=== PATIENT | male | born 1950 | race Caucasian/White ===

== ENCOUNTER 2023-06-05 09:55 | Outpatient (OUT) | payer MEDICARE, SELFPAY ==
[2023-06-05 12:44] LABS: Alanine Aminotransferase 24 U/L (16-63); Albumin Globulin Ratio 1.3; Alkaline Phosphatase 64 U/L (46-116); Aspartate Amino Transferase 17 U/L (15-37); Bilirubin Direct 0.1 mg/dL (0.0-0.2); Bilirubin Total 0.4 mg/dL (0.2-1.0); Chol HDL Ratio 2.3; Cholesterol 109 mg/dL (<=200); HDL Cholesterol 47 mg/dL (40-60); LDL Cholesterol Calculated 45.4 mg/dL; Triglycerides 83 mg/dL (<=150); VLDL CHOLESTEROL 16.6 mg/dL
== END 2023-06-05 09:56 | disposition home or self-care (01) ==
LOC: LAB 09:58
PROVIDERS: PCP Internal Medicine; Visit Provider Internal Medicine Interventional Cardiology
DX: E78.2 Mixed hyperlipidemia (principal)
CPT/HCPCS: 36415; 80061; 80076

== ENCOUNTER 2023-06-05 10:10 | Outpatient (OUT) | payer MEDICARE, SELFPAY ==
[2023-06-05 12:27] LABS: Anion Gap 12.9; BUN Creatinine Ratio 17.9; Calcium 8.7 mg/dL (8.5-10.1); Carbon Dioxide 25.2 mmol/L (21.0-32.0); Chloride 105 mmol/L (98-107); Estimated GFR (African America 44 (>=60); Estimated GFR (Non-African Ame 36 (>=60); Glucose 142 mg/dL (74-106); Potassium 5.1 mmol/L (3.5-5.1); Sodium 138 mmol/L (136-145)
== END 2023-06-05 10:11 | disposition home or self-care (01) ==
LOC: LAB 10:11
PROVIDERS: PCP Internal Medicine
DX: E78.2 Mixed hyperlipidemia (principal); N41.1 Chronic prostatitis
CPT/HCPCS: 36415; 80048; 80061; 80076

== ENCOUNTER 2023-07-19 08:06 | Outpatient (OUT) | payer MEDICARE, SELFPAY ==
[2023-07-19 08:50] LABS: Basophils Absolute Auto 0.1 10^3/uL (0.0-0.1); Basophils Percent Auto 1.2 % (0.2-2.0); Eosinophils Absolute Auto 0.5 10^3/uL (0.0-0.7); Eosinophils Percent Auto 5.9 % (0.9-7.0); Hematocrit 41.6 % (42.0-54.0); Hemoglobin 13.3 g/dL (14.0-18.0); Immature Granulocytes Abs Auto 0.03 10^3/uL (0.00-0.03); Immature Granulocytes Pct Auto 0.4 % (0.0-0.5); Lymphocytes Absolute Auto 2.3 10^3/uL (1.2-3.8); Mean Corpuscular Hemoglobin 30.1 pg (25.9-34.0); Mean Corpuscular Volume 94.1 fL (80.0-94.0); Mean Platelet Volume 11.2 fL (9.5-13.5); Monocytes Absolute Auto 0.8 10^3/uL (0.3-0.8); Monocytes Percent Auto 9.3 % (1.7-12.0); Neutrophils Absolute Auto 4.5 10^3/uL (1.4-6.5); Neutrophils Percent Auto 55.2 % (43.0-75.0); Platelet Count 188 10^3/uL (150-450); Red Blood Count 4.42 10^6/uL (4.70-6.10); Red Cell Distribution Width 14.7 % (11.0-15.0); White Blood Count 8.2 10^3/uL (4.0-11.0)
[2023-07-19 08:53] LABS: Microalbumin Urine Random 2.5 mg/dL (<=30.0)
[2023-07-19 09:01] LABS: Estimated Average Glucose 131 mg/dL; Glycohemoglobin A1C 6.2 % (4.5-6.2)
[2023-07-19 10:23] LABS: Alanine Aminotransferase 23 U/L (16-63); Anion Gap 7.6; BUN Creatinine Ratio 21.8; Calcium 8.6 mg/dL (8.5-10.1); Carbon Dioxide 24.6 mmol/L (21.0-32.0); Chloride 109 mmol/L (98-107); Chol HDL Ratio 2.9; Cholesterol 116 mg/dL (<=200); Estimated GFR (African America 50 (>=60); Estimated GFR (Non-African Ame 41 (>=60); Glucose 156 mg/dL (74-106); HDL Cholesterol 40 mg/dL (40-60); Potassium 5.2 mmol/L (3.5-5.1); Sodium 136 mmol/L (136-145); Triglycerides 151 mg/dL (<=150); VLDL CHOLESTEROL 30.2 mg/dL
== END 2023-07-19 08:07 | disposition home or self-care (01) ==
LOC: LAB 08:17
PROVIDERS: PCP Internal Medicine; Visit Provider Internal Medicine
DX: E11.65 Type 2 diabetes mellitus with hyperglycemia (principal); E78.2 Mixed hyperlipidemia; Z79.899 Other long term (current) drug therapy; I25.10 Atherosclerotic heart disease of native coronary artery without angina pectoris; I10 Essential (primary) hypertension
CPT/HCPCS: 36415; 80048; 80061; 82043; 83036; 84460; 85025

== ENCOUNTER 2023-08-30 08:39 | Outpatient (OUT) | payer MEDICARE, SELFPAY ==
[2023-08-30 09:12] LABS: Basophils Absolute Auto 0.1 10^3/uL (0.0-0.1); Basophils Percent Auto 1.1 % (0.2-2.0); Eosinophils Absolute Auto 0.5 10^3/uL (0.0-0.7); Eosinophils Percent Auto 6.4 % (0.9-7.0); Hematocrit 39.8 % (42.0-54.0); Hemoglobin 12.9 g/dL (14.0-18.0); Immature Granulocytes Abs Auto 0.02 10^3/uL (0.00-0.03); Immature Granulocytes Pct Auto 0.3 % (0.0-0.5); Lymphocytes Absolute Auto 2.1 10^3/uL (1.2-3.8); Lymphocytes Percent Auto 29.1 % (20.5-60.0); Mean Corpuscular HGB Conc 32.4 g/dL (29.9-35.2); Mean Corpuscular Hemoglobin 30.4 pg (25.9-34.0); Mean Corpuscular Volume 93.6 fL (80.0-94.0); Mean Platelet Volume 11.7 fL (9.5-13.5); Monocytes Absolute Auto 0.7 10^3/uL (0.3-0.8); Monocytes Percent Auto 9.9 % (1.7-12.0); Neutrophils Absolute Auto 3.8 10^3/uL (1.4-6.5); Neutrophils Percent Auto 53.2 % (43.0-75.0); Platelet Count 184 10^3/uL (150-450); Red Blood Count 4.25 10^6/uL (4.70-6.10); Red Cell Distribution Width 13.5 % (11.0-15.0); White Blood Count 7.2 10^3/uL (4.0-11.0)
[2023-08-30 09:22] LABS: Anion Gap 11.6; BUN Creatinine Ratio 21.1; Calcium 8.9 mg/dL (8.5-10.1); Carbon Dioxide 28.9 mmol/L (21.0-32.0); Chloride 104 mmol/L (98-107); Estimated GFR (African America 55 (>=60); Estimated GFR (Non-African Ame 45 (>=60); Glucose 145 mg/dL (74-106); Potassium 4.5 mmol/L (3.5-5.1); Sodium 140 mmol/L (136-145)
[2023-08-30 10:40] LABS: Prostate Specific Antigen Scrn 2.41 ng/mL (<=4.00)
[2023-09-06 21:08] LABS: Free Testosterone(Direct) 4.6 pg/mL (6.6-18.1); Testosterone 374 ng/dL (264-916)
== END 2023-08-30 08:40 | disposition home or self-care (01) ==
LOC: LAB 08:40
PROVIDERS: PCP Internal Medicine
DX: N40.1 Benign prostatic hyperplasia with lower urinary tract symptoms (principal); N41.1 Chronic prostatitis; Z12.5 Encounter for screening for malignant neoplasm of prostate
CPT/HCPCS: 36415; 80048; 84402; 84403; 85025; G0103

== ENCOUNTER 2023-09-04 10:06 | Outpatient (OUT) | payer MEDICARE, SELFPAY ==
--- NOTE | 2023-09-04 10:13 | CT_ITS ---
The [address] [address] Patient Name: TRAE MONROE MRN: [facility]:[id number] date: 1950 Sex: M Assigned Patient Location: CT Current Patient Location: CT Accession/Order Number: [id number] Exam Date: 09/04/2023 10:20 Report Date: 09/04/2023 11:06 At the request of: NON-STAFF PHYSICIAN Procedure: CT abdomen pelvis wo con EXAM: CT abdomen pelvis wo con HISTORY: Gross Hematuria COMPARISON: None. TECHNIQUE: Axial soft tissue windows of the abdomen and pelvis with coronal and sagittal reformats. CT dose reduction technique was used including Automated Exposure Control. Findings: Lack of intravenous contrast limits evaluation. Stable 0.5 cm right middle lobe nodule when compared to the CT chest 03/07/2023. There is also a small stable region of nodular tree-in-bud opacification within the right lower lobe. ABDOMEN: The liver, spleen, and adrenal glands are unremarkable. Stones within the gallbladder. Mild atrophy of the pancreas with regions of fatty replacement. Mild nonspecific bilateral perinephric fat stranding. No renal stones or collecting system dilatation. The bilateral ureters are nondilated. Evaluation of the bowel is limited given the absence of oral contrast. There are colonic diverticula. No bowel obstruction. The appendix is not definitely identified. The aorta is normal caliber. Moderate atherosclerotic disease. No enlarged abdominal lymph nodes or free abdominal fluid. Tiny fat-containing umbilicus hernia. Pelvis: The prostate is mildly enlarged and there is hypertrophy of the median lobe exerting mild mass effect upon the posterior bladder wall. No bladder calculi. No enlarged pelvic lymph nodes or free pelvic fluid. No aggressive sclerotic or lytic osseous lesions. Mild multilevel degenerative spondylosis. Mild bilateral hip joint osteoarthritis. CT/CT abdomen pelvis wo con IMPRESSION: 1. Cholelithiasis. 2. Diverticulosis. 3. Mildly enlarged prostate. Electronically authenticated by: SLOAN SOSA Date: 09/04/2023 11:06
== END 2023-09-04 10:07 | disposition home or self-care (01) ==
LOC: CT 10:06
PROVIDERS: PCP Internal Medicine
DX: R91.1 Solitary pulmonary nodule (principal); R31.0 Gross hematuria; K80.20 Calculus of gallbladder without cholecystitis without obstruction; N40.0 Benign prostatic hyperplasia without lower urinary tract symptoms; K57.30 Diverticulosis of large intestine without perforation or abscess without bleeding
CPT/HCPCS: 71250; 74176

== ENCOUNTER 2023-09-04 10:07 | Outpatient (OUT) | payer MEDICARE, SELFPAY ==
--- NOTE | 2023-09-04 10:14 | CT_ITS ---
The [address] [address] Patient Name: TRAE MONROE MRN: [id number] date: 1950 Sex: M Assigned Patient Location: CT Current Patient Location: CT Accession/Order Number: [id number] Exam Date: 09/04/2023 10:20 Report Date: 09/04/2023 11:25 At the request of: ARIAN KEARNS Procedure: CT chest wo con EXAM: CT chest wo con HISTORY: Pulmonary Nodule R91.1 COMPARISON: CT chest 03/07/2023. TECHNIQUE: Axial soft tissue and lung windows of the chest with coronal and sagittal reformats. CT dose reduction technique was used including Automated Exposure Control. Findings: Lack of intravenous contrast limits evaluation. Postsurgical changes consistent with prior median sternotomy. The heart is nonenlarged. There are coronary artery with aortic annular and valvular calcifications. No pericardial effusion. The thoracic aorta is normal caliber with mild to moderate atherosclerotic disease. The pulmonary arteries are nondilated. The central airways are patent. No pneumothorax. No pleural effusion. No focal consolidation. Redemonstrated are couple scattered benign calcified granulomas. Stable right middle lobe 0.7 cm nodule abutting the pleura. Redemonstrated are bilateral lower lobes nodule nodular tree in bud opacities. No enlarged mediastinal, hilar, axillary or supraclavicular lymph nodes. There is stones within the gallbladder. No aggressive sclerotic or lytic osseous lesions. Mild multilevel degenerative thoracic spondylosis. CT/CT chest wo con IMPRESSION: 1. Stable right middle lobe pulmonary nodule. 2. Redemonstrated are nodular tree-in-bud opacities within the bilateral lower lobes concerning for bronchiolitis. Nodule follow-up guidelines: In an average-risk patient, a solid lung nodule between 6 and 8 mm requires a [address] and, if stable, a 24 month exam to ensure two years of stability. In a high-risk patient, this requires a followup chest CT in 6 months and, if stable, a 24 month exam to ensure 2 years of stability. Electronically authenticated by: SLOAN SOSA Date: 09/04/2023 11:25
== END 2023-09-04 10:08 | disposition home or self-care (01) ==
LOC: CT 10:07
PROVIDERS: PCP Internal Medicine; Visit Provider Internal Medicine
DX: R91.1 Solitary pulmonary nodule (principal)
CPT/HCPCS: 71250

== ENCOUNTER 2023-10-11 09:25 | Outpatient (OUT) | payer MEDICARE, SELFPAY ==
[2023-10-11 09:57] LABS: Basophils Absolute Auto 0.1 10^3/uL (0.0-0.1); Basophils Percent Auto 1.5 % (0.2-2.0); Eosinophils Absolute Auto 0.4 10^3/uL (0.0-0.7); Hematocrit 41.7 % (42.0-54.0); Hemoglobin 13.5 g/dL (14.0-18.0); Immature Granulocytes Abs Auto 0.02 10^3/uL (0.00-0.03); Immature Granulocytes Pct Auto 0.3 % (0.0-0.5); Lymphocytes Percent Auto 27.6 % (20.5-60.0); Mean Corpuscular HGB Conc 32.4 g/dL (29.9-35.2); Mean Corpuscular Volume 95.6 fL (80.0-94.0); Mean Platelet Volume 11.6 fL (9.5-13.5); Monocytes Absolute Auto 0.7 10^3/uL (0.3-0.8); Monocytes Percent Auto 9.7 % (1.7-12.0); Neutrophils Percent Auto 55.9 % (43.0-75.0); Platelet Count 174 10^3/uL (150-450); Red Blood Count 4.36 10^6/uL (4.70-6.10); Red Cell Distribution Width 12.7 % (11.0-15.0); White Blood Count 7.2 10^3/uL (4.0-11.0)
[2023-10-11 10:12] LABS: INR 0.95; Partial Thromboplastin Time 27.1 sec (22.3-36.2); Prothrombin Time 10.1 sec (9.0-11.6)
[2023-10-11 11:02] LABS: Alanine Aminotransferase 10 U/L (16-63); Albumin Globulin Ratio 1.2; Albumin Level 3.9 g/dL (3.4-5.0); Alkaline Phosphatase 63 U/L (46-116); Anion Gap 11.3; Aspartate Amino Transferase 16 U/L (15-37); BUN Creatinine Ratio 15.6; Bilirubin Total 0.5 mg/dL (0.2-1.0); Calcium 9.2 mg/dL (8.5-10.1); Carbon Dioxide 29.3 mmol/L (21.0-32.0); Chloride 104 mmol/L (98-107); Estimated GFR (African America 57 (>=60); Estimated GFR (Non-African Ame 47 (>=60); Globulin 3.2 g/dL; Glucose 132 mg/dL (74-106); Potassium 4.6 mmol/L (3.5-5.1); Sodium 140 mmol/L (136-145); Total Protein 7.1 g/dL (6.4-8.2)
== END 2023-10-11 09:26 | disposition home or self-care (01) ==
LOC: LAB 09:27
PROVIDERS: PCP Internal Medicine
DX: N40.1 Benign prostatic hyperplasia with lower urinary tract symptoms (principal); N32.9 Bladder disorder, unspecified; N32.89 Other specified disorders of bladder
CPT/HCPCS: 36415; 80053; 85025; 85610; 85730; 87086

== ENCOUNTER 2023-11-19 10:22 | Outpatient (OUT) | payer MEDICARE, SELFPAY ==
--- NOTE | 2023-11-19 10:27 | MR_ITS ---
[address] [address] Patient Name: TRAE MONROE MRN: [facility]:[id number] date: 1950 Sex: M Assigned Patient Location: MRI Current Patient Location: MRI Accession/Order Number: [id number] Exam Date: 11/19/2023 10:35 Report Date: 11/19/2023 11:42 At the request of: ИВАН STARR Procedure: MR lumbar spine wo con EXAMINATION: MR lumbar spine wo con HISTORY: m48.062 spinal stenosis, M54.17 radiculopathy COMPARISON: No relevant comparison available. TECHNIQUE: A variety of imaging planes and parameters were utilized for visualization of suspected pathology. FINDINGS: For the purposes of numbering, sagittal T2 image # 8 extends from the T10-T11 vertebral body superiorly to the S2-S3 level inferiorly. PARASPINAL AREA: Normal with no visible mass. BONES: No acute fracture or bone edema. Moderate degenerative spondylosis. 3 mm anterolisthesis of L5 on S1. Posterior decompression L2-L3 CORD/CAUDA EQUINA: Normal caliber, contour, and signal intensity. DISC LEVELS: 12-L1: No significant disc/facet abnormality, spinal stenosis, or foraminal stenosis. L1-L2: No significant disc/facet abnormality, spinal stenosis, or foraminal stenosis. L2-L3: Disc desiccation. Moderate diffuse disc protrusion extending up to 3 mm. Ligamentum flavum hypertrophy and facet osteoarthropathy. No central canal stenosis. Mild bilateral foraminal stenosis. L3-L4: Disc desiccation. Mild to moderate diffuse disc protrusion extending 2 to 3 mm. Posterior decompression. Bilateral facet osteoarthropathy. Moderate to severe right and moderate left foraminal stenosis L4-L5: Disc desiccation. Mild to moderate diffuse disc protrusion extending 2 to 3 mm. Extensive ligamentum flavum hypertrophy and facet osteoarthropathy. Moderate trefoil narrowing of the central canal. L5-S1: 3 mm anterolisthesis of L5 on S1 bilateral facet osteoarthropathy and ligamentum flavum hypertrophy. No central or foraminal stenosis MR/MR lumbar spine wo con IMPRESSION: Degenerative changes resulting in central and foraminal stenosis at multiple levels as detailed above Electronically authenticated by: CHARLENE MEDEIROS Date: 11/19/2023 11:42
--- OUTSIDE RECORDS SUMMARY | 2023-11-19 10:32 | XMS_ITS | CCD ---
Author Name Unknown Address [address] [place] [address] Organization [facility] Care Team Providers Care Advertising Associate Name Role Phone LUPIS DENNIS Admitting Unavailable MAGYJINMIGUEL ANGEL, LUPIS Schuler Attending Unavailable SOM, CRISTOBAL Referring Unavailable SOM, CRISTOBAL Primary Care Unavailable SOM, CRISTOBAL Primary Care Physician [phone] Som, Cristobal Unavailable SOM, DR DON Admitting Unavailable BALL, DR DON Attending Unavailable BALL, DR DON Primary Care Unavailable BALL, DR DON Consulting Unavailable MOUKARBEL, DR PRATER Admitting Unavailable MOUKARBEL, DR PRATER Attending Unavailable BALL, DR DON Primary Care Unavailable MOUKARBEL, DR PRATER Consulting Unavailable MISC, DR MOSLEY Admitting Unavailable MISC, DR MOSLEY Attending Unavailable BALL, DR DON Primary Care Unavailable MISC, DR MOSLEY Consulting Unavailable SOM, DR DON Admitting Unavailable BALL, DR DON Attending Unavailable BALL, DR DON Primary Care Unavailable BALL, DR DON Admitting Unavailable BALL, DR DON Attending Unavailable BALL, DR DON Primary Care Unavailable BALL, DR DON Primary Care Unavailable PAY ., DR JONES Admitting Unavailable PAY ., DR JONES Attending Unavailable KAYLA RIZO Consulting Unavailable MISC, DR MOSLEY Admitting Unavailable MISC, DR MOSLEY Attending Unavailable BALL, DR DON Primary Care Unavailable MISC, DR MOSLEY Consulting Unavailable SOM, DR DON Admitting Unavailable BALL, DR DON Attending Unavailable BALL, DR DON Primary Care Unavailable BALL, DR DON Consulting Unavailable SLOAN SOSA Consulting Unavailable MISC, DR MOSLEY Admitting Unavailable MISC, DR MOSLEY Attending Unavailable BALL, DR DON Primary Care Unavailable MISC, DR MOSLEY Consulting Unavailable DIONY ARIZA Attending Unavailable SINCHALO, DIONY Referring Unavailable MOUKARBMOI FOOTE Attending Unavailable SINDHWANI, DIONY Attending Unavailable GRUSSHARPREET Attending Unavailable SINDHWANI, DIONY Attending Unavailable SINDHWANI, DIONY Admitting Unavailable SINDHWANI, DIONY Attending Unavailable Jono, Margareth Attending Unavailable TRINY De La Cruz Admitting Unavailabl e SOM, CRISTOBAL Referring Unavailable TRINY De La Cruz Margareth Admitting Unavailabl e SOM, CRISTOBAL Referring Unavailable Jono, Margareth Attending Unavailable TRINY De La Cruz Margareth Admitting Unavailabl e BALL, CRISTOBAL Referring Unavailable Jono, Margareth Attending Unavailable SOM, CRISTOBAL Referring Unavailable De La Cruz, Margareth Admitting Unavailable Jono, Margareth Attending Unavailable Himanshu Wright Attending Unavailable Himanshu Wright Referring Unavailable MD Himanshu Wright Admitting Unavailable MD Tutu Guzman Admitting Unavailable Tutu Guzman Attending Unavailable Tutu Guzman Referring Unavailable Allergies Allergy Classification Reported Allergen(s) Allergy Type Date of Onset Reaction(s) Facility (3 sources) black walnut pollen extract; Translations: [[id number] REDUCTASE INHIBITORS] Drug Allergy 01-27-2013 [facility] Repository (9 sources) HMG-CoA reductase inhibitor; Translations: [statins] Drug allergy muscle ache [facility] (10 sources) hydrALAZINE; Translations: [hydralazine] Drug Allergy 07-25-2022 palpatations [facility] Medications Current Medications Medication Drug Class(es) Dates Sig (Normalized) Sig (Original) Tylenol (10 sources) Start: 03-25-2013 Tylenol 500 mg , PRN as needed for pain, Refills(s) 0 Start Date: 03/25/13 Status: Ordered Start: 03-25-2013 Tylenol 500 mg , PRN PRN as needed for pain, Refills(s) 0 Start Date: 03/25/13 Status: Ordered take 1 tablet by aide th every six hours Tylenol Extra Strength 500 MG 1 tablet as needed Orally every 6 hrs Active Alpha Lipoic Acid 600 mg oral capsule (8 sources) Start: 10-05-2021 take 1 capsule by mouth once daily Alpha Lipoic Acid 600 mg oral capsule 600 mg = 1 cap(s), Oral, Daily, Refills(s) 0 Start Date: 10/05/21 Status: Ordered amLODIPine 5 mg oral tablet (20 sources) Dihydropyridine Calcium Channel Diana Start: 05-18-2020 take 5 mg by mouth once daily Norvasc 5 mg, Oral, Daily, Refills(s) 0 Start Date: 05/18/20 Status: Ordered Antibiotic (2 sources) Start: 09-06-2023 Antibiotic Antibiotic Start Date: 09/06/23 Status: Ordered ascorbic acid 500 mg oral tablet (4 sources) Vitamin C Start: 09-06-2023 take 500 mg by mouth once daily Vitamin C 500 mg, Oral, Daily, Refills(s) 0 Start Date: 09/06/23 Status: Ordered take 1 tablet by aide th every twenty-four hours Vitamin C 1000 MG 1 tablet Orally Once a day Active Aspirin (20 sources) Platelet Aggregation Inhibitor, Nonsteroidal Anti-inflammatory Drug Start: 03-25-2013 aspirin 81 mg, Da hanna, Refills(s) 0 Start Date: 03/25/13 Status: Ordered take 1 tablet by aide th every twenty-four hours Aspirin 81 MG 1 tablet Orally Once a day Active Calcium + D 315-200 MG-UNIT (12 sources) take 1 tablet by mouth twice daily Calcium + D 315-200 MG-UNIT 1 tablet Orally Twice a day Active calcium carbonate 1500 mg oral tablet (8 sources) Start: 2019 take 1 tablet by mouth once daily calcium (as carbonate) 600 mg oral tablet 600 mg = 1 tab(s), Oral, Daily, Refills(s) 0 Start Date: 05/18/20 Status: Ordered [facility] - (2 sources) [facility] - as directed Orally Active cyclobenzaprine hydrochloride 10 mg oral tablet (4 sources) Muscle Relaxant Start: 2021 take 1 tablet by mouth three times daily as needed for muscle spasms cyclobenzaprine 10 mg Tab 10 mg = 1 tab(s), Oral, TID, PRN for spasm, # 30 tab(s), Refills(s) 0, Pharmacy: [facility]/pharmacy #[id number], 182.9, cm, 11/08/22 15:17:00 EST, Height/Length Dosing, 113.4, kg, 12/29/21 13:07:00 EST, Weight Dosing Start Date: 11/08/22 Status: Ordered diclofenac sodium 10 mg/ml topical cream (4 sources) Nonsteroidal Anti-inflammatory Drug Start: 2020 diclofenac sodium 1% topical cream Refill(s) 0 Start Date: 10/05/21 Status: Ordered 1 ml evolocumab 140 mg/ml prefilled syringe (20 sources) PCSK9 Inhibitor Start: 2020 inject 140 mg by subcutaneous injection every other week Repatha 140 mg/mL subcutaneous solution SubCutaneous, q2wk, Refills(s) 0 Start Date: 10/05/21 Status: Ordered ezetimibe 10 mg oral tablet (20 sources) Dietary Cholesterol Absorption Inhibitor Start: 2019 take 10 mg by mouth once daily Zetia 10 mg, Oral, Daily, Refills(s) 0 Start Date: 05/18/20 Status: Ordered FreeStyle Singh 14 Day [place] - (12 sources) FreeStyle Singh 14 Day [place] - as directed Active FreeStyle Singh 14 Day Sensor - (12 sources) FreeStyle Singh 14 Day Sensor - USE TO TEST BLOOD SUGAR DAILY for 28 Active FreeStyle Singh 14 Day Sensor - as directed Active gabapentin 100 mg oral capsule (4 sources) Anti-epileptic Agent Start: 11-08-2022 take 1 capsule by mouth at bedtime gabapentin 100 mg Cap 100 mg = 1 cap(s), Oral, Bedtime, # 30 cap(s), Refills(s) 0, Pharmacy: [facility]/pharmacy #[id number], 182.9, cm, 11/08/22 15:17:00 EST, Height/Length Dosing, 113.4, kg, 12/29/21 13:07:00 EST, Weight Dosing Start Date: 11/08/22 Status: Ordered insulin isophane / insulin, regular, human (20 sources) Insulin Start: 03-25-2013 Humulin 70/30 25-10 units, BIDAC, Refill(s) 0 Start Date: 03/25/13 Status: Ordered Start: 03-25-2013 Humulin 70/30 55-60 units, BIDAC, Refill(s) 0 Start Date: 03/25/13 Status: Ordered HumuLIN 70/30 (7 0-30) 100 UNIT/ML INJECT 60 UNITS UNDER THE SKIN BEFORE BREAKFAST AND EVENING MEAL Active HumuLIN 70/30 (7 0-30) 100 UNIT/ML as directed Subcutaneous Active Lisinopril (20 sources) Angiotensin Converting Enzyme Inhibitor Start: 03-25-2013 lisinopril 10 mg, Da hanna, Refills(s) 0 Start Date: 03/25/13 Status: Ordered Lisinopril 10 mg TAKE 1 TABLET DAILY Active loratadine 10 mg oral tablet (2 sources) take 1 tablet by mouth every twenty-four hours Loratadine 10 MG 1 tablet Orally Once a day Active PreserVision AREDS (8 sources) Start: 021 take 1 capsule by mouth once daily PreserVision AREDS 1 cap(s), Oral, Daily, Refill(s) 0 Start Date: 10/05/21 Status: Ordered 12 hr ranolazine 500 mg extended release oral tablet (20 sources) Anti-anginal Start: 020 take 500 mg by mouth twice daily Ranexa 500 mg, Oral, BID, Refills(s) 0 Start Date: 05/18/20 Status: Ordered tadalafil 5 mg oral tablet (6 sources) Phosphodiesterase 5 Inhibitor take 1 tablet by mouth every twenty-four hours Cialis 5 MG 1 tablet as needed Orally Once a day Active Testosterone (12 sources) Androgen Start: 023 testosterone 2% transdermal cream See Instructions, apply topically daily, Refills(s) 0 Start Date: 12/12/22 Status: Ordered AndroGel Pump 20 .25 MG/ACT (1.62%) 1 pump to skin in the morning to shoulder, upper arms or abdomen Transdermal Once a day Active thioctic acid 200 mg oral capsule (2 sources) take 1 capsule by mouth every twelve hours Alpha Lipoic Acid 200 MG 1 capsule Orally twice a day Active Tylenol Extra Strength 500 MG (10 sources) take 1 tablet by mouth every six hours as needed Tylenol Extra Strength 500 MG 1 tablet as needed Orally every 6 hrs Active {20 (nirmatrelvir 150 MG Oral Tablet) / 10 (ritonavir 100 MG Oral Tablet) } Pack [Paxlovid 5-Day] (1 source) Start: 03-19-2023 Paxlovid (300/100) 20 x 150 MG & 10 x 100MG 1 Nirmatrelvir + 1 Ritonavir Orally Twice a day for 5 days Instructed to take 150mg + 100mg tablet twice daily for GFR March, Active Completed/Discontinued Medications Medication Drug Class(es) Dates Sig (Normalized) Sig (Original) predniSONE 10 mg oral tablet (20 sources) Start: 05-03-2020 predniSONE 10 MG 4 tablets a day for 3 days, 3 tablets a day for 3 days, 2 tablets a day for 3 days, 1 tablet a day for 3 days Orally Once a day for 12 day(s) Apr, Not-Taking/PRN Problems Active Problems Problem Classification Problem Date Documented Date Episodic/Chronic Abdominal pain (2 sources) Pelvic and perineal pain; Translations: [Pelvic and perineal pain] Onset: 08-14-2022 Episodic Biliary tract disease (12 sources) Cholelithiasis without obstruction; Translations: [Calculus of gallbladder without cholecystitis without obstruction] Episodic Cardiac dysrhythmias (12 sources) Intermittent palpitations; Translations: [Palpitations] Episodic Chronic kidney disease (8 sources) Chronic kidney disease 05-18-2020 Chronic Chronic kidney disease (2 sources) Chronic kidney disease; Translations: [Chronic kidney disease, stage 3a] Onset: 06-04-2023 Chronic obstructive pulmonary disease and bronchiectasis (15 sources) Mucopurulent chronic bronchitis; Translations: [Mucopurulent chronic bronchitis] Onset: 11-27-2022 Chronic Coronary atherosclerosis and other heart disease (20 sources) Angina pectoris; Translations: [History of myocardial infarction] Onset: 11-27-2022 05-18-2020 Chronic Deficiency and other anemia (8 sources) Anemia 05-18-2020 Episodic Diabetes mellitus with complications (20 sources) Disorder of kidney due to diabetes mellitus; Translations: [Type 2 diabetes mellitus with diabetic chronic kidney disease] Onset: 07-02-2022 Chronic Diabetes mellitus without complication (9 sources) Diabetes mellitus; Translations: [Type 2 diabetes mellitus without complications] Onset: 11-27-2022 05-18-2020 Chronic Disorders of lipid metabolism (20 sources) Hypercholesterolemia; Translations: [Mixed hyperlipidemia] Onset: 07-02-2022 05-18-2020 Chronic Essential hypertension (20 sources) Hypertensive disorder; Translations: [Essential hypertension] Onset: 07-02-2022 05-18-2020 Chronic Genitourinary symptoms and ill-defined conditions (19 sources) Giuseppe hematuria; Translations: [Gross hematuria] Onset: 09-03-2023 Episodic Heart valve disorders (8 sources) Irregular heart beat 05-18-2020 Episodic Hyperplasia of prostate (20 sources) Large prostate ; Translations: [Nocturia due to benign prostatic hypertrophy] Onset: 09-03-2023 05-18-2020 Chronic Hypertension with complications and secondary hypertension (1 source) Hypertensive chronic kidney disease with stage 1 through stage 4 chronic kidney disease, or unspecified chronic kidney disease; Translations: [HTN CKD W/STAGE 1-4 CKD/UNS CKD] Onset: 11-27-2022 Chronic Inflammation; infection of eye (except that caused by tuberculosis or sexually transmitteddisease) (20 sources) Conjunctivitis; Translations: [Unspecified conjunctivitis] Episodic Inflammatory conditions of male genital organs (2 sources) Chronic prostatitis; Translations: [Chronic prostatitis] Onset: 08-14-2022 Chronic Occlusion or stenosis of precerebral arteries (2 sources) Occlusion and stenosis of bilateral carotid arteries; Translations: [Occlusion and stenosis of bilateral carotid arteries] Onset: 06-04-2023 Chronic Osteoarthritis (16 sources) Osteoarthritis of knee; Translations: [Unilateral primary osteoarthritis, right knee] Onset: 11-18-2022 Chronic Other aftercare (12 sources) Long-term current use of insulin; Translations: [prison (current) use of insulin] Episodic Other and unspecified benign neoplasm (6 sources) Tubular adenoma of colon; Translations: [Tubular adenoma of colon] Episodic Other circulatory disease (11 sources) Carotid bruit; Translations: [Other specified symptoms and signs involving the circulatory and respiratory systems] Episodic Other circulatory disease (2 sources) Other specified symptoms and signs involving the circulatory and respiratory systems; Translations: [Right carotid bruit] Episodic Other diseases of veins and lymphatics (12 sources) Peripheral venous insufficiency; Translations: [Venous insufficiency (chronic) (peripheral)] Episodic Other diseases of veins and lymphatics (1 source) Venous insufficiency (chronic) (peripheral) Episodic Other endocrine disorders (6 sources) Testicular hypofunction; Translations: [TESTICULAR HYPOFUNCTION] Onset: 08-14-2022 Chronic Other lower respiratory disease (12 sources) Dyspnea on exertion; Translations: [Other forms of dyspnea] Episodic Other lower respiratory disease (12 sources) Nodule of lung; Translations: [Solitary pulmonary nodule] Episodic Other lower respiratory disease (11 sources) Solitary pulmonary nodule; Translations: [SOLITARY PULMONARY NODULE] Onset: 08-14-2022 Episodic Other male genital disorders (2 sources) Male erectile dysfunction, unspecified; Translations: [Male erectile dysfunction, unspecified] Onset: 08-14-2022 Chronic Other nervous system disorders (8 sources) Carpal tunnel syndrome 05-18-2020 Chronic Other nervous system disorders (1 source) Other chronic pain; Translations: [OTHER CHRONIC PAIN] Onset: 11-27-2022 Chronic Other non-traumatic joint disorders (12 sources) Arthralgia of the lower leg; Translations: [Pain in left knee] Episodic Other nutritional; endocrine; and metabolic disorders (8 sources) Body mass index 30+ - obesity; Translations: [Body mass index (BMI) 31.0-31.9, adult] Chronic Other nutritional; endocrine; and metabolic disorders (6 sources) Obesity caused by energy imbalance; Translations: [Other obesity due to excess calories] Chronic Other nutritional; endocrine; and metabolic disorders (1 source) Other obesity due to excess calories Chronic Other nutritional; endocrine; and metabolic disorders (1 source) Body mass index (BMI) 32.0-32.9, adult Chronic Other screening for suspected conditions (not mental disorders or infectious disease) (2 sources) Encounter for screening for malignant neoplasm of prostate; Translations: [Encounter for screening for malignant neoplasm of prostate] Onset: 09-03-2023 Episodic Peripheral and visceral atherosclerosis (12 sources) Arteriosclerosis of abdominal aorta; Translations: [Atherosclerosis of aorta] Chronic Residual codes; unclassified (8 sources) Sleep apnea 05-18-2020 Chronic Residual codes; unclassified (10 sources) Obstructive sleep apnea syndrome; Translations: [Obstructive sleep apnea (adult) (pediatric)] Chronic Residual codes; unclassified (3 sources) Obstructive sleep apnea (adult) (pediatric); Translations: [Obstructive sleep apnea] Chronic Residual codes; unclassified (8 sources) H/O cardiac surgery 05-18-2020 Episodic Residual codes; unclassified (2 sources) Pain, unspecified; Translations: [Pain, unspecified] Onset: 10-28-2023 Episodic Respiratory failure; insufficiency; arrest (adult) (8 sources) 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 airway pressure ventilation 05-18-2020 Chronic Rheumatoid arthritis and related disease (8 sources) Rheumatoid arthritis 05-18-2020 Chronic Spondylosis; intervertebral disc disorders; other back problems (20 sources) Lumbar spondylosis with myelopathy; Translations: [Other spondylosis with myelopathy, lumbar region] Onset: 11-23-2022 Chronic Sprains and strains (13 sources) Strain of right quadriceps muscle, fascia and tendon, initial encounter; Translations: [Strain of right quadriceps muscle, fascia and tendon, subsequent encounter] Onset: 11-23-2022 Episodic Substance-related disorders (20 sources) Tobacco user; Translations: [Nicotine dependence, cigarettes, in remission] Chronic Unclassified (2 sources) LOW BACK PAIN, UNSPECIFIED; Translations: [LOW BACK PAIN, UNSPECIFIED] Onset: 11-27-2022 Unclassified (1 source) CHRN KIDNEY DISEASE STG 3 UNSP; Translations: [CHRN KIDNEY DISEASE STG 3 UNSP] Onset: 11-27-2022 Unclassified (1 source) CONTACT W/AND (SUSP) EXPOS COVID-19; Translations: [CONTACT W/AND (SUSP) EXPOS COVID-19] Onset: 07-02-2022 Past or Other Problems Problem Classification Problem Date Documented Da te Episodic/Chronic Coronary atherosclerosis and other heart disease (2 sources) Presence of aortocoronary bypass graft; Translations: [Presence of aortocoronary bypass graft] Onset: 06-04-2023 Episodic Other aftercare (2 sources) 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; Translations: [MANAGER BIOSTATISTICS CURRENT USE OF INSULIN] Onset: 11-27-2022 Episodic Other aftercare (1 source) 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; Translations: [OTH SNF CURRENT DRUG THERAPY] Onset: 11-27-2022 Episodic Other aftercare (1 source) termite treater (current) use of aspirin; Translations: [MANAGER BIOSTATISTICS CURRENT USE OF ASPIRIN] Onset: 11-27-2022 Episodic Other lower respiratory disease (4 sources) Shortness of breath; Translations: [SHORTNESS OF BREATH] Onset: 07-31-2022 Episodic Screening and history of mental health and substance abuse codes (1 source) Personal history of nicotine dependence; Translations: [PERSONAL HISTORY OF NICOTINE DEPEND] Onset: 11-27-2022 Episodic Spondylosis; intervertebral disc disorders; other back problems (2 sources) Dorsalgia, unspecified; Translations: [Spinal stenosis, lumbar region without neurogenic claudication] Onset: 11-27-2022 Episodic Unclassified (1 source) LOW BACK PAIN, UNSPECIFIED; Translations: [LOW BACK PAIN, UNSPECIFIED] Onset: 11-23-2022 Viral infection (1 source) COVID-19 Results Test Name Value Interpretation Reference Range Facility Insurance Correspondence Off [facility] 11-13-2023 Insurance Correspondence Office [id number]. 00TIFF Normal [facility] [place] Physician Orderon 11-13-2023 Physician Order [id number]. 00TIFF Normal [facility] Consent for Treatmenton 10-19 Consent for Treatment [id number]. 00TIFF Normal [facility] Consultation Noteon 11-08-20 Consultation Note Patient: KATERINA PINEDA Age: 73 years Sex: Male : 1950 Associated Diagnoses: None Author: Margareth De La Cruz PA-C Subjective Chief complaint 11/08/2023 10:58 EST lower back pain . Patient is a 73-year-old male. He has a past medical history significant for lumbosacral stenosis and lumbosacral neuritis. He underwent most recently a bilateral L5-S1 transforaminal epidural steroid injection on 08/06/2023. This was repeated. Unfortunate, did not give him the relief he was looking for. Continues to have lower back pain with right buttock pain and right radiating leg pain but also admits to bilateral leg fatigue. He rates the discomfort a 6/10. This affects his ability to come to. This affects his quality of life. This affects his activities and affects his ability to do the things he wants to do. He is overall very bothered by this and wonders if there is anything else that he can possibly do to try to get some relief. Patient states that he recently had a cystoscopy for his prostate issues and he was told that he will most likely need to have another surgery on his prostate but right now, he does not need to do this. Historically, anti-inflammatory medications have not given him any significant relief. Therapy did not help. He wonders if he has other options as he really wants to get feeling better. Health Status Allergies: Allergic Reactions (Selected) Severity Not Documented HydrALAZINE- Palpatations. Statins- Muscle ache., Allergies (2) Active Reaction hydrALAZINE palpatations statins muscle ache Current medications: (Selected) Documented Medications Documented Alpha Lipoic Acid 600 mg oral capsule: 600 mg = 1 cap(s), Oral, Daily, Refills(s) 0 Antibiotic: Antibiotic Humulin 70/30: 25-10 units, BIDAC, Refill(s) 0 Norvasc: 5 mg, Oral, Daily, Refills(s) 0 PreserVision AREDS: 1 cap(s), Oral, Daily, Refill(s) 0 Ranexa: 500 mg, Oral, BID, Refills(s) 0 Repatha 140 mg/mL subcutaneous solution: SubCutaneous, q2wk, Refills(s) 0 Tylenol: 500 mg, PRN PRN as needed for pain, Refills(s) 0 Vitamin C: 500 mg, Oral, Daily, Refills(s) 0 Zetia: 10 mg, Oral, Daily, Refills(s) 0 aspirin: 81 mg, Daily, Refills(s) 0 calcium (as carbonate) 600 mg oral tablet: 600 mg = 1 tab(s), Oral, Daily, Refills(s) 0 lisinopril: 10 mg, Daily, Refills(s) 0 testosterone 2% transdermal cream: See Instructions, apply topically daily, Refills(s) 0 Problem list: All Problems History of heart attack / SNOMED CT 1568645127 / Confirmed Acute angina / SNOMED CT 510772471 / Confirmed Irregular heart beat / SNOMED CT 965009256 / Confirmed HTN (hypertension) / SNOMED CT 6122279236 / Confirmed High cholesterol / SNOMED CT 94235590 / Confirmed H/O heart bypass surgery / SNOMED CT 502343087 / Confirmed Apnea, sleep / SNOMED CT 551203157 / Confirmed CPAP (continuous positive airway pressure) dependence / SNOMED CT 3896211859 / Confirmed Enlarged prostate / SNOMED CT 058912627 / Confirmed Chronic kidney disease (CKD) / SNOMED CT 4059192780 / Confirmed Diabetes / SNOMED CT 354939661 / Confirmed Carpal tunnel syndrome / SNOMED CT 40378127 / Confirmed Anemia / SNOMED CT 587861038 / Confirmed Arthritis, rheumatoid / SNOMED CT 956495804 / Confirmed Obesity / ICD-9-CM 278.00 / Possible Obesity / SNOMED CT [id number] / Possible Objective Vital Signs 11/08/2023 10:58 EST Peripheral Pulse Rate 63 bpm Respiratory Rate 15 br/min Systolic Blood Pressure 136 mmHg Diastolic Blood Pressure 71 mmHg Mean Arterial Pressure, Cuff 93 mmHg General: Alert and oriented, No acute distress. Eye: Normal conjunctiva. HENT: Normocephalic, Normal hearing. Cardiovascular: No edema. Musculoskeletal Normal range of motion. Normal strength. 5/5 lower extremity strength other than right hip flexion, ADF and EHL 4/5 Positive right straight leg raise Integumentary: Warm, Dry, [place]. Neurologic: Alert, Oriented. Psychiatric: Cooperative, Appropriate mood & affect. Impression and Plan Patient is a 73-year-old male with a past medical history significant for lumbosacral stenosis and lumbosacral neuritis. Previous transforaminal epidural steroid injection did not give him relief like the others did. He now admits to different pain though. He is having right radiating leg pain but bilateral radiating leg fatigue. Historically, conservative treatments have failed. Anti-inflammatory medications have not helped. Physical therapy did not help. This affects his ambulatory status. This affects his quality of life. This affects his ability to do the things he wants to do. Based on the above-mentioned things, his pain pattern and his failure to improve as well as the significant pain he is experiencing I would recommend obtaining an updated lumbar MRI scan for possible other injection options versus surgical consultation depend on the results. Patient is agreeable. Follow-up after. LEONOR score: 36% Normal [facility] [place] Comment on above: Result Comment: Elec tronically Signed By: Margareth De La Cruz PA-C\.br\Date and Time Signed: 11/08/23 11:19 EST Office/Clinic Note-Physician on 11-08-2023 Office/Clinic Note-Physician [id number]. 00TIFF Normal [facility] [place] Patient Correspondenceon Patient Correspondence [id number]. 00TIFF Normal [facility] [place] Patient Correspondence [id number]#1. 00TIFF Normal [facility] [place] Patient History Officeon Patient History Office [id number]#1. 00TIFF Normal [facility] [place] Refillon 11-02-2023 Refill [id number] Trae Pineda 1950 M Date Provider Department Center 11/02/2023 MOISES SANON [facility] Second Fl No family history on file Reason for Visit and Comments: Med Refill [[id number]] Normal [facility] [place] ORon 10-28-2023 [place] IN OR INTRAOPERATIVE FLUOROSCOPY HISTORY: Pain IMPRESSION: Intraoperative fluoroscopy provided for the clinical service during during bilateral retrograde study. Duplicated left collecting system. Reference air kerma 4.952 mGy. A radiologist was not present during this procedure. Questions regarding this exam should be directed to the clinical service that performed the procedure. This dictation was generated for documentation purposes for the fluoroscopic equipment utilization. Electronically signed: Abhi Antonio. [facility] Comment on above: Order Comment: CYSTO RETROGRADE PYELOGRAM OPNOTEon 10-28-2023 OPNOTE -- Attestation signed by Diony Ariza MD at 10/30/2023 12:59 PM I was present for the entire procedure. CYSTOURETHROSCOPY, WITH RETROGRADE PYELOGRAM (B) Operative Note Date: 10/28/2023 Location: [facility] OR Name: Trae Pineda, : 1950, Diagnosis Pre-op Diagnosis * Benign prostatic hyperplasia with lower urinary tract symptoms, symptom details unspecified [N40.1] Post-op Diagnosis * Benign prostatic hyperplasia with lower urinary tract symptoms, symptom details unspecified [N40.1] Procedures Cystourethroscopy Bilateral retrograde pyelogram Exam under anesthesia Surgeons * Diony Ariza - Primary Procedure Summary Anesthesia: Monitor Anesthesia Care ASA: III Estimated Blood Loss: 2 mL Total IV Fluids: see anesthesia note Drains: * None in log * Specimens ID Source Type Tests Collected By Collected At Frozen? Priority Lab ID A Bladder washing Urine NON-LIFTER CYTOLOGY - CELLULAR EXAM Diony Ariza MD 10/28/23801 B Urine, Catheterized Urine NON-LIFTER CYTOLOGY - CELLULAR EXAM Diony Ariza MD 10/28/23801 Routine Description: BLADDER URINE FOR CULTURE Staff: Release Specialist: Shena Calvillo RN; Dafne Carrillo RN Relief Release Specialist: Kristian Cuevas RN Indications: Trae Pineda is an 73 y.o. male history of chronic prostatitis, elevated PSA, hypogonadism, and BPH with LUTS who presents with an episode of gross hematuria. 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 Patient is informed of the risks and benefits of the procedure and he agreed to proceed. Informed consent was obtained. Procedure Details: The patient was seen in the preoperative area. The risks, benefits, complications, treatment options, non-operative alternatives, expected recovery and outcomes were discussed with the patient. The possibilities of reaction to medication, pulmonary aspiration, injury to surrounding structures, bleeding, recurrent infection, the need for additional procedures, failure to diagnose a condition, and creating a complication requiring transfusion or operation were discussed with the patient. The patient concurred with the proposed plan, giving informed consent. The site of surgery was properly noted/marked if necessary per policy. The patient has been actively warmed in preoperative area. Preoperative antibiotics in the form of 2g IV ancef was administered. Venous thrombosis prophylaxis have been ordered including bilateral sequential compression devices. A 22Fr rigid cystoscope with 30 degree lens was inserted per the urethra. Cystourethroscopy revealed TURP defect in the prostatic urethra, crossbridging of bilobar prostatic lobes, bilobar prostatic hypertrophy, large intravesical median lobe. Bran-cystoscopy revealed no masses or tumors in the bladder. In the bladder bilateral ureteral orifices are seen in orthotopic positions. 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 There were no filling defects seen in the left collecting system. Then the 5Fr ureteral catheter was inserted into the right ureteral orifice, and a retrograde pyelogram was performed demonstrating J hooking of the right distal ureter, no filling defects in the right collecting system. The bladder was emptied and the cystoscope was removed. Digital rectal exam was performed which demonstrated a smooth 20-30 g prostate without nodules. Dr. Ariza was scrubbed and present for the entirety of the procedure. Findings: Cystourethroscopy: Crossbridging of bilobar prostatic lobes Bilobar prostatic hypertrophy Large intravesical median lobe TURP defect in prostatic urethra Left retrograde pyelogram: partial duplication of left ureter, no filling defects Right retrograde pyelogram: no filling defects Digital rectal exam: 20-30 g prostate, no nodules, smooth Complications: None; patient tolerated the procedure well. Disposition: PACU - hemodynamically stable. Condition: stable Plan: Patient will need bladder outlet procedure done for his crossbridging of bilobar prostatic lobes. Patient needs testosterone to estradiol ratio checked in 6 weeks and follow up in outpatient urology clinic. Diony Ariza Normal [facility] Orders Onlyon 10-28-2023 Orders Only [id number] Trae Pineda 1950 M Date Provider Department Center 10/28/2023 Peyman1-HUGO HUSTON [facility] Second Fl No family history on file Normal [facility] POCT GLUCOSE METER UNSOLICIT ED RESULTSon 10-28-2023 Glucose [Mass/Vol] 132 mg/dL High 70-105 [facility] Comment on above: Order Comment: Waive d Testing in the ED is performed under the ED CLIA certificate #[id number]. Result Comment: [facility] [place] Performed By: #### L [id number] ####[facility] ([facility] [place] [address] URINE CULTURE, STERILE COLLE CTIONon 10-28-2023 Bacteria identified Cx Nom (U) No growth at 48 hours Normal [facility] Comment on above: Order Comment: Pre-o p diagnosis:Benign prostatic hyperplasia with lower urinary tract symptoms, symptom details unspecified [N40.1] Performed By: #### L [id number] #### [facility] [address] [facility] [place] [address] GRAM STAIN RESULT Normal [facility] Comment on above: Order Comment: Pre-o p diagnosis:Benign prostatic hyperplasia with lower urinary tract symptoms, symptom details unspecified [N40.1] Result Comment: No p olymorphonuclear leukocytes seen No organisms seen Performed By: #### L [id number] #### [facility] [address] [place] [address] [id number] 10-18-2023 [id number] HOLD CIALIS X 48 HRS STOP 10/26 MEDICATIONS TO TAKE DAY OF SURGERY WITH SIP OF WATER AMLODIPNE COREG INSULIN HUMULIN 70/30 IF YOU ARE GOING HOME AFTER YOUR SURGERY OR PROCEDURE, FOR YOUR SAFETY, YOUR SURGERY WILL BE CANCELLED IF BOTH OF THE FOLLOWING ARE NOT AVAILABLE: An adult wood pile driver operator over the age of 18, that can receive information about your care after surgery, and drive you home. A responsible adult to stay with you for 24 hours in case of an emergency. Can be same as above. The highest risk of complications is within the first 24 hours after sedation/anesthesia. Nothing to eat or drink after midnight the night before surgery. This includes gum, candy, mints, and lozenges. No alcohol, marijuana, or tobacco products including vaping for 24 hours. Please brush your teeth; don't swallow the toothpaste or water. If you use dentures, wear them but do not use paste. Please leave any other removable dental hardware at home. Do not put in contact lenses. Do not wear perfume, make-up, nail indian, or lotions on the day of your surgery or procedure. Follow skin-prep/wipe instructions as below if required. Bring with you: *Insurance card *Photo ID *Medication list *Co-pay for visit/prescriptions If applicable: *Rescue inhalers *Green bracelet from lab *CPAP or BiPAP machine, if staying overnight *Any braces, splints, or equipment ordered preoperatively *Remote controls for implanted devices Leave at home: *Purse/Wallet/[place]- unless needed for co-pay *Cell phone (can leave with family/friend or place in locker if needed) *Jewelry (including piercings and wedding bands) *If not possible, ask the person who is waiting with you to keep them Children under the age of 12 will not be allowed into patient care areas. We will call you between 3pm and 4pm the day before your surgery to give you an arrival time. If you do not receive this call, have any questions, or need to make any changes, please call [phone]. Notify your surgeon if you develop any illness such as a cold, cough, fever, sore throat or vomiting between now and your surgery. Thank you for entrusting us with your care. [facility] Surgical Services Team Normal [facility] Refillon 10-01-2023 Refill [id number] Trae Pineda 1950 M Date Provider Department Center 10/01/2023 Danni-MOISES AGUIRRE [facility] Second Fl No family history on file Reason for Visit and Comments: Med Refill [[id number]] Normal [facility] Consent for Treatmenton 08-19 Consent for Treatment [id number]#1. 00TIFF [facility] Consultation Noteon 09-06-20 Consultation Note Patient: KATERINA PINEDA Age: 73 years Sex: Male : 1950 Associated Diagnoses: None Author: Margareth De La Cruz PA-C Subjective Chief complaint 09/06/2023 11:09 EDT lower back pain . Patient is a 73-year-old male. He has a past medical history significant for lumbosacral stenosis and lumbosacral neuritis. He now is also admitting to some right knee and ankle pain. He underwent most recently a bilateral L5-S1 transforaminal epidural steroid injection on 08/06/2023. This was repeated. Unfortunate, did not give him the relief he was looking for. He states that he got 90% for 2 weeks but nothing more significant than that. He does not admit to any left leg pain now at this time. Just the right side. He rates it a 1?7/10. He feels that some of it may be due to his knee though. He also wonders what possibly doing therapy as therapy in the past helped him. Historically, anti-inflammatory medications have not given him any significant relief. He does not want to get too aggressive as he is dealing with other medical conditions including prostatitis. Health Status Allergies: Allergic Reactions (Selected) Severity Not Documented HydrALAZINE- Palpatations. Statins- Muscle ache., Allergies (2) Active Reaction hydrALAZINE palpatations statins muscle ache Current medications: (Selected) Documented Medications Documented Alpha Lipoic Acid 600 mg oral capsule: 600 mg = 1 cap(s), Oral, Daily, Refills(s) 0 Antibiotic: Antibiotic Humulin 70/30: 25-10 units, BIDAC, Refill(s) 0 Norvasc: 5 mg, Oral, Daily, Refills(s) 0 PreserVision AREDS: 1 cap(s), Oral, Daily, Refill(s) 0 Ranexa: 500 mg, Oral, BID, Refills(s) 0 Repatha 140 mg/mL subcutaneous solution: SubCutaneous, q2wk, Refills(s) 0 Tylenol: 500 mg, PRN PRN as needed for pain, Refills(s) 0 Vitamin C: 500 mg, Oral, Daily, Refills(s) 0 Zetia: 10 mg, Oral, Daily, Refills(s) 0 aspirin: 81 mg, Daily, Refills(s) 0 calcium (as carbonate) 600 mg oral tablet: 600 mg = 1 tab(s), Oral, Daily, Refills(s) 0 lisinopril: 10 mg, Daily, Refills(s) 0 testosterone 2% transdermal cream: See Instructions, apply topically daily, Refills(s) 0 Problem list: All Problems History of heart attack / SNOMED CT 3902764298 / Confirmed Acute angina / SNOMED CT 162996791 / Confirmed Irregular heart beat / SNOMED CT 379017241 / Confirmed HTN (hypertension) / SNOMED CT 1304793588 / Confirmed High cholesterol / SNOMED CT 45922672 / Confirmed H/O heart bypass surgery / SNOMED CT 057393192 / Confirmed Apnea, sleep / SNOMED CT 212714035 / Confirmed CPAP (continuous positive airway pressure) dependence / SNOMED CT 7537955212 / Confirmed Enlarged prostate / SNOMED CT 620788314 / Confirmed Chronic kidney disease (CKD) / SNOMED CT 6756555121 / Confirmed Diabetes / SNOMED CT 504010003 / Confirmed Carpal tunnel syndrome / SNOMED CT 32787519 / Confirmed Anemia / SNOMED CT 676748596 / Confirmed Arthritis, rheumatoid / SNOMED CT 618680274 / Confirmed Obesity / ICD-9-CM 278.00 / Possible Obesity / SNOMED CT [id number] / Possible Objective Vital Signs 09/06/2023 11:09 EDT Peripheral Pulse Rate 59 bpm LOW Respiratory Rate 16 br/min Systolic Blood Pressure 163 mmHg HI Diastolic Blood Pressure 77 mmHg Mean Arterial Pressure, Cuff 106 mmHg General: Alert and oriented, No acute distress. Eye: Normal conjunctiva. HENT: Normocephalic, Normal hearing. Cardiovascular: No edema. Musculoskeletal Normal range of motion. Normal strength. 5/5 lower extremity strength other than bilateral hip flexion 4+/5 as well as bilateral ADF and EHL 5 minutes/5 Positive straight leg raise bilaterally Integumentary: Warm, Dry, [place]. Neurologic: Alert, Oriented. Psychiatric: Cooperative, Appropriate mood & affect. Impression and Plan Patient is a 73-year-old male with a past medical history significant for lumbar stenosis, lumbar neuritis, right knee pain and right leg pain/weakness. He states that the right leg is much more bothersome than the left leg. Unfortunate, recent repeat transforaminal epidural steroid injection did not give him the relief he was looking for. We had a long session with different options. At this time, he would like to be as conservative as possible as he is dealing with some other medical issues. He is having issues with prostatitis and he would like to get this taken care of first. He was possibly getting a requisition for physical therapy. I will give him this. We discussed the possibility of future repeat imaging and possible surgical consultation but at this time, he would like to start with the therapy. Follow-up in 2 months. Call clinic sooner if necessary. LEONOR score: 36% Normal [facility] [place] Comment on above: Result Comment: Elec tronically Signed By: Margareth De La Cruz PA-C\.br\Date and Time Signed: 09/06/23 11:33 EDT\.br\Electronically Co-Signed By: John Cannon DO.br\Date and Time Co-Signed: 09/09/23 10:07 EDT Office/Clinic Note-Physician on 09-06-2023 Office/Clinic Note-Physician [id number]#1.0 0TIFF Normal [facility] Orders Officeon 09-06-2023 Orders Office [id number]#1.0 0TIFF Normal [facility] [place] Patient Correspondenceon Patient Correspondence [id number] 0TIFF Normal [facility] [place] Patient Correspondence [id number]#1.0 0TIFF Normal [facility] [place] Patient History Officeon Patient History Office [id number]#1.0 0TIFF Normal [facility] [place] Follow-Upon 09-03-2023 Follow-Up [id number] Trae Pineda 1950 M Date Provider Department Center 09/03/2023 DIONY GREENBERG [facility] Second Fl No family history on file Level of Service:09705 [place] OFFICE/OUTPATIENT ESTABLISHED MOD MDM 30-39 MIN Reason for Visit and Comments: Hypogonadism [185] - Labs / flow PVR Normal [facility] Orders Onlyon 09-02-2023 Orders Only [id number] Trae Pineda 1950 M Date Provider Department Center 09/02/2023 871-SHY VALADEZ [place]Le[place] None No family history on file [facility] 36on 08-29-2023 36 This is a request fo r Dr. Ariza patient. Can you please assist with this refill? Normal [facility] Refillon 08-29-2023 Refill [id number] Trae Pineda 1950 M Date Provider Department Center 08/29/2023 MAMTA GREENBERGEET [facility] Second Fl No family history on file Reason for Visit and Comments: Med Refill [[id number]] Normal [facility] Consent for Procedure/Surger yon 08-06-2023 Consent for Procedure/Surgery [id number]#1. 00CD:127 Normal [facility] [place] Consent for Treatmenton 07-19 Consent for Treatment [id number]#1.0 0CD:127 [facility] Discharge Instructionson Discharge Instructions [id number]#1. 00CD:127 [facility] IntraOperative Documentson 0 08-06-2023 IntraOperative Documents [id number]#1. 00CD:127 [facility] Main OR Intraoperative Recor don 08-06-2023 Main OR Intraoperative Record IntraOp Document Type FTPM Summary Primary Physician: Himasnhu Wright MD Finalized Date/Time: 08/06/23 14:19:56 Pt. Name: MABELTRAE/Sex: 1950 Male Med Rec #: [id number] Physician: Himanshu Wright MD Financial #: [id number] Pt. Type: P Room/Bed: / Admit/Disch: 08/06/23 13:44:28 - Institution: Case Times FTPM Entry 1 Patient Times In Room 08/06/23 14:12:00 Out Room 08/06/23 14:20:00 Procedure Times Start 08/06/23 14:15:00 Stop 08/06/23 14:19:00 Anesthesia Times Last Modified By: Lula Hartley RN 08/06/23 14:19:39 Case Attendance FTPM Entry 1 Entry 2 Entry 3 Case Attendee Adriana ARMANDO, Himanshu Hartley RN, Deysi Herrera Role Performed Surgeon - Primary Release Specialist - Primary Scrub - Primary Time In 08/06/23 14:12:00 09/19/23 14:12:00 08/06/23 14:12:00 Time Out 08/06/23 14:20:00 08/06/23 14:20:00 08/06/23 14:20:00 Procedure TRANSFORAMINAL EPIDURAL TRANSFORAMINAL EPIDURAL TRANSFORAMINAL EPIDURAL STEROID STEROID STEROID INJECTIO(Bilateral) INJECTIO(Bilateral) INJECTIO(Bilateral) Comments Last Modified By: Lula Hartley RN, RN, Lula Tavares RN 08/06/23 14:19:44 08/06/23 14:19:44 08/06/23 14:19:44 Entry 4 Entry 5 Case Attendee Tai PEREZ, Leanne Dennis Role Performed Scrub - Relief Promotion Manager Time In 08/06/23 14:12:00 08/06/23 14:12:00 Time Out 08/06/23 14:20:00 08/06/23 14:20:00 Procedure TRANSFORAMINAL EPIDURAL TRANSFORAMINAL EPIDURAL STEROID STEROID INJECTIO(Bilateral) INJECTIO(Bilateral) Comments Last Modified By: Naeem PEREZ, Lula Tavares RN 08/06/23 14:19:44 08/06/23 14:19:44 Perioperative Protocols FTPM Pre-Care Text: Implements protective measures prior to operative or invasive procedure, confirms identity before the operative or invasive procedure, verifies operative procedure, surgical site, and laterality Entry 1 Procedure(s) TRANSFORAMINAL EPIDURAL Patient Identity Birthday, ID Band STEROID Verified (select at Check, Patient INJECTIO(Bilateral) least 2): Participation Consents / H and P HandP, Surgery/Procedure Operative Site Present Verified Consent Marking Verified Surgical Site Yes Laterality Verified Yes Verified Procedure Verified Yes Correct Patient Yes Position Verified Availability Equipment, Medication, Prep Dry Yes Verified (If X-ray Applicable) PreOp Antibiotic No Time Out Naeem PEREZ, Lula Schuler, Given Participants Deysi Casper Goldner MD, Tai Gay RN, Lia Mercedes Amy Time Out Complete 08/06/23 14:12:00 Outcomes Met? Yes Last Modified By: Lula Hartley RN 08/06/23 14:13:10 Post-Care Text: The patient is free from signs and symptoms of injury caused by extraneous objects Allergy Information FTPM Pre-Care Text: Verifies allergies Entry 1 Allergies Reviewed? Yes Allergies Reviewed Self/Patient With Outcomes Met? Yes Last Modified By: Lula Hartley RN 08/06/23 14:12:07 Post-Care Text: The patient received appropriate medication(s) safely administered during the perioperative period Surgical Procedures FTPM Entry 1 Procedure Description Procedure TRANSFORAMINAL EPIDURAL Modifiers Bilateral STEROID INJECTION Surgeon Description L5/S1 TFESI Primary Procedure Yes Primary Surgeon Himanshu Wright MD Start 08/06/23 14:15:00 Stop 08/06/23 14:19:00 Anesthesia Type None Surgical Service Pain Management Wound Class 1 - Clean Last Modified By: Lula Hartley RN 08/06/23 14:19:47 General Case Data FTPM Pre-Care Text: Classifies surgical wound, implements aseptic technique, initiates traffic control Entry 1 Case Information OR Pain Proc Room Case Level Level 2 Wound Class 1 - Clean Specialty Pain Management Preop Diagnosis M54.17 Postop Same As Preop Yes Postop Diagnosis M54.17 Outcomes Met? Yes Last Modified By: Lula Hartley RN 08/06/23 14:13:24 Post-Care Text: The patient is free from signs and symptoms of infection Skin Assessment (Pre Procedure) FTPM Pre-Care Text: Implements protective measures to prevent skin/ tissue injury due to thermal or mechanical sources Evaluates for signs and symptoms of physical injury to skin and tissue Entry 1 Skin Integrity Intact, [place], Warm, and Skin Abnormality No Dry Outcomes Met? Yes Last Modified By: Lula Hartley RN 08/06/23 14:12:15 Post-Care Text: The patient is free from signs and symptoms of injury caused by extraneous objects Patient Positioning FTPM Pre-Care Text: Identifies physical alterations that require additional precautions for procedure-specific positioning, verifies presence of prosthetics or corrective devices, positions the patient, evaluates the patient for signs and symptoms of injury as a result of positioning Entry 1 Procedure TRANSFORAMINAL EPIDURAL Body Position Prone STEROID INJECTIO(Bilateral) Feet Uncrossed? Yes Left Arm Position Resting at Side Right Arm Posi (more content not included)... Normal [facility] Main OR Preoperative Recordo n 09-19-2023 Main OR Preoperative Record Holding Area Document Type FTPM Summary Primary Physician: Himanshu Wright MD Finalized Date/Time: 08/06/23 14:02:18 Pt. Name: TRAE PINEDA /Sex: 1950 Male Med Rec #: [id number] Physician: Himanshu Wright MD Financial #: [id number] Pt. Type: P Room/Bed: / Admit/Disch: 08/06/23 13:44:28 - Institution: Case Times Holding FTPM Pre-Care Text: Verifies consent for planned procedure, identifies individual values and wishes concerning care, includes family members in perioperative teaching Secures patient's records' belongings, and valuables, maintains patient's dignity and privacy, and maintains patient confidentiality Entry 1 In Holding 08/06/23 13:59:00 Outcomes Met? Yes Last Modified By: Isa Romero RN 08/06/23 13:59:59 Post-Care Text: The patient participates in decisions affecting his or her perioperative plan of care The patient's right to privacy is maintained Surgery Checklist FTPM Entry 1 Patient Birthday, ID Band Procedure History and Physical, Identification: Check, Patient Verification: Surgical Consent, With Participation Patient NPO after Midnight: n/a Date/Time: 08/06/23 12:00:00 Results Reviewed sandwich and apple juice Personal Items: Dentures, Glasses Comments: Personal Items lower partial in mouth, Complaints of Pain: Yes Comment: Pain Comment: 8/10 to lower back Operative Site Yes Marking: Marked By: operative site marked Location: Bilateral L5/S1 by Dr. Wright Availability Equipment, X-Ray Verified: Does Patient Smoke No Patient states Yes Comment - Adult Indigo- postop adult Supervision supervision available Case Cancelled in No Holding Area see comments below for reason Last Modified By: Isa Romero RN 08/06/23 14:02:12 Finalized By: Isa Romero RN Document Signatures Signed By: Isa Romero RN 08/06/23 14:02 Normal [facility] [place] Operative Reporton 3 Operative Report Patient: KATERINA PINEDA Age: 73 years Sex: Male : 1950 Associated Diagnoses: None Author: Himanshu Wright MD Procedure Procedure: Transforaminal Epidural Steroid Injections with Fluoroscopic Guidance at Bilateral L5/S1 Diagnosis: Lumbosacral Radiculitis Anesthesia: local The patient was identified in the pre-op area. The procedure, including risks benefits and alternatives was discussed with the patient. The patient agreed to proceed. Informed consent was obtained and the site(s) marked. The patient was brought to the procedure room and placed in the prone position with padding under the abdomen to reduce lumbar lordosis. Time out was performed. The back was prepped and draped in sterile fashion with Chloraprep. Skin and subcutaneous tissues were anesthetized with 6 mL of Lidocaine 2% through a 25G needle. 22G spinal needles were advanced under fluoroscopic guidance through the bilateral L5/S1 foramina into the epidural space. Isovue 0.5mL was injected under live fluoroscopy at each level which demonstrated appropriate epidural spread without vascular uptake. After confirmation of negative aspiration, a total of 1mL of 2% PF lidocaine, 1mL of PF normal saline, and 10mg of PF dexamethasone (10mg/1mL) were injected in equally divided doses through the needles. The needles were removed and a bandage applied. The patient was brought to the recovery area in stable condition and then monitored for an appropriate period of time. The patient was discharged home in good condition with post-procedure instructions. No apparent complications. Epidural injection procedure Physical Exam: vital signs Vital Signs 08/06/2023 14:15 EDT Peripheral Pulse Rate 58 bpm LOW Systolic Blood Pressure 146 mmHg HI Diastolic Blood Pressure 80 mmHg SpO2 97 % 08/06/2023 13:52 EDT Respiratory Rate 14 br/min 08/06/2023 13:00 EDT Temperature Temporal Artery 36.7 DegC Peripheral Pulse Rate 67 bpm Systolic Blood Pressure 144 mmHg HI Diastolic Blood Pressure 70 mmHg SpO2 97 % . Normal [facility] [place] Comment on above: Result Comment: Elec tronically Signed By: Himanshu Wright MD\.br\Date and Time Signed: 08/06/23 14:20 EDT 36on 07-30-2023 36 Approving, but needs appt for additional refills. Normal [facility] Refillon 07-29-2023 Refill [id number] Trae Pineda 1950 M Date Provider Department Center 07/29/2023 AlissaNevaCHARLENE SANTORO [facility] Second Fl No family history on file Reason for Visit and Comments: Med Refill [[id number]] Normal [facility] Insurance Correspondence Off iceon 07-09-2023 Insurance Correspondence Office [id number]#1. 00CD:127 [facility] Patient Correspondenceon Patient Correspondence [id number]#1. 00CD:127 [facility] Consent for Treatmenton 06-18 Consent for Treatment [id number]#1. 00CD:127 [facility] Consultation Noteon 07-02-20 Consultation Note Patient: KATERINA PINEDA Age: 73 years Sex: Male : 1950 Associated Diagnoses: None Author: Margareth De La Cruz PA-C Subjective Chief complaint 07/02/2023 14:17 EDT Back Pain . Patient is a 73-year-old male. He has a past medical history significant for lumbosacral stenosis and lumbosacral neuritis. He underwent most recently a bilateral L5-S1 transforaminal epidural steroid injection on 12/12/2022 that gave him 90% relief for over 6 months. Unfortunately, over the last month or so he has noticed that the back pain with right greater than left radiating leg pain as well as numbness, tingling, and weakness has returned. He rates it a 1?9/10 depending on his activities. This affects his ambulatory status. This affects his quality of life and his activities throughout the day. Patient states that the pain prevents him from walking more than 100 yards and standing more than 30 minutes. Historically, anti-inflammatory medications have not given him any significant relief. Physical therapy done in October 2022 through November 2022 did not give him any long-term relief. The injections have been the thing to give him the most relief and he is here today to discuss once again having another injection. Health Status Allergies: Allergic Reactions (Selected) Severity Not Documented HydrALAZINE- Palpatations. Statins- Muscle ache., Allergies (2) Active Reaction hydrALAZINE palpatations statins muscle ache Current medications: (Selected) Documented Medications Documented Alpha Lipoic Acid 600 mg oral capsule: 600 mg = 1 cap(s), Oral, Daily, Refills(s) 0 Humulin 70/30: 25-10 units, BIDAC, Refill(s) 0 Norvasc: 5 mg, Oral, Daily, Refills(s) 0 PreserVision AREDS: 1 cap(s), Oral, Daily, Refill(s) 0 Ranexa: 500 mg, Oral, BID, Refills(s) 0 Repatha 140 mg/mL subcutaneous solution: SubCutaneous, q2wk, Refills(s) 0 Tylenol: 500 mg, PRN PRN as needed for pain, Refills(s) 0 Zetia: 10 mg, Oral, Daily, Refills(s) 0 aspirin: 81 mg, Daily, Refills(s) 0 calcium (as carbonate) 600 mg oral tablet: 600 mg = 1 tab(s), Oral, Daily, Refills(s) 0 lisinopril: 10 mg, Daily, Refills(s) 0 testosterone 2% transdermal cream: See Instructions, apply topically daily, Refills(s) 0 Problem list: All Problems History of heart attack / SNOMED CT 1102645570 / Confirmed Acute angina / SNOMED CT 014872703 / Confirmed Irregular heart beat / SNOMED CT 955190397 / Confirmed HTN (hypertension) / SNOMED CT 7481928554 / Confirmed High cholesterol / SNOMED CT 83463316 / Confirmed H/O heart bypass surgery / SNOMED CT 851017790 / Confirmed Apnea, sleep / SNOMED CT 851528405 / Confirmed CPAP (continuous positive airway pressure) dependence / SNOMED CT 8109413176 / Confirmed Enlarged prostate / SNOMED CT 693870769 / Confirmed Chronic kidney disease (CKD) / SNOMED CT 9093227930 / Confirmed Diabetes / SNOMED CT 937165260 / Confirmed Carpal tunnel syndrome / SNOMED CT 35662757 / Confirmed Anemia / SNOMED CT 823955064 / Confirmed Arthritis, rheumatoid / SNOMED CT 227290593 / Confirmed Obesity / ICD-9-CM 278.00 / Possible Obesity / SNOMED CT [id number] / Possible Objective Vital Signs 07/02/2023 14:17 EDT Peripheral Pulse Rate 61 bpm Respiratory Rate 14 br/min Systolic Blood Pressure 148 mmHg HI Diastolic Blood Pressure 71 mmHg Mean Arterial Pressure, Cuff 97 mmHg General: Alert and oriented, No acute distress. Overweight Eye: Normal conjunctiva. HENT: Normocephalic, Normal hearing. Cardiovascular: No edema. Musculoskeletal Normal range of motion. Normal strength. 5/5 lower extremity strength other than bilateral hip flexion 4+/5 as well as bilateral ADF and EHL 5 minutes/5 Positive straight leg raise bilaterally Integumentary: Warm, Dry, [place]. Neurologic: Alert, Oriented. Psychiatric: Cooperative, Appropriate mood & affect. Results Review * Final Report * Reason For Exam pain POWERSCRIBE REPORT IMPRESSION: Stable Mild degenerative changes. EXAM: XR Spine Lumbosacral Minimum 4 Views DATE: 11/08/2022 4:02 PM REASON FOR EXAM: Chronic lower back pain pain COMPARISON: 10/05/2021 FINDINGS: Alignment normal. No acute fracture. Disc spaces and vertebral heights maintained. Moderately prominent spurring along the endplates in the lumbar region again noted. Oblique views show minimal facet arthropathy. Vascular calcifications again noted Signature Line FINAL REPORT Dictated: 11/08/2022 8:04 pm Oscar Craig MD Signed (Electronic Signature): 11/08/2022 8:04 pm Signed by: Oscar Craig MD Transcribed by: DENITA Technologist: ORB RAD REPORT This document has an image Result type: XR Spine Lumbosacral Minimum 4 Views Result date: November 08, 2022 16:26 EST Result status: Auth (Verified) Result title: XR Spine Lumbosacral Minimum 4 Views Performed by: Oscar Craig MD on November 08, 2022 20:04 EST Verified b (more content not included)... Normal [facility] [place] Comment on above: Result Comment: Elec tronically Signed By: Margareth De La Cruz PA-C\.br\Date and Time Signed: 07/02/23 14:39 EDT\.br\Electronically Co-Signed By: Tutu Guzman MD\.br\Date and Time Co-Signed: 08/17/23 20:24 EDT Office/Clinic Note-Physician on 07-02-2023 Office/Clinic Note-Physician [id number]#1.0 0CD:127 Normal [facility] [place] Patient Correspondenceon Patient Correspondence [id number]#1.0 0CD:127 Normal [facility] [place] Patient Correspondence [id number]#1.0 0CD:127 Normal [facility] [place] Patient History Officeon Patient History Office [id number]#1.0 0CD:127 Normal [facility] [place] 29on 06-04-2023 29 Addended by: HARPREET WATSON on: 06/04/2023 11:25 AM Modules accepted: Orders Normal [facility] Office Visiton 06-04-2023 Follow-up visit [id number] Trae Pineda 1950 M Date Provider Department [facility] No family history on file Level of Service:78117 [place] OFFICE/OUTPATIENT ESTABLISHED MOD MDM 30-39 MIN Reason for Visit and Comments: Follow-up [772494] - 6 month follow up Normal [facility] 36on 05-31-2023 36 No bacterial or candidal growth in urine. Will prescribed Bactrim DS BID x2 weeks and daily x 4 weeks for suspected prostatitis. BMP ordered to recheck potassium in a couple weeks. Normal [facility] Telephoneon 05-31-2023 Telephone [id number] Trae Pineda 1950 M Date Provider Department Center 05/31/2023 3561-HARPREET WATSON TXP None No family history on file Normal [facility] CBC WITH AUTO DIFFERENTIALon 05-28-2023 Basophils (Bld) [#/Vol] 0.11 10*3/uL Normal 0.00-0.20 [facility] Comment on above: Performed By: #### L [id number] #### [facility] ([facility]) [address] [place] [address] Basophils/100 WBC (Bld) 1.1 % High 0.0-1.0 [facility] Comment on above: Performed By: #### L [id number] #### [facility] [address] [place] [address] Eosinophils (Bld) [#/Vol] 0.35 10*3/uL Normal 0.00-0.50 [facility] Comment on above: Performed By: #### L [id number] #### [facility] [address] [place] [address] Eosinophils/100 WBC (Bld) 3.5 % Normal 0.0-6.0 [facility] Comment on above: Performed By: #### L [id number] #### [facility] ([facility]) [address] [place] [address] Erythrocyte distribution width (RBC) [Ratio] 14.6 % Normal 11.5-15.0 [facility] Comment on above: Performed By: #### L [id number] #### [facility] ([facility]) [address] [place] [address] ERYTHROCYTE MEAN CORPUSCULAR HEMOGLOBIN CONCENTRATION (G/DL) BY AUTOMATED 32.1 g/dL Normal 32.0-35.0 [facility] Comment on above: Performed By: #### L [id number] #### [facility] ([facility] [address] [place] [address] Hematocrit (Bld) [Volume fraction] 44.9 % Normal 39.0-55.0 [facility] Comment on above: Performed By: #### L [id number] #### [facility] [address] [place] [address] Hemoglobin (Bld) [Mass/Vol] 14.4 g/dL Normal 13.0-17.0 [facility] Comment on above: Performed By: #### L [id number] #### [facility] [address] [place] [address] Immature granulocytes (Bld) [#/Vol] 0.05 10*3/uL Normal 0.00-0.20 [facility] Comment on above: Performed By: #### L [id number] #### [facility] ([facility] [address] [place] [address] Immature granulocytes/100 WBC (Bld) 0.5 % Normal 0.0-1.0 [facility] Comment on above: Performed By: #### L [id number] #### [facility] ([facility]) [address] [place] [address] Lymphocytes (Bld) [#/Vol] 2.26 10*3/uL Normal 1.20-4.00 [facility] Comment on above: Performed By: #### L [id number] #### [facility] ([facility]) [address] [place] [address] Lymphocytes/100 WBC (Bld) 22.8 % Normal 20.0-45.0 [facility] Comment on above: Performed By: #### L [id number] #### [facility] ([facility]) [address] [place] [address] MCH (RBC) [Entitic mass] 29.1 pg Normal 27.0-33.0 [facility] Comment on above: Performed By: #### L [id number] #### [facility] ([facility] [address] [place] [address] MCV (RBC) [Entitic vol] 90.7 fL Normal 82.0-98.0 [facility] Comment on above: Performed By: #### L [id number] #### [facility] ([facility] [address] [place] [address] Monocytes (Bld) [#/Vol] 0.92 10*3/uL Normal 0.10-1.00 [facility] Comment on above: Performed By: #### L [id number] #### [facility] ([facility] [address] [place] [address] Monocytes/100 WBC (Bld) 9.3 % Normal 5.0-12.0 [facility] Comment on above: Performed By: #### L [id number] #### [facility] ([facility] [address] [place] [address] Neutrophils (Bld) [#/Vol] 6.22 10*3/uL Normal 1.60-7.60 [facility] Comment on above: Performed By: #### L [id number] #### [facility] ([facility]) [address] [place] [address] Neutrophils/100 WBC (Bld) 62.8 % Normal 40.0-72.0 [facility] Comment on above: Performed By: #### L [id number] #### [facility] ([facility]) [address] [place] [address] NRBC (PER 100 WBCS) BY AUTOMATED COUNT 0.0 % Normal 0 [facility] Comment on above: Performed By: #### L [id number] #### [facility] ([facility]) [address] [place] [address] PLATELETS (10*3/UL) IN BLOOD AUTOMATED COUNT 198 10*3/uL Normal 150-400 [facility] Comment on above: Performed By: #### L [id number] #### [facility] ([facility] [address] [place] [address] RBC (Bld) [#/Vol] 4.95 10*6/uL Normal 4.20-5.70 [facility] Comment on above: Performed By: #### L [id number] #### [facility] ([facility] [address] [place] [address] WBC (Bld) [#/Vol] 9.91 10*3/uL Normal 4.00-10.60 [facility] Comment on above: Performed By: #### L [id number] #### [facility] ([facility] [address] [place] [address] Follow-Upon 05-28-2023 Follow-Up [id number] Trae Pineda 1950 M Date Provider Department Center 05/28/2023 Elena1-HARPREET WATSON [facility] Second Fl No family history on file Level of Service:27111 [place] OFFICE/OUTPATIENT ESTABLISHED MOD MDM 30-39 MIN Reason for Visit and Comments: Benign Prostatic Hypertrophy [[id number]] Hypogonadism [185] - 3 mo follow-up with labs, pt had labs shortly after last appt Normal [facility] Labon 05-28-2023 Lab [id number] Trae Pineda 1950 M Date Provider Department Center 05/28/2023 2245-[facility] RESOURCE [facility] C No family history on file Normal [facility] PSA, SCREENINGon 05-28-2023 PROSTATE SPECIFIC AG (NG/ML) IN SER/PLAS 2.1 ng/mL Normal 0.4-4 [facility] Comment on above: Performed By: #### L [id number] #### [facility] [address] [place] [address] TESTOSTERONEon 05-28-2023 TESTOSTERONE (NG/DL) IN SER/PLAS 510 ng/dL Normal 220-1000 [facility] Comment on above: Result Comment: Test Performed by [facility] [address] [place] [address] - Released 05/29/2023 04:45 Performed By: #### L [id number] #### [facility] [address] [place] [address] URINALYSIS WITH MICROSCOPICo n 05-28-2023 BILIRUBIN, TOTAL PRESENCE IN URINE Negative Normal Negative [facility] Comment on above: Performed By: #### L [id number] #### [facility] [address] [place] [address] CASTS IN URINE Present Abnormal None Seen [facility] Comment on above: Performed By: #### L [id number] #### [facility] [address] [place] [address] Clarity (U) Clear Normal Clear [facility] Comment on above: Performed By: #### L [id number] #### [facility] ([facility] [address] [place] [address] Color (U) Holly Abnormal Yellow [facility] Comment on above: Performed By: #### L [id number] #### [facility] ([facility] [address] [place] [address] Glucose (U) [Mass/Vol] Negative Normal Negative [facility] Comment on above: Performed By: #### L [id number] #### [facility] ([facility]) [address] [place] [address] HEMOGLOBIN PRESENCE IN URINE Negative Normal Negative [facility] Comment on above: Performed By: #### L [id number] #### [facility] ([facility]) [address] [place] [address] HYALINE CASTS /LPF IN URINE SEDIMENT BY MICROSCOPY 7 /LPF High <1 [facility] Comment on above: Performed By: #### L [id number] #### [facility] ([facility]) [address] [place] [address] Ketones Ql (U) Negative Normal Negative [facility] Comment on above: Performed By: #### L [id number] #### [facility] ([facility]) [address] [place] [address] LEUKOCYTE ESTERASE PRESENCE IN URINE BY TEST STRIP Negative Normal Negative [facility] Comment on above: Performed By: #### L [id number] #### [facility] ([facility] [address] [place] [address] MUCUS (#/HPF) IN URINE SEDIMENT Occasional Normal None Seen, Occasional, Few [facility] Comment on above: Performed By: #### L [id number] #### [facility]) [address] [place] [address] NITRITE PRESENCE IN URINE Negative Normal Negative [facility] Comment on above: Performed By: #### L [id number] #### [facility] ([facility]) [address] [place] [address] pH (U) 5.0 [pH] Normal 5.0-8.0 [facility] Comment on above: Performed By: #### L [id number] #### [facility] ([facility]) [address] [place] [address] Protein (U) [Mass/Vol] 30 mg/dL Abnormal Negative [facility] Comment on above: Performed By: #### L [id number] #### [facility] ([facility]) [address] [place] [address] RBC (#/HPF) IN URINE SEDIMENT None Seen Normal None Seen [facility] Comment on above: Performed By: #### L [id number] #### [facility] ([facility]) [address] [place] [address] Specific gravity (U) [Rel density] 1.024 High 1.015-1.020 [facility] Comment on above: Performed By: #### L [id number] #### [facility] ([facility]) [address] [place] [address] SQUAMOUS EPITHELIAL CELLS (#/HPF) IN URINE SEDIMENT Moderate Abnormal None Seen, Occasional [facility] Comment on above: Performed By: #### L [id number] #### [facility] ([facility]) [address] [place] [address] WBC (LEUKOCYTE) (#/HPF) IN URINE SEDIMENT 0-2 Abnormal None Seen [facility] Comment on above: Performed By: #### L [id number] #### [facility] ([facility]) [address] [place] [address] URINE CULTURE, ROUTINEon Bacteria identified Cx Nom (U) No growth at 48 hours Normal [facility] Comment on above: Performed By: #### L [id number] ####[facility] ([facility])[address] [place] [address] CT CHEST WO CONon 03-07-2023 CT CHEST WO CON EXAMINATION: CT CHES T WO CON 03/07/2023 HISTORY: Solitary nodule of lung COMPARISON: None. TECHNIQUE: CT examination of the chest without IV contrast. Coronal and sagittal reformations were performed. Dose reduction techniques were achieved by using automated exposure control and/or adjustment of mA and/or kV according to patient size and/or use of iterative reconstruction technique. Findings: Lack of intravenous contrast limits evaluation. Postsurgical changes consistent with median sternotomy. The heart is nonenlarged. No pericardial effusion. Coronary artery and aortic annular calcifications. No pericardial effusion. The thoracic aorta is normal caliber with moderate atherosclerotic disease. The pulmonary arteries are nondilated. The central airways are patent. No pneumothorax. No pleural effusion. No focal consolidation. Right middle lobe 0.7 cm nodule abutting the pleura (image #64 series 4). Benign calcified left lower lobe granuloma. Small regions of nodular tree-in-bud opacification within the bilateral lower lobes, right greater than left. No enlarged mediastinal, hilar, axillary or supraclavicular lymph nodes. Stones within the gallbladder. Partially visualized atrophy of the pancreas with regions of fatty replacement. No aggressive sclerotic or lytic osseous lesions. Mild multilevel degenerative spondylosis. IMPRESSION: 1. Right middle lobe pulmonary nodule. See below for follow-up at renditions. 2. Small regions of nodular tree in bud opacification within the bilateral lower lobes, right greater than left, concerning for bronchiolitis, likely infectious. 3. Cholelithiasis. Nodule follow-up guidelines: In an average-risk patient, a solid lung nodule between 6 and 8 mm requires a [address] and, if stable, a 24 month exam to ensure two years of stability. In a high-risk patient, this requires a followup chest CT in 6 months and, if stable, a 24 month exam to ensure 2 years of stability. Electronically authenticated by: SLOAN SOSA Date: 2023-03-07 10:24 Normal [facility] Letter (Out)on 02-27-2023 Letter (Out) [id number] Trae Pineda 1950 M Date Provider Department Center 02/27/2023 DIONY GREENBERG [facility] Second Fl No family history on file Normal [facility] CBC WITH AUTO DIFFERENTIALon 02-26-2023 Basophils (Bld) [#/Vol] 0.11 10*3/uL Normal 0.00-0.20 [facility] [facility] Comment on above: Performed By: #### L [id number] #### [facility] [employer] [facility] [address] [place] [address] Basophils/100 WBC (Bld) 1.3 % High 0.0-1.0 [facility] Comment on above: Performed By: #### L [id number] #### [facility] [address] [place] [address] Eosinophils (Bld) [#/Vol] 0.22 10*3/uL Normal 0.00-0.50 [facility] Comment on above: Performed By: #### L [id number] #### [facility] [address] [place] [address] Eosinophils/100 WBC (Bld) 2.6 % Normal 0.0-6.0 [facility] Comment on above: Performed By: #### L [id number] #### [facility] [address] [place] [address] Erythrocyte distribution width (RBC) [Ratio] 13.9 % Normal 11.5-15.0 [facility] Comment on above: Performed By: #### L [id number] #### [facility] [address] [place] [address]67 ERYTHROCYTE MEAN CORPUSCULAR HEMOGLOBIN CONCENTRATION (G/DL) BY AUTOMATED 32.4 g/dL Normal 32.0-35.0 [facility] Comment on above: Performed By: #### L [id number] #### [facility] [address] [place] [address] Hematocrit (Bld) [Volume fraction] 44.1 % Normal 39.0-55.0 [facility] Comment on above: Performed By: #### L [id number] #### [facility] [address] [place] [address] 19726 Hemoglobin (Bld) [Mass/Vol] 14.3 g/dL Normal 13.0-17.0 [facility] Comment on above: Performed By: #### L [id number] #### [facility] [address] [place] [address] Immature granulocytes (Bld) [#/Vol] 0.04 10*3/uL Normal 0.00-0.20 [facility] Comment on above: Performed By: #### L [id number] #### [facility] [address] [place] [address] Immature granulocytes/100 WBC (Bld) 0.5 % Normal 0.0-1.0 [facility] Comment on above: Performed By: #### L [id number] #### [facility] [address] [place] [address] Lymphocytes (Bld) [#/Vol] 1.90 10*3/uL Normal 1.20-4.00 [facility] Comment on above: Performed By: #### L [id number] #### [facility] [address] [place] [address] Lymphocytes/100 WBC (Bld) 22.1 % Normal 20.0-45.0 [facility] Comment on above: Performed By: #### L [id number] #### [facility] [address] [place] [address] 26210 MCH (RBC) [Entitic mass] 29.8 pg Normal 27.0-33.0 [facility] Comment on above: Performed By: #### L [id number] #### [facility] [address] [place] [address] 67063 MCV (RBC) [Entitic vol] 91.9 fL Normal 82.0-98.0 [facility] Comment on above: Performed By: #### L [id number] #### [facility] [address] [place] [address] Monocytes (Bld) [#/Vol] 0.77 10*3/uL Normal 0.10-1.00 [facility] Comment on above: Performed By: #### L [id number] #### [facility] [address] [place] [address]113 Monocytes/100 WBC (Bld) 9.0 % Normal 5.0-12.0 [facility] Comment on above: Performed By: #### L [id number] #### [facility] [address] [place] [address] Neutrophils (Bld) [#/Vol] 5.55 10*3/uL Normal 1.60-7.60 [facility] Comment on above: Performed By: #### L [id number] #### [facility] [address] [place] [address] Neutrophils/100 WBC (Bld) 64.5 % Normal 40.0-72.0 [facility] Comment on above: Performed By: #### L [id number] #### [facility] [address] [place] [address] NRBC (PER 100 WBCS) BY AUTOMATED COUNT 0.0 % Normal 0.0-0.0 [facility] Comment on above: Performed By: #### L [id number] #### [facility] [address] [place] [address] PLATELETS (10*3/UL) IN BLOOD AUTOMATED COUNT 215 10*3/uL Normal 150-400 [facility] Comment on above: Performed By: #### L [id number] #### [facility] [address] [place] [address] RBC (Bld) [#/Vol] 4.80 10*6/uL Normal 4.20-5.70 [facility] Comment on above: Performed By: #### L [id number] #### [facility] [address] [place] [address] WBC (Bld) [#/Vol] 8.59 10*3/uL Normal 4.00-10.60 [facility] Comment on above: Performed By: #### L [id number] #### [facility] [address] [place] [address] COMPREHENSIVE METABOLIC PANE Cortes 02-26-2023 Albumin [Mass/Vol] 4.2 g/dL Normal 3.5-5.7 [facility] Comment on above: Performed By: #### L [id number] #### [facility] ([facility] [address] [place] [address] ALP [Catalytic activity/Vol] 63 U/L Normal 34-104 [facility] Comment on above: Performed By: #### L [id number] #### [facility] ([facility]) [address] [place] [address] ALT [Catalytic activity/Vol] 14 U/L Normal 7-52 [facility] Comment on above: Performed By: #### L [id number] #### [facility] ([facility]) [address] [place] [address] Anion gap [Moles/Vol] 12 mmol/L Normal 7-20 [facility] Comment on above: Performed By: #### L [id number] #### [facility] ([facility]) [address] [place] [address] AST [Catalytic activity/Vol] 14 U/L Normal 13-39 [facility] Comment on above: Performed By: #### L [id number] #### [facility] ([facility]) [address] [place] [address] Bilirubin [Mass/Vol] 0.7 mg/dL Normal 0.3-1.0 [facility] Comment on above: Performed By: #### L [id number] #### [facility] ([facility]) [address] [place] [address] Calcium [Mass/Vol] 10.1 mg/dL Normal 8.6-10.3 [facility] Comment on above: Performed By: #### L [id number] #### [facility] ([facility]) [address] [place] [address] Chloride [Moles/Vol] 108 mmol/L High 98-107 [facility] Comment on above: Performed By: #### L [id number] #### [facility] ([facility]) [address] [place] [address] CO2 [Moles/Vol] 28 mmol/L Normal 21-31 [facility] Comment on above: Performed By: #### L [id number] #### [facility] ([facility]) [address] [place] [address] Creatinine [Mass/Vol] 1.48 mg/dL High 0.70-1.30 [facility] Comment on above: Performed By: #### L [id number] #### [facility] ([facility]) [address] [place] [address] GLOMERULAR FILTRATION RATE ML/MIN/1.73 SQ M.PREDICTED 49.3 mL/min/1.73m*2 Low >60.0 [facility] Comment on above: Result Comment: The [facility]???s estimated glomerular filtration rate (eGFR) will no longer include consideration of race in its calculation. The National Kidney Foundation???s eGFR Task Force developed new recommendations for the estimation of the glomerular filtration rate in the [place] They recommend immediate implementation of the new equation refit without the race variable in all laboratories because the calculation does not include race. In addition to not including race in the calculation and reporting, it included diversity in its development, and has acceptable performance characteristics and potential consequences that do not disproportionately affect any one group of individuals. Performed By: #### L [id number] #### [facility] ([facility]) [address] [place] [address] Glucose [Mass/Vol] 107 mg/dL High 70-100 [facility] Comment on above: Performed By: #### L [id number] #### [facility] ([facility]) [address] [place] [address] Potassium [Moles/Vol] 4.8 mmol/L Normal 3.5-5.1 [facility] Comment on above: Performed By: #### L [id number] #### [facility] ([facility]) [address] [place] [address] Protein [Mass/Vol] 6.6 g/dL Normal 6.0-8.3 [facility] Comment on above: Performed By: #### L [id number] #### [facility] ([facility]) [address] [place] [address] Sodium [Moles/Vol] 143 mmol/L Normal 136-145 [facility] Comment on above: Performed By: #### L [id number] #### [facility] ([facility]) [address] [place] [address] Urea nitrogen [Mass/Vol] 30 mg/dL High 7-25 [facility] Comment on above: Performed By: #### L [id number] #### [facility] ([facility]) [address] [place] [address] UREA NITROGEN/CREATININE (MASS RATIO) IN SER/PLAS 20.3 Normal [facility] Comment on above: Performed By: #### L [id number] #### [facility] ([facility]) [address] [place] [address] ESTRADIOLon 02-26-2023 ESTRADIOL (PG/ML) IN SER/PLAS 21.3 pg/mL Low 27-52 [facility] Comment on above: Result Comment: Test Performed by [employer] [address] [place] [address] - Released 02/26/2023 18:40 Performed By: #### L [id number] #### [employer] [facility] [address] [place] [address] FOLLICLE STIMULATING HORMONE on 02-26-2023 FOLLITROPIN (IU/L) IN SER/PLAS 0.5 IU/L Low 1-19 [facility] Comment on above: Result Comment: FSH Normal Ranges for females Normally menstruating females: Follicular phase 4-13 mIU/ml Mid-Cycle peak 5-22 mIU/ml Luteal phase 2-13 mIU/ml Postmenopausal females 20-138 mIU/ml Performed By: #### L [id number] #### [facility] ([facility]) [address] [place] [address] Follow-Upon 02-26-2023 Follow-Up [id number] Trae Pineda 1950 M Date Provider Department Center 02/26/2023 [place]-DIONY ARIZA [facility] URO Second Fl No family history on file Level of Service:34321 [place] OFFICE/OUTPATIENT ESTABLISHED MOD MDM 30-39 MIN Reason for Visit and Comments: Follow-up [[id number]] - Pt here for follow up, has labs - needs flow,pvr Normal [facility] LUTEINIZING HORMONEon 2022 LUTROPIN (MIU/ML) IN SER/PLAS <0.2 Low 2-12 [facility] Comment on above: Result Comment: LH N ormal Ranges for females Normally menstruating females: Follicular phase 1-18 mIU/ml Mid-Cycle peak 24-105 mIU/ml Luteal phase 0.5-20 mIU/ml Postmenopausal females 15-62 mIU/ml LH Normal Ranges for Males 2-12 mIU/ml Performed By: #### L [id number] #### [employer] [facility] [address] [place] [address] Labon 02-26-2023 Lab [id number] rTae Pineda 1950 M Date Provider Department Center 02/26/2023 2245-[facility]PD LAB RESOURCE [facility] [place] Medical C No family history on file Normal [facility] PROLACTINon 02-26-2023 PROLACTIN (NG/ML) IN SER/PLAS 4.56 ng/mL Normal 1.61-18.77 [facility] Comment on above: Performed By: #### L [id number] ####[facility] (BE[facility]ER)[address] [place] [address] PSA, SCREENINGon 02-26-2023 PROSTATE SPECIFIC AG (NG/ML) IN SER/PLAS 2.0 ng/mL Normal 0.4-4 [facility] Comment on above: Performed By: #### L [id number] #### [employer] [facility] [address] [place] [address] TESTOSTERONEon 02-26-2023 TESTOSTERONE (NG/DL) IN SER/PLAS 359 ng/dL Normal 220-1000 [facility] Comment on above: Result Comment: Test Performed by [employer] [address] [place], [place] [id number] - Released 02/26/2023 19:45 Performed By: #### L [id number] #### [employer] [facility] [address] [place] [address] TESTOSTERONE, FREE AND TOTAL , AND SHBGon 02-26-2023 SEX HORMONE BINDING GLOBULIN (NMOL/L) IN SER/PLAS 28 nmol/L Normal 11-80 [facility] Comment on above: Performed By: #### L [id number] #### [facility] [address] [place] [address] TESTOSTERONE (NG/DL) IN SER/PLAS 360 ng/dL Normal 220-1000 [facility] Comment on above: Performed By: #### L [id number] #### [facility] ([facility]) [address] [place] [address] TESTOSTERONE FREE (NG/ML) IN SER/PLAS 79.3 pg/mL Normal 47-244 [facility] Comment on above: Result Comment: The concentration of free testosterone is derived from a mathematical expression based on the constant for the binding of testosterone to albumin and/or sex hormone binding globulin. Test Performed by [employer] [address] [place] [address] - Released 02/26/2023 18:46 Performed By: #### L [id number] #### [facility] ([facility]) [address] [place] [address] TESTOSTERONE, FREE,DIRECT, T OTALon 01-24-2023 Free Testosterone(Direct) 10.1 pg/mL Normal 6.6-18.1 [facility] Comment on above: Result Comment: Perf ormed at: BN Performed By: #### L JENNYFER #### [facility] [address] [place] [address] Dr. Zan Escalante Testosterone [Mass/Vol] 622 ng/dL Normal 264-916 [facility] Comment on above: Result Comment: Adul t male reference interval is based on a population of healthy nonobese males (BMI <30) between 19 and 39 years old. Nate, et.al. JCEM 2017,102;7344-6479. PMID: 57396344. Performed at: CB Performed By: #### L BCL #### [facility] [address] [address] [address] Zan Escalante ESTRADIOLon 01-19-2023 Estradiol 21.4 pg/mL Normal 7.6-42.6 [facility] Comment on above: Result Comment: Anastacio COHEN methodology Performed By: #### L BCL #### [facility] [address] [address] [address] Zan Escalante FSHon 01-19-2023 FSH 0.3 mIU/mL Critically low 1.5-12.4 [facility] Comment on above: Performed By: #### L BCFSH #### [facility] [address] [address] [address] Zan Escalante LUTEINIZING HORMONE (LH)on 0 01-19-2023 LH <0.3 Critically low 1.7-8.6 [facility] Comment on above: Performed By: #### L BCLH #### [facility] [address] [place] [address] Dr. Zan Escalante PROLACTINon 01-19-2023 Prolactin 6.5 ng/mL Normal 4.0-15.2 [facility] Comment on above: Performed By: #### L JENNYFERH #### [facility] [address] [place] [address] Dr. Zan Escalante SEX HORMONE-BINDING GLOBULIN on 01-19-2023 Sex Horm Binding Glob, Serum 28.3 nmol/L Normal 19.3-76.4 [facility] Comment on above: Performed By: #### S EXHBG #### [facility] [address] [place] [address] Dr. Zan Escalante Coding Summary.on 01-16-2023 Coding Summary. CD:[id number] Gh 0bWw+PGhlYWQ+II3EPDMrE 59vwVPqiT8VB3kDSJ5WOBZ KBNBYGE9DCR7wwWF3EBynU 2VybiAv QjfzhYGkIQ40TBq1JMC6zM ujLSbbtU1vjNNhM4d9GaHq TV86eE04HTlqIVWhNpB4Mn ZpbjsgbWFy A2npWrYfpZLoNla+PHRhYm xlIHdpZHRoPScxMDAlJyBz kXakXS0hKj7zMAGhWPOuzY xhcHNlOiBj n0paSUBbLCyhPK9wgQugM8 CazKR9CJSpb9r1Of57qKZ+ GLQiDVA2uWslTZbnt240Sj Vfc3dpQGX7 vGQpQWikODA9F23of1S5SF RjGLRsZAX7lWG7aG7ypLkw yaptR8TgvVUvGtX0KID2xB MhqS3slBqe oklemG0mHly+Y72CSO9ZMG BANT6UBqu1Z0WqQoejoOF+ NG77SBDpNQ66aJGphJMfy2 dkhDv4GdNd BMYxBYF6uYdxCMsrd8MzEV PmY56bdKKou2P0DPWilLpo eWTvCyReyJK0aO7hRXukrc zvr7hazldj Ywzwe8jcvz55dM83Q00nVE pkDZIoNQC7ILTeNOAidPmd em9jsO7pIs8+VByys2sqz1 ohuIe7IbWf UENrfmBgjJxrPOZ2l6QySt 96L5MylEmxr6EmZzj0nv67 iWGyx3F3hZN6GHplDMMbvZ 1uKYysXpW2 ONOwAlJvxK20vKDnXZhbIb 0egUvniEdhXN0hBFAoligl RSGngQ5gPTLxeQWirPtiHC 4wNTBpbjtm u879XxBkUIA0PEFruCYvW9 DdeB9bIbVzLUTkHXTiV6Zw tTKqATjsB011BAriHmN4TN SrlqSgF6Iq XLJcdZenLkC0t6G9Fm8Sy7 IehzaoRWR2PMrpFXJsTcPj BlEiHgM9Y4KpSqj9DEVzbX luSO3tR3Xj KTMkolslmbdupAA8WGFjXW NywQ69aESuQDggCu5vk7R0 c333TXBjTGDgxJ67Dk6ujW ogMTBwdCBU qW7kotbuk6axnmdfKaObQQ ZrSPr0QVv1OQUewZlfBaLm OBV8PxW9XUL5xZRgeJ8pwM lxsalmuN4e Oyc+H00qjU2eBRM2SSV7xd edDQNfckPtHD55OV72M5Ul PjwvdGFibGU+PGRpdiBzdH zwTL8fHrEe c6ope6OgRLcfQ5DkMPOlUG hhNoo6YJTbKGS9cFC0cR7c CUImCXgvd9J5hQQ9I4Xvpl Yaic2cr2cp JNWsMRsvW27krMAzn7X6SK WyrMR5DSHkuAceQhHvsS82 Oyc+WTRyqIntb5IgNafdo5 aen4iucWv1 FiEhKLIyqzTmqLofMPI9b1 SeHz71N47mPJeuIYYzOJCt CTCzZJEacAtfbn9txS9xBe 8+PGNvbCB3 zLY3rV5rPSHoXqR3PAkvF0 84RgDasPEkWknfl3fhm7pr yIy7JiUdISCtbhEvzTnkYP D9c2FnIz82 R05fBAshOFOnYQSgGQQaDZ KnsJbqza1dxG6hOc2+PC9j t6rczg54bR69zVZ+PHRkIH F6tOyfCSgr MQDlpY9mWScuVyZ9LYVaOd PqpU33eOVcMAueTo9pzGcb zZtnES9jBGAatvkdi083Ix Qgj0ugPUHi qXMeSDimRMA3D75hr0I6OF CqRUZoUTC1vGS3uD7fiXxu bjogbGVmdDsgdmVydGljYW joUAbjE585 IHRvcDsnPlBhdGllbnQgTm MfXAj9D1JyMvg3CWHpvBbt WX2zvITpVFuxQd8sqVlcfU reGK6oBDBe giikh550DhUgn7ukFHOcpR JiWCveAHH8Y05kp5C9GGCh ZKLpCCM6gWP0iD7qaZldsy ogbGVmdDsg xfEucAczXUeuCKqwZ467KN RvcDsnPkJpcnRoIERhdGU6 LT02DR20qREcg2K2wAG3N0 BhZGRpbmct erkqiQM4NTFvJMPhyZ32Dm 4mnEltHb3fZSFwUZY4JPLq tVUtG8QrmE0gVkPmSWJmIB DbA2TzzYKy MNduW403BBvlEiM7MNYggx DaO0RsHJExhCztXaT0r5U1 Ro2OJ1E7XY74DE58iCGqv6 D2dBD8W9Og FVNnhrucwnudmVA7QKScUF QuwF79Jk0vmDkjBe7zBCZe AVX2DRRtmJGhO8SebU7dMt AjMDAwMDAw G5VhnFYdZDymC910NHikCb F6MFEhdqLcI5ZrQAJapMqx WrC5j7E8Yy8XVIr3AY14ES 94gSGyr9E1 jQP3A6CvQOQkilrjmhmhoN K8MDIqUSUpfA75Qk4doEjt Om5rSFBtYWV9RXOibXNwK6 DymU2hCwVn IRXpOOEhR4DdeANnUPppA5 82VTxsRtS5XYDhjsBzR0Vi KCFfyTfwCbQ1m7P4Rv0PSC HwRU89RBF7 eFS8HB71ET10C7NfUxmrbM FibGU+PHRhYmxlIHdpZHRo LWlhQRBpCvSogXmgWV5sGk 9yZGVyLWNv lJqjfHHcRjTaf2muLGUoAB dfHC9icRqwW4KrlKC3CAEv v2r9Bn70P35gV9JdvGY+PG FlvLT1qZL5 jO1rRqYoDiU7YPixW715Pu UcpCZpSzsap2bpg0samSy5 McK8PXOvheDgjBhvTIM6p7 NxLu97Q08z IHdpZHRoPSIxNSUiIHZhbG eovo2mqD2xIk0+PGNvbCB3 dGH0rB8hEzKpMiG2XLagN6 49InRvcCIv Pungx7rdk6rduBn5NiHwLH GdpwGmxIauIAD9i2MeNh90 S4GskHafg2YmWia2gm39zQ Lof8P0dDC9 F7YyDDKgeacjwNUwlMwnOH 3hINBfzzxpONPutU1aABJb H2v4QnPrGoG0PAscE0Erqj J5WRPzuRVs KTdmUOQ4O87zx3E7KQCtCN FkCKJ4xFW3yV2jxKuqizth bGVmdDsgdmVydGljYWwtYW apK035VYAf oMqfTYUsuM5qQVRikTWjuW slPO1pTNNxvsaxVjQSYCMR TPJKDFWQGJCFGR69TS20mU Rub1H2hZD1 P7GfEWKdiwshozceiHX8ID RuQVTrxO26bXQgZYsvWf7g n5T3v700YWGpZUQcmM27Cd 9udDogMTBw mYAOsF1iedpiv0ltfaipKu HkBPEsSOt4DDv8ZPQjcRxm SwLlXIB3NfW9RLA2aBJlsV 1hbGlnbjog yJ1rOla+WVCoCFemSDl1DS wvdGQ+HIEiSSB5uRpkVJnj BTCdoL6jQGXlR5a6VbRdWm Z5IYnwH1Kr NXEhgossZe70jE6nRkMvKt P0DIvyR2CcoeE2HKGsdIMw QQzyZQM1G32nx0R0CFMoHS ZzKUK0aWU9 wU7fbHyxiexlnJEnvNwabs TcjFjlRFadDVbpK275UCZn wEotEtx6WZjzMNHrPZ69WL 53uXTny8W6 pIV0J0VhBDPihhoppwazkW X5RZYaZPJdwW95qMAgUShv Cp3zo3B2s023AYEjZYZwbJ 38Ui6trUyl UFLydVXPiQ3ivubpy2roxa hqKoBnREZrTBl8LNu3NFOl sOfxKwKpKKD8AmU9DVS5fV RnpF6puLuf eebbrA8eKqa+TWFsZTwvdG Q+LLYnFDV0bTyhRRtsXKPy iZ7aIBDnZ8k9LwXlCqV5UK aqQ4XyJEFl nyxmYy58uS6gRcYbJgV5TN gfP9LshrK5NSBwiDTdADrp TWN2I91nx2V0BAOqTZYcSM R6dVW3zY5z bGlnbjogbGVmdDsgdmVydG gwILreKNadB235UETknBty NsNujG6iJTLhVXezdALbvC wvdGQ+PC90 yh80B5ArHpwcHzg7JKZdNT F5fGU9zO6rHQShVOovo4L5 xDK4Q4WflqRniw1yx9hjMW LnMIrnN16q kNGsk0K9QFCbhLU3QNTloZ jnSwLvgH40Bkn+PGNvbGdy l5OuKbxjo4wal1douIo3Az MwJSIgdmFs oSnoAYX5f5GpIs37C33nTH dpZHRoPSIzMCUiIHZhbGln ei6opK4vXf5+XJDbmCP8lI B4gH3xSfGe CwU8XPxrC975AcTzrUDxRk bmi1soe7fusMg9WlJnZMMf byQnnVqmRSN2b7ZtUs87A0 UjeWolw8Oi Fyp1cv69hNEsc1W1mOD0H3 YtSBNhekokeXVygYexWN7o VUBubvenACPjaG4cHRGpQ9 j5GrUcMdX9 FYwcO4DwsxE4UGXmxMSoXZ MosRNIcL2livxzv3ywqpmr FfMbKGQdRPq5BOb1WCMrtB duOiBsZWZ0 MdL2FMG6sOFtzG7yeDllsw ambS6yYhh+XJd5d0jmeKPv SJ2yrGV1LB43RU70pTZni1 Z3fVS4X4Ic YQThnpmbwgoxbDB2XJGxSW BafX33Bv3ohSneCi5iEBZx RHE3DNQqpMKuJ1KxcQ6rJp AjMDAwMDAw I9CtuSAtGHlkN184HJslWg Z0YZAmqlMbF5FqKJNjyCoy LcB6f1T3Gf7TZT15LE58TK 30hCSwv7N9 fIW4Z5OzITLjgsfyfyzazQ X2UEThMAGegH47Ba8okIjt Lz6xNVAyNSG8UHViiLDzP8 YqvB9mRvEm SQNjLVPdZ4CqmMJvEPznL1 72IHdqCqM7KTEbqiWtU5Uf ABNmpDohDiS4z9Q6Lo6SCn 04OB67BC91 sRRfo2Y8aHG7M7LiZFSjkn dryzgmmJK3GGSbFBNviE25 Ma6whOcfAv6wVNQdWUN9RP XbnGIzW2Fb oW4sPeJpETRtBQRbA6UmqX OyTXcuK362NFgqQrY4OITi jxOfD3BiCYHsiQgzOtA0v7 P4Gi4AIYjy zrm7B4AqNnwnoSM+PC90YW XaJW94bGJlwROtl9jprKg5 JhScCHDoTRI6sDttPIlnh4 GiPATqU82u bGFw (more content not included)... Normal [facility] [place] Consent for Treatmenton 12-20 Consent for Treatment [id number]:[id number] [facility] Consultation Noteon 01-11-20 Consultation Note Patient: KATERINA PINEDA Age: 72 years Sex: Male : 1950 Associated Diagnoses: None Author: Margareth De La Cruz PA-C Subjective Chief complaint 01/11/2023 13:43 EST right low back hip-this is a different pain . Patient is a 72-year-old male. He has a past medical history significant for lumbosacral stenosis and lumbosacral neuritis. He underwent recent bilateral L5-S1 transforaminal epidural steroid injection. This was done on 12/12/2022 and has given him 90% relief. He has some point specific pain on the right side in 1 area if he does certain bending and twisting but he states that this is also getting better. He rates the discomfort a 2/10. He states that he is better able to do things. In fact, he is no longer using the medications given to him. He is not using the Flexeril or the diclofenac. He is walking 30 minutes a day and he states that he is back to his normal activities. He is hopeful to lose weight and get back to doing everything he wants to. He is very pleased with how much relief he has gotten. Health Status Allergies: Allergic Reactions (Selected) Severity Not Documented HydrALAZINE- Palpatations. Statins- Muscle ache., Allergies (2) Active Reaction hydrALAZINE palpatations statins muscle ache Current medications: (Selected) Prescriptions Prescribed cyclobenzaprine 10 mg Tab: 10 mg = 1 tab(s), Oral, TID, PRN for spasm, # 30 tab(s), Refills(s) 0, Pharmacy: [id number], 182.9, cm, 11/08/22 15:17:00 EST, Height/Length Dosing, 113.4, kg, 12/29/21 13:07:00 EST, Weight Dosing gabapentin 100 mg Cap: 100 mg = 1 cap(s), Oral, Bedtime, # 30 cap(s), Refills(s) 0, Pharmacy: [id number], 182.9, cm, 11/08/22 15:17:00 EST, Height/Length Dosing, 113.4, kg, 12/29/21 13:07:00 EST, Weight Dosing Documented Medications Documented Alpha Lipoic Acid 600 mg oral capsule: 600 mg = 1 cap(s), Oral, Daily, Refills(s) 0 Humulin 70/30: 25-10 units, BIDAC, Refill(s) 0 Norvasc: 5 mg, Oral, Daily, Refills(s) 0 PreserVision AREDS: 1 cap(s), Oral, Daily, Refill(s) 0 Ranexa: 500 mg, Oral, BID, Refills(s) 0 Repatha 140 mg/mL subcutaneous solution: SubCutaneous, q2wk, Refills(s) 0 Tylenol: 500 mg, PRN PRN as needed for pain, Refills(s) 0 Zetia: 10 mg, Oral, Daily, Refills(s) 0 aspirin: 81 mg, Daily, Refills(s) 0 calcium (as carbonate) 600 mg oral tablet: 600 mg = 1 tab(s), Oral, Daily, Refills(s) 0 diclofenac sodium 1% topical cream: Refill(s) 0 lisinopril: 10 mg, Daily, Refills(s) 0 testosterone 2% transdermal cream: See Instructions, apply topically daily, Refills(s) 0 Problem list: All Problems History of heart attack / SNOMED CT 7479812504 / Confirmed Acute angina / SNOMED CT 714691362 / Confirmed Irregular heart beat / SNOMED CT 722113330 / Confirmed HTN (hypertension) / SNOMED CT 9100878612 / Confirmed High cholesterol / SNOMED CT 69035349 / Confirmed H/O heart bypass surgery / SNOMED CT 461971421 / Confirmed Apnea, sleep / SNOMED CT 197937721 / Confirmed CPAP (continuous positive airway pressure) dependence / SNOMED CT 5574573874 / Confirmed Enlarged prostate / SNOMED CT 600343492 / Confirmed Chronic kidney disease (CKD) / SNOMED CT 7914714624 / Confirmed Diabetes / SNOMED CT 474261818 / Confirmed Carpal tunnel syndrome / SNOMED CT 99095142 / Confirmed Anemia / SNOMED CT 889712781 / Confirmed Arthritis, rheumatoid / SNOMED CT 334863645 / Confirmed Obesity / ICD-9-CM 278.00 / Possible Obesity / SNOMED CT [id number] / Possible Objective Vital Signs 01/11/2023 13:43 EST Peripheral Pulse Rate 76 bpm Respiratory Rate 18 br/min Systolic Blood Pressure 166 mmHg HI Diastolic Blood Pressure 75 mmHg Mean Arterial Pressure, Cuff 105 mmHg General: Alert and oriented, No acute distress. Eye: Normal conjunctiva. HENT: Normocephalic, Normal hearing. Cardiovascular: No edema. Musculoskeletal Normal range of motion. Normal strength. Integumentary: Warm, Dry, [place]. Injection site well-healed Neurologic: Alert, Oriented. Psychiatric: Cooperative, Appropriate mood & affect. Impression and Plan Patient is a 72-year-old male with a past medical history significant for lumbosacral stenosis and lumbosacral neuritis. Patient underwent bilateral L5-S1 transforaminal epidural steroid injection done on 12/12/2022 and has obtained significant relief. He is comfortable and happy. He is doing well. He does not have any significant pain or complaints. He does not have any concerns at this time. He wants to just continue to monitor himself and see how he does. He is not using the medications any longer. He is going to follow-up with her services as needed. He will call should he require a repeat injection. LEONOR score: 19 Normal [facility] [place] Comment on above: Result Comment: Elec tronically Signed By: Margareth De La Cruz PA-C\.br\Date and Time Signed: 01/11/23 14:09 EST\.br\Electronically Co-Signed By: Tutu Guzman MD\.br\Date and Time Co-Signed: 01/11/23 19:21 EST Office/Clinic Note-Physician on 01-11-2023 Office/Clinic Note-Physician [id number]#1. 00CD:127 [facility] Patient Correspondenceon Patient Correspondence [id number]#1. 00CD:127 [facility] Patient Correspondence [id number]#1. 00CD:127 [facility] Patient Correspondence [id number]#1. 00CD:127 [facility] Patient History Officeon Patient History Office [id number]#1. 00CD:127 Normal [facility] [place] Patient History Office [id number]#1. 00CD:127 Normal [facility] [place] Coding Summary.on 12-14-2022 Coding Summary. CD:[id number]:[id number] Gh 0bWw+PGhlYWQ+IS5DVDFlP 99jqKTqoK7HJ3nDET2DTWN SHHYVLQ4TKN2xyZP4OKfxW 2VybiAv ZyglcHMeHK60PBy6ZLP6eD biSDaduW3lrMIcR6g6VcMh QM12dX26GFhsPKKoXoQ9Br ZpbjsgbWFy L4ugVqKwlTPhQgg+PHRhYm xlIHdpZHRoPScxMDAlJyBz uXmxOW0aOd3jMHMfLKYxqW xhcHNlOiBj j9dxRFCkMTufFQ3ksWrvA1 ScqEL9NTTib8u3Vr79iVV+ OGWcTWA4iKwxQFkbd382Rf Qqk2bdNRP8 mTGqDAifLFQ4P71nt3W2YN DnZRGsTOB1eAT3vF4xrEmu slbeI5PtnDVqUiN0JJH4qF NdkJ4htUnb bqohlR8jBtd+U12XFM7YFB MLPW2AUyf4N6ExWxkspRQ+ FV90FJQpGE67cLTyhFVlo0 bjbEz2XcPd CJVnHXC9oCfnTMkve4WdCN GvF49nzUGtq9G9URWwpCxg mSCfFuWrbZU7dE2eGQhwkj cnc4dajqbt Erfzp6cici62jJ18S49yCN npYPWuTJB7NLLrEHVzeCsd ut0lgI6qFs4+BVekm6yhs2 ffdMa2BcNm LBRaurQguNktJRG2b9TeVt 37F9GkqCybq2HoUvl9su62 gREsz8Q7sOB1PUkrQUSioV 8kPPrxIrO3 EADzPbDthU50tWKqRXerHv 6kxTiwyMtfUK1uBSRchpej NYMelX3tHLIlnCYytVuoBB 4wNTBpbjtm a240FzNeQAS5QHWomOPyA1 XahF9hQaSwUVFdAWSyM9Qq fRQxFUwvT536JKbqWhU2NB HplmQpE2Vh KXOexKumUqN7e3Y3Ve0Vx2 IlfnblVHA5XEjrLKBxNrH2 EyRyZbC9N2ZhMhy1VGLliG vbDT5fM0Ha KEOwlkqwreolmNO0WXEiOF OqvP80mOEtBNbcMs4gq1F1 r488WROdNLAcuY42Xz8qhN ogMTBwdCBU cE3gtxgxo2hiyogeOkHwIG OwLZu6XQq9LCHgzGwtOlIg BBG0MgN0XQE9oQHkuR1eeU zvdcnvuV5n Oyc+H76axU9mPUQ1UBI0wt mwRHJxxnWlYP74FS38W4Jo PjwvdGFibGU+PGRpdiBzdH kfGX0jDxWf f1akh4BaIQwiQ6GpYHCpVV bhBdq9MTDxXRO5sGP7eR3o JPCmXCfll1N7lSJ1B5Rmdo Hhlh6vo7mf JJZuFYohK57awFWai7L4ZG CoyJN0CDAcvZxqMbLodF84 Oyc+MLRhkTyjv7NbYdqqq8 axn7qefWb9 XiNjBJMsvzHurOalWCX0a1 OxIz64J13cVOwzYXIfQSJc MOZqHDVnzNahfc4gfP4vNi 8+PGNvbCB3 mDP4rG2uXHSfQoF1SMnrP6 59WwAveMQrPqxhx2rrc1ox hVi9KoOtVFXygrQotGazER K1r8SzMf83 I91uFKvqXSDwHOXiUNOlAB DpqRrrly0frP3pNz4+PC9j m2izcl28uQ06uML+PHRkIH Q7zWqfKFux WAUtcY0uHWazYlW2GMPxRb NssM89qWUxBVyaMc8rwKwo qMxlYU8kAZUnhxgxb862Bx Tmi7tqCTJn bUGmEGszRNK5Y63kq4E7TW YmPGUdNNY5aGE8pE9ccVoo bjogbGVmdDsgdmVydGljYW kmLFnsF081 IHRvcDsnPlBhdGllbnQgTm VsMEf1I3YvMjf4BIGfgChg DV3weQQdIPtlPq4piFunsR ayLR6dZXDm dqjcp851PiNuu0noTNVchZ XgNZahQDP0D86ft1U8JYVe KJZtWTV6pSM7bS7odSzvby ogbGVmdDsg wbTwvKymTZxmUUejV675BO RvcDsnPkJpcnRoIERhdGU6 NQ01TF04xGKss5M5iLL4K2 BhZGRpbmct zbmfvRO3IBPcDIYwqO36Ew 2jmWtoCh9rPNWgMUI7ZCQj sFPcV6RfyR4tWmDxVWZaPX KyD0JlxHMd UCakB392RHzxUxW2VGJplv QvH6XyJEHgvCuiOzH1a6T7 Nr2OM7Q9UF21WQ68xCSuv7 P4dPI7P7Zy VZJjpeuhbuworLL9RAEgWW TkkI58Rw6sjGyhHa2sGXKw SNH6WSSxbHMkW7BntQ5qDk AjMDAwMDAw I1WamJFaDCzlC540MLlaIc Q2ZKHodoKfU1WwXKZloZwt OxU5y4X1Ox0NWNn5NH47CM 70vAVhi1M9 fAG6E8McPUYbwegzmcttzV A4QBZvBUGwrW51Sw1tfBhc Oc8dTLPtEMG3FPItzNPdI7 TrsN6lYhJh AZMvAKOuX7WuyMGcGIspO7 41VBteDsB5NSRaqpHgV5Ql URJbkRusAlD4x0M6Ee4PHL OpAQ65RGM3 nOA9PX03WX32A0EsWcvtgP FibGU+PHRhYmxlIHdpZHRo IDnoMEQpOqQjqEulLB3aVo 9yZGVyLWNv vOiluSNeGlPnw0uzYNBgDT bbTH2imMjgJ4FzyJD7YPAg h4z6Bf51Z92zD8GpeGE+PG TzaLR8lMM5 iO6jPgWiMhE9KXphM102Bn DpxNCeTwtfy7bhr4vbmBb1 VuN4HUZlphEfvJtmWOV4z4 VnBv21V93p IHdpZHRoPSIxNSUiIHZhbG jcmh1jeV8fIv5+PGNvbCB3 lTI4rD0sPdTdCzO6JLqeQ9 49InRvcCIv Uyukw4wbz6fjvNs9FyXnXZ MwaxFsvVqnJJX5h9NtQl75 Q3UemMawr7RoUqm6yv00vP Tir0F8qQO3 B4RyBEYzoavmqQNbaWlnRE 1xXGIrvogoMDZlcB3fAJOf G0i3IhQcHhY6GJprD1Rkwq A3DHThuDVp JUcmIGY6N26jy1E8XANqTV VgOCO4iAW5rU5udGlahkjp bGVmdDsgdmVydGljYWwtYW rsI491TVBt nLkpYTCwjG0kRKTcbCWetM imCG8gEJAspiohZbBOCVHX GBRYQZVTITZOSY93QT55lK Ntb1H5qKE9 E7PqFBYodcbvbjepwKP0NF JfJFPxcW27qZToDQyhCz8h k7B1l492DRCoBLKkiC05Td 9udDogMTBw jJEFyZ8xwhyjl6awaypoFi QuCWDoBJt6FWd1JXEctIqh EnPzPJJ5CcA9AYN6hBHomC 1hbGlnbjog kE2qJud+ZGFuHHuaHOc6LR wvdGQ+RANkQAG3cSmhWNrv JMPrzG9aPXBgJ9f3KtYhDz H2HImkQ7Fr SQOteidfVd78sA1rNyOoOm F7OZdlL4NqfdU5PRQhiBHc TPnyWTW0Y65ag1L8LBBeHI KyLRX5cQD0 tH9dgAokyplnvUGqwKvgfa IiePbnAHimWVpqT856LSVu jJasIfb9SGypGWJrQE23XM 71vPMpo6S2 xER4X9QkASNnfvxvxrjgzB Z3MMUzPXZnlS65uFJyOXqs An4ep5V6h455DWHzYZQljK 61Kl2nbTkw EJOlmGWHkE8nqyrxq1bnjo ycKeNaWCKoVBk6OOr8JQMy vHxlJyRwWJJ8WyS9AHH0kL BbpB6yeWkg ioxnrF7tMgd+TWFsZTwvdG Q+NOErDEI4wMaiHHepMPHk aP2hJQAhS1l1PtSmUzB5AF yaE4XgAHVj dikxQe19dN1aFgBdVhQ9EW ptV6YaxjQ5KGDhpXKrFAnb YQA3E21yk6C5AXEdMJBuCJ M5gNA3gM4v bGlnbjogbGVmdDsgdmVydG nbNFnuWZzzX296EMNlmPcu VnOduI1gLWQsSEksoBRtpV wvdGQ+PC90 jh08F0DwLhziRza8CGUjKI S1lSD8xP8qAEWuGMjei5S0 qCQ4P2ZhjuSgjv2xy3axNX KiEBajA54f eFQbv1T0CANvxWJ9WZFvtI anMwMfgV01Uyb+PGNvbGdy g9VhFmuly9sfq2raeLr1Jk MwJSIgdmFs gSyuTBO2l9IoQj20R01tXR dpZHRoPSIzMCUiIHZhbGln iu9jdA1bJo7+SGCnnGT1nY X3fW0tEfRo QvP0DOuqH985ZuIkjCGdBl ghr3oxd6tsdUs8WyDaXBTp neFynIrkZRE9d6CgJj50A9 JkqEoat3Tu Fzd9pl87zCIow5M2fGV0B1 LvNAAbbakveWRnbUhyRW0h KCKuorlwEOQmuN1gJUWnP0 s1QmGmKhD0 XPaeG0NoshW8GABmmRPkHL XjmGQBvC3iiklxr7epivkd XrHiREQoXFj4ZQh1WSHdaZ duOiBsZWZ0 WoH6RVT4fVWofW3voWfzak hlwF5qQud+CBw2c4bjjCNn OU2kcCQ2SV93ES83vOMlr6 Z4rFG0I7Qs KLDyxedfbpbydGZ3DRXwWG IqgH90Gn4xoDnxTp2kTHBe UHT8MZEoyQWeE1MqhE3xMx AjMDAwMDAw R9VihHJnUAmyK773LHdcWi V3FWQeuoHbR7CmQJJqiYny PvP8u1O6Yi4DJI68DF71GD 93qIZsu4X1 kRD6K2LuAWAywalrukwmbF K5BSAoGUFplQ04Sf2buUmg Oq4kNDCpAVI6VPUweTPmF7 RveP6vOfLe IWGeEJIuS1IhdEQcLLxbZ3 86LXpvVjZ1RZRijvOzT1Mj LBZlmAtcJaV8s8P5Jo1SNj 76JK98HI67 gWGwi2Q3dTV0A3VyFQVeyl crlrasePN0XNTwYCBylJ02 Jp9oiNbpCf8jMMWnDZE5II MogQRlB2Zt jK1nZcCoNNErJKNdW3PqyK OpIBadU043OAboRyB1ESXb mcFrW0RjEDUdmOooTsC5b9 J6Gb9HITkc hbb1T3FmYrdcbRT+PC90YW TzAS88lUXuhUHmj3dhiJm9 EbCgBUCoRMR4pCkaGFihv1 HfSDFoB42j bGFw (more content not included)... [facility] CHEMISTRYOrdered By: Lab ROP User on 12-12-2022 Glucose [Mass/Vol] 157 mg/dL High 55 - 99 mg/dL FT C POC Subsection POC Device SN [id number] Invalid Interpretation Code [facility] POC Subsection POC User ID [id number] Invalid Interpretation Code [facility] POC Subsection POC Username THOMAS FARR Invalid Interpretation Code [facility] POC Subsection Capillary Glucose POCon 11-19 Glucose [Mass/Vol] 157 mg/dL High 55-99 [facility] [place] Comment on above: Performed By: #### 2 [id number] ####[facility] [place] [address] [place] [address] Consent for Procedure/Surger yon 12-12-2022 Consent for Procedure/Surgery [id number]#1.0 0CD:127 [facility] Consent for Treatmenton 11-19 Consent for Treatment [id number]#1. 00CD:127 [facility] Discharge Instructionson Discharge Instructions [id number]#1.0 0CD:127 [facility] IntraOperative Documentson 0 12-12-2022 IntraOperative Documents [id number]#1.0 0CD:127 Normal [facility] [place] IntraOperative Documents [id number]#1.0 0CD:127 Normal [facility] [place] Main OR Intraoperative Recor don 12-12-2022 Main OR Intraoperative Record IntraOp Document Type FTPM Summary Primary Physician: Tutu Guzman MD Finalized Date/Time: 12/12/22 10:58:23 Pt. Name: TRAE PINEDA Lorenzo Anderson/Sex: 1950 Male Med Rec #: [id number] Physician: Tutu Guzman MD Financial #: [id number] Pt. Type: P Room/Bed: / Admit/Disch: 12/12/22 10:00:20 - Institution: Case Times FTPM Entry 1 Patient Times In Room 12/12/22 10:47:00 Out Room 12/12/22 10:58:00 Procedure Times Start 12/12/22 10:50:00 Stop 12/12/22 10:57:00 Anesthesia Times Last Modified By: Julia Casper RN 12/12/22 10:58:17 Case Attendance FTPM Entry 1 Entry 2 Entry 3 Case Attendee Thomas ARMANDO, Leanne Alcaraz RN, Deysi Smith Role Performed Surgeon - Primary Promotion Manager Staff - Other Time In 12/12/22 10:47:00 12/12/22 10:47:00 12/12/22 10:47:00 Time Out 12/12/22 10:58:00 12/12/22 10:58:00 12/12/22 10:58:00 Procedure TRANSFORAMINAL EPIDURAL TRANSFORAMINAL EPIDURAL TRANSFORAMINAL EPIDURAL STEROID STEROID STEROID INJECTIO(Bilateral) INJECTIO(Bilateral) INJECTIO(Bilateral) Comments Last Modified By: Pennie PEREZ, Julia Casper RN, Julia Spencer RN 12/12/22 10:58:19 12/12/22 10:58:19 12/12/22 10:58:19 Entry 4 Entry 5 Case Attendee Pennie PEREZ, Mago Hernandes RN Role Performed Release Specialist - Primary Scrub - Primary Time In 12/12/22 10:47:00 12/12/22 10:47:00 Time Out 12/12/22 10:58:00 12/12/22 10:58:00 Procedure TRANSFORAMINAL EPIDURAL TRANSFORAMINAL EPIDURAL STEROID STEROID INJECTIO(Bilateral) INJECTIO(Bilateral) Comments Last Modified By: Julia Casper RN, RN, Emily C 12/12/22 10:58:19 12/12/22 10:58:19 Perioperative Protocols FTPM Pre-Care Text: Implements protective measures prior to operative or invasive procedure, confirms identity before the operative or invasive procedure, verifies operative procedure, surgical site, and laterality Entry 1 Procedure(s) TRANSFORAMINAL EPIDURAL Patient Identity Birthday, ID Band STEROID Verified (select at Check, Patient INJECTIO(Bilateral) least 2): Participation Consents / H and P HandP, Surgery/Procedure Operative Site Present Verified Consent Marking Verified Surgical Site Yes Laterality Verified Yes Verified Procedure Verified Yes Correct Patient Yes Position Verified Availability Equipment, Medication, Prep Dry Yes Verified (If X-ray Applicable) PreOp Antibiotic No Time Out Julia Casper RN, Given Participants Tai PEREZ, Thomas Mercedes MD, Matthew Cam RN, Lia Mathew Amy Time Out Complete 12/12/22 10:48:00 Outcomes Met? Yes Last Modified By: Julia Casper RN 12/12/22 10:49:13 Post-Care Text: The patient is free from signs and symptoms of injury caused by extraneous objects Allergy Information FTPM Pre-Care Text: Verifies allergies Entry 1 Allergies Reviewed? Yes Allergies Reviewed Self/Patient With Outcomes Met? Yes Last Modified By: Julia Casper RN 12/12/22 10:16:30 Post-Care Text: The patient received appropriate medication(s) safely administered during the perioperative period Surgical Procedures FTPM Entry 1 Procedure Description Procedure TRANSFORAMINAL EPIDURAL Modifiers Bilateral STEROID INJECTION Surgeon Description L5 TFESI Primary Procedure Yes Primary Surgeon Tutu Guzman MD Start 12/12/22 10:50:00 Stop 12/12/22 10:57:00 Anesthesia Type MAC Surgical Service Pain Management Wound Class 1 - Clean Last Modified By: Julia Casper RN 12/12/22 10:58:20 General Case Data FTPM Pre-Care Text: Classifies surgical wound, implements aseptic technique, initiates traffic control Entry 1 Case Information OR Pain Proc Room Case Level Level 2 Wound Class 1 - Clean Specialty Pain Management Preop Diagnosis M48.062 Postop Same As Preop Yes Postop Diagnosis M48.062 Outcomes Met? Yes Last Modified By: Julia Casper RN 12/12/22 10:49:37 Post-Care Text: The patient is free from signs and symptoms of infection Skin Assessment (Pre Procedure) FTPM Pre-Care Text: Implements protective measures to prevent skin/ tissue injury due to thermal or mechanical sources Evaluates for signs and symptoms of physical injury to skin and tissue Entry 1 Skin Integrity Intact, [place], Warm, and Skin Abnormality No Dry Outcomes Met? Yes Last Modified By: Julia Casper RN 12/12/22 10:16:37 Post-Care Text: The patient is free from signs and symptoms of injury caused by extraneous objects Patient Positioning FTPM Pre-Care Text: Identifies physical alterations that require additional precautions for procedure-specific positioning, verifies presence of prosthetics or corrective devices, positions the patient, evaluates the patient for signs and symptoms of injury as a result of positioning Entry 1 Procedure TRANSFORAMINAL EPIDURAL Body Position Prone STEROID INJECTIO(Bilateral) Feet Uncrossed? Yes Left Arm Position Resting at Side Right Arm Position Resting at Side Left Leg Position Ext (more content not included)... Normal [facility] Main OR Preoperative Recordo n 12-12-2022 Main OR Preoperative Record Holding Area Document Type FTPM Summary Primary Physician: Tutu Guzman MD Finalized Date/Time: 12/12/22 10:11:34 Pt. Name: TRAE PINEDA/Sex: 1950 Male Med Rec #: [id number] Physician: Tutu Guzman MD Financial #: [id number] Pt. Type: P Room/Bed: / Admit/Disch: 12/12/22 10:00:20 - Institution: Case Times Holding FTPM Pre-Care Text: Verifies consent for planned procedure, identifies individual values and wishes concerning care, includes family members in perioperative teaching Secures patient's records' belongings, and valuables, maintains patient's dignity and privacy, and maintains patient confidentiality Entry 1 In Holding 12/12/22 10:09:00 Outcomes Met? Yes Last Modified By: Barb Schmidt RN 12/12/22 10:09:47 Post-Care Text: The patient participates in decisions affecting his or her perioperative plan of care The patient's right to privacy is maintained Surgery Checklist FTPM Entry 1 Patient Birthday, ID Band Procedure History and Physical, Identification: Check, Patient Verification: Surgical Consent, With Participation Patient NPO after Midnight: No Date/Time: 12/12/22 10:09:00 Results Reviewed 0900 bowl of cereal Personal Items: Dentures, Glasses Comments: Personal Items Pt. wearing lower Complaints of Pain: Yes Comment: partial and glasses. Pain Comment: 5/10 lower back pain Operative Site Yes Marking: Marked By: Dr. Guzman Location: bilateral L5-S1 Availability Equipment, X-Ray Verified: Does Patient Smoke No Patient states Yes Comment - Adult -Indigo postop adult Supervision supervision available Case Cancelled in No Holding Area see comments below for reason Last Modified By: Barb Schmidt RN 12/12/22 10:11:24 Finalized By: Barb Schmidt RN Document Signatures Signed By: Barb Schmidt RN 12/12/22 10:11 Barb Schmidt RN 12/12/22 10:11 Normal [facility] Operative Reporton Operative Report SURGERY DATE: 12/12/2022 PREOPERATIVE DIAGNOSIS: Lumbar stenosis with neurogenic claudication POSTOPERATIVE DIAGNOSIS: Lumbar stenosis with neurogenic claudication OPERATION: Bilateral lumbar transforaminal epidural steroid injection under fluoroscopic guidance of the left and right L5 nerve roots at the left and right L5-S1 foramen SOLUTION: 1 mL of lidocaine 2%, 3 mL normal saline, and 1 mL of Kenalog 40 mg; 5 mL total, 2.5 mL per site; contrast was 1 mL of Isovue per site; local anesthetic was 2 mL of lidocaine 1% per side ANESTHESIA: Local COMPLICATIONS: None NOTES: The patient has a 2-month history of bilateral lower back and leg pain. 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 His symptoms correspond to the left and right L5 nerve roots. He does not want spine surgery. He has had persistent pain that limits his function in spite of a recent course of physical therapy. He underwent this same injection a year ago and had 90% pain relief and functional improvement for 9 months. PROCEDURE: After informed consent was obtained the patient was brought to the Operating Room and placed in a prone position. The area in question was prepped and draped a sterile fashion. An ipsilateral oblique fluoroscopic view of the lumbosacral spine was obtained and after local anesthetic was administered into the skin, a 22-guage Chiba needle was inserted into the skin and advanced to the 6 o'clock position beneath the left L5 pedicle under intermittent fluoroscopic guidance. Proper needle position was confirmed via AP and lateral fluoroscopy. Contrast was administered under live fluoroscopy in both views and demonstrated appropriate epidural and nerve root uptake and the absence of any intravascular or intrathecal spread. The local anesthetic steroid solution was injected incrementally. The needle was removed. Bleeding was nil. The procedure was repeated in the same manner at the same level on the opposite side. The patient tolerated the procedure well and was transferred to the Recovery Room in good condition. Tutu Guzman M.D. rj Dictated: 12/12/2022 [id number] Transcribed: 12/12/2022 Normal [facility] Comment on above: Result Comment: Elec tronically Signed By: Thomas ARMANDO, Tutu\.br\Date and Time Signed: 12/12/22 16:35 EST Follow-Upon 11-20-2022 Follow-Up [id number] Trae Pineda 1950 M Date Provider Department Center 11/20/2022 [facility] Second Fl No family history on file Level of Service:[address]8570 [place] OFFICE/OUTPATIENT ESTABLISHED LOW MDM 20-29 MIN Reason for Visit and Comments: Follow-up [029190] - Follow up with lab results, pt states he is doing well since taking his abx, no pain other issues Normal [facility] Insurance Correspondence Off iceon 11-20-2022 Insurance Correspondence Office [id number]#1. 00CD:127 Normal [facility] TESTOSTERONE, FREE,DIRECT, T Katarzyna 09-01-2022 Free Testosterone(Direct) 4.2 pg/mL Critically low 6.6-18.1 [facility] Comment on above: Result Comment: Perf ormed at: BN Performed By: #### T ESTFRD #### [facility] [address] [address] [address] Zan Escalante Testosterone [Mass/Vol] 171 ng/dL Critically low 264-916 [facility] Comment on above: Result Comment: Adul t male reference interval is based on a population of healthy nonobese males (BMI <30) between 19 and 39 years old. jeancarlos Sullivan.al. JCEM 2017,102;6109-7971. PMID: [id number]. Performed at: CB Performed By: #### T ESTFRD #### [facility] [address] [place] [address] Dr. Zan Escalante ESTRADIOLon 08-30-2022 Estradiol 28.9 pg/mL Normal 7.6-42.6 [facility] Comment on above: Result Comment: Anastacio chong ECLIA methodology Performed By: #### L BCLH #### [facility] [address] [place] [address] Dr. Zan Escalante FSHon 08-30-2022 FSH 3.0 mIU/mL Normal 1.5-12.4 [facility] Comment on above: Performed By: #### L BCFSH #### [facility] [address] [address] [address] Zan Escalante LUTEINIZING HORMONE (LH)on LH 5.7 mIU/mL Normal 1.7-8.6 [facility] Comment on above: Performed By: #### L BCLH #### [facility] [address] [address] [address] Zan Escalante PROLACTINon 08-30-2022 Prolactin 8.6 ng/mL Normal 4.0-15.2 [facility] Comment on above: Performed By: #### L BCLH #### [facility] [address] [place] [address] Dr. Zan Escalante SEX HORMONE-BINDING GLOBULIN on 08-30-2022 Sex Horm Binding Glob, Serum 22.7 nmol/L Normal 19.3-76.4 [facility] Comment on above: Performed By: #### S EXHBG #### [facility] [address] [place] [address] Dr. Zan Escalante ECHOCARDIO M/2D COMPLETEon 0 07-31-2022 ECHOCARDIO M/2D COMPLETE Patient: TRAE PINEDA Exam Date: 07/31/2022 : 1950 Gender:M Ordering : DR MOI CAMPBELL M.D. Admission #: [id number] Family : Order #: [id number] CLICK HERE TO VIEW EXAM ECHOCARDIOGRAM REPORT PROCEDURE: CARDIO PULMONARY ECHOCARDIO M/2D COMP INDICATIONS: Dyspnea COMPARISON: None. DESCRIPTION: COMPLETE ECHOCARDIOGRAM Real-time transthoracic echocardiography with 2D, M-mode, spectral and color flow Doppler performed. QUALITY: Technical quality was good. LEFT VENTRICLE: Normal chamber size. Moderate concentric left ventricular hypertrophy. Global left ventricular systolic function is normal. LV EF: Visual estimation of left ventricular ejection fraction is 55-60% DIASTOLIC: Normal diastolic function. ATRIAL SEPTUM: LEFT ATRIUM: Normal chamber size. RIGHT ATRIUM: Mild dilatation. RIGHT VENTRICLE: Mild dilatation. Low normal right ventricular systolic function. TRICUSPID VALVE: Normal mobility and thickness. No stenosis with mild regurgitation. No evidence of pulmonary hypertension. RVSP is 34 mmHg MITRAL VALVE: Normal mobility and thickness. No mitral valve prolapse. No evidence of mitral valve stenosis. There is no mitral annular calcification. Trivial mitral regurgitation. AORTIC VALVE: Normal trileaflet appearance. No visible sclerosis. Normal leaflet mobility. No evidence of aortic valve stenosis. No aortic regurgitation. AORTIC ROOT: Normal diameter and appearance. PULMONIC VALVE: Normal thickness and mobility. No stenosis. Trivial regurgitation. PERICARDIUM: No evidence of pericardial effusion. IVC: Collapses with inspirations. Normal size. PLEURA: CONCLUSION: 1. Moderate concentric left ventricular hypertrophy with normal systolic function. LVEF is 65 to 60%. 2. Mildly dilated right ventricle with low normal systolic function. 3. No significant valvular dysfunction. 4. Normal right-sided pressures. 5. No pericardial effusion. Adult Echocardiography Procedure Report Left Ventricle LVEDD (3.7 - 5.6 cm): 5.09 cm LVESD (2.2 - 4.0 cm): 3.78 cm LVIVS thickness (0.6 - 1.2 cm): 1.45 cm LVPW thickness (0.5 - 1.0 cm): 1.32 cm e': 0.09 m/s LVOT Max Damion (1.5 m per sec): 0.84 m/s Left Atrium Mitral Valve MV E to A Ratio: 1.08 Right Ventricle RV Internal Diastolic Dimension: 4.39 cm Aorta AO Root Diam: 3.00 cm Ascending Ao Diam: 3.10 cm Aortic Valve Peak Velocity (Antegrade Flow): 1.28 m/s Tricuspid Valve TV Mean Gradient: 0.52 mm[Hg] Peak Velocity (Regurgitant Flow): 0.36 m/s Mean Velocity: 0.36 m/s Pulmonic Valve Mean Gradient: 2.42 mm[Hg] Mean Velocity: 0.71 m/s Right Atrium Dictated by: Moi Campbell M.D. on 07/31/2022 at 18:05 Approved by: Moi Campbell M.D. on 07/31/2022 at 18:09 Normal [facility] *URINE CATH CULTUREon 2021 *URINE CATH CULTURE Clinical Report: (D) Specimen/Source: URINE/INTRAOP SPEC Collected: 07/02/2022 14:53 Status: Final Last Updated: 07/04/2022 09:03 (1) 1. Urine GRAM (Final) Many Polys Few Gram Positive Cocci In Pairs And Chains ISO (Final) Staphylococcus epidermidis >10,000 Cfu/mL ISOLATE: Staphylococcus epidermidis -- JOSEPH (mcg/ml) NITROFURANTOIN (FT) <=16 Susceptible OXACILLIN (OX) <=0.25 Susceptible TETRACYCLINE (TE) <=0.5 Susceptible VANCOMYCIN (VA) 1 Susceptible Normal [facility] Comment on above: Order Comment: 1. Ur ine Performed By: #### 3 [id number] #### [facility] [address] Operative Reporton 2 Operative Report MR#: [id number] S [facility] Pt. Name: Trae Pineda Room #: 0C Discharge Date: Birthdate: 1950 OPERATIVE REPORT DATE OF SURGERY: 07/02/2022 SURGEON: Diony Ariza MD DIRECTOR INDUSTRIAL NURSING: Kolby ARMANDO PGY3 PREOPERATIVE DIAGNOSIS: Benign prostatic hyperplasia history, hematuria POSTOPERATIVE DIAGNOSIS: same Procedure: Cystourethroscopy, biopsy of bladder neck/prostate and fulguration FINDINGS: Sediment in bladder and cloudy urine SPECIMEN: Urine sent for culture. IV FLUIDS: IV fluids per Anesthesia records. INDICATION FOR PROCEDURE: 72 yo M hx GLPVP with cystoscopy 06/26/22 with area of bladder neck/prostate on 3-o clock position on left side with bleeding and regrowth of L Lateral lobe. Prior to today's procedure, the patient's H and P was reviewed and informed consent was obtained. OPERATIVE DETAILS: The patient was brought to the cystoscopy suite and placed on continuous pulse oximetry and cardiac monitoring by Anesthesia. IV antibiotics including Ancef administered. The patient was placed in dorsal lithotomy position and prepped and draped in the normal sterile fashion. Time-out was performed confirming the patient, procedure, all in the room agreed. A well lubricated rigid 22-Vietnamese cystoscopic sheath with a 30-degree lens was inserted into the urethral meatus and advanced into the bladder. Due to left regrowth had to veer cystoscope to the right in order to enter the bladder. Urethra: no strictures, false passages or polyps Prostate: regrowth L lateral lobe and some median in nature causing obstruction with an area of bleeding on this left side and some generalized oozing Bladder neck: Normal Bladder: no diverticula, trabeculations, lesions or masses Ureteral orifices: normal orthotopic position, sediment in bladder/urine Area of velvety irritation and bleeding was biopsied. This area and any generalized venous oozing was fulgurated. There was some remaining bleeding due to scope trauma so 18 japanese leggett was inserted. Urine was with significant sediment and was sent for culture. The patient was awakened by Anesthesia and transferred to PACU in stable condition. Dr Ariza was present throughout the procedure. PLAN: The patient will be discharged with leggett removal tmrw due to hematuria Electronically Signed by: Diony Ariza MD 07/03/2022 02:50 P Diony Ariza MD I was present for the entire procedure. Date Dict: 07/02/2022/03:30 P/Ariella Jarrett MD Date Trans: 07/02/2022 03:30 P/ [id number] cc: Cristobal Michel D.O. [facility]5 [facility] A [facility] [id number] Normal The [facility] POC GLUCOSE LABon 07-02-2022 Glucose [Mass/Vol] 130 mg/dL High 70-100 [facility] Comment on above: Performed By: #### 8 [id number] #### [facility] [address] [place] [address], [facility] MICROALBUMIN URINEon 022 Albumin, Urine 42.2 ug/mL Normal Not Estab. The [facility] Comment on above: Performed By: #### L BCL #### [facility] [address] [place] [address] Dr. Zan Escalante CBC AUTO DIFFon 06-29-2022 BASO # 0.1 103/ul Normal 0.0-0.1 [facility] Comment on above: Performed By: #### C BC #### [facility] [address] [address] [address] Zan Escalante Basophils/100 WBC (Bld) 1.1 % Normal 0.2-2.0 [facility] Comment on above: Performed By: #### C BC #### [facility] [address] [place] [address] Dr. Zan Escalante EO # 0.6 103/ul Normal 0.0-0.7 [facility] Comment on above: Performed By: #### C BC #### [facility] [address] [address] [address] Zan Escalante Eosinophils/100 WBC (Bld) 7.0 % Normal 0.9-7.0 [facility] Comment on above: Performed By: #### C BC #### [facility] [address] [place] [address] Dr. Zan Escalante Erythrocyte distribution width (RBC) [Ratio] 13.8 % Normal 11.0-15.0 [facility] Comment on above: Performed By: #### C BC #### [facility] [address] [place] [address] Dr. Zan Escalante Hematocrit (Bld) [Volume fraction] 40.9 % Critically low 42.0-54.0 [facility] Comment on above: Performed By: #### C BC #### [facility] [address] [place] [address] Dr. Zan Escalante Hemoglobin (Bld) [Mass/Vol] 13.1 g/dL Critically low 14.0-18.0 [facility] Comment on above: Performed By: #### C BC #### [facility] [address] [place] [address] Dr. Zan Escalante IG # 0.04 10e3/ul Critically high 0.00-0.03 [facility] Comment on above: Performed By: #### C BC #### [facility] [address] [place] [address] Dr. Zan Escalante IG % 0.5 % Normal 0.0-0.5 [facility] Comment on above: Performed By: #### C BC #### [facility] [address] [place] [address] Dr. Zan Escalante LYMPH # 3.0 103/ul Normal 1.2-3.8 [facility] Comment on above: Performed By: #### C BC #### [facility] [address] [place] [address] Dr. Zan Escalante Lymphocytes/100 WBC (Bld) 33.4 % Normal 20.5-60.0 [facility] Comment on above: Performed By: #### C BC #### [facility] [address] [place] [address] Dr. Zan Escalante MANUAL DIFF REQ NO Normal [facility] Comment on above: Performed By: #### C BC #### [facility] [address] [place] [address] Dr. Zan Escalante MCH (RBC) [Entitic mass] 29.6 pg Normal 25.9-34.0 [facility] Comment on above: Performed By: #### C BC #### [facility] [address] [place] [address] Dr. Zan Escalante MCHC (RBC) [Mass/Vol] 32.0 g/dL Normal 29.9-35.2 [facility] Comment on above: Performed By: #### C BC #### [facility] [address] [address] [address] Zan Escalante MCV (RBC) [Entitic vol] 92.3 fL Normal 80.0-94.0 [facility] Comment on above: Performed By: #### C BC #### [facility] [address] [place] [address] Dr. Zan Escalante MONO # 0.8 103/ul Normal 0.3-0.8 [facility] Comment on above: Performed By: #### C BC #### [facility] [address] [place] [address] Dr. Zan Escalante Monocytes/100 WBC (Bld) 9.4 % Normal 1.7-12.0 [facility] Comment on above: Performed By: #### C BC #### [facility] [address] [place] [address] Dr. Zan Escalante NEUT # 4.3 103/ul Normal 1.4-6.5 [facility] Comment on above: Performed By: #### C BC #### [facility] [address] [place] [address] Dr. Zan Escalante Neutrophils/100 WBC (Bld) 48.6 % Normal 43.0-75.0 [facility] Comment on above: Performed By: #### C BC #### [facility] [address] [place] [address] Dr. Zan Escalante Platelet mean volume (Bld) [Entitic vol] 11.2 fL Normal 9.5-13.5 [facility] Comment on above: Performed By: #### C BC #### [facility] [address] [place] [address] Dr. Zan Escalante PLT 185 103/ul Normal 150-450 [facility] Comment on above: Performed By: #### C BC #### [facility] [address] [place] [address] Dr. Zan Escalante RBC 4.43 106/ul Critically low 4.70-6.10 [facility] Comment on above: Performed By: #### C BC #### [facility] [address] [place] [address] Dr. Zan Escalante WBC 8.9 103/ul Normal 4.0-11.0 [facility] Comment on above: Performed By: #### C BC #### [facility] [address] [place] [address] Dr. Zan Escalante Covid-19 PCR ([facility]on 06-18 SARS-CoV-2 (COVID-19) RNA KRISTEL+probe Ql (Unsp spec) Not detected Normal NOT DETECTED [facility] Comment on above: Result Comment: This test is not yet approved or cleared by the [place] FDA. When there are no FDA-approved or cleared tests available, and other criteria are met, FDA can make tests available under an emergency access mechanism called an Emergency Use Authorization (EUA). The EUA for this test is supported by the [employer] Senior [employer] of Health and Human Service's (HHS's) declaration that circumstances exist to justify the emergency use of in vitro diagnostics for the detection and/or diagnosis of the virus that causes COVID-19. This EUA will remain in effect (meaning this test can be used) for the duration of the COVID-19 declaration justifying emergency of IVDs, unless it is terminated or revoked by FDA (after which the test may no longer be used). When diagnostic testing is negative, the possibility of a false negative should be considered in the context of a patient's recent exposures and the presence of clinical signs and symptoms consistent with SARS-CoV-2. Performed By: #### L BCLH #### [facility] [address] [place] [address] Dr. Zan Escalante GLYCOHEMOGLOBIN A1Con 2021 ADA RECOMMENDATION SEE BELOW Normal [facility] Comment on above: Result Comment: ADA RECOMMENDED LIMIT 4.0 - 6.0 ADA THERAPEUTIC TARGET < 7.0 ACTION SUGGESTED > 7.0 Performed By: #### A 1C #### [facility] [address] [place] [address] Dr. Zan Escalante Glucose [Mass/Vol] 143 mg/dL Normal [facility] Comment on above: Performed By: #### A 1C #### [facility] [address] [address] [address] Zan Escalante HbA1c (Bld) [Mass fraction] 6.6 % Critically high 4.5-6.2 [facility] Comment on above: Performed By: #### A 1C #### [facility] [address] [address] [address] Zan Escalante LIPID PROFILEon 06-29-2022 CHOL-HDL RATIO NORM SEE BELOW Normal [facility] Comment on above: Result Comment: 3.3 - 4.4 LOW RISK 4.4 - 7.1 AVERAGE RISK 7.1 - 11.0 MODERATE RISK >11.0 HIGH RISK Performed By: #### B MP, LIPID #### [facility] [address] [place] [address] Dr. Zan Escalante Cholesterol [Mass/Vol] 105 mg/dL Normal <=200 [facility] Comment on above: Performed By: #### B MP, LIPID #### [facility] [address] [address] [address] Zan Escalante Cholesterol in HDL [Mass/Vol] 39 mg/dL Critically low 40-60 [facility] Comment on above: Performed By: #### B MP, LIPID #### [facility] [address] [place] [address] Dr. Zan Escalante Cholesterol in LDL [Mass/Vol] 45.0 mg/dL Normal [facility] Comment on above: Performed By: #### B MP, LIPID #### [facility] [address] [address] [address] Zan Escalante Cholesterol.total/Ch olesterol in HDL [Mass ratio] 2.7 {ratio} Normal [facility] Comment on above: Performed By: #### B MP, LIPID #### [facility] [address] [address] [address] Zan Escalante HDL NORMAL > or = 60 mg/dl - LO W CARDIOVASCULAR RISK <40 mg/dl - HIGH CARDIOVASCULAR RISK Normal [facility] Comment on above: Performed By: #### B MP, LIPID #### [facility] [address] [address] [address] Zan Escalante LDL CALC NORMAL SEE BELOW Normal [facility] Comment on above: Result Comment: <100 mg/dl OPTIMAL 100 - 129 mg/dl NEAR OR ABOVE OPTIMAL 130 - 159 mg/dl BORDERLINE HIGH 160 - 189 mg/dl HIGH >190 mg/dl VERY HIGH Performed By: #### B MP, LIPID #### [facility] [address] [address] [address] Zan Escalante Triglyceride [Mass/Vol] 105 mg/dL Normal <=150 [facility] Comment on above: Performed By: #### B MP, LIPID #### [facility] [address] [address] [address] Zan Escalante VLDL CALC 21.0 mg/dL Normal [facility] Comment on above: Performed By: #### B MP, LIPID #### [facility] [address] [place] [address] Dr. Zan Escalante PROF CHEM 8 (BAS METB)on Anion gap [Moles/Vol] 12.1 mmol/L Normal [facility] Comment on above: Performed By: #### B MP, LIPID #### [facility] [address] [place] [address] Dr. Zan Escalante Calcium [Mass/Vol] 9.0 mg/dL Normal 8.5-10.1 [facility] Comment on above: Performed By: #### B MP, LIPID #### [facility] [address] [place] [address] Dr. Zan Escalante Chloride [Moles/Vol] 106 mmol/L Normal 98-107 [facility] Comment on above: Performed By: #### B MP, LIPID #### [facility] [address] [place] [address] Dr. Zan Escalante CO2 [Moles/Vol] 28.4 mmol/L Normal 21.0-32.0 [facility] Comment on above: Performed By: #### B MP, LIPID #### [facility] [address] [place] [address] Dr. Zan Escalante Creatinine [Mass/Vol] 1.39 mg/dL Critically high 0.70-1.30 [facility] Comment on above: Performed By: #### B MP, LIPID #### [facility] [address] [address] [address] Zan Escalante EGFR-AF NORWEGIAN >60 Normal >=60 [facility] Comment on above: Performed By: #### B MP, LIPID #### [facility] [address] [address] [address] Zan Escalante EGFR-NON AF NORWEGIAN 50 mL/min/1.73m2 Critically low >=60 [facility] Comment on above: Performed By: #### B MP, LIPID #### [facility] [address] [address] [address] Zan Escalante Glucose [Mass/Vol] 96 mg/dL Normal 74-106 [facility] Comment on above: Performed By: #### B MP, LIPID #### [facility] [address] [address] [address] Zan Escalante Potassium [Moles/Vol] 4.5 mmol/L Normal 3.5-5.1 [facility] Comment on above: Performed By: #### B MP, LIPID #### [facility] [address] [address] [address] Zan Escalante Sodium [Moles/Vol] 142 mmol/L Normal 136-145 [facility] Comment on above: Performed By: #### B MP, LIPID #### [facility] [address] [address] [address] Zan Escalante Urea nitrogen [Mass/Vol] 23.0 mg/dL Critically high 7.0-18.0 [facility] Comment on above: Performed By: #### B MP, LIPID #### [facility] [address] [address] [address] Zan Escalante Urea nitrogen/Creatinine [Mass ratio] 16.5 mg/mg Normal [facility] Comment on above: Performed By: #### B MP, LIPID #### [facility] [address] [address] [address] Zan Escalante ESTRADIOLon 04-17-2022 ESTRADIOL 20.7 pg/mL Low 27-52 [facility] [place] Normal [facility] Comment on above: Result Comment: Test Performed by [facility] [address] [place] [id number] - Released 04/17/2022 14:29 Result Comment: Test Performed by [facility] [address] [place] [id number] - Released 04/17/2022 14:30 TESTOSTERONE, TOTAL ILon Testosterone [Mass/Vol] 108 ng/dL Low 220-1000 [facility] CT UROGRAMon 03-13-2022 CT UROGRAM [facility] Department of Radiology [address] [place] [address] ======== Patient Name: TRAE PINEDA : 1950 Sex: M Age: Race: White Pt. Location: [facility] Patient Status: D Ordered Date: 02/22/2022 4:30:00 PM Completed Date: 03/13/2022 04:53 PM Requesting Provider: LUPIS DENNIS Attending Provider: LUPIS DENNIS Report Copy To: CRISTOBAL MICHEL Signs & Symptoms: R31.0 Gross hematuria I10 History: Guera, DM? on metformin? kidney dis? YES DM COMING EARLY FOR LABS SLS Comments: Exam: CT UROGRAM ======== CT UROGRAM 03/13/2022 4:53 PM CLINICAL INDICATIONS: R31.0 Gross hematuria I10 TECHNOLOGIST COMMENTS: gross hematuria and lower abdomen pain for one month QUESTION FOR THE RADIOLOGIST: PROTOCOL: Axial CT images of the abdomen and pelvis were obtained with and without IV contrast. CONTRAST: Contrast: OMNIPAQUE 350 (LOCM), 100 milliliter, Intravenous TECHNIQUE: Multiple detector CT axial slices of the abdomen and pelvis were obtained with and without IV contrast. Multiplanar reformats were performed and viewed on a separate workstation and reviewed to further define anatomy and possible pathology. COMPARISON: None. FINDINGS: 4 mm pleural-based nodule anteriorly in the right middle lobe. No urinary tract calculi identified. The kidneys concentrate and excrete contrast satisfactorily with no focal lesion identified. 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 The collecting systems and ureters are otherwise unremarkable. The bladder is intrinsically unremarkable impression on space by an enlarged prostate which measures 5.3 cm in cross-section. The liver, spleen, adrenals and pancreas appear unremarkable. Opaque material noted dependently in the gallbladder. The GI tract appears unremarkable. No free air or free fluid. The aorta is diffusely calcified but nonaneurysmal. No retroperitoneal adenopathy identified. The study viewed at bone window shows the presence of sternotomy wires and spinal degenerative change. IMPRESSION: 1. 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 2. Enlargement of the prostate which encroaches on the base of the urinary bladder. 3. 4 mm pleural-based nodule in the right middle lobe. Optional twelve-month follow-up if patient considered high risk per Fleischner Society criteria. 4. Suspect cholelithiasis. All CT scans at this facility use dose modulation, iterative reconstruction, and/or weight based dosing when appropriate to reduce radiation dose to as low as reasonably achievable Electronically signed: Aquilino Kelly. Transcribed by: [email or web address], User Resident: Electronically Signed by: AQUILINO KELLY @ 03/15/2022 01:05 PM Normal [facility] Vital Signs Date Time Vital Sign Value Performing Clinician Facility 11-12-2023 10:00-0500 Body height 182.88 cm Cristobal Michel Other [employer] Other 11-12-2023 10:00-0500 Body mass index (BMI) [Ratio] 32.46 kg/m2 Cristobal Ball Other [employer] Other 11-12-2023 10:00-0500 Body weight 108.59 kg Cristobal Ball Other [employer] Other 11-12-2023 10:00-0500 Diastolic blood pressure 76 mm[Hg] Cristobal Ball Other [employer] Other 11-12-2023 10:00-0500 Respiratory rate 16 /min Cristobal Ball Other [employer] Other 11-12-2023 10:00-0500 Systolic blood pressure 137 mm[Hg] Cristobal Ball Other [employer] Other 11-08-2023 10:58-0500 Diastolic blood pressure 71 mm[Hg] Margareth Jakks [facility] 11-08-2023 10:58-0500 Heart rate 63 /min Margareth Jakks [facility] 11-08-2023 10:58-0500 Mean blood pressure 93 mm[Hg] Margareth Jakks [facility] 11-08-2023 10:58-0500 Respiratory rate 15 /min Margareth Jakks [facility] 11-08-2023 10:58-0500 Systolic blood pressure 136 mm[Hg] Margareth Jakks [facility] 09-06-2023 11:09-0400 Diastolic blood pressure 77 mm[Hg] Margareth Jakks [facility] 09-06-2023 11:09-0400 Heart rate 59 /min Margareth Jakks [facility] 09-06-2023 11:09-0400 Mean blood pressure 106 mm[Hg] Margareth De La [facility] 09-06-2023 11:09-0400 Respiratory rate 16 /min Margareth De La [facility] 09-06-2023 11:09-0400 Systolic blood pressure 163 mm[Hg] Margareth De La [facility] 08-06-2023 14:22-0400 Heart rate 59 /min Himanshu Adriana [facility] 08-06-2023 14:22-0400 SaO2% (BldA) [Mass fraction] 99 % Himanshu Adriana [facility] 08-06-2023 14:22-0400 Diastolic blood pressure 91 mm[Hg] Himanshu Adriana [facility] 08-06-2023 14:22-0400 Mean blood pressure 107 mm[Hg] Himanshu [facility] 08-06-2023 14:22-0400 Systolic blood pressure 139 mm[Hg] Himanshu [facility] 08-06-2023 14:15-0400 Diastolic blood pressure 80 mm[Hg] Himanshu [facility] 08-06-2023 14:15-0400 Heart rate 58 /min Himanshu [facility] 08-06-2023 14:15-0400 SaO2% (BldA) [Mass fraction] 97 % Himanshu Adri[facility] 08-06-2023 14:15-0400 Systolic blood pressure 146 mm[Hg] Himanshu Adriana [facility] 08-06-2023 13:52-0400 Respiratory rate 14 /min Himanshu [facility] 08-06-2023 13:00-0400 Body temperature 98.06 [degF] [facility] 08-06-2023 13:00-0400 Diastolic blood pressure 70 mm[Hg] Himanshu [facility] 08-06-2023 13:00-0400 Heart rate 67 /min Himanshu [facility] 08-06-2023 13:00-0400 Systolic blood pressure 144 mm[Hg] Himanshu [facility] 07-02-2023 14:17-0400 Diastolic blood pressure 71 mm[Hg] Margareth Jakks [facility] 07-02-2023 14:17-0400 Heart rate 61 /min Margareth Jakks [facility] 07-02-2023 14:17-0400 Mean blood pressure 97 mm[Hg] Margareth Jakks [facility] 07-02-2023 14:17-0400 Respiratory rate 14 /min Margareth Jakks [facility] 07-02-2023 14:17-0400 Systolic blood pressure 148 mm[Hg] Margareth Jakks [facility] 01-11-2023 13:43-0500 Diastolic blood pressure 75 mm[Hg] Margareth Jakks [facility] 01-11-2023 13:43-0500 Heart rate 76 /min Margareth Jakks [facility] 01-11-2023 13:43-0500 Mean blood pressure 105 mm[Hg] Margareth Jakks [facility] 01-11-2023 13:43-0500 Respiratory rate 18 /min Margareth De La [facility] 01-11-2023 13:43-0500 Systolic blood pressure 166 mm[Hg] Margareth De La [facility] 01-08-2023 13:30-0500 Body height 182.88 cm Cristobal Ball Other [employer] [facility] Other 01-08-2023 13:30-0500 Body mass index (BMI) [Ratio] 32.11 kg/m2 Cristobal Ball Other [employer] Other 01-08-2023 13:30-0500 Body weight 107.41 kg Cristobal Ball Other [employer] Other 01-08-2023 13:30-0500 Diastolic blood pressure 70 mm[Hg] Cristobal Ball Other [employer] [facility] Other 01-08-2023 13:30-0500 Respiratory rate 16 /min Cristobal Ball Other [employer] Other 01-08-2023 13:30-0500 Systolic blood pressure 126 mm[Hg] Cristobal Ball Other [employer] Other 12-12-2022 11:00-0500 Heart rate 73 /min Tutu Sophie[facility] 12-12-2022 11:00-0500 SaO2% (BldA) [Mass fraction] 98 % Tutu [facility] 12-12-2022 11:00-0500 Diastolic blood pressure 75 mm[Hg] Tutu [facility] 12-12-2022 11:00-0500 Mean blood pressure 108 mm[Hg] Tutu [facility] 12-12-2022 11:00-0500 Systolic blood pressure 173 mm[Hg] Tutu [facility] 12-12-2022 10:51-0500 Diastolic blood pressure 88 mm[Hg] [facility] [facility] 12-12-2022 10:51-0500 Heart rate 71 /min Tutu Zumbar [facility] 12-12-2022 10:51-0500 Respiratory rate 16 /min Tutu Zumbar [facility] 12-12-2022 10:51-0500 SaO2% (BldA) [Mass fraction] 96 % Tutu Zumbar [facility] 12-12-2022 10:51-0500 Systolic blood pressure 157 mm[Hg] Tutu Zumbar [facility] 12-12-2022 10:13-0500 Heart rate 75 /min Tutu Zumbar [facility] 12-12-2022 10:13-0500 SaO2% (BldA) [Mass fraction] 97 % Tutu Zumbar [facility] 12-12-2022 10:13-0500 Body temperature 97.88 [degF] Tutu Zumbar [facility] 12-12-2022 10:12-0500 Diastolic blood pressure 76 mm[Hg] Tutu Zumbar [facility] 12-12-2022 10:12-0500 Mean blood pressure 108 mm[Hg] Tutu Zumbar [facility] 12-12-2022 10:12-0500 Systolic blood pressure 170 mm[Hg] Tutu Zumbar [facility] 12-12-2022 10:10-0500 Respiratory rate 16 /min Tutu Zumbar [facility] 11-08-2022 15:04-0500 Diastolic blood pressure 76 mm[Hg] Tutu Zumbar [facility] 11-08-2022 15:04-0500 Heart rate 62 /min Tutu Zumbar [facility] 11-08-2022 15:04-0500 Mean blood pressure 108 mm[Hg] Tutu Zumbar [facility] 11-08-2022 15:04-0500 Respiratory rate 14 /min Tutu Zumbar [facility] 11-08-2022 15:04-0500 Systolic blood pressure 173 mm[Hg] Tut[facility] Zum[facility] Encounters Encounter Date Encounter Type Care Provider Facility Start: 11-14-2023 End: 11-14-2023 ambulatory Cristobal Michel Other [employer] Other Start: 11-14-2023 Telephone encounter Cristobal Michel [facility] Start: 11-12-2023 End: 11-12-2023 ambulatory Cristobal Michel Other [employer] Other Start: 11-12-2023 Office outpatient vi sit 25 minutes Cristobal Michel [facility] Start: 11-08-2023 End: 11-09-2023 ambulatory CRISTOBAL MICHEL Facility:[facility] Start: 11-08-2023 End: 11-08-2023 Pain Management Margareth De La Cruz [facility] Start: 10-28-2023 End: 10-29-[facility] Start: 09-06-2023 End: 09-07-2023 ambulatory PA-C Margareth De La Cruz Facility:[facility] Start: 09-06-2023 End: 09-06-2023 Pain Management Margareth De La Cruz [facility] Start: 09-04-2023 End: 09-04-2023 ambulatory Cristobal Michel Other [facility] Other Start: 09-04-2023 Telephone encounter Cristobal Michel [facility] Start: 09-03-2023 End: 09-03-2023 ambulatory [facility] Start: 08-21-2023 End: 08-21-2023 ambulatory Cristobal Michel Other [employer] Other Start: 08-21-2023 Telephone encounter Cristobal Michel ROSALINDA Raymundo Michel [facility] Start: 08-06-2023 End: 08-07-2023 ambulatory Himanshu Wright Facility:[facility] Start: 08-06-2023 End: 08-06-2023 Pain Management Himanshu Wright [facility] Start: 07-23-2023 End: 07-23-2023 ambulatory Cristobal Michel Other [employer] Other Start: 07-23-2023 Telephone encounter Cristobal TELLEZ [facility] [place] [facility] Start: 07-02-2023 End: 07-03-2023 ambulatory PA-C Margareth De La Cruz Facility:[facility] Start: 07-02-2023 End: 07-02-2023 Pain Management Margareth De La Cruz [facility] Start: 06-04-2023 End: 06-04-2023 ambulatory [facility] Start: 05-28-2023 ambulatory [facility] Start: 05-28-2023 End: 05-28-2023 ambulatory HARPREET WATSON [facility] Start: 03-19-2023 End: 03-19-2023 ambulatory Cristobal Michel Other [employer] Other Start: 03-19-2023 Office outpatient vi sit 15 minutes Cristobal Michel [facility] Start: 03-08-2023 End: 03-08-2023 ambulatory Cristobal Michel Other [employer] Other Start: 03-08-2023 Telephone encounter Cristobal Michel [facility] Start: 03-07-2023 Telephone encounter Cristobal TELLEZ [facility] Start: 03-07-2023 End: 03-08-[address] CRISTOBAL MICHEL [facility] Other Start: 02-26-2023 Telephone encounter Cristobal TELLEZ [facility] Start: 02-26-2023 End: 02-26-2023 ambulatory DIONY ARIZA [facility] Other Start: 01-18-2023 Telephone encounter Cristobal Michel ROSALINDA [facility] Start: 01-18-2023 End: 01-19-[address] DOCTOR ADAMS [facility] Other Start: 01-11-2023 End: 01-12-2023 ambulatory Margareth De La Cruz Facility:[facility] Start: 01-11-2023 End: 01-11-2023 Pain Management Margareth De La Cruz [facility] Start: 01-08-2023 End: 01-08-2023 ambulatory Cristobal Michel Other [employer] Other Start: 01-08-2023 Office outpatient vi sit 25 minutes Cristobal Michel [facility] Start: 12-12-2022 End: 12-13-2022 ambulatory MD Tutu Guzman Facility:[facility] Start: 12-12-2022 End: 12-12-2022 Pain Management Tutu Guzman [facility] Start: 11-23-2022 End: 11-23-[address] CRISTOBAL MICHEL Facility:[facility] Start: 11-20-2022 End: 11-20-2022 ambulatory [facility] Start: 11-18-2022 End: 11-22-[address] CRISTOBAL MICHEL Facility:[facility] Start: 11-08-2022 End: 11-08-2022 Patient encounter procedure Tutu Guzman [facility] Start: 11-08-2022 End: 11-08-2022 Pain Management Tutu Guzman [facility] Start: 08-29-2022 End: 08-30-[address] DOCTOR ADAMS Facility:[facility] Start: 07-31-2022 End: 08-01-[address] MOI CAMPBELL Facility:[facility] Start: 07-02-2022 Encounter for preprocedural laboratory examination DR CRISTOBAL MICHEL [facility] Start: 06-29-2022 End: 06-30-2022 Encounter for preprocedural laboratory examination DR CRISTOBAL MICHEL Facility:[facility] Start: 06-29-2022 End: 06-30-[address] CRISTOBAL MICHEL Facility:[facility] Start: 06-14-2022 End: 11-17-[address] CRISTOBAL MICHEL Facility:[facility] Start: 03-13-2022 End: 03-14-2022 ambulatory LUPIS DENNIS Facility:[facility] Procedures Date Procedure Procedure Detail Performing Clinician Start: 08-06-2023 Injection of nerve r oot of lumbar spine using fluoroscopic guidance Margareth [employer] Comment on above: bilat L5/S1 TFESI- 9 0% relief x 2 weeks Start: 12-12-2022 Injection of nerve r oot of lumbar spine using fluoroscopic guidance Margareth [employer] Comment on above: L5-S1-90% relief Start: 04-17-2022 PSA screening LUPIS DENNIS Comment on above: Performed By: #### [id number] #### [facility] [address] [place] [address], [facility] Start: 11-22-2021 Injection of nerve r oot of lumbar spine using fluoroscopic guidance Tutu Guzman [email or web address] Comment on above: Bilateral L5 TFESI-9 0-95% relief Start: 07-01-2020 Epidural steroid injection Tutu Guzman Comment on above: bilat L5 TFESI- 100% relief x 2 weeks now down to 50% Coronary bypass gustabo t angiography Tutu Myerbill Comment on above: 2004 Decompression of med oleksandr nerve Tutu [employer] Comment on above: right 2012 Fracture of ankle (disorder) [facility]u [employer] Comment on above: 1989 Klippel-Feil sequenc e (disorder) Tutu Myerbill Comment on above: disc herniation and fusion 2008 Laminectomy Tutu Myerbill [email or web address] Comment on above: nov 2019 Immunizations Immunization Date Immunization Notes Care Provider Kiki bautista 09-05-2022 influenza, high dose seasonal, preservative-free Cristobal Michel Other [employer] Other 08-21-2021 influenza virus vaccine, split virus (incl. purified surface antigen) Cristobal Michel Other [employer] Other 08-11-2021 COVID-19 Vaccine Pfi zer - Documentation Purposes Only Cristobal Michel Other [employer] Other 01-10-2021 COVID-19 Vaccine Pfi zer - Documentation Purposes Only Cristobal Michel Other [employer] Other 12-20-2020 COVID-19 Vaccine Pfi zer - Documentation Purposes Only Cristobal Michel Other [employer] Other 08-12-2020 zoster vaccine, live Benjami yonathan Michel Other [employer] Other 07-27-2020 influenza virus vaccine, split virus (incl. purified surface antigen) Cristobal Michel Other [employer] Other 08-26-2019 influenza virus vaccine, split virus (incl. purified surface antigen) Cristobal Michel Other [employer] Other 10-29-2018 influenza virus vaccine, split virus (incl. purified surface antigen) Cristobal Som Other [employer] Other 07-19-2017 influenza virus vaccine, split virus (incl. purified surface antigen) Cristobal Som Other [employer] Other 10-09-2016 influenza virus vaccine, split virus (incl. purified surface antigen) Cristobal Michel Other [employer] Other 10-18-2015 influenza virus vaccine, split virus (incl. purified surface antigen) Cristobal Michel Other [employer] Other 09-20-2015 pneumococcal conjuga te vaccine, 13 valent Cristobal Som Other [employer] Other 11-07-2012 pneumococcal polysaccharide vaccine, 23 valent Cristobal Michel Other [employer] Other Payers Date Payer Category Payer Private Health Insurance [id number] 1950 Unknown [id number] 2.16.8 [id number] 1950 Unknown [id number] 2.16.84 [id number] 1950 Unknown [id number] 2.16.84 0.1.009317.3.579.2.593 1950 Unknown [id number] 2.16.84 0.1.567505.3.579.2.593 1950 Unknown [id number] 2.16.84 0.1.373259.3.579.2.593 1950 Unknown [id number] 2.16.84 0.1.907836.3.579.2.593 1950 Unknown [id number] 2.16.84 0.1.608748.3.579.2.593 1950 Unknown [id number] 2.16.84 0.1.149612.3.579.2.593 1950 Unknown [id number] 2.16.84 0.1.096831.3.579.2.593 1950 Unknown [id number] 2.16.84 0.1.191302.3.579.2.593 1950 Unknown [id number] 2.16.8 40.1.903591.3.579.2.727 1950 Unknown [id number] 2.16.8 40.1.618343.3.579.2.727 1950 Unknown [id number] 2.16.8 40.1.355431.3.579.2.727 1950 Unknown [id number] 2.16.8 40.1.397530.3.579.2.727 1950 Unknown [id number] 2.16.8 40.1.439455.3.579.2.727 1950 Unknown [id number] 2.16.8 [id number] Social History Date Type Detail Facility Start: 10-05-2021 Tobacco smoking status Ex-smoker (fi nding) [facility] Comment on above: Quit in 1982 Sex Assigned At Male [facility] Medical Equipment Procedure Code Equipment Code Equipment Origin al Text Equipment Identifier Dates Start: 04-09-2023 Functional Status Date Assessment Result Facility 11-08-2023 Functional Status N/A [facility] 09-06-2023 Functional Status N/A [facility] 08-06-2023 Functional Status N/A [facility] 07-02-2023 Functional Status N/A [facility] 01-11-2023 Functional Status N/A [facility] 12-12-2022 Functional Status N/A [facility] 11-08-2022 Functional Status N/A [facility] Clinical Notes 11-20-2022 to 11-14-2023 Note Date & Type Note Facility 11-14-2023 Evaluation note Encounter Date Diagnosis Assessment Notes Oct, 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 They are instructed to continue exercise and AHA diet plan. Continue secondary prevention measures. Oct, Primary hypertension (ICD-10 - I10) This patient is instructed to consume a healthy, low-fat, low-salt diet. They are also encouraged to continue exercise to achieve/maintain a normal BMI. Patient is instructed on home BP measurements: - rest for 5 minutes w/o talking- positioned w/ feet on floor and arm supported- average best 2/3 readings w/ goal < 135/85 Oct, Type 2 diabetes mellitus with hyperglycemia (ICD-10 - E11.65) This patient is following a comprehensive diabetic treatment plan. They are checking their feet daily for calluses and nonhealing ulcers. They are being seen for yearly dilated eye examinations. Goals: SBP less than 130, LDL less than 100, FBS less than 140, A1C less than 7%. They are checking their BS daily, will which are reviewed at the office visit. Continue regular routine monitoring of A1C,] Microalbumin, Dilated eye exam and Foot exam Oct, Type 2 diabetes mellitus with diabetic polyneuropathy (ICD-10 - E11.42) Inspect feet daily for cuts and calluses.Recommend diabetic shoes and inserts to prevent callus formation.Fall precautions. Oct, Hyperlipidemia, mixed (ICD-10 - E78.2) Instructed on diet and exercise with continued statin therapy.Discussed the beneficial effects of lowering cholesterol in reducing the risk for cerebrovascular and cardiovascular disease. Oct, Chronic bronchitis, mucopurulent (ICD-10 - J41.1) Continue antihistamines. He is instructed on cough and deep breathing He is not using any inhalers at this time. Oct, Obstructive sleep apnea (ICD-10 - G47.33) This patient is aware of the benefits associated with TALA: With continued use, the patient reduces the risk for MD, CVA, HTN, cardiac dysrhythmias and sudden cardiac deaths.The patient is also aware of the association between TALA and morning headaches, daytime somnolence, fatigue and obesity, which also has been improved with continued use.The patient is compliant with treatment, wearing the equipment every night for greater than 4 hours.The patient is instructed to continue use of the CPAP for TALA treatment. Oct, Cigarette nicotine dependence in remission (ICD-10 - F17.211) Continue abstinence Oct, Lumbar spondylosis (ICD-10 - M47.816) The patient is instructed to avoid bending, twisting or lifting. They are to use intermittent heat and ice as needed. They may schedule a massage or gentle manipulation. They may safely use Tylenol as needed. f/u Pain Clinic Scheduling MRI Oct, Benign prostatic hyperplasia with lower urinary tract symptoms (ICD-10 - N40.1) Symptoms increased Contemplating repeat laser treatment PSA decreased f/u Oct, Other obesity due to excess calories (ICD-10 - E66.09) This patient has been instructed on a low-fat, high-fiber diet. They are instructed to reduce calories, portion sizes and snacks. It is recommended that they exercise for 30 minutes, 3-5 times weekly. Weight increasing due to inactivity. Encouraged to resume exercising Oct, Body mass index [BMI] 32.0-32.9, adult (ICD-10 - Z68.32) [employer] Other [id number] Evaluation + Plan noteExtracted from: Title:Pain Managment Follow up Author:Margareth Umaña Date:11/08/23 Impression and Plan Patient is a 73-year-old male with a past medical history significant for lumbosacral stenosis and lumbosacral neuritis. Previous transforaminal epidural steroid injection did not give him relief like the others did. He now admits to different pain though. He is having right radiating leg pain but bilateral radiating leg fatigue. Historically, conservative treatments have failed. Anti-inflammatory medications have not helped. Physical therapy did not help. This affects his ambulatory status. This affects his quality of life. This affects his ability to do the things he wants to do. Based on the above-mentioned things, his pain pattern and his failure to improve as well as the significant pain he is experiencing I would recommend obtaining an updated lumbar MRI scan for possible other injection options versus surgical consultation depend on the results. Patient is agreeable. Follow-up after. LEONOR score: 36% Future Appointments Appointment Date:12/16/2023 10:15:00 AM Scheduled Provider:Margareth De La Cruz PA-C Location:.[facility] Appointment Type:Pain Management - Follow Up (FT) [facility]12-21-2023 NotePrior auth obtained for Testosterone- Gallardo [id number] - [place] APPROVED 11/07/2023. STATUS APPROVED. COVERAGE START DATE 10/08/2023 END DATE 11/06/2024.[facility]12-11-2023 NotePatient: Trae Pineda Procedure Summary Date: 10/28/23 Room / Location: [facility] OPERATING ROOM 07 / [facility] Operating Room Anesthesia Start: 735 Anesthesia Stop: 813 Procedure: CYSTOURETHROSCOPY, WITH RETROGRADE PYELOGRAM (Bilateral: Ureter) Diagnosis: Benign prostatic hyperplasia with lower urinary tract symptoms, symptom details unspecified (Benign prostatic hyperplasia with lower urinary tract symptoms, symptom details unspecified [N40.1]) Surgeons: Diony Ariza MD Responsible Provider: Darcy Davila MD Anesthesia Type: MAC ASA Status: 3 Anesthesia Type: MAC Vitals Value Taken Time BP 132/65 10/28/23 0842 Temp 36 ???C (96.8 ???F) 10/28/23 0810 Pulse 55 10/28/23 0825 Resp 16 10/28/23 0825 SpO2 91 % 10/28/23 0843 Vitals shown include unvalidated device data. Anesthesia Post Evaluation Patient location during evaluation: PACU Patient participation: complete - patient participated Level of consciousness: awake and alert Pain score: 1 Pain management: adequate Cardiovascular status: acceptable Respiratory status: acceptable Hydration status: acceptable Patient is hemodynamically stable and is able to be discharged from PACU per anesthesia protocol. No notable events documented.[facility]12-11-2023 Note Patient: Trae Pineda Procedure Summary Date: 10/28/23 Room / Location: [facility] OPERATING ROOM 07 / [facility] Operating Room Anesthesia Start: 0736 Anesthesia Stop: Procedure: CYSTOURETHROSCOPY, WITH RETROGRADE PYELOGRAM (Bilateral: Ureter) Diagnosis: Benign prostatic hyperplasia with lower urinary tract symptoms, symptom details unspecified (Benign prostatic hyperplasia with lower urinary tract symptoms, symptom details unspecified [N40.1]) Surgeons: Diony Ariza MD Responsible Provider: Darcy Davila MD Anesthesia Type: MAC ASA Status: 3 Anesthesia Post Transport Note Transport to: PACU O2 Route: room air Patient Monitor: direct observation Transport: [facility]ful [facility] Patient: Trae Pineda Procedure Information Date/Time: 10/28/23 0730 Procedure: CYSTOURETHROSCOPY, WITH RETROGRADE PYELOGRAM (Bilateral) - C-ARM Location: [facility] OPERATING ROOM 07 / [facility] Operating Room Surgeons: Diony Ariza MD Relevant Problems Cardio tolerates >4 METs without chest pain, SOB (+) Benign essential hypertension (+) Coronary arteriosclerosis in [place] artery (+) Hypertensive disorder Endo (+) Type 2 diabetes mellitus without complication (CMS/HCC) (Takes Humalin 30 U at ight, 20 U in the evening. Patient held insulin morning of surgery Pre-op glucose 132) /Renal (+) CKD (chronic kidney disease) (CKD 3a) (+) Kidney stone Neuro/Psych (+) Seizure (CMS/HCC) Pulmonary (+) Chronic obstructive lung disease (CMS/HCC) Respiratory (+) CPAP (continuous positive airway pressure) dependence (+) Sleep apnea (uses CPAP nightly) Circulatory (+) History of open heart surgery (s/p CABGx2 in 2004, left radial artery was harvested for graft) Other (+) History of myocardial infarction Cardiovascular ECHO - 04/2018 Left Ventricle: Global left ventricular systolic function is mildly reduced (Visually estimated EF 45%). Mild left ventricular hypertrophy. Grade 2, moderate diastolic dysfunction (pseudonormalized LV filling pattern). Right ventricle: Normal right ventricular systolic function. Left Atrium: The left atrium is moderately enlarged. Doppler studies suggest normal right sided pressures. Aorta: Mild aortic dilatation . No significant valvular abnormalities Clinical information reviewed: Tobacco Allergies Meds Med Hx Surg Hx Fam Hx Physical Exam Airway Mallampati: II TM distance: >3 FB Neck ROM: full Cardiovascular - normal exam Dental Comments: Partial lower denture Pulmonary - normal exam Abdominal (+) obese Other findings: Scar over left wrist, no palpable left radial pulse Anesthesia Plan ASA 3 MAC The patient is not a current smoker. (quit smoking 40 years ago) Patient did not smoke on day of procedure. intravenous induction Anesthetic plan and risks discussed with patient. Use of blood products discussed with patient who consented to blood products. Plan discussed with attending and resident. [facility] Note History and Physical Patient: Trae Pineda Date of : 1950 CHIEF COMPLAINT: Gross hematuria HISTORY OF PRESENT ILLNESS: The patient is a 73 y.o. male wit history of chronic prostatitis, elevated PSA, hypogonadism, and BPH with LUTS who presents with an episode of gross hematuria. 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 Past Medical History: Past Medical History: Diagnosis Date Anxiety BPH (benign prostatic hyperplasia) WITH OUTFLOW OBSTRUCTION Chronic bacterial prostatitis COPD (chronic obstructive pulmonary disease) ([facility]/HCC) Coronary artery disease, non-occlusive Depression Diabetes mellitus ([facility]/HCC) Erectile dysfunction Hyperlipemia Hypertension Hypogonadism in male Kidney stone Sleep apnea CPAP DEPENDENT Past Surgical History: Past Surgical History: Procedure Laterality Date APPENDECTOMY CARDIAC CATHETERIZATION CARPAL TUNNEL RELEASE CYSTOSCOPY Medications Prior to Admission: Prior to Admission medications Medication Sig Start Date End Date Taking? Authorizing Provider amLODIPine (Norvasc) 5 mg tablet Take 1 tablet by mouth in the morning. Historical Provider, ascorbic acid (Vitamin C) 500 mg tablet Take 1 tablet by mouth in the morning. Historical Provider, aspirin 81 mg EC tablet Take 1 tablet every day by oral route. Historical ProviderMD calcium carbonate 600 mg calcium (1,500 mg) tablet Take 600 mg by mouth. 05/18/20 Historical ProviderMD carvedilol (Coreg) 6.25 mg tablet carvedilol 6.25 mg tablet one bid Historical Provider, ezetimibe (Zetia) 10 mg tablet TAKE 1 TABLET DAILY 04/05/23 Moi Campbell MD insulin NPH and regular human (HumuLIN 70/30 U-100 Insulin) 100 unit/mL (70-30) injection Inject under the skin before breakfast and before evening meal. 30 units in AM, 20 units in PM Historical Provider, lisinopril 10 mg tablet Take 1 tablet every day by oral route. Historical Provider, nitroglycerin (Nitrostat) 0.4 mg SL tablet if needed. Historical Provider, ranolazine (Ranexa) 500 mg 12 hr tablet Take 1 tablet by mouth in the morning and at bedtime. Historical Provider, Repatha Syringe 140 mg/mL syringe INJECT 1ML SUBCUTANEOUSLY EVERY 2 WEEKS Patient taking differently: LAST DOSE 10/1704/01/23 Moi Campbell MD sulfamethoxazole-trimethoprim (Bactrim DS) 800-160 mg tablet Take one tablet twice daily for two week then once daily for 4 weeks. 05/31/23 SIMBA King tadalafil (Cialis) 5 mg tablet TAKE 1 TABLET BY MOUTH EVERY DAY IN THE MORNING 08/08/23 Diony Ariza MD testosterone 20.25 mg/1.25 gram (1.62 %) gel in metered-dose pump PLACE 2 PUMPS ON THE SKIN IN THE MORNING 10/01/23 Moises Aguirre NP Allergies: Opggxdv-xwv-skj reductase inhibitors and Hydralazine Social History: Social History Socioeconomic History Marital status: Spouse name: Not on file Number of children: Not on file Years of education: Not on file Highest education level: Not on file Occupational History Not on file Tobacco Use Smoking status: Former Types: Cigarettes Quit date: 1982 Years since quittin.9 Passive exposure: Never Smokeless tobacco: Never Substance and Sexual Activity Alcohol use: Never Drug use: Never Sexual activity: Not on file Other Topics Concern Not on file Social History Narrative Not on file Social Determinants of Health Financial Resource Strain: Not on file Food Insecurity: Not on file Transportation Needs: Not on file Physical Activity: Not on file Stress: Not on file Social Connections: Not on file Intimate Partner Violence: Not on file Housing Stability: Not on file Family History: No family history on file. REVIEW OF SYSTEMS: Constitutional: negative Eyes: negative Respiratory: negative Cardiovascular: negative Gastrointestinal: negative Genitourinary: see HPI Musculoskeletal: negative Skin: negative Neurological: negative Hematological/Lymphatic: negative Psychological: negative Physical Exam: No data found. Constitutional: Patient in no acute distress; Neuro: alert and oriented to person place and time. Psych: Mood and affect normal. Lungs: Respiratory effort normal Cardiovascular: Normal peripheral pulses. Regular rate. Abdomen: Soft, non-tender, non-distended LABS: No lab exists for component: LABGLOM Lab Results Component Value Date PSA 2.1 05/28/2023 PSA 2.0 02/26/2023 PSA 1.4 04/17/2022 Additional Lab/culture results: Urinalysis: No results found for: GLU , UROBILINOGEN Imaging Results: Assessment and Plan Impression: 73 y.o. 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 He states that the right leg is much more bothersome than the left leg. Unfortunate, recent repeat transforaminal epidural steroid injection did not give him the relief he was looking for. We had a long session with different options. At this time, he would like to be as conservative as possible as he is dealing with some other medical issues. He is having issues with prostatitis and he would like to get this taken care of first. He was possibly getting a requisition for physical therapy. I will give him this. We discussed the possibility of future repeat imaging and possible surgical consultation but at this time, he would like to start with the therapy. Follow- up in 2 months. Call clinic sooner if necessary. LEONOR score: 36% Future Appointments Appointment Date:11/08/2023 11:00:00 AM Scheduled Provider:Margareth De La Cruz PA-C Location:.Pain [facility] Appointment Type:Pain Management - Follow Up (FT) [facility]10-18-2023 Evaluation note* Encounter Date Diagnosis Assessment Notes Treatment Notes Treatment Clinical Notes Aug, Pulmonary nodule (ICD-10 - R91.1) CT: RML 4mm nodule - 02/2022, CT: RML 7mm nodule - 02/2023 CT: stable - 08/2023 [employer] Other [id number] [facility] Clinic H&P Dr. Diony Ariza MD Patient: Trae Pineda Date of : 1950 CHIEF COMPLAINT: Low testosterone HISTORY OF PRESENT ILLNESS: The patient is a 73 y.o. male who presents with History of chronic bacterial prostatitis - States he had 2x hematuria in one day in June. Denies any dysuria, flank pain, or abdominal pain during that time. Denies any fever, nausea, vomiting. Hematuria has not reoccurred since. Denies any signs of infection. - Reports that he has suprapubic discomfort after he urinates feeling like he still needs to urinate again. However, if he does try to urinate again, he does not have a need to go again. - PSA (08/30/2023): 2.41 Hypogonadism - Testosterone level is not available today as he got it done in [place] but it was a send out lab. - Fatigue and libido have continue to stay improved. - Denies vision issues, headaches, breast tenderness or discharge. - Continues to use androgel applying one pump per chest side daily. - Patient currently on Cialis. States that it helps some with erection. History of BPH with outflow obstruction, LUTS - PVR (09/03/2023): 58ml - Patient continues to have urgency. He states that he'll sometimes have dribbling as he's walking to the restroom. - Patient reports sometimes having a good, strong stream. Sometimes the stream is weak and slow, but other times the stream will stop and then go. He states that sitting down and relaxing helps with urinating. After he urinates, he feels discomfort around the suprapubic area. - Nocturia 0-1x/evening. 02/26/2023: 1. Hypogonadism - Testosterone did not get sent over but patient states over 700 now, previously 171 (low, 08/29/22), Testosterone 108 (low, 04/17/22), - Estradiol 21.4 (), Estradiol 20.7 (low, 04/17/22) - Fatigue has improved - Libido has improved - no vision issues - no headaches - no breast tenderness or discharge - Loss of muscle mass: yes, has improved slightly 2. History of BPH with outflow obstruction, LUTS - s/p GLL on 09/03/2016 - PVR 02/22/22 31 cc - Urgency, 1/4 of time has leakage prior to making it to bathroom, frequency q2-3h, nocturia x 1, feels like he is incompletely emptying, -He notes a small stream and lack of control. He has daytime frequency of 4-5. He had done well with his urination after a GLL 09/06/[address] Ariza - MEL by Lupis 02/22/22 not enlarged, nontender - CT Urogram showed enlargement of prostate which encroaches on bladder IPSS /QOL -repeat cysto 06/26/2022 showed regrowth of L lateral lobe 3. History of chronic bacterial prostatitis - UCx 02/22/22 negative - denies fever, chills, and night sweats. reports improved pain s/p abx 4. Erectile dysfunction OSCAR 2 but now getting morning erections Present since before the procedure. able to experience an orgasm with dry ejaculation. Tried cialis with unsatisfactory results. Had slight erection, was able to achieve orgasm, but not satisfied with experience. Last successful intercourse several years ago Interested in PDE-5s, had an echocardiogram and received cardiac clearance - can only get semi-erections, not hard enough for intercourse - Testosterone 108 (04/17/22) 5. Giuseppe hematuria, resolved - CT urogram 03/13/22 negative - UA 02/22/22 suspicious for recurrent chronic prostatitis, Bactrim given at last visit s/p tx -cystoscopy on 06/26/2022 revealed with area of bladder neck/prostate on 3-o clock position on left side with bleeding incomplete bladder visualization due to bleeding small clots removed. 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 Suprapubic discomfort - chronic, got better with bactrim, but returned in 05/2022 - no dysuria Other labs: PSA 1.4 (04/17/22) Patient's old records, notes and chart reviewed and summarized above. Past Medical History: Past Medical History: Diagnosis Date Anxiety COPD (chronic obstructive pulmonary disease) ([facility]) Coronary artery disease, non-occlusive Depression Diabetes mellitus ([facility]) Hyperlipemia Hypertension Past Surgical History: Past Surgical History: Procedure Laterality Date APPENDECTOMY CARDIAC CATHETERIZATION CARPAL TUNNEL RELEASE Previous surgery: GLL in 2016 Medications: Current Outpatient Medications on File Prior to Visit Medication Sig Dispense Refill amLODIPine (Norvasc) 5 mg tablet Take 1 tablet by mouth in the morning. ascorbic acid (Vitamin C) 500 mg tablet Take 1 tablet by mouth in the morning. aspirin 81 mg EC tablet Take 1 tablet every day by oral route. calcium carbonate 600 mg calcium (1,500 mg) tablet Take 600 mg by mouth. carvedilol (Coreg) 6.25 mg tablet carvedilol 6.25 mg tablet one bid ezetimibe (Zetia) 10 mg tablet TAKE 1 TAB (more content not included)... [facility]10-04-2023 Evaluation note* Encounter Date Diagnosis Assessment Notes Treatment Notes Treatment Clinical Notes Aug, Pulmonary nodule (ICD-10 - R91.1) [employer] Other 09-19-2023 Note [id number] Evaluation + Plan noteExtracted from: Title:Pain Managment Follow up Author:Margareth Umaña Date:07/02/23 Impression and Plan Patient is a 73-year-old male with a past medical history is made for lumbosacral stenosis and lumbosacral neuritis. Previous bilateral L5-S1 transforaminal epidural steroid injection gave him significant relief. He had well over 6 months of 90% relief. Unfortunate, over the last month or so he has noticed that the pain has begun to return. This is beginning to affect his ambulatory status, his quality of life and his activities. Is affecting his ability to do the things he wants to do. Based on his pain pattern, his previous imaging findings significant stenosis at L4-5, and the significant improvement he got from the previous injection I recommended repeating this for both diagnostic and therapeutic purposes. Procedure was discussed. Risk and benefits were discussed. Patient is agreeable. He will follow-up 2 to 3 weeks after the injection for reevaluation. Call the clinic sooner if necessary. LEONOR score: 44% [facility]07-18-2023 NoteUT Cardiology [facility] Subjective Trae Pineda is a 73 y.o. year old male patient being seen for Follow-up (6 month follow up ) Patient Active Problem List Diagnosis Type 2 diabetes mellitus without complication (CMS/HCC) Type 1 diabetes mellitus (CMS/HCC) Seizure (CMS/HCC) Chronic prostatitis Preoperative evaluation to rule out surgical contraindication Kidney stone Hyperlipidemia Generalized ischemic myocardial dysfunction Generalized anxiety disorder [place] Dyspnea Disorder of lipid metabolism Depressive disorder Chronic obstructive lung disease (CMS/HCC) Chronic anxiety Chest pain Hypertensive disorder Benign essential hypertension Coronary arteriosclerosis in [place] artery Coronary arteriosclerosis of [place] coronary artery of transplanted heart Suprapubic discomfort Benign prostatic hyperplasia with lower urinary tract symptoms Erectile dysfunction Lung nodule Hypogonadism in male Sleep apnea Irregular heart rhythm History of open heart surgery History of myocardial infarction Enlarged prostate CPAP (continuous positive airway pressure) dependence Carpal tunnel syndrome Anemia CKD (chronic kidney disease) No family history on file. Social History Tobacco Use Smoking status: Former Types: Cigarettes Quit date: 1982 Years since quittin.5 Smokeless tobacco: Never Substance Use Topics Alcohol use: Never Drug use: Never HPI Mr Pineda is seen in follow up. He has CAD s/p bypass surgery with cath in 2014: 1. Patent 2/2 bypass grafts (left internal mammary artery to left anterior descending artery and radial graft to posterior descending artery). 2. 50% in-stent restenosis in patent left anterior descending artery. 3. 100% occluded right coronary artery. 4. Normal cardiac output and cardiac index. His echocardiogram 2016 showed stable mildly reduced LV EF of 45%. He has hypertension on treatment. He is intolerant to statins (muscle pains). He has been on zetia. At visit in January of 2017 I increased amlodipine to 10 mg daily. This caused leg swelling and he is back to 5 mg daily with resolution of the symptoms. Visit of 05/08/2017: He says he still experiences angina. He has mild shortness of breath on exertion. His lipid profile on 08/14/2016 showed LDL of 147 and TG 113. Lipid profile on 05/06/2017 showed TG 207, LDL 122, and HDL 36. Update 07/10/2017: He has been having worsening of his symptoms of chest discomfort with activity. They are relived by rest. This has been significant enough to limit his activity. Lipid panel 07/09/2017: LDL 62 TG 270 HDL 37 He says that he seems to be tolerating the lovastatin. Update 10/02/2017: At last visit I asked for a stress test to investigate his symptoms. This was done on 07/16/2017 and showed no ischemia with EF of 50%. He has been free from chest pain since then. He has chronic dyspnea that is stable. He has been taking lovastatin and ezetimibe. His recent lipid profile showed on 07/09/2017: LDL 81 TG 122 HDL 42. Update 04/16/2018: He is seen in follow up. He has been having a lot of diffuse weakness, muscle weakness, back spasm, stiff body. This is limiting his ambulation. No angina. He has dyspnea on exertion. He has mild leg swelling. He has been limited overall. Update 06/30/2018: At last visit I had stopped lovastatin due to his muscle complaints. I checked his thyroid, liver, and other biochemical profile and those were non revealing. BS was elevated (taken care of by Dr Michel) and his Cr was close to baseline (1.3). He says the muscle pain stopped after stopping lovastatin. He has a lot of back issues and is looking to have back injections. No angina. He has dyspnea on exertion. Echocardiogram 04/29/2018: Global left ventricular systolic function is mildly reduced (Visually estimated EF 45%). Mild left ventricular hypertrophy. Regional wall motion abnormalities (see diagram). Grade 2, moderate diastolic dysfunction (pseudonormalized LV filling pattern). Normal right ventricular systolic function. The left atrium is moderately enlarged. Doppler studies suggest normal right sided pressures. Mild aortic dilatation . No significant valvular abnormalities Update 01/05/2019: He is seen in follow up. No angina. He has mild dyspnea on exertion but not limiting. He has no leg swelling. His physical activity has been limited by his back issues. He is s/p nerve ablation. No prior syncope. He was in the waiting room and felt dizzy and lightheaded and weak, not vertigo. His BS was 200. Systolic blood pressure was 138. Lipid profile 01/01/2019: Triglyceride 292, LDL 143, HDL 34, cholesterol 236 Update 07/13/2019: He is seen in follow up. No angina. He has mild dyspnea on exertion but not limiting. This is chronic. He has mild leg swelling (right more than left). At last visit I stopped carvedilol due to bradycardi (more content not included)...[facility]07-11-2023 NoteSubjective: Chief complaint: This patient is seen for follow up Patient ID: Trae Pineda is a 73 y.o. male History of Present Illness Mr Pineda is a pleasant 73 yo M being seen today for follow up. His EMR has been reviewed. He is established with Dr Ariza. He has hypogonadism now managed with Androgel 2 pumps per day. Patient reports significant improvement in symptoms including energy level, libido, and ability to gain muscle mass. He is very happy with this treatment. He has a hx of BPH s/p GLL on 08/2016. He reports that he has had worsened LUTS over the past few months. He was prescribed Cialis 5 mg every day which he discontinued for a while as he thought it was causing lightheadedness. He restarted it about a week ago and is tolerating it well now. PVR today was 8ml. He is having bladder spasms, hesitancy, dysuria and penile/SP pain which is similar to past episodes of prostatitis treated with Bactrim. He also had a rash on the head of his penis which resolved with use of a OTC antifungal cream. He denies perineal pain, fever, chills, nausea, vomiting, abd pain, flank pain, constipation, and hematuria. Prior Labs/Imaging: Results for orders placed or performed in visit on 02/26/23 Testosterone, free and total, and SHBG Result Value Ref Range Testosterone 360 220 - 1000 ng/dL Sex Hormone Binding 28 11 - 80 nmol/L Testosterone, Free 79.3 47 - 244 pg/mL Luteinizing hormone Result Value Ref Range Luteinizing Hormone <0.2 (L) 2 - 12 mIU/mL Follicle stimulating hormone Result Value Ref Range Follicle Stimulating Hormone 0.5 (L) 1 - 19 IU/L Estradiol Result Value Ref Range Estradiol 21.3 (L) 27 - 52 pg/mL Prolactin Result Value Ref Range Prolactin 4.56 1.61 - 18.77 ng/mL Testosterone Result Value Ref Range Testosterone 359 220 - 1000 ng/dL Comprehensive metabolic panel Result Value Ref Range Sodium 143 136 - 145 mmol/L Potassium 4.8 3.5 - 5.1 mmol/L Chloride 108 (H) 98 - 107 mmol/L CO2 28 21 - 31 mmol/L Anion Gap 12 7 - 20 mmol/L BUN 30 (H) 7 - 25 mg/dL Creatinine 1.48 (H) 0.70 - 1.30 mg/dL BUN/Creatinine Ratio 20.3 Glucose 107 (H) 70 - 100 mg/dL Calcium 10.1 8.6 - 10.3 mg/dL AST 14 13 - 39 U/L ALT (SGPT) 14 7 - 52 U/L Alkaline Phosphatase 63 34 - 104 U/L Total Protein 6.6 6.0 - 8.3 g/dL Albumin 4.2 3.5 - 5.7 g/dL Total Bilirubin 0.7 0.3 - 1.0 mg/dL eGFR 49.3 (L) >60.0 mL/min/1.73m*2 PSA Screening Result Value Ref Range PSA 2.0 0.4 - 4 ng/mL CBC auto differential Result Value Ref Range Auto WBC 8.59 4.00 - 10.60 10*3/uL RBC 4.80 4.20 - 5.70 10*6/uL Hemoglobin 14.3 13.0 - 17.0 g/dL Hematocrit 44.1 39.0 - 55.0 % MCV 91.9 82.0 - 98.0 fL MCH 29.8 27.0 - 33.0 pg MCHC 32.4 32.0 - 35.0 g/dL RDW 13.9 11.5 - 15.0 % Neutrophils Relative 64.5 40.0 - 72.0 % Lymphocytes Relative 22.1 20.0 - 45.0 % Monocytes Relative 9.0 5.0 - 12.0 % Eosinophils Relative 2.6 0.0 - 6.0 % Basophils Relative 1.3 (H) 0.0 - 1.0 % Neutrophils Absolute 5.55 1.60 - 7.60 10*3/uL Lymphocytes Absolute 1.90 1.20 - 4.00 10*3/uL Monocytes Absolute 0.77 0.10 - 1.00 10*3/uL Eosinophils Absolute 0.22 0.00 - 0.50 10*3/uL Basophils Absolute 0.11 0.00 - 0.20 10*3/uL Platelets 215 150 - 400 10*3/uL nRBC % 0.0 0.0 - 0.0 % Immature Granulocytes Relative 0.5 0.0 - 1.0 % Immature Granulocytes Absolute 0.04 0.00 - 0.20 10*3/uL Historical: 02/26/23 The patient is a 72 y.o. male who presents with 1. Hypogonadism - Testosterone did not get sent over but patient states over 700 now, previously 171 (low, 08/29/22), Testosterone 108 (low, 04/17/22), - Estradiol 21.4 (), Estradiol 20.7 (low, 04/17/22) - Fatigue has improved - Libido has improved - no vision issues - no headaches - no breast tenderness or discharge - Loss of muscle mass: yes, has improved slightly 2. History of BPH with outflow obstruction, LUTS - s/p GLL on 09/03/2016 - PVR 02/22/22 31 cc - Urgency, 1/4 of time has leakage prior to making it to bathroom, frequency q2-3h, nocturia x 1, feels like he is incompletely emptying, -He notes a small stream and lack of control. He has daytime frequency of 4-5. He had done well with his urination after a GLL 09/06/[address] Ariza - MEL by Lupis 02/22/22 not enlarged, nontender - CT Urogram showed enlargement of prostate which encroaches on bladder IPSS /QOL -repeat cysto 06/26/2022 showed regrowth of L lateral lobe 3. History of chronic bacterial prostatitis - UCx 02/22/22 negative - denies fever, chills, and night sweats. reports improved pain s/p abx 4. Erectile dysfunction OSCAR 2 but now getting morning erections Present since before the procedure. able to experience an orgasm with dry ejaculation. Tried cialis with unsatisfactory results. Had slight erection, was able to achieve orgasm, but not satisfied with experience. Last successful intercourse several years ago Interested in PDE-5s, had an echocardiogram and rece (more content not included)...[facility]05-02-2023 Evaluation note* Encounter Date Diagnosis Assessment Notes Treatment Notes Treatment Clinical Notes March, COVID-19 (ICD-10 - U07.1) Instructed to use Robitussin or Mucinex for cough, saline or Flonase NS for congestion, Tylenol for pain and fever. March, Chronic bronchitis, mucopurulent (ICD-10 - J41.1) Mucinex DM as needed. Push fluids [employer] Other 04-20-2023 Evaluation note* Encounter Date Diagnosis Assessment Notes Treatment Notes Treatment Clinical Notes Feb, Pulmonary nodule (ICD-10 - R91.1) CT: RML 4mm nodule - 02/2022 CT: RML 7mm nodule - 02/2023 [employer] Other 04-11-2023 Evaluation note* Encounter Date Diagnosis Assessment Notes Treatment Notes Treatment Clinical Notes Feb, Pulmonary nodule (ICD-10 - R91.1) [employer] Other 04-11-2023 NoteUrology Clinic H&P Dr. Diony Ariza MD Patient: Trae Pineda Date of : 1950 CHIEF COMPLAINT: Low testosterone HISTORY OF PRESENT ILLNESS: The patient is a 72 y.o. male who presents with 1. Hypogonadism - Testosterone did not get sent over but patient states over 700 now, previously 171 (low, 08/29/22), Testosterone 108 (low, 04/17/22), - Estradiol 21.4 (/), Estradiol 20.7 (low, 04/17/22) - Fatigue has improved - Libido has improved - no vision issues - no headaches - no breast tenderness or discharge - Loss of muscle mass: yes, has improved slightly 2. History of BPH with outflow obstruction, LUTS - s/p GLL on 09/03/2016 - PVR 02/22/22 31 cc - Urgency, 1/4 of time has leakage prior to making it to bathroom, frequency q2-3h, nocturia x 1, feels like he is incompletely emptying, -He notes a small stream and lack of control. He has daytime frequency of 4-5. He had done well with his urination after a GLL 09/06/[address] Ariza - MEL by Lupis 02/22/22 not enlarged, nontender - CT Urogram showed enlargement of prostate which encroaches on bladder IPSS /QOL -repeat cysto 06/26/2022 showed regrowth of L lateral lobe 3. History of chronic bacterial prostatitis - UCx 02/22/22 negative - denies fever, chills, and night sweats. reports improved pain s/p abx 4. Erectile dysfunction OSCAR 2 but now getting morning erections Present since before the procedure. able to experience an orgasm with dry ejaculation. Tried cialis with unsatisfactory results. Had slight erection, was able to achieve orgasm, but not satisfied with experience. Last successful intercourse several years ago Interested in PDE-5s, had an echocardiogram and received cardiac clearance - can only get semi-erections, not hard enough for intercourse - Testosterone 108 (04/17/22) 5. Giuseppe hematuria, resolved - CT urogram 03/13/22 negative - UA 02/22/22 suspicious for recurrent chronic prostatitis, Bactrim given at last visit s/p tx -cystoscopy on 06/26/2022 revealed with area of bladder neck/prostate on 3-o clock position on left side with bleeding incomplete bladder visualization due to bleeding small clots removed. 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 Suprapubic discomfort - chronic, got better with bactrim, but returned in 05/2022 - no dysuria Other labs: PSA 1.4 (04/17/22) Patient's old records, notes and chart reviewed and summarized above. Past Medical History: Past Medical History: Diagnosis Date Coronary artery disease, non-occlusive Anxiety COPD (chronic obstructive pulmonary disease) ([facility]) Depression Diabetes mellitus ([facility]) Hyperlipemia Hypertension Past Surgical History: Past Surgical History: Procedure Laterality Date APPENDECTOMY CARDIAC CATHETERIZATION CARPAL TUNNEL RELEASE Previous surgery: GLL in 2016 Medications: Current Outpatient Medications on File Prior to Visit Medication Sig Dispense Refill amLODIPine (Norvasc) 5 mg tablet Take 1 tablet by mouth in the morning. aspirin 81 mg EC tablet Take 1 tablet every day by oral route. ezetimibe (Zetia) 10 mg tablet Take 1 tablet by mouth in the morning. insulin NPH and regular human (HumuLIN 70/30 U-100 Insulin) 100 unit/mL (70-30) injection Inject 50 units twice a day by sub-q route for 90 days. lisinopril 10 mg tablet Take 1 tablet every day by oral route. ranolazine (Ranexa) 500 mg 12 hr tablet Take 1 tablet by mouth in the morning and at bedtime. sulfamethoxazole-trimethoprim (Bactrim DS) 800-160 mg tablet Take two pills a day for 2 weeks. Then, take one pill a day for 4 weeks 56 tablet 0 tadalafil (Cialis) 5 mg tablet Take 1 tablet (5 mg) by mouth in the morning. 90 tablet 3 testosterone (AndroGeL) 20.25 mg/1.25 gram (1.62 %) gel in metered-dose pump Place 2 Pump on the skin in the morning. 75 g 5 No current facility-administered medications on file prior to visit. Allergies: [id number]-aod-ckj reductase inhibitors and Hydralazine Social History: Social History Socioeconomic History Marital status: Spouse name: Not on file Number of children: Not on file Years of education: Not on file Highest education level: Not on file Occupational History Not on file Tobacco Use Smoking status: Former Types: Cigarettes Smokeless tobacco: Never Substance and Sexual Activity Alcohol use: Not on file Drug use: Not on file Sexual activity: Not on file Other Topics Concern Not on file Social History Narrative Not on file Social Determinants of Health Financial Resource Strain: Not on file Food Insecurity: Not on file Transportation Needs: Not on file Physical Activity: Not on file Stress: Not on file Social Connections: Not on file Intimate [place] (more content not included)...[facility] 01-11-2023 Evaluation + Plan noteExtracted from: Title:Pain Managment Follow up Author:Margareth Umaña Date:01/11/23 Impression and Plan Patient is a 72-year-old male with a past medical history significant for lumbosacral stenosis and lumbosacral neuritis. Patient underwent bilateral L5-S1 transforaminal epidural steroid injection done on 12/12/2022 and has obtained significant relief. He is comfortable and happy. He is doing well. He does not have any significant pain or complaints. He does not have any concerns at this time. He wants to just continue to monitor himself and see how he does. He is not using the medications any longer. He is going to follow-up with her services as needed. He will call should he require a repeat injection. LEONOR score: 19 [facility]02-21-2023 Evaluation note* Encounter Date Diagnosis Assessment Notes Treatment Notes Treatment Clinical Notes Dec, Primary hypertension (ICD-10 - I10) This patient is instructed to consume a healthy, low-fat, low-salt diet. They are also encouraged to continue exercise to achieve/maintain a normal BMI. Dec, ASHD (arteriosclerotic heart disease) (ICD-10 - I25.10) Echo: LVEF 60%, dilated RV, RVSP 34 - 07/2022 This patient is stable without activity related CP, dyspnea or lightheadedness. They are instructed to continue exercise and AHA diet plan. Dec, Elevated cholesterol (ICD-10 - E78.00) Diet and exercise with continued statin therapy. Dec, Type 2 diabetes mellitus with hyperglycemia (ICD-10 - E11.65) This patient is following a comprehensive diabetic treatment plan. They are checking their feet daily for calluses and nonhealing ulcers. They are being seen for yearly dilated eye examinations. Goals: SBP less than 130, LDL less than 100, FBS less than 140, AC and A1C less than 7%. They are checking their BS daily, will which are reviewed at the office visit. BS have dropped since initiating Testosterone He is skipping insulin injections at night, resulting in fluctuating BS Suggest decreasing insulin to 10u bid and increase as needed. 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 They are to use intermittent heat and ice as needed. They may schedule a massage or gentle manipulation. They may safely use Tylenol as needed. f/u pain clinic and PT as needed. Dec, Chronic venous insufficiency (ICD-10 - I87.2) Avoid salt and elevate lower extremities, support stockings, inspect legs and feet daily for blisters and ulcerations. Dec, Cigarette nicotine dependence in remission (ICD-10 - F17.211) Continue abstinence Dec, Right carotid bruit (ICD-10 - R09.89) Carotid US: 50-69% - 2019, Carotid US: < 50% ICA, 75% right carotid bulb - 2020 Continue ASA and Repatha. Control BP, BS Serial US Dec, Pulmonary nodule (ICD-10 - R91.1) CT: RML 4mm nodule - 02/2022 Serial LDCT for lung cancer detection [employer] Other 01-25-2023 Note [id number]:[address] [place] [address] [facility] Dr. Diony Ariza MD Patient: Trae Pineda Date of : 1950 CHIEF COMPLAINT: Low testosterone HISTORY OF PRESENT ILLNESS: The patient is a 72 y.o. male who presents with The patient is a 72 y.o. male who presents with 1. Hypogonadism - Testosterone 171 (low, 08/29/22), Testosterone 108 (low, 04/17/22), - Estradiol 28.9 (08/29/22), Estradiol 20.7 (low, 04/17/22) - has fatigue, low ambition - low libido - no vision issues - no headaches - no breast tenderness or discharge - Loss of muscle mass: yes 2. History of BPH with outflow obstruction, LUTS - s/p GLL on 09/03/2016 - PVR 02/22/22 31 cc - Urgency, 1/4 of time has leakage prior to making it to bathroom, frequency q2-3h, nocturia x 1, feels like he is incompletely emptying, -He notes a small stream and lack of control. He has daytime frequency of 4-5. He had done well with his urination after a GLL 09/06/[address] Ariza - MEL by Lupis 02/22/22 not enlarged, nontender - CT Urogram showed enlargement of prostate which encroaches on bladder IPSS /QOL -repeat cysto 06/26/2022 showed regrowth of L lateral lobe 3. History of chronic bacterial prostatitis - UCx 02/22/22 negative - denies fever, chills, and night sweats. reports improved pain s/p abx 4. Erectile dysfunction OSCAR 2 Present since before the procedure. able to experience an orgasm with dry ejaculation. Tried cialis with unsatisfactory results. Had slight erection, was able to achieve orgasm, but not satisfied with experience. Last successful intercourse several years ago Interested in PDE-5s, had an echocardiogram and received cardiac clearance - can only get semi-erections, not hard enough for intercourse - Testosterone 108 (04/17/22) 5. Giuseppe hematuria, resolved - CT urogram 03/13/22 negative - UA 02/22/22 suspicious for recurrent chronic prostatitis, Bactrim given at last visit s/p tx -cystoscopy on 06/26/2022 revealed with area of bladder neck/prostate on 3-o clock position on left side with bleeding incomplete bladder visualization due to bleeding small clots removed. 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 Suprapubic discomfort - chronic, got better with bactrim, but returned in 05/2022 - no dysuria Other labs: PSA 1.4 (04/17/22) Patient's old records, notes and chart reviewed and summarized above. Past Medical History: Past Medical History: Diagnosis Date Coronary artery disease, non-occlusive Anxiety COPD (chronic obstructive pulmonary disease) ([facility]) Depression Diabetes mellitus ([facility]) Hyperlipemia Hypertension Past Surgical History: Past Surgical History: Procedure Laterality Date APPENDECTOMY CARDIAC CATHETERIZATION CARPAL TUNNEL RELEASE Previous surgery: GLL in 2015 Medications: Current Outpatient Medications on File Prior to Visit Medication Sig Dispense Refill amLODIPine (Norvasc) 5 mg tablet Take 1 tablet by mouth in the morning. aspirin 81 mg EC tablet Take 1 tablet every day by oral route. ezetimibe (Zetia) 10 mg tablet Take 1 tablet by mouth in the morning. insulin NPH and regular human (HumuLIN 70/30 U-100 Insulin) 100 unit/mL (70-30) injection Inject 50 units twice a day by sub-q route for 90 days. lisinopril 10 mg tablet Take 1 tablet every day by oral route. nitroglycerin (Nitrostat) 0.4 mg SL tablet if needed. ranolazine (Ranexa) 500 mg 12 hr tablet Take 1 tablet by mouth in the morning and at bedtime. sulfamethoxazole-trimethoprim (Bactrim DS) 800-160 mg tablet Take two pills a day for 2 weeks. Then, take one pill a day for 4 weeks 56 tablet 0 No current facility-administered medications on file prior to visit. Allergies: Kykocmt-yag-xzj reductase inhibitors and Hydralazine Social History: Social History Socioeconomic History Marital status: Spouse name: Not on file Number of children: Not on file Years of education: Not on file Highest education level: Not on file Occupational History Not on file Tobacco Use Smoking status: Former Types: Cigarettes Smokeless tobacco: Never Substance and Sexual Activity Alcohol use: Not on file Drug use: Not on file Sexual activity: Not on file Other Topics Concern Not on file Social History Narrative Not on file Social Determinants of Health Financial Resource Strain: Not on file Food Insecurity: Not on file Transportation Needs: Not on file Physical Activity: Not on file Stress: Not on file Social Connections: Not on file Intimate Partner Violence: Not on file Housing Stability: Not on file REVIEW OF SYSTEMS: General ROS: negative, no fatigue Psychological ROS: no depression, no suicidal thoughts ENT ROS: no bleeding, no ear tingling Hematological and Lymphat (more content not included)...[facility]01-03-[facility] NoteUrology Clinic H&P Dr. Diony Ariza MD Patient: Trae Pineda Date of : 1950 CHIEF COMPLAINT: Giuseppe hematuria HISTORY OF PRESENT ILLNESS: The patient is a 72 y.o. male who presents with 1. Giuseppe hematuria, resolved - CT urogram 03/13/22 negative - UA 02/22/22 suspicious for recurrent chronic prostatitis, Bactrim given at last visit s/p tx -cystoscopy on 06/26/2022 revealed with area of bladder neck/prostate on 3-o clock position on left side with bleeding incomplete bladder visualization due to bleeding small clots removed. cytology sent - OR for cystoscopy with biopsy of bladder neck/prostate, with fulguration on 07/02/2022, biopsy came back benign with cystitis cystica - hematuria resolved - Ucx from OR > 10K staphylococcus epidermidis 2. Suprapubic discomfort - chronic, got better with bactrim, but returned in 05/2022 - no dysuria 3. Hypogonadism - Testosterone 108 (low, 04/17/22) - Estradiol 20.7 (low, 04/17/22) - has fatigue, low ambition - low libido - no vision issues - no headaches - no breast tenderness or discharge - Loss of muscle mass: yes 4. History of BPH with outflow obstruction, LUTS - s/p GLL on 09/03/2016 - PVR 02/22/22 31 cc - urgency, 1/4 of time has leakage prior to making it to bathroom, frequency q2-3h, nocturia x 1, feels like he is incompletely emptying, He notes a small stream and lack of control. He has daytime frequency of 4-5. He had done well with his urination after a GLL 09/06/[address] Ariza - MEL by Lupis 02/22/22 not enlarged, nontender - CT Urogram showed enlargement of prostate which encroaches on bladder IPSS /QOL -repeat cysto 06/26/2022 showed regrowth of L lateral lobe 5. History of chronic bacterial prostatitis - UCx 02/22/22 negative - denies fever, chills, and night sweats. reports improved pain s/p abx 6. Erectile dysfunction OSCAR 2 Present since before the procedure. able to experience an orgasm with dry ejaculation. Tried cialis with unsatisfactory results. Had slight erection, was able to achieve orgasm, but not satisfied with experience. Last successful intercourse several years ago Interested in PDE-5s, will need cardiac clearance - can only get semi-erections, not hard enough for intercourse - Testosterone 108 (04/17/22) Other labs: PSA 1.4 (04/17/22) Patient's old records, notes and chart reviewed and summarized above. Past Medical History: Past Medical History: Diagnosis Date Coronary artery disease, non-occlusive Anxiety COPD (chronic obstructive pulmonary disease) ([facility]) Depression Diabetes mellitus ([facility]) Hyperlipemia Hypertension Past Surgical History: Past Surgical History: Procedure Laterality Date APPENDECTOMY CARDIAC CATHETERIZATION CARPAL TUNNEL RELEASE Medications: Current Outpatient Medications on File Prior to Visit Medication Sig Dispense Refill amLODIPine (Norvasc) 5 mg tablet Take 1 tablet by mouth in the morning. aspirin 81 mg EC tablet Take 1 tablet every day by oral route. ezetimibe (Zetia) 10 mg tablet Take 1 tablet by mouth in the morning. insulin NPH and regular human (HumuLIN 70/30 U-100 Insulin) 100 unit/mL (70-30) injection Inject 50 units twice a day by sub-q route for 90 days. lisinopril 10 mg tablet Take 1 tablet every day by oral route. nitroglycerin (Nitrostat) 0.4 mg SL tablet if needed. ranolazine (Ranexa) 500 mg 12 hr tablet Take 1 tablet by mouth in the morning and at bedtime. sulfamethoxazole-trimethoprim (Bactrim DS) 800-160 mg tablet Take two pills a day for 2 weeks. Then, take one pill a day for 4 weeks 56 tablet 0 No current facility-administered medications on file prior to visit. Allergies: Vxaolmw-gth-fdc reductase inhibitors and Hydralazine Social History: Social History Socioeconomic History Marital status: Spouse name: Not on file Number of children: Not on file Years of education: Not on file Highest education level: Not on file Occupational History Not on file Tobacco Use Smoking status: Former Types: Cigarettes Smokeless tobacco: Never Substance and Sexual Activity Alcohol use: Not on file Drug use: Not on file Sexual activity: Not on file Other Topics Concern Not on file Social History Narrative Not on file Social Determinants of Health Financial Resource Strain: Not on file Food Insecurity: Not on file Transportation Needs: Not on file Physical Activity: Not on file Stress: Not on file Social Connections: Not on file Intimate Partner Violence: Not on file Housing Stability: Not on file Family History: No family history on file. Previous Urologic Family history: REVIEW OF SYSTEMS: General ROS: has fatigue Endocrine ROS: negative Respiratory ROS: no wheezing, no shortness of breath Cardiovascular ROS: no chest pain Gastrointestinal ROS: no constipation, no diarrhea Genito-Urinary ROS: see HPI Musculoskeletal ROS: no (more content not included)...[facility] No data available for this section [facility] Future Appointments Appointment Date:01/11/2023 01:45:00 PM Scheduled Provider:Margareth De La Cruz PA-C Location:[facility] Appointment Type[facility] Future Appointments Appointment Date:09/06/2023 11:00:00 AM Scheduled Provider:Margareth De La Cruz PA-C Location:[facility] Appointment Type:Pain Management - Follow Up ([facility]) [facility] noteNo [email or web address] Correspondent Other History general Narrative - Reported* Type Description Date Medical History prostate Medical History heart disease Medical History Arthritis Medical History hyperlipidemia Medical History hypertension Medical History Type 2 diabetes efe itus with chronic kidney disease, without long-term current use of insulin, unspecified CKD stage Medical History Obstructive sleep apnea Medical History Lumbar spondylosis Medical History Essential hypertension Medical History Hyperlipidemia, mixed Medical History Chronic bronchitis, mucopurulent Medical History Arteriosclerotic heart disease Medical History Calculus of gallblad carina without cholecystitis without obstruction Medical History Quadriceps strain, right, initia l encounter Medical History Hematuria, gross Medical History 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, unspecified chronic disease 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 nicity Medical History Arteriosclerosis of abdominal ao rta Medical History Right carotid bruit Medical History Acute bacterial conjunctivitis o f both eyes Medical History Primary osteoarthritis of right knee Medical History Dyspnea on effort Medical History Chronic venous insufficiency Medical History Nicotine dependence, cigarettes, in remission Medical History Intermittent palpitations Medical History Type 2 diabetes mellitus with di abetic polyneuropathy Medical History Conjunctivitis Medical History Lumbar spondylosis with myelopat hy Surgical History ankle surgery Surgical History appendectomy Surgical History carpal tunnel Surgical History prostate Surgical History Neck fusion Surgical History Triple bypass Hospitalization History see sx history [employer] Other History general Narrative - Reported* Type Description Date Medical History prostate Medical History heart disease Medical History Arthritis Medical History hyperlipidemia Medical History hypertension Medical History Type 2 diabetes efe itus with chronic kidney disease, without long-term current use of insulin, unspecified CKD stage Medical History Obstructive sleep apnea Medical History Lumbar spondylosis Medical History Essential hypertension Medical History Hyperlipidemia, mixed Medical History Chronic bronchitis, mucopurulent Medical History Arteriosclerotic heart disease Medical History Calculus of gallblad carina without cholecystitis without obstruction Medical History Quadriceps strain, right, initia l encounter Medical History Hematuria, gross Medical History 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, unspecified chronic disease 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 nicity Medical History Arteriosclerosis of abdominal ao rta Medical History Right carotid bruit Medical History Acute bacterial conjunctivitis o f both eyes Medical History Primary osteoarthritis of right knee Medical History Dyspnea on effort Medical History Chronic venous insufficiency Medical History Nicotine dependence, cigarettes, in remission Medical History Intermittent palpitations Medical History Type 2 diabetes mellitus with di abetic polyneuropathy Medical History Conjunctivitis Medical History Lumbar spondylosis with myelopat hy Medical History Diabetic nonproliferative retino jackie Surgical History ankle surgery Surgical History appendectomy Surgical History carpal tunnel Surgical History prostate Surgical History Neck fusion Surgical History Triple bypass Hospitalization History see sx history [employer] Other Hospital Discharge instructions No data available for this section [facility] No data available for this section [facility] Summary Purpose Family History No Family History Records FoundNo Family History Records Found No data available for this section No Family History Records Found No data available for this section No Family History Records Found Advance Directives No Advanced Directives Records FoundNo Advanced Directives Records FoundNo Advanced Directives Records FoundNo Advanced Directives Records Found Additional Source Comments (unrecognized sect ion and content) No Status Records FoundNo Status Records FoundNo Status Records FoundNo Status Records Found INFORMATION SOURCE (unrecogn ized section and content) DATE CREATED AUTHOR 07/24/2022 [facility] DATE CREATED AUTHOR AUTHOR'S ORGANIZ ATION [facility]/11/2023 [facility] DATE CREATED AUTHOR AUTHOR'S ORGANIZ ATION 11/08/2023 [facility] DATE CREATED AUTHOR AUTHOR'S ORGANIZ ATION 11/15/2023 [facility] Patient Care team informatio n (unrecognized section and content) Personnel Name: CRISTOBAL MICHEL DO Address: Address: [address] [place] [address] Personnel Name: CRISTOBAL MICHEL DO Address: Address: [address] [place] [address] Personnel Name: CRISTOBAL MICHEL DO Address: Address: [address] [place] [address] Personnel Name: CRISTOBAL MICHEL DO Address: Address: [address] [place] [address] Personnel Name: CRISTOBAL MICHEL DO Address: Address: [address] [place] [address] Personnel Name: CRISTOBAL MICHEL DO Address: Address: [address] [place] [address] Personnel Name: CRISTOBAL MICHEL DO Address: Address: [address] [place] [address] Personnel Name: CRISTOBAL MICHEL DO Address: Address: [address] [place] [address] REASON FOR VISIT (unrecogniz ed section and content) 4 MONTH FOLLOW UPBS readingC T scanNo InformationCT resultscovid - paxlovidLab Resultsrepeat CT scanNo InformationCT resultsCheck UpNo Information FOR RECORDS PERTAINING TO PATIENTS WHO ARE OR HAVE BEEN ENROLLED IN A CHEMICAL DEPENDENCY/SUBSTANCEABUSE PROGRAM, SOME INFORMATION MAY BE OMITTED. This clinical summary was aggregated from multiple sources. Caution should be exercised in using it in the provision of clinical care. This summary normalizes information from multiple sources, and as a consequence, information in this document may materially change the coding, format and clinical context of patient data. In addition, data may be omitted in some cases. CLINICAL DECISIONS SHOULD BE BASED ON THE PRIMARY CLINICAL RECORDS. [employer] [facility]. provides no warranty or guarantee of the accuracy or completeness of information in this document.
== END 2023-11-19 10:23 | disposition home or self-care (01) ==
LOC: MRI 10:22
PROVIDERS: PCP Internal Medicine
DX: M48.062 Spinal stenosis, lumbar region with neurogenic claudication (principal); M54.17 Radiculopathy, lumbosacral region; M51.36 Other intervertebral disc degeneration, lumbar region
CPT/HCPCS: 72148

== ENCOUNTER 2023-11-26 09:45 | Outpatient (OUT) | payer MEDICARE, SELFPAY ==
[2023-11-26 10:35] LABS: Estimated Average Glucose 151 mg/dL; Glycohemoglobin A1C 6.9 % (4.5-6.2)
== END 2023-11-26 09:46 | disposition home or self-care (01) ==
LOC: LAB 09:47
PROVIDERS: PCP Internal Medicine; Visit Provider Internal Medicine
DX: E11.65 Type 2 diabetes mellitus with hyperglycemia (principal)
CPT/HCPCS: 36415; 83036

== ENCOUNTER 2023-11-26 09:49 | Outpatient (OUT) | payer MEDICARE, SELFPAY ==
[2023-11-27 04:07] LABS: Estradiol 28.2 pg/mL (7.6-42.6); Testosterone 444 ng/dL (264-916)
== END 2023-11-26 09:50 | disposition home or self-care (01) ==
PROVIDERS: PCP Internal Medicine
DX: E11.65 Type 2 diabetes mellitus with hyperglycemia (principal); E29.1 Testicular hypofunction
CPT/HCPCS: 36415; 82670; 83036; 84403

== ENCOUNTER 2024-03-04 09:02 | Outpatient (OUT) | payer MEDICARE, SELFPAY ==
--- OUTSIDE RECORDS SUMMARY | 2024-03-04 09:10 | XMS_ITS | CCD ---
Author Organization [facility] Care Team Providers Care Continuing Education Instructor Name Role Phone LUPIS DENNIS Admitting Unavailable LUPIS DENNIS Attending Unavailable BALL, CRISTOBAL Referring Unavailable BALL, CRISTOBAL Primary Care Unavailable BALL, CRISTOBAL Primary Care Physician Ball, Cristobal Unavailable SOM, DR DON Admitting Unavailable [...] Care Unavailable MISC, DR MOSLEY Consulting Unavailable BALL, DR DON Admitting Unavailable BALL, [...] Admitting Unavailable MISC, DR MOSLEY Attending Unavailable SOM, DR DON Primary Care Unavailable MISC, DR MOSLEY Consulting Unavailable BALL, DR DON Admitting Unavailable BALL, DR DON Attending Unavailable BALL, DR DNO Primary Care Unavailable BALL, DR DON Consulting Unavailable SHEILASLOAN Consulting Unavailable MISC, DR MOSLEY Admitting Unavailable MISC, DR MOSLEY Attending Unavailable BALL, DR DON Primary Care Unavailable MISC, DR MOSLEY Consulting Unavailable CRISTOBAL KEARNS Referring Unavailable Margareth De La Cruz Admitting Unavailable Margareth De La Cruz Attending Unavailable TRINY De La Cruz Admitting Unavailabl e BALL, CRISTOBAL Referring Unavailable Margareth De La Cruz Attending Unavailable TRINY De La Cruz Admitting Unavailabl e BALL, CRISTOBAL Referring Unavailable Jono, Margareth Attending Unavailable TRINY De La Cruz Admitting Unavailabl e BALL, CRISTOBAL Referring Unavailable Margareth De La Cruz Attending Unavailable Himanshu Wright Attending Unavailable Himanshu Wright Referring Unavailable MD Himanshu Wright Admitting Unavailable John Cannon Attending Unavailable John Cannon Referring Unavailable John Cannon Admitting Unavailable SINDHWANI, DIONY Referring Unavailable SINCHALO, DIONY Attending Unavailable MOI MOSS Attending Unavailable MOI MOSS Attending Unavailable SINDHWANI, DIONY Admitting Unavailable SINDHWANI, DIONY Attending Unavailable SINDHWANI, DIONY Attending Unavailable HARPREET WATSON Attending Unavailable SINDHWANI, DIONY Attending Unavailable MOI MOSS Referring Unavailable Allergies Allergy Classification Reported Allergen(s) Allergy Type Date of Onset Reaction(s) Facility (3 sources) black walnut pollen extract; Translations: [[id number] REDUCTASE INHIBITORS] Drug Allergy 01-27-2013 [facility] Repository (12 sources) HMG-CoA reductase inhibitor; Translations: [statins] Drug allergy muscle ache [facility] (13 sources) hydrALAZINE; Translations: [hydralazine] Drug Allergy 07-25-2022 palpatations [facility] Medications Current Medications Medication Drug Class(es) Dates Sig (Normalized) Sig (Original) Tylenol (16 sources) Start: 03-25-2013 Tylenol 500 mg , [...] Alpha Lipoic Acid 600 mg oral capsule (11 sources) Start: 10-05-2021 take 1 capsule by mouth once daily Alpha Lipoic Acid 600 mg oral capsule 600 mg = 1 cap(s), Oral, Daily, Refills(s) 0 Start Date: 10/05/21 Status: Ordered amLODIPine 10 mg oral tablet (20 sources) Dihydropyridine Calcium Channel Diana Start: 05-18-2020 take 5 mg by mouth once daily Norvasc 5 mg, Oral, Daily, Refills(s) 0 Start Date: 05/18/20 Status: Ordered Start: 05-18-2020 take 10 mg by mouth once daily Norvasc 10 mg, Oral, Daily, Refills(s) 0 Start Date: 05/18/20 Status: Ordered Antibiotic (5 sources) Start: 09-06-2023 Antibiotic Antibiotic Start Date: 09/06/23 Status: Ordered ascorbic acid 500 mg oral tablet (10 sources) Vitamin C Start: 09-06-2023 take 500 [...] 1 tablet Orally Once a day Active baclofen 5 mg oral tablet (1 source) gamma-Aminobutyric Acid-ergic Agonist Start: 02-14-2024 take 1 tablet by mouth three times daily as needed for muscle spasms baclofen 5 mg oral tablet 5 mg = 1 tab(s), Oral, TID, PRN Spasm, # 30 tab(s), Refills(s) 0, Pharmacy: [facility]/pharmacy #[id number], 183, cm, 02/14/24 13:46:00 EDT, Height/Length Dosing, 110.3, kg, 02/14/24 13:46:00 EDT, Weight Dosing Start Date: 02/14/24 Status: Ordered Calcium + D 315-200 MG-UNIT (15 sources) take 1 tablet by mouth twice daily Calcium + D 315-200 MG-UNIT 1 tablet Orally Twice a day Active calcium carbonate 1500 mg oral tablet (11 sources) Start: 05-18-2020 take 1 tablet by mouth once daily calcium (as carbonate) 600 mg oral tablet 600 mg = 1 tab(s), Oral, Daily, Refills(s) 0 Start Date: 05/18/20 Status: Ordered [facility] - (5 sources) [facility] - as directed Orally Active cyclobenzaprine hydrochloride 10 mg oral tablet (4 sources) Muscle Relaxant Start: 11-08-2022 take 1 tablet by mouth three times daily as needed for muscle spasms cyclobenzaprine 10 mg Tab 10 mg = 1 tab(s), Oral, TID, PRN for spasm, # 30 tab(s), Refills(s) 0, Pharmacy: [facility]/pharmacy #[id number], 182.9, cm, 11/08/22 15:17:00 EST, Height/Length Dosing, 113.4, kg, 12/29/21 13:07:00 EST, Weight Dosing Start Date: 11/08/22 Status: Ordered diclofenac sodium 10 mg/ml topical cream (4 sources) Nonsteroidal Anti-inflammatory Drug Start: 10-05-2021 diclofenac sodium 1% topical cream Refill(s) 0 Start Date: 10/05/21 Status: Ordered 1 ml evolocumab 140 mg/ml prefilled syringe (20 sources) PCSK9 Inhibitor Start: 10-05-2021 inject 140 mg by subcutaneous injection every other week Repatha 140 mg/mL subcutaneous solution SubCutaneous, q2wk, Refills(s) 0 Start Date: 10/05/21 Status: Ordered ezetimibe 10 mg oral tablet (20 sources) Dietary Cholesterol Absorption Inhibitor Start: 05-18-2020 take 10 mg by mouth once daily Zetia 10 mg, Oral, Daily, Refills(s) 0 Start Date: 05/18/20 Status: Ordered FreeStyle Singh 14 Day [place] - (15 sources) FreeStyle Singh 14 Day [place] - as directed Active FreeStyle Singh 14 Day Sensor - (15 sources) FreeStyle Singh 14 Day Sensor - USE TO TEST BLOOD SUGAR DAILY for 28 Active FreeStyle Singh 14 Day Sensor - as directed Active gabapentin 300 mg oral capsule (8 sources) Anti-epileptic Agent Start: 02-14-2024 take 1 capsule by mouth twice daily gabapentin 300 mg Cap 300 mg = 1 cap(s), Oral, BID, # 60 cap(s), Refills(s) 0, Pharmacy: [facility]/pharmacy #[id number], 183, cm, 02/14/24 13:46:00 EDT, Height/Length Dosing, 110.3, kg, 02/14/24 13:46:00 EDT, Weight Dosing Start Date: 02/14/24 Status: Ordered Start: 12-16-2023 take 1 capsule by [facility] once daily at bedtime gabapentin 300 mg Cap 300 mg = 1 cap(s), Oral, Once a day (at bedtime), # 30 cap(s), Refills(s) 1, [id number], cm, 12/16/23 10:37:00 EST, Height/Length Dosing, 102.3, kg, 12/16/23 10:37:00 EST, Weight Dosing Start Date: 12/16/23 Status: Ordered Start: 11-08-2022 take 1 capsule by [facility] at bedtime gabapentin 100 mg Cap 100 mg = 1 cap(s), Oral, Bedtime, # 30 cap(s), Refills(s) 0, [id number] 182.9, cm, 11/08/22 15:17:00 EST, Height/Length [...] DAILY Active loratadine 10 mg oral tablet (5 sources) take 1 tablet by mouth every twenty-four hours Loratadine 10 MG 1 tablet Orally Once a day Active PreserVision AREDS (11 sources) Start: take 1 capsule by mouth once daily PreserVision AREDS 1 cap(s), Oral, Daily, Refill(s) 0 Start Date: 10/05/21 Status: Ordered 12 hr ranolazine 500 mg extended release oral tablet (20 sources) Anti-anginal Start: 020 take 500 mg by mouth twice daily Ranexa 500 mg, Oral, BID, Refills(s) 0 Start Date: 05/18/20 Status: Ordered tadalafil 5 mg oral tablet (10 sources) Phosphodiesterase 5 Inhibitor Start: 024 Cialis 5 mg oral tablet Refills(s) 0 Start Date: 02/14/24 Status: Ordered Testosterone (18 sources) Androgen Start: 023 testosterone 2% transdermal cream See Instructions, apply topically daily, Refills(s) 0 Start Date: 12/12/22 Status: Ordered AndroGel Pump 20 .25 MG/ACT (1.62%) 1 pump to skin in the morning to shoulder, upper arms or abdomen Transdermal Once a day Active thioctic acid 200 mg oral capsule (5 sources) take 1 capsule by mouth every [...] Problem Classification Problem Date Documented Date Episodic/Chronic Biliary tract disease (15 sources) Cholelithiasis without obstruction; Translations: [Calculus of gallbladder without cholecystitis without obstruction] Episodic Cardiac dysrhythmias (15 sources) Intermittent palpitations; Translations: [Palpitations] Episodic Chronic kidney disease (11 sources) Chronic kidney disease 05-18-2020 Chronic Chronic kidney disease (4 sources) Chronic kidney disease; Translations: [Chronic kidney disease, stage 3b] Onset: 06-04-2023 Chronic obstructive pulmonary disease and bronchiectasis (18 sources) Mucopurulent chronic bronchitis; Translations: [Mucopurulent chronic bronchitis] Onset: 11-27-2022 Chronic Coronary atherosclerosis and other heart disease (20 sources) Angina pectoris; Translations: [History of myocardial infarction] Onset: 11-27-2022 05-18-2020 Chronic Coronary atherosclerosis and other heart disease (2 sources) Presence of aortocoronary bypass graft; Translations: [Presence of aortocoronary bypass graft] Onset: 01-20-2024 Episodic Deficiency and other anemia (11 sources) Anemia 05-18-2020 Episodic Diabetes mellitus with complications (20 sources) Disorder of kidney due to diabetes mellitus; Translations: [Type 2 diabetes mellitus with diabetic chronic kidney disease] Onset: 07-02-2022 Chronic Diabetes mellitus without complication (12 sources) Diabetes mellitus; Translations: [Type 2 diabetes mellitus without complications] Onset: 11-27-2022 05-18-2020 Chronic Disorders of lipid metabolism (20 sources) Hypercholesterolemia; Translations: [Mixed hyperlipidemia] Onset: 07-02-2022 05-18-2020 Chronic Essential hypertension (20 sources) Hypertensive disorder; Translations: [Essential hypertension] Onset: 07-02-2022 05-18-2020 Chronic Genitourinary symptoms and ill-defined conditions (20 sources) Giuseppe hematuria; Translations: [Gross hematuria] Onset: 05-28-2023 Episodic Heart valve disorders (11 sources) Irregular heart beat 05-18-2020 Episodic Hyperplasia [...] and stenosis of bilateral carotid arteries] Onset: 01-20-2024 Chronic Osteoarthritis (19 sources) Osteoarthritis of knee; Translations: [Unilateral primary osteoarthritis, right knee] Onset: 11-18-2022 Chronic Other aftercare (15 sources) Long-term current use of insulin; Translations: [watermaster (current) use of insulin] Episodic Other and unspecified benign neoplasm (6 sources) Tubular adenoma of colon; Translations: [Tubular adenoma of colon] Episodic Other circulatory disease (14 sources) Carotid bruit; Translations: [Other specified symptoms and signs involving the circulatory and respiratory systems] Episodic Other circulatory disease (3 sources) Other specified symptoms and signs involving the circulatory and respiratory systems; Translations: [Right carotid bruit] Episodic Other diseases of veins and lymphatics (15 sources) Peripheral venous insufficiency; Translations: [Venous insufficiency (chronic) (peripheral)] Episodic Other diseases of veins and lymphatics (1 source) Venous insufficiency (chronic) (peripheral) Episodic Other endocrine disorders (6 sources) Testicular hypofunction; Translations: [TESTICULAR HYPOFUNCTION] Onset: 08-14-2022 Chronic Other lower respiratory disease (15 sources) Dyspnea on exertion; Translations: [Other forms of dyspnea] Episodic Other lower respiratory disease (15 sources) Nodule of lung; Translations: [Solitary pulmonary nodule] Episodic Other lower respiratory disease (6 sources) Shortness of breath; Translations: [SHORTNESS OF BREATH] Onset: 07-25-2022 Episodic Other male genital disorders (2 sources) Male erectile dysfunction, unspecified; Translations: [Male erectile dysfunction, unspecified] Onset: 08-14-2022 Chronic Other nervous system disorders (11 sources) Carpal tunnel syndrome 05-18-2020 Chronic Other nervous system disorders (1 source) Other chronic pain; Translations: [OTHER CHRONIC PAIN] Onset: 11-27-2022 Chronic Other nervous system disorders (1 source) Chronic pain; Translations: [Other chronic pain] Onset: 12-16-2023 Chronic Other non-traumatic joint disorders (15 sources) Arthralgia of the lower leg; Translations: [Pain in left knee] Episodic Other nutritional; endocrine; and metabolic disorders (14 sources) Body mass index 30+ - obesity; Translations: [Body mass index (BMI) 31.0-31.9, adult] Chronic Other nutritional; endocrine; and metabolic disorders (9 sources) Obesity caused by energy imbalance; Translations: [Other obesity due to excess calories] Chronic Other nutritional; endocrine; and metabolic disorders (1 source) Other obesity due to excess calories Chronic Other nutritional; endocrine; and metabolic disorders (1 source) Body mass index (BMI) 32.0-32.9, adult Chronic Peripheral and visceral atherosclerosis (15 sources) Arteriosclerosis of abdominal aorta; Translations: [Atherosclerosis of aorta] Chronic Residual codes; unclassified (11 sources) Sleep apnea 05-18-2020 Chronic Residual codes; unclassified (13 sources) Obstructive sleep apnea syndrome; Translations: [Obstructive sleep apnea (adult) (pediatric)] Chronic Residual codes; unclassified (3 sources) Obstructive sleep apnea (adult) (pediatric); Translations: [Obstructive sleep apnea] Chronic Residual codes; unclassified (11 sources) H/O cardiac surgery 05-18-2020 Episodic Respiratory failure; insufficiency; arrest (adult) (11 sources) 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 airway pressure ventilation 05-18-2020 Chronic Rheumatoid arthritis and related disease (11 sources) Rheumatoid arthritis 05-18-2020 Chronic Spondylosis; intervertebral disc disorders; other back problems (20 sources) Lumbar spondylosis with myelopathy; Translations: [Other spondylosis with myelopathy, lumbar region] Onset: 11-23-2022 Chronic Sprains and strains (16 sources) Strain of right quadriceps muscle, fascia [...] Classification Problem Date Documented Da te Episodic/Chronic Abdominal pain (2 sources) Pelvic and perineal pain; Translations: [Pelvic and perineal pain] Onset: 08-14-2022 Episodic Other aftercare (2 sources) senior care (current) use of insulin; Translations: [PASSENGER RATE CLERK CURRENT USE OF INSULIN] Onset: 11-27-2022 Episodic Other aftercare (1 source) Other penitentiary (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 therapy; Translations: [OTH PASSENGER RATE CLERK CURRENT DRUG THERAPY] Onset: 11-27-2022 Episodic Other aftercare (1 source) watermaster (current) use of aspirin; Translations: [PASSENGER RATE CLERK CURRENT USE OF ASPIRIN] Onset: 11-27-2022 Episodic Other lower respiratory disease (12 sources) Solitary pulmonary nodule; Translations: [SOLITARY PULMONARY NODULE] Onset: 08-14-2022 Episodic Other screening for suspected conditions (not mental disorders or infectious disease) (2 sources) Encounter for screening for malignant neoplasm of prostate; Translations: [Encounter for screening for malignant neoplasm of prostate] Onset: 02-26-2023 Episodic Residual codes; unclassified (2 sources) Pain, unspecified; Translations: [Pain, unspecified] Onset: 10-28-2023 Episodic Screening and history of mental health [...] Test Name Value Interpretation Reference Range Facility Refillon 01-26-2024 Refill [id number] Trae Pineda 1950 M Date Provider Department Center 01/26/2024 [facility] Second Fl No family history on file Reason for Visit and Comments: Med Refill [[id number]] [facility] Office Visiton 01-20-2024 Follow-up visit [id number] Trae Pineda 1950 M Date Provider Department Center 01/20/2024 [facility] No family history on file Level of Service:56111 MT OFFICE/OUTPATIENT ESTABLISHED MOD MDM 30 MIN [facility] Consent for Procedure/Surger yon 01-15-2024 Consent for Procedure/Surgery [id number] .00TIFF [facility] Consent for Treatmenton 12-20 Consent for Treatment [id number] 0TIFF [facility] Discharge Instructionson Discharge Instructions [id number] .00TIFF [facility] IntraOperative Documentson 0 01-15-2024 IntraOperative Documents [id number] .00TIFF [facility] Main OR Intraoperative Recor don 01-15-2024 Main OR Intraoperative Record IntraOp Document Type FTPM Summary Primary Physician: John Cannon DO Finalized Date/Time: 01/15/24 14:25:24 Pt. Name: EDWIN TRAE Lorenzo Anderson/Sex: 1950 Male Med Rec #: [id number] Physician: John Cannon DO Financial #: [id number] Pt. Type: P Room/Bed: / Admit/Disch: 01/15/24 13:16:24 - Institution: Case Times FTPM Entry 1 Patient Times In Room 01/15/24 14:15:00 Out Room 01/15/24 14:24:00 Procedure Times Start 01/15/24 14:18:00 Stop 01/15/24 14:23:00 Anesthesia Times Last Modified By: Deysi Castro RN 01/15/24 14:23:15 Case Attendance FTPM Entry 1 Entry 2 Entry 3 Case Attendee John Cannon DO, RN, Deysi Hartley RN, Lula Schuler Role Performed Surgeon - Primary [place] Roofer Helper - Primary Scrub - Primary Time In 01/15/24 14:15:00 01/15/24 14:15:00 01/15/24 14:15:00 Time Out 01/15/24 14:24:00 01/15/24 14:24:00 01/15/24 14:24:00 Procedure LUMBAR EPIDURAL STEROID LUMBAR EPIDURAL STEROID LUMBAR EPIDURAL STEROID INJECTION(.) INJECTION(.) INJECTION(.) Comments Last Modified By: Deysi Castro RN, RN, Madison A Pritchard RN, Madison A 01/15/24 14:23:16 01/15/24 14:23:16 01/15/24 14:23:16 Entry 4 Case Attendee Leanne Fitzgerald Role Performed [place] P[place] Operator Time In 01/15/24 14:15:00 Time Out 01/15/24 14:24:00 Procedure LUMBAR EPIDURAL STEROID INJECTION(.) Comments Last Modified By: Deysi Castro RN 01/15/24 14:23:16 Perioperative Protocols FTPM Pre-Care Text: Implements protective measures prior to operative or invasive procedure, confirms identity before the operative or invasive procedure, verifies operative procedure, surgical site, and laterality Entry 1 Procedure(s) LUMBAR EPIDURAL STEROID Patient Identity Birthday, ID Band INJECTION(.) Verified (select at Check, Patient least 2): Participation Consents / H and P HandP, Surgery/Procedure Operative Site Present Verified Consent Marking Verified Surgical Site Yes Laterality Verified Yes Verified Procedure Verified Yes Correct Patient Yes Position Verified Availability Equipment, Medication, Prep Dry Yes Verified (If X-ray Applicable) PreOp Antibiotic No Time Out Deysi Castro RN, Roderick RN, Davis Foley DO, John Garcia, Leanne Fitzgerald Time Out Complete 01/15/24 14:15:00 Outcomes Met? Yes Last Modified By: Deysi Castro RN 01/15/24 14:15:45 Post-Care Text: The patient is free from signs and symptoms of injury caused by extraneous objects Allergy Information FTPM Pre-Care Text: Verifies allergies Entry 1 Allergies Reviewed? Yes Allergies Reviewed Self/Patient With Outcomes Met? Yes Last Modified By: Deysi Castro RN 01/15/24 14:09:52 Post-Care Text: The patient received appropriate medication(s) safely administered during the perioperative period Surgical Procedures FTPM Entry 1 Procedure Description Procedure LUMBAR EPIDURAL STEROID Modifiers . INJECTION Surgeon Description L5-S1 ALBA Primary Procedure Yes Primary Surgeon John Cannon DO Start 01/15/24 14:18:00 Stop 01/15/24 14:23:00 Anesthesia Type None Surgical Service Pain Management Wound Class 1 - Clean Last Modified By: Deysi Castro RN 01/15/24 14:23:17 General Case Data FTPM Pre-Care Text: Classifies surgical wound, implements aseptic technique, initiates traffic control Entry 1 Case Information OR Pain Proc Room Case Level Level 2 Wound Class 1 - Clean Specialty Pain Management Preop Diagnosis M54.16 Postop Same As Preop Yes Postop Diagnosis M54.16 Outcomes Met? Yes Last Modified By: Deysi Castro RN 01/15/24 14:15:55 Post-Care Text: The patient is free from signs and symptoms of infection Skin Assessment (Pre Procedure) FTPM Pre-Care Text: Implements protective measures to prevent skin/ tissue injury due to thermal or mechanical sources Evaluates for signs and symptoms of physical injury to skin and tissue Entry 1 Skin Integrity Intact, [place], Warm, and Skin Abnormality No Dry Outcomes Met? Yes Last Modified By: Deysi Castro RN 01/15/24 14:10:01 Post-Care Text: The patient is free from signs and symptoms of injury caused by extraneous objects Patient Positioning FTPM Pre-Care Text: Identifies physical alterations that require additional precautions for procedure-specific positioning, verifies presence of prosthetics or corrective devices, positions the patient, evaluates the patient for signs and symptoms of injury as a result of positioning Entry 1 Procedure LUMBAR EPIDURAL STEROID Body Position Prone INJECTION(.) Feet Uncrossed? Yes Left Arm Position Resting at Side Right Arm Position Resting at Side Left Leg Position Extended Right Leg Position Extended Positioning Device Pillow Under Head Large, Safety Strap, Pillow Large Under Knees Press Points Checked Yes By Deysi Castro RN Outcomes Met? Yes Last Modif (more content not included)... [facility] Main OR Preoperative Recordo n 01-15-2024 Main OR Preoperative Record Holding Area Document Type FTPM Summary Primary Physician: John Cannon DO Finalized Date/Time: 01/15/24 13:38:25 Pt. Name: TRAE PINEDA/Sex: 1950 Male Med Rec #: [id number] Physician: John Cannon DO Financial #: [id number] Pt. Type: P Room/Bed: / Admit/Disch: 01/15/24 13:16:24 - Institution: Case Times Holding FTPM Pre-Care Text: Verifies consent for planned procedure, identifies individual values and wishes concerning care, includes family members in perioperative teaching Secures patient's records' belongings, and valuables, maintains patient's dignity and privacy, and maintains patient confidentiality Entry 1 In Holding 01/15/24 13:36:00 Outcomes Met? Yes Last Modified By: Barb Schmidt RN 01/15/24 13:36:58 Post-Care Text: The patient participates in decisions affecting his or her perioperative plan of care The patient's right to privacy is maintained Surgery Checklist FTPM Entry 1 Patient Birthday, ID Band Procedure History and Physical, Identification: Check, Patient Verification: Surgical Consent, With Participation Patient NPO after Midnight: No Date/Time: 01/15/24 13:37:00 Personal Items: Glasses Personal Items Pt. wearing glasses. Comment: Complaints of Pain: Yes Pain Comment: 06/27 lower back pain Operative Site Yes Marked By: Dr. Cannon Marking: Location: L5-S1 Availability Equipment, X-Ray Verified: Does Patient Smoke No Patient states Yes Comment - Adult -Indigo postop adult Supervision supervision available Case Cancelled in No Holding Area see comments below for reason Last Modified By: Barb Schmidt RN 01/15/24 13:38:23 Finalized By: Barb Schmidt RN Document Signatures Signed By: Barb Schmidt RN 01/15/24 13:38 [facility] Patient Correspondenceon Patient Correspondence [id number]. 00TIFF [facility] Orders Onlyon 12-23-2023 Orders Only [id number] Trae Pineda 1950 M Date Provider Department Center 12/23/2023 [facility] None No family history on file [facility]illon 12-20-2023 Refill [id number] Trae Pineda 1950 M Date Provider Department Center 12/20/2023 [facility] Second Fl No family history on file Reason for Visit and Comments: Med Refill [[id number]] [facility] Office/Clinic Note-Physician on 12-19-2023 Office/Clinic Note-Physician [id number] TIFF [facility] Insurance Correspondence Off iceon 12-17-2023 Insurance Correspondence Office [id number] TIFF [facility] Consent for Treatmenton 11-19 Consent for Treatment [id number]. 00TIFF [facility] Consultation Noteon 12-16-19 24 Consultation Note Patient: KATERINA PINEDA Age: 73 years Sex: Male : 1950 Associated Diagnoses: None Author: Margareth D eLa Cruz PA-C Subjective Chief complaint 12/16/2023 10:23 EST Lower back pain . Patient is a 73-year-old male. He has a past medical history significant for lumbosacral stenosis and lumbosacral neuritis. He presents today after undergoing an updated lumbar MRI scan. He underwent most recently a bilateral L5-S1 transforaminal epidural steroid injection on 08/06/2023. This did not give him any long-term relief. He gave short-term relief but nothing long-term. Prior to that L5-S1 interlaminar epidural steroid injection worked very well. He continues to have lower back pain with right buttock pain and right radiating leg pain but also admits to bilateral leg fatigue. He rates the discomfort a 5/10. This affects his quality of life. This affects his activities and affects his ability to do the things he wants to do. He is overall very bothered by this and wonders if there is anything else that he can possibly do to try to get some relief. Historically, anti-inflammatory medications have not given him [...] History of heart attack / SNOMED CT 1129602064 / Confirmed Acute angina / SNOMED CT 432183563 / Confirmed Irregular heart beat / SNOMED CT 540377807 / Confirmed HTN (hypertension) / SNOMED CT 5228287093 / Confirmed High cholesterol / SNOMED CT 22498483 / Confirmed H/O heart bypass surgery / SNOMED CT 520161505 / Confirmed Apnea, sleep / SNOMED CT 053296854 / Confirmed CPAP (continuous positive airway pressure) dependence / SNOMED CT 8369890949 / Confirmed Enlarged prostate / SNOMED CT 039881076 / Confirmed Chronic kidney disease (CKD) / SNOMED CT 2058014379 / Confirmed Diabetes / SNOMED CT 669862603 / Confirmed Carpal tunnel syndrome / SNOMED CT 56119584 / Confirmed Anemia / SNOMED CT 954971361 / Confirmed Arthritis, rheumatoid / SNOMED CT 465943734 / Confirmed Obesity / ICD-9-CM 278.00 / Possible Obesity / SNOMED CT Z7970Y41-0110-8C75-D02 [id number] / Possible Objective Vital Signs 12/16/2023 10:23 EST Peripheral Pulse Rate 70 bpm Respiratory Rate 14 br/min Systolic Blood Pressure 144 mmHg HI Diastolic Blood Pressure 66 mmHg Mean Arterial Pressure, Cuff 92 mmHg General: Alert and oriented, No acute distress. Eye: Normal conjunctiva. HENT: Normocephalic, Normal hearing. Cardiovascular: No edema. Musculoskeletal Normal range of motion. Normal strength. 5/5 lower extremity strength other than right hip flexion, ADF and EHL 4/5 Positive right straight leg raise Integumentary: Warm, Dry, [place]. Neurologic: Alert, Oriented. Psychiatric: Cooperative, Appropriate mood & affect. Results Review Lumbar MRI. 11/19/2023. L3-4 disc degeneration. Moderate to severe right and moderate left foraminal stenosis. L4-5 disc generation. Extensive ligamentum flavum hypertrophy. Moderate narrowing of the central canal. L5-S1 retrolisthesis. Facet arthropathy. Ligamentum flavum hypertrophy. Impression and Plan Patient is a 73-year-old male with a past medical history significant for lumbosacral stenosis and lumbosacral neuritis. Previous transforaminal epidural steroid injection did not give him relief like the previous interlaminar epidural steroid injection did. We reviewed his MRI. Based on his MRI findings, his pain pattern, and his failure to get any long-term relief with the recent transforaminal epidural steroid injection we discussed pursuing L5-S1 epidural steroid injection?interlaminar epidural steroid injection. Procedure was discussed. Risk and benefits were discussed. Patient is agreeable. He will follow-up 2 weeks after the injection for reevaluation. Call clinic sooner if necessary (more content not included)... [facility] Comment on above: Result Comment: Elec tronically Signed By: Margareth De La Cruz PA-C\.br\Date and Time Signed: 12/16/23 10:54 EST\.br\Electronically Co-Signed By: John Cannon DO.br\Date and Time Co-Signed: 12/19/23 11:37 EST Legal Correspondence Officeo n 12-16-2023 Legal Correspondence Office [id number]#1.0 0TIFF [facility] Office/Clinic Note-Nurseon 0 12-16-2023 Office/Clinic Note-Nurse [id number]#1. 00TIFF [facility] Office/Clinic Note-Nurse [id number]#1.0 0TIFF [facility] Comment on above: Other Comment: triston earl Office/Clinic Note-Physician on 12-16-2023 Office/Clinic Note-Physician [id number]#1.0 0TIFF [facility] Patient Correspondenceon Patient Correspondence [id number]#1.0 0TIFF [facility] Patient Correspondence [id number]#1.0 0TIFF [facility] Patient Correspondence [id number]#1.0 0TIFF [facility] Patient Correspondence [id number]#1.0 0TIFF [facility] Patient History Officeon Patient History Office [id number]#1.0 0TIFF [facility] Radiology Outside Office Chief Security Officer yon 12-16-2023 Radiology Outside Office Copy [id number]#1.0 0TIFF [facility] Radiology Outside Office Copy [id number]#1. 00TIFF [facility] Follow-Upon 12-10-2023 Follow-Up [id number] Trae Pineda 1950 M Date Provider Department Center 12/10/2023 435-DIONY [facility] Second [place] No family history on file Level of Service:51474 MT OFFICE/OUTPATIENT ESTABLISHED MOD MDM 30 MIN Reason for Visit and Comments: Benign Prostatic Hypertrophy [236228897] Follow-up [147592] - Cysto follow-up with labs Normal [facility] URINALYSIS MICROSCOPIC WITH REFLEX CULTUREon 12-10-2023 CASTS IN URINE Present Abnormal None Seen [facility] Comment on above: Performed By: #### L [id number] ####[facility] ([facility])[address] [place] [address] CRYSTALS IN URINE Normal [facility] Comment on above: Performed By: #### L [id number] ####[facility] ([facility]AKER)[address] [place] [address] HYALINE CASTS /LPF IN URINE SEDIMENT BY MICROSCOPY 8 /LPF High <1 [facility] Comment on above: Performed By: #### L [id number] ####[facility] ([facility])[address] [place] [address] MUCUS (#/HPF) IN URINE SEDIMENT Occasional Normal None Seen, Occasional, Few [facility] Comment on above: Performed By: #### L [id number] ####[facility] (BEAKER)[address] [place] [address] OTHER MICROSCOPIC ELEMENTS Normal [facility] Comment on above: Performed By: #### L [id number] ####[facility] ([facility])[address] [place] [address] RBC (#/HPF) IN URINE SEDIMENT 0-2 Abnormal None Seen [facility] Comment on above: Performed By: #### L [id number] ####[facility] ([facility])[address] [place] [address] SQUAMOUS EPITHELIAL CELLS (#/HPF) IN URINE SEDIMENT Occasional Normal None Seen, Occasional [facility] Comment on above: Performed By: #### L [id number] ####[facility] ([facility])[address] [place] [address] WBC (LEUKOCYTE) (#/HPF) IN URINE SEDIMENT 0-2 Abnormal None Seen [facility] Comment on above: Performed By: #### L [id number] ####[facility] ([facility])[address] [place] [address] URINALYSIS WITH REFLEX CULTU REon 12-10-2023 BILIRUBIN, TOTAL PRESENCE IN URINE Negative Normal Negative [facility] Comment on above: Performed By: #### L [id number] #### [facility] ([facility]) [address] [place] [address] Clarity (U) Clear Normal Clear [facility] Comment on above: Performed By: #### L [id number] #### [facility] ([facility]) [address] [place] [address] Color (U) Holly Abnormal Yellow [facility] Comment on above: Performed By: #### L [id number] #### [facility] ([facility]) [address] [place] [address] Glucose (U) [Mass/Vol] Negative Normal Negative [facility] Comment on above: Performed By: #### L [id number] #### [facility] ([facility]) [address] [place] [address] HEMOGLOBIN PRESENCE IN URINE Negative Normal Negative [facility] Comment on above: Performed By: #### L [id number] #### [facility] ([facility]) [address] [place] [address] Ketones Ql (U) Negative Normal Negative [facility] Comment on above: Performed By: #### L [id number] #### [facility] ([facility]) [address] [place] [address] LEUKOCYTE ESTERASE PRESENCE IN URINE BY TEST STRIP Negative Normal Negative [facility] Comment on above: Performed By: #### L [id number] #### [facility] ([facility]) [address] [place] [address] NITRITE PRESENCE IN URINE Negative Normal Negative [facility] Comment on above: Performed By: #### L [id number] #### [facility] ([facility]ER) [address] [place] [address] pH (U) 5.0 [pH] Normal 5.0-8.0 [facility] Comment on above: Performed By: #### L [id number] #### [facility] ([facility]ER) [address] [place] [address] Protein (U) [Mass/Vol] 30 mg/dL Abnormal Negative [facility] Comment on above: Performed By: #### L [id number] #### [facility] (BEAKER) [address] [facility] [place] [address] Specific gravity (U) [Rel density] 1.026 High 1.015-1.020 [facility] Comment on above: Performed By: #### L [id number] #### [facility] ([facility]) [address] [place] [address] Orders Onlyon 12-09-2023 Orders Only [id number] Trae Pineda 1950 M Date Provider Department Center 12/09/2023 SHY ROMERO None No family history on file [facility] 36on 12-04-2023 36 Approving, but needs appt for additional refills. [facility] Insurance Correspondence Off iceon 11-13-2023 Insurance Correspondence Office [id number]#1. 00TIFF [facility] Physician Orderon 11-13-2023 Physician Order [id number]#1. 00TIFF [facility] Consent for Treatmenton 10-19 Consent for Treatment [id number]#1. 00TIFF [facility] Consultation Noteon 11-08-20 Consultation Note Patient: KATERINA [...] History of heart attack / SNOMED CT 4823759914 / Confirmed Acute angina / SNOMED CT 341364913 / Confirmed Irregular heart beat / SNOMED CT 453595273 / Confirmed HTN (hypertension) / SNOMED CT 8384370212 / Confirmed High cholesterol / SNOMED CT 96375460 / Confirmed H/O heart bypass surgery / SNOMED CT 752524380 / Confirmed Apnea, sleep / SNOMED CT 157744233 / Confirmed CPAP (continuous positive airway pressure) dependence / SNOMED CT 4640977149 / Confirmed Enlarged prostate / SNOMED CT 758729729 / Confirmed Chronic kidney disease (CKD) / SNOMED CT 7561438325 / Confirmed Diabetes / SNOMED CT 691736445 / Confirmed Carpal tunnel syndrome / SNOMED CT 60194948 / Confirmed Anemia / SNOMED CT 059103454 / Confirmed Arthritis, rheumatoid / SNOMED CT 020038967 / Confirmed Obesity / ICD-9-CM 278.00 / Possible Obesity / SNOMED CT G7570J28-2331-8E54-H09 E-[id number] / Possible Objective Vital Signs 11/08/2023 10:58 [...] right straight leg raise Integumentary: Warm, Dry, [place]. Neurologic: Alert, Oriented. Psychiatric: Cooperative, Appropriate mood [...] agreeable. Follow-up after. LEONOR score: 36% [facility] Comment on above: Result Comment: Elec tronically Signed By: Jono AGOSTO, Margareth\.br\Date and Time Signed: 11/08/23 11:19 EST Office/Clinic Note-Physician on 11-08-2023 Office/Clinic Note-Physician [id number]#1. 00TIFF [facility] Patient Correspondenceon Patient Correspondence [id number]#1. 00TIFF [facility] Patient Correspondence [id number]#1. 00TIFF [facility] Patient History Officeon Patient History Office [id number]#1. 00TIFF [facility] Refillon 11-02-2023 Refill [id number] Trae Pineda 1950 M Date Provider Department Center 11/02/2023 [facility] Second Fl No family history on file Reason for Visit and Comments: Med Refill [[id number]] Normal [facility] [place] ORon 10-28-2023 [place] IN [...] fluoroscopic equipment utilization. Electronically signed: Abhi Antonio. [facility] Comment on above: Order Comment: CYSTO RETROGRADE PYELOGRAM OPNOTEon 10-28-2023 OPNOTE -- Attestation signed by Diony Ariza MD at 10/30/2023 12:59 PM I was present for the entire procedure. CYSTOURETHROSCOPY, WITH RETROGRADE PYELOGRAM (B) Operative Note Date: 10/28/2023 Location: [facility] OR Name: Trae Pineda, : 1950, Diagnosis [...] Priority Lab ID A Bladder washing Urine NON-CLINICAL DOCUMENTATION IMPROVEMENT SPECIALIST CYTOLOGY - CELLULAR EXAM Diony Ariza MD 10/28/23801 B Urine, Catheterized Urine NON-CLINICAL DOCUMENTATION IMPROVEMENT SPECIALIST CYTOLOGY - CELLULAR EXAM Diony Ariza MD 10/28/23801 Routine Description: BLADDER URINE FOR CULTURE Staff: Terra Cotta Roofer Helper: Shena Calvillo RN; Dafne Carrillo RN Relief Terra Cotta Roofer Helper: Kristian Cuevas RN Indications: Trae Pineda is [...] in outpatient urology clinic. Diony Ariza [facility] Orders Onlyon 10-28-2023 Orders Only [id number] Trae Pineda 1950 M Date Provider Department Center 10/28/2023 [facility] [place] No family history on file [facility] POCT GLUCOSE METER UNSOLICIT ED RESULTSon 10-28-2023 Glucose [Mass/Vol] 132 mg/dL High 70-105 [facility] Comment on above: Order Comment: Waive d Testing in the ED is performed under the ED CLIA certificate #[id number]. Result Comment: [facility] [place] Performed By: #### L [id number] #### [facility] (BEAKER) [address] [place] [address] URINE CULTURE, STERILE COLLE CTIONon 10-28-2023 Bacteria identified Cx Nom (U) No growth at 48 hours Normal [facility] Comment on above: Order Comment: Pre-o p diagnosis:Benign prostatic hyperplasia with lower urinary tract symptoms, symptom details unspecified [N40.1] Performed By: #### L [id number] ####[facility] (BEAKER)[address] [place] [address] GRAM STAIN RESULT Normal [facility] Comment on above: Order Comment: Pre-o p diagnosis:Benign prostatic hyperplasia with lower urinary tract symptoms, symptom details unspecified [N40.1] Result Comment: No p olymorphonuclear leukocytes seen No organisms seen Performed By: #### L [id number] ####[facility] (BEAKER)[address] [place] [address] [id number] 10-18-2023 [id number] HOLD CIALIS X 48 HRS STOP 10/26 MEDICATIONS TO TAKE DAY OF SURGERY WITH SIP OF WATER AMLODIPNE COREG INSULIN HUMULIN 70/30 IF YOU ARE GOING HOME AFTER YOUR SURGERY OR PROCEDURE, FOR YOUR SAFETY, YOUR SURGERY WILL BE CANCELLED IF BOTH OF THE FOLLOWING ARE NOT AVAILABLE: An adult route relief driver over the age of 18, that can [...] lenses. Do not wear perfume, make-up, nail cambodian, or lotions on the day of your [...] need to make any changes, please call [phone]. Notify your surgeon if you develop any illness such as a cold, cough, fever, sore throat or vomiting between now and your surgery. Thank you for entrusting us with your care. [facility] Surgical Services Team [facility] Refillon 10-01-2023 Refill [id number] Trae Pineda 1950 M Date Provider Department Center 10/01/2023 [facility] [place] No family history on file Reason for Visit and Comments: Med Refill [[id number]] [facility] Consent for Treatmenton 08-19 Consent for Treatment [id number]#1. 00TIFF [facility] Consultation Noteon 09-06-20 Consultation Note Patient: KATERINA [...] History of heart attack / SNOMED CT 2801716235 / Confirmed Acute angina / SNOMED CT 108087021 / Confirmed Irregular heart beat / SNOMED CT 667983332 / Confirmed HTN (hypertension) / SNOMED CT 7520276338 / Confirmed High cholesterol / SNOMED CT 91336694 / Confirmed H/O heart bypass surgery / SNOMED CT 885530798 / Confirmed Apnea, sleep / SNOMED CT 812530017 / Confirmed CPAP (continuous positive airway pressure) dependence / SNOMED CT 7591290755 / Confirmed Enlarged prostate / SNOMED CT 178796271 / Confirmed Chronic kidney disease (CKD) / SNOMED CT 3543027404 / Confirmed Diabetes / SNOMED CT 255666336 / Confirmed Carpal tunnel syndrome / SNOMED CT 59522318 / Confirmed Anemia / SNOMED CT 082447633 / Confirmed Arthritis, rheumatoid / SNOMED CT 049574583 / Confirmed Obesity / ICD-9-CM 278.00 / Possible Obesity / SNOMED CT C2905K35-4332-5N37-U39 E-[id number] / Possible Objective Vital Signs 09/06/2023 11:09 [...] straight leg raise bilaterally Integumentary: Warm, Dry, [place]. Neurologic: Alert, Oriented. Psychiatric: Cooperative, Appropriate mood [...] sooner if necessary. LEONOR score: 36% [facility] Comment on above: Result Comment: Elec tronically Signed By: Margareth De La Cruz PA-C\.br\Date and Time Signed: 09/06/23 11:33 EDT\.br\Electronically Co-Signed By: John Cannon DO.dawit\Date and Time Co-Signed: 09/09/23 10:07 EDT Office/Clinic Note-Physician on 09-06-2023 Office/Clinic Note-Physician [id number]#1.0 0TIFF [facility] Orders Officeon 09-06-2023 Orders Office [id number]#1.0 0TIFF [facility] Patient Correspondenceon Patient Correspondence [id number]#1.0 0TIFF [facility] Patient Correspondence [id number]#1.0 0TIFF [facility] Patient History Officeon Patient History Office [id number]#1.0 0TIFF [facility] Follow-Upon 09-03-2023 Follow-Up [id number] Trae Pineda 1950 M [facility] Provider Department [facility] Second Fl No family history on file Level of Service:34641 MT OFFICE/OUTPATIENT ESTABLISHED MOD MDM 30-39 MIN Reason for Visit and Comments: Hypogonadism [185] - Labs / flow PVR [facility] Orders Onlyon 09-02-2023 Orders Only [id number] Trae Pineda 1950 [facility] Provider Department Center 09/02/2023 Doroteo-SHY VALADEZ TXLeora None No family history on file [facility] 36on 08-29-2023 36 This is a request fo r Dr. Ariza patient. Can you please assist with this refill? [facility] Refillon 08-29-2023 Refill [id number] Trae Pineda 1950 [facility] Provider Department Center 08/29/2023 [facility] Second Fl No family history on file Reason for Visit and Comments: Med Refill [[id number]] [facility] Consent for Procedure/Surger yon 08-06-2023 Consent for Procedure/Surgery [id number]#1. 00CD:127 [facility] Consent for Treatmenton 07-19 Consent for Treatment [id number]#1.0 0CD:127 [facility] Discharge Instructionson Discharge Instructions [id number]#1. 00CD:127 [facility] IntraOperative Documentson 0 08-06-2023 IntraOperative Documents [id number]#1. 00CD:127 [facility] Main OR Intraoperative Recor don 08-06-2023 Main OR Intraoperative Record IntraOp Document Type FTPM Summary Primary Physician: Himanshu Wright MD Finalized Date/Time: 08/06/23 14:19:56 Pt. Name: EDWINTRAEO.B./Sex: 1950 Male Med Rec #: [id number] Physician: Himanshu Wright MD Financial #: [id number] Pt. Type: P Room/Bed: / Admit/Disch: 08/06/23 13:44:28 - Institution: Case Times FTPM Entry 1 Patient Times In Room 08/06/23 14:12:00 Out Room 08/06/23 14:20:00 Procedure Times Start 08/06/23 14:15:00 Stop 08/06/23 14:19:00 Anesthesia Times Last Modified By: Naeem PEREZ, Lula Schuler 08/06/23 14:19:39 Case Attendance FTPM Entry 1 Entry 2 Entry 3 Case Attendee Himanshu Wright MD, RN, Deysi Herrera Role Performed Surgeon - Primary Terra Cotta Roofer Helper - Primary Scrub - Primary Time In 08/06/23 14:12:00 08/06/23 14:12:00 08/06/23 14:12:00 Time Out 08/06/23 14:20:00 08/06/23 14:20:00 08/06/23 14:20:00 Procedure TRANSFORAMINAL EPIDURAL TRANSFORAMINAL EPIDURAL TRANSFORAMINAL EPIDURAL STEROID STEROID STEROID INJECTIO(Bilateral) INJECTIO(Bilateral) INJECTIO(Bilateral) Comments Last Modified By: Naeem PEREZ, Lula Hartley RN, Lula Tavares RN 08/06/23 14:19:44 08/06/23 14:19:44 08/06/23 14:19:44 Entry 4 Entry 5 Case Attendee Tai PEREZ, Leanne Dennis Role Performed Scrub - Relief Hot Pond Operator Time In 08/06/23 14:12:00 08/06/23 14:12:00 Time Out 08/06/23 14:20:00 08/06/23 14:20:00 Procedure TRANSFORAMINAL EPIDURAL TRANSFORAMINAL EPIDURAL STEROID STEROID INJECTIO(Bilateral) INJECTIO(Bilateral) Comments Last Modified By: Lula Hartley RN, RN, Kayla J 08/06/23 14:19:44 08/06/23 14:19:44 Perioperative Protocols FTPM [...] X-ray Applicable) PreOp Antibiotic No Time Out Lula Hartley RN, Given Participants Deysi Casper Goldner MD, Himanshu Lopez, Tai PEREZ, Lia Merceeds Amy Time Out Complete 08/06/23 14:12:00 Outcomes [...] L5/S1 TFESI Primary Procedure Yes Primary Surgeon Adriana ARMANDO, Himanshu Lopez Start 08/06/23 14:15:00 Stop 08/06/23 14:19:00 Anesthesia [...] and tissue Entry 1 Skin Integrity Intact, [place], Warm, and Skin Abnormality No Dry Outcomes [...] Arm Posi (more content not included)... [facility] Main OR Preoperative Recordo n 08-06-2023 Main OR Preoperative Record Holding Area Document Type FTPM Summary Primary Physician: Himanshu Wright MD Finalized Date/Time: 08/06/23 14:02:18 Pt. Name: TRAE PINEDA/Sex: 1950 Male Med Rec #: [id number] Physician: Himanshu Wright MD Financial #: [id number] Pt. Type: P Room/Bed: / Admit/Disch: 08/06/23 [...] Complaints of Pain: Yes Comment: Pain Comment: 06/27 to lower back Operative Site Yes Marking: [...] By: Isa Romero RN 08/06/23 14:02 [facility] Operative Reporton 3 Operative Report Patient: KATERINA [...] Pressure 70 mmHg SpO2 97 % . [facility] Comment on above: Result Comment: Elec tronically Signed By: Adriana ARMANDO, Himanshu Lopez\.br\Date and Time Signed: 08/06/23 14:20 EDT 36on 07-30-2023 36 Approving, but needs appt for additional refills. [facility] Refillon 07-29-2023 Refill [id number] Trae iPneda 1950 M Date Provider Department Center 07/29/2023 [facility] [place] [place] No family history on file Reason for Visit and Comments: Med Refill [[id number]] [facility] Insurance Correspondence Off ice07-09-2023 Insurance Correspondence Office [id number]#1. 00CD:127 [facility] Patient Correspondenceon Patient Correspondence [id number]#1. 00CD:127 [facility] Consent for Treatmenton 06-18 Consent for Treatment [id number]#1. 00CD:127 [facility] Consultation Noteon 07-02-20 Consultation Note Patient: KATERINA [...] History of heart attack / SNOMED CT 9535250653 / Confirmed Acute angina / SNOMED CT 467504909 / Confirmed Irregular heart beat / SNOMED CT 958983361 / Confirmed HTN (hypertension) / SNOMED CT 0103369054 / Confirmed High cholesterol / SNOMED CT 40258831 / Confirmed H/O heart bypass surgery / SNOMED CT 727801346 / Confirmed Apnea, sleep / SNOMED CT 401333080 / Confirmed CPAP (continuous positive airway pressure) dependence / SNOMED CT 8902625709 / Confirmed Enlarged prostate / SNOMED CT 935449607 / Confirmed Chronic kidney disease (CKD) / SNOMED CT 9620156844 / Confirmed Diabetes / SNOMED CT 864583684 / Confirmed Carpal tunnel syndrome / SNOMED CT 32340983 / Confirmed Anemia / SNOMED CT 509250471 / Confirmed Arthritis, rheumatoid / SNOMED CT 079448809 / Confirmed Obesity / ICD-9-CM 278.00 / Possible Obesity / SNOMED CT [id number] / Possible Objective Vital Signs 07/02/2023 14:17 [...] straight leg raise bilaterally Integumentary: Warm, Dry, [place]. Neurologic: Alert, Oriented. Psychiatric: Cooperative, Appropriate mood [...] Oscar Craig MD Transcribed by: DENITA Technologist: GONZÁLEZ RAD REPORT This document has an image Result type: XR Spine Lumbosacral Minimum 4 Views Result date: November 08, 2022 16:26 EST Result status: Auth (Verified) Result title: XR Spine Lumbosacral Minimum 4 Views Performed by: Oscar Craig MD on November 08, 2022 20:04 EST Verified b (more content not included)... Normal [facility] Comment on above: Result Comment: Elec tronically Signed By: Margareth De La Cruz PA-C\.br\Date and Time Signed: 07/02/23 14:39 EDT\.br\Electronically Co-Signed By: Tutu Guzman MD\.br\Date and Time Co-Signed: 07/04/23 20:24 EDT Office/Clinic Note-Physician on 07-02-2023 Office/Clinic Note-Physician [id number]#1.0 0CD:127 Normal [facility] Patient Correspondenceon Patient Correspondence [id number]#1.0 0CD:127 Normal [facility] Patient Correspondence [id number]#1.0 0CD:127 Normal [facility] Patient History Officeon Patient History Office [id number]#1.0 0CD:127 [facility] 29on 06-04-2023 29 Addended by: HARPREET WATSON on: 06/04/2023 11:25 AM Modules accepted: Orders Normal [facility] Office Visiton 06-04-2023 Follow-up visit [id number] Trae Pineda Lorenzo 1950 M [facility] Provider Department Center 06/04/2023 [facility] No family history on file Level of Service:37734 MT OFFICE/OUTPATIENT ESTABLISHED MOD MDM 30-39 MIN Reason for Visit and Comments: Follow-up [633263] - 6 month follow up Normal [facility] 36on 05-31-2023 36 No bacterial or candidal growth in urine. Will prescribed Bactrim DS BID x2 weeks and daily x 4 weeks for suspected prostatitis. BMP ordered to recheck potassium in a couple weeks. Normal [facility] Telephoneon 05-31-2023 Telephone [id number] Trae Pineda Lorenzo 1950 M [facility] Provider Department [place] 05/31/2023 3561-HARPREET WATSON TXP None No family history on file Normal [facility] CBC WITH AUTO DIFFERENTIALon 05-28-2023 Basophils (Bld) [#/Vol] 0.11 10*3/uL Normal 0.00-0.20 [facility] Comment on above: Performed By: #### L [id number] #### [facility] ([facility]) [address] [place] [address] Basophils/100 WBC (Bld) 1.1 % High 0.0-1.0 [facility] Comment on above: Performed By: #### L [id number] #### [facility] ([facility]) [address] [place] [address] Eosinophils (Bld) [#/Vol] 0.35 10*3/uL Normal 0.00-0.50 [facility] Comment on above: Performed By: #### L [id number] #### [facility] ([facility]) [address] [place] [address] Eosinophils/100 WBC (Bld) 3.5 % Normal 0.0-6.0 [facility] Comment on above: Performed By: #### L [id number] #### [facility] [address] [place] [address] Erythrocyte distribution width (RBC) [Ratio] 14.6 % Normal 11.5-15.0 [facility] Comment on above: Performed By: #### L [id number] #### [facility] ([facility]) [address] [place] [address] ERYTHROCYTE MEAN CORPUSCULAR HEMOGLOBIN CONCENTRATION (G/DL) BY AUTOMATED 32.1 g/dL Normal 32.0-35.0 [facility] Comment on above: Performed By: #### L [id number] #### [facility] ([facility]) [address] [place] [address] Hematocrit (Bld) [Volume fraction] 44.9 % Normal 39.0-55.0 [facility] Comment on above: Performed By: #### L [id number] #### [facility] ([facility]) [address] [place] [address] Hemoglobin (Bld) [Mass/Vol] 14.4 g/dL Normal 13.0-17.0 [facility] Comment on above: Performed By: #### L [id number] #### [facility] ([facility]) [address] [place] [address] Immature granulocytes (Bld) [#/Vol] 0.05 10*3/uL Normal 0.00-0.20 [facility] Comment on above: Performed By: #### L [id number] #### [facility] ([facility]) [address] [place] [address] Immature granulocytes/100 WBC (Bld) 0.5 % Normal 0.0-1.0 [facility] Comment on above: Performed By: #### L [id number] #### [facility] ([facility]) [address] [place] [address] Lymphocytes (Bld) [#/Vol] 2.26 10*3/uL Normal 1.20-4.00 [facility] Comment on above: Performed By: #### L [id number] #### [facility] ([facility]) [address] [place] [address] Lymphocytes/100 WBC (Bld) 22.8 % Normal 20.0-45.0 [facility] Comment on above: Performed By: #### L [id number] #### [facility] ([facility]) [address] [place] [address] MCH (RBC) [Entitic mass] 29.1 pg Normal 27.0-33.0 [facility] Comment on above: Performed By: #### L [id number] #### [facility] ([facility]) [address] [place] [address] MCV (RBC) [Entitic vol] 90.7 fL Normal 82.0-98.0 [facility] Comment on above: Performed By: #### L [id number] #### [facility] ([facility]) [address] [place] [address] Monocytes (Bld) [#/Vol] 0.92 10*3/uL Normal 0.10-1.00 [facility] Comment on above: Performed By: #### L [id number] #### [facility] ([facility]) [address] [place] [address] Monocytes/100 WBC (Bld) 9.3 % Normal 5.0-12.0 [facility] Comment on above: Performed By: #### L [id number] #### [facility] ([facility]) [address] [place] [address] Neutrophils (Bld) [#/Vol] 6.22 10*3/uL Normal 1.60-7.60 [facility] Comment on above: Performed By: #### L [id number] #### [facility] ([facility]) [address] [place] [address] Neutrophils/100 WBC (Bld) 62.8 % Normal 40.0-72.0 [facility] Comment on above: Performed By: #### L [id number] #### [facility] ([facility]) [address] [place] [address] NRBC (PER 100 WBCS) BY AUTOMATED COUNT 0.0 % Normal 0 [facility] Comment on above: Performed By: #### L [id number] #### [facility] ([facility]) [address] [place] [address] PLATELETS (10*3/UL) IN BLOOD AUTOMATED COUNT 198 10*3/uL Normal 150-400 [facility] Comment on above: Performed By: #### L [id number] #### [facility] ([facility]) [address] [place] [address] RBC (Bld) [#/Vol] 4.95 10*6/uL Normal 4.20-5.70 [facility] Comment on above: Performed By: #### L [id number] #### [facility] ([facility]) [address] [place] [address] WBC (Bld) [#/Vol] 9.91 10*3/uL Normal 4.00-10.60 [facility] Comment on above: Performed By: #### L [id number] #### [facility] ([facility]) [address] [place] [address] Follow-Upon 05-28-2023 Follow-Up [id number] Trae Pineda 1950 M [facility] Provider Department Center 05/28/2023 Elena1HARPREET [facility] URO Second Fl No family history on file Level of Service:69074 MT OFFICE/OUTPATIENT ESTABLISHED MOD MDM 30-39 MIN Reason for Visit and Comments: Benign Prostatic Hypertrophy [919844411] Hypogonadism [185] - 3 mo follow-up with labs, pt had labs shortly after last appt Normal [facility] Labon 05-28-2023 Lab [id number] Trae Pineda 1950 M Date Provider Department Center 05/28/2023 [id number] C No family history on file Normal [facility] PSA, SCREENINGon 05-28-2023 PROSTATE SPECIFIC AG (NG/ML) IN SER/PLAS 2.1 ng/mL Normal 0.4-4 [facility] Comment on above: Performed By: #### L [id number] #### [facility] ([facility]) [address] [place] [address] TESTOSTERONEon 05-28-2023 TESTOSTERONE (NG/DL) IN SER/PLAS 510 ng/dL Normal 220-1000 [facility] Comment on above: Result Comment: Test Performed by [facility] [place] [address] - Released 05/29/2023 04:45 Performed By: #### L [id number] #### [facility] ([facility]) [address] [place] [address] URINALYSIS WITH MICROSCOPICo n 05-28-2023 BILIRUBIN, TOTAL PRESENCE IN URINE Negative Normal Negative [facility] Comment on above: Performed By: #### L [id number] #### [facility] ([facility]) [address] [place] [address] CASTS IN URINE Present Abnormal None Seen [facility] Comment on above: Performed By: #### L [id number] #### [facility] ([facility]) [address] [place] [address] Clarity (U) Clear Normal Clear [facility] Comment on above: Performed By: #### L [id number] #### [facility] ([facility]) [address] [place] [address] Color (U) Holly Abnormal Yellow [facility] Comment on above: Performed By: #### L [id number] #### [facility] ([facility]) [address] [place] [address] Glucose (U) [Mass/Vol] Negative Normal Negative [facility] Comment on above: Performed By: #### L [id number] #### [facility] ([facility]) [address] [place] [address] HEMOGLOBIN PRESENCE IN URINE Negative Normal Negative [facility] Comment on above: Performed By: #### L [id number] #### [facility] ([facility]) [address] [place] [address] HYALINE CASTS /LPF IN URINE SEDIMENT BY MICROSCOPY 7 /LPF High <1 [facility] Comment on above: Performed By: #### L [id number] #### [facility] ([facility]) [address] [place] [address] Ketones Ql (U) Negative Normal Negative [facility] Comment on above: Performed By: #### L [id number] #### [facility] ([facility]) [address] [place] [address] LEUKOCYTE ESTERASE PRESENCE IN URINE BY TEST STRIP Negative Normal Negative [facility] Comment on above: Performed By: #### L [id number] #### [facility] ([facility]) [address] [place] [address] MUCUS (#/HPF) IN URINE SEDIMENT Occasional Normal None Seen, Occasional, Few [facility] Comment on above: Performed By: #### L [id number] #### [facility] ([facility]) [address] [place] [address] NITRITE PRESENCE IN URINE Negative Normal Negative [facility] Comment on above: Performed By: #### L [id number] #### [facility] ([facility]) [address] [place] [address] pH (U) 5.0 [pH] Normal 5.0-8.0 [facility] Comment on above: Performed By: #### L [id number] #### [facility] ([facility]) [address] [place] [address] Protein (U) [Mass/Vol] 30 mg/dL Abnormal Negative [facility] Comment on above: Performed By: #### L [id number] #### [facility] ([facility]) [address] [place] [address] RBC (#/HPF) IN URINE SEDIMENT None Seen Normal None Seen [facility] Comment on above: Performed By: #### L [id number] #### [facility] ([facility]) [address] [place] [address] Specific gravity (U) [Rel density] 1.024 High 1.015-1.020 [facility] Comment on above: Performed By: #### L [id number] #### [facility] ([facility]) [address] [place] [address] SQUAMOUS EPITHELIAL CELLS (#/HPF) IN URINE SEDIMENT Moderate Abnormal None Seen, Occasional [facility] Comment on above: Performed By: #### L [id number] #### [facility] ([facility]) [address] [place] [address] WBC (LEUKOCYTE) (#/HPF) IN URINE SEDIMENT 0-2 Abnormal None Seen [facility] Comment on above: Performed By: #### L [id number] #### [facility] ([facility]) [address] [place] [address] URINE CULTURE, ROUTINEon Bacteria identified Cx Nom (U) No growth at 48 hours Normal [facility] Comment on above: Performed By: #### L [id number] #### [facility] ([facility]) [address] [place] [address] CT CHEST WO CONon 03-07-2023 CT CHEST [...] by: SLOAN SOSA Date: 2023-03-07 10:24 Normal [facility] Letter (Out)on 02-27-2023 Letter (Out) [id number] Trae Pineda 1950 M Date Provider Department Center 02/27/2023 DIONY [facility] U[facility] Second Fl No family history on file Normal [facility] CBC WITH AUTO DIFFERENTIALon 02-26-2023 Basophils (Bld) [#/Vol] 0.11 10*3/uL Normal 0.00-0.20 [facility] Comment on above: Performed By: #### L [id number] #### [facility] ([facility]) [address] [place] [address] Basophils/100 WBC (Bld) 1.3 % High 0.0-1.0 [facility] Comment on above: Performed By: #### L [id number] #### [facility] ([facility]) [address] [place] [address] Eosinophils (Bld) [#/Vol] 0.22 10*3/uL Normal 0.00-0.50 [facility] Comment on above: Performed By: #### L [id number] #### [facility] ([facility]) [address] [place] [address] Eosinophils/100 WBC (Bld) 2.6 % Normal 0.0-6.0 [facility] Comment on above: Performed By: #### L [id number] #### [facility] [address] [place] [address] Erythrocyte distribution width (RBC) [Ratio] 13.9 % Normal 11.5-15.0 [facility] Comment on above: Performed By: #### L [id number] #### [facility] ([facility]) [address] [place] [address] ERYTHROCYTE MEAN CORPUSCULAR HEMOGLOBIN CONCENTRATION (G/DL) BY AUTOMATED 32.4 g/dL Normal 32.0-35.0 [facility] Comment on above: Performed By: #### L [id number] #### [facility] ([facility]) [address] [place] [address] Hematocrit (Bld) [Volume fraction] 44.1 % Normal 39.0-55.0 [facility] Comment on above: Performed By: #### L [id number] #### [facility] ([facility]) [address] [place] [address] Hemoglobin (Bld) [Mass/Vol] 14.3 g/dL Normal 13.0-17.0 [facility] Comment on above: Performed By: #### L [id number] #### [facility] [address] [place] [address] Immature granulocytes (Bld) [#/Vol] 0.04 10*3/uL Normal 0.00-0.20 [facility] Comment on above: Performed By: #### L [id number] #### [facility] ([facility]) [address] [place] [address] Immature granulocytes/100 WBC (Bld) 0.5 % Normal 0.0-1.0 [facility] Comment on above: Performed By: #### L [id number] #### [facility] ([facility]) [address] [place] [address] Lymphocytes (Bld) [#/Vol] 1.90 10*3/uL Normal 1.20-4.00 [facility] Comment on above: Performed By: #### L [id number] #### [facility] ([facility]) [address] [place] [address] Lymphocytes/100 WBC (Bld) 22.1 % Normal 20.0-45.0 [facility] Comment on above: Performed By: #### L [id number] #### [facility] ([facility]) [address] [place] [address] MCH (RBC) [Entitic mass] 29.8 pg Normal 27.0-33.0 [facility] Comment on above: Performed By: #### L [id number] #### [facility] ([facility]) [address] [place] [address] MCV (RBC) [Entitic vol] 91.9 fL Normal 82.0-98.0 [facility] Comment on above: Performed By: #### L [id number] #### [facility] ([facility]) [address] [place] [address] Monocytes (Bld) [#/Vol] 0.77 10*3/uL Normal 0.10-1.00 [facility] Comment on above: Performed By: #### L [id number] #### [facility] ([facility]) [address] [place] [address] Monocytes/100 WBC (Bld) 9.0 % Normal 5.0-12.0 [facility] Comment on above: Performed By: #### L [id number] #### [facility] ([facility]) [address] [place] [address] Neutrophils (Bld) [#/Vol] 5.55 10*3/uL Normal 1.60-7.60 [facility] Comment on above: Performed By: #### L [id number] #### [facility] ([facility]) [address] [place] [address] Neutrophils/100 WBC (Bld) 64.5 % Normal 40.0-72.0 [facility] Comment on above: Performed By: #### L [id number] #### [facility] ([facility]) [address] [place] [address] NRBC (PER 100 WBCS) BY AUTOMATED COUNT 0.0 % Normal 0.0-0.0 [facility] Comment on above: Performed By: #### L [id number] #### [facility] ([facility]) [address] [place] [address] PLATELETS (10*3/UL) IN BLOOD AUTOMATED COUNT 215 10*3/uL Normal 150-400 [facility] Comment on above: Performed By: #### L [id number] #### [facility] ([facility]) [address] [place] [address] RBC (Bld) [#/Vol] 4.80 10*6/uL Normal 4.20-5.70 [facility] Comment on above: Performed By: #### L [id number] #### [facility] ([facility]) [address] [place] [address] WBC (Bld) [#/Vol] 8.59 10*3/uL Normal 4.00-10.60 [facility] Comment on above: Performed By: #### L [id number] #### [facility] ([facility]) [address] [place] [address] COMPREHENSIVE METABOLIC PANE Cortes 02-26-2023 Albumin [Mass/Vol] 4.2 g/dL Normal 3.5-5.7 [facility] Comment on above: Performed By: #### L [id number] #### [facility] ([facility]) [address] [place] [address] ALP [Catalytic activity/Vol] 63 U/L Normal 34-104 [facility] Comment on above: Performed By: #### L [id number] #### [facility] ([facility]) [address] [place] [address] ALT [Catalytic activity/Vol] 14 U/L Normal 7-52 [facility] Comment on above: Performed By: #### L [id number] #### [facility] ([facility]) [address] [place] [address] Anion gap [Moles/Vol] 12 mmol/L Normal 7-20 [facility] Comment on above: Performed By: #### L [id number] #### [facility] ([facility]) [address] [place] [address] AST [Catalytic activity/Vol] 14 U/L Normal 13-39 [facility] Comment on above: Performed By: #### L [id number] #### [facility] ([facility]) [address] [place] [address] Bilirubin [Mass/Vol] 0.7 mg/dL Normal 0.3-1.0 [facility] Comment on above: Performed By: #### L [id number] #### [facility] ([facility]) [address] [place] [address] Calcium [Mass/Vol] 10.1 mg/dL Normal 8.6-10.3 [facility] Comment on above: Performed By: #### L [id number] #### [facility] ([facility]) [address] [place] [address] Chloride [Moles/Vol] 108 mmol/L High 98-107 [facility] Comment on above: Performed By: #### L [id number] #### [facility] ([facility]) [address] [place] [address] CO2 [Moles/Vol] 28 mmol/L Normal 21-31 [facility] Comment on above: Performed By: #### L [id number] #### [facility] ([facility]) [address] [place] [address] Creatinine [Mass/Vol] 1.48 mg/dL High 0.70-1.30 [facility] Comment on above: Performed By: #### L [id number] #### [facility] ([facility]) [address] [place] [address] GLOMERULAR FILTRATION RATE ML/MIN/1.73 SQ M.PREDICTED 49.3 mL/min/1.73m*2 Low >60.0 [facility] Comment on above: Result Comment: [facility]???s estimated glomerular filtration rate (eGFR) will [...] individuals. Performed By: #### L [id number] #### [facility] ([facility]) [address] [place] [address] Glucose [Mass/Vol] 107 mg/dL High 70-100 [facility] Comment on above: Performed By: #### L [id number] #### [facility] ([facility]) [address] [place] [address] Potassium [Moles/Vol] 4.8 mmol/L Normal 3.5-5.1 [facility] Comment on above: Performed By: #### L [id number] #### [facility] ([facility]) [address] [place] [address] Protein [Mass/Vol] 6.6 g/dL Normal 6.0-8.3 [facility] Comment on above: Performed By: #### L [id number] #### [facility] ([facility]) [address] [place] [address] Sodium [Moles/Vol] 143 mmol/L Normal 136-145 [facility] Comment on above: Performed By: #### L [id number] #### [facility] ([facility]) [address] [place] [address] Urea nitrogen [Mass/Vol] 30 mg/dL High 7-25 [facility] Comment on above: Performed By: #### L [id number] #### [facility] ([facility]) [address] [place] [address] UREA NITROGEN/CREATININE (MASS RATIO) IN SER/PLAS 20.3 Normal [facility] Comment on above: Performed By: #### L [id number] #### [facility] ([facility]) [address] [place] [address] ESTRADIOLon 02-26-2023 ESTRADIOL (PG/ML) IN SER/PLAS 21.3 pg/mL Low 27-52 [facility] Comment on above: Result Comment: Test Performed by [facility] [address] [place], [place] [id number] - Released 02/26/2023 18:40 Performed By: #### L [id number] #### [email or web address] [address] [place] [address] FOLLICLE STIMULATING HORMONE on 02-26-2023 FOLLITROPIN (IU/L) IN SER/PLAS 0.5 IU/L Low 1-19 [facility] Comment on above: Result Comment: [facility]SH Normal Ranges for females Normally menstruating females: Follicular phase 4-13 mIU/ml Mid-Cycle peak 5-22 mIU/ml Luteal phase 2-13 mIU/ml Postmenopausal females 20-138 mIU/ml Performed By: #### L [id number] #### [facility] ([facility]ER) [address] [place] [address] Follow-Upon 02-26-2023 Follow-Up [id number] Trae Pineda 1950 M Date Provider Department Center 02/26/2023 435-D[facility]Y [facility] URO Second Fl No family history on file Level of Service:86090 MT OFFICE/OUTPATIENT ESTABLISHED MOD MDM 30-39 MIN Reason for Visit and Comments: Follow-up [[id number]] - Pt here for follow up, has labs - needs flow,pvr Normal [facility] LUTEINIZING HORMONEon 2022 LUTROPIN (MIU/ML) IN SER/PLAS <0.2 Low 2-12 [facility] Comment on above: Result Comment: LH N ormal Ranges for females Normally menstruating females: Follicular phase 1-18 mIU/ml Mid-Cycle peak 24-105 mIU/ml Luteal phase 0.5-20 mIU/ml Postmenopausal females 15-62 mIU/ml LH Normal Ranges for Males 2-12 mIU/ml Performed By: #### L [id number] #### [facility] ([facility]) [address] [place] [address] Labon 02-26-2023 Lab [id number] Trae Pineda [place] 1950 M Date Provider Department Center 02/26/2023 2245[facility] OPD [facility] C No family history on file Normal [facility] PROLACTINon 02-26-2023 PROLACTIN (NG/ML) IN SER/PLAS 4.56 ng/mL Normal 1.61-18.77 [facility] Comment on above: Performed By: #### L [id number] #### [facility] ([facility]) [address] [place] [address] PSA, SCREENINGon 02-26-2023 PROSTATE SPECIFIC AG (NG/ML) IN SER/PLAS 2.0 ng/mL Normal 0.4-4 [facility] Comment on above: Performed By: #### L [id number] ####[facility] ([facility])[address] [place] [address] TESTOSTERONEon 02-26-2023 TESTOSTERONE (NG/DL) IN SER/PLAS 359 ng/dL Normal 220-1000 [facility] Comment on above: Result Comment: Test Performed by [facility] [address] [place] [address] - Released 02/26/2023 19:45 Performed By: #### L [id number] #### [facility] ([facility]) [address] [place] [address] TESTOSTERONE, FREE AND TOTAL , AND SHBGon 02-26-2023 SEX HORMONE BINDING GLOBULIN (NMOL/L) IN SER/PLAS 28 nmol/L Normal 11-80 [facility] Comment on above: Performed By: #### L [id number] #### [facility] [address] [place] [address] TESTOSTERONE (NG/DL) IN SER/PLAS 360 ng/dL Normal 220-1000 [facility] Comment on above: Performed By: #### L [id number] #### [facility] [address] [place] [address] TESTOSTERONE FREE (NG/ML) IN SER/PLAS 79.3 pg/mL Normal 47-244 [facility] Comment on above: Result Comment: The concentration of free testosterone is derived from a mathematical expression based on the constant for the binding of testosterone to albumin and/or sex hormone binding globulin. Test Performed by [facility] [address] [place] [address] - Released 02/26/2023 18:46 Performed By: #### L [id number] #### [facility] [address] [place] [address] TESTOSTERONE, FREE,DIRECT, T OTALon 01-24-2023 Free Testosterone(Direct) 10.1 pg/mL Normal 6.6-18.1 [facility] Comment on above: Result Comment: Perf ormed at: BN Performed By: #### L JENNYFER #### [facility] [address] [place] [address] Dr. Zan Escalante Testosterone [Mass/Vol] 622 ng/dL Normal 264-916 [facility] Comment on above: Result Comment: Adul t male reference interval is based on a population of healthy nonobese males (BMI <30) between 19 and 39 years old. Nate et.al. JCEM 2017,102;2900-8750. PMID: [id number]. Performed at: CB Performed By: #### L JENNYFER #### [facility] [id number] Zan Escalante ESTRADIOLon 01-19-2023 Estradiol 21.4 pg/mL Normal 7.6-42.6 [facility] Comment on above: Result Comment: Anastacio ventura ECLIA methodology Performed By: #### L JENNYFER #### [facility] [id number] Zan Escalante FSHon 01-19-2023 FSH 0.3 mIU/mL Critically low 1.5-12.4 [facility] Comment on above: Performed By: #### L BCFSH #### [facility] [address] [address] [address] Zan Escalante LUTEINIZING HORMONE (LH)on 0 01-19-2023 LH <0.3 Critically low 1.7-8.6 [facility] Comment on above: Performed By: #### L BCLH #### [facility] [address] [address] [address] Zan Escalante PROLACTINon 01-19-2023 Prolactin 6.5 ng/mL Normal 4.0-15.2 [facility] Comment on above: Performed By: #### L BCLH #### [facility] [address] [place] [address] Dr. Zan Escalante SEX HORMONE-BINDING GLOBULIN on 01-19-2023 Sex Horm Binding Glob, Serum 28.3 nmol/L Normal 19.3-76.4 [facility] Comment on above: Performed By: #### S EXHBG #### [facility] [address] [address] [address] Zan Escalante CHEMISTRYOrdered By: Lab ROP User on 12-12-2022 Glucose [Mass/Vol] 157 mg/dL High 55 - 99 mg/dL FTM C POC Subsection POC Device SN [id number] Invalid Interpretation Code [facility] [place]section POC User ID [id number] Invalid Interpretation Code [facility] Subsection POC Username THOMAS FARR Invalid Interpretation Code [facility] Subsection TESTOSTERONE, FREE,DIRECT, T OTALon 09-01-2022 Free Testosterone(Direct) 4.2 pg/mL Critically low 6.6-18.1 [facility] Comment on above: Result Comment: Perf ormed at: BN Performed By: #### T ESTFRD #### [facility] [address] [place] [address] Dr. Zan Escalante Testosterone [Mass/Vol] 171 ng/dL Critically low 264-916 [facility] Comment on above: Result Comment: Adul t male reference interval is based on a population of healthy nonobese males (BMI <30) between 19 and 39 years old. jeancarlos Sullivan.al. JCEM 2017,102;5651-7219. PMID: [id number]. Performed at: CB Performed By: #### T ESTFRD #### [facility] [address] [place] [address] Dr. Zan Escalante ESTRADIOLon 08-30-2022 Estradiol 28.9 pg/mL Normal 7.6-42.6 [facility] Comment on above: Result Comment: Roch lorenzo ECLIA methodology Performed By: #### L BCLH #### [facility] [address] [place] [address] Dr. Zan Escalante FSHon 08-30-2022 FSH 3.0 mIU/mL Normal 1.5-12.4 [facility] Comment on above: Performed By: #### L BCFSH #### [facility] [address] [place] [address] Dr. Zan Escalante LUTEINIZING HORMONE (LH)on LH 5.7 mIU/mL Normal 1.7-8.6 [facility] Comment on above: Performed By: #### L BCLH #### [facility] [address] [place] [address] Dr. Zan Escalante PROLACTINon 08-30-2022 Prolactin 8.6 ng/mL Normal 4.0-15.2 [facility] Comment on above: Performed By: #### L BCLH #### [facility] [address] [place] [address] Dr. Zan Escalante SEX HORMONE-BINDING GLOBULIN on 08-30-2022 Sex Horm Binding Glob, Serum 22.7 nmol/L Normal 19.3-76.4 [facility] Comment on above: Performed By: #### S EXHBG #### [facility] [address] [place] [address] Dr. Zan Escalante ECHOCARDIO M/2D COMPLETEon 0 07-31-2022 ECHOCARDIO M/2D COMPLETE Patient: TRAE PINEDA Exam Date: 07/31/2022 : 1950 Gender:M Ordering : DR MOI MOSS M.D. Admission #: [id number] Family : Order #: [id number] CLICK HERE TO VIEW EXAM ECHOCARDIOGRAM REPORT [...] 0.71 m/s Right Atrium Dictated by: Moi Moss M.D. on 07/31/2022 at 18:05 Approved by: Moi Moss M.D. on 07/31/2022 at 18:09 Normal [facility] *URINE CATH CULTUREon 2021 *URINE CATH CULTURE [...] <=0.5 Susceptible VANCOMYCIN (VA) 1 Susceptible Normal [facility] Comment on above: Order Comment: 1. Ur ine Performed By: #### 3 [id number] #### [facility] [address] Operative Reporton 2 Operative Report MR#: [id number] [facility] Pt. Name: Trae Pineda Room #: 0C Discharge Date: Birthdate: 1950 OPERATIVE REPORT DATE OF SURGERY: 07/02/2022 SURGEON: Diony Ariza MD JOY OPERATOR HELPER: Kolby ARMANDO PGY3 PREOPERATIVE DIAGNOSIS: Benign prostatic [...] the room agreed. A well lubricated rigid 22-Gibraltarian cystoscopic sheath with a 30-degree lens was [...] bleeding due to scope trauma so 18 czech leggett was inserted. Urine was with significant [...] Jarrett MD Date Trans: 07/02/2022 03:30 P/ TATIANA:[id number] cc: Cristobal Kearns D.O. [address] [place] [address] A [facility] [id number] [facility] POC GLUCOSE LABon 07-02-2022 Glucose [Mass/Vol] 130 mg/dL High 70-100 [facility] Comment on above: Performed By: #### 8 [id number] #### [facility] [address] [place] [address], [facility] MICROALBUMIN URINEon 022 Albumin, Urine 42.2 ug/mL Normal Not Estab. The [facility] Comment on above: Performed By: #### L BCL #### [facility] [address] [place] [address] Dr. Zan Escalante CBC AUTO DIFFon 06-29-2022 BASO # 0.1 103/ul Normal 0.0-0.1 [facility] Comment on above: Performed By: #### C BC #### [facility] [address] [place] [address] Dr. Zan Escalante Basophils/100 WBC (Bld) 1.1 % Normal 0.2-2.0 [facility] Comment on above: Performed By: #### C BC #### [facility] [address] [place] [address] Dr. Zan Escalante EO # 0.6 103/ul Normal 0.0-0.7 [facility] Comment on above: Performed By: #### C BC #### [facility] [address] [place] [address] Dr. Zan Escalante Eosinophils/100 WBC (Bld) 7.0 % Normal 0.9-7.0 [facility] Comment on above: Performed By: #### C BC #### [facility] [address] [place] [address] Dr. Zan Escalante Erythrocyte distribution width (RBC) [Ratio] 13.8 % Normal 11.0-15.0 [facility] Comment on above: Performed By: #### C BC #### [facility] [address] [place] [address] Dr. Zan Escalante Hematocrit (Bld) [Volume fraction] 40.9 % Critically low 42.0-54.0 [facility] Comment on above: Performed By: #### C BC #### [facility] [address] [address] [address] Zan Escalante Hemoglobin (Bld) [Mass/Vol] 13.1 g/dL Critically low 14.0-18.0 [facility] Comment on above: Performed By: #### C BC #### [facility] [address] [address] [address] Zan Escalante IG # 0.04 10e3/ul Critically high 0.00-0.03 [facility] Comment on above: Performed By: #### C BC #### [facility] [address] [place] [address] Dr. Zan Escalante IG % 0.5 % Normal 0.0-0.5 [facility] Comment on above: Performed By: #### C BC #### [facility] [address] [place] [address] Dr. Zan Escalante LYMPH # 3.0 103/ul Normal 1.2-3.8 [facility] Comment on above: Performed By: #### C BC #### [facility] [address] [place] [address] Dr. Zan Escalante Lymphocytes/100 WBC (Bld) 33.4 % Normal 20.5-60.0 [facility] Comment on above: Performed By: #### C BC #### [facility] [address] [place] [address] Dr. Zan Escalante MANUAL DIFF REQ NO Normal [facility] [place] [facility] Comment on above: Performed By: #### C BC #### [facility] [address] [place] [address] Dr. Zan Escalante MCH (RBC) [Entitic mass] 29.6 pg Normal 25.9-34.0 [facility] Comment on above: Performed By: #### C BC #### [facility] [address] [place] [address] Dr. Zan Escalante MCHC (RBC) [Mass/Vol] 32.0 g/dL Normal 29.9-35.2 [facility] Comment on above: Performed By: #### C BC #### [facility] [address] [place], [place] [id number] Dr. Zan Escalante MCV (RBC) [Entitic vol] 92.3 fL Normal 80.0-94.0 [facility] Comment on above: Performed By: #### C BC #### [facility] [address] [place] [address] Dr. Zan Escalante MONO # 0.8 103/ul Normal 0.3-0.8 [facility] Comment on above: Performed By: #### C BC #### [facility] [address] [place] [address] Dr. Zan Escalante Monocytes/100 WBC (Bld) 9.4 % Normal 1.7-12.0 [facility] Comment on above: Performed By: #### C BC #### [facility] [address] [place] [address] Dr. Zan Escalante NEUT # 4.3 103/ul Normal 1.4-6.5 [facility] Comment on above: Performed By: #### C BC #### [facility] [address] [place] [address] Dr. Zan Escalante Neutrophils/100 WBC (Bld) 48.6 % Normal 43.0-75.0 [facility] Comment on above: Performed By: #### C BC #### [facility] [address] [place] [address] Dr. Zan Escalante Platelet mean volume (Bld) [Entitic vol] 11.2 fL Normal 9.5-13.5 [facility] Comment on above: Performed By: #### C BC #### [facility] [address] [place] [address] Dr. Zan Escalante PLT 185 103/ul Normal 150-450 [facility] Comment on above: Performed By: #### C BC #### [facility] [address] [place] [address] Dr. Zan Escalante RBC 4.43 106/ul Critically low 4.70-6.10 [facility] Comment on above: Performed By: #### C BC #### [facility] [address] [place] [address] Dr. Zan Escalante WBC 8.9 103/ul Normal 4.0-11.0 [facility] Comment on above: Performed By: #### C BC #### [facility] [address] [place] [address] Dr. Zan Escalante Covid-19 PCR ([facility])on 06-18 SARS-CoV-2 (COVID-19) RNA KRISTEL+probe Ql (Unsp spec) Not detected Normal NOT DETECTED [facility] Comment on above: Result Comment: This test is not yet approved or cleared by the [place] FDA. When there are no FDA-approved or cleared tests available, and other criteria are met, FDA can make tests available under an emergency access mechanism called an Emergency Use Authorization (EUA). The EUA for this test is supported by the Fence Supervisor of Health and Human Service's (HHS's) declaration [...] consistent with SARS-CoV-2. Performed By: #### L [facility] #### [facility] [address] [place] [address] [address] Zan Escalante GLYCOHEMOGLOBIN A1Con 2021 ADA RECOMMENDATION SEE BELOW Normal [facility] Comment on above: Result Comment: ADA RECOMMENDED LIMIT 4.0 - 6.0 ADA THERAPEUTIC TARGET < 7.0 ACTION SUGGESTED > 7.0 Performed By: #### A 1C #### [facility] [address] [place] [address] Dr. Zan Escalante Glucose [Mass/Vol] 143 mg/dL Normal [facility] Comment on above: Performed By: #### A 1C #### [facility] [address] [place], [place] [id number] Dr. Zan Escalante HbA1c (Bld) [Mass fraction] 6.6 % Critically high 4.5-6.2 [facility] Comment on above: Performed By: #### A 1C #### [facility] [address] [address] [address] Zan Escalante LIPID PROFILEon 06-29-2022 CHOL-HDL RATIO NORM SEE BELOW Normal [facility] Comment on above: Result Comment: 3.3 - 4.4 LOW RISK 4.4 - 7.1 AVERAGE RISK 7.1 - 11.0 MODERATE RISK >11.0 HIGH RISK Performed By: #### B MP, LIPID #### [facility] [address] [address] [address] Zan Escalante Cholesterol [Mass/Vol] 105 mg/dL Normal <=200 [facility] Comment on above: Performed By: #### B MP, LIPID #### [facility] [address] [address] [address] Zan Escalante Cholesterol in HDL [Mass/Vol] 39 mg/dL Critically low 40-60 [facility] Comment on above: Performed By: #### B MP, LIPID #### [facility] [address] [address] [address] Zan Escalante Cholesterol in LDL [Mass/Vol] 45.0 mg/dL Normal [facility] Comment on above: Performed By: #### B MP, LIPID #### [facility] [address] [place], [place] [address] Dr. Zan Escalante Cholesterol.total/Ch olesterol in HDL [Mass ratio] 2.7 {ratio} Normal [facility] Comment on above: Performed By: #### B MP, LIPID #### [facility] [address] [place], [place] [address] Dr. Zan Escalante HDL NORMAL > or = 60 mg/dl - LO W CARDIOVASCULAR RISK <40 mg/dl - HIGH CARDIOVASCULAR RISK Normal [facility] Comment on above: Performed By: #### B MP, LIPID #### [facility] [address] [place], [place] [address] Dr. Zan Escalante LDL CALC NORMAL SEE BELOW Normal [facility] [place] [facility] Comment on above: Result Comment: <100 mg/dl OPTIMAL 100 - 129 mg/dl NEAR OR ABOVE OPTIMAL 130 - 159 mg/dl BORDERLINE HIGH 160 - 189 mg/dl HIGH >190 mg/dl VERY HIGH Performed By: #### B MP, LIPID #### [facility] [address] [place] [address] Dr. Zan Escalante Triglyceride [Mass/Vol] 105 mg/dL Normal <=150 [facility] Comment on above: Performed By: #### B MP, LIPID #### [facility] [address] [place] [address] Dr. Zan Escalante VLDL CALC 21.0 mg/dL Normal [facility] Comment on above: Performed By: #### B MP, LIPID #### [facility] [address] [place] [address] Dr. Zan Escalante PROF CHEM 8 (BAS METB)on Anion gap [Moles/Vol] 12.1 mmol/L Normal [facility] Comment on above: Performed By: #### B MP, LIPID #### [facility] [address] [place] [address] Dr. Zan Escalante Calcium [Mass/Vol] 9.0 mg/dL Normal 8.5-10.1 [facility] Comment on above: Performed By: #### B MP, LIPID #### [facility] [address] [place] [address] Dr. Zan Escalante Chloride [Moles/Vol] 106 mmol/L Normal 98-107 [facility] Comment on above: Performed By: #### B MP, LIPID #### [facility] [address] [place] [address] Dr. Zan Escalante CO2 [Moles/Vol] 28.4 mmol/L Normal 21.0-32.0 [facility] Comment on above: Performed By: #### B MP, LIPID #### [facility] [address] [place] [address] Dr. Zan Escalante Creatinine [Mass/Vol] 1.39 mg/dL Critically high 0.70-1.30 [facility] Comment on above: Performed By: #### B MP, LIPID #### [facility] [address] [place] [address] Dr. Zan Escalante EGFR-AF MALIAN >60 Normal >=60 [facility] Comment on above: Performed By: #### B MP, LIPID #### [facility] [address] [address] [address] Zan Escalante EGFR-NON AF MALIAN 50 mL/min/1.73m2 Critically low >=60 [facility] Comment on above: Performed By: #### B MP, LIPID #### [facility] [address] [address] [address] Zan Escalante Glucose [Mass/Vol] 96 mg/dL Normal 74-106 [facility] Comment on above: Performed By: #### B MP, LIPID #### [facility] [address] [address] [address] Zan Escalante Potassium [Moles/Vol] 4.5 mmol/L Normal 3.5-5.1 [facility] Comment on above: Performed By: #### B MP, LIPID #### [facility] [address] [address] [address] Zan Escalante Sodium [Moles/Vol] 142 mmol/L Normal 136-145 [facility] Comment on above: Performed By: #### B MP, LIPID #### [facility] [address] [address] [address] Zan Escalante Urea nitrogen [Mass/Vol] 23.0 mg/dL Critically high 7.0-18.0 [facility] Comment on above: Performed By: #### B MP, LIPID #### [facility] [address] [place] [address] Dr. Zan Escalante Urea nitrogen/Creatinine [Mass ratio] 16.5 mg/mg Normal [facility] Comment on above: Performed By: #### B MP, LIPID #### [facility] [address] [address] [address] Zan Escalante ESTRADIOLon 04-17-2022 ESTRADIOL 20.7 pg/mL Low 27-52 [facility] [place] Normal [facility] Comment on above: Result Comment: Test Performed by [facility] [address] [place] [address] - Released 04/17/2022 14:29 Result Comment: Test Performed by [facility] [address] [place] [address] - Released 04/17/2022 14:30 TESTOSTERONE, TOTAL ILon Testosterone [Mass/Vol] 108 ng/dL Low 220-1000 [facility] [address] UROGRAMon 03-13-2022 CT UROGRAM [facility] Department of Radiology [address] [place] [id number] ======== Patient Name: TRAE PINEDA : 1950 Sex: M Age: Race: White Pt. Location: [facility] Patient Status: D Ordered Date: 02/22/2022 4:30:00 PM Completed Date: 03/13/2022 04:53 PM Requesting Provider: LUPIS DENNIS Attending Provider: LUPIS DENNIS Report Copy To: CRISTOBAL KEARNS Signs & Symptoms: R31.0 Gross hematuria I10 History: [place], DM? on metformin? kidney dis? YES DM [...] low as reasonably achievable Electronically signed: Aquilino Johnson. Transcribed by: [email or web address], User Resident: Electronically Signed by: AQUILINO JOHNSON @ 03/15/2022 01:05 PM Normal [facility] Vital Signs Date Time Vital Sign Value Performing Clinician Facility 02-14-2024 13:32-0400 Diastolic blood pressure 62 mm[Hg] Margareth De La Cruz [facility] 02-14-2024 13:32-0400 Heart rate 66 /min Margareth De La Cruz [facility] 02-14-2024 13:32-0400 Mean blood pressure 87 mm[Hg] Margareth De La Cruz [facility] 02-14-2024 13:32-0400 Respiratory rate 14 /min Margareth De La Cruz [facility] 02-14-2024 13:32-0400 Systolic blood pressure 136 mm[Hg] Margareth De La Cruz [facility] 01-15-2024 14:27-0500 Heart rate 63 /min Lopez Davis [facility] 01-15-2024 14:27-0500 SaO2% (BldA) [Mass fraction] 100 % John Cannon [facility] 01-15-2024 14:27-0500 Respiratory rate 16 /min John Cannon [facility] 01-15-2024 14:26-0500 Diastolic blood pressure 78 mm[Hg] [facility] Cannon [facility] 01-15-2024 14:26-0500 Mean blood pressure 116 mm[Hg] John Cannon [facility] 01-15-2024 14:26-0500 Systolic blood pressure 192 mm[Hg] John Cannon [facility] 01-15-2024 14:17-0500 Diastolic blood pressure 76 mm[Hg] [facility] Cannon [facility] 01-15-2024 14:17-0500 Heart rate 66 /min [facility] 01-15-2024 14:17-0500 Respiratory rate 14 /min [facility] 01-15-2024 14:17-0500 SaO2% (BldA) [Mass fraction] 96 % [facility] 01-15-2024 14:17-0500 Systolic blood pressure 143 mm[Hg] [facility] 01-15-2024 13:42-0500 gluc 128 mg/dL [facility] Comment on above: Result Comment: per pt's meter on right arm 01-15-2024 13:30-0500 Heart rate 60 /min [facility] 01-15-2024 13:30-0500 SaO2% (BldA) [Mass fraction] 99 % [facility] 01-15-2024 13:30-0500 Body temperature 97.34 [degF] [facility] 01-15-2024 13:30-0500 Diastolic blood pressure 78 mm[Hg] [facility] 01-15-2024 13:30-0500 Mean blood pressure 111 mm[Hg] [facility] 01-15-2024 13:30-0500 Systolic blood pressure 175 mm[Hg] [facility] 01-15-2024 13:29-0500 Respiratory rate 14 /min [facility] 12-16-2023 10:23-0500 Diastolic blood pressure 66 mm[Hg] Margareth De La Cruz [facility] 12-16-2023 10:23-0500 Heart rate 70 /min Margareth De La Cruz [facility] 12-16-2023 10:23-0500 Mean blood pressure 92 mm[Hg] Margareth De La Cruz [facility] 12-16-2023 10:23-0500 Respiratory rate 14 /min Margareth De La Cruz [facility] 12-16-2023 10:23-0500 Systolic blood pressure 144 mm[Hg] Margareth De La Cruz [facility] 11-12-2023 10:00-0500 Body height 182.88 cm Cristobal Ball Other [employer] Other 11-12-2023 10:00-0500 Body mass index (BMI) [Ratio] 32.46 kg/m2 Cristobal Ball Other [employer] Other 11-12-2023 10:00-0500 Body weight 108.59 kg Cristobal Ball Other [employer] Other 11-12-2023 10:00-0500 Diastolic blood pressure 76 mm[Hg] Cristobal Ball Other [employer] [facility] [employer] Other 11-12-2023 10:00-0500 Respiratory rate 16 /min Cristobal Ball Other [facility] [employer] Other 11-12-2023 10:00-0500 Systolic blood pressure 137 mm[Hg] Cristobal Ball Other [facility] [employer] Other 11-08-2023 10:58-0500 Diastolic blood pressure 71 mm[Hg] Margareth De La Cruz [facility] 11-08-2023 10:58-0500 Heart rate 63 /min Margareth De La Cruz [facility] 11-08-2023 10:58-0500 Mean blood pressure 93 mm[Hg] Margareth De La Cruz [facility] 11-08-2023 10:58-0500 Respiratory rate 15 /min Margareth De La Cruz [facility] 11-08-2023 10:58-0500 Systolic blood pressure 136 mm[Hg] Margareth De La Cruz [facility] 09-06-2023 11:09-0400 Diastolic blood pressure 77 mm[Hg] Margareth De La Cruz [facility] 09-06-2023 11:09-0400 Heart rate 59 /min Margareth De La Cruz [facility] 09-06-2023 11:09-0400 Mean blood pressure 106 mm[Hg] Margareth De La Cruz [facility] 09-06-2023 11:09-0400 Respiratory rate 16 /min Margareth De [facility] 09-06-2023 11:09-0400 Systolic blood pressure 163 mm[Hg] Margareth De La Cruz [facility] 08-06-2023 14:22-0400 Heart rate 59 /min Himanshu Adriana [facility] 08-06-2023 14:22-0400 SaO2% (BldA) [Mass fraction] 99 % Himanshu Dariana [facility] 08-06-2023 14:22-0400 Diastolic blood pressure 91 mm[Hg] Himanshu Adriana [facility] 08-06-2023 14:22-0400 Mean blood pressure 107 mm[Hg] Himanshu Adriana [facility] 08-06-2023 14:22-0400 Systolic blood pressure 139 mm[Hg] Himanshu Adriana [facility] 08-06-2023 14:15-0400 Diastolic blood pressure 80 mm[Hg] Himanshu Adriana [facility] 08-06-2023 14:15-0400 Heart rate 58 /min Himanshu Adriana [facility] 08-06-2023 14:15-0400 SaO2% (BldA) [Mass fraction] 97 % Himanshu Adriana [facility] 08-06-2023 14:15-0400 Systolic blood pressure 146 mm[Hg] Himanshugerardo Wright [facility] 08-06-2023 13:52-0400 Respiratory rate 14 /min Himanshu Wright [facility] 08-06-2023 13:00-0400 Body temperature 98.06 [degF] Himanshu Wright [facility] 08-06-2023 13:00-0400 Diastolic blood pressure 70 mm[Hg] Himanshu Wright [facility] 08-06-2023 13:00-0400 Heart rate 67 /min Himanshu Wright [facility] 08-06-2023 13:00-0400 Systolic blood pressure 144 mm[Hg] Himanshu Wright [facility] 07-02-2023 14:17-0400 Diastolic blood pressure 71 mm[Hg] Margareth Oktogo [facility] 07-02-2023 14:17-0400 Heart rate 61 /min Margareth Oktogo [facility] 07-02-2023 14:17-0400 Mean blood pressure 97 mm[Hg] Margareth Oktogo [facility] 07-02-2023 14:17-0400 Respiratory rate 14 /min Margareth Oktogo [facility] 07-02-2023 14:17-0400 Systolic blood pressure 148 mm[Hg] Margareth Oktogo [facility] 01-11-2023 13:43-0500 Diastolic blood pressure 75 mm[Hg] Margareth Oktogo [facility] 01-11-2023 13:43-0500 Heart rate 76 /min Margareth Oktogo [facility] 01-11-2023 13:43-0500 Mean blood pressure 105 mm[Hg] Margareth De La Cruz [facility] 01-11-2023 13:43-0500 Respiratory rate 18 /min Margareth De La Cruz [facility] 01-11-2023 13:43-0500 Systolic blood pressure 166 mm[Hg] Margareth De La Cruz [facility] 01-08-2023 13:30-0500 Body height 182.88 cm Cristobal [employer] Other [facility] [employer] Other 01-08-2023 13:30-0500 Body mass index (BMI) [Ratio] 32.11 kg/m2 Cristobal Ball Other [facility] [employer] Other 01-08-2023 13:30-0500 Body weight 107.41 kg Cristobal Ball Other [employer] Other 01-08-2023 13:30-0500 Diastolic blood pressure 70 mm[Hg] Cristobal Ball Other [employer] Other 01-08-2023 13:30-0500 Respiratory rate 16 /min Cristobal Ball Other [employer] Other 01-08-2023 13:30-0500 Systolic blood pressure 126 mm[Hg] Cristobal Ball Other [employer] Other 12-12-2022 11:00-0500 Heart rate 73 /min Tutu Guzman [facility] 12-12-2022 11:00-0500 SaO2% (BldA) [Mass fraction] 98 % Tutu Guzman [facility] 12-12-2022 11:00-0500 Diastolic blood pressure 75 mm[Hg] Tutu Zumbar [facility] 12-12-2022 11:00-0500 Mean blood pressure 108 mm[Hg] Tutu Zumbar [facility] 12-12-2022 11:00-0500 Systolic blood pressure 173 mm[Hg] Tutu Zumbar [facility] 12-12-2022 10:51-0500 Diastolic blood pressure 88 mm[Hg] Tutu Zumbar [facility] 12-12-2022 10:51-0500 Heart rate 71 /min Tutu Zumbar [facility] 12-12-2022 10:51-0500 Respiratory rate 16 /min Tutu Zumbar [facility] 12-12-2022 10:51-0500 SaO2% (BldA) [Mass fraction] 96 % Tutu Zumbar [facility] 12-12-2022 10:51-0500 Systolic blood pressure 157 mm[Hg] Tutu Zumbar [facility] 12-12-2022 10:13-0500 Heart rate 75 /min Tutu Zumbar [facility] 12-12-2022 10:13-0500 SaO2% (BldA) [Mass fraction] 97 % Tuut Zumbar [facility] 12-12-2022 10:13-0500 Body temperature 97.88 [degF] Tutu Zumbar [facility] 12-12-2022 10:12-0500 Diastolic blood pressure 76 mm[Hg] Ttuu Zumbar [facility] 12-12-2022 10:12-0500 Mean blood pressure 108 mm[Hg] Tutu Zumbar [facility] 12-12-2022 10:12-0500 Systolic blood pressure 170 mm[Hg] Tutu Zumbar [facility] 12-12-2022 10:10-0500 Respiratory rate 16 /min Tutu Zumbar [facility] 11-08-2022 15:04-0500 Diastolic blood pressure 76 mm[Hg] Tutu Zumbar [facility] 11-08-2022 15:04-0500 Heart rate 62 /min Tutu Zumbar [facility] 11-08-2022 15:04-0500 Mean blood pressure 108 mm[Hg] Tutu Zumbar [facility] 11-08-2022 15:04-0500 Respiratory rate 14 /min Tutu Zumbar [facility] 11-08-2022 15:04-0500 Systolic blood pressure 173 mm[Hg] Tutu Zumbar [facility] Encounters Encounter Date Encounter Type Care Provider Facility Start: 02-14-2024 End: 02-14-2024 Pain Management Margareth De La Cruz [facility] Start: 02-11-2024 End: 02-11-2024 ambulatory Cristobal Kearns Other [employer] Other Start: 02-11-2024 Telephone encounter Cristobal Kearns [facility] Start: 01-20-2024 End: 01-20-2024 ambulatory [facility] Start: 01-15-2024 End: 01-16-2024 ambulatory John Cannon [facility] Start: 01-15-2024 End: 01-15-2024 Pain Management John Cannon [facility] Start: 01-01-2024 End: 01[facility]02[facility]24 [facility]: 12-16-2023 End: 12-17-2023 ambulatory TRINY De La Cruz Facility:[facility] Start: 12-16-2023 End: 12-16-2023 Pain Management Margareth De La Cruz [facility] Start: 12-10-2023 End: 12-10-2023 ambulatory DIONY [facility] Start: 11-27-2023 End: 11-27-2023 ambulatory Cristobal Kearns Other [facility] Other Start: 11-27-2023 Telephone encounter Cristobal TELLEZ [facility] Start: 11-19-2023 End: 11-19-2023 ambulatory Cristobal Kearns Other [employer] Other Start: 11-19-2023 Telephone encounter Cristobal Kearns ROSALINDA [facility] Start: 11-14-2023 End: 11-14-2023 ambulatory Cristobal Kearns Other [employer] Other Start: 11-14-2023 Telephone encounter Cristobal Kearns ROSALINDA [facility] Start: 11-12-2023 End: 11-12-2023 ambulatory Cristobal Kearns Other [employer] Other Start: 11-12-2023 Office outpatient vi sit 25 minutes Cristobal Kearns [facility] Start: 11-08-2023 End: 11-09-2023 ambulatory CRISTOBAL KEARNS Facility:[facility] Start: 11-08-2023 End: 11-08-2023 Pain Management Margareth De La [facility] Start: 10-28-2023 End: 10-29-2023 ambulatory [facility] Start: 09-06-2023 End: 09-07-2023 ambulatory PA-Reid De La Cruz Facility:[facility] Start: 09-06-2023 End: 09-06-2023 Pain Management Margareth De La Cruz [facility] Start: 09-04-2023 End: 09-04-2023 ambulatory Cristobal Kearns Other [facility] Start: 09-04-2023 Telephone encounter [facility] Start: 09-03-2023 End: 09-03-2023 ambulatory [facility] Start: 08-21-2023 End: 08-21-2023 ambulatory Cristobal Kearns Other [employer] Other Start: 08-21-2023 Telephone encounter Cristobal [facility]ELLE[facility] Start: 08-06-2023 End: 08-07-2023 ambulatory Himanshu Wright Facility:[facility] Start: 08-06-2023 End: 08-06-2023 Pain Management Himanshu Wright [facility] Start: 07-23-2023 End: 07-23-2023 ambulatory Cristobal Kearns Other [facility] Other Start: 07-23-2023 Telephone encounter Cristobal Kearns [facility] Start: 07-02-2023 End: 07-03-2023 ambulatory PA-C Margareth De La Cruz Facility:[facility] Start: 07-02-2023 End: 07-02-2023 Pain Management Margareth De La [facility] Start: 06-04-2023 End: 06-04-2023 ambulatory [facility] Start: 05-28-2023 ambulatory DIONY SINDHWANI [facility] Start: 05-28-2023 End: 05-28-2023 ambulatory HARPREET WATSON [facility] Start: 03-19-2023 End: 03-19-2023 ambulatory Cristobal Kearns Other [facility] [employer] Other Start: 03-19-2023 Office outpatient vi sit 15 minutes Cristobal Kearns [facility] Start: 03-08-2023 End: 03-08-2023 ambulatory Cristobal Kearns Other [facility] [employer] Other Start: 03-08-2023 Telephone encounter Cristobal Kearns [facility] Start: 03-07-2023 Telephone encounter Cristobal TELLEZ [facility] Start: 03-07-2023 End: 03-08-[address] CRISTOBAL KEARNS [facility] [employer] Other Start: 02-26-2023 Telephone encounter Cristobal TELLEZ [facility] Start: 02-26-2023 End: 02-26-2023 [facility]ulatory [facility] [employer] Other Start: 01-18-2023 Telephone encounter Cristobal TELLEZ [facility] Start: 01-18-2023 End: 01-19-[address] DOCTOR ADAMS [facility] [employer] Other Start: 01-11-2023 End: 01-11-2023 Pain Management Margareth De La [facility] Start: 01-08-2023 End: 01-08-2023 ambulatory Cristobal Kearns Other [facility] [employer] Other Start: 01-08-2023 Office outpatient vi sit 25 minutes Cristobal Kearns [facility] Start: 12-12-2022 End: 12-12-2022 Pain Management Tutu Guzman [facility] Start: 11-23-2022 End: 11-23-[address] CRISTOBAL KEARNS Facility:[facility] Start: 11-18-2022 End: 11-22-[address] CRISTOBAL KEARNS Facility:[facility] Start: 11-08-2022 End: 11-08-2022 Patient encounter procedure Tutu Guzman [facility] Start: 11-08-2022 End: 11-08-2022 Pain Management Tutu Guzman [facility] Start: 08-29-2022 End: 08-30-[address] DOCTOR ADAMS Facility:[facility] Start: 07-31-2022 End: 08-01-[address] MOI MOSS Facility:[facility] Start: 07-02-2022 Encounter for preprocedural laboratory examination DR CRISTOBAL KEARNS [facility] Start: 06-29-2022 End: 06-30-2022 Encounter for preprocedural laboratory examination DR CRISTOBAL KEARNS Facility:[facility] Start: 06-29-2022 End: 06-30-[address] CRISTOBAL KEARNS Facility:[facility] Start: 06-14-2022 End: 11-17-[address] CRISTOBAL KEARNS Facility:[facility] Start: 03-13-2022 End: 03-14-2022 ambulatory LUPIS DENNIS Facility:[facility] Procedures Date Procedure Procedure Detail Performing Clinician Start: 01-15-2024 Epidural injection o f lumbar spine using fluoroscopic guidance [employer] Comment on above: 0% relief Start: 08-06-2023 Injection of nerve r oot of lumbar spine using fluoroscopic guidance [employer] Comment on above: bilat L5/S1 TFESI- 9 0% relief x 2 weeks Start: 12-12-2022 Injection of nerve r oot of lumbar spine using fluoroscopic guidance [employer] Comment on above: L5-S1-90% relief Start: 04-17-2022 PSA screening LUPIS DENNIS Comment on above: Performed By: #### 4 [id number] #### [address] [place] [address], [facility] Start: 11-22-2021 Injection of nerve r oot of lumbar spine using fluoroscopic guidance Tutu Guzman Comment on above: Bilateral L5 TFESI-9 0-95% relief Start: 07-01-2020 Epidural steroid injection Tutu Guzman Comment on above: bilat L5 TFESI- 100% relief x 2 weeks now down to 50% Coronary bypass gustabo t angiography Tutu Guzman Comment on above: 2004 Decompression of med oleksandr nerve Tutu [employer] Comment on above: right 2012 Fracture of ankle (disorder) Tutushelli Guzman Comment on above: 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 purified surface antigen) Cristobal Kearns Other [employer] [facility] 08-11-2021 COVID-19 Vaccine Pfi zer - Documentation Purposes Only Cristobal Kearns Other [employer] 01-10-2021 COVID-19 Vaccine Pfi zer - Documentation Purposes Only Cristobal Kearns Other [employer] 12-20-2020 COVID-19 Vaccine Pfi zer - Documentation Purposes Only Cristobal Kearns Other [employer] [facility] 08-12-2020 zoster vaccine, live Benjami yonathan Kearns Other [employer] Other 07-27-2020 influenza virus vaccine, split virus (incl. purified surface antigen) Cristobal Kearns Other [employer] [facility] 08-26-2019 influenza virus vaccine, split virus (incl. purified surface antigen) Cristobal Kearns Other [employer] [facility] 10-29-2018 influenza virus vaccine, split virus (incl. purified surface antigen) Cristobal Kearns Other [employer] [facility] 07-19-2017 influenza virus vaccine, split virus (incl. purified surface antigen) Cristobal Kearns Other [employer] [facility] 10-09-2016 influenza virus vaccine, split virus (incl. purified surface antigen) Cristobal Kearns Other [employer] [facility] 10-18-2015 influenza virus vaccine, split virus (incl. purified surface antigen) Cristobal Kearns Other [employer] [facility] 09-20-2015 pneumococcal conjuga te vaccine, 13 valent Cristobal Kearns Other [employer] Other 11-07-2012 pneumococcal polysaccharide vaccine, 23 valent Cristobal Kearns Other [employer] Other Payers Date Payer Category Payer Private Health Insurance [id number] 1950 Unknown [id number] 2.16.8 [id number] 1950 Unknown [id number] 2.16.84 [id number] 1950 Unknown [id number] 2.16.84 [id number] 1950 Unknown [id number] 2.16.84 0.1.549712.3.579.2.593 1950 Unknown [id number] 2.16.84 0.1.311280.3.579.2.593 1950 Unknown [id number] 2.16.84 [id number] 1950 Unknown [id number] 2.16.84 0.1.388392.3.579.2.593 1950 Unknown [id number] 2.16.84 0.1.197441.3.579.2.593 1950 Unknown [id number] 2.16.84 0.1.112997.3.579.2.593 1950 Unknown [id number] 2.16.84 0.1.018124.3.579.2.593 1950 Unknown [id number] 2.16.8 40.1.999940.3.579.2.727 1950 Unknown [id number] 2.16.8 40.1.750321.3.579.2.727 1950 Unknown [id number] 2.16.8 40.1.888306.3.579.2.727 1950 Unknown [id number] 2.16.8 40.1.818535.3.579.2.727 1950 Unknown [id number] 2.16.8 [id number] 1950 Unknown [id number] 2.16.8 [id number] Social History Date Type Detail Facility Start: 10-05-2021 Tobacco smoking status Ex-smoker (fi nding) [facility] Comment on above: Quit in 1982 Sex Assigned At Male [facility] Medical Equipment Procedure Code Equipment Code Equipment Origin al Text Equipment Identifier Dates Start: 04-09-2023 Functional Status Date Assessment Result Facility 02-14-2024 Functional Status N/A [facility] 01-15-2024 Functional Status N/A [facility] 12-16-2023 Functional Status N/A [facility] 11-08-2023 Functional Status N/A [facility] 09-06-2023 Functional Status N/A [facility] 08-06-2023 Functional Status N/A [facility] 07-02-2023 Functional Status N/A [facility] 01-11-2023 Functional Status N/A [facility] 12-12-2022 Functional Status N/A [facility] 11-08-2022 Functional Status N/A [facility] Clinical Notes 01-08-2023 to 02-14-2024 Note Date & Type Note Facility 02-14-2024 Evaluation + Plan note Extrac priscilla from: Title:Pain Managment Follow up Author:Margareth Umaña Date:02/14/24 Impression and Plan Patient is 73-year-old male with a past medical history significant for lumbar stenosis, lumbar neuritis and lumbar spondylosis. Unfortunate on a recent epidural did not give him the relief he was looking for but then he states that his legs do feel better. He has been using gabapentin at bedtime with some improvement. We discussed increasing the medication. He was a little bit hesitant to do so but after long discussion about potential options and potential side effects of the medication we are going to increase the gabapentin to 300 mg twice daily. Potential side effects were discussed. OARRS was reviewed. We also reviewed the MRI. We discussed different injection options versus facet treatments since the back pain and spasms are what are most bothersome to him at this time. Questions and concerns were all answered and discussed. At this time, patient does not want to pursue this as he states that he had it done years ago and it did not help. We did discuss the process and his imaging findings. He will think about it. At this time he is going to try the increased dose of gabapentin and baclofen as needed. We discussed referral to a surgeon but at this time he declines. He is on a trial of medications and follow-up in 4 to 6 weeks. LEONOR score: 48% Future Appointments Appointment Date:03/27/2024 02:15:00 PM Scheduled Provider:Margareth De La Cruz PA-C Location:FT.[facility] Mg[facility] [place] Appointment Type:Pain Management - Follow Up (FT) [facility]2024 NoteUT Cardiology - [facility] Subjective Trae Pineda is a 73 y.o. year old male patient being seen for 6 mo follow up CAD, hypertension, hyperlipidemia, and carotid artery stenosis. Had carotid US at [facility] a few weeks ago. Last lipid panel was done in Jul 2023. Denies chest pain. Says his ARAGON remains unchanged. Does get dizzy spells once in awhile, but not very often . Had an episode 2 days ago where he felt dizzy and weak. He was in a restaurant. Patient states it subsided after he went home and took a nap. He was also very SOB. Says his SBP has been running very high , around 170. Patient Active Problem List Diagnosis Type 2 diabetes mellitus without complication (CMS/HCC) Seizure (CMS/HCC) Chronic prostatitis Preoperative evaluation to rule out surgical contraindication Kidney stone Hyperlipidemia Generalized ischemic myocardial dysfunction Generalized anxiety disorder Gallstone Dyspnea Disorder of lipid metabolism Depressive disorder Chronic obstructive lung disease (CMS/HCC) Chronic anxiety Chest pain Benign essential hypertension Coronary arteriosclerosis in [place] artery Coronary arteriosclerosis of [place] coronary artery of transplanted heart Suprapubic discomfort Benign prostatic hyperplasia with lower urinary tract symptoms Erectile dysfunction Lung nodule Hypogonadism in male Sleep apnea Irregular heart rhythm History of open heart surgery History of myocardial infarction Enlarged prostate CPAP (continuous positive airway pressure) dependence Carpal tunnel syndrome Anemia CKD (chronic kidney disease) Spinal stenosis of lumbar region with neurogenic claudication No family history on file. Social History Tobacco Use Smoking status: Former Types: Cigarettes Quit date: 1983 Years since quittin.2 Passive exposure: Never Smokeless tobacco: Never Vaping Use Vaping Use: Never used Substance Use Topics Alcohol use: Never Drug [...] cardiac output and cardiac index. His echocardiogram 2015 showed stable mildly reduced LV EF of [...] was elevated (taken care of by Dr Kearns) and his Cr was close to baseline [...] He has no leg swelling. His physical activ (more content not included)...[facility]02-28-2024 [id number] NoteDiagnosis: M54.16, lumbar radiculopathy Procedure: L5/S1 lumbar interlaminar epidural steroid injection under fluoroscopic guidance Anesthesia: Local Complications: none After informed consent was obtained, the patient was brought to the procedure suite and placed in the prone position. Pulse oximetry and blood pressure were monitored throughout. Low back areas prepped and draped in the usual sterile fashion. Using fluoroscopic guidance, the skin and subcutaneous tissue overlying the needle trajectory were anesthetized with 2% lidocaine. A 17-gauge Touhy needle was inserted and directed by fluoroscopy. Entry into the epidural space was confirmed using the wzgi-in-svfxhevotw technique and 2 cc of air. Injection of contrast revealed appropriate spread without vascular uptake. 4 mL of normal saline plus 40 mg of methylprednisolone was then injected. The needlewas removed and the patient was then transferred to the recovery room in stable condition. The patient tolerated the procedure well. There were no apparent complications. Follow-up: The patient will update us on the response to this procedure, and agrees to continue currently prescribed/recommended therapies.[facility] Comment on above:Result Comment: Electronically Signed By: John Cannon DO\.br\Date and Time Signed: 01/15/24 14:23 [id number] Evaluation + Plan note Extracted from: Title:L5/S1 interlaminar epi dural steroid injection Author:John Cannon DO Date:01/15/24 Diagnosis: M54.16, lumbar ra diculopathy Procedure: L5/S1 lumbar interlaminar epidural steroid injection under fluoroscopic guidance Anesthesia: Local Complications: none After informed consent was obtained, the patient was brought to the procedure suite and placed in the prone position. Pulse oximetry and blood pressure were monitored throughout. Low back areas prepped and draped in the usual sterile fashion. Using fluoroscopic guidance, the skin and subcutaneous tissue overlying the needle trajectory were anesthetized with 2% lidocaine. A 17-gauge Touhy needle was inserted and directed by fluoroscopy. Entry into the epidural space was confirmed using the ihdv-qv-dbuqzqwnsy technique and 2 cc of air. Injection of contrast revealed appropriate spread without vascular uptake. 4 mL of normal saline plus 40 mg of methylprednisolone was then injected. The needle was removed and the patient was then transferred to the recovery room in stable condition. The patient tolerated the procedure well. There were no apparent complications. Follow-up: The patient will update us on the response to this procedure, and agrees to continue currently prescribed/recommended therapies. Future Appointments Appointment Date:02/14/2024 01:30:00 PM Scheduled Provider:Margareth De La Cruz PA-C Location:.[facility] Appointment Type:Pain Management - Follow Up (FT) [facility]01-29-2024 Evaluation + Plan noteExtracted from: Title:Pain Managment Follow up Author:Margareth Umaña Date:12/16/23 Impression and Plan Patient is a 73-year-old male with a past medical history significant for lumbosacral stenosis and lumbosacral neuritis. Previous transforaminal epidural steroid injection did not give him relief like the previous interlaminar epidural steroid injection did. We reviewed his MRI. Based on his MRI findings, his pain pattern, and his failure to get any long-term relief with the recent transforaminal epidural steroid injection we discussed pursuing L5-S1 epidural steroid injection interlaminar epidural steroid injection. Procedure was discussed. Risk and benefits were discussed. Patient is agreeable. He will follow-up 2 weeks after the injection for reevaluation. Call clinic sooner if necessary. In the meantime we will also start gabapentin. 300 mg at bedtime. Patient side effects were discussed. OARRS was reviewed. He will follow-up as above-mentioned LEONOR score: 48% [facility]01-23-[facility]24 [facility] Clinic H&P Dr. Diony Ariza MD Patient: Trae Pineda Date of : 1950 CHIEF COMPLAINT: Low testosterone, BPH HISTORY OF PRESENT ILLNESS: The patient is a 73 y.o. male who presents with 12/10/23 History of chronic bacterial prostatitis Completed course of Doxycycline 2. Gross hematuria States he had 2x hematuria in one day in June. Denies any dysuria, flank pain, or abdominal pain during that time. Denies any fever, nausea, vomiting. Hematuria has not reoccurred since. 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 However, if he does try to urinate again, he does not have a need to go again. Hypogonadism - doesn't feel the initial mental clearly that was felt with starting of TRT Testosterone level 444 (11/2023) 374 (08/2023) 510 (05/2023) 359 (02/2023) Continues to use androgel applying one pump per chest side daily Patient currently on Cialis. States that it helps some with erection. History of BPH with outflow obstruction, LUTS Cystoscopy (10/2023) showing crossbridging of bilobar prostatic lobes with bilobar prostatic hypertrophy and large intravesical median lobe Patient continues to have urgency. He states that he'll sometimes have dribbling as he's walking to the restroom. Patient reports sometimes having a good, strong stream. Sometimes the stream is weak and slow, but other times the stream will stop and then go. He states that sitting down and relaxing helps with urinating. After he urinates, he feels discomfort around the suprapubic area. Nocturia 0-1x/evening. S/p greenlight laser therapy 5 years ago 4. Prostate cancer screening FH of prostate cancer: father PSA Trend 2.2 (09/2023) 2.41 (08/2023) 2.1 (05/2023) 2.0 (02/2023) 1.4 (03/2022) 02/26/2023: 1. Hypogonadism - Testosterone did not [...] - no dysuria Other labs: PSA 1.4 (5/31/22) Patient's old records, notes and chart reviewed and summarized above. Past Medical History: Past Medical History: Diagnosis Date Anxiety BPH (benign prostatic hyperplasia) WITH OUTFLOW OBSTRUCTION Chronic bacterial prostatitis COPD (chronic obstructive pulmonary disease) ([facility]) Coronary artery disease, non-occlusive Depression Diabetes mellitus (CMS/HCC) Erectile dysfunction Hyperlipemia Hypertension Hypogonadism in male Kidney stone Sleep apnea CPAP DEPENDENT Past Surgical History: Past Surgical History: Procedure Laterality (more content not included)...[facility]01-02-2024 Evaluation note* Encounter Date Diagnosis Assessment Notes Treatment Notes Treatment Clinical Notes Nov, Pulmonary nodule (ICD-10 - R91.1) CT: RML 4mm nodule - 02/2022, CT: RML 7mm nodule - 02/2023 CT: stable - 08/2023Nov, Right carotid bruit (ICD-10 - R09.89) Carotid US: 50-69% stenosis - 2019, Carotid US: < 50% ICA w/ 75% right carotid bulb - 08/2021 [facility] 12-28-2023 Evaluation note* Encounter Date Diagnosis Assessment Notes Treatment Notes Treatment Clinical Notes Oct, 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 (ICD-10 - E11.3291) [facility] 12-26-2023 Evaluation note* Encounter Date Diagnosis [...] use, the patient reduces the risk for [place], CVA, HTN, cardiac dysrhythmias and sudden cardiac [...] index [BMI] 32.0-32.9, adult (ICD-10 - Z68.32) [facility] Other [id number] Evaluation + Plan noteExtracted from: Title:Pain Managment [...] Scheduled Provider:Margareth De La Cruz PA-C Location:.[facility] Appointment Type:Pain Management - Follow Up (FT) [facility]12-21-2023 NotePrior auth obtained for Yolanda- Paulina [id number] - [place] APPROVED 11/07/2023. STATUS APPROVED. COVERAGE START DATE 10/08/2023 END DATE 11/06/2024.[facility]12-11-2023 NotePatient: Trae Ventura Edwin Procedure Summary Date: 10/28/23 Room / Location: [facility]PER[facility] 07 / [facility] Operating Room Anesthesia Start: 735 Anesthesia [...] PACU per anesthesia protocol. No notable events documented.[facility]12-11-2023 Note Patient: Trae Pineda Procedure Summary Date: 10/28/23 Room / Location: [facility] / [facility] Operating Room Anesthesia Start: 735 Anesthesia Stop: Procedure: CYSTOURETHROSCOPY, WITH RETROGRADE PYELOGRAM [...] direct observation Transport: uneventful [facility] Patient: Trae Pineda Procedure Information Date/Time: 10/28/23729 Procedure: CYSTOURETHROSCOPY, WITH RETROGRADE PYELOGRAM (Bilateral) - C-ARM Location: [facility] 07 / [facility] Operating Room Surgeons: Diony Ariza MD Relevant Problems Cardio tolerates >4 METs without chest pain, SOB (+) Benign essential hypertension (+) Coronary arteriosclerosis in [place] artery (+) Hypertensive disorder Endo (+) Type [...] discussed with attending and resident. [facility] Note History and Physical Patient: Trae [...] bacterial prostatitis COPD (chronic obstructive pulmonary disease) ([facility]) Coronary artery disease, non-occlusive Depression Diabetes mellitus ([facility]) Erectile dysfunction Hyperlipemia Hypertension Hypogonadism in male [...] every day by oral route. Historical Provider, calcium carbonate 600 mg calcium (1,500 mg) tablet Take 600 mg by mouth. 05/18/20 Historical ProviderMD carvedilol (Coreg) 6.25 mg tablet carvedilol 6.25 mg tablet one bid Historical ProviderMD ezetimibe (Zetia) 10 mg tablet TAKE 1 TABLET DAILY 04/05/23 Moi Moss MD insulin NPH and regular human (HumuLIN 70/30 U-100 Insulin) 100 unit/mL (70-30) injection Inject under the skin before breakfast and before evening meal. 30 units in AM, 20 units in PM Historical ProviderMD lisinopril 10 mg tablet Take 1 tablet every day by oral route. Historical Provider, nitroglycerin (Nitrostat) 0.4 mg SL tablet if needed. Historical Provider, ranolazine (Ranexa) 500 mg 12 hr tablet Take 1 tablet by mouth in the morning and at bedtime. Historical ProviderMD Repatha Syringe 140 mg/mL syringe INJECT 1ML SUBCUTANEOUSLY EVERY 2 WEEKS Patient taking differently: LAST DOSE 10/1704/01/23 Moi Moss MD sulfamethoxazole-trimethoprim (Bactrim DS) 800-160 mg tablet [...] THE MORNING 10/01/23 Moises Aguirre NP Allergies: Lcrnazl-jdk-vpz reductase inhibitors and Hydralazine Social History: Social [...] Hypogonadism Plan: OR tod (more content not included)...[facility] 09-06-2023 Evaluation + Plan noteExtracted from: [...] AM Scheduled Provider:Margareth De La Cruz PA-C Location:FT.[facility] Appointment Type:Pain Management - Follow Up (FT) [facility]10-18-2023 Evaluation note* Encounter Date Diagnosis Assessment Notes Treatment Notes Treatment Clinical Notes Aug, Pulmonary nodule (ICD-10 - R91.1) CT: RML 4mm nodule - 02/2022, CT: RML 7mm nodule - 02/2023 CT: stable - 08/2023 [facility] [id number] NoteUrology Clinic H&P Dr. Diony Ariza MD [...] today as he got it done in [place] but it was a send out lab. [...] Date Anxiety COPD (chronic obstructive pulmonary disease) ([facility]) Coronary artery disease, non-occlusive Depression Diabetes mellitus ([facility]) Hyperlipemia Hypertension Past Surgical History: Past Surgical [...] TAKE 1 TAB (more content not included)... [facility]10-04-2023 Evaluation note* Encounter Date Diagnosis Assessment Notes Treatment Notes Treatment Clinical Notes Aug, Pulmonary nodule (ICD-10 - R91.1) [facility] 09-19-2023 Note [id number] 07-02-2023 Evaluation + Plan noteExtracted from: Title:Pain [...] clinic sooner if necessary. LEONOR score: 44% [facility]07-18-2023 NoteUT Cardiology [facility] Subjective Trae Pineda is a [...] disorder Benign essential hypertension Coronary arteriosclerosis in [place] artery Coronary arteriosclerosis of [place] coronary artery of transplanted heart Suprapubic discomfort [...] was elevated (taken care of by Dr Kearns) and his Cr was close to baseline [...] carvedilol due to bradycardi (more content not included)...[facility]07-11-2023 NoteSubjective: Chief complaint: This patient is [...] an echocardiogram and rece (more content not included)...[facility]05-02-2023 Evaluation note* Encounter Date Diagnosis Assessment Notes Treatment Notes Treatment Clinical Notes March, COVID-19 (ICD-10 - U07.1) Instructed to use Robitussin or Mucinex for cough, saline or Flonase NS for congestion, Tylenol for pain and fever. March, Chronic bronchitis, mucopurulent (ICD-10 - J41.1) Mucinex DM as needed. Push fluids [facility] 04-20-2023 Evaluation note* Encounter Date Diagnosis Assessment Notes Treatment Notes Treatment Clinical Notes Feb, Pulmonary nodule (ICD-10 - R91.1) CT: RML 4mm nodule - 02/2022 CT: RML 7mm nodule - 02/2023 [facility] 04-11-2023 Evaluation note* Encounter Date Diagnosis Assessment Notes Treatment Notes Treatment Clinical Notes Feb, Pulmonary nodule (ICD-10 - R91.1) [facility] 04-11-2023 NoteUrology Clinic H&P Dr. Diony [...] non-occlusive Anxiety COPD (chronic obstructive pulmonary disease) (CMS/HCC) Depression Diabetes mellitus (CMS/HCC) Hyperlipemia Hypertension Past Surgical History: Past Surgical [...] medications on file prior to visit. Allergies: Jcvocrh-iif-ldw reductase inhibitors and Hydralazine Social History: Social [...] on file Intimate [facility] (more content not included)...[facility] 01-11-2023 Evaluation + Plan noteExtracted from: [...] require a repeat injection. 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) use of insulin (ICD-10 - Z79.4) [...] 02/2022 Serial LDCT for lung cancer detection [facility] Other Evaluation + Plan note No data available for this section [facility] Future Appointments Appointment Date:01/11/2023 01:45:00 PM Scheduled Provider:Margareth De La Cruz PA-C Location:FT.[facility] [place] Appointment Type:[facility] Future Appointments Appointment Date:09/06/2023 11:00:00 AM Scheduled Provider:Margareth De La Cruz PA-C Location:FT.[facility] Mg[facility] [place] Appointment Type:Pain Management - [facility] noteNo InformationN[facility] hospital [employer] Other History general Narrative - Reported* Type [...] gross Medical History 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, 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 Medical History Arteriosclerosis of abdominal ao [...] Triple bypass Hospitalization History see sx history [facility] Other History general Narrative - Reported* Type [...] gross Medical History 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, 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 Medical History Arteriosclerosis of abdominal ao [...] Triple bypass Hospitalization History see sx history [facility] Other Hospital Discharge instructions No data available for this section [facility] No data available for this section [facility] Summary Purpose Family History No Family History Records FoundNo Family History Records Found No data available for this section No data available for this section No data available for this section No data available for this section No Family History Records FoundNo Family History Records Found No data available for this section Advance Directives No Advanced Directives Records FoundNo Advanced Directives Records FoundNo Advanced Directives Records FoundNo Advanced Directives Records Found Additional Source Comments (unrecognized sect ion and content) No Status Records FoundNo Status Records FoundNo Status Records FoundNo Status Records Found INFORMATION SOURCE (unrecogn ized section and content) DATE CREATED AUTHOR 07/24/2022 [facility] DATE CREATED AUTHOR AUTHOR'S ORGANIZ ATION 03/11/2023 [facility] DATE CREATED AUTHOR AUTHOR'S ORGANIZ ATION 01/18/2024 [facility] DATE CREATED AUTHOR AUTHOR'S ORGANIZ ATION 01/27/2024 [facility] Patient Care team informatio n (unrecognized section and content) Personnel Name: CRISTOBAL KEARNS DO Address: Address: [address] [place] [address] Personnel Name: CRISTOBAL KEARNS DO Address: Address: [address] [place] [address] Personnel Name: CRISTOBAL KEARNS DO Address: Address: [address] [facility] [place], [place] [address]- Personnel Name: CRISTOBAL KEARNS DO Address: Address: [address] [facility] [place], [place] [address]- Personnel Name: CRISTOBAL KEARNS DO Address: Address: [address] [facility], [place], [address] Personnel Name: CRISTOBAL KEARNS DO Address: Address: [address] [facility], [place], [address] Personnel Name: CRISTOBAL KEARNS DO Address: Address: [address] [facility], [place], [address] Personnel Name: CRISTOBAL KEARNS DO Address: Address: [address] [facility], [place], [address] Personnel Name: CRISTOBAL KEARNS DO Address: Address: [address] [facility] [place], [place] [address]- Personnel Name: CRISTOBAL KEARNS DO Address: Address: [address] [facility], [place], [address] Personnel Name: CRISTOBAL KEARNS DO Address: Address: [address] [facility], [place], [address] REASON FOR VISIT (unrecogniz ed section and content) 4 MONTH FOLLOW UPBS readingC T scanNo InformationCT resultscovid - paxlovidLab Resultsrepeat CT scanNo InformationCT resultsCheck UpNo InformationNo InformationAIC resultsNo Information FOR RECORDS PERTAINING TO PATIENTS WHO [...] BE BASED ON THE PRIMARY CLINICAL RECORDS. [facility] provides no warranty or guarantee of the accuracy or completeness of information in this document.
[2024-03-04 09:36] LABS: Estimated Average Glucose 143 mg/dL; Glycohemoglobin A1C 6.6 % (4.5-6.2)
== END 2024-03-04 09:03 | disposition home or self-care (01) ==
LOC: LAB 09:03
PROVIDERS: PCP Internal Medicine; Visit Provider Internal Medicine
DX: E11.65 Type 2 diabetes mellitus with hyperglycemia (principal)
CPT/HCPCS: 36415; 83036

== ENCOUNTER 2024-03-04 09:05 | Outpatient (OUT) | payer MEDICARE, SELFPAY ==
--- OUTSIDE RECORDS SUMMARY | 2024-03-04 09:18 | XMS_ITS | CCD ---
Author Organization [facility] Care Team Providers Care Cruller Maker Name Role Phone LUPIS DENNIS Admitting Unavailable LUPIS DENNIS Attending Unavailable BALL, CRISTOBAL Referring Unavailable BALL, CRISTOBAL Primary Care Unavailable BALL, CRISTOBAL Primary Care Physician [phone] Ball, Cristobal Unavailable SOM, DR DON Admitting [...] (3 sources) black walnut pollen extract; Translations: [LZESZNH-LJJ-RSM REDUCTASE INHIBITORS] Drug Allergy 01-27-2013 [facility] Repository (12 sources) HMG-CoA reductase inhibitor; Translations: [statins] Drug allergy muscle ache [facility] (13 sources) hydrALAZINE; Translations: [hydralazine] Drug Allergy 07-25-2022 palpatations [facility] Medications Current Medications Medication Drug Class(es) Dates [...] Spasm, # 30 tab(s), Refills(s) 0, Pharmacy: [facility]/pharmacy #[id number], 183, cm, 02/14/24 13:46:00 EDT, [...] Refills(s) 0 Start Date: 05/18/20 Status: Ordered [facility] - (5 sources) [facility] - as directed Orally Active cyclobenzaprine hydrochloride 10 mg oral tablet (4 sources) Muscle Relaxant Start: 11-08-2022 take 1 tablet by mouth three times daily as needed for muscle spasms cyclobenzaprine 10 mg Tab 10 mg = 1 tab(s), Oral, TID, PRN for spasm, # 30 tab(s), Refills(s) 0, Pharmacy: [facility]/pharmacy #[id number], 182.9, cm, 11/08/22 15:17:00 EST, [...] 05/18/20 Status: Ordered [employer] - (15 sources) [employer] - as directed Active FreeStyle Singh 14 [...] BID, # 60 cap(s), Refills(s) 0, Pharmacy: [facility]/pharmacy #[id number], 183, cm, 02/14/24 13:46:00 EDT, Height/Length Dosing, 110.3, kg, 02/14/24 13:46:00 EDT, Weight Dosing Start Date: 02/14/24 Status: Ordered Start: 12-16-2023 take 1 capsule by [facility] once daily at bedtime gabapentin 300 mg Cap 300 mg = 1 cap(s), Oral, Once a day (at bedtime), # 30 cap(s), Refills(s) 1, [id number], cm, 12/16/23 10:37:00 EST, Height/Length Dosing, 102.3, kg, 12/16/23 10:37:00 EST, Weight Dosing Start Date: 12/16/23 Status: Ordered Start: 11-08-2022 take 1 capsule by [facility] at bedtime gabapentin 100 mg Cap 100 mg = 1 cap(s), Oral, Bedtime, # 30 cap(s), Refills(s) 0, [id number] 182.9, cm, 11/08/22 15:17:00 EST, Height/Length [...] sources) Long-term current use of insulin; Translations: [terminal supervisor (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) use of insulin] Episodic Other and [...] Onset: 08-14-2022 Episodic Other aftercare (2 sources) custodial (current) use of insulin; Translations: [EMPLOYMENT SUPERVISOR CURRENT USE OF INSULIN] Onset: 11-27-2022 Episodic Other aftercare (1 source) Other snf (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 therapy; Translations: [OTH EMPLOYMENT SUPERVISOR CURRENT DRUG THERAPY] Onset: 11-27-2022 Episodic Other aftercare (1 source) terminal supervisor (current) use of aspirin; Translations: [EMPLOYMENT SUPERVISOR CURRENT USE OF ASPIRIN] Onset: 11-27-2022 Episodic [...] Interpretation Reference Range Facility Refillon 01-26-2024 Refill [id number] Trae Pineda 1950 M Date Provider Department Center 01/26/2024 Danni-MOISES AGUIRRE [facility] URO Second Fl No family history on file Reason for Visit and Comments: Med Refill [[id number]] Normal [facility] Office Visiton 01-20-2024 Follow-up visit [id number] Trae Pineda 1950 M Date Provider Department Center 01/20/2024 MOI DHILLON [facility] No family history on file Level of Service:41656 MD OFFICE/OUTPATIENT ESTABLISHED MOD MDM 30 MIN Normal [facility] Consent for Procedure/Surger yon 01-15-2024 Consent for Procedure/Surgery [id number]#1 .00TIFF Normal [facility] Consent for Treatmenton 12-20 Consent for Treatment [id number]#1.0 0TIFF [facility] Discharge Instructionson Discharge Instructions [id number]#1 .00TIFF [facility] IntraOperative Documentson 0 01-15-2024 IntraOperative Documents [id number]#1 .00TIFF [facility] Main OR Intraoperative Recor don 01-15-2024 Main OR Intraoperative Record IntraOp Document Type FTPM Summary Primary Physician: John Cannon DO Finalized Date/Time: 01/15/24 14:25:24 Pt. Name: EDWIN TRAE Lorenzo Anderson/Sex: 1950 Male Med Rec #: [id number] Physician: John Cannon DO Financial #: [id number] Pt. Type: P Room/Bed: / Admit/Disch: 01/15/24 [...] Lula Schuler Role Performed Surgeon - Primary Commercial Illustrator - Primary Scrub - Primary Time In 01/15/24 14:15:00 01/15/24 14:15:00 01/15/24 14:15:00 Time Out 01/15/24 14:24:00 01/15/24 14:24:00 01/15/24 14:24:00 Procedure LUMBAR EPIDURAL STEROID LUMBAR EPIDURAL STEROID LUMBAR EPIDURAL STEROID INJECTION(.) INJECTION(.) INJECTION(.) Comments Last Modified By: Deysi Castro RN, RN, Madison A Pritchard RN, Madison A 01/15/24 14:23:16 01/15/24 14:23:16 01/15/24 14:23:16 Entry 4 Case Attendee Leanne Fitzgerald Role Performed Route Sales Specialist Time In 01/15/24 14:15:00 Time Out 01/15/24 [...] and tissue Entry 1 Skin Integrity Intact, [place], Warm, and Skin Abnormality No Dry Outcomes [...] Last Modif (more content not included)... Normal [facility] Main OR Preoperative Recordo n 01-15-2024 Main OR Preoperative Record Holding Area Document Type FTPM Summary Primary Physician: John Cannon DO Finalized Date/Time: 01/15/24 13:38:25 Pt. Name: TRAE PINEDA/Sex: 1950 Male Med Rec #: [id number] Physician: John Cannon DO Financial #: [id number] Pt. Type: P Room/Bed: / Admit/Disch: 01/15/24 [...] By: Barb Schmidt RN 01/15/24 13:38 Normal [facility] Patient Correspondenceon Patient Correspondence [id number]#1. 00TIFF Normal [facility] Orders Onlyon 12-23-2023 Orders Only [id number] Trae Pineda 1950 M Date Provider Department Center 12/23/2023 124-MOISES AGUIRRE None No family history on file [facility] Refillon 12-20-2023 Refill [id number] Trae Pineda 1950 M Date Provider Department Center 12/20/2023 MOISES SANON [facility] URO Second Fl No family history on file Reason for Visit and Comments: Med Refill [[id number]] Normal [facility] Office/Clinic Note-Physician on 12-19-2023 Office/Clinic Note-Physician [id number]#1.00 TIFF Normal [facility] Insurance Correspondence Off iceon 12-17-2023 Insurance Correspondence Office [id number]#1.00 TIFF Normal [facility] Consent for Treatmenton 11-19 Consent for Treatment [id number]#1. 00TIFF Normal [facility] Consultation Noteon 12-16-19 24 Consultation Note Patient: KATERINA PINEDA Age: 73 years Sex: Male : 1950 Associated Diagnoses: None Author: Margareth De La Cruz PA-C Subjective Chief complaint 12/16/2023 10:23 [...] History of heart attack / SNOMED CT 9720801905 / Confirmed Acute angina / SNOMED CT 351999744 / Confirmed Irregular heart beat / SNOMED CT 773909543 / Confirmed HTN (hypertension) / SNOMED CT 5661764796 / Confirmed High cholesterol / SNOMED CT 39952251 / Confirmed H/O heart bypass surgery / SNOMED CT 707634782 / Confirmed Apnea, sleep / SNOMED CT 718374113 / Confirmed CPAP (continuous positive airway pressure) dependence / SNOMED CT 2404380769 / Confirmed Enlarged prostate / SNOMED CT 205329271 / Confirmed Chronic kidney disease (CKD) / SNOMED CT 6140568548 / Confirmed Diabetes / SNOMED CT 646481087 / Confirmed Carpal tunnel syndrome / SNOMED CT 80249700 / Confirmed Anemia / SNOMED CT 934898957 / Confirmed Arthritis, rheumatoid / SNOMED CT 730626473 / Confirmed Obesity / ICD-9-CM 278.00 / Possible Obesity / SNOMED CT I0557P00-3019-4O99-X34 [id number] / Possible Objective Vital Signs 12/16/2023 10:23 [...] right straight leg raise Integumentary: Warm, Dry, [place]. Neurologic: Alert, Oriented. Psychiatric: Cooperative, Appropriate mood [...] if necessary (more content not included)... Normal [facility] Comment on above: Result Comment: Elec tronically Signed By: Margareth De La Cruz PA-C\.br\Date and Time Signed: 12/16/23 10:54 EST\.br\Electronically Co-Signed By: John Cannon DO.br\Date and Time Co-Signed: 12/19/23 11:37 EST Legal Correspondence Officeo n 12-16-2023 Legal Correspondence Office [id number]#1.0 0TIFF Normal [facility] Office/Clinic Note-Nurseon 0 12-16-2023 Office/Clinic Note-Nurse [id number]#1. 00TIFF Normal [facility] Office/Clinic Note-Nurse [id number]#1.0 0TIFF Normal [facility] Comment on above: Other Comment: triston earl Office/Clinic Note-Physician on 12-16-2023 Office/Clinic Note-Physician [id number]#1.0 0TIFF Normal [facility] Patient Correspondenceon Patient Correspondence [id number]#1.0 0TIFF Normal [facility] Patient Correspondence [id number]#1.0 0TIFF Normal [facility] Patient Correspondence [id number]#1.0 0TIFF Normal [facility] Patient Correspondence [id number]#1.0 0TIFF Normal [facility] Patient History Officeon Patient History Office [id number]#1.0 0TIFF Normal [facility] Radiology Outside Office Asw/Asuw Tactical Air Controller yon 12-16-2023 Radiology Outside Office Copy [id number]#1.0 0TIFF Normal [facility] Radiology Outside Office Copy [id number]#1. 00TIFF Normal [facility] Follow-Upon 12-10-2023 Follow-Up [id number] Trae Pineda 1950 M Date Provider Department Center 12/10/2023 435-DIONY ARIZA [facility] URO Second Fl No family history on file Level of Service:47953 MD OFFICE/OUTPATIENT ESTABLISHED MOD MDM 30 MIN Reason for Visit and Comments: Benign Prostatic Hypertrophy [540562032] Follow-up [[id number]] - Cysto follow-up with labs Normal [facility] URINALYSIS MICROSCOPIC WITH REFLEX CULTUREon 12-10-2023 CASTS IN URINE Present Abnormal None Seen [facility] Comment on above: Performed By: #### L [id number] ####[facility] ([facility]ER)[address] [place] [address] CRYSTALS IN URINE Normal [facility] Comment on above: Performed By: #### L [id number] ####[facility] (BEAKER)[address] [place] [address] HYALINE CASTS /LPF IN URINE SEDIMENT BY MICROSCOPY 8 /LPF High <1 [facility] Comment on above: Performed By: #### L [id number] ####[facility] ([facility])[address] [place] [address] MUCUS (#/HPF) IN URINE SEDIMENT Occasional Normal None Seen, Occasional, Few [facility] Comment on above: Performed By: #### L [id number] ####[facility] (BEAKER)[address] [place] [address] OTHER MICROSCOPIC ELEMENTS Normal [facility] Comment on above: Performed By: #### L [id number] ####[facility] ([facility]ER)[address] [place] [address] RBC (#/HPF) IN URINE SEDIMENT 0-2 Abnormal None Seen [facility] Comment on above: Performed By: #### L [id number] ####[facility] ([facility])[address] [place] [address] SQUAMOUS EPITHELIAL CELLS (#/HPF) IN URINE SEDIMENT Occasional Normal None Seen, Occasional [facility] Comment on above: Performed By: #### L [id number] ####[facility] ([facility]AKER)[address] [place] [address] WBC (LEUKOCYTE) (#/HPF) IN URINE SEDIMENT 0-2 Abnormal None Seen [facility] Comment on above: Performed By: #### L [id number] ####[facility] ([facility])[address] [place] [address] URINALYSIS WITH REFLEX CULTU REon 12-10-2023 BILIRUBIN, TOTAL PRESENCE IN URINE Negative Normal Negative [facility] Comment on above: Performed By: #### L [id number] #### [facility] ([facility]) [address] [place] [address] Clarity (U) Clear Normal Clear [facility] Comment on above: Performed By: #### L [id number] #### [facility] ([facility]) [address] [place] [address] Color (U) Holly Abnormal Yellow [facility] Comment on above: Performed By: #### L [id number] #### [facility] ([facility]) [address] [place] [address] Glucose (U) [Mass/Vol] Negative Normal Negative [facility] Comment on above: Performed By: #### L [id number] #### [facility] ([facility]) [address] [place] [address] HEMOGLOBIN PRESENCE IN URINE Negative Normal Negative [facility] Comment on above: Performed By: #### L [id number] #### [facility] ([facility]) [address] [place] [address] Ketones Ql (U) Negative Normal Negative [facility] Comment on above: Performed By: #### L [id number] #### [facility] ([facility]) [address] [place] [address] LEUKOCYTE ESTERASE PRESENCE IN URINE BY TEST STRIP Negative Normal Negative [facility] Comment on above: Performed By: #### L [id number] #### [facility] ([facility]) [address] [place] [address] NITRITE PRESENCE IN URINE Negative Normal Negative [facility] Comment on above: Performed By: #### L [id number] #### [facility] (BEAKER) [address] [facility] [address] pH (U) 5.0 [pH] Normal 5.0-8.0 [facility] Comment on above: Performed By: #### L [id number] #### [facility] (BE[facility]ER) [address] [facility] [place] [address] Protein (U) [Mass/Vol] 30 mg/dL Abnormal Negative [facility] Comment on above: Performed By: #### L [id number] #### [facility] (BEAKER) [address] [facility] [place] [address] Specific gravity (U) [Rel density] 1.026 High 1.015-1.020 [facility] Comment on above: Performed By: #### L [id number] #### [facility] ([facility]) [address] [place] [address] Orders Onlyon 12-09-2023 Orders Only [id number] Trae Pineda 1950 M Date Provider Department Center 12/09/2023 SHY ROMERO None No family history on file [facility] 36on 12-04-2023 36 Approving, but needs appt for additional refills. Normal [facility] Insurance Correspondence Off iceon 11-13-2023 Insurance Correspondence Office [id number]#1. 00TIFF [facility] Physician Orderon 11-13-2023 Physician Order [id number]#1. 00TIFF [facility] Consent for Treatmenton 10-19 Consent for Treatment [id number]#1. 00TIFF [facility] Consultation Noteon 11-08-20 Consultation Note Patient: [...] History of heart attack / SNOMED CT 6118464973 / Confirmed Acute angina / SNOMED CT 358720351 / Confirmed Irregular heart beat / SNOMED CT 640801008 / Confirmed HTN (hypertension) / SNOMED CT 8982392759 / Confirmed High cholesterol / SNOMED CT 99585986 / Confirmed H/O heart bypass surgery / SNOMED CT 082758519 / Confirmed Apnea, sleep / SNOMED CT 736580149 / Confirmed CPAP (continuous positive airway pressure) dependence / SNOMED CT 2062746487 / Confirmed Enlarged prostate / SNOMED CT 054011687 / Confirmed Chronic kidney disease (CKD) / SNOMED CT 0589764738 / Confirmed Diabetes / SNOMED CT 533840174 / Confirmed Carpal tunnel syndrome / SNOMED CT 56066136 / Confirmed Anemia / SNOMED CT 868839292 / Confirmed Arthritis, rheumatoid / SNOMED CT 069402827 / Confirmed Obesity / ICD-9-CM 278.00 / Possible Obesity / SNOMED CT B4828M51-6818-4U17-M87 [id number] / Possible Objective Vital Signs 11/08/2023 10:58 [...] right straight leg raise Integumentary: Warm, Dry, [place]. Neurologic: Alert, Oriented. Psychiatric: Cooperative, Appropriate mood [...] agreeable. Follow-up after. LEONOR score: 36% Normal [facility] Comment on above: Result Comment: Elec tronically Signed By: Jono AGOSTO, Margareth\.br\Date and Time Signed: 11/08/23 11:19 EST Office/Clinic Note-Physician on 11-08-2023 Office/Clinic Note-Physician [id number]#1. 00TIFF Normal [facility] Patient Correspondenceon Patient Correspondence [id number]#1. 00TIFF Normal [facility] Patient Correspondence [id number]#1. 00TIFF Normal [facility] Patient History Officeon Patient History Office [id number]#1. 00TIFF Normal [facility] Refillon 11-02-2023 Refill [id number] Trae Pineda 1950 M Date Provider Department Center 11/02/2023 MOISES SANON [facility] URO Second Fl No family history on file Reason for Visit and Comments: Med Refill [[id number]] Normal [facility] [place] ORon 10-28-2023 [place] IN [...] fluoroscopic equipment utilization. Electronically signed: Abhi Antonio. [facility] Comment on above: Order Comment: CYSTO RETROGRADE PYELOGRAM OPNOTEon 10-28-2023 OPNOTE -- Attestation signed by Diony Ariza MD at 10/30/2023 12:59 PM I was present for the entire procedure. CYSTOURETHROSCOPY, WITH RETROGRADE PYELOGRAM (B) Operative Note Date: 10/28/2023 Location: [facility] OR Name: Trae Pineda, : 1950, Diagnosis [...] Priority Lab ID A Bladder washing Urine NON-PULP REFINER OPERATOR CYTOLOGY - CELLULAR EXAM Diony Ariza MD 10/28/23801 B Urine, Catheterized Urine NON-PULP REFINER OPERATOR CYTOLOGY - CELLULAR EXAM Diony Ariza MD 10/28/23801 Routine Description: BLADDER URINE FOR CULTURE Staff: Commercial Illustrator: Shena Calvillo RN; Dafne Carrillo RN Relief Commercial Illustrator: Kristian Cuevas RN Indications: Trae Pineda is [...] in outpatient urology clinic. Diony Ariza Normal [facility] Orders Onlyon 10-28-2023 Orders Only [id number] Trae Pineda 1950 M Date Provider Department Center 10/28/2023 HUGO SAGASTUME [facility] URO Second Fl No family history on file Normal [facility] POCT GLUCOSE METER UNSOLICIT ED RESULTSon 10-28-2023 Glucose [Mass/Vol] 132 mg/dL High 70-105 [facility] Comment on above: Order Comment: Waive d Testing in the ED is performed under the ED CLIA certificate #[id number]. Result Comment: [facility] sylvia Performed By: #### L [id number] #### [facility] (BEAKER) [address] [place] [address] URINE CULTURE, STERILE COLLE CTIONon 10-28-2023 Bacteria identified Cx Nom (U) No growth at 48 hours Normal [facility] Comment on above: Order Comment: Pre-o p diagnosis:Benign prostatic hyperplasia with lower urinary tract symptoms, symptom details unspecified [N40.1] Performed By: #### L [id number] ####[facility] (BEAKER)[address] [place] [address] GRAM STAIN RESULT Normal [facility] Comment on above: Order Comment: Pre-o p diagnosis:Benign prostatic hyperplasia with lower urinary tract symptoms, symptom details unspecified [N40.1] Result Comment: No p olymorphonuclear leukocytes seen No organisms seen Performed By: #### L [id number] ####[facility] (BEAKER)[address] [place] [address] [id number] 10-18-2023 [id number] HOLD CIALIS X 48 HRS STOP 10/26 MEDICATIONS TO TAKE DAY OF SURGERY WITH SIP OF WATER AMLODIPNE COREG INSULIN HUMULIN 70/30 IF YOU ARE GOING HOME AFTER YOUR SURGERY OR PROCEDURE, FOR YOUR SAFETY, YOUR SURGERY WILL BE CANCELLED IF BOTH OF THE FOLLOWING ARE NOT AVAILABLE: An adult motor pool driver over the age of 18, that [...] lenses. Do not wear perfume, make-up, nail citizen of [place], or lotions on the day of your [...] need to make any changes, please call [phone]. Notify your surgeon if you develop any illness such as a cold, cough, fever, sore throat or vomiting between now and your surgery. Thank you for entrusting us with your care. [facility] Surgical Services Team Normal [facility] Refillon 10-01-2023 Refill [id number] Trae Pineda 1950 M Date Provider Department Center 10/01/2023 MOISES SANON [facility] URO Second Fl No family history on file Reason for Visit and Comments: Med Refill [[id number]] Normal [facility] Consent for Treatmenton 08-19 Consent for Treatment [id number]#1. 00TIFF [facility] Consultation Noteon 09-06-20 Consultation Note Patient: [...] History of heart attack / SNOMED CT 4656344134 / Confirmed Acute angina / SNOMED CT 014318356 / Confirmed Irregular heart beat / SNOMED CT 903405717 / Confirmed HTN (hypertension) / SNOMED CT 4871850688 / Confirmed High cholesterol / SNOMED CT 65417960 / Confirmed H/O heart bypass surgery / SNOMED CT 019491977 / Confirmed Apnea, sleep / SNOMED CT 703329986 / Confirmed CPAP (continuous positive airway pressure) dependence / SNOMED CT 8300014974 / Confirmed Enlarged prostate / SNOMED CT 885798013 / Confirmed Chronic kidney disease (CKD) / SNOMED CT 6492516760 / Confirmed Diabetes / SNOMED CT 720409326 / Confirmed Carpal tunnel syndrome / SNOMED CT 73600821 / Confirmed Anemia / SNOMED CT 729419961 / Confirmed Arthritis, rheumatoid / SNOMED CT 643735816 / Confirmed Obesity / ICD-9-CM 278.00 / Possible Obesity / SNOMED CT E2575A85-9128-6Y86-X56 [id number] / Possible Objective Vital Signs 09/06/2023 11:09 [...] straight leg raise bilaterally Integumentary: Warm, Dry, [place]. Neurologic: Alert, Oriented. Psychiatric: Cooperative, Appropriate mood [...] sooner if necessary. LEONOR score: 36% Normal [facility] Comment on above: Result Comment: Elec tronically Signed By: Margareth De La Cruz PA-C\.br\Date and Time Signed: 09/06/23 11:33 EDT\.br\Electronically Co-Signed By: John Cannon DO.dawit\Date and Time Co-Signed: 09/09/23 10:07 EDT Office/Clinic Note-Physician on 09-06-2023 Office/Clinic Note-Physician [id number]#1.0 0TIFF Normal [facility] Orders Officeon 09-06-2023 Orders Office [id number]#1.0 0TIFF Normal [facility] Patient Correspondenceon Patient Correspondence [id number]#1.0 0TIFF Normal [facility] Patient Correspondence [id number]#1.0 0TIFF [facility] Patient History Officeon Patient History Office [id number]#1.0 0TIFF [facility] Follow-Upon 09-03-2023 Follow-Up [id number] Trae Pineda 1950 M [facility] Provider Department Center 09/03[facility]2023 [facility] Second Fl No family history on file Level of Service:72343 MD OFFICE/OUTPATIENT ESTABLISHED MOD MDM 30-39 MIN Reason for Visit and Comments: Hypogonadism [185] - Labs / flow PVR [facility] Orders Onlyon 09-02-2023 Orders Only [id number] Trae Pineda 1950 [facility] Provider Department Center 09/02/2023 Doroteo-SHY VALADEZ TXLeora None No family history on file [facility] 36on 08-29-2023 36 This is a request fo r Dr. Ariza patient. Can you please assist with this refill? [facility] Refillon 08-29-2023 Refill [id number] Trae Pineda 1950 [facility] Provider Department Center 08/29[facility]2023 [facility] Second Fl No family history on file Reason for Visit and Comments: Med Refill [[id number]] [facility] Consent for Procedure/Surger yon 08-06-2023 Consent for Procedure/Surgery [id number]#1. 00CD:127 [facility] Consent for Treatmenton 07-19 Consent for Treatment [id number]#1.0 0CD:127 [facility] Discharge Instructionson Discharge Instructions [id number]#1. 00CD:127 Normal [facility] IntraOperative Documentson 0 08-06-2023 IntraOperative Documents [id number]#1. 00CD:127 Normal [facility] Main OR Intraoperative Recor don 08-06-2023 Main OR Intraoperative Record IntraOp Document Type FTPM Summary Primary Physician: Himanshu Wright MD Finalized Date/Time: 08/06/23 14:19:56 Pt. Name: EDWINTRAEO.B./Sex: 1950 Male Med Rec #: [id number] Physician: Himanshu Wright MD Financial #: [id number] Pt. Type: P Room/Bed: / Admit/Disch: 08/06/23 [...] Deysi Herrera Role Performed Surgeon - Primary Commercial Illustrator - Primary Scrub - Primary Time In [...] Leanne Dennis Role Performed Scrub - Relief Route Sales Specialist Time In 08/06/23 14:12:00 08/06/23 14:12:00 Time [...] Goldner MD, Himanshu Lopez, Tai PEREZ, Lia Mercedes Amy Time Out Complete 08/06/23 [...] and tissue Entry 1 Skin Integrity Intact, [place], Warm, and Skin Abnormality No Dry Outcomes [...] Arm Posi (more content not included)... Normal [facility] Main OR Preoperative Recordo n 08-06-2023 Main OR Preoperative Record Holding Area Document Type FTPM Summary Primary Physician: Himanshu Wright MD Finalized Date/Time: 08/06/23 14:02:18 Pt. Name: TRAE PINEDA/Sex: 1950 Male Med Rec #: [id number] Physician: Himanshu Wright MD Financial #: [id number] Pt. Type: P Room/Bed: / Admit/Disch: 08/06/23 [...] By: Isa Romero RN 08/06/23 14:02 Normal [facility] Operative Reporton 3 Operative Report Patient: [...] Pressure 70 mmHg SpO2 97 % . [facility] Comment on above: Result Comment: Elec tronically Signed By: Adriana ARMANDO, Himanshu Lopez\.br\Date and Time Signed: 08/06/23 14:20 EDT 36on 07-30-2023 36 Approving, but needs appt for additional refills. Normal [facility] Refillon 07-29-2023 Refill [id number] Trae Pineda 1950 M Date Provider Department Center 07/29/2023 CHARLENE TAYLOR [facility] Second Al No family history on file Reason for Visit and Comments: Med Refill [[id number]] Normal [facility] Insurance Correspondence Off ice07-09-2023 Insurance Correspondence Office [id number]#1. 00CD:127 [facility] Patient Correspondenceon Patient Correspondence [id number]#1. 00CD:127 [facility] Consent for Treatmenton 06-18 Consent for Treatment [id number]#1. 00CD:127 Normal [facility] Consultation Noteon 07-02-20 Consultation Note Patient: [...] History of heart attack / SNOMED CT 5386900912 / Confirmed Acute angina / SNOMED CT 160493421 / Confirmed Irregular heart beat / SNOMED CT 103145610 / Confirmed HTN (hypertension) / SNOMED CT 5248960252 / Confirmed High cholesterol / SNOMED CT 46189867 / Confirmed H/O heart bypass surgery / SNOMED CT 202251695 / Confirmed Apnea, sleep / SNOMED CT 372504835 / Confirmed CPAP (continuous positive airway pressure) dependence / SNOMED CT 4855881528 / Confirmed Enlarged prostate / SNOMED CT 837045720 / Confirmed Chronic kidney disease (CKD) / SNOMED CT 8200855366 / Confirmed Diabetes / SNOMED CT 123168146 / Confirmed Carpal tunnel syndrome / SNOMED CT 38359950 / Confirmed Anemia / SNOMED CT 333160516 / Confirmed Arthritis, rheumatoid / SNOMED CT 990499524 / Confirmed Obesity / ICD-9-CM 278.00 / Possible Obesity / SNOMED CT [id number] [id number] / Possible Objective Vital Signs 07/02/2023 14:17 [...] straight leg raise bilaterally Integumentary: Warm, Dry, [place]. Neurologic: Alert, Oriented. Psychiatric: Cooperative, Appropriate mood [...] Verified b (more content not included)... Normal [facility] Comment on above: Result Comment: Elec tronically Signed By: Margareth De La Cruz PA-C\.br\Date and Time Signed: 07/02/23 14:39 EDT\.br\Electronically Co-Signed By: Tutu Guzman MD\.br\Date and Time Co-Signed: 07/04/23 20:24 EDT Office/Clinic Note-Physician on 07-02-2023 Office/Clinic Note-Physician [id number]#1.0 0CD:127 Normal [facility] Patient Correspondenceon Patient Correspondence [id number]#1.0 0CD:127 Normal [facility] Patient Correspondence [id number]#1.0 0CD:127 Normal [facility] Patient History Officeon Patient History Office [id number]#1.0 0CD:127 [facility] 29on 06-04-2023 29 Addended by: HARPREET WATSON on: 06/04/2023 11:25 AM Modules accepted: Orders Normal [facility] Office Visiton 06-04-2023 Follow-up visit [id number] Trae Pineda Lorenzo 1950 M [facility] Provider Department Center 06/04/2023 [facility] No family history on file Level of Service:91958 MD OFFICE/OUTPATIENT ESTABLISHED MOD MDM 30-39 MIN Reason for Visit and Comments: Follow-up [[id number]] - 6 month follow up Normal [facility] 36on 05-31-2023 36 No bacterial or candidal growth in urine. Will prescribed Bactrim DS BID x2 weeks and daily x 4 weeks for suspected prostatitis. BMP ordered to recheck potassium in a couple weeks. Normal [facility] Telephoneon 05-31-2023 Telephone [id number] Trae Pineda Lorenzo 1950 M [facility] Provider Department [employer] 05/31/2023 3561-HARPREET WATSON TXP None No family history on file Normal [facility] CBC WITH AUTO DIFFERENTIALon 05-28-2023 Basophils (Bld) [#/Vol] 0.11 10*3/uL Normal 0.00-0.20 [facility] Comment on above: Performed By: #### L [id number] #### [facility] ([facility]) [address] [place] [address] Basophils/100 WBC (Bld) 1.1 % High 0.0-1.0 [facility] Comment on above: Performed By: #### L [id number] #### [facility] ([facility]) [address] [place] [address] Eosinophils (Bld) [#/Vol] 0.35 10*3/uL Normal 0.00-0.50 [facility] Comment on above: Performed By: #### L [id number] #### [facility] ([facility]) [address] [place] [address] Eosinophils/100 WBC (Bld) 3.5 % Normal 0.0-6.0 [facility] Comment on above: Performed By: #### L [id number] #### [facility] [address] [place] [address] Erythrocyte distribution width (RBC) [Ratio] 14.6 % Normal 11.5-15.0 [facility] Comment on above: Performed By: #### L [id number] #### [facility] ([facility]) [address] [place] [address] ERYTHROCYTE MEAN CORPUSCULAR HEMOGLOBIN CONCENTRATION (G/DL) BY AUTOMATED 32.1 g/dL Normal 32.0-35.0 [facility] Comment on above: Performed By: #### L [id number] #### [facility] ([facility]) [address] [place] [address] Hematocrit (Bld) [Volume fraction] 44.9 % Normal 39.0-55.0 [facility] Comment on above: Performed By: #### L [id number] #### [facility] ([facility]) [address] [place] [address] Hemoglobin (Bld) [Mass/Vol] 14.4 g/dL Normal 13.0-17.0 [facility] Comment on above: Performed By: #### L [id number] #### [facility] ([facility]) [address] [place] [address] Immature granulocytes (Bld) [#/Vol] 0.05 10*3/uL Normal 0.00-0.20 [facility] Comment on above: Performed By: #### L [id number] #### [facility] ([facility]) [address] [place] [address] Immature granulocytes/100 WBC (Bld) 0.5 % Normal 0.0-1.0 [facility] Comment on above: Performed By: #### L [id number] #### [facility] ([facility]) [address] [place] [address] Lymphocytes (Bld) [#/Vol] 2.26 10*3/uL Normal 1.20-4.00 [facility] Comment on above: Performed By: #### L [id number] #### [facility] ([facility]) [address] [place] [address] Lymphocytes/100 WBC (Bld) 22.8 % Normal 20.0-45.0 [facility] Comment on above: Performed By: #### L [id number] #### [facility] ([facility]) [address] [place] [address] MCH (RBC) [Entitic mass] 29.1 pg Normal 27.0-33.0 [facility] Comment on above: Performed By: #### L [id number] #### [facility] ([facility]) [address] [place] [address] MCV (RBC) [Entitic vol] 90.7 fL Normal 82.0-98.0 [facility] Comment on above: Performed By: #### L [id number] #### [facility] ([facility]) [address] [place] [address] Monocytes (Bld) [#/Vol] 0.92 10*3/uL Normal 0.10-1.00 [facility] Comment on above: Performed By: #### L [id number] #### [facility] ([facility]) [address] [place] [address] Monocytes/100 WBC (Bld) 9.3 % Normal 5.0-12.0 [facility] Comment on above: Performed By: #### L [id number] #### [facility] ([facility]) [address] [place] [address] Neutrophils (Bld) [#/Vol] 6.22 10*3/uL Normal 1.60-7.60 [facility] Comment on above: Performed By: #### L [id number] #### [facility] ([facility]) [address] [place] [address] Neutrophils/100 WBC (Bld) 62.8 % Normal 40.0-72.0 [facility] Comment on above: Performed By: #### L [id number] #### [facility] ([facility]) [address] [place] [address] NRBC (PER 100 WBCS) BY AUTOMATED COUNT 0.0 % Normal 0 [facility] Comment on above: Performed By: #### L [id number] #### [facility] ([facility]) [address] [place] [address] PLATELETS (10*3/UL) IN BLOOD AUTOMATED COUNT 198 10*3/uL Normal 150-400 [facility] Comment on above: Performed By: #### L [id number] #### [facility] ([facility]) [address] [place] [address] RBC (Bld) [#/Vol] 4.95 10*6/uL Normal 4.20-5.70 [facility] Comment on above: Performed By: #### L [id number] #### [facility] ([facility]) [address] [place] [address] WBC (Bld) [#/Vol] 9.91 10*3/uL Normal 4.00-10.60 [facility] Comment on above: Performed By: #### L [id number] #### [facility] ([facility]) [address] [place] [address] Follow-Upon 05-28-2023 Follow-Up [id number] Trae Pineda 1950 M [facility] Provider Department Center 05/28/2023 Elena1HARPREET HOLLAND [facility] Second Fl No family history on file Level of Service:35945 MD OFFICE/OUTPATIENT ESTABLISHED MOD MDM 30-39 MIN Reason for Visit and Comments: Benign Prostatic Hypertrophy [930432035] Hypogonadism [185] - 3 mo follow-up with labs, pt had labs shortly after last appt Normal [facility] Labon 05-28-2023 Lab [id number] Trae Pineda 1950 M Date Provider Department Center 05/28/2023 [facility] LAB RESOURCE [facility] OPD [facility] C No family history on file Normal [facility] PSA, SCREENINGon 05-28-2023 PROSTATE SPECIFIC AG (NG/ML) IN SER/PLAS 2.1 ng/mL Normal 0.4-4 [facility] Comment on above: Performed By: #### L [id number] #### [facility] ([facility]) [address] [place] [address] TESTOSTERONEon 05-28-2023 TESTOSTERONE (NG/DL) IN SER/PLAS 510 ng/dL Normal 220-1000 [facility] Comment on above: Result Comment: Test Performed by [employer] [facility] [place] [address] - Released 05/29/2023 04:45 Performed By: #### L [id number] #### [facility] ([facility]) [address] [place] [address] URINALYSIS WITH MICROSCOPICo n 05-28-2023 BILIRUBIN, TOTAL PRESENCE IN URINE Negative Normal Negative [facility] Comment on above: Performed By: #### L [id number] #### [facility] ([facility]) [address] [place] [address] CASTS IN URINE Present Abnormal None Seen [facility] Comment on above: Performed By: #### L [id number] #### [facility] ([facility]) [address] [place] [address] Clarity (U) Clear Normal Clear [facility] Comment on above: Performed By: #### L [id number] #### [facility] ([facility]) [address] [place] [address] Color (U) Holly Abnormal Yellow [facility] Comment on above: Performed By: #### L [id number] #### [facility] ([facility]) [address] [place] [address] Glucose (U) [Mass/Vol] Negative Normal Negative [facility] Comment on above: Performed By: #### L [id number] #### [facility] ([facility]) [address] [place] [address] HEMOGLOBIN PRESENCE IN URINE Negative Normal Negative [facility] Comment on above: Performed By: #### L [id number] #### [facility] ([facility]) [address] [place] [address] HYALINE CASTS /LPF IN URINE SEDIMENT BY MICROSCOPY 7 /LPF High <1 [facility] Comment on above: Performed By: #### L [id number] #### [facility] ([facility]) [address] [place] [address] Ketones Ql (U) Negative Normal Negative [facility] Comment on above: Performed By: #### L [id number] #### [facility] ([facility]) [address] [place] [address] LEUKOCYTE ESTERASE PRESENCE IN URINE BY TEST STRIP Negative Normal Negative [facility] Comment on above: Performed By: #### L [id number] #### [facility] ([facility]) [address] [place] [address] MUCUS (#/HPF) IN URINE SEDIMENT Occasional Normal None Seen, Occasional, Few [facility] Comment on above: Performed By: #### L [id number] #### [facility] ([facility]) [address] [place] [address] NITRITE PRESENCE IN URINE Negative Normal Negative [facility] Comment on above: Performed By: #### L [id number] #### [facility] ([facility]) [address] [place] [address] pH (U) 5.0 [pH] Normal 5.0-8.0 [facility] Comment on above: Performed By: #### L [id number] #### [facility] ([facility]) [address] [place] [address] Protein (U) [Mass/Vol] 30 mg/dL Abnormal Negative [facility] Comment on above: Performed By: #### L [id number] #### [facility] ([facility]) [address] [place] [address] RBC (#/HPF) IN URINE SEDIMENT None Seen Normal None Seen [facility] Comment on above: Performed By: #### L [id number] #### [facility] ([facility]) [address] [place] [address] Specific gravity (U) [Rel density] 1.024 High 1.015-1.020 [facility] Comment on above: Performed By: #### L [id number] #### [facility] ([facility]) [address] [facility] [place] [address] SQUAMOUS EPITHELIAL CELLS (#/HPF) IN URINE SEDIMENT Moderate Abnormal None Seen, Occasional [facility] Comment on above: Performed By: #### L [id number] #### [facility] ([facility]) [address] [place] [address] WBC (LEUKOCYTE) (#/HPF) IN URINE SEDIMENT 0-2 Abnormal None Seen [facility] Comment on above: Performed By: #### L [id number] #### [facility] ([facility]) [address] [place] [address] URINE CULTURE, ROUTINEon Bacteria identified Cx Nom (U) No growth at 48 hours Normal [facility] Comment on above: Performed By: #### L [id number] #### [facility] ([facility]) [address] [place] [address] CT CHEST WO CONon 03-07-2023 CT CHEST [...] by: SLOAN SOSA Date: 2023-03-07 10:[address] [facility] Letter (Out)on 02-27-2023 Letter (Out) [id number] Trae Pineda 1950 M Date Provider Department Center 02/27/2023 DIONY GREENBERG [facility] Second Fl No family history on file Normal [facility] CBC WITH AUTO DIFFERENTIALon 02-26-2023 Basophils (Bld) [#/Vol] 0.11 10*3/uL Normal 0.00-0.20 [facility] Comment on above: Performed By: #### L [id number] #### [facility] ([facility]) [address] [place] [address] Basophils/100 WBC (Bld) 1.3 % High 0.0-1.0 [facility] Comment on above: Performed By: #### L [id number] #### [facility] ([facility]) [address] [place] [address] Eosinophils (Bld) [#/Vol] 0.22 10*3/uL Normal 0.00-0.50 [facility] Comment on above: Performed By: #### L [id number] #### [facility] ([facility]) [address] [place] [address] Eosinophils/100 WBC (Bld) 2.6 % Normal 0.0-6.0 [facility] Comment on above: Performed By: #### L [id number] #### [facility] [address] [place] [address] Erythrocyte distribution width (RBC) [Ratio] 13.9 % Normal 11.5-15.0 [facility] Comment on above: Performed By: #### L [id number] #### [facility] ([facility]) [address] [place] [address] ERYTHROCYTE MEAN CORPUSCULAR HEMOGLOBIN CONCENTRATION (G/DL) BY AUTOMATED 32.4 g/dL Normal 32.0-35.0 [facility] Comment on above: Performed By: #### L [id number] #### [facility] ([facility]) [address] [place] [address] Hematocrit (Bld) [Volume fraction] 44.1 % Normal 39.0-55.0 [facility] Comment on above: Performed By: #### L [id number] #### [facility] ([facility]) [address] [place] [address] Hemoglobin (Bld) [Mass/Vol] 14.3 g/dL Normal 13.0-17.0 [facility] Comment on above: Performed By: #### L [id number] #### [facility] ([facility] [address] [place] [address] Immature granulocytes (Bld) [#/Vol] 0.04 10*3/uL Normal 0.00-0.20 [facility] Comment on above: Performed By: #### L [id number] #### [facility] ([facility]) [address] [place] [address] Immature granulocytes/100 WBC (Bld) 0.5 % Normal 0.0-1.0 [facility] Comment on above: Performed By: #### L [id number] #### [facility] ([facility]) [address] [place] [address] Lymphocytes (Bld) [#/Vol] 1.90 10*3/uL Normal 1.20-4.00 [facility] Comment on above: Performed By: #### L [id number] #### [facility] ([facility]) [address] [place] [address] Lymphocytes/100 WBC (Bld) 22.1 % Normal 20.0-45.0 [facility] Comment on above: Performed By: #### L [id number] #### [facility] (BEAKER) [address] [place] [address] MCH (RBC) [Entitic mass] 29.8 pg Normal 27.0-33.0 [facility] Comment on above: Performed By: #### L [id number] #### [facility] ([facility]) [address] [place] [address] MCV (RBC) [Entitic vol] 91.9 fL Normal 82.0-98.0 [facility] Comment on above: Performed By: #### L [id number] #### [facility] ([facility]) [address] [place] [address] Monocytes (Bld) [#/Vol] 0.77 10*3/uL Normal 0.10-1.00 [facility] Comment on above: Performed By: #### L [id number] #### [facility] ([facility]) [address] [place] [address] Monocytes/100 WBC (Bld) 9.0 % Normal 5.0-12.0 [facility] Comment on above: Performed By: #### L [id number] #### [facility] ([facility]) [address] [place] [address] Neutrophils (Bld) [#/Vol] 5.55 10*3/uL Normal 1.60-7.60 [facility] Comment on above: Performed By: #### L [id number] #### [facility] ([facility]) [address] [place] [address] Neutrophils/100 WBC (Bld) 64.5 % Normal 40.0-72.0 [facility] Comment on above: Performed By: #### L [id number] #### [facility] ([facility]) [address] [place] [address] NRBC (PER 100 WBCS) BY AUTOMATED COUNT 0.0 % Normal 0.0-0.0 [facility] Comment on above: Performed By: #### L [id number] #### [facility] ([facility]) [address] [place] [address] PLATELETS (10*3/UL) IN BLOOD AUTOMATED COUNT 215 10*3/uL Normal 150-400 [facility] Comment on above: Performed By: #### L [id number] #### [facility] ([facility]) [address] [place] [address] RBC (Bld) [#/Vol] 4.80 10*6/uL Normal 4.20-5.70 [facility] Comment on above: Performed By: #### L [id number] #### [facility] ([facility]) [address] [place] [address] WBC (Bld) [#/Vol] 8.59 10*3/uL Normal 4.00-10.60 [facility] Comment on above: Performed By: #### L [id number] #### [facility] ([facility]) [address] [place] [address] COMPREHENSIVE METABOLIC PANE [place] 02-26-2023 Albumin [Mass/Vol] 4.2 g/dL Normal 3.5-5.7 [facility] Comment on above: Performed By: #### L [id number] #### [facility] ([facility]) [address] [place] [address] ALP [Catalytic activity/Vol] 63 U/L Normal 34-104 [facility] Comment on above: Performed By: #### L [id number] #### [facility] ([facility]) [address] [place] [address] ALT [Catalytic activity/Vol] 14 U/L Normal 7-52 [facility] Comment on above: Performed By: #### L [id number] #### [facility] ([facility]) [address] [place] [address] Anion gap [Moles/Vol] 12 mmol/L Normal 7-20 [facility] Comment on above: Performed By: #### L [id number] #### [facility] ([facility]) [address] [place] [address] AST [Catalytic activity/Vol] 14 U/L Normal 13-39 [facility] Comment on above: Performed By: #### L [id number] #### [facility] ([facility]) [address] [place] [address] Bilirubin [Mass/Vol] 0.7 mg/dL Normal 0.3-1.0 [facility] Comment on above: Performed By: #### L [id number] #### [facility] ([facility]) [address] [place] [address] Calcium [Mass/Vol] 10.1 mg/dL Normal 8.6-10.3 [facility] Comment on above: Performed By: #### L [id number] #### [facility] ([facility]) [address] [place] [address] Chloride [Moles/Vol] 108 mmol/L High 98-107 [facility] Comment on above: Performed By: #### L [id number] #### [facility] ([facility]) [address] [place] [address] CO2 [Moles/Vol] 28 mmol/L Normal 21-31 [facility] Comment on above: Performed By: #### L [id number] #### [facility] ([facility]) [address] [place] [address] Creatinine [Mass/Vol] 1.48 mg/dL High 0.70-1.30 [facility] Comment on above: Performed By: #### L [id number] #### [facility] ([facility]) [address] [place] [address] GLOMERULAR FILTRATION RATE ML/MIN/1.73 SQ M.PREDICTED 49.3 mL/min/1.73m*2 Low >60.0 [facility] Comment on above: Result Comment: [facility]???s estimated glomerular filtration rate (eGFR) will [...] individuals. Performed By: #### L [id number] #### [facility] ([facility]) [address] [place] [address] Glucose [Mass/Vol] 107 mg/dL High 70-100 [facility] Comment on above: Performed By: #### L [id number] #### [facility] ([facility]) [address] [place] [address] Potassium [Moles/Vol] 4.8 mmol/L Normal 3.5-5.1 [facility] Comment on above: Performed By: #### L [id number] #### [facility] ([facility]) [address] [place] [address] Protein [Mass/Vol] 6.6 g/dL Normal 6.0-8.3 [facility] Comment on above: Performed By: #### L [id number] #### [facility] ([facility]) [address] [place] [address] Sodium [Moles/Vol] 143 mmol/L Normal 136-145 [facility] Comment on above: Performed By: #### L [id number] #### [facility] ([facility]) [address] [place] [address] Urea nitrogen [Mass/Vol] 30 mg/dL High 7-25 [facility] Comment on above: Performed By: #### L [id number] #### [facility] ([facility]) [address] [place] [address] UREA NITROGEN/CREATININE (MASS RATIO) IN SER/PLAS 20.3 Normal [facility] Comment on above: Performed By: #### L [id number] #### [facility] ([facility]) [address] [place] [address] ESTRADIOLon 02-26-2023 ESTRADIOL (PG/ML) IN SER/PLAS 21.3 pg/mL Low 27-52 [facility] Comment on above: Result Comment: Test Performed by [employer] [address] [place], [place] [id number] - Released 02/26/2023 18:40 Performed By: #### L [id number] #### [facility] [address] [place] [address] FOLLICLE STIMULATING HORMONE on 02-26-2023 FOLLITROPIN (IU/L) IN SER/PLAS 0.5 IU/L Low 1-19 [facility] Comment on above: Result Comment: FSH Normal Ranges for females Normally menstruating females: Follicular phase 4-13 mIU/ml Mid-Cycle peak 5-22 mIU/ml Luteal phase 2-13 mIU/ml Postmenopausal females 20-138 mIU/ml Performed By: #### L [id number] #### [facility] ([facility]) [address] [place] [address] Follow-Upon 02-26-2023 Follow-Up [id number] Trae Pineda 1950 M Date Provider Department Center 02/26/2023 435-[facility]IONY [facility] URO Second Fl No family history on file Level of Service:18717 MD OFFICE/OUTPATIENT ESTABLISHED MOD MDM 30-39 MIN Reason for Visit and Comments: Follow-up [[id number]] - Pt here for follow up, has labs - needs flow,pvr Normal [facility] LUTEINIZING HORMONEon 2022 LUTROPIN (MIU/ML) IN SER/PLAS <0.2 Low 2-12 [facility] Comment on above: Result Comment: LH N ormal Ranges for females Normally menstruating females: Follicular phase 1-18 mIU/ml Mid-Cycle peak 24-105 mIU/ml Luteal phase 0.5-20 mIU/ml Postmenopausal females 15-62 mIU/ml LH Normal Ranges for Males 2-12 mIU/ml Performed By: #### L [id number] #### [facility] ([facility]) [address] [place] [address] Labon 02-26-2023 Lab [id number] Trae Pineda Lorenzo 1950 M Date Provider Department Center 02/26/2023 2245-[facility] OPD LAB RESOURCE [facility] OPD [facility] C No family history on file Normal [facility] PROLACTINon 02-26-2023 PROLACTIN (NG/ML) IN SER/PLAS 4.56 ng/mL Normal 1.61-18.77 [facility] Comment on above: Performed By: #### L [id number] #### [facility] ([facility]) [address] [place] [address] PSA, SCREENINGon 02-26-2023 PROSTATE SPECIFIC AG (NG/ML) IN SER/PLAS 2.0 ng/mL Normal 0.4-4 [facility] Comment on above: Performed By: #### L [id number] ####[facility] ([facility])[address] [place] [address] TESTOSTERONEon 02-26-2023 TESTOSTERONE (NG/DL) IN SER/PLAS 359 ng/dL Normal 220-1000 [facility] Comment on above: Result Comment: Test Performed by [employer] [address] [place] [address] - Released 02/26/2023 19:45 Performed By: #### L [id number] #### [facility] ([facility]) [address] [place] [address] TESTOSTERONE, FREE AND TOTAL , AND SHBGon 02-26-2023 SEX HORMONE BINDING GLOBULIN (NMOL/L) IN SER/PLAS 28 nmol/L Normal 11-80 [facility] Comment on above: Performed By: #### L [id number] #### [facility] [address] [place] [address] TESTOSTERONE (NG/DL) IN SER/PLAS 360 ng/dL Normal 220-1000 [facility] Comment on above: Performed By: #### L [id number] #### [facility] [address] [place] [address] TESTOSTERONE FREE (NG/ML) IN SER/PLAS 79.3 pg/mL Normal 47-244 [facility] Comment on above: Result Comment: The concentration of free testosterone is derived from a mathematical expression based on the constant for the binding of testosterone to albumin and/or sex hormone binding globulin. Test Performed by [employer] [address] [place] [address] - Released 02/26/2023 18:46 Performed By: #### L [id number] #### [facility] [address] [place] [address] TESTOSTERONE, FREE,DIRECT, T OTALon 01-24-2023 Free Testosterone(Direct) 10.1 pg/mL Normal 6.6-18.1 [facility] Comment on above: Result Comment: Perf ormed at: BN Performed By: #### L JENNYFER #### [facility] [address] [place] [address] Dr. Zan Escalante Testosterone [Mass/Vol] 622 ng/dL Normal 264-916 [facility] Comment on above: Result Comment: Adul t male reference interval is based on a population of healthy nonobese males (BMI <30) between 19 and 39 years old. Nate et.al. JCEM 2017,102;6404-3316. PMID: [id number]. Performed at: CB Performed By: #### L JENNYFER #### [facility] [id number] Zan Escalante ESTRADIOLon 01-19-2023 Estradiol 21.4 pg/mL Normal 7.6-42.6 [facility] Comment on above: Result Comment: Anastacio ventura ECLIA methodology Performed By: #### L JENNYFER #### [facility] [id number] Zan Escalante FSHon 01-19-2023 FSH 0.3 mIU/mL Critically low 1.5-12.4 [facility] Comment on above: Performed By: #### L BCFSH #### [facility] [address] [address] [address] Zan Escalante LUTEINIZING HORMONE (LH)on 0 01-19-2023 LH <0.3 Critically low 1.7-8.6 [facility] Comment on above: Performed By: #### L BCLH #### [facility] [address] [address] [address] Zan Escalante PROLACTINon 01-19-2023 Prolactin 6.5 ng/mL Normal 4.0-15.2 [facility] Comment on above: Performed By: #### L BCLH #### [facility] [address] [place] [address] Dr. Zan Escalante SEX HORMONE-BINDING GLOBULIN on 01-19-2023 Sex Horm Binding Glob, Serum 28.3 nmol/L Normal 19.3-76.4 [facility] Comment on above: Performed By: #### S EXHBG #### [facility] [address] [address] [address] Zan Escalante CHEMISTRYOrdered By: Lab ROP User on 12-12-2022 Glucose [Mass/Vol] 157 mg/dL High 55 - 99 mg/dL FTM C POC Subsection POC Device SN [id number] Invalid Interpretation Code [facility] POC Subsection POC User ID [id number] Invalid Interpretation Code [facility] POC Subsection POC Username THOMAS FARR Invalid Interpretation Code [facility] POC Subsection TESTOSTERONE, FREE,DIRECT, T OTALon 09-01-2022 Free Testosterone(Direct) 4.2 pg/mL Critically low 6.6-18.1 [facility] Comment on above: Result Comment: Perf ormed at: BN Performed By: #### T ESTFRD #### [facility] [address] [place] [address] Dr. Zan Escalante Testosterone [Mass/Vol] 171 ng/dL Critically low 264-916 [facility] Comment on above: Result Comment: Adul t male reference interval is based on a population of healthy nonobese males (BMI <30) between 19 and 39 years old. jeancarlos Sullivan.al. JCEM 2017,102;1377-7645. PMID: [id number]. Performed at: CB Performed By: #### T ESTFRD #### [facility] [address] [place] [address] Dr. Zan Escalante ESTRADIOLon 08-30-2022 Estradiol 28.9 pg/mL Normal 7.6-42.6 [facility] Comment on above: Result Comment: Roch lorenzo ECLIA methodology Performed By: #### L BCLH #### [facility] [address] [place] [address] Dr. Zan Escalante FSHon 08-30-2022 FSH 3.0 mIU/mL Normal 1.5-12.4 [facility] Comment on above: Performed By: #### L BCFSH #### [facility] [address] [place] [address] Dr. Zan Escalante LUTEINIZING HORMONE (LH)on LH 5.7 mIU/mL Normal 1.7-8.6 [facility] Comment on above: Performed By: #### L BCLH #### [facility] [address] [place] [address] Dr. Zan Escalante PROLACTINon 08-30-2022 Prolactin 8.6 ng/mL Normal 4.0-15.2 [facility] Comment on above: Performed By: #### L BCLH #### [facility] [address] [place] [address] Dr. Zan Escalante SEX HORMONE-BINDING GLOBULIN on 08-30-2022 Sex Horm Binding Glob, Serum 22.7 nmol/L Normal 19.3-76.4 [facility] Comment on above: Performed By: #### S EXHBG #### [facility] [address] [place] [address] Dr. Zan Escalante ECHOCARDIO M/2D COMPLETEon 0 07-31-2022 ECHOCARDIO M/2D COMPLETE Patient: TRAE PINEDA Exam Date: 07/31/2022 : 1950 Gender:M Ordering : DR MOI MOSS M.D. Admission #: [id number] Family : Order #: [id number] CLICK HERE TO VIEW EXAM ECHOCARDIOGRAM REPORT [...] Moss M.D. on 07/31/2022 at 18:[address] [facility] *URINE CATH CULTUREon 2021 *URINE CATH [...] Susceptible VANCOMYCIN (VA) 1 Susceptible Normal [facility] Comment on above: Order Comment: 1. Ur ine Performed By: #### 3 0478 #### [facility] [address] Operative Reporton 2 Operative Report MR#: [id number] [facility] Pt. Name: Trae Pineda Room #: 0C Discharge Date: Birthdate: 1950 OPERATIVE REPORT DATE OF SURGERY: 07/02/2022 SURGEON: Diony Ariza MD DINING CAR HOP: Kolby ARMANDO PGY3 PREOPERATIVE DIAGNOSIS: Benign prostatic [...] the room agreed. A well lubricated rigid 22-Eritrean cystoscopic sheath with a 30-degree lens was [...] bleeding due to scope trauma so 18 urdu leggett was inserted. Urine was with significant [...] Jarrett MD Date Trans: 07/02/2022 03:30 P/ TATIANA:[id number] cc: Cristobal Kearns D.O. [address] [place] [address] [facility] [id number] [facility] POC GLUCOSE LABon 07-02-2022 Glucose [Mass/Vol] 130 mg/dL High 70-100 [facility] Comment on above: Performed By: #### 8 [id number] #### [facility] [address] [place] [address], [facility] MICROALBUMIN URINEon 022 Albumin, Urine 42.2 ug/mL Normal Not Estab. [facility] Comment on above: Performed By: #### L BCL #### [facility] [address] [place] [address] Dr. Zan Escalante CBC AUTO DIFFon 06-29-2022 BASO # 0.1 103/ul Normal 0.0-0.1 [facility] Comment on above: Performed By: #### C BC #### [facility] [address] [place] [address] Dr. Zan Escalante Basophils/100 WBC (Bld) 1.1 % Normal 0.2-2.0 [facility] Comment on above: Performed By: #### C BC #### [facility] [address] [place] [address] Dr. Zan Escalante EO # 0.6 103/ul Normal 0.0-0.7 [facility] Comment on above: Performed By: #### C BC #### [facility] [address] [place] [address] Dr. Zan Escalante Eosinophils/100 WBC (Bld) 7.0 % Normal 0.9-7.0 [facility] Comment on above: Performed By: #### C BC #### [facility] [address] [place] [address] Dr. Zan Escalante Erythrocyte distribution width (RBC) [Ratio] 13.8 % Normal 11.0-15.0 [facility] Comment on above: Performed By: #### C BC #### [facility] [address] [place] [address] Dr. Zan Escalante Hematocrit (Bld) [Volume fraction] 40.9 % Critically low 42.0-54.0 [facility] Comment on above: Performed By: #### C BC #### [facility] [address] [address] [address] Zan Escalante Hemoglobin (Bld) [Mass/Vol] 13.1 g/dL Critically low 14.0-18.0 [facility] Comment on above: Performed By: #### C BC #### [facility] [address] [address] [address] Zan Escalante IG # 0.04 10e3/ul Critically high 0.00-0.03 [facility] Comment on above: Performed By: #### C BC #### [facility] [address] [place] [address] Dr. Zan Escalante IG % 0.5 % Normal 0.0-0.5 [facility] Comment on above: Performed By: #### C BC #### [facility] [address] [place] [address] Dr. Zan Escalante LYMPH # 3.0 103/ul Normal 1.2-3.8 [facility] Comment on above: Performed By: #### C BC #### [facility] [address] [place] [address] Dr. Zan Escalante Lymphocytes/100 WBC (Bld) 33.4 % Normal 20.5-60.0 [facility] Comment on above: Performed By: #### C BC #### [facility] [address] [place] [address] Dr. Zan Escalante MANUAL DIFF REQ NO Normal [facility] Comment on above: Performed By: #### C BC #### [facility] [address] [place] [address] Dr. Zan Escalante MCH (RBC) [Entitic mass] 29.6 pg Normal 25.9-34.0 [facility] Comment on above: Performed By: #### C BC #### [facility] [address] [place] [address] Dr. Zan Escalante MCHC (RBC) [Mass/Vol] 32.0 g/dL Normal 29.9-35.2 [facility] Comment on above: Performed By: #### C BC #### [facility] [address] [place], [place] [address] Dr. Zan Escalante MCV (RBC) [Entitic vol] 92.3 fL Normal 80.0-94.0 [facility] Comment on above: Performed By: #### C BC #### [facility] [address] [place] [address] Dr. Zan Escalante MONO # 0.8 103/ul Normal 0.3-0.8 [facility] Comment on above: Performed By: #### C BC #### [facility] [address] [place] [address] Dr. Zan Escalante Monocytes/100 WBC (Bld) 9.4 % Normal 1.7-12.0 [facility] Comment on above: Performed By: #### C BC #### [facility] [address] [place] [address] Dr. Zan Escalante NEUT # 4.3 103/ul Normal 1.4-6.5 [facility] Comment on above: Performed By: #### C BC #### [facility] [address] [place] [address] Dr. Zan Escalante Neutrophils/100 WBC (Bld) 48.6 % Normal 43.0-75.0 [facility] Comment on above: Performed By: #### C BC #### [facility] [address] [place] [address] Dr. Zan Escalante Platelet mean volume (Bld) [Entitic vol] 11.2 fL Normal 9.5-13.5 [facility] Comment on above: Performed By: #### C BC #### [facility] [address] [place] [address] Dr. Zan Escalante PLT 185 103/ul Normal 150-450 [facility] Comment on above: Performed By: #### C BC #### [facility] [address] [place] [address] Dr. Zan Escalante RBC 4.43 106/ul Critically low 4.70-6.10 [facility] Comment on above: Performed By: #### C BC #### [facility] [address] [place] [address] Dr. Zan Escalante WBC 8.9 103/ul Normal 4.0-11.0 [facility] Comment on above: Performed By: #### C BC #### [facility] [address] [place] [address] Dr. Zan Escalante Covid-19 PCR ([facility])on 06-18 SARS-CoV-2 (COVID-19) RNA KRISTEL+probe Ql (Unsp spec) Not detected Normal NOT DETECTED [facility] Comment on above: Result Comment: This test is not yet approved or cleared by the [place] FDA. When there are no FDA-approved or cleared tests available, and other criteria are met, FDA can make tests available under an emergency access mechanism called an Emergency Use Authorization (EUA). The EUA for this test is supported by the [employer] of Health and Human Service's (HHS's) declaration [...] SARS-CoV-2. Performed By: #### L [facility] #### [facility] [address] [place] [address] [address] [address] Zan Escalante GLYCOHEMOGLOBIN A1Con 2021 ADA RECOMMENDATION SEE BELOW Normal [facility] Comment on above: Result Comment: ADA RECOMMENDED LIMIT 4.0 - 6.0 ADA THERAPEUTIC TARGET < 7.0 ACTION SUGGESTED > 7.0 Performed By: #### A 1C #### [facility] [address] [place] [address] Dr. Zan Escalante Glucose [Mass/Vol] 143 mg/dL Normal [facility] Comment on above: Performed By: #### A 1C #### [facility] [address] [place], [place] [address] Dr. Zan Escalante HbA1c (Bld) [Mass fraction] 6.6 % Critically high 4.5-6.2 [facility] Comment on above: Performed By: #### A 1C #### [facility] [address] [address] [address] Zan Escalante LIPID PROFILEon 06-29-2022 CHOL-HDL RATIO NORM SEE BELOW Normal [facility] Comment on above: Result Comment: 3.3 - 4.4 LOW RISK 4.4 - 7.1 AVERAGE RISK 7.1 - 11.0 MODERATE RISK >11.0 HIGH RISK Performed By: #### B MP, LIPID #### [facility] [address] [address] [address] Zan Escalante Cholesterol [Mass/Vol] 105 mg/dL Normal <=200 [facility] Comment on above: Performed By: #### B MP, LIPID #### [facility] [address] [address] [address] Zan Escalante Cholesterol in HDL [Mass/Vol] 39 mg/dL Critically low 40-60 [facility] Comment on above: Performed By: #### B MP, LIPID #### [facility] [address] [address] [address] Zan Escalante Cholesterol in LDL [Mass/Vol] 45.0 mg/dL Normal [facility] Comment on above: Performed By: #### B MP, LIPID #### [facility] [address] [place], [place] [address] Dr. Zan Escalante Cholesterol.total/Ch olesterol in HDL [Mass ratio] 2.7 {ratio} Normal [facility] Comment on above: Performed By: #### B MP, LIPID #### [facility] [address] [place], [place] [address] Dr. Zan Escalante HDL NORMAL > or = 60 mg/dl - LO W CARDIOVASCULAR RISK <40 mg/dl - HIGH CARDIOVASCULAR RISK Normal [facility] Comment on above: Performed By: #### B MP, LIPID #### [facility] [address] [place], [place] [address] Dr. Zan Escalante LDL CALC NORMAL SEE BELOW Normal [facility] Comment on above: Result Comment: <100 mg/dl OPTIMAL 100 - 129 mg/dl NEAR OR ABOVE OPTIMAL 130 - 159 mg/dl BORDERLINE HIGH 160 - 189 mg/dl HIGH >190 mg/dl VERY HIGH Performed By: #### B MP, LIPID #### [facility] [address] [place] [address] Dr. Zan Escalante Triglyceride [Mass/Vol] 105 mg/dL Normal <=150 [facility] Comment on above: Performed By: #### B MP, LIPID #### [facility] [address] [place] [address] Dr. Zan Escalante VLDL CALC 21.0 mg/dL Normal [facility] Comment on above: Performed By: #### B MP, LIPID #### [facility] [address] [place] [address] Dr. Zan Escalante PROF CHEM 8 (BAS METB)on Anion gap [Moles/Vol] 12.1 mmol/L Normal [facility] Comment on above: Performed By: #### B MP, LIPID #### [facility] [address] [place] [address] Dr. Zan Escalante Calcium [Mass/Vol] 9.0 mg/dL Normal 8.5-10.[address] [facility] Comment on above: Performed By: #### B MP, LIPID #### [facility] [address] [place] [address] Dr. Zan sEcalante Chloride [Moles/Vol] 106 mmol/L Normal 98-107 [facility] Comment on above: Performed By: #### B MP, LIPID #### [facility] [address] [place] [address] Dr. Zan Escalante CO2 [Moles/Vol] 28.4 mmol/L Normal 21.0-32.0 [facility] Comment on above: Performed By: #### B MP, LIPID #### [facility] [address] [place] [address] Dr. Zan Escalante Creatinine [Mass/Vol] 1.39 mg/dL Critically high 0.70-1.30 [facility] Comment on above: Performed By: #### B MP, LIPID #### [facility] [address] [place] [address] Dr. Zan Escalante EGFR-AF CANADIAN >60 Normal >=60 [facility] Comment on above: Performed By: #### B MP, LIPID #### [facility] [address] [address] [address] Zan Escalante EGFR-NON AF CANADIAN 50 mL/min/1.73m2 Critically low >=60 [facility] Comment on above: Performed By: #### B MP, LIPID #### [facility] [address] [address] [address] Zan Escalante Glucose [Mass/Vol] 96 mg/dL Normal 74-[address] [facility] Comment on above: Performed By: #### B MP, LIPID #### [facility] [address] [address] [address] Zan Escalante Potassium [Moles/Vol] 4.5 mmol/L Normal 3.5-5.1 [facility] Comment on above: Performed By: #### B MP, LIPID #### [facility] [address] [address] [address] Zan Escalante Sodium [Moles/Vol] 142 mmol/L Normal 136-[address] [facility] Comment on above: Performed By: #### B MP, LIPID #### [facility] [address] [address] [address] Zan Escalante Urea nitrogen [Mass/Vol] 23.0 mg/dL Critically high 7.0-18.0 [facility] Comment on above: Performed By: #### B MP, LIPID #### [facility] [address] [place] [address] Dr. Zan Escalante Urea nitrogen/Creatinine [Mass ratio] 16.5 mg/mg Normal [facility] Comment on above: Performed By: #### B MP, LIPID #### [facility] [address] [address] [address] Zan Escalante ESTRADIOLon 04-17-2022 ESTRADIOL 20.7 pg/mL Low 27-52 [facility] [place] Normal [facility] Comment on above: Result Comment: Test Performed by [employer] [address] [place] [id number] - Released 04/17/2022 14:29 Result Comment: Test Performed by [employer] [address] [place] [address] - Released 04/17/2022 14:30 TESTOSTERONE, TOTAL ILon Testosterone [Mass/Vol] 108 ng/dL Low 220-[address] [facility] [address] UROGRAMon 03-13-2022 CT UROGRAM [facility] Department of Radiology [address] [place] [id number] ======== Patient Name: TRAE PINEDA : 1950 Sex: M Age: Race: White Pt. Location: [facility] Patient Status: D Ordered Date: 02/22/2022 4:30:00 PM Completed Date: 03/13/2022 04:53 PM Requesting Provider: LUPIS DENNIS Attending Provider: LUPIS DENNIS Report Copy To: CRISTOBAL KEARNS Signs & Symptoms: R31.0 Gross hematuria I10 History: Chandler, DM? on metformin? kidney dis? YES DM [...] achievable Electronically signed: Aquilino Johnson. Transcribed by: [email or web address], User Resident: Electronically Signed by: AQUILINO JOHNSON @ 03/15/2022 01:05 PM Normal [facility] Vital Signs Date Time Vital Sign Value Performing Clinician Facility 02-14-2024 13:32-0400 Diastolic blood pressure 62 mm[Hg] Margareth De La Cruz [facility] 02-14-2024 13:32-0400 Heart rate 66 /min Margareth De La Cruz [facility] 02-14-2024 13:32-0400 Mean blood pressure 87 mm[Hg] Margareth De La Cruz [facility] 02-14-2024 13:32-0400 Respiratory rate 14 /min Margareth De La Cruz [facility] 02-14-2024 13:32-0400 Systolic blood pressure 136 mm[Hg] Margareth De La Cruz [facility] 01-15-2024 14:27-0500 Heart rate 63 /min Lopez Davis [facility] 01-15-2024 14:27-0500 SaO2% (BldA) [Mass fraction] 100 % John Cannon [facility] 01-15-2024 14:27-0500 Respiratory rate 16 /min John Cannon [facility] 01-15-2024 14:26-0500 Diastolic blood pressure 78 mm[Hg] John Cannon [facility] 01-15-2024 14:26-0500 Mean blood pressure 116 mm[Hg] John Cannon [facility] 01-15-2024 14:26-0500 Systolic blood pressure 192 mm[Hg] John Cannon [facility] 01-15-2024 14:17-0500 Diastolic blood pressure 76 mm[Hg] John Cannon [facility] 01-15-2024 14:17-0500 Heart rate 66 /min John Cannon [facility] 01-15-2024 14:17-0500 Respiratory rate 14 /min John Cannon [facility] 01-15-2024 14:17-0500 SaO2% (BldA) [Mass fraction] 96 % John Cannon [facility] 01-15-2024 14:17-0500 Systolic blood pressure 143 mm[Hg] John Cannon [facility] 01-15-2024 13:42-0500 gluc 128 mg/dL John Cannon [facility] Comment on above: Result Comment: per pt's meter on right arm 01-15-2024 13:30-0500 Heart rate 60 /min John Cannon [facility] 01-15-2024 13:30-0500 SaO2% (BldA) [Mass fraction] 99 % John Cannon [facility] 01-15-2024 13:30-0500 Body temperature 97.34 [degF] John Cannon [facility] 01-15-2024 13:30-0500 Diastolic blood pressure 78 mm[Hg] John Cannon [facility] 01-15-2024 13:30-0500 Mean blood pressure 111 mm[Hg] John Cannon [facility] 01-15-2024 13:30-0500 Systolic blood pressure 175 mm[Hg] John Cannon [facility] 01-15-2024 13:29-0500 Respiratory rate 14 /min John Cannon [facility] 12-16-2023 10:23-0500 Diastolic blood pressure 66 mm[Hg] Margareth De La Cruz [facility] 12-16-2023 10:23-0500 Heart rate 70 /min Margareth De La Cruz [facility] 12-16-2023 10:23-0500 Mean blood pressure 92 mm[Hg] Margareth De La Cruz [facility] 12-16-2023 10:23-0500 Respiratory rate 14 /min Margareth De La Cruz [facility] 12-16-2023 10:23-0500 Systolic blood pressure 144 mm[Hg] Margareth De La Cruz [facility] 11-12-2023 10:00-0500 Body height 182.88 cm Cristobal Ball Other [email or web address] Other 11-12-2023 10:00-0500 Body mass index (BMI) [Ratio] 32.46 kg/m2 Cristobal Ball Other [email or web address] Other 11-12-2023 10:00-0500 Body weight 108.59 kg Cristobal Ball Other [employer] Other 11-12-2023 10:00-0500 Diastolic blood pressure 76 mm[Hg] Cristobal Ball Other [employer] [facility] [employer] Other 11-12-2023 10:00-0500 Respiratory rate 16 /min Cristobal Ball Other [facility] [employer] Other 11-12-2023 10:00-0500 Systolic blood pressure 137 mm[Hg] Cristobal Ball Other [facility] [employer] Other 11-08-2023 10:58-0500 Diastolic blood pressure 71 mm[Hg] Margareth De La Cruz [facility] 11-08-2023 10:58-0500 Heart rate 63 /min Margareth De La Cruz [facility] 11-08-2023 10:58-0500 Mean blood pressure 93 mm[Hg] Margareth De La Cruz [facility] 11-08-2023 10:58-0500 Respiratory rate 15 /min Margareth De La Cruz [facility] 11-08-2023 10:58-0500 Systolic blood pressure 136 mm[Hg] Margareth De La Cruz [facility] 09-06-2023 11:09-0400 Diastolic blood pressure 77 mm[Hg] Margareth De La Cruz [facility] 09-06-2023 11:09-0400 Heart rate 59 /min Margareth De La Cruz [facility] 09-06-2023 11:09-0400 Mean blood pressure 106 mm[Hg] Margareth De La Cruz [facility] 09-06-2023 11:09-0400 Respiratory rate 16 /min Margareth De La Cruz [facility] 09-06-2023 11:09-0400 Systolic blood pressure 163 mm[Hg] Margareth De La Cruz [facility] 08-06-2023 14:22-0400 Heart rate 59 /min Himanshu Adriana [facility] 08-06-2023 14:22-0400 SaO2% (BldA) [Mass fraction] 99 % Himanshu Adriana [facility] 08-06-2023 14:22-0400 Diastolic blood pressure 91 mm[Hg] Himanshu Adriana [facility] 08-06-2023 14:22-0400 Mean blood pressure 107 mm[Hg] Himanshu Adriana [facility] 08-06-2023 14:22-0400 Systolic blood pressure 139 mm[Hg] Himanshu Adriana [facility] 08-06-2023 14:15-0400 Diastolic blood pressure 80 mm[Hg] Himanshu Adriana [facility] 08-06-2023 14:15-0400 Heart rate 58 /min Himanshu Adriana [facility] 08-06-2023 14:15-0400 SaO2% (BldA) [Mass fraction] 97 % Himanshu Adriana [facility] 08-06-2023 14:15-0400 Systolic blood pressure 146 mm[Hg] Himanshugerardo Wright [facility] 08-06-2023 13:52-0400 Respiratory rate 14 /min Himanshu Wright [facility] 08-06-2023 13:00-0400 Body temperature 98.06 [degF] Himanshu Wright [facility] 08-06-2023 13:00-0400 Diastolic blood pressure 70 mm[Hg] Himanshu Wright [facility] 08-06-2023 13:00-0400 Heart rate 67 /min Himanshu Wright [facility] 08-06-2023 13:00-0400 Systolic blood pressure 144 mm[Hg] Himanshu Wright [facility] 07-02-2023 14:17-0400 Diastolic blood pressure 71 mm[Hg] Margareth [employer] [facility] 07-02-2023 14:17-0400 Heart rate 61 /min Margareth [employer] [facility] 07-02-2023 14:17-0400 Mean blood pressure 97 mm[Hg] Margareth [employer] [facility] 07-02-2023 14:17-0400 Respiratory rate 14 /min Margareth [employer] [facility] 07-02-2023 14:17-0400 Systolic blood pressure 148 mm[Hg] Margareth [employer] [facility] 01-11-2023 13:43-0500 Diastolic blood pressure 75 mm[Hg] Margareth [employer] [facility] 01-11-2023 13:43-0500 Heart rate 76 /min Margareth [employer] [facility] 01-11-2023 13:43-0500 Mean blood pressure 105 mm[Hg] Margareth De La Cruz [facility] 01-11-2023 13:43-0500 Respiratory rate 18 /min Margareth De La Cruz [facility] 01-11-2023 13:43-0500 Systolic blood pressure 166 mm[Hg] Margareth De La Cruz [facility] 01-08-2023 13:30-0500 Body height 182.88 cm Cristobal [employer] Other [employer] [facility] [employer] Other 01-08-2023 13:30-0500 Body mass index (BMI) [Ratio] 32.11 kg/m2 Cristobal Ball Other [employer] [facility] [employer] Other 01-08-2023 13:30-0500 Body weight 107.41 kg Cristobal Ball Other [email or web address] Other 01-08-2023 13:30-0500 Diastolic blood pressure 70 mm[Hg] Cristobal Ball Other [email or web address] Other 01-08-2023 13:30-0500 Respiratory rate 16 /min Cristobal Ball Other [email or web address] Other 01-08-2023 13:30-0500 Systolic blood pressure 126 mm[Hg] Cristobal Ball Other [email or web address] Other 12-12-2022 11:00-0500 Heart rate 73 /min Tutu Guzman [facility] 12-12-2022 11:00-0500 SaO2% (BldA) [Mass fraction] 98 % Tutu Guzman [facility] 12-12-2022 11:00-0500 Diastolic blood pressure 75 mm[Hg] Tutu Zumbar [facility] 12-12-2022 11:00-0500 Mean blood pressure 108 mm[Hg] Tutu Zumbar [facility] 12-12-2022 11:00-0500 Systolic blood pressure 173 mm[Hg] Tutu Zumbar [facility] 12-12-2022 10:51-0500 Diastolic blood pressure 88 mm[Hg] Tutu Zumbar [facility] 12-12-2022 10:51-0500 Heart rate 71 /min Tutu Zumbar [facility] 12-12-2022 10:51-0500 Respiratory rate 16 /min Tutu Zumbar [facility] 12-12-2022 10:51-0500 SaO2% (BldA) [Mass fraction] 96 % Tutu Zumbar [facility] 12-12-2022 10:51-0500 Systolic blood pressure 157 mm[Hg] Tutu Zumbar [facility] 12-12-2022 10:13-0500 Heart rate 75 /min Tutu Zumbar [facility] 12-12-2022 10:13-0500 SaO2% (BldA) [Mass fraction] 97 % Tutu Zumbar [facility] 12-12-2022 10:13-0500 Body temperature 97.88 [degF] Tutu Zumbar [facility] 12-12-2022 10:12-0500 Diastolic blood pressure 76 mm[Hg] Tutu Zumbar [facility] 12-12-2022 10:12-0500 Mean blood pressure 108 mm[Hg] Tutu Zumbar [facility] 12-12-2022 10:12-0500 Systolic blood pressure 170 mm[Hg] Tutu Zumbar [facility] 12-12-2022 10:10-0500 Respiratory rate 16 /min Tutu Zumbar [facility] 11-08-2022 15:04-0500 Diastolic blood pressure 76 mm[Hg] Tutu Zumbar [facility] 11-08-2022 15:04-0500 Heart rate 62 /min Uttu Zumbar [facility] 11-08-2022 15:04-0500 Mean blood pressure 108 mm[Hg] Tutu Zumbar [facility] 11-08-2022 15:04-0500 Respiratory rate 14 /min Tutu Zumbar [facility] 11-08-2022 15:04-0500 Systolic blood pressure 173 mm[Hg] Tutu Zumbar [facility] Encounters Encounter Date Encounter Type Care Provider Facility Start: 02-14-2024 End: 02-14-2024 Pain Management Margareth De La Cruz [facility] Start: 02-11-2024 End: 02-11-2024 ambulatory Cristobal Kearns Other [email or web address] Other Start: 02-11-2024 Telephone encounter Cristobal Kearns [facility] Start: 01-20-2024 End: 01-20-2024 ambulatory [facility] Start: 01-15-2024 End: 01-16-2024 ambulatory John aCnnon Facility:[facility] Start: 01-15-2024 End: 01-15-2024 Pain Management John Cannon [facility] Start: 01-01-2024 End: 01-02-2024 [facility] Start: 12-16-2023 End: 12-17-2023 ambulatory TRINY De La Cruz Facility:[facility] Start: 12-16-2023 End: 12-16-2023 Pain Management Margareth De La Cruz [facility] Start: 12-10-2023 End: 12-10-2023 ambulatory DIONY [facility] Start: 11-27-2023 End: 11-27-2023 ambulatory Cristobal Kearns Other [email or web address] Other Start: 11-27-2023 Telephone encounter Cristobal TELLEZ [facility] Start: 11-19-2023 End: 11-19-2023 ambulatory Cristobal Kearns Other [email or web address] Other Start: 11-19-2023 Telephone encounter Cristobal Kearns ROSALINDA [facility] Start: 11-14-2023 End: 11-14-2023 ambulatory Cristobal Kearns Other [email or web address] Other Start: 11-14-2023 Telephone encounter Cristobal Kearns ROSALINDA [facility] Start: 11-12-2023 End: 11-12-2023 ambulatory Cristobal Kearns Other [email or web address] Other Start: 11-12-2023 Office outpatient vi sit 25 minutes Cristobal Kearns [facility] Start: 11-08-2023 End: 11-09-2023 ambulatory CRISTOBAL KEARNS Facility:[facility] Start: 11-08-2023 End: 11-08-2023 Pain Management Margareth De La Cruz [facility] Start: 10-28-2023 End: 10-29-2023 ambulatory [facility] Start: 09-06-2023 End: 09-07-2023 ambulatory PA-Reid De La Cruz Facility:[facility] Start: 09-06-2023 End: 09-06-2023 Pain Management Margareth De La Cruz [facility] Start: 09-04-2023 End: 09-04-2023 ambulatory Cristobal Kearns Other [email or web address] Other Start: 09-04-2023 Telephone encounter Cristobal TELLEZ [facility] Start: 09-03-2023 End: 09-03-2023 ambulatory [facility] Start: 08-21-2023 End: 08-21-2023 ambulatory Cristobal Kearns Other [email or web address] Other Start: 08-21-2023 Telephone encounter Cristobal ETLLEZ [facility] Start: 08-06-2023 End: 08-07-2023 ambulatory Himanshu Wright Facility:[facility] Start: 08-06-2023 End: 08-06-2023 Pain Management Himanshu Wright [facility] Start: 07-23-2023 End: 07-23-2023 ambulatory Cristobal Kearns Other [email or web address] Other Start: 07-23-2023 Telephone encounter Cristobal Kearns [facility] Start: 07-02-2023 End: 07-03-2023 ambulatory PA-C Margareth De La Cruz Facility:[facility] Start: 07-02-2023 End: 07-02-2023 Pain Management Margareth De La Cruz [facility] Start: 06-04-2023 End: 06-04-2023 ambulatory [facility] Start: 05-28-2023 ambulatory DIONY SINDHWANI [facility] Start: 05-28-2023 End: 05-28-2023 ambulatory HARPREET WATSON [facility] Start: 03-19-2023 End: 03-19-2023 ambulatory Cristobal Kearns Other [employer] [facility] [employer] Other Start: 03-19-2023 Office outpatient vi sit 15 minutes Cristobal Kearns [facility] Start: 03-08-2023 End: 03-08-2023 ambulatory Cristobal Kearns Other [facility] [employer] Other Start: 03-08-2023 Telephone encounter Cristobal Kearns [facility] Start: 03-07-2023 Telephone encounter Cristobal TELLEZ [facility] Start: 03-07-2023 End: 03-08-[address] CRISTOBAL KEARNS [facility] [employer] Other Start: 02-26-2023 Telephone encounter Cristobal TELLEZ [facility] Start: 02-26-2023 End: 02-26-2023 [facility] [employer] Other Start: 01-18-2023 Telephone encounter Cristobal TELLEZ [facility] Start: 01-18-2023 End: 01-19-[address] DOCTOR ADAMS [facility] [employer] Other Start: 01-11-2023 End: 01-11-2023 Pain Management Margareth De La Cruz [facility] Start: 01-08-2023 End: 01-08-2023 ambulatory Cristobal Kearns Other [facility] [employer] Other Start: 01-08-2023 Office outpatient vi sit 25 minutes Cristobal Kearns [facility] Start: 12-12-2022 End: 12-12-2022 Pain Management Tutu Guzman [facility] Start: 11-23-2022 End: 11-23-[address] CRISTOBAL KEARNS Facility:[facility] Start: 11-18-2022 End: 11-22-[address] CRISTOBAL KEARNS Facility:[facility] Start: 11-08-2022 End: 11-08-2022 Patient encounter procedure Tutu Guzman [facility] Start: 11-08-2022 End: 11-08-2022 Pain Management Tutu Guzman [facility] Start: 08-29-2022 End: 08-30-[address] DOCTOR ADAMS Facility:[facility] Start: 07-31-2022 End: 08-01-[address] MOI MOSS Facility:[facility] Start: 07-02-2022 Encounter for preprocedural laboratory examination DR CRISTOBAL KEARNS [facility] Start: 06-29-2022 End: 06-30-2022 Encounter for preprocedural laboratory examination DR CRISTOBAL KEARNS Facility:[facility] Start: 06-29-2022 End: 06-30-[address] CRISTOBAL KEARNS Facility:[facility] Start: 06-14-2022 End: 11-17-[address] CRISTOBAL KEARNS Facility:[facility] Start: 03-13-2022 End: 03-14-2022 ambulatory LUPIS DENNIS Facility:[facility] Procedures Date Procedure Procedure Detail Performing Clinician Start: 01-15-2024 Epidural injection o f lumbar spine using fluoroscopic guidance [employer] Comment on above: 0% relief Start: 08-06-2023 Injection of nerve r oot of lumbar spine using fluoroscopic guidance [employer] Comment on above: bilat L5/S1 TFESI- 9 0% relief x 2 weeks Start: 12-12-2022 Injection of nerve r oot of lumbar spine using fluoroscopic guidance [employer] Comment on above: L5-S1-90% relief Start: 04-17-2022 PSA screening LUPIS DENNIS Comment on above: Performed By: #### 4 [id number] #### [address] [place] [address], [facility] Start: 11-22-2021 Injection of nerve r oot of lumbar spine using fluoroscopic guidance Tutu Guzman Comment on above: Bilateral L5 TFESI-9 0-95% relief Start: 07-01-2020 Epidural steroid injection Tutu Guzman Comment on above: bilat L5 TFESI- 100% relief x 2 weeks now down to 50% Coronary bypass gustabo t angiography Tutu Guzman Comment on above: 2004 Decompression of med oleksandr nerve [facility] Comment on above: right 2012 Fracture of ankle (disorder) Tutushelli Guzman Comment on above: 1989 Klippel-Feil sequenc e (disorder) Tutu [employer] Comment on above: disc herniation and fusion 2007 Laminectomy Tutushelli Guzman Marqeta Comment on above: nov 2019 Immunizations Immunization Date Immunization Notes Care Provider Kiki bautista 09-05-2022 influenza, high dose seasonal, preservative-free Cristobal Kearns Other [email or web address] Other 08-21-2021 influenza virus vaccine, split virus (incl. purified surface antigen) Cristobal Kearns Other [email or web address] Other 08-11-2021 COVID-19 Vaccine Pfi zer - Documentation Purposes Only Cristobal Kearns Other [email or web address] Other 01-10-2021 COVID-19 Vaccine Pfi zer - Documentation Purposes Only Cristobal Kearns Other [email or web address] Other 12-20-2020 COVID-19 Vaccine Pfi zer - Documentation Purposes Only Cristobal Kearns Other [email or web address] Other 08-12-2020 zoster vaccine, live Benjami yonathan Kearns Other [email or web address] Other 07-27-2020 influenza virus vaccine, split virus (incl. purified surface antigen) Cristobal Kearns Other [email or web address] Other 08-26-2019 influenza virus vaccine, split virus (incl. purified surface antigen) Cristobal Kearns Other [email or web address] Other 10-29-2018 influenza virus vaccine, split virus (incl. purified surface antigen) Cristobal Kearns Other [email or web address] Other 07-19-2017 influenza virus vaccine, split virus (incl. purified surface antigen) Cristobal Kearns Other [email or web address] Other 10-09-2016 influenza virus vaccine, split virus (incl. purified surface antigen) Cristobal Kearns Other [email or web address] Other 10-18-2015 influenza virus vaccine, split virus (incl. purified surface antigen) Cristobal Kearns Other [email or web address] Other 09-20-2015 pneumococcal conjuga te vaccine, 13 valent Cristobal Kearns Other [email or web address] Other 11-07-2012 pneumococcal polysaccharide vaccine, 23 valent Cristobal Kearns Other [email or web address] Other Payers Date Payer Category Payer Private Health Insurance [id number] 1950 Unknown [id number] 2.16.8 [id number] 1950 Unknown [id number] 2.16.84 [id number] 1950 Unknown [id number] 2.16.84 0.1.052837.3.579.2.593 1950 Unknown [id number] 2.16.84 0.1.173617.3.579.2.593 1950 Unknown [id number] 2.16.84 0.1.864191.3.579.2.593 1950 Unknown [id number] 2.16.84 0.1.059754.3.579.2.593 1950 Unknown [id number] 2.16.84 0.1.017090.3.579.2.593 1950 Unknown [id number] 2.16.84 0.1.085042.3.579.2.593 1950 Unknown [id number] 2.16.84 0.1.487654.3.579.2.593 1950 Unknown [id number] 2.16.84 0.1.381517.3.579.2.593 1950 Unknown [id number] 2.16.8 40.1.053323.3.579.2.727 1950 Unknown [id number] 2.16.8 40.1.860570.3.579.2.727 1950 Unknown [id number] 2.16.8 40.1.741097.3.579.2.727 1950 Unknown [id number] 2.16.8 40.1.232854.3.579.2.727 1950 Unknown [id number] 2.16.8 40.1.149384.3.579.2.727 1950 Unknown [id number] 2.16.8 [id number] Social History Date Type Detail Facility Start: 10-05-2021 Tobacco smoking status Ex-smoker (fi nding) [facility] Comment on above: Quit in 1982 Sex Assigned At Male [facility] Medical Equipment Procedure Code Equipment Code Equipment Origin al Text Equipment Identifier Dates Start: 04-09-2023 Functional Status Date Assessment Result Facility 02-14-2024 Functional Status N/A [facility] 01-15-2024 Functional Status N/A [facility] 12-16-2023 Functional Status N/A [facility] 11-08-2023 Functional Status N/A [facility] 09-06-2023 Functional Status N/A [facility] 08-06-2023 Functional Status N/A [facility] 07-02-2023 Functional Status N/A [facility] 01-11-2023 Functional Status N/A [facility] 12-12-2022 Functional Status N/A [facility] 11-08-2022 Functional Status N/A [facility] Clinical Notes 01-08-2023 to 02-14-2024 Note Date [...] Provider:Margareth De La Cruz PA-C Location:FT.Pain Mgmt [place] Appointment Type:Pain Management - Follow Up (FT) [facility]2024 NoteUT Cardiology - [facility] Subjective Trae Pineda is a 73 y.o. year old male patient being seen for 6 mo follow up CAD, hypertension, hyperlipidemia, and carotid artery stenosis. Had carotid US at [facility] a few weeks ago. 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 His physical activ (more content not included)...[facility]02-28-2024 [id number] NoteDiagnosis: M54.16, lumbar radiculopathy Procedure: L5/S1 [...] the epidural space was confirmed using the pcht-ur-xnkfgxpmlu technique and 2 cc of air. Injection [...] procedure, and agrees to continue currently prescribed/recommended therapies.[facility] Comment on above:Result Comment: Electronically Signed By: John Cannon DO\.br\Date and Time Signed: 01/15/24 14:23 [id number] Evaluation + Plan note Extracted from: Title:L5/S1 [...] the epidural space was confirmed using the lmxq-zh-aljlrqcijh technique and 2 cc of air. Injection [...] PM Scheduled Provider:Margareth De La Cruz PA-C Location[facility] Appointment Type:Pain Management - Follow Up (FT) [facility]01-29-2024 Evaluation + Plan noteExtracted from: Title:Pain Managment [...] will follow-up as above-mentioned LEONOR score: 48% [facility]01-23-2024 NoteU[facility] Clinic H&P Dr. Diony Ariza MD [...] bacterial prostatitis COPD (chronic obstructive pulmonary disease) ([facility]) Coronary artery disease, non-occlusive Depression Diabetes mellitus (CMS/HCC) Erectile dysfunction Hyperlipemia Hypertension Hypogonadism in male Kidney stone Sleep apnea CPAP DEPENDENT Past Surgical History: Past Surgical History: Procedure Laterality (more content not included)...[facility]01-02-2024 Evaluation note* Encounter Date Diagnosis Assessment Notes Treatment Notes Treatment Clinical Notes Nov, Pulmonary nodule (ICD-10 - R91.1) CT: RML 4mm nodule - 02/2022, CT: RML 7mm nodule - 02/2023 CT: stable - 08/2023Nov, Right carotid bruit (ICD-10 - R09.89) Carotid US: 50-69% stenosis - 2019, Carotid US: < 50% ICA w/ 75% right carotid bulb - 08/2021 [email or web address] Other 12-28-2023 Evaluation note* Encounter Date Diagnosis Assessment Notes Treatment Notes Treatment Clinical Notes Oct, 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 (ICD-10 - E11.3291) [email or web address] Other 12-26-2023 Evaluation note* Encounter Date Diagnosis [...] use, the patient reduces the risk for ME, CVA, HTN, cardiac dysrhythmias and sudden cardiac [...] index [BMI] 32.0-32.9, adult (ICD-10 - Z68.32) [email or web address] Other [id number] Evaluation + Plan noteExtracted from: Title:Pain Managment [...] Scheduled Provider:Margareth De La Cruz PA-C Location:.[facility] Appointment Type:Pain Management - Follow Up (FT) [facility]12-21-2023 NotePrior auth obtained for Yolanda- Paulina [id number] - [place] APPROVED 11/07/2023. STATUS APPROVED. COVERAGE START DATE 10/08/2023 END DATE 11/06/2024.[facility]12-11-2023 NotePatient: Trae Ventura Edwin Procedure Summary Date: 10/28/23 Room / Location: [facility] OPERATING ROOM 07 / [facility] Operating Room Anesthesia Start: 735 Anesthesia [...] PACU per anesthesia protocol. No notable events documented.[facility]12-11-2023 Note Patient: Trae Pineda Procedure Summary Date: 10/28/23 Room / Location: [facility] OPERATING ROOM / [facility] Operating Room Anesthesia Start: 735 Anesthesia [...] direct observation Transport: uneventful [facility] condition [facility] Note Patient: Trae Pineda Procedure Information Date/Time: 10/28/23729 Procedure: CYSTOURETHROSCOPY, WITH RETROGRADE PYELOGRAM (Bilateral) - C-ARM Location: [facility] OPERATING ROOM 07 / [facility] Operating Room Surgeons: Diony Ariza MD Relevant Problems Cardio tolerates >4 METs without chest pain, SOB (+) Benign essential hypertension (+) Coronary arteriosclerosis in [place] artery (+) Hypertensive disorder Endo (+) Type [...] discussed with attending and resident. Additional Equipment [facility]sGerman [facility]12-[facility]23 Note History and Physical Patient: Trae [...] bacterial prostatitis COPD (chronic obstructive pulmonary disease) ([facility]) Coronary artery disease, non-occlusive Depression Diabetes mellitus ([facility]) Erectile dysfunction Hyperlipemia Hypertension Hypogonadism in male [...] THE MORNING 10/01/23 Moises Aguirre NP Allergies: Byqjczi-emz-oex reductase inhibitors and Hydralazine Social History: Social [...] Hypogonadism Plan: OR tod (more content not included)...[facility] 09-06-2023 Evaluation + Plan noteExtracted from: [...] Scheduled Provider:Margareth De La Cruz PA-C Location:FT.[facility] Appointment Type:Pain Management - Follow Up (FT) [facility]10-18-2023 Evaluation note* Encounter Date Diagnosis Assessment Notes Treatment Notes Treatment Clinical Notes Aug, Pulmonary nodule (ICD-10 - R91.1) CT: RML 4mm nodule - 02/2022, CT: RML 7mm nodule - 02/2023 CT: stable - 08/2023 [email or web address] Other [id number] NoteUrology Clinic H&P Dr. Diony Ariza MD [...] today as he got it done in [place] but it was a send out lab. [...] Date Anxiety COPD (chronic obstructive pulmonary disease) ([facility]) Coronary artery disease, non-occlusive Depression Diabetes mellitus ([facility]) Hyperlipemia Hypertension Past Surgical History: Past Surgical [...] TAKE 1 TAB (more content not included)... [facility]10-04-2023 Evaluation note* Encounter Date Diagnosis Assessment Notes Treatment Notes Treatment Clinical Notes Aug, Pulmonary nodule (ICD-10 - R91.1) [email or web address] Other 09-19-2023 Note [id number] 07-02-2023 Evaluation + Plan noteExtracted from: [...] clinic sooner if necessary. 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 March, Chronic bronchitis, mucopurulent (ICD-10 - J41.1) Mucinex DM as needed. Push fluids [email or web address] Other 04-20-2023 Evaluation note* Encounter Date Diagnosis Assessment Notes Treatment Notes Treatment Clinical Notes Feb, Pulmonary nodule (ICD-10 - R91.1) CT: RML 4mm nodule - 02/2022 CT: RML 7mm nodule - 02/2023 [email or web address] Other 04-11-2023 Evaluation note* Encounter Date Diagnosis Assessment Notes Treatment Notes Treatment Clinical Notes Feb, Pulmonary nodule (ICD-10 - R91.1) [email or web address] Other 04-11-2023 NoteUrology Clinic H&P Dr. Diony [...] medications on file prior to visit. Allergies: Ikkmkvx-wxw-krm reductase inhibitors and Hydralazine Social History: Social [...] on file [facility] (more content not included)...[facility] 01-11-2023 Evaluation + Plan noteExtracted from: [...] require a repeat injection. 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 (ICD-10 - Z79.4) [...] 02/2022 Serial LDCT for lung cancer detection [email or web address] Other Evaluation + Plan note No data available for this section [facility] Future Appointments Appointment Date:01/11/2023 01:45:00 PM Scheduled Provider:Margareth De La Cruz PA-C Location:FT.[facility] [place] Appointment Type:Pain Management - Follow Up (FT) [facility] Future Appointments Appointment Date:09/06/2023 11:00:00 AM Scheduled Provider:Margareth De La Cruz PA-C Location:FT.[facility] [place] Appointment Type:Pain Management - Follow Up (FT) [facility] noteNo InformationNocox south [employer] Other History general Narrative - Reported* Type [...] gross Medical History 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, 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 Medical History Arteriosclerosis of abdominal ao [...] Triple bypass Hospitalization History see sx history [email or web address] Other History general Narrative - Reported* Type [...] gross Medical History 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, 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 Medical History Arteriosclerosis of abdominal ao [...] Triple bypass Hospitalization History see sx history [email or web address] Other Hospital Discharge instructions No data available for this section [facility] No data available for this section [facility] Summary Purpose Family History No Family History [...] section and content) DATE CREATED AUTHOR 07/24/2022 [facility] DATE CREATED AUTHOR AUTHOR'S ORGANIZ ATION 03/11/2023 [facility] DATE CREATED AUTHOR AUTHOR'S ORGANIZ ATION 01/18/2024 [facility] DATE CREATED AUTHOR AUTHOR'S ORGANIZ ATION 01/27/2024 [facility] Patient Care team informatio n (unrecognized section and content) Personnel Name: CRISTOBAL KEARNS DO Address: Address: [address] [place] [address] Personnel Name: CRISTOBAL KEARNS DO Address: Address: [address] [place] [address] Personnel Name: CRISTOBAL KEARNS DO Address: Address: [address] [facility], [place], [place] [address]- Personnel Name: CRISTOBAL KEARNS DO Address: Address: [address] [facility], [place], [place] [address]- Personnel Name: CRISTOBAL KEARNS DO Address: Address: [address] [facility], [place], [address] Personnel Name: CRISTOBAL KEARNS DO Address: Address: [address] [facility], [place], [address] Personnel Name: CRISTOBAL KEARNS DO Address: Address: [address] [facility], [place], [address] Personnel Name: CRISTOBAL KEARNS DO Address: Address: [address] [facility], [place], [address] Personnel Name: CRISTOBAL KEARNS DO Address: Address: [address] [facility], [place], [place] [address]- Personnel Name: CRISTOBAL KEARNS DO Address: Address: [address] [facility], [place], [address] Personnel Name: CRISTOBAL KEARNS DO Address: Address: [address] [facility], [place], [address] REASON FOR VISIT (unrecogniz ed section [...] BE BASED ON THE PRIMARY CLINICAL RECORDS. [facility]. provides no warranty or guarantee of the accuracy or completeness of information in this document.
[2024-03-04 10:09] LABS: Prostate Specific Antigen Dx 2.38 ng/mL (<=4.00)
[2024-03-05 08:12] LABS: Estradiol 38.4 pg/mL (7.6-42.6); Sex Horm Binding Glob, Serum 31.7 nmol/L (19.3-76.4)
[2024-03-08 22:06] LABS: Free Testosterone(Direct) 5.3 pg/mL (6.6-18.1); Testosterone 518 ng/dL (264-916)
== END 2024-03-04 09:06 | disposition home or self-care (01) ==
LOC: LAB 09:06
PROVIDERS: PCP Internal Medicine
DX: E11.65 Type 2 diabetes mellitus with hyperglycemia (principal); N40.1 Benign prostatic hyperplasia with lower urinary tract symptoms; R39.14 Feeling of incomplete bladder emptying; N41.1 Chronic prostatitis; E29.1 Testicular hypofunction
CPT/HCPCS: 36415; 82670; 83036; 84153; 84270; 84402; 84403

== ENCOUNTER 2024-07-27 10:14 | Outpatient (OUT) | payer MEDICARE, SELFPAY ==
--- OUTSIDE RECORDS SUMMARY | 2024-07-27 10:39 | XMS_ITS | CCD ---
Author Organization [facility] Care Team Providers Care Cook Dinner Name Role Phone LUPIS DENNIS Admitting Unavailable LUPIS DENNIS Attending Unavailable BALL, CRISTOBAL Referring Unavailable BALL, CRISTOBAL Primary Care Unavailable SOM, CRISTOBAL Primary Care Physician Som, Cristobal Unavailable SOM, DR DON Admitting Unavailable BALL, DR DON Attending Unavailable BALL, DR DON Primary Care Unavailable BALL, DR DON Consulting Unavailable MOUKARBEL, DR PRATER Admitting Unavailable MOUKARBEL, DR PRATER Attending Unavailable BALL, DR ODN Primary Care Unavailable MOUKARBEL, DR PRATER Consulting [...] MOSLEY Consulting Unavailable CRISTOBAL KEARNS Referring Unavailable De La Cruz, Margareth Admitting Unavailable De La Cruz, Margareth Attending Unavailable BALL, CRISTOBAL Referring Unavailable De La Cruz, Margareth Attending Unavailable De La Cruz, TRINY Zuluaga Admitting Unavailabl e BALLCRISTOBAL Referring Unavailable De La Cruz, Margareth Attending Unavailable De La Cruz, TRINY Zuluaga Admitting Unavailabl e De La Cruz, Margareth Attending Unavailable BALL, CRISTOBAL Referring Unavailable Adriana, MD Himanshu D Admitting Unavailable Himanshu Wright Referring Unavailable Himanshu Wright Attending Unavailable John Cannon Referring Unavailable John Cannon Attending Unavailable John Cannon Admitting Unavailable CRISTOBAL KEARNS Referring Unavailable Jono, Margareth Attending Unavailable TRINY De La Cruz Margareth Admitting Unavailabl e SOM, CRISTOBAL Referring Unavailable Jono, Margareth Attending Unavailable TRINY De La Cruz Admitting Unavailabl e BALL, CRISTOBAL Referring Unavailable De La Cruz, Margareth Attending Unavailable De La CruzTRINY Margareth Admitting Unavailabl e SINDHWANI, DIONY Attending Unavailable SINDHWANI, DIONY Attending Unavailable SINDHWANI, DIONY Attending Unavailable MOUKAMOI TEJADA Referring Unavailable SINDHWANI, DIONY Referring Unavailable SINDHWANI, DIONY Attending Unavailable HARPREET WATSON Attending Unavailable MOUKARBELMOI Attending Unavailable SINDHWANI, DIONY Attending Unavailable SAVZYAN, MORENITA Attending Unavailable SINDHWANI, DIONY Admitting Unavailable SINDHWANI, DIONY Attending Unavailable MOUKARBELMOI Attending Unavailable Allergies Allergy Classification Reported Allergen(s) Allergy Type Date of Onset Reaction(s) Facility (3 sources) black walnut pollen extract; Translations: [[id number] REDUCTASE INHIBITORS] Drug Allergy 01-27-2013 [facility] Repository (14 sources) HMG-CoA reductase inhibitor; Translations: [statins] Drug allergy muscle ache [facility] (15 sources) hydrALAZINE; Translations: [hydralazine] Drug Allergy 07-25-[address] [facility] Medications Current Medications Medication Drug Class(es) Dates Sig (Normalized) Sig (Original) Tylenol (18 sources) Start: 03-25-2013 Tylenol 500 mg , [...] Alpha Lipoic Acid 600 mg oral capsule (13 sources) Start: 10-05-2021 take 1 capsule by mouth once daily Alpha Lipoic Acid 600 mg oral capsule 600 mg = 1 cap(s), Oral, Daily, Refills(s) 0 Start Date: 10/05/21 Status: Ordered Norvasc (20 sources) Dihydropyridine Calcium Channel Diana Start: 05-18-2020 take 20 mg by mouth once daily Norvasc 20 mg, Oral, Daily, Refills(s) 0 Start Date: 05/18/20 Status: Ordered Start: 05-18-2020 take 5 mg by mouth once daily Norvasc 5 mg, Oral, Daily, Refills(s) 0 Start Date: 05/18/20 Status: Ordered Start: 05-18-2020 take 10 mg by mouth once daily Norvasc 10 mg, Oral, Daily, Refills(s) 0 Start Date: 05/18/20 Status: Ordered Antibiotic (7 sources) Start: 09-06-2023 Antibiotic Antibiotic Start Date: 09/06/23 Status: Ordered ascorbic acid 500 mg oral tablet (12 sources) Vitamin C Start: 09-06-2023 take 500 [...] day Active baclofen 5 mg oral tablet (3 sources) gamma-Aminobutyric Acid-ergic Agonist Start: 02-14-2024 take 1 tablet by mouth three times daily as needed for muscle spasms baclofen 5 mg oral tablet 5 mg = 1 tab(s), Oral, TID, PRN Spasm, # 30 tab(s), Refills(s) 0, Pharmacy: [facility]/pharmacy #[id number], 183, cm, 02/14/24 13:46:00 EDT, Height/Length Dosing, 110.3, kg, 02/14/24 13:46:00 EDT, Weight Dosing Start Date: 02/14/24 Status: Ordered Calcium + D 315-200 MG-UNIT (15 sources) take 1 tablet by mouth twice daily Calcium + D 315-200 MG-UNIT 1 tablet Orally Twice a day Active calcium carbonate 1500 mg oral tablet (13 sources) Start: 05-18-2020 take 1 tablet by mouth once daily calcium (as carbonate) 600 mg oral tablet 600 mg = 1 tab(s), Oral, Daily, Refills(s) 0 Start Date: 05/18/20 Status: Ordered [facility] - (5 sources) [facility] - as directed Orally Active cyclobenzaprine hydrochloride 10 mg oral tablet (4 sources) Muscle Relaxant Start: 11-08-2022 take 1 tablet by mouth three times daily as needed for muscle spasms cyclobenzaprine 10 mg Tab 10 mg = 1 tab(s), Oral, TID, PRN for spasm, # 30 tab(s), Refills(s) 0, Pharmacy: [facility]/pharmacy #[id number], 182.9, cm, 11/08/22 15:17:00 EST, [...] 05/18/20 Status: Ordered FreeStyle Singh 14 Day [place] - (15 sources) FreeStyle Singh 14 Day [place] - as directed Active FreeStyle Singh 14 Day Sensor - (15 sources) FreeStyle Singh 14 Day Sensor - USE TO TEST BLOOD SUGAR DAILY for 28 Active FreeStyle Singh 14 Day Sensor - as directed Active gabapentin 300 mg oral capsule (10 sources) Anti-epileptic Agent Start: 02-14-2024 take 1 capsule by mouth twice daily gabapentin 300 mg Cap 300 mg = 1 cap(s), Oral, BID, # 60 cap(s), Refills(s) 0, [id number], cm, 02/14/24 13:46:00 EDT, Height/Length Dosing, 110.3, kg, 02/14/24 13:46:00 EDT, Weight Dosing Start Date: 02/14/24 Status: Ordered Start: 12-16-2023 take 1 capsule by [facility] once daily at bedtime gabapentin 300 mg Cap 300 mg = 1 cap(s), Oral, Once a day (at bedtime), # 30 cap(s), Refills(s) 1, [id number], cm, 12/16/23 10:37:00 EST, Height/Length Dosing, 102.3, kg, 12/16/23 10:37:00 EST, Weight Dosing Start Date: 12/16/23 Status: Ordered Start: 11-08-2022 take 1 capsule by [facility] at bedtime gabapentin 100 mg Cap 100 mg = 1 cap(s), Oral, Bedtime, # 30 cap(s), Refills(s) 0, [id number] 182.9, cm, 11/08/22 15:17:00 EST, Height/Length [...] tablet (5 sources) [facility] Loratadine 10 MG 1 tablet Orally Once a day Active pregabalin 25 mg oral capsule (2 sources) Start: 05-18-2024 take 1-2 capsules by mouth twice daily Lyrica 25 mg Cap 1-2 cap(s), Oral, BID, # 120 tab(s), Refills(s) 0, Pharmacy: [facility]/pharmacy #[id number], 183, cm, 05/18/24 13:21:00 EDT, Height/Length Dosing, 107, kg, 05/18/24 13:21:00 EDT, Weight Dosing Start Date: 05/18/24 Status: Ordered Start: 03-27-2024 take 1 capsule by [facility] twice daily pregabalin 25 mg Cap 25 mg = 1 cap(s), Oral, BID, # 60 cap(s), Refills(s) 0, Pharmacy: [facility]/pharmacy #[id number], 183, cm, 03/27/24 14:29:00 EDT, Height/Length Dosing, 107, kg, 03/27/24 14:29:00 EDT, Weight Dosing Start Date: 03/27/24 Status: Ordered PreserVision AREDS (13 sources) Start: 10-05-2021 take 1 capsule by mouth once daily PreserVision AREDS 1 cap(s), Oral, Daily, Refill(s) 0 Start Date: 10/05/21 Status: Ordered 12 hr ranolazine 500 mg extended release oral tablet (20 sources) Anti-anginal Start: 05-18-2020 take 500 mg by mouth twice daily Ranexa 500 mg, Oral, BID, Refills(s) 0 Start Date: 05/18/20 Status: Ordered tadalafil 5 mg oral tablet (12 sources) Phosphodiesterase 5 Inhibitor Start: 02-14-2024 take 1 tablet by mouth once daily Cialis 5 mg oral tablet 5 mg = 1 tab(s), Oral, Daily, Refills(s) 0 Start Date: 02/14/24 Status: Ordered Testosterone (20 sources) Androgen Start: 12-12-2022 testosterone 2% transdermal cream See Instructions, apply [...] palpitations; Translations: [Palpitations] Episodic Chronic kidney disease (13 sources) Chronic kidney disease 05-18-2020 Chronic Chronic kidney disease (4 sources) Chronic kidney disease; Translations: [Chronic kidney disease, stage 3b] Onset: 06-04-2023 Chronic obstructive pulmonary disease and bronchiectasis (18 sources) Mucopurulent chronic bronchitis; Translations: [Mucopurulent chronic bronchitis] Onset: 11-27-2022 Chronic Coronary atherosclerosis and other heart disease (20 sources) Angina pectoris; Translations: [History of myocardial infarction] Onset: 11-27-2022 05-18-2020 Chronic Deficiency and other anemia (13 sources) Anemia 05-18-2020 Episodic Diabetes mellitus with complications (20 sources) Disorder of kidney due to diabetes mellitus; Translations: [Type 2 diabetes mellitus with diabetic chronic kidney disease] Onset: 07-02-2022 Chronic Diabetes mellitus without complication (14 sources) Diabetes mellitus; Translations: [Type 2 diabetes mellitus without complications] Onset: 11-27-2022 05-18-2020 Chronic Disorders of lipid metabolism (20 sources) Hypercholesterolemia; Translations: [Mixed hyperlipidemia] Onset: 07-02-2022 05-18-2020 Chronic Essential hypertension (20 sources) Hypertensive disorder; Translations: [Essential hypertension] Onset: 07-02-2022 05-18-2020 Chronic Genitourinary symptoms and ill-defined conditions (20 sources) Giuseppe hematuria; Translations: [Gross hematuria] Onset: 09-03-2023 Episodic Heart valve disorders (13 sources) Irregular heart beat 05-18-2020 Episodic Hyperplasia [...] and stenosis of bilateral carotid arteries] Onset: 01-01-2024 Chronic Osteoarthritis (19 sources) Osteoarthritis of knee; Translations: [Unilateral primary osteoarthritis, right knee] Onset: 11-18-2022 Chronic Other aftercare (15 sources) Long-term current use of insulin; Translations: [emt intermediate (current) use of insulin] Episodic Other and [...] lung; Translations: [Solitary pulmonary nodule] Episodic Other male genital disorders (2 sources) Male erectile dysfunction, unspecified; Translations: [Male erectile dysfunction, unspecified] Onset: 08-14-2022 Chronic Other nervous system disorders (13 sources) Carpal tunnel syndrome 05-18-2020 Chronic Other nervous system disorders (1 source) Other chronic pain; Translations: [OTHER CHRONIC PAIN] Onset: 11-27-2022 Chronic Other nervous system disorders (2 sources) Chronic pain; Translations: [Other chronic pain] Onset: [...] screening for malignant neoplasm of prostate] Onset: 03-17-2024 Episodic Peripheral and visceral atherosclerosis (15 sources) Arteriosclerosis of abdominal aorta; Translations: [Atherosclerosis of aorta] Chronic Residual codes; unclassified (13 sources) Sleep apnea 05-18-2020 Chronic Residual codes; unclassified (13 sources) Obstructive sleep apnea syndrome; Translations: [Obstructive sleep apnea (adult) (pediatric)] Chronic Residual codes; unclassified (3 sources) Obstructive sleep apnea (adult) (pediatric); Translations: [Obstructive sleep apnea] Chronic Residual codes; unclassified (13 sources) H/O cardiac surgery 05-18-2020 Episodic Respiratory failure; insufficiency; arrest (adult) (13 sources) 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 airway pressure ventilation 05-18-2020 Chronic Rheumatoid arthritis and related disease (13 sources) Rheumatoid arthritis 05-18-2020 Chronic Spondylosis; intervertebral [...] [Pelvic and perineal pain] Onset: 08-14-2022 Episodic Coronary atherosclerosis and other heart disease (2 sources) Presence of aortocoronary bypass graft; Translations: [Presence of aortocoronary bypass graft] Onset: 01-20-2024 Episodic Other aftercare (2 sources) senior care (current) use of insulin; Translations: [SIGN BUILDER CURRENT USE OF INSULIN] Onset: 11-27-2022 Episodic Other aftercare (1 source) Other fci (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 therapy; Translations: [OTH SIGN BUILDER CURRENT DRUG THERAPY] Onset: 11-27-2022 Episodic Other aftercare (1 source) emt intermediate (current) use of aspirin; Translations: [SIGN BUILDER CURRENT USE OF ASPIRIN] Onset: 11-27-2022 Episodic Other lower respiratory disease (12 sources) Solitary pulmonary nodule; Translations: [SOLITARY PULMONARY NODULE] Onset: 08-14-2022 Episodic Other lower respiratory disease (6 sources) Shortness of breath; Translations: [SHORTNESS OF BREATH] Onset: 07-25-2022 Episodic Residual codes; unclassified (2 sources) Pain, [...] Test Name Value Interpretation Reference Range Facility Follow-Upon 05-19-2024 Follow-Up [id number] Trae Pineda 1950 M Date Provider Department Center 05/19/2024 [facility] No family history on file Level of Service:15669 [place] OFFICE/OUTPATIENT ESTABLISHED MOD MDM 30 MIN [facility] Refillon 05-14-2024 Refill [id number] Trae Pineda 1950 M Date Provider Department Center 05/14/2024 [facility] No family history on file Reason for Visit and Comments: Med Refill [[id number]] [facility] Procedure Visiton 05-11-2024 Procedure Visit [id number] Trae Pineda 1950 M Date Provider Department Center 05/11/2024 DIONY GREENBERG [facility] No family history on file Level of Service:32667 [place] OFFICE/OUTPT VISIT,PROCEDURE ONLY (26) Reason for Visit and Comments: Follow-up [[id number]] - Uds documentation [facility] Consent for Treatmenton 03-18 Consent for Treatment [id number]#1 .00TIFF [facility] Consultation Noteon 03-27-20 Consultation Note Patient: KATERINA PINEDA Age: 74 years Sex: Male : 1950 Associated Diagnoses: None Author: Margareth De La Cruz PA-C Subjective Chief complaint 03/27/2024 14:19 EDT low back right leg . Patient is a 73-year-old male. He has a past medical history significant for lumbosacral stenosis, lumbar spondylosis, and lumbosacral neuritis. Historically, injections help with that his most recent ones have not. He has lower back pain with right buttock pain and right radiating leg pain that he rates a 5/10. He has further considered his options that we discussed at his last appointment. He has further considered other injection options versus seeing a surgeon. At this time, he thinks that he would like to meet with a surgeon but he states that he is dealing with a lot with his . She is undergoing evaluation for her pancreas and possibly pancreatic cancer. He has lower back pain with right leg pain that he rates a 5/10. This affects his ambulatory status. He tried to increase the gabapentin to 300 mg twice daily but it made him too tired. He is just using it at bedtime. It gives him some improvement but not enough and makes him sleepy. Health Status Allergies: Allergic Reactions (Selected) Severity Not Documented HydrALAZINE- Palpatations. Statins- Muscle ache., Allergies (2) Active Severity Reaction statins muscle ache hydrALAZINE palpatations Current medications: (Selected) Prescriptions Prescribed baclofen 5 mg oral tablet: 5 mg = 1 tab(s), Oral, TID, PRN Spasm, # 30 tab(s), Refills(s) 0, Pharmacy: [facility]/pharmacy #[id number], 183, cm, 02/14/24 13:46:00 EDT, Height/Length Dosing, 110.3, kg, 03/29/24 13:46:00 EDT, Weight Dosing gabapentin 300 mg Cap: 300 mg = 1 cap(s), Oral, Once a day (at bedtime), # 30 cap(s), Refills(s) 1, [id number], cm, 12/16/23 10:37:00 EST, Height/Length Dosing, 102.3, kg, 12/16/23 10:37:00 EST, Weight Dosing pregabalin 25 mg Cap: 25 mg = 1 cap(s), Oral, BID, # 60 cap(s), Refills(s) 0, [id number] 183, cm, 03/27/24 14:29:00 EDT, Height/Length Dosing, 107, kg, 03/27/24 14:29:00 EDT, Weight Dosing Documented Medications Documented Alpha Lipoic Acid 600 mg oral capsule: 600 mg = 1 cap(s), Oral, Daily, Refills(s) 0 Antibiotic: Antibiotic Cialis 5 mg oral tablet: Refills(s) 0 Humulin 70/30: 25-10 units, BIDAC, Refill(s) 0 Norvasc: 20 mg, Oral, Daily, Refills(s) 0 PreserVision AREDS: [...] History of heart attack / SNOMED CT 6852517131 / Confirmed Acute angina / SNOMED CT 660517857 / Confirmed Irregular heart beat / SNOMED CT 634190796 / Confirmed HTN (hypertension) / SNOMED CT 9710171927 / Confirmed High cholesterol / SNOMED CT 93774056 / Confirmed H/O heart bypass surgery / SNOMED CT 401148139 / Confirmed Apnea, sleep / SNOMED CT 981099235 / Confirmed CPAP (continuous positive airway pressure) dependence / SNOMED CT 9888661481 / Confirmed Enlarged prostate / SNOMED CT 854386540 / Confirmed Chronic kidney disease (CKD) / SNOMED CT 6831927994 / Confirmed Diabetes / SNOMED CT 082431482 / Confirmed Carpal tunnel syndrome / SNOMED CT 79723137 / Confirmed Anemia / SNOMED CT 304827905 / Confirmed Arthritis, rheumatoid / SNOMED CT 399438216 / Confirmed Obesity / ICD-9-CM 278.00 / Possible Obesity / SNOMED CT [id number] / Possible Objective Vital Signs 03/27/2024 14:19 EDT Peripheral Pulse Rate 69 bpm Respiratory Rate 15 br/min Systolic Blood Pressure 151 mmHg HI Diastolic Blood Pressure 69 mmHg Mean Arterial Pressure, Cuff 96 mmHg General: Alert and oriented, No acute distress. Eye: Normal conjunctiva. HENT: Normocephalic, Normal hearing. Cardiovascular: No edema. Musculoskeletal Normal range of motion. Normal strength. 5/5 lower extremity strength other than right hip flexion, ADF and EHL 4/5 Positive right straight leg raise Integumentary: Warm, Dry, [place]. Neurologic: Alert, Oriented. Psychiatric: Cooperative, Appropriate mood & affect. 14 point review of systems was negative unless otherwise noted. Results Review Lumbar MRI once again reviewed. Multilevel lumbar stenosis, foraminal stenosis and spondylosis. Impression and Plan Patient is 73-year-old male with a past medical history significant for lumbar stenosis, lumbar neuritis and lumbar spondylosis. Currently, most recent epidural did not (more content not included)... [facility] Comment on above: Result Comment: Elec tronically Signed By: Margareth De La Cruz PA-C\.br\Date and Time Signed: 03/27/24 14:47 EDT Office/Clinic Note-Physician on 03-27-2024 Office/Clinic Note-Physician [id number]# 1.00TIFF [facility] Outside Records Officeon Outside Records Office [id number]# 1.00TIFF [facility] Patient Correspondenceon Patient Correspondence [id number]# 1.00TIFF [facility] Patient History Officeon Patient History Office [id number]# 1.00TIFF [facility] Follow-Upon 03-17-2024 Follow-Up [id number] Trae Pineda 1950 [facility] Provider Department Center 03/17/[address] [place] [address] U[facility] Second Fl No family history on file Level of Service:27346 [place] OFFICE/OUTPATIENT ESTABLISHED MOD MDM 30 MIN Reason for Visit and Comments: Benign Prostatic Hypertrophy [329370172] Hypogonadism [185] - 3 mo follow-up with labs [facility] Orders Onlyon 03-12-2024 Orders Only [id number] Trae Pineda 1950 [facility] Provider Department Center 03/12/[address] [place] [address] URO Second Fl No family history on file [facility] Consent for Treatmenton 01-17 Consent for Treatment [id number]# 1.00TIFF [facility] Consultation Noteon 02-14-20 Consultation Note Patient: KATERINA PINEDA Age: 73 years Sex: Male : 1950 Associated Diagnoses: None Author: Margareth De La Cruz PA-C Subjective Chief complaint 02/14/2024 13:32 EDT Back Pain . Patient is a 73-year-old male. He has a past medical history significant for lumbosacral stenosis, lumbar spondylosis, and lumbosacral neuritis. He underwent most recently a repeat L5-S1 epidural steroid injection. This was done on 01/15/2024 and unfortunate, did not give him any significant relief. He is still having a lot of lower back pain and spasms as well as leg pain, heaviness and fatigue. Prior to that patient underwent bilateral L5-S1 transforaminal epidural steroid injection on 08/06/2023. This did not give him any long-term relief. He currently rates the discomfort a 1?8/10. When he gets up and is trying to be active the pain gets worse. This affects his quality of life. This affects his activities and affects his ability to do the things he wants to do. He is overall very bothered by this and wonders if there is anything else that he can possibly do to try to get some relief. He states that previously he had an ablation back years ago that did not help. He does not have benjamin in many of the things he has been undergoing and have been offered to him. Health Status Allergies: Allergic Reactions (Selected) Severity Not Documented HydrALAZINE- Palpatations. Statins- Muscle ache., Allergies (2) Active Severity Reaction statins muscle ache hydrALAZINE palpatations Current medications: (Selected) Prescriptions Prescribed gabapentin 300 mg Cap: 300 mg = 1 cap(s), Oral, BID, # 60 cap(s), Refills(s) 0, Pharmacy: [facility]/pharmacy #[id number], 183, cm, 02/14/24 13:46:00 EDT, Height/Length Dosing, 110.3, kg, 02/14/24 13:46:00 EDT, Weight Dosing gabapentin 300 mg Cap: 300 mg = 1 cap(s), Oral, Once a day (at bedtime), # 30 cap(s), Refills(s) 1, Pharmacy: [facility]/pharmacy #[id number], 183, cm, 12/16/23 10:37:00 EST, Height/Length Dosing, 102.3, kg, 12/16/23 10:37:00 EST, Weight Dosing Documented Medications Documented Alpha Lipoic Acid 600 mg oral capsule: 600 mg = 1 cap(s), Oral, Daily, Refills(s) 0 Antibiotic: Antibiotic Cialis 5 mg oral tablet: Refills(s) 0 Humulin 70/30: 25-10 units, BIDAC, Refill(s) 0 Norvasc: 10 mg, Oral, Daily, Refills(s) 0 PreserVision AREDS: [...] History of heart attack / SNOMED CT 7267233970 / Confirmed Acute angina / SNOMED CT 251322177 / Confirmed Irregular heart beat / SNOMED CT 851792011 / Confirmed HTN (hypertension) / SNOMED CT 7902482641 / Confirmed High cholesterol / SNOMED CT 41093122 / Confirmed H/O heart bypass surgery / SNOMED CT 196240567 / Confirmed Apnea, sleep / SNOMED CT 862716520 / Confirmed CPAP (continuous positive airway pressure) dependence / SNOMED CT 2428725150 / Confirmed Enlarged prostate / SNOMED CT 628033565 / Confirmed Chronic kidney disease (CKD) / SNOMED CT 0584146601 / Confirmed Diabetes / SNOMED CT 931727790 / Confirmed Carpal tunnel syndrome / SNOMED CT 50221068 / Confirmed Anemia / SNOMED CT 485082120 / Confirmed Arthritis, rheumatoid / SNOMED CT 359022217 / Confirmed Obesity / ICD-9-CM 278.00 / Possible Obesity / SNOMED CT [id number] / Possible Objective Vital Signs 02/14/2024 13:32 EDT Peripheral Pulse Rate 66 bpm Respiratory Rate 14 br/min Systolic Blood Pressure 136 mmHg Diastolic Blood Pressure 62 mmHg Mean Arterial Pressure, Cuff 87 mmHg General: Alert and oriented, No acute distress. Eye: Normal conjunctiva. HENT: Normocephalic, Normal hearing. Cardiovascular: No edema. Musculoskeletal Normal range of motion. Normal strength. 5/5 lower extremity strength other than right hip flexion, ADF and EHL 4/5 Positive right straight leg raise Pain with compression of the lumbar facet joints Increased back pain with facet loading Integumentary: Warm, Dry, [place]. Neurologic: Alert, Oriented. Psychiatric: Cooperative, Appropriate mood & affect. 14 point review of systems was negative unless otherwise noted. Results Review Lumbar MRI once again reviewed. Multilevel lumbar stenosis, foraminal stenosis and spondylosis. Impression and Plan Patient is 73-year-old male with a past medical history significant for lumbar stenosis, lumbar neuritis and lumbar spondylosis. Unfortunate on a recent epidural did not give him the relief he (more content not included)... [facility] Comment on above: Result Comment: Elec tronically Signed By: Jono AGOSTO, Margareth\.br\Date and Time Signed: 02/14/24 14:08 EDT Office/Clinic Note-Physician on 02-14-2024 Office/Clinic Note-Physician [id number]# 1.00TIFF Normal [facility] Patient Correspondenceon Patient Correspondence [id number]# 1.00TIFF Normal [facility] Patient Correspondence [id number]# 1.00TIFF Normal [facility] Patient History Officeon Patient History Office [id number]# 1.00TIFF Normal [facility] Refillon 01-26-2024 Refill [id number] Trae Pineda 1950 M Date Provider Department Center 01/26/2024 Danni-MOISES AGUIRRE [facility] No family history on file Reason for Visit and Comments: Med Refill [[id number]] Normal [facility] Office Visiton 01-20-2024 Follow-up visit [id number] Trae Pineda 1950 M Date Provider Department Center 01/20/2024 Risa-MOI MOSS [facility] No family history on file Level of Service:16968 [place] OFFICE/OUTPATIENT ESTABLISHED MOD MDM 30 MIN Normal [facility] Consent for Procedure/Surger yon 01-15-2024 Consent for Procedure/Surgery [id number] #1.00TIFF Normal [facility] Consent for Treatmenton 12-20 Consent for Treatment [id number]#1 .00TIFF Normal [facility] Discharge Instructionson Discharge Instructions [id number] #1.00TIFF Normal [facility] IntraOperative Documentson 0 01-15-2024 IntraOperative Documents [id number] #1.00TIFF Normal [facility] Main OR Intraoperative Recor don 01-15-2024 Main OR Intraoperative Record IntraOp Document Type FTPM Summary Primary Physician: John Cannon DO Finalized Date/Time: 01/15/24 14:25:24 Pt. Name: EDWINTRAE/Sex: 1950 Male Med Rec #: [id number] Physician: John Cannon DO Financial #: [id number] Pt. Type: P Room/Bed: / Admit/Disch: 01/15/24 [...] Lula Schuler Role Performed Surgeon - Primary [employer] Professor - Primary Scrub - Primary Time In 01/15/24 14:15:00 01/15/24 14:15:00 02/28/24 14:15:00 Time Out 01/15/24 14:24:00 01/15/24 14:24:00 01/15/24 14:24:00 Procedure LUMBAR EPIDURAL STEROID LUMBAR EPIDURAL STEROID LUMBAR EPIDURAL STEROID INJECTION(.) INJECTION(.) INJECTION(.) Comments Last Modified By: Deysi Castro RN, RN, Madison A Pritchard RN, Madison A 01/15/24 14:23:16 01/15/24 14:23:16 01/15/24 14:23:16 Entry 4 Case Attendee Leanne Fitzgerald Role Performed Chemistry Laboratory Technician Time In 01/15/24 14:15:00 Time Out 01/15/24 [...] Castro RN, Roderick RN, Davis Foley DO, Bradford A., Ott, Amy Time Out Complete 01/15/24 14:15:00 Outcomes Met? [...] and tissue Entry 1 Skin Integrity Intact, [place], Warm, and Skin Abnormality No Dry Outcomes [...] Last Modif (more content not included)... Normal [facility] Main OR Preoperative Recordo n 01-15-2024 Main OR Preoperative Record Holding Area Document Type FTPM Summary Primary Physician: John Cannon DO Finalized Date/Time: 01/15/24 13:38:25 Pt. Name: TRAE PINEDA/Sex: 1950 Male Med Rec #: [id number] Physician: John Cannon DO Financial #: [id number] Pt. Type: P Room/Bed: / Admit/Disch: 01/15/24 [...] By: Barb Schmidt RN 01/15/24 13:38 Normal [facility] Patient Correspondenceon Patient Correspondence [id number]# 1.00TIFF Normal [facility] Orders Onlyon 12-23-2023 Orders Only [id number] Trae Pineda 1950 [facility] Provider Department Center 12/23/2023 MOISES SANON None No family history on file Normal [facility] Refillon 12-20-2023 Refill [id number] Trae Pineda 1950 M Date Provider Department Center 12/20/2023 MO[facility]ES SANON [facility] No family history on file Reason for Visit and Comments: Med Refill [[id number]] Normal [facility] Office/Clinic Note-Physician on 12-19-2023 Office/Clinic Note-Physician [id number]#1. 00TIFF Normal [facility] Insurance Correspondence Off iceon 12-17-2023 Insurance Correspondence Office [id number]#1. 00TIFF Normal [facility] Consent for Treatmenton 11-19 Consent for Treatment [id number]# 1.00TIFF Normal [facility] Consultation Noteon 12-16-19 24 Consultation [...] History of heart attack / SNOMED CT 8002171179 / Confirmed Acute angina / SNOMED CT 427071203 / Confirmed Irregular heart beat / SNOMED CT 189129999 / Confirmed HTN (hypertension) / SNOMED CT 9244110530 / Confirmed High cholesterol / SNOMED CT 09912757 / Confirmed H/O heart bypass surgery / SNOMED CT 358521995 / Confirmed Apnea, sleep / SNOMED CT 413450561 / Confirmed CPAP (continuous positive airway pressure) dependence / SNOMED CT 6900182314 / Confirmed Enlarged prostate / SNOMED CT 949637753 / Confirmed Chronic kidney disease (CKD) / SNOMED CT 2633959516 / Confirmed Diabetes / SNOMED CT 977058192 / Confirmed Carpal tunnel syndrome / SNOMED CT 76071920 / Confirmed Anemia / SNOMED CT 481849351 / Confirmed Arthritis, rheumatoid / SNOMED CT 451898864 / Confirmed Obesity / ICD-9-CM 278.00 / Possible Obesity / SNOMED CT F0008W49-4777-0A16-B1 [id number] / Possible Objective Vital Signs 12/16/2023 10:23 [...] right straight leg raise Integumentary: Warm, Dry, [place]. Neurologic: Alert, Oriented. Psychiatric: Cooperative, Appropriate mood [...] injection we discussed pursuing L5-S1 epidural steroid injection?interlamina r epidural steroid injection. Procedure was discussed. Risk and benefits were discussed. Patient is agreeable. He will follow-up 2 weeks after the injection for reevaluation. Call clinic sooner if necessary (more content not included)... Normal [facility] Comment on above: Result Comment: Elec tronically Signed By: Margareth De La Cruz PA-C\.br\Date and Time Signed: 12/16/23 10:54 EST\.br\Electronically Co-Signed By: John Cannon DO\Date and Time Co-Signed: 12/19/23 11:37 EST Legal Correspondence Officeo n 12-16-2023 Legal Correspondence Office [id number]#1 .00TIFF Normal [facility] Office/Clinic Note-Nurseon 0 12-16-2023 Office/Clinic Note-Nurse [id number]# 1.00TIFF Normal [facility] Office/Clinic Note-Nurse [id number]#1 .00TIFF Normal [facility] Comment on above: Other Comment: triston earl Office/Clinic Note-Physician on 12-16-2023 Office/Clinic Note-Physician [id number]#1 .00TIFF Normal [facility] Patient Correspondenceon Patient Correspondence [id number]#1 .00TIFF Normal [facility] Patient Correspondence [id number]#1 .00TIFF Normal [facility] Patient Correspondence [id number]#1 .00TIFF Normal [facility] Patient Correspondence [id number]#1 .00TIFF Normal [facility] Patient History Officeon Patient History Office [id number]#1 .00TIFF Normal [facility] Radiology Outside Office Epic Ambulatory Analyst yon 12-16-2023 Radiology Outside Office Copy [id number]#1 .00TIFF Normal [facility] Radiology Outside Office Copy [id number]# 1.00TIFF Normal [facility] Follow-Upon 12-10-2023 Follow-Up [id number] Trae Pineda 1950 M Date Provider Department Center 12/10/2023 ColtonDIONY ARIZA [facility] No family history on file Level of Service:07341 [place] OFFICE/OUTPATIENT ESTABLISHED MOD MDM 30 MIN Reason for Visit and Comments: Benign Prostatic Hypertrophy [377572442] Follow-up [015985] - Cysto follow-up with labs Normal [facility] URINALYSIS MICROSCOPIC WITH REFLEX CULTUREon 12-10-2023 CASTS IN URINE Present Abnormal None Seen [facility] Comment on above: Performed By: #### L [id number] #### [facility] [address] [place] [address] CRYSTALS IN URINE Normal [facility] Comment on above: Performed By: #### L [id number] #### [facility] ([facility]) [address] [place] [address] HYALINE CASTS /LPF IN URINE SEDIMENT BY MICROSCOPY 8 /LPF High <1 [facility] Comment on above: Performed By: #### L [id number] #### [facility] [address] [place] [address] MUCUS (#/HPF) IN URINE SEDIMENT Occasional Normal None Seen, Occasional, Few [facility] Comment on above: Performed By: #### L [id number] #### [facility] ([facility]) [address] [place] [address] OTHER MICROSCOPIC ELEMENTS Normal [facility] Comment on above: Performed By: #### L [id number] #### [facility] [address] [place] [address] RBC (#/HPF) IN URINE SEDIMENT 0-2 Abnormal None Seen [facility] Comment on above: Performed By: #### L [id number] #### [facility] [address] [place] [address] SQUAMOUS EPITHELIAL CELLS (#/HPF) IN URINE SEDIMENT Occasional Normal None Seen, Occasional [facility] Comment on above: Performed By: #### L [id number] #### [facility] [address] [place] [address] WBC (LEUKOCYTE) (#/HPF) IN URINE SEDIMENT 0-2 Abnormal None Seen [facility] Comment on above: Performed By: #### L [id number] #### [facility] ([facility]) [address] [place] [address] URINALYSIS WITH REFLEX CULTU REon 12-10-2023 BILIRUBIN, TOTAL PRESENCE IN URINE Negative Normal Negative [facility] Comment on above: Performed By: #### L [id number] #### [facility] ([facility]) [address] [place] [address] Clarity (U) Clear Normal Clear [facility] Comment on above: Performed By: #### L [id number] #### [facility] ([facility]) [address] [place] [address] Color (U) Holly Abnormal Yellow [facility] Comment on above: Performed By: #### L [id number] #### [facility] ([facility]) [address] [place] [address] Glucose (U) [Mass/Vol] Negative Normal Negative [facility] Comment on above: Performed By: #### L [id number] #### [facility] ([facility]) [address] [place] [address] HEMOGLOBIN PRESENCE IN URINE Negative Normal Negative [facility] Comment on above: Performed By: #### L [id number] #### [facility] ([facility]) [address] [place] [address] Ketones Ql (U) Negative Normal Negative [facility] Comment on above: Performed By: #### L [id number] #### [facility] ([facility]) [address] [place] [address] LEUKOCYTE ESTERASE PRESENCE IN URINE BY TEST STRIP Negative Normal Negative [facility] Comment on above: Performed By: #### L [id number] #### [facility] ([facility]) [address] [place] [address] NITRITE PRESENCE IN URINE Negative Normal Negative [facility] Comment on above: Performed By: #### L [id number] #### [facility] ([facility]) [address] [place] [address] pH (U) 5.0 [pH] Normal 5.0-8.0 [facility] Comment on above: Performed By: #### L [id number] #### [facility] ([facility]ER) [address] [place] [address] Protein (U) [Mass/Vol] 30 mg/dL Abnormal Negative [facility] Comment on above: Performed By: #### L [id number] #### [facility] ([facility]) [address] [place] [address] Specific gravity (U) [Rel density] 1.026 High 1.015-1.020 [facility] Comment on above: Performed By: #### L [id number] #### [facility] ([facility]) [address] [place] [address] Orders Onlyon 12-09-2023 Orders Only [id number] Trae Pineda 1950 Date Provider Department Center 12/09/2023 SHY ROMERO None No family history on file Normal [facility] 36on 12-04-2023 34 Approving, but needs appt for additional refills. Normal [facility] Insurance Correspondence Off iceon 11-13-2023 Insurance Correspondence Office [id number]# 1.00TIFF Normal [facility] Physician Orderon 11-13-2023 Physician Order [id number]# 1.00TIFF Normal [facility] Consent for Treatmenton 10-19 Consent for Treatment [id number]# 1.00TIFF [facility] Consultation Noteon 11-08-20 Consultation Note Patient: [...] History of heart attack / SNOMED CT 7809179140 / Confirmed Acute angina / SNOMED CT 322686785 / Confirmed Irregular heart beat / SNOMED CT 700772941 / Confirmed HTN (hypertension) / SNOMED CT 3418930611 / Confirmed High cholesterol / SNOMED CT 24252163 / Confirmed H/O heart bypass surgery / SNOMED CT 230466258 / Confirmed Apnea, sleep / SNOMED CT 637387759 / Confirmed CPAP (continuous positive airway pressure) dependence / SNOMED CT 7011122979 / Confirmed Enlarged prostate / SNOMED CT 642389293 / Confirmed Chronic kidney disease (CKD) / SNOMED CT 4472341137 / Confirmed Diabetes / SNOMED CT 191534793 / Confirmed Carpal tunnel syndrome / SNOMED CT 94332538 / Confirmed Anemia / SNOMED CT 094464441 / Confirmed Arthritis, rheumatoid / SNOMED CT 135101777 / Confirmed Obesity / ICD-9-CM 278.00 / Possible Obesity / SNOMED CT S8972G65-2852-8J56-N4 [id number] / Possible Objective Vital Signs 11/08/2023 10:58 [...] right straight leg raise Integumentary: Warm, Dry, [place]. Neurologic: Alert, Oriented. Psychiatric: Cooperative, Appropriate mood [...] agreeable. Follow-up after. LEONOR score: 36% Normal [facility] Comment on above: Result Comment: Elec tronically Signed By: Jono AGOSTO, Margareth\.br\Date and Time Signed: 11/08/23 11:19 EST Office/Clinic Note-Physician on 11-08-2023 Office/Clinic Note-Physician [id number]# 1.00TIFF Normal [facility] Patient Correspondenceon Patient Correspondence [id number]# 1.00TIFF Normal [facility] Patient Correspondence [id number]# 1.00TIFF Normal [facility] Patient History Officeon Patient History Office [id number]# 1.00TIFF Normal [facility] Refillon 11-02-2023 Refill [id number] Trae Pineda 1950 M Date Provider Department Center 11/02/2023 MOISES SANON [facility] No family history on file Reason for Visit and Comments: Med Refill [[id number]] Normal [facility] [place] ORon 10-28-2023 [place] IN OR [...] fluoroscopic equipment utilization. Electronically signed: Abhi Antonio. [facility] Comment on above: Order Comment: CYSTO RETROGRADE PYELOGRAM OPNOTEon 10-28-2023 OPNOTE - Attestation signed by Diony Ariza MD at 10/30/2023 12:59 PM I was present for the entire procedure. CYSTOURETHROSCOPY, WITH RETROGRADE PYELOGRAM (B) Operative Note Date: 10/28/2023 [facility] Name: Trae Pineda, : 1950, Diagnosis [...] Source Type Tests Collected By Collected At [facility]? Priority Lab ID A Bladder washing Urine NON-TOWER FOREMAN CYTOLOGY - CELLULAR EXAM Diony Ariza MD 10/28/23801 B Urine, Catheterized Urine NON-TOWER FOREMAN CYTOLOGY - CELLULAR EXAM Diony Ariza MD 10/28/23801 Routine Description: BLADDER URINE FOR CULTURE Staff: [employer] Professor: Shena Calvillo RN; Dafne Carrillo RN Relief [employer] Professor: Kristian Cuevas RN Indications: Trae Pineda is [...] in outpatient urology clinic. Diony Ariza Normal [facility] Orders Onlyon 10-28-2023 Orders Only [id number] Trae Pineda 1950 M Date Provider Department Center 10/28/2023 HUGO SAGASTUME [facility] No family history on file Normal [facility] POCT GLUCOSE METER UNSOLICIT ED RESULTSon 10-28-2023 Glucose [Mass/Vol] 132 mg/dL High 70-105 [facility] Comment on above: Order Comment: Waive d Testing in the ED is performed under the ED CLIA certificate #[id number]. Result Comment: [facility] Performed By: #### L [id number] #### [facility] ([facility]) [address] [place] [address] URINE CULTURE, STERILE COLLE CTIONon 10-28-2023 Bacteria identified Cx Nom (U) No growth at 48 hours Normal [facility] Comment on above: Order Comment: Pre-o p diagnosis:Benign prostatic hyperplasia with lower urinary tract symptoms, symptom details unspecified [N40.1] Performed By: #### L [id number] ####[facility] ([facility]ER)[address] [place] [address] GRAM STAIN RESULT Normal [facility] Comment on above: Order Comment: Pre-o p diagnosis:Benign prostatic hyperplasia with lower urinary tract symptoms, symptom details unspecified [N40.1] Result Comment: No p olymorphonuclear leukocytes seen No organisms seen Performed By: #### L [id number] ####[facility] ([facility]ER)[address] [place] [address] [id number] 10-18-2023 [id number] HOLD CIALIS X 48 HRS STOP 10/26 MEDICATIONS TO TAKE DAY OF SURGERY WITH SIP OF WATER AMLODIPNE COREG INSULIN HUMULIN 70/30 IF YOU ARE GOING HOME AFTER YOUR SURGERY OR PROCEDURE, FOR YOUR SAFETY, YOUR SURGERY WILL BE CANCELLED IF BOTH OF THE FOLLOWING ARE NOT AVAILABLE: An adult driver salesman over the age of 18, that can [...] lenses. Do not wear perfume, make-up, nail hebrew, or lotions on the day of your [...] need to make any changes, please call [phone]. Notify your surgeon if you develop any illness such as a cold, cough, fever, sore throat or vomiting between now and your surgery. Thank you for entrusting us with your care. [facility] Surgical Services Team Normal [facility] Refillon 10-01-2023 Refill [id number] Trae Pineda 1950 M Date Provider Department Center 10/01/2023 MOISES SANON [facility] No family history on file Reason for Visit and Comments: Med Refill [[id number]] Normal [facility] Consent for Treatmenton 08-19 Consent for Treatment [id number]# 1.00TIFF [facility] Consultation Noteon 09-06-20 Consultation Note Patient: [...] History of heart attack / SNOMED CT 0088367050 / Confirmed Acute angina / SNOMED CT 443897551 / Confirmed Irregular heart beat / SNOMED CT 061243765 / Confirmed HTN (hypertension) / SNOMED CT 1233342412 / Confirmed High cholesterol / SNOMED CT 04236233 / Confirmed H/O heart bypass surgery / SNOMED CT 743740870 / Confirmed Apnea, sleep / SNOMED CT 657630165 / Confirmed CPAP (continuous positive airway pressure) dependence / SNOMED CT 1647642021 / Confirmed Enlarged prostate / SNOMED CT 637203339 / Confirmed Chronic kidney disease (CKD) / SNOMED CT 2557386326 / Confirmed Diabetes / SNOMED CT 901582469 / Confirmed Carpal tunnel syndrome / SNOMED CT 66997635 / Confirmed Anemia / SNOMED CT 658233667 / Confirmed Arthritis, rheumatoid / SNOMED CT 790842512 / Confirmed Obesity / ICD-9-CM 278.00 / Possible Obesity / SNOMED CT V8674H33-1269-4X90-H8 5E-[id number] / Possible Objective Vital Signs 09/06/2023 11:09 [...] straight leg raise bilaterally Integumentary: Warm, Dry, [place]. Neurologic: Alert, Oriented. Psychiatric: Cooperative, Appropriate mood [...] sooner if necessary. LEONOR score: 36% Normal [facility] Comment on above: Result Comment: Elec tronically Signed By: Margareth De La Cruz PA-C\.br\Date and Time Signed: 09/06/23 11:33 EDT\.br\Electronically Co-Signed By: John Cannon DO.br\Date and Time Co-Signed: 09/09/23 10:07 EDT Office/Clinic Note-Physician on 09-06-2023 Office/Clinic Note-Physician [id number]#1 .00TIFF Normal [facility] Orders Officeon 09-06-2023 Orders Office [id number]#1 .00TIFF Normal [facility] Patient Correspondenceon Patient Correspondence [id number]#1 .00TIFF [facility] Patient Correspondence [id number]#1 .00TIFF [facility] Patient History Officeon Patient History Office [id number]#1 .00TIFF [facility] Follow-Upon 09-03-2023 Follow-Up [id number] Trae Pineda Lorenzo 1950 [facility] Second Fl No family history on file Level of Service:92793 [place] OFFICE/OUTPATIENT ESTABLISHED MOD MDM 30-39 MIN Reason for Visit and Comments: Hypogonadism [185] - Labs / flow PVR [facility] Orders Onlyon 09-02-2023 Orders Only [id number] EdwinTrae 1950 [facility] Provider Department Center 09/02/2023 SHY ROMERO None No family history on file [facility] 36on 08-29-2023 36 This is a request fo r Dr. Ariza patient. Can you please assist with this refill? [facility] Refillon 08-29-2023 Refill [id number] Trae Pineda Lorenzo 1950 [facility] 08/[facility]2023 [facility] URO Second Fl No family history on file Reason for Visit and Comments: Med Refill [[id number]] [facility] Consent for Procedure/Surger yon 08-06-2023 Consent for Procedure/Surgery [id number]# 1.00CD:127 [facility] Consent for Treatmenton 07-19 Consent for Treatment [id number]#1 .00CD:127 [facility] Discharge Instructionson Discharge Instructions [id number]# 1.00CD:127 Normal [facility] IntraOperative Documentson 0 08-06-2023 IntraOperative Documents [id number]# 1.00CD:127 Normal [facility] Main OR Intraoperative Recor don 08-06-2023 Main OR Intraoperative Record IntraOp Document Type FTPM Summary Primary Physician: Himanshu Wright MD Finalized Date/Time: 08/06/23 14:19:56 Pt. Name: TRAE PINEDA Lorenzo MinayaB./Sex: 1950 Male Med Rec #: [id number] Physician: Himanshu Wright MD Financial #: [id number] Pt. Type: P Room/Bed: / Admit/Disch: 08/06/23 [...] Deysi Herrera Role Performed Surgeon - Primary [employer] Professor - Primary Scrub - Primary Time In [...] Leanne Dennis Role Performed Scrub - Relief Chemistry Laboratory Technician Time In 08/06/23 14:12:00 08/06/23 14:12:00 Time [...] RN, Given Participants Deysi Casper Goldner MD, Tai [...] and tissue Entry 1 Skin Integrity Intact, [place], Warm, and Skin Abnormality No Dry Outcomes [...] Arm Posi (more content not included)... Normal [facility] Main OR Preoperative Recordo n 08-06-2023 Main OR Preoperative Record Holding Area Document Type FTPM Summary Primary Physician: Himanshu Wright MD Finalized Date/Time: 08/06/23 14:02:18 Pt. Name: TRAE PINEDA/Sex: 1950 Male Med Rec #: [id number] Physician: Himanshu Wright MD Financial #: [id number] Pt. Type: P Room/Bed: / Admit/Disch: 08/06/23 [...] By: Isa Romero RN 08/06/23 14:02 Normal [facility] Operative Reporton 3 Operative Report Patient: KATERINA PINEDA Age: 73 years Sex: Male : 1950 Associated Diagnoses: None Author: Adriana ARMANDO, Himanshu Lopez Procedure Procedure: Transforaminal Epidural Steroid Injections with [...] Pressure 70 mmHg SpO2 97 % . [facility] Comment on above: Result Comment: Elec tronically Signed By: Adriana ARMANDO, Himanshu Lopez\.br\Date and Time Signed: 08/06/23 14:20 EDT 36on 07-30-2023 36 Approving, but needs appt for additional refills. [facility] Refillon 07-29-2023 Refill [id number] Trae Pineda 1950 M Date Provider Department Center 07/29/2023 [facility] TAY[facility] No family history on file Reason for Visit and Comments: Med Refill [[id number]] Normal [facility] Insurance Correspondence Off iceon 07-09-2023 Insurance Correspondence Office [id number]# 1.00CD:127 [facility] Patient Correspondenceon Patient Correspondence [id number]# 1.00CD:127 [facility] Consent for Treatmenton 06-18 Consent for Treatment [id number]# 1.00CD:127 Normal [facility] Consultation Noteon 07-02-20 Consultation Note [...] History of heart attack / SNOMED CT 2764141627 / Confirmed Acute angina / SNOMED CT 251556532 / Confirmed Irregular heart beat / SNOMED CT 547307516 / Confirmed HTN (hypertension) / SNOMED CT 5192067153 / Confirmed High cholesterol / SNOMED CT 71035479 / Confirmed H/O heart bypass surgery / SNOMED CT 338165951 / Confirmed Apnea, sleep / SNOMED CT 300678840 / Confirmed CPAP (continuous positive airway pressure) dependence / SNOMED CT 1268265627 / Confirmed Enlarged prostate / SNOMED CT 262601016 / Confirmed Chronic kidney disease (CKD) / SNOMED CT 6736299653 / Confirmed Diabetes / SNOMED CT 817845828 / Confirmed Carpal tunnel syndrome / SNOMED CT 98113452 / Confirmed Anemia / SNOMED CT 835932431 / Confirmed Arthritis, rheumatoid / SNOMED CT 921397729 / Confirmed Obesity / ICD-9-CM 278.00 / Possible Obesity / SNOMED CT [id number] [id number] / Possible Objective Vital Signs 07/02/2023 14:17 [...] straight leg raise bilaterally Integumentary: Warm, Dry, [place]. Neurologic: Alert, Oriented. Psychiatric: Cooperative, Appropriate mood [...] Craig MD Transcribed by: DENITA Technologist: GONZÁLEZ HUNTER REPORT This document has an image Result type: XR Spine Lumbosacral Minimum 4 Views Result date: November 08, 2022 16:26 EST Result status: Auth (Verified) Result title: XR Spine Lumbosacral Minimum 4 Views Performed by: Oscar Craig MD on November 08, 2022 20:04 EST Verified b (more content not included)... Normal [facility] Comment on above: Result Comment: Elec tronically Signed By: Margareth De La Cruz PA-C\.br\Date and Time Signed: 07/02/23 14:39 EDT\.br\Electronically Co-Signed By: Tutu Guzman MD\.br\Date and Time Co-Signed: 07/04/23 20:24 EDT Office/Clinic Note-Physician on 07-02-2023 Office/Clinic Note-Physician [id number]#1 .00CD:127 Normal [facility] Patient Correspondenceon Patient Correspondence [id number]#1 .00CD:127 Normal [facility] Patient Correspondence [id number]#1 .00CD:127 Normal [facility] Patient History Officeon Patient History Office [id number]#1 .00CD:127 Normal [facility] 29on 06-04-2023 29 Addended by: HARPREET WATSON on: 06/04/2023 11:25 AM Modules accepted: Orders Normal [facility] Office Visiton 06-04-2023 Follow-up visit [id number] Trae Pineda 1950 M Date Provider Department Center 06/04/2023 [facility]MOI MOSS [facility] No family history on file Level of Service:14250 [place] OFFICE/OUTPATIENT ESTABLISHED MOD MDM 30-39 MIN Reason for Visit and Comments: Follow-up [540161] - 6 month follow up Normal [facility] 36on 05-31-2023 36 No bacterial or candidal growth in urine. Will prescribed Bactrim DS BID x2 weeks and daily x 4 weeks for suspected prostatitis. BMP ordered to recheck potassium in a couple weeks. Normal [facility] Telephoneon 05-31-2023 Telephone [id number] Trae Pineda 1950 [facility] Provider Department Center 05/31/2023 3561-HARPREET WATSON TXP None No family history on file Normal [facility] CBC WITH AUTO DIFFERENTIALon 05-28-2023 Basophils (Bld) [#/Vol] 0.11 10*3/uL Normal 0.00-0.20 [facility] Comment on above: Performed By: #### L [id number] ####[facility] ([facility])[address] [place] [address] Basophils/100 WBC (Bld) 1.1 % High 0.0-1.0 [facility] Comment on above: Performed By: #### L [id number] ####[facility] ([facility])[address] [place] [address] Eosinophils (Bld) [#/Vol] 0.35 10*3/uL Normal 0.00-0.50 [facility] Comment on above: Performed By: #### L [id number] ####[facility] ([facility])[address] [place] [address] Eosinophils/100 WBC (Bld) 3.5 % Normal 0.0-6.0 [facility] Comment on above: Performed By: #### L [id number] ####[facility] ([facility])[address] [place] [address] Erythrocyte distribution width (RBC) [Ratio] 14.6 % Normal 11.5-15.0 [facility] Comment on above: Performed By: #### L [id number] ####[facility] ([facility])[address] [place] [address] ERYTHROCYTE MEAN CORPUSCULAR HEMOGLOBIN CONCENTRATION (G/DL) BY AUTOMATED 32.1 g/dL Normal 32.0-35.0 [facility] Comment on above: Performed By: #### L [id number] ####[facility] ([facility])[address] [place] [address] Hematocrit (Bld) [Volume fraction] 44.9 % Normal 39.0-55.0 [facility] Comment on above: Performed By: #### L [id number] ####[facility] ([facility])[address] [place] [address] Hemoglobin (Bld) [Mass/Vol] 14.4 g/dL Normal 13.0-17.0 [facility] Comment on above: Performed By: #### L [id number] ####[facility] ([facility])[address] [place] [address] Immature granulocytes (Bld) [#/Vol] 0.05 10*3/uL Normal 0.00-0.20 [facility] Comment on above: Performed By: #### L [id number] ####[facility] ([facility])[address] [place] [address] Immature granulocytes/100 WBC (Bld) 0.5 % Normal 0.0-1.0 [facility] Comment on above: Performed By: #### L [id number] ####[facility] ([facility])[address] [place] [address] Lymphocytes (Bld) [#/Vol] 2.26 10*3/uL Normal 1.20-4.00 [facility] Comment on above: Performed By: #### L [id number] ####[facility] ([facility])[address] [place] [address] Lymphocytes/100 WBC (Bld) 22.8 % Normal 20.0-45.0 [facility] Comment on above: Performed By: #### L [id number] ####[facility] ([facility])[address] [place] [address] MCH (RBC) [Entitic mass] 29.1 pg Normal 27.0-33.0 [facility] Comment on above: Performed By: #### L [id number] ####[facility] ([facility])[address] [place] [address] MCV (RBC) [Entitic vol] 90.7 fL Normal 82.0-98.0 [facility] Comment on above: Performed By: #### L [id number] ####[facility] ([facility])[address] [place] [address] Monocytes (Bld) [#/Vol] 0.92 10*3/uL Normal 0.10-1.00 [facility] Comment on above: Performed By: #### L [id number] ####[facility] ([facility])[address] [place] [address] Monocytes/100 WBC (Bld) 9.3 % Normal 5.0-12.0 [facility] Comment on above: Performed By: #### L [id number] ####[facility] ([facility])[address] [place] [address] Neutrophils (Bld) [#/Vol] 6.22 10*3/uL Normal 1.60-7.60 [facility] Comment on above: Performed By: #### L [id number] ####[facility] ([facility])[address] [place] [address] Neutrophils/100 WBC (Bld) 62.8 % Normal 40.0-72.0 [facility] Comment on above: Performed By: #### L [id number] ####[facility] ([facility])[address] [place] [address] NRBC (PER 100 WBCS) BY AUTOMATED COUNT 0.0 % Normal 0 [facility] Comment on above: Performed By: #### L [id number] ####[facility] ([facility])[address] [place] [address] PLATELETS (10*3/UL) IN BLOOD AUTOMATED COUNT 198 10*3/uL Normal 150-400 [facility] Comment on above: Performed By: #### L [id number] ####[facility] ([facility])[address] [place] [address] RBC (Bld) [#/Vol] 4.95 10*6/uL Normal 4.20-5.70 [facility] Comment on above: Performed By: #### L [id number] ####[facility] ([facility])[address] [place] [address] WBC (Bld) [#/Vol] 9.91 10*3/uL Normal 4.00-10.60 [facility] Comment on above: Performed By: #### L [id number] ####[facility] ([facility]US[facility])[address] [place] [address] Follow-Upon 05-28-2023 Follow-Up [id number] Trae Pineda 1950 M Date Provider Department Center 05/28/2023 Elena1-HARPREET WATSON [facility] [place] No family history on file Level of Service:28057 [place] OFFICE/OUTPATIENT ESTABLISHED MOD MDM 30-39 MIN Reason for Visit and Comments: Benign Prostatic Hypertrophy [310635513] Hypogonadism [185] - 3 mo follow-up with labs, pt had labs shortly after last appt Normal [facility] Labon 05-28-2023 Lab [id number] Trae Pineda 1950 M Date Provider Department Center 05/28/2023 2245-[facility] RESOURCE [facility] [place] [facility] No family history on file Normal [facility] PSA, SCREENINGon 05-28-2023 PROSTATE SPECIFIC AG (NG/ML) IN SER/PLAS 2.1 ng/mL Normal 0.4-4 [facility] Comment on above: Performed By: #### L [id number] ####[facility] ([facility])[address] [place] [address] TESTOSTERONEon 05-28-2023 TESTOSTERONE (NG/DL) IN SER/PLAS 510 ng/dL Normal 220-1000 [facility] Comment on above: Result Comment: Test Performed by [employer] [address] [place] [address] - Released 05/29/2023 04:45 Performed By: #### L [id number] #### [email or web address] [address] [facility] [place] [address] URINALYSIS WITH MICROSCOPICo n 05-28-2023 BILIRUBIN, TOTAL PRESENCE IN URINE Negative Normal Negative [facility] Comment on above: Performed By: #### L [id number] #### [facility] ([facility]) [address] [place] [address] CASTS IN URINE Present Abnormal None Seen [facility] Comment on above: Performed By: #### L [id number] #### [facility] ([facility]) [address] [place] [address] Clarity (U) Clear Normal Clear [facility] Comment on above: Performed By: #### L [id number] #### [facility] ([facility]) [address] [place] [address] Color (U) Holly Abnormal Yellow [facility] Comment on above: Performed By: #### L [id number] #### [facility] ([facility]) [address] [place] [address] Glucose (U) [Mass/Vol] Negative Normal Negative [facility] Comment on above: Performed By: #### L [id number] #### [facility] ([facility]) [address] [place] [address] HEMOGLOBIN PRESENCE IN URINE Negative Normal Negative [facility] Comment on above: Performed By: #### L [id number] #### [facility] ([facility]) [address] [place] [address] HYALINE CASTS /LPF IN URINE SEDIMENT BY MICROSCOPY 7 /LPF High <1 [facility] Comment on above: Performed By: #### L [id number] #### [facility] ([facility]) [address] [place] [address] Ketones Ql (U) Negative Normal Negative [facility] Comment on above: Performed By: #### L [id number] #### [facility] ([facility]) [address] [place] [address] LEUKOCYTE ESTERASE PRESENCE IN URINE BY TEST STRIP Negative Normal Negative [facility] Comment on above: Performed By: #### L [id number] #### [facility] ([facility]) [address] [place] [address] MUCUS (#/HPF) IN URINE SEDIMENT Occasional Normal None Seen, Occasional, Few [facility] Comment on above: Performed By: #### L [id number] #### [facility] ([facility]) [address] [place] [address] NITRITE PRESENCE IN URINE Negative Normal Negative [facility] Comment on above: Performed By: #### L [id number] #### [facility] ([facility]) [address] [place] [address] pH (U) 5.0 [pH] Normal 5.0-8.0 [facility] Comment on above: Performed By: #### L [id number] #### [facility] ([facility]) [address] [place] [address] Protein (U) [Mass/Vol] 30 mg/dL Abnormal Negative [facility] Comment on above: Performed By: #### L [id number] #### [facility] ([facility]) [address] [place] [address] RBC (#/HPF) IN URINE SEDIMENT None Seen Normal None Seen [facility] Comment on above: Performed By: #### L [id number] #### [facility] ([facility]) [address] [place] [address] Specific gravity (U) [Rel density] 1.024 High 1.015-1.020 [facility] Comment on above: Performed By: #### L [id number] #### [facility] [address] [place] [address] SQUAMOUS EPITHELIAL CELLS (#/HPF) IN URINE SEDIMENT Moderate Abnormal None Seen, Occasional [facility] Comment on above: Performed By: #### L [id number] #### [facility] ([facility]) [address] [place] [address] WBC (LEUKOCYTE) (#/HPF) IN URINE SEDIMENT 0-2 Abnormal None Seen [facility] Comment on above: Performed By: #### L [id number] #### [facility] ([facility]) [address] [place] [address] URINE CULTURE, ROUTINEon Bacteria identified Cx Nom (U) No growth at 48 hours Normal [facility] Comment on above: Performed By: #### L [id number] #### [facility] ([facility]) [address] [place] [address] CT CHEST WO CONon 03-07-2023 CT CHEST [...] SLOAN SOSA Date: 2023-03-07 10:24 Normal [facility] TESTOSTERONE, FREE,DIRECT, T OTALon 01-24-2023 Free Testosterone(Direct) 10.1 pg/mL Normal 6.6-18.1 [facility] Comment on above: Result Comment: Perf ormed at: BN Performed By: #### L BCL #### [facility] [address] [address] [address] Zan Escalante Testosterone [Mass/Vol] 622 ng/dL Normal 264-916 [facility] Comment on above: Result Comment: Adul t male reference interval is based on a population of healthy nonobese males (BMI <30) between 19 and 39 years old. Nate, et.al. JCEM 2017,102;6005-6314. PMID: [id number]. Performed at: CB Performed By: #### L BCL #### [facility] [address] [address] [address] Zan Escalante ESTRADIOLon 01-19-2023 Estradiol 21.4 pg/mL Normal 7.6-42.6 [facility] Comment on above: Result Comment: Roch lorenzo ECLIA methodology Performed By: #### L BCL #### [facility] [id number] Zan Escalante FSHon 01-19-2023 FSH 0.3 mIU/mL Critically low 1.5-12.4 [facility] Comment on above: Performed By: #### L BCFSH #### [facility] [address] [address] [address] Zan Escalante LUTEINIZING HORMONE (LH)on 0 01-19-2023 LH <0.3 Critically low 1.7-8.6 [facility] Comment on above: Performed By: #### L BCLH #### [facility] [address] [address] [address] Zan Escalante PROLACTINon 01-19-2023 Prolactin 6.5 ng/mL Normal 4.0-15.2 [facility] Comment on above: Performed By: #### L BCLH #### [facility] [address] [place] [address] Dr. Zan Escalante SEX HORMONE-BINDING GLOBULIN on 01-19-2023 Sex Horm Binding Glob, Serum 28.3 nmol/L Normal 19.3-76.4 [facility] Comment on above: Performed By: #### S EXHBG #### [facility] [address] [place] [address] Dr. Zan Escalante CHEMISTRYOrdered By: Lab ROP User on 12-12-2022 Glucose [Mass/Vol] 157 mg/dL High 55 - 99 mg/dL FTM C POC Subsection POC Device SN [id number] Invalid Interpretation Code FT POC Subsection POC User ID [id number] Invalid Interpretation Code [facility] POC Subsection POC Username THOMAS FARR Invalid Interpretation Code [facility] POC Subsection TESTOSTERONE, FREE,DIRECT, T OTALon 09-01-2022 Free Testosterone(Direct) 4.2 pg/mL Critically low 6.6-18.1 [facility] Comment on above: Result Comment: Perf ormed at: BN Performed By: #### T ESTFRD #### [facility] [address] [place] [address] Dr. Zan Escalante Testosterone [Mass/Vol] 171 ng/dL Critically low 264-916 [facility] Comment on above: Result Comment: Adul t male reference interval is based on a population of healthy nonobese males (BMI <30) between 19 and 39 years old. jeancarlos Sullivan.al. JCEM 2017,102;8747-4735. PMID: 86337653. Performed at: CB Performed By: #### T ESTFRD #### [facility] [address] [place] [address] Dr. Zan Escalante ESTRADIOLon 08-30-2022 Estradiol 28.9 pg/mL Normal 7.6-42.6 [facility] Comment on above: Result Comment: Roch e ECLIA methodology Performed By: #### L BCLH #### [facility] [address] [place] [address] Dr. Zan Escalante FSHon 08-30-2022 FSH 3.0 mIU/mL Normal 1.5-12.4 [facility] Comment on above: Performed By: #### L BCFSH #### [facility] [address] [place] [address] Dr. Zan Escalante LUTEINIZING HORMONE (LH)on LH 5.7 mIU/mL Normal 1.7-8.6 [facility] Comment on above: Performed By: #### L BCLH #### [facility] [address] [place] [address] Dr. Zan Escalante PROLACTINon 08-30-2022 Prolactin 8.6 ng/mL Normal 4.0-15.2 [facility] Comment on above: Performed By: #### L BCLH #### [facility] [address] [place] [address] Dr. Zan Escalante SEX HORMONE-BINDING GLOBULIN on 08-30-2022 Sex Horm Binding Glob, Serum 22.7 nmol/L Normal 19.3-76.4 [facility] Comment on above: Performed By: #### S EXHBG #### [facility] [address] [place] [address] Dr. Zan Escalante ECHOCARDIO M/2D COMPLETEon 0 07-31-2022 ECHOCARDIO M/2D COMPLETE Patient: TRAE PINEDA Exam Date: 07/31/2022 : 1950 Gender:M Ordering : DR MOI MOSS M.D. Admission #: [id number] Family : Order #: [id number] CLICK HERE TO VIEW EXAM ECHOCARDIOGRAM REPORT [...] Moss M.D. on 07/31/2022 at 18:09 Normal [facility] *URINE CATH CULTUREon 2021 *URINE CATH CULTURE Clinical Report: (D) Specimen/Source: URINE/INTRAOP SPEC Collected: 07/02/2022 14:53 Status: Final Last Updated: 07/04/2022 09:03 (1) 1. Urine GRAM (Final) Many Polys Few Gram Positive Cocci In Pairs And Chains ISO (Final) Staphylococcus epidermidis >10,000 Cfu/mL ISOLATE: Staphylococcus epidermidis --- JOSEPH (mcg/ml) NITROFURANTOIN (FT) <=16 Susceptible OXACILLIN (OX) <=0.25 Susceptible TETRACYCLINE (TE) <=0.5 Susceptible VANCOMYCIN (VA) 1 Susceptible Normal [facility] Comment on above: Order Comment: 1. Ur ine Performed By: #### 3 0478 #### [facility] [address] Operative Reporton 2 Operative Report MR#: [id number] [facility] Pt. Name: Trae Pineda Room #: 0C Discharge Date: Birthdate: 1950 OPERATIVE REPORT DATE OF SURGERY: 07/02/2022 SURGEON: Diony Ariza MD PATENT ATTORNEY: Kolby ARMANDO PGY3 PREOPERATIVE DIAGNOSIS: Benign prostatic [...] the room agreed. A well lubricated rigid 22-Kinyarwanda cystoscopic sheath with a 30-degree lens was [...] Jarrett MD Date Trans: 07/02/2022 03:30 P/ ZAN_JN:[id number] cc: Cristobal Kearns D.O. [address] [place] [address] [facility] [address] [place] [facility] POC GLUCOSE LABon 07-02-2022 Glucose [Mass/Vol] 130 mg/dL High 70-100 [facility] Comment on above: Performed By: #### 8 5499 #### [facility] [address] [place] [address], [facility] MICROALBUMIN URINEon 022 Albumin, Urine 42.2 ug/mL Normal Not Estab. [facility] Comment on above: Performed By: #### L BCLH #### [facility] [address] [address] [address] Zan Escalante CBC AUTO DIFFon 06-29-2022 BASO # 0.1 103/ul Normal 0.0-0.1 [facility] Comment on above: Performed By: #### C BC #### [facility] [address] [place] [address] Dr. Zan Escalante Basophils/100 WBC (Bld) 1.1 % Normal 0.2-2.0 [facility] Comment on above: Performed By: #### C BC #### [facility] [address] [place] [address] Dr. Zan Escalante EO # 0.6 103/ul Normal 0.0-0.7 [facility] Comment on above: Performed By: #### C BC #### [facility] [address] [place] [address] Dr. Zan Escalante Eosinophils/100 WBC (Bld) 7.0 % Normal 0.9-7.0 [facility] Comment on above: Performed By: #### C BC #### [facility] [address] [place] [address] Dr. Zan Escalante Erythrocyte distribution width (RBC) [Ratio] 13.8 % Normal 11.0-15.0 [facility] Comment on above: Performed By: #### C BC #### [facility] [address] [place] [address] Dr. Zan Escalante Hematocrit (Bld) [Volume fraction] 40.9 % Critically low 42.0-54.0 [facility] Comment on above: Performed By: #### C BC #### [facility] [address] [place] [address] Dr. Zan Escalante Hemoglobin (Bld) [Mass/Vol] 13.1 g/dL Critically low 14.0-18.0 [facility] Comment on above: Performed By: #### C BC #### [facility] [address] [place] [address] Dr. Zan Escalante IG # 0.04 10e3/ul Critically high 0.00-0.03 [facility] Comment on above: Performed By: #### C BC #### [facility] [address] [place] [address] Dr. Zan Escalante IG % 0.5 % Normal 0.0-0.5 [facility] Comment on above: Performed By: #### C BC #### [facility] [address] [place] [address] Dr. Zan Escalante LYMPH # 3.0 103/ul Normal 1.2-3.8 [facility] Comment on above: Performed By: #### C BC #### [facility] [address] [place] [address] Dr. Zan Escalante Lymphocytes/100 WBC (Bld) 33.4 % Normal 20.5-60.0 [facility] Comment on above: Performed By: #### C BC #### [facility] [address] [place] [address] Dr. Zan Escalante MANUAL DIFF REQ NO Normal [facility] Comment on above: Performed By: #### C BC #### [facility] [address] [place] [address] Dr. Zan Escalante MCH (RBC) [Entitic mass] 29.6 pg Normal 25.9-34.0 [facility] [facility] Comment on above: Performed By: #### C BC #### [facility] [address] [place] [address] Dr. Zan Escalante MCHC (RBC) [Mass/Vol] 32.0 g/dL Normal 29.9-35.2 [facility] Comment on above: Performed By: #### C BC #### [facility] [address] [place] [address] Dr. Zan Escalante MCV (RBC) [Entitic vol] 92.3 fL Normal 80.0-94.0 [facility] Comment on above: Performed By: #### C BC #### [facility] [address] [place] [address] Dr. Zan Escalante MONO # 0.8 103/ul Normal 0.3-0.8 [facility] Comment on above: Performed By: #### C BC #### [facility] [address] [address] [address] Zan Escalante Monocytes/100 WBC (Bld) 9.4 % Normal 1.7-12.0 [facility] Comment on above: Performed By: #### C BC #### [facility] [address] [place] [address] Dr. Zan Escalante NEUT # 4.3 103/ul Normal 1.4-6.5 [facility] Comment on above: Performed By: #### C BC #### [facility] [address] [place] [address] Dr. Zan Escalante Neutrophils/100 WBC (Bld) 48.6 % Normal 43.0-75.0 [facility] Comment on above: Performed By: #### C BC #### [facility] [address] [place] [address] Dr. Zan Escalante Platelet mean volume (Bld) [Entitic vol] 11.2 fL Normal 9.5-13.5 [facility] Comment on above: Performed By: #### C BC #### [facility] [address] [place] [address] Dr. Zan Escalante PLT 185 103/ul Normal 150-450 [facility] Comment on above: Performed By: #### C BC #### [facility] [address] [place] [address] Dr. Zan Escalante RBC 4.43 106/ul Critically low 4.70-6.10 [facility] Comment on above: Performed By: #### C BC #### [facility] [address] [place] [address] Dr. Zan Escalante WBC 8.9 103/ul Normal 4.0-11.0 [facility] Comment on above: Performed By: #### C BC #### [facility] [address] [place], [place] [address] Dr. Zan Escalante Covid-19 PCR ([facility])on 06-18 SARS-CoV-2 (COVID-19) RNA KRISTEL+probe Ql (Unsp spec) Not detected Normal NOT DETECTED [facility] Comment on above: Result Comment: This test is not yet approved or cleared by the [place] FDA. When there are no FDA-approved or cleared tests available, and other criteria are met, FDA can make tests available under an emergency access mechanism called an Emergency Use Authorization (EUA). The EUA for this test is supported by the [place] of Health and Human Service's (HHS's) declaration [...] consistent with SARS-CoV-2. Performed By: #### L [facility] #### [facility] [address] [place] [address] [address] [address] Zan Escalante GLYCOHEMOGLOBIN A1Con 2021 ADA RECOMMENDATION SEE BELOW Normal [facility] Comment on above: Result Comment: ADA RECOMMENDED LIMIT 4.0 - 6.0 ADA THERAPEUTIC TARGET < 7.0 ACTION SUGGESTED > 7.0 Performed By: #### A 1C #### [facility] [address] [place], [place] [id number] Dr. Zan Escalante Glucose [Mass/Vol] 143 mg/dL Normal [facility] Comment on above: Performed By: #### A 1C #### [facility] [address] [place] [address] [id number] [address] Zan Escalante HbA1c (Bld) [Mass fraction] 6.6 % Critically high 4.5-6.2 [facility] Comment on above: Performed By: #### A 1C #### [facility] [address] [address] [address] Zan Escalante LIPID PROFILEon 06-29-2022 CHOL-HDL RATIO NORM SEE BELOW Normal [facility] Comment on above: Result Comment: 3.3 - 4.4 LOW RISK 4.4 - 7.1 AVERAGE RISK 7.1 - 11.0 MODERATE RISK >11.0 HIGH RISK Performed By: #### B MP, LIPID #### [facility] [address] [address] [address] Zan Escalante Cholesterol [Mass/Vol] 105 mg/dL Normal <=200 [facility] Comment on above: Performed By: #### B MP, LIPID #### [facility] [address] [address] [address] Zan Escalante Cholesterol in HDL [Mass/Vol] 39 mg/dL Critically low 40-60 [facility] Comment on above: Performed By: #### B MP, LIPID #### [facility] [address] [address] [address] Zan Escalante Cholesterol in LDL [Mass/Vol] 45.0 mg/dL Normal [facility] Comment on above: Performed By: #### B MP, LIPID #### [facility] [address] [place], [place] [address] Dr. Zan Escalante Cholesterol.total/Ch olesterol in HDL [Mass ratio] 2.7 {ratio} Normal [facility] Comment on above: Performed By: #### B MP, LIPID #### [facility] [address] [place], [place] [address] Dr. Zan Escalante HDL NORMAL > or = 60 mg/dl - LO W CARDIOVASCULAR RISK <40 mg/dl - HIGH CARDIOVASCULAR RISK Normal [facility] Comment on above: Performed By: #### B MP, LIPID #### [facility] [address] [place], [place] [address] Dr. Zan Escalante LDL CALC NORMAL SEE BELOW Normal [facility] Comment on above: Result Comment: <100 mg/dl OPTIMAL 100 - 129 mg/dl NEAR OR ABOVE OPTIMAL 130 - 159 mg/dl BORDERLINE HIGH 160 - 189 mg/dl HIGH >190 mg/dl VERY HIGH Performed By: #### B MP, LIPID #### [facility] [address] [place] [address] Dr. Zan Escalante Triglyceride [Mass/Vol] 105 mg/dL Normal <=150 [facility] Comment on above: Performed By: #### B MP, LIPID #### [facility] [address] [place] [address] Dr. Zan Escalante VLDL CALC 21.0 mg/dL Normal [facility] Comment on above: Performed By: #### B MP, LIPID #### [facility] [address] [place] [address] Dr. Zan Escalante PROF CHEM 8 (BAS METB)on Anion gap [Moles/Vol] 12.1 mmol/L Normal [facility] Comment on above: Performed By: #### B MP, LIPID #### [facility] [address] [place] [address] Dr. Zan Escalante Calcium [Mass/Vol] 9.0 mg/dL Normal 8.5-10.1 [facility] Comment on above: Performed By: #### B MP, LIPID #### [facility] [address] [place] [address] Dr. Zan Escalante Chloride [Moles/Vol] 106 mmol/L Normal 98-107 [facility] Comment on above: Performed By: #### B MP, LIPID #### [facility] [address] [place] [address] Dr. Zan Escalante CO2 [Moles/Vol] 28.4 mmol/L Normal 21.0-32.0 [facility] Comment on above: Performed By: #### B MP, LIPID #### [facility] [address] [place] [address] Dr. Zan Escalante Creatinine [Mass/Vol] 1.39 mg/dL Critically high 0.70-1.30 [facility] Comment on above: Performed By: #### B MP, LIPID #### [facility] [address] [place] [address] Dr. Zan Escalante EGFR-AF MARTINIQUAIS >60 Normal >=60 [facility] Comment on above: Performed By: #### B MP, LIPID #### [facility] [address] [address] [address] Zan Escalante EGFR-NON AF MARTINIQUAIS 50 mL/min/1.73m2 Critically low >=60 [facility] Comment on above: Performed By: #### B MP, LIPID #### [facility] [address] [address] [address] Zan Escalante Glucose [Mass/Vol] 96 mg/dL Normal 74-106 [facility] Comment on above: Performed By: #### B MP, LIPID #### [facility] [address] [place] [address] Dr. Zan Escalante Potassium [Moles/Vol] 4.5 mmol/L Normal 3.5-5.1 [facility] Comment on above: Performed By: #### B MP, LIPID #### [facility] [address] [address] [address] Zan Escalante Sodium [Moles/Vol] 142 mmol/L Normal 136-145 [facility] Comment on above: Performed By: #### B MP, LIPID #### [facility] [address] [place] [address] Dr. Zan Escalante Urea nitrogen [Mass/Vol] 23.0 mg/dL Critically high 7.0-18.0 [facility] Comment on above: Performed By: #### B MP, LIPID #### [facility] [address] [place] [address] Dr. Zan Escalante Urea nitrogen/Creatinine [Mass ratio] 16.5 mg/mg Normal [facility] Comment on above: Performed By: #### B MP, LIPID #### [facility] [address] [place] [address] Dr. Zan Escalante ESTRADIOLon 04-17-2022 ESTRADIOL 20.7 pg/mL Low 27-52 [facility] [place] Normal [facility] Comment on above: Result Comment: Test Performed by [employer] [address] [place] [id number] - Released 04/17/2022 14:29 Result Comment: Test Performed by [employer] [address] [place] [address] - Released 04/17/2022 14:30 TESTOSTERONE, TOTAL ILon Testosterone [Mass/Vol] 108 ng/dL Low 220-1000 [facility] CT UROGRAMon 03-13-2022 CT UROGRAM [facility] Department of Radiology [address] [place] [address] Patient Name: TRAE PINEDA : 1950 Sex: M Age: Race: White Pt. Location: [facility] Patient Status: D Ordered Date: 02/22/2022 4:30:00 PM Completed Date: 03/13/2022 04:53 PM Requesting Provider: LUPIS DENNIS Attending Provider: LUPIS DENNIS Report Copy To: CRISTOBAL KEARNS Signs & Symptoms: R31.0 Gross hematuria I10 History: Jachin, DM? on metformin? kidney dis? YES DM COMING EARLY FOR LABS SLS Comments: Exam: CT UROGRAM CT UROGRAM 03/13/2022 4:53 PM CLINICAL INDICATIONS: [...] achievable Electronically signed: Aquilino Johnson. Transcribed by: [email or web address], User Resident: Electronically Signed by: AQUILINO JOHNSON @ 03/15/2022 01:05 PM Normal [facility] Vital Signs Date Time Vital Sign Value Performing Clinician Facility 05-18-2024 13:07-0400 Diastolic blood pressure 71 mm[Hg] Margareth De La Cruz [facility] 05-18-2024 13:07-0400 Heart rate 59 /min Margareth De La [facility] 05-18-2024 13:07-0400 Mean blood pressure 99 mm[Hg] Margareth De La [facility] 05-18-2024 13:07-0400 Respiratory rate 16 /min Margareth De La [facility] 05-18-2024 13:07-0400 Systolic blood pressure 156 mm[Hg] Margareth De La [facility] 03-27-2024 14:19-0400 Diastolic blood pressure 69 mm[Hg] Margareth De La [facility] 03-27-2024 14:19-0400 Heart rate 69 /min Margareth De La [facility] 03-27-2024 14:19-0400 Mean blood pressure 96 mm[Hg] Margareth De La [facility] 03-27-2024 14:19-0400 Respiratory rate 15 /min Margareth De La [facility] 03-27-2024 14:19-0400 Systolic blood pressure 151 mm[Hg] Margareth De La [facility] 02-14-2024 13:32-0400 Diastolic blood pressure 62 mm[Hg] Margareth De La [facility] 02-14-2024 13:32-0400 Heart rate 66 /min Margareth De La [facility] 02-14-2024 13:32-0400 Mean blood pressure 87 mm[Hg] Margareth De La [facility] 02-14-2024 13:32-0400 Respiratory rate 14 /min Margareth De La [facility] 02-14-2024 13:32-0400 Systolic blood pressure 136 mm[Hg] Margareth De La [facility] 01-15-2024 14:27-0500 Heart rate 63 /min John Cannon [facility] 01-15-2024 14:27-0500 SaO2% (BldA) [Mass fraction] 100 % Lopez Davis [facility] 01-15-2024 14:27-0500 Respiratory rate 16 /min John Cannon [facility] 01-15-2024 14:26-0500 Diastolic blood pressure 78 mm[Hg] John Cannon [facility] 01-15-2024 14:26-0500 Mean blood pressure 116 mm[Hg] John Cannon [facility] 01-15-2024 14:26-0500 Systolic blood pressure 192 mm[Hg] Lopez Davis [facility] 01-15-2024 14:17-0500 Diastolic blood pressure 76 mm[Hg] John Davis [facility] 01-15-2024 14:17-0500 Heart rate 66 /min John Cannon [facility] 01-15-2024 14:17-0500 Respiratory rate 14 /min John Cannon [facility] 01-15-2024 14:17-0500 SaO2% (BldA) [Mass fraction] 96 % John Davis [facility] 01-15-2024 14:17-0500 Systolic blood pressure 143 mm[Hg] Lopez Davis [facility] 01-15-2024 13:42-0500 gluc 128 mg/dL John Davis [facility] Comment on above: Result Comment: per pt's meter on right arm 01-15-2024 13:30-0500 Heart rate 60 /min John Cannon [facility] 01-15-2024 13:30-0500 SaO2% (BldA) [Mass fraction] 99 % John Cannon [facility] 01-15-2024 13:30-0500 Body temperature 97.34 [degF] John Cannon [facility] 01-15-2024 13:30-0500 Diastolic blood pressure 78 mm[Hg] John Cannon [facility] 01-15-2024 13:30-0500 Mean blood pressure 111 mm[Hg] John Cannon [facility] 01-15-2024 13:30-0500 Systolic blood pressure 175 mm[Hg] John Cannon [facility] 01-15-2024 13:29-0500 Respiratory rate 14 /min John Cannon [facility] 12-16-2023 10:23-0500 Diastolic blood pressure 66 mm[Hg] Margareth De La [facility] 12-16-2023 10:23-0500 Heart rate 70 /min Margareth De La [facility] 12-16-2023 10:23-0500 Mean blood pressure 92 mm[Hg] Margareth De La [facility] 12-16-2023 10:23-0500 Respiratory rate 14 /min Margareth De La [facility] 12-16-2023 10:23-0500 Systolic blood pressure 144 mm[Hg] Margarethita De La [facility] 11-12-2023 10:00-0500 Body height 182.88 cm Cristobal Kearns Other [employer] Other 11-12-2023 10:00-0500 Body mass index (BMI) [Ratio] 32.46 kg/m2 Cristobal Kearns Other [employer] Other 11-12-2023 10:00-0500 Body weight 108.59 kg Cristobal Ball Other [facility] [employer] Other 11-12-2023 10:00-0500 Diastolic blood pressure 76 mm[Hg] Cristobal Ball Other [employer] Other 11-12-2023 10:00-0500 Respiratory rate 16 /min Cristobal Ball Other [facility] [employer] Other 11-12-2023 10:00-0500 Systolic blood pressure 137 mm[Hg] Cristobal Ball Other [facility] [employer] Other 11-08-2023 10:58-0500 Diastolic blood pressure 71 mm[Hg] Margareth [employer] [facility] 11-08-2023 10:58-0500 Heart rate 63 /min Margareth [employer] [facility] 11-08-2023 10:58-0500 Mean blood pressure 93 mm[Hg] Margareth [employer] [facility] 11-08-2023 10:58-0500 Respiratory rate 15 /min Margareth [employer] [facility] 11-08-2023 10:58-0500 Systolic blood pressure 136 mm[Hg] Marg[facility] [employer] [facility] 09-06-2023 11:09-0400 Diastolic blood pressure 77 mm[Hg] [facility] [employer] [facility] 09-06-2023 11:09-0400 Heart rate 59 /min Marg[facility] [employer] [facility] 09-06-2023 11:09-0400 Mean blood pressure 106 mm[Hg] Margareth [employer] [facility] 09-06-2023 11:09-0400 Respiratory rate 16 /min Margareth [employer] [facility] 09-06-2023 11:09-0400 Systolic blood pressure 163 mm[Hg] Margarethita De La [facility] 08-06-2023 14:22-0400 Heart rate 59 /min Himanshu Adriana [facility] 08-06-2023 14:22-0400 SaO2% (BldA) [Mass fraction] 99 % Himanshu Adriana [facility] 08-06-2023 14:22-0400 Diastolic blood pressure 91 mm[Hg] Himanshu Adriana [facility] 08-06-2023 14:22-0400 Mean blood pressure 107 mm[Hg] Himanshu Adriana [facility] 08-06-2023 14:22-0400 Systolic blood pressure 139 mm[Hg] Himanshu Adriana [facility] 08-06-2023 14:15-0400 Diastolic blood pressure 80 mm[Hg] Himanshu Adriana [facility] 08-06-2023 14:15-0400 Heart rate 58 /min Himanshu Adriana [facility] 08-06-2023 14:15-0400 SaO2% (BldA) [Mass fraction] 97 % Himanshu Adriana [facility] 08-06-2023 14:15-0400 Systolic blood pressure 146 mm[Hg] Himanshu Adriana [facility] 08-06-2023 13:52-0400 Respiratory rate 14 /min Himanshu Adriana [facility] 08-06-2023 13:00-0400 Body temperature 98.06 [degF] Himanshu Adriana [facility] 08-06-2023 13:00-0400 Diastolic blood pressure 70 mm[Hg] Himanshu Wright [facility] 08-06-2023 13:00-0400 Heart rate 67 /min Himanshu Wright [facility] 08-06-2023 13:00-0400 Systolic blood pressure 144 mm[Hg] Himanshu Wright [facility] 07-02-2023 14:17-0400 Diastolic blood pressure 71 mm[Hg] Margareth De La [facility] 07-02-2023 14:17-0400 Heart rate 61 /min Margareth [employer] [facility] 07-02-2023 14:17-0400 Mean blood pressure 97 mm[Hg] Margareth [employer] [facility] 07-02-2023 14:17-0400 Respiratory rate 14 /min Margareth [employer] [facility] 07-02-2023 14:17-0400 Systolic blood pressure 148 mm[Hg] Margareth [employer] [facility] 01-11-2023 13:43-0500 Diastolic blood pressure 75 mm[Hg] Margareth [employer] [facility] 01-11-2023 13:43-0500 Heart rate 76 /min Margareth [employer] [facility] 01-11-2023 13:43-0500 Mean blood pressure 105 mm[Hg] Margareth [employer] [facility] 01-11-2023 13:43-0500 Respiratory rate 18 /min Margareth [employer] [facility] 01-11-2023 13:43-0500 Systolic blood pressure 166 mm[Hg] [employer] [facility] 01-08-2023 13:30-0500 Body height 182.88 cm Cristobal Ball Other [employer] Other 01-08-2023 13:30-0500 Body mass index (BMI) [Ratio] 32.11 kg/m2 Cristobal Ball Other [employer] Other 01-08-2023 13:30-0500 Body weight 107.41 kg Cristobal Ball Other [employer] Other 01-08-2023 13:30-0500 Diastolic blood pressure 70 mm[Hg] Cristobal Ball Other [employer] Other 01-08-2023 13:30-0500 Respiratory rate 16 /min Cristobal [employer] Other [employer] Other 01-08-2023 13:30-0500 Systolic blood pressure 126 mm[Hg] Cristobal Ball Other [employer] Other 12-12-2022 11:00-0500 Heart rate 73 /min Tutu Zumbar [facility] 12-12-2022 11:00-0500 SaO2% (BldA) [Mass fraction] 98 % Tutu Zumbar [facility] 12-12-2022 11:00-0500 Diastolic blood pressure 75 mm[Hg] Tutu Zumbar [facility] 12-12-2022 11:00-0500 Mean blood pressure 108 mm[Hg] Tutu Zumbar [facility] 12-12-2022 11:00-0500 Systolic blood pressure 173 mm[Hg] Tutu Zumbar [facility] 12-12-2022 10:51-0500 Diastolic blood pressure 88 mm[Hg] Tutu Zumbar [facility] 12-12-2022 10:51-0500 Heart rate 71 /min Tutu Zumbar [facility] 12-12-2022 10:51-0500 Respiratory rate 16 /min Tutu Zumbar [facility] 12-12-2022 10:51-0500 SaO2% (BldA) [Mass fraction] 96 % Tutu Zumbar [facility] 12-12-2022 10:51-0500 Systolic blood pressure 157 mm[Hg] Tutu Zumbar [facility] 12-12-2022 10:13-0500 Heart rate 75 /min [facility]u Zumbar [facility] 12-12-2022 10:13-0500 SaO2% (BldA) [Mass fraction] 97 % Tutu Zumbar [facility] 12-12-2022 10:13-0500 Body temperature 97.88 [degF] Tutu Zumbar [facility] 12-12-2022 10:12-0500 Diastolic blood pressure 76 mm[Hg] Tutu Zumbar [facility] 12-12-2022 10:12-0500 Mean blood pressure 108 mm[Hg] Tutu Zumbar [facility] 12-12-2022 10:12-0500 Systolic blood pressure 170 mm[Hg] Tutu Zumbar [facility] 12-12-2022 10:10-0500 Respiratory rate 16 /min Tutu Zumbar [facility] 11-08-2022 15:04-0500 Diastolic blood pressure 76 mm[Hg] Tutu Barriosumbar [facility] 11-08-2022 15:04-0500 Heart rate 62 /min [facility]u [facility]riosum[facility] 11-08-2022 15:04-0500 Mean blood pressure 108 mm[Hg] Tutu Barriosumbar [facility] 11-08-2022 15:04-0500 Respiratory rate 14 /min Tutu Katzar [facility] 11-08-2022 15:04-0500 Systolic blood pressure 173 mm[Hg] Tututate Katzar [facility] Encounters Encounter Date Encounter Type Care Provider Facility Start: 05-19-2024 End: 05-19-2024 ambulatory [facility] Start: 05-18-2024 End: 05-18-2024 ambulatory Margareth De La Cruz Facility:[facility] Start: 05-18-2024 End: 05-18-2024 Pain Management Margareth De La [facility] Start: 05-11-2024 End: 05-11-2024 ambulatory [facility] Start: 05-11-2024 End: 05-11-2024 ambulatory [facility] Start: 03-27-2024 End: 03-27-2024 ambulatory CRISTOBAL KEARNS Facility:[facility] Start: 03-27-2024 End: 03-27-2024 Pain Management Margareth De La [facility] Start: 03-17-2024 End: 03-17-2024 ambulatory [facility] Start: 02-14-2024 End: 02-14-2024 ambulatory CRISTOBAL KEARNS Facility:[facility] Start: 02-14-2024 End: 02-14-2024 Pain Management Margarethita De La [facility] Start: 02-11-2024 End: 02-11-2024 ambulatory Cristobal Kearns Other [employer] Other Start: 02-11-2024 Telephone encounter Cristobal Kearns [facility] Start: 01-20-2024 End: 01-20-2024 ambulatory [facility] Start: 01-15-2024 End: 01-15-2024 ambulatory John Cannon Facility:[facility] Start: 01-15-2024 End: 01-15-[address] [facility] Start: 01-01-2024 End: 01-01-2024 ambulatory [facility] Start: 12-16-2023 End: 12-16-2023 ambulatory CRISTOBAL KEARNS Facility:[facility] Start: 12-16-2023 End: 12-16-2023 Pain Management Margarethita De La [facility] Start: 12-10-2023 End: 12-10-2023 ambulatory [facility] Start: 11-27-2023 End: 11-27-2023 ambulatory Cristobal Ball Other [employer] Other Start: 11-27-2023 Telephone encounter Cristobal Ball FP [facility] Start: 11-19-2023 End: 11-19-2023 ambulatory Cristobal Ball Other [employer] Other Start: 11-19-2023 Telephone encounter Cristobal Ball FP [facility] Start: 11-14-2023 End: 11-14-2023 ambulatory Cristobal Ball Other [employer] Other Start: 11-14-2023 Telephone encounter Cristobal Ball FP [facility] Start: 11-12-2023 End: 11-12-2023 ambulatory Cristobal Kearns Other [employer] Other Start: 11-12-2023 Office outpatient vi sit 25 minutes Cristobal Kearns [facility] Start: 11-08-2023 End: 11-08-2023 ambulatory CRISTOBAL KEARNS Facility:[facility] Start: 11-08-2023 End: 11-08-2023 Pain Management Margareth De La [facility] Start: 10-28-2023 End: 10-28-2023 ambulatory [facility] Start: 09-06-2023 End: 09-06-2023 ambulatory CRISTOBAL KEARNS Facility:[facility] Start: 09-06-2023 End: 09-06-2023 Pain Management Margareth De La [facility] Start: 09-04-2023 End: 09-04-2023 ambulatory Cristobal Kearns Other [employer] Other Start: 09-04-2023 Telephone encounter Cristobal Kearns [facility] Start: 09-03-2023 End: 09-03-2023 ambulatory [facility] Start: 08-21-2023 End: 08-21-2023 ambulatory Cristobal Kearns Other [employer] Other Start: 08-21-2023 Telephone encounter [facility] Start: 08-06-2023 End: 08-06-2023 ambulatory MD Himanshu Wright Facility:[facility] – [place] Start: 08-06-2023 End: 08-06-2023 Pain Management [address] [facility] Start: 07-23-2023 End: 07-23-2023 ambulatory Cristobal Kearns Other [employer] Other Start: 07-23-2023 Telephone encounter Cristobal Kearns [facility] Start: 07-02-2023 End: 07-02-2023 ambulatory CRISTOBAL KEARNS Facility:[facility] [place] Start: 07-02-2023 End: 07-02-2023 Pain Management Margareth De La Cruz [facility] Start: 06-04-2023 End: 06-04-[facility] Start: 05-28-2023 ambulatory DIONY VELAZQUEZMARYSCARLETT [facility] Start: 05-28-2023 End: 05-28-2023 ambulatory HARPREET WATSON [facility] Start: 03-19-2023 End: 03-19-2023 ambulatory Cristobal Kearns Other [employer] Other Start: 03-19-2023 Office outpatient vi sit 15 minutes Cristobal Kearns [facility] Start: 03-08-2023 End: 03-08-2023 ambulatory Cristobal Kearns Other [employer] Other Start: 03-08-2023 Telephone encounter Cristobal Kearns [facility] Start: 03-07-2023 Telephone encounter Cristobal TELLEZ [facility] Start: 03-07-2023 End: 03-08-[address] CRISTOBAL KEARNS [facility] Other Start: 02-26-2023 End: 02-26-2023 ambulatory Cristobal Kearns Other [employer] Other Start: 02-26-2023 Telephone encounter Cristobal Kearns [facility] Start: 01-18-2023 Telephone encounter Cristobal TELLEZ [facility] Start: 01-18-2023 End: 01-19-[address] DOCTOR ADAMS [facility] Other Start: 01-11-2023 End: 01-11-2023 Pain Management Margareth De La Cruz [facility] Start: 01-08-2023 End: 01-08-2023 ambulatory Cristobal Kearns Other [facility] [employer] Other Start: 01-08-2023 Office outpatient vi sit 25 minutes Cristobal Kearns [facility] Start: 12-12-2022 End: 12-12-2022 Pain [address] [facility] Start: 11-23-2022 End: 11-23-[address] CRISTOBAL KEARNS Facility:[facility] Start: 11-18-2022 End: 11-22-[address] CRISTOBAL KEARNS Facility:[facility] Start: 11-08-2022 End: 11-08-2022 Patient encounter procedure Tutu Barriosumbar [facility] Start: 11-08-2022 End: 11-08-2022 Pain Management [address]um[address] [facility] Start: 08-29-2022 End: 08-30-[address] DOCTOR ADAMS Facility:[facility] Start: 07-31-2022 End: 08-01-[address] MOI MOSS Facility:[facility] Start: 07-02-2022 Encounter for preprocedural laboratory examination DR CRISTOBAL KEARNS [facility] Start: 06-29-2022 End: 06-30-2022 Encounter for preprocedural laboratory examination DR CRISTOBAL KEARNS Facility:[facility] Start: 06-29-2022 End: 06-30-[address] CRISTOBAL KEARNS Facility:[facility] Start: 06-14-2022 End: 11-17-[address] CRISTOBAL KEARNS Facility:[facility] Start: 03-13-2022 End: 03-14-2022 ambulatory LUPIS DENNIS [facility] Procedures Date Procedure Procedure Detail Performing Clinician Start: 05-11-2024 Follow-up visit Follow-up DIONY ARIZA Start: 01-15-2024 Epidural injection o f lumbar spine using fluoroscopic guidance [employer] Comment on above: 0% relief Start: 08-06-2023 Injection of nerve r oot of lumbar spine using fluoroscopic guidance [employer] Comment on above: bilat L5/S1 TFESI- 9 0% relief x 2 weeks Start: 12-12-2022 Injection of nerve r oot of lumbar spine using fluoroscopic guidance [employer] Comment on above: L5-S1-90% relief Start: 04-17-2022 PSA screening LUPIS DENNIS Comment on above: Performed By: #### 4 [id number] #### [facility] [address] Start: 11-22-2021 Injection of nerve r oot of lumbar spine using fluoroscopic guidance Tutu Guzman Comment on above: Bilateral L5 TFESI-9 0-95% relief Start: 07-01-2020 Epidural steroid injection Tutu Guzman Comment on above: bilat L5 TFESI- 100% relief x 2 weeks now down to 50% Coronary bypass gustabo t angiography Tutu Katzar Comment on above: 2004 Decompression of med oleksandr nerve Tutu Barriosumbar Comment on above: right 2012 Fracture of ankle (disorder) Tutu Barriosumbar Comment on above: 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 purified surface antigen) Cristobal Kearns Other [employer] Other 08-11-2021 COVID-19 Vaccine Pfi zer - Documentation Purposes Only Cristobal Kearns Other [employer] Other 01-10-2021 COVID-19 Vaccine Pfi zer - Documentation Purposes Only Cristobal Kearns Other [employer] Other 12-20-2020 COVID-19 Vaccine Pfi zer - Documentation Purposes Only Cristobal Kearns Other [employer] Other 08-12-2020 zoster vaccine, live Benjneva Kearns Other [employer] Other 07-27-2020 influenza virus vaccine, split virus (incl. purified surface antigen) Cristobal Kearns Other [employer] Other 08-26-2019 influenza virus vaccine, split virus (incl. purified surface antigen) Cristobal Kearns Other [employer] Other 10-29-2018 influenza virus vaccine, split virus (incl. purified surface antigen) Cristobal Kearns Other [employer] Other 07-19-2017 influenza virus vaccine, split virus (incl. purified surface antigen) Cristobal Kearns Other [employer] Other 10-09-2016 influenza virus vaccine, split virus (incl. purified surface antigen) Cristobal Kearns Other [employer] Other 10-18-2015 influenza virus vaccine, split virus (incl. purified surface antigen) Cristobal Kearns Other [employer] Other 09-20-2015 pneumococcal conjuga te vaccine, 13 valent Cristobal Kearns Other [employer] Other 11-07-2012 pneumococcal polysaccharide vaccine, 23 valent Cristobal Kearns Other [employer] Other Payers Date Payer Category Payer Private Health Insurance [id number] 1950 Unknown [id number] 2.16.8 [id number] 1950 Unknown [id number] 2.16.84 0.1.801684.3.579.2.593 1950 Unknown [id number] 2.16.84 0.1.276943.3.579.2.593 1950 Unknown [id number] 2.16.84 0.1.654323.3.579.2.593 1950 Unknown [id number] 2.16.84 0.1.517920.3.579.2.593 1950 Unknown [id number] 2.16.84 0.1.178216.3.579.2.593 1950 Unknown [id number] 2.16.84 0.1.943038.3.579.2.593 1950 Unknown [id number] 2.16.84 0.1.926359.3.579.2.593 1950 Unknown [id number] 2.16.84 0.1.633399.3.579.2.593 1950 Unknown [id number] 2.16.84 0.1.065378.3.579.2.593 1950 Unknown [id number] 2.16.8 40.1.110189.3.579.2.727 1950 Unknown [id number] 2.16.8 40.1.005615.3.579.2.727 1950 Unknown [id number] 2.16.8 40.1.060775.3.579.2.727 1950 Unknown [id number] 2.16.8 40.1.868528.3.579.2.727 1950 Unknown [id number] 2.16.8 40.1.832630.3.579.2.727 1950 Unknown [id number] 2.16.8 40.1.219558.3.579.2.727 1950 Unknown [id number] 2.16.8 40.1.930838.3.579.2.727 1950 Unknown [id number] 2.16.8 40.1.120070.3.579.2.727 1950 Unknown [id number] 2.16.8 40.1.736309.3.579.2.727 Social History Date Type Detail Facility Start: 10-05-2021 Tobacco smoking status Ex-smoker (fi nding) [facility] Comment on above: Quit in [address] Male [facility] Medical Equipment Procedure Code Equipment Code Equipment Origin al Text Equipment Identifier Dates Start: 04-09-2023 Functional Status Date Assessment Result Facility 05-18-2024 Functional Status N/A [facility] 03-27-2024 Functional Status N/A [facility] 02-14-2024 Functional Status N/A [facility] 01-15-2024 Functional Status N/A [facility] 12-16-2023 Functional Status N/A [facility] 11-08-2023 Functional Status N/A [facility] 09-06-2023 Functional Status N/A [facility] 08-06-2023 Functional Status N/A [facility] 07-02-2023 Functional Status N/A [facility] 01-11-2023 Functional Status N/A [facility] 12-12-2022 Functional Status N/A [facility] 11-08-2022 Functional Status N/A [facility] Clinical Notes 01-08-2023 to 05-19-2024 Note Date & Type Note Facility 05-19-2024 Note -------- Attestation signed by Diony Ariza MD at 05/19/2024 5:48 PM I personally saw and examined Trae Pineda 74 y.o. male on the same date of service as resident / student and scribe. I discussed the findings, differential diagnosis and management in detail with the patient and team. I reviewed the data and have answered all questions. My personal impression is noted in assessment and plan section. I have edited the note which was scribed for me by scribe to document all of the above findings during this visit on my behalf. I personally performed the entire service and the documentation is accurate and complete. Diagnoses and all orders for this visit: Benign prostatic hyperplasia with incomplete bladder emptying - dutasteride (Avodart) 0.5 mg capsule; Take 1 capsule (0.5 mg) by mouth in the morning. - CBC and differential; Future - PSA Screening; Future - Cancel: Testosterone; Future - Testosterone, free and total, and SHBG; Future Incomplete bladder emptying - dutasteride (Avodart) 0.5 mg capsule; Take 1 capsule (0.5 mg) by mouth in the morning. - CBC and differential; Future - PSA Screening; Future Chronic prostatitis - CBC and differential; Future - PSA Screening; Future - Testosterone, free and total, and SHBG; Future Hypogonadism in male - CBC and differential; Future - PSA Screening; Future - Cancel: Testosterone; Future - Testosterone, free and total, and SHBG; Future Erectile dysfunction, unspecified erectile dysfunction type - CBC and differential; Future - PSA Screening; Future - Testosterone, free and total, and SHBG; Future Encounter for screening for malignant neoplasm of prostate - PSA Screening; Future -Start with medical management per patient request. Will start dutasteride daily. Will check him in 6 months for TRUS volume. 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 -Will obtain flow PVR at return visit -Decrease AndroGel to 1 pump per day as levels have increased and his prostate is getting larger. -Postvoid residual today was 228 cc -------- Urology Clinic H&P Dr. Diony Ariza MD Patient: Trae Pineda Date of : 1950 CHIEF COMPLAINT: Low testosterone, BPH HISTORY OF PRESENT ILLNESS: The patient is a 74 y.o. male who presents to the clinic for follow-up after urodynamic procedure. 05/19/24 Prostate cancer screening FH of prostate cancer: father PSA Trend 2.38 (2024) 2.2 (09/2023) 2.41 (08/2023) 2.1 (05/2023) 2.0 (02/2023) 1.4 (03/2022) Plan to repeat PSA in 6 month time Urinary urgency Patient states that when he has to go, he cannot hold it. He reports that sometimes he is unable to make it to the bathroom History of terminal dribbling to the point that he has to change his clothes Bothersome urgency with frequency AUA symptom score is 15 wevaeru-ob-ucjp is 4 Incomplete bladder emptying After urinating, patient reports that he often feels as if he is not emptying completely. Hypogonadism Testosterone levels 518 on 03/04/24 444 on 11/26/23 374 on 08/30/23 We will drop testosterone to one pump daily Patient does report a history of chronic back pain. Patient underwent urodynamics. During the filling phase 1- Filling is at 51 cc/min rate 2- Sensation is intact and first sensation is at 361 cc 3- Strong desire is at 740 cc volume 4- Bladder capacity is 640 5- Involuntary bladder contractions: no 6- Stress Urinary incontinence: no 7- Bladder compliance is normal during the filling phase 8- EMG coordinated During the Voiding phase 1- Hesitancy is present 2- Patient is able to void with Detrusor pressure at 80 cm H2O with maximum flow rate at 6.6 cc/sec. 3- The patient has a PVR of 257 cc 4- EMG showed Dysfunctional firing during void Impression: High pressure low flow void Suggestive of outlet obstruction Incomplete voiding. History Prostate cancer screening FH of prostate cancer: father PSA Trend 2.38 (2024) 2.2 (09/2023) 2.41 (08/2023) 2.1 (05/2023) 2.0 (02/2023) 1.4 (03/2022) Urinary urgency Patient states that when he has to go, he cannot hold it. He reports that sometimes he is unable to make it to the bathroom History of terminal dribbling to the point that he has to change his clothes Bothersome urgency with frequency AUA symptom score is 15 [id number]-sk-sruv is 4 Incomplete bladder emptying After urinating, patient reports that he often feels as if he is not emptying completely. Hypogonadism Testosterone levels 518 on 03/04/24 444 on 11/26/23 374 on 08/30/23 Patient does report a history of chronic back pain (more content not included)... [facility] 05-18-2024 Evaluation + Plan note Extrac priscilla from: Title:Pain Managment Follow up Author:Margareth Umaña Date:05/18/24 Impression and Plan Patient is a 74-year-old male with a past medical history significant for lumbar stenosis and lumbosacral neuritis. He has lower back pain with right radiating leg pain. This affects his ambulatory status. This affects his quality life. This affects activities affects his ability to do things he wants to do. This is very bothersome to him. He has the pain that he rates a 3 9/10. We had a long question once again about his options. He is going to consider further seeing the spine surgeon but at this time he wants to await this. He is still dealing with his and her health issues. We are going to increase the Lyrica. We are going to have him try to work up to 50 mg twice daily. Potential side effects was discussed. OARRS is reviewed. Prescription sent. Follow-up in 4 to 6 weeks. He will call us in the interim should he require anything from our services. LEONOR score: 40%. Future Appointments Appointment Date:07/01/2024 01:00:00 PM Scheduled Provider:Margareth De La Cruz PA-C Location[facility] Appointment Type:Pain Management - Follow Up (FT) [facility]07-01-2024 NoteConsultation Note Patient: TRAE PINEDA Age: 74 years Sex: Male : 1950 Associated Diagnoses: None Author: Margareth De La Cruz PA-C Subjective Chief complaint 05/18/2024 13:07 EDT lower back pain . Patient is a 73-year-old male. He has a past medical history significant for lumbosacral stenosis, lumbar spondylosis, and lumbosacral neuritis. Historically, injections help with that his most recent ones have not. He has lower back pain with right buttock pain and right radiating leg pain that he rates a 3-9/10. He has thought about seeing a surgeon and he would like to see a local surgeon but he would like tostill put this on hold as his is still undergoing evaluation for stomach cancer and possible pancreatic cancer. He has the pain that he rates a 3?9/10 and is worse with standing and bending. Worse with certain activities. Worse with ambulation. His quality of life is significantly diminished because of this but he wants to put himself on hold as he is still dealing with his . Health Status Allergies: Allergic Reactions (Selected) Severity Not Documented HydrALAZINE- Palpatations. Statins- Muscle ache., Allergies (2) Active Severity Reaction statins muscle ache hydrALAZINE palpatations Current medications: (Selected) Prescriptions Prescribed Lyrica 25 mg Cap: 1-2 cap(s), Oral, BID, # 120 tab(s), Refills(s) 0, Pharmacy: [facility]/pharmacy #[id number], 183, cm, 05/18/24 13:21:00 EDT, Height/Length Dosing, 107, kg, 05/18/24 13:21:00 EDT, Weight Dosing baclofen 5 mg oral tablet: 5 mg = 1 tab(s), Oral, TID, PRN Spasm, # 30 tab(s), Refills(s) 0, Pharmacy: [facility]/pharmacy #[id number], 183, cm, 02/14/24 13:46:00 EDT, Height/Length Dosing, 110.3, kg, 02/14/24 13:46:00 EDT, Weight Dosing gabapentin 300 mg Cap: 300 mg = 1 cap(s), Oral, Once a day (at bedtime), # 30 cap(s), Refills(s) 1,[id number], cm, 12/16/23 10:37:00 EST, Height/Length Dosing, 102.3, kg, 12/16/23 10:37:00 EST, Weight Dosing Documented Medications Documented Alpha Lipoic Acid 600 mg oral capsule: 600 mg = 1 cap(s), Oral, Daily, Refills(s) 0 Antibiotic: Antibiotic Cialis 5 mg oral tablet: 5 mg = 1 tab(s), Oral, Daily, Refills(s) 0 Humulin 70/30: 25-10 units, BIDAC, Refill(s) 0 Norvasc: 20 mg, Oral, Daily, Refills(s) 0 PreserVision AREDS: [...] History of heart attack / SNOMED CT 3995283756 / Confirmed Acute angina / SNOMED CT 635702259 / Confirmed Irregular heart beat / SNOMED CT 555065768 / Confirmed HTN (hypertension) / SNOMED CT 3605880335 / Confirmed High cholesterol / SNOMED CT 31043021 / Confirmed H/O heart bypass surgery / SNOMED CT 436965702 / Confirmed Apnea, sleep / SNOMED CT 167271877 / Confirmed CPAP (continuous positive airway pressure) dependence / SNOMED CT 7352882553 / Confirmed Enlarged prostate / SNOMED CT 910946074 / Confirmed Chronic kidney disease (CKD) / SNOMED CT 6418561896 / Confirmed Diabetes / SNOMED CT 489917032 / Confirmed Carpal tunnel syndrome / SNOMED CT 38074849 / Confirmed Anemia / SNOMED CT 823774323 / Confirmed Arthritis, rheumatoid / SNOMED CT 166828210 / Confirmed Obesity / ICD-9-CM 278.00 / Possible Obesity / SNOMED CT [id number] / Possible Objective Vital Signs 05/18/2024 13:07 EDT Peripheral Pulse Rate 59 bpm LOW Respiratory Rate 16 br/min Systolic Blood Pressure 156 mmHg HI Diastolic Blood Pressure 71 mmHg Mean Arterial Pressure, Cuff 99 mmHg General: Alert and oriented, No acute distress. Eye: Normal conjunctiva. HENT: Normocephalic, Normal hearing. Cardiovascular: No edema. Musculoskeletal Normal range of motion. Normal strength. 5/5 lower extremity strength other than right hip flexion, ADF and EHL 4/5 Positive right straight leg raise Integumentary: Warm, Dry, [place]. Neurologic: Alert, Oriented. Psychiatric: Cooperative, Appropriate mood & affect. 14 point review of systems was negative unless otherwise noted. Results Review Lumbar MRI once again reviewed. Multilevel lumbar stenosis, foraminal stenosis and spondylosis. Impression and Plan Patient is a 74-year-old male with a past medical history significant for lumbar stenosis and lumbosacral neuritis. He has lower back pain with right radiating leg pain. This affects his ambulatory status. This affects his quality life. This affects activities affects his ed (more content not included)...[facility]:Result Comment: Electronically Signed By: Margareth De La Cruz PA-C\.dawit\Date and Time Signed: 05/18/24 13:44 [id number] NoteDiagnosis: Benign prostatic hyperplasia with incomplete bladder emptying (Primary) Prostate cancer screening Chronic prostatitis Hypogonadism in male Benign prostatic hyperplasia with lower urinary tract symptoms, symptom details unspecified Suprapubic discomfort Dysuria Erectile dysfunction, unspecified erectile dysfunction type Cystitis cystica During the filling phase 1- Filling is at 51 cc/min rate 2- Sensation is intact and first sensation is at 361 cc 3- Strong desire is at 740 cc volume 4- Bladder capacity is 640 5- Involuntary bladder contractions: no 6- Stress Urinary incontinence: no 7- Bladder compliance is normal during the filling phase 8- EMG coordinated During the Voiding phase 1- Hesitancy is present 2- Patient is able to void with Detrusor pressure at 80 cm H2O with maximum flow rate at 6.6 cc/sec. 3- The patient has a PVR of 257 cc 4- EMG showed Dysfunctional firing during void Impression: High pressure low flow void Suggestive of outlet obstruction Incomplete voiding.[facility]05-10-2024 Evaluation + Plan noteExtracted from: Title:Pain Managment Follow up Author:Margareth Umaña Date:03/27/24 Impression and Plan Patient is 73-year-old male with a past medical history significant for lumbar stenosis, lumbar neuritis and lumbar spondylosis. Currently, most recent epidural did not help. We discussed his other options. At this time, he is thinking about them but is not sure what he wants to do. He is going to look into spine surgeons in the area and decide he wants to see. He has lower back pain with right radiating leg pain that he rates a 5/10. Gets worse with certain activities. Unfortunate, increase gabapentin made him tired. We are going to have him discontinue this and trial Lyrica. 25 mg twice daily. He is given the names of the spine surgeons at a local to the area and he is going to look into them and see who he wants to see. He is going to follow-up in 4 to 6 weeks. Call the clinic sooner if necessary. OARRS reviewed LEONOR score: 48%. Future Appointments Appointment Date:05/18/2024 01:00:00 PM Scheduled Provider:Margareth De La Cruz PA-C Location:[facility] Appointment Type:Pain Management - Follow Up (FT) [facility]04-30-2024 NoteUrology Clinic H&P Dr. Diony Ariza MD Patient: Trae Pineda Date of : 1950 CHIEF COMPLAINT: Low testosterone, BPH HISTORY OF PRESENT ILLNESS: The patient is a 74 y.o. male who presents to the clinic for a 3 month follow-up appointment. Prostate cancer screening FH of prostate cancer: father PSA Trend 2.38 (2024) 2.2 (09/2023) 2.41 (08/2023) 2.1 (05/2023) 2.0 (02/2023) 1.4 (03/2022) Urinary urgency Patient states that when he has to go, he cannot hold it. He reports that sometimes he is unable to make it to the bathroom History of terminal dribbling to the point that he has to change his clothes Bothersome urgency with frequency AUA symptom score is 15 nglkjai-ju-jgmb is 4 Incomplete bladder emptying After urinating, patient reports that he often feels as if he is not emptying completely. Hypogonadism Testosterone levels 518 on 03/04/24 444 on 11/26/23 374 on 08/30/23 Patient does report a history of chronic back pain. Historical: 12/10/23 History of chronic bacterial prostatitis Completed [...] on 07/02/2022, biopsy came back benign with (more content not included)...[facility]03-29-[facility] Evaluation + Plan noteExtracted from: Title:Pain Managment [...] PM Scheduled Provider:Margareth De La Cruz PA-C Location:.[facility] Appointment Type:Pain Management - Follow Up (FT) [facility]2024 NoteUT Cardiology - [facility] Subjective Trae Pineda is a 73 y.o. year old male patient being seen for 6 mo follow up CAD, hypertension, hyperlipidemia, and carotid artery stenosis. [facility] weeks [facility]. Last lipid panel [...] pain Benign essential hypertension Coronary arteriosclerosis in 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 His physical activ (more content not included)...[facility]02-28-2024 [id number] NoteDiagnosis: M54.16, lumbar radiculopathy Procedure: L5/S1 lumbar [...] the epidural space was confirmed using the mwjp-ga-uxaknrjvlj technique and 2 cc of air. Injection [...] procedure, and agrees to continue currently prescribed/recommended therapies.[facility] Comment on above:Result Comment: Electronically Signed By: John Cannon DO\.br\Date and Time Signed: 01/15/24 14:23 [id number] Evaluation + Plan note Extracted from: Title:L5/S1 [...] the epidural space was confirmed using the lyuv-lo-yuivasvhlb technique and 2 cc of air. Injection [...] PM Scheduled Provider:Margareth De La Cruz PA-C Location:[facility] Appointment Type:Pain Management - Follow Up (FT) [facility]01-29-2024 Evaluation + Plan noteExtracted from: Title:Pain [...] will follow-up as above-mentioned LEONOR score: 48% [facility]01-23-2024 NoteUrology Clinic H&P Dr. Dinoy Ariza MD Patient: Trae Pineda Date of [...] bacterial prostatitis COPD (chronic obstructive pulmonary disease) ([facility]) Coronary artery disease, non-occlusive Depression Diabetes mellitus ([facility]) Erectile dysfunction Hyperlipemia Hypertension Hypogonadism in male Kidney stone Sleep apnea CPAP DEPENDENT Past Surgical History: Past Surgical History: Procedure Laterality (more content not included)...[facility]01-02-2024 Evaluation note* Encounter Date Diagnosis Assessment Notes Treatment Notes Treatment Clinical Notes Nov, Pulmonary nodule (ICD-10 - R91.1) CT: RML 4mm nodule - 02/2022, CT: RML 7mm nodule - 02/2023 CT: stable - 08/2023Nov, Right carotid bruit (ICD-10 - R09.89) Carotid US: 50-69% stenosis - 2019, Carotid US: < 50% ICA w/ 75% right carotid bulb - 08/2021 [facility] 12-28-2023 Evaluation note* Encounter Date Diagnosis Assessment Notes Treatment Notes Treatment Clinical Notes Oct, 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12-21-2023 NotePrior auth obtained for Yolanda- Paulina [id number] - [place] APPROVED 11/07/2023. STATUS APPROVED. COVERAGE START DATE 10/08/2023 END DATE 11/06/2024.[facility]12-11-2023 NotePatient: Trae Pineda Procedure Summary Date: 10/28/23 [facility] / [facility] Operating Room Anesthesia Start: 735 Anesthesia Stop: [...] PACU per anesthesia protocol. No notable events documented.[facility]12-11-2023 Note Patient: Trae Pineda Procedure Summary Date: 10/28/23 [facility] Operating Room Anesthesia Start: 735 Anesthesia Stop: [...] direct observation Transport: uneventful [facility] Patient: Trae Ventura Claus Procedure Information Date/Time: 10/28/23 0730 Procedure: CYSTOURETHROSCOPY, WITH RETROGRADE PYELOGRAM (Bilateral) - C-ARM [facility] Operating Room Surgeons: Diony Ariza MD Relevant Problems Cardio tolerates >4 METs without chest pain, SOB (+) Benign essential hypertension (+) Coronary arteriosclerosis in [place] artery (+) Hypertensive disorder Endo (+) Type [...] discussed with attending and resident. [facility]23 Note History and Physical Patient: Trae Pineda [...] bacterial prostatitis COPD (chronic obstructive pulmonary disease) ([facility]) Coronary artery disease, non-occlusive Depression Diabetes mellitus ([facility]) Erectile dysfunction Hyperlipemia Hypertension Hypogonadism in male [...] THE MORNING 10/01/23 Moises Aguirre NP Allergies: Lkaqdff-okd-cit reductase inhibitors and Hydralazine Social History: Social [...] Hypogonadism Plan: OR tod (more content not included)...[facility] 09-06-2023 Evaluation + Plan noteExtracted from: Title:Pain [...] AM Scheduled Provider:Margareth De La Cruz PA-C Location:FT.[facility] Appointment Type:Pain Management - Follow Up (FT) [facility]10-18-2023 Evaluation note* Encounter Date Diagnosis Assessment Notes Treatment Notes Treatment Clinical Notes Aug, Pulmonary nodule (ICD-10 - R91.1) CT: RML 4mm nodule - 02/2022, CT: RML 7mm nodule - 02/2023 CT: stable - 08/2023 [facility] Other [id number] NoteUrology Clinic H&P Dr. Diony Ariza MD [...] today as he got it done in [place] but it was a send out lab. [...] Date Anxiety COPD (chronic obstructive pulmonary disease) ([facility]) Coronary artery disease, non-occlusive Depression Diabetes mellitus ([facility]) Hyperlipemia Hypertension Past Surgical History: Past Surgical [...] TAKE 1 TAB (more content not included)... [facility]10-04-2023 Evaluation note* Encounter Date Diagnosis Assessment Notes Treatment Notes Treatment Clinical Notes Aug, Pulmonary nodule (ICD-10 - R91.1) [facility] 09-19-2023 Note [id number]:[id number] 07-02-2023 Evaluation + Plan noteExtracted [...] clinic sooner if necessary. LEONOR score: 44% [facility]07-18-2023 NoteUT Cardiology - [facility] Subjective Trae Pineda is a [...] disorder Benign essential hypertension Coronary arteriosclerosis in 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 March, Chronic bronchitis, mucopurulent (ICD-10 - J41.1) Mucinex DM as needed. Push fluids [facility] 04-20-2023 Evaluation note* Encounter Date Diagnosis Assessment Notes Treatment Notes Treatment Clinical Notes Feb, Pulmonary nodule (ICD-10 - R91.1) CT: RML 4mm nodule - 02/2022 CT: RML 7mm nodule - 02/2023 [facility] 04-11-2023 Evaluation note* Encounter Date Diagnosis Assessment Notes Treatment Notes Treatment Clinical Notes Feb, Pulmonary nodule (ICD-10 - R91.1) [facility] 02-24-2023 Evaluation + Plan noteExtracted from: Title:Pain Managment [...] require a repeat injection. LEONOR score: 19 [facility]02-21-2023 Evaluation note* Encounter Date Diagnosis Assessment [...] dosing will result in less fluctuations Dec, emt intermediate (current) use of insulin (ICD-10 - Z79.4) [...] 02/2022 Serial LDCT for lung cancer detection [facility] Other Evaluation + Plan note No data available for this section [facility] Future Appointments Appointment Date:01/11/2023 01:45:00 PM Scheduled Provider:Margareth De La Cruz PA-C Location:[facility] Appointment Type[facility] Future Appointments Appointment Date:09/06/2023 11:00:00 AM Scheduled Provider:Margareth De La Cruz PA-C Location:[facility] Appointment Type:[facility] note[facility] InformationNort Ryan Other [employer] general Narrative - Reported* Type Description Date [...] gross Medical History 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, unspecified plug maker nicity Medical History Arteriosclerosis of abdominal ao [...] Triple bypass Hospitalization History see sx history [facility] Other [employer] general Narrative - Reported* Type Description Date [...] gross Medical History 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, unspecified plug maker nicity Medical History Arteriosclerosis of abdominal ao [...] Triple bypass Hospitalization History see sx history [facility] Other Hospital Discharge instructions No data available for this section [facility] No data available for this section [facility] Summary Purpose Family History No Family [...] History Records FoundNo Family History Records Found Advance Directives No Advanced Directives Records FoundNo Advanced Directives Records FoundNo Advanced Directives Records FoundNo Advanced Directives Records Found Additional Source Comments (unrecognized sect ion and content) No Status Records FoundNo Status Records FoundNo Status Records FoundNo Status Records Found INFORMATION SOURCE (unrecogn ized section and content) DATE CREATED AUTHOR 07/24/2022 [facility] DATE CREATED AUTHOR AUTHOR'S ORGANIZ ATION 03/11/2023 [facility] DATE CREATED AUTHOR AUTHOR'S ORGANIZ ATION 05/20/2024 [facility] DATE CREATED AUTHOR AUTHOR'S ORGANIZ ATION 05/20/2024 [facility] Patient Care team informatio n (unrecognized section and content) Personnel Name: CRISTOBAL KEARNS DO Address: Address: [address] [place] [address] Personnel Name: CRISTOBAL KEARNS DO Address: Address: [address] [place] [address] Personnel Name: CRISTOBAL KEARNS DO Address: Address: [address] [place] [address] Personnel Name: CRISTOBAL KEARNS DO Address: Address: [address] [place] [address] Personnel Name: CRISTOBAL KEARNS DO Address: Address: [address] [place] [address] Personnel Name: CRISTOBAL KEARNS DO Address: Address: [address] [place] [address] Personnel Name: CRISTOBAL KEARNS DO Address: Address: [address] [place] [address] Personnel Name: CRISTOBAL KEARNS DO Address: Address: [address], [place] [address]- Personnel Name: CRISTOBAL KEARNS DO Address: Address: [address], [place], [facility]- Personnel Name: CRISTOBAL KEARNS DO Address: Address: [address], [place], [facility] Personnel Name: CRISTOBAL KEARNS DO Address: Address: [address], [place], [address] Personnel Name: CRISTOBAL KEARNS DO Address: Address: [address], [place], [place] [address]- Personnel Name: CRISTOBAL KEARNS DO Address: Address: [address], [place], [address] REASON FOR VISIT (unrecogniz ed section [...] BE BASED ON THE PRIMARY CLINICAL RECORDS. [facility] [employer] [facility]. provides no warranty or guarantee of the accuracy or completeness of information in this document.
[2024-07-27 10:42] LABS: Basophils Absolute Auto 0.1 10^3/uL (0.0-0.1); Eosinophils Absolute Auto 0.4 10^3/uL (0.0-0.7); Hematocrit 41.2 % (42.0-54.0); Hemoglobin 13.6 g/dL (14.0-18.0); Immature Granulocytes Abs Auto 0.01 10^3/uL (0.00-0.03); Immature Granulocytes Pct Auto 0.1 % (0.0-0.5); Lymphocytes Absolute Auto 2.4 10^3/uL (1.2-3.8); Lymphocytes Percent Auto 28.9 % (20.5-60.0); Mean Corpuscular Hemoglobin 30.1 pg (25.9-34.0); Mean Corpuscular Volume 91.2 fL (80.0-94.0); Monocytes Absolute Auto 0.7 10^3/uL (0.3-0.8); Monocytes Percent Auto 8.5 % (1.7-12.0); Neutrophils Absolute Auto 4.7 10^3/uL (1.4-6.5); Neutrophils Percent Auto 56.5 % (43.0-75.0); Platelet Count 194 10^3/uL (150-450); Red Blood Count 4.52 10^6/uL (4.70-6.10); Red Cell Distribution Width 13.7 % (11.0-15.0); White Blood Count 8.3 10^3/uL (4.0-11.0)
[2024-07-27 11:01] LABS: Estimated Average Glucose 146 mg/dL; Glycohemoglobin A1C 6.7 % (4.5-6.2)
[2024-07-27 11:47] LABS: Alanine Aminotransferase 26 U/L (16-63); Albumin Globulin Ratio 1.2; Albumin Level 3.7 g/dL (3.4-5.0); Alkaline Phosphatase 75 U/L (46-116); Anion Gap 10.8; Aspartate Amino Transferase 10 U/L (15-37); BUN Creatinine Ratio 21.6; Bilirubin Total 0.4 mg/dL (0.2-1.0); Calcium 9.2 mg/dL (8.5-10.1); Carbon Dioxide 28.7 mmol/L (21.0-32.0); Chloride 101 mmol/L (98-107); Chol HDL Ratio 2.4; Cholesterol 109 mg/dL (<=200); Estimated GFR (African America 47 (>=60); Estimated GFR (Non-African Ame 39 (>=60); Globulin 3.2 g/dL; Glucose 157 mg/dL (74-106); HDL Cholesterol 45 mg/dL (40-60); LDL Cholesterol Calculated 39.8 mg/dL; Potassium 4.5 mmol/L (3.5-5.1); Sodium 136 mmol/L (136-145); Total Protein 6.9 g/dL (6.4-8.2); Triglycerides 121 mg/dL (<=150); VLDL CHOLESTEROL 24.2 mg/dL
[2024-07-27 13:08] LABS: Microalbumin Urine Random 6.8 mg/dL (<=30.0)
== END 2024-07-27 10:15 | disposition home or self-care (01) ==
LOC: LAB 10:17
PROVIDERS: PCP Internal Medicine; Visit Provider Internal Medicine
DX: E11.65 Type 2 diabetes mellitus with hyperglycemia (principal); Z79.4 Long term (current) use of insulin; I10 Essential (primary) hypertension; I25.10 Atherosclerotic heart disease of native coronary artery without angina pectoris; E78.00 Pure hypercholesterolemia, unspecified
CPT/HCPCS: 36415; 80053; 80061; 82043; 83036; 85025

== ENCOUNTER 2024-08-19 08:05 | Outpatient (OUT) | payer MEDICARE, SELFPAY ==
--- NOTE | 2024-08-19 08:00 | CA_ITS ---
Patient Name: TRAE MONROE MR#: [id number] : 1950 Exam Date: 08/19/2024 Ordering Doctor: DR. ENRRIQUE OAKLEY M.D. ECHOCARDIOGRAM REPORT PROCEDURE: CA ECHO DOPPLER COMPLETE INDICATIONS: Dyspnea on exertion, CABGx2, cardiac stents, diabetes, hypertension COMPARISON: None. DESCRIPTION: COMPLETE ECHOCARDIOGRAM Real-time transthoracic echocardiography with 2D, M-mode, spectral and color flow Doppler performed. QUALITY: Technical quality was good. LEFT VENTRICLE: Normal chamber size. Moderate concentric left ventricular hypertrophy. LV EF: Global left ventricular systolic function is normal; visually estimated ejection fraction is 60 to 65%. No significant wall motion abnormalities. DIASTOLIC: Diastolic function is indeterminate. ATRIAL SEPTUM: Visually appears intact. LEFT ATRIUM: Normal chamber size. RIGHT ATRIUM: Normal chamber size. RIGHT VENTRICLE: Normal chamber size. Normal right ventricular systolic function. TRICUSPID VALVE: Normal mobility and thickness. No stenosis with trivial regurgitation. No evidence of pulmonary hypertension. RVSP 31 mmHg MITRAL VALVE: Normal mobility and thickness. No evidence of mitral valve stenosis. There is no mitral annular calcification. Trivial mitral regurgitation. AORTIC VALVE: Normal trileaflet appearance. No visible sclerosis. Normal leaflet mobility. No evidence of aortic valve stenosis. No aortic regurgitation. AORTIC ROOT: Normal diameter and appearance. Ascending aorta is normal in size. PULMONIC VALVE: Normal thickness and mobility. No stenosis. Trivial regurgitation. PERICARDIUM: Anterior free space; trivial effusion versus fat pad. IVC: Collapses with inspirations. IVC is normal in size. CONCLUSION: 1. Global left ventricular systolic function is normal; visually estimated ejection fraction is 60 to 65% 2. Normal right ventricular size and systolic function 3. Diastolic function is indeterminate 4. Moderate left ventricular hypertrophy 5. No significant valvular abnormalities 6. Anterior free space; trivial effusion versus fat pad Adult Echocardiography Procedure Report Left Ventricle LVEDD (3.7 - 5.6 cm): 5.42 cm LVESD (2.2 - 4.0 cm): 3.99 cm LVIVS thickness (0.6 - 1.2 cm): 1.52 cm LVPW thickness (0.5 - 1.0 cm): 1.44 cm e': 0.08 m/s E - e': 9.16 LVOT Max Gradient: 1.88 mm[Hg] LVOT Area (cm2): 0.69 m/s Peak Velocity (LVOT): 0.69 m/s Mean Velocity (LVOT): 0.45 m/s LVOT Diameter 2.15 cm Left Atrium LA Volume Index (2D A2C): 29.44 ml/m2 Left Atrium Systolic Dimension: 5.07 cm Mitral Valve MV E to A Ratio: 0.93 Mitral Valve A-Wave Peak Velocity: 0.81 m/s Mitral Valve E-Wave Peak Velocity: 0.75 m/s Right Ventricle Aorta AO Root Diam: 3.17 cm Ascending Ao Diam: 3.26 cm Aortic Valve AoV Area (Peak Damion): 2.12 cm2, 2.12 cm2 AoV Area (VTI): 2.36 cm2, 2.36 cm2 Peak Velocity(Antegrade Flow): 1.18 m/s Peak Gradient(Antegrade Flow): 5.53 mm[Hg] Mean Velocity(Antegrade Flow): 0.74 m/s Mean Gradient(Antegrade Flow): 2.65 mm[Hg] Velocity Time Integral: 25.01 cm Tricuspid Valve Peak Velocity (Regurgitant Flow): 2.67 m/s Pulmonic Valve Mean Gradient: 2.27 mm[Hg] Mean Velocity: 0.71 m/s Peak Velocity: 1.09 m/s, 1.04 m/s Peak Gradient: 4.33 mm[Hg], 4.71 mm[Hg] Right Atrium Right Atrium Systolic Pressure: 38.38 ml, 38.38 ml Dictated by: Jacinta Araujo M.D. on 08/19/2024 at 11:56 Approved by: Jacinta Araujo M.D. on 08/19/2024 at 12:01
--- OUTSIDE RECORDS SUMMARY | 2024-08-19 08:08 | XMS_ITS | CCD ---
Author Organization [facility] Care Team Providers Care Song And Dance Performer Name Role Phone LUPIS DENNIS Admitting Unavailable LUPIS DENNIS Attending Unavailable SOM, CRISTOBAL Referring Unavailable BALL, CRISTOBAL Primary Care Unavailable SOM, CRISTOBAL Primary Care Physician [phone] Ball, Cristobal Unavailable SOM, DR DON Admitting [...] Care Unavailable BALL, DR DON Consulting Unavailable SHIELASLOAN Consulting Unavailable MISC, DR MOSLEY Admitting Unavailable MISC, DR MOSLEY Attending Unavailable BALL, DR DON Primary Care Unavailable MISC, DR MOSLEY Consulting Unavailable CRISTOBAL KEARNS Referring Unavailable De La Cruz, Margareth Attending Unavailable De La Cruz, Margareth Admitting Unavailable De La Cruz, TRINY Zuluaga Admitting Unavailabl e De La Cruz, Margareth Attending Unavailable CRISTOBAL KEARNS Referring Unavailable De La Cruz, TRINY Zuluaga Admitting Unavailabl e De La Cruz, Margareth Attending Unavailable BALL, CRISTOBAL Referring Unavailable De La Cruz, PA-C Margareth Admitting Unavailabl e Jono, Margareth Attending Unavailable SOM, CRISTOBAL Referring Unavailable De La Cruz, Margareth Attending Unavailable SOM, CRISTOBAL Referring Unavailable MD Himanshu Wright Admitting Unavailable Himanshu Wright Attending Unavailable Himanshu Wright Referring Unavailable John Cannon Admitting Unavailable John Cannon Attending Unavailable John Cannon Referring Unavailable De La Cruz, Margareth Attending Unavailable Jono, Margareth Admitting Unavailable SOM, CRISTOBAL Referring Unavailable SOM, CRISTOBAL Referring Unavailable TRINY De La Cruz Margareth Admitting Unavailabl e De La Cruz, Margareth Attending Unavailable SINDHWANI, DIONY Attending Unavailable SINDHWANI, DIONY Admitting Unavailable SINDHWANI, DIONY Attending Unavailable SAVZYAN, MORENITA Attending Unavailable SINDHWANI, DIONY Attending Unavailable SINDHWANI, DIONY Attending Unavailable SINDHWANI, DIONY Referring Unavailable MOUKARBMOI FOOTE Referring Unavailable SINDHWANI, DIONY Attending Unavailable SINDHWANI, DIOYN Attending Unavailable MOUKARBELMOI Attending Unavailable SINDHWANI, DIONY Attending Unavailable ENRRIQUE OAKLEY Attending Unavailable Allergies Allergy Classification Reported Allergen(s) Allergy Type Date of Onset Reaction(s) Facility (3 sources) black walnut pollen extract; Translations: [JTOHUJX-JPB-OPT REDUCTASE INHIBITORS] Drug Allergy 01-27-2013 [facility] (14 sources) HMG-CoA reductase inhibitor; Translations: [statins] Drug allergy muscle ache [facility] (15 sources) hydrALAZINE; Translations: [hydralazine] Drug Allergy 07-25-2022 palpatations [facility] Medications Current Medications Medication Drug Class(es) Dates [...] Spasm, # 30 tab(s), Refills(s) 0, Pharmacy: [facility]/pharmacy #[id number], 183, cm, 02/14/24 13:46:00 EDT, Height/Length [...] Refills(s) 0 Start Date: 05/18/20 Status: Ordered [facility] - (5 sources) [facility] - as directed Orally Active cyclobenzaprine hydrochloride 10 mg oral tablet (4 sources) Muscle Relaxant Start: 11-08-2022 take 1 tablet by mouth three times daily as needed for muscle spasms cyclobenzaprine 10 mg Tab 10 mg = 1 tab(s), Oral, TID, PRN for spasm, # 30 tab(s), Refills(s) 0, Pharmacy: [facility]/pharmacy #[id number], 182.9, cm, 11/08/22 15:17:00 EST, Height/Length [...] 05/18/20 Status: Ordered [facility] [place] - (15 sources) [facility] [place] - as directed Active FreeStyle Singh 14 [...] BID, # 60 cap(s), Refills(s) 0, [id number] 183, cm, 02/14/24 13:46:00 EDT, Height/Length Dosing, 110.3, kg, 02/14/24 13:46:00 EDT, Weight Dosing Start Date: 02/14/24 Status: Ordered Start: 12-16-2023 take 1 capsule by [facility] once daily at bedtime gabapentin 300 mg Cap 300 mg = 1 cap(s), Oral, Once a day (at bedtime), # 30 cap(s), Refills(s) 1, Pharmacy: [facility]/pharmacy #[id number], 183, cm, 12/16/23 10:37:00 EST, Height/Length Dosing, 102.3, kg, 12/16/23 10:37:00 EST, Weight Dosing Start Date: 12/16/23 Status: Ordered Start: 11-08-2022 take 1 capsule by [facility] at bedtime gabapentin 100 mg Cap 100 mg = 1 cap(s), Oral, Bedtime, # 30 cap(s), Refills(s) 0, Pharmacy: [facility]/pharmacy #[id number], 182.9, cm, 11/08/22 15:17:00 EST, Height/Length [...] tablet (5 sources) take 1 tablet by aide every twenty-four hours Loratadine 10 MG 1 tablet Orally Once a day Active pregabalin 25 mg oral capsule (2 sources) Start: 05-18-2024 take 1-2 capsules by mouth twice daily Lyrica 25 mg Cap 1-2 cap(s), Oral, BID, # 120 tab(s), Refills(s) 0, Pharmacy: [facility]/pharmacy #[id number], 183, cm, 05/18/24 13:21:00 EDT, Height/Length Dosing, 107, kg, 05/18/24 13:21:00 EDT, Weight Dosing Start Date: 05/18/24 Status: Ordered Start: 03-27-2024 take 1 capsule by mo [facility] twice daily pregabalin 25 mg Cap 25 mg = 1 cap(s), Oral, BID, # 60 cap(s), Refills(s) 0, Pharmacy: [facility]/pharmacy #[id number], 183, cm, 03/27/24 14:29:00 EDT, Height/Length [...] 05-18-2020 Chronic Genitourinary symptoms and ill-defined conditions (2 sources) Urge incontinence; Translations: [Urge incontinence] Onset: 05-14-2024 Chronic Genitourinary symptoms and ill-defined conditions (20 [...] sources) Long-term current use of insulin; Translations: [detention (current) use of insulin] Episodic Other and [...] pulmonary nodule] Episodic Other lower respiratory disease (2 sources) Other forms of dyspnea; Translations: [Other forms of dyspnea] Onset: 07-27-2024 Episodic Other male genital disorders (2 sources) [...] [CONTACT W/AND (SUSP) EXPOS COVID-19] Onset: 07-02-2022 Urinary tract infections (2 sources) Other cystitis without hematuria; Translations: [Other cystitis without hematuria] Onset: 03-17-2024 Episodic Past or Other Problems Problem Classification Problem Date Documented Da te Episodic/Chronic Abdominal pain (2 sources) Pelvic and perineal pain; Translations: [Pelvic and perineal pain] Onset: 08-14-2022 Episodic Coronary atherosclerosis and other heart disease (2 sources) Presence of aortocoronary bypass graft; Translations: [Presence of aortocoronary bypass graft] Onset: 01-20-2024 Episodic Other aftercare (2 sources) 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; Translations: [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 CURRENT USE OF INSULIN] Onset: 11-27-2022 Episodic Other aftercare (1 source) Other 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 (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 therapy; Translations: [OTH MARKETING RESEARCH COORDINATOR CURRENT DRUG THERAPY] Onset: 11-27-2022 Episodic Other aftercare (1 source) detention (current) use of aspirin; Translations: [MARKETING RESEARCH COORDINATOR CURRENT USE OF ASPIRIN] Onset: 11-27-2022 Episodic Other lower respiratory disease (12 sources) Solitary pulmonary nodule; Translations: [SOLITARY PULMONARY NODULE] Onset: 08-14-2022 Episodic Other lower respiratory disease (6 sources) Shortness of breath; Translations: [SHORTNESS OF BREATH] Onset: 07-25-2022 Episodic Other screening for suspected conditions (not mental disorders or infectious disease) (2 sources) Encounter for screening for malignant neoplasm of prostate; Translations: [Encounter for screening for malignant neoplasm of prostate] Onset: 03-17-2024 Episodic Residual codes; unclassified (2 sources) Pain, [...] Test Name Value Interpretation Reference Range Facility Orders Onlyon 08-13-2024 Orders Only [id number] Trae Pineda 1950 M Date Provider Department Center 08/13/[address] [facility] Family History Problem Relation Age of Onset Prostate cancer Father Family Status - Relation Status Age at Father Normal [facility] Procedure Visiton 08-13-2024 Procedure Visit [id number] Trae Pineda 1950 M Date Provider Department Center 08/13/[address] [facility] Family History Problem Relation Age of Onset Prostate cancer Father Family Status - Relation Status Age at Father Level of Service:27926 MD OFFICE/OUTPT VISIT,PROCEDURE ONLY (25) Reason for Visit and Comments: Follow-up [015581] - Trus [facility] Orders Onlyon 07-29-2024 Orders Only [id number] Igor Pinedary E 1950 M Date Provider Department Center 07/29/2024 Hodan5-RACHNA SHEPARD [facility] No family history on file [facility] Office Visiton 07-27-2024 Follow-up visit [id number] EdwinTrae E 1950 M Date Provider Department Center 07/27/2024 59788-UOPBSQENRRIQUE OAKLEY [facility] No family history on file Level of Service:13182 MD OFFICE/OUTPATIENT ESTABLISHED MOD MDM 30 MIN Reason for Visit and Comments: Hyperlipidemia [182] Hypertension [529470] - Pt is here for low blood pressure. [facility] Follow-Upon 05-19-2024 Follow-Up [id number] EdwinTrae E 1950 M Date Provider Department Center 05/19/2024 435-MAMTA ARIZAEET [facility] Second Fl No family history on file Level of Service:47531 MD OFFICE/OUTPATIENT ESTABLISHED MOD MDM 30 MIN [facility] Refillon 05-14-2024 Refill [id number] Igor Pinedary E 1950 M Date Provider Department Center 05/14/2024 Danni-MOISES AGUIRRE [facility] Second Fl No family history on file Reason for Visit and Comments: Med Refill [[id number]] [facility] Procedure Visiton 05-11-2024 Procedure Visit [id number] Igor Pinedary E 1950 M Date Provider Department Center 05/11/2024 435-DIONY ARIZA [facility] No family history on file Level of Service:07927 MD OFFICE/OUTPT VISIT,PROCEDURE ONLY (26) Reason for Visit and Comments: Follow-up [088480] - Uds documentation [facility] Procedure Visit [id number] Edwin,Trae E 1950 M Date Provider Department Center 05/11/2024 83364-RPUWCLHMORENITA LARSEN [facility] No family history on file Level of Service:10344 MD OFFICE/OUTPATIENT ESTABLISHED LOW MDM 20 MIN Reason for Visit and Comments: Follow-up [837756] - uds Normal [facility] Consent for Treatmenton 03-18 Consent for Treatment [id number]#[address] [facility] Consultation Noteon 03-27-20 Consultation Note Patient: [...] Spasm, # 30 tab(s), Refills(s) 0, [id number] 183, cm, 02/14/24 13:46:00 EDT, Height/Length Dosing, 110.3, kg, 02/14/24 13:46:00 EDT, Weight Dosing gabapentin 300 mg Cap: 300 mg = 1 cap(s), Oral, Once a day (at bedtime), # 30 cap(s), Refills(s) 1, [id number], 183, cm, 12/16/23 10:37:00 EST, Height/Length Dosing, 102.3, kg, 12/16/23 10:37:00 EST, Weight Dosing pregabalin 25 mg Cap: 25 mg = 1 cap(s), Oral, BID, # 60 cap(s), Refills(s) 0, [id number], 183, cm, 03/27/24 14:29:00 EDT, [...] History of heart attack / SNOMED CT 2105918613 / Confirmed Acute angina / SNOMED CT 162923478 / Confirmed Irregular heart beat / SNOMED CT 539065772 / Confirmed HTN (hypertension) / SNOMED CT 8448455440 / Confirmed High cholesterol / SNOMED CT 40185935 / Confirmed H/O heart bypass surgery / SNOMED CT 662861748 / Confirmed Apnea, sleep / SNOMED CT 946620242 / Confirmed CPAP (continuous positive airway pressure) dependence / SNOMED CT 7702349638 / Confirmed Enlarged prostate / SNOMED CT 814528537 / Confirmed Chronic kidney disease (CKD) / SNOMED CT 0269458643 / Confirmed Diabetes / SNOMED CT 703259928 / Confirmed Carpal tunnel syndrome / SNOMED CT 32914995 / Confirmed Anemia / SNOMED CT 744968387 / Confirmed Arthritis, rheumatoid / SNOMED CT 775913299 / Confirmed Obesity / ICD-9-CM 278.00 / Possible Obesity / SNOMED CT S0408K05-2528-6O21-S7 [id number] / Possible Objective Vital Signs 03/27/2024 14:19 [...] right straight leg raise Integumentary: Warm, Dry, [place]. Neurologic: Alert, Oriented. Psychiatric: Cooperative, Appropriate mood [...] did not (more content not included)... Normal [facility] Comment on above: Result Comment: Elec tronically Signed By: Jono AGOSTO, Margareth\.br\Date and Time Signed: 03/27/24 14:47 EDT Office/Clinic Note-Physician on 03-27-2024 Office/Clinic Note-Physician [id number]# 1.00TIFF Normal [facility] Outside Records Officeon Outside Records Office [id number]# 1.00TIFF Normal [facility] Patient Correspondenceon Patient Correspondence [id number]# 1.00TIFF Normal [facility] Patient History Officeon Patient History Office [id number]# 1.00TIFF Normal [facility] Follow-Upon 03-17-2024 Follow-Up [id number] Trae Pineda Lorenzo 1950 M [facility] Provider Department Center 03/17/[address] [place] [address] [facility] Second Fl No family history on file Level of Service:39292 MD OFFICE/OUTPATIENT ESTABLISHED MOD MDM 30 MIN Reason for Visit and Comments: Benign Prostatic Hypertrophy [800457618] Hypogonadism [185] - 3 mo follow-up with labs Normal [facility] Orders Onlyon 03-12-2024 Orders Only [id number] Trae Pineda 1950 M Date Provider Department Center 03/12/[address] [place] [address] [facility] Second Fl No family history on file Normal [facility] Consent for Treatmenton 01-17 Consent for Treatment [id number]# 1.00TIFF Normal [facility] Consultation Noteon 02-14-20 Consultation Note Patient: [...] BID, # 60 cap(s), Refills(s) 0, Pharmacy: [facility]/pharmacy #[id number], 183, cm, 02/14/24 13:46:00 EDT, Height/Length Dosing, 110.3, kg, 02/14/24 13:46:00 EDT, Weight Dosing gabapentin 300 mg Cap: 300 mg = 1 cap(s), Oral, Once a day (at bedtime), # 30 cap(s), Refills(s) 1, Pharmacy: [facility]/pharmacy #[id number], 183, cm, 12/16/23 10:37:00 EST, Height/Length [...] History of heart attack / SNOMED CT 4500289779 / Confirmed Acute angina / SNOMED CT 781484081 / Confirmed Irregular heart beat / SNOMED CT 252670645 / Confirmed HTN (hypertension) / SNOMED CT 5752314189 / Confirmed High cholesterol / SNOMED CT 38583097 / Confirmed H/O heart bypass surgery / SNOMED CT 604473201 / Confirmed Apnea, sleep / SNOMED CT 608900395 / Confirmed CPAP (continuous positive airway pressure) dependence / SNOMED CT 3437982279 / Confirmed Enlarged prostate / SNOMED CT 277145117 / Confirmed Chronic kidney disease (CKD) / SNOMED CT 2239188074 / Confirmed Diabetes / SNOMED CT 688914458 / Confirmed Carpal tunnel syndrome / SNOMED CT 71346850 / Confirmed Anemia / SNOMED CT 380269650 / Confirmed Arthritis, rheumatoid / SNOMED CT 697172328 / Confirmed Obesity / ICD-9-CM 278.00 / Possible Obesity / SNOMED CT Y4627D02-0733-5E29-D4 [id number] / Possible Objective Vital Signs 02/14/2024 13:32 [...] pain with facet loading Integumentary: Warm, Dry, [place]. Neurologic: Alert, Oriented. Psychiatric: Cooperative, Appropriate mood [...] relief he (more content not included)... Normal [facility] Comment on above: Result Comment: Elec tronically Signed By: Jono AGOSTO, Margareth\.br\Date and Time Signed: 02/14/24 14:08 EDT Office/Clinic Note-Physician on 02-14-2024 Office/Clinic Note-Physician [id number]# 1.00TIFF Normal [facility] Patient Correspondenceon Patient Correspondence [id number]# 1.00TIFF [facility] Patient Correspondence [id number]# 1.00TIFF [facility] Patient History Officeon Patient History Office [id number]# 1.00TIFF [facility] Refillon 01-26-2024 Refill [id number] Trae Pineda 1950 M Date Provider Department Center 01/26/2024 124-MOISES AGUIRRE [facility] [place] No family history on file Reason for Visit and Comments: Med Refill [[id number]] Normal [facility] Office Visiton 01-20-2024 Follow-up visit [id number] Trae Pineda 1950 M Date Provider Department Center 01/20/2024 Risa-MOI MOSS [facility] No family history on file Level of Service:33616 MD OFFICE/OUTPATIENT ESTABLISHED MOD MDM 30 MIN Normal [facility] Consent for Procedure/Surger yon 01-15-2024 Consent for Procedure/Surgery [id number] #1.00TIFF [facility] Consent for Treatmenton 12-20 Consent for Treatment [id number]#1 .00TIFF [facility] Discharge Instructionson Discharge Instructions [id number] #1.00TIFF [facility] IntraOperative Documentson 0 01-15-2024 IntraOperative Documents [id number] #1.00TIFF [facility] Main OR Intraoperative Recor don 01-15-2024 Main OR Intraoperative Record IntraOp Document Type FTPM Summary Primary Physician: John Cannon DO Finalized Date/Time: 01/15/24 14:25:24 Pt. Name: TRAE PINEDA Lorenzo MinayaB./Sex: 1950 Male Med Rec #: [id number] Physician: John Cannon DO Financial #: [id number] Pt. Type: P Room/Bed: / Admit/Disch: 01/15/24 13:16:24 - Institution: Case Times FTPM Entry 1 Patient Times In Room 01/15/24 14:15:00 Out Room 01/15/24 14:24:00 Procedure Times Start 01/15/24 14:18:00 Stop 01/15/24 14:23:00 Anesthesia Times Last Modified By: Deysi Castro RN 01/15/24 14:23:15 Case Attendance FTPM Entry 1 Entry 2 Entry 3 Case Attendee Cannon DO, Lopez Deysi Morin RN, RN, Lula Schuler Role Performed Surgeon - Primary Shell Trim Operator - Primary Scrub - Primary Time In 01/15/24 14:15:00 01/15/24 14:15:00 01/15/24 14:15:00 Time Out 01/15/24 14:24:00 01/15/24 14:24:00 01/15/24 14:24:00 Procedure LUMBAR EPIDURAL STEROID LUMBAR EPIDURAL STEROID LUMBAR EPIDURAL STEROID INJECTION(.) INJECTION(.) INJECTION(.) Comments Last Modified By: Deysi Castro RN, RN, Madison A Pritchard RN, Madison A 01/15/24 14:23:16 01/15/24 14:23:16 01/15/24 14:23:16 Entry 4 Case Attendee Leanne Fitzgerald Role Performed Tip Cementer Time In 01/15/24 14:15:00 Time Out 01/15/24 [...] and tissue Entry 1 Skin Integrity Intact, [place], Warm, and Skin Abnormality No Dry Outcomes [...] Last Modif (more content not included)... Normal [facility] Main OR Preoperative Recordo n 01-15-2024 Main OR Preoperative Record Holding Area Document Type FT Summary Primary Physician: John Cannon DO Finalized Date/Time: 01/15/24 13:38:25 Pt. Name: TRAE PINEDA /Sex: 1950 Male Med Rec #: [id number] Physician: John Cannon DO Financial #: [id number] Pt. Type: P Room/Bed: / Admit/Disch: 01/15/24 [...] Barb Schmidt RN Document Signatures Signed By: aBrb Schmidt RN 01/15/24 13:[address] [facility] Patient Correspondenceon Patient Correspondence [id number]# 1.00TIFF Normal [facility] Orders Onlyon 12-23-2023 Orders Only [id number] Trae Pineda 1950 M Date Provider Department Center 12/23/2023 124-MOISES AGUIRRE None No family history on file Normal [facility] Refillon 12-20-2023 Refill [id number] Trae Pineda 1950 M Date Provider Department Center 12/20/2023 Danni-MOISES AGUIRRE [facility] Second Fl No family history on file Reason for Visit and Comments: Med Refill [[id number]] Normal [facility] Office/Clinic Note-Physician on 12-19-2023 Office/Clinic Note-Physician [id number]#1. 00TIFF Normal [facility] Insurance Correspondence Off iceon 12-17-2023 Insurance Correspondence Office [id number]#1. 00TIFF [facility] Consent for Treatmenton 11-19 Consent for Treatment [id number]# 1.00TIFF [facility] Consultation Noteon 12-16-19 Consultation Note Patient: KATERINA PINEDA Age: 73 [...] History of heart attack / SNOMED CT 2277053264 / Confirmed Acute angina / SNOMED CT 968261331 / Confirmed Irregular heart beat / SNOMED CT 705230560 / Confirmed HTN (hypertension) / SNOMED CT 5343078875 / Confirmed High cholesterol / SNOMED CT 32431528 / Confirmed H/O heart bypass surgery / SNOMED CT 545649110 / Confirmed Apnea, sleep / SNOMED CT 120648523 / Confirmed CPAP (continuous positive airway pressure) dependence / SNOMED CT 7532066908 / Confirmed Enlarged prostate / SNOMED CT 538732666 / Confirmed Chronic kidney disease (CKD) / SNOMED CT 6896491412 / Confirmed Diabetes / SNOMED CT 004265451 / Confirmed Carpal tunnel syndrome / SNOMED CT 78004305 / Confirmed Anemia / SNOMED CT 101489398 / Confirmed Arthritis, rheumatoid / SNOMED CT 640864326 / Confirmed Obesity / ICD-9-CM 278.00 / Possible Obesity / SNOMED CT K6918V29-3337-2M72-Y1 [id number] / Possible Objective Vital Signs 12/16/2023 10:23 [...] right straight leg raise Integumentary: Warm, Dry, [place]. Neurologic: Alert, Oriented. Psychiatric: Cooperative, Appropriate mood [...] if necessary (more content not included)... Normal [facility] Comment on above: Result Comment: Elec tronically Signed By: Margareth De La Cruz PA-C\.br\Date and Time Signed: 12/16/23 10:54 EST\.br\Electronically Co-Signed By: John Cannon DO.br\Date and Time Co-Signed: 12/19/23 11:37 EST Legal Correspondence Officeo n 12-16-2023 Legal Correspondence Office [id number]#[address] [facility] Office/Clinic Note-Nurseon 0 12-16-2023 Office/Clinic Note-Nurse [id number]# 1.00TIFF Normal [facility] Office/Clinic Note-Nurse [id number]#[address] [facility] Comment on above: Other Comment: triston earl Office/Clinic Note-Physician on 12-16-2023 Office/Clinic Note-Physician [id number]#[address] [facility] Patient Correspondenceon Patient Correspondence [id number]#[address] [facility] Patient Correspondence [id number]#[address] [facility] Patient Correspondence [id number]#[address] [facility] Patient Correspondence [id number]#[address] [facility] Patient History Officeon Patient History Office [id number]#[address] [facility] Radiology Outside Office Landscape Photographer yon 12-16-2023 Radiology Outside Office Copy [id number]#[address] [facility] Radiology Outside Office Copy [id number]# 1.00TIFF Normal [facility] Follow-Upon 12-10-2023 Follow-Up [id number] Trae Pineda 1950 M Date Provider Department Center 12/10/2023 435-DIONY ARIZA [facility] Second Fl No family history on file Level of Service:43311 MD OFFICE/OUTPATIENT ESTABLISHED MOD MDM 30 MIN Reason for Visit and Comments: Benign Prostatic Hypertrophy [994108309] Follow-up [999962] - Cysto follow-up with labs Normal [facility] URINALYSIS MICROSCOPIC WITH REFLEX CULTUREon 12-10-2023 CASTS IN URINE Present Abnormal None Seen [facility] Comment on above: Performed By: #### L [id number] #### [facility] [address] [place] [address] CRYSTALS IN URINE Normal [facility] Comment on above: Performed By: #### L [id number] #### [facility] ([facility]) [address] [place] [address] HYALINE CASTS /LPF IN URINE SEDIMENT BY MICROSCOPY 8 /LPF High <1 [facility] Comment on above: Performed By: #### L [id number] #### [facility] [address] [place] [address] MUCUS (#/HPF) IN URINE SEDIMENT Occasional Normal None Seen, Occasional, Few [facility] Comment on above: Performed By: #### L [id number] #### [facility]) [address] [place] [address] OTHER MICROSCOPIC ELEMENTS Normal [facility] Comment on above: Performed By: #### L [id number] #### [facility] [address] [place] [address] RBC (#/HPF) IN URINE SEDIMENT 0-2 Abnormal None Seen [facility] Health Comment on above: Performed By: #### L [id number] #### [facility] ([facility]) [address] [place] [address] SQUAMOUS EPITHELIAL CELLS (#/HPF) IN URINE SEDIMENT Occasional Normal None Seen, Occasional [facility] Comment on above: Performed By: #### L [id number] #### [facility] ([facility]) [address] [place] [address] WBC (LEUKOCYTE) (#/HPF) IN URINE SEDIMENT 0-2 Abnormal None Seen [facility] Comment on above: Performed By: #### L [id number] #### [facility] [address] [place] [address] URINALYSIS WITH REFLEX CULTU REon 12-10-2023 BILIRUBIN, TOTAL PRESENCE IN URINE Negative Normal Negative [facility] Comment on above: Performed By: #### L [id number] ####[facility] ([facility])[address] [place] [address] Clarity (U) Clear Normal Clear [facility] Comment on above: Performed By: #### L [id number] ####[facility] ([facility])[address] [place] [address] Color (U) Holly Abnormal Yellow [facility] Comment on above: Performed By: #### L [id number] ####[facility] ([facility])[address] [place] [address] Glucose (U) [Mass/Vol] Negative Normal Negative [facility] Comment on above: Performed By: #### L [id number] ####[facility] ([facility])[address] [place] [address] HEMOGLOBIN PRESENCE IN URINE Negative Normal Negative [facility] Comment on above: Performed By: #### L [id number] ####[facility] ([facility])[address] [place] [address] Ketones Ql (U) Negative Normal Negative [facility] Comment on above: Performed By: #### L [id number] ####[facility] ([facility])[address] [place] [address] LEUKOCYTE ESTERASE PRESENCE IN URINE BY TEST STRIP Negative Normal Negative [facility] Comment on above: Performed By: #### L [id number] ####[facility] [place] [address] NITRITE PRESENCE IN URINE Negative Normal Negative [facility] Comment on above: Performed By: #### L [id number] ####[facility] ([facility])[address] [place] [address] pH (U) 5.0 [pH] Normal 5.0-8.0 [facility] Comment on above: Performed By: #### L [id number] ####[facility] ([facility])[address] [place] [address] Protein (U) [Mass/Vol] 30 mg/dL Abnormal Negative [facility] Comment on above: Performed By: #### L [id number] ####[facility] ([facility])[address] [place] [address] Specific gravity (U) [Rel density] 1.026 High 1.015-1.020 [facility] Comment on above: Performed By: #### L [id number] ####[facility] ([facility])[address] [place] [address] Orders Onlyon 12-09-2023 Orders Only [id number] Trae Pineda 1950 M Date Provider Department Center 12/09/2023 SHY ROMERO None No family history on file [facility] 36on 12-04-2023 36 Approving, but needs appt for additional refills. Normal [facility] Insurance Correspondence Off iceon 11-13-2023 Insurance Correspondence Office [id number]# 1.00TIFF [facility] Physician Orderon 11-13-2023 Physician Order [id number]# 1.00TIFF [facility] Consent for Treatmenton 10-19 Consent for Treatment [id number]# 1.00TIFF [facility] Consultation Noteon 11-08-20 Consultation Note Patient: KATERINA [...] History of heart attack / SNOMED CT 8404440505 / Confirmed Acute angina / SNOMED CT 814558988 / Confirmed Irregular heart beat / SNOMED CT 333732211 / Confirmed HTN (hypertension) / SNOMED CT 4231167849 / Confirmed High cholesterol / SNOMED CT 84337550 / Confirmed H/O heart bypass surgery / SNOMED CT 069039743 / Confirmed Apnea, sleep / SNOMED CT 879479330 / Confirmed CPAP (continuous positive airway pressure) dependence / SNOMED CT 6615933206 / Confirmed Enlarged prostate / SNOMED CT 236722382 / Confirmed Chronic kidney disease (CKD) / SNOMED CT 2026280158 / Confirmed Diabetes / SNOMED CT 082442526 / Confirmed Carpal tunnel syndrome / SNOMED CT 45091588 / Confirmed Anemia / SNOMED CT 313851273 / Confirmed Arthritis, rheumatoid / SNOMED CT 577978459 / Confirmed Obesity / ICD-9-CM 278.00 / Possible Obesity / SNOMED CT E7322W35-0445-5G52-Z6 [id number] / Possible Objective Vital Signs 11/08/2023 10:58 [...] right straight leg raise Integumentary: Warm, Dry, [place]. Neurologic: Alert, Oriented. Psychiatric: Cooperative, Appropriate mood [...] agreeable. Follow-up after. LEONOR score: 36% Normal [facility] Comment on above: Result Comment: Elec tronically Signed By: Jono AGOSTO, Margareth\.br\Date and Time Signed: 11/08/23 11:19 EST Office/Clinic Note-Physician on 11-08-2023 Office/Clinic Note-Physician [id number]# 1.00TIFF Normal [facility] Patient Correspondenceon Patient Correspondence [id number]# 1.00TIFF Normal [facility] Patient Correspondence [id number]# 1.00TIFF Normal [facility] Patient History Officeon Patient History Office [id number]# 1.00TIFF Normal [facility] Refillon 11-02-2023 Refill [id number] Trae Pineda 1950 M Date Provider Department Center 11/02/2023 Danni-MOISES AGUIRRE [facility] Second Fl No family history on file Reason for Visit and Comments: Med Refill [[id number]] Normal [facility] [place] IN ORon 10-28-2023 [place] IN OR [...] fluoroscopic equipment utilization. Electronically signed: Abhi Antonio. [facility] Comment on above: Order Comment: CYSTO RETROGRADE PYELOGRAM OPNOTEon 10-28-2023 OPNOTE - Attestation signed by Diony Ariza MD at 10/30/2023 12:59 PM I was present for the entire procedure. CYSTOURETHROSCOPY, WITH RETROGRADE PYELOGRAM (B) Operative Note Date: 10/28/2023 Location: [facility] Name: Trae Pineda, : 1950, [...] Priority Lab ID A Bladder washing Urine NON-BIOLOGY INTERNSHIP CYTOLOGY - CELLULAR EXAM Diony Ariza MD 10/28/23801 B Urine, Catheterized Urine NON-BIOLOGY INTERNSHIP CYTOLOGY - CELLULAR EXAM Diony Ariza MD 10/28/23 0802 Routine Description: BLADDER URINE FOR CULTURE Staff: Shell Trim Operator: Shena Calvillo RN; Dafne Carrillo RN Relief Shell Trim Operator: Kristian Cuevas RN Indications: Trae Pineda is [...] in outpatient urology clinic. Diony Ariza Normal [facility] Orders Onlyon 10-28-2023 Orders Only [id number] Trae Pineda 1950 M Date Provider Department Center 10/28/2023 Lauren-HUGO HUSTON [facility] Second Fl No family history on file Normal [facility] POCT GLUCOSE METER UNSOLICIT ED RESULTSon 10-28-2023 Glucose [Mass/Vol] 132 mg/dL High 70-105 [facility] Comment on above: Order Comment: Waive d Testing in the ED is performed under the ED CLIA certificate #[id number]. Result Comment: [facility] Performed By: #### L [id number] ####[facility] ([facility])[address] [place] [address] URINE CULTURE, STERILE COLLE CTIONon 10-28-2023 Bacteria identified Cx Nom (U) No growth at 48 hours Normal [facility] Comment on above: Order Comment: Pre-o p diagnosis:Benign prostatic hyperplasia with lower urinary tract symptoms, symptom details unspecified [N40.1] Performed By: #### L [id number] ####[facility] ([facility])[address] [place] [address] GRAM STAIN RESULT Normal [facility] Comment on above: Order Comment: Pre-o p diagnosis:Benign prostatic hyperplasia with lower urinary tract symptoms, symptom details unspecified [N40.1] Result Comment: No p olymorphonuclear leukocytes seen No organisms seen Performed By: #### L [id number] ####[facility] ([facility])[address] [place] [address] [id number] 10-18-2023 [id number] HOLD CIALIS X 48 HRS STOP 10/26 MEDICATIONS TO TAKE DAY OF SURGERY WITH SIP OF WATER AMLODIPNE COREG INSULIN HUMULIN 70/30 IF YOU ARE GOING HOME AFTER YOUR SURGERY OR PROCEDURE, FOR YOUR SAFETY, YOUR SURGERY WILL BE CANCELLED IF BOTH OF THE FOLLOWING ARE NOT AVAILABLE: An adult tour bus driver/guide over the age of 18, that can [...] not wear perfume, make-up, nail citizen of the [place], or lotions on the day of your [...] need to make any changes, please call [phone]. Notify your surgeon if you develop any illness such as a cold, cough, fever, sore throat or vomiting between now and your surgery. Thank you for entrusting us with your care. [facility] Surgical Services Team Normal [facility] Refillon 10-01-2023 Refill [id number] Trae Pineda 1950 M Date Provider Department Center 10/01/2023 MOISES SANON [facility] Second Fl No family history on file Reason for Visit and Comments: Med Refill [[id number]] Normal [facility] Consent for Treatmenton 08-19 Consent for Treatment [id number]# 1.00TIFF [facility] Consultation Noteon 09-06-20 Consultation Note Patient: KATERINA [...] History of heart attack / SNOMED CT 2672396330 / Confirmed Acute angina / SNOMED CT 224978200 / Confirmed Irregular heart beat / SNOMED CT 982325378 / Confirmed HTN (hypertension) / SNOMED CT 4747585915 / Confirmed High cholesterol / SNOMED CT 19748711 / Confirmed H/O heart bypass surgery / SNOMED CT 127015264 / Confirmed Apnea, sleep / SNOMED CT 843202443 / Confirmed CPAP (continuous positive airway pressure) dependence / SNOMED CT 0576698690 / Confirmed Enlarged prostate / SNOMED CT 340869549 / Confirmed Chronic kidney disease (CKD) / SNOMED CT 9986054830 / Confirmed Diabetes / SNOMED CT 556708762 / Confirmed Carpal tunnel syndrome / SNOMED CT 14046043 / Confirmed Anemia / SNOMED CT 314402586 / Confirmed Arthritis, rheumatoid / SNOMED CT 702379262 / Confirmed Obesity / ICD-9-CM 278.00 / Possible Obesity / SNOMED CT V0973G17-9381-8M16-B6 [id number]-[id number] / Possible Objective Vital Signs 09/06/2023 11:09 [...] straight leg raise bilaterally Integumentary: Warm, Dry, [place]. Neurologic: Alert, Oriented. Psychiatric: Cooperative, Appropriate mood [...] sooner if necessary. LEONOR score: 36% Normal [facility] Comment on above: Result Comment: Elec tronically Signed By: Margareth De La Cruz PA-C\.br\Date and Time Signed: 09/06/23 11:33 EDT\.br\Electronically Co-Signed By: John Cannon DO.dawit\Date and Time Co-Signed: 09/09/23 10:07 EDT Office/Clinic Note-Physician on 09-06-2023 Office/Clinic Note-Physician [id number]#1 [address]00[address] [facility] Orders Officeon 09-06-2023 Orders Office [id number]#[address] [facility] Patient Correspondenceon Patient Correspondence [id number]#[address] [facility] Patient Correspondence [id number]#1 .00TIFF [facility] Patient History Officeon Patient History Office [id number]#1 .00TIFF [facility] Follow-Upon 09-03-2023 Follow-Up [id number] Igor Pinedary Lorenzo 1950 M [facility] Provider Department [place] 09/03/20[facility] No family history on file Level of Service:07519 MD OFFICE/OUTPATIENT ESTABLISHED MOD MDM 30-39 MIN Reason for Visit and Comments: Hypogonadism [185] - Labs / flow PVR [facility] Orders Onlyon 09-02-2023 Orders Only [id number] Trae Pineda 1950 M [facility] Provider Department [place] 09/02/2023 Doroteo-SHY VALADEZ None No family history on file [facility] 36on 08-29-2023 36 This is a request fo r Dr. Ariza patient. Can you please assist with this refill? [facility] Refillon 08-29-2023 Refill [id number] Trae Pineda 1950 [facility] Provider Department [place] 08/29/2023 [facility] Second Fl No family history on file Reason for Visit and Comments: Med Refill [[id number]] [facility] Consent for Procedure/Surger yon 08-06-2023 Consent for Procedure/Surgery [id number]# 1.00CD:127 [facility] Consent for Treatmenton 07-19 Consent for Treatment [id number]#1 .00CD:[address] [facility] Discharge Instructionson Discharge Instructions [id number]# 1.00CD:[address] [facility] IntraOperative Documentson 0 08-06-2023 IntraOperative Documents [id number]# 1.00CD:[address] [facility] Main OR Intraoperative Recor don 08-06-2023 Main OR Intraoperative Record IntraOp Document Type FTPM Summary Primary Physician: Himanshu Wright MD Finalized Date/Time: 08/06/23 14:19:56 Pt. Name: TRAE PINEDA Lorenzo /Sex: 1950 Male Med Rec #: [id number] Physician: Himanshu Wright MD Financial #: [id number] Pt. Type: P Room/Bed: / Admit/Disch: 08/06/23 [...] Deysi Herrera Role Performed Surgeon - Primary Shell Trim Operator - Primary Scrub - Primary Time In [...] Leanne Dennis Role Performed Scrub - Relief Tip Cementer Time In 08/06/23 14:12:00 08/06/23 14:12:00 Time [...] Out Lula Hartley RN, Given Participants Deysi Casper, Adriana ARMANDO, Himanshu Lopez, Tai PEREZ, Lia Mercedes Amy [...] and tissue Entry 1 Skin Integrity Intact, [place], Warm, and Skin Abnormality No Dry Outcomes [...] Arm Posi (more content not included)... Normal [facility] Main OR Preoperative Recordo n 08-06-2023 Main OR Preoperative Record Holding Area Document Type FTPM Summary Primary Physician: Himanshu Wright MD Finalized Date/Time: 08/06/23 14:02:18 Pt. Name: TRAE PINEDA/Sex: 1950 Male Med Rec #: [id number] Physician: Himanshu Wright MD Financial #: [id number] Pt. Type: P Room/Bed: / Admit/Disch: 08/06/23 13:44:28 - Institution: Case Times Holding FTPM Pre-Care Text: Verifies consent for planned procedure, identifies individual values and wishes concerning care, includes family members in perioperative teaching Secures patient's records' belongings, and valuables, maintains patient's dignity and privacy, and maintains patient confidentiality Entry 1 In Holding 08/06/23 13:59:00 Outcomes Met? Yes Last Modified By: sIa Romero RN 08/06/23 13:59:59 Post-Care Text: The [...] By: Isa Romero RN 08/06/23 14:[address] [facility] Operative Reporton 3 Operative Report Patient: [...] 70 mmHg SpO2 97 % . Normal [facility] Comment on above: Result Comment: Elec tronically Signed By: Adriana ARMANDO, Himanshu Lopez\.br\Date and Time Signed: 08/06/23 14:[address] CHEST WO CONon 03-07-2023 CT CHEST [...] SLOAN SOSA Date: 2023-03-07 10:24 Normal [facility] TESTOSTERONE, FREE,DIRECT, T OTALon 01-24-2023 Free Testosterone(Direct) 10.1 pg/mL Normal 6.6-18.1 [facility] Comment on above: Result Comment: Perf ormed at: BN Performed By: #### L [facility] #### [facility] [address] [place] [address] Dr. Zan Escalante Testosterone [Mass/Vol] 622 ng/dL Normal 264-916 [facility] Comment on above: Result Comment: Adul t male reference interval is based on a population of healthy nonobese males (BMI <30) between 19 and 39 years old. Nate et.al. JCEM 2017,102;9582-7573. PMID: 15916667. Performed at: CB Performed By: #### L JENNYFER #### [facility] [address] [address] [address] Zan Escalante ESTRADIOLon 01-19-2023 Estradiol 21.4 pg/mL Normal 7.6-42.6 [facility] Comment on above: Result Comment: Anastacio ventura ECLIA methodology Performed By: #### L JENNYFER #### [facility] [address] [address] [address] Zan Escalante FSHon 01-19-2023 FSH 0.3 mIU/mL Critically low 1.5-12.4 [facility] Comment on above: Performed By: #### L BCFSH #### [facility] [address] [address] [address] Zan Escalante LUTEINIZING HORMONE (LH)on 0 01-19-2023 LH <0.3 Critically low 1.7-8.6 [facility] Comment on above: Performed By: #### L BCLH #### [facility] [address] [address] [address] Zan Escalante PROLACTINon 01-19-2023 Prolactin 6.5 ng/mL Normal 4.0-15.2 [facility] Comment on above: Performed By: #### L BCLH #### [facility] [address] [place] [address] Dr. Zan Escalante SEX HORMONE-BINDING GLOBULIN on 01-19-2023 Sex Horm Binding Glob, Serum 28.3 nmol/L Normal 19.3-76.4 [facility] Comment on above: Performed By: #### S EXHBG #### [facility] [address] [address] [address] Zan Escalante CHEMISTRYOrdered By: Lab ROP User on 12-12-2022 Glucose [Mass/Vol] 157 mg/dL High 55 - 99 mg/dL FTM C POC Subsection POC Device SN [id number] Invalid Interpretation Code [facility] POC Subsection POC User ID [id number] Invalid Interpretation Code [facility] POC Subsection POC Username THOMAS FARR Invalid Interpretation Code [facility] POC Subsection TESTOSTERONE, FREE,DIRECT, T OTALon 09-01-2022 Free Testosterone(Direct) 4.2 pg/mL Critically low 6.6-18.1 [facility] Comment on above: Result Comment: Perf ormed at: BN Performed By: #### T ESTFRD #### [facility] [address] [place] [address] Dr. Zan Escalante Testosterone [Mass/Vol] 171 ng/dL Critically low 264-916 [facility] Comment on above: Result Comment: Adul t male reference interval is based on a population of healthy nonobese males (BMI <30) between 19 and 39 years old. jeancarlos Sullivan.al. JCEM 2017,102;9681-4637. PMID: 30559312. Performed at: CB Performed By: #### T ESTFRD #### [facility] [address] [address] [address] Zan Escalante ESTRADIOLon 08-30-2022 Estradiol 28.9 pg/mL Normal 7.6-42.6 [facility] Comment on above: Result Comment: Anastacio ventura ECLIA methodology Performed By: #### L BCLH #### [facility] [address] [place] [address] Dr. Zan Escalante FSHon 08-30-2022 FSH 3.0 mIU/mL Normal 1.5-12.4 [facility] Comment on above: Performed By: #### L BCFSH #### [facility] [address] [address] [address] Zan Escalante LUTEINIZING HORMONE (LH)on 1 LH 5.7 mIU/mL Normal 1.7-8.6 [facility] Comment on above: Performed By: #### L BCLH #### [facility] [address] [place] [address] Dr. Zan Escalante PROLACTINon 08-30-2022 Prolactin 8.6 ng/mL Normal 4.0-15.2 [facility] Comment on above: Performed By: #### L BCLH #### [facility] [address] [place] [address] Dr. Zan Escalante SEX HORMONE-BINDING GLOBULIN on 08-30-2022 Sex Horm Binding Glob, Serum 22.7 nmol/L Normal 19.3-76.4 [facility] Comment on above: Performed By: #### S EXHBG #### [facility] [address] [place] [address] Dr. Zan Escalante ECHOCARDIO M/2D COMPLETEon 0 07-31-2022 ECHOCARDIO M/2D COMPLETE Patient: EDWIN TRAE VenturaBryan Exam Date: 07/31/2022 : 1950 Gender:M Ordering : DR MOI MOSS M.D. Admission #: [id number] Family : Order #: [id number] CLICK HERE TO VIEW EXAM ECHOCARDIOGRAM REPORT [...] Moss M.D. on 07/31/2022 at 18:09 Normal [facility] *URINE CATH CULTUREon 2021 *URINE CATH [...] Susceptible VANCOMYCIN (VA) 1 Susceptible Normal [facility] Comment on above: Order Comment: 1. Ur ine Performed By: #### 3 0478 #### [address] Operative Reporton 2 Operative Report MR#: [id number] S [facility] Pt. Name: Trae Pineda Room #: 0C Discharge Date: Birthdate: 1950 OPERATIVE REPORT DATE OF SURGERY: 07/02/2022 SURGEON: Diony Ariza MD VP LEGAL AFFAIRS: Kolby ARMANDO PGY3 PREOPERATIVE DIAGNOSIS: Benign prostatic [...] the room agreed. A well lubricated rigid 22-Honduran cystoscopic sheath with a 30-degree lens was [...] bleeding due to scope trauma so 18 montserratian leggett was inserted. Urine was with significant [...] Jarrett MD Date Trans: 07/02/2022 03:30 P/ [id number]:[id number] cc: Cristobal Kearns D.O. [address] [facility], [address] [facility] [address] Normal [facility] POC GLUCOSE LABon 07-02-2022 Glucose [Mass/Vol] 130 mg/dL High 70-100 [facility] Comment on above: Performed By: #### 8 5499 #### [facility] [address] [place] [address], [facility] MICROALBUMIN URINEon 022 Albumin, Urine 42.2 ug/mL Normal Not Estab. [facility] Comment on above: Performed By: #### L BCLH #### [facility] [address] [address] [address] Zan Escalante CBC AUTO DIFFon 06-29-2022 BASO # 0.1 103/ul Normal 0.0-0.1 [facility] Comment on above: Performed By: #### C BC #### [facility] [address] [place] [address] Dr. Zan Escalante Basophils/100 WBC (Bld) 1.1 % Normal 0.2-2.0 [facility] Comment on above: Performed By: #### C BC #### [facility] [address] [place] [address] Dr. Zan Escalante EO # 0.6 103/ul Normal 0.0-0.7 [facility] Comment on above: Performed By: #### C BC #### [facility] [address] [address] [address] Zan Escalante Eosinophils/100 WBC (Bld) 7.0 % Normal 0.9-7.0 [facility] Comment on above: Performed By: #### C BC #### [facility] [address] [place] [address] Dr. Zan Escalante Erythrocyte distribution width (RBC) [Ratio] 13.8 % Normal 11.0-15.0 [facility] Comment on above: Performed By: #### C BC #### [facility] [address] [place] [address] Dr. Zan Escalante Hematocrit (Bld) [Volume fraction] 40.9 % Critically low 42.0-54.0 [facility] Comment on above: Performed By: #### C BC #### [facility] [address] [place] [address] Dr. Zan Escalante Hemoglobin (Bld) [Mass/Vol] 13.1 g/dL Critically low 14.0-18.0 [facility] Comment on above: Performed By: #### C BC #### [facility] [address] [place] [address] Dr. Zan Escalante IG # 0.04 10e3/ul Critically high 0.00-0.03 [facility] Comment on above: Performed By: #### C BC #### [facility] [address] [place] [address] Dr. Zan Escalante IG % 0.5 % Normal 0.0-0.5 [facility] Comment on above: Performed By: #### C BC #### [facility] [address] [place] [address] Dr. Zan Escalante LYMPH # 3.0 103/ul Normal 1.2-3.8 [facility] Comment on above: Performed By: #### C BC #### [facility] [address] [place] [address] Dr. Zan Escalante Lymphocytes/100 WBC (Bld) 33.4 % Normal 20.5-60.0 [facility] Comment on above: Performed By: #### C BC #### [facility] [address] [place] [address] Dr. Zan Escalante MANUAL DIFF REQ NO Normal [facility] Comment on above: Performed By: #### C BC #### [facility] [address] [place] [address] Dr. Zan Escalante MCH (RBC) [Entitic mass] 29.6 pg Normal 25.9-34.0 [facility] Comment on above: Performed By: #### C BC #### [facility] [address] [place] [address] Dr. Zan Escalante MCHC (RBC) [Mass/Vol] 32.0 g/dL Normal 29.9-35.2 [facility] Comment on above: Performed By: #### C BC #### [facility] [address] [address] [address] Zan Escalante MCV (RBC) [Entitic vol] 92.3 fL Normal 80.0-94.0 [facility] Comment on above: Performed By: #### C BC #### [facility] [address] [address] [address] Zan Escalante MONO # 0.8 103/ul Normal 0.3-0.8 [facility] Comment on above: Performed By: #### C BC #### [facility] [address] [address] [address] Zan Escalante Monocytes/100 WBC (Bld) 9.4 % Normal 1.7-12.0 [facility] Comment on above: Performed By: #### C BC #### [facility] [address] [address] [address] Zan Escalante NEUT # 4.3 103/ul Normal 1.4-6.5 [facility] Comment on above: Performed By: #### C BC #### [facility] [address] [address] [address] Zan Escalante Neutrophils/100 WBC (Bld) 48.6 % Normal 43.0-75.0 [facility] Comment on above: Performed By: #### C BC #### [facility] [address] [address] [address] Zan Escalante Platelet mean volume (Bld) [Entitic vol] 11.2 fL Normal 9.5-13.5 [facility] Comment on above: Performed By: #### C BC #### [facility] [address] [address] [address] Zan Escalante PLT 185 103/ul Normal 150-450 [facility] Comment on above: Performed By: #### C BC #### [facility] [address] [address] [address] Zan Escalante RBC 4.43 106/ul Critically low 4.70-6.10 [facility] Comment on above: Performed By: #### C BC #### [facility] [address] [place] [address] Dr. Zan Escalante WBC 8.9 103/ul Normal 4.0-11.0 [facility] Comment on above: Performed By: #### C BC #### [facility] [address] [place] [address] Dr. aZn Escalante Covid-19 PCR ([facility])on 06-18 SARS-CoV-2 (COVID-19) RNA KRISTEL+probe Ql (Unsp spec) Not detected Normal NOT DETECTED [facility] Comment on above: Result Comment: This test is not yet approved or cleared by the [place] FDA. When there are no FDA-approved or cleared tests available, and other criteria are met, FDA can make tests available under an emergency access mechanism called an Emergency Use Authorization (EUA). The EUA for this test is supported by the Typing Bookkeeper of Health and Human Service's (HHS's) declaration [...] consistent with SARS-CoV-2. Performed By: #### L [facility] #### [facility] [address] [place] [address] Dr. Zan Escalante GLYCOHEMOGLOBIN A1Con 2021 ADA RECOMMENDATION SEE BELOW Normal [facility] Comment on above: Result Comment: ADA RECOMMENDED LIMIT 4.0 - 6.0 ADA THERAPEUTIC TARGET < 7.0 ACTION SUGGESTED > 7.0 Performed By: #### A 1C #### [facility] [address] [place] [address] Dr. Zan Escalante Glucose [Mass/Vol] 143 mg/dL Normal [facility] Comment on above: Performed By: #### A 1C #### [facility] [address] [address] [address] Zan Escalante HbA1c (Bld) [Mass fraction] 6.6 % Critically high 4.5-6.2 [facility] Comment on above: Performed By: #### A 1C #### [facility] [address] [address] [address] Zan Escalante LIPID PROFILEon 06-29-2022 CHOL-HDL RATIO NORM SEE BELOW Normal [facility] Comment on above: Result Comment: 3.3 - 4.4 LOW RISK 4.4 - 7.1 AVERAGE RISK 7.1 - 11.0 MODERATE RISK >11.0 HIGH RISK Performed By: #### B MP, LIPID #### [facility] [address] [place] [address] Dr. Zan Escalante Cholesterol [Mass/Vol] 105 mg/dL Normal <=200 [facility] Comment on above: Performed By: #### B MP, LIPID #### [facility] [address] [address] [address] Zan Escalante Cholesterol in HDL [Mass/Vol] 39 mg/dL Critically low 40-60 [facility] Comment on above: Performed By: #### B MP, LIPID #### [facility] [address] [place] [address] Dr. Zan Escalante Cholesterol in LDL [Mass/Vol] 45.0 mg/dL Normal [facility] Comment on above: Performed By: #### B MP, LIPID #### [facility] [address] [address] [address] Zan Escalante Cholesterol.total/Ch olesterol in HDL [Mass ratio] 2.7 {ratio} Normal [facility] Comment on above: Performed By: #### B MP, LIPID #### [facility] [address] [place] [address] Dr. Zan Escalante HDL NORMAL > or = 60 mg/dl - LO W CARDIOVASCULAR RISK <40 mg/dl - HIGH CARDIOVASCULAR RISK Normal [facility] Comment on above: Performed By: #### B MP, LIPID #### [facility] [address] [place] [address] Dr. Zan Escalante LDL CALC NORMAL SEE BELOW Normal [facility] Comment on above: Result Comment: <100 mg/dl OPTIMAL 100 - 129 mg/dl NEAR OR ABOVE OPTIMAL 130 - 159 mg/dl BORDERLINE HIGH 160 - 189 mg/dl HIGH >190 mg/dl VERY HIGH Performed By: #### B MP, LIPID #### [facility] [address] [address] [address] Zan Escalante Triglyceride [Mass/Vol] 105 mg/dL Normal <=150 [facility] Comment on above: Performed By: #### B MP, LIPID #### [facility] [address] [address] [address] Zan Escalante VLDL CALC 21.0 mg/dL Normal [facility] Comment on above: Performed By: #### B MP, LIPID #### [facility] [address] [address] [address] Zan Escalante PROF CHEM 8 (BAS METB)on Anion gap [Moles/Vol] 12.1 mmol/L Normal [facility] Comment on above: Performed By: #### B MP, LIPID #### [facility] [address] [address] [address] Zan Escalante Calcium [Mass/Vol] 9.0 mg/dL Normal 8.5-10.1 [facility] Comment on above: Performed By: #### B MP, LIPID #### [facility] [address] [address] [address] Zan Escalante Chloride [Moles/Vol] 106 mmol/L Normal 98-107 [facility] Comment on above: Performed By: #### B MP, LIPID #### [facility] [address] [address] [address] Zan Escalante CO2 [Moles/Vol] 28.4 mmol/L Normal 21.0-32.0 [facility] Comment on above: Performed By: #### B MP, LIPID #### [facility] [address] [address] [address] Zan Escalante Creatinine [Mass/Vol] 1.39 mg/dL Critically high 0.70-1.30 [facility] Comment on above: Performed By: #### B MP, LIPID #### [facility] [address] [address] [address] Zan Escalante EGFR-AF ANGOLAN >60 Normal >=60 [facility] Comment on above: Performed By: #### B MP, LIPID #### [facility] [address] [address] [address] Zan Escalante EGFR-NON AF ANGOLAN 50 mL/min/1.73m2 Critically low >=60 [facility] Comment on above: Performed By: #### B MP, LIPID #### [facility] [address] [address] [address] Zan Escalante Glucose [Mass/Vol] 96 mg/dL Normal 74-106 [facility] Comment on above: Performed By: #### B MP, LIPID #### [facility] [address] [address] [address] Zan Escalante Potassium [Moles/Vol] 4.5 mmol/L Normal 3.5-5.1 [facility] Comment on above: Performed By: #### B MP, LIPID #### [facility] [address] [address] [address] Zan Escalante Sodium [Moles/Vol] 142 mmol/L Normal 136-145 [facility] Comment on above: Performed By: #### B MP, LIPID #### [facility] [address] [address] [address] Zan Escalante Urea nitrogen [Mass/Vol] 23.0 mg/dL Critically high 7.0-18.0 [facility] Comment on above: Performed By: #### B MP, LIPID #### [facility] [address] [address] [address] Zan Escalante Urea nitrogen/Creatinine [Mass ratio] 16.5 mg/mg Normal [facility] Comment on above: Performed By: #### B MP, LIPID #### [facility] [address] [address] [address] Zan Escalante ESTRADIOLon 04-17-2022 ESTRADIOL 20.7 pg/mL Low 27-52 [facility] [place] Normal [facility] Comment on above: Result Comment: Test Performed by [employer] [facility] [employer] [address] [place] [address] - Released 04/17/2022 14:29 Result Comment: Test Performed by [employer] [facility] [employer] [address] [place] [address] - Released 04/17/2022 14:30 TESTOSTERONE, TOTAL ILon Testosterone [Mass/Vol] 108 ng/dL Low 220-[address] [facility] [address] UROGRAMon 03-13-2022 CT UROGRAM [facility] Department of Radiology [address] [place] [address] Patient Name: TRAE PINEDA : 1950 Sex: M Age: Race: White Pt. Location: [facility] Patient Status: D Ordered Date: 02/22/2022 4:30:00 [...] achievable Electronically signed: Aquilino Johnson. Transcribed by: [email or web address], User Resident: Electronically Signed by: AQUILINO JOHNSON @ 03/15/2022 01:05 PM Normal [facility] Vital Signs Date Time Vital Sign Value Performing Clinician Facility 05-18-2024 13:07-0400 Diastolic blood pressure 71 mm[Hg] Margareth De La Cruz [facility] 05-18-2024 13:07-0400 Heart rate 59 /min Margareth De La Cruz [facility] 05-18-2024 13:07-0400 Mean blood pressure 99 mm[Hg] Margareth De La Cruz [facility] 05-18-2024 13:07-0400 Respiratory rate 16 /min Margareth Vitryn [facility] 05-18-2024 13:07-0400 Systolic blood pressure 156 mm[Hg] Margareth Vitryn [facility] 03-27-2024 14:19-0400 Diastolic blood pressure 69 mm[Hg] Margareth Vitryn [facility] 03-27-2024 14:19-0400 Heart rate 69 /min Margareth Vitryn [facility] 03-27-2024 14:19-0400 Mean blood pressure 96 mm[Hg] Margareth Vitryn [facility] 03-27-2024 14:19-0400 Respiratory rate 15 /min Margareth Vitryn [facility] 03-27-2024 14:19-0400 Systolic blood pressure 151 mm[Hg] Margareth Vitryn [facility] 02-14-2024 13:32-0400 Diastolic blood pressure 62 mm[Hg] Margareth Vitryn [facility] 02-14-2024 13:32-0400 Heart rate 66 /min Margareth Vitryn [facility] 02-14-2024 13:32-0400 Mean blood pressure 87 mm[Hg] Margareth Vitryn [facility] 02-14-2024 13:32-0400 Respiratory rate 14 /min Margareth Vitryn [facility] 02-14-2024 13:32-0400 Systolic blood pressure 136 mm[Hg] Margareth Vitryn [facility] 01-15-2024 14:27-0500 Heart rate 63 /min John Cannon [facility] 01-15-2024 14:27-0500 SaO2% (BldA) [Mass fraction] 100 % John Cannon [facility] 01-15-2024 14:27-0500 Respiratory rate 16 /min John Cannon [facility] 01-15-2024 14:26-0500 Diastolic blood pressure 78 mm[Hg] John Cannon [facility] 01-15-2024 14:26-0500 Mean blood pressure 116 mm[Hg] John Cannon [facility] 01-15-2024 14:26-0500 Systolic blood pressure 192 mm[Hg] Lopez Davis [facility] 01-15-2024 14:17-0500 Diastolic blood pressure 76 mm[Hg] John Cannon [facility] 01-15-2024 14:17-0500 Heart rate 66 /min Lopez Davis [facility] 01-15-2024 14:17-0500 Respiratory rate 14 /min Lopez Davis [facility] 01-15-2024 14:17-0500 SaO2% (BldA) [Mass fraction] 96 % John Davis [facility] 01-15-2024 14:17-0500 Systolic blood pressure 143 mm[Hg] John Cannon [facility] 01-15-2024 13:42-0500 gluc 128 mg/dL John Davis [facility] Comment on above: Result Comment: per pt's meter on right arm 01-15-2024 13:30-0500 Heart rate 60 /min John Cannon [facility] 01-15-2024 13:30-0500 SaO2% (BldA) [Mass fraction] 99 % John Cannon [facility] 01-15-2024 13:30-0500 Body temperature 97.34 [degF] John Cannon [facility] 01-15-2024 13:30-0500 Diastolic blood pressure 78 mm[Hg] John Cannon [facility] 01-15-2024 13:30-0500 Mean blood pressure 111 mm[Hg] John Cannon [facility] 01-15-2024 13:30-0500 Systolic blood pressure 175 mm[Hg] John Cannon [facility] 01-15-2024 13:29-0500 Respiratory rate 14 /min John Cannon [facility] 12-16-2023 10:23-0500 Diastolic blood pressure 66 mm[Hg] Margarethita De La Cruz [facility] 12-16-2023 10:23-0500 Heart rate 70 /min Margareth De La Cruz [facility] 12-16-2023 10:23-0500 Mean blood pressure 92 mm[Hg] Margarethita De La Cruz [facility] 12-16-2023 10:23-0500 Respiratory rate 14 /min Margareth De La Cruz [facility] 12-16-2023 10:23-0500 Systolic blood pressure 144 mm[Hg] Margareth De La Cruz [facility] 11-12-2023 10:00-0500 Body height 182.88 cm Cristobal Kearns Other [employer] Other 11-12-2023 10:00-0500 Body mass index (BMI) [Ratio] 32.46 kg/m2 Cristobal Kearns Other [facility] Other 11-12-2023 10:00-0500 Body weight 108.59 kg Cristobal Ball Other [facility] Other 11-12-2023 10:00-0500 Diastolic blood pressure 76 mm[Hg] Cristobal Ball Other [facility] Other 11-12-2023 10:00-0500 Respiratory rate 16 /min Cristobal Ball Other [facility] Other 11-12-2023 10:00-0500 Systolic blood pressure 137 mm[Hg] Cristobal Ball Other [facility] Other 11-08-2023 10:58-0500 Diastolic blood pressure 71 mm[Hg] Margareth Vitryn [facility] 11-08-2023 10:58-0500 Heart rate 63 /min Margareth Vitryn [facility] 11-08-2023 10:58-0500 Mean blood pressure 93 mm[Hg] Margareth Vitryn [facility] 11-08-2023 10:58-0500 Respiratory rate 15 /min Margareth Vitryn [facility] 11-08-2023 10:58-0500 Systolic blood pressure 136 mm[Hg] Margareth Vitryn [facility] 09-06-2023 11:09-0400 Diastolic blood pressure 77 mm[Hg] Margareth Vitryn [facility] 09-06-2023 11:09-0400 Heart rate 59 /min Margareth Vitryn [facility] 09-06-2023 11:09-0400 Mean blood pressure 106 mm[Hg] Margareth Vitryn [facility] 09-06-2023 11:09-0400 Respiratory rate 16 /min Margareth De La Cruz [facility] 09-06-2023 11:09-0400 Systolic blood pressure 163 mm[Hg] Margareth De La Cruz [facility] 08-06-2023 14:22-0400 Heart rate 59 /min Himanshu Adriana [facility] 08-06-2023 14:22-0400 SaO2% (BldA) [Mass fraction] 99 % Himanshu Adriana [facility] 08-06-2023 14:22-0400 Diastolic blood pressure 91 mm[Hg] Himanshu Adriana [facility] 08-06-2023 14:22-0400 Mean blood pressure 107 mm[Hg] Himanshu Adriana [facility] 08-06-2023 14:22-0400 Systolic blood pressure 139 mm[Hg] Himanshu Adriana [facility] 08-06-2023 14:15-0400 Diastolic blood pressure 80 mm[Hg] Himanshu Adriana [facility] 08-06-2023 14:15-0400 Heart rate 58 /min Himanshu Adriana [facility] 08-06-2023 14:15-0400 SaO2% (BldA) [Mass fraction] 97 % Himanshu Adriana [facility] 08-06-2023 14:15-0400 Systolic blood pressure 146 mm[Hg] Himanshu Adriana [facility] 08-06-2023 13:52-0400 Respiratory rate 14 /min Himanshu Adriana [facility] 08-06-2023 13:00-0400 Body temperature 98.06 [degF] Himanshu Wright [facility] 08-06-2023 13:00-0400 Diastolic blood pressure 70 mm[Hg] Himanshu Wright [facility] 08-06-2023 13:00-0400 Heart rate 67 /min Himanshu Wright [facility] 08-06-2023 13:00-0400 Systolic blood pressure 144 mm[Hg] Himanshu Wright [facility] 07-02-2023 14:17-0400 Diastolic blood pressure 71 mm[Hg] Margareth Vitryn [facility] 07-02-2023 14:17-0400 Heart rate 61 /min Margareth Vitryn [facility] 07-02-2023 14:17-0400 Mean blood pressure 97 mm[Hg] Margareth Vitryn [facility] 07-02-2023 14:17-0400 Respiratory rate 14 /min Margareth Vitryn [facility] 07-02-2023 14:17-0400 Systolic blood pressure 148 mm[Hg] Margareth Vitryn [facility] 01-11-2023 13:43-0500 Diastolic blood pressure 75 mm[Hg] Margareth Vitryn [facility] 01-11-2023 13:43-0500 Heart rate 76 /min Margareth Vitryn [facility] 01-11-2023 13:43-0500 Mean blood pressure 105 mm[Hg] Margareth Vitryn [facility] 01-11-2023 13:43-0500 Respiratory rate 18 /min Margareth Vitryn [facility] 01-11-2023 13:43-0500 Systolic blood pressure 166 mm[Hg] Margareth De La Cruz [facility] 01-08-2023 13:30-0500 Body height 182.88 cm Cristobal Ball Other [employer] Other 01-08-2023 13:30-0500 Body mass index (BMI) [Ratio] 32.11 kg/m2 Cristobal Ball Other [employer] Other 01-08-2023 13:30-0500 Body weight 107.41 kg Cristobal Ball Other [employer] Other 01-08-2023 13:30-0500 Diastolic blood pressure 70 mm[Hg] Cristobal Ball Other [employer] Other 01-08-2023 13:30-0500 Respiratory rate 16 /min Cristobal Ball Other [employer] Other 01-08-2023 13:30-0500 Systolic blood pressure 126 mm[Hg] Cristobal Ball Other [employer] Other 12-12-2022 11:00-0500 Heart rate 73 /min Tutu Zumbar [facility] 12-12-2022 11:00-0500 SaO2% (BldA) [Mass fraction] 98 % Tutu Zumbar [facility] 12-12-2022 11:00-0500 Diastolic blood pressure 75 mm[Hg] Tutu Zumbar [facility] 12-12-2022 11:00-0500 Mean blood pressure 108 mm[Hg] Tutu Zumbar [facility] 12-12-2022 11:00-0500 Systolic blood pressure 173 mm[Hg] Tutu Zumbar [facility] 12-12-2022 10:51-0500 Diastolic blood pressure 88 mm[Hg] Tutu Zumbar [facility] 12-12-2022 10:51-0500 Heart rate 71 /min Tutu Zumbar [facility] 12-12-2022 10:51-0500 Respiratory rate 16 /min Tutu Zumbar [facility] 12-12-2022 10:51-0500 SaO2% (BldA) [Mass fraction] 96 % Tutu Zumbar [facility] 12-12-2022 10:51-0500 Systolic blood pressure 157 mm[Hg] Tutu Zumbar [facility] 12-12-2022 10:13-0500 Heart rate 75 /min Tutu Zumbar [facility] 12-12-2022 10:13-0500 SaO2% (BldA) [Mass fraction] 97 % Tutu Zumbar [facility] 12-12-2022 10:13-0500 Body temperature 97.88 [degF] Tutu Zumbar [facility] 12-12-2022 10:12-0500 Diastolic blood pressure 76 mm[Hg] Tutu Zumbar [facility] 12-12-2022 10:12-0500 Mean blood pressure 108 mm[Hg] Tutu Zumbar [facility] 12-12-2022 10:12-0500 Systolic blood pressure 170 mm[Hg] Tutu Zumbar [facility] 12-12-2022 10:10-0500 Respiratory rate 16 /min Tutu Zumbar [facility] 11-08-2022 15:04-0500 Diastolic blood pressure 76 mm[Hg] Tutu Zumbar [facility] 11-08-2022 15:04-0500 Heart rate 62 /min Tutu Zumbar [facility] 11-08-2022 15:04-0500 Mean blood pressure 108 mm[Hg] Tutu Zumbar [facility] 11-08-2022 15:04-0500 Respiratory rate 14 /min Tutu Zumbar [facility] 11-08-2022 15:04-0500 Systolic blood pressure 173 mm[Hg] Tutu Zumbar [facility] Encounters Encounter Date Encounter Type Care Provider Facility Start: 08-13-2024 End: 08-13-2024 ambulatory [facility] Start: 08-03-2024 End: 08-03-2024 ambulatory Margareth De La Cruz Facility:[facility] Start: 07-27-2024 End: 07-27-2024 ambulatory [facility] Start: 05-19-2024 End: 05-19-2024 ambulatory [facility] Start: 05-18-2024 End: 05-18-2024 ambulatory Margareth De La Cruz Facility:[facility] Start: 05-18-2024 End: 05-18-2024 Pain Management Margareth De La Cruz [facility] Start: 05-11-2024 End: 05-11-2024 ambulatory [facility] Start: 05-11-2024 End: 05-11-2024 ambulatory [facility] Start: 03-27-2024 End: 03-27-2024 ambulatory PA-C Margareth De La Cruz Facility:[facility] Start: 03-27-2024 End: 03-27-2024 Pain Management Margarethita De La Cruz [facility] Start: 03-17-2024 End: 03-17-2024 ambulatory [facility] Start: 02-14-2024 End: 02-14-2024 ambulatory PA-C Margareth De La Cruz Facility:[facility] Start: 02-14-2024 End: 02-14-2024 Pain Management Margarethita De La Cruz [facility] Start: 02-11-2024 End: 02-11-2024 ambulatory Cristobal Kearns Other [employer] Other Start: 02-11-2024 Telephone encounter Cristobal Kearns [facility] Start: 01-20-2024 End: 01-20-2024 ambulatory [facility] Start: 01-15-2024 End: 01-15-2024 ambulatory John Cannon Facility:[facility] Start: 01-15-2024 End: 01-15-2024 Pain Management John Cannon [facility] Start: 01-01-2024 End: 01-01-2024 ambulatory [facility] Start: 12-16-2023 End: 12-16-2023 ambulatory PA-C Margareth De La Cruz Facility:[facility] Start: 12-16-2023 End: 12-16-2023 Pain Management Margarethita De La Cruz [facility] Start: 12-10-2023 End: 12-10-2023 ambulatory [facility] Start: 11-27-2023 End: 11-27-2023 ambulatory Cristobal Kearns Other [employer] Other Start: 11-27-2023 Telephone encounter Cristobal Kearns [facility] Start: 11-19-2023 End: 11-19-2023 ambulatory Cristobal Kearns Other [employer] Other Start: 11-19-2023 Telephone encounter Cristobal Kearns [facility] Start: 11-14-2023 End: 11-14-2023 ambulatory Cristobal Kearns Other [employer] Other Start: 11-14-2023 Telephone encounter Cristobal Kearns [facility] Start: 11-12-2023 End: 11-12-2023 ambulatory Cristobal Kearns Other [employer] Other Start: 11-12-2023 Office outpatient vi sit 25 minutes Cristobal Kearns [facility] Start: 11-08-2023 End: 11-08-2023 ambulatory CRISTOBAL KEARNS Facility:[facility] Start: 11-08-2023 End: 11-08-2023 Pain Management Margareth De La Cruz [facility] Start: 10-28-2023 End: 10-28-2023 ambulatory [facility] Start: 09-06-2023 End: 09-06-2023 ambulatory CRISTOBAL KEARNS Facility:[facility] Start: 09-06-2023 End: 09-06-2023 Pain Management Margareth De La Cruz [facility] Start: 09-04-2023 End: 09-04-2023 ambulatory Cristobal Kearns Other [employer] Other Start: 09-04-2023 Telephone encounter Cristobal TELLEZ [facility] Start: 09-03-2023 End: 09-03-2023 ambulatory [facility] Start: 08-21-2023 End: 08-21-2023 ambulatory Cristobal Kearns Other [employer] Other Start: 08-21-2023 Telephone encounter Cristobal TELLEZ [facility] Start: 08-06-2023 End: 08-06-2023 ambulatory MD Himanshu Wright Facility:[facility] Start: 08-06-2023 End: 08-06-2023 Pain Management Himanshu Wright [facility] Start: 07-23-2023 End: 07-23-2023 ambulatory Cristobal Kearns Other [employer] Other Start: 07-23-2023 Telephone encounter Cristobal TELLEZ [facility] Start: 07-02-2023 End: 07-02-2023 Pain Management Margareth Jono [facility] Start: 03-19-2023 End: 03-19-2023 ambulatory Cristobal Kearns Other [employer] Other Start: 03-19-2023 Office outpatient vi sit 15 minutes Cristobal Kearns [facility] Start: 03-08-2023 End: 03-08-2023 ambulatory Cristobal Kearns Other [employer] Other Start: 03-08-2023 Telephone encounter Cristobal Kearns [facility] Start: 03-07-2023 Telephone encounter Cristobal TELLEZ [facility] Start: 03-07-2023 End: 03-08-[address] CRISTOBAL KEARNS [employer] Other Start: 02-26-2023 End: 02-26-2023 ambulatory Cristobal Kearns Other [employer] Other Start: 02-26-2023 Telephone encounter Cristobal Kearns [facility] Start: 01-18-2023 Telephone encounter Cristobal TELLEZ [facility] Start: 01-18-2023 End: 01-19-[address] DOCTOR YIN [employer] Other Start: 01-11-2023 End: 01-11-2023 Pain Management Margareth De La Cruz [facility] Start: 01-08-2023 End: 01-08-2023 ambulatory Cristobal Kearns Other [facility] Other Start: 01-08-2023 Office outpatient vi sit 25 minutes Cristobal Kearns [facility] Start: 12-12-2022 End: 12-12-2022 Pain Management Tutu Barriosumbar [facility] Start: 11-23-2022 End: 11-23-[address] CRISTOBAL KEARNS Facility:[facility] Start: 11-18-2022 End: 11-22-[address] CRISTOBAL KEARNS Facility:[facility] Start: 11-08-2022 End: 11-08-2022 Patient encounter procedure Tutu Barriosumbar [facility] Start: 11-08-2022 End: 11-08-2022 Pain Management Tutu Barriosumbar [facility] Start: 08-29-2022 End: 08-30-[address] DOCTOR ADAMS Facility:[facility] Start: 07-31-2022 End: 08-01-[address] MOI MOSS Facility:[facility] Start: 07-02-2022 Encounter for preprocedural laboratory examination DR CRISTOBAL KEARNS [facility] Start: 06-29-2022 End: 06-30-2022 Encounter for preprocedural laboratory examination DR CRISTOBAL KEARNS Facility:[facility] Start: 06-29-2022 End: 06-30-[address] CRISTOBAL KEARNS Facility:[facility] Start: 06-14-2022 End: 11-17-[address] CRISTOBAL KEARNS Facility:[facility] Start: 03-13-2022 End: 03-14-2022 ambulatory LUPIS DENNIS Facility:[facility] Procedures Date Procedure Procedure Detail Performing Clinician Start: 05-11-2024 Follow-up visit Follow-up DIONY ARIZA Start: 01-15-2024 Epidural injection o f lumbar spine using fluoroscopic guidance [employer] Comment on above: 0% relief Start: 08-06-2023 Injection of nerve r oot of lumbar spine using fluoroscopic guidance [employer] Comment on above: bilat L5/S1 TFESI- 9 0% relief x 2 weeks Start: 12-12-2022 Injection of nerve r oot of lumbar spine using fluoroscopic guidance [employer] Comment on above: L5-S1-90% relief Start: 04-17-2022 PSA screening LUPIS JEANNIE Comment on above: Performed By: #### 4 [id number] #### [address] Start: 11-22-2021 Injection of nerve r oot of lumbar spine using fluoroscopic guidance [facility] Comment on above: Bilateral L5 TFESI-9 0-95% relief Start: 07-01-2020 Epidural steroid injection [facility] Comment on above: bilat L5 TFESI- 100% relief x 2 weeks now down to 50% Coronary bypass gustabo t angiography [facility] Comment on above: 2004 Decompression of med oleksandr nerve [facility] Comment on above: right 2012 Fracture of ankle (disorder) [facility] [employer] Comment on above: 1989 Klippel-Feil sequenc e (disorder) [employer] Comment on above: disc herniation and fusion 2008 Laminectomy [facility] Comment on above: nov 2019 Immunizations Immunization Date Immunization Notes Care Provider Kiki bautista 09-05-2022 influenza, high dose seasonal, preservative-free Cristobal Kearns Other [employer] Other 08-21-2021 influenza virus vaccine, split virus (incl. purified surface antigen) Cristobal Kearns Other [employer] Other 08-11-2021 COVID-19 Vaccine Pfi zer - Documentation Purposes Only Cristobal Kearns Other [employer] Other 01-10-2021 COVID-19 Vaccine Pfi zer - Documentation Purposes Only Cristobal Kearns Other [employer] Other 12-20-2020 COVID-19 Vaccine Pfi zer - Documentation Purposes Only Cristobal Kearns Other [employer] Other 08-12-2020 zoster vaccine, live Kylie Kearns Other [employer] Other 07-27-2020 influenza virus vaccine, split virus (incl. purified surface antigen) Cristobal Kearns Other [employer] Other 08-26-2019 influenza virus vaccine, split virus (incl. purified surface antigen) Cristobal Kearns Other [employer] Other 10-29-2018 influenza virus vaccine, split virus (incl. purified surface antigen) Cristobal Kearns Other [employer] Other 07-19-2017 influenza virus vaccine, split virus (incl. purified surface antigen) Cristobal Kearns Other [employer] Other 10-09-2016 influenza virus vaccine, split virus (incl. purified surface antigen) Cristobal Kearns Other [employer] Other 10-18-2015 influenza virus vaccine, split virus (incl. purified surface antigen) Cristobal Kearns Other [employer] Other 09-20-2015 pneumococcal conjuga te vaccine, 13 valent Cristobal Kearns Other [employer] Other 11-07-2012 pneumococcal polysaccharide vaccine, 23 valanya Kearns Other [employer] Other Payers Date Payer Category Payer Private Health Insurance [id number] 1950 Unknown [id number] 2.16.8 [id number] 1950 Unknown [id number] 2.16.84 0.1.457186.3.579.2.593 1950 Unknown [id number] 2.16.84 0.1.446672.3.579.2.593 1950 Unknown [id number] 2.16.84 0.1.748214.3.579.2.593 1950 Unknown [id number] 2.16.84 0.1.273462.3.579.2.593 1950 Unknown [id number] 2.16.84 0.1.879335.3.579.2.593 1950 Unknown [id number] 2.16.84 0.1.859717.3.579.2.593 1950 Unknown [id number] 2.16.84 0.1.304568.3.579.2.593 1950 Unknown [id number] 2.16.84 0.1.137132.3.579.2.593 1950 Unknown [id number] 2.16.84 0.1.819048.3.579.2.593 1950 Unknown [id number] 2.16.8 40.1.150671.3.579.2.727 1950 Unknown [id number] 2.16.8 40.1.950682.3.579.2.727 1950 Unknown [id number] 2.16.8 40.1.141184.3.579.2.727 1950 Unknown [id number] 2.16.8 40.1.198865.3.579.2.727 1950 Unknown [id number] 2.16.8 40.1.078460.3.579.2.727 1950 Unknown [id number] 2.16.8 40.1.370008.3.579.2.727 1950 Unknown [id number] 2.16.8 40.1.793183.3.579.2.727 1950 Unknown [id number] 2.16.8 40.1.761809.3.579.2.727 1950 Unknown [id number] 2.16.8 40.1.759493.3.579.2.727 Social History Date Type Detail Facility Start: 10-05-2021 Tobacco smoking status Ex-smoker (fi nding) [facility] Comment on above: Quit in 1982 Sex Assigned At Male [facility] Medical Equipment Procedure Code Equipment Code Equipment Origin al Text Equipment Identifier Dates Start: 04-09-2023 Functional Status Date Assessment Result Facility 05-18-2024 Functional Status N/A [facility] 03-27-2024 Functional Status N/A [facility] 02-14-2024 Functional Status N/A [facility] 01-15-2024 Functional Status N/A [facility] 12-16-2023 Functional Status N/A [facility] 11-08-2023 Functional Status N/A [facility] 09-06-2023 Functional Status N/A [facility] 08-06-2023 Functional Status N/A [facility] 07-02-2023 Functional Status N/A [facility] 01-11-2023 Functional Status N/A [facility] 12-12-2022 Functional Status N/A [facility] 11-08-2022 Functional Status N/A [facility] Clinical Notes 01-08-2023 to 08-13-2024 Note Date & Type Note Facility 08-13-2024 Note Prostate US Date/Time: 08/13/2024 2:01 PM Performed by: Diony Ariza MD Authorized by: Diony Ariza MD Procedure discussed: discussed risks, benefits and alternatives Burn Out Tender Lace present: no Timeout: timeout called immediately prior to procedure Anesthesia: local Position: left lateral decubitus Procedure: transrectal ultrasound Ultrasound Details Ultrasound images taken: axial and sagittal Findings Volume (mL): 55 Seminal vesicles: symmetric Prostate findings: adenoma Post-Procedure Details Outcome: patient tolerated procedure well with no complications Post-procedure interventions: post-procedure education provided Disposition: discharged home in satisfactory condition Additional Details I spent 25 minutes of face to face time with the patient after the procedure was finished to discuss the results of the procedure, on awake counselor and answer any questions. All of this time was spent counseling/coordinating care. During this time diagnosis, pathophysiology, findings, treatment options, risks benefits complications etc. were discussed with the patient in detail. - happy with Dutasteride - improved stream - still urgency and UUI - discussed trial of Myrbetriq - r/b/c explained - has low BP - he is happy that it might help with his pressures. Asked to discuss with his PCP - fu 3 months - see how medical management is helping. If good symptom control - keep checking PVR and IPSS. If fails - consider aquablation. - hold off on outlet procedure for now, per patient choice Check PVR 08/13/24 - 80 cc [facility] 08-03-2024 Note Consultation Note Patient: TRAE PINEDA Age: 74 years Sex: Male : 1950 Associated Diagnoses: None Author: Margareth De La Cruz PA-C Subjective Chief complaint 08/03/2024 14:37 EDT low back pain . Patient is a 74-year-old male following up today after a 2-month hiatus. He was trying different dosages of the Lyrica. He was using 50 mg twice daily but noticed maybe a little bit of tiredness throughout the day. It was tolerable but then he was driving back and forth to [place] for his . She ended up passing away in June from cancer. I gave our condolences. At this time he has lower back pain with some numbness in his right foot but mainly leg fatigue. This affects his ambulatory status. This affects his quality of life. This affects his activities and affects his ability to do things he wants to do. Patient states that he is now trying to gal[place] back to do things to help take care of himself. He has the pain that he rates a 2?7/10 depending on what he is doing. If he is sitting it is a 2/10 but if he is up and standing it is a 7/10. He is on therapy in the past that has not helped. He has done epidural steroid injections in the past. Some helped and some did not. He has taken [id number]-[id number] medications again with some improvement not enough. He wonders what other options he has now that he is back to trying to get his symptoms better under control. Health Status Allergies: Allergic Reactions (Selected) Severity Not Documented HydrALAZINE- Palpatations. Statins- Muscle ache., Allergies (2) Active Severity Reaction statins muscle ache hydrALAZINE palpatations Current medications: (Selected) Prescriptions Prescribed Lyrica 25 mg Cap: 1-2 cap(s), Oral, BID, # 120 tab(s), Refills(s) 0, Pharmacy: [facility]/pharmacy #[id number], 183, cm, 05/18/24 13:21:00 EDT, Height/Length Dosing, 107, kg, 05/18/24 13:21:00 EDT, Weight Dosing baclofen 5 mg oral tablet: 5 mg = 1 tab(s), Oral, TID, PRN Spasm, # 30 tab(s), Refills(s) 0, Pharmacy: [facility]/pharmacy #[id number], 183, cm, 02/14/24 13:46:00 EDT, Height/Length Dosing, 110.3, kg, 02/14/24 13:46:00 EDT, Weight Dosing gabapentin 300 mg Cap: 300 mg = 1 cap(s), Oral, Once a day (at bedtime), # 30 cap(s), Refills(s) 1, Pharmacy: [facility]/pharmacy #[id number], 183, cm, 12/16/23 10:37:00 EST, Height/Length Dosing, 102.3, kg, 12/16/23 10:37:00 EST, Weight Dosing Documented Medications Documented Alpha Lipoic Acid 600 mg oral capsule: 600 mg = 1 cap(s), Oral, Daily, Refills(s) 0 Antibiotic: Antibiotic Cialis 5 mg oral tablet: 5 mg = 1 tab(s), Oral, Daily, Refills(s) 0 Humulin 70/30: 25-10 units, BIDAC, Refill(s) 0 Misc Medication: CBD 250 Topical Cream, as needed Misc Medication: CBD Gummies Norvasc: 5 mg, Oral, Daily, Refills(s) 0 [...] 0 lisinopril: 10 mg, Daily, Refills(s) 0 loratadine 10 mg oral capsule: 10 mg = 1 cap(s), Oral, Daily, # 10 cap(s), Refills(s) 0 testosterone 2% transdermal cream: See Instructions, apply topically daily, Refills(s) 0 Problem list: All Problems History of heart attack / SNOMED CT 3975377918 / Confirmed Acute angina / SNOMED CT 953789879 / Confirmed Irregular heart beat / SNOMED CT 493653866 / Confirmed HTN (hypertension) / SNOMED CT 1068754525 / Confirmed High cholesterol / SNOMED CT 73634696 / Confirmed H/O heart bypass surgery / SNOMED CT 628549558 / Confirmed Apnea, sleep / SNOMED CT 539449581 / Confirmed CPAP (continuous positive airway pressure) dependence / SNOMED CT 1996562110 / Confirmed Enlarged prostate / SNOMED CT 009741178 / Confirmed Chronic kidney disease (CKD) / SNOMED CT 3006888693 / Confirmed Diabetes / SNOMED CT 975970486 / Confirmed Carpal tunnel syndrome / SNOMED CT 74973702 / Confirmed Anemia / SNOMED CT 601451180 / Confirmed Arthritis, rheumatoid / SNOMED CT 466965489 / Confirmed Obesity / ICD-9-CM 278.00 / Possible Obesity / SNOMED CT [id number] / Possible Objective Vital Signs 08/03/2024 14:37 EDT Peripheral Pulse Rate 62 bpm Respiratory Rate 16 br/min Systolic Blood Pressure 118 mmHg Diastolic Blood Pressure 65 mmHg Mean Arterial Pressure, Cuff 83 mmHg General: Alert and oriented, No acute distress. Eye: Normal conjunctiva. HENT: Normocephalic, Normal hearing. Cardiovascular: No edema. Musculoskeletal Normal range of motion. Normal strength. 5/5 lower extremity strength other than right hip flexion, ADF and EHL 4/5 Positive right straight leg raise Integumentary: Warm, Dry, [place]. Neurologic: Alert, Oriented. (more content not included)... [facility] Comment on above: Result Comment: Elec tronically Signed By: Jono AGOSTO, Margareth\.br\Date and Time Signed: 08/03/24 14:57 EDT 07-27-2024 Note ID Cardiology - [facility] Subjective Trae Pineda is a 74 y.o. year old male patient being seen for Hyperlipidemia and Hypertension Patient Active Problem List Diagnosis Type 2 diabetes mellitus without complication (CMS/HCC) Seizure (CMS/HCC) Chronic prostatitis Prostate cancer screening Kidney stone Hyperlipidemia Generalized ischemic myocardial dysfunction Generalized anxiety disorder [place] Dyspnea Disorder of lipid metabolism Depressive disorder Chronic obstructive lung disease (CMS/HCC) Chronic anxiety Chest pain Benign essential hypertension Coronary arteriosclerosis in [place] artery Coronary arteriosclerosis of [place] coronary artery of transplanted heart Suprapubic discomfort Benign prostatic hyperplasia with lower urinary tract symptoms Erectile dysfunction Lung nodule Hypogonadism in male Sleep apnea Irregular heart rhythm History of open heart surgery History of myocardial infarction Enlarged prostate CPAP (continuous positive airway pressure) dependence Carpal tunnel syndrome Anemia CKD (chronic kidney disease) Spinal stenosis of lumbar region with neurogenic claudication Body mass index (BMI) 32.0-32.9, adult Carotid bruit Chronic bronchitis, mucopurulent (CMS/HCC) GERD (gastroesophageal reflux disease) Lumbar spondylosis Nicotine dependence, cigarettes, in remission Other obesity due to excess calories Type 2 diabetes mellitus with hyperglycemia ([facility]) Lumbar stenosis with neurogenic claudication Type 2 diabetes mellitus with diabetic polyneuropathy ([facility]) Dysuria Cystitis cystica Incomplete bladder emptying Urge urinary incontinence HPI Patient is here today for follow-up visit. He reports dizziness spells while he is up and walking and usually it goes away with laying down, he reports that during those episodes his diastolic blood pressure is low in the 50, he does not recall his systolic blood pressure during those episodes. However outside of those episodes his blood pressure is good in the 130s to 140s. Also he complains of worsening shortness of breath with activities. He states that his physical activity is limited due to back stenosis. He continues to be active he continues to cut the grass using a riding mower. He denies chest discomfort at rest or with exertion. Denies orthopnea or paroxysmal nocturnal dyspnea next line he reports thumping in the heart when he climbs stairs. He reports that he drinks a lot of water and diluted fruit juice, he drinks only 1 cup of coffee a day. ROS All systems were reviewed and they were negative except for the positive findings noted above in the history Past Medical History: Diagnosis Date Anxiety BPH (benign prostatic hyperplasia) WITH OUTFLOW OBSTRUCTION Chronic bacterial prostatitis COPD (chronic obstructive pulmonary disease) ([facility]) Coronary artery disease, non-occlusive Depression Diabetes mellitus ([facility]) Erectile dysfunction Hyperlipemia Hypertension Hypogonadism in male Kidney stone Sleep apnea CPAP DEPENDENT Past Surgical History: Procedure Laterality Date APPENDECTOMY CARDIAC CATHETERIZATION CARPAL TUNNEL RELEASE CORONARY ARTERY BYPASS GRAFT CYSTOSCOPY No family history on file. Social History Tobacco Use Smoking status: Former Types: Cigarettes Quit date: 1982 Years since quittin.7 Passive exposure: Never Smokeless tobacco: Never Vaping Use Vaping Use: Never used Substance Use Topics Alcohol use: Never Drug use: Never Allergies Allergies Allergen Reactions Qmlpycd-Ovo-Pnl Reductase Inhibitors Other Hydralazine Palpitations Other reaction(s): chest pain Medications Current Outpatient Medications: amLODIPine (Norvasc) 10 mg tablet, Take 1 tablet (10 mg) by mouth in the morning. (Patient taking differently: Take 20 mg by mouth in the morning.), Disp: 90 tablet, Rfl: 3 ascorbic acid (Vitamin C) 500 mg tablet, Take 1 tablet by mouth in the morning., Disp: , Rfl: aspirin 81 mg EC tablet, Take 1 tablet every day by oral route., Disp: , Rfl: calcium carbonate 600 mg calcium (1,500 mg) tablet, Take 600 mg by mouth., Disp: , Rfl: evolocumab (Repatha Syringe) 140 mg/mL syringe, INJECT 1 ML SUBCUTANEOUSLY EVERY 2 WEEKS, Disp: 6 mL, Rfl: 3 ezetimibe (Zetia) 10 mg tablet, Take 1 tablet (10 mg) by mouth in the morning., Disp: 90 tablet, Rfl: 3 lisinopril 10 mg tablet, Take 1 tablet every day by oral route., Disp: , Rfl: pregabalin (Lyrica) 25 mg capsule, TAKE 1 - 2 CAPSULES BY MOUTH TWICE A DAY, Disp: , Rfl: ranolazine (Ranexa) 500 mg 12 hr tablet, Take 1 tablet by mouth in the morning and at bedtime., Disp: , Rfl: tadalafil (Cialis) 5 mg tablet, TAKE 1 TABLET BY MOUTH EVERY DAY IN THE MORNING, Disp: 30 tablet, Rfl: 11 baclofen (Lioresal) 5 mg tablet, Take 1 tablet by mouth if needed in the morning, at noon, and at bedtime., Disp: , Rfl: gabapentin (N (more content not included)... [facility] 05-19-2024 Note ------ Attestation signed by Diony Ariza MD at [...] larger. -Postvoid residual today was 228 cc ------ Urology Clinic H&P Dr. Diony Ariza MD [...] with frequency AUA symptom score is 15 dzzgmhd-od-cxdq is 4 Incomplete bladder emptying After urinating, [...] with frequency AUA symptom score is 15 bhzvmfs-cl-ghmp is 4 Incomplete bladder emptying After urinating, patient reports that he often feels as if he is not emptying completely. Hypogonadism Testosterone levels 518 on 03/04/24 444 on 11/26/23 374 on 08/30/23 Patient does report a history of chronic back pain (more content not included)... [facility] 05-18-2024 Evaluation + Plan note Extrac priscilla [...] PM Scheduled Provider:Margareth De La Cruz PA-C Location[facility] Appointment Type:Pain Management - Follow Up (FT) [facility]07-01-2024 NoteConsultation Note Patient: TRAE PINEDA Age: 74 [...] BID, # 120 tab(s), Refills(s) 0, Pharmacy: [facility]/pharmacy #[id number], 183, cm, 05/18/24 13:21:00 EDT, Height/Length Dosing, 107, kg, 05/18/24 13:21:00 EDT, Weight Dosing baclofen 5 mg oral tablet: 5 mg = 1 tab(s), Oral, TID, PRN Spasm, # 30 tab(s), Refills(s) 0, Pharmacy: [facility]/pharmacy #[id number], 183, cm, 02/14/24 13:46:00 EDT, Height/Length Dosing, 110.3, kg, 02/14/24 13:46:00 EDT, Weight Dosing gabapentin 300 mg Cap: 300 mg = 1 cap(s), Oral, Once a day (at bedtime), # 30 cap(s), Refills(s) 1,Pharmacy: [facility]/pharmacy #[id number], 183, cm, 12/16/23 10:37:00 EST, Height/Length [...] History of heart attack / SNOMED CT 3977067853 / Confirmed Acute angina / SNOMED CT 550641626 / Confirmed Irregular heart beat / SNOMED CT 446701843 / Confirmed HTN (hypertension) / SNOMED CT 8333768433 / Confirmed High cholesterol / SNOMED CT 78169570 / Confirmed H/O heart bypass surgery / SNOMED CT 624043713 / Confirmed Apnea, sleep / SNOMED CT 675557357 / Confirmed CPAP (continuous positive airway pressure) dependence / SNOMED CT 8797429782 / Confirmed Enlarged prostate / SNOMED CT 170730475 / Confirmed Chronic kidney disease (CKD) / SNOMED CT 3431008192 / Confirmed Diabetes / SNOMED CT 160423622 / Confirmed Carpal tunnel syndrome / SNOMED CT 23203040 / Confirmed Anemia / SNOMED CT 202883915 / Confirmed Arthritis, rheumatoid / SNOMED CT 405635155 / Confirmed Obesity / ICD-9-CM 278.00 / Possible Obesity / SNOMED CT [id number] / Possible Objective Vital Signs 05/18/2024 13:07 [...] right straight leg raise Integumentary: Warm, Dry, [place]. Neurologic: Alert, Oriented. Psychiatric: Cooperative, Appropriate mood [...] activities affects his ed (more content not included)...[facility] Comment: Electronically Signed By: Jono AGOSTO, Margareth\.br\Date and Time Signed: 05/18/24 13:44 [id number] NoteDiagnosis: Benign prostatic hyperplasia with incomplete bladder [...] flow void Suggestive of outlet obstruction Incomplete voiding.[facility]06-24-2024 NoteSubjective Patient ID: Trae Pineda is a 74 y.o. male who presents for Follow-up (uds). [facility] 05/11/2024 Urodynamics Procedure Pt presents for office visit. Pt seen by Dr. Ariza for voiding dysfunction: Urge Urinary Incontinence, post-void dribbling. Pt here for UDS. Pt denies fever or chills. No hematuria. No flank pain. Positive for suprapubic pressure/spasm, and urethral burning sensation. (This has been baseline for quite some time) Pt given verbal instructions on UDS. Pt initial Uroflow attempted patient unable to void: Pre-procedure PVR 178 cc. Patient was cleansed and prepped in normal sterile fashion. 16 Fr Straight cath was inserted per urethra. 100mL of urine was drained. Procedure: Urodynamics (UDS) Procedure note: urodynamics 74 year old male presents for UDS. Pre-op : Urge Urinary Incontinence, post-void dribbling Post-op Dx: Urge Urinary Incontinence, post-void dribbling Attending: Measurement Advisor: Charity Procedure: UroFLow/CMG/EMG/PVR Anesthesia: None Indications: Urge Urinary Incontinence, post-void dribbling Procedure: After informed consent was obtained the patient was placed on the stretcher. His external genitalia was prepped and draped in normal, sterile fashion. A pressure/flow catheter was placed in the bladder via the urethral. A pressure catheter was placed in the rectum for abdominal pressure monitoring. EMG patches were applied. Normal saline was instilled at 30-50 mL/min. There was first sensation at 361 cc. No leak with cough multiple times. Pt first desire to void at 645 cc Pves 86 Pabd 36 . Pt maximum capacity was not reached, UDS infusion stopped at 750mL. Patient did not reach maximum capacity. Patient with baseline suprapubic pressure/spasm and urethral burning. No additional discomfort reported by patient during the procedure. Patient did not leak . He could perform final uroflow and recorded: Voided volume 492 cc Complications: None. Post void retention. Condition: stable Pressure Caths removed intact. Patient was able to try to empty again in restroom. Post procedure bladder scan 125 mL. Patient declined to have further straight cath. Pt instructed on post cath/UDS . Adequate hydration. Plan of Care: follow up apt with Dr. Ariza for further management and UDS results. . Review of Systems Negative other than pertinent positives as outlined in the above HPI Objective There were no vitals taken for this visit. Physical Exam Physical Exam: Constitutional: Trae Pineda in NO acute distress Psychiatric: Normal affect, alert and oriented HEENT: No scleral icterus Pulmonary: Is not laboring to breathe Cardiovascular: No obvious cyanosis of the extremities Extremities: No significant lower extremity edema Neurologic: Grossly nonfocal Skin: No jaundice Assessment/Plan Diagnoses and all orders for this visit: Benign prostatic hyperplasia with incomplete bladder emptying Dysuria Urge urinary incontinence Assessment/Discussion/Plan Adequate hydration We reviewed expected s/sx post Urodynamics testing and when to seek care at ER Follow up with Dr. Ariza as scheduled No diagnosis found. No orders of the defined types were placed in this encounter. No results found for this or any previous visit (from the past 36 hour(s)). No follow-ups on file. Morenita Larsen, ANGIE Urology/Renal Transplant [facility] 03-27-2024 Evaluation + Plan noteExtracted from: Title:Pain Managment [...] PM Scheduled Provider:Margareth De La Cruz PA-C Location:[facility] Appointment Type:Pain Management - Follow Up (FT) [facility]04-30-2024 NoteUrology Clinic H&P Dr. Diony Ariza MD [...] with frequency AUA symptom score is 15 hpgrcln-hi-xrpq is 4 Incomplete bladder emptying After urinating, [...] came back benign with (more content not included)...[facility]03-29-2024 Evaluation + Plan noteExtracted from: Title:Pain Managment [...] Scheduled Provider:Margareth De La Cruz PA-C Location:.[facility] Appointment Type:Pain Management - Follow Up (FT) [facility]2024 NoteUT Cardiology - [facility] Subjective Trae Pineda is a 73 y.o. year old male patient being seen for 6 mo follow up CAD, hypertension, hyperlipidemia, and carotid artery stenosis. Had carotid US at [facility] a few weeks ago. Last lipid [...] pain Benign essential hypertension Coronary arteriosclerosis in [place] artery Coronary arteriosclerosis of [place] coronary artery of transplanted heart Suprapubic discomfort [...] CAD s/p bypass surgery with cath in 2015: 1. Patent 2/2 bypass grafts (left internal [...] swelling. His physical activ (more content not included)...[facility]02-28-2024 [id number] NoteDiagnosis: M54.16, lumbar radiculopathy Procedure: L5/S1 [...] the epidural space was confirmed using the wbys-wt-hxhndgczsu technique and 2 cc of air. Injection [...] procedure, and agrees to continue currently prescribed/recommended therapies.[facility] Comment on above:Result Comment: Electronically Signed By: John Cannon DO\.br\Date and Time Signed: 01/15/24 14:23 [id number] Evaluation + Plan note Extracted from: Title:L5/S1 [...] the epidural space was confirmed using the yejj-xv-bnoioefrsr technique and 2 cc of air. Injection [...] Scheduled Provider:Margareth De La Cruz PA-C Location:.[facility] Appointment Type:Pain Management - Follow Up (FT) [facility]01-29-2024 Evaluation + Plan noteExtracted from: Title:Pain Managment [...] will follow-up as above-mentioned LEONOR score: 48% [facility]01-23-2024 NoteUrology Clinic H&P Dr. Diony Ariza MD [...] bacterial prostatitis COPD (chronic obstructive pulmonary disease) ([facility]) Coronary artery disease, non-occlusive Depression Diabetes mellitus ([facility]) Erectile dysfunction Hyperlipemia Hypertension Hypogonadism in male Kidney stone Sleep apnea CPAP DEPENDENT Past Surgical History: Past Surgical History: Procedure Laterality (more content not included)...[facility]01-02-2024 Evaluation note* Encounter Date Diagnosis Assessment Notes Treatment Notes Treatment Clinical Notes Nov, Pulmonary nodule (ICD-10 - R91.1) CT: RML 4mm nodule - 02/2022, CT: RML 7mm nodule - 02/2023 CT: stable - 08/2023Nov, Right carotid bruit (ICD-10 - R09.89) Carotid US: 50-69% stenosis - 2019, Carotid US: < 50% ICA w/ 75% right carotid bulb - 08/2021 [employer] Other 12-28-2023 Evaluation note* Encounter Date Diagnosis Assessment Notes Treatment Notes Treatment Clinical Notes Oct, 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 (ICD-10 - E11.3291) [employer] Other 12-26-2023 Evaluation note* Encounter Date Diagnosis [...] use, the patient reduces the risk for NC, CVA, HTN, cardiac dysrhythmias and sudden cardiac [...] index [BMI] 32.0-32.9, adult (ICD-10 - Z68.32) [employer] Other 12-22-2023 Evaluation + Plan noteExtracted from: Title:Pain Managment [...] Scheduled Provider:Margareth De La Cruz PA-C Location:.[facility] Appointment Type:Pain Management - Follow Up (FT) [facility]12-21-2023 NotePrior auth obtained for [facility]- Paulina [id number] - [place] APPROVED 11/07/2023. STATUS APPROVED. COVERAGE START DATE 10/08/2023 END DATE 11/06/2024.[facility]12-11-2023 NotePatient: Trae Pineda Procedure Summary Date: 10/28/23 Room / Location: [facility] OPERATING ROOM 07 / [facility] Operating Room Anesthesia Start: 735 Anesthesia Stop: 0814 Procedure: CYSTOURETHROSCOPY, WITH RETROGRADE PYELOGRAM (Bilateral: Ureter) [...] PACU per anesthesia protocol. No notable events documented.[facility]12-11-2023 Note Patient: Trae Pineda Procedure Summary Date: 10/28/23 Room / Location: [facility] OPERATING ROOM 07 / [facility] Operating Room Anesthesia Start: 735 Anesthesia Stop: Procedure: CYSTOURETHROSCOPY, WITH RETROGRADE PYELOGRAM (Bilateral: Ureter) Diagnosis: Benign prostatic hyperplasia with lower urinary tract symptoms, symptom details unspecified (Benign prostatic hyperplasia with lower urinary tract symptoms, symptom details unspecified [N40.1]) Surgeons: Doiny Ariza MD Responsible Provider: Darcy Davila MD Anesthesia Type: MAC ASA Status: 3 Anesthesia Post Transport Note Transport to: PACU O2 Route: room air Patient Monitor: direct observation Transport: uneventful Patient condition is: [facility]Un[facility] Patient: Trae E Edwin Procedure Information Date/Time: 12/11/23 0730 Procedure: CYSTOURETHROSCOPY, WITH RETROGRADE PYELOGRAM (Bilateral) - C-ARM Location: [facility] OPERATING ROOM 07 / [facility] Operating Room Surgeons: Diony Ariza MD Relevant Problems Cardio tolerates >4 METs without chest pain, SOB (+) Benign essential hypertension (+) Coronary arteriosclerosis in [place] artery (+) Hypertensive disorder Endo (+) Type [...] discussed with attending and resident. Additional Equipment RequestsUC Health12-11-2023 Note History and Physical Patient: Trae Pineda [...] bacterial prostatitis COPD (chronic obstructive pulmonary disease) ([facility]) Coronary artery disease, non-occlusive Depression Diabetes mellitus ([facility]) Erectile dysfunction Hyperlipemia Hypertension Hypogonadism in male [...] THE MORNING 10/01/23 Moises Aguirre NP Allergies: Ikjumye-evg-pir reductase inhibitors and Hydralazine Social History: Social [...] Hypogonadism Plan: OR tod (more content not included)...[facility] 09-06-2023 Evaluation + Plan noteExtracted from: Title:Pain [...] AM Scheduled Provider:Margareth De La Cruz PA-C Location:[facility] Appointment Type:Pain Management - Follow Up (FT) [facility]10-18-2023 Evaluation note* Encounter Date Diagnosis Assessment Notes Treatment Notes Treatment Clinical Notes Aug, Pulmonary nodule (ICD-10 - R91.1) CT: RML 4mm nodule - 02/2022, CT: RML 7mm nodule - 02/2023 CT: stable - 08/2023 [employer] Other [id number] NoteUrology Clinic H&P Dr. Diony Ariza MD [...] today as he got it done in [place] but it was a send out lab. [...] Date Anxiety COPD (chronic obstructive pulmonary disease) (CMS/HCC) Coronary artery disease, non-occlusive Depression Diabetes mellitus (CMS/HCC) Hyperlipemia Hypertension Past [...] TAKE 1 TAB (more content not included)... [facility]10-04-2023 Evaluation note* Encounter Date Diagnosis Assessment Notes Treatment Notes Treatment Clinical Notes Aug, Pulmonary nodule (ICD-10 - R91.1) [employer] Other 09-19-2023 Note [id number]:127[facility] 07-02-2023 Evaluation + Plan noteExtracted from: [...] clinic sooner if necessary. LEONOR score: 44% [facility]05-02-2023 Evaluation note* Encounter Date Diagnosis Assessment Notes Treatment Notes Treatment Clinical Notes March, COVID-19 (ICD-10 - U07.1) Instructed to use Robitussin or Mucinex for cough, saline or Flonase NS for congestion, Tylenol for pain and fever. March, Chronic bronchitis, mucopurulent (ICD-10 - J41.1) Mucinex DM as needed. Push fluids [employer] Other 04-20-2023 Evaluation note* Encounter Date Diagnosis Assessment Notes Treatment Notes Treatment Clinical Notes Feb, Pulmonary nodule (ICD-10 - R91.1) CT: RML 4mm nodule - 02/2022 CT: RML 7mm nodule - 02/2023 [employer] Other 04-11-2023 Evaluation note* Encounter Date Diagnosis Assessment Notes Treatment Notes Treatment Clinical Notes Feb, Pulmonary nodule (ICD-10 - R91.1) [employer] Other 02-24-2023 Evaluation + Plan noteExtracted from: [...] require a repeat injection. 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 (ICD-10 - Z79.4) [...] 02/2022 Serial LDCT for lung cancer detection [employer] Other Evaluation + Plan note No data available for this section [facility] Future Appointments Appointment Date:01/11/2023 01:45:00 PM Scheduled Provider:Margareth De La Cruz PA-C Location:[facility] [place] Appointment Type:Pain Management - Follow Up ([facility] Future Appointments Appointment Date:09/06/2023 11:00:00 AM Scheduled Provider:Margareth De La Cruz PA-C Location:[facility] [place] Appointment Type:Pain Management - Follow Up (FT) [facility] [place] Other History general Narrative - Reported* Type [...] gross Medical History 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, unspecified chrome polisher nicity Medical History Arteriosclerosis of abdominal ao [...] Triple bypass Hospitalization History see sx history [employer] Other Hisfwdf general Narrative - Reported* Type Description Date [...] gross Medical History 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, unspecified chrome polisher nicity Medical History Arteriosclerosis of abdominal ao [...] Triple bypass Hospitalization History see sx history [employer] Other Hospital Discharge instructions No data available for this section [facility] No data available for this section [facility] Summary Purpose Family History No Family History [...] section and content) DATE CREATED AUTHOR 07/24/2022 [facility] DATE CREATED AUTHOR AUTHOR'S ORGANIZ ATION 03/11/2023 [facility] DATE CREATED AUTHOR AUTHOR'S ORGANIZ ATION 08/05/2024 [facility] DATE CREATED AUTHOR AUTHOR'S ORGANIZ ATION 08/17/2024 [facility] Patient Care team informatio n (unrecognized section and content) Personnel Name: CRISTOBAL KEARNS DO Address: Address: [address] [place] [address] Personnel Name: CRISTOBAL KEARNS DO Address: Address: [address] [place] [address] Personnel Name: CRISTOBAL KEARNS DO Address: Address: [address] [place], [place] [address], [place] [address] [place] Personnel Name: CRISTOBAL KEARNS DO Address: Address: [address] [facility], [place] [address]- [place] Personnel Name: CRISTOBAL KEARNS DO Address: Address: [address] [facility], [place] [address]- [place] Personnel Name: CRISTOBAL KEARNS DO Address: Address: [address] [facility], [place] [address]- [place] Personnel Name: CRISTOBAL KEARNS DO Address: Address: [address] [facility], [place] [address]- [place] Personnel Name: CRISTOBAL KEARNS DO Address: Address: [address] [facility], [place] [address]- [place] Personnel Name: CRISTOBAL KEARNS DO Address: Address: [address] [facility], [place] [address]- [place] Personnel Name: CRISTOBAL KEARNS DO Address: Address: [address] [facility], [place] [address]- [place] Personnel Name: CRISTOBAL KEARNS DO Address: Address: [address] [facility], [place] [address]- [place] Personnel Name: CRISTOBAL KEARNS DO Address: Address: [address] [facility], [place] [address]- [place] Personnel Name: CRISTOBAL KEARNS DO Address: Address: [address] [facility], [place] [address]- REASON FOR VISIT (unrecogniz ed section and content) 4 MONTH FOLLOW UPBS vardamanC T scanNo InformationCT resultscovid - paxlovidLab Resultsrepeat [...] BE BASED ON THE PRIMARY CLINICAL RECORDS. [facility] [employer] [facility]. provides no warranty or guarantee of the accuracy or completeness of information in this document.
== END 2024-08-19 08:06 | disposition home or self-care (01) ==
LOC: CARD 08:05
PROVIDERS: PCP Internal Medicine; Visit Provider Internal Medicine Cardiovascular Disease
DX: R06.09 Other forms of dyspnea (principal); I25.118 Atherosclerotic heart disease of native coronary artery with other forms of angina pectoris
CPT/HCPCS: 93306

== ENCOUNTER 2024-08-20 07:54 | Outpatient (OUT) | payer MEDICARE, SELFPAY ==
--- NOTE | 2024-08-20 | PCN_ITS ---
CARDIAC STRESS TEST Requesting Physician: Chi Moss M.D. Procedure Date: 08/20/2024 LEXISCAN EKG STRESS TEST INDICATION FOR THE TEST: Dyspnea on exertion, coronary artery disease. Resting heart rate 55 beats per minute, resting blood pressure 136/76 mm/Hg. Max heart rate 72 beats per minute, representing 50% of age predicted maximum heart rate; peak blood pressure 136/76 mm/Hg. Lexiscan 0.4 mg IV was injected and the patient was monitored for a few minutes. The patient did not experience any symptoms. Resting EKG showed sinus bradycardia with first degree AV block, heart rate 53 beats per minute; otherwise, no significant T or ST changes. EKG throughout the test did not show significant T or ST changes. Few isolated PVCs were noted. CONCLUSION/COMMENT: 1. Negative Lexiscan EKG stress test for ischemia. 2. The myocardial nuclear perfusion images results will be reported separately. [facility]
--- OUTSIDE RECORDS SUMMARY | 2024-08-20 07:57 | XMS_ITS | CCD ---
Author Organization [facility] Care Team Providers Care Data Compiler Name Role Phone LUPIS DENNIS Admitting Unavailable LUPIS DENNIS Attending Unavailable SOM, CRISTOBAL Referring Unavailable BALL, CRISTOBAL Primary Care Unavailable SOM, CRISTOBAL Primary Care Physician Ball, Cristobal Unavailable [...] Referring Unavailable SINDHWANI, DIONY Attending Unavailable SINDHWANI, DIONY Attending Unavailable MOUKARBELMOI Attending Unavailable SINDHWANI, DIONY Attending Unavailable ENRRIQUE OAKLEY Attending Unavailable Allergies Allergy Classification Reported Allergen(s) Allergy Type Date of Onset Reaction(s) Facility (3 sources) black walnut pollen extract; Translations: [MICHWZP-LOE-IJR REDUCTASE INHIBITORS] Drug Allergy 01-27-2013 [facility] Repository (14 sources) HMG-CoA reductase inhibitor; Translations: [statins] Drug allergy muscle ache [facility] (15 sources) hydrALAZINE; Translations: [hydralazine] Drug Allergy 07-25-[address] [facility] Medications Current Medications Medication Drug Class(es) [...] Spasm, # 30 tab(s), Refills(s) 0, Pharmacy: [facility]/pharmacy #[id number], 183, cm, 02/14/24 13:46:00 EDT, Height/Length [...] 0 Start Date: 05/18/20 Status: Ordered [facility] - (5 sources) [facility] - as directed Orally Active cyclobenzaprine hydrochloride 10 mg oral tablet (4 sources) Muscle Relaxant Start: 11-08-2022 take 1 tablet by mouth three times daily as needed for muscle spasms cyclobenzaprine 10 mg Tab 10 mg = 1 tab(s), Oral, TID, PRN for spasm, # 30 tab(s), Refills(s) 0, Pharmacy: [facility]/pharmacy #[id number], 182.9, cm, 11/08/22 15:17:00 EST, Height/Length [...] 05/18/20 Status: Ordered FreeStyle [facility] [employer] [place] - (15 sources) FreeStyle [facility] [place] - as directed Active FreeStyle Singh 14 [...] # 60 cap(s), Refills(s) 0, [id number] 183, cm, 02/14/24 13:46:00 EDT, Height/Length Dosing, 110.3, kg, 02/14/24 13:46:00 EDT, Weight Dosing Start Date: 02/14/24 Status: Ordered Start: 12-16-2023 take 1 capsule by [facility] once daily at bedtime gabapentin 300 mg Cap 300 mg = 1 cap(s), Oral, Once a day (at bedtime), # 30 cap(s), Refills(s) 1, Pharmacy: [facility]/pharmacy #[id number], 183, cm, 12/16/23 10:37:00 EST, Height/Length Dosing, 102.3, kg, 12/16/23 10:37:00 EST, Weight Dosing Start Date: 12/16/23 Status: Ordered Start: 11-08-2022 take 1 capsule by [facility] at bedtime gabapentin 100 mg Cap 100 mg = 1 cap(s), Oral, Bedtime, # 30 cap(s), Refills(s) 0, Pharmacy: [facility]/pharmacy #[id number], 182.9, cm, 11/08/22 15:17:00 EST, Height/Length [...] BID, # 120 tab(s), Refills(s) 0, Pharmacy: [facility]/pharmacy #[id number], 183, cm, 05/18/24 13:21:00 EDT, Height/Length Dosing, 107, kg, 05/18/24 13:21:00 EDT, Weight Dosing Start Date: 05/18/24 Status: Ordered Start: 03-27-2024 take 1 capsule by [facility] twice daily pregabalin 25 mg Cap 25 mg = 1 cap(s), Oral, BID, # 60 cap(s), Refills(s) 0, Pharmacy: [facility]/pharmacy #[id number], 183, cm, 03/27/24 14:29:00 EDT, Height/Length [...] Onset: 01-20-2024 Episodic Other aftercare (2 sources) 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 (current) use of insulin; Translations: [FIELD REP CURRENT USE OF INSULIN] Onset: 11-27-2022 Episodic Other aftercare (1 source) Other technician terminal and repeater (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 therapy; Translations: [OTH FIELD REP CURRENT DRUG THERAPY] Onset: 11-27-2022 Episodic Other aftercare (1 source) detention (current) use of aspirin; Translations: [FIELD REP CURRENT USE OF ASPIRIN] Onset: 11-27-2022 Episodic [...] Range Facility Orders Onlyon 08-13-2024 Orders Only [id number] Trae Pineda 1950 M Date Provider Department Center 08/13/2024 KRISTEL SIMPSON [facility] Family History Problem Relation Age of Onset Prostate cancer Father Family Status - Relation Status Age at Father Normal [facility] Procedure Visiton 08-13-2024 Procedure Visit [id number] Trae Pineda 1950 M Date Provider Department Center 08/13/2024 DIONY GREENBERG [facility] Family History Problem Relation Age of Onset Prostate cancer Father Family Status - Relation Status Age at Father Level of Service:74843 [place] OFFICE/OUTPT VISIT,PROCEDURE ONLY (25) Reason for Visit and Comments: Follow-up [085219] - Trus [facility] Orders Onlyon 07-29-2024 Orders Only [id number] Igor Pinedary E 1950 M Date Provider Department Center 07/29/2024 Hodan5-RACHNA SHEPARD [facility] No family history on file [facility] Office Visiton 07-27-2024 Follow-up visit [id number] EdwinTrae E 1950 M Date Provider Department Center 07/27/2024 07771-PBDNGVENRRIQUE OAKLEY [facility] No family history on file Level of Service:97088 [place] OFFICE/OUTPATIENT ESTABLISHED MOD MDM 30 MIN Reason for Visit and Comments: Hyperlipidemia [182] Hypertension [441386] - Pt is here for low blood pressure. [facility] Follow-Upon 05-19-2024 Follow-Up [id number] EdwinTrae E 1950 M Date Provider Department Center 05/19/2024 435-MAMTA ARIZAEET [facility] Second Fl No family history on file Level of Service:90824 [place] OFFICE/OUTPATIENT ESTABLISHED MOD MDM 30 MIN [facility] Refillon 05-14-2024 Refill [id number] Igor Pinedary E 1950 M Date Provider Department Center 05/14/2024 Danni-MOISES AGUIRRE [facility] Second Fl No family history on file Reason for Visit and Comments: Med Refill [[id number]] [facility] Procedure Visiton 05-11-2024 Procedure Visit [id number] Igor Pinedary E 1950 M Date Provider Department Center 05/11/2024 435-DIONY ARIZA [facility] No family history on file Level of Service:54798 [place] OFFICE/OUTPT VISIT,PROCEDURE ONLY (26) Reason for Visit and Comments: Follow-up [683269] - Uds documentation [facility] Procedure Visit [id number] Edwin,Trae E 1950 M Date Provider Department Center 05/11/2024 [id number]-MHDDTUWMORENITA LARSEN [facility] No family history on file Level of Service:41607 NH OFFICE/OUTPATIENT ESTABLISHED LOW MDM 20 MIN Reason for Visit and Comments: Follow-up [590803] - uds Normal [facility] Consent for Treatmenton 03-18 Consent for Treatment [id number]#1 .00TIFF Normal [facility] Consultation Noteon 03-27-20 Consultation Note Patient: KATERINA [...] # 30 tab(s), Refills(s) 0, [id number] 183, cm, 02/14/24 13:46:00 EDT, Height/Length Dosing, 110.3, kg, 02/14/24 13:46:00 EDT, Weight Dosing gabapentin 300 mg Cap: 300 mg = 1 cap(s), Oral, Once a day (at bedtime), # 30 cap(s), Refills(s) 1, [id number], 183, cm, 12/16/23 10:37:00 EST, Height/Length Dosing, 102.3, kg, 12/16/23 10:37:00 EST, Weight Dosing pregabalin 25 mg Cap: 25 mg = 1 cap(s), Oral, BID, # 60 cap(s), Refills(s) 0, [id number], 183, cm, 03/27/24 14:29:00 EDT, [...] History of heart attack / SNOMED CT 8308830994 / Confirmed Acute angina / SNOMED CT 141637313 / Confirmed Irregular heart beat / SNOMED CT 674452383 / Confirmed HTN (hypertension) / SNOMED CT 9027189773 / Confirmed High cholesterol / SNOMED CT 74063158 / Confirmed H/O heart bypass surgery / SNOMED CT 798772997 / Confirmed Apnea, sleep / SNOMED CT 534039630 / Confirmed CPAP (continuous positive airway pressure) dependence / SNOMED CT 3474830897 / Confirmed Enlarged prostate / SNOMED CT 044711201 / Confirmed Chronic kidney disease (CKD) / SNOMED CT 3583220407 / Confirmed Diabetes / SNOMED CT 310947945 / Confirmed Carpal tunnel syndrome / SNOMED CT 54532262 / Confirmed Anemia / SNOMED CT 861485990 / Confirmed Arthritis, rheumatoid / SNOMED CT 945318130 / Confirmed Obesity / ICD-9-CM 278.00 / Possible Obesity / SNOMED CT D7454F28-0257-3O51-O9 [id number]-[id number] / Possible Objective Vital Signs 03/27/2024 14:19 [...] right straight leg raise Integumentary: Warm, Dry, Rule. Neurologic: Alert, Oriented. Psychiatric: Cooperative, Appropriate mood [...] did not (more content not included)... Normal [facility] Comment on above: Result Comment: Elec tronically Signed By: Jono AGOSTO, Margareth\.br\Date and Time Signed: 03/27/24 14:47 EDT Office/Clinic Note-Physician on 03-27-2024 Office/Clinic Note-Physician [id number]# 1.00TIFF Normal [facility] Outside Records Officeon Outside Records Office [id number]# 1.00TIFF Normal [facility] Patient Correspondenceon Patient Correspondence [id number]# 1.00TIFF Normal [facility] Patient History Officeon Patient History Office [id number]# 1.00TIFF Normal [facility] Follow-Upon 03-17-2024 Follow-Up [id number] Trae Pineda Lorenzo 1950 M [facility] Provider Department Center 03/17/[address] [place] [address] [facility] Second Fl No family history on file Level of Service:73698 [place] OFFICE/OUTPATIENT ESTABLISHED MOD MDM 30 MIN Reason for Visit and Comments: Benign Prostatic Hypertrophy [343059740] Hypogonadism [185] - 3 mo follow-up with labs Normal [facility] Orders Onlyon 03-12-2024 Orders Only [id number] Trae Pineda 1950 M Date Provider Department Center 03/12/[address] [place] [address] [facility] Second Fl No family history on file Normal [facility] Consent for Treatmenton 01-17 Consent for Treatment [id number]# 1.00TIFF Normal [facility] Consultation Noteon 02-14-20 Consultation Note Patient: KATERINA [...] BID, # 60 cap(s), Refills(s) 0, Pharmacy: [facility]/pharmacy #[id number], 183, cm, 02/14/24 13:46:00 EDT, Height/Length Dosing, 110.3, kg, 02/14/24 13:46:00 EDT, Weight Dosing gabapentin 300 mg Cap: 300 mg = 1 cap(s), Oral, Once a day (at bedtime), # 30 cap(s), Refills(s) 1, Pharmacy: [facility]/pharmacy #[id number], 183, cm, 12/16/23 10:37:00 EST, Height/Length [...] History of heart attack / SNOMED CT 1018346686 / Confirmed Acute angina / SNOMED CT 007808475 / Confirmed Irregular heart beat / SNOMED CT 184145682 / Confirmed HTN (hypertension) / SNOMED CT 7485821637 / Confirmed High cholesterol / SNOMED CT 17071235 / Confirmed H/O heart bypass surgery / SNOMED CT 047300461 / Confirmed Apnea, sleep / SNOMED CT 931273355 / Confirmed CPAP (continuous positive airway pressure) dependence / SNOMED CT 0872046958 / Confirmed Enlarged prostate / SNOMED CT 668687597 / Confirmed Chronic kidney disease (CKD) / SNOMED CT 5127135452 / Confirmed Diabetes / SNOMED CT 945611806 / Confirmed Carpal tunnel syndrome / SNOMED CT 83108952 / Confirmed Anemia / SNOMED CT 752180633 / Confirmed Arthritis, rheumatoid / SNOMED CT 691905658 / Confirmed Obesity / ICD-9-CM 278.00 / Possible Obesity / SNOMED CT L9748Y23-6005-8I90-S2 5E-[id number] / Possible Objective Vital Signs 02/14/2024 13:32 [...] pain with facet loading Integumentary: Warm, Dry, Rule. Neurologic: Alert, Oriented. Psychiatric: Cooperative, Appropriate mood [...] relief he (more content not included)... Normal [facility] Comment on above: Result Comment: Elec tronically Signed By: Jono AGOSTO, Margareth\.br\Date and Time Signed: 02/14/24 14:08 EDT Office/Clinic Note-Physician on 02-14-2024 Office/Clinic Note-Physician [id number]# 1.00TIFF Normal [facility] Patient Correspondenceon Patient Correspondence [id number]# 1.00TIFF [facility] Patient Correspondence [id number]# 1.00TIFF [facility] Patient History Officeon Patient History Office [id number]# 1.00TIFF [facility] Refillon 01-26-2024 Refill [id number] Trae Pineda 1950 M Date Provider Department Center 01/26/2024 124-MOISES AGUIRRE [facility] [place] No family history on file Reason for Visit and Comments: Med Refill [[id number]] Normal [facility] Office Visiton 01-20-2024 Follow-up visit [id number] Trae Pineda 1950 M Date Provider Department Center 01/20/2024 Risa-MOI MOSS [facility] No family history on file Level of Service:20232 [place] OFFICE/OUTPATIENT ESTABLISHED MOD MDM 30 MIN Normal [facility] Consent for Procedure/Surger yon 01-15-2024 Consent for Procedure/Surgery [id number] #1.00TIFF [facility] Consent for Treatmenton 12-20 Consent for Treatment [id number]#1 .00TIFF [facility] Discharge Instructionson Discharge Instructions [id number] #1.00TIFF [facility] IntraOperative Documentson 0 01-15-2024 IntraOperative Documents [id number] #1.00TIFF [facility] Main OR Intraoperative Recor don 01-15-2024 Main OR Intraoperative Record IntraOp Document Type FTPM Summary Primary Physician: John Cannon DO Finalized Date/Time: 01/15/24 14:25:24 Pt. Name: TRAE PINEDA Lorenzo MinayaB./Sex: 1950 Male Med Rec #: [id number] Physician: John Cannon DO Financial #: [id number] Pt. Type: P Room/Bed: / Admit/Disch: 01/15/24 [...] Lula Schuler Role Performed Surgeon - Primary Manufacturer Representative - Primary Scrub - Primary Time In 01/15/24 14:15:00 01/15/24 14:15:00 01/15/24 14:15:00 Time Out 01/15/24 14:24:00 01/15/24 14:24:00 01/15/24 14:24:00 Procedure LUMBAR EPIDURAL STEROID LUMBAR EPIDURAL STEROID LUMBAR EPIDURAL STEROID INJECTION(.) INJECTION(.) INJECTION(.) Comments Last Modified By: Deysi Csatro RN, RN, Madison A Pritchard RN, Madison A 01/15/24 14:23:16 01/15/24 14:23:16 01/15/24 14:23:16 Entry 4 Case Attendee Leanne Fitzgerald Role Performed Test Grader Time In 01/15/24 14:15:00 Time Out 01/15/24 [...] and tissue Entry 1 Skin Integrity Intact, Rule, Warm, and Skin Abnormality No Dry Outcomes [...] Last Modif (more content not included)... Normal [facility] Main OR Preoperative Recordo n 01-15-2024 Main OR Preoperative Record Holding Area Document Type FT Summary Primary Physician: John Cannon DO Finalized Date/Time: 01/15/24 13:38:25 Pt. Name: TRAE PINEDA /Sex: 1950 Male Med Rec #: [id number] Physician: John Cannon DO Financial #: [id number] Pt. Type: P Room/Bed: / Admit/Disch: 01/15/24 [...] By: Barb Schmidt RN 01/15/24 13:38 Normal [facility] Patient Correspondenceon Patient Correspondence [id number]# 1.00TIFF Normal [facility] Orders Onlyon 12-23-2023 Orders Only [id number] Trae Pienda 1950 M Date Provider Department Center 12/23/2023 124-MOISES AGUIRRE None No family history on file Normal [facility] Refillon 12-20-2023 Refill [id number] Trae Pineda 1950 M Date Provider Department Center 12/20/2023 Danni-MOISES AGUIRRE [facility] Second Fl No family history on file Reason for Visit and Comments: Med Refill [[id number]] Normal [facility] Office/Clinic Note-Physician on 12-19-2023 Office/Clinic Note-Physician [id number]#1. 00TIFF Normal [facility] Insurance Correspondence Off iceon 12-17-2023 Insurance Correspondence Office [id number]#1. 00TIFF [facility] Consent for Treatmenton 11-19 Consent for Treatment [id number]# 1.00TIFF [facility] Consultation Noteon 12-16-19 Consultation Note Patient: KATERINA [...] History of heart attack / SNOMED CT 0495522907 / Confirmed Acute angina / SNOMED CT 755262396 / Confirmed Irregular heart beat / SNOMED CT 837317082 / Confirmed HTN (hypertension) / SNOMED CT 2104845179 / Confirmed High cholesterol / SNOMED CT 04556115 / Confirmed H/O heart bypass surgery / SNOMED CT 135163518 / Confirmed Apnea, sleep / SNOMED CT 762185131 / Confirmed CPAP (continuous positive airway pressure) dependence / SNOMED CT 1794106155 / Confirmed Enlarged prostate / SNOMED CT 248591283 / Confirmed Chronic kidney disease (CKD) / SNOMED CT 2231687156 / Confirmed Diabetes / SNOMED CT 856795473 / Confirmed Carpal tunnel syndrome / SNOMED CT 97692908 / Confirmed Anemia / SNOMED CT 773410104 / Confirmed Arthritis, rheumatoid / SNOMED CT 370726285 / Confirmed Obesity / ICD-9-CM 278.00 / Possible Obesity / SNOMED CT M4594K18-3392-1C72-O3 5E-[id number] / Possible Objective Vital Signs 12/16/2023 10:23 [...] right straight leg raise Integumentary: Warm, Dry, Rule. Neurologic: Alert, Oriented. Psychiatric: Cooperative, Appropriate mood [...] if necessary (more content not included)... Normal [facility] Comment on above: Result Comment: Elec tronically Signed By: Margareth De La Cruz PA-C\.br\Date and Time Signed: 12/16/23 10:54 EST\.br\Electronically Co-Signed By: John Cannon DO.br\Date and Time Co-Signed: 12/19/23 11:37 EST Legal Correspondence Officeo n 12-16-2023 Legal Correspondence Office [id number]#1 .00TIFF Normal [facility] Office/Clinic Note-Nurseon 0 12-16-2023 Office/Clinic Note-Nurse [id number]# 1.00TIFF Normal [facility] Office/Clinic Note-Nurse [id number]#1 .00TIFF Normal [facility] Comment on above: Other Comment: triston earl Office/Clinic Note-Physician on 12-16-2023 Office/Clinic Note-Physician [id number]#1 .00TIFF Normal [facility] Patient Correspondenceon Patient Correspondence [id number]#1 .00TIFF Normal [facility] Patient Correspondence [id number]#1 .00TIFF Normal [facility] Patient Correspondence [id number]#1 .00TIFF Normal [facility] Patient Correspondence [id number]#1 .00TIFF Normal [facility] Patient History Officeon Patient History Office [id number]#1 .00TIFF Normal [facility] Radiology Outside Office Tentering Machine Off Bearer yon 12-16-2023 Radiology Outside Office Copy [id number]#1 .00TIFF Normal [facility] Radiology Outside Office Copy [id number]# 1.00TIFF Normal [facility] Follow-Upon 12-10-2023 Follow-Up [id number] Trae Pineda 1950 M Date Provider Department Center 12/10/2023 435-DIONY ARIZA [facility] Second Fl No family history on file Level of Service:36247 [place] OFFICE/OUTPATIENT ESTABLISHED MOD MDM 30 MIN Reason for Visit and Comments: Benign Prostatic Hypertrophy [993376727] Follow-up [810398] - Cysto follow-up with labs Normal [facility] URINALYSIS MICROSCOPIC WITH REFLEX CULTUREon 12-10-2023 CASTS IN URINE Present Abnormal None Seen [facility] Comment on above: Performed By: #### L [id number] #### [facility] (BEAKER) [address] [place] [address] CRYSTALS IN URINE Normal [facility] Comment on above: Performed By: #### L [id number] #### [facility] ([facility]AK[facility]) [address] [place] [address] HYALINE CASTS /LPF IN URINE SEDIMENT BY MICROSCOPY 8 /LPF High <1 [facility] Comment on above: Performed By: #### L [id number] #### [facility] ([facility]) [address] [place] [address] MUCUS (#/HPF) IN URINE SEDIMENT Occasional Normal None Seen, Occasional, Few [facility] Comment on above: Performed By: #### L [id number] #### [facility] ([facility]) [address] [place] [address] OTHER MICROSCOPIC ELEMENTS Normal [facility] Comment on above: Performed By: #### L [id number] #### [facility] ([facility]) [address] [place] [address] RBC (#/HPF) IN URINE SEDIMENT 0-2 Abnormal None Seen [facility] Comment on above: Performed By: #### L [id number] #### [facility] ([facility]) [address] [place] [address] SQUAMOUS EPITHELIAL CELLS (#/HPF) IN URINE SEDIMENT Occasional Normal None Seen, Occasional [facility] Comment on above: Performed By: #### L [id number] #### [facility] ([facility]) [address] [place] [address] WBC (LEUKOCYTE) (#/HPF) IN URINE SEDIMENT 0-2 Abnormal None Seen [facility] Comment on above: Performed By: #### L [id number] #### [facility] [address] [place] [address] URINALYSIS WITH REFLEX CULTU REon 12-10-2023 BILIRUBIN, TOTAL PRESENCE IN URINE Negative Normal Negative [facility] Comment on above: Performed By: #### L [id number] ####[facility] ([facility])[address] [place] [address] Clarity (U) Clear Normal Clear [facility] Comment on above: Performed By: #### L [id number] ####[facility] ([facility])[address] [place] [address] Color (U) Holly Abnormal Yellow [facility] Comment on above: Performed By: #### L [id number] ####[facility] ([facility])[address] [place] [address] Glucose (U) [Mass/Vol] Negative Normal Negative [facility] Comment on above: Performed By: #### L [id number] ####[facility] ([facility])[address] [place] [address] HEMOGLOBIN PRESENCE IN URINE Negative Normal Negative [facility] Comment on above: Performed By: #### L [id number] ####[facility] ([facility])[address] [place] [address] Ketones Ql (U) Negative Normal Negative [facility] Comment on above: Performed By: #### L [id number] ####[facility] ([facility])[address] [place] [address] LEUKOCYTE ESTERASE PRESENCE IN URINE BY TEST STRIP Negative Normal Negative [facility] Comment on above: Performed By: #### L [id number] ####[facility] ([facility] [place] [address] NITRITE PRESENCE IN URINE Negative Normal Negative [facility] Comment on above: Performed By: #### L [id number] ####[facility] ([facility])[address] [place] [address] pH (U) 5.0 [pH] Normal 5.0-8.0 [facility] Comment on above: Performed By: #### L [id number] ####[facility] ([facility])[address] [place] [address] Protein (U) [Mass/Vol] 30 mg/dL Abnormal Negative [facility] Comment on above: Performed By: #### L [id number] ####[facility] ([facility])[address] [place] [address] Specific gravity (U) [Rel density] 1.026 High 1.015-1.020 [facility] Comment on above: Performed By: #### L [id number] ####[facility] ([facility])[address] [place] [address] Orders Onlyon 12-09-2023 Orders Only [id number] Trae Pineda 1950 M Date Provider Department Center 12/09/2023 SHY ROMERO None No family history on file [facility] 36on 12-04-2023 36 Approving, but needs appt for additional refills. Normal [facility] Insurance Correspondence Off iceon 11-13-2023 Insurance Correspondence Office [id number]# 1.00TIFF [facility] Physician Orderon 11-13-2023 Physician Order [id number]# 1.00TIFF [facility] Consent for Treatmenton 10-19 Consent for Treatment [id number]# 1.00TIFF [facility] Consultation Noteon 11-08-20 Consultation Note Patient: KATERINA [...] History of heart attack / SNOMED CT 2068967314 / Confirmed Acute angina / SNOMED CT 296875081 / Confirmed Irregular heart beat / SNOMED CT 596365630 / Confirmed HTN (hypertension) / SNOMED CT 4418654029 / Confirmed High cholesterol / SNOMED CT 69989571 / Confirmed H/O heart bypass surgery / SNOMED CT 932797891 / Confirmed Apnea, sleep / SNOMED CT 933194488 / Confirmed CPAP (continuous positive airway pressure) dependence / SNOMED CT 8927766408 / Confirmed Enlarged prostate / SNOMED CT 563509190 / Confirmed Chronic kidney disease (CKD) / SNOMED CT 3400412618 / Confirmed Diabetes / SNOMED CT 175978104 / Confirmed Carpal tunnel syndrome / SNOMED CT 84199297 / Confirmed Anemia / SNOMED CT 612517261 / Confirmed Arthritis, rheumatoid / SNOMED CT 203369803 / Confirmed Obesity / ICD-9-CM 278.00 / Possible Obesity / SNOMED CT [id number]-M8 [id number] / Possible Objective Vital Signs 11/08/2023 10:58 [...] right straight leg raise Integumentary: Warm, Dry, Rule. Neurologic: Alert, Oriented. Psychiatric: Cooperative, Appropriate mood [...] agreeable. Follow-up after. LEONOR score: 36% Normal [facility] Comment on above: Result Comment: Elec tronically Signed By: Jono AGOSTO, Margareth\.br\Date and Time Signed: 11/08/23 11:19 EST Office/Clinic Note-Physician on 11-08-2023 Office/Clinic Note-Physician [id number]# 1.00TIFF Normal [facility] Patient Correspondenceon Patient Correspondence [id number]# 1.00TIFF Normal [facility] Patient Correspondence [id number]# 1.00TIFF Normal [facility] Patient History Officeon Patient History Office [id number]# 1.00TIFF Normal [facility] Refillon 11-02-2023 Refill [id number] Trae Pineda 1950 M Date Provider Department Center 11/02/2023 Danni-MOISES AGUIRRE [facility] URO Second Fl No family history on file Reason for Visit and Comments: Med Refill [[id number]] Normal [facility] [place] ORon 10-28-2023 [place] IN [...] fluoroscopic equipment utilization. Electronically signed: Abhi Antonio. [facility] Comment on above: Order Comment: CYSTO RETROGRADE PYELOGRAM OPNOTEon 10-28-2023 OPNOTE - Attestation signed by Diony Ariza MD at 10/30/2023 12:59 PM I was present for the entire procedure. CYSTOURETHROSCOPY, WITH RETROGRADE PYELOGRAM (B) Operative Note Date: 10/28/2023 Location: [facility] OR Name: Trae Pineda, : 1950, [...] Priority Lab ID A Bladder washing Urine NON-MACHINE BRUSH MAKER CYTOLOGY - CELLULAR EXAM Diony Ariza MD 10/28/23801 B Urine, Catheterized Urine NON-MACHINE BRUSH MAKER CYTOLOGY - CELLULAR EXAM Diony Ariza MD 10/28/23 0802 Routine Description: BLADDER URINE FOR CULTURE Staff: Manufacturer Representative: Shena Calvillo RN; Dafne Carrillo RN Relief Manufacturer Representative: Kristian Cuevas RN Indications: Trae Pineda is [...] in outpatient urology clinic. Diony Ariza Normal [facility] Orders Onlyon 10-28-2023 Orders Only [id number] Trae Pineda 1950 M Date Provider Department Center 10/28/2023 Lauren-HUGO HUSTON [facility] URO Second Fl No family history on file Normal [facility] POCT GLUCOSE METER UNSOLICIT ED RESULTSon 10-28-2023 Glucose [Mass/Vol] 132 mg/dL High 70-105 [facility] Comment on above: Order Comment: Waive d Testing in the ED is performed under the ED CLIA certificate #[id number]. Result Comment: [facility] [place] Performed By: #### L [id number] ####[facility] [place] [address] URINE CULTURE, STERILE COLLE CTIONon 10-28-2023 Bacteria identified Cx Nom (U) No growth at 48 hours Normal [facility] Comment on above: Order Comment: Pre-o p diagnosis:Benign prostatic hyperplasia with lower urinary tract symptoms, symptom details unspecified [N40.1] Performed By: #### L [id number] ####[facility] [place] [address] GRAM STAIN RESULT Normal [facility] Comment on above: Order Comment: Pre-o p diagnosis:Benign prostatic hyperplasia with lower urinary tract symptoms, symptom details unspecified [N40.1] Result Comment: No p olymorphonuclear leukocytes seen No organisms seen Performed By: #### L [id number] ####[facility] [place] [address] [id number] 10-18-2023 [id number] HOLD CIALIS X 48 HRS STOP 10/26 MEDICATIONS TO TAKE DAY OF SURGERY WITH SIP OF WATER AMLODIPNE COREG INSULIN HUMULIN 70/30 IF YOU ARE GOING HOME AFTER YOUR SURGERY OR PROCEDURE, FOR YOUR SAFETY, YOUR SURGERY WILL BE CANCELLED IF BOTH OF THE FOLLOWING ARE NOT AVAILABLE: An adult city route driver over the age of 18, that [...] lenses. Do not wear perfume, make-up, nail egyptian, or lotions on the day of your [...] need to make any changes, please call [phone]. Notify your surgeon if you develop any illness such as a cold, cough, fever, sore throat or vomiting between now and your surgery. Thank you for entrusting us with your care. [facility] Surgical Services Team Normal [facility] Refillon 10-01-2023 Refill [id number] Trae Pineda 1950 M Date Provider Department Center 10/01/2023 MOISES SANON [facility] URO Second Fl No family history on file Reason for Visit and Comments: Med Refill [[id number]] Normal [facility] Consent for Treatmenton 08-19 Consent for Treatment [id number]# 1.00TIFF [facility] Consultation Noteon 09-06-20 Consultation Note [...] History of heart attack / SNOMED CT 4267971979 / Confirmed Acute angina / SNOMED CT 710458079 / Confirmed Irregular heart beat / SNOMED CT 677526849 / Confirmed HTN (hypertension) / SNOMED CT 9803159602 / Confirmed High cholesterol / SNOMED CT 73072261 / Confirmed H/O heart bypass surgery / SNOMED CT 539914513 / Confirmed Apnea, sleep / SNOMED CT 883164589 / Confirmed CPAP (continuous positive airway pressure) dependence / SNOMED CT 5246276067 / Confirmed Enlarged prostate / SNOMED CT 096306225 / Confirmed Chronic kidney disease (CKD) / SNOMED CT 8095288736 / Confirmed Diabetes / SNOMED CT 580046773 / Confirmed Carpal tunnel syndrome / SNOMED CT 16305644 / Confirmed Anemia / SNOMED CT 784882910 / Confirmed Arthritis, rheumatoid / SNOMED CT 272523829 / Confirmed Obesity / ICD-9-CM 278.00 / Possible Obesity / SNOMED CT [id number] [id number] / Possible Objective Vital Signs 09/06/2023 11:09 [...] straight leg raise bilaterally Integumentary: Warm, Dry, Rule. Neurologic: Alert, Oriented. Psychiatric: Cooperative, Appropriate mood [...] sooner if necessary. LEONOR score: 36% Normal [facility] Comment on above: Result Comment: Elec tronically Signed By: Margareth De La Cruz PA-C\.br\Date and Time Signed: 09/06/23 11:33 EDT\.br\Electronically Co-Signed By: John Cannon DO.dawit\Date and Time Co-Signed: 09/09/23 10:07 EDT Office/Clinic Note-Physician on 09-06-2023 Office/Clinic Note-Physician [id number]#1 .00TIFF Normal [facility] Orders Officeon 09-06-2023 Orders Office [id number]#1 .00TIFF Normal [facility] Patient Correspondenceon Patient Correspondence [id number]#1 .00TIFF Normal [facility] Patient Correspondence [id number]#1 .00TIFF [facility] Patient History Officeon Patient History Office [id number]#1 .00TIFF [facility] Follow-Upon 09-03-2023 Follow-Up [id number] Igor Pinedary Lorenzo 1950 M [facility] Provider Department [place] 09/03[facility]2023 [facility] No family history on file Level of Service:18934 [place] OFFICE/OUTPATIENT ESTABLISHED MOD MDM 30-39 MIN Reason for Visit and Comments: Hypogonadism [185] - Labs / flow PVR [facility] Orders Onlyon 09-02-2023 Orders Only [id number] Trae Pineda 1950 M [facility] Provider Department [place] 09/02/2023 Doroteo-SHY VALADEZ None No family history on file [facility] 36on 08-29-2023 36 This is a request fo r Dr. Ariza patient. Can you please assist with this refill? [facility] Refillon 08-29-2023 Refill [id number] Trae Pineda [address] [facility] Provider Department [place] 08/29/2023 [facility] Second Fl No family history on file Reason for Visit and Comments: Med Refill [[id number]] [facility] Consent for Procedure/Surger yon 08-06-2023 Consent for Procedure/Surgery [id number]# 1.00CD:127 [facility] Consent for Treatmenton 07-19 Consent for Treatment [id number]#1 .00CD:127 Normal [facility] Discharge Instructionson Discharge Instructions [id number]# 1.00CD:127 Normal [facility] IntraOperative Documentson 0 08-06-2023 IntraOperative Documents [id number]# 1.00CD:127 Normal [facility] Main OR Intraoperative Recor don 08-06-2023 Main OR Intraoperative Record IntraOp Document Type FTPM Summary Primary Physician: Himanshu Wright MD Finalized Date/Time: 08/06/23 14:19:56 Pt. Name: TRAE PINEDA Lorenzo /Sex: 1950 Male Med Rec #: [id number] Physician: Himanshu Wright MD Financial #: [id number] Pt. Type: P Room/Bed: / Admit/Disch: 08/06/23 [...] Deysi Herrera Role Performed Surgeon - Primary Manufacturer Representative - Primary Scrub - Primary Time In [...] Leanne Dennis Role Performed Scrub - Relief Test Grader Time In 08/06/23 14:12:00 08/06/23 14:12:00 Time [...] and tissue Entry 1 Skin Integrity Intact, Rule, Warm, and Skin Abnormality No Dry Outcomes [...] Arm Posi (more content not included)... Normal [facility] Main OR Preoperative Recordo n 08-06-2023 Main OR Preoperative Record Holding Area Document Type FTPM Summary Primary Physician: Himanshu Wright MD Finalized Date/Time: 08/06/23 14:02:18 Pt. Name: TRAE PINEDA/Sex: 1950 Male Med Rec #: [id number] Physician: Himanshu Wright MD Financial #: [id number] Pt. Type: P Room/Bed: / Admit/Disch: 08/06/23 [...] By: Isa Romero RN 08/06/23 14:02 Normal [facility] Operative Reporton 3 Operative Report Patient: KATERINA [...] 70 mmHg SpO2 97 % . Normal [facility] Comment on above: Result Comment: Elec tronically [...] SOSA Date: 2023-03-07 10:24 Normal [facility] TESTOSTERONE, FREE,DIRECT, T OTALon 01-24-2023 Free Testosterone(Direct) 10.1 pg/mL Normal 6.6-18.1 [facility] Comment on above: Result Comment: Perf ormed at: BN Performed By: #### L [facility] #### [facility] [address] [place] [address] Dr. Zan Escalante Testosterone [Mass/Vol] 622 ng/dL Normal 264-916 [facility] Comment on above: Result Comment: Adul t male reference interval is based on a population of healthy nonobese males (BMI <30) between 19 and 39 years old. Ntae et.al. JCEM 2017,102;2044-5693. PMID: 31910527. Performed at: CB Performed By: #### L JENNYFER #### [facility] [address] [address] [address] Zan Escalante ESTRADIOLon 01-19-2023 Estradiol 21.4 pg/mL Normal 7.6-42.6 [facility] Comment on above: Result Comment: Anastacio ventura ECLIA methodology Performed By: #### L JENNYFER #### [facility] [address] [address] [address] Zan Escalante FSHon 01-19-2023 FSH 0.3 mIU/mL Critically low 1.5-12.4 [facility] Comment on above: Performed By: #### L BCFSH #### [facility] [address] [address] [address] Zan Escalante LUTEINIZING HORMONE (LH)on 0 01-19-2023 LH <0.3 Critically low 1.7-8.6 [facility] Comment on above: Performed By: #### L BCLH #### [facility] [address] [address] [address] Zan Escalante PROLACTINon 01-19-2023 Prolactin 6.5 ng/mL Normal 4.0-15.2 [facility] Comment on above: Performed By: #### L BCLH #### [facility] [address] [place] [address] Dr. Zan Escalante SEX HORMONE-BINDING GLOBULIN on 01-19-2023 Sex Horm Binding Glob, Serum 28.3 nmol/L Normal 19.3-76.4 [facility] Comment on above: Performed By: #### S EXHBG #### [facility] [address] [address] [address] Zan Escalante CHEMISTRYOrdered By: Lab ROP User on 12-12-2022 Glucose [Mass/Vol] 157 mg/dL High 55 - 99 mg/dL FTM C POC Subsection POC Device SN [id number] Invalid Interpretation Code [facility] POC Subsection POC User ID [id number] Invalid Interpretation Code [facility] POC Subsection POC Username THOMAS FARR Invalid Interpretation Code [facility] POC Subsection TESTOSTERONE, FREE,DIRECT, T OTALon 09-01-2022 Free Testosterone(Direct) 4.2 pg/mL Critically low 6.6-18.1 [facility] Comment on above: Result Comment: Perf ormed at: BN Performed By: #### T ESTFRD #### [facility] [address] [place] [address] Dr. Zan Escalante Testosterone [Mass/Vol] 171 ng/dL Critically low 264-916 [facility] Comment on above: Result Comment: Adul t male reference interval is based on a population of healthy nonobese males (BMI <30) between 19 and 39 years old. jeancarlos Sullivan.al. JCEM 2017,102;6374-8245. PMID: 20942394. Performed at: CB Performed By: #### T ESTFRD #### [facility] [address] [address] [address] Zan Escalante ESTRADIOLon 08-30-2022 Estradiol 28.9 pg/mL Normal 7.6-42.6 [facility] Comment on above: Result Comment: Anastacio ventura ECLIA methodology Performed By: #### L BCLH #### [facility] [address] [place] [address] Dr. Zan Escalante FSHon 08-30-2022 FSH 3.0 mIU/mL Normal 1.5-12.4 [facility] Comment on above: Performed By: #### L BCFSH #### [facility] [address] [address] [address] Zan Escalante LUTEINIZING HORMONE (LH)on 1 LH 5.7 mIU/mL Normal 1.7-8.6 [facility] Comment on above: Performed By: #### L BCLH #### [facility] [address] [place] [address] Dr. Zan Escalante PROLACTINon 08-30-2022 Prolactin 8.6 ng/mL Normal 4.0-15.2 [facility] Comment on above: Performed By: #### L BCLH #### [facility] [address] [place] [address] Dr. Zan Escalante SEX HORMONE-BINDING GLOBULIN on 08-30-2022 Sex Horm Binding Glob, Serum 22.7 nmol/L Normal 19.3-76.4 [facility] Comment on above: Performed By: #### S EXHBG #### [facility] [address] [place] [address] Dr. Zan Escalante ECHOCARDIO M/2D COMPLETEon 0 07-31-2022 ECHOCARDIO M/2D COMPLETE Patient: EDWIN TRAE VenturaBryan Exam Date: 07/31/2022 : 1950 Gender:M Ordering : DR MOI MOSS M.D. Admission #: [id number] Family : Order #: [id number] CLICK HERE TO VIEW EXAM ECHOCARDIOGRAM REPORT [...] Moss M.D. on 07/31/2022 at 18:09 Normal [facility] *URINE CATH CULTUREon 2021 *URINE CATH [...] Susceptible VANCOMYCIN (VA) 1 Susceptible Normal [facility] Comment on above: Order Comment: 1. Ur ine Performed By: #### 3 0478 #### [address] Operative Reporton 2 Operative Report MR#: [id number] S [facility] Pt. Name: Trae Pineda Room #: 0C Discharge Date: Birthdate: 1950 OPERATIVE REPORT DATE OF SURGERY: 07/02/2022 SURGEON: Diony Ariza MD PHYSICIST LIGHT AND OPTICS: Kolby ARMANDO PGY3 PREOPERATIVE DIAGNOSIS: Benign prostatic [...] the room agreed. A well lubricated rigid 22-Zimbabwean cystoscopic sheath with a 30-degree lens was [...] bleeding due to scope trauma so 18 azerbaijani leggett was inserted. Urine was with significant [...] Jarrett MD Date Trans: 07/02/2022 03:30 P/ ZAN_JN:[id number] cc: Cristobal Kearns D.O. [address] [facility], [address] [facility] [address] Normal [facility] POC GLUCOSE LABon 07-02-2022 Glucose [Mass/Vol] 130 mg/dL High 70-100 [facility] Comment on above: Performed By: #### 8 5499 #### [facility] [address] [place] [address], [facility] MICROALBUMIN URINEon 022 Albumin, Urine 42.2 ug/mL Normal Not Estab. [facility] Comment on above: Performed By: #### L BCLH #### [facility] [address] [address] [address] Zan Escalante CBC AUTO DIFFon 06-29-2022 BASO # 0.1 103/ul Normal 0.0-0.1 [facility] Comment on above: Performed By: #### C BC #### [facility] [address] [place] [address] Dr. Zan Escalante Basophils/100 WBC (Bld) 1.1 % Normal 0.2-2.0 [facility] Comment on above: Performed By: #### C BC #### [facility] [address] [place] [address] Dr. Zan Escalante EO # 0.6 103/ul Normal 0.0-0.7 [facility] Comment on above: Performed By: #### C BC #### [facility] [address] [address] [address] Zan Escalante Eosinophils/100 WBC (Bld) 7.0 % Normal 0.9-7.0 [facility] Comment on above: Performed By: #### C BC #### [facility] [address] [place] [address] Dr. Zan Escalante Erythrocyte distribution width (RBC) [Ratio] 13.8 % Normal 11.0-15.0 [facility] Comment on above: Performed By: #### C BC #### [facility] [address] [place] [address] Dr. Zan Escalante Hematocrit (Bld) [Volume fraction] 40.9 % Critically low 42.0-54.0 [facility] Comment on above: Performed By: #### C BC #### [facility] [address] [place] [address] Dr. Zan Escalante Hemoglobin (Bld) [Mass/Vol] 13.1 g/dL Critically low 14.0-18.0 [facility] Comment on above: Performed By: #### C BC #### [facility] [address] [place] [address] Dr. Zan Escalante IG # 0.04 10e3/ul Critically high 0.00-0.03 [facility] Comment on above: Performed By: #### C BC #### [facility] [address] [place] [address] Dr. Zan Escalante IG % 0.5 % Normal 0.0-0.5 [facility] Comment on above: Performed By: #### C BC #### [facility] [address] [place] [address] Dr. Zan Escalante LYMPH # 3.0 103/ul Normal 1.2-3.8 [facility] Comment on above: Performed By: #### C BC #### [facility] [address] [place] [address] Dr. Zan Escalante Lymphocytes/100 WBC (Bld) 33.4 % Normal 20.5-60.0 [facility] Comment on above: Performed By: #### C BC #### [facility] [address] [place] [address] Dr. Zan Escalante MANUAL DIFF REQ NO Normal [facility] Comment on above: Performed By: #### C BC #### [facility] [address] [place] [address] Dr. Zan Escalante MCH (RBC) [Entitic mass] 29.6 pg Normal 25.9-34.0 [facility] Comment on above: Performed By: #### C BC #### [facility] [address] [place] [address] Dr. Zan Escalante MCHC (RBC) [Mass/Vol] 32.0 g/dL Normal 29.9-35.2 [facility] Comment on above: Performed By: #### C BC #### [facility] [address] [address] [address] Zan Escalante MCV (RBC) [Entitic vol] 92.3 fL Normal 80.0-94.0 [facility] Comment on above: Performed By: #### C BC #### [facility] [address] [address] [address] Zan Escalante MONO # 0.8 103/ul Normal 0.3-0.8 [facility] Comment on above: Performed By: #### C BC #### [facility] [address] [address] [address] Zan Escalante Monocytes/100 WBC (Bld) 9.4 % Normal 1.7-12.0 [facility] Comment on above: Performed By: #### C BC #### [facility] [address] [address] [address] Zan Escalante NEUT # 4.3 103/ul Normal 1.4-6.5 [facility] Comment on above: Performed By: #### C BC #### [facility] [address] [address] [address] Zan Escalante Neutrophils/100 WBC (Bld) 48.6 % Normal 43.0-75.0 [facility] Comment on above: Performed By: #### C BC #### [facility] [address] [address] [address] Zan Escalante Platelet mean volume (Bld) [Entitic vol] 11.2 fL Normal 9.5-13.5 [facility] Comment on above: Performed By: #### C BC #### [facility] [address] [address] [address] Zan Escalante PLT 185 103/ul Normal 150-450 [facility] Comment on above: Performed By: #### C BC #### [facility] [address] [address] [address] Zan Escalante RBC 4.43 106/ul Critically low 4.70-6.10 [facility] Comment on above: Performed By: #### C BC #### [facility] [address] [place] [address] Dr. Zan Escalante WBC 8.9 103/ul Normal 4.0-11.0 [facility] Comment on above: Performed By: #### C BC #### [facility] [address] [place] [address] Dr. Zan Escalante Covid-19 PCR ([facility])on 06-18 SARS-CoV-2 (COVID-19) RNA KRISTEL+probe Ql (Unsp spec) Not detected Normal NOT DETECTED [facility] Comment on above: Result Comment: This test is not yet approved or cleared by the [place] FDA. When there are no FDA-approved or cleared tests available, and other criteria are met, FDA can make tests available under an emergency access mechanism called an Emergency Use Authorization (EUA). The EUA for this test is supported by the Workers' Compensation Claims Examiner of Health and Human Service's (HHS's) declaration [...] consistent with SARS-CoV-2. Performed By: #### L [facility] #### [facility] [address] [place] [address] Dr. Zan Escalante GLYCOHEMOGLOBIN A1Con 2021 ADA RECOMMENDATION SEE BELOW Normal [facility] Comment on above: Result Comment: ADA RECOMMENDED LIMIT 4.0 - 6.0 ADA THERAPEUTIC TARGET < 7.0 ACTION SUGGESTED > 7.0 Performed By: #### A 1C #### [facility] [address] [place] [address] Dr. Zan Escalante Glucose [Mass/Vol] 143 mg/dL Normal [facility] Comment on above: Performed By: #### A 1C #### [facility] [address] [address] [address] Zan Escalante HbA1c (Bld) [Mass fraction] 6.6 % Critically high 4.5-6.2 [facility] Comment on above: Performed By: #### A 1C #### [facility] [address] [address] [address] Zan Escalante LIPID PROFILEon 06-29-2022 CHOL-HDL RATIO NORM SEE BELOW Normal [facility] Comment on above: Result Comment: 3.3 - 4.4 LOW RISK 4.4 - 7.1 AVERAGE RISK 7.1 - 11.0 MODERATE RISK >11.0 HIGH RISK Performed By: #### B MP, LIPID #### [facility] [address] [place] [address] Dr. Zan Escalante Cholesterol [Mass/Vol] 105 mg/dL Normal <=200 [facility] Comment on above: Performed By: #### B MP, LIPID #### [facility] [address] [address] [address] Zan Escalante Cholesterol in HDL [Mass/Vol] 39 mg/dL Critically low 40-60 [facility] Comment on above: Performed By: #### B MP, LIPID #### [facility] [address] [place] [address] Dr. Zan Escalante Cholesterol in LDL [Mass/Vol] 45.0 mg/dL Normal [facility] Comment on above: Performed By: #### B MP, LIPID #### [facility] [address] [address] [address] Zan Escalante Cholesterol.total/Ch olesterol in HDL [Mass ratio] 2.7 {ratio} Normal [facility] Comment on above: Performed By: #### B MP, LIPID #### [facility] [address] [place] [address] Dr. Zan Escalante HDL NORMAL > or = 60 mg/dl - LO W CARDIOVASCULAR RISK <40 mg/dl - HIGH CARDIOVASCULAR RISK Normal [facility] Comment on above: Performed By: #### B MP, LIPID #### [facility] [address] [place] [address] Dr. Zan Escalante LDL CALC NORMAL SEE BELOW Normal [facility] Comment on above: Result Comment: <100 mg/dl OPTIMAL 100 - 129 mg/dl NEAR OR ABOVE OPTIMAL 130 - 159 mg/dl BORDERLINE HIGH 160 - 189 mg/dl HIGH >190 mg/dl VERY HIGH Performed By: #### B MP, LIPID #### [facility] [address] [address] [address] Zan Escalante Triglyceride [Mass/Vol] 105 mg/dL Normal <=150 [facility] Comment on above: Performed By: #### B MP, LIPID #### [facility] [address] [address] [address] Zan Escalante VLDL CALC 21.0 mg/dL Normal [facility] Comment on above: Performed By: #### B MP, LIPID #### [facility] [address] [address] [address] Zan Escalante PROF CHEM 8 (BAS METB)on Anion gap [Moles/Vol] 12.1 mmol/L Normal [facility] Comment on above: Performed By: #### B MP, LIPID #### [facility] [address] [address] [address] Zan Escalante Calcium [Mass/Vol] 9.0 mg/dL Normal 8.5-10.1 [facility] Comment on above: Performed By: #### B MP, LIPID #### [facility] [address] [address] [address] Zan Escalante Chloride [Moles/Vol] 106 mmol/L Normal 98-107 [facility] Comment on above: Performed By: #### B MP, LIPID #### [facility] [address] [address] [address] Zan Escalante CO2 [Moles/Vol] 28.4 mmol/L Normal 21.0-32.0 [facility] Comment on above: Performed By: #### B MP, LIPID #### [facility] [address] [address] [address] Zan Escalante Creatinine [Mass/Vol] 1.39 mg/dL Critically high 0.70-1.30 [facility] Comment on above: Performed By: #### B MP, LIPID #### [facility] [address] [address] [address] Zan Escalante EGFR-AF GRENADIAN >60 Normal >=60 [facility] Comment on above: Performed By: #### B MP, LIPID #### [facility] [address] [address] [address] Zan Escalante EGFR-NON AF GRENADIAN 50 mL/min/1.73m2 Critically low >=60 [facility] Comment on above: Performed By: #### B MP, LIPID #### [facility] [address] [address] [address] Zan Escalante Glucose [Mass/Vol] 96 mg/dL Normal 74-106 [facility] Comment on above: Performed By: #### B MP, LIPID #### [facility] [address] [address] [address] Zan Escalante Potassium [Moles/Vol] 4.5 mmol/L Normal 3.5-5.1 [facility] Comment on above: Performed By: #### B MP, LIPID #### [facility] [address] [address] [address] Zan Escalante Sodium [Moles/Vol] 142 mmol/L Normal 136-145 [facility] Comment on above: Performed By: #### B MP, LIPID #### [facility] [address] [address] [address] Zan Escalante Urea nitrogen [Mass/Vol] 23.0 mg/dL Critically high 7.0-18.0 [facility] Comment on above: Performed By: #### B MP, LIPID #### [facility] [address] [address] [address] Zan Escaalnte Urea nitrogen/Creatinine [Mass ratio] 16.5 mg/mg Normal [facility] Comment on above: Performed By: #### B MP, LIPID #### [facility] [address] [address] [address] Zan Escalante ESTRADIOLon 04-17-2022 ESTRADIOL 20.7 pg/mL Low 27-52 [facility] [place] Normal [facility] Comment on above: Result Comment: Test Performed by [facility] [id number] [place] [address] - Released 04/17/2022 14:29 Result Comment: Test Performed by [facility] [address] [place] [address] - Released 04/17/2022 14:30 TESTOSTERONE, TOTAL ILon Testosterone [Mass/Vol] 108 ng/dL Low 220-1000 [facility] CT UROGRAMon 03-13-2022 CT UROGRAM [facility] Department of Radiology [address] [place] [address] Patient Name: TRAE PNIEDA : 1950 Sex: M Age: Race: White Pt. Location: [facility] Patient Status: D Ordered [...] achievable Electronically signed: Aquilino Johnson. Transcribed by: [email or web address], User Resident: Electronically Signed by: AQUILINO JOHNSON @ 03/15/2022 01:05 PM Normal [facility] Vital Signs Date Time Vital Sign Value Performing Clinician Facility 05-18-2024 13:07-0400 Diastolic blood pressure 71 mm[Hg] Margareth De La Cruz [facility] 05-18-2024 13:07-0400 Heart rate 59 /min Margareth De La [facility] 05-18-2024 13:07-0400 Mean blood pressure 99 mm[Hg] Margareth De La Cruz [facility] 05-18-2024 13:07-0400 Respiratory rate 16 /min Margareth [facility] 05-18-2024 13:07-0400 Systolic blood pressure 156 mm[Hg] Margareth [facility] 03-27-2024 14:19-0400 Diastolic blood pressure 69 mm[Hg] Margareth [facility] 03-27-2024 14:19-0400 Heart rate 69 /min Margareth [facility] 03-27-2024 14:19-0400 Mean blood pressure 96 mm[Hg] Margareth [facility] 03-27-2024 14:19-0400 Respiratory rate 15 /min Margareth [facility] 03-27-2024 14:19-0400 Systolic blood pressure 151 mm[Hg] Margareth [facility] 02-14-2024 13:32-0400 Diastolic blood pressure 62 mm[Hg] Margareth [facility] 02-14-2024 13:32-0400 Heart rate 66 /min Margareth [facility] 02-14-2024 13:32-0400 Mean blood pressure 87 mm[Hg] Margareth [facility] 02-14-2024 13:32-0400 Respiratory rate 14 /min Margareth [facility] 02-14-2024 13:32-0400 Systolic blood pressure 136 mm[Hg] Margareth [facility] 01-15-2024 14:27-0500 Heart rate 63 /min John Cannon [facility] 01-15-2024 14:27-0500 SaO2% (BldA) [Mass fraction] 100 % John Cannon [facility] 01-15-2024 14:27-0500 Respiratory rate 16 /min John Cannon [facility] 01-15-2024 14:26-0500 Diastolic blood pressure 78 mm[Hg] John Cannon [facility] 01-15-2024 14:26-0500 Mean blood pressure 116 mm[Hg] John Cannon [facility] 01-15-2024 14:26-0500 Systolic blood pressure 192 mm[Hg] Lopez Davis [facility] 01-15-2024 14:17-0500 Diastolic blood pressure 76 mm[Hg] John Cannon [facility] 01-15-2024 14:17-0500 Heart rate 66 /min Lopez Davis [facility] 01-15-2024 14:17-0500 Respiratory rate 14 /min Lopez Davis [facility] 01-15-2024 14:17-0500 SaO2% (BldA) [Mass fraction] 96 % John Davis [facility] 01-15-2024 14:17-0500 Systolic blood pressure 143 mm[Hg] John Cannon [facility] 01-15-2024 13:42-0500 gluc 128 mg/dL John Davis [facility] Comment on above: Result Comment: per pt's meter on right arm 01-15-2024 13:30-0500 Heart rate 60 /min John Cannon [facility] 01-15-2024 13:30-0500 SaO2% (BldA) [Mass fraction] 99 % John Cannon [facility] 01-15-2024 13:30-0500 Body temperature 97.34 [degF] John Cannon [facility] 01-15-2024 13:30-0500 Diastolic blood pressure 78 mm[Hg] John Cannon [facility] 01-15-2024 13:30-0500 Mean blood pressure 111 mm[Hg] John Cannon [facility] 01-15-2024 13:30-0500 Systolic blood pressure 175 mm[Hg] John Cannon [facility] 01-15-2024 13:29-0500 Respiratory rate 14 /min John Cannon [facility] 12-16-2023 10:23-0500 Diastolic blood pressure 66 mm[Hg] Margarethita De La Cruz [facility] 12-16-2023 10:23-0500 Heart rate 70 /min Margareth De La [facility] 12-16-2023 10:23-0500 Mean blood pressure 92 mm[Hg] Margarethita De La [facility] 12-16-2023 10:23-0500 Respiratory rate 14 /min Margareth De La [facility] 12-16-2023 10:23-0500 Systolic blood pressure 144 mm[Hg] Margareth De La [facility] 11-12-2023 10:00-0500 Body height 182.88 cm Cristobal Kearns Other [facility] Other 11-12-2023 10:00-0500 Body mass index (BMI) [Ratio] 32.46 kg/m2 Cristobal Kearns Other [facility] Other 11-12-2023 10:00-0500 Body weight 108.59 kg Cristobal Ball Other [facility] Other 11-12-2023 10:00-0500 Diastolic blood pressure 76 mm[Hg] Cristobal Ball Other [facility] Other 11-12-2023 10:00-0500 Respiratory rate 16 /min Cristobal Ball Other [facility] Other 11-12-2023 10:00-0500 Systolic blood pressure 137 mm[Hg] Cristobal Ball Other [facility] Other 11-08-2023 10:58-0500 Diastolic blood pressure 71 mm[Hg] Margareth [facility] 11-08-2023 10:58-0500 Heart rate 63 /min Margareth [facility] 11-08-2023 10:58-0500 Mean blood pressure 93 mm[Hg] Margareth [facility] 11-08-2023 10:58-0500 Respiratory rate 15 /min Margareth [facility] 11-08-2023 10:58-0500 Systolic blood pressure 136 mm[Hg] Margareth [facility] 09-06-2023 11:09-0400 Diastolic blood pressure 77 mm[Hg] Margareth [facility] 09-06-2023 11:09-0400 Heart rate 59 /min Margareth [facility] 09-06-2023 11:09-0400 Mean blood pressure 106 mm[Hg] Margareth [facility] 09-06-2023 11:09-0400 Respiratory rate 16 /min Margareth D eLa Cruz [facility] 09-06-2023 11:09-0400 Systolic blood pressure 163 mm[Hg] Margareth De La Cruz [facility] 08-06-2023 14:22-0400 Heart rate 59 /min Himanshu Adriana [facility] 08-06-2023 14:22-0400 SaO2% (BldA) [Mass fraction] 99 % Himanshu Adriana [facility] 08-06-2023 14:22-0400 Diastolic blood pressure 91 mm[Hg] Himanshu Adriana [facility] 08-06-2023 14:22-0400 Mean blood pressure 107 mm[Hg] Himanshu Adriana [facility] 08-06-2023 14:22-0400 Systolic blood pressure 139 mm[Hg] Himanshu Adriana [facility] 08-06-2023 14:15-0400 Diastolic blood pressure 80 mm[Hg] Himanshu Adriana [facility] 08-06-2023 14:15-0400 Heart rate 58 /min Himanshu Adriana [facility] 08-06-2023 14:15-0400 SaO2% (BldA) [Mass fraction] 97 % Himanshu Adriana [facility] 08-06-2023 14:15-0400 Systolic blood pressure 146 mm[Hg] Himanshu Adriana [facility] 08-06-2023 13:52-0400 Respiratory rate 14 /min Himanshu Adriana [facility] 08-06-2023 13:00-0400 Body temperature 98.06 [degF] Himanshu Wright [facility] 08-06-2023 13:00-0400 Diastolic blood pressure 70 mm[Hg] Himanshu Wright [facility] 08-06-2023 13:00-0400 Heart rate 67 /min Himanshu Wright [facility] 08-06-2023 13:00-0400 Systolic blood pressure 144 mm[Hg] Himanshu Wright [facility] 07-02-2023 14:17-0400 Diastolic blood pressure 71 mm[Hg] Margareth [facility] 07-02-2023 14:17-0400 Heart rate 61 /min Margareth [facility] 07-02-2023 14:17-0400 Mean blood pressure 97 mm[Hg] Margareth [facility] 07-02-2023 14:17-0400 Respiratory rate 14 /min Margareth [facility] 07-02-2023 14:17-0400 Systolic blood pressure 148 mm[Hg] Margareth [facility] 01-11-2023 13:43-0500 Diastolic blood pressure 75 mm[Hg] Maragreth [facility] 01-11-2023 13:43-0500 Heart rate 76 /min Margareth [facility] 01-11-2023 13:43-0500 Mean blood pressure 105 mm[Hg] Margareth [facility] 01-11-2023 13:43-0500 Respiratory rate 18 /min Margareth [facility] 01-11-2023 13:43-0500 Systolic blood pressure 166 mm[Hg] Margareth De La [facility] 01-08-2023 13:30-0500 Body height 182.88 cm Cristobal Ball Other [facility] Other 01-08-2023 13:30-0500 Body mass index (BMI) [Ratio] 32.11 kg/m2 Cristobal Ball Other [facility] Other 01-08-2023 13:30-0500 Body weight 107.41 kg Cristobal Ball Other [facility] Other 01-08-2023 13:30-0500 Diastolic blood pressure 70 mm[Hg] Cristobal Ball Other [facility] Other 01-08-2023 13:30-0500 Respiratory rate 16 /min Cristobal Ball Other [facility] Other 01-08-2023 13:30-0500 Systolic blood pressure 126 mm[Hg] Cristobal Ball Other [facility] Other 12-12-2022 11:00-0500 Heart rate 73 /min Tutu Zum[facility] 12-12-2022 11:00-0500 SaO2% (BldA) [Mass fraction] 98 % [facility] 12-12-2022 11:00-0500 Diastolic blood pressure 75 mm[Hg] [facility]u [facility] 12-12-2022 11:00-0500 Mean blood pressure 108 mm[Hg] [facility] 12-12-2022 11:00-0500 Systolic blood pressure 173 mm[Hg] [facility]u [facility] 12-12-2022 10:51-0500 Diastolic blood pressure 88 mm[Hg] Tutu [facility] 12-12-2022 10:51-0500 Heart rate 71 /min [facility] 12-12-2022 10:51-0500 Respiratory rate 16 /min [facility] 12-12-2022 10:51-0500 SaO2% (BldA) [Mass fraction] 96 % [facility]u [facility] 12-12-2022 10:51-0500 Systolic blood pressure 157 mm[Hg] [facility]u [facility] 12-12-2022 10:13-0500 Heart rate 75 /min [facility] 12-12-2022 10:13-0500 SaO2% (BldA) [Mass fraction] 97 % [facility] 12-12-2022 10:13-0500 Body temperature 97.88 [degF] [facility]u Zum[facility] 12-12-2022 10:12-0500 Diastolic blood pressure 76 mm[Hg] [facility]u [facility] 12-12-2022 10:12-0500 Mean blood pressure 108 mm[Hg] [facility]u [facility] 12-12-2022 10:12-0500 Systolic blood pressure 170 mm[Hg] [facility]u [facility] 12-12-2022 10:10-0500 Respiratory rate 16 /min [facility] 11-08-2022 15:04-0500 Diastolic blood pressure 76 mm[Hg] [facility]u [facility] 11-08-2022 15:04-0500 Heart rate 62 /min [facility] 11-08-2022 15:04-0500 Mean blood pressure 108 mm[Hg] [facility]u [facility] 11-08-2022 15:04-0500 Respiratory rate 14 /min [facility] 11-08-2022 15:04-0500 Systolic blood pressure 173 mm[Hg] [facility] Encounters Encounter Date Encounter Type Care Provider Facility Start: 08-13-2024 End: 08-13-2024 ambulatory [facility] Start: 08-03-2024 End: 08-03-2024 ambulatory Margareth De La Cruz Facility:[facility] Start: 07-27-2024 End: 07-27-2024 ambulatory [facility] Start: 05-19-2024 End: 05-19-2024 ambulatory [facility] Start: 05-18-2024 End: 05-18-2024 ambulatory Margareth De La Cruz Facility:[facility] Start: 05-18-2024 End: 05-18-2024 Pain Management Margareth De La [facility] Start: 05-11-2024 End: 05-11-2024 ambulatory [facility] Start: 05-11-2024 End: 05-11-2024 ambulatory [facility] Start: 03-27-2024 End: 03-27-2024 ambulatory PA-C Margareth De La Cruz Facility:[facility] Start: 03-27-2024 End: 03-27-2024 Pain Management Margarethita De La [facility] Start: 03-17-2024 End: 03-17-2024 ambulatory [facility] Start: 02-14-2024 End: 02-14-2024 ambulatory PA-C Margareth De La Cruz Facility:[facility] Start: 02-14-2024 End: 02-14-2024 Pain Management Margarethita De La [facility] Start: 02-11-2024 End: 02-11-2024 ambulatory Cristobal Kearns Other [facility] Other Start: 02-11-2024 Telephone encounter Cristobal Kearns [facility] Start: 01-20-2024 End: 01-20-2024 ambulatory [facility] Start: 01-15-2024 End: 01-15-2024 ambulatory John Cannon Facility:[facility] Start: 01-15-2024 End: 01-15-[address] [facility] Start: 01-01-2024 End: 01-01-2024 ambulatory [facility] Start: 12-16-2023 End: 12-16-2023 ambulatory PA-C Margareth De La Cruz Facility:[facility] Start: 12-16-2023 End: 12-16-2023 Pain Management Margarethita De La [facility] Start: 12-10-2023 End: 12-10-2023 ambulatory [facility] Start: 11-27-2023 End: 11-27-2023 ambulatory Cristobal Kearns Other [facility] Other Start: 11-27-2023 Telephone encounter Cristobal Kearns [facility] Start: 11-19-2023 End: 11-19-2023 ambulatory Cristobal Kearns Other [facility] Other Start: 11-19-2023 Telephone encounter Cristobal Kearns [facility] Start: 11-14-2023 End: 11-14-2023 ambulatory Cristobal Kearns Other [facility] Other Start: 11-14-2023 Telephone encounter Cristobal Kearns [facility] Start: 11-12-2023 End: 11-12-2023 ambulatory Cristobal Kearns Other [facility] Other Start: 11-12-2023 Office outpatient vi sit 25 minutes Cristobal Kearns [facility] Start: 11-08-2023 End: 11-08-2023 ambulatory CRISTOBAL KEARNS Facility:[facility] Start: 11-08-2023 End: 11-08-2023 Pain Management Margareth De La [facility] Start: 10-28-2023 End: 10-28-2023 ambulatory [facility] Start: 09-06-2023 End: 09-06-2023 ambulatory CRISTOBAL KEARNS Facility:[facility] Start: 09-06-2023 End: 09-06-2023 Pain Management Margareth De La [facility] Start: 09-04-2023 End: 09-04-2023 ambulatory Cristobal Kearns Other [facility] Other Start: 09-04-2023 Telephone encounter Cristobal TELLEZ [facility] Start: 09-03-2023 End: 09-03-2023 ambulatory [facility] Start: 08-21-2023 End: 08-21-2023 ambulatory Cristobal Kearns Other [facility] Other Start: 08-21-2023 Telephone encounter Cristobal TELLEZ [facility] Start: 08-06-2023 End: 08-06-2023 ambulatory MD Himanshu Wright Facility:[facility] Start: 08-06-2023 End: 08-06-2023 Pain Management Himanshu Wright [facility] Start: 07-23-2023 End: 07-23-2023 ambulatory Cristobal Kearns Other [facility] Other Start: 07-23-2023 Telephone encounter Cristobal TELLEZ [facility] Start: 07-02-2023 End: 07-02-2023 Pain Management [address]o [facility] Start: 03-19-2023 End: 03-19-2023 ambulatory Cristobal Kearns Other [facility] Other Start: 03-19-2023 Office outpatient vi sit 15 minutes Cristobal Kearns [facility] Start: 03-08-2023 End: 03-08-2023 ambulatory Cristobal Kearns Other [facility] Other Start: 03-08-2023 Telephone encounter Cristobal Kearns [facility] Start: 03-07-2023 Telephone encounter Cristobal TELLEZ [facility] Start: 03-07-2023 End: 03-08-[address] CRISTOBAL KEARNS [facility] Other Start: 02-26-2023 End: 02-26-2023 ambulatory Cristobal Kearns Other [facility] Other Start: 02-26-2023 Telephone encounter Cristobal Kearns [facility] Start: 01-18-2023 Telephone encounter Cristobal TELLEZ [facility] Start: 01-18-2023 End: 01-19-[address] DOCTOR YIN [facility] Other Start: 01-11-2023 End: 01-11-2023 Pain Management Margareth De La [facility] Start: 01-08-2023 End: 01-08-2023 ambulatory Cristobal Kearns Other [facility] Other Start: 01-08-2023 Office outpatient vi sit 25 minutes Cristobal Kearns [facility] Start: 12-12-2022 End: 12-12-2022 Pain Management [facility]u [facility] Start: 11-23-2022 End: 11-23-[address] CRISTOBAL KEARNS Facility:[facility] Start: 11-18-2022 End: 11-22-[address] CRISTOBAL KEARNS Facility:[facility] Start: 11-08-2022 End: 11-08-2022 Patient encounter procedure [facility] Start: 11-08-2022 End: 11-08-2022 Pain Management [facility] Start: 08-29-2022 End: 08-30-[address] DOCTOR ADAMS Facility:[facility] Start: 07-31-2022 End: 08-01-[address] MOI MOSS Facility:[facility] Start: 07-02-2022 Encounter for preprocedural laboratory examination DR CRISTOBAL KEARNS [facility] Start: 06-29-2022 End: 06-30-2022 Encounter for preprocedural laboratory examination DR CRISTOBAL KEARNS Facility:[facility] Start: 06-29-2022 End: 06-30-[address] CRISTOBAL KEARNS Facility:[facility] Start: 06-14-2022 End: 11-17-[address] CRISTOBAL KEARNS Facility:[facility] Start: 03-13-2022 End: 03-14-2022 ambulatory LUPIS DENNIS Facility:[facility] Procedures Date Procedure Procedure Detail Performing Clinician Start: 05-11-2024 Follow-up visit Follow-up DIONY ARIZA Start: 01-15-2024 Epidural injection o f lumbar spine using fluoroscopic guidance [facility] Comment on above: 0% relief Start: 08-06-2023 Injection of nerve r oot of lumbar spine using fluoroscopic guidance [facility] Comment on above: bilat L5/S1 TFESI- 9 0% relief x 2 weeks Start: 12-12-2022 Injection of nerve r oot of lumbar spine using fluoroscopic guidance [facility] Comment on above: L5-S1-90% relief Start: 04-17-2022 PSA screening LUPIS JEANNIE Comment on above: Performed By: #### 4 [id number] #### [address] Start: 11-22-2021 Injection of nerve r oot of lumbar spine using fluoroscopic guidance [facility] Comment on above: Bilateral L5 TFESI-9 0-95% relief Start: 07-01-2020 Epidural steroid injection [facility] Comment on above: bilat L5 TFESI- 100% relief x 2 weeks now down to 50% Coronary bypass gustabo t angiography [facility] Comment on above: 2004 Decompression of med oleksandr nerve [facility] Comment on above: right 2012 Fracture of ankle (disorder) [facility] Comment on above: 1989 Klippel-Feil sequenc e (disorder) [facility] Comment on above: disc herniation and fusion 2008 Laminectomy [facility] Comment on above: nov 2019 Immunizations Immunization Date Immunization Notes Care Provider Kiki bautista 09-05-2022 influenza, high dose seasonal, preservative-free Cristobal Kearns Other [facility] Other 08-21-2021 influenza virus vaccine, split virus (incl. purified surface antigen) Cristobal Kearns Other [facility] Other 08-11-2021 COVID-19 Vaccine Pfi zer - Documentation Purposes Only Cristobal Kearns Other [facility] Other 01-10-2021 COVID-19 Vaccine Pfi zer - Documentation Purposes Only Cristobal Kearns Other [facility] Other 12-20-2020 COVID-19 Vaccine Pfi zer - Documentation Purposes Only Cristobal Kearns Other [facility] Other 08-12-2020 zoster vaccine, live Kylie Kearns Other [facility] Other 07-27-2020 influenza virus vaccine, split virus (incl. purified surface antigen) Cristobal Keanrs Other [facility] Other 08-26-2019 influenza virus vaccine, split virus (incl. purified surface antigen) Cristobal Kearns Other [facility] Other 10-29-2018 influenza virus vaccine, split virus (incl. purified surface antigen) Cristobal Kearns Other [facility] Other 07-19-2017 influenza virus vaccine, split virus (incl. purified surface antigen) Cristobal Kearns Other [facility] Other 10-09-2016 influenza virus vaccine, split virus (incl. purified surface antigen) Cristobal Kearns Other [facility] Other 10-18-2015 influenza virus vaccine, split virus (incl. purified surface antigen) Cristobal Kearns Other [facility] Other 09-20-2015 pneumococcal conjuga te vaccine, 13 valent Cristobal Kearns Other [facility] Other 11-07-2012 pneumococcal polysaccharide vaccine, 23 valanya Kearns Other [facility] Other Payers Date Payer Category Payer Private Health Insurance [id number] 1950 Unknown [id number] 2.16.8 40.1.503282.3.579.2.647 1950 Unknown [id number] 2.16.84 0.1.634330.3.579.2.593 1950 Unknown [id number] 2.16.84 0.1.994083.3.579.2.593 1950 Unknown [id number] 2.16.84 0.1.213080.3.579.2.593 1950 Unknown [id number] 2.16.84 0.1.759388.3.579.2.593 1950 Unknown [id number] 2.16.84 0.1.672187.3.579.2.593 1950 Unknown [id number] 2.16.84 0.1.942031.3.579.2.593 1950 Unknown [id number] 2.16.84 0.1.953026.3.579.2.593 1950 Unknown [id number] 2.16.84 0.1.160842.3.579.2.593 1948 Unknown [id number] 2.16.84 0.1.163155.3.579.2.593 1948 Unknown [id number] 2.16.8 40.1.973811.3.579.2.727 1950 Unknown [id number] 2.16.8 40.1.665475.3.579.2.727 1950 Unknown [id number] 2.16.8 40.1.686866.3.579.2.727 1950 Unknown [id number] 2.16.8 40.1.052397.3.579.2.727 1950 Unknown [id number] 2.16.8 40.1.514848.3.579.2.727 1950 Unknown [id number] 2.16.8 40.1.841260.3.579.2.727 1950 Unknown [id number] 2.16.8 40.1.664997.3.579.2.727 1950 Unknown [id number] 2.16.8 40.1.918912.3.579.2.727 1950 Unknown [id number] 2.16.8 40.1.334672.3.579.2.727 Social History Date Type Detail Facility Start: 10-05-2021 Tobacco smoking status Ex-smoker (fi nding) [facility] Comment on above: Quit in [address] Sex [address] At Male [facility] Medical Equipment Procedure Code Equipment Code Equipment Origin al Text Equipment Identifier Dates Start: 04-09-2023 Functional Status Date Assessment Result Facility 05-18-2024 Functional Status N/A [facility] 03-27-2024 Functional Status N/A [facility] 02-14-2024 Functional Status N/A [facility] 01-15-2024 Functional Status N/A [facility] 12-16-2023 Functional Status N/A [facility] 11-08-2023 Functional Status N/A [facility] 09-06-2023 Functional Status N/A [facility] 08-06-2023 Functional Status N/A [facility] 07-02-2023 Functional Status N/A [facility] 01-11-2023 Functional Status N/A [facility] 12-12-2022 Functional Status N/A [facility] 11-08-2022 Functional Status N/A [facility] Clinical Notes 01-08-2023 to 08-13-2024 Note Date & Type Note Facility 08-13-2024 Note Prostate US Date/Time: 08/13/2024 2:01 PM Performed by: Diony Ariza MD Authorized by: Diony Ariza MD Procedure discussed: discussed risks, benefits and alternatives Vacuum Pan Tender present: no Timeout: timeout called immediately prior [...] to discuss the results of the procedure, aids counselor and answer any questions. All of [...] choice Check PVR 08/13/24 - 80 cc [facility] 08-03-2024 Note Consultation Note Patient: TRAE PINEDA [...] he was driving back and forth to [place] for his . She ended up passing [...] states that he is now trying to [place]on back to do things to help take [...] and some did not. He has taken fdmg-uqs-umgoibf medications again with some improvement not enough. [...] BID, # 120 tab(s), Refills(s) 0, Pharmacy: [facility]/pharmacy #[id number], 183, cm, 05/18/24 13:21:00 EDT, Height/Length Dosing, 107, kg, 05/18/24 13:21:00 EDT, Weight Dosing baclofen 5 mg oral tablet: 5 mg = 1 tab(s), Oral, TID, PRN Spasm, # 30 tab(s), Refills(s) 0, Pharmacy: [facility]/pharmacy #[id number], 183, cm, 02/14/24 13:46:00 EDT, Height/Length Dosing, 110.3, kg, 02/14/24 13:46:00 EDT, Weight Dosing gabapentin 300 mg Cap: 300 mg = 1 cap(s), Oral, Once a day (at bedtime), # 30 cap(s), Refills(s) 1, Pharmacy: [facility]/pharmacy #[id number], 183, cm, 12/16/23 10:37:00 EST, Height/Length [...] History of heart attack / SNOMED CT 0470261913 / Confirmed Acute angina / SNOMED CT 006889139 / Confirmed Irregular heart beat / SNOMED CT 561881635 / Confirmed HTN (hypertension) / SNOMED CT 8793859783 / Confirmed High cholesterol / SNOMED CT 52030514 / Confirmed H/O heart bypass surgery / SNOMED CT 393469365 / Confirmed Apnea, sleep / SNOMED CT 736561054 / Confirmed CPAP (continuous positive airway pressure) dependence / SNOMED CT 4612864173 / Confirmed Enlarged prostate / SNOMED CT 715292392 / Confirmed Chronic kidney disease (CKD) / SNOMED CT 7222383658 / Confirmed Diabetes / SNOMED CT 245012497 / Confirmed Carpal tunnel syndrome / SNOMED CT 31030731 / Confirmed Anemia / SNOMED CT 640790228 / Confirmed Arthritis, rheumatoid / SNOMED CT 952205444 / Confirmed Obesity / ICD-9-CM 278.00 / Possible Obesity / SNOMED CT [id number] / Possible Objective Vital Signs 08/03/2024 14:37 [...] right straight leg raise Integumentary: Warm, Dry, Rule. Neurologic: Alert, Oriented. (more content not included)... 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 Suprapubic discomfort [...] calories Type 2 diabetes mellitus with hyperglycemia ([facility]) Lumbar stenosis with neurogenic claudication Type 2 diabetes mellitus with diabetic polyneuropathy ([facility]) Dysuria Cystitis cystica Incomplete bladder [...] bacterial prostatitis COPD (chronic obstructive pulmonary disease) ([facility]) Coronary artery disease, non-occlusive Depression Diabetes mellitus ([facility]) Erectile dysfunction Hyperlipemia Hypertension Hypogonadism [...] Drug use: Never Allergies Allergies Allergen Reactions Mfwmecq-Dop-Cvq Reductase Inhibitors Other Hydralazine Palpitations Other reaction(s): [...] Rfl: gabapentin (N (more content not included)... [facility] 05-19-2024 Note ------ Attestation signed by Diony [...] with frequency AUA symptom score is 15 tsfqjxt-es-ielh is 4 Incomplete bladder emptying After urinating, [...] with frequency AUA symptom score is 15 mklhybd-yp-tsjk is 4 Incomplete bladder emptying After urinating, patient reports that he often feels as if he is not emptying completely. Hypogonadism Testosterone levels 518 on 03/04/24 444 on 11/26/23 374 on 08/30/23 Patient does report a history of chronic back pain (more content not included)... [facility] 05-18-2024 Evaluation + Plan note Extrac priscilla [...] PM Scheduled Provider:Margareth De La Cruz PA-C Location:.[facility] Appointment Type:Pain Management - Follow Up (FT) [facility]07-01-2024 NoteConsultation Note Patient: TRAE PINEDA Age: [...] BID, # 120 tab(s), Refills(s) 0, Pharmacy: [facility]/pharmacy #[id number], 183, cm, 05/18/24 13:21:00 EDT, Height/Length Dosing, 107, kg, 05/18/24 13:21:00 EDT, Weight Dosing baclofen 5 mg oral tablet: 5 mg = 1 tab(s), Oral, TID, PRN Spasm, # 30 tab(s), Refills(s) 0, Pharmacy: [facility]/pharmacy #[id number], 183, cm, 02/14/24 13:46:00 EDT, Height/Length Dosing, 110.3, kg, 02/14/24 13:46:00 EDT, Weight Dosing gabapentin 300 mg Cap: 300 mg = 1 cap(s), Oral, Once a day (at bedtime), # 30 cap(s), Refills(s) 1,Pharmacy: [facility]/pharmacy #[id number], 183, cm, 12/16/23 10:37:00 EST, Height/Length [...] History of heart attack / SNOMED CT 0149257842 / Confirmed Acute angina / SNOMED CT 548687894 / Confirmed Irregular heart beat / SNOMED CT 250423484 / Confirmed HTN (hypertension) / SNOMED CT 2404142488 / Confirmed High cholesterol / SNOMED CT 83495275 / Confirmed H/O heart bypass surgery / SNOMED CT 572769709 / Confirmed Apnea, sleep / SNOMED CT 131360616 / Confirmed CPAP (continuous positive airway pressure) dependence / SNOMED CT 0813773119 / Confirmed Enlarged prostate / SNOMED CT 384910794 / Confirmed Chronic kidney disease (CKD) / SNOMED CT 6130367826 / Confirmed Diabetes / SNOMED CT 584435332 / Confirmed Carpal tunnel syndrome / SNOMED CT 18514937 / Confirmed Anemia / SNOMED CT 784968718 / Confirmed Arthritis, rheumatoid / SNOMED CT 805021827 / Confirmed Obesity / ICD-9-CM 278.00 / Possible Obesity / SNOMED CT [id number] / Possible Objective Vital Signs 05/18/2024 13:07 [...] right straight leg raise Integumentary: Warm, Dry, Rule. Neurologic: Alert, Oriented. Psychiatric: Cooperative, Appropriate mood [...] activities affects his ed (more content not included)...[facility]Result Comment: Electronically Signed By: Jono AGOSTO, Margareth\.br\Date and Time Signed: 05/18/24 13:44 [id number] NoteDiagnosis: Benign prostatic hyperplasia with incomplete bladder [...] flow void Suggestive of outlet obstruction Incomplete voiding.[facility]06-24-2024 NoteSubjective Patient ID: Trae Pineda is a 74 y.o. male who presents for Follow-up (uds). [facility] 05/11/2024 Urodynamics Procedure Pt presents for office [...] Dx: Urge Urinary Incontinence, post-void dribbling Attending: [employer] School Coordinator: Charity Procedure: UroFLow/CMG/EMG/PVR Anesthesia: None Indications: Urge [...] file. Morenita Larsen, ANGIE Urology/Renal Transplant [facility] 03-27-2024 Evaluation + Plan noteExtracted from: [...] PM Scheduled Provider:Margareth De La Cruz PA-C Location:[facility] Appointment Type:Pain Management - Follow Up (FT) [facility]04-30-2024 NoteUrology Clinic H&P Dr. Diony Ariza [...] with frequency AUA symptom score is 15 rljtswn-iu-ucow is 4 Incomplete bladder emptying After urinating, [...] came back benign with (more content not included)...[facility]03-29-2024 Evaluation + Plan noteExtracted from: Title:Pain Managment [...] Scheduled Provider:Margareth De La Cruz PA-C Location:.Pain [facility] Appointment Type:Pain Management - Follow Up (FT) [facility]2024 Note[place] Cardiology - [facility] Subjective Trae Pineda is a 73 y.o. year old male patient being seen for 6 mo follow up CAD, hypertension, hyperlipidemia, and carotid artery stenosis. Had carotid US at [facility] a few weeks ago. 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 His physical activ (more content not included)...[facility]02-28-2024 [id number] NoteDiagnosis: M54.16, lumbar radiculopathy Procedure: L5/S1 lumbar [...] the epidural space was confirmed using the oxfb-oo-lofvewivti technique and 2 cc of air. Injection [...] procedure, and agrees to continue currently prescribed/recommended therapies.[facility] Comment on above:Result Comment: Electronically Signed By: John Cannon DO\.br\Date and Time Signed: 01/15/24 14:23 [id number] Evaluation + Plan note Extracted from: Title:L5/S1 [...] the epidural space was confirmed using the nipo-xu-ypdcultlgt technique and 2 cc of air. Injection [...] Scheduled Provider:Margareth De La Cruz PA-C Location:.Pain [facility] Appointment Type:Pain Management - Follow Up (FT) [facility]01-29-2024 Evaluation + Plan noteExtracted from: Title:Pain [...] follow-up as above-mentioned LEONOR score: 48% [facility]01-23-2024 NoteUrology Clinic H&P Dr. Diony Ariza [...] bacterial prostatitis COPD (chronic obstructive pulmonary disease) ([facility]) Coronary artery disease, non-occlusive Depression Diabetes mellitus ([facility]) Erectile dysfunction Hyperlipemia Hypertension Hypogonadism in male Kidney stone Sleep apnea CPAP DEPENDENT Past Surgical History: Past Surgical History: Procedure Laterality (more content not included)...[facility]01-02-2024 Evaluation note* Encounter Date Diagnosis Assessment Notes Treatment Notes Treatment Clinical Notes Nov, Pulmonary nodule (ICD-10 - R91.1) CT: RML 4mm nodule - 02/2022, CT: RML 7mm nodule - 02/2023 CT: stable - 08/2023Nov, Right carotid bruit (ICD-10 - R09.89) Carotid US: 50-69% stenosis - 2019, Carotid US: < 50% ICA w/ 75% right carotid bulb - 08/2021 [facility] Other 12-28-2023 Evaluation note* Encounter Date Diagnosis Assessment Notes Treatment Notes Treatment Clinical Notes Oct, 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12-21-2023 NotePrior auth obtained for [facility] TRUXSH23 - [place] APPROVED 11/07/2023. STATUS APPROVED. COVERAGE START DATE 10/08/2023 END DATE 11/06/2024.[facility]12-11-2023 NotePatient: Trae Pineda Procedure Summary Date: 10/28/23 Room / Location: [facility] OPERATING ROOM 07 / [facility] Operating Room Anesthesia Start: 735 Anesthesia [...] PACU per anesthesia protocol. No notable events documented.[facility]12-11-2023 Note Patient: Trae Pineda Procedure Summary Date: 10/28/23 Room / Location: [facility] OPERATING ROOM 07 / [facility] Operating Room Anesthesia Start: 735 Anesthesia [...] [facility] Patient: Trae E Edwin Procedure Information Date/Time: 12/11/23 0730 Procedure: CYSTOURETHROSCOPY, WITH RETROGRADE PYELOGRAM (Bilateral) - C-ARM Location: [facility] OPERATING ROOM 07 / [facility] Operating Room Surgeons: Diony Ariza MD Relevant Problems Cardio tolerates >4 METs without chest pain, SOB (+) Benign essential hypertension (+) Coronary arteriosclerosis in [place] artery (+) Hypertensive disorder Endo (+) Type [...] discussed with attending and resident. Additional Equipment RequestsW[facility]oster [facility]12-[facility]-2023 Note History and Physical Patient: Trae [...] bacterial prostatitis COPD (chronic obstructive pulmonary disease) ([facility]) Coronary artery disease, non-occlusive Depression Diabetes mellitus ([facility]) Erectile dysfunction Hyperlipemia Hypertension Hypogonadism [...] THE MORNING 10/01/23 Moises Aguirre NP Allergies: Hdsaqqi-cvp-fbb reductase inhibitors and Hydralazine Social History: Social [...] Hypogonadism Plan: OR tod (more content not included)...[facility] 09-06-2023 Evaluation + Plan noteExtracted from: [...] AM Scheduled Provider:Margareth De La Cruz PA-C Location:[facility] Appointment Type:Pain Management - Follow Up (FT) [facility]10-18-2023 Evaluation note* Encounter Date Diagnosis Assessment Notes Treatment Notes Treatment Clinical Notes Aug, Pulmonary nodule (ICD-10 - R91.1) CT: RML 4mm nodule - 02/2022, CT: RML 7mm nodule - 02/2023 CT: stable - 08/2023 [facility] Other [id number] NoteUrology Clinic H&P Dr. Diony Ariza MD [...] today as he got it done in [place] but it was a send out lab. [...] TAKE 1 TAB (more content not included)... [facility]10-04-2023 Evaluation note* Encounter Date Diagnosis Assessment Notes Treatment Notes Treatment Clinical Notes Aug, Pulmonary nodule (ICD-10 - R91.1) [facility] Other 09-19-2023 Note [id number]:127[facility] 07-02-2023 Evaluation + Plan noteExtracted [...] sooner if necessary. LEONOR score: 44% [facility]05-02-2023 Evaluation note* Encounter Date Diagnosis Assessment Notes Treatment Notes Treatment Clinical Notes March, COVID-19 (ICD-10 - U07.1) Instructed to use Robitussin or Mucinex for cough, saline or Flonase NS for congestion, Tylenol for pain and fever. March, Chronic bronchitis, mucopurulent (ICD-10 - J41.1) Mucinex DM as needed. Push fluids [facility] Other 04-20-2023 Evaluation note* Encounter Date Diagnosis Assessment Notes Treatment Notes Treatment Clinical Notes Feb, Pulmonary nodule (ICD-10 - R91.1) CT: RML 4mm nodule - 02/2022 CT: RML 7mm nodule - 02/2023 [facility] Other 04-11-2023 Evaluation note* Encounter Date Diagnosis Assessment Notes Treatment Notes Treatment Clinical Notes Feb, Pulmonary nodule (ICD-10 - R91.1) [facility] Other 02-24-2023 Evaluation + Plan noteExtracted from: [...] a repeat injection. LEONOR score: 19 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 Future Appointments Appointment Date:01/11/2023 01:45:00 PM Scheduled Provider:Margareth De La Cruz PA-C Location:FT.[facility] [place] Appointment Type:Pain Management [facility] Future Appointments Appointment Date:09/06/2023 11:00:00 AM Scheduled Provider:Margareth De La Cruz PA-C Location:FT.[facility] [place] Appointment Type:Pain Management 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 No data available for this section [facility] Summary Purpose Family History No Family [...] DATE CREATED AUTHOR AUTHOR'S ORGANIZ ATION 03/11/2023 [facility] DATE CREATED AUTHOR AUTHOR'S ORGANIZ ATION 08/05/2024 [facility] DATE CREATED AUTHOR AUTHOR'S ORGANIZ ATION 08/17/2024 [facility] Patient Care team informatio n (unrecognized section and content) Personnel Name: CRISTOBAL KEARNS DO Address: Address: [address] [place] [address] Personnel Name: CRISTOBAL KEARNS DO Address: Address: [address] [place] [address] Personnel Name: CRISTOBAL KEARNS DO Address: Address: [address] [place], [place] [address], [place] [address]- [place] Personnel Name: CRISTOBAL KEARNS DO Address: Address: [address] [facility], [place] [address]- [place] Personnel Name: CRISTOBAL KEARNS DO Address: Address: [address] [facility], [place] [address]- [place] Personnel Name: CRISTOBAL KEARNS DO Address: Address: [address] [facility], [place] [address]- [place] Personnel Name: CRISTOBAL KEARNS DO Address: Address: [address] [facility], [place] [address]- [place] Personnel Name: CRISTOBAL KEARNS DO Address: Address: [address] [facility], [place] [address]- [place] Personnel Name: CRISTOBAL KEARNS DO Address: Address: [address] [facility], [place] [address]- [place] Personnel Name: CRISTOBAL KEARNS DO Address: Address: [address] [facility], [place] [address]- [place] Personnel Name: CRISTOBAL KEARNS DO Address: Address: [address] [facility], [place] [address]- [place] Personnel Name: CRISTOBAL KEARNS DO Address: Address: [address] [facility], [place] [address]- [place] Personnel Name: CRISTOBAL KEARNS DO Address: Address: [address] [facility], [place] [address]- REASON FOR VISIT (unrecogniz ed section and content) 4 MONTH FOLLOW UPBS [place] T scanNo InformationCT resultscovid - paxlovidLab Resultsrepeat [...] BE BASED ON THE PRIMARY CLINICAL RECORDS. [facility] [employer] [facility]. provides no warranty or guarantee of the accuracy or completeness of information in this document.
--- NOTE | 2024-08-20 08:15 | NM_ITS ---
Patient Name: TRAE MONROE MR#: [id number] : 1950 Exam Date: 08/20/2024 Ordering Doctor: DR. ENRRIQUE OAKLEY M.D. CORRECTION Corrected on: 08/28/2024; RADIOLOGY REPORT PROCEDURE: NM STEFANI PERF SPECT REST STR COMPARISON: None. INDICATIONS: DYSPNEA ON EXERTION, CORONARY ARTERY DISEASE TECHNIQUE: Exam Description: Stress/Rest one day protocol gated SPECT Rest Imagin.2 mCi Tc-99m Cardiolite IV on 08/20/2024 Stress Imaging 31.0 mCi Tc-99m Cardiolite IV on 08/20/2024 Exercise Protocol: 0.4 mg Lexiscan given IV Heart Rate (bpm): Rest: 55 Max: 72 PMHR: 50 Blood Pressure: Rest: 136/76 Max: 136/76 Symptoms: Rest and peak stress ECG findings were pending and the exercise portion of the study was pending per attending physician Dr. PAUL . For more details please see separate cardiac stress test report. FINDINGS: QUALITY OF STUDY: PERFUSION DEFECT: LOCATION: Basal inferior. Basal inferolateral. Mid-anterior. Mid-inferior. Mid-inferolateral. Apical lateral. SIZE: Large (5 or more segments). SEVERITY: Moderate. TYPE: Persistent. WALL MOTION: Mild hypokinesis: LV SIZE: Enlarged; EDV 127 mL. TID / TCD: None; 0.8 LVEF: Abnormal. Calculated EF 51%. SUMMARY: Myocardial perfusion imaging study has ABNORMAL findings. CONCLUSION: 1. Fixed defect in the inferior wall extending into the lateral wall and septum. RCA distribution 2. Reversible ischemia 3. Low left ventricular ejection fraction of 51% 4. Mild dilation of the left ventricle with end-diastolic volume 127 milliliters 5. Pending exercise test Dictated by: Ceferino Lewis MD on 08/20/2024 at 14:24 Approved by: Ceferino Lewis MD on 08/20/2024 at 14:32 Dictated by: Ceferino Lewis MD on 08/28/2024 at 10:24 Approved by: Ceferino Lewis MD on 08/28/2024 at 10:24
[2024-08-20] MEDS: REGADENOSON 0.4 MG/5 ML SYRINGE IV (10:13)
--- NOTE | 2024-08-20 10:14 | PC.NURSE ---
Nursing Note Cardiac Stress Test Reviewed: Medication, allergies and patient history reviewed. Stress Test: [ x] Patient tolerated stress test well. [ ] Patient unable to tolerate walking on treadmill. Switched to Lexiscan stress test. [x ] No chest pain noted per patient [ ] Chest pain that resolved prior to leaving stress lab. [ x] No dyspnea noted. [ ] Dyspnea that resolved prior to leaving stress lab. [ x] Patient left stress lab asymptomatic and hemodynamically stable. [ ] Patient taken to the Emergency Room due to non-resolving symptoms following stress test. [ ] Patient achieved target heart rate. [ ] Patient unable to achieve target heart rate. [ ] Aminophylline administered as reversal agent to Lexiscan (Regadenoson). [ ] Nitro administered. Nursing Comments:
== END 2024-08-20 07:55 | disposition home or self-care (01) ==
PROVIDERS: PCP Internal Medicine; Visit Provider Internal Medicine Cardiovascular Disease
DX: R06.09 Other forms of dyspnea (principal)
CPT/HCPCS: 78452; 93017; A9500; J2785

== ENCOUNTER 2024-09-10 13:43 | Outpatient (OUT) | payer MEDICARE, SELFPAY ==
--- NOTE | 2024-09-10 13:47 | CT_ITS ---
[address] [address] Patient Name: TRAE MONROE MRN: [id number] date: 1950 Sex: M Assigned Patient Location: CT Current Patient Location: Accession/Order Number: [id number] Exam Date: 09/10/2024 13:55 Report Date: 09/12/2024 08:08 At the request of: ARIAN KEARNS Procedure: CT chest wo con EXAMINATION: CT chest wo con HISTORY: Lung Nodule follow-up COMPARISON: CT chest 09/04/2023 TECHNIQUE: Axial, Coronal, and Sagittal images were created without the administration of IV contrast material. Dose reduction techniques were achieved by using automated exposure control and/or adjustment of mA and/or kV according to patient size and/or use of iterative reconstruction technique. FINDINGS: LUNGS: Stable 7 mm nodule within right middle lobe abutting the anterior pleura. Small calcified granuloma within left lower lobe superior segment. Mild emphysematous changes. PLEURA: No mass, effusion, or pneumothorax. VASCULATURE: No abnormality. JORDEN: Calcified left hilar lymph nodes suggestive chronic granulomatous disease. MEDIASTINUM: No mass or pathologic adenopathy. CARDIAC: No enlargement, pericardial thickening, or pericardial effusion. Coronary Artery calcifications: Coronary calcifications are heavy. AORTA: Ascending aorta is upper limits of normal diameter, 3.9 cm. CHEST WALL: No mass or axillary adenopathy BONES: No bone lesion or fracture. LIMITED ABDOMEN: 3.4 cm stone within gallbladder. Limited images of the upper abdomen. OTHER: Negative. CT/CT chest wo con IMPRESSION: 1. Lung-RADS 2- Benign Appearance or Behavior. Nodules with a very low likelihood of becoming a clinically active cancer due to size or lack of growth. Follow-up CT Chest in 1 year. 2. Cholelithiasis. Electronically authenticated by: TYRONE LOVETT Date: 09/12/2024 08:08
== END 2024-09-10 13:44 | disposition home or self-care (01) ==
LOC: CT 13:43
PROVIDERS: PCP Internal Medicine; Visit Provider Internal Medicine
DX: R91.1 Solitary pulmonary nodule (principal)
CPT/HCPCS: 71250

== ENCOUNTER 2024-10-26 09:09 | Outpatient (OUT) | payer MEDICARE, SELFPAY ==
[2024-10-26 09:37] LABS: Basophils Absolute Auto 0.1 10^3/uL (0.0-0.1); Basophils Percent Auto 1.4 % (0.2-2.0); Eosinophils Absolute Auto 0.5 10^3/uL (0.0-0.7); Eosinophils Percent Auto 7.4 % (0.9-7.0); Hematocrit 38.2 % (42.0-54.0); Hemoglobin 12.5 g/dL (14.0-18.0); Immature Granulocytes Abs Auto 0.02 10^3/uL (0.00-0.03); Immature Granulocytes Pct Auto 0.3 % (0.0-0.5); Lymphocytes Absolute Auto 2.4 10^3/uL (1.2-3.8); Lymphocytes Percent Auto 34.1 % (20.5-60.0); Mean Corpuscular HGB Conc 32.7 g/dL (29.9-35.2); Mean Corpuscular Hemoglobin 30.7 pg (25.9-34.0); Mean Corpuscular Volume 93.9 fL (80.0-94.0); Mean Platelet Volume 11.3 fL (9.5-13.5); Monocytes Absolute Auto 0.7 10^3/uL (0.3-0.8); Monocytes Percent Auto 10.4 % (1.7-12.0); Neutrophils Absolute Auto 3.2 10^3/uL (1.4-6.5); Neutrophils Percent Auto 46.4 % (43.0-75.0); Platelet Count 155 10^3/uL (150-450); Red Blood Count 4.07 10^6/uL (4.70-6.10); Red Cell Distribution Width 13.3 % (11.0-15.0); White Blood Count 6.9 10^3/uL (4.0-11.0)
[2024-10-26 10:11] LABS: Prostate Specific Antigen Scrn 0.81 ng/mL (<=4.00)
[2024-10-27 04:07] LABS: Sex Horm Binding Glob, Serum 33.8 nmol/L (19.3-76.4)
[2024-10-29 11:09] LABS: Free Testosterone(Direct) 3.6 pg/mL (6.6-18.1); Testosterone 263 ng/dL (264-916)
== END 2024-10-26 09:10 | disposition home or self-care (01) ==
PROVIDERS: PCP Internal Medicine
DX: N40.1 Benign prostatic hyperplasia with lower urinary tract symptoms (principal); R39.14 Feeling of incomplete bladder emptying; N41.1 Chronic prostatitis; R29.1 Meningismus; N52.9 Male erectile dysfunction, unspecified; R33.9 Retention of urine, unspecified; Z12.5 Encounter for screening for malignant neoplasm of prostate
CPT/HCPCS: 36415; 84270; 84402; 84403; 85025; G0103

== ENCOUNTER 2024-11-17 10:24 | Outpatient (OUT) | payer MEDICARE, SELFPAY ==
[2024-11-17 11:23] LABS: Estimated Average Glucose 154 mg/dL
[2024-11-17 11:41] LABS: Percent Iron Saturation 20.5 %
[2024-11-17 12:06] LABS: Basophils Absolute Auto 0.1 10^3/uL (0.0-0.1); Basophils Percent Auto 1.9 % (0.2-2.0); Eosinophils Absolute Auto 0.4 10^3/uL (0.0-0.7); Hemoglobin 12.5 g/dL (14.0-18.0); Immature Granulocytes Abs Auto 0.02 10^3/uL (0.00-0.03); Immature Granulocytes Pct Auto 0.3 % (0.0-0.5); Lymphocytes Absolute Auto 1.8 10^3/uL (1.2-3.8); Lymphocytes Percent Auto 25.9 % (20.5-60.0); Mean Corpuscular HGB Conc 32.9 g/dL (29.9-35.2); Mean Corpuscular Hemoglobin 30.3 pg (25.9-34.0); Mean Corpuscular Volume 92.2 fL (80.0-94.0); Mean Platelet Volume 11.6 fL (9.5-13.5); Monocytes Absolute Auto 0.7 10^3/uL (0.3-0.8); Monocytes Percent Auto 9.9 % (1.7-12.0); Neutrophils Absolute Auto 3.9 10^3/uL (1.4-6.5); Platelet Count 173 10^3/uL (150-450); Red Blood Count 4.12 10^6/uL (4.70-6.10); Red Cell Distribution Width 13.6 % (11.0-15.0)
[2024-11-18 04:06] LABS: Vitamin B12 462 pg/mL (232-1245)
== END 2024-11-17 10:25 | disposition home or self-care (01) ==
LOC: LAB 10:26
PROVIDERS: PCP Internal Medicine; Visit Provider Internal Medicine
DX: D64.9 Anemia, unspecified (principal); E11.65 Type 2 diabetes mellitus with hyperglycemia; Z79.4 Long term (current) use of insulin
CPT/HCPCS: 36415; 82607; 82728; 82746; 83036; 83540; 83550; 85025

== ENCOUNTER 2024-12-28 14:50 | Outpatient (OUT) | payer MEDICARE, SELFPAY ==
--- OUTSIDE RECORDS SUMMARY | 2024-12-28 15:05 | XMS_ITS | CCD ---
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 Role Phone LUPIS DENNIS Admitting Unavailable LUPIS DENNIS Attending Unavailable SOM, CRISTOBAL Referring Unavailable BALL, CRISTOBAL Primary Care Unavailable SOM, CRISTOBAL Primary Care Physician [phone] Som, Cristobal Unavailable SOM, DR DON Admitting [...] Unavailable PAY ., DR JONES Attending Unavailable KATKAYLA PIERCE Consulting Unavailable MISC, DR MOSLEY Admitting Unavailable [...] MOSLEY Consulting Unavailable DIONY ARIZA Attending Unavailable SINDHWANI, DIONY Attending Unavailable SINDHWANI, DIONY Attending Unavailable SINDHWADIONY PANTOJA Attending Unavailable SAVZYANMORENITA Attending Unavailable MOUKARBEL, MOI Attending Unavailable MOUKARBEL, MOI Referring Unavailable MOUKARBEL, MOI Attending Unavailable SINDHWANI, DIONY Attending Unavailable ADIN, SAMAR Attending Unavailable BALL, CRISTOBAL Referring Unavailable De La Cruz, Margareth Attending Unavailable De La Cruz, PA-Reid Margareth Admitting Unavailabl e De La Cruz, Margareth Attending Unavailable BALL, CRISTOBAL Referring Unavailable De La Cruz, Margareth Admitting Unavailable BALL, CRISTOBAL Referring Unavailable John Cannon Attending Unavailable John Cannon Admitting Unavailable John Cannon Referring Unavailable John Cannon Attending Unavailable John Cannon Admitting Unavailable John Cannon Referring Unavailable John Cannon Attending Unavailable John Cannon Referring Unavailable John Cannon Attending Unavailable John Cannon Admitting Unavailable De La Cruz, Margareth Attending Unavailable BALL, CRISTOBAL Referring Unavailable De La Cruz, Margareth Admitting Unavailable De La Cruz, Margareth Admitting Unavailable BALL, CRISTOBAL Referring Unavailable De La Cruz, Margareth Attending Unavailable BALL, CRISTOBAL Referring Unavailable De La Cruz, Margareth Attending Unavailable BALL, CRISTOBAL Referring Unavailable De La Cruz, Margareth Attending Unavailable De La Cruz, PA-C Margareth Admitting Unavailabl e Allergies Allergy Classification Reported Allergen(s) Allergy Type Date of Onset Reaction(s) Facility (3 sources) black walnut pollen extract; Translations: [QNAEUIV-YCR-AGS REDUCTASE INHIBITORS] Drug Allergy 01-27-2013 [facility] Repository (20 sources) HMG-CoA reductase inhibitor; Translations: [statins] Drug allergy muscle ache [facility] (20 sources) hydrALAZINE; Translations: [hydralazine] Drug Allergy 07-25-2022 palpatations [facility] (3 sources) pregabalin; Translations: [pregabalin] Drug Allergy Swelling [facility] Medications Current Medications Medication Drug Class(es) Dates Sig (Normalized) Sig (Original) Tylenol (20 sources) Start: 03-25-2013 Tylenol 500 mg , [...] Alpha Lipoic Acid 600 mg oral capsule (19 sources) Start: 10-05-2021 take 1 capsule by [...] Date: 05/18/20 Status: Ordered Start: 05-18-2020 take 20 mg by mouth once daily Norvasc 20 mg, Oral, Daily, Refills(s) 0 Start Date: 05/18/20 Status: Ordered Start: 05-18-2020 take 10 mg by mouth once daily Norvasc 10 mg, Oral, Daily, Refills(s) 0 Start Date: 05/18/20 Status: Ordered Antibiotic (8 sources) Start: 09-06-2023 Antibiotic Antibiotic Start Date: 09/06/23 Status: Ordered ascorbic acid 500 mg oral tablet (18 sources) Vitamin C Start: 09-06-2023 take 500 [...] day Active baclofen 5 mg oral tablet (9 sources) gamma-Aminobutyric Acid-ergic Agonist Start: 02-14-2024 take 1 tablet by mouth three times daily as needed for muscle spasms baclofen 5 mg oral tablet 5 mg = 1 tab(s), Oral, TID, PRN Spasm, # 30 tab(s), Refills(s) 0, Pharmacy: [facility]/pharmacy #[id number], 183, cm, 02/14/24 13:46:00 EDT, Height/Length Dosing, 110.3, kg, 02/14/24 13:46:00 EDT, Weight Dosing Start Date: 02/14/24 Status: Ordered Calcium + D 315-200 MG-UNIT (15 sources) take 1 tablet by mouth twice daily Calcium + D 315-200 MG-UNIT 1 tablet Orally Twice a day Active calcium carbonate 1500 mg oral tablet (19 sources) Start: 05-18-2020 take 1 tablet by mouth once daily calcium (as carbonate) 600 mg oral tablet 600 mg = 1 tab(s), Oral, Daily, Refills(s) 0 Start Date: 05/18/20 Status: Ordered [facility] - (5 sources) [facility] - as directed Orally Active cyclobenzaprine hydrochloride 10 mg oral tablet (4 sources) Muscle Relaxant Start: 11-08-2022 take 1 tablet by mouth three times daily as needed for muscle spasms cyclobenzaprine 10 mg Tab 10 mg = 1 tab(s), Oral, TID, PRN for spasm, # 30 tab(s), Refills(s) 0, Pharmacy: [facility]/pharmacy #[id number], 182.9, cm, 11/08/22 15:17:00 EST, Height/Length Dosing, 113.4, kg, 12/29/21 13:07:00 EST, Weight Dosing Start Date: 11/08/22 Status: Ordered diclofenac sodium 10 mg/ml topical cream (4 sources) Nonsteroidal Anti-inflammatory Drug Start: 10-05-2021 diclofenac sodium 1% topical cream Refill(s) 0 Start Date: 10/05/21 Status: Ordered dutasteride 0.5 mg oral capsule (4 sources) 5-alpha Reductase Inhibitor Start: 10-13-2024 take 1 capsule by mouth once daily in the morning dutasteride 0.5 mg Cap 0.5 mg = 1 cap(s), Oral, Daily, TAKE 1 CAPSULE BY MOUTH IN THE MORNING Start Date: 10/13/24 Status: Ordered 1 ml evolocumab 140 mg/ml [...] 05/18/20 Status: Ordered FreeStyle Singh 14 Day [place] - (15 sources) FreeStyle Singh 14 Day [place] - as directed Active FreeStyle Singh 14 Day Sensor - (15 sources) FreeStyle Singh 14 Day Sensor - USE TO TEST BLOOD SUGAR DAILY for 28 Active FreeStyle Singh 14 Day Sensor - as directed Active gabapentin 300 mg oral capsule (12 sources) Anti-epileptic Agent Start: 02-14-2024 take 1 capsule by mouth twice daily gabapentin 300 mg Cap 300 mg = 1 cap(s), Oral, BID, # 60 cap(s), Refills(s) 0, Pharmacy: [facility]/pharmacy #[id number], 183, cm, 02/14/24 13:46:00 EDT, Height/Length Dosing, 110.3, kg, 02/14/24 13:46:00 EDT, Weight Dosing Start Date: 02/14/24 Status: Ordered Start: 12-16-2023 take 1 capsule by [facility] once daily at bedtime gabapentin 300 mg Cap 300 mg = 1 cap(s), Oral, Once a day (at bedtime), # 30 cap(s), Refills(s) 1, Pharmacy: [facility]/pharmacy #[id number], 183, cm, 12/16/23 10:37:00 EST, Height/Length Dosing, 102.3, kg, 12/16/23 10:37:00 EST, Weight Dosing Start Date: 12/16/23 Status: Ordered Start: 11-08-2022 take 1 capsule by [facility] at bedtime gabapentin 100 mg Cap 100 mg = 1 cap(s), Oral, Bedtime, # 30 cap(s), Refills(s) 0, Pharmacy: [facility]/pharmacy #[id number], 182.9, cm, 11/08/22 15:17:00 EST, Height/Length Dosing, 113.4, kg, 12/29/21 13:07:00 EST, Weight Dosing Start Date: 11/08/22 Status: Ordered insulin isophane / insulin, regular, human (20 sources) Insulin Start: 03-25-2013 Humulin 70/30 25-10 units, BIDAC, Refill(s) 0 Start Date: 03/25/13 Status: Ordered Start: 03-25-2013 Humulin 70/30 55-60 units, BIDAC, Refill(s) 0 Start Date: 5/8/13 Status: Ordered HumuLIN 70/30 (7 0-30) 100 UNIT/ML INJECT 60 UNITS UNDER THE SKIN BEFORE BREAKFAST AND EVENING MEAL Active HumuLIN 70/30 (7 0-30) 100 UNIT/ML as directed Subcutaneous Active Lisinopril (20 sources) Angiotensin Converting Enzyme Inhibitor Start: 03-25-2013 lisinopril 10 mg, Da hanna, Refills(s) 0 Start Date: 03/25/13 Status: Ordered Lisinopril 10 mg TAKE 1 TABLET DAILY Active loratadine 10 mg oral capsule (11 sources) Start: 08-03-2024 take 1 capsule by mouth once daily loratadine 10 mg oral capsule 10 mg = 1 cap(s), Oral, Daily, # 10 cap(s), Refills(s) 0 Start Date: 08/03/24 Status: Ordered take 1 tablet by aide th every twenty-four hours Loratadine 10 MG 1 tablet Orally Once a day Active Misc Medication (9 sources) Start: 08-03-2024 Misc Medicatio n CBD 250 Topical Cream, as needed Start Date: 08/03/24 Status: Ordered Start: 08-03-2024 Misc Medicatio n CBD Gummies Start Date: 08/03/24 Status: Ordered pregabalin 25 mg oral capsule (5 sources) Start: 10-14-2024 take 1-2 capsules by mouth twice daily Lyrica 25 mg Cap See Instructions, 1-2 cap(s) Oral BID, # 120 cap(s), Refills(s) 0, Pharmacy: [facility]/pharmacy #[id number], 183, cm, 10/13/24 14:06:00 EST, Height/Length Dosing, 104.3, kg, 10/13/24 14:06:00 EST, Weight Dosing Start Date: 10/14/24 Status: Ordered Start: 08-10-2024 End: 10-09-2024 take 1-2 capsules by mouth twice daily Lyrica 25 mg Cap 1-2 cap(s), Oral, BID, X 30 day(s), # 120 tab(s), Refills(s) 1, Pharmacy: [facility]/pharmacy #[id number], 183, cm, 08/03/24 14:46:00 EDT, Height/Length Dosing, 104.5, kg, 08/03/24 14:46:00 EDT, Weight Dosing Start Date: 08/10/24 Stop Date: 10/09/24 Status: Ordered Start: 06-29-2024 take 1-2 capsules by mouth twice daily Lyrica 25 mg Cap 1-2 cap(s), Oral, BID, # 120 tab(s), Refills(s) 0, Pharmacy: [facility]/pharmacy #[id number], 183, cm, 05/18/24 13:21:00 EDT, Height/Length Dosing, 107, kg, 05/18/24 13:21:00 EDT, Weight Dosing Start Date: 06/29/24 Status: Ordered Start: 05-18-2024 take 1-2 capsules by mouth twice daily Lyrica 25 mg Cap 1-2 cap(s), Oral, BID, # 120 tab(s), Refills(s) 0, Pharmacy: [facility]/pharmacy #[id number], 183, cm, 05/18/24 13:21:00 EDT, Height/Length Dosing, 107, kg, 05/18/24 13:21:00 EDT, Weight Dosing Start Date: 05/18/24 Status: Ordered Start: 03-27-2024 take [address] [facility] twice daily pregabalin 25 mg Cap 25 mg = 1 cap(s), Oral, BID, # 60 cap(s), Refills(s) 0, Pharmacy: [facility]/pharmacy #[id number], 183, , 03/27/24 14:29:00 EDT, Height/Length Dosing, 107, kg, 03/27/24 14:29:00 EDT, Weight Dosing Start Date: 03/27/24 Status: Ordered PreserVision AREDS (19 sources) Start: 10-05-2021 take 1 capsule by mouth once daily PreserVision AREDS 1 cap(s), Oral, Daily, Refill(s) 0 Start Date: 10/05/21 Status: Ordered 12 hr ranolazine 500 mg extended release oral tablet (20 sources) Anti-anginal Start: 05-18-2020 take 500 mg by mouth twice daily Ranexa 500 mg, Oral, BID, Refills(s) 0 Start Date: 05/18/20 Status: Ordered tadalafil 5 mg oral tablet (18 sources) Phosphodiesterase 5 Inhibitor Start: 02-14-2024 take [...] 1 capsule Orally twice a day Active traMADol hydrochloride 50 mg oral tablet (1 source) Opioid Agonist Start: 12-07-2024 End: 12-12-2024 take 1 tablet by mouth every six hours as needed for pain traMADOL 50 mg Tab 50 mg = 1 tab(s), Oral, q6hr, PRN Pain, take as needed for post procedure pain, X 5 day(s), # 20 tab(s), Refills(s) 0, Pharmacy: [facility]/pharmacy #[id number], 183, cm, 12/07/24 7:32:00 EST, Height/Length Dosing, 104.3, kg, 10/13/24 14:06:00 EST, Weight Dosing Start Date: 12/07/24 Stop Date: 12/12/24 Status: Ordered Tylenol Extra Strength 500 MG (10 sources) [...] palpitations; Translations: [Palpitations] Episodic Chronic kidney disease (19 sources) Chronic kidney disease 05-18-2020 Chronic Chronic kidney disease (2 sources) Chronic kidney disease; Translations: [Chronic kidney disease, stage 3b] Onset: 06-04-2023 Chronic obstructive pulmonary disease and bronchiectasis (18 sources) Mucopurulent chronic bronchitis; Translations: [Mucopurulent chronic bronchitis] Onset: 11-27-2022 Chronic Coronary atherosclerosis and other heart disease (20 sources) Angina pectoris; Translations: [History of myocardial infarction] Onset: 11-27-2022 05-18-2020 Chronic Deficiency and other anemia (19 sources) Anemia 05-18-2020 Episodic Diabetes mellitus with complications (20 sources) Disorder of kidney due to diabetes mellitus; Translations: [Type 2 diabetes mellitus with diabetic chronic kidney disease] Onset: 07-02-2022 Chronic Diabetes mellitus without complication (20 sources) Diabetes mellitus; Translations: [Type 2 diabetes [...] hematuria] Onset: 09-03-2023 Episodic Heart valve disorders (19 sources) Irregular heart beat 05-18-2020 Episodic Hyperplasia [...] sources) Long-term current use of insulin; Translations: [retirement (current) use of insulin] Episodic Other and [...] pulmonary nodule] Episodic Other lower respiratory disease (10 sources) Solitary pulmonary nodule; Translations: [SOLITARY PULMONARY NODULE] Onset: 03-07-2023 Episodic Other male genital disorders (2 sources) Male erectile dysfunction, unspecified; Translations: [Male erectile dysfunction, unspecified] Onset: 08-14-2022 Chronic Other nervous system disorders (19 sources) Carpal tunnel syndrome 05-18-2020 Chronic Other [...] [Atherosclerosis of aorta] Chronic Residual codes; unclassified (19 sources) Sleep apnea 05-18-2020 Chronic Residual codes; unclassified (13 sources) Obstructive sleep apnea syndrome; Translations: [Obstructive sleep apnea (adult) (pediatric)] Chronic Residual codes; unclassified (3 sources) Obstructive sleep apnea (adult) (pediatric); Translations: [Obstructive sleep apnea] Chronic Residual codes; unclassified (19 sources) H/O cardiac surgery 05-18-2020 Episodic Respiratory failure; insufficiency; arrest (adult) (19 sources) 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 airway pressure ventilation 05-18-2020 Chronic Rheumatoid arthritis and related disease (19 sources) Rheumatoid arthritis 05-18-2020 Chronic Spondylosis; intervertebral [...] Onset: 01-20-2024 Episodic Other aftercare (2 sources) retirement (current) use of insulin; Translations: [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] Onset: 11-27-2022 Episodic Other aftercare (1 source) Other assisted (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 therapy; Translations: [OTH LAUNCH ENGINEER CURRENT DRUG THERAPY] Onset: 11-27-2022 Episodic Other aftercare (1 source) retirement (current) use of aspirin; Translations: [[facility] CURRENT USE OF ASPIRIN] Onset: 11-27-2022 Episodic Other lower respiratory disease (6 sources) Shortness of breath; Translations: [SHORTNESS OF BREATH] Onset: 07-25-2022 Episodic Other lower respiratory disease (2 sources) Other forms of dyspnea; Translations: [Other forms of dyspnea] Onset: 07-27-2024 Episodic Other screening for suspected conditions (not mental disorders or infectious disease) (2 sources) Encounter for screening for malignant neoplasm of prostate; Translations: [Encounter for screening for malignant neoplasm of prostate] Onset: 03-17-2024 Episodic Screening and history of mental health and substance abuse codes (1 source) Personal history of nicotine dependence; Translations: [PERSONAL HISTORY OF NICOTINE DEPEND] Onset: 11-27-2022 Episodic Spondylosis; intervertebral disc disorders; other back problems (2 sources) Dorsalgia, unspecified; Translations: [Spinal stenosis, lumbar region without neurogenic claudication] Onset: 11-27-2022 Episodic Unclassified (1 source) LOW BACK PAIN, UNSPECIFIED; Translations: [LOW BACK PAIN, UNSPECIFIED] Onset: 11-23-2022 Urinary tract infections (2 sources) Other cystitis without hematuria; Translations: [Other cystitis without hematuria] Onset: 03-17-2024 Episodic Viral infection (1 source) COVID-19 Results Test Name Value Interpretation Reference Range Facility Main OR Intraoperative Recor don 12-07-2024 Main OR Intraoperative Record Main OR Intraoperative Record IntraOp Document Type FTPM Summary Primary Physician: John Cannon DO Finalized Date/Time: 12/07/24 08:53:30 Pt. Name: TRAE PINEDA Lorenzo MinayaB./Sex: 1950 Male Med Rec #: [id number] Physician: John Cannon DO Financial #: [id number] Pt. Type: P Room/Bed: / Admit/Disch: 12/07/24 06:59:32 - Institution: Case Times FTPM Entry 1 Patient Times In Room 12/07/24 08:17:00 Out Room 12/07/24 08:52:00 Procedure Times Start 12/07/24 08:20:00 Stop 12/07/24 08:45:00 Anesthesia Times Start 12/07/24 08:17:00 Stop 12/07/24 08:52:00 Last Modified By: Deysi Castro RN 12/07/24 08:52:16 Case Attendance FTPM Entry 1 Entry 2 Entry 3 Case Attendee Franko Carrasquillo CRNA, DO, Bradford A. Pritchard RN, Madison A Role Performed Anesthesiologist Surgeon - Primary Hammer Repairer - Primary [employer] Time In 12/07/24 08:17:00 12/07/24 08:17:00 12/07/24 08:17:00 Time Out 12/07/24 08:52:00 12/07/24 08:52:00 12/07/24 08:52:00 Procedure MINIMALLY INVASIVE MINIMALLY INVASIVE MINIMALLY INVASIVE LUMBAR DECOMPRESSION(.) LUMBAR DECOMPRESSION(.) LUMBAR DECOMPRESSION(.) Comments Last Modified By: Matthew PEREZ, Deysi Castro RN, Deysi Clemente RN 12/07/24 08:52:16 12/07/24 08:52:16 12/07/24 08:52:16 Entry 4 Entry 5 Entry 6 Case Attendee Leanne Fitzgerald RN, Toni Casper RN, Julia Mathews Role Performed Keg Washer Scrub - Relief Scrub - Primary Time In 12/07/24 08:17:00 12/07/24 08:17:00 12/07/24 08:17:00 Time Out 12/07/24 08:52:00 12/07/24 08:52:00 12/07/24 08:52:00 Procedure MINIMALLY INVASIVE MINIMALLY INVASIVE MINIMALLY INVASIVE LUMBAR DECOMPRESSION(.) LUMBAR DECOMPRESSION(.) LUMBAR DECOMPRESSION(.) Comments Last Modified By: Deysi Castro RN, RN, Madison A Pritchard RN, Madison A 12/07/24 08:52:16 12/07/24 08:52:16 12/07/24 08:52:16 Entry 7 Case Attendee Gerber Catalan Jr., DO Role Performed Anesthesiologist of Record Time In 12/07/24 08:17:00 Time Out 12/07/24 08:52:00 Procedure MINIMALLY INVASIVE LUMBAR DECOMPRESSION(.) Comments Last Modified By: Deysi Castro RN 12/07/24 08:52:16 Perioperative Protocols FTPM Pre-Care Text: Implements protective measures prior to operative or invasive procedure, confirms identity before the operative or invasive procedure, verifies operative procedure, surgical site, and laterality Entry 1 Procedure(s) MINIMALLY INVASIVE Patient Identity Birthday, ID Band LUMBAR DECOMPRESSION(.) Verified (select at Check, Patient least 2): Participation Consents / H and P Anesthesia Consent, Operative Site Present Verified H&P, Surgery/Procedure Marking Verified Consent Surgical Site Yes Laterality Verified Yes Verified Procedure Verified Yes Correct Patient Yes Position Verified Availability Equipment, Medication, Prep Dry Yes Verified (If X-ray Applicable) PreOp Antibiotic Yes Time Out Deysi Castro RN, Myers RN, Davis Baires DO, Bradford A., Williams CRNA, Paul A., Harvey RN, Lia Elkins Amy Time Out Complete 12/07/24 08:19:00 Outcomes Met? Yes Last Modified By: Deysi Castro RN 12/07/24 08:20:41 Post-Care Text: The patient is free from signs and symptoms of injury caused by extraneous objects Allergy Information FTPM Pre-Care Text: Verifies allergies Entry 1 Allergies Reviewed? Yes Allergies Reviewed Self/Patient With Outcomes Met? Yes Last Modified By: Deysi Castro RN 12/07/24 08:20:50 Post-Care Text: The patient received appropriate medication(s) safely administered during the perioperative period Surgical Procedures FTPM Entry 1 Procedure Description Procedure MINIMALLY INVASIVE Modifiers . LUMBAR DECOMPRESSION (MILD) Surgeon Description L4/5 MILD Primary Procedure Yes Primary Surgeon John Cannon DO Start 12/07/24 08:20:00 Stop 12/07/24 08:45:00 Anesthesia Type MAC Surgical Service Pain Management Wound Class 1 - Clean Last Modified By: Deysi Castro RN 12/07/24 08:52:18 General Case Data FTPM Pre-Care Text: Classifies surgical wound, implements aseptic technique, initiates traffic control Entry 1 Case Information OR Pain Proc Room Case Level Level 2 Wound Class 1 - Clean Specialty Pain Management ASA Class 3 Preop Diagnosis M48.062, Z00.6 Postop Same As Preop Yes Postop Diagnosis M48.062, Z00.6 Outcomes Met? Yes Last Modified By: Deysi Castro RN 12/07/24 08:21:03 Post-Care Text: The patient is free from signs and symptoms of infection Skin Assessment (Pre Procedure) FTPM Pre-Care Text: Implements protective measures to prevent skin/ tissue injury due to thermal or mechanical sources Evaluates for signs and symptoms of physical injury to skin and tissue Entry 1 Skin Integrity Intact, [place], Warm, & Skin Abnormality No Dry Outcomes Met? Yes Last Modified By: Ricky (more content not included)... Normal [facility] Main OR Preoperative Recordo n 12-07-2024 Main OR Preoperative Record Main OR Preoperative Record Holding Area Document Type FTPM Summary Primary Physician: John Cannon DO Finalized Date/Time: 12/07/24 08:04:53 Pt. Name: TRAE PINEDA/Sex: 1950 Male Med Rec #: [id number] Physician: John Cannon DO Financial #: [id number] Pt. Type: P Room/Bed: / Admit/Disch: 12/07/24 06:59:32 - Institution: Case Times Holding FTPM Pre-Care Text: Verifies consent for planned procedure, identifies individual values and wishes concerning care, includes family members in perioperative teaching Secures patient's records' belongings, and valuables, maintains patient's dignity and privacy, and maintains patient confidentiality Entry 1 In Holding 12/07/24 07:22:00 Outcomes Met? Yes Last Modified By: Barb Schmidt RN 12/07/24 07:22:28 Post-Care Text: The patient participates in decisions affecting his or her perioperative plan of care The patient's right to privacy is maintained Surgery Checklist FTPM Entry 1 Patient Birthday, ID Band Procedure History and Physical, Identification: Check, Patient Verification: Surgical Consent, With Participation Patient NPO after Midnight: Yes Date/Time: 12/07/24 07:22:00 Results Reviewed N/A Personal Items: Dentures, Glasses Comments: Personal Items Pt. wearing glasses and Complaints of Pain: Yes Comment: upper/lower partial. Pain Comment: 710 lower back pain Operative Site Yes Marking: Marked By: Dr. Cannon Location: L4-L5 Availability Equipment, X-Ray Verified: Does Patient Smoke No Patient states Yes Comment - Adult friend-Ray postop adult Supervision supervision available Case Cancelled in No Holding Area see comments below for reason Last Modified By: Barb Schmidt RN 12/07/24 07:34:26 Finalized By: Barb Schmidt RN Document Signatures Signed By: Barb Schmidt RN 12/07/24 07:27 Barb Schmidt RN 12/07/24 08:04 Normal [facility] Operative Reporton Operative Report Operative Report Diagnosis: m48.062 lumbar stenosis with neurogenic claudication. Z00.6 Procedure: Bilateral minimally invasive lumbar decompression at L4/5 Anesthesia: MAC Fluids: 300mL EBL: 1mL Patient was evaluated the preoperative holding area and identified as the correct patient and procedure was explained, risk and benefits were discussed with the patient. An IV was started and 2 g of Ancef was given preoperatively. The patient was then consented by the anesthesia team. Next, the patient was brought to the procedure area and placed on monitors by the anesthetic team. He was placed in the prone position and all pressure points were padded and patient was evaluated to be in appropriate anatomic position. Next, a timeout was performed. Then the lumbar area with prepped with a ChloraPrep. Next, sterile drapes were applied to the patient. Bony landmarks were then identified using fluoroscopy. Local anesthetic of 2.0% lidocaine with epinephrine was injected subcutaneously to anesthetize the needle bah to the appropriate anatomic landmarks bilaterally. Next, the cannula was then advanced in AP and contralateral views to the appropriate anatomic landmarks on the left side first. Once the working channel was in place, next, the Kerrison device was used to remove bone on the inferior portion of the lamina as well as superior portion of the lower lamina segment. Next, a tissue sculptor was utilized to remove soft tissue and ligament. Then our attention was directed to the right where the same procedure was repeated. Next, skin was localized over the L5/S1 segment and a 17-gauge Touhy needle was then advanced into the appropriate space using [id number] and confirmed by fluoroscopy and contrast spread. The contrast did not reveal any abnormal uptake or any evidence of dural tear and showed smooth contour. Next, 10 mg of dexamethasone with 1 cc of normal saline was injected into the epidural space. All instruments were removed from the patient and then the wound was cleaned with sterile saline. Next, skin glue was used for the small incisions, 2 of them, on lower lumbar region. Then a Telfa was then applied over the incision with a Tegaderm dressing. The patient was then brought to the postoperative area in stable condition without acute issue. Follow-Up: We will plan to follow-up with the patient post procedurally, all instructions were reviewed with the patient before leaving the discharge area. Patient voiced understanding of postprocedural plan and will call with any questions or issues periprocedurally. Normal [facility] Comment on above: Result Comment: Elec tronically Signed By: John Cannon DO\.br\Date and Time Signed: 12/07/24 08:54 EST Documentationon 12-02-2024 Documentation [id number] Trae Pineda 1950 M Date Provider Department Center 12/02/2024 64143-ODECVDZMORENITA LARSEN None Family History Problem Relation Age of Onset Prostate cancer Father Family Status - Relation Status Age at Father Normal [facility] Follow-Upon 11-03-2024 Follow-Up [id number] Trae Pineda 1950 M Date Provider Department Center 11/03/2024 [place]-DIONY ARIZA [facility] URO Second Fl Family History Problem Relation Age of Onset Prostate cancer Father Family Status - Relation Status Age at Father Level of Service:78901 DC OFFICE/OUTPATIENT ESTABLISHED MOD MDM 30 MIN Reason for Visit and Comments: Benign Prostatic Hypertrophy [315516791] Hypogonadism [185] - Follow-up TRUS and labs Normal [facility] Orders Onlyon 11-02-2024 Orders Only [id number] EdwinTrae lima Lorenzo 1950 M Date Provider Department [place] 11/02/[address] [place] [address] URO Second Fl Family History Problem Relation Age of Onset Prostate cancer Father Family Status - Relation Status Age at Father Normal [facility] Orders Onlyon 10-27-2024 Orders Only [id number] EdwinTrae lima Lorenzo 1950 M Date Provider Department [place] 10/27/[address] [place] [address] URO Second Fl Family History Problem Relation Age of Onset Prostate cancer Father Family Status - Relation Status Age at Father Normal [facility] Main OR Preoperative Recordo n 09-08-2024 Main OR Preoperative Record Main OR Preoperative Record Holding Area Document Type FTPM Summary Primary Physician: John Cannon DO Finalized Date/Time: 09/08/24 10:57:05 Pt. Name: KELL PINEDAWILFREDO Anderson/Sex: 1950 Male Med Rec #: [id number] Physician: John Cannon DO Financial #: [id number] Pt. Type: P Room/Bed: / Admit/Disch: 09/08/24 10:39:37 - Institution: Case Times Holding FTPM Pre-Care Text: Verifies consent for planned procedure, identifies individual values and wishes concerning care, includes family members in perioperative teaching Secures patient's records' belongings, and valuables, maintains patient's dignity and privacy, and maintains patient confidentiality Entry 1 In Holding 09/08/24 10:54:00 Outcomes Met? Yes Last Modified By: Brayan PEREZ, Barb Toledo 09/08/24 10:54:38 Post-Care Text: The patient participates in decisions affecting his or her perioperative plan of care The patient's right to privacy is maintained Surgery Checklist FTPM Entry 1 Patient Birthday, ID Band Procedure History and Physical, Identification: Check, Patient Verification: Surgical Consent, With Participation Patient NPO after Midnight: No Date/Time: 09/08/24 10:54:00 Results Reviewed 0815 coffee and toast Personal Items: Dentures, Glasses, Comments: Jewelry Personal Items Pt. wearing glasses, Complaints of Pain: Yes Comment: lower partial & medical bracelet Pain Comment: 08/27 lower back pain Operative Site Yes Marking: Marked By: Dr. Cannon Location: bilateral L4-L5 Availability Equipment, X-Ray Verified: Does Patient Smoke No Patient states Yes Comment - Adult friend-Hermann Galvez postop adult Supervision supervision available Case Cancelled in No Holding Area see comments below for reason Last Modified By: Barb Schmidt RN 09/08/24 10:57:01 Finalized By: Barb Schmidt RN Document Signatures Signed By: Barb Schmidt RN 09/08/24 10:57 Normal [facility] Office Visiton 08-31-2024 Follow-up visit [id number] Trae Pineda [address] [facility] Provider Department Center 08/31/2024 Risa-MOI MOSS [facility] Family History Problem Relation Age of Onset Prostate cancer Father Family Status - Relation Status Age at Father Level of Service:83060 DC OFFICE/OUTPATIENT ESTABLISHED MOD MDM [address] [facility] Orders Onlyon 08-13-2024 Orders Only [id number] Trae Pineda 1950 M Date Provider Department [place] 08/13/2024 [place]-KRISTEL MATHEW [facility] Family History Problem Relation Age of Onset Prostate cancer Father Family Status - Relation Status Age at Father Normal [facility] Procedure Visiton 08-13-2024 Procedure Visit [id number] Trae Pineda E 1950 M Date Provider Department [place] 08/13/2024 [place]-DIONY ARIZA [facility] Family History Problem Relation Age of Onset Prostate cancer Father Family Status - Relation Status Age at Father Level of Service:51925 DC OFFICE/OUTPT VISIT,PROCEDURE ONLY (25) Reason for Visit and Comments: Follow-up [759439] - Trus Normal [facility] Orders Onlyon 09-11-2024 Orders Only [id number] Trae Pineda E 1950 M Date Provider Department Center 07/29/2024 895-RACHNA SHEPARD [facility] No family history on file [facility] Office Visiton 07-27-2024 Follow-up visit [id number] Trae Pineda E 1950 M Date Provider Department Center 07/27/2024 47591-NPFIZOENRRIQUE OAKLEY [facility] Hos No family history on file Level of Service:54438 DC OFFICE/OUTPATIENT ESTABLISHED MOD MDM 30 MIN Reason for Visit and Comments: Hyperlipidemia [182] Hypertension [441060] - Pt is here for low blood pressure. [facility] Follow-Upon 05-19-2024 Follow-Up [id number] Trae Pineda E 1950 M Date Provider Department Center 05/19/2024 ColtonMAMTA ARIZAEET [facility] U[facility] Second Fl No family history on file Level of Service:47206 DC OFFICE/OUTPATIENT ESTABLISHED MOD MDM [address] [facility] Refillon 05-14-2024 Refill [id number] Trae Pineda E 1950 M Date Provider Department Center 05/14/2024 124-MARCIAL SANTOS [facility] URO Second Fl No family history on file Reason for Visit and Comments: Med Refill [613211] [facility] Procedure Visiton 05-11-2024 Procedure Visit [id number] Trae Pineda E 1950 M Date Provider Department Center 05/11[facility]2024 [facility] No family history on file Level of Service:15118 DC OFFICE/OUTPT VISIT,PROCEDURE ONLY (26) Reason for Visit and Comments: Follow-up [182882] - Uds documentation Normal [facility] Procedure Visit [id number] Trae Pineda E 1950 M Date Provider Department Center 05/11/2024 20408-HDRPFCSMORENITA LARSEN [facility] URO [facility] No family history on file Level of Service:30851 DC OFFICE/OUTPATIENT ESTABLISHED LOW MDM 20 MIN Reason for Visit and Comments: Follow-up [588494] - uds [facility] Consent for Treatmenton 03-18 Consent for Treatment [id number] #1.00TIFF Normal [facility] Consultation Noteon 03-27-20 Consultation Note Patient: TRAE PINEDA Age: 74 [...] # 30 tab(s), Refills(s) 0, Pharmacy: [facility]/pharmacy #[id number], 183, cm, 02/14/24 13:46:00 EDT, Height/Length Dosing, 110.3, kg, 02/14/24 13:46:00 EDT, Weight Dosing gabapentin 300 mg Cap: 300 mg = 1 cap(s), Oral, Once a day (at bedtime), # 30 cap(s), Refills(s) 1, [id number], cm, 12/16/23 10:37:00 EST, Height/Length Dosing, 102.3, kg, 12/16/23 10:37:00 EST, Weight Dosing pregabalin 25 mg Cap: 25 mg = 1 cap(s), Oral, BID, # 60 cap(s), Refills(s) 0, [id number] 183, cm, 03/27/24 14:29:00 EDT, [...] History of heart attack / SNOMED CT 3538469726 / Confirmed Acute angina / SNOMED CT 513083370 / Confirmed Irregular heart beat / SNOMED CT 303777329 / Confirmed HTN (hypertension) / SNOMED CT 1427183814 / Confirmed High cholesterol / SNOMED CT 26788805 / Confirmed H/O heart bypass surgery / SNOMED CT 509775677 / Confirmed Apnea, sleep / SNOMED CT 246570311 / Confirmed CPAP (continuous positive airway pressure) dependence / SNOMED CT 5808212300 / Confirmed Enlarged prostate / SNOMED CT 694017996 / Confirmed Chronic kidney disease (CKD) / SNOMED CT 2990208663 / Confirmed Diabetes / SNOMED CT 854680056 / Confirmed Carpal tunnel syndrome / SNOMED CT 08455823 / Confirmed Anemia / SNOMED CT 707481063 / Confirmed Arthritis, rheumatoid / SNOMED CT 500238221 / Confirmed Obesity / ICD-9-CM 278.00 / Possible Obesity / SNOMED CT W7509Z79-5940-2J91-X 15E-[id number] / Possible Objective Vital Signs 03/27/2024 14:19 [...] right straight leg raise Integumentary: Warm, Dry, [place]. Neurologic: Alert, Oriented. Psychiatric: Cooperative, Appropriate mood [...] did not (more content not included)... Normal [facility] Comment on above: Result Comment: Elec tronically Signed By: Jono AGOSTO, Margareth\.br\Date and Time Signed: 03/27/24 14:47 EDT Office/Clinic Note-Physician on 03-27-2024 Office/Clinic Note-Physician [id number] 1#1.00TIFF Normal [facility] Outside Records Officeon Outside Records Office [id number] 8#1.00TIFF Normal [facility] Patient Correspondenceon Patient Correspondence [id number] 2#1.00TIFF Normal [facility] Patient History Officeon Patient History Office [id number] 9#1.00TIFF Normal [facility] Follow-Upon 03-17-2024 Follow-Up [id number] Trae Pineda [address] [facility] Provider Department Center 03/17/[address] [place] [address] URO Second Fl No family history on file Level of Service:61102 DC OFFICE/OUTPATIENT ESTABLISHED MOD MDM 30 MIN Reason for Visit and Comments: Benign Prostatic Hypertrophy [527340506] Hypogonadism [185] - 3 mo follow-up with labs Normal [facility] Orders Onlyon 03-12-2024 Orders Only [id number] Trae Pineda 1950 [facility] Provider Department [place] 03/12/[address] [place] [address] URO Second Fl No family history on file Normal [facility] Consent for Treatmenton 01-17 Consent for Treatment [id number] 5#1.00TIFF [facility] Consultation Noteon 02-14-20 Consultation Note Patient: TRAE PINEDA Age: 73 years Sex: Male : [...] # 60 cap(s), Refills(s) 0, Pharmacy: [facility]/pharmacy #[id number], 183, cm, 02/14/24 13:46:00 EDT, Height/Length Dosing, 110.3, kg, 02/14/24 13:46:00 EDT, Weight Dosing gabapentin 300 mg Cap: 300 mg = 1 cap(s), Oral, Once a day (at bedtime), # 30 cap(s), Refills(s) 1, Pharmacy: [facility]/pharmacy #[id number], 183, cm, 12/16/23 10:37:00 EST, [...] History of heart attack / SNOMED CT 7733900435 / Confirmed Acute angina / SNOMED CT 766013377 / Confirmed Irregular heart beat / SNOMED CT 493634019 / Confirmed HTN (hypertension) / SNOMED CT 3316729377 / Confirmed High cholesterol / SNOMED CT 93373533 / Confirmed H/O heart bypass surgery / SNOMED CT 091200403 / Confirmed Apnea, sleep / SNOMED CT 317106583 / Confirmed CPAP (continuous positive airway pressure) dependence / SNOMED CT 9043100102 / Confirmed Enlarged prostate / SNOMED CT 851491912 / Confirmed Chronic kidney disease (CKD) / SNOMED CT 0263053706 / Confirmed Diabetes / SNOMED CT 627628367 / Confirmed Carpal tunnel syndrome / SNOMED CT 67150815 / Confirmed Anemia / SNOMED CT 894076320 / Confirmed Arthritis, rheumatoid / SNOMED CT 290492717 / Confirmed Obesity / ICD-9-CM 278.00 / Possible Obesity / SNOMED CT U0552A63-3322-3D99-Q 15E-[id number] / Possible Objective Vital Signs 02/14/2024 13:32 [...] pain with facet loading Integumentary: Warm, Dry, [place]. Neurologic: Alert, Oriented. Psychiatric: Cooperative, Appropriate mood [...] relief he (more content not included)... Normal [facility] Comment on above: Result Comment: Elec tronically Signed By: Jono AGOSTO, Margareth\.br\Date and Time Signed: 02/14/24 14:08 EDT Office/Clinic Note-Physician on 02-14-2024 Office/Clinic Note-Physician [id number] 3#1.00TIFF Normal [facility] Patient Correspondenceon Patient Correspondence [id number] 4#1.00TIFF Normal [facility] Patient Correspondence [id number] 4#1.00TIFF Normal [facility] Patient History Officeon Patient History Office [id number] 3#1.00TIFF [facility] Refillon 01-26-2024 Refill [id number] Trae Pineda 1950 M Date Provider Department Center 01/26/2024 124-MARCIAL SANTOS [facility] URO Second Fl No family history on file Reason for Visit and Comments: Med Refill [893270] [facility] Office Visiton 01-20-2024 Follow-up visit [id number] Trae Pineda 1950 M Date Provider Department Center 01/20/2024 Risa-MOI MOSS [facility] No family history on file Level of Service:87391 DC OFFICE/OUTPATIENT ESTABLISHED MOD MDM [address] [facility] Consent for Procedure/Surger yon 01-15-2024 Consent for Procedure/Surgery [id number] 45#1.00TIFF Normal [facility] Consent for Treatmenton 12-20 Consent for Treatment [id number] #1.00TIFF Normal [facility] Discharge Instructionson Discharge Instructions [id number] 08#1.00TIFF Normal [facility] IntraOperative Documentson 0 01-15-2024 IntraOperative Documents [id number] 74#1.00TIFF [facility] Main OR Intraoperative Recor don 01-15-2024 Main OR Intraoperative Record IntraOp Document Type FTPM Summary Primary Physician: John Cannon DO Finalized Date/Time: 01/15/24 14:25:24 Pt. Name: EDWINTRAE/Sex: 1950 Male Med Rec #: [id number] Physician: John Cannon DO Financial #: [id number] Pt. Type: P Room/Bed: / Admit/Disch: 01/15/24 [...] Lula Schuler Role Performed Surgeon - Primary Hammer Repairer - Primary Scrub - Primary Time In 01/15/24 14:15:00 01/15/24 14:15:00 01/15/24 14:15:00 Time Out 01/15/24 14:24:00 01/15/24 14:24:00 01/15/24 14:24:00 Procedure LUMBAR EPIDURAL STEROID LUMBAR EPIDURAL STEROID LUMBAR EPIDURAL STEROID INJECTION(.) INJECTION(.) INJECTION(.) Comments Last Modified By: Deysi Castro RN, RN, Madison A Pritchard RN, Madison A 01/15/24 14:23:16 01/15/24 14:23:16 01/15/24 14:23:16 Entry 4 Case Attendee Leanne Fitzgerald Role Performed Keg Washer Time In 01/15/24 14:15:00 Time Out 01/15/24 [...] and tissue Entry 1 Skin Integrity Intact, [place], Warm, and Skin Abnormality No Dry Outcomes [...] Last Modif (more content not included)... Normal [facility] Main OR Preoperative Recordo n 01-15-2024 Main OR Preoperative Record Holding Area Document Type FTPM Summary Primary Physician: John Cannon DO Finalized Date/Time: 01/15/24 13:38:25 Pt. Name: TRAE PINEDA/Sex: 1950 Male Med Rec #: [id number] Physician: John Cannon DO Financial #: [id number] Pt. Type: P Room/Bed: / Admit/Disch: 01/15/24 [...] Signed By: Barb Schmidt RN 01/15/24 13:38 [facility] Patient Correspondenceon Patient Correspondence [id number] 4#1.00TIFF Normal [facility] Orders Onlyon 12-23-2023 Orders Only [id number] Trae Pineda 1950 M Date Provider Department Center 12/23/2023 MARCIAL SANON TXP None No family history on file Normal [facility] Refillon 12-20-2023 Refill [id number] Trae Pineda 1950 M Date Provider Department Center 12/20/2023 MARCIAL SANON [facility] URO Second Fl No family history on file Reason for Visit and Comments: Med Refill [015119] Normal [facility] CT CHEST WO CONon 04-20-2023 CT CHEST WO CON EXAMINATION: CT CHEST WO CON 03/07/2023 HISTORY: Solitary nodule of [...] SLOAN SOSA Date: 2023-03-07 10:24 Normal [facility] TESTOSTERONE, FREE,DIRECT, T Katarzyna 01-24-2023 Free Testosterone(Direct) 10.1 pg/mL Normal 6.6-18.1 [facility] Comment on above: Result Comment: Perf ormed at: BN Performed By: #### L [facility] #### [facility] [address] [place] [address] Dr. Zan Escalante Testosterone [Mass/Vol] 622 ng/dL Normal 264-916 [facility] Comment on above: Result Comment: Adul t male reference interval is based on a population of healthy nonobese males (BMI <30) between 19 and 39 years old. jeancarlos Sullivan.al. JCEM 2017,102;9021-3909. PMID: 84841457. Performed at: CB Performed By: #### L [facility] #### [facility] [address] [place] [address] Dr. Zan Escalante ESTRADIOLon 01-19-2023 Estradiol 21.4 pg/mL Normal 7.6-42.6 [facility] Comment on above: Result Comment: Anastacio chong ECLIA methodology Performed By: #### L [facility] #### [facility] [address] [place] [address] Dr. Zan Escalante FSHon 01-19-2023 FSH 0.3 mIU/mL Critically low 1.5-12.4 [facility] Comment on above: Performed By: #### L BCFSH #### [facility] [address] [place] [address] Dr. Zan Escalante LUTEINIZING HORMONE (LH)on 0 01-19-2023 LH <0.3 Critically low 1.7-8.6 [facility] Comment on above: Performed By: #### L [facility] #### [facility] [address] [place] [address] Dr. Zan Escalante PROLACTINon 01-19-2023 Prolactin 6.5 ng/mL Normal 4.0-15.2 [facility] Comment on above: Performed By: #### L [facility] #### [facility] [address] [place] [address] Dr. Zan Escalante SEX HORMONE-BINDING GLOBULIN on 01-19-2023 Sex Horm Binding Glob, Serum 28.3 nmol/L Normal 19.3-76.4 [facility] Comment on above: Performed By: #### S EXHBG #### [facility] [address] [place] [address] Dr. Zan Escalante CHEMISTRYOrdered By: Lab ROP User on 12-12-2022 Glucose [Mass/Vol] 157 mg/dL High 55 - 99 mg/dL FTM C POC Subsection POC Device SN [id number] Invalid Interpretation Code FT POC Subsection POC User ID [id number] Invalid Interpretation Code [facility] POC Subsection POC Username THOMAS FARR Invalid Interpretation Code [facility] POC Subsection TESTOSTERONE, FREE,DIRECT, T OTALon 09-01-2022 Free Testosterone(Direct) 4.2 pg/mL Critically low 6.6-18.1 [facility] Comment on above: Result Comment: Perf ormed at: BN Performed By: #### T ESTFRD #### [facility] [address] [place] [address] Dr. Zan Escalante Testosterone [Mass/Vol] 171 ng/dL Critically low 264-916 [facility] Comment on above: Result Comment: Adul t male reference interval is based on a population of healthy nonobese males (BMI <30) between 19 and 39 years old. Nate et.al. JCEM 2017,102;2438-5153. PMID: 19584632. Performed at: CB Performed By: #### T ESTFRD #### [facility] [address] [place] [address] Dr. Zan Escalante ESTRADIOLon 08-30-2022 Estradiol 28.9 pg/mL Normal 7.6-42.6 [facility] Comment on above: Result Comment: Roch e ECLIA methodology Performed By: #### L BCL[facility] #### [facility] [address] [place] [address] Dr. Zan Escalante FSHon 08-30-2022 FSH 3.0 mIU/mL Normal 1.5-12.4 [facility] Comment on above: Performed By: #### L BCFSH #### [facility] [address] [place] [address] Dr. Zan Escalante LUTEINIZING HORMONE (LH)on LH 5.7 mIU/mL Normal 1.7-8.6 [facility] Comment on above: Performed By: #### L BCL[facility] #### [facility] [address] [place] [address] Dr. Zan Escalante PROLACTINon 08-30-2022 Prolactin 8.6 ng/mL Normal 4.0-15.2 [facility] Comment on above: Performed By: #### L BCLH #### [facility] [address] [address] [address] Zan Escalante SEX HORMONE-BINDING GLOBULIN on 08-30-2022 Sex Horm Binding Glob, Serum 22.7 nmol/L Normal 19.3-76.4 [facility] Comment on above: Performed By: #### S EXHBG #### [facility] [address] [address] [address] Zan Escalante ECHOCARDIO M/2D COMPLETEon 0 07-31-2022 ECHOCARDIO M/2D COMPLETE Patient: TRAE PINEDA Exam Date: 07/31/2022 : 1950 Gender:M Ordering : DR MOI MOSS M.D. Admission #: [id number] Family : Order #: [id number] CLICK HERE TO VIEW EXAM ECHOCARDIOGRAM REPORT [...] Moss M.D. on 07/31/2022 at 18:09 Normal [facility] *URINE CATH CULTUREon 2021 *URINE CATH CULTURE Clinical Report: (D) Specimen/Source: URINE/INTRAOP SPEC Collected: 07/02/2022 14:53 Status: Final Last Updated: 07/04/2022 09:03 (1) 1. Urine GRAM (Final) Many Polys Few Gram Positive Cocci In Pairs And Chains ISO (Final) Staphylococcus epidermidis >10,000 Cfu/mL ISOLATE: Staphylococcus epidermidis ---- JOSEPH (mcg/ml) NITROFURANTOIN (FT) <=16 Susceptible OXACILLIN (OX) <=0.25 Susceptible TETRACYCLINE (TE) <=0.5 Susceptible VANCOMYCIN (VA) 1 Susceptible Normal [facility] Comment on above: Order Comment: 1. Ur ine Performed By: #### 3 0478 #### [facility] [address] Operative Reporton 2 Operative Report MR#: [id number] S [facility] Pt. Name: Trae Pineda Room #: 0C Discharge Date: Birthdate: 1950 OPERATIVE REPORT DATE OF SURGERY: 07/02/2022 SURGEON: Diony Ariza MD BICYCLE TAXI DRIVER: Kolby ARMANDO PGY3 PREOPERATIVE DIAGNOSIS: Benign prostatic [...] the room agreed. A well lubricated rigid 22-Wolof cystoscopic sheath with a 30-degree lens was [...] bleeding due to scope trauma so 18 tajik leggett was inserted. Urine was with significant [...] Jarrett MD Date Trans: 07/02/2022 03:30 P/ DN_JN:[id number] cc: Cristobal Kearns D.O. [address] [place] [id number] Normal [facility] POC GLUCOSE LABon 07-02-2022 Glucose [Mass/Vol] 130 mg/dL High 70-100 [facility] Comment on above: Performed By: #### 8 [id number] #### [facility] [address] [place] [address], [facility] MICROALBUMIN URINEon 022 Albumin, Urine 42.2 ug/mL Normal Not Estab. [facility] Comment on above: Performed By: #### L BCL #### [facility] [address] [place] [address] Dr. Zan Escalante CBC AUTO DIFFon 06-29-2022 BASO # 0.1 103/ul Normal 0.0-0.1 [facility] Comment on above: Performed By: #### C BC #### [facility] [address] [address] [address] Zan Escalante Basophils/100 WBC (Bld) 1.1 % Normal 0.2-2.0 [facility] Comment on above: Performed By: #### C BC #### [facility] [address] [address] [address] Zan Escalante EO # 0.6 103/ul Normal 0.0-0.7 [facility] Comment on above: Performed By: #### C BC #### [facility] [address] [place] [address] Dr. Zan Escalante Eosinophils/100 WBC (Bld) 7.0 % Normal 0.9-7.0 [facility] Comment on above: Performed By: #### C BC #### [facility] [address] [place] [address] Dr. Zan Escalante Erythrocyte distribution width (RBC) [Ratio] 13.8 % Normal 11.0-15.0 [facility] Comment on above: Performed By: #### C BC #### [facility] [address] [place] [address] Dr. Zan Escalante Hematocrit (Bld) [Volume fraction] 40.9 % Critically low 42.0-54.0 [facility] Comment on above: Performed By: #### C BC #### [facility] [address] [place] [address] Dr. Zan Escalante Hemoglobin (Bld) [Mass/Vol] 13.1 g/dL Critically low 14.0-18.0 [facility] Comment on above: Performed By: #### C BC #### [facility] [address] [place] [address] Dr. Zan Escalante IG # 0.04 [id number] Critically high 0.00-0.03 [facility] Comment on above: Performed By: #### C BC #### [facility] [address] [place] [address] Dr. Zan Escalante IG % 0.5 % Normal 0.0-0.5 [facility] Comment on above: Performed By: #### C BC #### [facility] [address] [place] [address] Dr. Zan Escalante LYMPH # 3.0 103/ul Normal 1.2-3.8 [facility] Comment on above: Performed By: #### C BC #### [facility] [address] [place] [address] Dr. Zan Escalante Lymphocytes/100 WBC (Bld) 33.4 % Normal 20.5-60.0 [facility] Comment on above: Performed By: #### C BC #### [facility] [address] [place] [address] Dr. Zan Escalante MANUAL DIFF REQ NO Normal [facility] Comment on above: Performed By: #### C BC #### [facility] [address] [place] [address] Dr. Zan Escalante MCH (RBC) [Entitic mass] 29.6 pg Normal 25.9-34.0 [facility] Comment on above: Performed By: #### C BC #### [facility] [address] [place] [address] Dr. Zan Escalante MCHC (RBC) [Mass/Vol] 32.0 g/dL Normal 29.9-35.2 [facility] Comment on above: Performed By: #### C BC #### [facility] [address] [place] [address] Dr. Zan Escalante MCV (RBC) [Entitic vol] 92.3 fL Normal 80.0-94.0 [facility] Comment on above: Performed By: #### C BC #### [facility] [address] [place] [address] Dr. Zan Escalante MONO # 0.8 103/ul Normal 0.3-0.8 [facility] Comment on above: Performed By: #### C BC #### [facility] [address] [place] [address] Dr. Zan Escalante Monocytes/100 WBC (Bld) 9.4 % Normal 1.7-12.0 [facility] Comment on above: Performed By: #### C BC #### [facility] [address] [place] [address] Dr. Zan Escalante NEUT # 4.3 103/ul Normal 1.4-6.5 [facility] Comment on above: Performed By: #### C BC #### [facility] [address] [place] [address] Dr. Zan Escalante Neutrophils/100 WBC (Bld) 48.6 % Normal 43.0-75.0 [facility] Comment on above: Performed By: #### C BC #### [facility] [address] [place], [place] [address] Dr. Zan Escalante Platelet mean volume (Bld) [Entitic vol] 11.2 fL Normal 9.5-13.5 [facility] Comment on above: Performed By: #### C BC #### [facility] [id number] Zan Escalante PLT 185 103/ul Normal 150-450 [facility] Comment on above: Performed By: #### C BC #### [facility] [address] [place], [place] [address] Dr. Zan Escalante RBC 4.43 106/ul Critically low 4.70-6.10 [facility] Comment on above: Performed By: #### C BC #### [facility] [address] [address] [address] Zan Escalante WBC 8.9 103/ul Normal 4.0-11.0 [facility] Comment on above: Performed By: #### C BC #### [facility] [address] [place], [place] [address] Dr. Zan Escalante [facility] SARS-CoV-2 (COVID-19) RNA KRISTEL+probe Ql (Unsp spec) Not detected Normal NOT DETECTED [facility] Comment on above: Result Comment: This test is not yet approved or cleared by the [place] FDA. When there are no FDA-approved or cleared tests available, and other criteria are met, FDA can make tests available under an emergency access mechanism called an Emergency Use Authorization (EUA). The EUA for this test is supported by the Data Processing Consultant of Health and Human Service's (HHS's) declaration [...] consistent with SARS-CoV-2. Performed By: #### [facility] #### [facility] [address] [place] [address] Dr. Zan Escalante GLYCOHEMOGLOBIN A1Con 2021 ADA RECOMMENDATION SEE BELOW Normal [facility] Comment on above: Result Comment: ADA RECOMMENDED LIMIT 4.0 - 6.0 ADA THERAPEUTIC TARGET < 7.0 ACTION SUGGESTED > 7.0 Performed By: #### A 1C #### [facility] [address] [place] [address] Dr. Zan Escalante Glucose [Mass/Vol] 143 mg/dL Normal [facility] Comment on above: Performed By: #### A 1C #### [facility] [address] [place] [address] Dr. Zan Escalante HbA1c (Bld) [Mass fraction] 6.6 % Critically high 4.5-6.2 [facility] Comment on above: Performed By: #### A 1C #### [facility] [address] [place] [address] Dr. Zan Escalante LIPID PROFILEon 06-29-2022 CHOL-HDL RATIO NORM SEE BELOW Normal [facility] Comment on above: Result Comment: 3.3 - 4.4 LOW RISK 4.4 - 7.1 AVERAGE RISK 7.1 - 11.0 MODERATE RISK >11.0 HIGH RISK Performed By: #### B MP, LIPID #### [facility] [address] [place] [address] Dr. Zan Escalante Cholesterol [Mass/Vol] 105 mg/dL Normal <=200 [facility] Comment on above: Performed By: #### B MP, LIPID #### [facility] [address] [place] [address] Dr. Zan Escalante Cholesterol in HDL [Mass/Vol] 39 mg/dL Critically low 40-60 [facility] Comment on above: Performed By: #### B MP, LIPID #### [facility] [address] [place] [address] Dr. Zan Escalante Cholesterol in LDL [Mass/Vol] 45.0 mg/dL Normal [facility] Comment on above: Performed By: #### B MP, LIPID #### [facility] [address] [address] [address] Zan Escalante Cholesterol.total/Ch olesterol in HDL [Mass ratio] 2.7 {ratio} Normal [facility] Comment on above: Performed By: #### B MP, LIPID #### [facility] [address] [address] [address] Zan Escalante HDL NORMAL > or = 60 mg/dl - LOW CARDIOVASCULAR RISK <40 mg/dl - HIGH CARDIOVASCULAR RISK Normal [facility] Comment on above: Performed By: #### B MP, LIPID #### [facility] [address] [place] [address] Dr. aZn Escalante LDL CALC NORMAL SEE BELOW Normal [facility] Comment on above: Result Comment: <100 mg/dl OPTIMAL 100 - 129 mg/dl NEAR OR ABOVE OPTIMAL 130 - 159 mg/dl BORDERLINE HIGH 160 - 189 mg/dl HIGH >190 mg/dl VERY HIGH Performed By: #### B MP, LIPID #### [facility] [address] [place] [address] Dr. Zan Escalante Triglyceride [Mass/Vol] 105 mg/dL Normal <=150 [facility] Comment on above: Performed By: #### B MP, LIPID #### [facility] [address] [place] [address] Dr. Zan Escalante VLDL CALC 21.0 mg/dL Normal [facility] Comment on above: Performed By: #### B MP, LIPID #### [facility] [address] [address] [address] Zan Escalante PROF CHEM 8 (BAS METB)on Anion gap [Moles/Vol] 12.1 mmol/L Normal [facility] Comment on above: Performed By: #### B MP, LIPID #### [facility] [address] [address] [address] Zan Escalante Calcium [Mass/Vol] 9.0 mg/dL Normal 8.5-10.1 [facility] Comment on above: Performed By: #### B MP, LIPID #### [facility] [address] [address] [address] Zan Escalante Chloride [Moles/Vol] 106 mmol/L Normal 98-107 [facility] Comment on above: Performed By: #### B MP, LIPID #### [facility] [address] [address] [address] Zan Escalante CO2 [Moles/Vol] 28.4 mmol/L Normal 21.0-32.0 [facility] Comment on above: Performed By: #### B MP, LIPID #### [facility] [address] [address] [address] Zan Escalante Creatinine [Mass/Vol] 1.39 mg/dL Critically high 0.70-1.30 [facility] Comment on above: Performed By: #### B MP, LIPID #### [facility] [address] [address] [address] Zan Escalante EGFR-AF NEPALESE >60 Normal >=60 [facility] Comment on above: Performed By: #### B MP, LIPID #### [facility] [address] [address] [address] Zan Escalante EGFR-NON AF NEPALESE 50 mL/min/1.73m2 Critically low >=60 [facility] Comment on above: Performed By: #### B MP, LIPID #### [facility] [address] [address] [address] Zan Escalante Glucose [Mass/Vol] 96 mg/dL Normal 74-106 [facility] Comment on above: Performed By: #### B MP, LIPID #### [facility] [address] [address] [address] Zan Escalante Potassium [Moles/Vol] 4.5 mmol/L Normal 3.5-5.1 [facility] Comment on above: Performed By: #### B MP, LIPID #### [facility] [address] [address] [address] Zan Escalante Sodium [Moles/Vol] 142 mmol/L Normal 136-145 [facility] Comment on above: Performed By: #### B MP, LIPID #### [facility] [address] [place], [place] [address] Dr. Zan Escalante Urea nitrogen [Mass/Vol] 23.0 mg/dL Critically high 7.0-18.0 [facility] Comment on above: Performed By: #### B MP, LIPID #### [facility] [address] [place], [place] [address] Dr. Zan Escalante Urea nitrogen/Creatinine [Mass ratio] 16.5 mg/mg Normal [facility] Comment on above: Performed By: #### B MP, LIPID #### [facility] [address] [place], [place] [address] Dr. Zan Escalante ESTRADIOLon 04-17-2022 ESTRADIOL 20.7 pg/mL Low 27-52 [facility] [place] Normal [facility] Comment on above: Result Comment: Test Performed by [employer] [address] [place] [id number] - Released 04/17/2022 14:29 Result Comment: Test Performed by [employer] [address] [place] [id number] - Released 04/17/2022 14:30 TESTOSTERONE, TOTAL ILon Testosterone [Mass/Vol] 108 ng/dL Low 220-1000 [facility] CT UROGRAMon 03-13-2022 CT UROGRAM [facility] Department of Radiology [address] [place] [address] Patient Name: TRAE PINEDA : 1950 Sex: M Age: Race: White Pt. Location: [facility] Patient Status: D Ordered Date: [...] achievable Electronically signed: Aquilino Johnson. Transcribed by: [email or web address], User Resident: Electronically Signed by: AQUILINO JOHNSON @ 03/15/2022 01:05 PM Normal [facility] Vital Signs Date Time Vital Sign Value Performing Clinician Facility 12-15-2024 10:15-0500 Diastolic blood pressure 61 mm[Hg] Margareth De La Cruz [facility] 12-15-2024 10:15-0500 Heart rate 67 /min Margarethita De La Cruz [facility] 12-15-2024 10:15-0500 Mean blood pressure 84 mm[Hg] Margareth De La Cruz [facility] 12-15-2024 10:15-0500 Respiratory rate 14 /min Margareth De La Cruz [facility] 12-15-2024 10:15-0500 Systolic blood pressure 130 mm[Hg] Margarethita De La Cruz [facility] 12-07-2024 09:02-0500 Heart rate 69 /min John Cannon [facility] 12-07-2024 09:02-0500 SaO2% (BldA) [Mass fraction] 99 % John Cannon [facility] 12-07-2024 09:02-0500 Diastolic blood pressure 50 mm[Hg] John Cannon [facility] 12-07-2024 09:02-0500 Mean blood pressure 70 mm[Hg] John Cannon [facility] 12-07-2024 09:02-0500 Systolic blood pressure 110 mm[Hg] John Cannon [facility] 12-07-2024 09:02-0500 Respiratory rate 16 /min John Cannon [facility] 12-07-2024 08:54-0500 Heart rate 67 /min John Cannon [facility] 12-07-2024 08:54-0500 SaO2% (BldA) [Mass fraction] 99 % John Cannon [facility] 12-07-2024 08:54-0500 Respiratory rate 16 /min John Cannon [facility] 12-07-2024 08:54-0500 Body temperature 97.88 [degF] Lopez Davis [facility] 12-07-2024 08:54-0500 Diastolic blood pressure 56 mm[Hg] John Cannon [facility] 12-07-2024 08:54-0500 Mean blood pressure 76 mm[Hg] Lopez Davis [facility] 12-07-2024 08:54-0500 Systolic blood pressure 118 mm[Hg] John Cannon [facility] 12-07-2024 08:48-0500 Diastolic blood pressure 80 mm[Hg] John Cannon [facility] 12-07-2024 08:48-0500 Systolic blood pressure 109 mm[Hg] John Davis [facility] 12-07-2024 08:45-0500 Heart rate 64 /min John Cannon [facility] 12-07-2024 08:45-0500 SaO2% (BldA) [Mass fraction] 99 % John Cannon [facility] 12-07-2024 08:40-0500 Respiratory rate 15 /min John Cannon [facility] 12-07-2024 07:34-0500 gluc 140 mg/dL John Cannon [facility] Comment on above: Result Comment: per pt's meter on left a 12-07-2024 07:32-0500 Body temperature 97.7 [degF] John Cannon [facility] 12-07-2024 07:32-0500 Mean blood pressure 98 mm[Hg] John Cannon [facility] 10-29-2024 09:08-0500 Diastolic blood pressure 68 mm[Hg] John Cannon [facility] 10-29-2024 09:08-0500 Heart rate 76 /min John Cannon [facility] 10-29-2024 09:08-0500 Respiratory rate 14 /min John Cannon [facility] 10-29-2024 09:08-0500 Systolic blood pressure 121 mm[Hg] John Cannon [facility] 10-13-2024 13:51-0500 Diastolic blood pressure 79 mm[Hg] Margarethita De La Cruz [facility] 10-13-2024 13:51-0500 Mean blood pressure 98 mm[Hg] Margareth De La Cruz [facility] 10-13-2024 13:51-0500 Systolic blood pressure 137 mm[Hg] Margarethita De La Cruz [facility] 09-08-2024 11:49-0400 Heart rate 60 /min John Cannon [facility] 09-08-2024 11:49-0400 SaO2% (BldA) [Mass fraction] 99 % John Cannon [facility] 09-08-2024 11:48-0400 Diastolic blood pressure 66 mm[Hg] John Cannon [facility] 09-08-2024 11:48-0400 Mean blood pressure 96 mm[Hg] John Cannon [facility] 09-08-2024 11:48-0400 Systolic blood pressure 156 mm[Hg] John Cannon [facility] 09-08-2024 11:48-0400 Respiratory rate 16 /min Lopez Davis [facility] 09-08-2024 11:38-0400 Diastolic blood pressure 84 mm[Hg] John Cannon [facility] 09-08-2024 11:38-0400 Heart rate 58 /min John Cannon [facility] 09-08-2024 11:38-0400 Respiratory rate 14 /min Lopez Davis [facility] 09-08-2024 11:38-0400 SaO2% (BldA) [Mass fraction] 96 % Lopez Davis [facility] 09-08-2024 11:38-0400 Systolic blood pressure 151 mm[Hg] Lopez Cannon [facility] 09-08-2024 11:01-0400 gluc 134 mg/dL Lopez Davis [facility] Comment on above: Result Comment: per pt's meter 09-08-2024 10:58-0400 Heart rate 61 /min John Cannon [facility] 09-08-2024 10:58-0400 SaO2% (BldA) [Mass fraction] 99 % John Cannon [facility] 09-08-2024 10:57-0400 Diastolic blood pressure 78 mm[Hg] John Cannon [facility] 09-08-2024 10:57-0400 Mean blood pressure 103 mm[Hg] John Cannon [facility] 09-08-2024 10:57-0400 Systolic blood pressure 152 mm[Hg] John Cannon [facility] 09-08-2024 10:57-0400 Respiratory rate 18 /min John Cannon [facility] 09-08-2024 10:54-0400 Body temperature 97.7 [degF] John Cannon [facility] 08-03-2024 14:37-0400 Diastolic blood pressure 65 mm[Hg] Margareth De La Cruz [facility] 08-03-2024 14:37-0400 Heart rate 62 /min Margareth Fat [employer] [facility] 08-03-2024 14:37-0400 Mean blood pressure 83 mm[Hg] Margareth Fat [employer] [facility] 08-03-2024 14:37-0400 Respiratory rate 16 /min Margareth Fat [employer] [facility] 08-03-2024 14:37-0400 Systolic blood pressure 118 mm[Hg] Margareth Fat [employer] [facility] 05-18-2024 13:07-0400 Diastolic blood pressure 71 mm[Hg] Margareth De La Cruz [facility] 05-18-2024 13:07-0400 Heart rate 59 /min Margareth De La Cruz [facility] 05-18-2024 13:07-0400 Mean blood pressure 99 mm[Hg] Margareth De La Cruz [facility] 05-18-2024 13:07-0400 Respiratory rate 16 /min Margareth Fat [employer] [facility] 05-18-2024 13:07-0400 Systolic blood pressure 156 mm[Hg] Margareth Fat [employer] [facility] 03-27-2024 14:19-0400 Diastolic blood pressure 69 mm[Hg] Margareth De La Cruz [facility] 03-27-2024 14:19-0400 Heart rate 69 /min Margareth De La Cruz [facility] 03-27-2024 14:19-0400 Mean blood pressure 96 mm[Hg] Margareth De La Cruz [facility] 03-27-2024 14:19-0400 Respiratory rate 15 /min Margareth De La Cruz [facility] 03-27-2024 14:19-0400 Systolic blood pressure 151 mm[Hg] Margareth De La Cruz [facility] 02-14-2024 13:32-0400 Diastolic blood pressure 62 mm[Hg] Margareth De La Cruz [facility] 02-14-2024 13:32-0400 Heart rate 66 /min Margareth De La Cruz [facility] 02-14-2024 13:32-0400 Mean blood pressure 87 mm[Hg] Margareth De La Cruz [facility] 02-14-2024 13:32-0400 Respiratory rate 14 /min Margareth De La Cruz [facility] 02-14-2024 13:32-0400 Systolic blood pressure 136 mm[Hg] Margareth De La Cruz [facility] 01-15-2024 14:27-0500 Heart rate 63 /min John Cannon [facility] 01-15-2024 14:27-0500 SaO2% (BldA) [Mass fraction] 100 % John Cannon [facility] 01-15-2024 14:27-0500 Respiratory rate 16 /min John Cannon [facility] 01-15-2024 14:26-0500 Diastolic blood pressure 78 mm[Hg] John Cannon [facility] 01-15-2024 14:26-0500 Mean blood pressure 116 mm[Hg] John Cannon [facility] 01-15-2024 14:26-0500 Systolic blood pressure 192 mm[Hg] John Cannon [facility] 01-15-2024 14:17-0500 Diastolic blood pressure 76 mm[Hg] John Cannon [facility] 01-15-2024 14:17-0500 Heart rate 66 /min John Cannon [facility] 01-15-2024 14:17-0500 Respiratory rate 14 /min John Cannon [facility] 01-15-2024 14:17-0500 SaO2% (BldA) [Mass fraction] 96 % John Cannon [facility] 01-15-2024 14:17-0500 Systolic blood pressure 143 mm[Hg] John Cannon [facility] 01-15-2024 13:42-0500 gluc 128 mg/dL John Cannon [facility] Comment on above: Result Comment: per pt's meter on right arm 01-15-2024 13:30-0500 Heart rate 60 /min Lopez Davis [facility] 01-15-2024 13:30-0500 SaO2% (BldA) [Mass fraction] 99 % John Davis [facility] 01-15-2024 13:30-0500 Body temperature 97.34 [degF] Lopez Davis [facility] 01-15-2024 13:30-0500 Diastolic blood pressure 78 mm[Hg] John Davis [facility] 01-15-2024 13:30-0500 Mean blood pressure 111 mm[Hg] John Cannon [facility] 01-15-2024 13:30-0500 Systolic blood pressure 175 mm[Hg] John Cannon [facility] 01-15-2024 13:29-0500 Respiratory rate 14 /min John Cannon [facility] 12-16-2023 10:23-0500 Diastolic blood pressure 66 mm[Hg] Margareth De La Cruz [facility] 12-16-2023 10:23-0500 Heart rate 70 /min Margareth De La Cruz [facility] 12-16-2023 10:23-0500 Mean blood pressure 92 mm[Hg] Margareth De La Cruz [facility] 12-16-2023 10:23-0500 Respiratory rate 14 /min Margareth De La Cruz [facility] 12-16-2023 10:23-0500 Systolic blood pressure 144 mm[Hg] Margareth Fat [employer] [facility] 11-12-2023 10:00-0500 Body height 182.88 cm Cristobal Ball Other [facility] [employer] Other 11-12-2023 10:00-0500 Body mass index (BMI) [Ratio] 32.46 kg/m2 Cristobal Ball Other [employer] [facility] [employer] Other 11-12-2023 10:00-0500 Body weight 108.59 kg Cristobal Ball Other [employer] [facility] [employer] Other 11-12-2023 10:00-0500 Diastolic blood pressure 76 mm[Hg] Cristobal Ball Other [employer] Other 11-12-2023 10:00-0500 Respiratory rate 16 /min Cristobal Ball Other [facility] [employer] Other 11-12-2023 10:00-0500 Systolic blood pressure 137 mm[Hg] Cristobal Ball Other [facility] [employer] Other 11-08-2023 10:58-0500 Diastolic blood pressure 71 mm[Hg] Margareth De La Cruz [facility] 11-08-2023 10:58-0500 Heart rate 63 /min Margareth De La Cruz [facility] 11-08-2023 10:58-0500 Mean blood pressure 93 mm[Hg] Margareth De La Cruz [facility] 11-08-2023 10:58-0500 Respiratory rate 15 /min Margareth De La Cruz [facility] 11-08-2023 10:58-0500 Systolic blood pressure 136 mm[Hg] Margareth De La Cruz [facility] 09-06-2023 11:09-0400 Diastolic blood pressure 77 mm[Hg] Margareth De La Cruz [facility] 09-06-2023 11:09-0400 Heart rate 59 /min Margareth De La Cruz [facility] 09-06-2023 11:09-0400 Mean blood pressure 106 mm[Hg] Margareth De La Cruz [facility] 09-06-2023 11:09-0400 Respiratory rate 16 /min Margareth De La Cruz [facility] 09-06-2023 11:09-0400 Systolic blood pressure 163 mm[Hg] Margareth De La Cruz [facility] 08-06-2023 14:22-0400 Heart rate 59 /min Himanshu Wright [facility] 08-06-2023 14:22-0400 SaO2% (BldA) [Mass fraction] 99 % Himanshu Adriana [facility] 08-06-2023 14:22-0400 Diastolic blood pressure 91 mm[Hg] Himanshu Adriana [facility] 08-06-2023 14:22-0400 Mean blood pressure 107 mm[Hg] Himanshu Adriana [facility] 08-06-2023 14:22-0400 Systolic blood pressure 139 mm[Hg] Himanshu Adriana [facility] 08-06-2023 14:15-0400 Diastolic blood pressure 80 mm[Hg] Himanshu Adriana [facility] 08-06-2023 14:15-0400 Heart rate 58 /min Himanshu Adriana [facility] 08-06-2023 14:15-0400 SaO2% (BldA) [Mass fraction] 97 % Himanshu Adriana [facility] 08-06-2023 14:15-0400 Systolic blood pressure 146 mm[Hg] Himanshu Adriana [facility] 08-06-2023 13:52-0400 Respiratory rate 14 /min Himanshu Adriana [facility] 08-06-2023 13:00-0400 Body temperature 98.06 [degF] Himanshu Adriana [facility] [facility] 08-[facility]23 13:00-0400 Diastolic blood pressure 70 mm[Hg] Himanshu Adriana [facility] 08-06-2023 13:00-0400 Heart rate 67 /min Himanshu Adriana [facility] 08-06-2023 13:00-0400 Systolic blood pressure 144 mm[Hg] Himanshu Adriana [facility] 07-02-2023 14:17-0400 Diastolic blood pressure 71 mm[Hg] Margareth De La Cruz [facility] 07-02-2023 14:17-0400 Heart rate 61 /min Margareth De La Cruz [facility] 07-02-2023 14:17-0400 Mean blood pressure 97 mm[Hg] Margarethita De La Cruz [facility] 07-02-2023 14:17-0400 Respiratory rate 14 /min Margareth De La Cruz [facility] 07-02-2023 14:17-0400 Systolic blood pressure 148 mm[Hg] Margareth De La Cruz [facility] 01-11-2023 13:43-0500 Diastolic blood pressure 75 mm[Hg] Margareth De La Cruz [facility] 01-11-2023 13:43-0500 Heart rate 76 /min Margareth De La Cruz [facility] 01-11-2023 13:43-0500 Mean blood pressure 105 mm[Hg] Margareth De La Cruz [facility] 01-11-2023 13:43-0500 Respiratory rate 18 /min Margareth De La Cruz [facility] 01-11-2023 13:43-0500 Systolic blood pressure 166 mm[Hg] Margareth De La Cruz [facility] 01-08-2023 13:30-0500 Body height 182.88 cm Cristobal Kearns Other [employer] [facility] [employer] Other 01-08-2023 13:30-0500 Body mass index (BMI) [Ratio] 32.11 kg/m2 Cristobal Ball Other [employer] Other 01-08-2023 13:30-0500 Body weight 107.41 kg Cristobal Ball Other [facility] Other 01-08-2023 13:30-0500 Diastolic blood pressure 70 mm[Hg] Cristobal Ball Other [employer] [facility] [employer] Other 01-08-2023 13:30-0500 Respiratory rate 16 /min Cristobal Ball Other [facility] [employer] Other 01-08-2023 13:30-0500 Systolic blood pressure 126 mm[Hg] Cristobal Ball Other [facility] [employer] Other 12-12-2022 11:00-0500 Heart rate 73 /min Tutu Zumbar [facility] 12-12-2022 11:00-0500 SaO2% (BldA) [Mass fraction] 98 % Tutu Zumbar [facility] 12-12-2022 11:00-0500 Diastolic blood pressure 75 mm[Hg] Tutu Zumbar [facility] 12-12-2022 11:00-0500 Mean blood pressure 108 mm[Hg] Tutu Zumbar [facility] 12-12-2022 11:00-0500 Systolic blood pressure 173 mm[Hg] Tutu Zumbar [facility] 12-12-2022 10:51-0500 Diastolic blood pressure 88 mm[Hg] Tutu Zumbar [facility] 12-12-2022 10:51-0500 Heart rate 71 /min Tutu Zumbar [facility] 12-12-2022 10:51-0500 Respiratory rate 16 /min Tutu Zumbar [facility] 12-12-2022 10:51-0500 SaO2% (BldA) [Mass fraction] 96 % Tutu Zumbar [facility] 12-12-2022 10:51-0500 Systolic blood pressure 157 mm[Hg] Tutu Zumbar [facility] 12-12-2022 10:13-0500 Heart rate 75 /min Tutu Zumbar [facility] 12-12-2022 10:13-0500 SaO2% (BldA) [Mass fraction] 97 % Tutu Zumbar [facility] 12-12-2022 10:13-0500 Body temperature 97.88 [degF] Tutu Zumbar [facility] 12-12-2022 10:12-0500 Diastolic blood pressure 76 mm[Hg] Tutu Zumbar [facility] 12-12-2022 10:12-0500 Mean blood pressure 108 mm[Hg] Tutu Zumbar [facility] 12-12-2022 10:12-0500 Systolic blood pressure 170 mm[Hg] Tutu Zumbar [facility] 12-12-2022 10:10-0500 Respiratory rate 16 /min Tutu Zumbar [facility] 11-08-2022 15:04-0500 Diastolic blood pressure 76 mm[Hg] Tutu Zumbar [facility] 11-08-2022 15:04-0500 Heart rate 62 /min Tutu Zumbar [facility] 11-08-2022 15:04-0500 Mean blood pressure 108 mm[Hg] Tutu Zumbar [facility] 11-08-2022 15:04-0500 Respiratory rate 14 /min Tutu Guzman [facility] 11-08-2022 15:04-0500 Systolic blood pressure 173 mm[Hg] [facility] Encounters Encounter Date Encounter Type Care Provider Facility Start: 12-15-2024 End: 12-15-2024 ambulatory Margareth De La Cruz Facility:[facility] Start: 12-15-2024 End: 12-15-2024 Patient encounter procedure Margareth De La Cruz [facility] Start: 12-07-2024 End: 12-07-2024 ambulatory John Cannon Facility:[facility] Start: 12-07-2024 End: 12-07-2024 Pain Management John Cannon [facility] Start: 11-03-2024 End: 11-03-2024 ambulatory [facility] Start: 10-29-2024 End: 10-29-2024 ambulatory CRISTOBAL KEARNS Facility:[facility] Start: 10-29-2024 End: 10-29-2024 Patient encounter procedure John Cannon [facility] Start: 10-13-2024 End: 10-13-2024 ambulatory Margareth De La Cruz Facility:[facility] Start: 10-13-2024 End: 10-13-2024 Patient encounter procedure Margareth De La Cruz [facility] Start: 09-08-2024 End: 09-08-2024 ambulatory John Cannon Facility:[facility] Start: 09-08-2024 End: 09-08-2024 Pain Management John Cannon [facility] Start: 08-31-2024 End: 08-31-2024 ambulatory [facility] Start: 08-13-2024 End: 08-13-2024 ambulatory [facility] Start: 08-03-2024 End: 08-03-2024 ambulatory Margareth De La Cruz Facility:[facility] Start: 08-03-2024 End: 08-03-2024 Patient encounter procedure Margareth De La Cruz [facility] Start: 07-27-2024 End: 07-27-2024 ambulatory [facility] Start: 05-19-2024 End: 05-19-2024 ambulatory [facility] Start: 05-18-2024 End: 05-18-2024 ambulatory CRISTOBAL KEARNS Facility:[facility] Start: 05-18-2024 End: 05-18-2024 Pain Management Margareth De La Cruz [facility] Start: 05-11-2024 End: 05-11-2024 ambulatory [facility] Start: 05-11-2024 End: 05-11-2024 ambulatory [facility] Start: 03-27-2024 End: 03-27-2024 ambulatory CRISTOBAL KEARNS Facility:[facility] Start: 03-27-2024 End: 03-27-2024 Pain Management Margareth De La Cruz [facility] Start: 03-17-2024 End: 03-17-2024 ambulatory [facility] Start: 02-14-2024 End: 02-14-2024 ambulatory CRISTOBAL KEARNS Facility:[facility] Start: 02-14-2024 End: 02-14-2024 Pain Management Margareth De La Cruz [facility] Start: 02-11-2024 End: 02-11-2024 ambulatory Cristobal Kearns Other [employer] Other Start: 02-11-2024 Telephone encounter Cristobal TELLEZ [facility] Start: 01-20-2024 End: 01-20-2024 ambulatory [facility] Start: 01-15-2024 End: 01-15-2024 ambulatory John Cannon Facility:[facility] Start: 01-15-2024 End: 01-15-2024 Pain Management John Cannon [facility] Start: 01-01-2024 End: 01-01-2024 ambulatory [facility] Start: 12-16-2023 End: 12-16-2023 Pain Management Margareth De La Cruz [facility] Start: 11-27-2023 End: 11-27-2023 ambulatory Cristobal Kearns Other [employer] Other Start: 11-27-2023 Telephone encounter Cristobal TELLEZ [facility] Start: 11-19-2023 End: 11-19-2023 ambulatory Cristobal Kearns Other [employer] Other Start: 11-19-2023 Telephone encounter Cristobal TELLEZ [facility] Start: 11-14-2023 End: 11-14-2023 ambulatory Cristobal Kearns Other [employer] Other Start: 11-14-2023 Telephone encounter Cristobal TELLEZ [facility] Start: 11-12-2023 End: 11-12-2023 ambulatory Cristobal Kearns Other [employer] Other Start: 11-12-2023 Office outpatient vi sit 25 minutes Cristobal Kearns [facility] Start: 11-08-2023 End: 11-08-2023 Pain Management Margareth De La Cruz [facility] Start: 09-06-2023 End: 09-06-2023 Pain Management Margareth De La Cruz [facility] Start: 09-04-2023 End: 09-04-2023 ambulatory Cristobal Ball Other [employer] Other Start: 09-04-2023 Telephone encounter Cristobal Ball [facility] Start: 08-21-2023 End: 08-21-2023 ambulatory Cristobal Ball Other [employer] Other Start: 08-21-2023 Telephone encounter Cristobal Ball [facility] Start: 08-06-2023 End: 08-06-2023 Pain Management Himanshu Wright [facility] Start: 07-23-2023 End: 07-23-2023 ambulatory Cristobal Ball Other [employer] Other Start: 07-23-2023 Telephone encounter Cristobal Ball [facility] Start: 07-02-2023 End: 07-02-2023 Pain Management Margareth De La Cruz [facility] Start: 03-19-2023 End: 03-19-2023 ambulatory Cristobal Ball Other [employer] Other Start: 03-19-2023 Office outpatient vi sit 15 minutes Cristobal Ball [facility] Start: 03-08-2023 End: 03-08-2023 ambulatory Cristobal Ball Other [employer] Other Start: 03-08-2023 Telephone encounter Cristobal Ball [facility] Start: 03-07-2023 Telephone encounter Cristobal Ball [facility] Start: 03-07-2023 End: 03-08-[address] CRISTOBAL KEARNS [facility] [employer] Other Start: 02-26-2023 End: 02-26-2023 ambulatory Cristobal Kearns Other [facility] Other Start: 02-26-2023 Telephone encounter Cristobal Kearns [facility] Start: 01-18-2023 Telephone encounter Cristobal Kearns [facility] Start: 01-18-2023 End: 01-19-[address] DOCTOR ADAMS [facility] [employer] Other Start: 01-11-2023 End: 01-11-2023 Pain Management Margareth De La Cruz [facility] Start: 01-08-2023 End: 01-08-2023 ambulatory Cristobal Kearns Other [facility] [employer] Other Start: 01-08-2023 Office outpatient vi sit 25 minutes Cristobal Kearns [facility] Start: 12-12-2022 End: 12-12-2022 Pain Management Tututate Katzar [facility] Start: 11-23-2022 End: 11-23-[address] CRISTOBAL KEARNS Facility:[facility] Start: 11-18-2022 End: 11-22-[address] CRISTOBAL KEARNS Facility:[facility] Start: 11-08-2022 End: 11-08-2022 Patient encounter procedure Tutu Zumbar [facility] Start: 11-08-2022 End: 11-08-2022 Pain Management Tutu Barriosumbar [facility] Start: 08-29-2022 End: 08-30-[address] DOCTOR ADAMS Facility:[facility] Start: 07-31-2022 End: 08-01-[address] MOI MOSS Facility:[facility] Start: 07-02-2022 Encounter for preprocedural laboratory examination DR CRISTOBAL KEARNS [facility] Start: 06-29-2022 End: 06-30-2022 Encounter for preprocedural laboratory examination DR CRISTOBAL KEARNS Facility:[facility] Start: 06-29-2022 End: 06-30-[address] CRISTOBAL KEARNS Facility:[facility] Start: 06-14-2022 End: 11-17-[address] CRISTOBAL KEARNS Facility:[facility] Start: 03-13-2022 End: 03-14-2022 ambulatory LUPIS DENNIS Facility:[facility] Procedures Date Procedure Procedure Detail Performing Clinician Start: 12-07-2024 Minimally invasive decompression of lumbar spine [facility] Start: 05-11-2024 Follow-up visit Follow-up DIONY ARIZA Start: 01-15-2024 Epidural injection o f lumbar spine using fluoroscopic guidance [facility] Comment on above: 0% relief Start: 08-06-2023 Injection of nerve r oot of lumbar spine using fluoroscopic guidance [facility] Comment on above: bilat L5/S1 TFESI- 9 0% relief x 2 weeks Start: 12-12-2022 Injection of nerve r oot of lumbar spine using fluoroscopic guidance [facility] Comment on above: L5-S1-90% relief Start: 04-17-2022 PSA screening LUPIS DENNIS Comment on above: Performed By: #### 4 [id number] #### [address] Start: 11-22-2021 Injection of nerve r oot of lumbar spine using fluoroscopic guidance Tutu Guzman Comment on above: Bilateral L5 TFESI-9 0-95% relief Start: 07-01-2020 Epidural steroid injection Tutu Guzman Comment on above: bilat L5 TFESI- 100% relief x 2 weeks now down to 50% Start: 1950 Epidural injection o f lumbar spine using fluoroscopic guidance [place] Coronary bypass gustabo t angiography Tutu Guzman Comment on above: 2004 Decompression of med oleksandr nerve Tutu Guzman Comment on above: right 2013 Fracture of ankle (disorder) Tutu Guzman Comment on above: 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 purified surface antigen) Cristobal Kearns Other [employer] Other 08-11-2021 COVID-19 Vaccine Pfi zer - Documentation Purposes Only Cristobal Kearns Other [employer] Other 01-10-2021 COVID-19 Vaccine Pfi zer - Documentation Purposes Only Cristobal Kearns Other [employer] Other 12-20-2020 COVID-19 Vaccine Pfi zer - Documentation Purposes Only Cristobal Kearns Other [employer] Other 08-12-2020 zoster vaccine, live Benjami yonathan Kearns Other [employer] Other 07-27-2020 influenza virus vaccine, split virus (incl. purified surface antigen) Cristobal Kearns Other [employer] Other 08-26-2019 influenza virus vaccine, split virus (incl. purified surface antigen) Cristobal Kearns Other [employer] Other 10-29-2018 influenza virus vaccine, split virus (incl. purified surface antigen) Cristobal Kearns Other [employer] Other 07-19-2017 influenza virus vaccine, split virus (incl. purified surface antigen) Cristobal Kearns Other [employer] Other 10-09-2016 influenza virus vaccine, split virus (incl. purified surface antigen) Cristobal Kearns Other [employer] Other 10-18-2015 influenza virus vaccine, split virus (incl. purified surface antigen) Cristobal Kearns Other [employer] Other 09-20-2015 pneumococcal conjuga te vaccine, 13 valent Cristobal Kearns Other [employer] Other 11-07-2012 pneumococcal polysaccharide vaccine, 23 valent Cristobal Kearns Other [employer] Other Payers Date Payer Category Payer Private Health Insurance [id number] 1950 Unknown [id number] 2.16.8 [id number] 1950 Unknown [id number] 2.16.84 0.1.805121.3.579.2.593 1950 Unknown [id number] 2.16.84 0.1.696493.3.579.2.593 1950 Unknown [id number] 2.16.84 0.1.687077.3.579.2.593 1950 Unknown [id number] 2.16.84 0.1.134054.3.579.2.593 1950 Unknown [id number] 2.16.84 0.1.946608.3.579.2.593 1950 Unknown [id number] 2.16.84 0.1.818168.3.579.2.593 1950 Unknown [id number] 2.16.84 0.1.165454.3.579.2.593 1950 Unknown [id number] 2.16.84 0.1.214248.3.579.2.593 1950 Unknown [id number] 2.16.84 0.1.219263.3.579.2.593 1950 Unknown [id number] 2.16.8 40.1.146760.3.579.2.727 1950 Unknown [id number] 2.16.8 40.1.948163.3.579.2.727 1950 Unknown [id number] 2.16.8 40.1.398486.3.579.2.727 1950 Unknown [id number] 2.16.8 40.1.078438.3.579.2.727 1950 Unknown [id number] 2.16.8 40.1.866597.3.579.2.727 1950 Unknown [id number] 2.16.8 40.1.027793.3.579.2.727 1950 Unknown [id number] 2.16.8 40.1.863283.3.579.2.727 1950 Unknown [id number] 2.16.8 40.1.368355.3.579.2.727 1950 Unknown [id number] 2.16.8 40.1.490409.3.579.2.727 1950 Unknown [id number] 2.16.8 40.1.457585.3.579.2.727 Social History Date Type Detail Facility Start: 10-05-2021 Tobacco smoking status Ex-smoker (fi nding) [facility] Comment on above: Quit in 1982 Sex Assigned At Male [facility] Medical Equipment Procedure Code Equipment Code Equipment Origin al Text Equipment Identifier Dates Start: 04-09-2023 Functional Status Date Assessment Result Facility 12-15-2024 Functional Status N/A [facility] 12-07-2024 Functional Status N/A [facility] 10-29-2024 Functional Status N/A [facility] 10-13-2024 Functional Status N/A [facility] 09-08-2024 Functional Status N/A [facility] 08-03-2024 Functional Status N/A [facility] 05-18-2024 Functional Status N/A [facility] 03-27-2024 Functional Status N/A [facility] 02-14-2024 Functional Status N/A [facility] 01-15-2024 Functional Status N/A [facility] 12-16-2023 Functional Status N/A [facility] 11-08-2023 Functional Status N/A [facility] 09-06-2023 Functional Status N/A [facility] 08-06-2023 Functional Status N/A [facility] 07-02-2023 Functional Status N/A [facility] 01-11-2023 Functional Status N/A [facility] 12-12-2022 Functional Status N/A [facility] 11-08-2022 Functional Status N/A [facility] Clinical Notes 01-08-2023 to 12-15-2024 Note Date & Type Note Facility 12-15-2024 Evaluation + Plan note Extrac priscilla from: Title:Pain Managment Follow up Author:Margareth Umaña Date:12/15/24 Impression and Plan Patient is a 74-year-old male with a past medical history segment for lumbar stenosis and lumbar neuritis following up today after undergoing an L4-5 mild procedure on 12/07/2024. At this time, he has gotten significant relief. He states that things are improving. At this time, he already feels like this was well worth it. He is feeling better and doing better. He is comfortable and happy. At this time, wound care was discussed. Restrictions were discussed. I would recommend he continue to give himself some more recovery time. Patient voiced understanding. At this time, he is going to follow-up in 3 to 4 weeks but he wonders about possibly canceling the appointment if he is feeling well. He we will follow-up in a few weeks and call us in the interim should he require anything from our services LEONOR score: 38%. Future Appointments Appointment Date:01/12/2025 10:30:00 AM Scheduled Provider:Margareth De La Cruz PA-C Location:.[facility] Appointment Type:Pain Management - Follow Up (FT) [facility] 01-28-2025 NoteConsultation Note Patient: TRAE PINEDA Age: 74 years Sex: Male : 1950 Associated Diagnoses: None Author: Margareth De La Cruz PA-C Subjective Chief complaint 12/15/2024 10:15 EST f/u lower back pain . Patient is a 74-year-old male following up today after undergoing an L4-5 mild procedure on 12/07/2024 at this time has given him improvement. He states that the first couple days were perfect. He really did not have any pain because of the steroid. He feels that at this time, this procedure has already been well worth it. He is able to walk further. He is able to stand longer. He states that he has been able to do more. He still has some pain and some difficulties but he states overall, things are going well. He did not tolerate Lyrica due to swelling. He is not on any medications by our services. He is hopeful that things are going to continue to improve. He is overall very pleased. He wants to start some aquatic therapy and work on his leg strengthening once he is able to. Health Status Allergies: Allergic Reactions (Selected) Severity Not Documented HydrALAZINE- Palpatations. Lyrica- Swelling. Statins- Muscle ache., Allergies (3) Active Severity Reaction statins muscle ache hydrALAZINE palpatations Lyrica Swelling Current medications: (Selected) Prescriptions Prescribed baclofen 5 mg oral tablet: 5 mg = 1 tab(s), Oral, TID, PRN Spasm, # 30 tab(s), Refills(s) 0, Pharmacy: [facility]/pharmacy #[id number], 183, cm, 02/14/24 13:46:00 EDT, Height/Length Dosing, 110.3, kg, 02/14/24 13:46:00 EDT, Weight Dosing Documented Medications Documented Alpha Lipoic Acid 600 mg oral capsule: 600 mg = 1 cap(s), Oral, Daily, Refills(s) 0 Cialis 5 mg oral tablet: 5 mg = 1 tab(s), Oral, Daily, Refills(s) 0 Humulin 70/30: 25-10 units, BIDAC, Refill(s) 0 Misc Medication: CBD 250 Topical Cream, as needed Norvasc: 5 mg, Oral, Daily, Refills(s) 0 [...] = 1 tab(s), Oral, Daily, Refills(s) 0 dutasteride 0.5 mg Cap: 0.5 mg = 1 cap(s), Oral, Daily, TAKE 1 CAPSULE BY MOUTH IN THE MORNING lisinopril: 10 mg, Daily, Refills(s) 0 loratadine 10 mg oral capsule: 10 mg = 1 cap(s), Oral, Daily, # 10 cap(s), Refills(s) 0 testosterone 2% transdermal cream: See Instructions, apply topically daily, Refills(s) 0 Problem list: All Problems History of heart attack / SNOMED CT 7655320464 / Confirmed Acute angina / SNOMED CT 857021963 / Confirmed Irregular heart beat / SNOMED CT 251435209 / Confirmed HTN (hypertension) / SNOMED CT 5068832856 / Confirmed High cholesterol / SNOMED CT 57197973 / Confirmed H/O heart bypass surgery / SNOMED CT 860464623 / Confirmed Apnea, sleep / SNOMED CT 747645809 / Confirmed CPAP (continuous positive airway pressure) dependence / SNOMED CT 4237132234 / Confirmed Enlarged prostate / SNOMED CT 588238136 / Confirmed Chronic kidney disease (CKD) / SNOMED CT 3514999222 / Confirmed Diabetes / SNOMED CT 890300070 / Confirmed Carpal tunnel syndrome / SNOMED CT 71045619 / Confirmed Anemia / SNOMED CT 833268644 / Confirmed Arthritis, rheumatoid / SNOMED CT 682635605 / Confirmed Obesity / ICD-9-CM 278.00 / Possible Obesity / SNOMED CT [id number] / Possible Objective Vital Signs 12/15/2024 10:15 EST Peripheral Pulse Rate 67 bpm Respiratory Rate 14 br/min Systolic Blood Pressure 130 mmHg Diastolic Blood Pressure 61 mmHg Mean Arterial Pressure, Cuff 84 mmHg General: Alert and oriented, No acute distress. Eye: Normal conjunctiva. HENT: Normocephalic, Normal hearing. Cardiovascular: No edema. Musculoskeletal Normal range of motion. Normal strength. 5/5 strength Integumentary: Warm, Dry, [place]. Small area of eschar Some glue residue was removed Neurologic: Alert, Oriented. Psychiatric: Cooperative, Appropriate mood & affect. 14 point review of systems was negative unless otherwise noted. Impression and Plan Patient is a 74-year-old male with a past medical history segment for lumbar stenosis and lumbar neuritis following up today after undergoing an L4-5 mild procedure on 12/07/2024. At this time, he hasgotten significant relief. He states that things are improving. At this time, he already feels likethis was well worth it. He is feeling better and doing better. He is comfortable and happy. At thistime, wound care was discussed. Restrictions were discussed. I would recommend he continue to give himself some more recovery time. Patient voiced understanding. At this time, he is going to follow-up in 3 to 4 weeks but he wonders about pos (more content not included)...[facility] Comment on above:Result Comment: Electronically Signed By: Jono AGOSTO, Margareth\.br\Date and Time Signed: 12/15/24 10:41 [id number] Evaluation + Plan noteExtracted from: Title:ANES Post-operative Note - MAC Author:Gerber Arriaga Jr., DO Date:12/07/24 Plan Transfer/Discharge: Transfer/Discharge Discharge when meets criteria. 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 Z00.6 Procedure: Bilateral minimally invasive lumbar decompression at L4/5 Anesthesia: MAC Fluids: 300mL EBL: 1mL Patient was evaluated the preoperative holding area and identified as the correct patient and procedure was explained, risk and benefits were discussed with the patient. An IV was started and 2 g of Ancef was given preoperatively. The patient was then consented by the anesthesia team. Next, the patient was brought to the procedure area and placed on monitors by the anesthetic team. He was placed in the prone position and all pressure points were padded and patient was evaluated to be in appropriate anatomic position. Next, a timeout was performed. Then the lumbar area with prepped with a ChloraPrep. Next, sterile drapes were applied to the patient. Bony landmarks were then identified using fluoroscopy. Local anesthetic of 2.0% lidocaine with epinephrine was injected subcutaneously to anesthetize the needle bah to the appropriate anatomic landmarks bilaterally. Next, the cannula was then advanced in AP and contralateral views to the appropriate anatomic landmarks on the left side first. Once the working channel was in place, next, the Kerrison device was used to remove bone on the inferior portion of the lamina as well as superior portion of the lower lamina segment. Next, a tissue sculptor was utilized to remove soft tissue and ligament. Then our attention was directed to the right where the same procedure was repeated. Next, skin was localized over the L5/S1 segment and a 17-gauge Touhy needle was then advanced into the appropriate space using rdpz-rj-zlzbhxjbsl and confirmed by fluoroscopy and contrast spread. The contrast did not reveal any abnormal uptake or any evidence of dural tear and showed smooth contour. Next, 10 mg of dexamethasone with 1 cc of normal saline was injected into the epidural space. All instruments were removed from the patient and then the wound was cleaned with sterile saline. Next, skin glue was used for the small incisions, 2 of them, on lower lumbar region. Then a Telfa was then applied over the incision with a Tegaderm dressing. The patient was then brought to the postoperative area in stable condition without acute issue. Follow-Up: We will plan to follow-up with the patient post procedurally, all instructions were reviewed with the patient before leaving the discharge area. Patient voiced understanding of postprocedural plan and will call with any questions or issues periprocedurally. Extracted from: Title:ANES Pre-operative Note - Pain Mgt Author: Gerber Catalan Jr., DO Date:12/07/24 Plan [place] [employer]hesi[employer] (ASA) physical status classification: Class III. Anesthetic Preoperative Plan: Anesthesia Monitored anethesia care. Future Appointments Appointment Date:12/15/2024 10:15:00 AM Scheduled Provider:Margareth De La Cruz PA-C Location:[facility] Appointment Type:Pain Management - Follow Up (FT) [facility] [id number] NoteProgress Note-Physician Patient: TRAE PINEDA Age: 74 years Sex: Male : 1950 Associated Diagnoses: None Author: Gerber Catalan Jr., DO Postoperative Information Postoperative disposition: Postoperative disposition: To PACU. Optimetrix number: Optimetrix number [id number]. Anesthetic utilized: Monitored anesthesia care. Physical Examination Vital signs stable. Pain Assessment: Controlled. General: Awake, Alert, Appropriate. Respiratory: Adequate air exchange, Equal bilateral chest wall expansion, Non-labored. Cardiovascular: Stable, Normal peripheral perfusion. Neurological: Normal sensory function. Assessment Anesthetic outcome No anesthetic complications noted. Review / Management Condition: Stable. Plan Transfer/Discharge: Transfer/Discharge Discharge when meets criteria.[facility] CenterComment on above:Result Comment: Electronically Signed By: Gerber Catalan Jr., DO\.br\Date and Time Signed: 12/07/24 12:41 [id number] NoteProgress Note-Physician Patient: TRAE PINEDA Age: 74 years Sex: Male : 1950 Associated Diagnoses: None Author: Gerber Catalan Jr., DO Preoperative Information NPO after midnight Review of Systems Eye Respiratory: Negative except as documented in history of present illness. Cardiovascular: Negative except as documented in history of present illness. Health Status Allergies: Allergic Reactions (Selected) Severity Not Documented HydrALAZINE- Palpatations. Statins- Muscle ache., Allergies (2) Active Severity Reaction statins muscle ache hydrALAZINE palpatations Current medications: (Selected) Prescriptions Prescribed Lyrica 25 mg Cap: See Instructions, 1-2 cap(s) Oral BID, # 120 cap(s), Refills(s) 0, Pharmacy: [facility]/pharmacy #[id number], 183, cm, 10/13/24 14:06:00 EST, Height/Length Dosing, 104.3, kg, 10/13/24 14:06:00 EST, Weight Dosing baclofen 5 mg oral tablet: 5 mg = 1 tab(s), Oral, TID, PRN Spasm, # 30 tab(s), Refills(s) 0, [id number], cm, 02/14/24 13:46:00 EDT, Height/Length Dosing, 110.3, kg, 02/14/24 13:46:00 EDT, Weight Dosing Documented Medications Documented Alpha Lipoic Acid 600 mg oral capsule: 600 mg = 1 cap(s), Oral, Daily, Refills(s) 0 Cialis 5 mg oral tablet: 5 mg = 1 tab(s), Oral, Daily, Refills(s) 0 Humulin 70/30: 25-10 units, BIDAC, Refill(s) 0 Misc Medication: CBD 250 Topical Cream, as needed Norvasc: 5 mg, Oral, Daily, Refills(s) 0 [...] = 1 tab(s), Oral, Daily, Refills(s) 0 dutasteride 0.5 mg Cap: 0.5 mg = 1 cap(s), Oral, Daily, TAKE 1 CAPSULE BY MOUTH IN THE MORNING lisinopril: 10 mg, Daily, Refills(s) 0 loratadine 10 mg oral capsule: 10 mg = 1 cap(s), Oral, Daily, # 10 cap(s), Refills(s) 0 testosterone 2% transdermal cream: See Instructions, apply topically daily, Refills(s) 0, Home Medications (19) Active Alpha Lipoic Acid 600 mg oral capsule 600 mg = 1 cap(s), Oral, Daily aspirin 81 mg, Daily baclofen 5 mg oral tablet 5 mg = 1 tab(s), PRN, Oral, TID calcium (as carbonate) 600 mg oral tablet 600 mg = 1 tab(s), Oral, Daily Cialis 5 mg oral tablet 5 mg = 1 tab(s), Oral, Daily dutasteride 0.5 mg Cap 0.5 mg = 1 cap(s), Oral, Daily Humulin 70/30 25-10 units, BIDAC lisinopril 10 mg, Daily loratadine 10 mg oral capsule 10 mg = 1 cap(s), Oral, Daily Lyrica 25 mg Cap See Instructions Misc Medication Norvasc 5 mg, Oral, Daily PreserVision AREDS 1 cap(s), Oral, Daily Ranexa 500 mg, Oral, BID Repatha 140 mg/mL subcutaneous solution , SubCutaneous, q2wk testosterone 2% transdermal cream See Instructions Tylenol 500 mg, PRN Vitamin C 500 mg, Oral, Daily Zetia 10 mg, Oral, Daily , No qualifying data available Problem list: All Problems Acute angina / SNOMED CT 584371792 / Confirmed Anemia / SNOMED CT 958998738 / Confirmed Apnea, sleep / SNOMED CT 267189722 / Confirmed Arthritis, rheumatoid / SNOMED CT 697501454 / Confirmed Carpal tunnel syndrome / SNOMED CT 79825387 / Confirmed Chronic kidney disease (CKD) / SNOMED CT 8783039803 / Confirmed CPAP (continuous positive airway pressure) dependence / SNOMED CT 6225773309 / Confirmed Diabetes / SNOMED CT 316133069 / Confirmed Enlarged prostate / SNOMED CT 652342027 / Confirmed H/O heart bypass surgery / SNOMED CT 468314001 / Confirmed High cholesterol / SNOMED CT 17826283 / Confirmed History of heart attack / SNOMED CT 6062122549 / Confirmed HTN (hypertension) / SNOMED CT 1505143156 / Confirmed Irregular heart beat / SNOMED CT 445960000 / Confirmed Obesity / ICD-9-CM 278.00 / Possible Obesity / SNOMED CT [id number] / Possible Histories Past Medical History: No active or resolved past medical history items have been selected or recorded. Procedure history: L5/S1 lumbar interlaminar epidural steroid injection ([id number]) on 01/15/2024 at 73 Years. Comments: 02/14/2024 13:35 EDT - Lupis Manzo 0% relief Transforaminal Epidural Steroid Injection ([id number]) on 08/06/2023 at 73 Years. Comments: 09/06/2023 11:11 JUAN CARLOS Griggs RN, Heather chun L5/S1 TFESI- 90% relief x 2 weeks Injection of nerve root of lumbar spine using fluoroscopic guidance ([id number]) on 12/12/2022 at 72Years. Comments: 01/11/2023 13:49 Mago Landa RN L5-S1-90% relief Bilateral L5 TFESI ([id number]) on 11/22/2021 at 71 Years. Comments: 12/29/2021 12:59 Lula Erazo RN Bilateral L5 TFESI-90-95% relief Transforaminal Epidural steroid injection-B/L L5 ([id number]) on 07/01/2020 at 70 Years. Comm (more content not included)...[facility] CenterComment on above: Result Comment: Electronically Signed By: Gerber Catalan Jr., DO\Date and Time Signed: 12/07/24 07:16 [id number] NoteUrology Documentation Note Trae Pineda is a 74 y.o. male 1950 12/02/24 Patient was not seen in clinic Patient is requesting refills on medications including dutasteride 0.5 mg p.o. daily AndroGel/testosterone 1.62%, 2 pumps daily, apply to upper chest and/or shoulders.. -Prescription will be sent to patient's pharmacy. Need to ensure patient is applying AndroGel correctly. Along superficial dwell time, 2 hours, the day of laboratory assessment, and submitting labs by 8 to 10 AM after 2-hour dwell. Patient is also on other medicines from urology including Myrbetriq and alfuzosin, will request for MA to confirm that he is taking all medicines prescribed. Will ask Urology clinic [place] to update patient regarding the above. Morenita Larsen CNP Urology/Renal Transplant [facility] 11-03-2024 NoteUrology Clinic H&P Dr. Diony Ariza MD Patient: Trae Pineda Date of : 1950 CHIEF COMPLAINT: Low testosterone, BPH HISTORY OF PRESENT ILLNESS: 11/03/24 I, Tonja Macias (scribe), documented on behalf of Dr. Naina Vail. Mr. Pineda is present for a follow up appointment regarding his hypogonadism and low testosterone. Since his previous visit in July for a prostate ultrasound, he reports significant improvement of his urinary retention since starting his medication. Mr. Pineda states that he is still having urinary urgency and incontinence. He describes the experience as getting the urge but, about fci to the bathroom when he begins to leak. He will need to change his clothing more than once during the day. Mr. Pineda states he is taking dutasteride, Myrbetriq and Cialis without any complication or concern. Myrbetriq helped with urgency and frequency Prostate cancer screening FH of prostate cancer: father PSA Trend 0.81 (10/26/24) 2.38 (2024) 2.2 (09/2023) 2.41 (08/2023) 2.1 (05/2023) 2.0 (02/2023) 1.4 (03/2022) Urinary urgency Patient states that when he has to go, he cannot hold it. He reports that sometimes he is unable to make it to the bathroom History of terminal dribbling to the point that he has to change his clothes Bothersome urgency with frequency AUA symptom score is 15 lwifcpw-dj-wunz is 4 UDS - delayed sensation Incomplete bladder emptying After urinating, patient reports that he often feels as if he is not emptying completely. High pressure low flow void Suggestive of outlet obstruction Incomplete voiding. Hypogonadism Testosterone levels 263 on 10/26/24 518 on 03/04/24 444 on 11/26/23 374 on 08/30/23 Patient does report a history of chronic back pain. Sensation is intact and first sensation is delayed at 361 cc 3- Strong desire is [...] 4- EMG showed Dysfunctional firing during void Historical: 12/10/23 History of chronic bacterial prostatitis [...] felt with starting of TRT Testosterone level 263 (10/2024) 444 (11/2023) 374 (08/2023) 510 (05/2023) 359 [...] FH of prostate cancer: father PSA Trend 0.81 (10/2024) 2.38 (02/2024) 2.2 (09/2023) 2.41 (08/2023) 2.1 (05/2023) 2.0 [...] He had done well with his urination (more content not included)...[facility] NoteConsultation Note Patient: TRAE PINEDA Age: 74 years Sex: Male : 1950 Associated Diagnoses: None Author: Margareth De La Cruz PA-C Subjective Chief complaint 10/13/2024 13:51 EST low back pain . Patient is a 74-year-old male following up today after undergoing bilateral L4-5 transforaminal epidural steroid injection. This was done on 09/08/2024. It gave him 90% relief for 3 weeks but unfortunate, some of his back pain with leg pain is returning. He is also having some issues with his rightankle. He would like to see an orthopedic doctor for the right ankle. He was very happy with how much relief he got after the injection but is somewhat discouraged as the pain is starting to return. He rates it a 1???9/10. He has a history of laminectomy in the lumbar spine. 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 Some relief but not enough. He did therapyin the past that has not helped. He has done epidural steroid injections in the past. Some helped and some did not. He has taken rxmn-jix-zgqylsm medications again with some improvement not enough. Health Status Allergies: Allergic Reactions (Selected) Severity Not Documented HydrALAZINE- Palpatations. Statins- Muscle ache., Allergies (2) Active Severity Reaction statins muscle ache hydrALAZINE palpatations Current medications: (Selected) Prescriptions Prescribed baclofen 5 mg oral tablet: 5 mg = 1 tab(s), Oral, TID, PRN Spasm, # 30 tab(s), Refills(s) 0, Pharmacy: [facility]/pharmacy #[id number], 183, cm, 02/14/24 13:46:00 EDT, Height/Length Dosing, 110.3, kg, 02/14/24 13:46:00 EDT, Weight Dosing Documented Medications Documented Alpha Lipoic Acid 600 mg oral capsule: 600 mg = 1 cap(s), Oral, Daily, Refills(s) 0 Cialis 5 mg oral tablet: 5 mg [...] = 1 tab(s), Oral, Daily, Refills(s) 0 dutasteride 0.5 mg Cap: 0.5 mg = 1 cap(s), Oral, Daily, TAKE 1 CAPSULE BY MOUTH IN THE MORNING lisinopril: 10 mg, Daily, Refills(s) 0 loratadine 10 mg oral capsule: 10 mg = 1 cap(s), Oral, Daily, # 10 cap(s), Refills(s) 0 testosterone 2% transdermal cream: See Instructions, apply topically daily, Refills(s) 0 Problem list: All Problems History of heart attack / SNOMED CT 3159048106 / Confirmed Acute angina / SNOMED CT 496676422 / Confirmed Irregular heart beat / SNOMED CT 916268980 / Confirmed HTN (hypertension) / SNOMED CT 1409482547 / Confirmed High cholesterol / SNOMED CT 04584633 / Confirmed H/O heart bypass surgery / SNOMED CT 559616102 / Confirmed Apnea, sleep / SNOMED CT 493662691 / Confirmed CPAP (continuous positive airway pressure) dependence / SNOMED CT 5219097093 / Confirmed Enlarged prostate / SNOMED CT 021852385 / Confirmed Chronic kidney disease (CKD) / SNOMED CT 7409411266 / Confirmed Diabetes / SNOMED CT 899278475 / Confirmed Carpal tunnel syndrome / SNOMED CT 71819533 / Confirmed Anemia / SNOMED CT 179714940 / Confirmed Arthritis, rheumatoid / SNOMED CT 054102201 / Confirmed Obesity / ICD-9-CM 278.00 / Possible Obesity / SNOMED CT [id number] / Possible Objective Vital Signs 10/13/2024 13:51 EST Systolic Blood Pressure 137 mmHg Diastolic Blood Pressure 79 mmHg Mean Arterial Pressure, Cuff 98 mmHg General: Alert and oriented, No acute distress. Eye: Normal conjunctiva. HENT: Normocephalic, Normal hearing. Cardiovascular: No edema. Musculoskeletal Normal range of motion. Normal strength. 5/5 lower extremity strength other than right hip flexion, ADF and EHL 4/5 Positive right straight leg raise Integumentary: Warm, Dry, [place]. Neurologic: Alert, Oriented. Psychiatric: Cooperative, Appropriate mood & affect. 14 point review of systems was negative unless otherwise noted. Results Review Lumbar MRI report reviewed. Mild to moderate stenosis at L4-5 with thickened ligamentum flavum Impression and Plan Patient is a 74-year-old male with a past medical history significant for lumbar stenosis and lumbar neuritis. He underwent recent bilateral L4-5 transforaminal epidural steroid injection with significant but short-lived relief. He had 3 weeks of significant relief. Unfortunate, some of his (more content not included)...[facility] CenterComment on above:Result Comment: Electronically Signed By: Margareth De La Cruz PA-C\.br\Date and Time Signed: 10/13/24 14:19 [id number] Evaluation + Plan noteExtracted from: Title:Pain Managment Follow up Author:Margareth Umaña Date:10/13/24 Impression and Plan Patient is a 74-year-old male with a past medical history significant for lumbar stenosis and lumbar neuritis. He underwent recent bilateral L4-5 transforaminal epidural steroid injection with significant but short-lived relief. He had 3 weeks of significant relief. Unfortunate, some of his pain has already started to return. We reviewed the MRI once again. I would like to discuss his case with Dr. Cannon. Possible mild procedure at L4-5. We will give him the information about the mild procedure and we will call him next week with a formal plan of care. In the meantime, he is going to continue on the Lyrica and take 1 in the morning and 3 at night. OARRS was reviewed P does not require refill. He will call when he does. We will call him as well mention. LEONOR score: 38%. [facility] 10-22-2024 Evaluation + Plan noteExtracted from: Title:Bilateral L4/5 transfo raminal epidural steroid injections Author:John Cannon DO Date:09/08/24 Diagnosis: m54.17, lumbosacr al radiculopathy Procedure: Bilateral L4/5 lumbar transforaminal epidural steroid injections under fluoroscopic guidance Anesthesia: Local Complications: none After informed consent was obtained, the patient was brought to the procedure suite placed in the prone position. Pulse oximetry and blood pressure were monitored throughout. The low back area is prepped and draped in usual sterile fashion. Using fluoroscopic guidance, skin and subcutaneous tissue overlying the trajectory of the neuroforamina were anesthetized with 2% lidocaine. A 22-gauge Sprotte needles were then advanced under fluoroscopic guidance to the appropriate foramina. Needle tip positions were confirmed under at least 2 fluoroscopic views. Injection of contrast revealed appropriate spread of the dye without vascular uptake. Next, at each site, 1.5 mL of 1.0% lidocaine with 5 mg of dexamethasone was injected through each needle tip. The needles were then removed and the patient was then transferred to the recovery room in stable condition. The pain tolerated the procedure well. There were no apparent complications. Follow-up: The patient will update us on the response to this procedure, and agrees to comply to currently prescribed/recommended therapies. Future Appointments Appointment Date:10/09/2024 01:15:00 PM Scheduled Provider:Margareth De La Cruz PA-C Location:[facility] Appointment Type:Pain Management - Follow Up (FT) [facility] 10-22-2024 NoteOperative Report Diagnosis: m54.17, lumbosacral radiculopathy Procedure: Bilateral L4/5 lumbar transforaminal epidural steroid injections under fluoroscopic guidance Anesthesia: Local Complications: none After informed consent was obtained, the patient was brought to the procedure suite placed in the prone position. Pulse oximetry and blood pressure were monitored throughout. The low back area is prepped and draped in usual sterile fashion. Using fluoroscopic guidance, skin and subcutaneous tissue overlying the trajectory of the neuroforamina were anesthetized with 2% lidocaine. A 22-gauge Sprotte needles were then advanced under fluoroscopic guidance to the appropriate foramina. Needle tip positions were confirmed under at least 2 fluoroscopic views. Injection of contrast revealed appropriate spread of the dye without vascular uptake. Next, at each site, 1.5 mL of 1.0% lidocaine with 5 mg of dexamethasone was injected through each needle tip. The needles were then removed and the patientwas then transferred to the recovery room in stable condition. The pain tolerated the procedure well. There were no apparent complications. Follow-up: The patient will update us on the response to this procedure, and agrees to comply to currently prescribed/recommended therapies.[facility] Comment on above:Result Comment: Electronically Signed By: John Cannon DO.dawit\Date and Time Signed: 09/08/24 11:45 [id number] NoteUT Cardiology [facility] Subjective Trae Pineda is a 74 y.o. year old male patient being seen for follow up echo and stress test. Says he almost passed out yesterday and was having palpitations. BP was 98/53 and he almost came to the ED. Had a funny feeling in his chest. Says he feels much better today. Had routine labs w/ lipid panel last month also. 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 Suprapubic discomfort [...] calories Type 2 diabetes mellitus with hyperglycemia (CMS/HCC) Lumbar stenosis with neurogenic claudication Type 2 diabetes mellitus with diabetic polyneuropathy (CMS/HCC) Dysuria Cystitis cystica Incomplete bladder emptying Urge urinary incontinence Orthostatic dizziness Family History Problem Relation Name Age of Onset Prostate cancer Father Zak Pineda Social History Tobacco Use Smoking status: Former Types: Cigarettes Quit date: 11/18/1982 Years since quittin.8 Passive exposure: Never Smokeless tobacco: Never Vaping [...] moderate diastolic dysfunction (pseudonormalized LV filling pattern). Nor (more content not included)...[facility]09-26-[facility] NoteProstate US Date/Time: 08/13/2024 2:01 PM Performed by: Diony Ariza MD Authorized by: Diony Ariza MD Procedure discussed: discussed risks, benefits and alternatives Screenplay Writer present: no Timeout: timeout called immediately prior [...] to discuss the results of the procedure, branch credit counselor and answer any questions. All of [...] patient choice Check PVR 08/13/24 - 80 [facility]09-16-2024 NoteConsultation Note Patient: TRAE PINEDA Age: 74 [...] he was driving back and forth to [place] for his . She ended up passing [...] states that he is now trying to manzanita back to do things to help take [...] and some did not. He has taken ygyw-pbu-tmahwhs medications again with some improvement not enough. [...] # 120 tab(s), Refills(s) 0, Pharmacy: [facility]/pharmacy #[id number], 183, cm, 05/18/24 13:21:00 EDT, Height/Length Dosing, 107, kg, 05/18/24 13:21:00 EDT, Weight Dosing baclofen 5 mg oral tablet: 5 mg = 1 tab(s), Oral, TID, PRN Spasm, # 30 tab(s), Refills(s) 0, Pharmacy: [facility]/pharmacy #[id number], 183, cm, 02/14/24 13:46:00 EDT, Height/Length Dosing, 110.3, kg, 02/14/24 13:46:00 EDT, Weight Dosing gabapentin 300 mg Cap: 300 mg = 1 cap(s), Oral, Once a day (at bedtime), # 30 cap(s), Refills(s) 1,[id number], cm, 12/16/23 10:37:00 EST, [...] History of heart attack / SNOMED CT 2259466635 / Confirmed Acute angina / SNOMED CT 791232706 / Confirmed Irregular heart beat / SNOMED CT 656626104 / Confirmed HTN (hypertension) / SNOMED CT 0356547590 / Confirmed High cholesterol / SNOMED CT 24558842 / Confirmed H/O heart bypass surgery / SNOMED CT 504399064 / Confirmed Apnea, sleep / SNOMED CT 626239999 / Confirmed CPAP (continuous positive airway pressure) dependence / SNOMED CT 0213147408 / Confirmed Enlarged prostate / SNOMED CT 324026153 / Confirmed Chronic kidney disease (CKD) / SNOMED CT 3158661775 / Confirmed Diabetes / SNOMED CT 816817053 / Confirmed Carpal tunnel syndrome / SNOMED CT 95779080 / Confirmed Anemia / SNOMED CT 861291499 / Confirmed Arthritis, rheumatoid / SNOMED CT 734519897 / Confirmed Obesity / ICD-9-CM 278.00 / Possible Obesity / SNOMED CT [id number] / Possible Objective Vital Signs 08/03/2024 14:37 [...] right straight leg raise Integumentary: Warm, Dry, [place]. Neurologic: Alert, Oriented. (more content not included)...[facility] CenterComment on above:Result Comment: Electronically Signed By: Margareth De La Cruz PA-C\.br\Date and Time Signed: 08/03/24 14:57 [id number] Evaluation + Plan noteExtracted from: Title:Pain Managment Follow up Author:Margareth Umaña Date:08/03/24 Impression and Plan Patient is a 74-year-old male with a past medical history significant for lumbosacral neuritis and lumbar stenosis. Patient's . I gave our condolences. He states that he is now back to trying to get his symptoms better under control. He has lower back pain with bilateral leg fatigue. He states that his legs just feel tired, weak and heavy. He had previous injections. Some help and some did not. At this time, we reviewed his MRI. We discussed different options. I recommended bilateral L4- 5 transforaminal epidural steroid injection under fluoroscopy for both diagnostic and therapeutic purposes. Procedure was discussed. Risks and benefits were discussed. Patient is agreeable. He will follow-up 2 weeks after the injection for reevaluation. Call clinic in the interim should he require anything from our services. In the meantime he is also continue on Lyrica. He is going to try 25 mg in the morning and 50 mg at night. OARRS reviewed. He will call when refills necessary. Follow-up as above mention. LEONOR score: 53%. 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 Suprapubic discomfort [...] calories Type 2 diabetes mellitus with hyperglycemia (CMS/HCC) Lumbar stenosis with neurogenic claudication Type 2 diabetes mellitus with diabetic polyneuropathy (CMS/HCC) Dysuria Cystitis cystica Incomplete bladder emptying Urge [...] bacterial prostatitis COPD (chronic obstructive pulmonary disease) ([facility]) Coronary artery disease, non-occlusive Depression Diabetes mellitus ([facility]) Erectile dysfunction Hyperlipemia Hypertension Hypogonadism in [...] Drug use: Never Allergies Allergies Allergen Reactions Dcgxvbu-Hwj-Kve Reductase Inhibitors Other Hydralazine Palpitations Other reaction(s): [...] , Rfl: gabapentin (N (more content not included)...[facility] 05-19-2024 Note Attestation signed by Diony Ariza MD at [...] larger. -Postvoid residual today was 228 cc Urology Clinic H&P Dr. Diony Ariza MD [...] with frequency AUA symptom score is 15 fwvegva-ps-oznq is 4 Incomplete bladder emptying After urinating, [...] with frequency AUA symptom score is 15 tpgskcw-th-gatx is 4 Incomplete bladder emptying After urinating, patient reports that he often feels as if he is not emptying completely. Hypogonadism Testosterone levels 518 on 03/04/24 444 on 11/26/23 374 on 08/30/23 Patient does report a history of chronic back pain (more content not included)...[facility]07-01-2024 Evaluation + Plan note Extracted from: Title:Pain Managment Follow up Author:Margareth Umaña [...] La Cruz PA-C Location:.Pain [facility] Appointment Type:Pain Management - Follow Up (FT) [facility]07-01-2024 NoteConsultation Note Patient: TRAE PINEDA Age: [...] BID, # 120 tab(s), Refills(s) 0, [id number], cm, 05/18/24 13:21:00 EDT, Height/Length Dosing, 107, kg, 05/18/24 13:21:00 EDT, Weight Dosing baclofen 5 mg oral tablet: 5 mg = 1 tab(s), Oral, TID, PRN Spasm, # 30 tab(s), Refills(s) 0, [id number], 183, cm, 02/14/24 13:46:00 EDT, Height/Length Dosing, 110.3, kg, 02/14/24 13:46:00 EDT, Weight Dosing gabapentin 300 mg Cap: 300 mg = 1 cap(s), Oral, Once a day (at bedtime), # 30 cap(s), Refills(s) 1,[id number], 183, cm, 12/16/23 10:37:00 EST, [...] History of heart attack / SNOMED CT 7390328706 / Confirmed Acute angina / SNOMED CT 041943908 / Confirmed Irregular heart beat / SNOMED CT 442340091 / Confirmed HTN (hypertension) / SNOMED CT 3626008631 / Confirmed High cholesterol / SNOMED CT 28048379 / Confirmed H/O heart bypass surgery / SNOMED CT 428306927 / Confirmed Apnea, sleep / SNOMED CT 944659504 / Confirmed CPAP (continuous positive airway pressure) dependence / SNOMED CT 7865352372 / Confirmed Enlarged prostate / SNOMED CT 660606335 / Confirmed Chronic kidney disease (CKD) / SNOMED CT 4508441378 / Confirmed Diabetes / SNOMED CT 118369410 / Confirmed Carpal tunnel syndrome / SNOMED CT 55687959 / Confirmed Anemia / SNOMED CT 513323531 / Confirmed Arthritis, rheumatoid / SNOMED CT 720807298 / Confirmed Obesity / ICD-9-CM 278.00 / Possible Obesity / SNOMED CT [id number] / Possible Objective Vital Signs 05/18/2024 13:07 [...] right straight leg raise Integumentary: Warm, Dry, [place]. Neurologic: Alert, Oriented. Psychiatric: Cooperative, Appropriate mood [...] activities affects his ed (more content not included)...[facility] CenterComment on above:Result Comment: Electronically Signed By: Margareth De La Cruz PA-C\.br\Date and Time Signed: 05/18/24 13:44 [id number] NoteDiagnosis: Benign prostatic hyperplasia with incomplete bladder [...] flow void Suggestive of outlet obstruction Incomplete voiding.[facility]06-24-2024 NoteSubjective Patient ID: Trae Pineda is a 74 y.o. male who presents for Follow-up (uds). HPI 05/11/2024 Urodynamics Procedure Pt presents for office [...] Dx: Urge Urinary Incontinence, post-void dribbling Attending: [employer]: Charity Procedure: UroFLow/CMG/EMG/PVR Anesthesia: None Indications: Urge [...] 36 hour(s)). No follow-ups on file. Morenita Larsen CNP Urology/Renal Transplant [facility] 03-27-2024 Evaluation + Plan noteExtracted from: [...] PM Scheduled Provider:Margareth De La Cruz PA-C Location:[facility] Appointment Type:Pain Management - Follow Up (FT) [facility]04-30-2024 NoteUrology Clinic H&P Dr. Diony Ariza [...] with frequency AUA symptom score is 15 avlgjfm-yp-qhdd is 4 Incomplete bladder emptying After urinating, [...] came back benign with (more content not included)...[facility]03-29-2024 Evaluation + Plan noteExtracted from: [...] PM Scheduled Provider:Margareth De La Cruz PA-C [facility] - Follow Up (FT) [facility]2024 NoteUT Cardiology - [facility] Subjective Trae Pineda is a 73 y.o. year old male patient being seen for 6 mo follow up CAD, hypertension, hyperlipidemia, and carotid artery stenosis. Had carotid US at [facility] a few weeks ago. 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 His physical activ (more content not included)...[facility]02-28-2024 [id number] [facility]02-28-2024 NoteDiagnosis: M54.16, lumbar radiculopathy Procedure: L5/S1 lumbar [...] the epidural space was confirmed using the rafv-ht-pzqenuqlts technique and 2 cc of air. Injection [...] procedure, and agrees to continue currently prescribed/recommended therapies.[facility] Comment on above:Result Comment: Electronically Signed By: John Cannon DO\.br\Date and Time Signed: 01/15/24 14:23 [id number] Evaluation + Plan note Extracted from: Title:L5/S1 [...] the epidural space was confirmed using the sjbv-re-urptgnpqds technique and 2 cc of air. Injection [...] PM Scheduled Provider:Margareth De La Cruz PA-C Location:.[facility] Appointment Type:Pain Management - Follow Up (FT) [facility]01-29-2024 Evaluation + Plan noteExtracted from: Title:Pain [...] will follow-up as above-mentioned LEONOR score: 48% [facility]01-02-2024 Evaluation note* Encounter Date Diagnosis Assessment Notes Treatment Notes Treatment Clinical Notes Nov, Pulmonary nodule (ICD-10 - R91.1) CT: RML 4mm nodule - 02/2022, CT: RML 7mm nodule - 02/2023 CT: stable - 08/2023Nov, Right carotid bruit (ICD-10 - R09.89) Carotid US: 50-69% stenosis - 2019, Carotid US: < 50% ICA w/ 75% right carotid bulb - 08/2021 [facility] Other 12-28-2023 Evaluation note* Encounter Date Diagnosis Assessment Notes Treatment Notes Treatment Clinical Notes Oct, 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 (ICD-10 - E11.3291) [facility] Other 12-26-2023 Evaluation note* Encounter Date Diagnosis [...] index [BMI] 32.0-32.9, adult (ICD-10 - Z68.32) [facility] Other 12-22-2023 Evaluation + Plan noteExtracted from: [...] AM Scheduled Provider:Margareth De La Cruz PA-C Location:FT.[facility] Appointment Type:Pain Management - Follow Up (FT) [facility]10-20-2023 Evaluation + Plan noteExtracted from: Title:Pain Managment [...] AM Scheduled Provider:Margareth De La Cruz PA-C Location:FT.[facility] Appointment Type:Pain Management - Follow Up (FT) [facility]10-18-2023 Evaluation note* Encounter Date Diagnosis Assessment Notes Treatment Notes Treatment Clinical Notes Aug, Pulmonary nodule (ICD-10 - R91.1) CT: RML 4mm nodule - 02/2022, CT: RML 7mm nodule - 02/2023 CT: stable - 08/2023 [facility] Other 10-04-2023 Evaluation note* Encounter Date Diagnosis Assessment Notes Treatment Notes Treatment Clinical Notes Aug, Pulmonary nodule (ICD-10 - R91.1) [facility] Other 08-15-2023 Evaluation + Plan noteExtracted from: Title:Pain Managment [...] clinic sooner if necessary. LEONOR score: 44% [facility]05-02-2023 Evaluation note* Encounter Date Diagnosis Assessment Notes Treatment Notes Treatment Clinical Notes March, COVID-19 (ICD-10 - U07.1) Instructed to use Robitussin or Mucinex for cough, saline or Flonase NS for congestion, Tylenol for pain and fever. March, Chronic bronchitis, mucopurulent (ICD-10 - J41.1) Mucinex DM as needed. Push fluids [facility] Other 04-20-2023 Evaluation note* Encounter Date Diagnosis Assessment Notes Treatment Notes Treatment Clinical Notes Feb, Pulmonary nodule (ICD-10 - R91.1) CT: RML 4mm nodule - 02/2022 CT: RML 7mm nodule - 02/2023 [facility] Other 04-11-2023 Evaluation note* Encounter Date Diagnosis Assessment Notes Treatment Notes Treatment Clinical Notes Feb, Pulmonary nodule (ICD-10 - R91.1) [facility] Other 02-24-2023 Evaluation + Plan noteExtracted from: [...] require a repeat injection. 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 (ICD-10 - Z79.4) [...] 02/2022 Serial LDCT for lung cancer detection [facility] Other Evaluation + Plan note No data available for this section [facility] Future Appointments Appointment Date:01/11/2023 01:45:00 PM Scheduled Provider:Margareth De La Cruz PA-C Location:FT.[facility] Appointment Type:Pain Management - Follow Up (FT) [facility] Future Appointments Appointment Date:09/06/2023 11:00:00 AM Scheduled Provider:Margareth De La Cruz PA-C Location:[facility] Appointment Type:Pain Management - Follow Up (FT) [facility] Future Appointments Appointment Date:11/09/2024 08:00:00 AM Scheduled Provider: Location:[facility] Appointment Type:Surgery FT Appointment Date:11/17/2024 10:45:00 AM Scheduled Provider:Margareth De La Cruz PA-C Location:.[facility] Appointment Type:Pain Management - Follow Up (FT) [facility] Evaluation noteNo InformationNofreeman [facility] Other History general Narrative - Reported* Type [...] gross Medical History 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, unspecified synchro assembler nicity Medical History Arteriosclerosis of abdominal [...] Triple bypass Hospitalization History see sx history [facility] Other [facility] general Narrative - Reported* Type Description Date [...] gross Medical History 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, unspecified synchro assembler nicity Medical History Arteriosclerosis of abdominal [...] Triple bypass Hospitalization History see sx history [facility] Other Hospital Discharge instructions No data available for this section [facility] No data available for this section [facility] Summary Purpose Family History No Family [...] and content) DATE CREATED AUTHOR 07/24/2022 [facility] DATE CREATED AUTHOR AUTHOR'S ORGANIZ ATION 03/11/2023 [facility] DATE CREATED AUTHOR AUTHOR'S ORGANIZ ATION 12/11/2024 [facility] DATE CREATED AUTHOR AUTHOR'S ORGANIZ ATION 12/19/2024 [facility] Patient Care team informatio n (unrecognized section and content) Personnel Name: CRISTOBAL KEARNS DO Address: Address: [address] [place] [address] Personnel Name: CRISTOBAL KEARNS DO Address: Address: [address] [facility] [place] [address]- Personnel Name: CRISTOBAL KEARNS DO Address: Address: [address] [facility] [place], [facility]- Personnel Name: CRISTOBAL KEARNS DO Address: Address: [address] [facility], [place], [facility]- Personnel Name: CRISTOBAL KEARNS DO Address: Address: [address] [facility], [place], [facility] Personnel Name: CRISTOBAL KEARNS DO Address: Address: [address] [facility], [facility] [place], [facility]- Personnel Name: CRISTOBAL KEARNS DO Address: Address: [address] [facility], [facility] [place], [facility] Personnel Name: CRISTOBAL KEARNS DO Address: Address: [address] [facility], [facility] [place], [facility]- Personnel Name: CRISTOBAL KEARNS DO Address: Address: [address] [facility], [facility] [place], [place] [address]- Personnel Name: CRISTOBAL KEARNS DO Address: Address: [address] [facility], [place], [facility]- Personnel Name: CRISTOBAL KEARNS DO Address: Address: [address] [facility], [facility] [place], [facility]- Personnel Name: CRISTOBAL KEARNS DO Address: Address: [address] [facility], [facility] [place], [facility]- Personnel Name: CRISTOBAL KEARNS DO Address: Address: [address] [facility], [place] [address]- Personnel Name: CRISTOBAL KEARNS DO Address: Address: [address] [facility], [place], [facility]- Personnel Name: CRISTOBAL KEARNS DO Address: Address: [address] [facility], [place] [address]- Personnel Name: CRISTOBAL KEARNS DO Address: Address: [address] [facility], [place] [address]- Personnel Name: CRISTOBAL KEARNS DO Address: Address: [address] [facility], [place], [facility]- Personnel Name: CRISTOBAL KEARNS DO Address: Address: [address] [facility], [facility] [place], [facility]- Personnel Name: CRISTOBAL KEARNS DO Address: Address: [address] [facility], [facility] [place], [place] [address]- REASON FOR VISIT (unrecogniz ed section and [...] BE BASED ON THE PRIMARY CLINICAL RECORDS. [employer] [facility]. provides no warranty or guarantee of the accuracy or completeness of information in this document.
[2024-12-28 16:02] LABS: Anion Gap 12.3; BUN Creatinine Ratio 20.5; Calcium 9.5 mg/dL (8.5-10.1); Carbon Dioxide 29.9 mmol/L (21.0-32.0); Chloride 105 mmol/L (98-107); Estimated GFR (African America 51 (>=60 mL/min/1.73m^2); Estimated GFR (Non-African Ame 42 (>=60 mL/min/1.73m^2); Glucose 131 mg/dL (74-106); Magnesium 2.4 mg/dL (1.8-2.4); Potassium 5.2 mmol/L (3.5-5.1); Sodium 142 mmol/L (136-145)
== END 2024-12-28 14:51 | disposition home or self-care (01) ==
LOC: LAB 14:50
PROVIDERS: PCP Internal Medicine; Visit Provider Internal Medicine Interventional Cardiology
DX: I47.29 Other ventricular tachycardia (principal)
CPT/HCPCS: 36415; 80048; 83735

== ENCOUNTER 2025-01-14 07:20 | Outpatient (OUT) | payer MEDICARE, SELFPAY ==
--- OUTSIDE RECORDS SUMMARY | 2025-01-14 07:25 | XMS_ITS | CCD ---
Author Organization [facility] Care Team Providers Care Agricultural Appraiser Name Role Phone LUPIS DENNIS Admitting Unavailable [...] Care Unavailable MISC, DR MOSLEY Consulting Unavailable SAVZMORENITA CHACKO Attending Unavailable SINDHWANI, DIONY Attending Unavailable ADINENRRIQUE Attending Unavailable SINDHWANI, DIONY Attending Unavailable SINDHWANI, DIONY Attending Unavailable SINDHWANI, DIONY Attending Unavailable SINDHWANI, DIONY Attending Unavailable MOUKARBEL, MOI Attending Unavailable MOUKARBEL, MOI Attending Unavailable MOUKARBEL, MOI Attending Unavailable John Cannon Attending Unavailable John Cannon Referring Unavailable John Cannon Admitting Unavailable John Cannon Attending Unavailable John Cannon Referring Unavailable John Cannon Admitting Unavailable John Cannon Attending Unavailable John Cannon Referring Unavailable De La Cruz, TRINY Margareth Admitting Unavailabl e De La Cruz, Margareth Attending Unavailable BALL, CRISTOBAL Referring Unavailable De La Cruz, TRINY Margareth Admitting Unavailabl e De La Cruz, Margareth Attending Unavailable BALL, CRISTOBAL Referring Unavailable De La Cruz, Margareth Admitting Unavailable BALL, CRISTOBAL Referring Unavailable De La Cruz, Margareth Attending Unavailable De La Cruz, Margareth Admitting Unavailable BALL, CRISTOBAL Referring Unavailable De La Cruz, Margareth Attending Unavailable John Cannon. Admitting Unavailable John Cannon Attending Unavailable BALL, CRISTOBAL Referring Unavailable De La Cruz, Margareth Attending Unavailable De La Cruz, Margareth Admitting Unavailable BALL, CRISTOBAL Referring Unavailable De La Cruz, Margareth Attending Unavailable De La Cruz, Margareth Admitting Unavailable BALL, CRISTOBAL Referring Unavailable De La Cruz, Margareth Attending Unavailable BALL, CRISTOBAL Referring Unavailable Allergies Allergy Classification Reported Allergen(s) Allergy Type Date of Onset Reaction(s) Facility (3 sources) black walnut pollen extract; Translations: [REILIWS-RAG-QXA REDUCTASE INHIBITORS] Drug Allergy 01-27-2013 [facility] Repository (20 sources) HMG-CoA reductase inhibitor; Translations: [statins] Drug allergy muscle ache [facility] (20 sources) hydrALAZINE; Translations: [hydralazine] Drug Allergy 07-25-2022 palpatations [facility] (5 sources) pregabalin; Translations: [pregabalin] Drug Allergy 12-28-2024 [place] Medications Current Medications Medication Drug Class(es) Dates [...] Alpha Lipoic Acid 600 mg oral capsule (20 sources) Start: 10-05-2021 take 1 capsule by [...] # 30 tab(s), Refills(s) 0, Pharmacy: [facility]/pharmacy #[id number], 183, cm, 02/14/24 13:46:00 EDT, Height/Length Dosing, 110.3, kg, 02/14/24 13:46:00 EDT, Weight Dosing Start Date: 02/14/24 Status: Ordered Calcium + D 315-200 MG-UNIT (15 sources) take 1 tablet by mouth twice daily Calcium + D 315-200 MG-UNIT 1 tablet Orally Twice a day Active calcium carbonate 1500 mg oral tablet (20 sources) Start: 05-18-2020 take 1 tablet by mouth once daily calcium (as carbonate) 600 mg oral tablet 600 mg = 1 tab(s), Oral, Daily, Refills(s) 0 Start Date: 05/18/20 Status: Ordered [facility] - (5 sources) [facility] - as directed Orally Active cyclobenzaprine hydrochloride 10 mg oral tablet (4 sources) Muscle Relaxant Start: 11-08-2022 take 1 tablet by mouth three times daily as needed for muscle spasms cyclobenzaprine 10 mg Tab 10 mg = 1 tab(s), Oral, TID, PRN for spasm, # 30 tab(s), Refills(s) 0, Pharmacy: [facility]/pharmacy #[id number], 182.9, cm, 11/08/22 15:17:00 EST, Height/Length Dosing, 113.4, kg, 12/29/21 13:07:00 EST, Weight Dosing Start Date: 11/08/22 Status: Ordered diclofenac sodium 10 mg/ml topical cream (4 sources) Nonsteroidal Anti-inflammatory Drug Start: 10-05-2021 diclofenac sodium 1% topical cream Refill(s) 0 Start Date: 10/05/21 Status: Ordered dutasteride 0.5 mg oral capsule (5 sources) 5-alpha Reductase Inhibitor Start: 10-13-2024 take [...] 05/18/20 Status: Ordered FreeStyle Singh 14 Day [place] - (15 sources) FreeStyle Singh 14 Day [place] - as directed Active FreeStyle Singh 14 [...] # 60 cap(s), Refills(s) 0, Pharmacy: [facility]/pharmacy #[id number], 183, cm, 02/14/24 13:46:00 EDT, Height/Length Dosing, 110.3, kg, 02/14/24 13:46:00 EDT, Weight Dosing Start Date: 02/14/24 Status: Ordered Start: 12-16-2023 take 1 capsule by [facility] once daily at bedtime gabapentin 300 mg Cap 300 mg = 1 cap(s), Oral, Once a day (at bedtime), # 30 cap(s), Refills(s) 1, Pharmacy: [facility]/pharmacy #[id number], 183, cm, 12/16/23 10:37:00 EST, Height/Length Dosing, 102.3, kg, 12/16/23 10:37:00 EST, Weight Dosing Start Date: 12/16/23 Status: Ordered Start: 11-08-2022 take 1 capsule by [facility] at bedtime gabapentin 100 mg Cap 100 mg = 1 cap(s), Oral, Bedtime, # 30 cap(s), Refills(s) 0, Pharmacy: [facility]/pharmacy #[id number], 182.9, cm, 11/08/22 15:17:00 EST, [...] DAILY Active loratadine 10 mg oral capsule (12 sources) Start: 08-03-2024 take 1 capsule by mouth once daily loratadine 10 mg oral capsule 10 mg = 1 cap(s), Oral, Daily, # 10 cap(s), Refills(s) 0 Start Date: 08/03/24 Status: Ordered take 1 tablet by aide th every twenty-four hours Loratadine 10 MG 1 tablet Orally Once a day Active 24 hr metoprolol succinate 25 mg extended release oral tablet (1 source) beta-Adrenergic Diana Start: 01-12-2025 metopr olol succinate 25 mg ER Tab 12.5 mg = 0.5 tab(s), Oral, Daily, Refills(s) 0 Start Date: 01/12/25 Status: Ordered [facility] [place] [place] Medication (10 sources) Start: 08-03-2024 Misc Medicatio n CBD 250 Topical Cream, as needed Start Date: 08/03/24 Status: Ordered Start: 08-03-2024 [facility] Gummies Start Date: 08/03/24 Status: Ordered pregabalin 25 mg oral capsule (5 sources) Start: 10-14-2024 take 1-2 capsules by mouth twice daily Lyrica 25 mg Cap See Instructions, 1-2 cap(s) Oral BID, # 120 cap(s), Refills(s) 0, Pharmacy: [facility]/pharmacy #[id number], 183, cm, 10/13/24 14:06:00 EST, Height/Length Dosing, 104.3, kg, 10/13/24 14:06:00 EST, Weight Dosing Start Date: 10/14/24 Status: Ordered Start: 08-10-2024 End: 10-09-2024 take 1-2 capsules by mouth twice daily Lyrica 25 mg Cap 1-2 cap(s), Oral, BID, X 30 day(s), # 120 tab(s), Refills(s) 1, Pharmacy: [facility]/pharmacy #[id number], 183, cm, 08/03/24 14:46:00 EDT, Height/Length Dosing, 104.5, kg, 08/03/24 14:46:00 EDT, Weight Dosing Start Date: 08/10/24 Stop Date: 10/09/24 Status: Ordered Start: 06-29-2024 take 1-2 capsules by mouth twice daily Lyrica 25 mg Cap 1-2 cap(s), Oral, BID, # 120 tab(s), Refills(s) 0, Pharmacy: [facility]/pharmacy #[id number], 183, cm, 05/18/24 13:21:00 EDT, Height/Length Dosing, 107, kg, 05/18/24 13:21:00 EDT, Weight Dosing Start Date: 06/29/24 Status: Ordered Start: 05-18-2024 take 1-2 capsules by mouth twice daily Lyrica 25 mg Cap 1-2 cap(s), Oral, BID, # 120 tab(s), Refills(s) 0, Pharmacy: [facility]/pharmacy #[id number], 183, cm, 05/18/24 13:21:00 EDT, Height/Length Dosing, 107, kg, 05/18/24 13:21:00 EDT, Weight Dosing Start Date: 05/18/24 Status: Ordered Start: 03-27-2024 take 1 capsule by [facility] twice daily pregabalin 25 mg Cap 25 mg = 1 cap(s), Oral, BID, # 60 cap(s), Refills(s) 0, Pharmacy: [facility]/pharmacy #[id number], 183, cm, 03/27/24 14:29:00 EDT, Height/Length Dosing, 107, kg, 03/27/24 14:29:00 EDT, Weight Dosing Start Date: 03/27/24 Status: Ordered PreserVision AREDS (20 sources) Start: 10-05-2021 take 1 capsule by mouth once daily PreserVision AREDS 1 cap(s), Oral, Daily, Refill(s) 0 Start Date: 10/05/21 Status: Ordered 12 hr ranolazine 500 mg extended release oral tablet (20 sources) Anti-anginal Start: 05-18-2020 take 500 mg by mouth twice daily Ranexa 500 mg, Oral, BID, Refills(s) 0 Start Date: 05/18/20 Status: Ordered tadalafil 5 mg oral tablet (19 sources) Phosphodiesterase 5 Inhibitor Start: 02-14-2024 take [...] day(s), # 20 tab(s), Refills(s) 0, Pharmacy: [facility]/pharmacy #[id number], 183, cm, 12/07/24 7:32:00 EST, Height/Length [...] palpitations; Translations: [Palpitations] Episodic Chronic kidney disease (20 sources) Chronic kidney disease 05-18-2020 Chronic Chronic kidney disease (2 sources) Chronic kidney disease; Translations: [Chronic kidney disease, stage 3b] Onset: 06-04-2023 Chronic obstructive pulmonary disease and bronchiectasis (18 sources) Mucopurulent chronic bronchitis; Translations: [Mucopurulent chronic bronchitis] Onset: 11-27-2022 Chronic Coronary atherosclerosis and other heart disease (20 sources) Angina pectoris; Translations: [History of myocardial infarction] Onset: 11-27-2022 05-18-2020 Chronic Deficiency and other anemia (20 sources) Anemia 05-18-2020 Episodic Diabetes mellitus with [...] incontinence; Translations: [Urge incontinence] Onset: 05-14-2024 Chronic Heart valve disorders (20 sources) Irregular heart beat 05-18-2020 Episodic Hyperplasia [...] and stenosis of bilateral carotid arteries] Onset: 08-31-2024 Chronic Osteoarthritis (19 sources) Osteoarthritis of knee; Translations: [Unilateral primary osteoarthritis, right knee] Onset: 11-18-2022 Chronic Other aftercare (15 sources) Long-term current use of insulin; Translations: [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] Episodic Other and [...] Onset: 08-14-2022 Chronic Other nervous system disorders (20 sources) Carpal tunnel syndrome 05-18-2020 Chronic Other [...] [Atherosclerosis of aorta] Chronic Residual codes; unclassified (20 sources) Sleep apnea 05-18-2020 Chronic Residual codes; unclassified (13 sources) Obstructive sleep apnea syndrome; Translations: [Obstructive sleep apnea (adult) (pediatric)] Chronic Residual codes; unclassified (3 sources) Obstructive sleep apnea (adult) (pediatric); Translations: [Obstructive sleep apnea] Chronic Residual codes; unclassified (20 sources) H/O cardiac surgery 05-18-2020 Episodic Respiratory failure; insufficiency; arrest (adult) (20 sources) 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 airway pressure ventilation 05-18-2020 Chronic Rheumatoid arthritis and related disease (20 sources) Rheumatoid arthritis 05-18-2020 Chronic Spondylosis; intervertebral [...] [CONTACT W/AND (SUSP) EXPOS COVID-19] Onset: 07-02-2022 Unclassified (1 source) Other ventricular tachycardia; Translations: [Other ventricular tachycardia] Onset: 12-28-2024 Past or Other Problems Problem Classification Problem Date Documented Da te Episodic/Chronic Abdominal pain (2 sources) Pelvic and perineal pain; Translations: [Pelvic and perineal pain] Onset: 08-14-2022 Episodic Coronary atherosclerosis and other heart disease (2 sources) Presence of aortocoronary bypass graft; Translations: [Presence of aortocoronary bypass graft] Onset: 08-31-2024 Episodic Genitourinary symptoms and ill-defined conditions (20 sources) Giuseppe hematuria; Translations: [Gross hematuria] Onset: 09-03-2023 Episodic Other aftercare (2 sources) group home (current) use of insulin; Translations: [SNF CURRENT USE OF INSULIN] Onset: 11-27-2022 Episodic Other aftercare (1 source) Other halfway (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 therapy; Translations: [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] Onset: 11-27-2022 Episodic Other aftercare (1 source) keno terminal operator (current) use of aspirin; Translations: [SNF CURRENT USE OF ASPIRIN] Onset: 11-27-2022 Episodic [...] Translations: [LOW BACK PAIN, UNSPECIFIED] Onset: 11-23-2022 Unclassified (1 source) Other ventricular tachycardia; Translations: [Other ventricular tachycardia] Onset: 12-28-2024 Urinary tract infections (2 sources) Other cystitis without hematuria; Translations: [Other cystitis without hematuria] Onset: 03-17-2024 Episodic Viral infection (1 source) COVID-19 Results Test Name Value Interpretation Reference Range Facility 36on 12-31-2024 36 Regarding lab results from 12/28/2024: MD Tatiana Estrella MA Blood test is ok except for mildly elevated potassium. I want him to get another BMP in 2 weeks. Spoke with patient and he will have repeat BMP in 2 weeks. He verbalized understanding. Normal [facility] Office Visiton 12-28-2024 Follow-up visit [id number] Trae Pineda 1950 M Date Provider Department Center 12/28/2024 Risa-MOI CAMPBELL [facility] Family History Problem Relation Age of Onset Prostate cancer Father Family Status - Relation Status Age at Father Level of Service:00311 [place] OFFICE/OUTPATIENT ESTABLISHED MOD MDM 30 MIN Normal [facility] Main OR Intraoperative Recor don 12-07-2024 Main OR Intraoperative Record Main OR Intraoperative Record IntraOp Document Type FTPM Summary Primary Physician: John Cannon DO Finalized Date/Time: 12/07/24 08:53:30 Pt. Name: TRAE PINEDA D.O.B./Sex: 1950 Male Med Rec #: [id number] Physician: John Cannon DO Financial #: [id number] Pt. Type: P Room/Bed: / Admit/Disch: 12/07/24 06:59:32 - Institution: Case Times FTPM Entry 1 Patient Times In Room 12/07/24 08:17:00 Out Room 12/07/24 08:52:00 Procedure Times Start 12/07/24 08:20:00 Stop 12/07/24 08:45:00 Anesthesia Times Start 12/07/24 08:17:00 Stop 12/07/24 08:52:00 Last Modified By: Matthew PEREZ, Deysi Smith 12/07/24 08:52:16 Case Attendance FTPM Entry 1 Entry 2 Entry 3 Case Attendee Foreign MASON, Franko Cannon DO, John Castro RN, Deysi Smith Role Performed Anesthesiologist Surgeon - Primary Reverse Unit Operator - Primary Quill Layer Time In 12/07/24 08:17:00 12/07/24 08:17:00 12/07/24 08:17:00 Time Out 12/07/24 08:52:00 12/07/24 08:52:00 12/07/24 08:52:00 Procedure MINIMALLY INVASIVE MINIMALLY INVASIVE MINIMALLY INVASIVE LUMBAR DECOMPRESSION(.) LUMBAR DECOMPRESSION(.) LUMBAR DECOMPRESSION(.) Comments Last Modified By: Matthew RN, Deysi Castro RN, Deysi Castro RN, Deysi Smith 12/07/24 08:52:16 12/07/24 08:52:16 12/07/24 08:52:16 Entry 4 Entry 5 Entry 6 Case Attendee Leanne Fitzgerald RN, Toni Casper RN, Julia Mathews Role Performed Gold Blower Scrub - Relief Scrub - Primary Time In 12/07/24 08:17:00 12/07/24 08:17:00 12/07/24 08:17:00 Time Out 12/07/24 08:52:00 12/07/24 08:52:00 12/07/24 08:52:00 Procedure MINIMALLY INVASIVE MINIMALLY INVASIVE MINIMALLY INVASIVE LUMBAR DECOMPRESSION(.) LUMBAR DECOMPRESSION(.) LUMBAR DECOMPRESSION(.) Comments Last Modified By: Matthew RN, Deysi Castro RN, Deysi Castro RN, Deysi Smith 12/07/24 08:52:16 12/07/24 08:52:16 12/07/24 08:52:16 Entry [...] and tissue Entry 1 Skin Integrity Intact, [place], Warm, & Skin Abnormality No Dry Outcomes Met? Yes Last Modified By: Ricky (more content not included)... Normal [facility] Main OR Preoperative Recordo n 12-07-2024 Main OR Preoperative Record Main OR Preoperative Record Holding Area Document Type FTPM Summary Primary Physician: John Cannon DO Finalized Date/Time: 12/07/24 08:04:53 Pt. Name: TRAE PINEDA/Sex: 1950 Male Med Rec #: [id number] Physician: John Cannon DO Financial #: [id number] Pt. Type: P Room/Bed: / Admit/Disch: 12/07/24 [...] Pain: Yes Comment: upper/lower partial. Pain Comment: 7/10 lower back pain Operative Site Yes Marking: [...] 07:27 Barb Schmidt RN 12/07/24 08:04 Normal [facility] Operative Reporton 5 Operative Report Operative Report Diagnosis: m48.062 lumbar [...] then advanced into the appropriate space using [id number] and confirmed by fluoroscopy and contrast spread. [...] call with any questions or issues periprocedurally. [facility] Comment on above: Result Comment: Elec tronically Signed By: John Cannon DO.br\Date and Time Signed: 12/07/24 08:54 EST Documentationon 12-02-2024 Documentation [id number] Trae Pineda 1950 [facility] Department [place] 12/02/2024 MORENITA BANKS None Family History Problem Relation Age of Onset Prostate cancer Father Family Status - Relation Status Age at Father Normal [facility] Follow-Upon 11-03-2024 Follow-Up [id number] Trae Pineda 1950 [facility] 11/03/[address] [place], [place] [address] Family History Problem Relation Age of Onset Prostate cancer Father Family Status - Relation Status Age at Father Level of Service:63380 [place] OFFICE/OUTPATIENT ESTABLISHED MOD MDM 30 MIN Reason for Visit and Comments: Benign Prostatic Hypertrophy [200303241] Hypogonadism [185] - Follow-up TRUS and labs Normal [facility] Orders Onlyon 11-02-2024 Orders Only [id number] Trae Pineda 1950 [facility] 11/02/2024 [facility] Family History Problem Relation Age of Onset Prostate cancer Father Family Status - Relation Status Age at Father Normal [facility] Orders Onlyon 10-27-2024 Orders Only [id number] Trae Pineda 1950 [facility] Department [place] 10/27/2024 435-DIONY ARIZA [facility] Second Fl Family History Problem Relation Age of Onset Prostate cancer Father Family Status - Relation Status Age at Father Normal [facility] Main OR Preoperative Recordo n 09-08-2024 Main OR Preoperative Record Main OR Preoperative Record Holding Area Document Type FTPM Summary Primary Physician: John Cannon DO Finalized Date/Time: 09/08/24 10:57:05 Pt. Name: TRAE PINEDA Lorenzo Anderson/Sex: 1950 Male Med Rec #: [id number] Physician: John Cannon DO Financial #: [id number] Pt. Type: P Room/Bed: / Admit/Disch: 09/08/24 10:39:37 - Institution: Case Times Holding FTPM Pre-Care Text: Verifies consent for planned procedure, identifies individual values and wishes concerning care, includes family members in perioperative teaching Secures patient's records' belongings, and valuables, maintains patient's dignity and privacy, and maintains patient confidentiality Entry 1 In Holding 09/08/24 10:54:00 Outcomes Met? Yes Last Modified By: Barb Schmidt RN 09/08/24 10:54:38 Post-Care Text: The patient participates [...] Barb Schmidt RN Document Signatures Signed By: Brayan PEREZ, Barb Toledo 09/08/24 10:57 Normal [facility] Office Visiton 08-31-2024 Follow-up visit [id number] Igor Pinedary E 1950 Date Provider Department Center 08/31/2024 Risa-MOI CAMPBELL [facility] Family History Problem Relation Age of Onset Prostate cancer Father Family Status - Relation Status Age at Father Level of Service:59475 [place] OFFICE/OUTPATIENT ESTABLISHED MOD MDM 30 MIN [facility] Orders Onlyon 08-13-2024 Orders Only [id number] Igor Pinedary E 1950 M Date Provider Department [place] 08/13/2024 Carri-KRISTEL [facility] Problem Relation Age of Onset Prostate cancer Father Family Status - Relation Status Age at Father Normal [facility] Procedure Visiton 08-13-2024 Procedure Visit [id number] EdwinTrae E 1950 Date Provider Department [place] 08/13/2024 Colton-DIONY ARIZA [facility] Family History Problem Relation Age of Onset Prostate cancer Father Family Status - Relation Status Age at Father Level of Service:45723 [place] OFFICE/OUTPT VISIT,PROCEDURE ONLY (25) Reason for Visit and Comments: Follow-up [380754] - Trus Normal [facility] Orders Onlyon 07-29-2024 Orders Only [id number] Igor Pinedary E 1950 M Date Provider Department [place] 07/29/2024 RACHNA [facility]ON [facility] No family history on file Normal [facility] Office Visiton 07-27-2024 Follow-up visit [id number] Igor Pinedary E 1950 M Date Provider Department Center 07/27/2024 [id number]-LWFSOPENRRIQUE OAKLEY CARD [facility] No family history on file Level of Service:66616 [place] OFFICE/OUTPATIENT ESTABLISHED MOD MDM 30 MIN Reason for Visit and Comments: Hyperlipidemia [182] Hypertension [506801] - Pt is here for low blood pressure. Normal [facility] Follow-Upon 05-19-2024 Follow-Up [id number] EdwinTrae lima 1950 M Date Provider Department Center 05/19/2024 435-DIONY ARIZA [facility] Second Fl No family history on file Level of Service:45347 [place] OFFICE/OUTPATIENT ESTABLISHED MOD MDM 30 MIN [facility] Refillon 05-14-2024 Refill [id number] Trae Pineda 1950 M Date Provider Department Center 05/14/2024 Danni-MARCIAL SANTOS [facility] Second Fl No family history on file Reason for Visit and Comments: Med Refill [[id number]] [facility] Procedure Visiton 05-11-2024 Procedure Visit [id number] Trae Pineda 1950 M Date Provider Department Center 05/11/2024 435-DIONY ARIZA [facility] No family history on file Level of Service:17684 [place] OFFICE/OUTPT VISIT,PROCEDURE ONLY (26) Reason for Visit and Comments: Follow-up [455667] - Uds documentation [facility] Procedure Visit [id number] Trae Pineda 1950 M Date Provider Department Center 05/11/2024 [id number] LARSEN [facility] No family history on file Level of Service:25392 [place] OFFICE/OUTPATIENT ESTABLISHED LOW MDM 20 MIN Reason for Visit and Comments: Follow-up [608228] - uds [facility] Consent for Treatmenton 03-18 Consent for Treatment [id number] #1.00TIFF [facility] Consultation Noteon 03-27-20 Consultation Note [...] # 30 tab(s), Refills(s) 0, Pharmacy: [facility]/pharmacy #[id number], 183, cm, 02/14/24 13:46:00 EDT, Height/Length Dosing, 110.3, kg, 02/14/24 13:46:00 EDT, Weight Dosing gabapentin 300 mg Cap: 300 mg = 1 cap(s), Oral, Once a day (at bedtime), # 30 cap(s), Refills(s) 1, Pharmacy: [facility]/pharmacy #[id number], 183, cm, 12/16/23 10:37:00 EST, Height/Length Dosing, 102.3, kg, 12/16/23 10:37:00 EST, Weight Dosing pregabalin 25 mg Cap: 25 mg = 1 cap(s), Oral, BID, # 60 cap(s), Refills(s) 0, Pharmacy: [facility]/pharmacy #[id number], 183, cm, 03/27/24 14:29:00 EDT, Height/Length [...] History of heart attack / SNOMED CT 8167795989 / Confirmed Acute angina / SNOMED CT 266273461 / Confirmed Irregular heart beat / SNOMED CT 592124449 / Confirmed HTN (hypertension) / SNOMED CT 7615117084 / Confirmed High cholesterol / SNOMED CT 90219859 / Confirmed H/O heart bypass surgery / SNOMED CT 915333192 / Confirmed Apnea, sleep / SNOMED CT 181264034 / Confirmed CPAP (continuous positive airway pressure) dependence / SNOMED CT 1244192335 / Confirmed Enlarged prostate / SNOMED CT 873260147 / Confirmed Chronic kidney disease (CKD) / SNOMED CT 0688401932 / Confirmed Diabetes / SNOMED CT 660080424 / Confirmed Carpal tunnel syndrome / SNOMED CT 00482125 / Confirmed Anemia / SNOMED CT 354441172 / Confirmed Arthritis, rheumatoid / SNOMED CT 657042984 / Confirmed Obesity / ICD-9-CM 278.00 / Possible Obesity / SNOMED CT [id number] / Possible Objective Vital Signs 03/27/2024 14:19 [...] right straight leg raise Integumentary: Warm, Dry, [place]. Neurologic: Alert, Oriented. Psychiatric: Cooperative, Appropriate mood [...] did not (more content not included)... Normal [facility] Comment on above: Result Comment: Elec tronically Signed By: Jono AGOSTO, Margareth\.br\Date and Time Signed: 03/27/24 14:47 EDT Office/Clinic Note-Physician on 03-27-2024 Office/Clinic Note-Physician [id number] 1#1.00TIFF [facility] Outside Records Officeon Outside Records Office [id number] 8#1.00TIFF [facility] Patient Correspondenceon Patient Correspondence [id number] 2#1.00TIFF [facility] Patient History Officeon Patient History Office [id number] 9#1.00TIFF [facility] Follow-Upon 03-17-2024 Follow-Up [id number] Trae Pineda 1950 M Date Provider Department Center 03/17/2024 Colton-DIONY ARIZA [facility] Second Fl No family history on file Level of Service:58502 [place] OFFICE/OUTPATIENT ESTABLISHED MOD MDM 30 MIN Reason for Visit and Comments: Benign Prostatic Hypertrophy [068587050] Hypogonadism [185] - 3 mo follow-up with labs Normal [facility] Orders Onlyon 03-12-2024 Orders Only [id number] Trae Pineda 1950 M Date Provider Department Center 03/12/2024 Cotlon-DIONY ARIZA [facility] Second Fl No family history on file Normal [facility] Consent for Treatmenton 01-17 Consent for Treatment [id number] 5#1.00TIFF Normal [facility] Consultation Noteon 02-14-20 Consultation Note Patient: TRAE [...] BID, # 60 cap(s), Refills(s) 0, [id number], 183, cm, 02/14/24 13:46:00 EDT, Height/Length Dosing, 110.3, kg, 02/14/24 13:46:00 EDT, Weight Dosing gabapentin 300 mg Cap: 300 mg = 1 cap(s), Oral, Once a day (at bedtime), # 30 cap(s), Refills(s) 1, [id number] 183, cm, 12/16/23 10:37:00 EST, [...] History of heart attack / SNOMED CT 3090995123 / Confirmed Acute angina / SNOMED CT 509744538 / Confirmed Irregular heart beat / SNOMED CT 504092940 / Confirmed HTN (hypertension) / SNOMED CT 7901372989 / Confirmed High cholesterol / SNOMED CT 64593165 / Confirmed H/O heart bypass surgery / SNOMED CT 401823928 / Confirmed Apnea, sleep / SNOMED CT 598561336 / Confirmed CPAP (continuous positive airway pressure) dependence / SNOMED CT 4633832885 / Confirmed Enlarged prostate / SNOMED CT 516010749 / Confirmed Chronic kidney disease (CKD) / SNOMED CT 4417325334 / Confirmed Diabetes / SNOMED CT 646270511 / Confirmed Carpal tunnel syndrome / SNOMED CT 34216525 / Confirmed Anemia / SNOMED CT 601693393 / Confirmed Arthritis, rheumatoid / SNOMED CT 585922937 / Confirmed Obesity / ICD-9-CM 278.00 / Possible Obesity / SNOMED CT [id number] / Possible Objective Vital Signs 02/14/2024 13:32 [...] pain with facet loading Integumentary: Warm, Dry, [place]. Neurologic: Alert, Oriented. Psychiatric: Cooperative, Appropriate mood [...] relief he (more content not included)... Normal [facility] Comment on above: Result Comment: Elec tronically Signed By: Jono AGOSTO, Margareth\.br\Date and Time Signed: 02/14/24 14:08 EDT Office/Clinic Note-Physician on 02-14-2024 Office/Clinic Note-Physician [id number] 3#1.00TIFF Normal [facility] Patient Correspondenceon Patient Correspondence [id number] 4#1.00TIFF Normal [facility] Patient Correspondence [id number] 4#1.00TIFF Normal [facility] Patient History Officeon Patient History Office [id number] 3#1.00TIFF [facility] Refillon 01-26-2024 Refill [id number] Trae Pineda 1950 M Date Provider Department Center 01/26/2024 Danni-MARCIAL SANTOS [facility] Second Fl No family history on file Reason for Visit and Comments: Med Refill [359678] [facility] Office Visiton 01-20-2024 Follow-up visit [id number] Trae Pineda 1950 M Date Provider Department Center 01/20/2024 Risa-MOI CAMPBELL [facility] No family history on file Level of Service:[address]21 [place] OFFICE/OUTPATIENT ESTABLISHED MOD MDM 30 MIN [facility] Consent for Procedure/Surger yon 01-15-2024 Consent for Procedure/Surgery [id number] 45#1.00TIFF [facility] Consent for Treatmenton 12-20 Consent for Treatment [id number] #1.00TIFF [facility] Discharge Instructionson Discharge Instructions [id number] 08#1.00TIFF [facility] IntraOperative Documentson 0 01-15-2024 IntraOperative Documents [id number] 74#1.00TIFF Normal [facility] Main OR Intraoperative Recor don 01-15-2024 Main OR Intraoperative Record IntraOp Document Type FTPM Summary Primary Physician: John Cannon DO Finalized Date/Time: 01/15/24 14:25:24 Pt. Name: TRAE PINEDA /Sex: 1950 Male Med Rec #: [id number] Physician: John Cannon DO Financial #: [id number] Pt. Type: P Room/Bed: / Admit/Disch: 01/15/24 [...] Lula Schuler Role Performed Surgeon - Primary Reverse Unit Operator - Primary Scrub - Primary Time In 01/15/24 14:15:00 01/15/24 14:15:00 01/15/24 14:15:00 Time Out 01/15/24 14:24:00 01/15/24 14:24:00 01/15/24 14:24:00 Procedure LUMBAR EPIDURAL STEROID LUMBAR EPIDURAL STEROID LUMBAR EPIDURAL STEROID INJECTION(.) INJECTION(.) INJECTION(.) Comments Last Modified By: Matthew PEREZ, Deysi Castro RN, Deysi Clemente RN 01/15/24 14:23:16 01/15/24 14:23:16 01/15/24 14:23:16 Entry 4 Case Attendee Leanne Fitzgerald Role Performed Gold Blower Time In 01/15/24 14:15:00 Time Out 01/15/24 [...] and tissue Entry 1 Skin Integrity Intact, [place], Warm, and Skin Abnormality No Dry Outcomes [...] Last Modif (more content not included)... Normal [facility] Main OR Preoperative Recordo n 01-15-2024 Main OR Preoperative Record Holding Area Document Type FTPM Summary Primary Physician: John Cannon DO Finalized Date/Time: 01/15/24 13:38:25 Pt. Name: TRAE PINEDA Lorenzo Anderson/Sex: 1950 Male Med Rec #: [id number] Physician: John Cannon DO Financial #: [id number] Pt. Type: P Room/Bed: / Admit/Disch: 01/15/24 [...] By: Barb Schmidt RN 01/15/24 13:38 Normal [facility] CT CHEST WO CONon 03-07-2023 CT CHEST WO CON EXAMINATION: CT CHEST [...] SLOAN SOSA Date: 2023-03-07 10:24 Normal [facility] TESTOSTERONE, FREE,DIRECT, T OTALon 01-24-2023 Free Testosterone(Direct) 10.1 pg/mL Normal 6.6-18.1 [facility] Comment on above: Result Comment: Perf ormed at: BN Performed By: #### L JENNYFER #### [facility] [address] [place] [address] Dr. Zan Escalante Testosterone [Mass/Vol] 622 ng/dL Normal 264-916 [facility] Comment on above: Result Comment: Adul t male reference interval is based on a population of healthy nonobese males (BMI <30) between 19 and 39 years old. Nate et.al. JCEM 2017,102;1557-8580. PMID: [id number]. Performed at: CB Performed By: #### L JENNYFER #### [facility] [address] [place] [address] Dr. Zan Escalante ESTRADIOLon 01-19-2023 Estradiol 21.4 pg/mL Normal 7.6-42.6 [facility] Comment on above: Result Comment: Anastacio chong ECLIA methodology Performed By: #### L JENNYFER #### [facility] [address] [place] [address] Dr. Zan Escalante FSHon 01-19-2023 FSH 0.3 mIU/mL Critically low 1.5-12.4 [facility] Comment on above: Performed By: #### L BCFS #### [facility] [address] [place] [address] Dr. Zan Escalante LUTEINIZING HORMONE (LH)on 0 01-19-2023 LH <0.3 Critically low 1.7-8.6 [facility] Comment on above: Performed By: #### L JENNYFER #### [facility] [address] [place] [address] Dr. Zan Escalante PROLACTINon 01-19-2023 Prolactin 6.5 ng/mL Normal 4.0-15.2 [facility] Comment on above: Performed By: #### L ANTHONY #### [facility] [address] [place] [address] Dr. Zan Escalante SEX HORMONE-BINDING GLOBULIN on 01-19-2023 Sex Horm Binding Glob, Serum 28.3 nmol/L Normal 19.3-76.4 [facility] Comment on above: Performed By: #### S EXHBG #### [facility] [address] [place] [address] Dr. Zan Escalante CHEMISTRYOrdered By: Lab ROP User on 12-12-2022 Glucose [Mass/Vol] 157 mg/dL High 55 - 99 mg/dL FTM C POC Subsection POC Device SN [id number] Invalid Interpretation Code [facility] POC Subsection POC User ID [id number] Invalid Interpretation Code [facility] POC Subsection POC Username THOMAS FARR Invalid Interpretation Code [facility] POC Subsection TESTOSTERONE, FREE,DIRECT, T OTALon 09-01-2022 Free Testosterone(Direct) 4.2 pg/mL Critically low 6.6-18.1 [facility] Comment on above: Result Comment: Perf ormed at: BN Performed By: #### T ESTFRD #### [facility] [address] [place] [address] Dr. Zan Escalante Testosterone [Mass/Vol] 171 ng/dL Critically low 264-916 [facility] Comment on above: Result Comment: Adul t male reference interval is based on a population of healthy nonobese males (BMI <30) between 19 and 39 years old. Nate et.al. JCEM 2017,102;4537-7365. PMID: [id number]. Performed at: CB Performed By: #### T ESTFRD #### [facility] [address] [place] [address] Dr. Zan Escalante ESTRADIOLon 08-30-2022 Estradiol 28.9 pg/mL Normal 7.6-42.6 [facility] Comment on above: Result Comment: Anastacio chong ECLIA methodology Performed By: #### L ANTHONY #### [facility] [address] [place] [address] Dr. Zan Escalante FSHon 08-30-2022 FSH 3.0 mIU/mL Normal 1.5-12.4 [facility] Comment on above: Performed By: #### L BCFSH #### [facility] [address] [address] [address] Zan Escalante LUTEINIZING HORMONE (LH)on 1 LH 5.7 mIU/mL Normal 1.7-8.6 [facility] Comment on above: Performed By: #### L BCLH #### [facility] [address] [address] [address] Zan Escalante PROLACTINon 08-30-2022 Prolactin 8.6 ng/mL Normal 4.0-15.2 [facility] Comment on above: Performed By: #### L BCLH #### [facility] [address] [place] [address] Dr. Zan Escalante SEX HORMONE-BINDING GLOBULIN on 08-30-2022 Sex Horm Binding Glob, Serum 22.7 nmol/L Normal 19.3-76.4 [facility] Comment on above: Performed By: #### S EXHBG #### [facility] [address] [address] [address] Zan Escaalnte ECHOCARDIO M/2D COMPLETEon 0 07-31-2022 ECHOCARDIO M/2D COMPLETE Patient: TRAE PINEDA Exam Date: 07/31/2022 : 1950 Gender:M Ordering : DR MOI CAMPBELL M.D. Admission #: [id number] Family : Order #: [id number] CLICK HERE TO VIEW EXAM ECHOCARDIOGRAM REPORT [...] Campbell M.D. on 07/31/2022 at 18:09 Normal [facility] *URINE CATH CULTUREon 2021 *URINE [...] Susceptible VANCOMYCIN (VA) 1 Susceptible Normal [facility] Comment on above: Order Comment: 1. Ur ine Performed By: #### 3 0478 #### [facility] [address] Operative Reporton 2 Operative Report MR#: [id number] S [facility] Pt. Name: Trae Pineda Room #: 0C Discharge Date: Birthdate: 1950 OPERATIVE REPORT DATE OF SURGERY: 07/02/2022 SURGEON: Diony Ariza MD PULMONARY PHYSICIAN: Kolby ARMANDO PGY3 PREOPERATIVE DIAGNOSIS: Benign prostatic [...] the room agreed. A well lubricated rigid 22-Comoran cystoscopic sheath with a 30-degree lens was [...] bleeding due to scope trauma so 18 bulgarian leggett was inserted. Urine was with significant [...] Jarrett MD Date Trans: 07/02/2022 03:30 P/ [id number]:[id number] cc: Cristobal Michel D.O. [address] [place] [address] A [facility] [address] Normal [facility] POC GLUCOSE LABon 07-02-2022 Glucose [Mass/Vol] 130 mg/dL High 70-100 [facility] Comment on above: Performed By: #### 8 5499 #### [facility] [address] [place] [address], [facility] MICROALBUMIN URINEon 022 Albumin, Urine 42.2 ug/mL Normal Not Estab. [facility] Comment on above: Performed By: #### L [facility] #### [facility] [address] [address] [address] Zan Escalante CBC AUTO DIFFon 06-29-2022 BASO # 0.1 103/ul Normal 0.0-0.1 [facility] Comment on above: Performed By: #### C BC #### [facility] [address] [address] [address] Zan Escalante Basophils/100 WBC (Bld) 1.1 % Normal 0.2-2.0 [facility] Comment on above: Performed By: #### C BC #### [facility] [address] [address] [address] Zan Escalante EO # 0.6 103/ul Normal 0.0-0.7 [facility] Comment on above: Performed By: #### C BC #### [facility] [address] [place] [address] Dr. Zan Escalante Eosinophils/100 WBC (Bld) 7.0 % Normal 0.9-7.0 [facility] Comment on above: Performed By: #### C BC #### [facility] [address] [place] [address] Dr. Zan Escalante Erythrocyte distribution width (RBC) [Ratio] 13.8 % Normal 11.0-15.0 [facility] Comment on above: Performed By: #### C BC #### [facility] [address] [place] [address] Dr. Zan Escalante Hematocrit (Bld) [Volume fraction] 40.9 % Critically low 42.0-54.0 [facility] Comment on above: Performed By: #### C BC #### [facility] [address] [place] [address] Dr. Zan Escalante Hemoglobin (Bld) [Mass/Vol] 13.1 g/dL Critically low 14.0-18.0 [facility] Comment on above: Performed By: #### C BC #### [facility] [address] [place] [address] Dr. Zan Escalante IG # 0.04 10e3/ul Critically high 0.00-0.03 [facility] Comment on above: Performed By: #### C BC #### [facility] [address] [place] [address] Dr. Zan Escalante IG % 0.5 % Normal 0.0-0.5 [facility] Comment on above: Performed By: #### C BC #### [facility] [address] [place] [address] Dr. Zan Escalante LYMPH # 3.0 103/ul Normal 1.2-3.8 [facility] Comment on above: Performed By: #### C BC #### [facility] [address] [place] [address] Dr. Zan Escalante Lymphocytes/100 WBC (Bld) 33.4 % Normal 20.5-60.0 [facility] Comment on above: Performed By: #### C BC #### [facility] [address] [place] [address] Dr. Zan Escalante MANUAL DIFF REQ NO Normal [facility] Comment on above: Performed By: #### C BC #### [facility] [address] [place] [address] Dr. Zan Escalante MCH (RBC) [Entitic mass] 29.6 pg Normal 25.9-34.0 [facility] Comment on above: Performed By: #### C BC #### [facility] [address] [place] [address] Dr. Zan Escalante MCHC (RBC) [Mass/Vol] 32.0 g/dL Normal 29.9-35.2 [facility] Comment on above: Performed By: #### C BC #### [facility] [address] [place] [address] Dr. Zan Escalante MCV (RBC) [Entitic vol] 92.3 fL Normal 80.0-94.0 [facility] Comment on above: Performed By: #### C BC #### [facility] [address] [place] [address] Dr. Zan Escalante MONO # 0.8 103/ul Normal 0.3-0.8 [facility] Comment on above: Performed By: #### C BC #### [facility] [address] [place] [address] Dr. Zan Escalante Monocytes/100 WBC (Bld) 9.4 % Normal 1.7-12.0 [facility] Comment on above: Performed By: #### C BC #### [facility] [address] [place] [address] Dr. Zan Escalante NEUT # 4.3 103/ul Normal 1.4-6.5 [facility] Comment on above: Performed By: #### C BC #### [facility] [address] [place] [address] Dr. Zan Escalante Neutrophils/100 WBC (Bld) 48.6 % Normal 43.0-75.0 [facility] Comment on above: Performed By: #### C BC #### [facility] [address] [place] [address] Dr. Zan Escalante Platelet mean volume (Bld) [Entitic vol] 11.2 fL Normal 9.5-13.5 [facility] Comment on above: Performed By: #### C BC #### [facility] [address] [place] [address] Dr. Zan Escalante PLT 185 103/ul Normal 150-450 [facility] Comment on above: Performed By: #### C BC #### [facility] [address] [place] [address] Dr. Zan Escalante RBC 4.43 106/ul Critically low 4.70-6.10 [facility] Comment on above: Performed By: #### C BC #### [facility] [address] [place] [address] Dr. Zan Escalante WBC 8.9 103/ul Normal 4.0-11.0 [facility] Comment on above: Performed By: #### C BC #### [facility] [address] [place] [address] Dr. Zan Escalante Covid-19 PCR ([facility])on 06-18 SARS-CoV-2 (COVID-19) RNA KRISTEL+probe Ql (Unsp spec) Not detected Normal NOT DETECTED [facility] Comment on above: Result Comment: This test is not yet approved or cleared by the [place] FDA. When there are no FDA-approved or cleared tests available, and other criteria are met, FDA can make tests available under an emergency access mechanism called an Emergency Use Authorization (EUA). The EUA for this test is supported by the Broadcast Transmitter Operator of Health and Human Service's (HHS's) declaration [...] consistent with SARS-CoV-2. Performed By: #### L [facility] #### [facility] [address] [place] [address] Dr. Zan Escalante GLYCOHEMOGLOBIN A1Con 2021 ADA RECOMMENDATION SEE BELOW Normal [facility] Comment on above: Result Comment: ADA RECOMMENDED LIMIT 4.0 - 6.0 ADA THERAPEUTIC TARGET < 7.0 ACTION SUGGESTED > 7.0 Performed By: #### A 1C #### [facility] [address] [place] [address] Dr. Zan Escalante Glucose [Mass/Vol] 143 mg/dL Normal [facility] Comment on above: Performed By: #### A 1C #### [facility] [address] [place] [address] Dr. Zan Escalante HbA1c (Bld) [Mass fraction] 6.6 % Critically high 4.5-6.2 [facility] Comment on above: Performed By: #### A 1C #### [facility] [address] [place] [address] Dr. Zan Escalante LIPID PROFILEon 06-29-2022 CHOL-HDL RATIO NORM SEE BELOW Normal [facility] Comment on above: Result Comment: 3.3 - 4.4 LOW RISK 4.4 - 7.1 AVERAGE RISK 7.1 - 11.0 MODERATE RISK >11.0 HIGH RISK Performed By: #### B MP, LIPID #### [facility] [address] [address] [address] Zan Escalante Cholesterol [Mass/Vol] 105 mg/dL Normal <=200 [facility] Comment on above: Performed By: #### B MP, LIPID #### [facility] [address] [address] [address] Zan Escalante Cholesterol in HDL [Mass/Vol] 39 mg/dL Critically low 40-60 [facility] Comment on above: Performed By: #### B MP, LIPID #### [facility] [address] [address] [address] Zan Escalante Cholesterol in LDL [Mass/Vol] 45.0 mg/dL Normal [facility] Comment on above: Performed By: #### B MP, LIPID #### [facility] [address] [place] [address] Dr. Zan Escalante Cholesterol.total/Ch olesterol in HDL [Mass ratio] 2.7 {ratio} Normal [facility] Comment on above: Performed By: #### B MP, LIPID #### [facility] [address] [place] [address] Dr. Zan Escalante HDL NORMAL > or = 60 mg/dl - LOW CARDIOVASCULAR RISK <40 mg/dl - HIGH CARDIOVASCULAR RISK Normal [facility] Comment on above: Performed By: #### B MP, LIPID #### [facility] [address] [address] [address] Zan Escalante LDL CALC NORMAL SEE BELOW Normal [facility] Comment on above: Result Comment: <100 mg/dl OPTIMAL 100 - 129 mg/dl NEAR OR ABOVE OPTIMAL 130 - 159 mg/dl BORDERLINE HIGH 160 - 189 mg/dl HIGH >190 mg/dl VERY HIGH Performed By: #### B MP, LIPID #### [facility] [address] [address] [address] Zan Escalante Triglyceride [Mass/Vol] 105 mg/dL Normal <=150 [facility] Comment on above: Performed By: #### B MP, LIPID #### [facility] [address] [address] [address] Zan Escalante VLDL CALC 21.0 mg/dL Normal [facility] Comment on above: Performed By: #### B MP, LIPID #### [facility] [address] [place] [address] Dr. Zan Escalante PROF CHEM 8 (BAS METB)on Anion gap [Moles/Vol] 12.1 mmol/L Normal [facility] Comment on above: Performed By: #### B MP, LIPID #### [facility] [address] [place] [address] Dr. Zan Escalante Calcium [Mass/Vol] 9.0 mg/dL Normal 8.5-10.1 [facility] Comment on above: Performed By: #### B MP, LIPID #### [facility] [address] [place] [address] Dr. Zan Escalante Chloride [Moles/Vol] 106 mmol/L Normal 98-107 [facility] Comment on above: Performed By: #### B MP, LIPID #### [facility] [address] [place] [address] Dr. Zan Escalante CO2 [Moles/Vol] 28.4 mmol/L Normal 21.0-32.0 [facility] Comment on above: Performed By: #### B MP, LIPID #### [facility] [address] [place] [address] Dr. Zan Escalante Creatinine [Mass/Vol] 1.39 mg/dL Critically high 0.70-1.30 [facility] Comment on above: Performed By: #### B MP, LIPID #### [facility] [address] [place] [address] Dr. Zan Escalante EGFR-AF MICRONESIAN >60 Normal >=60 [facility] Comment on above: Performed By: #### B MP, LIPID #### [facility] [address] [place] [address] Dr. Zan Escalante EGFR-NON AF MICRONESIAN 50 mL/min/1.73m2 Critically low >=60 [facility] Comment on above: Performed By: #### B MP, LIPID #### [facility] [address] [place] [address] Dr. Zan Escalante Glucose [Mass/Vol] 96 mg/dL Normal 74-106 [facility] Comment on above: Performed By: #### B MP, LIPID #### [facility] - [facility] [address] [address] [address] Zan Escalante Potassium [Moles/Vol] 4.5 mmol/L Normal 3.5-5.1 [facility] Comment on above: Performed By: #### B MP, LIPID #### [facility] [address] [place] [address] Dr. Zan Escalante Sodium [Moles/Vol] 142 mmol/L Normal 136-145 [facility] Comment on above: Performed By: #### B MP, LIPID #### [facility] [address] [place] [address] Dr. Zan Escalante Urea nitrogen [Mass/Vol] 23.0 mg/dL Critically high 7.0-18.0 [facility] Comment on above: Performed By: #### B MP, LIPID #### [facility] [address] [place] [address] Dr. Zan Escalante Urea nitrogen/Creatinine [Mass ratio] 16.5 mg/mg Normal [facility] Comment on above: Performed By: #### B MP, LIPID #### [facility] [address] [place] [address] Dr. Zan Escalante ESTRADIOLon 04-17-2022 ESTRADIOL 20.7 pg/mL Low 27-52 [facility] [place] Normal [facility] Comment on above: Result Comment: Test Performed by [employer] [address] [place] [id number] - Released 04/17/2022 14:29 Result Comment: Test Performed by [employer] [address] [place] [id number] - Released 04/17/2022 14:30 TESTOSTERONE, TOTAL ILon Testosterone [Mass/Vol] 108 ng/dL Low 220-1000 [facility] CT UROGRAMon 03-13-2022 CT UROGRAM [facility] Department of Radiology [address] [place] [address] Patient Name: TRAE PINEDA : 1950 Sex: M Age: Race: White Pt. Location: [facility] Patient Status: D Ordered Date: 02/22/2022 [...] achievable Electronically signed: Aquilino Kelly. Transcribed by: [email or web address], User Resident: Electronically Signed by: AQUILINO KELLY @ 03/15/2022 01:05 PM Normal [facility] Vital Signs Date Time Vital Sign Value Performing Clinician Facility 01-12-2025 10:31-0500 Diastolic blood pressure 63 mm[Hg] Margareth De La Cruz [facility] 01-12-2025 10:31-0500 Heart rate 58 /min Margareth De La Cruz [facility] 01-12-2025 10:31-0500 Mean blood pressure 85 mm[Hg] Margareth De La Cruz [facility] 01-12-2025 10:31-0500 Respiratory rate 14 /min Margareth De La Cruz [facility] 01-12-2025 10:31-0500 Systolic blood pressure 130 mm[Hg] Margareth De La Cruz [facility] 12-15-2024 10:15-0500 Diastolic blood pressure 61 mm[Hg] Margareth De La Cruz [facility] 12-15-2024 10:15-0500 Heart rate 67 /min Margareth De La Cruz [facility] 12-15-2024 10:15-0500 Mean blood pressure 84 mm[Hg] Margareth De La Cruz [facility] 12-15-2024 10:15-0500 Respiratory rate 14 /min Margareth De La Cruz [facility] 12-15-2024 10:15-0500 Systolic blood pressure 130 mm[Hg] Margareth De La Cruz [facility] 12-07-2024 09:02-0500 Heart rate 69 /min John Cannon [facility] 12-07-2024 09:02-0500 SaO2% (BldA) [Mass fraction] 99 % Jonh Cannon [facility] 12-07-2024 09:02-0500 Diastolic blood pressure 50 mm[Hg] John Cannon [facility] 12-07-2024 09:02-0500 Mean blood pressure 70 mm[Hg] John Cannon [facility] 12-07-2024 09:02-0500 Systolic blood pressure 110 mm[Hg] John Cannon [facility] 12-07-2024 09:02-0500 Respiratory rate 16 /min John Cannon [facility] 12-07-2024 08:54-0500 Heart rate 67 /min John Cannon [facility] 12-07-2024 08:54-0500 SaO2% (BldA) [Mass fraction] 99 % John Cannon [facility] 12-07-2024 08:54-0500 Respiratory rate 16 /min John Cannon [facility] 12-07-2024 08:54-0500 Body temperature 97.88 [degF] John Cannon [facility] 12-07-2024 08:54-0500 Diastolic blood pressure 56 mm[Hg] John Cannon [facility] 12-07-2024 08:54-0500 Mean blood pressure 76 mm[Hg] John Cannon [facility] 12-07-2024 08:54-0500 Systolic blood pressure 118 mm[Hg] John Cannon [facility] 12-07-2024 08:48-0500 Diastolic blood pressure 80 mm[Hg] John Cannon [facility] 12-07-2024 08:48-0500 Systolic blood pressure 109 mm[Hg] John Cannon [facility] 12-07-2024 08:45-0500 Heart rate 64 /min John Cannon [facility] 12-07-2024 08:45-0500 SaO2% (BldA) [Mass fraction] 99 % John Cannon [facility] 12-07-2024 08:40-0500 Respiratory rate 15 /min John Cannon [facility] 12-07-2024 07:34-0500 gluc 140 mg/dL John Davis [facility] Comment on above: Result Comment: per pt's meter on left a 12-07-2024 07:32-0500 Body temperature 97.7 [degF] John Cannon [facility] 12-07-2024 07:32-0500 Mean blood pressure 98 mm[Hg] John Cannon [facility] 10-29-2024 09:08-0500 Diastolic blood pressure 68 mm[Hg] John Cannon [facility] 10-29-2024 09:08-0500 Heart rate 76 /min John Cannon [facility] 10-29-2024 09:08-0500 Respiratory rate 14 /min John Cannon [facility] 10-29-2024 09:08-0500 Systolic blood pressure 121 mm[Hg] John Cannon [facility] 10-13-2024 13:51-0500 Diastolic blood pressure 79 mm[Hg] Margareth De La Cruz [facility] 10-13-2024 13:51-0500 Mean blood pressure 98 mm[Hg] Margareth De La Cruz [facility] 10-13-2024 13:51-0500 Systolic blood pressure 137 mm[Hg] Margareth De La Cruz [facility] 09-08-2024 11:49-0400 Heart rate 60 /min John Cannon [facility] 09-08-2024 11:49-0400 SaO2% (BldA) [Mass fraction] 99 % John Cannon [facility] 09-08-2024 11:48-0400 Diastolic blood pressure 66 mm[Hg] John Cannon [facility] 09-08-2024 11:48-0400 Mean blood pressure 96 mm[Hg] John Cannon [facility] 09-08-2024 11:48-0400 Systolic blood pressure 156 mm[Hg] John Cannon [facility] 09-08-2024 11:48-0400 Respiratory rate 16 /min John Cannon [facility] 09-08-2024 11:38-0400 Diastolic blood pressure 84 mm[Hg] John Cannon [facility] 09-08-2024 11:38-0400 Heart rate 58 /min John Cannon [facility] 09-08-2024 11:38-0400 Respiratory rate 14 /min John Cannon [facility] 09-08-2024 11:38-0400 SaO2% (BldA) [Mass fraction] 96 % John Cannon [facility] 09-08-2024 11:38-0400 Systolic blood pressure 151 mm[Hg] John Cannon [facility] 09-08-2024 11:01-0400 gluc 134 mg/dL John Cannon [facility] Comment on above: Result Comment: per pt's meter 09-08-2024 10:58-0400 Heart rate 61 /min John Cannon [facility] 09-08-2024 10:58-0400 SaO2% (BldA) [Mass fraction] 99 % John Cannon [facility] 09-08-2024 10:57-0400 Diastolic blood pressure 78 mm[Hg] John Cannon [facility] 09-08-2024 10:57-0400 Mean blood pressure 103 mm[Hg] John Cannon [facility] 09-08-2024 10:57-0400 Systolic blood pressure 152 mm[Hg] John Davis [facility] 09-08-2024 10:57-0400 Respiratory rate 18 /min John Davis [facility] 09-08-2024 10:54-0400 Body temperature 97.7 [degF] John Davis [facility] 08-03-2024 14:37-0400 Diastolic blood pressure 65 mm[Hg] Margareth De La Cruz [facility] 08-03-2024 14:37-0400 Heart rate 62 /min Margareth Sponge [facility] 08-03-2024 14:37-0400 Mean blood pressure 83 mm[Hg] Margareth Sponge [facility] 08-03-2024 14:37-0400 Respiratory rate 16 /min Margareth Sponge [facility] 08-03-2024 14:37-0400 Systolic blood pressure 118 mm[Hg] Margareth Sponge [facility] 05-18-2024 13:07-0400 Diastolic blood pressure 71 mm[Hg] Margareth Sponge [facility] 05-18-2024 13:07-0400 Heart rate 59 /min Margareth Sponge [facility] 05-18-2024 13:07-0400 Mean blood pressure 99 mm[Hg] Margareth Sponge [facility] 05-18-2024 13:07-0400 Respiratory rate 16 /min Margareth Sponge [facility] 05-18-2024 13:07-0400 Systolic blood pressure 156 mm[Hg] Margareth Sponge [facility] 03-27-2024 14:19-0400 Diastolic blood pressure 69 mm[Hg] Margareth Sponge [facility] 03-27-2024 14:19-0400 Heart rate 69 /min Margareth Sponge [facility] 03-27-2024 14:19-0400 Mean blood pressure 96 mm[Hg] Margareth Sponge [facility] 03-27-2024 14:19-0400 Respiratory rate 15 /min Margareth Sponge [facility] 03-27-2024 14:19-0400 Systolic blood pressure 151 mm[Hg] Margareth Sponge [facility] 02-14-2024 13:32-0400 Diastolic blood pressure 62 mm[Hg] Margareth De La Cruz [facility] 02-14-2024 13:32-0400 Heart rate 66 /min Margareth De La Cruz [facility] 02-14-2024 13:32-0400 Mean blood pressure 87 mm[Hg] Margareth De La Cruz [facility] 02-14-2024 13:32-0400 Respiratory rate 14 /min Margareth De La Cruz [facility] 02-14-2024 13:32-0400 Systolic blood pressure 136 mm[Hg] Margareth De La Cruz [facility] 01-15-2024 14:27-0500 Heart rate 63 /min John Cannon [facility] 01-15-2024 14:27-0500 SaO2% (BldA) [Mass fraction] 100 % John Cannon [facility] 01-15-2024 14:27-0500 Respiratory rate 16 /min John Canonn [facility] 01-15-2024 14:26-0500 Diastolic blood pressure 78 mm[Hg] John Cannon [facility] 01-15-2024 14:26-0500 Mean blood pressure 116 mm[Hg] John Cannon [facility] 01-15-2024 14:26-0500 Systolic blood pressure 192 mm[Hg] John Cannon [facility] 01-15-2024 14:17-0500 Diastolic blood pressure 76 mm[Hg] John Cannon [facility] 01-15-2024 14:17-0500 Heart rate 66 /min John Cannon [facility] 01-15-2024 14:17-0500 Respiratory rate 14 /min John Cannon [facility] 01-15-2024 14:17-0500 SaO2% (BldA) [Mass fraction] 96 % Lopez Davis [facility] 01-15-2024 14:17-0500 Systolic blood pressure 143 mm[Hg] Lopez Davis [facility] 01-15-2024 13:42-0500 gluc 128 mg/dL John Cannon [facility] Comment on above: Result Comment: per pt's meter on right arm 01-15-2024 13:30-0500 Heart rate 60 /min John Davis [facility] 01-15-2024 13:30-0500 SaO2% (BldA) [Mass fraction] 99 % John Davis [facility] 01-15-2024 13:30-0500 Body temperature 97.34 [degF] John Cannon [facility] 01-15-2024 13:30-0500 Diastolic blood pressure 78 mm[Hg] John Cannon [facility] 01-15-2024 13:30-0500 Mean blood pressure 111 mm[Hg] John Cannon [facility] 01-15-2024 13:30-0500 Systolic blood pressure 175 mm[Hg] John Cannon [facility] 01-15-2024 13:29-0500 Respiratory rate 14 /min John Cannon [facility] 12-16-2023 10:23-0500 Diastolic blood pressure 66 mm[Hg] Margareth De La Cruz [facility] 12-16-2023 10:23-0500 Heart rate 70 /min Margareth De La Cruz [facility] 12-16-2023 10:23-0500 Mean blood pressure 92 mm[Hg] Margareth De La Cruz [facility] 12-16-2023 10:23-0500 Respiratory rate 14 /min Margareth De La Cruz [facility] 12-16-2023 10:23-0500 Systolic blood pressure 144 mm[Hg] Margareth De La Cruz [facility] 11-12-2023 10:00-0500 Body height 182.88 cm Cristobal Ball Other [employer] [facility] [employer] Other 11-12-2023 10:00-0500 Body mass index (BMI) [Ratio] 32.46 kg/m2 Cristobal Ball Other [employer] [facility] [employer] Other 11-12-2023 10:00-0500 Body weight 108.59 kg Cristobal Ball Other [facility] [employer] Other 11-12-2023 10:00-0500 Diastolic blood pressure 76 mm[Hg] Cristobal Ball Other [employer] Other 11-12-2023 10:00-0500 Respiratory rate 16 /min Cristobal Ball Other [employer] Other 11-12-2023 10:00-0500 Systolic blood pressure 137 mm[Hg] Cristobal Ball Other [facility] [employer] Other 11-08-2023 10:58-0500 Diastolic blood pressure 71 mm[Hg] Margareth De La Cruz [facility] 11-08-2023 10:58-0500 Heart rate 63 /min Margareth De La Cruz [facility] 11-08-2023 10:58-0500 Mean blood pressure 93 mm[Hg] Margareth De La Cruz [facility] 11-08-2023 10:58-0500 Respiratory rate 15 /min Margareth De La Cruz [facility] 11-08-2023 10:58-0500 Systolic blood pressure 136 mm[Hg] Margareth De La Cruz [facility] 09-06-2023 11:09-0400 Diastolic blood pressure 77 mm[Hg] Margareth De La Cruz [facility] 09-06-2023 11:09-0400 Heart rate 59 /min Margareth De La Cruz [facility] 09-06-2023 11:09-0400 Mean blood pressure 106 mm[Hg] Margareth De La Cruz [facility] 09-06-2023 11:09-0400 Respiratory rate 16 /min Margareth De La Cruz [facility] 09-06-2023 11:09-0400 Systolic blood pressure 163 mm[Hg] Margareth De La Cruz [facility] 08-06-2023 14:22-0400 Heart rate 59 /min Himanshu Adriana [facility] 08-06-2023 14:22-0400 SaO2% (BldA) [Mass fraction] 99 % Himanshu Adriana [facility] 08-06-2023 14:22-0400 Diastolic blood pressure 91 mm[Hg] Himanshu Adriana [facility] 08-06-2023 14:22-0400 Mean blood pressure 107 mm[Hg] Himanshu Adriana [facility] 08-06-2023 14:22-0400 Systolic blood pressure 139 mm[Hg] Himanshu Adriana [facility] 08-06-2023 14:15-0400 Diastolic blood pressure 80 mm[Hg] Himanshu Adriana [facility] 08-06-2023 14:15-0400 Heart rate 58 /min Himanshu Adriana [facility] 08-06-2023 14:15-0400 SaO2% (BldA) [Mass fraction] 97 % Himanshu Adriana [facility] 08-06-2023 14:15-0400 Systolic blood pressure 146 mm[Hg] Himanshu Adriana [facility] 08-06-2023 13:52-0400 Respiratory rate 14 /min Himanshugerardo Wright [facility] 08-06-2023 13:00-0400 Body temperature 98.06 [degF] Himanshu Wright [facility] 08-06-2023 13:00-0400 Diastolic blood pressure 70 mm[Hg] Himanshugerardo Wright [facility] 08-06-2023 13:00-0400 Heart rate 67 /min Himanshu Wright [facility] 08-06-2023 13:00-0400 Systolic blood pressure 144 mm[Hg] Himanshu Adriana [facility] 07-02-2023 14:17-0400 Diastolic blood pressure 71 mm[Hg] Margareth De La Cruz [facility] 07-02-2023 14:17-0400 Heart rate 61 /min Margareth De La Cruz [facility] 07-02-2023 14:17-0400 Mean blood pressure 97 mm[Hg] Margareth De La Cruz [facility] 07-02-2023 14:17-0400 Respiratory rate 14 /min Margareth De La Cruz [facility] 07-02-2023 14:17-0400 Systolic blood pressure 148 mm[Hg] Margareth De La Cruz [facility] 01-11-2023 13:43-0500 Diastolic blood pressure 75 mm[Hg] Margareth De La Cruz [facility] 01-11-2023 13:43-0500 Heart rate 76 /min Margareth De La Cruz [facility] 01-11-2023 13:43-0500 Mean blood pressure 105 mm[Hg] Margareth De La Cruz [facility] 01-11-2023 13:43-0500 Respiratory rate 18 /min Margareth De La Cruz [facility] 01-11-2023 13:43-0500 Systolic blood pressure 166 mm[Hg] Margareth De La Cruz [facility] 01-08-2023 13:30-0500 Body height 182.88 cm Cristobal Ball Other [facility] [employer] Other 01-08-2023 13:30-0500 Body mass index (BMI) [Ratio] 32.11 kg/m2 Cristobal Ball Other [employer] [facility] [employer] Other 01-08-2023 13:30-0500 Body weight 107.41 kg Cristobal Ball Other [employer] [facility] [employer] Other 01-08-2023 13:30-0500 Diastolic blood pressure 70 mm[Hg] Cristobal Ball Other [employer] Other 01-08-2023 13:30-0500 Respiratory rate 16 /min Cristobal Ball Other [employer] Other 01-08-2023 13:30-0500 Systolic blood pressure 126 mm[Hg] Cristobal Ball Other [employer] Other 12-12-2022 11:00-0500 Heart rate 73 /min Tutu Zumbar [facility] 12-12-2022 11:00-0500 SaO2% (BldA) [Mass fraction] 98 % Tutu Zumbar [facility] 12-12-2022 11:00-0500 Diastolic blood pressure 75 mm[Hg] Tutu Zumbar [facility] 12-12-2022 11:00-0500 Mean blood pressure 108 mm[Hg] Tutu Zumbar [facility] 12-12-2022 11:00-0500 Systolic blood pressure 173 mm[Hg] Tutu Zumbar [facility] 12-12-2022 10:51-0500 Diastolic blood pressure 88 mm[Hg] Tutu Zumbar [facility] 12-12-2022 10:51-0500 Heart rate 71 /min Tutu Zumbar [facility] 12-12-2022 10:51-0500 Respiratory rate 16 /min Tutu Zumbar [facility] 12-12-2022 10:51-0500 SaO2% (BldA) [Mass fraction] 96 % Tutu Zumbar [facility] 12-12-2022 10:51-0500 Systolic blood pressure 157 mm[Hg] Tutu Zumbar [facility] 12-12-2022 10:13-0500 Heart rate 75 /min Tutu Zumbar [facility] 12-12-2022 10:13-0500 SaO2% (BldA) [Mass fraction] 97 % Tutu Zumbar [facility] 12-12-2022 10:13-0500 Body temperature 97.88 [degF] Tutu Zumbar [facility] 12-12-2022 10:12-0500 Diastolic blood pressure 76 mm[Hg] Tutu Zumbar [facility] 12-12-2022 10:12-0500 Mean blood pressure 108 mm[Hg] Tutu Zumbar [facility] 12-12-2022 10:12-0500 Systolic blood pressure 170 mm[Hg] Tutu Zumbar [facility] 12-12-2022 10:10-0500 Respiratory rate 16 /min Tutu Zumbar [facility] 11-08-2022 15:04-0500 Diastolic blood pressure 76 mm[Hg] Tutu Zumbar [facility] 11-08-2022 15:04-0500 Heart rate 62 /min Tutu Zumbar [facility] 11-08-2022 15:04-0500 Mean blood pressure 108 mm[Hg] Tutu Zumbar [facility] 11-08-2022 15:04-0500 Respiratory rate 14 /min Tutu Zumbar [facility] 11-08-2022 15:04-0500 Systolic blood pressure 173 mm[Hg] Tutu Zumbar [facility] Encounters Encounter Date Encounter Type Care Provider Facility Start: 01-12-2025 End: 01-12-2025 ambulatory Margareth De La Cruz Facility:[facility] Start: 01-12-2025 End: 01-12-2025 Patient encounter procedure Margareth De La Cruz [facility] Start: 12-28-2024 End: 12-28-2024 ambulatory [facility] Start: 12-15-2024 End: 12-15-2024 ambulatory Margareth De La Cruz Facility:[facility] Start: 12-15-2024 End: 12-15-2024 Patient encounter procedure Margareth De La Cruz [facility] Start: 12-07-2024 End: 12-07-2024 ambulatory John Cannon Facility:[facility] Start: 12-07-2024 End: 12-07-2024 Pain Management John Cannon [facility] Start: 11-03-2024 End: 11-03-2024 ambulatory [facility] Start: 10-29-2024 End: 10-29-2024 ambulatory John Cannon Facility:[facility] Start: 10-29-2024 End: 10-29-2024 Patient encounter procedure John Cannon [facility] Start: 10-13-2024 End: 10-13-2024 ambulatory Margareth De La Cruz Facility:[facility] Start: 10-13-2024 End: 10-13-2024 Patient encounter procedure Margareth De La Cruz [facility] Start: 09-08-2024 End: 09-08-2024 ambulatory John Cannon Facility:[facility] Start: 09-08-2024 End: 09-08-2024 Pain Management John Cannon [facility] Start: 08-31-2024 End: 08-31-2024 ambulatory [facility] Start: 08-13-2024 End: 08-13-2024 ambulatory [facility] Start: 08-03-2024 End: 08-03-2024 ambulatory Margareth Jono Facility:[facility] Start: 08-03-2024 End: 08-03-2024 Patient encounter procedure Margareth De La Cruz [facility] Start: 07-27-2024 End: 07-27-2024 ambulatory [facility] Start: 05-19-2024 End: 05-19-2024 ambulatory [facility] Start: 05-18-2024 End: 05-18-2024 ambulatory Margareth Jono Facility:[facility] Start: 05-18-2024 End: 05-18-2024 Pain Management Margareth De La Cruz [facility] Start: 05-11-2024 End: 05-11-2024 ambulatory [facility] Start: 05-11-2024 End: 05-11-[address] [facility] Start: 03-27-2024 End: 03-27-2024 ambulatory PA-C Margareth De La Cruz Facility:[facility] Start: 03-27-2024 End: 03-27-2024 Pain Management Margareth De La Cruz [facility] Start: 03-17-2024 End: 03-17-2024 ambulatory [facility] Start: 02-14-2024 End: 02-14-2024 ambulatory PA-C Margareth De La Cruz Facility:[facility] Start: 02-14-2024 End: 02-14-2024 Pain Management Margareth De La Cruz [facility] Start: 02-11-2024 End: 02-11-2024 ambulatory Cristobal Michel Other [employer] Other Start: 02-11-2024 Telephone encounter [facility] Start: 01-20-2024 End: 01-20-2024 ambulatory [facility] Start: 01-15-2024 End: 01-15-2024 ambulatory John Cannon Facility:[facility] Start: 01-15-2024 End: 01-15-2024 Pain Management John Cannon [facility] Start: 12-16-2023 End: 12-16-2023 Pain Management Margareth De La Cruz [facility] Start: 11-27-2023 End: 11-27-2023 ambulatory Cristobal Michel Other [employer] Other Start: 11-27-2023 Telephone encounter Cristobal Michel [facility] Start: 11-19-2023 End: 11-19-2023 ambulatory Cristobal Michel Other [employer] Other Start: 11-19-2023 Telephone encounter Cristobal Michel ROSALINDA [facility] Start: 11-14-2023 End: 11-14-2023 ambulatory Cristobal Michel Other [employer] Other Start: 11-14-2023 Telephone encounter Cristobal TELLEZ [facility] Start: 11-12-2023 End: 11-12-2023 ambulatory Cristobal Michel Other [employer] Other Start: 11-12-2023 Office outpatient vi sit 25 minutes Cristobal Michel [employer] [facility] Start: 11-08-2023 End: 11-08-2023 Pain Management Margareth De La Cruz [facility] Start: 09-06-2023 End: 09-06-2023 Pain Management Margareth De La Cruz [facility] Start: 09-04-2023 End: 09-04-2023 ambulatory Cristobal Michel Other [employer] Other Start: 09-04-2023 Telephone encounter Cristobal Michel [facility] Start: 08-21-2023 End: 08-21-2023 ambulatory Cristobal Michel Other [employer] Other Start: 08-21-2023 Telephone encounter Cristobal Michel ROSALINDA [facility] Start: 08-06-2023 End: 08-06-2023 Pain Management Himanshu Wright [facility] Start: 07-23-2023 End: 07-23-2023 ambulatory Cristobal Michel Other [facility] Other Start: 07-23-2023 Telephone encounter Cristobal TELLEZ [facility] Start: 07-02-2023 End: 07-02-2023 Pain Management Margareth De La Cruz [facility] Start: 03-19-2023 End: 03-19-2023 ambulatory Cristobal Som Other [facility] Other Start: 03-19-2023 Office outpatient vi sit 15 minutes Cristobal Michel [facility] Start: 03-08-2023 End: 03-08-2023 ambulatory Cristobal Som Other [facility] Other Start: 03-08-2023 Telephone encounter Cristobal Som TELLEZ [facility] Start: 03-07-2023 Telephone encounter Cristobal TELLEZ [facility] Start: 03-07-2023 End: 03-08-[address] CRISTOBAL MICHEL [facility] Other Start: 02-26-2023 End: 02-26-2023 ambulatory Cristobal Michel Other [facility] Other Start: 02-26-2023 Telephone encounter Cristobal Michel FP [facility] Start: 01-18-2023 Telephone encounter Cristobal Michel FP [facility] Start: 01-18-2023 End: 01-19-[address] DOCTOR ADAMS [facility] [employer] Other Start: 01-11-2023 End: 01-11-2023 Pain Management Margareth De La Cruz [facility] Start: 01-08-2023 End: 01-08-2023 ambulatory Cristobal Michel Other [facility] [employer] Other Start: 01-08-2023 Office outpatient vi sit 25 minutes Cristobal Michel [facility] Start: 12-12-2022 End: 12-12-2022 Pain Management Tutu Katzar [facility] Start: 11-23-2022 End: 11-23-[address] CRISTOBAL MICHEL Facility:[facility] Start: 11-18-2022 End: 11-22-[address] CRISTOBAL MICHEL Facility:[facility] Start: 11-08-2022 End: 11-08-2022 Patient encounter procedure Tutu Zumbar [facility] Start: 11-08-2022 End: 11-08-2022 Pain Management Tutu Zumbar [facility] Start: 08-29-2022 End: 08-30-[address] DOCTOR ADAMS Facility:[facility] Start: 07-31-2022 End: 08-01-[address] MOI CAMPBELL Facility:[facility] Start: 07-02-2022 Encounter for preprocedural laboratory examination DR CRISTOBAL MICHEL [facility] Start: 06-29-2022 End: 06-30-2022 Encounter for preprocedural laboratory examination DR CRISTOBAL MICHEL Facility:[facility] Start: 06-29-2022 End: 06-30-[address] CRISTOBAL MICHEL Facility:[facility] Start: 06-14-2022 End: 11-17-[address] CRISTOBAL MICHEL Facility: Start: 03-13-2022 End: 03-14-2022 ambulatory LUPIS DENNIS Facility:[facility] Procedures Date Procedure Procedure Detail Performing Clinician Start: 12-07-2024 Minimally invasive decompression of lumbar spine [facility] Start: 05-11-2024 Follow-up visit Follow-up MORENITA Mildred CHARSophieRICCO Start: 01-15-2024 Epidural injection o f lumbar spine using fluoroscopic guidance [employer] [facility] [employer] Comment on above: 0% relief Start: 08-06-2023 Injection of nerve r oot of lumbar spine using fluoroscopic guidance [employer] [facility] [employer] Comment on above: bilat L5/S1 TFESI- 9 0% relief x 2 weeks Start: 12-12-2022 Injection of nerve r oot of lumbar spine using fluoroscopic guidance [employer] [facility] Comment on above: L5-S1-90% relief Start: 04-17-2022 PSA screening LUPIS DENNIS Comment on above: Performed By: #### 4 [id number] #### [facility] [address] Start: 11-22-2021 Injection of nerve r oot of lumbar spine using fluoroscopic guidance Tutu Guzman Comment on above: Bilateral L5 TFESI-9 0-95% relief Start: 07-01-2020 Epidural steroid injection Tutu Guzman Comment on above: bilat L5 TFESI- 100% relief x 2 weeks now down to 50% Start: 1950 Epidural injection o f lumbar spine using fluoroscopic guidance [employer] [facility] [employer] Coronary bypass gustabo t angiography Tutu Guzman [...] high dose seasonal, preservative-free Cristobal Michel Other [facility] Other 08-21-2021 influenza virus vaccine, split virus (incl. purified surface antigen) Cristobal Michel Other [facility] Other 08-11-2021 COVID-19 Vaccine Pfi zer - Documentation Purposes Only Cristobal Som Other [facility] Other 01-10-2021 COVID-19 Vaccine Pfi zer - Documentation Purposes Only Cristobal Som Other [facility] Other 12-20-2020 COVID-19 Vaccine Pfi zer - Documentation Purposes Only Cristobal Som Other [facility] Other 08-12-2020 zoster vaccine, live Benjami yonathan Som Other [facility] Other 07-27-2020 influenza virus vaccine, split virus (incl. purified surface antigen) Cristobal Som Other [facility] Other 08-26-2019 influenza virus vaccine, split virus (incl. purified surface antigen) Cristobal Som Other [facility] Other 10-29-2018 influenza virus vaccine, split virus (incl. purified surface antigen) Cristobal Som Other [facility] Other 07-19-2017 influenza virus vaccine, split virus (incl. purified surface antigen) Cristobal Som Other [facility] Other 10-09-2016 influenza virus vaccine, split virus (incl. purified surface antigen) Cristobal Michel Other [facility] Other 10-18-2015 influenza virus vaccine, split virus (incl. purified surface antigen) Cristobal Michel Other [facility] Other 09-20-2015 pneumococcal conjuga te vaccine, 13 valent Cristobal Michel Other [facility] Other 11-07-2012 pneumococcal polysaccharide vaccine, 23 valent Cristobal Michel Other [facility] Other Payers Date Payer Category Payer Private Health Insurance [id number] 1950 Unknown [id number] 2.16.8 40.1.262908.3.579.2.647 1950 Unknown [id number] 2.16.84 0.1.096464.3.579.2.593 1950 Unknown [id number] 2.16.84 0.1.445968.3.579.2.593 1950 Unknown [id number] 2.16.84 0.1.553562.3.579.2.593 1950 Unknown [id number] 2.16.84 0.1.405971.3.579.2.593 1950 Unknown [id number] 2.16.84 0.1.529598.3.579.2.593 1950 Unknown [id number] 2.16.84 0.1.008124.3.579.2.593 1950 Unknown [id number] 2.16.84 0.1.316470.3.579.2.593 1950 Unknown [id number] 2.16.84 0.1.265031.3.579.2.593 1950 Unknown [id number] 2.16.84 0.1.965842.3.579.2.593 1950 Unknown [id number] 2.16.8 40.1.644166.3.579.2.727 1950 Unknown [id number] 2.16.8 40.1.263063.3.579.2.727 1950 Unknown [id number] 2.16.8 40.1.961444.3.579.2.72 1950 Unknown [id number] 2.16.8 40.1.182499.3.579.2.72 1950 Unknown [id number] 2.16.8 40.1.570526.3.579.2.727 1950 Unknown [id number] 2.16.8 40.1.844323.3.579.2.727 1950 Unknown [id number] 2.16.8 40.1.531447.3.579.2.727 1950 Unknown [id number] 2.16.8 40.1.998055.3.579.2.727 1950 Unknown [id number] 2.16.8 40.1.221070.3.579.2.727 1950 Unknown [id number] 2.16.8 40.1.817000.3.579.2.72 1950 Unknown [id number] 2.16.8 40.1.653136.3.579.2.727 Social History Date Type Detail Facility Start: 10-05-2021 Tobacco smoking status Ex-smoker (fi nding) [facility] Comment on above: Quit in 1982 Sex Assigned At Male [facility] Medical Equipment Procedure Code Equipment Code Equipment Origin al Text Equipment Identifier Dates Start: 04-09-2023 Functional Status Date Assessment Result Facility 01-12-2025 Functional Status N/A [place] 12-15-2024 Functional Status N/A [place] 12-07-2024 Functional Status N/A [place] 10-29-2024 Functional Status N/A [place] 10-13-2024 Functional Status N/A [place] 09-08-2024 Functional Status N/A [place] 08-03-2024 Functional Status N/A [place] 05-18-2024 Functional Status N/A [place] 03-27-2024 Functional Status N/A [place] 02-14-2024 Functional Status N/A [place] 01-15-2024 Functional Status N/A [place] 12-16-2023 Functional Status N/A [place] 11-08-2023 Functional Status N/A [place] 09-06-2023 Functional Status N/A [place] 08-06-2023 Functional Status N/A [place] 07-02-2023 Functional Status N/A [place] 01-11-2023 Functional Status N/A [place] 12-12-2022 Functional Status N/A [place] 11-08-2022 Functional Status N/A [place] Clinical Notes 01-08-2023 to 01-12-2025 Note Date & Type Note Facility 01-12-2025 Evaluation + Plan note Extrac priscilla from: Title:Pain Managment Follow up Author:Margareth Umaña Date:01/12/25 Impression and Plan Patient is a 74-year-old male with a past medical history significant for lumbar stenosis recent mild procedure, chronic lower back pain and lumbar spondylosis. At this time, after undergoing the mild procedure his radicular symptoms are better. His leg pain feels better. He has been able to walk and stand. Unfortunate, he is still having lateral lower back pain that on physical examination appears facet mediated. We reviewed his MRI scan. We discussed different options. He has previously trialed and failed all other reasonable conservative treatments. At this time, based on his imaging findings, his failure to improve with conservative treatments and the significant back pain he is still experiencing I recommended bilateral medial branch block covering the L4-S1 facet joints. This will be done under fluoroscopy for diagnostic purposes. If he gets significant short-term relief he may be a future candidate for RFA. Patient will follow-up 1 week after the injection for reevaluation. Call the clinic sooner if necessary. LEONOR score: 40%. [facility] 02-25-2025 NoteConsultation Note Patient: TRAE PINEDA Age: 74 years Sex: Male : 1950 Associated Diagnoses: None Author: Margareth De La Cruz PA-C Subjective Chief complaint 01/12/2025 10:31 EST Back Pain . Patient is a 74-year-old male following up today for a second follow-up after undergoing an L4-5 mild procedure on 12/07/2024 at this time has given him improvement. His radicular symptoms are better.His leg pain is better. He is better able to walk and stand. He is better able to do things. His quality of life is improved in regards to this but reported, he still having back pain worse with twisting, worse with bending, or sleeping upright and active and he wonders what he can do for this. He did not tolerate Lyrica due to swelling. He is not on any medications by our services. He wants to discuss the back pain that at this time he rates a 3???6/10 depending on what he is doing. He has done therapy in the past that has not helped. He has a history of L3-[address] Pino. He has taken a multitude of medications. Unfortunately the back pain is his rate limiting factor at this time. Health Status Allergies: Allergic Reactions (Selected) Severity Not Documented HydrALAZINE- Palpatations. Lyrica- Swelling. Statins- Muscle ache., Allergies (3) Active Severity Reaction statins muscle ache hydrALAZINE palpatations Lyrica Swelling Current medications: (Selected) Documented Medications Documented Alpha [...] Oral, Daily, # 10 cap(s), Refills(s) 0 metoprolol succinate 25 mg ER Tab: 12.5 mg = 0.5 tab(s), Oral, Daily, Refills(s) 0 testosterone 2% transdermal cream: See Instructions, apply topically daily, Refills(s) 0 Problem list: All Problems History of heart attack / SNOMED CT 5064514732 / Confirmed Acute angina / SNOMED CT 947235360 / Confirmed Irregular heart beat / SNOMED CT 556568138 / Confirmed HTN (hypertension) / SNOMED CT 8703877387 / Confirmed High cholesterol / SNOMED CT 82828207 / Confirmed H/O heart bypass surgery / SNOMED CT 092929616 / Confirmed Apnea, sleep / SNOMED CT 290501033 / Confirmed CPAP (continuous positive airway pressure) dependence / SNOMED CT 1360090395 / Confirmed Enlarged prostate / SNOMED CT 695195969 / Confirmed Chronic kidney disease (CKD) / SNOMED CT 2183758429 / Confirmed Diabetes / SNOMED CT 956405005 / Confirmed Carpal tunnel syndrome / SNOMED CT 34455463 / Confirmed Anemia / SNOMED CT 867522874 / Confirmed Arthritis, rheumatoid / SNOMED CT 603404833 / Confirmed Obesity / ICD-9-CM 278.00 / Possible Obesity / SNOMED CT [id number] / Possible Objective Vital Signs 01/12/2025 10:31 EST Peripheral Pulse Rate 58 bpm LOW Respiratory Rate 14 br/min Systolic Blood Pressure 130 mmHg Diastolic Blood Pressure 63 mmHg Mean Arterial Pressure, Cuff 85 mmHg General: Alert and oriented, No acute distress. Eye: Normal conjunctiva. HENT: Normocephalic, Normal hearing. Cardiovascular: No edema. Musculoskeletal Normal range of motion. Normal strength. 5/5 lower extremity strength Pain with compression of the bilateral lumbar facet joints Increased lower back pain with bilateral facet loading Integumentary: Warm, Dry, [place]. Small area of eschar improved from before. Neurologic: Alert, Oriented. Psychiatric: Cooperative, Appropriate mood & affect. 14 point review of systems was negative unless otherwise noted. Results Review * Final Report * Reason For Exam M48.07 POWERSCRIBE REPORT IMPRESSION: MULTILEVEL DEGENERATIVE CHANGES. CLINICAL HISTORY: M48.07. Low back pain. COMMENT: Eight views. There are 6 lumbar like vertebra. No significant interspace narrowing is noted. There is marginal hypertrophic spurring of lumbar and visualized lower thoracic vertebral bodies. There are hypertrophic arthritic changes of lumbar facet joints. The vertebral bodies are maintained in height. No fracture nor subluxation is evident. Motion of the lumbar spine is unremarkable on the flexion and extension lateral views. There are exten (more content not included)...[facility]Result Comment: Electronically Signed By: Margareth De La Cruz PA-C\.br\Date and Time Signed: 01/12/25 10:58 [id number] NoteUT Cardiology - [facility] Subjective Trae Pineda is a 74 y.o. year old male patient being seen for 4 mo follow up CAD, hypertension, hyperlipidemia, and carotid artery stenosis. Wore 30 day event monitor in Aug 2024 after last apt. Chest pain and palpitations have resolved he says. ARAGON remains stable and unchanged. Patient Active Problem List Diagnosis Type 2 diabetes mellitus without complication (CMS/HCC) Seizure (CMS/HCC) Chronic prostatitis Prostate cancer screening Kidney stone Hyperlipidemia Generalized ischemic myocardial dysfunction Generalized anxiety disorder [place] ARAGON (dyspnea on exertion) Disorder of lipid metabolism Depressive disorder Chronic obstructive lung disease (CMS/HCC) Chronic anxiety Chest pain Primary hypertension Coronary artery disease involving paimiut coronary artery of paimiut heart Coronary arteriosclerosis of [place] coronary artery of transplanted heart Suprapubic discomfort [...] Social History Tobacco Use Smoking status: Former Current packs/day: 0.00 Types: Cigarettes Quit date: 11/18/1982 Years since quittin.1 Passive exposure: Never Smokeless tobacco: Never Vaping Use Vaping status: Never Used Substance Use Topics Alcohol use: Never Drug [...] dysfunction (pseudonormalized LV filling pattern). Normal right v (more content not included)...[facility] 12-15-2024 Evaluation + Plan noteExtracted from: Title:Pain Managment [...] AM Scheduled Provider:Margareth De La Cruz PA-C Location[facility] Appointment Type:Pain Management - Follow Up (FT) [facility] 01-28-2025 NoteConsultation Note Patient: TRAE PINEDA [...] # 30 tab(s), Refills(s) 0, Pharmacy: [facility]/pharmacy #[id number], 183, cm, 02/14/24 13:46:00 EDT, Height/Length [...] History of heart attack / SNOMED CT 8175927724 / Confirmed Acute angina / SNOMED CT 210180336 / Confirmed Irregular heart beat / SNOMED CT 715564239 / Confirmed HTN (hypertension) / SNOMED CT 1910802173 / Confirmed High cholesterol / SNOMED CT 74671907 / Confirmed H/O heart bypass surgery / SNOMED CT 903734431 / Confirmed Apnea, sleep / SNOMED CT 780641328 / Confirmed CPAP (continuous positive airway pressure) dependence / SNOMED CT 2606886652 / Confirmed Enlarged prostate / SNOMED CT 824111670 / Confirmed Chronic kidney disease (CKD) / SNOMED CT 3782379189 / Confirmed Diabetes / SNOMED CT 913124478 / Confirmed Carpal tunnel syndrome / SNOMED CT 23062207 / Confirmed Anemia / SNOMED CT 437101158 / Confirmed Arthritis, rheumatoid / SNOMED CT 252684034 / Confirmed Obesity / ICD-9-CM 278.00 / Possible Obesity / SNOMED CT [id number] / Possible Objective Vital Signs 12/15/2024 10:15 EST Peripheral Pulse Rate 67 bpm Respiratory Rate 14 br/min Systolic Blood Pressure 130 mmHg Diastolic Blood Pressure 61 mmHg Mean Arterial Pressure, Cuff 84 mmHg General: Alert and oriented, No acute distress. Eye: Normal conjunctiva. HENT: Normocephalic, Normal hearing. Cardiovascular: No edema. Musculoskeletal Normal range of motion. Normal strength. 5/5 strength Integumentary: Warm, Dry, [place]. Small area of eschar Some glue residue [...] he wonders about pos (more content not included)...[facility] Comment on above:Result Comment: Electronically Signed By: Jono AGOSTO, Margareth\.dawit\Date and Time Signed: 12/15/24 10:41 [id number] Evaluation + Plan noteExtracted from: Title:ANES Post-operative [...] then advanced into the appropriate space using [id number]-[id number] and confirmed by fluoroscopy and contrast spread. [...] Author: Gerber Catalan Jr., DO Date:12/07/24 Plan [place] [employer]hesi[employer] (ASA) physical status classification: Class III. Anesthetic Preoperative Plan: Anesthesia Monitored anethesia care. Future Appointments Appointment Date:12/15/2024 10:15:00 AM Scheduled Provider:Margareth De La Cruz PA-C Location:[facility] Appointment Type:Pain Management - Follow Up (FT) [facility] [id number] NoteProgress Note-Physician Patient: TRAE PINEDA Age: 74 years Sex: Male : 1950 Associated Diagnoses: None Author: Gerber Catalan Jr., DO Postoperative Information Postoperative disposition: Postoperative disposition: To PACU. Optimetrix number: Optimetrix number [id number]. Anesthetic utilized: Monitored anesthesia care. Physical Examination Vital signs stable. Pain Assessment: Controlled. General: Awake, Alert, Appropriate. Respiratory: Adequate air exchange, Equal bilateral chest wall expansion, Non-labored. Cardiovascular: Stable, Normal peripheral perfusion. Neurological: Normal sensory function. Assessment Anesthetic outcome No anesthetic complications noted. Review / Management Condition: Stable. Plan Transfer/Discharge: Transfer/Discharge Discharge when meets criteria.[facility] above:Result Comment: Electronically Signed By: Gerber Catalan Jr., DO\.br\Date and Time Signed: 12/07/24 12:41 [id number] NoteProgress Note-Physician Patient: TRAE PINEDA Age: 74 [...] BID, # 120 cap(s), Refills(s) 0, Pharmacy: [facility]/pharmacy #[id number], 183, cm, 10/13/24 14:06:00 EST, Height/Length Dosing, 104.3, kg, 10/13/24 14:06:00 EST, Weight Dosing baclofen 5 mg oral tablet: 5 mg = 1 tab(s), Oral, TID, PRN Spasm, # 30 tab(s), Refills(s) 0, [id number], cm, 02/14/24 13:46:00 EDT, [...] All Problems Acute angina / SNOMED CT 005503492 / Confirmed Anemia / SNOMED CT 936524752 / Confirmed Apnea, sleep / SNOMED CT 547809977 / Confirmed Arthritis, rheumatoid / SNOMED CT 374288958 / Confirmed Carpal tunnel syndrome / SNOMED CT 61965009 / Confirmed Chronic kidney disease (CKD) / SNOMED CT 5977980615 / Confirmed CPAP (continuous positive airway pressure) dependence / SNOMED CT 3798002082 / Confirmed Diabetes / SNOMED CT 323056525 / Confirmed Enlarged prostate / SNOMED CT 386162326 / Confirmed H/O heart bypass surgery / SNOMED CT 574563291 / Confirmed High cholesterol / SNOMED CT 66000821 / Confirmed History of heart attack / SNOMED CT 1824613267 / Confirmed HTN (hypertension) / SNOMED CT 5605554699 / Confirmed Irregular heart beat / SNOMED CT 210031294 / Confirmed Obesity / ICD-9-CM 278.00 / Possible Obesity / SNOMED CT [id number] / Possible Histories Past Medical History: No active or resolved past medical history items have been selected or recorded. Procedure history: L5/S1 lumbar interlaminar epidural steroid injection ([id number]) on 01/15/2024 at 73 Years. Comments: 02/14/2024 13:35 EDT - Lupis Manzo 0% relief Transforaminal Epidural Steroid Injection ([id number]) on 08/06/2023 at 73 Years. Comments: 09/06/2023 11:11 JUAN CARLOS Griggs RN, Heather chun L5/S1 TFESI- 90% relief x 2 weeks Injection of nerve root of lumbar spine using fluoroscopic guidance ([id number]) on 12/12/2022 at 72Years. Comments: 01/11/2023 13:49 Mago Landa RN L5-S1-90% relief Bilateral L5 TFESI ([id number]) on 11/22/2021 at 71 Years. Comments: 12/29/2021 12:59 Lula Erazo RN Bilateral L5 TFESI-90-95% relief Transforaminal Epidural steroid injection-B/L L5 ([id number]) on 07/01/2020 at 70 Years. Comm (more content not included)...[facility]: Result Comment: Electronically Signed By: Gerber Caatlan Jr., DO\Date and Time Signed: 12/07/24 07:16 [id number] NoteUrology Documentation Note Trae Pineda is a [...] above. Morenita Larsen CNP Urology/Renal Transplant [facility] 11-03-2024 NoteUrology Clinic H&P Dr. Diony Ariza MD Patient: Trae Pineda Date of : 1950 CHIEF COMPLAINT: Low testosterone, BPH HISTORY OF PRESENT ILLNESS: 11/03/24 ITonja (scribe), documented on behalf of Dr. Naina [...] experience as getting the urge but, about snf to the bathroom when he begins to [...] with frequency AUA symptom score is 15 rjwvlha-bh-pyrc is 4 UDS - delayed sensation Incomplete [...] well with his urination (more content not included)...[facility]11-26-2024 NoteConsultation Note Patient: TRAE PINEDA Age: 74 [...] starting to return. He rates it a 1???07/28. He has a history of laminectomy in the lumbar spine. He is here today to discuss options to try to get more long-term relief as he is happy with how much relief this gave him but he is unhappy that it did not last halfway. 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 Some relief but not enough. He did therapyin the past that has not helped. He has done epidural steroid injections in the past. Some helped and some did not. He has taken kzlq-bol-rbdzqra medications again with some improvement not enough. Health Status Allergies: Allergic Reactions (Selected) Severity Not Documented HydrALAZINE- Palpatations. Statins- Muscle ache., Allergies (2) Active Severity Reaction statins muscle ache hydrALAZINE palpatations Current medications: (Selected) Prescriptions Prescribed baclofen 5 mg oral tablet: 5 mg = 1 tab(s), Oral, TID, PRN Spasm, # 30 tab(s), Refills(s) 0, Pharmacy: [facility]/pharmacy #[id number], 183, cm, 02/14/24 13:46:00 EDT, Height/Length Dosing, [...] History of heart attack / SNOMED CT 9772611655 / Confirmed Acute angina / SNOMED CT 785100426 / Confirmed Irregular heart beat / SNOMED CT 352078311 / Confirmed HTN (hypertension) / SNOMED CT 7654577357 / Confirmed High cholesterol / SNOMED CT 46645884 / Confirmed H/O heart bypass surgery / SNOMED CT 713782023 / Confirmed Apnea, sleep / SNOMED CT 187115013 / Confirmed CPAP (continuous positive airway pressure) dependence / SNOMED CT 8714538983 / Confirmed Enlarged prostate / SNOMED CT 022072340 / Confirmed Chronic kidney disease (CKD) / SNOMED CT 1456239996 / Confirmed Diabetes / SNOMED CT 843865088 / Confirmed Carpal tunnel syndrome / SNOMED CT 96679883 / Confirmed Anemia / SNOMED CT 747871911 / Confirmed Arthritis, rheumatoid / SNOMED CT 090377134 / Confirmed Obesity / ICD-9-CM 278.00 / Possible Obesity / SNOMED CT [id number] / Possible Objective Vital Signs 10/13/2024 13:51 [...] right straight leg raise Integumentary: Warm, Dry, [place]. Neurologic: Alert, Oriented. Psychiatric: Cooperative, Appropriate mood [...] Unfortunate, some of his (more content not included)...[facility]:Result Comment: Electronically Signed By: Margareth De La Cruz PA-C\.br\Date and Time Signed: 10/13/24 14:19 [id number] Evaluation + Plan noteExtracted from: Title:Pain Managment [...] him as well mention. LEONOR score: 38%. [facility] 10-22-2024 Evaluation + Plan noteExtracted from: [...] PM Scheduled Provider:Margareth De La Cruz PA-C Location:[facility] Appointment Type:Pain Management - Follow Up (FT) [facility] 10-22-2024 NoteOperative Report Diagnosis: m54.17, lumbosacral [...] and agrees to comply to currently prescribed/recommended therapies.[facility] Comment on above:Result Comment: Electronically Signed By: John Cannon DO.br\Date and Time Signed: 09/08/24 11:45 [id number] NoteUT Cardiology - [facility] Subjective Trae Pineda is a 74 [...] pain Primary hypertension Coronary artery disease involving paimiut coronary artery of paimiut heart Coronary arteriosclerosis of paimiut coronary artery of transplanted heart Suprapubic discomfort [...] LV filling pattern). Nor (more content not included)...[facility]09-26-2024 NoteProstate US Date/Time: 08/13/2024 2:01 PM Performed by: Diony Ariza MD Authorized by: Diony Ariza MD Procedure discussed: discussed risks, benefits and alternatives Shipping Receiving Clerk present: no Timeout: timeout called immediately prior [...] to discuss the results of the procedure, corporate travel counselor and answer any questions. All of [...] for now, per patient choice Check PVR 9/26/24 - 80 [facility]09-16-2024 NoteConsultation Note Patient: TRAE PINEDA Age: [...] he was driving back and forth to [place] for his . She ended up passing [...] states that he is now [place] to [place] to do things to help take [...] and some did not. He has taken qhjb-bse-nhksozx medications again with some improvement not enough. [...] # 120 tab(s), Refills(s) 0, Pharmacy: [facility]/pharmacy #[id number], 183, cm, 05/18/24 13:21:00 EDT, Height/Length Dosing, 107, kg, 05/18/24 13:21:00 EDT, Weight Dosing baclofen 5 mg oral tablet: 5 mg = 1 tab(s), Oral, TID, PRN Spasm, # 30 tab(s), Refills(s) 0, [id number] 183, cm, 02/14/24 13:46:00 EDT, Height/Length Dosing, 110.3, kg, 02/14/24 13:46:00 EDT, Weight Dosing gabapentin 300 mg Cap: 300 mg = 1 cap(s), Oral, Once a day (at bedtime), # 30 cap(s), Refills(s) 1,[id number] 183, cm, 12/16/23 10:37:00 EST, [...] History of heart attack / SNOMED CT 7689945287 / Confirmed Acute angina / SNOMED CT 884686772 / Confirmed Irregular heart beat / SNOMED CT 746530668 / Confirmed HTN (hypertension) / SNOMED CT 7572813735 / Confirmed High cholesterol / SNOMED CT 86323006 / Confirmed H/O heart bypass surgery / SNOMED CT 742702893 / Confirmed Apnea, sleep / SNOMED CT 016247931 / Confirmed CPAP (continuous positive airway pressure) dependence / SNOMED CT 1649033918 / Confirmed Enlarged prostate / SNOMED CT 721548576 / Confirmed Chronic kidney disease (CKD) / SNOMED CT 3508999982 / Confirmed Diabetes / SNOMED CT 288397438 / Confirmed Carpal tunnel syndrome / SNOMED CT 31738481 / Confirmed Anemia / SNOMED CT 621879145 / Confirmed Arthritis, rheumatoid / SNOMED CT 463982380 / Confirmed Obesity / ICD-9-CM 278.00 / Possible Obesity / SNOMED CT [id number] / Possible Objective Vital Signs 08/03/2024 14:37 [...] right straight leg raise Integumentary: Warm, Dry, [place]. Neurologic: Alert, Oriented. (more content not included)...[facility]Result Comment: Electronically Signed By: Margareth De La Cruz PA-C\.br\Date and Time Signed: 08/03/24 14:57 [id number] Evaluation + Plan noteExtracted from: Title:Pain Managment [...] Follow-up as above mention. LEONOR score: 53%. [facility] 09-09-2024 NoteUT Cardiology [facility] [...] pain Benign essential hypertension Coronary arteriosclerosis in paimiut artery Coronary arteriosclerosis of paimiut coronary artery of transplanted heart Suprapubic discomfort [...] obstructive pulmonary disease) ([facility]) Coronary artery disease, non-occlusive Depression Diabetes mellitus ([facility]) Erectile dysfunction Hyperlipemia Hypertension Hypogonadism in [...] Drug use: Never Allergies Allergies Allergen Reactions Rqkixym-Mdc-Kwa Reductase Inhibitors Other Hydralazine Palpitations Other reaction(s): [...] , Rfl: gabapentin (N (more content not included)...[facility] 05-19-2024 Note Attestation signed by Diony Ariza [...] with frequency AUA symptom score is 15 gksqozb-cn-zfgj is 4 Incomplete bladder emptying After urinating, [...] with frequency AUA symptom score is 15 jwocqsi-gh-ahak is 4 Incomplete bladder emptying After urinating, patient reports that he often feels as if he is not emptying completely. Hypogonadism Testosterone levels 518 on 03/04/24 444 on 11/26/23 374 on 08/30/23 Patient does report a history of chronic back pain (more content not included)...[facility]07-01-2024 Evaluation + Plan note Extracted from: Title:Pain [...] PM Scheduled Provider:Margareth De La Cruz PA-C Location:[facility] Appointment Type:Pain Management - Follow Up (FT) [facility]07-01-2024 NoteConsultation Note Patient: TRAE PINEDA Age: [...] BID, # 120 tab(s), Refills(s) 0, [id number] 183, cm, 05/18/24 13:21:00 EDT, Height/Length Dosing, 107, kg, 05/18/24 13:21:00 EDT, Weight Dosing baclofen 5 mg oral tablet: 5 mg = 1 tab(s), Oral, TID, PRN Spasm, # 30 tab(s), Refills(s) 0, [id number], 183, cm, 02/14/24 13:46:00 EDT, Height/Length Dosing, 110.3, kg, 02/14/24 13:46:00 EDT, Weight Dosing gabapentin 300 mg Cap: 300 mg = 1 cap(s), Oral, Once a day (at bedtime), # 30 cap(s), Refills(s) 1,[id number], 183, cm, 12/16/23 10:37:00 EST, [...] History of heart attack / SNOMED CT 3690537671 / Confirmed Acute angina / SNOMED CT 424546093 / Confirmed Irregular heart beat / SNOMED CT 448965549 / Confirmed HTN (hypertension) / SNOMED CT 8567398066 / Confirmed High cholesterol / SNOMED CT 57062734 / Confirmed H/O heart bypass surgery / SNOMED CT 370107521 / Confirmed Apnea, sleep / SNOMED CT 507987866 / Confirmed CPAP (continuous positive airway pressure) dependence / SNOMED CT 6433180356 / Confirmed Enlarged prostate / SNOMED CT 106647347 / Confirmed Chronic kidney disease (CKD) / SNOMED CT 2402523113 / Confirmed Diabetes / SNOMED CT 318484469 / Confirmed Carpal tunnel syndrome / SNOMED CT 75449300 / Confirmed Anemia / SNOMED CT 172744879 / Confirmed Arthritis, rheumatoid / SNOMED CT 122024071 / Confirmed Obesity / ICD-9-CM 278.00 / Possible Obesity / SNOMED CT [id number] / Possible Objective Vital Signs 05/18/2024 13:07 [...] right straight leg raise Integumentary: Warm, Dry, [place]. Neurologic: Alert, Oriented. Psychiatric: Cooperative, Appropriate mood [...] activities affects his ed (more content not included)...[facility]:Result Comment: Electronically Signed By: Margareth De La Cruz PA-C\.br\Date and Time Signed: 05/18/24 13:44 [id number] NoteDiagnosis: Benign prostatic hyperplasia with incomplete bladder [...] flow void Suggestive of outlet obstruction Incomplete voiding.[facility]06-24-2024 NoteSubjective Patient ID: Trae Pineda is [...] Dx: Urge Urinary Incontinence, post-void dribbling Attending: Quill Layer: Charity Procedure: UroFLow/CMG/EMG/PVR Anesthesia: None Indications: Urge [...] 36 hour(s)). No follow-ups on file. Morenita Laresn CNP Urology/Renal Transplant [facility] 03-27-2024 Evaluation + Plan noteExtracted from: [...] PM Scheduled Provider:Margareth De La Cruz PA-C Location:[facility] Appointment Type:Pain Management - Follow Up (FT) [facility]04-30-2024 NoteUrology Clinic H&P Dr. Diony Ariza [...] with frequency AUA symptom score is 15 ypacfft-bj-tpol is 4 Incomplete bladder emptying After urinating, [...] came back benign with (more content not included)...[facility]03-29-2024 Evaluation + Plan noteExtracted from: Title:Pain [...] Scheduled Provider:Margareth De La Cruz PA-C Location:.[facility] Appointment Type:Pain Management - Follow Up (FT) [facility]2024 NoteUT Cardiology - [facility] Subjective Trae Pineda is a 73 y.o. year old male patient being seen for 6 mo follow up CAD, hypertension, hyperlipidemia, and carotid artery stenosis. Had carotid US at [facility] a few weeks ago. Last [...] pain Benign essential hypertension Coronary arteriosclerosis in paimiut artery Coronary arteriosclerosis of paimiut coronary artery of transplanted heart Suprapubic discomfort [...] swelling. His physical activ (more content not included)...[facility]02-28-2024 [id number] [facility] Hospital02-28-2024 NoteDiagnosis: M54.16, lumbar radiculopathy Procedure: L5/S1 [...] the epidural space was confirmed using the oero-cw-qfevvdwucw technique and 2 cc of air. Injection [...] procedure, and agrees to continue currently prescribed/recommended therapies.[facility] Comment on above:Result Comment: Electronically Signed By: John Cannon DO\.br\Date and Time Signed: 01/15/24 14:23 [id number] Evaluation + Plan note Extracted from: Title:L5/S1 [...] the epidural space was confirmed using the snmw-vg-okawdthmri technique and 2 cc of air. Injection [...] Scheduled Provider:Margareth De La Cruz PA-C Location:.[facility] Appointment Type:Pain Management - Follow Up (FT) [facility]01-29-2024 Evaluation + Plan noteExtracted from: Title:Pain [...] will follow-up as above-mentioned LEONOR score: 48% [facility]01-02-2024 Evaluation note* Encounter Date Diagnosis Assessment Notes Treatment Notes Treatment Clinical Notes Nov, Pulmonary nodule (ICD-10 - R91.1) CT: RML 4mm nodule - 02/2022, CT: RML 7mm nodule - 02/2023 CT: stable - 08/2023Nov, Right carotid bruit (ICD-10 - R09.89) Carotid US: 50-69% stenosis - 2019, Carotid US: < 50% ICA w/ 75% right carotid bulb - 08/2021 [facility] Other 12-28-2023 Evaluation note* Encounter Date Diagnosis Assessment Notes Treatment Notes Treatment Clinical Notes Oct, 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 (ICD-10 - E11.3291) [facility] Other 12-26-2023 Evaluation note* Encounter Date Diagnosis [...] use, the patient reduces the risk for ID, CVA, HTN, cardiac dysrhythmias and sudden cardiac [...] index [BMI] 32.0-32.9, adult (ICD-10 - Z68.32) [facility] Other 12-22-2023 Evaluation + Plan noteExtracted from: [...] AM Scheduled Provider:Margareth De La Cruz PA-C Location:FT.[facility] Appointment Type:Pain Management - Follow Up (FT) [facility]10-20-2023 Evaluation + Plan noteExtracted from: Title:Pain [...] AM Scheduled Provider:Margareth De La Cruz PA-C Location:FT.[facility] Appointment Type:Pain Management - Follow Up (FT) [facility]10-18-2023 Evaluation note* Encounter Date Diagnosis Assessment Notes Treatment Notes Treatment Clinical Notes Aug, Pulmonary nodule (ICD-10 - R91.1) CT: RML 4mm nodule - 02/2022, CT: RML 7mm nodule - 02/2023 CT: stable - 08/2023 [facility] Other 10-04-2023 Evaluation note* Encounter Date Diagnosis Assessment Notes Treatment Notes Treatment Clinical Notes Aug, Pulmonary nodule (ICD-10 - R91.1) [facility] Other 08-15-2023 Evaluation + Plan noteExtracted from: [...] clinic sooner if necessary. LEONOR score: 44% [facility]05-02-2023 Evaluation note* Encounter Date Diagnosis Assessment Notes Treatment Notes Treatment Clinical Notes March, COVID-19 (ICD-10 - U07.1) Instructed to use Robitussin or Mucinex for cough, saline or Flonase NS for congestion, Tylenol for pain and fever. March, Chronic bronchitis, mucopurulent (ICD-10 - J41.1) Mucinex DM as needed. Push fluids [facility] Other 04-20-2023 Evaluation note* Encounter Date Diagnosis Assessment Notes Treatment Notes Treatment Clinical Notes Feb, Pulmonary nodule (ICD-10 - R91.1) CT: RML 4mm nodule - 02/2022 CT: RML 7mm nodule - 02/2023 [facility] Other 04-11-2023 Evaluation note* Encounter Date Diagnosis Assessment Notes Treatment Notes Treatment Clinical Notes Feb, Pulmonary nodule (ICD-10 - R91.1) [facility] Other 02-24-2023 Evaluation + Plan noteExtracted from: [...] require a repeat injection. LEONOR score: 19 [facility]02-21-2023 Evaluation note* Encounter Date Diagnosis Assessment [...] dosing will result in less fluctuations Dec, group home (current) use of insulin (ICD-10 - Z79.4) [...] 02/2022 Serial LDCT for lung cancer detection [facility] Other Evaluation + Plan note No data available for this section [facility] note Future Appointments Appointment Date:01/11/2023 01:45:00 PM Scheduled Provider:Margareth De La Cruz PA-C Location:FT.[facility] Appointment Type:Pain Management - Follow Up (FT) [facility] note Future Appointments Appointment Date:09/06/2023 11:00:00 AM Scheduled Provider:Margareth De La Cruz PA-C Location:[facility] [place] Appointment Type:Pain Management - Follow Up (FT) [facility] note Future Appointments Appointment Date:11/09/2024 08:00:00 AM Scheduled Provider: Location:[facility] Appointment Type:Surgery FT Appointment Date:11/17/2024 10:45:00 AM Scheduled Provider:Margareth De La Cruz PA-C Location:[facility] [place] Appointment Type:Pain Management - Follow Up (FT) [facility] Evaluation noteNo InformationBothwell Regional Health CenterHelloFresh Other History general Narrative - Reported* Type [...] gross Medical History 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, unspecified pedicurist nicity Medical History Arteriosclerosis of abdominal ao [...] Triple bypass Hospitalization History see sx history [facility] Other History general Narrative - Reported* Type [...] gross Medical History 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, unspecified pedicurist nicity Medical History Arteriosclerosis of abdominal ao [...] Triple bypass Hospitalization History see sx history [facility] Other Hospital Discharge instructions No data available for this section [facility] note No data available for this section [facility] Summary Purpose Family History No Family [...] and content) DATE CREATED AUTHOR 07/24/2022 [facility] DATE CREATED AUTHOR AUTHOR'S ORGANIZ ATION 03/11/2023 [facility] DATE CREATED AUTHOR AUTHOR'S ORGANIZ ATION 01/02/2025 [facility] DATE CREATED AUTHOR AUTHOR'S ORGANIZ ATION 01/14/2025 [facility] Patient Care team informatio n (unrecognized section and content) Personnel Name: CRISTOBAL MICHEL DO Address: Address: [address] [place], [facility]- Personnel Name: CRISTOBAL MICHEL DO Address: Address: [address] [facility] [place], [facility]- Personnel Name: CRISTOBAL MICHEL DO Address: Address: [address] [facility], [facility] [place] [address]- Personnel Name: CRISTOBAL MICHEL DO Address: Address: [address] [facility] [facility] [place], [facility]- Personnel Name: CRISTOBAL MICHEL DO Address: Address: [address] [facility] [place], [facility]- Personnel Name: CIRSTOBAL MICHEL DO Address: Address: [address] [facility] [facility] [place], [facility]- Personnel Name: CRISTOBAL MIHCEL DO Address: Address: [address] [facility] [place], [facility]- Personnel Name: CRISTOBAL MICHEL DO Address: Address: [address] [facility] [place], [facility]- Personnel Name: CRISTOBAL MICHEL DO Address: Address: [address] [facility] [place] [address]- Personnel Name: CRISTOBAL MICHEL DO Address: Address: [address] [facility] [place], [facility]- Personnel Name: CRISTOBAL MICHEL DO Address: Address: [address] [facility] [place] [address]- Personnel Name: CRISTOBAL MICHEL DO Address: Address: [address] [facility] [place] [address]- Personnel Name: CRISTOBAL MICHEL DO Address: Address: [address] [facility] [place], [facility]- Personnel Name: CRISTOBAL MICHEL DO Address: Address: [address] [facility] [place] [address]- Personnel Name: CRISTOBAL MICHEL DO Address: Address: [address] [facility] [place], [facility]- Personnel Name: CRISTOBAL MICHEL DO Address: Address: [address] [facility] [place] [address]- Personnel Name: CRISTOBAL MICHEL DO Address: Address: [address] [facility] [place], [facility]- Personnel Name: CRISTOBAL MICHEL DO Address: Address: [address] [place] [address]- Personnel Name: CRISTOBAL MICHEL DO Address: Address: [address] [place] [address]- Personnel Name: CRISTOBAL MICHEL DO Address: Address: [address] [place] [address]- REASON FOR VISIT (unrecogniz ed section and [...] BE BASED ON THE PRIMARY CLINICAL RECORDS. [employer] [facility]. provides no warranty or guarantee of the accuracy or completeness of information in this document.
[2025-01-14 08:40] LABS: Anion Gap 13.1; BUN Creatinine Ratio 20.9; Calcium 9.1 mg/dL (8.5-10.1); Carbon Dioxide 25.6 mmol/L (21.0-32.0); Chloride 106 mmol/L (98-107); Estimated GFR (African America 50 (>=60 mL/min/1.73m^2); Estimated GFR (Non-African Ame 41 (>=60 mL/min/1.73m^2); Glucose 162 mg/dL (74-106); Potassium 4.7 mmol/L (3.5-5.1); Sodium 140 mmol/L (136-145)
== END 2025-01-14 07:21 | disposition home or self-care (01) ==
LOC: LAB 07:21
PROVIDERS: PCP Internal Medicine; Visit Provider Internal Medicine Interventional Cardiology
DX: E87.5 Hyperkalemia (principal)
CPT/HCPCS: 36415; 80048

== ENCOUNTER 2025-01-19 08:52 | Outpatient (OUT) | payer MEDICARE, SELFPAY ==
--- OUTSIDE RECORDS SUMMARY | 2025-01-19 09:15 | XMS_ITS | CCD ---
Author Organization [facility] Care Team Providers Care Testing Tech Name Role Phone LUPIS DENNIS Admitting Unavailable [...] (3 sources) black walnut pollen extract; Translations: [[id number]-RTH REDUCTASE INHIBITORS] Drug Allergy 01-27-2013 [facility] Repository (20 sources) HMG-CoA reductase inhibitor; Translations: [statins] Drug allergy muscle ache [facility] (20 sources) hydrALAZINE; Translations: [hydralazine] Drug Allergy 07-25-2022 palpatations [facility] (5 sources) pregabalin; Translations: [pregabalin] Drug Allergy 12-28-2024 [facility] Medications Current Medications Medication Drug Class(es) [...] Spasm, # 30 tab(s), Refills(s) 0, Pharmacy: [facility]/pharmacy #[id number], 183, cm, 02/14/24 13:46:00 EDT, [...] Refills(s) 0 Start Date: 05/18/20 Status: Ordered [facility] - (5 sources) [facility] - as directed Orally Active cyclobenzaprine hydrochloride 10 mg oral tablet (4 sources) Muscle Relaxant Start: 11-08-2022 take 1 tablet by mouth three times daily as needed for muscle spasms cyclobenzaprine 10 mg Tab 10 mg = 1 tab(s), Oral, TID, PRN for spasm, # 30 tab(s), Refills(s) 0, Pharmacy: [facility]/pharmacy #[id number], 182.9, cm, 11/08/22 15:17:00 EST, [...] 05/18/20 Status: Ordered FreeStyle Singh 14 Day [place] - (15 sources) FreeStyle Singh 14 Day [place] - as directed Active FreeStyle Singh 14 [...] BID, # 60 cap(s), Refills(s) 0, Pharmacy: [facility]/pharmacy #[id number], 183, cm, 02/14/24 13:46:00 EDT, Height/Length Dosing, 110.3, kg, 02/14/24 13:46:00 EDT, Weight Dosing Start Date: 02/14/24 Status: Ordered Start: 12-16-2023 take 1 capsule by [facility] once daily at bedtime gabapentin 300 mg Cap 300 mg = 1 cap(s), Oral, Once a day (at bedtime), # 30 cap(s), Refills(s) 1, Pharmacy: [facility]/pharmacy #[id number], 183, cm, 12/16/23 10:37:00 EST, Height/Length Dosing, 102.3, kg, 12/16/23 10:37:00 EST, Weight Dosing Start Date: 12/16/23 Status: Ordered Start: 11-08-2022 take 1 capsule by [facility] at bedtime gabapentin 100 mg Cap 100 mg = 1 cap(s), Oral, Bedtime, # 30 cap(s), Refills(s) 0, Pharmacy: [facility]/pharmacy #[id number], 182.9, cm, 11/08/22 15:17:00 EST, [...] Refills(s) 0 Start Date: 01/12/25 Status: Ordered [facility] (10 sources) Start: 08-03-2024 Misc Medicatio n CBD 250 Topical Cream, as needed Start Date: 08/03/24 Status: Ordered Start: 08-03-2024 [facility] CBD Gummies Start Date: 08/03/24 Status: Ordered pregabalin 25 mg oral capsule (5 sources) Start: 10-14-2024 take 1-2 capsules by mouth twice daily Lyrica 25 mg Cap See Instructions, 1-2 cap(s) Oral BID, # 120 cap(s), Refills(s) 0, Pharmacy: [facility]/pharmacy #[id number], 183, cm, 10/13/24 14:06:00 EST, Height/Length Dosing, 104.3, kg, 10/13/24 14:06:00 EST, Weight Dosing Start Date: 10/14/24 Status: Ordered Start: 08-10-2024 End: 10-09-2024 take 1-2 capsules by mouth twice daily Lyrica 25 mg Cap 1-2 cap(s), Oral, BID, X 30 day(s), # 120 tab(s), Refills(s) 1, Pharmacy: [facility]/pharmacy #[id number], 183, cm, 08/03/24 14:46:00 EDT, Height/Length Dosing, 104.5, kg, 08/03/24 14:46:00 EDT, Weight Dosing Start Date: 08/10/24 Stop Date: 10/09/24 Status: Ordered Start: 06-29-2024 take 1-2 capsules by mouth twice daily Lyrica 25 mg Cap 1-2 cap(s), Oral, BID, # 120 tab(s), Refills(s) 0, Pharmacy: [facility]/pharmacy #[id number], 183, cm, 05/18/24 13:21:00 EDT, Height/Length Dosing, 107, kg, 05/18/24 13:21:00 EDT, Weight Dosing Start Date: 06/29/24 Status: Ordered Start: 05-18-2024 take 1-2 capsules by mouth twice daily Lyrica 25 mg Cap 1-2 cap(s), Oral, BID, # 120 tab(s), Refills(s) 0, Pharmacy: [facility]/pharmacy #[id number], 183, cm, 05/18/24 13:21:00 EDT, Height/Length Dosing, 107, kg, 05/18/24 13:21:00 EDT, Weight Dosing Start Date: 05/18/24 Status: Ordered Start: 03-27-2024 take 1 capsule by [facility] twice daily pregabalin 25 mg Cap 25 mg = 1 cap(s), Oral, BID, # 60 cap(s), Refills(s) 0, Pharmacy: [facility]/pharmacy #[id number], 183, cm, 03/27/24 14:29:00 EDT, [...] day(s), # 20 tab(s), Refills(s) 0, Pharmacy: [facility]/pharmacy #[id number], 183, cm, 12/07/24 7:32:00 EST, [...] sources) Long-term current use of insulin; Translations: [terminologist (current) use of insulin] Episodic Other and [...] Onset: 09-03-2023 Episodic Other aftercare (2 sources) residential (current) use of insulin; 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 He verbalized understanding. [facility] Office Visiton 12-28-2024 Follow-up visit [id number] Trae Pineda 1950 M Date Provider Department Center 12/28/2024 Risa-MOI CAMPBELL [facility] Family History Problem Relation Age of Onset Prostate cancer Father Family Status - Relation Status Age at Father Level of Service:75368 [place] OFFICE/OUTPATIENT ESTABLISHED MOD MDM 30 MIN [facility] Main OR Intraoperative Recor don 12-07-2024 Main OR Intraoperative Record Main OR Intraoperative Record IntraOp Document Type FTPM Summary Primary Physician: John Cannon DO Finalized Date/Time: 12/07/24 08:53:30 Pt. Name: TRAE PINEDA D.O.B./Sex: 1950 Male Med Rec #: [id number] Physician: John Cnanon DO Financial #: [id number] Pt. Type: P Room/Bed: / Admit/Disch: 12/07/24 [...] Smith Role Performed Anesthesiologist Surgeon - Primary Floorman - Primary Switch Coupler Time In 12/07/24 08:17:00 12/07/24 08:17:00 12/07/24 [...] Toni Casper RN, Julia Mathews Role Performed Graphic Design Intern Scrub - Relief Scrub - Primary Time [...] A., Williams CRNA, Paul A., Harvey RN, Lai Elkins Amy Time Out Complete 12/07/24 08:19:00 [...] and tissue Entry 1 Skin Integrity Intact, Sarepta, Warm, & Skin Abnormality No Dry Outcomes Met? Yes Last Modified By: Ricky (more content not included)... [facility] Main OR Preoperative Recordo n 12-07-2024 Main OR Preoperative Record Main OR Preoperative Record Holding Area Document Type FTPM Summary Primary Physician: John Cannon DO Finalized Date/Time: 12/07/24 08:04:53 Pt. Name: TRAE PINEDA/Sex: 1950 Male Med Rec #: [id number] Physician: John Cannon DO Financial #: [id number] Pt. Type: P Room/Bed: / Admit/Disch: 12/07/24 [...] Barb Schmidt RN 12/07/24 08:04 [facility] Operative Reporton 5 Operative Report Operative Report [...] then advanced into the appropriate space using [id number] and confirmed by fluoroscopy and contrast spread. [...] call with any questions or issues periprocedurally. [facility] Comment on above: Result Comment: Elec tronically Signed By: John Cannon DO.br\Date and Time Signed: 12/07/24 08:54 EST Documentationon 12-02-2024 Documentation [id number] Trae Pineda 1950 [facility] Department Crum Lynne 12/02/2024 MORENITA BANKS None Family History Problem Relation Age of Onset Prostate cancer Father Family Status - Relation Status Age at Father [facility] Follow-Upon 11-03-2024 Follow-Up [id number] Trae Pineda 1950 [facility] 11/03/[address] [place], [place] [address] Second [facility] Family History Problem Relation Age of Onset Prostate cancer Father Family Status - Relation Status Age at Father Level of Service:45783 [place] OFFICE/OUTPATIENT ESTABLISHED MOD MDM 30 MIN Reason for Visit and Comments: Benign Prostatic Hypertrophy [249100005] Hypogonadism [185] - Follow-up TRUS and labs [facility] Orders Onlyon 11-02-2024 Orders Only [id number] Trae Pineda 1950 [facility] Family History Problem Relation Age of Onset Prostate cancer Father Family Status - Relation Status Age at Father [facility] Orders Onlyon 10-27-2024 Orders Only [id number] Trae Pineda 1950 [facility] Department Crum Lynne 10/27/2024 435-DIONY ARIZA [facility] Second Fl Family History Problem Relation Age of Onset Prostate cancer Father Family Status - Relation Status Age at Father [facility] Main OR Preoperative Recordo n 09-08-2024 Main OR Preoperative Record Main OR Preoperative Record Holding Area Document Type FTPM Summary Primary Physician: John Cannon DO Finalized Date/Time: 09/08/24 10:57:05 Pt. Name: TRAE PINEDA Lorenzo Anderson/Sex: 1950 Male Med Rec #: [id number] Physician: John Cannon DO Financial #: [id number] Pt. Type: P Room/Bed: / Admit/Disch: 09/08/24 [...] Brayan PEREZ, Barb Toledo 09/08/24 10:57 [facility] Office Visiton 08-31-2024 Follow-up visit [id number] Igor Pinedary E 1950 Date Provider Department Center 08/31/2024 Risa-MOI CAMPBELL [facility] Family History Problem Relation Age of Onset Prostate cancer Father Family Status - Relation Status Age at Father Level of Service:50198 [place] OFFICE/OUTPATIENT ESTABLISHED MOD MDM 30 MIN [facility] Orders Onlyon 08-13-2024 Orders Only [id number] Igor Pinedary E 1950 M Date Provider Department Crum Lynne 08/13/2024 Carri[facility]KRISTEL [facility] Problem Relation Age of Onset Prostate cancer Father Family Status - Relation Status Age at Father [facility] Procedure Visiton 08-13-2024 Procedure Visit [id number] EdwinTrae E 1950 Date Provider Department Crum Lynne 08/13/2024 Colton-DIONY ARI[facility] Family History Problem Relation Age of Onset Prostate cancer Father Family Status - Relation Status Age at Father Level of Service:38649 CA OFFICE/OUTPT VISIT,PROCEDURE ONLY (25) Reason for Visit and Comments: Follow-up [388494] - Trus [facility] Orders Onlyon 07-29-2024 Orders Only [id number] Igor Pinedary E 1950 M Date Provider Department Crum [place] 07/29/2024 RACHNA BARRON [facility] No family history on file [facility] Office Visiton 07-27-2024 Follow-up visit [id number] Igor Pinedary E 1950 M Date Provider Department Center 07/27/2024 [id number]-ZFCUWBENRRIQUE OAKLEY CARD [facility] No family history on file Level of Service:56131 [place] OFFICE/OUTPATIENT ESTABLISHED MOD MDM 30 MIN Reason for Visit and Comments: Hyperlipidemia [182] Hypertension [788834] - Pt is here for low blood pressure. [facility] Follow-Upon 05-19-2024 Follow-Up [id number] EdwinTrae lima 1950 M Date Provider Department Center 05/19/2024 435-DIONY ARIZA [facility] Second Fl No family history on file Level of Service:94322 CA OFFICE/OUTPATIENT ESTABLISHED MOD MDM 30 MIN [facility] Refillon 05-14-2024 Refill [id number] Trae Pineda 1950 M Date Provider Department Center 05/14/2024 Danni-MARCIAL SANTOS [facility] Second Fl No family history on file Reason for Visit and Comments: Med Refill [[id number]] [facility] Procedure Visiton 05-11-2024 Procedure Visit [id number] Trae Pineda 1950 M Date Provider Department Center 05/11/2024 435-DIONY ARIZA [facility] No family history on file Level of Service:88264 [place] OFFICE/OUTPT VISIT,PROCEDURE ONLY (26) Reason for Visit and Comments: Follow-up [178332] - Uds documentation [facility] Procedure Visit [id number] Trae Pineda 1950 M Date Provider Department Center 05/11/2024 53736-ZCMEZKOMORENITA LARSEN [facility] No family history on file Level of Service:20709 [place] OFFICE/OUTPATIENT ESTABLISHED LOW MDM 20 MIN Reason for Visit and Comments: Follow-up [084843] - uds [facility] Consent for Treatmenton 03-18 Consent for Treatment [id number] #1.00TIFF [facility] Consultation Noteon 03-27-20 Consultation Note Patient: TRAE [...] Spasm, # 30 tab(s), Refills(s) 0, Pharmacy: [facility]/pharmacy #[id number], 183, cm, 02/14/24 13:46:00 EDT, Height/Length Dosing, 110.3, kg, 02/14/24 13:46:00 EDT, Weight Dosing gabapentin 300 mg Cap: 300 mg = 1 cap(s), Oral, Once a day (at bedtime), # 30 cap(s), Refills(s) 1, Pharmacy: [facility]/pharmacy #[id number], 183, cm, 12/16/23 10:37:00 EST, Height/Length Dosing, 102.3, kg, 12/16/23 10:37:00 EST, Weight Dosing pregabalin 25 mg Cap: 25 mg = 1 cap(s), Oral, BID, # 60 cap(s), Refills(s) 0, Pharmacy: [facility]/pharmacy #[id number], 183, cm, 03/27/24 14:29:00 EDT, [...] History of heart attack / SNOMED CT 5448356584 / Confirmed Acute angina / SNOMED CT 933594959 / Confirmed Irregular heart beat / SNOMED CT 724000524 / Confirmed HTN (hypertension) / SNOMED CT 2144342104 / Confirmed High cholesterol / SNOMED CT 23149099 / Confirmed H/O heart bypass surgery / SNOMED CT 594701501 / Confirmed Apnea, sleep / SNOMED CT 636403808 / Confirmed CPAP (continuous positive airway pressure) dependence / SNOMED CT 2770052668 / Confirmed Enlarged prostate / SNOMED CT 584129209 / Confirmed Chronic kidney disease (CKD) / SNOMED CT 0571776327 / Confirmed Diabetes / SNOMED CT 248879395 / Confirmed Carpal tunnel syndrome / SNOMED CT 78263008 / Confirmed Anemia / SNOMED CT 698518734 / Confirmed Arthritis, rheumatoid / SNOMED CT 782687121 / Confirmed Obesity / ICD-9-CM 278.00 / Possible Obesity / SNOMED CT [id number] / Possible Objective Vital Signs 03/27/2024 14:19 [...] right straight leg raise Integumentary: Warm, Dry, Sarepta. Neurologic: Alert, Oriented. Psychiatric: Cooperative, Appropriate mood [...] did not (more content not included)... [facility] Comment on above: Result Comment: Elec tronically Signed By: Jono AGOSTO, Margareth\.br\Date and Time Signed: 03/27/24 14:47 EDT Office/Clinic Note-Physician on 03-27-2024 Office/Clinic Note-Physician [id number] 1#1.00TIFF [facility] Outside Records Officeon Outside Records Office [id number] 8#1.00TIFF [facility] Patient Correspondenceon Patient Correspondence [id number] 2#1.00TIFF [facility] Patient History Officeon Patient History Office [id number] 9#1.00TIFF [facility] Follow-Upon 03-17-2024 Follow-Up [id number] Trae Pineda 1950 M Date Provider Department Center 03/17/2024 Colton-DIONY ARIZA [facility] Second Fl No family history on file Level of Service:71260 [place] OFFICE/OUTPATIENT ESTABLISHED MOD MDM 30 MIN Reason for Visit and Comments: Benign Prostatic Hypertrophy [096635439] Hypogonadism [185] - 3 mo follow-up with labs [facility] Orders Onlyon 03-12-2024 Orders Only [id number] Trae Pineda 1950 M Date Provider Department Center 03/12/2024 Colton-DIONY ARIZA [facility] Second Fl No family history on file [facility] Consent for Treatmenton 01-17 Consent for Treatment [id number] 5#1.00TIFF [facility] Consultation Noteon 02-14-20 Consultation Note Patient: [...] BID, # 60 cap(s), Refills(s) 0, [id number] 183, cm, 02/14/24 13:46:00 EDT, Height/Length Dosing, 110.3, kg, 02/14/24 13:46:00 EDT, Weight Dosing gabapentin 300 mg Cap: 300 mg = 1 cap(s), Oral, Once a day (at bedtime), # 30 cap(s), Refills(s) 1, [facility] 183, cm, 12/16/23 10:37:00 EST, [...] History of heart attack / SNOMED CT 8330544086 / Confirmed Acute angina / SNOMED CT 271064558 / Confirmed Irregular heart beat / SNOMED CT 476544172 / Confirmed HTN (hypertension) / SNOMED CT 3894397444 / Confirmed High cholesterol / SNOMED CT 79914642 / Confirmed H/O heart bypass surgery / SNOMED CT 835905822 / Confirmed Apnea, sleep / SNOMED CT 458621884 / Confirmed CPAP (continuous positive airway pressure) dependence / SNOMED CT 8169225703 / Confirmed Enlarged prostate / SNOMED CT 822499559 / Confirmed Chronic kidney disease (CKD) / SNOMED CT 9560999404 / Confirmed Diabetes / SNOMED CT 624658821 / Confirmed Carpal tunnel syndrome / SNOMED CT 30732782 / Confirmed Anemia / SNOMED CT 289471787 / Confirmed Arthritis, rheumatoid / SNOMED CT 939890738 / Confirmed Obesity / ICD-9-CM 278.00 / Possible Obesity / SNOMED CT [id number] / Possible Objective Vital Signs 02/14/2024 13:32 [...] pain with facet loading Integumentary: Warm, Dry, Sarepta. Neurologic: Alert, Oriented. Psychiatric: Cooperative, Appropriate mood [...] relief he (more content not included)... [facility] Comment on above: Result Comment: Elec tronically Signed By: Jono AGOSTO, Margareth\.br\Date and Time Signed: 02/14/24 14:08 EDT Office/Clinic Note-Physician on 02-14-2024 Office/Clinic Note-Physician [id number] 3#1.00TIFF [facility] Patient Correspondenceon Patient Correspondence [id number] 4#1.00TIFF [facility] Patient Correspondence [id number] 4#1.00TIFF [facility] Patient History Officeon Patient History Office [id number] 3#1.00TIFF [facility] Refillon 01-26-2024 Refill [id number] Trae Pineda 1950 M Date Provider Department Center 01/26/2024 Danni-MARCIAL SANTOS [facility] Second Fl No family history on file Reason for Visit and Comments: Med Refill [682660] [facility] Office Visiton 01-20-2024 Follow-up visit [id number] Trae Pineda 1950 M Date Provider Department Center 01/20/2024 Risa-MOI CAMPBELL [facility] No family history on file Level of Service:30084 [place] OFFICE/OUTPATIENT ESTABLISHED MOD MDM 30 MIN [facility] Consent for Procedure/Surger yon 01-15-2024 Consent for Procedure/Surgery [id number] 45#1.00TIFF [facility] Consent for Treatmenton 12-20 Consent for Treatment [id number] #1.00TIFF [facility] Discharge Instructionson Discharge Instructions [id number] 08#1.00TIFF [facility] IntraOperative Documentson 0 01-15-2024 IntraOperative Documents [id number] 74#1.00TIFF [facility] Main OR Intraoperative Recor don 01-15-2024 Main OR Intraoperative Record IntraOp Document Type FTPM Summary Primary Physician: John Cannon DO Finalized Date/Time: 01/15/24 14:25:24 Pt. Name: TRAE PINEDA /Sex: 1950 Male Med Rec #: [id number] Physician: John Cannon DO Financial #: [id number] Pt. Type: P Room/Bed: / Admit/Disch: 01/15/24 [...] Lula Schuler Role Performed Surgeon - Primary Floorman - Primary Scrub - Primary Time In 01/15/24 14:15:00 01/15/24 14:15:00 01/15/24 14:15:00 Time Out 01/15/24 14:24:00 01/15/24 14:24:00 01/15/24 14:24:00 Procedure LUMBAR EPIDURAL STEROID LUMBAR EPIDURAL STEROID LUMBAR EPIDURAL STEROID INJECTION(.) INJECTION(.) INJECTION(.) Comments Last Modified By: Matthew PEREZ, Deysi Castro RN, Deysi Clemente RN 01/15/24 14:23:16 01/15/24 14:23:16 01/15/24 14:23:16 Entry 4 Case Attendee Leanne Fitzgerald Role Performed Graphic Design Intern Time In 01/15/24 14:15:00 Time Out 01/15/24 [...] and tissue Entry 1 Skin Integrity Intact, Sarepta, Warm, and Skin Abnormality No Dry Outcomes [...] Last Modif (more content not included)... [facility] Main OR Preoperative Recordo n 01-15-2024 Main OR Preoperative Record Holding Area Document Type FTPM Summary Primary Physician: John Cannon DO Finalized Date/Time: 01/15/24 13:38:25 Pt. Name: TRAE PINEDA Lorenzo Anderson/Sex: 1950 Male Med Rec #: [id number] Physician: John Cannon DO Financial #: [id number] Pt. Type: P Room/Bed: / Admit/Disch: 01/15/24 [...] Barb Schmidt RN 01/15/24 13:38 [facility] CT CHEST WO CONon 03-07-2023 CT CHEST [...] SLOAN SOSA Date: 2023-03-07 10:24 Normal [facility] TESTOSTERONE, FREE,DIRECT, T OTALon 01-24-2023 Free Testosterone(Direct) 10.1 pg/mL Normal 6.6-18.1 [facility] Comment on above: Result Comment: Perf ormed at: BN Performed By: #### L JENNYFER #### [facility] [address] [place] [address] Dr. Zan Escalante Testosterone [Mass/Vol] 622 ng/dL Normal 264-916 [facility] Comment on above: Result Comment: Adul t male reference interval is based on a population of healthy nonobese males (BMI <30) between 19 and 39 years old. Nate et.al. JCEM 2017,102;5812-5349. PMID: [id number]. Performed at: CB Performed By: #### L JENNYFER #### [facility] [address] [place] [address] Dr. Zan Escalante ESTRADIOLon 01-19-2023 Estradiol 21.4 pg/mL Normal 7.6-42.6 [facility] Comment on above: Result Comment: Anastacio chong ECLIA methodology Performed By: #### L JENNYFER #### [facility] [address] [place] [address] Dr. Zan Escalante FSHon 01-19-2023 FSH 0.3 mIU/mL Critically low 1.5-12.4 [facility] Comment on above: Performed By: #### L BCFS #### [facility] [address] [place] [address] Dr. Zan Escalante LUTEINIZING HORMONE (LH)on 0 01-19-2023 LH <0.3 Critically low 1.7-8.6 [facility] Comment on above: Performed By: #### L JENNYFER #### [facility] [address] [place] [address] Dr. Zan Escalante PROLACTINon 01-19-2023 Prolactin 6.5 ng/mL Normal 4.0-15.2 [facility] Comment on above: Performed By: #### L ANTHONY #### [facility] [address] [place] [address] Dr. Zan Escalante SEX HORMONE-BINDING GLOBULIN on 01-19-2023 Sex Horm Binding Glob, Serum 28.3 nmol/L Normal 19.3-76.4 [facility] Comment on above: Performed By: #### S EXHBG #### [facility] [address] [place] [address] Dr. Zan Escalante CHEMISTRYOrdered By: Lab ROP User on 12-12-2022 Glucose [Mass/Vol] 157 mg/dL High 55 - 99 mg/dL FTM C POC Subsection POC Device SN [id number] Invalid Interpretation Code [facility] [place] POC Subsection POC User ID [id number] Invalid Interpretation Code [facility] [place] POC Subsection POC Username THOMAS FARR Invalid Interpretation Code [facility] [place] POC Subsection TESTOSTERONE, FREE,DIRECT, T OTALon 09-01-2022 Free Testosterone(Direct) 4.2 pg/mL Critically low 6.6-18.1 [facility] Comment on above: Result Comment: Perf ormed at: BN Performed By: #### T ESTFRD #### [facility] [address] [place] [address] Dr. Zan Escalante Testosterone [Mass/Vol] 171 ng/dL Critically low 264-916 [facility] Comment on above: Result Comment: Adul t male reference interval is based on a population of healthy nonobese males (BMI <30) between 19 and 39 years old. Nate et.al. JCEM 2017,102;7780-4765. PMID: [id number]. Performed at: CB Performed By: #### T ESTFRD #### [facility] [address] [place] [address] Dr. Zan Escalante ESTRADIOLon 08-30-2022 Estradiol 28.9 pg/mL Normal 7.6-42.6 [facility] Comment on above: Result Comment: Anastacio chong ECLIA methodology Performed By: #### L ANTHONY #### [facility] [facility] [address] [place] [address] Dr. Zan Escalante FSHon 08-30-2022 FSH 3.0 mIU/mL Normal 1.5-12.4 [facility] Comment on above: Performed By: #### L BCFSH #### [facility] [address] [address] [address] Zan Escalante LUTEINIZING HORMONE (LH)on 1 LH 5.7 mIU/mL Normal 1.7-8.6 [facility] Comment on above: Performed By: #### L BCLH #### [facility] [address] [address] [address] Zan Escalante PROLACTINon 08-30-2022 Prolactin 8.6 ng/mL Normal 4.0-15.2 [facility] Comment on above: Performed By: #### L BCLH #### [facility] [address] [place] [address] Dr. Zan Escalante SEX HORMONE-BINDING GLOBULIN on 08-30-2022 Sex Horm Binding Glob, Serum 22.7 nmol/L Normal 19.3-76.4 [facility] Comment on above: Performed By: #### S EXHBG #### [facility] [address] [address] [address] Zan Escalante ECHOCARDIO M/2D COMPLETEon 0 07-31-2022 ECHOCARDIO M/2D COMPLETE Patient: TRAE PINEDA Exam Date: 07/31/2022 : 1950 Gender:M Ordering : DR MOI CAMPBELL M.D. Admission #: [id number] Family : Order #: [id number] CLICK HERE TO VIEW EXAM ECHOCARDIOGRAM REPORT [...] Campbell M.D. on 07/31/2022 at 18:09 Normal [facility] *URINE CATH CULTUREon 2021 *URINE CATH [...] Susceptible VANCOMYCIN (VA) 1 Susceptible Normal [facility] Comment on above: Order Comment: 1. Ur ine Performed By: #### 3 [id number] #### [facility] [address] Operative Reporton 2 Operative Report MR#: [id number] [facility] Pt. Name: Trae Pineda Room #: 0C Discharge Date: Birthdate: 1950 OPERATIVE REPORT DATE OF SURGERY: 07/02/2022 SURGEON: Diony Ariza MD DISTRICT RANGER: Kolby ARMANDO PGY3 PREOPERATIVE DIAGNOSIS: Benign prostatic [...] the room agreed. A well lubricated rigid 22-Beninese cystoscopic sheath with a 30-degree lens was [...] Jarrett MD Date Trans: 07/02/2022 03:30 P/ [id number] cc: Cristobal Michel D.O. [address] [place] [address] [facility] [id number] Normal [facility] POC GLUCOSE LABon 07-02-2022 Glucose [Mass/Vol] 130 mg/dL High 70-100 [facility] Comment on above: Performed By: #### 8 [id number] #### [facility] [address] [place] [address], [facility] MICROALBUMIN URINEon 022 Albumin, Urine 42.2 ug/mL Normal Not Estab. [facility] Comment on above: Performed By: #### L [facility] #### [facility] [address] [address] [address] Zan Escalante CBC AUTO DIFFon 06-29-2022 BASO # 0.1 103/ul Normal 0.0-0.1 [facility] Comment on above: Performed By: #### C BC #### [facility] [address] [address] [address] Zan Escalante Basophils/100 WBC (Bld) 1.1 % Normal 0.2-2.0 [facility] Comment on above: Performed By: #### C BC #### [facility] [address] [address] [address] Zan Escalante EO # 0.6 103/ul Normal 0.0-0.7 [facility] Comment on above: Performed By: #### C BC #### [facility] [address] [place] [address] Dr. Zan Escalante Eosinophils/100 WBC (Bld) 7.0 % Normal 0.9-7.0 [facility] Comment on above: Performed By: #### C BC #### [facility] [address] [place] [address] Dr. Zan Escalante Erythrocyte distribution width (RBC) [Ratio] 13.8 % Normal 11.0-15.0 [facility] Comment on above: Performed By: #### C BC #### [facility] [address] [place] [address] Dr. Zan Escalante Hematocrit (Bld) [Volume fraction] 40.9 % Critically low 42.0-54.0 [facility] Comment on above: Performed By: #### C BC #### [facility] [address] [place] [address] Dr. Zan Escalante Hemoglobin (Bld) [Mass/Vol] 13.1 g/dL Critically low 14.0-18.0 [facility] Comment on above: Performed By: #### C BC #### [facility] [address] [place] [address] Dr. Zan Escalante IG # 0.04 10e3/ul Critically high 0.00-0.03 [facility] Comment on above: Performed By: #### C BC #### [facility] [address] [place] [address] Dr. Zan Escalante IG % 0.5 % Normal 0.0-0.5 [facility] Comment on above: Performed By: #### C BC #### [facility] [address] [place] [address] Dr. Zan Escalante LYMPH # 3.0 103/ul Normal 1.2-3.8 [facility] Comment on above: Performed By: #### C BC #### [facility] [address] [place] [address] Dr. Zan Escalante Lymphocytes/100 WBC (Bld) 33.4 % Normal 20.5-60.0 [facility] Comment on above: Performed By: #### C BC #### [facility] [address] [place] [address] Dr. Zan Escalante MANUAL DIFF REQ NO Normal [facility] Comment on above: Performed By: #### C BC #### [facility] [address] [place] [address] Dr. Zan Escalante MCH (RBC) [Entitic mass] 29.6 pg Normal 25.9-34.0 [facility] Comment on above: Performed By: #### C BC #### [facility] [address] [place] [address] Dr. Zan Escalante MCHC (RBC) [Mass/Vol] 32.0 g/dL Normal 29.9-35.2 [facility] Comment on above: Performed By: #### C BC #### [facility] [address] [place] [address] Dr. Zan Escalante MCV (RBC) [Entitic vol] 92.3 fL Normal 80.0-94.0 [facility] Comment on above: Performed By: #### C BC #### [facility] [address] [place] [address] Dr. Zan Escalante MONO # 0.8 103/ul Normal 0.3-0.8 [facility] Comment on above: Performed By: #### C BC #### [facility] [address] [place] [address] Dr. Zan Escalante Monocytes/100 WBC (Bld) 9.4 % Normal 1.7-12.0 [facility] Comment on above: Performed By: #### C BC #### [facility] [address] [place] [address] Dr. Zan Escalante NEUT # 4.3 103/ul Normal 1.4-6.5 [facility] Comment on above: Performed By: #### C BC #### [facility] [address] [place] [address] Dr. Zan Escalante Neutrophils/100 WBC (Bld) 48.6 % Normal 43.0-75.0 [facility] Comment on above: Performed By: #### C BC #### [facility] [address] [place] [address] Dr. Zan Escalante Platelet mean volume (Bld) [Entitic vol] 11.2 fL Normal 9.5-13.5 [facility] Comment on above: Performed By: #### C BC #### [facility] [address] [place] [address] Dr. Zan Escalante PLT 185 103/ul Normal 150-450 [facility] Comment on above: Performed By: #### C BC #### [facility] [address] [place] [address] Dr. Zan Escalante RBC 4.43 106/ul Critically low 4.70-6.10 [facility] Comment on above: Performed By: #### C BC #### [facility] [address] [place] [address] Dr. Zan Escalante WBC 8.9 103/ul Normal 4.0-11.0 [facility] Comment on above: Performed By: #### C BC #### [facility] [address] [place] [address] Dr. Zan Escalante Covid-19 PCR ([facility])on 06-18 SARS-CoV-2 (COVID-19) RNA KRISTEL+probe Ql (Unsp spec) Not detected Normal NOT DETECTED [facility] Comment on above: Result Comment: This test is not yet approved or cleared by the [place] FDA. When there are no FDA-approved or cleared tests available, and other criteria are met, FDA can make tests available under an emergency access mechanism called an Emergency Use Authorization (EUA). The EUA for this test is supported by the [place] of Health and Human Service's (HHS's) declaration [...] consistent with SARS-CoV-2. Performed By: #### [facility] #### [facility] [address] [place] [address] Dr. Zan Escalante GLYCOHEMOGLOBIN A1Con 2021 ADA RECOMMENDATION SEE BELOW Normal [facility] Comment on above: Result Comment: ADA RECOMMENDED LIMIT 4.0 - 6.0 ADA THERAPEUTIC TARGET < 7.0 ACTION SUGGESTED > 7.0 Performed By: #### A 1C #### [facility] [address] [place] [address] Dr. Zan Escalante Glucose [Mass/Vol] 143 mg/dL Normal [facility] Comment on above: Performed By: #### A 1C #### [facility] [address] [place] [address] Dr. Zan Escalante HbA1c (Bld) [Mass fraction] 6.6 % Critically high 4.5-6.2 [facility] Comment on above: Performed By: #### A 1C #### [facility] [address] [place] [address] Dr. aZn Escalante LIPID PROFILEon 06-29-2022 CHOL-HDL RATIO NORM SEE BELOW Normal [facility] Comment on above: Result Comment: 3.3 - 4.4 LOW RISK 4.4 - 7.1 AVERAGE RISK 7.1 - 11.0 MODERATE RISK >11.0 HIGH RISK Performed By: #### B MP, LIPID #### [facility] [address] [address] [address] Zan Escalante Cholesterol [Mass/Vol] 105 mg/dL Normal <=200 [facility] Comment on above: Performed By: #### B MP, LIPID #### [facility] [address] [address] [address] Zan Escalante Cholesterol in HDL [Mass/Vol] 39 mg/dL Critically low 40-60 [facility] Comment on above: Performed By: #### B MP, LIPID #### [facility] [address] [address] [address] Zan Escalante Cholesterol in LDL [Mass/Vol] 45.0 mg/dL Normal [facility] Comment on above: Performed By: #### B MP, LIPID #### [facility] [address] [place] [address] Dr. Zan Escalante Cholesterol.total/Ch olesterol in HDL [Mass ratio] 2.7 {ratio} Normal [facility] Comment on above: Performed By: #### B MP, LIPID #### [facility] [address] [place] [address] Dr. Zan Escalante HDL NORMAL > or = 60 mg/dl - LOW CARDIOVASCULAR RISK <40 mg/dl - HIGH CARDIOVASCULAR RISK Normal [facility] Comment on above: Performed By: #### B MP, LIPID #### [facility] [address] [address] [address] Zan Escalante LDL CALC NORMAL SEE BELOW Normal [facility] Comment on above: Result Comment: <100 mg/dl OPTIMAL 100 - 129 mg/dl NEAR OR ABOVE OPTIMAL 130 - 159 mg/dl BORDERLINE HIGH 160 - 189 mg/dl HIGH >190 mg/dl VERY HIGH Performed By: #### B MP, LIPID #### [facility] [address] [address] [address] Zan Escalante Triglyceride [Mass/Vol] 105 mg/dL Normal <=150 [facility] Comment on above: Performed By: #### B MP, LIPID #### [facility] [address] [address] [address] Zan Escalante VLDL CALC 21.0 mg/dL Normal [facility] Comment on above: Performed By: #### B MP, LIPID #### [facility] [address] [place] [address] Dr. Zan Escalante PROF CHEM 8 (BAS METB)on Anion gap [Moles/Vol] 12.1 mmol/L Normal [facility] Comment on above: Performed By: #### B MP, LIPID #### [facility] [address] [place] [address] Dr. Zan Escalante Calcium [Mass/Vol] 9.0 mg/dL Normal 8.5-10.1 [facility] Comment on above: Performed By: #### B MP, LIPID #### [facility] [address] [place] [address] Dr. Zan Escalante Chloride [Moles/Vol] 106 mmol/L Normal 98-107 [facility] Comment on above: Performed By: #### B MP, LIPID #### [facility] [address] [place] [address] Dr. Zan Escalante CO2 [Moles/Vol] 28.4 mmol/L Normal 21.0-32.0 [facility] Comment on above: Performed By: #### B MP, LIPID #### [facility] [address] [place] [address] Dr. Zan Escalante Creatinine [Mass/Vol] 1.39 mg/dL Critically high 0.70-1.30 [facility] Comment on above: Performed By: #### B MP, LIPID #### [facility] [address] [place] [address] Dr. Zan Escalante EGFR-AF NICARAGUAN >60 Normal >=60 [facility] Comment on above: Performed By: #### B MP, LIPID #### [facility] [address] [place] [address] Dr. Zan Escalante EGFR-NON AF NICARAGUAN 50 mL/min/1.73m2 Critically low >=60 [facility] Comment on above: Performed By: #### B MP, LIPID #### [facility] [address] [place] [address] Dr. Zan Escalante Glucose [Mass/Vol] 96 mg/dL Normal 74-106 [facility] Comment on above: Performed By: #### B MP, LIPID #### [facility] [address] [address] [address] Zan Escalante Potassium [Moles/Vol] 4.5 mmol/L Normal 3.5-5.1 [facility] Comment on above: Performed By: #### B MP, LIPID #### [facility] [address] [place] [address] Dr. Zan Escalante Sodium [Moles/Vol] 142 mmol/L Normal 136-145 [facility] Comment on above: Performed By: #### B MP, LIPID #### [facility] [address] [place] [address] Dr. Zan Escalante Urea nitrogen [Mass/Vol] 23.0 mg/dL Critically high 7.0-18.0 [facility] Comment on above: Performed By: #### B MP, LIPID #### [facility] [address] [place] [address] Dr. Zan Escalante Urea nitrogen/Creatinine [Mass ratio] 16.5 mg/mg Normal [facility] Comment on above: Performed By: #### B MP, LIPID #### [facility] [address] [place] [address] Dr. Zan Escalante ESTRADIOLon 04-17-2022 ESTRADIOL 20.7 pg/mL Low 27-52 [facility] [place] Normal [facility] Comment on above: Result Comment: Test Performed by [address] [place] [id number] - Released 04/17/2022 14:29 Result Comment: Test Performed by [address] [place] [id number] - Released 04/17/2022 14:30 TESTOSTERONE, TOTAL ILon Testosterone [Mass/Vol] 108 ng/dL Low 220-[address] [facility] [address] UROGRAMon 03-13-2022 CT [facility] [address] [place] [address] Patient Name: TRAE PINEDA : 1950 Sex: M Age: Race: White Pt. Location: [facility] Patient Status: D Ordered [...] achievable Electronically signed: Aquilino Kelly. Transcribed by: [email or web address], User Resident: Electronically Signed by: AQUILINO KELLY @ 03/15/2022 01:05 PM Normal [facility] Vital Signs Date Time Vital Sign Value Performing Clinician Facility 01-12-2025 10:31-0500 Diastolic blood pressure 63 mm[Hg] Margareth De La Cruz [facility] 01-12-2025 10:31-0500 Heart rate 58 /min Margareth De La Cruz [facility] 01-12-2025 10:31-0500 Mean blood pressure 85 mm[Hg] Margareth De La Cruz [facility] 01-12-2025 10:31-0500 Respiratory rate 14 /min Margareth De La Cruz [facility] 01-12-2025 10:31-0500 Systolic blood pressure 130 mm[Hg] Margareth De La Cruz [facility] 12-15-2024 10:15-0500 Diastolic blood pressure 61 mm[Hg] Margareth De La Cruz [facility] 12-15-2024 10:15-0500 Heart rate 67 /min Margareth De La Cruz [facility] 12-15-2024 10:15-0500 Mean blood pressure 84 mm[Hg] Margareth De La Cruz [facility] 12-15-2024 10:15-0500 Respiratory rate 14 /min Margareth De La Cruz [facility] 12-15-2024 10:15-0500 Systolic blood pressure 130 mm[Hg] Margareth De La Cruz [facility] 12-07-2024 09:02-0500 Heart rate 69 /min John Cannon [facility] 12-07-2024 09:02-0500 SaO2% (BldA) [Mass fraction] 99 % John Cannon [facility] 12-07-2024 09:02-0500 Diastolic blood pressure 50 mm[Hg] John Cannon [facility] 12-07-2024 09:02-0500 Mean blood pressure 70 mm[Hg] John Cannon [facility] 12-07-2024 09:02-0500 Systolic blood pressure 110 mm[Hg] John Cannon [facility] 12-07-2024 09:02-0500 Respiratory rate 16 /min John Cannon [facility] 12-07-2024 08:54-0500 Heart rate 67 /min John Cannon [facility] 12-07-2024 08:54-0500 SaO2% (BldA) [Mass fraction] 99 % John Cannon [facility] 12-07-2024 08:54-0500 Respiratory rate 16 /min John Cannon [facility] 12-07-2024 08:54-0500 Body temperature 97.88 [degF] John Cannon [facility] 12-07-2024 08:54-0500 Diastolic blood pressure 56 mm[Hg] John Cannon [facility] 12-07-2024 08:54-0500 Mean blood pressure 76 mm[Hg] John Cannon [facility] 12-07-2024 08:54-0500 Systolic blood pressure 118 mm[Hg] John Cannon [facility] 12-07-2024 08:48-0500 Diastolic blood pressure 80 mm[Hg] John Cannon [facility] 12-07-2024 08:48-0500 Systolic blood pressure 109 mm[Hg] John Cannon [facility] 12-07-2024 08:45-0500 Heart rate 64 /min John Cannon [facility] 12-07-2024 08:45-0500 SaO2% (BldA) [Mass fraction] 99 % John Cannon [facility] 12-07-2024 08:40-0500 Respiratory rate 15 /min John Cannon [facility] 12-07-2024 07:34-0500 gluc 140 mg/dL John Davis [facility] Comment on above: Result Comment: per pt's meter on left a 12-07-2024 07:32-0500 Body temperature 97.7 [degF] John Cannon [facility] 12-07-2024 07:32-0500 Mean blood pressure 98 mm[Hg] John Cannon [facility] 10-29-2024 09:08-0500 Diastolic blood pressure 68 mm[Hg] John Cannon [facility] 10-29-2024 09:08-0500 Heart rate 76 /min John Cannon [facility] 10-29-2024 09:08-0500 Respiratory rate 14 /min John Cannon [facility] 10-29-2024 09:08-0500 Systolic blood pressure 121 mm[Hg] John Cannon [facility] 10-13-2024 13:51-0500 Diastolic blood pressure 79 mm[Hg] Margareth De La Cruz [facility] 10-13-2024 13:51-0500 Mean blood pressure 98 mm[Hg] Margareth De La Cruz [facility] 10-13-2024 13:51-0500 Systolic blood pressure 137 mm[Hg] Margareth De La Cruz [facility] 09-08-2024 11:49-0400 Heart rate 60 /min John Cannon [facility] 09-08-2024 11:49-0400 SaO2% (BldA) [Mass fraction] 99 % John Cannon [facility] 09-08-2024 11:48-0400 Diastolic blood pressure 66 mm[Hg] John Cannon [facility] 09-08-2024 11:48-0400 Mean blood pressure 96 mm[Hg] John Cannon [facility] 09-08-2024 11:48-0400 Systolic blood pressure 156 mm[Hg] John Cannon [facility] 09-08-2024 11:48-0400 Respiratory rate 16 /min John Cannon [facility] 09-08-2024 11:38-0400 Diastolic blood pressure 84 mm[Hg] John Cannon [facility] 09-08-2024 11:38-0400 Heart rate 58 /min John Cannon [facility] 09-08-2024 11:38-0400 Respiratory rate 14 /min John Cannon [facility] 09-08-2024 11:38-0400 SaO2% (BldA) [Mass fraction] 96 % John Cannon [facility] 09-08-2024 11:38-0400 Systolic blood pressure 151 mm[Hg] John Cannon [facility] 09-08-2024 11:01-0400 gluc 134 mg/dL John Cannon [facility] Comment on above: Result Comment: per pt's meter 09-08-2024 10:58-0400 Heart rate 61 /min John Cannon [facility] 09-08-2024 10:58-0400 SaO2% (BldA) [Mass fraction] 99 % John Cannon [facility] 09-08-2024 10:57-0400 Diastolic blood pressure 78 mm[Hg] John Cannon [facility] 09-08-2024 10:57-0400 Mean blood pressure 103 mm[Hg] John Cannon [facility] 09-08-2024 10:57-0400 Systolic blood pressure 152 mm[Hg] John Davis [facility] 09-08-2024 10:57-0400 Respiratory rate 18 /min John Davis [facility] 09-08-2024 10:54-0400 Body temperature 97.7 [degF] John Davis [facility] 08-03-2024 14:37-0400 Diastolic blood pressure 65 mm[Hg] Margareth De La Cruz [facility] 08-03-2024 14:37-0400 Heart rate 62 /min Margareth Algotochip [facility] 08-03-2024 14:37-0400 Mean blood pressure 83 mm[Hg] Margareth Algotochip [facility] 08-03-2024 14:37-0400 Respiratory rate 16 /min Margareth Algotochip [facility] 08-03-2024 14:37-0400 Systolic blood pressure 118 mm[Hg] Margareth Algotochip [facility] 05-18-2024 13:07-0400 Diastolic blood pressure 71 mm[Hg] Margareth Algotochip [facility] 05-18-2024 13:07-0400 Heart rate 59 /min Margareth Algotochip [facility] 05-18-2024 13:07-0400 Mean blood pressure 99 mm[Hg] Margareth Algotochip [facility] 05-18-2024 13:07-0400 Respiratory rate 16 /min Margareth Algotochip [facility] 05-18-2024 13:07-0400 Systolic blood pressure 156 mm[Hg] Margareth Algotochip [facility] 03-27-2024 14:19-0400 Diastolic blood pressure 69 mm[Hg] Margareth Algotochip [facility] 03-27-2024 14:19-0400 Heart rate 69 /min Margareth Algotochip [facility] 03-27-2024 14:19-0400 Mean blood pressure 96 mm[Hg] Margareth Algotochip [facility] 03-27-2024 14:19-0400 Respiratory rate 15 /min Margareth Algotochip [facility] 03-27-2024 14:19-0400 Systolic blood pressure 151 mm[Hg] Margareth Algotochip [facility] 02-14-2024 13:32-0400 Diastolic blood pressure 62 mm[Hg] Margareth De La Cruz [facility] 02-14-2024 13:32-0400 Heart rate 66 /min Margareth De La Cruz [facility] 02-14-2024 13:32-0400 Mean blood pressure 87 mm[Hg] Margareth De La Cruz [facility] 02-14-2024 13:32-0400 Respiratory rate 14 /min Margareth De La Cruz [facility] 02-14-2024 13:32-0400 Systolic blood pressure 136 mm[Hg] Margareth De La Cruz [facility] 01-15-2024 14:27-0500 Heart rate 63 /min John Cannon [facility] 01-15-2024 14:27-0500 SaO2% (BldA) [Mass fraction] 100 % John Cannon [facility] 01-15-2024 14:27-0500 Respiratory rate 16 /min John Cannon [facility] 01-15-2024 14:26-0500 Diastolic blood pressure 78 mm[Hg] John Cannon [facility] 01-15-2024 14:26-0500 Mean blood pressure 116 mm[Hg] John Cannon [facility] 01-15-2024 14:26-0500 Systolic blood pressure 192 mm[Hg] John Cannon [facility] 01-15-2024 14:17-0500 Diastolic blood pressure 76 mm[Hg] John Cannon [facility] 01-15-2024 14:17-0500 Heart rate 66 /min John Cannon [facility] 01-15-2024 14:17-0500 Respiratory rate 14 /min John Cannon [facility] 01-15-2024 14:17-0500 SaO2% (BldA) [Mass fraction] 96 % Lopez Davis [facility] 01-15-2024 14:17-0500 Systolic blood pressure 143 mm[Hg] Lopez Davis [facility] 01-15-2024 13:42-0500 gluc 128 mg/dL John Cannon [facility] Comment on above: Result Comment: per pt's meter on right arm 01-15-2024 13:30-0500 Heart rate 60 /min John Davis [facility] 01-15-2024 13:30-0500 SaO2% (BldA) [Mass fraction] 99 % John Davis [facility] 01-15-2024 13:30-0500 Body temperature 97.34 [degF] John Cannon [facility] 01-15-2024 13:30-0500 Diastolic blood pressure 78 mm[Hg] John Cannon [facility] 01-15-2024 13:30-0500 Mean blood pressure 111 mm[Hg] John Cannon [facility] 01-15-2024 13:30-0500 Systolic blood pressure 175 mm[Hg] John Cannon [facility] 01-15-2024 13:29-0500 Respiratory rate 14 /min John Cannon [facility] 12-16-2023 10:23-0500 Diastolic blood pressure 66 mm[Hg] Margareth De La Cruz [facility] 12-16-2023 10:23-0500 Heart rate 70 /min Margareth De La Cruz [facility] 12-16-2023 10:23-0500 Mean blood pressure 92 mm[Hg] Margareth De La Cruz [facility] 12-16-2023 10:23-0500 Respiratory rate 14 /min Margareth De La Cruz [facility] 12-16-2023 10:23-0500 Systolic blood pressure 144 mm[Hg] Margareth De La Cruz [facility] 11-12-2023 10:00-0500 Body height 182.88 cm Cristobal Ball Other [employer] [facility] Other 11-12-2023 10:00-0500 Body mass index (BMI) [Ratio] 32.46 kg/m2 Cristobal Ball Other [employer] [facility] Other 11-12-2023 10:00-0500 Body weight 108.59 kg Cristobal Ball Other [facility] Other 11-12-2023 10:00-0500 Diastolic blood pressure 76 mm[Hg] Cristobal Ball Other [employer] Other 11-12-2023 10:00-0500 Respiratory rate 16 /min Cristobal Ball Other [employer] Other 11-12-2023 10:00-0500 Systolic blood pressure 137 mm[Hg] Cristobal Ball Other [facility] [employer] Other 11-08-2023 10:58-0500 Diastolic blood pressure 71 mm[Hg] Margareth De La Cruz [facility] 11-08-2023 10:58-0500 Heart rate 63 /min Margareth De La Cruz [facility] 11-08-2023 10:58-0500 Mean blood pressure 93 mm[Hg] Margareth De La Cruz [facility] 11-08-2023 10:58-0500 Respiratory rate 15 /min Margareth De La Cruz [facility] 11-08-2023 10:58-0500 Systolic blood pressure 136 mm[Hg] Margareth De La Cruz [facility] 09-06-2023 11:09-0400 Diastolic blood pressure 77 mm[Hg] Margareth De La rCuz [facility] 09-06-2023 11:09-0400 Heart rate 59 /min Margareth De La Cruz [facility] 09-06-2023 11:09-0400 Mean blood pressure 106 mm[Hg] Margareth De La Cruz [facility] 09-06-2023 11:09-0400 Respiratory rate 16 /min Margareth De La Cruz [facility] 09-06-2023 11:09-0400 Systolic blood pressure 163 mm[Hg] Margareth De La Cruz [facility] 08-06-2023 14:22-0400 Heart rate 59 /min Himanshu Adriana [facility] 08-06-2023 14:22-0400 SaO2% (BldA) [Mass fraction] 99 % Himanshu Adriana [facility] 08-06-2023 14:22-0400 Diastolic blood pressure 91 mm[Hg] Himanshu Adriana [facility] 08-06-2023 14:22-0400 Mean blood pressure 107 mm[Hg] Himanshu Adriana [facility] 08-06-2023 14:22-0400 Systolic blood pressure 139 mm[Hg] Himanshu Adriana [facility] 08-06-2023 14:15-0400 Diastolic blood pressure 80 mm[Hg] Himanshu Adriana [facility] 08-06-2023 14:15-0400 Heart rate 58 /min Himanshu Adriana [facility] 08-06-2023 14:15-0400 SaO2% (BldA) [Mass fraction] 97 % Himanshu Adriana [facility] 08-06-2023 14:15-0400 Systolic blood pressure 146 mm[Hg] Himanshu Adriana [facility] 08-06-2023 13:52-0400 Respiratory rate 14 /min Himanshugerardo Wright [facility] 08-06-2023 13:00-0400 Body temperature 98.06 [degF] Himanshu Wright [facility] 08-06-2023 13:00-0400 Diastolic blood pressure 70 mm[Hg] Himanshugerardo Wright [facility] 08-06-2023 13:00-0400 Heart rate 67 /min Himanshu Wright [facility] 08-06-2023 13:00-0400 Systolic blood pressure 144 mm[Hg] Himanshu Adriana [facility] 07-02-2023 14:17-0400 Diastolic blood pressure 71 mm[Hg] Margareth De La Cruz [facility] 07-02-2023 14:17-0400 Heart rate 61 /min Margareth De La Cruz [facility] 07-02-2023 14:17-0400 Mean blood pressure 97 mm[Hg] Margareth De La Cruz [facility] 07-02-2023 14:17-0400 Respiratory rate 14 /min Margareth De La Cruz [facility] 07-02-2023 14:17-0400 Systolic blood pressure 148 mm[Hg] Margareth De La Cruz [facility] 01-11-2023 13:43-0500 Diastolic blood pressure 75 mm[Hg] Margareth De La Cruz [facility] 01-11-2023 13:43-0500 Heart rate 76 /min Margareth De La Cruz [facility] 01-11-2023 13:43-0500 Mean blood pressure 105 mm[Hg] Margareth De La Cruz [facility] 01-11-2023 13:43-0500 Respiratory rate 18 /min Margareth De La Cruz [facility] 01-11-2023 13:43-0500 Systolic blood pressure 166 mm[Hg] Margareth De La Cruz [facility] 01-08-2023 13:30-0500 Body height 182.88 cm Cristobal Ball Other [facility] Other 01-08-2023 13:30-0500 Body mass index (BMI) [Ratio] 32.11 kg/m2 Cristobal Ball Other [employer] [facility] Other 01-08-2023 13:30-0500 Body weight 107.41 kg Cristobal Ball Other [employer] [facility] Other 01-08-2023 13:30-0500 Diastolic blood pressure 70 mm[Hg] Cristobal Ball Other [employer] Other 01-08-2023 13:30-0500 Respiratory rate 16 /min Cristobal Ball Other [employer] Other 01-08-2023 13:30-0500 Systolic blood pressure 126 mm[Hg] Cristobal Ball Other [employer] Other 12-12-2022 11:00-0500 Heart rate 73 /min Tutu Zumbar [facility] 12-12-2022 11:00-0500 SaO2% (BldA) [Mass fraction] 98 % Tutu Zumbar [facility] 12-12-2022 11:00-0500 Diastolic blood pressure 75 mm[Hg] Tutu Zumbar [facility] 12-12-2022 11:00-0500 Mean blood pressure 108 mm[Hg] Tutu Zumbar [facility] 12-12-2022 11:00-0500 Systolic blood pressure 173 mm[Hg] Tutu Zumbar [facility] 12-12-2022 10:51-0500 Diastolic blood pressure 88 mm[Hg] Tutu Zumbar [facility] 12-12-2022 10:51-0500 Heart rate 71 /min Tutu Zumbar [facility] 12-12-2022 10:51-0500 Respiratory rate 16 /min Tutu Zumbar [facility] 12-12-2022 10:51-0500 SaO2% (BldA) [Mass fraction] 96 % Tutu Zumbar [facility] 12-12-2022 10:51-0500 Systolic blood pressure 157 mm[Hg] Tutu Zumbar [facility] 12-12-2022 10:13-0500 Heart rate 75 /min Tutu Zumbar [facility] 12-12-2022 10:13-0500 SaO2% (BldA) [Mass fraction] 97 % Tutu Zumbar [facility] 12-12-2022 10:13-0500 Body temperature 97.88 [degF] Tutu Zumbar [facility] 12-12-2022 10:12-0500 Diastolic blood pressure 76 mm[Hg] Tutu Zumbar [facility] 12-12-2022 10:12-0500 Mean blood pressure 108 mm[Hg] Tutu Zumbar [facility] 12-12-2022 10:12-0500 Systolic blood pressure 170 mm[Hg] Tutu Zumbar [facility] 12-12-2022 10:10-0500 Respiratory rate 16 /min Tutu Zumbar [facility] 11-08-2022 15:04-0500 Diastolic blood pressure 76 mm[Hg] Tutu Zumbar [facility] 11-08-2022 15:04-0500 Heart rate 62 /min Tutu Zumbar [facility] 11-08-2022 15:04-0500 Mean blood pressure 108 mm[Hg] Tutu Zumbar [facility] 11-08-2022 15:04-0500 Respiratory rate 14 /min Tutu Zumbar [facility] 11-08-2022 15:04-0500 Systolic blood pressure 173 mm[Hg] Tutu Zumbar [facility] Encounters Encounter Date Encounter Type Care Provider Facility Start: 01-12-2025 End: 01-12-2025 ambulatory Margareth De La Cruz Facility[place] [place] Start: 01-12-2025 End: 01-12-2025 Patient encounter procedure Margareth De La Cruz [facility] Start: 12-28-2024 End: 12-28-2024 ambulatory [facility] Start: 12-15-2024 End: 12-15-2024 ambulatory Margareth De La Cruz Facility:[facility] [place] Start: 12-15-2024 End: 12-15-2024 Patient encounter procedure Margareth De La Cruz [facility] Start: 12-07-2024 End: 12-07-2024 ambulatory John Cannon Facility:[facility] [place] Start: 12-07-2024 End: 12-07-2024 Pain Management John Cannon [facility] Start: 11-03-2024 End: 11-03-2024 ambulatory [facility] Start: 10-29-2024 End: 10-29-2024 ambulatory John Cannon Facility:[facility] [place] Start: 10-29-2024 End: 10-29-2024 Patient encounter procedure John Cannon [facility] Start: 10-13-2024 End: 10-13-2024 ambulatory Margareth De La Cruz Facility:[facility] [place] Start: 10-13-2024 End: 10-13-2024 Patient encounter procedure Margareth De La Cruz [facility] Start: 09-08-2024 End: 09-08-2024 ambulatory John Cannon Facility:[facility] [place] Start: 09-08-2024 End: 09-08-2024 Pain Management John Cannon [facility] Start: 08-31-2024 End: 08-31-2024 ambulatory [facility] Start: 08-13-2024 End: 08-13-2024 ambulatory [facility] Start: 08-03-2024 End: 08-03-2024 ambulatory Margareth Jono Facility:[facility] [place] Start: 08-03-2024 End: 08-03-2024 Patient encounter procedure Margareth De La Cruz [facility] Start: 07-27-2024 End: 07-27-2024 ambulatory [facility] Start: 05-19-2024 End: 05-19-2024 ambulatory [facility] Start: 05-18-2024 End: 05-18-2024 ambulatory Margareth Jono Facility:[facility] [place] Start: 05-18-2024 End: 05-18-2024 Pain Management Margareth De La Cruz [facility] Start: 05-11-2024 End: 05-11-2024 ambulatory [facility] Start: 05-11-2024 End: 05-11-2024 ambulatory [facility] Start: 03-27-2024 End: 03-27-2024 ambulatory PA-C Margareth De La Cruz Facility:[facility] [place] Start: 03-27-2024 End: 03-27-2024 Pain Management Margareth De La Cruz [facility] Start: 03-17-2024 End: 03-17-2024 ambulatory [facility] Start: 02-14-2024 End: 02-14-2024 ambulatory PA-C Margareth De La Cruz Facility:[facility] [place] Start: 02-14-2024 End: 02-14-2024 Pain Management Margareth De La Cruz [facility] Start: 02-11-2024 End: 02-11-2024 ambulatory Cristobal Michel Other [employer] Other Start: 02-11-2024 Telephone encounter [facility] Start: 01-20-2024 End: 01-20-2024 ambulatory [facility] Start: 01-15-2024 End: 01-15-2024 ambulatory John Cannon Facility:[facility] [place] Start: 01-15-2024 End: 01-15-2024 Pain Management John Cannon [facility] Start: 12-16-2023 End: 12-16-2023 Pain Management Margareth De La Cruz [facility] Start: 11-27-2023 End: 11-27-2023 ambulatory Cristobal Michel Other [employer] Other Start: 11-27-2023 Telephone encounter Cristobal Michel [facility]ALINDA [facility] Start: 11-19-2023 End: 11-19-2023 ambulatory Cristobal Michel Other [employer] Other Start: 11-19-2023 Telephone encounter Cristobal Michel ROSALINDA [facility] Start: 11-14-2023 End: 11-14-2023 ambulatory Cristobal Michel Other [employer] Other Start: 11-14-2023 Telephone encounter Cristobal TELLEZ [facility] Start: 11-12-2023 End: 11-12-2023 ambulatory Cristobal Michel Other [employer] Other Start: 11-12-2023 Office outpatient vi sit 25 minutes Cristobal Michel [facility] Start: 11-08-2023 End: 11-08-2023 Pain Management Margareth De La Cruz [facility] Start: 09-06-2023 End: 09-06-2023 Pain Management Margareth De La Cruz [facility] Start: 09-04-2023 End: 09-04-2023 ambulatory Cristobal Michel Other [employer] Other Start: 09-04-2023 Telephone encounter Cristobal Michel [facility] Start: 08-21-2023 End: 08-21-2023 ambulatory Cristobal Michel Other [employer] Other Start: 08-21-2023 Telephone encounter Cristobal Michel ROSALINDA [facility] Start: 08-06-2023 End: 08-06-2023 Pain Management Himanshu Wright [facility] Start: 07-23-2023 End: 07-23-2023 ambulatory Cristobal Michel Other [employer] Other Start: 07-23-2023 Telephone encounter Cristobal TELLEZ [facility] Start: 07-02-2023 End: 07-02-2023 Pain Management Margareth De La Cruz [facility] Start: 03-19-2023 End: 03-19-2023 ambulatory Cristobal Som Other [employer] Other Start: 03-19-2023 Office outpatient vi sit 15 minutes Cristobal Michel [facility] Start: 03-08-2023 End: 03-08-2023 ambulatory Cristobal Som Other [employer] Other Start: 03-08-2023 Telephone encounter Cristobal Som TELLEZ [facility] Start: 03-07-2023 Telephone encounter Cristobal TELLEZ [facility] Start: 03-07-2023 End: 03-08-[address] CRISTOBAL MICHEL [employer] Other Start: 02-26-2023 End: 02-26-2023 ambulatory Cristobal Michel Other [employer] Other Start: 02-26-2023 Telephone encounter Cristobal Michel [facility] Start: 01-18-2023 Telephone encounter Cristobal Michel FP [facility] Start: 01-18-2023 End: 01-19-[address] DOCTOR ADAMS [facility] [employer] Other Start: 01-11-2023 End: 01-11-2023 Pain Management Margareth De La Cruz [facility] Start: 01-08-2023 End: 01-08-2023 ambulatory Cristobal Michel Other [facility] Other Start: 01-08-2023 Office outpatient vi sit 25 minutes Cristobal Michel [facility] Start: 12-12-2022 End: 12-12-2022 Pain Management Tutu Katzar [facility] Start: 11-23-2022 End: 11-23-[address] CRISTOBAL MICHEL Facility:[facility] Start: 11-18-2022 End: 11-22-[address] CRISTOBAL MICHEL Facility:[facility] Start: 11-08-2022 End: 11-08-2022 Patient encounter procedure Tutu Zumbar [facility] Start: 11-08-2022 End: 11-08-2022 Pain Management Tutu Zumbar [facility] Start: 08-29-2022 End: 08-30-[address] DOCTOR ADAMS Facility:[facility] Start: 07-31-2022 End: 08-01-[address] MOI CAMPBELL Facility:[facility] Start: 07-02-2022 Encounter for preprocedural laboratory examination DR CRISTOBAL MICHEL [facility] Start: 06-29-2022 End: 06-30-2022 Encounter for preprocedural laboratory examination DR CRISTOBAL MICHEL Facility:[facility] Start: 06-29-2022 End: 06-30-[address] CRISTOBAL MICHEL Facility:[facility] Start: 06-14-2022 End: 11-17-[address] CRISTOBAL MICHEL Facility: Start: 03-13-2022 End: 03-14-2022 ambulatory LUPIS DENNIS Facility:[facility] Procedures Date Procedure Procedure Detail Performing Clinician Start: 12-07-2024 Minimally invasive decompression of lumbar spine [employer] Start: 05-11-2024 Follow-up visit Follow-up MORENITA Mildred CHARSophieRICCO Start: 01-15-2024 Epidural injection o f lumbar spine using fluoroscopic guidance [employer] Comment on above: 0% relief Start: 08-06-2023 Injection of nerve r oot of lumbar spine using fluoroscopic guidance [employer] Comment on above: bilat L5/S1 TFESI- 9 0% relief x 2 weeks Start: 12-12-2022 Injection of nerve r oot of lumbar spine using fluoroscopic guidance [employer] Comment on above: L5-S1-90% relief Start: 04-17-2022 PSA screening LUPIS DENNIS Comment on above: Performed By: #### [id number] #### [facility] [address] Start: 11-22-2021 Injection of nerve r oot of lumbar spine using fluoroscopic guidance Tutu Guzman Comment on above: Bilateral L5 TFESI-9 0-95% relief Start: 07-01-2020 Epidural steroid injection Tutu Guzman Comment on above: bilat L5 TFESI- 100% relief x 2 weeks now down to 50% Start: 1950 Epidural injection o f lumbar spine using fluoroscopic guidance [employer] Coronary bypass gustabo t angiography Tutu Guzman [...] high dose seasonal, preservative-free Cristobal Michel Other [employer] Other 08-21-2021 influenza virus vaccine, split virus (incl. purified surface antigen) Cristobal Michel Other [employer] Other 08-11-2021 COVID-19 Vaccine Pfi zer - Documentation Purposes Only Cristobal Som Other [employer] Other 01-10-2021 COVID-19 Vaccine Pfi zer - Documentation Purposes Only Cristobal Som Other [employer] Other 12-20-2020 COVID-19 Vaccine Pfi zer - Documentation Purposes Only Cristobal Som Other [employer] Other 08-12-2020 zoster vaccine, live Benjami yonathan Som Other [employer] Other 07-27-2020 influenza virus vaccine, split virus (incl. purified surface antigen) Cristobal Som Other [employer] Other 08-26-2019 influenza virus vaccine, split virus (incl. purified surface antigen) Cristobal Som Other [employer] Other 10-29-2018 influenza virus vaccine, split virus (incl. purified surface antigen) Cristobal Som Other [employer] Other 07-19-2017 influenza virus vaccine, split virus (incl. purified surface antigen) Cristobal Som Other [employer] Other 10-09-2016 influenza virus vaccine, split virus (incl. purified surface antigen) Cristobal Michel Other [employer] Other 10-18-2015 influenza virus vaccine, split virus (incl. purified surface antigen) Cristobal Michel Other [employer] Other 09-20-2015 pneumococcal conjuga te vaccine, 13 valent Cristobal Michel Other [employer] Other 11-07-2012 pneumococcal polysaccharide vaccine, 23 valent Cristobal Michel Other [employer] Other Payers Date Payer Category Payer Private Health Insurance [id number] 1950 Unknown [id number] 2.16.8 40.1.514319.3.579.2.647 1950 Unknown [id number] 2.16.84 0.1.554258.3.579.2.593 1950 Unknown [id number] 2.16.84 0.1.464395.3.579.2.593 1950 Unknown [id number] 2.16.84 0.1.140149.3.579.2.593 1950 Unknown [id number] 2.16.84 0.1.872586.3.579.2.593 1950 Unknown [id number] 2.16.84 0.1.578710.3.579.2.593 1950 Unknown [id number] 2.16.84 0.1.936435.3.579.2.593 1950 Unknown [id number] 2.16.84 0.1.705329.3.579.2.593 1950 Unknown [id number] 2.16.84 0.1.579858.3.579.2.593 1950 Unknown [id number] 2.16.84 0.1.593266.3.579.2.593 1950 Unknown [id number] 2.16.8 40.1.285217.3.579.2.727 1950 Unknown [id number] 2.16.8 40.1.560405.3.579.2.727 1950 Unknown [id number] 2.16.8 40.1.117001.3.579.2.72 1950 Unknown [id number] 2.16.8 40.1.088047.3.579.2.72 1950 Unknown [id number] 2.16.8 40.1.205766.3.579.2.727 1950 Unknown [id number] 2.16.8 40.1.449821.3.579.2.727 1950 Unknown [id number] 2.16.8 40.1.149032.3.579.2.727 1950 Unknown [id number] 2.16.8 40.1.799634.3.579.2.727 1950 Unknown [id number] 2.16.8 40.1.353135.3.579.2.727 1950 Unknown [id number] 2.16.8 40.1.135239.3.579.2.72 1950 Unknown [id number] 2.16.8 40.1.759333.3.579.2.727 Social History Date Type Detail Facility Start: 10-05-2021 Tobacco smoking status Ex-smoker (fi nding) [facility] Comment on above: Quit in 1982 Sex Assigned At Male [facility] Medical Equipment Procedure Code Equipment Code Equipment Origin al Text Equipment Identifier Dates Start: 04-09-2023 Functional Status Date Assessment Result Facility 01-12-2025 Functional Status N/A [facility] 12-15-2024 Functional Status N/A [facility] 12-07-2024 Functional Status N/A [facility] 10-29-2024 Functional Status N/A [facility] 10-13-2024 Functional Status N/A [facility] 09-08-2024 Functional Status N/A [facility] 08-03-2024 Functional Status N/A [facility] 05-18-2024 Functional Status N/A [facility] 03-27-2024 Functional Status N/A [facility] 02-14-2024 Functional Status N/A [facility] 01-15-2024 Functional Status N/A [facility] 12-16-2023 Functional Status N/A [facility] 11-08-2023 Functional Status N/A [facility] 09-06-2023 Functional Status N/A [facility] 08-06-2023 Functional Status N/A [facility] 07-02-2023 Functional Status N/A [facility] 01-11-2023 Functional Status N/A [facility] 12-12-2022 Functional Status N/A [facility] 11-08-2022 Functional Status N/A [facility] Clinical Notes 01-08-2023 to 01-12-2025 Note Date [...] clinic sooner if necessary. LEONOR score: 40%. [facility] 02-25-2025 NoteConsultation Note Patient: TRAE PINEDA Age: [...] History of heart attack / SNOMED CT 4620286126 / Confirmed Acute angina / SNOMED CT 294680760 / Confirmed Irregular heart beat / SNOMED CT 012232239 / Confirmed HTN (hypertension) / SNOMED CT 7210087336 / Confirmed High cholesterol / SNOMED CT 40802369 / Confirmed H/O heart bypass surgery / SNOMED CT 751524981 / Confirmed Apnea, sleep / SNOMED CT 602397429 / Confirmed CPAP (continuous positive airway pressure) dependence / SNOMED CT 2293429238 / Confirmed Enlarged prostate / SNOMED CT 088415062 / Confirmed Chronic kidney disease (CKD) / SNOMED CT 0492127352 / Confirmed Diabetes / SNOMED CT 167618382 / Confirmed Carpal tunnel syndrome / SNOMED CT 47368724 / Confirmed Anemia / SNOMED CT 597386349 / Confirmed Arthritis, rheumatoid / SNOMED CT 700495328 / Confirmed Obesity / ICD-9-CM 278.00 / Possible Obesity / SNOMED CT [id number] / Possible Objective Vital Signs 01/12/2025 10:31 [...] with bilateral facet loading Integumentary: Warm, Dry, Sarepta. Small area of eschar improved from before. [...] views. 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 Normal right v (more content not included)...[facility] 12-15-2024 Evaluation + Plan noteExtracted from: Title:Pain Managment Follow up Author:Maragreth Umaña Date:12/15/24 Impression and Plan Patient is [...] AM Scheduled Provider:Margareth De La Cruz PA-C Location:.[facility], [facility] Appointment Type:Pain Management - Follow Up (FT) [facility] 01-28-2025 NoteConsultation Note Patient: TRAE PINEDA Age: [...] Spasm, # 30 tab(s), Refills(s) 0, Pharmacy: [facility]/pharmacy #[id number], 183, cm, 02/14/24 13:46:00 EDT, [...] History of heart attack / SNOMED CT 4312214558 / Confirmed Acute angina / SNOMED CT 428830261 / Confirmed Irregular heart beat / SNOMED CT 018714517 / Confirmed HTN (hypertension) / SNOMED CT 5399127377 / Confirmed High cholesterol / SNOMED CT 68144111 / Confirmed H/O heart bypass surgery / SNOMED CT 406856687 / Confirmed Apnea, sleep / SNOMED CT 704616383 / Confirmed CPAP (continuous positive airway pressure) dependence / SNOMED CT 9409285356 / Confirmed Enlarged prostate / SNOMED CT 048296080 / Confirmed Chronic kidney disease (CKD) / SNOMED CT 2084943644 / Confirmed Diabetes / SNOMED CT 788175789 / Confirmed Carpal tunnel syndrome / SNOMED CT 57006612 / Confirmed Anemia / SNOMED CT 131290154 / Confirmed Arthritis, rheumatoid / SNOMED CT 312011681 / Confirmed Obesity / ICD-9-CM 278.00 / Possible Obesity / SNOMED CT [id number] / Possible Objective Vital Signs 12/15/2024 10:15 EST Peripheral Pulse Rate 67 bpm Respiratory Rate 14 br/min Systolic Blood Pressure 130 mmHg Diastolic Blood Pressure 61 mmHg Mean Arterial Pressure, Cuff 84 mmHg General: Alert and oriented, No acute distress. Eye: Normal conjunctiva. HENT: Normocephalic, Normal hearing. Cardiovascular: No edema. Musculoskeletal Normal range of motion. Normal strength. 5/5 strength Integumentary: Warm, Dry, Sarepta. Small area of eschar Some glue residue [...] he wonders about pos (more content not included)...[facility] Comment on above:Result Comment: Electronically Signed By: Jono AGOSTO, Margareth\.dawit\Date and Time Signed: 12/15/24 10:41 [id number] Evaluation + Plan noteExtracted from: Title:ANES Post-operative [...] then advanced into the appropriate space using [id number] and confirmed by fluoroscopy and contrast spread. [...] Author: Gerber Catalan Jr., DO Date:12/07/24 Plan [place] [employer] (ASA) physical status classification: Class III. Anesthetic Preoperative Plan: Anesthesia Monitored anethesia care. Future Appointments Appointment Date:12/15/2024 10:15:00 AM Scheduled Provider:Margareth De La Cruz PA-C Location:[facility] Appointment Type:Pain Management - Follow Up (FT) [facility] [id number] NoteProgress Note-Physician Patient: TRAE PINEDA Age: 74 years Sex: Male : 1950 Associated Diagnoses: None Author: Gerber Catalan Jr., DO Postoperative Information Postoperative disposition: Postoperative disposition: To PACU. Optimetrix number: Optimetrix number [id number]. Anesthetic utilized: Monitored anesthesia care. Physical Examination Vital signs stable. Pain Assessment: Controlled. General: Awake, Alert, Appropriate. Respiratory: Adequate air exchange, Equal bilateral chest wall expansion, Non-labored. Cardiovascular: Stable, Normal peripheral perfusion. Neurological: Normal sensory function. Assessment Anesthetic outcome No anesthetic complications noted. Review / Management Condition: Stable. Plan Transfer/Discharge: Transfer/Discharge Discharge when meets criteria.Park[facility] HospitalComment on above:Result Comment: Electronically Signed By: Gerber Catalan Jr., DO\.br\Date and Time Signed: 12/07/24 12:41 [id number] NoteProgress Note-Physician Patient: TRAE PINEDA Age: 74 [...] BID, # 120 cap(s), Refills(s) 0, Pharmacy: [facility]/pharmacy #[id number], 183, cm, 10/13/24 14:06:00 EST, Height/Length Dosing, 104.3, kg, 10/13/24 14:06:00 EST, Weight Dosing baclofen 5 mg oral tablet: 5 mg = 1 tab(s), Oral, TID, PRN Spasm, # 30 tab(s), Refills(s) 0, [id number], cm, 02/14/24 13:46:00 EDT, [...] All Problems Acute angina / SNOMED CT 457026316 / Confirmed Anemia / SNOMED CT 407945602 / Confirmed Apnea, sleep / SNOMED CT 120502069 / Confirmed Arthritis, rheumatoid / SNOMED CT 822739311 / Confirmed Carpal tunnel syndrome / SNOMED CT 96668041 / Confirmed Chronic kidney disease (CKD) / SNOMED CT 3995343465 / Confirmed CPAP (continuous positive airway pressure) dependence / SNOMED CT 6836271168 / Confirmed Diabetes / SNOMED CT 250085684 / Confirmed Enlarged prostate / SNOMED CT 642906329 / Confirmed H/O heart bypass surgery / SNOMED CT 419158173 / Confirmed High cholesterol / SNOMED CT 33617300 / Confirmed History of heart attack / SNOMED CT 4333424315 / Confirmed HTN (hypertension) / SNOMED CT 8030617257 / Confirmed Irregular heart beat / SNOMED CT 726219315 / Confirmed Obesity / ICD-9-CM 278.00 / Possible Obesity / SNOMED CT [id number] / Possible Histories Past Medical History: No active or resolved past medical history items have been selected or recorded. Procedure history: L5/S1 lumbar interlaminar epidural steroid injection ([id number]) on 01/15/2024 at 73 Years. Comments: 02/14/2024 13:35 EDT - Lupis Manzo 0% relief Transforaminal Epidural Steroid Injection ([id number]) on 08/06/2023 at 73 Years. Comments: 09/06/2023 11:11 JUAN CARLOS Griggs RN, Heather chun L5/S1 TFESI- 90% relief x 2 weeks Injection of nerve root of lumbar spine using fluoroscopic guidance ([id number]) on 12/12/2022 at 72Years. Comments: 01/11/2023 13:49 Mago Landa RN L5-S1-90% relief Bilateral L5 TFESI ([id number]) on 11/22/2021 at 71 Years. Comments: 12/29/2021 12:59 Lula Erazo RN Bilateral L5 TFESI-90-95% relief Transforaminal Epidural steroid injection-B/L L5 ([id number]) on 07/01/2020 at 70 Years. Comm (more content not included)...[facility]wood HospitalComment on above: Result Comment: Electronically Signed By: Gerber Catalan Jr., DO\Date and Time Signed: 12/07/24 07:16 [id number] NoteUrology Documentation Note Trae Pineda is a [...] above. Morenita Larsen CNP Urology/Renal Transplant [facility] 11-03-2024 NoteUrology Clinic H&P Dr. Diony Ariza [...] experience as getting the urge but, about detention to the bathroom when he begins to [...] with frequency AUA symptom score is 15 xhoueql-hq-ftoo is 4 UDS - delayed sensation Incomplete [...] well with his urination (more content not included)...[facility] NoteConsultation Note Patient: TRAE PINEDA Age: [...] is unhappy that it did not last chcf. 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 Some relief but not enough. He did therapyin the past that has not helped. He has done epidural steroid injections in the past. Some helped and some did not. He has taken hsyl-eoe-zhvrups medications again with some improvement not enough. Health Status Allergies: Allergic Reactions (Selected) Severity Not Documented HydrALAZINE- Palpatations. Statins- Muscle ache., Allergies (2) Active Severity Reaction statins muscle ache hydrALAZINE palpatations Current medications: (Selected) Prescriptions Prescribed baclofen 5 mg oral tablet: 5 mg = 1 tab(s), Oral, TID, PRN Spasm, # 30 tab(s), Refills(s) 0, Pharmacy: [facility]/pharmacy #[id number], 183, cm, 02/14/24 13:46:00 EDT, Height/Length Dosing, [...] History of heart attack / SNOMED CT 1913597831 / Confirmed Acute angina / SNOMED CT 532489240 / Confirmed Irregular heart beat / SNOMED CT 288310692 / Confirmed HTN (hypertension) / SNOMED CT 3842779425 / Confirmed High cholesterol / SNOMED CT 28870667 / Confirmed H/O heart bypass surgery / SNOMED CT 964157856 / Confirmed Apnea, sleep / SNOMED CT 999189728 / Confirmed CPAP (continuous positive airway pressure) dependence / SNOMED CT 3192025656 / Confirmed Enlarged prostate / SNOMED CT 301337384 / Confirmed Chronic kidney disease (CKD) / SNOMED CT 8900541213 / Confirmed Diabetes / SNOMED CT 113278980 / Confirmed Carpal tunnel syndrome / SNOMED CT 79405471 / Confirmed Anemia / SNOMED CT 836739646 / Confirmed Arthritis, rheumatoid / SNOMED CT 576012269 / Confirmed Obesity / ICD-9-CM 278.00 / Possible Obesity / SNOMED CT [id number] / Possible Objective Vital Signs 10/13/2024 13:51 [...] right straight leg raise Integumentary: Warm, Dry, Sarepta. Neurologic: Alert, Oriented. Psychiatric: Cooperative, Appropriate mood [...] Unfortunate, some of his (more content not included)...Parkwood HospitalComment on above:Result Comment: Electronically Signed By: Margareth De La Cruz PA-C\.br\Date and Time Signed: 10/13/24 14:19 [id number] Evaluation + Plan noteExtracted from: Title:Pain Managment [...] him as well mention. LEONOR score: 38%. [facility] 10-22-2024 Evaluation + Plan noteExtracted from: Title:Bilateral [...] PM Scheduled Provider:Margareth De La Cruz PA-C Location:[facility] Appointment Type:Pain Management - Follow Up (FT) [facility] 10-22-2024 NoteOperative Report Diagnosis: m54.17, lumbosacral radiculopathy [...] and agrees to comply to currently prescribed/recommended therapies.[facility] Comment on above:Result Comment: Electronically Signed By: John Cannon DO.br\Date and Time Signed: 09/08/24 11:45 [id number] NoteUT Cardiology - [facility] Subjective Trae Pineda is a [...] pain Primary hypertension Coronary artery disease involving ekwok coronary artery of ekwok heart 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 Nor (more content not included)...[facility] NoteProstate US Date/Time: 08/13/2024 2:01 PM Performed by: Diony Ariza MD Authorized by: Diony Ariza MD Procedure discussed: discussed risks, benefits and alternatives Customs Compliance Director present: no Timeout: timeout called immediately prior [...] to discuss the results of the procedure, breastfeeding peer counselor and answer any questions. All of [...] patient choice Check PVR 9/26/24 - 80 [facility]09-16-2024 NoteConsultation Note Patient: TRAE PINEDA Age: 74 [...] he was driving back and forth to [place] for his . She ended up passing [...] states that he is now trying to ho-chunk back to do things to help take [...] and some did not. He has taken rngh-njz-gnkgoub medications again with some improvement not enough. [...] BID, # 120 tab(s), Refills(s) 0, Pharmacy: [facility]/pharmacy #[id number], 183, cm, 05/18/24 13:21:00 EDT, Height/Length Dosing, 107, kg, 05/18/24 13:21:00 EDT, Weight Dosing baclofen 5 mg oral tablet: 5 mg = 1 tab(s), Oral, TID, PRN Spasm, # 30 tab(s), Refills(s) 0, [id number], 183, cm, 02/14/24 13:46:00 EDT, Height/Length Dosing, 110.3, kg, 02/14/24 13:46:00 EDT, Weight Dosing gabapentin 300 mg Cap: 300 mg = 1 cap(s), Oral, Once a day (at bedtime), # 30 cap(s), Refills(s) 1,[id number] 183, cm, 12/16/23 10:37:00 EST, [...] History of heart attack / SNOMED CT 7181610469 / Confirmed Acute angina / SNOMED CT 312236575 / Confirmed Irregular heart beat / SNOMED CT 446760920 / Confirmed HTN (hypertension) / SNOMED CT 6117308025 / Confirmed High cholesterol / SNOMED CT 09656742 / Confirmed H/O heart bypass surgery / SNOMED CT 663168574 / Confirmed Apnea, sleep / SNOMED CT 728720498 / Confirmed CPAP (continuous positive airway pressure) dependence / SNOMED CT 6569450818 / Confirmed Enlarged prostate / SNOMED CT 017428295 / Confirmed Chronic kidney disease (CKD) / SNOMED CT 1764517000 / Confirmed Diabetes / SNOMED CT 309173724 / Confirmed Carpal tunnel syndrome / SNOMED CT 31661378 / Confirmed Anemia / SNOMED CT 811177748 / Confirmed Arthritis, rheumatoid / SNOMED CT 828763934 / Confirmed Obesity / ICD-9-CM 278.00 / Possible Obesity / SNOMED CT [id number] / Possible Objective Vital Signs 08/03/2024 14:37 [...] right straight leg raise Integumentary: Warm, Dry, Sarepta. Neurologic: Alert, Oriented. (more content not included)...[facility] HospitalComment on above:Result Comment: Electronically Signed By: Margareth De La Cruz PA-C\.br\Date and Time Signed: 08/03/24 14:57 [id number] Evaluation + Plan noteExtracted from: Title:Pain Managment [...] Follow-up as above mention. LEONOR score: 53%. [facility] 09-09-2024 NoteUT Cardiology [facility] Subjective Trae Pineda is [...] pain Benign essential hypertension Coronary arteriosclerosis in ekw[place] artery Coronary arteriosclerosis of [place] coronary artery of transplanted heart Suprapubic discomfort [...] bacterial prostatitis COPD (chronic obstructive pulmonary disease) ([facility]) Coronary artery disease, non-occlusive Depression Diabetes mellitus ([facility]) Erectile dysfunction Hyperlipemia Hypertension Hypogonadism [...] Drug use: Never Allergies Allergies Allergen Reactions Pspzrac-Fuu-Tii Reductase Inhibitors Other Hydralazine Palpitations Other reaction(s): [...] , Rfl: gabapentin (N (more content not included)...[facility] 05-19-2024 Note Attestation signed by Diony [...] with frequency AUA symptom score is 15 vkvjgwe-dz-opze is 4 Incomplete bladder emptying After urinating, [...] with frequency AUA symptom score is 15 gotozzb-no-abxg is 4 Incomplete bladder emptying After urinating, patient reports that he often feels as if he is not emptying completely. Hypogonadism Testosterone levels 518 on 03/04/24 444 on 11/26/23 374 on 08/30/23 Patient does report a history of chronic back pain (more content not included)...[facility]07-01-2024 Evaluation + Plan note Extracted from: [...] PM Scheduled Provider:Margareth De La Cruz PA-C Location:[facility] Appointment Type:Pain Management - Follow Up (FT) [facility]07-01-2024 NoteConsultation Note Patient: TRAE PINEDA Age: 74 [...] BID, # 120 tab(s), Refills(s) 0, [id number] 183, cm, 05/18/24 13:21:00 EDT, Height/Length Dosing, 107, kg, 05/18/24 13:21:00 EDT, Weight Dosing baclofen 5 mg oral tablet: 5 mg = 1 tab(s), Oral, TID, PRN Spasm, # 30 tab(s), Refills(s) 0, [id number], 183, cm, 02/14/24 13:46:00 EDT, Height/Length Dosing, 110.3, kg, 02/14/24 13:46:00 EDT, Weight Dosing gabapentin 300 mg Cap: 300 mg = 1 cap(s), Oral, Once a day (at bedtime), # 30 cap(s), Refills(s) 1,[id number] 183, cm, 12/16/23 10:37:00 EST, [...] History of heart attack / SNOMED CT 3508230979 / Confirmed Acute angina / SNOMED CT 071126255 / Confirmed Irregular heart beat / SNOMED CT 766059821 / Confirmed HTN (hypertension) / SNOMED CT 5379246581 / Confirmed High cholesterol / SNOMED CT 17091248 / Confirmed H/O heart bypass surgery / SNOMED CT 591590982 / Confirmed Apnea, sleep / SNOMED CT 118220189 / Confirmed CPAP (continuous positive airway pressure) dependence / SNOMED CT 0528209641 / Confirmed Enlarged prostate / SNOMED CT 630450060 / Confirmed Chronic kidney disease (CKD) / SNOMED CT 9898279951 / Confirmed Diabetes / SNOMED CT 049885250 / Confirmed Carpal tunnel syndrome / SNOMED CT 34368099 / Confirmed Anemia / SNOMED CT 420260683 / Confirmed Arthritis, rheumatoid / SNOMED CT 910992960 / Confirmed Obesity / ICD-9-CM 278.00 / Possible Obesity / SNOMED CT [id number] / Possible Objective Vital Signs 05/18/2024 13:07 [...] right straight leg raise Integumentary: Warm, Dry, Sarepta. Neurologic: Alert, Oriented. Psychiatric: Cooperative, Appropriate mood [...] activities affects his ed (more content not included)...[facility] HospitalComment on above:Result Comment: Electronically Signed By: Margareth De La Cruz PA-C\.br\Date and Time Signed: 05/18/24 13:44 [id number] NoteDiagnosis: Benign prostatic hyperplasia with incomplete bladder [...] flow void Suggestive of outlet obstruction Incomplete voiding.[facility]06-24-2024 NoteSubjective Patient ID: Trae Pineda is [...] Dx: Urge Urinary Incontinence, post-void dribbling Attending: Switch Coupler: Charity Procedure: UroFLow/CMG/EMG/PVR Anesthesia: None Indications: Urge [...] on file. Morenita Larsen CNP Urology/Renal Transplant [facility] 03-27-2024 Evaluation + Plan noteExtracted from: Title:Pain [...] PM Scheduled Provider:Margareth De La Cruz PA-C Location:[facility] Appointment Type:Pain Management - Follow Up (FT) [facility]04-30-2024 NoteUrology Clinic H&P Dr. Diony Ariza MD [...] with frequency AUA symptom score is 15 etfxvco-dv-tzho is 4 Incomplete bladder emptying After urinating, [...] came back benign with (more content not included)...[facility]03-29-2024 Evaluation + Plan noteExtracted from: Title:Pain [...] Scheduled Provider:Margareth De La Cruz PA-C Location:.[facility] Appointment Type:Pain Management - Follow Up (FT) [facility]2024 NoteUT Cardiology - [facility] Subjective Trae Pineda is a 73 y.o. year old male patient being seen for 6 mo follow up CAD, hypertension, hyperlipidemia, and carotid artery stenosis. Had carotid US at [facility] a few weeks ago. [...] pain Benign essential hypertension Coronary arteriosclerosis in ekw[place] artery Coronary arteriosclerosis of [place] coronary artery of transplanted heart Suprapubic discomfort [...] swelling. His physical activ (more content not included)...[facility]02-28-2024 [id number] Berger Hospital02-28-2024 NoteDiagnosis: M54.16, lumbar radiculopathy Procedure: L5/S1 [...] the epidural space was confirmed using the htoe-vz-ikuzvrffzs technique and 2 cc of air. Injection [...] procedure, and agrees to continue currently prescribed/recommended therapies.[facility] Comment on above:Result Comment: Electronically Signed By: John Cannon DO\.br\Date and Time Signed: 01/15/24 14:23 [id number] Evaluation + Plan note Extracted from: Title:L5/S1 [...] the epidural space was confirmed using the nnpz-ps-xjtuoujenb technique and 2 cc of air. Injection [...] Scheduled Provider:Margareth De La Cruz PA-C Location:.[facility] Appointment Type:Pain Management - Follow Up (FT) [facility]01-29-2024 Evaluation + Plan noteExtracted from: Title:Pain Managment [...] will follow-up as above-mentioned LEONOR score: 48% [facility]01-02-2024 Evaluation note* Encounter Date Diagnosis Assessment Notes Treatment Notes Treatment Clinical Notes Nov, Pulmonary nodule (ICD-10 - R91.1) CT: RML 4mm nodule - 02/2022, CT: RML 7mm nodule - 02/2023 CT: stable - 08/2023Nov, Right carotid bruit (ICD-10 - R09.89) Carotid US: 50-69% stenosis - 2019, Carotid US: < 50% ICA w/ 75% right carotid bulb - 08/2021 [employer] Other 12-28-2023 Evaluation note* Encounter Date Diagnosis Assessment Notes Treatment Notes Treatment Clinical Notes Oct, 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 (ICD-10 - E11.3291) [employer] Other 12-26-2023 Evaluation note* Encounter Date [...] use, the patient reduces the risk for FL, CVA, HTN, cardiac dysrhythmias and sudden cardiac [...] index [BMI] 32.0-32.9, adult (ICD-10 - Z68.32) [employer] Other 12-22-2023 Evaluation + Plan noteExtracted [...] AM Scheduled Provider:Margareth De La Cruz PA-C Location:[facility] Appointment Type:Pain Management - Follow Up (FT) [facility]10-20-2023 Evaluation + Plan noteExtracted from: Title:Pain Managment [...] AM Scheduled Provider:Margareth De La Cruz PA-C Location:[facility] Appointment Type:Pain Management - Follow Up (FT) [facility]10-18-2023 Evaluation note* Encounter Date Diagnosis Assessment Notes Treatment Notes Treatment Clinical Notes Aug, Pulmonary nodule (ICD-10 - R91.1) CT: RML 4mm nodule - 02/2022, CT: RML 7mm nodule - 02/2023 CT: stable - 08/2023 [employer] Other 10-04-2023 Evaluation note* Encounter Date Diagnosis Assessment Notes Treatment Notes Treatment Clinical Notes Aug, Pulmonary nodule (ICD-10 - R91.1) [employer] Other 08-15-2023 Evaluation + Plan noteExtracted from: [...] clinic sooner if necessary. LEONOR score: 44% [facility]05-02-2023 Evaluation note* Encounter Date Diagnosis Assessment Notes Treatment Notes Treatment Clinical Notes March, COVID-19 (ICD-10 - U07.1) Instructed to use Robitussin or Mucinex for cough, saline or Flonase NS for congestion, Tylenol for pain and fever. March, Chronic bronchitis, mucopurulent (ICD-10 - J41.1) Mucinex DM as needed. Push fluids [employer] Other 04-20-2023 Evaluation note* Encounter Date Diagnosis Assessment Notes Treatment Notes Treatment Clinical Notes Feb, Pulmonary nodule (ICD-10 - R91.1) CT: RML 4mm nodule - 02/2022 CT: RML 7mm nodule - 02/2023 [employer] Other 04-11-2023 Evaluation note* Encounter Date Diagnosis Assessment Notes Treatment Notes Treatment Clinical Notes Feb, Pulmonary nodule (ICD-10 - R91.1) [employer] Other 02-24-2023 Evaluation + Plan noteExtracted from: Title:Pain Managment Follow up Author:aMrgareth Umaña Date:01/11/23 Impression and Plan Patient is [...] require a repeat injection. 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 (ICD-10 - Z79.4) [...] 02/2022 Serial LDCT for lung cancer detection [employer] Other Evaluation + Plan note No data available for this section [facility] note Future Appointments Appointment Date:01/11/2023 01:45:00 PM Scheduled Provider:Margareth De La Cruz PA-C Location:[facility] Appointment Type:Pain Management - Follow Up (FT) [facility] note Future Appointments Appointment Date:09/06/2023 11:00:00 AM Scheduled Provider:Margareth De La Cruz PA-C Location:[facility] [place] Appointment Type:Pain Management - Follow Up (FT) [facility] Plan note Future Appointments Appointment Date:11/09/2024 08:00:00 AM Scheduled Provider: Location:[facility] Appointment Type:Surgery FT Appointment Date:11/17/2024 10:45:00 AM Scheduled Provider:Margareth De La Cruz PA-C Location:[facility] [place] Appointment Type:Pain Management - Follow Up (FT) [facility] Evaluation noteNo InformationNevada Regional Medical [email or web address] Other History general Narrative - Reported* Type [...] gross Medical History 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, unspecified tissue rewinder nicity Medical History Arteriosclerosis of abdominal ao [...] Triple bypass Hospitalization History see sx history [employer] Other History general Narrative - Reported* Type [...] gross Medical History 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, unspecified tissue rewinder nicity Medical History Arteriosclerosis of abdominal ao [...] Triple bypass Hospitalization History see sx history [employer] Other Hospital Discharge instructions No data available for this section [facility]Progress note No data available for this section [facility] Summary Purpose Family History No Family History [...] and content) DATE CREATED AUTHOR 07/24/2022 [facility] DATE CREATED AUTHOR AUTHOR'S ORGANIZ ATION 03/11/2023 [facility] DATE CREATED AUTHOR AUTHOR'S ORGANIZ ATION 01/02/[address] [facility] DATE CREATED AUTHOR AUTHOR'S ORGANIZ ATION 01/14/2025 [facility] Patient Care team informatio n (unrecognized section and content) Personnel Name: CRISTOBAL MICHEL DO Address: Address: [address] [place], [facility]- Personnel Name: CRISTOBAL MICHEL DO Address: Address: [address] [facility] [place], [facility]- Personnel Name: CRISTOBAL MICHEL DO Address: Address: [address], [place] [address]- Personnel Name: CRISTOBAL MICHEL DO Address: Address: [address] [facility] [facility] [place], [facility]- Personnel Name: CRISTOBAL MICHEL DO Address: Address: [address] [facility] [place], [facility]- Personnel Name: CRISTOBAL MICHEL DO Address: Address: [address] [facility] [place], [facility]- Personnel Name: CRISTOBAL MICHEL DO Address: Address: [address] [facility] [place], [facility]- Personnel Name: CRISTOBAL MICHEL DO Address: Address: [address] [facility] [place], [facility]- Personnel Name: CRISTOBAL MICHEL DO Address: Address: [address] [place] [address]- Personnel Name: CRISTOBAL MICHEL DO Address: Address: [address] [facility] [place], [facility]- Personnel Name: CRISTOBAL MICHEL DO Address: Address: [address] [facility] [place] [address]- Personnel Name: CRISTOBAL MICHEL DO Address: Address: [address] [facility] [place] [address]- Personnel Name: CRISTOBAL MICHEL DO Address: Address: [address] [facility] [place], [facility]- Personnel Name: CRISTOBAL MICHEL DO Address: Address: [address] [facility] [place] [address]- Personnel Name: CRISTOBAL MICHEL DO Address: Address: [address] [facility] [place], [facility]- Personnel Name: CRISTOBAL MICHEL DO Address: Address: [address] [facility], [place] [address]- Personnel Name: CRISTOBAL MICHEL DO Address: Address: [address] [facility] [place], [facility]- Personnel Name: CRISTOBAL MICHEL DO Address: Address: [address] [place] [address]- Personnel Name: CRISTOBAL MICHEL DO Address: Address: [address] [place] [address]- Personnel Name: CRISTOBAL MICHEL DO Address: Address: [address] [place] [address]- REASON FOR VISIT (unrecogniz ed section and [...] BE BASED ON THE PRIMARY CLINICAL RECORDS. [employer] [facility]. provides no warranty or guarantee of the accuracy or completeness of information in this document.
[2025-01-20 04:08] LABS: Sex Horm Binding Glob, Serum 34.4 nmol/L (19.3-76.4)
[2025-01-24 14:07] LABS: Free Testosterone(Direct) 7.6 pg/mL (6.6-18.1); Testosterone 498 ng/dL (264-916)
== END 2025-01-19 08:53 | disposition home or self-care (01) ==
LOC: LAB 08:54
PROVIDERS: PCP Internal Medicine
DX: E29.1 Testicular hypofunction (principal)
CPT/HCPCS: 36415; 84270; 84402; 84403

== ENCOUNTER 2025-03-01 11:14 | Outpatient (OUT) | payer MEDICARE, SELFPAY ==
--- NOTE | 2025-03-01 | XR_ITS ---
The [address] [address] Patient Name: TRAE MONROE MRN: [id number] date: 1950 Sex: M Assigned Patient Location: Current Patient Location: Accession/Order Number: [id number] Exam Date: 03/01/2025 12:20 Report Date: 03/01/2025 12:22 At the request of: TYRONE URBAN MD Procedure: XR ankle RT min 3V RIGHT WEIGHTBEARING ANKLE - 3 views CLINICAL DATA: Chronic right foot pain laterally with radiation of the ankle. No injury. COMPARISON: None Weightbearing AP, lateral and oblique views were obtained. There is no acute fracture or dislocation. The talar dome is intact. A posterior calcaneal spur is seen. There is no significant soft tissue swelling. There is atherosclerotic disease. XR/XR ankle RT min 3V IMPRESSION: NO ACUTE BONY FINDINGS. Impression dictated by: Amy Johnson M.D.03/01/2025 12:22 PM Dictation Location: [place] [address] Electronically authenticated by: [id number] Y Date: 03/01/2025 12:22
--- NOTE | 2025-03-01 | XR_ITS ---
The [address] [address] Patient Name: TRAE MONROE MRN: [id number] date: 1950 Sex: M Assigned Patient Location: Current Patient Location: Accession/Order Number: [id number] Exam Date: 03/01/2025 11:58 Report Date: 03/01/2025 12:04 At the request of: TYRONE URBAN MD Procedure: XR foot RT min 3V RIGHT FOOT - 3 views CLINICAL DATA: Right foot pain, greatest at the metatarsal phalangeal joints laterally. No recent injury. COMPARISON: None Weightbearing AP, lateral and oblique views were obtained. There is deformity/absence at the heads of the proximal phalanges of the second through fifth toes. Etiology is uncertain given the lack of priors and no reported history of surgery. There is no definite acute fracture or dislocation. There are mild degenerative changes involving some of the interphalangeal and tarsometatarsal joints. There is a posterior calcaneal spur. There are no significant soft tissue abnormalities. Atherosclerotic disease is visualized. XR/XR foot RT min 3V IMPRESSION: CHRONIC APPEARING CHANGES, DESCRIBED. NO DEFINITE ACUTE BONY FINDINGS. Impression dictated by: Amy Johnson M.D.03/01/2025 12:04 PM Dictation Location: [place] [address] Electronically authenticated by: [id number] Y Date: 03/01/2025 12:04
== END 2025-03-01 11:15 | disposition home or self-care (01) ==
LOC: EC 11:14
PROVIDERS: PCP Internal Medicine; Visit Provider Orthopaedic Surgery
DX: M79.671 Pain in right foot (principal); M77.31 Calcaneal spur, right foot
CPT/HCPCS: 73610; 73630

== ENCOUNTER 2025-03-19 13:15 | Outpatient (OUT) | payer MEDICARE, SELFPAY ==
[2025-03-19 14:02] LABS: Basophils Absolute Auto 0.1 10^3/uL (0.0-0.1); Basophils Percent Auto 1.3 % (0.2-2.0); Eosinophils Absolute Auto 0.4 10^3/uL (0.0-0.7); Eosinophils Percent Auto 6.4 % (0.9-7.0); Hematocrit 40.4 % (42.0-54.0); Hemoglobin 13.5 g/dL (14.0-18.0); Immature Granulocytes Abs Auto 0.02 10^3/uL (0.00-0.03); Immature Granulocytes Pct Auto 0.3 % (0.0-0.5); Lymphocytes Absolute Auto 1.5 10^3/uL (1.2-3.8); Lymphocytes Percent Auto 21.6 % (20.5-60.0); Mean Corpuscular HGB Conc 33.4 g/dL (29.9-35.2); Mean Corpuscular Hemoglobin 30.8 pg (25.9-34.0); Mean Platelet Volume 11.4 fL (9.5-13.5); Monocytes Absolute Auto 0.6 10^3/uL (0.3-0.8); Monocytes Percent Auto 8.3 % (1.7-12.0); Neutrophils Absolute Auto 4.3 10^3/uL (1.4-6.5); Neutrophils Percent Auto 62.1 % (43.0-75.0); Platelet Count 177 10^3/uL (150-450); Red Blood Count 4.39 10^6/uL (4.70-6.10); Red Cell Distribution Width 13.5 % (11.0-15.0); White Blood Count 6.9 10^3/uL (4.0-11.0)
[2025-03-19 15:07] LABS: Anion Gap 14.5; BUN Creatinine Ratio 19.7; Calcium 9.2 mg/dL (8.5-10.1); Carbon Dioxide 27.6 mmol/L (21.0-32.0); Chloride 101 mmol/L (98-107); Estimated GFR (African America 47 (>=60 mL/min/1.73m^2); Estimated GFR (Non-African Ame 38 (>=60 mL/min/1.73m^2); Glucose 194 mg/dL (74-106); Potassium 5.1 mmol/L (3.5-5.1); Sodium 138 mmol/L (136-145)
== END 2025-03-19 13:16 | disposition home or self-care (01) ==
LOC: LAB 13:18
PROVIDERS: PCP Internal Medicine; Visit Provider Internal Medicine Interventional Cardiology
DX: I25.10 Atherosclerotic heart disease of native coronary artery without angina pectoris (principal); I47.29 Other ventricular tachycardia; R06.02 Shortness of breath; E11.65 Type 2 diabetes mellitus with hyperglycemia; Z79.4 Long term (current) use of insulin
CPT/HCPCS: 36415; 80048; 83036; 85025

== ENCOUNTER 2025-03-19 13:21 | Outpatient (OUT) | payer MEDICARE, SELFPAY ==
[2025-03-19 13:55] LABS: Estimated Average Glucose 154 mg/dL
== END 2025-03-19 13:22 | disposition home or self-care (01) ==
LOC: LAB 13:23
PROVIDERS: PCP Internal Medicine; Visit Provider Internal Medicine
DX: E11.65 Type 2 diabetes mellitus with hyperglycemia (principal); Z79.4 Long term (current) use of insulin
CPT/HCPCS: 36415; 83036

== ENCOUNTER 2025-05-11 12:44 | Outpatient (OUT) | payer MEDICARE, SELFPAY ==
--- NOTE | 2025-05-11 | RT_ITS ---
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 Order Number: [id number] Reading MD: Abhi Cox Interpretive Statements Pulmonary function testing was completed according to ATS criteria. Findings were considered accurate and reproducible, with exception of DLCO which did not meet ATS standards. Both pre- and post-bronchodilator values utilized for spirometry. Spirometry (based on pre-bronchodilator values): -FEV1/FVC: Normal @ 80% -FEV1: Normal @ 81% -FVC: Mildly reduced @ 73% -There is no significant bronchodilator response. Lung volumes by plethysmography: -RV: Normal @ 102% -TLC: Low normal @ 81% Diffusion capacity: -DLCO: Moderate reduction @ 63% when corrected for Hb 12.6g/d Comparison from 07/31/2022: -TLC was 80% and DLCO was 72% Impressions: -Spirometry shows a mild restrictive pattern, though lung volumes are low normal. Moderate diffusion impairment. This pattern can be seen in cardiopulmonary vascular disease, early emphysema, and interstitial lung disease. When compared to prior testing, there has been a mild decline in DLCO. Clinical correlation required. Electronically Signed On 05-13-2025 15:48:36 EDT by Abhi Cox
[2025-05-11 13:02] LABS: Hemoglobin 12.6 g/dL (14.0-18.0)
[2025-05-11] MEDS: ALBUTEROL SULFATE 2.5 MG/3 ML VIAL NEB IH (13:37)
== END 2025-05-11 12:45 | disposition home or self-care (01) ==
LOC: CARD 12:44
PROVIDERS: PCP Internal Medicine; Visit Provider Internal Medicine Interventional Cardiology
DX: R06.02 Shortness of breath (principal)
CPT/HCPCS: 85018; 94060; 94726; 94729

== ENCOUNTER 2025-09-07 14:24 | Outpatient (OUT) | payer MEDICARE, SELFPAY ==
--- OUTSIDE RECORDS SUMMARY | 2025-09-07 10:16 | XMS_ITS | Continuity of Care Document ---
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 Role Phone Cristobal Michel DO Primary Care Provider [phone] Yuliet Guerrier CMA Attending Provider Unavaila ble Cristobal Michel DO Attending Provider Care Teams Patient Care Team Team Status: Active Member Role/Relationship Status Dates Cristobal Michel DO Primary Care Provider Active Patient Care Team Team Status: Active Member Role/Relationship Status Dates Cristobal Michel DO Primary Care Provider Active Start: August 31, 2025 Yuliet Guerrier CMAAttnakul ProviderActiveStart: August 31, 2025 Patient Care Team Team Status: Inactive Member Role/Relationship Status Dates Cristobal Michel DO Primary Care Provider Active Start: September 07, 2025 End: September 07sheri Michel DOAttnakul ProviderActiveStart: September 07, 2025 End: September 07, 2025 Chief Complaint and Reason for Visit Chief Complaint Admit Date Amb Documentation August 31, 2025 8 :21am Wellness/Hosp f/u September 07, 2025 1 :25pm Reason for Visit Admit Date Anemia September 07, 2025 1 :25pm ASHD (arteriosclerotic heart disease) Oc tob2024 1:25pm Chronic bronchitis, mucopurulent September 07, 2025 1:25pm Chronic kidney disease September 07 1:25pm Decreased diffusion capacity of lung Oct sylvia2024 1:25pm Hypercholesterolemia September 07, 2025 1:25pm Hypertension September 07, 2025 1 :25pm Ischemic cardiomyopathy September 07 1:25pm Medicare annual wellness visit, subseque nt September 07, 2025 1:25pm Nicotine dependence, cigarettes, in yanira ssion September 07, 2025 1:25pm NSVT (nonsustained ventricular tachycard ia) September 07, 2025 1:25pm TALA (obstructive sleep apnea) September 072024 1:25pm Pulmonary nodule September 07, 2025 1 :25pm Type 2 diabetes mellitus with diabetic p olyneuropathy September 07, 2025 1:25pm Type 2 diabetes mellitus with hyperglyce radames September 07, 2025 1:25pm Allergies, Adverse Reactions, Alerts Allergen Type Severity Reaction Last Updated Verified Status Vsssitn-SML-GsF Reductase Inhibitor Allergy Unknown Unknown Reaction August 1:33pm Yes Active No Known Allergies Allergy Unknown September 07, 2025 1:33pmYesActive Social History Smoking Status Status Start Date End Date Date of Observa tion Ex-smoker (finding) December 09, 2019 1:55pm Observation Status Observation Response Date of Response Legal Sex Male (finding) [facility] 1949 Family History Relationship Condition Age at Onset Recorded Date/T rip mother Glaucoma Unknown OsteoporosisUnknownDementiaUnknownDeceasedUnknownfatherCoronary artery disease UnknownMalignant neoplasm of prostateUnknownDeceasedUnknownbrotherSchizophrenia UnknownMyocardial infarctionUnknown Problems Active Problems Problem Diagnosis/Recorded Date Onset Date Status C diana Medicare annual wellness vis it, subsequent July 27, 2024 7:27am Unknown Active TALA (obstructive sleep apnea)February 09, 2024 8:05amUnknownActiveType 2 diabetes mellitus with hyperglycemiaMarch 2023 8:08amUnknownActiveNicotine dependence, cigarettes, in remissionJanch 2023 5:49pmUnknownActiveType 2 diabetes mellitus with diabetic polyneuropathyMarch 2023 8:05amUnknown ActiveChronic bronchitis, mucopurulentMarch 2023 5:49pmUnknownActivePFT: mild to mod restrictive defect - 07/2022,Normal right heart pressures - 03/2025 AnemiaDecember 2023 5:33pmUnknownActiveHypercholesterolemiaDecember 2023 5:30pmUnknownActiveIschemic cardiomyopathySeptember 2024 12:41pm UnknownActiveCABG - 2014, Echo: LVEF 65%, normal RV size/function, RVSP 08/2024,Stress test: LVEF 51%, fixed inferolateral and anterior wall, reversible defect - 08/2024,LHC: 80% mid LAD, occluded RCA w/ patent grafts - 03/2025, Carotid bruitFebruary 2023 11:52pmUnknownActiveCarotid US: < 50% B/L - hronic kidney diseaseSeptember 2023 4:14pmUnknownActivePulmonary noduleApril 2023 5:13pmUnknownActiveCT: 7mm RML - 02/2023, 7mm RML - enign prostatic hyperplasia with lower urinary tract symptomsMarch 2023 5:49pmUnknownActiveDecreased diffusion capacity of lungJuly 2024 9:32pmUnknownActiveGERD (gastroesophageal reflux disease)February 09, 2024 8:04am UnknownActiveHypertensionMarch 2023 8:09amUnknownActiveLumbar spondylosis February 10, 2024 5:49pmUnknownActiveASHD (arteriosclerotic heart disease)February 09, 2024 8:03amUnknownActiveCABG - 2014, Echo: LVEF 65%, normal RV size/function, RVSP 08/2024,Stress test: LVEF 51%, fixed inferolateral and anterior wall, reversible defect - 08/2024Lumbar stenosis with neurogenic claudicationJanuary 2019 8:58amUnknownActiveNSVT (nonsustained ventricular tachycardia)December 30, 2024 1:31pmUnknownActiveHolter: 9 beat VT - 08/2024,Holter: 5 beat VT - 12/2024Inactive/Resolved Problems Problem Diagnosis/Recorded Date Onset Date Status C omments S/P cardiac catheterization March 26, 2025 1:17pm 2025 Resolved LHC: 80% mi d LAD, occluded RCA w/ patent grafts - 03/2025 Medications Medication Status Dose Units Route Directions Qty Days Refills S tart Date Stop Date End Date Reason(s) Instructions Adherence Lisinopril 10 mg tablet Discontinued 0 .ROUTE.ANGYFJJ078Mchbt 2023 1:24pmMay 2024 9:17amTAKE 1 TABLET DAILY Ranolazine 500 mg tablet extended release 12 hrDiscontinued0.ROUTE.DJZOGMI3275 March 09, 2024 1:24pmApril 2024 1:28pmTAKE 1 TABLET TWICE A DAYFlash Glucose Sensor (Freestyle Singh 14 Day Sensor) kitDiscontinued0.ROUTE.IGHNISK410 March 30, 2024 1:15pmJanuary 2024 6:43pmUSE TO TEST BLOOD SUGAR DAILY Insulin Nph And Regular Human (Novolin 70-30 Flexpen U-100) 100 unit/mL (70-30) insulin vumHnjmiyrwnbzn45YHJHSGHPFNOqlqk jtpoj55280Obiy 2023 12:00amJuly 2023 12:49pmInsulin Nph And Regular Human (Novolin 70-30 Flexpen U-100) 100 unit/mL (70-30) insulin omtTmmfjghaebpe39DHIYCULNKIYicpw hxdje973806Jwkh 2023 12:48pmJune 2024 1:01pmPen Needle, Diabetic (Bd Ultra-Fine Short Pen Needle) 31 gauge x 5/16 needleDiscontinued0.Vwivs0555Rrhn 2023 12:00am May 02, 2025 2:57pmto inject insulin dailyInsulin Nph And Regular Human (Humulin 70/30 U-100 Kwikpen) 100 unit/mL (70-30) insulin hlmMtsrkgqdepmp92CPAY SUBCUTTwice myewx641400Rcot 2023 12:00amSeptember 2023 3:39pm Azithromycin 250 mg zvlpidUiyxzctcvzas152OSQW.EXYCDLZ882Lrzwvom 2024 1:00am February 10, 2025 1:29pm2 tabs on first day followed by 1 tab on days 2-5Blood- Glucose Sensor (Freestyle Singh 2 Plus Sensor) deviceActive0.Efrfd755Ceiqzwu 2024 1:00amType 2 diabetes mellitus with hyperglycemia Type 2 diabetes mellitus with 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) use of insulinto test blood sugar dailyMetoprolol Succinate 25 mg tablet extended release 24 faAkuxiv38.8KJGLFqyst29473Jdgaslis 2024 1:00amComplies with drug therapyRanolazine 500 mg tablet extended release 12 hr Active0.ROUTE.MRNITEC3884Qihez 2024 1:28pmTAKE 1 TABLET TWICE A DAY Complies with drug therapyLisinopril 10 mg tabletDiscontinued0.ROUTE.PEOXZWP944 March 19, 2025 9:17amJuly 2024 2:43pmTAKE 1 TABLET DAILYInsulin Nph And Regular Human (Novolin 70-30 Flexpen U-100) 100 unit/mL (70-30) insulin pen Utxfirmdomhc78KOOTIPKWVMEscqh sjqbb655709Cptu 2024 12:59pmJuly 2024 2:05pmPen Needle, Diabetic 31 gauge x 5/16 needleActive0.ROUTE.SXQUTRY37993Kumk 2024 2:56pmType 2 diabetes mellitus with hyperglycemia Type 2 diabetes mellitus with hyperglycemia FPC (current) use of insulinUse to inject insulin bid Llshgikrks-Mrllfjwv-Suwrlrmikp (Breztri Aerosphere) 160-9-4.8 mcg/actuation HFA aerosol ndckovwSnjupz8HGWNYIXXQOEYGRakhr daily10.7305August 2024 12:00am Complies with drug therapyInsulin Nph And Regular Human 100 unit/mL (70-30) tnkcbjfxgcLyevnguuxdfx95 - 60UNITSUBCUTTwice dailyJanuary 2019 1:00amMarch 2023 6:03pmdiabetesBaclofen 10 mg NlazmxGoygiazoxbum71UDFNMzxge daily as needed for Muscle SpasmJanuary 2019 1:00amJanuary 2019 9:03am Rosuvastatin 5 mg ympylrYseszrhjnxlw2ZWCIIpkrm at bedtimeJanuary 2019 1:00amMarch 2023 6:00pmhyperlipidemiaAmlodipine 10 mg xdlilqZbvvtruiqdaj98 MGPOEvery morningJanuary 2019 1:00amMarch 2023 5:57pmhtnLisinopril 40 mg kqfncrYemvfsbciryq62PKHOSqdxs at bedtimeNovember 30, 2019 1:00amMarch 2023 5:59pmhtnEzetimibe 10 mg sfaqpxWnfnnkhjvjdn79MXWIPkxer at bedtime November 30, 2019 1:00amMarch 2023 5:59pmhyperlipidemiaRanolazine 500 mg tablet extended release 12 woTkbrivjuepsf065HDFEKeqzb dailyNovember 30, 2019 1:00amApril 2023 1:24pmanginaMultivitamin SruextKrsjmcotzpau2GFTIFUdwki November 30, 2019 1:00amSeptember 2023 3:39pmAspirin (Hawk Low Dose Aspirin) 81 mg Tablet,Delayed Release (Dr/Ec)Ktmbpf74ADSSXtvrm at bedtimeNovuary 2019 1:00amheartComplies with drug therapyAcetaminophen (Tylenol Extra Strength) 500 mg DmgswoQuupdx8963KCCWQcccr daily as needed for PainNovember 30, 2019 1:00amComplies with drug therapyAscorbic Acid (Vitamin C) (Vitamin C) 500 mg GenwdlLetxsbtbptpg134KHTOQhledWmrtnea 2019 1:00amMarch 2024 1:31pmCalcium Carbonate-Vitamin D3 (Calcium 600 + D(3)) 600 mg calcium- 200 unit WmzmozcKgavpd6QHSJHNgmcdGjheoaz 2019 1:00amsupplementComplies with drug therapyCyclobenzaprine 10 mg inxwkmPshyengeklkd81YCEGCzkgo times daily as needed for back gjyhyw759Kavywxc2019 1:00amMarch 2023 5:58pm Sulfamethoxazole-Trimethoprim (Bactrim Ds) 800-160 mg QkijanKfgdnlhvates8PSCJG N82E44039UhmdzrkDecember 11, 2019 1:00amMarch 2023 6:00pmPrednisone 10 mg tablets,dose obwfYvjqgbvaodps2creo pkPOper package tgpxogzkci189Qaeyqoh 24th, 2020 1:00amMarch 2023 6:00pmtake 4 tabs for 3 days then take 3 tabs for 3 days then take 2 tabs for 3 days then take 1 tab for 3 daysOxycodone 5 mg capsuleDiscontinued5 - 74BVJCM7L as needed for hmrw8238Nkrqoxx 2019March 2023 6:00pmSpinal stenosis of lumbar region with neurogenic claudication Spinal stenosis, lumbar region with neurogenic claudicationInsulin Nph And Regular Human 100 unit/mL (70-30) yqqlmahxeeDiovpyqbytva80EBUKCVASQYZodvg daily February 10, 2024 5:59pmJuly 2023 12:47pmdiabetesPregabalin (Lyrica) 25 mg bkocfabHiqcsakmbfyf12QVTCYlydl daily as neededSept2023 12:00am November 12, 2024 5:67ob6-9 tabletsAlfuzosin 10 mg tablet extended release 24 gxZepaoz17PFDUYtqnXsbutyup 2023 1:00amComplies with drug therapy Levofloxacin 750 mg wvgfoxVkwanfuadxae238UBCXGaatd445Habqrduu 2023 1:00am November 20, 2024 2:23pmLisinopril 5 mg hrzwcdKyutta5KRHAWlara997Xoix 2024 2:43pmComplies with drug therapyInsulin Nph And Regular Human (Novolin 70-30 Flexpen U-100) 100 unit/mL (70-30) insulin zfaQscgmh2HDKCHOBtxwj dfjjs553670Zbsu 2024 2:03pmsubcutaneously twice daily; 40 units q am and 20 units q pm Complies with drug therapyAmlodipine 5 mg httfjoVyyxcmoyrato0RYUPPkvygGlgsv 2023 12:00amMarch 2023 10:26amLisinopril 10 mg fyvtnyGrhboddwramj06 MGPODailyUniversity Hospitals [facility] 2023 12:00amApril 2023 1:24pmAlpha Lipoic Acid 200 mg rmdxjohTgywwb769HCVJVvuyb dailyUniversity Hospitals [facility] 2023 12:00amComplies with drug therapyTestosterone (Androgel) 20.25 mg/1.25 gram (1.62 %) gel in metered-dose ttcaUwlmyc7RGJAPMWHTPGINRQudhlVylnz 2023 12:00amskin in the morning to shoulder, upper arms or abdomenComplies with drug therapyTadalafil 5 mg tablet Vsgvgy8LJXCDhrhc as neededFebruary 10, 2024 12:00amComplies with drug therapy Loratadine 10 mg nafmuoZrwwbm74SMUETtxnaVfrqp 2023 12:00amComplies with drug therapyEzetimibe 10 mg rocjdcQpkkxz75DJTUGcotiHfubd 2023 12:00am Complies with drug therapyEvolocumab (Repatha Syringe) 140 mg/mL syringeActive 140MGSUBCUTevery monthUniversity Hospitals Tri[facility] 2023 12:00amComplies with drug therapy Amlodipine 5 mg ywzyvjSjedtplljjvb83GOLCRdlxyBphob 2023 10:26amSeptember 2023 3:27pmGabapentin 300 mg bcwcpiqNxviuchbzoxw629BGJQRicgs at bedtime February 11, 2024 12:00amSeptember 2023 3:38pmAmlodipine 5 mg tabletActive5 MGPODailySeptverde valley medical center 2023 3:27pmComplies with drug therapyFlash Glucose Sensor (Freestyle Singh 14 Day Sensor) kitDiscontinued0.RouteMay 2023 12:00amMay 2023 1:15pmAs directedMecobalamin (Vitamin B12) 1,000 mcg tablet,ptpmvumqCkmnwp2465DIEQAWevhuNvjvy 2024 12:00amComplies with drug therapy Immunizations Immunization Event Date Not Given Reason 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 Number Reason(s) Given Vaccine Information Statement (VIS) Detail Administration Location COVID-19 mRNA, Comirnaty ([employer]) December 20, 2020 COVID-19 mRNA, Comirnaty ([employer])January 10OVID-19 mRNA, Comirnaty ([employer])August 11, 2021influenza, unspecified formulationDecember 2014 influenza, unspecified formulationNovember 2015influenza, unspecified formulationSeptember 2016influenza, unspecified formulationDecember 2017influenza, unspecified formulationOctober 2018influenza, unspecified formulationSeptember 2019influenza, unspecified formulationOctober 2020influenza, unspecified formulationOctober neumococcal Conjugate Vaccine, 13 valentNovember 2014Pneumococcal Polysacc. Vaccine, 23 valent November 07, 2012Shingles (Zoster)August 12, 2020 Vital Signs Vital Reading Result Reference Range Collection Date/Time Height 72 [in_i] September 07, 2025 1:96rxEsykrh512.46 kgOctober 2024 1:33pmHeart Rate62 /srm15-728Mnnltom 21st, 2025 1:33pmRespiratory rate12 /iai82-17Hadmnot 2024 1:33pmBP Rdixeoxx992 mm[Hg]100-140Oct2024 1:33pmBP Qoyrmvcwr73 mm[Hg]60-100October 2024 1:33pmBMI (Body Mass Index)31.5 kg/s7Cokawjp 2024 1:33pm Advance Directives Advance Directive Response Recorded Date/ Time Advance Directives No November 23, 2019 10:54am Insurance Providers Guarantor Max Pineda Address [address] [address]Contact Info.Home Phone: Coverage Status Update:2024 Payer Group Member ID Coverage Type Subscriber Relationship to Subscriber Effective Date Expiration Date MMO Id: [id number] E Claus Id: [id number] [address] [address] Home Phone: Email: [email or web address] E Claus Id: [id number] [address] [address] Home Phone: Email: [email or web address] E Claus Id: [id number] [address] [id number] Home Phone: Email: [email or web address] Co [email or web address] E Claus Id: [id number] [address] [facility] [address] Home Phone: Email: [email or web address] Encounters Encounter Location(s) Arrival/Admit Date Discharge/Departure Date Discharge/Departure Disposition Provider(s) Non-patient / Non-visit -[facility] Octob er 2024 8:21am Yuliet Guerrier CMADeparted Physician/Provider [facility] 1:25pmOctober 2024 2:15pmDischarged to home care or self care (routine discharge)Cristobal Michel DO Recent Diagnosis Onset Date Admit Date Anemia Unknown September 07 1:25pm ASHD (arteriosclerotic heart disease) Unknown September 07, 2025 1:25pm Chronic bronchitis, mucopurulent Unknown September 07, 2025 1:25pm Chronic kidney disease Unknown August 192024 1:25pm Decreased diffusion capacity of lung Unknown September 07, 2025 1:25pm Hypercholesterolemia Unknown August 1:25pm Hypertension Unknown September 07 1:25pm Ischemic cardiomyopathy Unknown September 07, 2025 1:25pm Medicare annual wellness visit, subsequent Unkno wn September 07, 2025 1:25pm Nicotine dependence, cigarettes, in remission Un known September 07, 2025 1:25pm NSVT (nonsustained ventricular tachycardia) Unkn own September 07, 2025 1:25pm TALA (obstructive sleep apnea) Unknown Oc tober 2024 1:25pm Pulmonary nodule Unknown September 07, 2 025 1:25pm Type 2 diabetes mellitus wit h diabetic polyneuropathy Unknown September 07, 2025 1:25pm Type 2 diabetes mellitus with hyperglycemia Unkn own September 07, 2025 1:25pm Assessments Diagnosis Onset Date Resolution Status Admit Date Anemia acuteOctober 2024 1:25pmASHD (arteriosclerotic heart disease)acuteOctober 2024 1:25pmChronic bronchitis, mucopurulentacuteOctober 2024 1:25pm Chronic kidney diseaseacuteOctober 2024 1:25pmDecreased diffusion capacity of lungacuteOct2024 1:25pmHypercholesterolemiaacuteOct2024 1:25pmHypertensionacuteOct2024 1:25pmIschemic cardiomyopathy acuteOct2024 1:25pmMedicare annual wellness visit, subsequentacute September 07, 2025 1:25pmNicotine dependence, cigarettes, in remissionacute September 07, 2025 1:25pmNSVT (nonsustained ventricular tachycardia)acuteOct2024 1:25pmOSA (obstructive sleep apnea)acuteSeptember 07, 2025 1:25pm Pulmonary noduleacuteSeptember 07, 2025 1:25pmType 2 diabetes mellitus with diabetic polyneuropathyacuteSeptember 07, 2025 1:25pmType 2 diabetes mellitus with hyperglycemiaacuteSeptember 07, 2025 1:25pm Plan of Treatment Author Cristobal Michel [facility] HospitalAuthoredOctober 2024 1:33pmThis patient is stable without activity related chest pain, dyspnea or lightheadedness. I instructed them to continue exercise at least 3x weekly and consume a low salt, low fat, high fiber diet. I instructed them to continue secondary prevention measures in reducing risks for recurrent events. CABG - 2014, Echo: LVEF 65%, normal RV size/function, RVSP 31 - 08/2024, Stress test: LVEF 51%, fixed inferolateral and anterior wall, reversible defect - 08/2024 LHC: 80% mid LAD, occluded RCA w/ patent grafts - 03/2025 Continue ASA, Repatha, without interruption I have instructed this patient to follow a comprehensive diabetic treatment plan. I have also instructed them to check their feet daily for calluses and nonhealing ulcers. I have instructed them to have a yearly dilated eye examination. I have reviewed their treatment goals: SBP less than 130, LDL less than 100, FBS less than 140, A1C less than 7%. I have instructed them to maintain a home BS log and bring the results to each of their office visits for review. I have explained the importance of routine monitoring of their A1C, Microalbumin and Lipids. I have explained the benefits of well controlled diabetes in preventing micro and macrovascular complications. Continue Humulin 70/30 without interruption - dose adjust to prevent night time and hospice home health aide hypoglycemia - 40u am / 20u pm latest A1C 7.0% Mar, 2025 I have instructed the patient to inspect their feet daily for cuts and calluses. I have recommended shoes and inserts to prevent callus formation. I have reviewed fall precautions. Intolerant to Lyrica and stopped Denies CP, palpitations or lightheadedness Echo: normal LVEF, normal RV size/function, RVSP 31, no valve disease - 08/2024 Stress test: low normal LVEF, fixed defect anterior and inferolateral tavares w/o reversible defect LHC: 80% mid LAD, occluded RCA w/ patent grafts - 03/2025 RHC: normal pressures - 03/2025 Holter: 9 beat VT - 08/2024, Holter: 5 beat VT - 12/2024 Initiated on Metoprolol Avoid stimulants and hydrate. f/u Cardiology, refer to EPS I instructed this patient on the benefits of adequate control of hypertension and diabetes, if appropriate. I have also instructed them to avoid use of NSAIDs due to the adverse effects on renal function. I instructed them on adequate fluid balance and to consume at least 48 oz of fluids daily. I also instructed them to monitor for an unexplained increase in weight and lower extremity edema. They have been instructed to notify the office for any changes or concerns. I have instructed this patient to consume a healthy, low-fat, low-salt diet. I have also encouraged them to continue exercise with weight loss to achieve/maintain a BMI < 30. I have instructed this patient on the correct procedure for obtaining home BP measurements:? - rest for 5 minutes w/o talking. - positioned w/ feet on floor and arms supported. - average best 2/3 readings w/ goal < 135/85. - update office w/ home readings in 2 weeks. Continue Lisinopril and Amlodipine without interruption This patient is aware of the benefits associated with TALA: With continued use, the patient reduces the risk for [place], CVA, HTN, cardiac dysrhythmias and sudden cardiac deaths. The patient is also aware of the association between TALA and morning headaches, daytime somnolence, fatigue and obesity, which also has been improved with continued use. The patient is compliant with treatment, wearing the equipment every night for greater than 4 hours. The patient is instructed to continue use of the CPAP for TALA treatment. Continue annual surveillance CT scans CT: 7mm RML - 02/2023, 7mm RML - 08/2024 No ER/hosp visits for acute exacerbation. PFT: mild to mod restrictive defect - 07/2022, 04/2025 - low normal spirometry results - no bronchodilator response - low normal TLC - decreased DLCO Normal right heart pressures - 03/2025 Trial of Beztri for symptomatic improvement in breathlessness. I have instructed this patient on a low fat, high fiber diet and exercise. I have discussed the primary and secondary prevention benefits attributed to lowering LDL cholesterol. I have also discussed the medical treatment of elevated cholesterol, which is based on the 10 year ASCVD risk. Continue Repatha without interruption No s/s GIB Last colonoscopy completed 11/2020 No EGD completed Recommend checking CBC, FA, Fe, B12 This patient has been encouraged to continue abstinence. They are aware of the hazards associated with tobacco use, including but not limited to respiratory infections, vascular disease and cancers. He is not a candidate for yearly LDCT chest for lung cancer screening. Quit smoking 1982 1 PPD from age [age] PFT: 04/2025 - low normal spirometry results - no bronchodilator response - low normal TLC - decreased DLCO Psat% 94% RA I have instructed this patient on the recommended lifestyle changes, which includes a low fat, high fiber diet along with a regular exercise routine. I have also reviewed the recommended age-appropriate preventive testing for this patient. I have also reviewed the recommended vaccines for their age and risk factors. Future Tests Future scheduled test information is unavailable Pending Tests Test Name Ordered Date Scheduled Date CT chest wo con September 07, 2025 2:06pm Comprehensive Metabolic PanelOct2024 2:01pm Future Visits Future appointment information is unavailable Future Procedures Procedure Name Ordered Date Scheduled Date A1C with Estimated Average Glu September 07 2:01pm Vitamin N86Butcpgb2024 2:01pmBasic Metabolic PanelOct2024 1:52pmComplete Blood Count Auto DiffOct2024 2:01pmFerritinOct2024 2:01pmFolateOctober 2024 2:01pmLipid PanelOct2024 2:01pmMicroAlb Creat Ratio,UOct2024 2:01pm Future Medications Future medication information is unavailable Patient Instructions Patient instructions are unavailable
--- OUTSIDE RECORDS SUMMARY | 2025-09-07 14:34 | XMS_ITS | CCD ---
Author Organization [facility] Care Team Providers Care Chairman Of The Board Name Role Phone LUPIS DENNIS Admitting Unavailable [...] Care Unavailable MISC, DR MOSLEY Consulting Unavailable Cristobal Kearns MD Primary Care Provider JULIETH CLARK Attending Unavailable JOSEPH NUNEZ Attending Unavailable JOSEPH NUNEZ Attending Unavailable John Cannon Admitting Unavailable John Cannon Attending Unavailable SOM, CRISTOBAL Referring Unavailable SOM, CRISTOBAL Referring Unavailable Margareth De La Cruz Attending Unavailable BALL, CRISTOBAL Referring Unavailable De La Cruz, Margareth Admitting Unavailable De La Cruz, Margareth Attending Unavailable De La Cruz, Margareth Admitting Unavailable BALL, CRISTOBAL Referring Unavailable De La Cruz, Margareth Attending Unavailable John Cannon. Attending Unavailable Cannon, Lopez A. Admitting Unavailable BALL, CRISTOBAL Referring Unavailable De La Cruz, Margareth Admitting Unavailable BALL, CRISTOBAL Referring Unavailable De La Cruz, Margareth Attending Unavailable De La Cruz, Margareth Admitting Unavailable BALL, CRISTOBAL Referring Unavailable De La Cruz, Margareth Attending Unavailable Davis, John A. Attending Unavailable Davis, Lopez A. Admitting Unavailable BALL, CRISTOBAL Referring Unavailable De La Cruz, Margareth Admitting Unavailable BALL, CRISTOBAL Referring Unavailable De La Cruz, Margareth Attending Unavailable Davis, John A. Attending Unavailable John Cannon A. Referring Unavailable Davis, Lopez A. Attending Unavailable Davis, Lopez A. Referring Unavailable John Cannon A. Attending Unavailable John Cannon A. Referring Unavailable Davis, Lopez A. Attending Unavailable Davis, Lopez A. Referring Unavailable John Cannon ABryan Attending Unavailable John Canonn ABryan Referring Unavailable John Cannon A. Admitting Unavailable Cristobal Kearns DO Primary Care Provider [phone] Cristobal Kearns DO Attending Provider Moi Moss MD, V Attending Provider DIONY ARIZA Attending Unavailable DIONY ARIZA Attending Unavailable MOUKAMALLORY, MOI Attending Unavailable MOUKARBEL, MOI Admitting Unavailable MOUKARBEL, MOI Referring Unavailable MOUKARBEL, MOI Attending Unavailable JOSEPHFRANKO Attending Unavailable MOUKARBEL, MOI Referring Unavailable MOUKARBEL, MOI Attending Unavailable MOUKARBEL, MOI Attending Unavailable MOUKARBEL, MOI Attending Unavailable SAVZYANMORENITA Attending Unavailable SOM CRISTOBAL E Primary Care Unavailable LAYNE GRANT Admitting Unavailable LUCEROYOLA Attending Unavailable Allergies Allergy ClassificationReported Allergen(s)Allergy TypeDate of OnsetReaction(s) Facility (4 sources)black walnut pollen extract; Translations: [ICOSPDD-ZHO-VTO REDUCTASE INHIBITORS]Drug Bhznrbq46-64-8077Vtc [facility] (20 sources)HMG-CoA reductase inhibitor; Translations: [statins]Drug allergy 33-14-8252[facility] ([facility])hydrALAZINE; Translations: [hydralazine]Drug Zjzqzar12-33-1332Mrccd, [facility]ations[facility] (12 sources)pregabalin; Translations: [pregabalin]Drug Mbtyawm91-74-9656Pursyjrg [facility] (9 sources)PregabalinAllergy to uvecrhmap94-80-1335HoythsbjKLBW [facility] (1 source)Wrcylkp-GNS-JfW Reductase InhibitorAllergy to ylayrxdci83-72-0792 Unknown ReactionChillicothe Hospital Medications Current Medications MedicationDrug Class(es)DatesSig (Normalized)Sig (Original)acetaminophen 500 mg oral tablet (20 sources)Start: 79-61-0687yvqb 3 tablets by mouth twice daily as needed for painAcetaminophen (Tylenol Extra Strength) 500 mg Tablet Active 1500 MG PO Twice daily as needed for Pain November 30, 2019 1:00am Complies with drug therapy Start: 41-10-7990Xjtvgva 500 mg, PRN as needed for pain, Refills(s) 0 Start Date: 03/25/13 Status: Ordered Repeat number: 1Start: 30-26-7124Osrxdjo 500 mg, PRN as needed for pain, Refills(s) 0 Start Date: 03/25/13 Status: OrderedStart: 37-66-2294Solricy 500 mg, PRN PRN as needed for pain, Refills(s) 0 Start Date: 03/25/13 Status: Orderedtake 1 tablet by mouth every six hoursacetaminophen (Tylenol Extra Strength) 500 MG tablet 500 mg every 6 (six) hours Ojgszq47 hr alfuzosin hydrochloride 10 mg extended release oral tablet (12 sources)alpha-Adrenergic BlockerStart: 75-04-1832qqqz 1 tablet by mouth once dailyUroxatral 10 mg Tab-ER 10 mg = 1 tab(s), Oral, Daily, # 30 tab(s), Refills(s) 0 Start Date: 02/22/25 Status: Ordered Quantity: 30.0 Unit: tab(s) Repeat number: 1Start: 37-01-5624pgfb 1 tablet by mouth every twenty-four hours Alfuzosin 10 mg tablet extended release 24 hr Active 10 MG PO Once November 05, 2024 1:00am Complies with drug therapyAlpha Lipoic Acid 600 mg oral capsule (20 sources)Start: 27-21-9028qrhj 1 capsule by mouth once dailyAlpha Lipoic Acid 600 mg oral capsule 600 mg = 1 cap(s), Oral, Daily, Refills(s) 0 Start Date: 10/05/21 Status: Ordered Repeat number: 1Start: 68-88-9850jkki 1 capsule by mouth once dailyAlpha Lipoic Acid 600 mg oral capsule 600 mg = 1 cap(s), Oral, Daily, Refills(s) 0 Start Date: 10/05/21 Status: OrderedamLODIPine 5 mg oral tablet (20 sources)Dihydropyridine Calcium Channel BlockerStart: 37-25-3036rdhy 1 tablet by mouth once dailyAmlodipine 5 mg tablet Active 5 MG PO Daily July 29, 2024 3:27pm Complies with drug therapyStart: 02-11-2024 End: 07-58-1748lggm 2 tablets by mouth once dailyAmlodipine 5 mg tablet Discontinued 10 MG PO Daily February 11, 2024 10:26am July 29, 2024 3:27pm Start: 05-18-2020 End: 83-68-2423iomz 1 tablet by mouth once dailyAmlodipine 5 mg tablet Discontinued 5 MG PO Daily February 10, 2024 12:00am February 11, 2024 10:26am Start: 74-74-9967dcze 20 mg by mouth once dailyNorvasc 20 mg, Oral, Daily, Refills(s) 0 Start Date: 05/18/20 Status: OrderedStart: 11-30-2019 End: 10-68-2730poey 1 tablet by mouth once daily in the morningAmlodipine 10 mg tablet Discontinued 10 MG PO Every morning November 30, 2019 1:00am February 10, 2024 5:57pmAntibiotic (8 sources)Start: 91-27-7559Eetilmkasv Antibiotic Start Date: 09/06/23 Status: Orderedaspirin 81 mg delayed release oral tablet (20 sources)Platelet Aggregation Inhibitor, Nonsteroidal Anti-inflammatory Drug Start: 01-32-8329Xqizdge (Hawk Low Dose Aspirin) 81 mg Tablet,Delayed Release (Dr/Ec) Active 81 MG PO Daily at bedtime November 30, 2019 1:00am Complies with drug therapyStart: 30-20-5313hfptvxg 81 mg, Daily, Refills(s) 0 Start Date: 03/25/13 Status: Ordered Repeat number: 1Start: 48-69-9573skyanzr 81 mg, Daily, Refills(s) 0 Start Date: 03/25/13 Status: Orderedtake 1 tablet by mouth every twenty-four hoursAspirin 81 MG 1 tablet Orally Once a day Activebaclofen 5 mg oral tablet (11 sources)gamma-Aminobutyric Acid-ergic AgonistStart: 50-85-5155srwm 1 tablet by mouth three times daily as needed for muscle spasmsbaclofen 5 mg oral tablet 5 mg = 1 tab(s), Oral, TID, PRN Spasm, # 30 tab(s), Refills(s) 0, Pharmacy: [facility]/pharmacy #[id number], 183, cm, 02/14/24 13:46:00 EDT, Height/Length Dosing, 110.3, kg, 02/14/24 13:46:00 EDT, Weight Dosing Start Date: 02/14/24 Status: Ordered Start: 11-30-2019 End: 62-88-8297bvlo 1 tablet by mouth twice daily as needed for muscle spasms Baclofen 10 mg Tablet Discontinued 10 MG PO Twice daily as needed for Muscle Spasm November 30, 2019 1:00am December 11, 2019 9:03amBlood-Glucose Sensor (Freestyle Singh 2 Plus Sensor) device (2 sources)Start: 11-61-7618Twjva-Glucose Sensor (Freestyle Singh 2 Plus Sensor) device Active 0 .Route 2 November 30, 2024 1:00am to test blood sugar daily Calcium + D 315-200 MG-UNIT (15 sources)take 1 tablet by mouth twice dailyCalcium + D 315-200 MG-UNIT 1 tablet Orally Twice a day ActiveCalcium Carb-Cholecalciferol (CALCIUM 500 +D PO) (5 sources)Calcium Carb-Cholecalciferol (CALCIUM 500 +D PO) Take by mouth Active calcium carbonate 1500 mg oral tablet (20 sources)Start: 92-16-7102sxep 1 tablet by mouth once dailycalcium (as carbonate) 600 mg oral tablet 600 mg = 1 tab(s), Oral, Daily, Refills(s) 0 Start Date: 05/18/20 Status: Ordered Repeat number: 1calcium carbonate 1500 mg / cholecalciferol 200 unt oral capsule (2 sources)Vitamin DStart: 58-88-3368fhfp 1 tablet by mouth once dailyCalcium Carbonate-Vitamin D3 (Calcium 600 + D(3)) 600 mg calcium- 200 unit Capsule Active 1 TAB PO Daily November 30, 2019 1:00am Complies with drug therapyCV[facility] - (5 sources)[facility] - as directed Orally Activediclofenac sodium 10 mg/ml topical cream (4 sources)Nonsteroidal Anti-inflammatory DrugStart: 56-02-0794vbkvcyvjll sodium 1% topical cream Refill(s) 0 Start Date: 10/05/21 Status: Ordereddutasteride 0.5 mg oral capsule (11 sources)5-alpha Reductase InhibitorStart: 62-02-8268kbxx 1 capsule by mouth once daily in the morningdutasteride 0.5 mg Cap 0.5 mg = 1 cap(s), Oral, Daily, TAKE 1 CAPSULE BY MOUTH IN THE MORNING StartDate: 10/13/24 Status: Ordered Repeat number: 11 ml evolocumab 140 mg/ml prefilled syringe (20 sources)PCSK9 InhibitorStart: 95-36-8179Qicrvkwklb (Repatha Syringe) 140 mg/mL syringe Active 140 MG SUBCUT every month February 10, 2024 12:00am Complies with drug therapyStart: 05-60-2883mxsgjs 140 mg by subcutaneous injection every other weekRepatha 140 mg/mL subcutaneous solution SubCutaneous, q2wk, Refills(s) 0 Start Date: 10/05/21 Status: Ordered Repeat number: 1ezetimibe 10 mg oral tablet (20 sources)Dietary Cholesterol Absorption InhibitorStart: 11-30-2019 End: 59-43-6949zbge 1 tablet by mouth once dailyEzetimibe 10 mg tablet Active 10 MG PO Daily February 10, 2024 12:00am Complies with drug therapyFreeStyle Singh 14 Day [place] - (15 sources)FreeStyle Singh 14 Day [place] - as directed ActiveFreeStyle Singh 14 Day Sensor - (15 sources)FreeStyle Singh 14 Day Sensor - USE TO TEST BLOOD SUGAR DAILY for 28 ActiveFreeStyle Singh 14 Day Sensor - as directed Activegabapentin 300 mg oral capsule (14 sources)Anti-epileptic AgentStart: 97-55-4946bbml 1 capsule by mouth twice dailygabapentin 300 mg Cap 300 mg = 1 cap(s), Oral, BID, # 60 cap(s), Refills(s) 0, Pharmacy: [facility]/pharmacy #[id number], 183, cm, 02/14/24 13:46:00 EDT, Height/Length Dosing, 110.3, kg, 02/14/24 13:46:00 EDT, Weight Dosing Start Date: 02/14/24 Status: OrderedStart: 12-16-2023 End: 16-78-5168yyyi 1 capsule by mouth once daily at bedtimeGabapentin 300 mg capsule Discontinued 300 MG PO Daily at bedtime February 11, 2024 12:00am July 29, 2024 3:38pmStart: 96-16-3988pmcy 1 capsule by mouth at bedtime gabapentin 100 mg Cap 100 mg = 1 cap(s), Oral, Bedtime, # 30 cap(s), Refills(s) 0, Pharmacy: [facility]/pharmacy #[id number], 182.9, cm, 11/08/22 15:17:00 EST, Height/Length Dosing, 113.4, kg, 12/29/21 13:07:00 EST, Weight Dosing Start Date: 11/08/22 Status: Orderedinsulin isophane, human 100 unt/ml injectable suspension (6 sources)insulin NPH, Isophane, (HumuLIN N,NovoLIN N) 100 UNIT/ML injection Inject under the skin 2 (two) times a day before meals ActiveInsulin Nph And Regular Human (20 sources)InsulinStart: 88-48-1295Nwjheqd Nph And Regular Human (Novolin 70-30 Flexpen U-100) 100 unit/mL (70-30) insulin pen Active 0 SUBCUT Twice daily 120 90 June 07, 2025 2:03pm subcutaneously twice daily; 40 units q am and 20 units q pm Complies with drug therapyStart: 04-28-2025 End: 94-26-0473Qavvyxc Nph And Regular Human (Novolin 70-30 Flexpen U-100) 100 unit/mL (70-30) insulin pen Discontinued 60 UNIT SUBCUT Twice daily 120 90 April 28, 2025 12:59pm June 07, 2025 2:05pmStart: 06-15-2024 End: 32-72-0429Jqhrgiw Nph And Regular Human (Humulin 70/30 U-100 Kwikpen) 100 unit/mL (70-30) insulin pen Discontinued 60 UNIT SUBCUT Twice daily 108 90 June 15, 2024 12:00am July 29, 2024 3:39pmStart: 05-25-2024 End: 11-51-1190Dofubzl Nph And Regular Human (Novolin 70-30 Flexpen U-100) 100 unit/mL (70-30) insulin pen Discontinued 60 UNIT SUBCUT Twice daily 108 90 May 25, 2024 12:48pm April 28, 2025 1:01pmStart: 25-59-5357Etrjxdm Nph And Regular Human (Novolin 70-30 Flexpen U-100) 100 unit/mL (70-30) insulin pen Active 60 UNIT SUBCUT Twice daily 108 90 May 25, 2024 12:48pmStart: 05-25-2024 End: 57-84-9930Vaotroq Nph And Regular Human (Novolin 70-30 Flexpen U-100) 100 unit/mL (70-30) insulin pen Discontinued 60 UNIT SUBCUT Twice daily 36 May 25, 2024 12:00am May 25, 2024 12:49pmStart: 11-30-2019 End: 59-24-5045Zrixlul Nph And Regular Human 100 unit/mL (70-30) suspension Discontinued 60 UNIT SUBCUT Twice daily February 10, 2024 5:59pm May 25, 2024 12:47pmStart: 45-27-2011Ahtsfdc 70/30 25-10 units, BIDAC, Refill(s) 0 Start Date: 03/25/13 Status: Ordered Repeat number: 1Start: 25-37-2068Bunvsax 70/30 25- 10 units, BIDAC, Refill(s) 0 Start Date: 03/25/13 Status: OrderedStart: 03-25-2013 Humulin 70/30 55-60 units, BIDAC, Refill(s) 0 Start Date: 03/25/13 Status: Ordered HumuLIN 70/30 (70-30) 100 UNIT/ML INJECT 60 UNITS UNDER THE SKIN BEFORE BREAKFAST AND EVENING MEAL ActiveHumuLIN 70/30 (70-30) 100 UNIT/ML as directed Subcutaneous Activelisinopril 5 mg oral tablet (20 sources)Angiotensin Converting Enzyme InhibitorStart: 18-13-1746gtdo 1 tablet by mouth once dailyLisinopril 5 mg tablet Active 5 MG PO Daily June 06, 2025 2:43pm Complies with drug therapyStart: 03-09-2024 End: 06-52-0181Ycwfwzaywa 10 mg tablet Discontinued 0 .ROUTE .COMPLEX 90 March 19, 2025 9:17am June 06, 2025 2:43pm TAKE 1 TABLET DAILYStart: 02-10-2024 End: 77-65-0391dcds 1 tablet by mouth once dailyLisinopril 10 mg tablet Discontinued 10 MG PO Daily February 10, 2024 12:00am March 09, 2024 1:24pm Start: 11-30-2019 End: 81-52-4753etzx 1 tablet by mouth once daily at bedtimeLisinopril 40 mg tablet Discontinued 40 MG PO Daily at bedtime November 30, 2019 1:00am February 10, 2024 5:59pmStart: 92-32-0600wxfcwcpkat 10 mg, Daily, Refills(s) 0 Start Date: 03/25/13 Status: Ordered Repeat number: 1Start: 42-91-1798oagcyehkcg 10 mg, Daily, Refills(s) 0 Start Date: 03/25/13 Status: Orderedloratadine 10 mg oral capsule (20 sources)Start: 01-60-4639dpkx 1 capsule by mouth once dailyloratadine 10 mg oral capsule 10 mg = 1 cap(s), Oral, Daily, # 10 cap(s), Refills(s) 0 Start Date: 08/03/24 Status: Ordered Quantity: 10.0 Unit: cap(s) Repeat number: 1Start: 76-94-8652kvty 1 tablet by mouth once dailyLoratadine 10 mg tablet Active 10 MG PO Daily February 10, 2024 12:00am Complies with drug therapymecobalamin 1 mg chewable tablet (2 sources)Start: 87-13-6531bttt 1 tablet by mouth once dailyMecobalamin (Vitamin B12) 1,000 mcg tablet,chewable Active 1000 MCG PO Daily February 10, 2025 12:00am Complies with drug hr metoprolol succinate 25 mg extended release oral tablet (11 sources)beta-Adrenergic BlockerStart: 68-65-5018agrtmrqbvr succinate 25 mg ER Tab 12.5 mg = 0.5 tab(s), Oral, Daily, Refills(s) 0 Start Date: 01/12/25 Status: Ordered Repeat number: 1Start: 94-11-4791ecna 2 tablets by mouth once dailyMetoprolol Succinate 25 mg tablet extended release 24 hr Active 12.5 MG PO Daily December 30, 2024 1:00am Complies with drug therapymetoprolol tartrate (Lopressor) 25 MG tablet Take by mouth 2 (two) times a day Pknlfb98 hr mirabegron 50 mg extended release oral tablet (9 sources)beta3-Adrenergic AgonistStart: 68-92-9379fvza 1 tablet by mouth once dailyMyrbetriq 50 mg oral tablet, extended release 50 mg = 1 tab(s), Oral, Daily, Refills(s) 0 Start Date: 02/22/25 Status: Ordered Repeat number: 1Misc Medication (16 sources)Start: 11-71-6188Iuio Medication CBD 250 Topical Cream, as needed Start Date: 08/03/24 Status: Ordered Repeat number:1Start: 87-12-2869Mtjt Medication CBD 250 Topical Cream, as needed Start Date: 08/03/24 Status: Ordered Start: 53-52-8547Bkzb Medication CBD Gummies Start Date: 08/03/24 Status: Ordered Multiple Vitamins-Minerals ([facility] PO) (5 sources)Multiple Vitamins-Minerals ([facility] PO) Take by mouth Activepregabalin 25 mg oral capsule (10 sources)Start: 03-27-2024 End: 09-65-5027ofxz 1-2 capsules by mouth twice dailyLyrica 25 mg Cap See Instructions, 1-2 cap(s) Oral BID, # 120 cap(s), Refills(s) 0, Pharmacy: [id number], 183, cm, 10/13/24 14:06:00 EST, Height/Length Dosing, 104.3, kg, 10/13/24 14:06:00 EST, Weight Dosing Start Date: 10/14/24 Status: Ordered PreserVision AREDS (20 sources)Start: 84-35-5234iskz 1 capsule by mouth once dailyPreserVision AREDS 1 cap(s), Oral, Daily, Refill(s) 0 Start Date: 10/05/21 Status: Ordered Repeat number: 1Start: 95-36-9534gzaf 1 capsule by mouth once dailyPreserVision AREDS 1 cap(s), Oral, Daily, Refill(s) 0 Start Date: 10/05/21 Status: Zhslhza51 hr ranolazine 500 mg extended release oral tablet (20 sources)Anti-anginalStart: 03-09-2024 End: 43-64-3390Josaybkhsw 500 mg tablet extended release 12 hr Active 0 .ROUTE .COMPLEX 180 March 03, 2025 1:28pm TAKE 1 TABLET TWICE A DAY Complies with drug therapyStart: 14-65-7207Bgdgeiuewj 500 mg tablet extended release 12 hr Active 0 .ROUTE .COMPLEX 180 March 09, 2024 1:24pm TAKE 1 TABLET TWICE A DAY Start: 11-30-2019 End: 02-41-2464blyu 1 tablet by mouth twice dailyRanolazine 500 mg tablet extended release 12 hr Discontinued 500 MG PO Twice daily November 30, 2019 1:00am March 09, 2024 1:24pmtake 1 tablet by mouth every twelve hours in the morningranolazine (Ranexa) 500 MG 12 hr tablet Take 1 tablet by mouth in the morning and 1 tablet before bedtime. Activetadalafil 5 mg oral tablet (20 sources)Phosphodiesterase 5 InhibitorStart: 27-04-7552uwna 1 tablet by mouth once daily as neededTadalafil 5 mg tablet Active 5 MG PO Daily as needed February 10, 2024 12:00am Complies with drug nosllfd67 actuat testosterone 20.25 mg/actuat topical gel (20 sources)AndrogenStart: 43-01-8733Ovdkmktioevq 1.62 % gel PLACE 2 PUMPS ON THE SKIN ONCE EVERY MORNING 02/10/2024 ActiveStart: 90-47-3411Xexwyjvmploo (Androgel) 20.25 mg/1.25 gram (1.62 %) gel in metered-dose pump Active 1 PUMP TRANSDERML Daily February 10, 2024 12:00am skin in the morning to shoulder, upper arms or abdomen Complies with drug therapyStart: 34-47-9744btetczogryzp 2% transdermal cream See Instructions, apply topically daily, Refills(s) 0 Start Date:12/12/22 Status: Ordered Repeat number: 1Start: 29-38-3653svpexdisobxm 2% transdermal cream See Instructions, apply topically daily, Refills(s) 0 Start Date:12/12/22 Status: OrderedAndroGel Pump 20.25 MG/ACT (1.62%) 1 pump to skin in the morning to shoulder, upper arms or abdomenTransdermal Once a day Active thioctic acid 200 mg oral capsule (13 sources)Start: 53-59-7238ynsp 1 capsule by mouth twice dailyAlpha Lipoic Acid 200 mg capsule Active 200 MG PO Twice daily February 10, 2024 12:00am Complies with drug therapytraMADol hydrochloride 50 mg oral tablet (1 source)Opioid AgonistStart: 12-07-2024 End: 31-33-4458plsj 1 tablet by mouth every six hours as needed for paintraMADOL 50 mg Tab 50 mg = 1 tab(s), Oral, q6hr, PRN Pain, take as needed for post procedure pain, X 5 day(s), # 20 tab(s), Refills(s) 0, Pharmacy: [facility]/pharmacy #[id number], 183, cm, 12/07/24 7:32:00 EST, Height/Length Dosing, 104.3, kg, 10/13/24 14:06:00 EST, Weight Dosing Start Date: 12/07/24 Stop Date:12/12/24 Status: OrderedTylenol Extra Strength 500 MG (10 sources)take 1 tablet by mouth every six hours as neededTylenol Extra Strength 500 MG 1 tablet as needed Orally every 6 hrs Activevitamin B12 (5 sources)Vitamin R43Jhfcn: 33-74-4425Zatvhae B12 Oral, Daily, Refills(s) 0 Start Date: 02/04/25 Status: Ordered Repeat number: 1{20 (nirmatrelvir 150 MG Oral Tablet) / 10 (ritonavir 100 MG Oral Tablet) } Pack [Paxlovid 5-Day] (1 source)Start: 65-23-3516Zqizijfq (300/100) 20 x 150 MG & 10 x 100MG 1 Nirmatrelvir + 1 Ritonavir Orally Twice a day for5 days Instructed to take 150mg + 100mg tablet twice daily for GFR March, Active Completed/Discontinued Medications MedicationDrug Class(es)DatesSig (Normalized)Sig (Original)ascorbic acid 500 mg oral tablet (20 sources)Vitamin CStart: 11-30-2019 End: 39-81-6771tvxz 1 tablet by mouth once dailyAscorbic Acid (Vitamin C) (Vitamin C) 500 mg Tablet Discontinued 500 MG PO Daily November 30, 20191:00am February 10, 2025 1:31pmtake 1 tablet by mouth in the morningascorbic acid (Vitamin C) 500 MG tablet Take 1 tablet by mouth in the morning. Activetake 1 tablet by mouth every twenty-four hoursVitamin C 1000 MG 1 tablet Orally Once a day Activeazithromycin 250 mg oral tablet (2 sources)Macrolide AntimicrobialStart: 11-20-2024 End: 55-18-2680Oiweyhkdbhzu 250 mg tablet Discontinued 250 MG PO .COMPLEX 6 November 20, 2024 1:00am January 1:29pm 2 tabs on first day followed by 1 tab on days 2-5cyclobenzaprine hydrochloride 10 mg oral tablet (6 sources)Muscle RelaxantStart: 12-11-2019 End: 93-90-3394innz 1 tablet by mouth three times daily as needed for muscle spasmsCyclobenzaprine 10 mg tablet Discontinued 10 MG PO Three times daily as needed for back spasms 50 December 11, 2019 1:00am February 10, 2024 5:58pmFlash Glucose Sensor (Freestyle Singh 14 Day Sensor) kit (4 sources)Start: 03-30-2024 End: 87-94-2440Yefgc Glucose Sensor (Freestyle Singh 14 Day Sensor) kit Discontinued 0 .ROUTE .COMPLEX 2 March 1:15pm November 30, 2024 6:43pm USE TO TEST BLOOD SUGAR DAILYStart: 03-30-2024 End: 27-19-5133Qnknp Glucose Sensor (Freestyle Singh 14 Day Sensor) kit Discontinued 0 .Route March 30, 2024 12:00am March 30, 2024 1:15pm As directed fluticasone propionate 0.05 mg/actuat metered dose nasal spray (11 sources)CorticosteroidStart: 74-49-9650ftszneynmsx Nasal 0.05 mg/inh [place] Refill(s) 0 Start Date: 02/01/25 Status: Ordered Repeat number: 1Start: 01-20-2025 End: 58-54-4582qaxf 2 spray(s) nasal route once dailyfluticasone (Flonase) 50 MCG/ACT nasal spray Indications: ETD (Eustachian tube dysfunction), bilateral Administer 2 sprays into each nostril Daily Shake gently. Before first use, prime pump. After use, clean tip and replace cap. 48 g 3 01/20/2025 01/20/2026 ActivelevoFLOXacin 750 mg oral tablet (2 sources)Quinolone AntimicrobialStart: 11-05-2024 End: 03-74-6400fgaq 1 tablet by mouth once dailyLevofloxacin 750 mg tablet Discontinued 750 MG PO Daily 7 November 05, 2024 1:00am November 2:23pmMultivitamin Tablet (2 sources)Start: 11-30-2019 End: 91-99-3450qszz 1 tablet by mouth once dailyMultivitamin Tablet Discontinued 1 TAB PO Daily November 30, 2019 1:00am July 29, 2024 3:39pmoxyCODONE hydrochloride 5 mg oral capsule (2 sources)Opioid AgonistStart: 12-11-2019 End: 80-62-5047lrst 5-10 mg by mouth every six hours as needed for painOxycodone 5 mg capsule Discontinued 5 - 10 MG PO Q6H as needed for pain 60 December 11, 2019 February 10, 2024 6:00pmpredniSONE 10 mg oral tablet (20 sources)Start: 12-11-2019 End: 78-29-0213Aqgkqmwemk 10 mg tablets,dose pack Discontinued 1 dose pk PO per package directions December 11, 2019 1:00am February 10, 2024 6:00pm take 4 tabs for 3 days then take 3 tabs for 3 days then take 2tabs for 3 days then take 1 tab for 3 daysrosuvastatin calcium 5 mg oral tablet (2 sources)HMG-CoA Reductase InhibitorStart: 11-30-2019 End: 03-74-9876omqk 1 tablet by mouth once daily at bedtimeRosuvastatin 5 mg tablet Discontinued 5 MG PO Daily at bedtime November 30, 2019 1:00am February 10, 2024 6:00pmsulfamethoxazole 800 mg / trimethoprim 160 mg oral tablet (2 sources)Dihydrofolate Reductase Inhibitor Antibacterial, Sulfonamide AntimicrobialStart: 12-11-2019 End: 12-20-7342fslm 1 tablet by mouth every twelve hoursSulfamethoxazole- Trimethoprim (Bactrim Ds) 800-160 mg Tablet Discontinued 1 TAB PO Q12H 06 09December 11, 2019 1:00am February 10, 2024 6:00pm Problems Active Problems Problem ClassificationProblemDateDocumented DateEpisodic/ChronicAnxiety disorders (18 sources)Chronic anxiety; Translations: [Anxiety disorder, unspecified]Onset: [id number] dysrhythmias (15 sources)Irregular heart beat; Translations: [Cardiac arrhythmia, unspecified]Onset: [id number] on above:Holter: 9 beat VT - 08/2024Holter: 9 beat VT - 08/2024,Holter: 5 beat VT - ardiac dysrhythmias (15 sources)Intermittent palpitations; Translations: [Palpitations]Episodic Chronic kidney disease (20 sources)Chronic kidney disease; Translations: [Chronic kidney disease, unspecified]Onset: [id number] kidney disease (2 sources)Chronic kidney disease; Translations: [Chronic kidney disease, stage 3b]Onset: 85-98-6245Pshzldx obstructive pulmonary disease and bronchiectasis (20 sources)Mucopurulent chronic bronchitis; Translations: [Mucopurulent chronic bronchitis]Onset: 21-99-5642SikpwqnKzkbnwm on above:PFT: mild to mod restrictive defect - FT: mild to mod restrictive defect - 07/2022,Normal right heart pressures - oronary atherosclerosis and other heart disease (20 sources)Angina pectoris; Translations: [History of myocardial infarction] Onset: 411310-12-1007TyplojzKevikzz on above:CABG - 2014, Echo: LVEF 65%, normal RV size/function, RVSP 08/2024,Stress test: LVEF 51%, fixed inferolateral and anterior wall, reversible defect - eficiency and other anemia (20 sources)Anemia; Translations: [Anemia, unspecified]Onset: 06-04-2023 42-23-4903YwacthqfQcebymkreu and other anemia (2 sources)Anemia, unspecified; Translations: [Anemia, unspecified]11-12-2024 EpisodicDiabetes mellitus with complications (20 sources)Disorder of kidney due to diabetes mellitus; Translations: [Type 2 diabetes mellitus with diabetic chronic kidney disease]Onset: 54-83-3634Eszovvt Diabetes mellitus without complication (20 sources)Diabetes mellitus; Translations: [Type 2 diabetes mellitus without complications]Onset: 402614-20-4453DhesajhBcyezrdot of lipid metabolism (20 sources)Hypercholesterolemia; Translations: [Mixed hyperlipidemia]Onset: 833686-41-2792WdqumjrLrqzaojnzz disorders (14 sources)Gastroesophageal reflux disease; Translations: [Gastro-esophageal reflux disease without esophagitis]Onset: 080619-97-4417VpyqftsHsszrijkv hypertension (20 sources)Hypertensive disorder; Translations: [Essential hypertension]Onset: 270363-24-3189VextaeaNtoun and electrolyte disorders (1 source)Hyperkalemia; Translations: [Hyperkalemia]Onset: 18-75-9094Lsadbvzo Genitourinary symptoms and ill-defined conditions (9 sources)Urge incontinence of urine; Translations: [Urge incontinence]Onset: 325421-63-1477WiarhwtShmtq valve disorders (20 sources)Irregular heart gqhp14-52-8875FabpafqrHphkeztwtbo of prostate (20 sources)Large prostate ; Translations: [Nocturia due to benign prostatic hypertrophy]Onset: 275008-11-2269SmptngjYajrgjotezwg with complications and secondary hypertension (1 source)Hypertensive chronic kidney disease with stage 1 through stage 4 chronic kidney disease, or unspecified chronic kidney disease; Translations: [HTN CKD W/STAGE 1-4 CKD/UNS CKD]Onset: 03-25-9309QyskueoFgsoqgdjfpbc; infection of eye (except that caused by tuberculosis or sexually transmitteddisease) (20 sources)Conjunctivitis; Translations: [Unspecified conjunctivitis]Episodic Inflammatory conditions of male genital organs (2 sources)Chronic prostatitis; Translations: [Chronic prostatitis]Onset: 17-10-4826PzojesxRxsd disorders (9 sources)Depressive disorder; Translations: [Depressive disorder]Onset: 351042-59-4629KppumbyQhcmquewg or stenosis of precerebral arteries (2 sources)Occlusion and stenosis of bilateral carotid arteries; Translations: [Occlusion and stenosis of bilateral carotid arteries]Onset: 42-56-2968Sffqcjx Osteoarthritis (19 sources)Osteoarthritis of knee; Translations: [Unilateral primary osteoarthritis, right knee]Onset: 16-31-0158MjuxbmxNlibr aftercare (15 sources)Long-term current use of insulin; Translations: [manager intermediate (current) use of insulin]EpisodicOther and unspecified benign neoplasm (6 sources)Tubular adenoma of colon; Translations: [Tubular adenoma of colon] EpisodicOther circulatory disease (20 sources)Carotid bruit; Translations: [Other specified symptoms and signs involving the circulatory and respiratory systems]Onset: EpisodicComment on above:Carotid US: < 50% B/L - 12/2023Other circulatory disease (3 sources)Other specified symptoms and signs involving the circulatory and respiratory systems; Translations:[Right carotid bruit]EpisodicOther diseases of veins and lymphatics (15 sources)Peripheral venous insufficiency; Translations: [Venous insufficiency (chronic) (peripheral)]EpisodicOther diseases of veins and lymphatics (1 source)Venous insufficiency (chronic) (peripheral)EpisodicOther ear and sense organ disorders (2 sources)Mixed conductive and sensorineural hearing loss, bilateral; Translations: [Mixed conductive and sensorineural hearing loss, bilateral] 45-62-8580EugoucgVqvlb ear and sense organ disorders (4 sources)Mixed conductive AND sensorineural hearing loss; Translations: [Mixed conductive and sensorineural hearing loss, unilateral, right ear with restricted hearing on the contralateral side]55-40-5749QtgbunrLvmpm ear and sense organ disorders (2 sources)Sensorineural hearing loss, unilateral, right ear, with unrestricted hearing on the contralateral side; Translations: [Sensorineural hearing loss, unilateral]50-18-8652AmpxxvsNgrtm endocrine disorders (4 sources)Testicular hypofunction; Translations: [TESTICULAR HYPOFUNCTION] Onset: 56-58-9297SactlksHfxbw endocrine disorders (9 sources)Male hypogonadism; Translations: [Testicular hypofunction]Onset: 664380-16-8272YtrfqaoQroiz lower respiratory disease (20 sources)Nodule of lung; Translations: [Solitary pulmonary nodule]Onset: 561893-71-7250RmluykayBxrrane on above:CT: 7mm RML - 02/2023, 7mm RML - 08/2024Other lower respiratory disease (12 sources)Solitary pulmonary nodule; Translations: [Solitary pulmonary nodule] Onset: 74-45-9466CujnurwyDnjqo male genital disorders (9 sources)Male erectile dysfunction, unspecified; Translations: [Impotence of organic origin]Onset: 390011-39-6714OpxrmqyQgcto nervous system disorders (20 sources)Carpal tunnel syndrome; Translations: [Carpal tunnel syndrome, unspecified upper limb]Onset: 535577-25-7214BytzrlrHholk nervous system disorders (1 source)Other chronic pain; Translations: [OTHER CHRONIC PAIN]Onset: 40-77-6420KaxpsotPofet nervous system disorders (2 sources)Chronic pain; Translations: [Other chronic pain]Onset: 12-16-2023 ChronicOther non-traumatic joint disorders (15 sources)Arthralgia of the lower leg; Translations: [Pain in left knee] EpisodicOther nutritional; endocrine; and metabolic disorders (20 sources)Body mass index 30+ - obesity; Translations: [Body mass index (BMI) 31.0-31.9, adult]Onset: 993738-41-1422LamnjycKanjb nutritional; endocrine; and metabolic disorders (18 sources)Obesity caused by energy imbalance; Translations: [Other obesity due to excess calories]Onset: 722368-40-9709BfszvwmKghjg nutritional; endocrine; and metabolic disorders (1 source)Other obesity due to excess caloriesChronicOther nutritional; endocrine; and metabolic disorders (1 source)Body mass index (BMI) 32.0-32.9, adultChronicOther nutritional; endocrine; and metabolic disorders (9 sources)Disorder of lipid metabolism; Translations: [Disorder of lipoprotein metabolism, unspecified]Onset: 180353-29-7348CyfcvefFrznif media and related conditions (8 sources)Eustachian tube disorder; Translations: [Other specified disorders of Eustachian tube, unspecified ear]34-53-3242ZopqfdjtFyhtguguaw and visceral atherosclerosis (15 sources)Arteriosclerosis of abdominal aorta; Translations: [Atherosclerosis of aorta]ChronicResidual codes; unclassified (20 sources)Sleep ejmqk54-10-0034IumbymrXzevryfr codes; unclassified (20 sources)Obstructive sleep apnea syndrome; Translations: [Obstructive sleep apnea (adult) (pediatric)]Onset: 662079-89-7449GzfxjppXaqjssci codes; unclassified (5 sources)Obstructive sleep apnea (adult) (pediatric); Translations: [Obstructive sleep apnea (adult)(pediatric)]ChronicResidual codes; unclassified (20 sources)H/O cardiac surgery; Translations: [Other specified postprocedural states]Onset: 696714-51-5292MwrbilhmLhznhnmbeah failure; insufficiency; arrest (adult) (20 sources)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 airway pressure ventilation; Translations: [Dependence on other enabling machines and devices]Onset: 173799-71-7641FuxthnbCzzpytlajt arthritis and related disease (20 sources)Rheumatoid arthritis; Translations: [Rheumatoid arthritis, unspecified]Onset: 996134-12-2682XtdwzznPgmdgnuzvte; intervertebral disc disorders; other back problems (20 sources)Lumbar spondylosis with myelopathy; Translations: [Other spondylosis with myelopathy, lumbar region]Onset: 71-83-1860QbjtsguBvllvfkgqwk; intervertebral disc disorders; other back problems (13 sources)Dorsalgia, unspecified; Translations: [Spinal stenosis, lumbar region without neurogenic claudication]Onset: 816458-82-7573Pihzxsfl Sprains and strains (16 sources)Strain of right quadriceps muscle, fascia and tendon, initial encounter; Translations: [Strain of right quadriceps muscle, fascia and tendon, subsequent encounter]Onset: 97-23-8907KouqeljdQbvfkwlov-related disorders (20 sources)Tobacco user; Translations: [Nicotine dependence, cigarettes, in remission]Onset: 37-65-9195WpqbzmlPanxwij (2 sources)Syncope and collapse; Translations: [Syncope]Onset: 08-28-2025 EpisodicUnclassified (2 sources)LOW BACK PAIN, UNSPECIFIED; Translations: [LOW BACK PAIN, UNSPECIFIED]Onset: 92-37-5692Mimlawnmrkad (1 source)CHRN KIDNEY DISEASE STG 3 UNSP; Translations: [CHRN KIDNEY DISEASE STG 3 UNSP]Onset: 14-09-2646Inppjcekncui (1 source)CONTACT W/AND (SUSP) EXPOS COVID-19; Translations: [CONTACT W/AND (SUSP) EXPOS COVID-19]Onset: 23-16-4000Mbqkepcqzzuj (1 source)Other ventricular tachycardia; Translations: [Other ventricular tachycardia]Onset: 26-80-1015Iabtrwywdhdp (1 source)illOnset: 08-28-2025 Past or Other Problems Problem ClassificationProblemDateDocumented DateEpisodic/ChronicAbdominal pain (9 sources)Abdominal discomfort; Translations: [Pelvic and perineal pain]Onset: 484568-62-4715QklncxsfZdoixwc tract disease (20 sources)Cholelithiasis without obstruction; Translations: [Calculus of gallbladder without cholecystitis without obstruction]Onset: 01-27-2013 41-70-9045VxazumviAmmkxyyh of urinary tract (9 sources)Kidney stone; Translations: [Calculus of kidney]Onset: 01-27-2013 22-06-4548AkyqgugxPdctxhhtie associated with dizziness or vertigo (9 sources)Postural dizziness; Translations: [Dizziness and giddiness]Onset: 892008-29-3874SuqisidqTpuetwfa atherosclerosis and other heart disease (2 sources)Presence of aortocoronary bypass graft; Translations: [Presence of aortocoronary bypass graft]Onset: 47-19-2304RhsmmwgnKnsdzehi; convulsions (9 sources)Seizure; Translations: [Unspecified convulsions]Onset: 01-27-2013 24-72-2800YpmcdmcbFlcgoexeorwxv symptoms and ill-defined conditions (20 sources)Giuseppe hematuria; Translations: [Gross hematuria]Onset: 09-03-2023 EpisodicOther aftercare (2 sources)manager intermediate (current) use of insulin; Translations: [CUSTODIAL CURRENT USE OF INSULIN]Onset: 12-77-2615JpisjuouEssfz aftercare (1 source)Other senior living (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 therapy; Translations: [OTH CUSTODIAL CURRENT DRUG THERAPY]Onset: 32-02-0048JwkyyqdhSrvmk aftercare (1 source)nursing home (current) use of aspirin; Translations: [CUSTODIAL CURRENT USE OF ASPIRIN]Onset: 71-01-2564MurdroagUbtee lower respiratory disease (20 sources)Dyspnea on exertion; Translations: [Other forms of dyspnea]Onset: 468339-97-9279ScwitbxqMxgsb lower respiratory disease (6 sources)Shortness of breath; Translations: [SHORTNESS OF BREATH]Onset: 48-21-8137YhzbwbkeTlajvirt codes; unclassified (1 source)History of cardiac catheterization; Translations: [Other specified postprocedural states]Onset: 655144-84-5465JdsidmzwNytyrer on above:LHC: 80% mid LAD, occluded RCA w/ patent grafts - 03/2025Screening and history of mental health and substance abuse codes (1 source)Personal history of nicotine dependence; Translations: [PERSONAL HISTORY OF NICOTINE DEPEND]Onset: 26-29-4158AuluojdqOdivbslksskj (1 source)LOW BACK PAIN, UNSPECIFIED; Translations: [LOW BACK PAIN, UNSPECIFIED] Onset: 78-50-9394Aesmtvneiwhh (1 source)Other ventricular tachycardia; Translations: [Other ventricular tachycardia]Onset: 07-95-1503Uyvpacc tract infections (9 sources)Cystitis cystica; Translations: [Other cystitis without hematuria] Onset: 450089-72-0186GpquroecBabte infection (1 source)COVID-19 Results Test NameValueInterpretationReference RangeFacilityCBC WITH AUTO DIFFERENTIALon 15-47-0526ESBMHJRFK ABSOLUTE COUNT (10*3/UL) BY AUTOMATED COUNT0.1 10*3/uLNormal 0.0-0.2[facility] HospitalComment on above:Performed By: #### CBCA #### [facility] ([address] [place] [address] VIRBASOPHILS RELATIVE PERCENT BY AUTOMATED COUNT1.2 %Normal [facility] HospitalComment on above:Performed By: #### CBCA #### [facility] ([address] [address] VIRCELLAVISION DIFFERENTIAL TYPEAUTOMATED DIFFERENTIALNormal [facility] HospitalComment on above:Performed By: #### CBCA #### [facility] ([address] [address] VIREosinophils (Bld) [#/Vol]0.4 10*3/uLNormal0.0-0.4[facility] HospitalComment on above:Performed By: #### CBCA #### [facility] ([address] [place] [address] VIREOSINOPHILS RELATIVE PERCENT BY AUTOMATED COUNT6.3 %Normal [facility] HospitalComment on above:Performed By: #### CBCA #### [facility] ([address] [place] [address] VIRErythrocyte distribution width (RBC) [Ratio]14.1 %Normal 11.5-15[facility] HospitalComment on above:Performed By: #### CBCA #### [facility] ([address] [place] [address] VIRHematocrit (Bld) [Volume fraction]33.6 %Jov23-40KntPmdsldMemorial Hermann Sugar Land HospitalComment on above:Performed By: #### CBCA #### [facility] ([address] [place] [address] VIRHemoglobin (Bld) [Mass/Vol]11.5 g/mPZjd84-84HpxWzfwhuGrand Lake Joint [facility] Memorial HospitalComment on above:Performed By: #### CBCA #### [facility] ([address] [place] [address] VIRLYMPHOCYTES ABSOLUTE COUNT (10*3/UL) BY AUTOMATED COUNT2.2 10*3/uLNormal1.0-3.5PU[facility] HospitalComment on above:Performed By: #### CBCA #### [facility] ([address] [place] [address] VIRLYMPHOCYTES RELATIVE PERCENT BY AUTOMATED COUNT31.2 %Normal [facility] HospitalComment on above:Performed By: #### CBCA #### [facility] [address] [place] [address] [place] [address] VIRMCH (RBC) [Entitic mass]31.0 rbSgchyy81-74PmaEutvuxMemorial Hermann Sugar [facility] HospitalComment on above:Performed By: #### CBCA #### [facility] ([address] [place] [address] VIRMCHC (RBC) [Mass/Vol]34.3 g/kJXxbeme80-56TptDvvleyMemorial Hermann Sugar [facility] HospitalComment on above:Performed By: #### CBCA #### [facility] ([address] [place] [address] VIRMCV (RBC) [Entitic vol]91 oJMivvdf30-247ZvkYbjdlt [facility] HospitalComment on above:Performed By: #### CBCA #### [facility] ([address] [place] [address] VIRMONOCYTES ABSOLUTE COUNT (10*3/UL) BY AUTOMATED COUNT0.7 10*3/uLNormal0.0-0.9ProMemorial Hermann [facility] HospitalComment on above:Performed By: #### CBCA #### [facility] ([address] [place] [address] VIRMONOCYTES RELATIVE PERCENT BY AUTOMATED COUNT9.4 %Normal [facility] HospitalComascension prov[facility] hospital on above:Performed By: #### CBCA #### [facility] ([address] [place] [address] VIRNEUTROPHILS ABSOLUTE COUNT BY AUTOMATED COUNT3.6 10*3/uL Normal1.5-6.6[facility] HospitalComascension prov[facility] hospital on above:Performed By: #### CBCA #### [facility] ([address] [place] [address] VIRNEUTROPHILS RELATIVE PERCENT BY AUTOMATED COUNT51.9 %Normal [facility] HospitalComment on above:Performed By: #### CBCA #### [facility] ([facility]) [facility] [address] [address] VIRPlatelet mean volume (Bld) [Entitic vol]9.8 fLNormal7-12 [facility] HospitalComment on above:Performed By: #### CBCA #### [facility] ([place] [address] [place] [address] VIRPlatelets (Bld) [#/Vol]167 10*3/mRCjvwyn119-311AwmFskbcq [facility] HospitalComment on above:Performed By: #### CBCA #### [facility] ([facility]) [facility] [place] [address] VIRRBC COUNT3.71 X10E12/LLow4.1-5.7[facility] Comment on above:Performed By: #### CBCA #### [facility] ([address] [address] VIRWBC (Bld) [#/Vol]7.0 10*3/uLNormal4-11ProMemorial Hermann [facility] HospitalComment on above:Performed By: #### CBCA #### [facility] ([address] [place] [address] VIRCOMPREHENSIVE METABOLIC PANELon 80-50-0878Acjyggg [Mass/Vol]3.7 g/dLNormal3.2-5.3[facility] HospitalComment on above: Performed By: #### CBCA #### [facility] ([place] [address] [place] [address] VIRALP [Catalytic activity/Vol]63 U/RTjeshj59-129XdgQnfiofMemorial Hermann [facility] HospitalComment on above:Performed By: #### CBCA #### [facility] ([place] [address] [place] [address] VIRALT [Catalytic activity/Vol]13 U/LNormal<=40ProMemorial [facility] HospitalComment on above:Performed By: #### CBCA #### [facility] ([address] [place] [address] VIRAnion gap [Moles/Vol]10 mmol/LNormal5-15ProMemorial [facility] HospitalComment on above:Performed By: #### CBCA #### [facility] ([address] [place] [address] VIRAST [Catalytic activity/Vol]14 U/LNormal<=41ProMemorial [facility] HospitalComment on above:Performed By: #### CBCA #### [facility] ([address] [place] [address] VIRBilirubin [Mass/Vol]0.8 mg/dLNormal0.3-1.2[facility] HospitalComment on above:Performed By: #### CBCA #### [facility] ([address] [place] [address] VIRCalcium [Mass/Vol]8.6 mg/dLNormal8.5-10.5[facility] HospitalComment on above:Performed By: #### CBCA #### [facility] ([address] [place] [address] VIRChloride [Moles/Vol]105 mmol/EDxlatr57-014FztKsiddtMemorial Hermann Sugar [facility] HospitalComment on above:Performed By: #### CBCA #### [facility] ([address] [place] [address] VIRCO2 [Moles/Vol]21 mmol/ZKia64-49WacJdkfykUC [facility] Comment on above:Performed By: #### CBCA #### [facility] ([address] [place] [address] VIRCreatinine [Mass/Vol]1.76 mg/dLHigh0.70-1.20[facility] HospitalComment on above:Result Comment: METHOD TRACEABLE TO [facility] STANDARDPerformed By: #### CBCA #### [address] [address] VIRGFR/1.73 sq M.predicted among non-blacks MDRD (S/P/Bld) [Vol rate/Area]39 mL/min/{1.73_m2}Low>=60ProMemorial Hermann [facility] HospitalComment on above:Result Comment: eGFR not reported due to non-numeric value for Creatinine. Reported eGFR is based on the CKD-EPI 2021 equation that does not use a race coefficient.Performed By: #### CBCA #### [address] [address] VIRGlucose [Mass/Vol]136 mg/eTWxtv03-88FyrScjsdyMemorial Hermann Sugar Land HospitalComment on above:Performed By: #### CBCA #### [address] [address] VIRPotassium [Moles/Vol]5.2 mmol/LHigh3.5-5.0ProMemorial Hermann [facility] HospitalComment on above:Performed By: #### CBCA #### [address] [address] VIRProtein [Mass/Vol]6.0 g/dLNormal6.0-8.0ProMemorial Hermann [facility] HospitalComment on above:Performed By: #### CBCA #### [address] [address] VIRSodium [Moles/Vol]136 mmol/EFxvrmv308-613VtsUmjeqz [facility] HospitalComment on above:Performed By: #### CBCA #### [address] [address] VIRUrea nitrogen [Mass/Vol]32 mg/dLHigh5-27ProMemorial [facility] HospitalComment on above:Performed By: #### CBCA #### [facility] ([address] [place] [address] VIRMAGNESIUMon 68-16-6848Joypuzbbw [Mass/Vol]2.2 mg/dLNormal 1.8-2.6ProMemorial [facility] HospitalComment on above:Performed By: #### CBCA #### [facility] ([address] [place] [address] VIRPOTASSIUMon 35-15-3729Ihkkcpzkj [Moles/Vol]4.9 mmol/LNormal 3.5-5.0ProMemorial [facility] HospitalComment on above:Performed By: #### MG #### [facility] ([address] [place] [address] VIRC-REACTIVE PROTEINon 68-40-1744NIH [Mass/Vol]mg/LNormal <=0.7ProMemorial [facility]ann [facility] HospitalComment on above:Performed By: #### CBCA #### [facility] ([address] [place] [address] VIRCBC WITH AUTO DIFFERENTIALon 22-43-8139SXGWCGFOV ABSOLUTE COUNT (10*3/UL) BY AUTOMATED COUNT0.1 10*3/uLNormal0.0-0.2[facility] HospitalComment on above:Performed By: #### CBCA #### [facility] ([address] [place] [address] VIRBASOPHILS RELATIVE PERCENT BY AUTOMATED COUNT1.3 %Normal [facility] HospitalComment on above:Performed By: #### CBCA #### [facility] ([address] [place] [address] VIRCELLAVISION DIFFERENTIAL TYPEAUTOMATED DIFFERENTIALNormal [facility] HospitalComment on above:Performed By: #### CBCA #### [facility] ([address] [place] [address] VIREosinophils (Bld) [#/Vol]0.3 10*3/uLNormal0.0-0.4[facility] HospitalComment on above:Performed By: #### CBCA #### [facility] ([address] [place] [address] VIREOSINOPHILS RELATIVE PERCENT BY AUTOMATED COUNT3.4 %Normal [facility] HospitalComment on above:Performed By: #### CBCA #### [facility] ([address] [place] [address] VIRErythrocyte distribution width (RBC) [Ratio]14.3 %Normal 11.5-15[facility] HospitalComment on above:Performed By: #### CBCA #### [facility] ([address] [place] [address] VIRHematocrit (Bld) [Volume fraction]34.9 %Mfo41-85NdyLssiupMemorial Hermann Sugar Land HospitalComment on above:Performed By: #### CBCA #### [facility] ([address] [place] [address] VIRHemoglobin (Bld) [Mass/Vol]11.9 g/oHTpe32-30VmvFxpvfsGrand Lake Joint Township District Memorial HospitalComment on above:Performed By: #### CBCA #### [facility] ([address] [place] [address] VIRLYMPHOCYTES ABSOLUTE COUNT (10*3/UL) BY AUTOMATED COUNT1.8 10*3/uLNormal1.0-3.5[facility] HospitalComment on above:Performed By: #### CBCA #### [facility] ([address] [place] [address] VIRLYMPHOCYTES RELATIVE PERCENT BY AUTOMATED COUNT22.6 %Normal [facility] HospitalComment on above:Performed By: #### CBCA #### [facility] ([address] [place] [address] VIRMCH (RBC) [Entitic mass]30.6 wpOfexfw72-95IuiMttqdjMemorial Hermann Sugar Land HospitalComment on above:Performed By: #### CBCA #### [facility] ([address] [address] VIRMCHC (RBC) [Mass/Vol]34.0 g/fNQjjyng75-54XokXtmxliMemorial Hermann [facility] HospitalComment on above:Performed By: #### CBCA #### [facility] ([address] [place] [address] VIRMCV (RBC) [Entitic vol]90 pSSbnyje56-294OieFjmogu [facility] HospitalComment on above:Performed By: #### CBCA #### [facility] ([address] [place] [address] VIRMONOCYTES ABSOLUTE COUNT (10*3/UL) BY AUTOMATED COUNT0.6 10*3/uLNormal0.0-0.9ProMemorial Hermann [facility] HospitalComment on above:Performed By: #### CBCA #### [facility] ([address] [place] [address] VIRMONOCYTES RELATIVE PERCENT BY AUTOMATED COUNT8.0 %Normal [facility] HospitalComment on above:Performed By: #### CBCA #### [facility] ([address] [place] [address] VIRNEUTROPHILS ABSOLUTE COUNT BY AUTOMATED COUNT5.2 10*3/uL Normal1.5-6.6Grand [facility] Memorial HospitalComment on above:Performed By: #### CBCA #### [facility] ([address] [place] [address] VIRNEUTROPHILS RELATIVE PERCENT BY AUTOMATED COUNT64.7 %Normal [facility] HospitalComment on above:Performed By: #### CBCA #### [facility] ([facility]) [facility] [address] [address] VIRPlatelet mean volume (Bld) [Entitic vol]9.5 fLNormal7-12 [facility] HospitalComment on above:Performed By: #### CBCA #### [facility] ([facility]) [facility] [place] [address] VIRPlatelets (Bld) [#/Vol]161 10*3/kVAkweom229-646GocRweqax [place] HospitalComment on above:Performed By: #### CBCA #### [facility] ([facility]) [facility] [place] [address] VIRRBC COUNT3.88 X10E12/LLow4.1-5.7[facility] Comment on above:Performed By: #### CBCA #### [facility] ([address] [place] [address] VIRWBC (Bld) [#/Vol]8.0 10*3/uLNormal4-11ProMemorial Hermann Sugar Land HospitalComment on above:Performed By: #### CBCA #### [facility] ([facility]) [address] [place] [address] [place] [address] VIRCOMPREHENSIVE METABOLIC PANELon 40-85-6908Vzvhehr [Mass/Vol]3.6 g/dLNormal3.2-5.3PUC [facility] HospitalComment on above: Performed By: #### CMP #### [facility] ([facility]) [facility] [place] [address] VIRALP [Catalytic activity/Vol]59 U/PKitwbd50-665OwaUqkxhuMemorial Hermann Sugar Land HospitalComment on above:Performed By: #### CMP #### [facility] ([address] [address] VIRALT [Catalytic activity/Vol]13 U/LNormal<=40ProMemorial Hermann [facility] HospitalComment on above:Performed By: #### CMP #### [facility] ([address] [address] VIRAnion gap [Moles/Vol]10 mmol/LNormal5-15ProMemorial Hermann [facility] Land HospitalComment on above:Performed By: #### CMP #### [facility] ([address] [place] [address] VIRAST [Catalytic activity/Vol]15 U/LNormal<=41ProMemorial Hermann [facility] HospitalComment on above:Performed By: #### CMP #### [facility] ([address] [place] [address] VIRBilirubin [Mass/Vol]0.6 mg/dLNormal0.3-1.2PU[facility] HospitalComment on above:Performed By: #### CMP #### [facility] ([address] [place] [address] VIRCalcium [Mass/Vol]8.5 mg/dLNormal8.5-10.5PU[facility] HospitalComment on above:Performed By: #### CMP #### [facility] ([address] [place] [address] VIRChloride [Moles/Vol]105 mmol/NJgpzqd06-479TdbTnwndsMemorial Hermann Sugar Land HospitalComment on above:Performed By: #### CMP #### [facility] ([address] [place] [address] VIRCO2 [Moles/Vol]19 mmol/GCrn47-79FogMxakruUC [facility] Hospital Comment on above:Performed By: #### CMP #### [facility] ([address] [place] [address] VIRCreatinine [Mass/Vol]1.99 mg/dLHigh0.70-1.20ProMemorial Hermann [facility] HospitalComment on above:Result Comment: METHOD TRACEABLE TO IDMS STANDARDPerformed By: #### CMP #### [facility] ([address] [address] VIRGFR/1.73 sq M.predicted among non-blacks MDRD (S/P/Bld) [Vol rate/Area]34 mL/min/{1.73_m2}Low>=60ProMemorial Hermann [facility] Land HospitalComment on above:Result Comment: eGFR not reported due to non-numeric value for Creatinine. Reported eGFR is based on the CKD-EPI 1 equation that does not use a race coefficient.Performed By: #### CMP #### [facility] ([address] [address] VIRGlucose [Mass/Vol]109 mg/sNChac30-90UtqIeswslMemorial Hermann Sugar Land HospitalComment on above:Performed By: #### CMP #### [address] [address] VIRPotassium [Moles/Vol]4.8 mmol/LNormal3.5-5.0ProMemorial Hermann [facility] Land HospitalComment on above:Performed By: #### CMP #### [facility] ([address] [address] VIRProtein [Mass/Vol]6.2 g/dLNormal6.0-8.0ProMemorial Hermann [facility] HospitalComment on above:Performed By: #### CMP #### [facility] ([address] [address] VIRSodium [Moles/Vol]134 mmol/XWqglgg400-447EenIjnsgr [place] HospitalComment on above:Performed By: #### CMP #### [address] [address] VIRUrea nitrogen [Mass/Vol]32 mg/dLHigh5-27ProMemorial [facility]ann [facility] HospitalComment on above:Performed By: #### CMP #### [facility] [address] [place] [address] VIRCT ABDOMEN WO CONTon 58-33-2054BY ABDOMEN WO CONTCT ABDOMEN WO CONT CT ABDOMEN WO CONT Clinical history:neto and diarrhea abdominal pain Comparison: None. TECHNIQUE: CT abdomen performed without contrast with axial coronal sagittal imaging. Findings: No pleural or pericardial effusion and lung bases. There is no lower lung consolidation seen. Assessment of the abdominal viscera is compromised by absence of IV contrast. The entirety of the colon is not assessed were evaluated on this evaluation the abdomen. Gallbladder is present with small gallstone. Noncontrast assessment of the liver, adrenal glands, pancreas and spleen appear unremarkable. No renal collecting system dilatation. Small nonobstructing right renal calculus. 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 Atherosclerotic abdominal aorta. No enlarged mesenteric or retroperitoneal lymph nodes. No vertebral body loss. Degenerative change of the thoracolumbar lumbar spine with prior lumbar laminectomy. Impression: No definitive acute abdominal process identified within the limitations of the noncontrast examination. Cholelithiasis. Right nephrolithiasis. All CT scans at this facility use dose modulation, iterative reconstruction, and/or weight based dosing when appropriate to reduce radiation dose to as low as reasonably achievable. Finalized by John Membreno MD on 08/29/2025 3:59 PMNormalGrand Lake Joint Township District Memorial HospitalGI PANEL STOOL PATHOGEN PANELon 10-84-3428QI PANEL STOOL PATHOGEN PANEL GIP GI PANEL STOOL PATHOGEN PANEL CancelledNoUK Healthcare MAGNESIUMon 79-66-5901Wmcgopdey [Mass/Vol]2.2 mg/dLNormal1.8-2.6ProMemorial Hermann [facility] HospitalComment on above:Performed By: #### MG #### [facility] ([address] [place] [address] VIROSMOLALITY, URINEon 64-81-7956SGABB UGKEYGXBOE180 mOsm/kg D4Cudtvb210-1323WitOoplyg [facility] HospitalComment on above:Performed By: #### CBCA #### [facility] ([address] [place] [address] VIRPROTEIN, URINE, RANDOMon 53-15-1816ZASNU PROTEIN, RANDOM (MG/L)60 mg/LNormal<120ProMemorial [facility] HospitalComment on above:Performed By: #### CBCA #### [facility] ([address] [place] [address] VIRSODIUM, URINE, RANDOMon 35-88-5177Zqamrx (U) [Moles/Vol]53 mmol/LNormalProMemorial Hermann [facility] Land HospitalComment on above:Performed By: #### CBCA #### [facility] ([facility]) [address] [place] [address] VIRUREA RANDOM, URINEon 93-61-8776OUJYM UREA NITROGEN,RANDOM 416 mg/dLNormalGrand Lake Joint Township District Memorial HospitalComment on above:Performed By: #### CBCA #### [facility] ([address] [place] [address] VIRURINALYSISon 50-99-0796Nkatyuqur Ql (U)NegativeNormal NegativeGrand Lake Joint Township District Memorial HospitalComment on above:Performed By: #### UA #### [facility] ([address] [address] VIRBLOOD/HGBNegativeNormalNegativeGrand [facility] Comment on above:Performed By: #### UA #### [facility] ([address] [address] VIRColor (U)YellowNormalYellowGrand Lake Joint Township District Memorial Hospital Comment on above:Performed By: #### UA #### [facility] ([address] [place] [address] VIRGlucose Ql (U)NegativeNormalNegative, 250 mg/dLGrand Lake Joint Township District Memorial HospitalComment on above:Performed By: #### UA #### [facility] ([address] [address] VIRKetones Ql (U)NegativeNormalNegativeProMemorial Hermann Sugar Land HospitalComment on above:Performed By: #### UA #### [facility] ([address] [address] VIRLeukocyte esterase Test strip Ql (U)NegativeNormalNegative [facility] HospitalComment on above:Performed By: #### UA #### [facility] ([address] [address] VIRNitrite Ql (U)NegativeNormalNegativeProMemorial Hermann Sugar Land HospitalComment on above:Performed By: #### UA #### [address] [address] VIRPH,URINE6.2Cynedt4.0-8.5[facility] HospitalComment on above:Performed By: #### UA #### [facility] ([address] [address] VIRProtein Ql (U)NegativeNormalNegativeGrand Lake Joint Township District Memorial HospitalComment on above:Performed By: #### UA #### [facility] ([address] [address] VIRSpecific gravity (U) [Rel density]1.639Vatouv5.003-1.035 [facility] HospitalComascension providence hospital on above:Performed By: #### UA #### [facility] ([address] [address] VIRTURBIDITYClearNormalClearProMemorial Hermann Sugar Land HospitalComment on above:Performed By: #### UA #### [address] [address] VIRUROBILINOGEN0.2 eu/dLNormal0.2 eu/dL, 1.0 eu/dLProMemorial Hermann Sugar Land HospitalComment on above:Performed By: #### UA #### [facility] [place] [address] VIRURINE CREATININE,RANDOMon 81-45-2334BRTDK CREATININE,RDM 88.99 mg/dLNormalGrand Lake Joint Township District Memorial HospitalComment on above:Performed By: #### CBCA #### [facility] ([address] [place] [address] VIRCBC WITH AUTO DIFFERENTIALon 82-82-8762EDUGGELFA ABSOLUTE COUNT (10*3/UL) BY AUTOMATED COUNT0.1 10*3/uLNormal0.0-0.2ProMedCamarillo State Mental HospitalComment on above:Performed By: #### CBCA #### [facility] ([address] [place] [address] VIRBASOPHILS RELATIVE PERCENT BY AUTOMATED COUNT1.0 %Normal [facility] HospitalComascension providence hospital on above:Performed By: #### CBCA #### [facility] ([address] [address] VIRCELLAVISION DIFFERENTIAL TYPEAUTOMATED DIFFERENTIALNormal [facility] HospitalComment on above:Performed By: #### CBCA #### [facility] ([address] [address] VIREosinophils (Bld) [#/Vol]0.3 10*3/uLNormal0.0-0.4[facility] HospitalComascension providence hospital on above:Performed By: #### CBCA #### [facility] ([address] [place] [address] VIREOSINOPHILS RELATIVE PERCENT BY AUTOMATED COUNT4.3 %Normal [facility] HospitalComment on above:Performed By: #### CBCA #### [facility] ([address] [place] [address] VIRErythrocyte distribution width (RBC) [Ratio]14.4 %Normal 11.5-15ProMemorial Hermann Sugar Land HospitalComment on above:Performed By: #### CBCA #### [facility] ([address] [place] [address] VIRHematocrit (Bld) [Volume fraction]37.6 %Scc35-22HfyTrwovgMemorial Hermann Sugar Land HospitalComment on above:Performed By: #### CBCA #### [facility] ([address] [place] [address] VIRHemoglobin (Bld) [Mass/Vol]12.6 g/nXLcg32-42QlfNrikcuMemorial Hermann Sugar Land HospitalComment on above:Performed By: #### CBCA #### [facility] ([address] [place] [address] VIRLYMPHOCYTES ABSOLUTE COUNT (10*3/UL) BY AUTOMATED COUNT1.5 10*3/uLNormal1.0-3.5PU[facility] HospitalComment on above:Performed By: #### CBCA #### [facility] ([address] [place] [address] VIRLYMPHOCYTES RELATIVE PERCENT BY AUTOMATED COUNT19.6 %Normal [facility] HospitalComment on above:Performed By: #### CBCA #### [facility] ([address] [place] [address] VIRMCH (RBC) [Entitic mass]30.3 cnKvazke53-16VvgAzdgctMemorial Hermann Sugar Land HospitalComment on above:Performed By: #### CBCA #### [facility] ([address] [place] [address] VIRMCHC (RBC) [Mass/Vol]33.5 g/bFBptoly16-91WepGltiqoMemorial Hermann Sugar Land HospitalComment on above:Performed By: #### CBCA #### [facility] ([address] [place] [address] VIRMCV (RBC) [Entitic vol]91 wFOuvafw33-593AckNrfygo [facility] HospitalComment on above:Performed By: #### CBCA #### [facility] ([facility]) [address] [place] [address] [place] [address] VIRMONOCYTES ABSOLUTE COUNT (10*3/UL) BY AUTOMATED COUNT0.7 10*3/uLNormal0.0-0.9[facility] HospitalComment on above:Performed By: #### CBCA #### [facility] ([facility]) [address] [place] [address] [place] [address] VIRMONOCYTES RELATIVE PERCENT BY AUTOMATED COUNT8.9 %Normal [facility] HospitalComment on above:Performed By: #### CBCA #### [facility] ([address] [place] [address] VIRNEUTROPHILS ABSOLUTE COUNT BY AUTOMATED COUNT5.2 10*3/uL Normal1.5-6.6[facility] HospitalComment on above:Performed By: #### CBCA #### [facility] ([address] [place] [address] VIRNEUTROPHILS RELATIVE PERCENT BY AUTOMATED COUNT66.2 %Normal [facility] HospitalComment on above:Performed By: #### CBCA #### [facility] ([address] [place] [address] VIRPlatelet mean volume (Bld) [Entitic vol]9.2 fLNormal7-12 [facility] HospitalComment on above:Performed By: #### CBCA #### [facility] ([address] [place] [address] VIRPlatelets (Bld) [#/Vol]190 10*3/zYKywdgx802-996HbuKmpnlk [place] HospitalComment on above:Performed By: #### CBCA #### [facility] ([address] [place] [address] VIRRBC COUNT4.16 X10E12/LNormal4.1-5.7ProMemorial Hermann [facility] Land HospitalComment on above:Performed By: #### CBCA #### [facility] ([place] [address] [place] [address] VIRWBC (Bld) [#/Vol]7.8 10*3/uLNormal4-11ProMemorial Hermann [facility] HospitalComment on above:Performed By: #### CBCA #### [facility] ([place] [address] [place] [address] VIRCOMPREHENSIVE METABOLIC PANELon 55-52-0361Iqtepbj [Mass/Vol]4.1 g/dLNormal3.2-5.3PU[facility] HospitalComment on above: Performed By: #### CMP #### [facility] ([place] [address] [place] [address] VIRALP [Catalytic activity/Vol]65 U/AFoleeg80-111OmiAgnyysMemorial Hermann Sugar Land HospitalComment on above:Performed By: #### CMP #### [facility] ([address] [place] [address] VIRALT [Catalytic activity/Vol]14 U/LNormal<=40ProMemorial Hermann [facility] HospitalComment on above:Performed By: #### CMP #### [facility] ([place] [address] [place] [address] VIRAnion gap [Moles/Vol]12 mmol/LNormal5-15ProMemorial [facility] HospitalComment on above:Performed By: #### CMP #### [facility] ([place] [address] [place] [address] VIRAST [Catalytic activity/Vol]17 U/LNormal<=41ProMemorial Hermann [facility] HospitalComment on above:Performed By: #### CMP #### [facility] ([place] [address] [place] [address] VIRBilirubin [Mass/Vol]0.5 mg/dLNormal0.3-1.2PU[facility] HospitalComment on above:Performed By: #### CMP #### [facility] ([address] [place] [address] VIRCalcium [Mass/Vol]9.0 mg/dLNormal8.5-10.5PU[facility] HospitalComment on above:Performed By: #### CMP #### [facility] ([address] [place] [address] VIRChloride [Moles/Vol]102 mmol/UChises72-183KobRbafjtMemorial Hermann Sugar Land HospitalComment on above:Performed By: #### CMP #### [facility] ([address] [place] [address] VIRCO2 [Moles/Vol]21 mmol/KCed64-64FzyAaunfiUC [facility] Comment on above:Performed By: #### CMP #### [facility] ([address] [place] [address] VIRCreatinine [Mass/Vol]2.22 mg/dLHigh0.70-1.20ProMemorial Herm[facility] HospitalComment on above:Result Comment: METHOD TRACEABLE TO IDMS STANDARDPerformed By: #### CMP #### [facility] ([address] [place] [address] VIRGFR/1.73 sq M.predicted among non-blacks MDRD (S/P/Bld) [Vol rate/Area]30 mL/min/{1.73_m2}Low>=60ProMemorial Hermann [facility] Land HospitalComment on above:Result Comment: eGFR not reported due to non-numeric value for Creatinine. Reported eGFR is based on the CKD-EPI 2021 equation that does not use a race coefficient.Performed By: #### CMP #### [facility] ([address] [place] [address] VIRGlucose [Mass/Vol]166 mg/rBEnfr68-16PnnCcojlrMemorial Hermann Sugar Land HospitalComment on above:Performed By: #### CMP #### [facility] ([address] [place] [address] VIRPotassium [Moles/Vol]5.8 mmol/LHigh3.5-5.0ProMemorial [facility] HospitalComment on above:Performed By: #### CMP #### [facility] ([address] [place] [address] VIRProtein [Mass/Vol]7.0 g/dLNormal6.0-8.0ProMemorial Herm[facility] HospitalComment on above:Performed By: #### CMP #### [facility] ([address] [place] [address] VIRSodium [Moles/Vol]135 mmol/DMxjvfo521-006OvcFlfocn [facility] HospitalComment on above:Performed By: #### CMP #### [facility] ([address] [place] [address] VIRUrea nitrogen [Mass/Vol]33 mg/dLHigh5-27ProMemorial [facility] HospitalComment on above:Performed By: #### CMP #### [facility] ([address] [place] [address] VIRMAGNESIUMon 40-16-1559Hpnqxblaf [Mass/Vol]2.3 mg/dLNormal 1.8-2.6ProMemorial Hermann [facility] HospitalComment on above:Performed By: #### MG #### [facility] ([address] [place] [address] VIRTROP I, HIGH SENSITIVITY 1 HOURon 58-64-7895ALNOVHPA I, HIGH SENSITIVITY8 ng/LNormal<21ProMemorial [facility] HospitalComment on above: Performed By: #### [id number] #### [facility] ([address] [place] [address] VIRTROPONIN I, HIGH SENSITIVITY 0 HOURon 59-29-6971UGBBXSDR I, HIGH SENSITIVITY7 ng/LNormal<21[facility] HospitalComment on above: Performed By: #### [id number] #### [facility] ([facility]) [address] [place] [address] VIRURINALYSIS WITH MICROSCOPICon 77-59-6389PPGRXHODS, TOTAL PRESENCE IN URINENegativeNormalNegativeUnAdena Fayette Medical Center Comment on above:Performed By: #### [id number] ####[facility] ([place])[address], [place] [address]MJVOT IN URINEPresentAbnormalNone SeenUnAdena Fayette Medical CenterComment on above:Performed By: #### [id number] ####[facility] ([place])[address], [place] [address]Hgbyiye (U)ClearNormal ClearUnAdena Fayette Medical CenterComment on above:Performed By: #### [id number] ####[facility] ([facility])[address], [place] [address]Xgtvz (U)YellowNormalColorless, Yellow, Light-YellowUnAdena Fayette Medical CenterComment on above:Performed By: #### [id number] ####[facility] ([facility])[address], [place] [address]LOPFMZS (MG/DL) IN URINENormalNormal NormalUnAdena Fayette Medical CenterComment on above:Performed By: #### [id number] ####[facility] ([facility])[address] [place] [address] HEMOGLOBIN PRESENCE IN URINENegativeNormalNegativeUnAdena Fayette Medical CenterComment on above:Performed By: #### [id number] ####[facility] ([place])[address], [place] [address]DAVAGET CASTS GRADED/LPF IN URINE SEDIMENT BY QPOOECSEVC35-43Yzkzprke2-0Hgswftfubh of [place] Medical CenterComment on above:Performed By: #### [id number] ####[facility] ([facility])[address], [place] [address]Saaarwj Ql (U)NegativeNormalNegativeUnAdena Fayette Medical CenterComment on above:Performed By: #### [id number] ####[facility] ([facility])[address], [place] [address]WMUASXNWW ESTERASE PRESENCE IN URINE BY TEST STRIPNegativeNormalNegativeUnAdena Fayette Medical CenterComment on above:Performed By: #### [id number] ####[facility] ([place])[address], [place] [address]EAJUJ (#/LPF) IN URINE SEDIMENT OccasionalNormalNone Seen, Occasional, FewUnAdena Fayette Medical Center Comment on above:Performed By: #### [id number] ####[facility] ([facility])[address], [place] [address]OENGEXU PRESENCE IN URINENegativeNormalNegative [facility] GlenbeighComment on above:Performed By: #### [id number] ####[facility])[address], [place] [address]eP (U)5.5 [pH] Normal5.0-8.0UnAdena Fayette Medical CenterComment on above:Performed By: #### [id number] ####[facility] ([facility])[address] [place] [address] Protein (U) [Mass/Vol]NegativeNormalNegativeUnAdena Fayette Medical Center Comment on above:Performed By: #### [id number] ####[facility] ([facility])[address], [place] [address]QQX (#/HPF) IN URINE SEDIMENT0-2NormalNone Seen, 0-2UnAdena Fayette Medical CenterComment on above:Performed By: #### [id number] ####[facility] ([facility])[address], [place] [address]Stjjpdzw gravity (U) [Rel density]1.983Zuedpy9.010-1.030UnAdena Fayette Medical CenterComment on above:Performed By: #### [id number] ####[facility] ([place])[address] [place], [place] [address]MYZYAZMO EPITHELIAL CELLS (#/LPF) IN URINE SEDIMENTNone SeenNormalNone Seen, Occasional, FewUnAdena Fayette Medical CenterComment on above:Performed By: #### [id number] ####[facility] ([place])[address] [place], [place] [address]FUNMNGRLGBQV (MG/DL) IN URINENormal NormalNormalUniversSalem Regional Medical CenterComment on above:Performed By: #### [id number] ####[facility] ([place])[address] [place], [place] [address]DJB (LEUKOCYTE) (#/HPF) IN URINE SEDIMENT0-2NormalNone Seen, 0-2UnAdena Fayette Medical CenterComment on above:Performed By: #### [id number] ####[facility] ([place])[address] [place], [place] [address]VKSPD CULTURE, ROUTINEon 08-10-2025 Bacteria identified Cx Nom (U)No growth at 48 hoursNoToledo HospitalComment on above:Performed By: #### [id number] ####[facility])[address] [place], [place] [address]Nqdiyv Visiton 90-00-6669Dkafxr-up [id number] Trae Pineda 1950 M Date Provider Department Center 07/20/2025 FRANKO GRAHAM [facility] Family History Problem Relation Age of Onset Heart failure Mother Prostate cancer Father Coronary artery disease Brother Family Status - Relation Status Age at Mother Father Brother Level of Service:57312 UT OFFICE/OUTPATIENT NEW MODERATE MDM 45 MINUTESNormal [facility]on [id number] request received for Ezra. Pt has upcoming appt scheduled for 08/10/25. Please advise.NormalUnAdena Fayette Medical CenterOrders Onlyon [id number] Trae Pineda 1950 M Date Provider Department Center 05/27/2025 [id number], [facility] BOB [facility] Family History Problem Relation Age of Onset Heart failure Mother Prostate cancer Father Coronary artery disease Brother Family Status - Relation Status Age at Mother Father Brother DeceasedHca Midwest DivisionalUniMark V[place] [address]on Patient is requesting a medication refill to be sent to pharmacy. Thank you This phone message was created by the Ambulatory float staff. If you need collection support specialist follow up regarding this patient, please make your appropriate clinic staff member aware. Thank you. [facility] [facility] Hemoglobin [Mass/volume] in BloodOrdered By: Moi Moss on 05-11-2025 Hemoglobin (Bld) [Mass/Vol]12.6 g/dLLow14.0-18.0[facility]illicothe HospitalFollow-Upon [id number] Trae Pineda 1950 M Date Provider Department Center 04/28/2025 [facility] B[facility] [place]ragon Family History Problem Relation Age of Onset Heart failure Mother Prostate cancer Father Coronary artery disease Brother Family Status - Relation Status Age at Mother Father Brother Level of Service:78284 UT OFFICE/OUTPATIENT ESTABLISHED MOD [facility] [id number] Of Present Illness Trae Pineda is a 75 y.o. male presenting with Hx of CAD, CABG, PCI. Now with Chest heaviness and SOB on occasional. Has had some fast heart rate. Past Medical History He has a past medical history of Anxiety, BPH (benign prostatic hyperplasia), Chronic bacterial prostatitis, COPD (chronic obstructive pulmonary disease) (CMS/HCC), Coronary artery disease, non-occlusive, Depression, Diabetes mellitus (CMS/HCC), Erectile dysfunction, Hyperlipemia, Hypertension, Hypogonadism in male, Kidney stone, and Sleep apnea. Surgical History He has a past surgical history that includes Appendectomy; Carpal tunnel release; Cardiac catheterization; Cystoscopy; Coronary artery bypass graft; and Prostate surgery. Social History He reports that he quit smoking about 42 years ago. His smoking use included cigarettes. He has never been exposed to tobacco smoke. He has never used smokeless tobacco. He reports that he does not drink alcohol and does not use drugs. Allergies Pregabalin, Gvxpgbs-pxl-xwm reductase inhibitors, and Hydralazine Medications Medications Prior to Admission Medication Sig Dispense Refill Last Dose alpha lipoic acid 200 mg capsule 200 Units in the morning and at bedtime. 03/25/2025 amLODIPine (Norvasc) 2.5 mg tablet Take 1 tablet (2.5 mg) by mouth in the morning. Take in addition to the 5 mg tablet for a total of 7.5 mg daily. 90 tablet 3 03/24/2025 amLODIPine (Norvasc) 5 mg tablet Take 1 tablet (5 mg) by mouth in the morning. 90 tablet 3 03/24/2025 aspirin 81 mg EC tablet Take 1 tablet every day by oral route. 03/25/2025 dutasteride (Avodart) 0.5 mg capsule TAKE 1 CAPSULE (0.5 MG) BY MOUTH IN THE MORNING. 90 capsule 3 03/25/2025 evolocumab (Repatha Syringe) 140 mg/mL syringe Inject 1 mL under the skin every 14 (fourteen) days. 6 mL 3 Past Week ezetimibe (Zetia) 10 mg tablet TAKE 1 TABLET EVERY MORNING 90 tablet 3 03/24/2025 fluticasone (Flonase) 50 mcg/actuation nasal spray Administer 2 sprays into each nostril in the morning. Shake gently. Before first use, prime pump. After use, clean tip and replace cap. 03/25/2025 lisinopril 5 mg tablet Take 1 tablet (5 mg) by mouth in the morning. 90 tablet 3 03/25/2025 loratadine (Claritin Reditabs) 10 mg disintegrating tablet Take 10 mg by mouth in the morning. Past Month metoprolol succinate XL (Toprol-XL) 25 mg 24 hr tablet Take 0.5 tablets (12.5 mg) by mouth in the morning. Do not crush or chew. 45 tablet 3 03/25/2025 mirabegron (Myrbetriq) 50 mg tablet extended release 24 hr Take 1 tablet (50 mg) by mouth once daily as directed. 90 tablet 2 03/25/2025 gc-clq-CS-vit O-hdmjhj-zsevale (PreserVision AREDS 2 Plus MV) 200 mcg-15 mcg- 5 mg-1 mg capsule Take by mouth. 03/24/2025 NovoLIN 70-30 FlexPen U-100 100 unit/mL (70-30) injection pen 40 units am, 30 units pm 03/24/2025 ranolazine (Ranexa) 500 mg 12 hr tablet Take 1 tablet by mouth in the morning and at bedtime. 03/25/2025 tadalafil (Cialis) 5 mg tablet TAKE 1 TABLET BY MOUTH EVERY DAY IN THE MORNING 30 tablet 11 03/24/2025 testosterone 20.25 mg/1.25 gram (1.62 %) gel in metered-dose pump PLACE 2 PUMPS ON THE SKIN ONCE EVERY MORNING 75 g 2 03/24/2025 acetaminophen (Tylenol) 500 mg tablet 500 mg every 6 (six) hours. alfuzosin (Uroxatral) 10 mg 24 hr tablet TAKE 1 TABLET BY MOUTH IN THE MORNING, DO NOT CRUSH, CHEW, OR SPLIT (Patient not taking: Reported on 02/17/2025) 90 tablet 2 ascorbic acid (Vitamin C) 500 mg tablet Take 1 tablet by mouth in the morning. Not Taking BD Ultra-Fine Short Pen Needle 31 gauge x 5/16 needle USE TO INJECT INSULIN DAILY calcium carbonate 600 mg calcium (1,500 mg) tablet Take 600 mg by mouth. Not Taking cyanocobalamin (Vitamin B-12) 1,000 mcg tablet Take 5,000 mcg by mouth in the morning. FreeStyle Singh 2 Plus Sensor device TO TEST BLOOD SUGAR DAILY insulin NPH, Isophane, (HumuLIN N,NovoLIN N) 100 unit/mL injection vial Inject under the skin before breakfast and before evening meal. sildenafil (Viagra) 100 mg tablet Take 1 tablet (100 mg) by mouth if needed for erectile dysfunction. (Patient not taking: Reported on 03/25/2025) 10 tablet 1 Not Taking Review of Systems Constitutional: Positive for malaise/fatigue. Cardiovascular: Positive for chest pain (chest heaviness when I get out of breath from exertion), dyspnea on exertion (stable), leg swelling (with standing during the day) and palpitations (once in awhile). Musculoskeletal: Positive for arthritis, back pain and joint pain. Neurological: Positive for excessive daytime sleepiness and light-headedness. All other systems reviewed and are negative. Physical Exam Constitutional: Appearance: He is well-developed. He is obese. He is not ill-appearing. HENT: Head: Normocephalic and atraumatic. Nose: Nose normal. Eyes: General: No scleral icterus. Pupils: Pupils are equal, round, and reactive to light. Neck: Thyroid: No thyromegaly. Vascular: No JVD. Cardiova (more content not included)...NormalACMC Healthcare System Glenbeigh NURSNOTEon [id number] educated pt on d/c instructions. This included: site care, limited physical activity, resume normal diet, future appointments, medications, and moderate sedation instructions. RN educated pt on when to notify physician and when to go to the hospital. RN educated pt on importance of not overusing stairs at this time and limited weight bearing of 5lbs. RN encouraged pt to voice any questions or concerns, and answered any questions or concerns if pt verbalized. Pt was wheeled off of unit with all of belongings.NormalUnAdena Fayette Medical CenterBasophils Auto (Bld) [#/Vol]on 84-91-9808Xpapnsgeg (Bld) [#/Vol] 0.1 10 3/uL0.0-0.1FMansfield HospitalBasophils/100 WBC Auto (Bld) on 41-73-4663Iqhsuokhq/100 WBC (Bld)1.3 %0.2-2.0[facility]illicothe HospitalEosinophils/100 WBC Auto (Bld)on 43-37-2524Durzyvkgzbn/100 WBC (Bld)6.4 % 0.9-7.0Ch[facility]othe HospitalErythrocyte distribution width Auto (RBC) [Ratio]on 67-74-6722Wvdzitcojuw distribution width (RBC) [Ratio]13.5 % 11.0-15.0Ch[facility] HospitalEstimated glomerular filtration rate (GFR) non- Americanon 62-09-1958PNG/1.73 sq M.predicted among non-blacks MDRD (S/P/Bld) [Vol rate/Area]38 mL/min/{1.73_m2}Low>=60 mL/min/1.73m 2FAvita Health System Galion Hospital CenterGlucose mean value [Mass/volume] in Blood Estimated from glycated hemoglobinon 70-72-1450Arymcpi glucose Estimated from glycated hemoglobin (Bld) [Mass/Vol]154 mg/dLChillicothe HospitalHematocrit Auto (Bld) [Volume fraction]on 44-52-3330Abtrkfherr (Bld) [Volume fraction]40.4 %Low42.0-54.0Ch[facility] HospitalHemoglobin A1c percentageon 49-55-6053JiD5r (Bld) [Mass fraction]7.0 %High4.5-6.2FMansfield HospitalComment on above:ADA RECOMMENDED LIMIT 4.0 - 6.0ADA THERAPEUTIC TARGET < 7.0ACTION SUGGESTED> 7.0Hemoglobin [Mass/volume] in Bloodon 54-27-1110Kplxqvizug (Bld) [Mass/Vol]13.5 g/dLLow14.0-18.0[facility] Laboratory - Chemistry and Chemistry - challengeon 24-10-9661Phajgkf [Mass/Vol] 9.2 mg/dL8.5-10.1FMansfield HospitalChloride [Moles/Vol]101 mmol/L 98-107Chillicothe HospitalCO2 [Moles/Vol]27.6 mmol/L21.0-32.0 [facility] HospitalCreatinine [Mass/Vol]1.73 mg/dLHigh0.70-1.30 [facility] HospitalGFR/1.73 sq M.predicted MDRD (S/P/Bld) [Vol rate/Area]47 mL/min/{1.73_m2}Low>=60 mL/min/1.73m 2FMansfield HospitalGlucose [Mass/Vol]194 mg/kLRgow33-398RvkqliaxwChillicothe Hospital Potassium [Moles/Vol]5.1 mmol/L3.5-5.1FMercy Healthodium [Moles/Vol]138 mmol/U790-836SlckdjjmdChillicothe HospitalUrea nitrogen [Mass/Vol]34.0 mg/dLHigh7.0-18.0Ch[facility]othe HospitalUrea nitrogen/Creatinine [Mass ratio]19.7 mg/mgChillicothe Hospital Laboratory - Hematology and Cell countson 81-57-6785Wbxffhez granulocytes/100 WBC (Bld)0.3 %0.0-0.5FMansfield HospitalLeukocytes [#/volume] corrected for nucleated erythrocytes in Blood by Automated counon 68-19-2462WZW corrected for nucl RBC Auto (Bld) [#/Vol]6.9 10 3/uL4.0-11.0Chillicothe HospitalLymphocytes Auto (Bld) [#/Vol]on 77-99-0435Jmankvvivdg (Bld) [#/Vol]1.5 10 3/uL1.2-3.8Ch[facility]othe HospitalLymphocytes/100 WBC Auto (Bld)on 96-39-7892Babrhkujmko/100 WBC (Bld)21.6 %20.5-60.0Adena [facility]ayette Medical CenterH Auto (RBC) [Entitic mass]on 39-85-6252PNI (RBC) [Entitic mass]30.8 pg25.9-34.0Ch[place] HospitalMCHC Auto (RBC) [Mass/Vol]on 63-55-1227AQCN (RBC) [Mass/Vol]33.4 g/dL29.9-35.2FMansfield HospitalMCV Auto (RBC) [Entitic vol]on 32-46-9373ZJM (RBC) [Entitic vol] 92.0 fL80.0-94.0Ch[facility] HospitalMonocytes Auto (Bld) [#/Vol]on 00-98-8119Anlrikiep (Bld) [#/Vol]0.6 10 3/uL0.3-0.8Ch[facility] HospitalMonocytes/100 WBC Auto (Bld)on 29-79-1661Vyfaqfzyr/100 WBC (Bld)8.3 % 1.7-12.0[facility] HospitalNeutrophils Auto (Bld) [#/Vol]on 59-01-6825Uzvadsgnbpi (Bld) [#/Vol]4.3 10 3/uL1.4-6.5FMansfield HospitalNeutrophils/100 WBC Auto (Bld)on 32-16-9019Jojtkaicvwr/100 WBC (Bld)62.1 % 43.0-75.0Ch[facility]icothe HospitalNo Panel Informationon 03-19-2025 Eosinophils # (Auto)0.4 10 3/uL0.0-0.7FMansfield HospitalImmature Granulocyte # (Auto)0.02 10 3/uL0.00-0.03[facility] Platelet mean volume Auto (Bld) [Entitic vol]on 75-33-8549Vbjuvqcp mean volume (Bld) [Entitic vol]11.4 fL9.5-13.5FMansfield HospitalPlatelets Auto (Bld) [#/Vol]on 51-92-4573Hpqasedba (Bld) [#/Vol]177 10 3/fX743-315 [facility] HospitalRBC Auto (Bld) [#/Vol]on 97-96-4000TGO (Bld) [#/Vol]4.39 10 6/uLLow4.70-6.10Nationwide Children's Hospitalerum or plasma anion gap determinationon 89-17-0961Yhzzj gap [Moles/Vol]14.5 mmol/LFMansfield HospitalMain OR Intraoperative Recordon 77-31-5814Ccyx OR Intraoperative RecordMain OR Intraoperative Record IntraOp Document Type FTPM Summary Primary Physician: John Cannon DO Finalized Date/Time: 03/16/25 09:58:11 Pt. Name: TRAE PINEDA/Sex: 1950 Male Med Rec #: [id number] Physician: John Cannon DO Financial #: [id number] Pt. Type: P Room/Bed: / Admit/Disch: 03/16/25 08:09:58 - Institution: Case Times FTPM Entry 1 Patient Times In Room 03/16/25 09:33:00 Out Room 03/16/25 09:58:00 Procedure Times Start 03/16/25 09:36:00 Stop 03/16/25 09:57:00 Anesthesia Times Last Modified By: Naeem PEREZ, Lula Schuler 03/16/25 09:57:55 Case Attendance FTPM Entry 1 Entry 2 Entry 3 Case Attendee John Cannon DO, RN, Lula Castro RN, Deysi Smith Role Performed Surgeon - Primary Drapery Operator - Primary Scrub - Primary Time In 03/16/25 09:33:00 03/16/25 09:33:00 03/16/25 09:33:00 Time Out 03/16/25 09:58:00 03/16/25 09:58:00 03/16/25 09:58:00 Procedure LUMBAR RADIO FREQUENCY LUMBAR RADIO FREQUENCY LUMBAR RADIO FREQUENCY ABLATION(Bilateral) ABLATION(Bilateral) ABLATION(Bilateral) Comments Last Modified By: Naeem PEREZ, Lula Hartley RN, Lula Tavares RN 03/16/25 09:57:56 03/16/25 09:57:56 03/16/25 09:57:56 Entry 4 Case Attendee Belen Hurley Role Performed Gun Striper Time In 03/16/25 09:33:00 Time Out 03/16/25 09:58:00 Procedure LUMBAR RADIO FREQUENCY ABLATION(Bilateral) Comments Last Modified By: Lula Hartley RN 03/16/25 09:57:56 Perioperative Protocols FTPM Pre-Care Text: Implements protective measures prior to operative or invasive procedure, confirms identity before the operative or invasive procedure, verifies operative procedure, surgical site, and laterality Entry 1 Procedure(s) LUMBAR RADIO FREQUENCY Patient Identity Birthday, ID Band ABLATION(Bilateral) Verified (select at Check, Patient least 2): Participation Consents / H and P H&P, Surgery/Procedure Operative Site Present Verified Consent Marking Verified Surgical Site Yes Laterality Verified Yes Verified Procedure Verified Yes Correct Patient Yes Position Verified Availability Equipment, Medication, Prep Dry Yes Verified (If X-ray Applicable) PreOp Antibiotic No Time Out Naeem PEREZ, Lula Schuler, Given Abhijit Castro RN, Davis Mathew DO, Bradford A., Belen Hurley Time Out Complete 03/16/25 09:33:00 Outcomes Met? Yes Last Modified By: Lula Hartley RN 03/16/25 09:40:57 Post-Care Text: The patient is free from signs and symptoms of injury caused by extraneous objects Allergy Information FTPM Pre-Care Text: Verifies allergies Entry 1 Allergies Reviewed? Yes Allergies Reviewed Self/Patient With Outcomes Met? Yes Last Modified By: Lula Hartley RN 03/16/25 09:27:49 Post-Care Text: The patient received appropriate medication(s) safely administered during the perioperative period Surgical Procedures FTPM Entry 1 Procedure Description Procedure LUMBAR RADIO FREQUENCY Modifiers Bilateral ABLATION Surgeon Description MB RFA COVERING THE L4-S1 FACET JTS Primary Procedure Yes Primary Surgeon John Cannon DO Start 03/16/25 09:36:00 Stop 03/16/25 09:57:00 Anesthesia Type None Surgical Service Pain Management Wound Class 1 - Clean Last Modified By: Lula Hartley RN 03/16/25 09:58:08 General Case Data FTPM Pre-Care Text: Classifies surgical wound, implements aseptic technique, initiates traffic control Entry 1 Case Information OR Pain Proc Room Case Level Level 2 Wound Class 1 - Clean Specialty Pain Management Preop Diagnosis M47.816 Postop Same As Preop Yes Postop Diagnosis M47.816 Outcomes Met? Yes Last Modified By: Lula Hartley RN 03/16/25 09:41:08 Post-Care Text: The patient is free from signs and symptoms of infection Skin Assessment (Pre Procedure) FTPM Pre-Care Text: Implements protective measures to prevent skin/ tissue injury due to thermal or mechanical sources Evaluates for signs and symptoms of physical injury to skin and tissue Entry 1 Skin Integrity Intact, [place], Warm, & Skin Abnormality No Dry Outcomes Met? Yes Last Modified By: Lula Hartley RN 03/16/25 09:31:53 Post-Care Text: The patient is free from signs and symptoms of injury caused by extraneous objects Patient Positioning FTPM Pre-Care Text: Identifies physical alterations that require additional precautions for procedure-specific positioning, verifies presence of prosthetics or corrective devices, positions the patient, evaluates the patient for signs and symptoms of injury as a result of positioning Entry 1 Procedure LUMBAR RADIO FREQUENCY Body Position Prone ABLATION(Bilateral) Feet Uncrossed? Yes Left Arm Position Resting at Side Right Arm Position Resting at Side Left Leg Position Extended Right Leg Position Extended Positioning Device Pillow Under Head Large, Safety Strap, Pillow Large Under Knees (more content not included)...NormalOhio Valley HospitalMain OR Preoperative Recordon 90-16-5955Vzat OR Preoperative RecordMain OR Preoperative Record Holding Area Document Type FTPM Summary Primary Physician: John Cannon DO Finalized Date/Time: 03/16/25 08:23:13 Pt. Name: TRAE PINEDA /Sex: 1950 Male Med Rec #: [id number] Physician: John Cannon DO Financial #: [id number] Pt. Type: P Room/Bed: / Admit/Disch: 03/16/25 08:09:58 - Institution: Case Times Holding FTPM Pre-Care Text: Verifies consent for planned procedure, identifies individual values and wishes concerning care, includes family members in perioperative teaching Secures patient's records' belongings, and valuables, maintains patient's dignity and privacy, and maintains patient confidentiality Entry 1 In Holding 03/16/25 08:21:00 Outcomes Met? Yes Last Modified By: Ester Fong RN 03/16/25 08:21:14 Post-Care Text: The patient participates in decisions affecting his or her perioperative plan of care The patient'sright to privacy is maintained Surgery Checklist FTPM Entry 1 Patient Birthday, ID Band Procedure History and Physical, Identification: Check, Patient Verification: Surgical Consent, With Participation Patient NPO after Midnight: No Results Reviewed 0730 cheerios Comments: Personal Items: Dentures, Glasses, Personal Items Patient wearing Jewelry Comment: glasses, right side hearing aid, med-alert bracelet, and partial lower dentures. Complaints of Pain: Yes Pain Comment: 06/27 low back pain Operative Site Yes Marked By: Dr. Cannon Marking: Location: Bilateral L4-S1 Availability Equipment, Implants, Verified: X-Ray Does Patient Smoke No Patient states Yes Comment - Adult Ray postop adult Supervision supervision available Case Cancelled in No Holding Area see comments below for reason Last Modified By: Ester Fong RN 03/16/25 08:23:10 Finalized By: Etser Fong RN Document Signatures Signed By: Ester Fong RN 03/16/25 08:23[facility] HospitalOperative Reporton [id number] ReportOperative Report Diagnosis: M47.816, bilateral lumbar spondyloarthropathy Procedure: Bilateral lumbar medial branches/posterior rami radiofrequency ablation to target the facet joints of L4/5 and L5/S1 Anesthesia: Local Complications: None After informed consent was obtained, the patient was brought to the procedure room and placed in the prone position. The back area is prepped and draped in usual sterile fashion. The patient was placed on monitors. Using fluoroscopic guidance skin and subcutaneous tissue overlying needle trajectories to the target sites were anesthetized with 2% lidocaine. 20-gauge radiofrequency needles were advanced under fluoroscopic guidance to the appropriate anatomic landmarks. Needle tip position was confirmed on both sides in both the AP and lateral views. Next, all levels on the right were stimulatedat 2Hz for motor stimulation at 2.0V with no lower extremity motor contractions. Next 1.0mL of 2.0%lidocaine was injected through each needle tip. Thereafter, radiofrequency lesioning was carried out at 80 degrees for 80 seconds twice. Next, all levels on the left were stimulated at 2Hz for motor stimulation at 2.0V with no lower extremity motor contractions. Next 1.0mL of 2.0% lidocaine was injected through each needle tip. Thereafter, radiofrequency lesioning was carried out at 80 degrees for 80 seconds twice. The needles were removed. The patient was then transferred to the recovery room in stable condition. Postprocedure lower extremity strength 5/5 bilaterally in hip flexors, quads, hamstrings, plantarflexion/dorsiflexion/FHL/EHL. Follow-up: Discharge instructions provided. The patient agrees to continue currently prescribed/recommended therapies.[facility] HospitalComment on above:Result Comment: Electronically Signed By: John Cannon DO\.br\Date and Time Signed: 03/16/25 09:59 EDTAbstracton [id number] Trae Pineda 1950 M Date Provider Department Center 03/01/2025 MOI [facility]ILL[facility] Medical Family History Problem Relation Age of Onset Heart failure Mother Prostate cancer Father Coronary artery disease Brother Family Status - Relation Status Age at Mother Father Brother DeceasedNormalUniversity of Texoma Medical CenterMain OR Intraoperative Recordon [id number] OR Intraoperative RecordMain OR Intraoperative Record IntraOp Document Type [facility] Summary Primary Physician: John Cannon DO Finalized Date/Time: 02/22/25 09:44:26 Pt. Name: TRAE PINEDA Lorenzo MinayaB./Sex: 1950 Male Med Rec #: [id number] Physician: John Cannon DO Financial #: [id number] Pt. Type: P Room/Bed: / Admit/Disch: 02/22/25 08:57:58 - Institution: Case Times FTPM Entry 1 Patient Times In Room 02/22/25 09:34:00 Out Room 02/22/25 09:43:00 Procedure Times Start 02/22/25 09:37:00 Stop 02/22/25 09:42:00 Anesthesia Times Last Modified By: Deysi Castro RN 02/22/25 09:43:21 Case Attendance FTPM Entry 1 Entry 2 Entry 3 Case Attendee John Cannon DO, RN, Deysi Keith RN, Toni Toledo Role Performed Surgeon - Primary Drapery Operator - Primary Scrub - Primary Time In 02/22/25 09:34:00 02/22/25 09:34:00 02/22/25 09:34:00 Time Out 02/22/25 09:43:00 02/22/25 09:43:00 02/22/25 09:43:00 Procedure MEDIAL BRANCH MEDIAL BRANCH MEDIAL BRANCH BLOCK(Bilateral) BLOCK(Bilateral) BLOCK(Bilateral) Comments Last Modified By: Matthew PEREZ, Deysi Castro RN, Deysi Clemente RN 02/22/25 09:43:22 02/22/25 09:43:22 02/22/25 09:43:22 Entry 4 Case Attendee Belen Hurley Role Performed Gun Striper Time In 02/22/25 09:34:00 Time Out 02/22/25 09:43:00 Procedure MEDIAL BRANCH BLOCK(Bilateral) Comments Last Modified By: Deysi Castro RN 02/22/25 09:43:22 Perioperative Protocols FTPM Pre-Care Text: Implements protective measures prior to operative or invasive procedure, confirms identity before the operative or invasive procedure, verifies operative procedure, surgical site, and laterality Entry 1 Procedure(s) MEDIAL BRANCH Patient Identity Birthday, ID Band BLOCK(Bilateral) Verified (select at Check, Patient least 2): Participation Consents / H and P H&P, Surgery/Procedure Operative Site Present Verified Consent Marking Verified Surgical Site Yes Laterality Verified Yes Verified Procedure Verified Yes Correct Patient Yes Position Verified Availability Equipment, Medication, Prep Dry Yes Verified (If X-ray Applicable) PreOp Antibiotic No Time Out Deysi Castro RN, Harvey RN, Davis Elkins DO, Bradford A., Daniel, Alissa M Time Out Complete 02/22/25 09:35:00 Outcomes Met? Yes Last Modified By: Deysi Casrto RN 02/22/25 09:35:50 Post-Care Text: The patient is free from signs and symptoms of injury caused by extraneous objects Allergy Information FTPM Pre-Care Text: Verifies allergies Entry 1 Allergies Reviewed? Yes Allergies Reviewed Self/Patient With Outcomes Met? Yes Last Modified By: Deysi Castro RN 02/22/25 09:34:42 Post-Care Text: The patient received appropriate medication(s) safely administered during the perioperative period Surgical Procedures FTPM Entry 1 Procedure Description Procedure MEDIAL BRANCH BLOCK Modifiers Bilateral Surgeon Description LUMBAR MBB TO TARGET L4/5+L5/S1 FACETS W/FLUORO Primary Procedure Yes Primary Surgeon John Cannon DO Start 02/22/25 09:37:00 Stop 02/22/25 09:42:00 Anesthesia Type None Surgical Service Pain Management Wound Class 1 - Clean Last Modified By: Deysi Castro RN 02/22/25 09:43:23 General Case Data FTPM Pre-Care Text: Classifies surgical wound, implements aseptic technique, initiates traffic control Entry 1 Case Information OR Pain Proc Room Case Level Level 2 Wound Class 1 - Clean Specialty Pain Management Preop Diagnosis M47.816 Postop Same As Preop Yes Postop Diagnosis M47.816 Outcomes Met? Yes Last Modified By: Deysi Castro RN 02/22/25 09:36:17 Post-Care Text: The patient is free from signs and symptoms of infection Skin Assessment (Pre Procedure) FTPM Pre-Care Text: Implements protective measures to prevent skin/ tissue injury due to thermal or mechanical sources Evaluates for signs and symptoms of physical injury to skin and tissue Entry 1 Skin Integrity Intact, [place], Warm, & Skin Abnormality No Dry Outcomes Met? Yes Last Modified By: Deysi Castro RN 02/22/25 09:34:57 Post-Care Text: The patient is free from signs and symptoms of injury caused by extraneous objects Patient Positioning FTPM Pre-Care Text: Identifies physical alterations that require additional precautions for procedure-specific positioning, verifies presence of prosthetics or corrective devices, positions the patient, evaluates the patient for signs and symptoms of injury as a result of positioning Entry 1 Procedure MEDIAL BRANCH Body Position Prone BLOCK(Bilateral) Feet Uncrossed? Yes Left Arm Position Resting at Side Right Arm Position Resting at Side Left Leg Position Extended Right Leg Position Extended Positioning Device Pillow Under Head Large, Safety Strap, Pillow Large Under Knees Press Points Checked Yes By Pr (more content not included)...[facility] CenterMain OR Preoperative Recordon [id number] OR Preoperative RecordMain OR Preoperative Record Holding Area Document Type FTPM Summary Primary Physician: John Cannon DO Finalized Date/Time: 02/22/25 09:08:31 Pt. Name: TRAE PINEDA/Sex: 1950 Male Med Rec #: [id number] Physician: John Cannon DO Financial #: [id number] Pt. Type: P Room/Bed: / Admit/Disch: 02/22/25 08:57:58 - Institution: Case Times Holding FTPM Pre-Care Text: Verifies consent for planned procedure, identifies individual values and wishes concerning care, includes family members in perioperative teaching Secures patient's records' belongings, and valuables, maintains patient's dignity and privacy, and maintains patient confidentiality Entry 1 In Holding 02/22/25 09:05:00 Outcomes Met? Yes Last Modified By: Ester Fong RN 02/22/25 09:05:45 Post-Care Text: The patient participates in decisions affecting his or her perioperative plan of care The patient'sright to privacy is maintained Surgery Checklist FTPM Entry 1 Patient Birthday, ID Band Procedure History and Physical, Identification: Check, Patient Verification: Surgical Consent, With Participation Patient NPO after Midnight: Yes Date/Time: 02/22/25 09:05:00 Results Reviewed n/a Personal Items: Dentures, Glasses Comments: Personal Items Patient wearing Complaints of Pain: Yes Comment: glassesa and lower partial dentures. Pain Comment: 06/27 low back pain Operative Site Yes Marking: Marked By: Dr. Cannon Location: Bilateral L4-S1 Availability Equipment, Implants, Verified: X-Ray Does Patient Smoke No Patient states Yes Comment - Adult Friend- Ray postop adult Supervision supervision available Case Cancelled in No Holding Area see comments below for reason Last Modified By: Ester Fong RN 02/22/25 09:08:28 Finalized By: Ester Fong RN Document Signatures Signed By: Ester Fong RN 02/22/25 09:08[facility] HospitalOffice Visiton 60-45-5373Cppwco-up [id number] Trae Pineda 1950 M Date Provider Department Center 02/17/2025 [facility] DHILLON [facility] Family History Problem Relation Age of Onset Heart failure Mother Prostate cancer Father Coronary artery disease Brother Family Status - Relation Status Age at Mother Father Brother Level of Service:48908 [place] OFFICE/OUTPATIENT ESTABLISHED HIGH MDM 40 [facility] HospitalFollow-Upon [id number] Trae Pineda 1950 M Date Provider Department Center 02/02/2025 DIONY GREENBERG [facility] Second Fl Family History Problem Relation Age of Onset Prostate cancer Father Family Status - Relation Status Age at Father Level of Service:40890 UT OFFICE/OUTPATIENT ESTABLISHED MOD MDM 30 MIN Reason for Visit and Comments: Follow-up [044193] - 3 month follow upNormalUniversSalem [facility] Main OR Intraoperative Recordon [id number] OR Intraoperative RecordMain OR Intraoperative Record IntraOp Document Type FTPM Summary Primary Physician: John Cannon DO Finalized Date/Time: 02/01/25 14:24:39 Pt. Name: TRAE PINEDA/Sex: 1950 Male Med Rec #: [id number] Physician: John Cannon DO Financial #: [id number] Pt. Type: P Room/Bed: / Admit/Disch: 02/01/25 13:48:51 - Institution: Case Times FTPM Entry 1 Patient Times In Room 02/01/25 14:16:00 Out Room 02/01/25 14:25:00 Procedure Times Start 02/01/25 14:19:00 Stop 02/01/25 14:24:00 Anesthesia Times Last Modified By: Lula Hartley RN 02/01/25 14:24:32 Case Attendance FTPM Entry 1 Entry 2 Entry 3 Case Attendee John Cannon DO, RN, Lula Castro RN, Deysi Smith Role Performed Surgeon - Primary Drapery Operator - Primary Scrub - Primary Time In 02/01/25 14:16:00 02/01/25 14:16:00 02/01/25 14:16:00 Time Out 02/01/25 14:25:00 02/01/25 14:25:00 02/01/25 14:25:00 Procedure MEDIAL BRANCH MEDIAL BRANCH MEDIAL BRANCH BLOCK(Bilateral) BLOCK(Bilateral) BLOCK(Bilateral) Comments Last Modified By: Naeem PEREZ, Lula Hartley RN, Lula Tavares RN 02/01/25 14:24:33 02/01/25 14:24:33 02/01/25 14:24:33 Entry 4 Case Attendee Belen Hurley Role Performed Gun Striper Time In 02/01/25 14:16:00 Time Out 02/01/25 14:25:00 Procedure MEDIAL BRANCH BLOCK(Bilateral) Comments Last Modified By: Lula Hartley RN 02/01/25 14:24:33 Perioperative Protocols FTPM Pre-Care Text: Implements protective measures prior to operative or invasive procedure, confirms identity before the operative or invasive procedure, verifies operative procedure, surgical site, and laterality Entry 1 Procedure(s) MEDIAL BRANCH Patient Identity Birthday, ID Band BLOCK(Bilateral) Verified (select at Check, Patient least 2): Participation Consents / H and P H&P, Surgery/Procedure Operative Site Present Verified Consent Marking Verified Surgical Site Yes Laterality Verified Yes Verified Procedure Verified Yes Correct Patient Yes Position Verified Availability Equipment, Medication, Prep Dry Yes Verified (If X-ray Applicable) PreOp Antibiotic No Time Out Naeem PEREZ, Lula Schuler, Tricia Castro RN, Deysi Smith, John Cannon DO, Daniel, Alissa M Time Out Complete 02/01/25 14:16:00 Outcomes Met? Yes Last Modified By: Lula Hartley RN 02/01/25 14:16:51 Post-Care Text: The patient is free from signs and symptoms of injury caused by extraneous objects Allergy Information FTPM Pre-Care Text: Verifies allergies Entry 1 Allergies Reviewed? Yes Allergies Reviewed Self/Patient With Outcomes Met? Yes Last Modified By: Lula Hartley RN 02/01/25 14:16:59 Post-Care Text: The patient received appropriate medication(s) safely administered during the perioperative period Surgical Procedures FTPM Entry 1 Procedure Description Procedure MEDIAL BRANCH BLOCK Modifiers Bilateral Surgeon Description MBB COVERING THE L4-S1 FACET JTS Primary Procedure Yes Primary Surgeon John Cannon DO Start 02/01/25 14:19:00 Stop 02/01/25 14:24:00 Anesthesia Type None Surgical Service Pain Management Wound Class 1 - Clean Last Modified By: Lula Hartley RN 02/01/25 14:24:36 General Case Data FTPM Pre-Care Text: Classifies surgical wound, implements aseptic technique, initiates traffic control Entry 1 Case Information OR Pain Proc Room Case Level Level 2 Wound Class 1 - Clean Specialty Pain Management Preop Diagnosis M47.816 Postop Same As Preop Yes Postop Diagnosis M47.816 Outcomes Met? Yes Last Modified By: Lula Hartley RN 02/01/25 14:17:07 Post-Care Text: The patient is free from signs and symptoms of infection Skin Assessment (Pre Procedure) FTPM Pre-Care Text: Implements protective measures to prevent skin/ tissue injury due to thermal or mechanical sources Evaluates for signs and symptoms of physical injury to skin and tissue Entry 1 Skin Integrity Intact, [place], Warm, & Skin Abnormality No Dry Outcomes Met? Yes Last Modified By: Lula Hartley RN 02/01/25 14:17:14 Post-Care Text: The patient is free from signs and symptoms of injury caused by extraneous objects Patient Positioning FTPM Pre-Care Text: Identifies physical alterations that require additional precautions for procedure-specific positioning, verifies presence of prosthetics or corrective devices, positions the patient, evaluates the patient for signs and symptoms of injury as a result of positioning Entry 1 Procedure MEDIAL BRANCH Body Position Prone BLOCK(Bilateral) Feet Uncrossed? Yes Left Arm Position Resting at Side Right Arm Position Resting at Side Left Leg Position Extended Right Leg Position Extended Positioning Device Pillow Under Head Large, Safety Strap, Pillow Large Under Knees Press Points Checked Yes By Naeem PEREZ, Lula Schuler Outcomes Met? Yes Last Modified By (more content not included)...[facility] Main OR Preoperative Recordon 81-23-4798Uqrz OR Preoperative RecordMain OR Preoperative Record Holding Area Document Type FTPM Summary Primary Physician: John Cannon DO Finalized Date/Time: 02/01/25 14:09:13 Pt. Name: EDWIN TRAE Lorenzo Anderson/Sex: 1950 Male Med Rec #: [id number] Physician: John Cannon DO Financial #: [id number] Pt. Type: P Room/Bed: / Admit/Disch: 02/01/25 13:48:51 - Institution: Case Times Holding FT Pre-Care Text: Verifies consent for planned procedure, identifies individual values and wishes concerning care, includes family members in perioperative teaching Secures patient's records' belongings, and valuables, maintains patient's dignity and privacy, and maintains patient confidentiality Entry 1 In Holding 02/01/25 14:07:00 Outcomes Met? Yes Last Modified By: Ester Fong RN 02/01/25 14:07:09 Post-Care Text: The patient participates in decisions affecting his or her perioperative plan of care The patient'sright to privacy is maintained Surgery Checklist FTPM Entry 1 Patient Birthday, ID Band Procedure History and Physical, Identification: Check, Patient Verification: Surgical Consent, With Participation Patient NPO after Midnight: No Date/Time: 02/01/25 14:07:00 Results Reviewed 1300 sandwich Personal Items: Dentures, Glasses, Comments: Jewelry Personal Items Patient wearing Complaints of Pain: Yes Comment: glasses, partial lower dentures and medical alert bracelet. Pain Comment: 8 low back pain Operative Site Yes Marking: Marked By: Dr. Cannon Location: Bilateral L4-S1 Availability Equipment, Implants, Verified: X-Ray Does Patient Smoke No Patient states Yes Comment - Adult Friend-Ray postop adult Supervision supervision available Case Cancelled in No Holding Area see comments below for reason Last Modified By: Ester Fong RN 02/01/25 14:09:10 Finalized By: Ester Fong RN Document Signatures Signed By: Ester Fong RN 02/01/25 14:09NormalFishGrace Medical CenterOrders Onlyon 75-73-8066Epslhn [id number] Trae Pineda 1950 M Date Provider Department Center 01/28/2025 ColtonDIONY ARIZA [facility] Second Fl Family History Problem Relation Age of Onset Prostate cancer Father Family Status - Relation Status Age at FatherNormalUniversity [facility]36on 24-31-301820Etcefn potassium 01/14/2025 is within normal range. 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 NOMS HealthcareNOND HealthcareTestosterone Cscfl014 ng/yL381-315DfmwjvymqChillicothe HospitalComment on above:Adult male reference interval is based on a population ofhealthy nonobese males (BMI <30) between 19 and 39 yearsold. jeancarlos Sullivan.al. JCEM 2017,102;9851-6851. PMID:[id number].Estimated glomerular filtration rate (GFR) non- Americanon 68-45-5267AIQ/1.73 sq M.predicted among non-blacks MDRD (S/P/Bld) [Vol rate/Area]Estimated glomerular filtration rate (GFR) non- AmericanLow>=60 mL/min/1.73m 2FMansfield HospitalLaboratory - Chemistry and Chemistry - challengeon 80-10-9980Jsvinqj [Mass/Vol]9.1 mg/dL8.5-10.1FMansfield HospitalChloride [Moles/Vol] 106 mmol/V47-126XhzwblmidChillicothe HospitalCO2 [Moles/Vol]25.6 mmol/L 21.0-32.0Chillicothe HospitalCreatinine [Mass/Vol]1.63 mg/dLHigh 0.70-1.30Chillicothe HospitalGFR/1.73 sq M.predicted MDRD (S/P/Bld) [Vol rate/Area]50 mL/min/{1.73_m2}Low>=60 mL/min/1.[address]m [address] [place], [place] [address]Glucose [Mass/Vol]162 mg/sORngw04-733DuvknpiciChillicothe HospitalPotassium [Moles/Vol]4.7 mmol/L3.5-5.1FMansfield Hospital Sodium [Moles/Vol]140 mmol/N717-139JrrinnjvuChillicothe HospitalUrea nitrogen [Mass/Vol]34.0 mg/dLHigh7.0-18.0Chillicothe HospitalUrea nitrogen/Creatinine [Mass ratio]20.9 mg/mgNationwide Children's Hospitalerum or plasma anion gap determinationon 17-67-2240Ujsei gap [Moles/Vol]Serum or plasma anion gap determinationChillicothe Hospital36on Regarding lab results from 12/28/2024: MD Tatiana Estrella MA Blood test is ok except for mildly elevated potassium. I want him to get another BMP in 2 weeks. Spoke with patient and he will have repeat BMP in 2 weeks. He verbalized understanding.NormalACMC Healthcare System GlenbeighTelephoneon 12-31-2024 [id number] EdwinTrae E 1950 M Date Provider Department Center 12/31/2024 [facility] Family History Problem Relation Age of Onset Prostate cancer Father Family Status - Relation Status Age at FatherNormalUniRegency Hospital ToledoEstimated glomerular filtration rate (GFR) non- Americanon 80-37-1094OIY/1.73 sq M.predicted among non- blacks MDRD (S/P/Bld) [Vol rate/Area]Estimated glomerular filtration rate (GFR) non- AmericanLow>=60 mL/min/1.73m [address] [place] [address] Laboratory - Chemistry and Chemistry - challengeon 15-83-8615Cfiutbv [Mass/Vol] 9.5 mg/dL8.5-10.1FMansfield HospitalChloride [Moles/Vol]105 mmol/L 98-107Chillicothe HospitalCO2 [Moles/Vol]29.9 mmol/L21.0-32.0 [facility] HospitalCreatinine [Mass/Vol]1.61 mg/dLHigh0.70-1.30 Chillicothe HospitalGFR/1.73 sq M.predicted MDRD (S/P/Bld) [Vol rate/Area]51 mL/min/{1.73_m2}Low>=60 mL/min/1.[address]m [address] [place], [place] [address]Glucose [Mass/Vol]131 mg/qHVfhx33-998JsvfujoprChillicothe Hospital Magnesium [Mass/Vol]2.4 mg/dL1.8-2.4FMansfield HospitalPotassium [Moles/Vol]5.2 mmol/LHigh3.5-5.1FMercy Healthodium [Moles/Vol]142 mmol/U293-809IyuvlzyqmChillicothe HospitalUrea nitrogen [Mass/Vol]33.0 mg/dLHigh7.0-18.0Chillicothe HospitalUrea nitrogen/Creatinine [Mass ratio]20.5 mg/mgChillicothe Hospital Office Visiton 42-33-9882Cgojug-up [id number] Trae Pineda 1950 M Date Provider Department Center 12/28/2024 MOI DHILLON Family History Problem Relation Age of Onset Prostate cancer Father Family Status - Relation Status Age at Father Level of Service:29266 UT OFFICE/OUTPATIENT ESTABLISHED MOD MDM 30 MINNormal University of Lindo Medical CenterSerum or plasma anion gap determinationon 34-53-8272Qcrgq gap [Moles/Vol]Serum or plasma anion gap determinationChillicothe HospitalMain OR Intraoperative Recordon 05-97-4443Geit OR Intraoperative RecordMain OR Intraoperative Record IntraOp Document Type FTPM Summary Primary Physician: John Cannon DO Finalized Date/Time: 12/07/24 08:53:30 Pt. Name: TRAE PINEDA /Sex: 1950 Male Med Rec #: [id number] Physician: John Cannon DO Financial #: [id number] Pt. Type: P Room/Bed: / Admit/Disch: 12/07/24 [...] 3 Case Attendee Franko Carrasquillo CRNA, DO, Deysi Flowers RN Role Performed Anesthesiologist Surgeon - Primary Drapery Operator - Primary Ring Spinner Time In 12/07/24 08:17:00 12/07/24 08:17:00 12/07/24 [...] Toni Casper RN, Julia Mathews Role Performed Gun Striper Scrub - Relief Scrub - Primary Time [...] Antibiotic Yes Time Out Deysi Castro RN, Pennie PEREZ, Davis Baires DO, Bradford A., Williams CRNA, [...] and tissue Entry 1 Skin Integrity Intact, [place], Warm, & Skin Abnormality No Dry Outcomes Met? Yes Last Modified By: Ricky (more content not included)...[facility] HospitalMain OR Preoperative Recordon 17-71-6405Rorq OR Preoperative RecordMain OR Preoperative Record Holding Area Document Type FTPM Summary Primary Physician: John Cannon DO Finalized Date/Time: 12/07/24 08:04:53 Pt. Name: TRAE PINEDA/Sex: 1950 Male Med Rec #: [id number] Physician: John Cannon DO Financial #: [id number] Pt. Type: P Room/Bed: / Admit/Disch: 12/07/24 [...] or her perioperative plan of care The patient'sright to privacy is maintained Surgery Checklist FTPM [...] RN 12/07/24 07:27 Barb Schmidt RN 12/07/24 08:04[facility] HospitalOperative Report on 25-06-9985Nymwtskxn ReportOperative Report Diagnosis: m48.062 lumbar stenosis with neurogenic [...] patient. Bony landmarks were then identified using f luoroscopy. Local anesthetic of 2.0% lidocaine with epinephrine was injected subcutaneously to anesthetize the needle bah to the appropriate anatomic landmarks bilaterally. Next, the cannula was then advanced in AP and contralateral views to the appropriate anatomic landmarks on the left side firs t. Once the working channel was in place, [...] then advanced into the appropriate space using vzob-qu-lzlwgegfjz and confirmed by fluoroscopy and contrast spread. [...] over the incision with a Tegaderm dressing. Thepatient was then brought to the postoperative area in stable condition without acute issue. Follow-Up: We will plan to follow-up with the patient post procedurally, all instructions were reviewed with the patient before leaving the discharge area. Patient voiced understanding of postprocedural plan and will call with any questions or issues periprocedurally.[facility] HospitalComment on above:Result Comment: Electronically Signed By: John Cannon DO.dawit\Date and Time Signed: 12/07/24 08:54 ESTDocumentationon 48-56-9960Oefdfhdbcnjuz [id number] Trae Pineda 1950 M Date Provider Department Center 12/02/2024 29733-CIWCZBRMORENITA POLANCO None Family History Problem Relation Age of Onset Prostate cancer Father Family Status - Relation Status Age at FatherNormalUniversity of Texoma Medical CenterBasophils Auto (Bld) [#/Vol]on 44-79-1554Enunhtqve (Bld) [#/Vol]Automated basophil count0.0-0.1FMansfield HospitalBasophils/100 WBC Auto (Bld)on 98-09-4281Uovtushwb/100 WBC (Bld)Automated basophil %0.2-2.0[facility] Eosinophils/100 WBC Auto (Bld)on 34-52-7640Bgdqmfnlbxx/100 WBC (Bld)Automated eosinophil %0.9-7.0Chillicothe HospitalErythrocyte distribution width Auto (RBC) [Ratio]on 70-63-6654Oupjktjsucu distribution width (RBC) [Ratio]Erythrocyte distribution width [Ratio] by Automated count11.0-15.0 [facility] HospitalGlucose mean value [Mass/volume] in Blood Estimated from glycated hemoglobinon 29-31-6778Cctotxt glucose Estimated from glycated hemoglobin (Bld) [Mass/Vol]Glucose mean value [Mass/volume] in Blood Estimated from glycated hemoglobinChillicothe HospitalHematocrit Auto (Bld) [Volume fraction]on 59-17-0414Ypdqnauyzz (Bld) [Volume fraction] Hematocrit [Volume Fraction] of Blood by Automated dvjjdAlq27.0-54.0[facility] HospitalHemoglobin [Mass/volume] in Bloodon 89-49-5091Btsvjimune (Bld) [Mass/Vol]Hemoglobin [Mass/volume] in KainaTsr92.0-18.0[facility] HospitalIron binding capacity [Mass/volume] in Serum or Plasmaon 83-05-5987Cbmm binding capacity [Mass/Vol]Iron binding capacity [Mass/volume] in Serum or Jiczkd833.0-450.0Ch[facility]icothe HospitalIron saturation [Mass Fraction] in Serum or Plasmaon 46-17-3707Vkti saturation [Mass fraction] Iron saturation [Mass Fraction] in Serum or PlasmaChillicothe HospitalLaboratory - Chemistry and Chemistry - challengeon 37-30-7763Fllwcvwjx (Vitamin B12) [Mass/Vol]462 pg/gX387-2971GmurwvphaChillicothe Hospital Comment on above:Performed at: [facility] [id number] Director: Derrick Smith PhD, Phone: [phone] [Mass/Vol]182.0 ng/mL26.0-388.0Chillicothe HospitalIron [Mass/Vol] 59.0 ug/dLLow65.0-175.0[facility] HospitalLaboratory - Hematology and Cell countson 05-98-8601YbM2p (Bld) [Mass fraction]7.0 %High4.5-6.2FMansfield HospitalComment on above:ADA RECOMMENDED LIMIT 4.0 - 6.0ADA THERAPEUTIC TARGET < 7.0ACTION SUGGESTED> 7.0Immature granulocytes/100 WBC (Bld) 0.3 %0.0-0.5FMansfield HospitalLeukocytes [#/volume] corrected for nucleated erythrocytes in Blood by Automated counon 81-70-6661PTG corrected for nucl RBC Auto (Bld) [#/Vol]Leukocytes [#/volume] corrected for nucleated erythrocytes in Blood by Automated coun4.0-11.0[facility] Lymphocytes Auto (Bld) [#/Vol]on 96-60-0029Ohhktxjnsnw (Bld) [#/Vol]Lymphocytes [#/volume] in Blood by Automated count1.2-3.8[facility] Lymphocytes/100 WBC Auto (Bld)on 74-08-4248Wngqojzuihv/100 WBC (Bld) Lymphocytes/100 leukocytes in Blood by Automated count20.5-60.0A[facility]a [facility]ayette Medical CenterH Auto (RBC) [Entitic mass]on 09-93-0895RWG (RBC) [Entitic mass]MCH [Entitic mass] by Automated count25.9-34.0Chillicothe HospitalMCHC Auto (RBC) [Mass/Vol]on 57-11-6156EXVT (RBC) [Mass/Vol]MCHC [Mass/volume] by Automated count29.9-35.2FMansfield HospitalMCV Auto (RBC) [Entitic vol]on 73-58-0514URJ (RBC) [Entitic vol]MCV [Entitic volume] by Automated count80.0-94.0[facility] HospitalMonocytes Auto (Bld) [#/Vol]on 33-46-9877Adcqnoimu (Bld) [#/Vol]Automated blood monocyte count0.3-0.8 [facility] HospitalMonocytes/100 WBC Auto (Bld)on 11-17-2024 Monocytes/100 WBC (Bld)Automated monocyte %1.7-12.0Ch[facility]icothe HospitalNeutrophils Auto (Bld) [#/Vol]on 59-64-0545Eczvhkojbqn (Bld) [#/Vol] Neutrophils [#/volume] in Blood by Automated count1.4-6.5FMansfield HospitalNeutrophils/100 WBC Auto (Bld)on 39-75-7857Aquhffkwhaw/100 WBC (Bld)Automated neutrophil %43.0-75.0Ch[facility]icothe HospitalNo Panel Informationon 79-88-7328Qcbfldsckys # (Auto)0.4 10 3/uL0.0-0.7FMansfield HospitalFolate12.10 ng/mL8.60-58.90[facility] Immature Granulocyte # (Auto)0.02 10 3/uL0.00-0.03Ch[facility]icothe HospitalPlatelet mean volume Auto (Bld) [Entitic vol]on 11-26-4472Vvreezwv mean volume (Bld) [Entitic vol]Platelet mean volume [Entitic volume] in Blood by Automated count9.5-13.5FMansfield HospitalPlatelets Auto (Bld) [#/Vol]on 71-93-2157Bqslbxldn (Bld) [#/Vol]Platelets [#/volume] in Blood by Automated vyyzl084-769ZzlyltdnyChillicothe HospitalRBC Auto (Bld) [#/Vol]on 37-24-1496ZTY (Bld) [#/Vol]Erythrocytes [#/volume] in Blood by Automated count Low4.70-6.10Ch[facility]icothe HospitalFollow-Upon 87-82-2402Nyxluz-Up [id number] Trae Pineda 1950 M Date Provider Department Center 11/03/2024 DIONY GREENBERG [facility] [place] Family History Problem Relation Age of Onset Prostate cancer Father Family Status - Relation Status Age at Father Level of Service:58391 UT OFFICE/OUTPATIENT ESTABLISHED MOD MDM 30 MIN Reason for Visit and Comments: Benign Prostatic Hypertrophy [[id number]] Hypogonadism [185] - Follow-up TRUS and labsNormalUniversity of Lindo Medical CenterOrders Onlyon 71-21-0681Suvxmi [id number] Trae Pineda 1950 M Date Provider Department Center 11/02/[address] [place] [address] U[place] Second Fl Family History Problem Relation Age of Onset Prostate cancer Father Family Status - Relation Status Age at FatherHca Midwest DivisionalUniRegency Hospital ToledoOrders Onlyon 53-11-4978Njpjxv [id number] Trae Pineda 1950 M Date Provider Department Center 10/27/[address] [place] [address] URO Second Fl Family History Problem Relation Age of Onset Prostate cancer Father Family Status - Relation Status Age at [facility] CenterMain OR Preoperative Recordon 43-17-7797Aazk OR Preoperative RecordMain OR Preoperative Record Holding Area Document Type FTPM Summary Primary Physician: John Cannon DO Finalized Date/Time: 09/08/24 10:57:05 Pt. Name: TRAE PINEDA Lorenzo Anderson/Sex: 1950 Male Med Rec #: [id number] Physician: John Cannon DO Financial #: [id number] Pt. Type: P Room/Bed: / Admit/Disch: 09/08/24 [...] or her perioperative plan of care The patient'sright to privacy is maintained Surgery Checklist FTPM [...] Signatures Signed By: Barb Schmidt RN 09/08/24 10:57NormParkview HealthOffice Visiton 44-73-0840Kuodad-up [id number] Trae Pineda Lorenzo 1950 M Date Provider Department Center 08/31/2024 [facility] DHILLON [facility] Family History Problem Relation Age of Onset Prostate cancer Father Family Status - Relation Status Age at Father Level of Service:53175 UT OFFICE/OUTPATIENT ESTABLISHED MOD MDM 30 [facility] HospitalCT CHEST WO CONon 78-40-9767EG CHEST WO CON EXAMINATION: CT CHEST WO [...] Electronically authenticated by: SLOAN SOSA Date: 2023-03-07 10:24NormFostoria City HospitalTESTOSTERONE, FREE,DIRECT, TOTALon 68-90-7164Lbcc Testosterone(Direct)10.1 pg/mLNormal6.6-18.1The [facility] on above:Result Comment: Performed at: BNPerformed By: #### [facility] #### [facility] [address] [place] [address] Dr. Zan EscalanteTestosterone [Mass/Vol]622 ng/kDQxqmip130-516Jlx [facility] on above:Result Comment: Adult male reference interval is based on a population of healthy nonobese males (BMI <30) between 19 and 39 years old. Nate et.al. JCEM 2017,102;8454-6215. PMID: 03952303. Performed at: CBPerformed By: #### [facility] #### [facility] [address] [address] [address] Zan DesirTRADIOLon 79-54-7713Lciefpnot91.4 pg/mLNormal7.6-42.6The [facility] on above:Result Comment: Tenzin ECLIA methodology Performed By: #### [facility] #### [facility] [address] [address] [address] Zan AguirreHon 32-44-3345TYM7.3 mIU/mLCritically low1.5-12.4The [facility], IncComment on above:Performed By: #### LBCFSH #### [facility] Laboratory [address] [place] [address] Dr. Zan EscalanteLUTEINIZING HORMONE (LH)on 54-57-8990RQ<0.3Critically low1.7-8.6 The [facility], IncComment on above:Performed By: #### LBCLH #### [facility] Laboratory [address] [place] [address] Dr. Zan EscalantePROLACTINon 03-87-7833Fpecyfocf3.5 ng/mLNormal4.0-15.2The [facility], IncComment on above:Performed By: #### LBCLH #### [facility] Laboratory [address] [place] [address] Dr. Zan EscalanteSEX HORMONE-BINDING GLOBULINon 21-11-3444Dfl Horm Binding Glob, Serum28.3 nmol/SKeovll33.3-76.4The [facility], IncComment on above:Performed By: #### SEXHBG #### [facility] Laboratory [address] [place] [address] Dr. Zan EscalanteCHEMISTRYOrdered By: Rod Swanson on 45-36-4315Hcnhrjs [Mass/Vol] 157 mg/lMOkne24 - 99 mg/dLWAGONER [facility] [place] [facility] SubsectionPOC Device [id number] Interpretation CodeWAGONER COMMUNITY [facility] [place] [facility] SubsectionPOC User [id number] Interpretation CodeWAGONER COMM[facility] [place] [facility] SubsectionPOC UsernamTHOMAS HeinInvalid Interpretation Code [facility] SubsectionTESTOSTERONE, FREE,DIRECT, TOTALon 40-33-0653Baaz Testosterone(Direct)4.2 pg/mLCritically low6.6-18.1The [facility] Troyment on above:Result Comment: Performed at: BNPerformed By: #### TESTFRD #### [facility] Laboratory [address] [place] [address] Dr. Zan EscalanteTestosterone [Mass/Vol]171 ng/dLCritically uwa048-526Uhn [facility], IncComment on above:Result Comment: Adult male reference interval is based on a population of healthy nonobese males (BMI <30) between 19 and 39 years old. jeancarlos Sullivan.al. JCEM 2017,102;9890-6925. PMID: [id number]. Performed at: CBPerformed By: #### TESTFRD #### [facility] Laboratory [address] [place] [address] Dr. Zan DesirTRADIOLon 37-79-3164Zfcrxsgbi28.9 pg/mLNormal7.6-42.6The [facility], IncComment on above:Result Comment: Tenzin ECLIA methodology Performed By: #### LBCLH #### [facility] Laboratory [address] [place] [address] Dr. Zan EscalanteFSHoyonathan 12-17-8220FZP7.0 mIU/mLNormal1.5-12.4ThTogus [facility] Comment on above:Performed By: #### LBCFSH #### [facility] Laboratory [address] [place] [address] Dr. Zan EscalanteLUTEINIZING HORMONE (LH)on 84-96-8042JL7.7 mIU/mLNormal1.7-8.6ThTogus VA Medical CenterComment on above:Performed By: #### LBCLH #### [facility] Laboratory [address] [place] [address] Dr. Zan EscalantePROLACTINon 33-61-2638Hpsyheemn2.6 ng/mLNormal4.0-15.2The [facility], IncComment on above:Performed By: #### LBCLH #### [facility] Laboratory [address] [place] [address] Dr. Zan EscalanteSEX HORMONE-BINDING GLOBULINon 10-67-5220Oim Horm Binding Glob, Serum22.7 nmol/WFgwotz32.3-76.4ThTogus VA Medical CenterComment on above:Performed By: #### SEXHBG #### [facility] Laboratory [address] [place] [address] Dr. Zan ValerioCHOCARWIL M/2D COMPLETEon 05-48-3694TGKQNYDRST M/2D COMPLETE Patient: TRAE PINEDABryan Exam Date: 07/31/2022 : 1950 Gender:M Ordering : DR MOI MOSS M.D. Admission #: [id number] Family : Order #: [id number] CLICK HERE TO VIEW EXAM ECHOCARDIOGRAM REPORT [...] by: Moi Moss M.D. on 07/31/2022 at 18:09[facility]*URINE CATH CULTUREon 07-02-2022*URINE CATH CULTUREClinical Report: (D) Specimen/Source: URINE/INTRAOP SPEC Collected: 07/02/2022 14:53 Status: Final Last Updated: 07/04/2022 09:03 (1) 1. Urine GRAM (Final) Many Polys Few Gram Positive Cocci In Pairs And Chains ISO (Final) Staphylococcus epidermidis >10,000 Cfu/mL ISOLATE: Staphylococcus epidermidis JOSEPH (mcg/ml) NITROFURANTOIN (FT) <=16 Susceptible OXACILLIN (OX) <=0.25 Susceptible TETRACYCLINE (TE) <=0.5 Susceptible VANCOMYCIN (VA) 1 SusceptibleThe [facility] Comment on above:Order Comment: 1. UrinePerformed By: #### [id number] #### [address]Operative Reporton 23-25-1763Asuqsotdj ReportMR#: [id number] S [facility] Pt. Name: Trae Pineda Room #: 0C Discharge Date: Birthdate: 1950 OPERATIVE REPORT DATE OF SURGERY: 07/02/2022 SURGEON: Diony Ariza MD FILM MASKER: Kolby ARMANDO PGY3 PREOPERATIVE DIAGNOSIS: Benign prostatic [...] the room agreed. A well lubricated rigid 22-Pakistani cystoscopic sheath with a 30-degree lens was [...] bleeding due to scope trauma so 18 romanian leggett was inserted. Urine was with significant [...] Jarrett MD Date Trans: 07/02/2022 03:30 P/ ZAN_JN:[id number] cc: Cristobal Kearns D.O. [address] [place] [id number] [facility]ighPO GLUCOSE LABon 16-19-8320Zbiqlcx [Mass/Vol]130 mg/gQQgap57-999Wyh [facility] GlenbeighComment on above:Performed By: #### [id number] #### [facility] [address] [place] [address], USAMICROALBUMIN URINEon 01-69-8521Clsmlzt, Urine42.2 ug/mL NormalNot Estab.The [facility], IncComment on above:Performed By: #### LBCLH #### [facility] Laboratory [address] [place] [address] Dr. Zan Pearl AUTO DIFFon 77-94-4202KMUG #0.1 103/ulNormal0.0-0.1The [facility], IncComment on above:Performed By: #### CBC #### [facility] Laboratory [address] [place] [address] Dr. Zan EscalanteBasophils/100 WBC (Bld)1.1 %Normal0.2-2.0[facility] Comment on above:Performed By: #### CBC #### [facility] Laboratory [address] [place] [address] Dr. Zan Clifton #0.6 103/ulNormal0.0-0.7The [facility], IncComment on above: Performed By: #### CBC #### [facility] Laboratory [address] [place] [address] Dr. Zan Valerioosinophils/100 WBC (Bld)7.0 %Normal0.9-7.0[facility] Comment on above:Performed By: #### CBC #### [facility] Laboratory [address] [place] [address] Dr. Zan Valeriorythrocyte distribution width (RBC) [Ratio]13.8 %Muuzye38.0-15.0 [facility] GeneralComment on above:Performed By: #### CBC #### [facility] Laboratory [address] [place] [address] Dr. Zan EscalanteHematocrit (Bld) [Volume fraction]40.9 %Critically low42.0-54.0 The [facility], IncComment on above:Performed By: #### CBC #### [facility] Laboratory [address] [place] [address] Dr. Zan EscalanteHemoglobin (Bld) [Mass/Vol]13.1 g/dLCritically low14.0-18.0The [facility] IncComment on above:Performed By: #### CBC #### [facility] Laboratory [address] [place] [address] Dr. Zan Marley #0.04 10e3/ulCritically high0.00-0.03The [facility] Comment on above:Performed By: #### CBC #### [facility] Laboratory [address] [place] [address] Dr. Zan Marley %0.5 %Normal0.0-0.5The [facility] IncComment on above: Performed By: #### CBC #### [facility] [address] [place] [address] Dr. Zan Luke #3.0 103/ulNormal1.2-3.8The [facility] IncComment on above:Performed By: #### CBC #### [facility] Laboratory [address] [place] [address] Dr. Zan Sonhocytes/100 WBC (Bld)33.4 %Owykdv26.5-60.0The [facility] IncComment on above:Performed By: #### CBC #### [facility] Laboratory [address] [place] [address] Dr. Zan MelchorUAL DIFF REQNONormalThe [facility], IncComment on above: Performed By: #### CBC #### [facility] Laboratory [address] [place] [address] Dr. Zan Ellison (RBC) [Entitic mass]29.6 apZnhnma42.9-34.0The [facility], IncComment on above:Performed By: #### CBC #### [facility] Laboratory [address] [place] [address] Dr. Zan CardonaHC (RBC) [Mass/Vol]32.0 g/kPXiltrw19.9-35.2The [facility], IncComment on above:Performed By: #### CBC #### [facility] [address] [place] [address] Dr. Zan CardonaV (RBC) [Entitic vol]92.3 kIPcjnwc86.0-94.0The [facility] IncComment on above:Performed By: #### CBC #### [facility] Laboratory [address] [place] [address] Dr. Zan Monaco #0.8 103/ulNormal0.3-0.8The [facility] IncComment on above:Performed By: #### CBC #### [facility] Laboratory [address] [place] [address] Dr. Zan Mendezocytes/100 WBC (Bld)9.4 %Normal1.7-12.0The [facility] Comment on above:Performed By: #### CBC #### [facility] Laboratory [address] [place] [address] Dr. Zan Mcnamara #4.3 103/ulNormal1.4-6.5The [facility], IncComment on above:Performed By: #### CBC #### [facility] Laboratory [address] [place] [address] Dr. Zan Jangutrophils/100 WBC (Bld)48.6 %Jbjldi39.0-75.0The [facility], IncComment on above:Performed By: #### CBC #### [facility] Laboratory [address] [place] [address] Dr. Zan Rowlandlet mean volume (Bld) [Entitic vol]11.2 fLNormal9.5-13.5The [facility] IncComment on above:Performed By: #### CBC #### [facility] Laboratory [address] [place] [address] Dr. Zan BishopT185 103/ugSplhrx343-770Vvu [facility], IncComment on above: Performed By: #### CBC #### [facility] Laboratory [address] [place], [place] [address] Dr. Zan EscalanteRBC4.43 106/ulCritically low4.70-6.10The [facility] IncComment on above:Performed By: #### CBC #### [facility] Laboratory [address] [place] [address] Dr. Zan EscalanteWBC8.9 103/ulNormal4.0-11.0The [facility] IncComment on above: Performed By: #### CBC #### [facility] Laboratory [address] [place] [address] Dr. Zan EscalanteCovid-19 PCR (CVDTB)on 89-15-4646MVRJ-CoV-2 (COVID-19) RNA KRISTEL+probe Ql (Unsp spec)Not detectedNormalNOT DETECTEDThe [facility] Comment on above:Result Comment: This test is not yet approved or cleared by the [place] FDA. When there are no FDA-approved or cleared tests available, and other criteria are met, FDA can make tests available under an emergency access mechanism called an Emergency Use Authorization (EUA). The EUA for this test is supported by the [place] of Health and Human Service's (HHS's) declaration that circumstances exist to justify the emergency use of in vitro diagnostics for the detection and/or diagnosis of the virus that causes COVID- 19. This EUA will remain in effect (meaning [...] of clinical signs and symptoms consistent with SARS-CoV-2.Performed By: #### LBCLH #### [facility] Laboratory [address] [place] [address] Dr. Zan EscalanteGLYCOHEMOGLOBIN A1Con 25-60-2654PFK RECOMMENDATIONSEE BELOWNormal [facility] GeneralCom[facility] on above:Result Comment: ADA RECOMMENDED LIMIT 4.0 - 6.0 ADA THERAPEUTIC TARGET < 7.0 ACTION SUGGESTED > 7.0Performed By: #### A1C #### [facility] Laboratory [address] [address] [address] Zan EscalanteGlucose [Mass/Vol]143 mg/dLNoRegency Hospital Cleveland WestComment on above:Performed By: #### A1C #### [facility] Laboratory [address] [address] [address] Zan EscalanteHbA1c (Bld) [Mass fraction]6.6 %Critically high4.5-6.2The [facility] IncComment on above:Performed By: #### A1C #### [facility] Laboratory [address] [place] [address] Dr. Zan ThrasherID PROFILEon 18-91-6966NULY-HDL RATIO NORMSEE [facility] HospitalComment on above:Result Comment: 3.3 - 4.4 LOW RISK 4.4 - 7.1 AVERAGE RISK 7.1 - 11.0 MODERATE RISK >11.0 HIGH RISKPerformed By: #### BMP, LIPID #### [facility] [address] [place] [address] Dr. Zan Leungesterol [Mass/Vol]105 mg/dLNormal<=200The [facility] Comment on above:Performed By: #### BMP, LIPID #### [facility] Laboratory [address] [place] [address] Dr. Zan Leungesterol in HDL [Mass/Vol]39 mg/dLCritically rzl76-31Adu [facility] IncComment on above:Performed By: #### BMP, LIPID #### [facility] Laboratory [address] [place] [address] Dr. Zan Leungesterol in LDL [Mass/Vol]45.0 mg/dLOhioHealth Hardin Memorial HospitalComment on above:Performed By: #### BMP, LIPID #### [facility] Laboratory [address] [place] [address] Dr. Zan Leungesterkarishma.total/Cholesterol in HDL [Mass ratio]2.7 {ratio} NormalThe [facility], IncComment on above:Performed By: #### BMP, LIPID #### [facility] Laboratory [address] [place] [address] Dr. Zan HoganL NORMAL> or = 60 mg/dl - LOW CARDIOVASCULAR RISK <40 mg/dl - HIGH CARDIOVASCULAR RISKOhioHealth Hardin Memorial HospitalComment on above:Performed By: #### BMP, LIPID #### [facility] [address] [address] [address] Zan Poe CALC NORMALSEE BELOWOhioHealth Hardin Memorial HospitalComment on above:Result Comment: <100 mg/dl OPTIMAL 100 - 129 mg/dl NEAR OR ABOVE OPTIMAL 130 - 159 mg/dl BORDERLINE HIGH 160 - 189 mg/dl HIGH >190 mg/dl VERY HIGH Performed By: #### BMP, LIPID #### [facility] [address] [address] [address] Zan EscalanteTriglyceride [Mass/Vol]105 mg/dLNormal<=150The [facility] Comment on above:Performed By: #### BMP, LIPID #### [facility] [address] [address] [address] Zan EscalanteVLDL CALC21.0 mg/dLNoRegency Hospital Cleveland WestComment on above: Performed By: #### BMP, LIPID #### [facility] [address] [address] [address] Zan EscalantePROF CHEM 8 (BAS METB)on 59-46-3578Qqfrn gap [Moles/Vol]12.1 mmol/LNormalCleveland Clinic [facility]ron GeneralComment on above:Performed By: #### BMP, LIPID #### [facility] [address] [address] [address] Zan EscalanteCalcium [Mass/Vol]9.0 mg/dLNormal8.5-10.1The [facility] Comment on above:Performed By: #### BMP, LIPID #### [facility] [address] [address] [address] Zan EscalanteChloride [Moles/Vol]106 mmol/FLdwoex26-826Rmc [facility] Comment on above:Performed By: #### BMP, LIPID #### [facility] [address] [address] [address] Zan EscalanteCO2 [Moles/Vol]28.4 mmol/GFxjhdd69.0-32.0[facility] Comment on above:Performed By: #### BMP, LIPID #### [facility] [address] [address] [address] Zan EscalanteCreatinine [Mass/Vol]1.39 mg/dLCritically high0.70-1.30The [facility] IncComment on above:Performed By: #### BMP, LIPID #### [facility] Laboratory [address] [place] [address] Dr. Zan ValerioGFR-AF BELGIAN>60Normal>=60The [facility] IncComment on above:Performed By: #### BMP, LIPID #### [facility] Laboratory [address] [place] [address] Dr. Zan ValerioGFR-NON AF QYYYSPAU27 mL/min/1.20m0Mevknfjojf low>=60The [facility] IncComment on above:Performed By: #### BMP, LIPID #### [facility] Laboratory [address] [place] [address] Dr. Zan EscalanteGlucose [Mass/Vol]96 mg/pWRjjilm82-250Sab [facility] Comment on above:Performed By: #### BMP, LIPID #### [facility] Laboratory [address] [place] [address] Dr. Zan EscalantePotassium [Moles/Vol]4.5 mmol/LNormal3.5-5.1The [facility] Comment on above:Performed By: #### BMP, LIPID #### [facility] Laboratory [address] [place] [address] Dr. Zan Apodacadium [Moles/Vol]142 mmol/LZgbcig794-199Yev [facility] Comment on above:Performed By: #### BMP, LIPID #### [facility] Laboratory [address] [place] [address] Dr. Zan EscalanteUrea nitrogen [Mass/Vol]23.0 mg/dLCritically high7.0-18.0The [facility], IncComment on above:Performed By: #### BMP, LIPID #### [facility] Laboratory [address] [place] [address] Dr. Yilan ChangUrea nitrogen/Creatinine [Mass ratio]16.5 mg/mgOhioHealth Hardin Memorial HospitalComment on above:Performed By: #### BMP, LIPID #### [facility] Laboratory [address] [place] [address] Dr. Zuluaga ChangESTRADIOLon 90-32-3573IQZZDCHIF61.7 pg/dESfb34-49GefHighland District HospitalILThe Jewish HospitalComment on above:Result Comment: Test Performed by [facility] [address] [place] [id number] - Released 04/17/2022 14:29Result Comment: Test Performed by [facility] [address] [place] [address] - Released 04/17/2022 14:30TESTOSTERONE, TOTAL ILon 04-17-2022 Testosterone [Mass/Vol]108 ng/vGXis273-4394Wyo [facility]ighCT UROGRAMon 13-00-8065KD UROGRAMUnAdena [facility] Department of Radiology [address] [place] [address] Patient Name: TRAE PINEDA : 1950 Sex: M Age: Race: White Pt. Location: [facility] Patient Status: D Ordered [...] achievable Electronically signed: Aquilino Johnson. Transcribed by: [email or web address], User Resident: Electronically Signed by: AQUILINO JOHNSON @ 03/15/2022 01:05 [facility] Vital Signs Date TimeVital SignValuePerforming DoglobsagDyicgcxq05-82-0385 13:42-0400Body zdiskh247.88 cmBenjamin Ball DO Work Phone: [facility]07-21-2025 13:42-0400 Body mass index (BMI) [Ratio]32.5 kg/o3Cldprzop Ball DO Work Phone: [facility]07-21-2025 13:42-0400 Body camaiy875.97 kgBenjamin Ball DO Work Phone: [phone]07-21-2025 13:42-0400 Diastolic blood ogprjwrx75 mm[Hg]Cristobal Ball DO Work Phone: [phone]07-21-2025 13:42-0400 Heart rate57 /minBenjamin Ball DO Work Phone: [phone]07-21-2025 13:42-0400 Respiratory rate12 /minBenjamin Ball DO Work Phone: [phone]07-21-2025 13:42-0400 Systolic blood wnkdbufr759 mm[Hg]Cristobal Ball DO Work Phone: [phone]05-20-2025 12:55-0400 Diastolic blood yyxliqns48 mm[Hg]John Cannon [facility]05-20-2025 12:55-0400Heart rate59 /minBradford Davis [facility]05-20-2025 12:55-0400Mean blood fhlrhozr17 mm[Hg]John Cannon [facility]05-20-2025 12:55-0400 Respiratory rate14 /minBradford Davis [facility]05-20-2025 12:55-0400 Systolic blood okhroixa244 mm[Hg]Lopez Davis [facility]04-29-2025 10:00-0400Heart rate61 /minBrabill Davis [facility]04-29-2025 10:00-4264SrT8% (BldA) [Mass fraction]99 %John Davis [facility]04-29-2025 10:00-0400 Diastolic blood wlcgasin47 mm[Hg]John Davis [facility]04-29-2025 10:00-0400Mean blood acnnlxcp291 mm[Hg]John Cannon [facility]04-29-2025 10:00-0400 Systolic blood mm[Hg]John Davis [facility]04-29-2025 09:42-0400 Diastolic blood mwxqaqfd95 mm[Hg]John Davis [facility]04-29-2025 09:42-0400Heart rate53 /minBrabill Davis [facility]04-29-2025 09:42-0219VrZ8% (BldA) [Mass fraction]94 %John Cannon [facility]04-29-2025 09:42-0400 Systolic blood myxpprdu463 mm[Hg]John Cannon [facility]04-29-2025 08:23-0400Heart rate58 /minBradfbernardo Cannon [facility]04-29-2025 08:23-7584TcB8% (BldA) [Mass fraction]97 %John Cannon [facility]04-29-2025 08:23-0400 Diastolic blood ehbkuerm53 mm[Hg]John Cannon [facility]04-29-2025 08:23-0400Mean blood peagfkmh32 mm[Hg]John Cannon [facility]04-29-2025 08:23-0400 Systolic blood lqjunccz078 mm[Hg]John Cannon [facility]04-29-2025 08:23-0400gluc 166 mg/dLBgm Cannon [facility] HospitalComment on above:Result Comment: per patients' Singh Freestyle on left ahp76-13-3504 08:22-0400Body dlkivbffsgo80.06 [degF]John Cannon [facility]04-29-2025 08:20-0400 Respiratory rate16 /minBrabill Cannon [facility]04-11-2025 13:49-0400 Diastolic blood mm[Hg]Margareth De La Cruz [facility]04-11-2025 13:49-0400Heart rate54 /minAmanda De La Cruz [facility]04-11-2025 13:49-0400Mean blood evaokjqy30 mm[Hg]Margareth De La Cruz [facility]04-11-2025 13:49-0400 Respiratory rate16 /minAmanda De La Cruz [facility]04-11-2025 13:49-0400 Systolic blood skpqeiqs241 mm[Hg]Margareth De La Cruz [facility]04-09-2025 13:25-0400Body bparbe019.9 cmJoseph Nunez MD Work Phone: [facility] HospitalJpjbuwtqzb87-74-8861 13:25-0400Body mass index (BMI) [Ratio]32.69 kg/f5UzfadlJoseph Nunez MD Work Phone: [facility] HospitalLfejevqend55-85-6730 13:25-0400Body tqvikt637.32 kgHilashelli Nunez MD Work Phone: [facility] HospitalIuvwcnyitk88-43-7839 13:25-0400Diastolic blood qivrkguo39 mm[Hg]Joseph Nunez MD Work Phone: [facility] HospitalPazqchlfbh78-77-5417 13:25-0400Heart rate62 /min Joseph Nunez MD Work Phone: [facility] HospitalNfomgasiqq10-76-6154 13:25-0400Systolic blood mm[Hg]Joseph Nunez MD Work Phone: [phone] HospitalSzhlngylmm05-10-3828 09:45-0400Heart rate62 /min John Cannon [facility]04-07-2025 09:45-3326WiD4% (BldA) [Mass fraction]98 %John Cannon [facility] [facility] 09:45-0400 Diastolic blood pkfjrxef10 mm[Hg]John Cannon [facility]04-07-2025 09:45-0400Mean blood exbdrvju79 mm[Hg]John Cannon [facility]04-07-2025 09:45-0400 Systolic blood weatcjos194 mm[Hg]John Cannon [facility]04-07-2025 09:45-0400 Respiratory rate16 /minBrabill Cannon [facility]04-07-2025 09:38-0400 Diastolic blood mm[Hg]John Cannon [facility]04-07-2025 09:38-0400Heart rate67 /minJohn Cannon [facility]04-07-2025 09:38-0400 Respiratory rate14 /minBrabill Cannon [facility]04-07-2025 09:38-0445LnJ8% (BldA) [Mass fraction]97 %John Cannon [facility]04-07-2025 09:38-0400 Systolic blood oearzuoa814 mm[Hg]John Cannon [facility]04-07-2025 09:09-0400Heart rate61 /minBrabill Cannon [facility]04-07-2025 09:09-3761MfZ2% (BldA) [Mass fraction]96 %John Cannon [facility]04-07-2025 09:09-0400 Diastolic blood cszpbict27 mm[Hg]John Cannon [facility]04-07-2025 09:09-0400Mean blood rpamkazg414 mm[Hg]John Cannon [facility]04-07-2025 09:09-0400 Systolic blood vwjgivqp080 mm[Hg]John Cannon [facility]04-07-2025 09:09-0400Body hqrybxwowep55.52 [degF]John Cannon [address] [place], [place] 4536304-07-2025 09:09-0400gluc 152 mg/dLBradyvonne Cannon [address] [place], [place] [address]Comment on above:Result Comment: per patients monitor. Singhlorenzo Pattersonkam 09:07-0400Respiratory rate14 /minBrabill Cannon [address] [place], [place] 4536303-26-2025 13:32-0400Body uhqgtw425.88 [facility] 13:32-0400Body mass index (BMI) [Ratio]33.3 kg/l4CqpnrruzmChillicothe Hospital03-26-2025 13:32-0400Body tdyjiq988.64 kgChillicothe Hospital03-26-2025 13:32-0400Diastolic blood kzwznyoq01 mm[Hg][facility] 02-10-2025 13:32-0400Heart rate60 /[facility] 02-10-2025 13:32-0400Respiratory rate12 /[facility] 02-10-2025 13:32-0400Systolic blood pycctfct990 mm[Hg][facility]03-20-2025 11:32-0400Diastolic blood ydkkgjhl92 mm[Hg]John Cannon [facility]03-20-2025 11:32-0400Heart rate55 /minBrabill Cannon [facility]03-20-2025 11:32-0400Mean blood nmvareec75 mm[Hg]John Cannon [facility]03-20-2025 11:32-0400 Respiratory rate14 /minBrabill Cannon [facility]03-20-2025 11:32-0400 Systolic blood irytpgwj957 mm[Hg]John [facility]03-17-2025 14:27-0400Heart rate54 /minBrabill Cannon [facility]03-17-2025 14:27-0904HlW4% (BldA) [Mass fraction]97 %John Cannon [facility]03-17-2025 14:26-0400 Diastolic blood rpwyoefp16 mm[Hg]John Cannon [facility]03-17-2025 14:26-0400Mean blood mm[Hg]John Cannon [facility]03-17-2025 14:26-0400 Systolic blood pvseespw825 mm[Hg]John Cannon [facility]03-17-2025 14:26-0400 Respiratory rate16 /minBrabill Cannon [address] [place], [place] 4536303-17-2025 14:18-0400 Diastolic blood fyhtnyno38 mm[Hg]John Cannon [address] [place], [place] 4536303-17-2025 14:18-0400Heart rate61 /minBrajavierbernardo Davis [address] [place], [place] 4536303-17-2025 14:18-9890LrY6% (BldA) [Mass fraction]95 %John Davis [address] [place], [place] 4536303-17-2025 14:18-0400 Systolic blood vygrcotp035 mm[Hg]John Cannon [address] [place], [place] 4536303-17-2025 14:05-0400Heart rate61 /minBrabill Cannon [address] [place], [place] 4536303-17-2025 14:05-0194DlA2% (BldA) [Mass fraction]97 %John Cannon [address] [place], [place] 4536303-17-2025 14:05-0400Body pwhydpgzxlh27.52 [degF]John Cannon [address] [place], [place] 4536303-17-2025 14:05-0400gluc 132 mg/dLBradyvonne Cannon [address] [place], [place] [address]Comment on above:Result Comment: Freestyle Singh 2 Glucose Kvhco84-03-0448 14:01-0400Diastolic blood lmbyvxah73 mm[Hg]John Cannon [address] [place], [place] 4536303-17-2025 14:01-0400Mean blood zwhqislb571 mm[Hg]John Cannon [address] [place], [place] 4536303-17-2025 14:01-0400 Systolic blood npgkvcir551 mm[Hg]John [facility]03-17-2025 13:58-0400 Respiratory rate14 /minBrabill Cannon [facility]03-05-2025 13:05-0500Body buzlyn362.9 cmJoseph Nunez MD Work Phone: [facility] [phone] 13:05-0500Body mass index (BMI) [Ratio]32.69 kg/k0XgohijJoseph Nunez MD Work Phone: [facility] HospitalJimlrlosqo29-11-2900 13:05-0500Body .32 kgJoseph Nunez MD Work Phone: [facility] [id number] 13:05-0500Diastolic blood qcxkkogw13 mm[Hg]Joseph Nunez MD Work Phone: [facility] [id number] 13:05-0500Heart rate67 /min Joseph Nunez MD Work Phone: [facility] HospitalJchkoscwcs39-27-0887 13:05-0500Systolic blood zimqtdjo697 mm[Hg]Joseph Nunez MD Work Phone: [facility] [phone] 10:31-0500Diastolic blood vtkzuzke90 mm[Hg]Margareth De La Cruz [facility]02-25-2025 10:31-0500Heart rate58 /minAmanda De La Cruz [facility]02-25-2025 10:31-0500Mean blood mm[Hg]Margareth De La Cruz [facility]02-25-2025 10:31-0500 Respiratory rate14 /minAmanda De La Cruz [facility]02-25-2025 10:31-0500 Systolic blood bjaqzdnl939 mm[Hg]Margareth De La Cruz [facility]01-28-2025 10:15-0500 Diastolic blood qipdegkj75 mm[Hg]Margareth De La Cruz [facility]01-28-2025 10:15-0500Heart rate67 /minAmanda Jono [facility]01-28-2025 10:15-0500Mean blood vzrksojf39 mm[Hg]Margareth De La Cruz [facility]01-28-2025 10:15-0500 Respiratory rate14 /minAmanda De La Cruz [facility]01-28-2025 10:15-0500 Systolic blood cenkeqqk642 mm[Hg]Margareth De La Cruz [facility]01-20-2025 09:02-0500Heart rate69 /minBradfbernardo Davis [facility]01-20-2025 09:02-1762IwF9% (BldA) [Mass fraction]99 %John Cannon [facility]01-20-2025 09:02-0500 Diastolic blood gbzxneqx48 mm[Hg]John Cannon [facility]01-20-2025 09:02-0500Mean blood ekxqvndf72 mm[Hg]John Cannon [facility]01-20-2025 09:02-0500 Systolic blood ejvbnxwb413 mm[Hg]John Cannon [facility]01-20-2025 09:02-0500 Respiratory rate16 /minBradfbernardo Cannon [facility]01-20-2025 08:54-0500Heart rate67 /minBrabill Cannon [facility]01-20-2025 08:54-4740FtP4% (BldA) [Mass fraction]99 %John Cannon [facility]01-20-2025 08:54-0500 Respiratory rate16 /minBrabill Cannon [address] [place], [place] 4536301-20-2025 08:54-0500Body redaybhawml64.88 [degF]John Cannon [address] [place], [place] 4536301-20-2025 08:54-0500 Diastolic blood dnfhtocs93 mm[Hg]John Cannon [address] [place], [place] 4536301-20-2025 08:54-0500Mean blood mm[Hg]John Cannon [address] [place], [place] 4536301-20-2025 08:54-0500 Systolic blood mm[Hg]John Cannon [address] [place], [place] 4536301-20-2025 08:48-0500 Diastolic blood odvyyjrq27 mm[Hg]John Cannon [address] [place], [place] 4536301-20-2025 08:48-0500 Systolic blood kwhugosm586 mm[Hg]John Cannon [address] [place], [place] 4536301-20-2025 08:45-0500Heart rate64 /minBrabill Cannon [address] [place], [place] 4536301-20-2025 08:45-9066CfA5% (BldA) [Mass fraction]99 %John Cannon [address] [place], [place] 4536301-20-2025 08:40-0500 Respiratory rate15 /minBrabill Cannon [address] [place], [place] 6106501-20-2025 07:34-0500gluc 140 mg/dLBgm Cannon [address] [place], [place] [address]Comment on above:Result Comment: per pt's meter on left [id number] 07:32-0500Body bmfcvexosbz29.7 [degF]John Cannon [address] [place], [place] 4536301-20-2025 07:32-0500Mean blood uirkzohg91 mm[Hg][facility]12-26-2024 10:23-0500Body .88 cmCh[facility]ic[facility]12-26-2024 10:23-0500Body mass index (BMI) [Ratio]32.7 kg/w5YuexgppyzChillicothe Hospital12-26-2024 10:23-0500Body ucmqax343.54 kgChillicothe Hospital12-26-2024 10:23-0500Diastolic blood unmneili77 mm[Hg][facility] 11-12-2024 10:23-0500Heart rate65 /[facility] 11-12-2024 10:23-0500Respiratory rate12 /[facility] 11-12-2024 10:23-0500Systolic blood mm[Hg][facility]12-12-2024 09:08-0500Diastolic blood mm[Hg]John Cannon [facility]12-12-2024 09:08-0500Heart rate76 /minJohn Cannon [facility]12-12-2024 09:08-0500 Respiratory rate14 /minJohn Cannon [facility]12-12-2024 09:08-0500 Systolic blood dbzigktu895 mm[Hg]John Cannon [facility]11-26-2024 13:51-0500 Diastolic blood mm[Hg]Margareth De La Cruz [facility]11-26-2024 13:51-0500Mean blood asvkepvx80 mm[Hg]Margareth De La Cruz [facility]11-26-2024 13:51-0500 Systolic blood lovnsgbo022 mm[Hg]Margareth De La Cruz [address] [place], [place] [address]6510-22-2024 11:49-0400Heart rate60 /minBradfbernardo Cannon [address] [place], [place] 6106510-22-2024 11:49-6798EfU6% (BldA) [Mass fraction]99 %John Cannon [address] [place], [place] 4536310-22-2024 11:48-0400 Diastolic blood tukkmnhh85 mm[Hg]John Cannon [address]10-22-2024 11:48-0400Mean blood anhnbpno95 mm[Hg]John Cannon [address]10-22-2024 11:48-0400 Systolic blood ixrgncob847 mm[Hg]John Cannon [address] [place], [place] 6106510-22-2024 11:48-0400 Respiratory rate16 /minBrabill Cannon [address] [place], [place] 6106510-22-2024 11:38-0400 Diastolic blood jakygtfa85 mm[Hg]John Cannon [address]10-22-2024 11:38-0400Heart rate58 /minBrabill Cannon [address]10-22-2024 11:38-0400 Respiratory rate14 /minBrabill Cannon [address] [place], [place] [address]7110-22-2024 11:38-9876RpQ8% (BldA) [Mass fraction]96 %John Cannon [address] [place], [place] 4536310-22-2024 11:38-0400 Systolic blood dpsdbeen599 mm[Hg]John Cannon [address]10-22-2024 11:01-0400gluc 134 mg/dLBgm Cannon [address] [place], [place] [address]Comment on above:Result Comment: per pt's -[id number] 10:58-0400Heart rate61 /minBradfbernardo Davis [facility]10-22-2024 10:58-1427UlI3% (BldA) [Mass fraction]99 %John Cannon [facility]10-22-2024 10:57-0400 Diastolic blood klzibwtc72 mm[Hg]John Cannon [facility]10-22-2024 10:57-0400Mean blood wqtaxrwg379 mm[Hg]John Cannon [facility]10-22-2024 10:57-0400 Systolic blood lmzvxudd104 mm[Hg]John Cannon [facility]10-22-2024 10:57-0400 Respiratory rate18 /minBradfbernardo Davis [facility]10-22-2024 10:54-0400Body ojsdtqlxnes52.7 [degF]John Cannon [facility]09-16-2024 14:37-0400 Diastolic blood fooiited09 mm[Hg]Margareth De La Cruz [facility]09-16-2024 14:37-0400Heart rate62 /minAmanda StrongSteam [facility]09-16-2024 14:37-0400Mean blood bgtemorw52 mm[Hg]Margareth De La Cruz [facility]09-16-2024 14:37-0400 Respiratory rate16 /minAmanda StrongSteam [facility]09-16-2024 14:37-0400 Systolic blood xdbcgorz470 mm[Hg]Margareth De La Cruz [facility]07-01-2024 13:07-0400 Diastolic blood xuhsngqv38 mm[Hg]Margareth De La Cruz [facility]07-01-2024 13:07-0400Heart rate59 /minAmanda De La Cruz [facility]07-01-2024 13:07-0400Mean blood tidhcnjl88 mm[Hg]Margareth StrongSteam [facility]07-01-2024 13:07-0400 Respiratory rate16 /minAmanda De La Cruz [address] [place], [place] 4536307-01-2024 13:07-0400 Systolic blood oufpzifz087 mm[Hg]Margareth StrongSteam [address] [place], [place] 4536305-10-2024 14:19-0400 Diastolic blood hyqoarro19 mm[Hg]Margareth StrongSteam [address] [place], [place] 4536305-10-2024 14:19-0400Heart rate69 /minAmanda De La Cruz [address] [place], [place] 4536305-10-2024 14:19-0400Mean blood djgvjcei55 mm[Hg]Margareth StrongSteam [address] [place], [place] 4536305-10-2024 14:19-0400 Respiratory rate15 /minAmanda StrongSteam [facility]05-10-2024 14:19-0400 Systolic blood jtcojtnz380 mm[Hg]Margareth StrongSteam [address] [place], [place] 4536303-29-2024 13:32-0400 Diastolic blood mm[Hg]Margareth StrongSteam [address] [place], [place] 4536303-29-2024 13:32-0400Heart rate66 /minAmanda De La Cruz [address] [place], [place] 4536303-29-2024 13:32-0400Mean blood jlypncii81 mm[Hg]Margareth StrongSteam [address] [place], [place] 4536303-29-2024 13:32-0400 Respiratory rate14 /minAmanda De La Cruz [facility]03-29-2024 13:32-0400 Systolic blood hzvzddui122 mm[Hg]Margareth De La Cruz [facility]02-28-2024 14:27-0500Heart rate63 /minBrabill Davis [facility]02-28-2024 14:27-6735LeM3% (BldA) [Mass fraction]100 %John Davis [facility]02-28-2024 14:27-0500 Respiratory rate16 /minBradfbernardo Cannon [facility]02-28-2024 14:26-0500 Diastolic blood zpaieruz79 mm[Hg]John Cannon [facility]02-28-2024 14:26-0500Mean blood yezczrib742 mm[Hg]John Cannon [facility]02-28-2024 14:26-0500 Systolic blood ligrlrxp509 mm[Hg]John Cannon [facility]02-28-2024 14:17-0500 Diastolic blood tozxdrxz13 mm[Hg]John Cannon [facility]02-28-2024 14:17-0500Heart rate66 /minBrabill Cannon [facility]02-28-2024 14:17-0500 Respiratory rate14 /minBrabill Cannon [facility]02-28-2024 14:17-8166XwX9% (BldA) [Mass fraction]96 %John Cannon [facility]02-28-2024 14:17-0500 Systolic blood mm[Hg]John Cannon [facility]02-28-2024 13:42-0500gluc 128 mg/dLBradyvonne Cannon [facility] HospitalComment on above:Result Comment: per pt's meter on right gvu87-84-7915 13:30-0500Heart rate60 /min John Cannon [facility]02-28-2024 13:30-2057MaP2% (BldA) [Mass fraction]99 %John Cannon [address] [place], [place] 4536302-28-2024 13:30-0500Body mrlhgsvyesv10.34 [degF]John Cannon [facility]02-28-2024 13:30-0500 Diastolic blood mm[Hg]John Cannon [facility]02-28-2024 13:30-0500Mean blood wrmrazid366 mm[Hg]John Cannon [facility]02-28-2024 13:30-0500 Systolic blood hrhjpsme193 mm[Hg]John Cannon [facility]02-28-2024 13:29-0500 Respiratory rate14 /minBrabill Canonn [address] [place], [place] 4536301-29-2024 10:23-0500 Diastolic blood zahldajl66 mm[Hg]Margareth De La Cruz [facility]01-29-2024 10:23-0500Heart rate70 /minAmanda StrongSteam [facility]01-29-2024 10:23-0500Mean blood mm[Hg]Margareth De La Cruz [facility]01-29-2024 10:23-0500 Respiratory rate14 /minAmanda De La Cruz [facility]01-29-2024 10:23-0500 Systolic blood gopwsmnn846 mm[Hg]Margareth De La Cruz [facility]12-26-2023 10:00-0500Body buyhwj031.88 cmBenjamin Ball Other [place] [employer] Other 12-26-2023 10:00-0500Body mass index (BMI) [Ratio] 32.46 kg/n1Aykwnbhu Ball Other [place] [employer] Other 12-26-2023 10:00-0500Body zdxxoc407.59 kgBenjamin Ball Other [place] [employer] Other 12-26-2023 10:00-0500Diastolic blood raffzsbo26 mm[Hg] Cristobal Ball Other [place] [employer] Other 12-26-2023 10:00-0500Respiratory rate16 /minBenjamin Ball Other [place] [employer] Other 12-26-2023 10:00-0500Systolic blood bfzvvtaa288 mm[Hg] Cristobal Ball Other [place] [employer] Other 12-22-2023 10:58-0500Diastolic blood wblkadsv72 mm[Hg] Margareth De La Cruz [facility]12-22-2023 10:58-0500Heart rate63 /minAmanda StrongSteam [facility]12-22-2023 10:58-0500Mean blood ttleuwmn54 mm[Hg]Margareth De La Cruz [facility]12-22-2023 10:58-0500 Respiratory rate15 /minAmanda StrongSteam [facility]12-22-2023 10:58-0500 Systolic blood hzifkwej892 mm[Hg]Margareth De La Cruz [facility]10-20-2023 11:09-0400 Diastolic blood jfriobnq94 mm[Hg]Margareth De La Cruz [facility]10-20-2023 11:09-0400Heart rate59 /minAmanda De La Cruz [facility]10-20-2023 11:09-0400Mean blood qtsdbrfi051 mm[Hg]Margareth De La Cruz [address] [place], [place] 4536310-20-2023 11:09-0400 Respiratory rate16 /minAmanda De La Cruz [facility]10-20-2023 11:09-0400 Systolic blood mm[Hg]Margareth De La Cruz [address] [place], [place] 4536309-19-2023 14:22-0400Heart rate59 /minJogerardo Wright [address] [place], [place] 4536309-19-2023 14:22-3981SfY1% (BldA) [Mass fraction]99 %Himanshu Wright [facility]09-19-2023 14:22-0400 Diastolic blood vmwparqg22 mm[Hg]Himanshu Wright [facility]09-19-2023 14:22-0400Mean blood pydpflta001 mm[Hg]Himanshu Wright [facility]09-19-2023 14:22-0400 Systolic blood mm[Hg]Himanshu Wright [facility]09-19-2023 14:15-0400 Diastolic blood dbezmcaw48 mm[Hg]Himanshu Wright [facility]09-19-2023 14:15-0400Heart rate58 /minHimanshu Wright [facility]09-19-2023 14:15-5080XnT8% (BldA) [Mass fraction]97 %Himanshu Wright [facility]09-19-2023 14:15-0400 Systolic blood pxrvirje793 mm[Hg]Himanshu Wright [address] [place], [place] 4536309-19-2023 13:52-0400 Respiratory rate14 /minHimanshu Wright [address] [place], [place] 4536309-19-2023 13:00-0400Body byjplwlcsjq17.06 [degF]Himanshu Wright [address] [place], [place] 4536309-19-2023 13:00-0400 Diastolic blood mm[Hg]Himanshu Wright [address] [place], [place] 4536309-19-2023 13:00-0400Heart rate67 /Fabiola Wright [facility]09-19-2023 13:00-0400 Systolic blood wittstre441 mm[Hg]Himanshu Wright [facility]08-15-2023 14:17-0400 Diastolic blood fycgpxtb03 mm[Hg]Margareth De La Cruz [facility]08-15-2023 14:17-0400Heart rate61 /minAmanda StrongSteam [facility]08-15-2023 14:17-0400Mean blood acuzhdxf74 mm[Hg]Margareth De La Cruz [facility]08-15-2023 14:17-0400 Respiratory rate14 /minAmanda StrongSteam [facility]08-15-2023 14:17-0400 Systolic blood quohefvi352 mm[Hg]Margareth De La Cruz [facility]02-24-2023 13:43-0500 Diastolic blood mm[Hg]Margareth De La Cruz [facility]02-24-2023 13:43-0500Heart rate76 /minAmanda De La Cruz [facility]02-24-2023 13:43-0500Mean blood ecxaksjz266 mm[Hg]Margareth De La Cruz [facility]02-24-2023 13:43-0500 Respiratory rate18 /minAmanda De La Cruz [facility]02-24-2023 13:43-0500 Systolic blood mm[Hg]Margareth De La Cruz [facility]02-21-2023 13:30-0500Body utliwi333.88 cmBenjamin Ball Other [facility] [employer] Other 02-21-2023 13:30-0500Body mass index (BMI) [Ratio] 32.11 kg/f4Wgwkrxkl Ball Other [facility] [employer] Other 02-21-2023 13:30-0500Body lyujcb504.41 kgBenjamin Ball Other [facility] [employer] Other 02-21-2023 13:30-0500Diastolic blood cihwuqmc30 mm[Hg] Cristobal Ball Other [facility] [employer] Other 02-21-2023 13:30-0500Respiratory rate16 /minBenjamin Ball Other [facility] [employer] Other 02-21-2023 13:30-0500Systolic blood pslxdfsa206 mm[Hg] Cristobal Ball Other [facility] [employer] Other 01-25-2023 11:00-0500Heart rate73 /minZachary Zumbar [address] [place], [place] 4536301-25-2023 11:00-1560IuO0% (BldA) [Mass fraction]98 %Tutu Zumbar [address] [place], [place] 4536301-25-2023 11:00-0500 Diastolic blood hjeeeigf06 mm[Hg]Tutu Zumbar [address] [place], [place] 4536301-25-2023 11:00-0500Mean blood zuqgglfe040 mm[Hg]Tutu Zumbar [address] [place], [place] 4536301-25-2023 11:00-0500 Systolic blood hihxhint604 mm[Hg]Tutu Zumbar [address] [place], [place] 4536301-25-2023 10:51-0500 Diastolic blood qytmbsra39 mm[Hg]Tutu Zumbar [address]01-25-2023 10:51-0500Heart rate71 /minZachary Zumbar [address] [place], [place] 4536301-25-2023 10:51-0500 Respiratory rate16 /minZachary Zumbar [address] [place], [place] 4536301-25-2023 10:51-9810WvW7% (BldA) [Mass fraction]96 %Tutu Zumbar [address] [place], [place] [address]7101-25-2023 10:51-0500 Systolic blood yqbljhyq719 mm[Hg]Tutu Zumbar [address] [place], [place] 4536301-25-2023 10:13-0500Heart rate75 /minZachary Zumbar [address] [place], [place] 4536301-25-2023 10:13-9331AkL9% (BldA) [Mass fraction]97 %Tutu Zumbar [address] [place], [place] 6106501-25-2023 10:13-0500Body hlizhxvfomk42.88 [degF]Tutu Zumbar [address] [place], [place] 6106501-25-2023 10:12-0500 Diastolic blood zccyyfce84 mm[Hg]Tutu Zumbar [address] [place], [place] 6106501-25-2023 10:12-0500Mean blood tiatocds800 mm[Hg]Tutu Zumbar [address] [place], [place] 6106501-25-2023 10:12-0500 Systolic blood umqjpuyh885 mm[Hg]Tutu Zumbar [address] [place], [place] 6106501-25-2023 10:10-0500 Respiratory rate16 /minZachary Zumbar [address] [place], [place] 6106512-22-2022 15:04-0500 Diastolic blood teidhhsl55 mm[Hg]Tutu Zumbar [address] [place], [place] 6106512-22-2022 15:04-0500Heart rate62 /minZachary Zumbar [address] [place], [place] 6106512-22-2022 15:04-0500Mean blood mjbvkals155 mm[Hg]Tutu Zumbar [address] [place], [place] 6106512-22-2022 15:04-0500 Respiratory rate14 /minZachary Zumbar [address] [place], [place] [address]7112-22-2022 15:04-0500 Systolic blood kmrqiwrg451 mm[Hg]Tutu Zumbar [address] [place] [address] Encounters Encounter DateEncounter TypeCare ProviderFacilityStart: 08-28-2025 End: 06-26-2177snozpqqlahPCYBYMCS E BALLProMedica Lima HospitalStart: 08-10-2025 End: 52-30-8887vcckikuytsMNPZM CHAVARegency Hospital Companytart: 07-20-2025 End: 99-14-7045urbfbrxgozGKFD CELINETrumbull Memorial Hospitaltart: 06-07-2025 End: 39-08-6311rjfvsuvlfgSbbaursu Ball DO Work Phone: [facility] Work Phone: Start: 06-07-2025 End: 62-46-9193Rtqcqhy encounter procedureBegiancarlo Kearns DO-[facility] Work Phone: Start: 10-05-0689Opy-patient / Non-visitGeorjuancarlos Moss MDW[facility] Work Phone: Start: 04-28-2025 End: 30-73-2703yyputxvahlQOTJMW MOUKARBGalion Community Hospital Start: 04-06-2025 End: 55-81-3759sgoyqtyabyCsvcytag A. JonesFacility:FTMCStart: 04-06-2025 End: 40-42-8299Euwcnvg encounter procedureJohn Cannon [facility] Start: 03-25-2025 End: 30-81-8831xyintyqywrDVUWJG MOUKAUniversity Hospitals [facility] Start: 86-31-6912Ukg-patient / Non-visitRajjose carlos Kearns -[facility] Work Phone: Start: 03-16-2025 End: 38-50-6069zyndsmrwrePdfaqgma A. 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 JonesFacility:FTMCStart: 02-22-2025 End: 53-22-7490Wwij ManagementJohn Cannon [facility] Start: 02-17-2025 End: 26-85-1786hxfgcdxdvwLCUJID [facility] Start: 02-10-2025 End: 38-61-4681rgyberesyjKoziasnjkWilson Health Work Phone: Start: 02-10-2025 End: 65-56-2515Vxkiydt encounter procedureDuke Health Physician GroupBarney [facility] Work Phone: Start: 02-04-2025 End: 97-38-3217rhqcaemjsbFiajvvgd A. JonesFacility:FTMCStart: 02-04-2025 End: 91-54-2306Omzoxjv encounter procedureJohn Cannon [facility] Start: 02-02-2025 End: 95-69-2031mtpzqvbmdnYSAWJYAdams County [facility] Start: 02-01-2025 End: 15-69-1652fhzbofdzjhXvkbixrp A. 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 imary Dx); Sensorineural hearing loss (SNHL) of right ear with unrestricted hearing of left ear; ETD (Eustachian tube dysfunction), bilateralStart: 01-20-2025 End: 31-00-6253nzrgaawimkYFYNKQ H TIMMISNot AvailableStart: 01-19-2025 End: 78-77-6504Dodmmq Stanford Clark AUD Work Phone: noms NB AUDStart: 01-19-2025 End: 42-80-9825Vhgvjq flowsYara Clark AUD Work Phone: noms NB AUDStart: 01-19-2025 End: 06-73-0497Nsufwda encounter procedureJulieth Clark AUD Work Phone: noZF AUDComment on above:Mixed hearing loss, bilateral (Primary Dx); Other specified disorders of Eustachian tube, unspecified earStart: 01-19-2025 End: 45-07-0432xeqtptjzzvZAKHKRY Mildred CLARKNot AvailableStart: 59-61-7690Fgt- patient / Non-visitFirelands Physician [facility] Work Phone: Start: 24-01-1141Vnhqeud encounter procedureDomingotheron Clark AUD Work Phone: noms HealthcareStart: 35-89-9274Loe-patient / Non-visitFirchapticos Physician [facility] Work Phone: Start: 01-12-2025 End: 83-72-4678tfyxoijiiwYvzwck SpringerFacility:FTMCStart: 01-12-2025 End: 47-20-7688Pcqafka encounter procedureAmanda De La Cruz [facility] Start: 36-47-8937Byb-patient / Non-visitFirchapticos Physician [facility] Work Phone: Start: 12-28-2024 End: 02-63-6372qhyxxfodgkGNVMJJ [facility] Start: 12-15-2024 End: 94-32-3855gvymkqmqreOjyowi SpringerFacility:FTMCStart: 12-15-2024 End: 44-03-1890Duuswlg encounter procedureAmanda De La Cruz [facility] Start: 12-07-2024 End: 86-25-8602qhsadzaapqPbdtuqkt A. JonesFacility:FTMCStart: 12-07-2024 End: 78-39-3385Lqef Genet Cannon [facility] Start: 01-46-5603Rgy-patient / Non-visitFirelands Physician GroupW[facility] Work Phone: Start: 29-69-3471Otr-patient / Non-visitDuke Health Physician [facility] Work Phone: Start: 11-12-2024 End: 78-12-7796Uehqppn encounter procedureDuke Health Physician GroupBarney [facility]'s [facility] Work Phone: Start: 11-03-2024 End: 83-86-7460jzknlpulnkMKRTSY [facility] Start: 10-29-2024 End: 29-21-6790xlwhqvrfhoLqwxhhlb A. JonesFacility:FTMCStart: 10-29-2024 End: 68-96-4292Nqlizvr encounter Bella Cannon [facility] Start: 10-13-2024 End: 46-16-0872csanszjjivDwoeqk SpringerFacility:FTMCStart: 10-13-2024 End: 65-78-0479Fkbkgfc encounter procedureAmanda StrongSteam [facility] Start: 09-08-2024 End: 87-03-6318shvufdqurtXlsmzzyy A. JonesFacility:FTMCStart: 09-08-2024 End: 96-26-2565Qcka ManagementJohn Cannon [facility] Start: 08-31-2024 End: 34-74-4357lljmnwoaogYGBQNP [facility] Start: 08-03-2024 End: 12-12-6685dvcxjmsvavJBMWOXOM BALLFacility:FTMCStart: 08-03-2024 End: 14-73-0777Xporjxy encounter procedureAmanda StrongSteam [facility] Start: 78-53-0355Lzpisrb encounter procedureNationwide Children's Hospitaltart: 05-18-2024 End: 10-64-7207bcznweptukSOZLNQAW BALLFacility:FTVENCOR HOSPITALtart: 05-18-2024 End: 08-84-7227Dquf [facility] Start: 03-27-2024 End: 46-61-9007NddzK[facility] Start: 02-14-2024 End: 29-41-0336Uxpr [facility] Start: 02-11-2024 End: 54-81-7682qontjmwtepRdfoeitd Ball Other [employer] Other Start: 08-05-4043Nagzrtxib encounterBenjamin BallFPG [facility] ClinicStart: 01-15-2024 End: 74-51-8021Lcsj Genet Cnanon [facility] Start: 12-16-2023 End: 73-43-1155Oucz [facility] StrongSteam [facility] Start: 11-27-2023 End: 28-54-0496rtvrzojcwwXhdmzfhn Ball Other [employer] Other start: 28-72-4880Hdqtxnvca encounterBenjamin BallFPG [facility] ClinicStart: 11-19-2023 End: 37-72-5319spavnpvlihScvxxxda Ball Other [employer] Other Start: 80-33-4816Rfqohzryg encounterBenjamin BallFPG [facility] ClinicStart: 11-14-2023 End: 79-71-8478lpeyjqouypYfupoumc Ball Other [employer] Other Start: 55-95-5447Ttypepfum encounterBenjamin BallFPG [facility] ClinicStart: 11-12-2023 End: 93-79-4031npllmrrwarFmmbotne Ball Other [facility] [employer] Other Start: 60-66-5906Zdmkbt outpatient visit 25 minutes Cristobal BallFPG [facility] ClinicStart: 11-08-2023 End: 86-56-6174Xftu [facility] StrongSteam [facility] Start: 09-06-2023 End: 32-56-1584Rxlm [facility] StrongSteam [facility] Start: 09-04-2023 End: 94-19-9022cmzsmzckpdFsshonbu Ball Other [facility] [employer] Other Start: 13-44-3215Smmojqktb encounterBenjamin BallFPG [facility] ClinicStart: 08-21-2023 End: 29-48-0770semgmixhmkZkgvjxvu Ball Other [facility] [employer] Other Start: 82-76-5326Trbswgjmk encounterBenjamin BallFPG [facility] ClinicStart: 08-06-2023 End: 38-91-6013Jedz ManagementHimanshu Wright [facility] Start: 07-23-2023 End: 40-60-7743mbhazebbunKdznxbsb Ball Other [employer] Other Start: 41-84-9598Oqrgvoibw encounterBenjamin BallFPG [facility] ClinicStart: 07-02-2023 End: 72-19-6030Aofe [facility] StrongSteam [facility] Start: 03-19-2023 End: 58-02-8557ruvbwjbqchZhryrrjz Ball Other [employer] Other Start: 14-50-7332Lqxhjd outpatient visit 15 minutes Cristobal BallFP[facility] ClinicStart: 03-08-2023 End: 67-19-4957wlyfgewfhbLqfxjjif Ball Other [employer] Other Start: 99-27-6332Evojcyygk encounterBenjamin BallFPG [facility] ClinicStart: 59-65-0245Scakdwfyf encounterBenjamin BallFP[facility] ClinicStart: 03-07-2023 End: 18-80-8294qifkvookxpGX CRISTOBAL [facility] [employer] Other Start: 02-26-2023 End: 86-53-8688ydsqqwuiqePmkkyoqq Ball Other [employer] Other Start: 28-16-0961Trlhzpndi encounterBenjamin BallFPG [facility] ClinicStart: 02-68-9190Naycjewid encounterBenjamin BallFPG [facility] ClinicStart: 01-18-2023 End: 44-83-6692uiuzlotowdMN [facility] [employer] Other start: 01-11-2023 End: 05-35-9262Qlkq [facility] StrongSteam [facility] Start: 01-08-2023 End: 53-98-9408egwqrdkyjtLsblcakv Ball Other [facility] [employer] Other Start: 37-46-1935Yrhlgz outpatient visit 25 minutes Cristobal KearnsROSALINDARaymundo Kearns Medical ClinicStart: 12-12-2022 End: 95-53-8001Mkff ManagementZahenriettashelli Zumbar [facility] Start: 11-23-2022 End: 86-46-4500pforndtbcwGA CRISTOBAL KEARNSFacility:M4Ibsfw: 11-18-2022 End: 98-65-8692vkhulpiimqJH CRISTOBAL KEARNSFacility:L8Wrkyw: 11-08-2022 End: 12-19-9153Mhtftsz encounter procedureZachashelli Barriosumbar [facility] Start: 11-08-2022 End: 19-99-9009Ftyi ManagementZacleveland clinic children's hospital for rehabilitationshelli Barriosumbar [facility] Start: 08-29-2022 End: 90-50-5034quksoqlcoyBT MISCFacility:H2Whctr: 07-31-2022 End: 49-86-3413izjfbnpiwfMP MOI MOUKARBELFacility:B4Fdsfg: 07-02-2022 Encounter for preprocedural laboratory examinationDR CRISTOBAL KEARNSAshtabula County Medical Centertart: 06-29-2022 End: 90-50-1799Teohezdml for preprocedural laboratory examinationDR CRISTOBAL KEARNSFacility:J9Rtnjb: 06-29-2022 End: 80-41-1971eescvdevruZF CRISTOBAL KEARNSFacility:O9Htyqg: 06-14-2022 End: 36-38-7495sunocrffteXR CRISTOBAL Mcgillcility:H7Cuaad: 03-13-2022 End: 40-36-7689bgsuikqvkkUSNBWHBW J LAJINESSFacility:[facility] Procedures DateProcedureProcedure DetailPerforming ClinicianStart: 03-25-2025 Catheterization of left heartJohn Cannon start: 86-95-5711Npcznhdojlxmqe ablation of medial branch of lumbar nerve using fluoroscopic guidanceJohn [employer] start: 33-76-1370Ihzecvzoc of facet joint using fluoroscopic guidanceVT Silicon comment on above:B/L L4/5, L5/S1 MBB #2Start: 19-60-3562Qknbfz-up visitFollow-upPUNEET SINDHWANIStart: 97-81-4104Cbanzgnjw into facet joint of lumbar spine using fluoroscopic guidanceJohn Cannon start: 88-34-8214ZCJEYDKS FUNCTION TESTSJulieth LLANOS Work Phone: start: 64-68-5983Mpjyfuulz invasive decompression of lumbar spineMargareth StrongSteam start: 87-18-9439Smblqtuk injection of lumbar spine using fluoroscopic guidanceAmanReonomy comment on above:0% reliefStart: 92-71-6169Lgvvbmofa of nerve root of lumbar spine using fluoroscopic guidanceHermesReonomy comment on above:bilat L5/S1 TFESI- 90% relief x 2 weeksStart: 80-13-0830Gbhulwhvt of nerve root of lumbar spine using fluoroscopic guidanceHermesReonomy comment on above:L5-S1-90% reliefStart: 48-32-5128BIR screeningMICHELLE LAJINESSComment on above:Performed By: #### [id number] #### [address] [place] [address], USAStart: 56-95-3159Yoosgwrdz of nerve root of lumbar spine using fluoroscopic guidanceZachary ZProxino comment on above:Bilateral L5 TFESI-90-95% reliefStart: 38-73-0299Hvmsqvfz steroid injectionZachary Zumbar comment on above:bilat L5 TFESI- 100% relief x 2 weeks now down to 50%Start: 27-85-7947Csbgsaxr injection of lumbar spine using fluoroscopic guidanceLopez StrongSteam coronary bypass graft angiographyTutu BarriosUnderstorybill comment on above:2005Decompression of median nerve Tutu BarriosUnderstorybill comment on above:right 2013Fracture of ankle (disorder) Tutu BarriosUnderstorybill comment on above: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) Tutu BarriosUnderstorybill comment on above:disc herniation and fusion 2008 LaminectomyMayecleveland clinic children's hospital for rehabilitationshelli -[place] comment on above:nov 2019 Plan of Treatment DateCare ActivityDetailAuthorStart: 02-24-2025 End: 64-14-1545Nhahzxo encounter duccolqsc23/09/2025 1:30 PM EDT Office Visit [facility] [address] [facility] [address] [place] [address] Joseph Nunez MD [address] [facility] [address] [place] [address] ArrivedNOMS CI ENTComment on above:ArrivedStart: 01-20-2025 End: 82-95-9988Sbyotco encounter procedureNOMS CI ENTComment on above:Arrived Start: 01-19-2025 End: 60-85-4588Ibqpvtk encounter dtmjtjiqe79/04/2025 1:00 PM EST Office Visit [facility] AUD [address] [place] [address] [place] [id number] Julieth Clark S, AUD [address] [place] [address] ArrivedNOMS NB AUDComment on above:ArrivedStart: 09-20-2020 Pneumococcal Vaccine: 65+ Years (3 of 3 - PPSV23 or PCV20)Pneumococcal Vaccine: 65+ Years (3 of 3 - PPSV23 or PCV20)[facility] Immunizations Immunization DateImmunizationNotesCare GbpjdtlwSwcxdhnb91-02-0631sysskcknw virus vaccine, unspecified formulationCh[facility]ic[facility]10-19-2022 influenza, high dose seasonal, preservative-freeBenjakatya Ball Other [employer] Other [id number] virus vaccine, split virus (incl. purified surface antigen)Cristobal Kearns Other [employer] Other 10762126-83-3856lfullcgmr virus vaccine, unspecified formulationChillic[facility]09-24-2021COVID-19 Vaccine Pfizer - Documentation Purposes OnlyBenjamin Ball Other [facility]02-23-2021COVID-19 Vaccine Pfizer - Documentation Purposes OnlyBenjamin Ball Other [facility]02-02-2021COVID-19 Vaccine Pfizer - Documentation Purposes OnlyBenjamin Ball Other [facility]09-25-2020zoster vaccine, liveBenjamin Ball Other [facility]09-09-2020influenza virus vaccine, split virus (incl. purified surface antigen)Cristobal Kearns Other [employer] Other 09674297-16-9836cnuuclgkn virus vaccine, unspecified formulationChillicothe Hospital10-09-2019influenza virus vaccine, split virus (incl. purified surface antigen)Cristobal Kearns Other [employer] Other 10206408-46-2948ywpfprgrv virus vaccine, unspecified formulationChillicothe Hospital12-12-2018influenza virus vaccine, split virus (incl. purified surface antigen)Cristobal Kearns Other [employer] Other 12778913-16-6323ugzfstfyp virus vaccine, unspecified formulationChillic[facility] Hospital09-01-2017influenza virus vaccine, split virus (incl. purified surface antigen)Cristobal Kearns Other [employer] Other 09-899093-51-2550dxqgjobmj virus vaccine, unspecified formulationChillic[facility] Hospital11-22-2016influenza virus vaccine, split virus (incl. purified surface antigen)Cristobal Kearns Other [employer] Other 11-325813-38-5994aicejcfty virus vaccine, unspecified formulationChillicothe Hospital12-01-2015influenza virus vaccine, split virus (incl. purified surface antigen)Cristobal Kearns Other [employer] Other 12494928-90-1130hwydgfdca virus vaccine, unspecified formulationChillic[facility] Hospital11-03-2015pneumococcal conjugate vaccine, 13 valentBenjamin Som Other [facility]12-21-2012 pneumococcal polysaccharide vaccine, 23 valentBenjamin Som Other [facility] Payers DatePayer CategoryPayerPolicy [id number] Health Insurance [id number] 2024MedicaidAETNA MEDICARE ADVANTAGE [id number] Health [id number] 2.16.840.1.435532.3.579.2.647 [id number] 2.16.840.1.850551.3.57[id number] 2.16.840.1.080605.3.57[id number] 2..840.1.163838.3.57[id number] 2..840.1.547598.3.57[id number] 2..840.1.446757.3.579.2.33345-59-6509Vlpgjcb2000340 2.840.1.184504.3.579.[id number] 2.840.1.251550.3.579.[id number] 2..840.1.244396.3.579.2.22097-24-4407Luqoofx1794620 2..840.1.695624.3.579.2.47892-88-5332Dvuvwaf5384926 2..840.1.711978.3.579.2.796006-76-6327Zyzlnbq9875948 2.840.1.310639.3.579.2.314235-21-7595Gjahgjp6070864 2.16.840.1.423446.3.579.2.381125-64-9730Tnzdgpn88775696 2.840.1.222103.3.579.[id number] 2.840.1.456448.3.57[id number] 2.840.1.588994.3.579.2.17459-44-4548Lybsila69292629 2.840.1.349486.3.579.2.[id number] 2.840.1.385580.3.579.2.58609-66-5210Nsdbwnt88040122 2.840.1.331084.3.579.2.93103-21-1577Tvsiimk02758614 2.840.1.381658.3.579.2.48673-57-7208Vzfdpyp92570523 2.840.1.429642.3.579.2.55279-51-9996Udrgonl70855602 2.840.1.023739.3.579.2.05122-50-3347Mkgctzh21594593 2.840.1.998096.3.579.[id number] 2.840.1.383738.3.579.2.87427-46-4441Zuhtlth35039529 2.840.1.229960.3.579.2.40854-44-3520Rzziovq74859245 2.840.1.924635.3.579.2.26307-07-7623Akxvozv79745123 2.840.1.642934.3.57[id number] 2.840.1.631221.3.57[id number] Health InsuranceAetna Insurance Co [id number] Social History DateTypeDetailFacilityStart: 12-09-2019 End: 45-56-9321Qyztmbz smoking statusEx-smoker (finding)[facility] HospitalComment on above:Quit in 1982Start: 83-66-7933Vwq [facility] HospitalTobacc smoking status NHISTobacco smoking consumption unknownNOMS HealthcareStart: 00-53-7167Tsd assigned at birthNot on fileNOMS HealthcareStart: 11-18-1963 End: 13-32-5864Cvrhcxv of tobacco useCurrent smokerNOMS HealthcareStart: 11-18-1963 End: 52-87-8491Dfhdpmj of tobacco useCigarette SmokerNOMS HealthcareStart: 01-20-2025 End: 86-54-8171Xgquhoa use and exposureSmokeless tobacco non-userNOMS Healthcare Start: 01-20-2025 End: 70-54-9889Gzzlmyxbu beverage intakeLifetime non-drinker (finding)[facility] HealthcareStart: 01-20-2025 End: 51-99-1536Hzpdwtv of Social functionNOMS HealthcareSexual OrientationMercer County Community Hospital Start: 03-01-2010 End: 30-16-4865ZoxCzlw (finding)[facility] Hospitaltart: 1950 [facility]igned At [facility] Medical Equipment Procedure CodeEquipment CodeEquipment Original TextEquipment IdentifierDates Start: 97-53-4249Xhc Needle, Diabetic (Bd Ultra-Fine Short Pen Needle) 31 gauge x 5/16 needleStart: 84-57-9198Usq Needle, Diabetic 31 gauge x 5/16 needle Start: 67-40-8404Zjt Needle, Diabetic (Bd Ultra-Fine Short Pen Needle) 31 gauge x 04/02 needleStart: 05-27-2024 End: 05-02-2025 Functional Status BqyyLntuywytgmDrbtkyLcqgmyqn17-47-7087Pgxczfrqqh StatusN/[facility]04-29-2025Functional StatusN/[facility]04-11-2025 Functional StatusN/[facility]04-07-2025Functional StatusN/A [facility]03-20-2025Functional StatusN/[facility]02-25-2025Functional StatusN/[facility] 66-02-0137Decbtziztm StatusN[facility]01-20-2025Functional StatusN[facility]12-12-2024Functional StatusN[facility]11-26-2024Functional StatusN[facility] 78-12-0100Erqtvrruul StatusN[facility]09-16-2024Functional StatusN/[facility]07-01-2024Functional StatusN[facility]05-10-2024Functional StatusN[facility] 78-58-4353Gzulqxbzfw StatusN[facility]02-28-2024Functional StatusN[facility]01-29-2024Functional StatusN[facility]12-22-2023Functional StatusN[facility] 04-96-8381Ujyhmakyzt StatusN[facility]09-19-2023Functional StatusN[facility]08-15-2023Functional StatusN[facility]02-24-2023Functional StatusN[facility] 20-60-2798Rxunfhdrfu StatusN[facility]12-22-2022Functional StatusN[facility] Clinical Notes 01-08-2023 to 08-28-2025 Note Date & DwtyOfvsXsxlgach35-52-9978 NoteXR CHEST 1 VW Procedure: Chest x-ray performed Number of views:1 History:Syncope Comparison:None Findings: The heart and lungs show no acute findings, and the mediastinum and yodit are grossly negative . Impression: 1. No acute change. Finalized by Jax Prakash MD on 08/28/2025 7:05 [facility] 07-20-2025 NoteUT Electrophysiology Consult Note [place] [facility] Reason for visit: Nonsustained ventricular tachycardia HPI: Trae Pineda is a 75 y.o. year old with past medical history of CAD s/p CABG with a subsequent cath in 2014 that revealed Patent 2/2 bypass grafts (left internal mammary artery to left anterior descending artery and radial graft to posterior descending artery), 50% in-stent restenosis in patent left anterior descending artery., 100% occluded right coronary artery, Normal cardiac output and cardiac index. His echocardiogram 2015 showed stable mildly reduced LV EF of 45%. With a repeat improvement of EF to 50% by June 2017 and subsequent echo showing EF of 45% in 2017. He has been followed by Dr. HERZOG and lately by Dr. Eddie Dao. He had a cardiac catheterization in 2024 which showed stable CAD where no further additional revascularization was required and his filling pressures were noted to be normal. He had endorsed episodes of palpitations and skipped beats for which event monitor was placed. This revealed evidence of sinus rhythm with PACs and PVCs with a PVC burden less than 1%. There was some episodes of nonsustained ventricular tachycardia as noted below. No atrial fibrillation was seen He also had a prior event monitor in August 2024 which revealed nonsustained ventricular tachycardia of 8 beats as below Patient here for NSVT on monitor per Dr. Moss. Had PFT's recently and was started on a new inhaler. This has been improving with a new inhaler. Has intermittent dizzy spells. PMH: Medical History[1] PSH: Surgical History[2] SH: Social Drivers of Health Tobacco Use: Medium Risk (04/28/2025) Patient History Smoking Tobacco Use: Former Smokeless Tobacco Use: Never Passive Exposure: Never Alcohol Use: Not on file Financial Resource Strain: Not on file Food Insecurity: Not on file Transportation Needs: Not on file Physical Activity: Not on file Stress: Not on file Social Connections: Not on file Intimate Partner Violence: Unknown (02/02/2025) Humiliation, Afraid, Rape, and Kick questionnaire Fear of Current or Ex-Partner: No Emotionally Abused: Not on file Physically Abused: Not on file Sexually Abused: Not on file Depression: Not at risk (02/02/2025) PHQ-2 PHQ-2 Score: 0 Housing Stability: Not on file Utilities: Not on file Health Literacy: Not on file Allergies: Allergies[3] Weight: 106kg Visit Vitals BP 159/67 (BP Location: Right arm, Patient Position: Sitting) Pulse 75 Ht 1.829 m (6') Wt 106 kg (234 lb) SpO2 99% BMI 31.74 kg/m??? Smoking Status Former BSA 2.32 m??? Meds: Medications Ordered Prior to Encounter[4] ROS: Review of Systems Cardiovascular: Positive for dyspnea on exertion. Musculoskeletal: Positive for arthritis, back pain and myalgias. Neurological: Positive for dizziness and light-headedness. All other systems reviewed and are negative. Physical Exam: Constitutional General Appearance: well-nourished, well-developed, appears stated age Level of Distress: comfortable Eyes JOYCE Neck Neck: supple, trachea midline Carotid Arteries: bilateral normal upstroke, no bruits Jugular Veins: normal jugular venous pressure Thyroid: not enlarged Lungs Respiratory Effort: unlabored Chest Exam: normal curvature, no thoracic deformity Auscultation: clear, no wheezing, no rales, no rhonchi Cardiovascular Chest wall: Rate And Rhythm: regular Heart Sounds: normal S1, normal s2, no gallop Systolic Murmur: not heard Diastolic Murmur: not heard Extremities: no cyanosis, no edema, no peripheral signs of emboli Peripheral Pulses Radial Pulse: normal Abdomen Inspection and Palpation: soft, non distended, no bruit, non tender Neurologic Gait: normal gait Labs: @LABRESULTS@ No results found for: CHOLESTEROL TOTAL , HDL , LDL CALC , LDL DIRECT , TRIGLYCERIDES , TSH , T3 TOTAL , T4 TOTAL , THYROID PEROXIDASE AB , BNP EKG: Encounter Date: 03/25/25 Electrocardiogram, 12-lead Result Value Ventricular Rate 57 Atrial Rate 57 UT Interval 256 QRS DURATION 100 QT Interval 440 QTC CALCULATION(BAZETT) 428 P [place] 53 R-[place] 5 T Wave [place] 66 Impression Sinus bradycardia with 1st degree A-V block with Premature atrial complexes Inferior infarct (cited on or before 22-JUN-2005) Abnormal ECG When compared with ECG of 06-JUN-2015 11:12, Premature atrial complexes are now Present UT interval has increased Confirmed by Roxie ELENA, L.S. (2) on 03/25/2025 12:03:42 PM Echo: 08/19/2024 Stress test: Coronary angiogram: 03/25/2025 Impression/Findings: Stable coronary artery disease. Patent proximal LAD stents, 80% diffuse mid LAD stenosis with patent WEBER to LAD. Patent previously placed stents in the proximal first 2 obtuse marginal branches of the circumflex. Occluded RCA with filling of the distal vessel via pa (more content not included)...[facility]06-11-2025 NoteUT Cardiology - [facility] Subjective Trae Pineda is a 75 y.o. year old male patient being seen for a follow up S/P angiogram. Patient states he feels the same, fatigued, SOB, no energy and palpitations, ARAGON, leg swelling. Patient Active Problem List Diagnosis Type 2 diabetes mellitus without complication (CMS/HCC) Seizure (CMS/HCC) Chronic prostatitis Prostate cancer screening Kidney stone Hyperlipidemia Generalized ischemic myocardial dysfunction Generalized anxiety disorder Gallstone ARAGON (dyspnea on exertion) Disorder of lipid metabolism Depressive disorder Chronic obstructive lung disease (CMS/HCC) Chronic anxiety Chest pain Primary hypertension Coronary artery disease involving stillaguamish coronary artery of stillaguamish heart Coronary arteriosclerosis of stillaguamish coronary artery of transplanted heart Suprapubic discomfort [...] bladder emptying Urge urinary incontinence Orthostatic dizziness Encounter for screening for malignant neoplasm of prostate Arthritis, rheumatoid (CMS/HCC) Nonsustained ventricular tachycardia (CMS/HCC) Shortness of breath Foot pain, right Arthritis of right ankle Family History Problem Relation Name Age of Onset Heart failure Mother Prostate cancer Father Zak Pineda Coronary artery disease Brother Social History Tobacco Use Smoking status: Former Current packs/day: 0.00 Types: Cigarettes Quit date: 11/18/1982 Years since quittin.4 Passive exposure: Never Smokeless tobacco: Never Vaping [...] reduced (Visually estimated EF 45%). Mild left ve (more content not included)...[facility] 04-06-2025 NoteConsultation Note Patient is presenting with a history of lumbar spondyloarthropathy, lumbar stenosis neurogenic claudication right knee pain. On07/2025 he underwent bilateral lumbar medial branch radiofrequency ablation targeting L4/5 and L5/S1 facet joints under fluoroscopic guidance with 50% improvement overall. He rates his pain as a 1/10 while sitting and feels that twisting turning and bending motions areimproved. He still is a 7/10 pain at worst exacerbated with activity such as bending standing walking. We discussed that his pain in his low back is multifactorial and most of his symptoms appear to be related to lumbar stenosis with neurogenic claudication as he does have some lower extremity symptoms and diminished ambulatory distance still. He feels that the mild was very helpful in improving this somewhat but this is still the most limiting factor for him. We discussed that he should continue with formal or on his own therapy and trial things such as a recumbent bicycle which may provide longer duration of exercise tolerance based on the positioning. He is going to trial this as well asSilver sneakers but may consider referral to formal physical therapy is not making as much progresson his own. Overall he is pleased with his results and feels that his functional status is good given that he is not in a spot where he would like to consider lumbar spine surgery either. LEONOR Score: 36% PHQ-2: 0 Patient denies any symptoms of progressively worsening upper/lower extremity weakness, progressively worsening gait abnormality, new onset bowel/bladder incontinence/ urinary retention, or saddle anesthesia. No new or worsening symptoms of fever, chills, night sweats. 14 Point Review of systems negative unless otherwise noted. General: No acute distress. Patient appears well-nourished. HEENT: Head is normocephalic and external ears are normal in appearance. Cardiovascular: No signs of poor perfusion and no peripheral edema Pulmonary: Nonlabored breathing, symmetric chest movement. GI: Abdomen nondistended Integumentary: No lesions Neurologic: Alert, oriented x3. 5/5 strength grossly in the bilateral upper extremities. Sensation intact to light touch in the bilateral upper extremities. 5/5 strength grossly in the bilateral lower extremities. Sensation intact to light touch in the bilateral lower extremities. History, physical examination, and personal review of pertinent imaging results indicate a diagnosis of: - Lumbar spondyloarthropathy - Lumbar stenosis with neurogenic claudication - Right knee pain. Plan: - PRN Lumbar medial branch radiofrequency ablation target L4/5 and L5/S1 facet joints under fluoroscopic guidance anticipation of radiofrequency ablation of effective - Consider referral to formal physical therapy for his low back as well as right knee, patient would like to defer at this time and trial Silver sneakers on his own but may consider this in the future Patient was counseled on the above diagnosis and treatment, all questions were answered and patientagrees to adhere to the plan above. Risk and benefits of appropriate procedures and medications were reviewed as well with patient, who voiced understanding and agreeance. Patient was counseled on appropriate use of opioids if prescribed or renewed today and naloxone was offered to patient if opioids were prescribed or maintained at this visit. PHQ-2 scoring reviewed with patient and discussed seeking treatment for depression or mood disorder as appropriate. Patient was counseled on smoking cessation and/or continuing to abstain from nicotine/tobacco products as appropriate based on history for greater than 3 minutes if appropriate; as smoking/nicotine can contribute to increased pain overall and decreased wound healing, counseling performed for smoking cessation when appropriate for F17.200 nicotine dependence. LEONOR reviewed and discussed during encounter. Patient counseled on maintaining a healthy BMI as part of the total treatment of their pain and to reduce stress/strain on joints.Patient invited to return or call with any questions or concerns that arise.[facility] HospitalComment on above:Result Comment: Electronically Signed By: John Cannon DO\.br\Date and Time Signed: 04/06/25 14:03 EDT 04-06-2025 Evaluation + Plan noteExtracted from:Title:chronic painAuthor:John Cannon DODate:04/06/25 Patient is presenting with a history of lumbar spondyloarthropathy, lumbar stenosis neurogenic claudication right knee pain. On07/2025 he underwent bilateral lumbar medial branch radiofrequency ablation targeting L4/5 and L5/S1 facet joints under fluoroscopic guidance with 50% improvement overall. He rates his pain as a 1/10 while sitting and feels that twisting turning and bending motions are improved. He still is a 7/10 pain at worst exacerbated with activity such as bending standing walking. We discussed that his pain in his low back is multifactorial and most of his symptoms appear to be related to lumbar stenosis with neurogenic claudication as he does have some lower extremity symptoms and diminished ambulatory distance still. He feels that the mild was very helpful in improving this somewhat but this is still the most limiting factor for him. We discussed that he should continue with formal or on his own therapy and trial things such as a recumbent bicycle which may provide longer duration of exercise tolerance based on the positioning. He is going to trial this as well as Silver sneakers but may consider referral to formal physical therapy is not making as much progress on his own. Overall he is pleased with his results and feels that his functional status is good given that he is not in a spot where he would like to consider lumbar spine surgery either. LEONOR Score: 36% PHQ-2: 0 Patient denies any symptoms of progressively worsening upper/lower extremity weakness, progressively worsening gait abnormality, new onset bowel/bladder incontinence/ urinary retention, or saddle anesthesia. No new or worsening symptoms of fever, chills, night sweats. 14 Point Review of systems negative unless otherwise noted. General: No acute distress. Patient appears well-nourished. HEENT: Head is normocephalic and external ears are normal in appearance. Cardiovascular: No signs of poor perfusion and no peripheral edema Pulmonary: Nonlabored breathing, symmetric chest movement. GI: Abdomen nondistended Integumentary: No lesions Neurologic: Alert, oriented x3. 5/5 strength grossly in the bilateral upper extremities. Sensation intact to light touch in the bilateral upper extremities. 5/5 strength grossly in the bilateral lower extremities. Sensation intact to light touch in the bilateral lower extremities. History, physical examination, and personal review of pertinent imaging results indicate a diagnosis of: - Lumbar spondyloarthropathy - Lumbar stenosis with neurogenic claudication - Right knee pain. Plan: - PRN Lumbar medial branch radiofrequency ablation target L4/5 and L5/S1 facet joints under fluoroscopic guidance anticipation of radiofrequency ablation of effective - Consider referral to formal physical therapy for his low back as well as right knee, patient would like to defer at this time and trial Silver sneakers on his own but may consider this in the future Patient was counseled on the above diagnosis and treatment, all questions were answered and patientagrees to adhere to the plan above. Risk and benefits of appropriate procedures and medications were reviewed as well with patient, who voiced understanding and agreeance. Patient was counseled on appropriate use of opioids if prescribed or renewed today and naloxone was offered to patient if opioids were prescribed or maintained at this visit. PHQ-2 scoring reviewed with patient and discussed seeking treatment for depression or mood disorder as appropriate. Patient was counseled on smoking cessation and/or continuing to abstain from nicotine/tobacco products as appropriate based on history for greater than 3 minutes if appropriate; as smoking/nicotine can contribute to increased pain overall and decreased wound healing, counseling performed for smoking cessation when appropriate for F17.200 nicotine dependence. LEONOR reviewed and discussed during encounter. Patient counseled on maintaining a healthy BMI as part of the total treatment of their pain and to reduce stress/strain on joints.Patient invited to return or call with any questions or concerns that arise.[facility] [id number] NotePatient: Trae Ventura Edwin Procedure Information Date/Time: 03/25/25 1130 Procedures: Coronary angiography Coronary bypass graft study Right heart cath Location: [facility] 3 / [facility] (Cath) Providers: Moi Moss MD Clinical information reviewed: Allergies Meds Physical Exam Airway Mallampati: III TM distance: <3 FB Cardiovascular Rhythm: regular Rate: normal Dental Pulmonary Abdominal Anesthesia Plan ASA 3 other (Conscious ) Anesthetic plan and risks discussed with patient. Use of blood products discussed with patient who consented to blood products. Plan discussed with attending. Additional Equipment RequestsAC[facility]04-[facility] Note Consultation Note Patient: TRAE PINEDA Age: 74 years Sex: Male : 1950 Associated Diagnoses: None Author: Margareth De La Cruz PA-C Subjective Chief complaint 02/26/2025 13:49 EDT low back pain . Patient is a 74-year-old male. He presents today for follow-up after undergoing his second bilateral medial branch block covering the L4-S1 facet joints. This was done on 02/22/2025 and gave him 100% relief for an hour followed by a few more hours of 80% relief. He states that he in fact had relief until the next day when his pain then returned. It is back to baseline at a 8/10 in the lower back. Worse with standing, worse with being upright, worse with being active. He is eager to get long-term relief. He had his first injection done on 02/01/2025 with the same amount of significant short-livedrelief. Patient wants to continue the process and pursue the RFA to get long-term relief of the back pain. Health Status Allergies: Allergic Reactions (Selected) Severity [...] Medication: CBD 250 Topical Cream, as needed Myrbetriq 50 mg oral tablet, extended release: 50 mg = 1 tab(s), Oral, Daily, Refills(s) 0 Norvasc: 5 mg, Oral, Daily, Refills(s) 0 PreserVision AREDS: 1 cap(s), Oral, Daily, Refill(s) 0 Ranexa: 500 mg, Oral, BID, Refills(s) 0 Repatha 140 mg/mL subcutaneous solution: SubCutaneous, q2wk, Refills(s) 0 Tylenol: 500 mg, PRN PRN as needed for pain, Refills(s) 0 Uroxatral 10 mg Tab-ER: 10 mg = 1 tab(s), Oral, Daily, # 30 tab(s), Refills(s) 0 Vitamin B12: Oral, Daily, Refills(s) 0 Zetia: 10 mg, Oral, Daily, Refills(s) 0 aspirin: 81 mg, Daily, Refills(s) 0 calcium (as carbonate) 600 mg oral tablet: 600 mg = 1 tab(s), Oral, Daily, Refills(s) 0 dutasteride 0.5 mg Cap: 0.5 mg = 1 cap(s), Oral, Daily, TAKE 1 CAPSULE BY MOUTH IN THE MORNING fluticasone Nasal 0.05 mg/inh [place]: Refill(s) 0 lisinopril: 10 mg, Daily, Refills(s) 0 loratadine 10 mg oral capsule: 10 mg = 1 cap(s), Oral, Daily, # 10 cap(s), Refills(s) 0 metoprolol succinate 25 mg ER Tab: 12.5 mg = 0.5 tab(s), Oral, Daily, Refills(s) 0 testosterone 2% transdermal cream: See Instructions, apply topically daily, Refills(s) 0 Problem list: All Problems History of heart attack / SNOMED CT 1599589502 / Confirmed Acute angina / SNOMED CT 130862943 / Confirmed Irregular heart beat / SNOMED CT 870515836 / Confirmed HTN (hypertension) / SNOMED CT 0044982526 / Confirmed High cholesterol / SNOMED CT 48336979 / Confirmed H/O heart bypass surgery / SNOMED CT 560254166 / Confirmed Apnea, sleep / SNOMED CT 807114878 / Confirmed CPAP (continuous positive airway pressure) dependence / SNOMED CT 7201085901 / Confirmed Enlarged prostate / SNOMED CT 670918597 / Confirmed Chronic kidney disease (CKD) / SNOMED CT 4635181775 / Confirmed Diabetes / SNOMED CT 103877683 / Confirmed Carpal tunnel syndrome / SNOMED CT 84778371 / Confirmed Anemia / SNOMED CT 146730201 / Confirmed Arthritis, rheumatoid / SNOMED CT 562429210 / Confirmed Obesity / ICD-9-CM 278.00 / Possible Obesity / SNOMED CT [id number] / Possible Objective Vital Signs 02/26/2025 13:49 EDT Peripheral Pulse Rate 54 bpm LOW Respiratory Rate 16 br/min Systolic Blood Pressure 134 mmHg Diastolic Blood Pressure 64 mmHg Mean Arterial Pressure, Cuff 87 mmHg General: Alert and oriented, No acute distress. Eye: Normal conjunctiva. HENT: Normocephalic, Normal hearing. Cardiovascular: No edema. Musculoskeletal Normal range of motion. Normal strength. 5/5 lower extremity strength Pain with compression of the bilateral lumbar facet joints Increased lower back pain with bilateral facet loading Integumentary: Warm, Dry, [place]. Neurologic: Alert, Oriented. Psychiatric: Cooperative, Appropriate mood & affect. 14 point review of systems was negative unless otherwise noted. Results Review Lumbar arm MRI report reviewed. Impression and Plan Patient is a 74-year-old male with a past medical history significant for lumbar stenosis and lumbar spondylosis. Patient underwent his second bilateral medial branch block covering the L4-S1 facet joints. This was done on 02/22/2025 and gave him very significant short-lived relief. At this time, he has gotten significant relief with both medial branch blocks and is eager to pursue the RFA process to get some long-term relief. At this time, based on his imaging findings, his failure to improve with conservative treatments and the significa (more content not included)...[facility] HospitalComment on above:Result Comment: Electronically Signed By: Margareth De La Cruz PA-C\.br\Date and Time Signed: 02/26/25 14:01 [id number] Evaluation + Plan noteExtracted from:Title: Pain Managment Follow upAuthor:Margareth De La Cruz PA-CDate:02/26/25 Impression and Plan Patient is a 74-year-old male with a past medical history significant for lumbar stenosis and lumbar spondylosis. Patient underwent his second bilateral medial branch block covering the L4-S1 facet joints. This was done on 02/22/2025 and gave him very significant short-lived relief. At this time, he has gotten significant relief with both medial branch blocks and is eager to pursue the RFA process to get some long-term relief. At this time, based on his imaging findings, his failure to improve with conservative treatments and the significant response he got from the injections I recommended bilateral medial branch RFA covering the L4-S1 facet joint. This to be done under fluoroscopy for therapeutic purposes. Procedure was discussed. Risks and benefits were discussed. Patient is agreeable. He is going to follow-up 3 weeks after the RFA for reevaluation. Call next if necessary. LEONOR score: 42%.[facility] 04-09-[facility] History of Present illness Narrative* Joseph Nunez MD - 02/24/2025 1:30 PM EDT Images from the original note were not included. Subjective Patient ID: Trae Pineda is a 74 y.o. male who presents for Ear Problem (1 month check ears) Pt notes intermittent RT ear fullness and HL. OK today. Getting heart cath in one mo. Family History Problem Relation Name Age of Onset Hearing loss Mother Judith Pineda Heart failure Mother Judith Pineda Cancer Father Zak Pineda Active Ambulatory Problems Diagnosis Date Noted Anemia 06/04/2023 Coronary arteriosclerosis of stillaguamish coronary artery of transplanted heart ([facility]) 07/21/2014 Arthritis, rheumatoid ([facility]) 01/18/2025 Benign prostatic hyperplasia with lower urinary tract symptoms 08/14/2022 Body mass index (BMI) 32.0-32.9, adult 03/12/2024 Carotid bruit 03/12/2024 Carpal tunnel syndrome 06/04/2023 Acute angina ([facility]) 01/18/2025 Chronic anxiety 07/25/2022 Chronic bronchitis, mucopurulent (CMS/[facility]) 03/12/2024 Chronic obstructive lung disease (CMS/[facility]) 01/27/2013 Chronic kidney disease 06/04/2023 CPAP (continuous positive airway pressure) dependence 06/04/2023 Cystitis cystica 03/17/2024 Depressive disorder (CMS/HCC) 01/27/2013 Disorder of lipid metabolism (CMS/HCC) 08/31/2014 ARAGON (dyspnea on exertion) 02/24/2013 Enlarged prostate 06/04/2023 Erectile dysfunction 08/14/2022 Gallstone 01/27/2013 Generalized anxiety disorder (CMS/HCC) 01/27/2013 Generalized ischemic myocardial dysfunction (CMS/HCC) 07/25/2022 GERD (gastroesophageal reflux disease) 03/12/2024 History of heart attack (CMS/[facility]) 01/18/2025 History of open heart surgery 06/04/2023 High cholesterol ([facility]) 01/18/2025 Hypogonadism in male 08/14/2022 Incomplete bladder emptying 05/14/2024 Irregular heart rhythm 06/04/2023 Kidney stone 01/27/2013 Lumbar spondylosis 03/12/2024 Lung nodule 08/14/2022 Nicotine dependence, cigarettes, in remission 03/12/2024 Orthostatic dizziness 07/30/2024 Other obesity due to excess calories 03/12/2024 Benign essential hypertension ([facility]) 07/30/2014 Medicare annual wellness visit, subsequent 01/18/2025 Seizure ([facility]) 01/27/2013 TALA (obstructive sleep apnea) 01/18/2025 Spinal stenosis, lumbar region with neurogenic claudication 01/20/2024 Suprapubic discomfort 08/14/2022 Diabetes ([facility]) 01/18/2025 Type 2 diabetes mellitus with diabetic polyneuropathy ([facility]) 03/12/2024 Urge urinary incontinence 05/14/2024 Nonsustained ventricular tachycardia ([facility]) 02/17/2025 Resolved Ambulatory Problems Diagnosis Date Noted No Resolved Ambulatory Problems Past Medical History: Diagnosis Date HL (hearing loss) Sleep apnea Tinnitus TMJ dysfunction Past Surgical History: Procedure Laterality Date ANKLE SURGERY Left APPENDECTOMY CARDIAC SURGERY bypass CARPAL TUNNEL RELEASE Right CERVICAL SPINE SURGERY [facility] CORONARY ANGIOPLASTY WITH STENT PLACEMENT 5 stents PROSTATE SURGERY Allergies Allergen Reactions Pregabalin Swelling Statins Other and Unknown Other Reaction(s): muscle ache Hydralazine Other and Palpitations Other reaction(s): chest pain Current Outpatient Medications on File Prior to Visit Medication Sig Dispense Refill acetaminophen (Tylenol Extra Strength) 500 MG tablet 500 mg every 6 (six) hours alfuzosin ER (Uroxatral) 10 MG 24 hr tablet TAKE 1 TABLET BY MOUTH IN THE MORNING, DO NOT CRUSH, CHEW, OR SPLIT Alpha-Lipoic Acid 200 MG capsule Twice daily amLODIPine (Norvasc) 5 MG tablet Take 1 tablet by mouth Daily ascorbic acid (Vitamin C) 500 MG tablet Take 1 tablet by mouth in the morning. aspirin 81 MG EC tablet Take 1 tablet by mouth Daily Calcium Carb-Cholecalciferol (CALCIUM 500 +D PO) Take by mouth evolocumab (Repatha) 140 MG/ML injection INJECT 1 ML EVERY 2 WEEKS BY SUBCUTANEOUS ROUTE FOR 90 DAYS. ezetimibe (Zetia) 10 MG tablet Take 1 tablet by mouth Daily fluticasone (Flonase) 50 MCG/ACT nasal spray Administer 2 sprays into each nostril Daily Shake gently. Before first use, prime pump. After use, clean tip and replace cap. 48 g 3 insulin NPH, Isophane, (HumuLIN N,NovoLIN N) 100 UNIT/ML injection Inject under the skin 2 (two) times a day before meals lisinopril 10 MG tablet Take 1 tablet by mouth Daily Loratadine 10 MG capsule Take 10 mg by mouth metoprolol tartrate (Lopressor) 25 MG tablet Take by mouth 2 (two) times a day Multiple Vitamins-Minerals ([employer] HEALTH PO) Take by mouth Myrbetriq 50 MG 24 hr tablet TAKE 1 TABLET (50 MG) BY MOUTH ONCE DAILY DIRECTED. ranolazine (Ranexa) 500 MG 12 hr tablet Take 1 tablet by mouth in the morning and 1 tablet before bedtime. tadalafil (Cialis) 5 MG tablet Daily as needed Testosterone 1.62 % gel PLACE 2 PUMPS ON THE SKIN ONCE EVERY MORNING No current facility-administered medications on file prior to visit. Objective Last Recorded Vitals Vitals: 02/24/25 1325 BP: 131/62 Pulse: 62 ENT Physical Exam Constitutional Appearance: patient appears well-developed, well-nourished and well-groomed, Communication/Voice: communication appropriate for developmental age; vocal quality normal; Ear Ear Canals: right ear canal normal; left ear canal normal; Tympanic Membranes: right tympanic membrane normal; left tympanic membrane normal; Ear comments: [place] tymps normal Patient ID: Trae Pineda is a 74 y.o. male. Procedures After nasal decongestion, a diagnostic nasal endoscopy was performed bilaterally. The endoscope wasplaced into the nose and a thorough inspection of internal nose including the septum skull base lateral nasal wall structures was performed. There is no polypoisis sinus drainage. No MANDREL MAKER path Assessment/Plan Diagnoses and all orders for this visit: Mixed conductive and sensorineural hearing loss of right ear with restricted hearing of left ear ETD (Eustachian tube dysfunction), bilateral OME (otitis media with effusion), right No OME today. Change flonase to 2 sprays on RT BID. Poor surgical candidate due to heart and kidneydz. For now manage intermittent change in hearing with ZARAGOZA. No path in MANDREL MAKER evident documented in this encounterBarton County Memorial [id number] NoteOperative Report Diagnosis: m47.816, lumbar spondyloarthropathy Procedure: Bilateral diagnostic lumbar medial branch blocks under fluoroscopic guidance, targeting the L4/5 and L5/S1 facet joints Anesthesia: Local Complications: none After informed consent was obtained, the patient was brought to the procedure room and placed in the prone position. The back area is prepped and draped in usual sterile fashion. Using fluoroscopic guidance skin and subcutaneous tissue overlying needle trajectories to the target sites were anesthetized with 2% lidocaine. 22-gauge needles were advanced under fluoroscopic guidance to the appropriate anatomic landmarks. Needle tip position was confirmed using fluoroscopy in at least 2 views. Injection of small amount of contrast through each needle tip revealed appropriate spread without vascular take. Subsequently, 0.5 mL of 0.5% bupivacaine was injected at each needle tip. The needles were re moved. The patient was then transferred to the recovery room in stable condition. Follow-up: Should the patient have pain relief, the patient may be a candidate for radiofrequency lesioning. The patient agrees to continue currently prescribed/recommended therapies.[facility] HospitalComment on above: Result Comment: Electronically Signed By: John Cannon DO\.br\Date and Time Signed: 02/22/25 09:43 [id number] Evaluation + Plan noteExtracted from: Title:Bilateral lumbar medial branch blocks to target the L4/5 and L5/S1 facets Author:John Cannon DODate:02/22/25 Diagnosis: m47.816, lumbar s pondyloarthropathy Procedure: Bilateral diagnostic lumbar medial branch blocks under fluoroscopic guidance, targeting the L4/5 and L5/S1 facet joints Anesthesia: Local Complications: none After informed consent was obtained, the patient was brought to the procedure room and placed in the prone position. The back area is prepped and draped in usual sterile fashion. Using fluoroscopic guidance skin and subcutaneous tissue overlying needle trajectories to the target sites were anesthetized with 2% lidocaine. 22-gauge needles were advanced under fluoroscopic guidance to the appropriate anatomic landmarks. Needle tip position was confirmed using fluoroscopy in at least 2 views. Injection of small amount of contrast through each needle tip revealed appropriate spread without vascular take. Subsequently, 0.5 mL of 0.5% bupivacaine was injected at each needle tip. The needles were re moved. The patient was then transferred to the recovery room in stable condition. Follow-up: Should the patient have pain relief, the patient may be a candidate for radiofrequency lesioning. The patient agrees to continue currently prescribed/recommended therapies. Future Appointments Appointment Date:02/26/2025 01:45:00 PM Scheduled Provider:Margareth De La Cruz PA-C Location:.[facility] [place] Appointment Type:Pain Management - Follow Up (FT) [facility] 04-05-2025 Evaluation + Plan noteExtracted from:Title: Bilateral lumbar medial branch RFA to target L4/5 and L5/S1 facetsAuthor:John Cannon DODate:03/16/25 Diagnosis: M47.816, bilatera l lumbar spondyloarthropathy Procedure: Bilateral lumbar medial branches/posterior rami radiofrequency ablation to target the facet joints of L4/5 and L5/S1 Anesthesia: Local Complications: None After informed consent was obtained, the patient was brought to the procedure room and placed in the prone position. The back area is prepped and draped in usual sterile fashion. The patient was placed on monitors. Using fluoroscopic guidance skin and subcutaneous tissue overlying needle trajectories to the target sites were anesthetized with 2% lidocaine. 20-gauge radiofrequency needles were advanced under fluoroscopic guidance to the appropriate anatomic landmarks. Needle tip position was confirmed on both sides in both the AP and lateral views. Next, all levels on the right were stimulatedat 2Hz for motor stimulation at 2.0V with no lower extremity motor contractions. Next 1.0mL of 2.0%lidocaine was injected through each needle tip. Thereafter, radiofrequency lesioning was carried out at 80 degrees for 80 seconds twice. Next, all levels on the left were stimulated at 2Hz for motor stimulation at 2.0V with no lower extremity motor contractions. Next 1.0mL of 2.0% lidocaine was injected through each needle tip. Thereafter, radiofrequency lesioning was carried out at 80 degrees for 80 seconds twice. The needles were removed. The patient was then transferred to the recovery room in stable condition. Postprocedure lower extremity strength 5/5 bilaterally in hip flexors, quads, hamstrings, plantarflexion/dorsiflexion/FHL/EHL. Follow-up: Discharge instructions provided. The patient agrees to continue currently prescribed/recommended therapies. Future Appointments Appointment Date:04/06/2025 12:45:00 PM Scheduled Provider:John Cannon DO Location:.Pain [facility] Appointment Type:Pain Management - Follow Up (FT) [facility] 04-02-2025 NoteUT Cardiology - [facility] Subjective Trae Pineda is a 74 y.o. year old male patient being seen for a follow up 30 day event monitor. Chest heaviness and SOB on occasional. Has had some fast heart rate. Patient Active Problem List Diagnosis Type 2 diabetes mellitus without complication (CMS/HCC) Seizure (CMS/HCC) Chronic prostatitis Prostate cancer screening Kidney stone Hyperlipidemia Generalized ischemic myocardial dysfunction Generalized anxiety disorder [place]stone ARAGON (dyspnea on exertion) Disorder of lipid metabolism Depressive disorder Chronic obstructive lung disease (CMS/HCC) Chronic anxiety Chest pain Primary hypertension Coronary artery disease involving stillaguamish coronary artery of stillaguamish heart Coronary arteriosclerosis of stillaguamish coronary artery of transplanted heart Suprapubic discomfort [...] bladder emptying Urge urinary incontinence Orthostatic dizziness Encounter for screening for malignant neoplasm of prostate Arthritis, rheumatoid (CMS/HCC) Family History Problem Relation Name Age of Onset Heart failure Mother Prostate cancer Father Zak Pineda Coronary artery disease Brother Social History Tobacco Use Smoking status: Former Current packs/day: 0.00 Types: Cigarettes Quit date: 11/18/1982 Years since quittin.2 Passive exposure: Never Smokeless [...] Grade 2, moderate diastolic dysfunction (pseudonormalized LV (more content not included)...[facility]03-20-2025 Evaluation + Plan note Extracted from:Title:chronic painAuthor:John Cannon DO.Date:02/04/25 History of lumbar stenosis w ith neurogenic claudication as well as lumbar spondyloarthropathy and right foot pain. He has been acutely symptomatic of lumbar spondyloarthropathy and underwent a lumbar medial branch block to target the L4/5 and L5/S1 facet joints bilaterally on 01/27/2025 citing 99% relief for 2 to 4 hours. Unfortunately his pain was returned to the exact same nature and character as before axial nature localized to his lumbar spine worse with twisting turning and bending and rated as a 6/10 severity. He has no radiating pain. He does have pain in his right foot that is been persistent for several years and he would like a referral to orthopedics in [place] for further evaluation of this. For his back he was very pleased with the results of his first test and would like to proceed with the second 1 LEONOR Score: 40% PHQ-2: 0 Patient denies any symptoms of progressively worsening upper/lower extremity weakness, progressively worsening gait abnormality, new onset bowel/bladder incontinence/ urinary retention, or saddle anesthesia. No new or worsening symptoms of fever, chills, night sweats. 14 Point Review of systems negative unless otherwise noted. General: No acute distress. Patient appears well-nourished. HEENT: Head is normocephalic and external ears are normal in appearance. Cardiovascular: No signs of poor perfusion and no peripheral edema Pulmonary: Nonlabored breathing, symmetric chest movement. GI: Abdomen nondistended Integumentary: No lesions Neurologic: Alert, oriented x3. 5/5 strength grossly in the bilateral upper extremities. Sensation intact to light touch in the bilateral upper extremities. 5/5 strength grossly in the bilateral lower extremities. Sensation intact to light touch in the bilateral lower extremities. MSK/Special Testing: Negative Pranav sign bilaterally, tenderness palpation lumbar paraspinal musculature. History, physical examination, and personal review of pertinent imaging results indicate a diagnosis of: -Lumbar spondyloarthropathy -Lumbar stenosis with neurogenic location -Right foot pain Plan: -We will schedule him for second lumbar medial branch blocks target L4/5 and L5/S1 facet joints under fluoroscopic guidance anticipation of radiofrequency ablation for effective -Will refer him to orthopedics up in [place] where he lives as he would like to see a foot and ankle specialist to better delineate what is going on with his foot and see if anything can be done as he has had persistent pain after his bunion surgery -Follow-up as soon as able post medial branch block Patient was counseled on the above diagnosis and treatment, all questions were answered and patientagrees to adhere to the plan above. Risk and benefits of appropriate procedures and medications were reviewed as well with patient, who voiced understanding and agreeance. Patient was counseled on appropriate use of opioids if prescribed or renewed today and naloxone was offered to patient if opioids were prescribed or maintained at this visit. PHQ-2 scoring reviewed with patient and discussed seeking treatment for depression or mood disorder as appropriate. Patient was counseled on smoking cessation and/or continuing to abstain from nicotine/tobacco products as appropriate based on history; as smoking/nicotine can contribute to increased pain overall and decreased wound healing. Patient counseled on maintaining a healthy BMI as part of the total treatment of their pain and to reduce stress/strain on joints. Patient invited to return or call with any questions or concerns that arise.[facility] 03-20-2025 NoteConsultation Note History of lumbar stenosis with neurogenic claudication as well as lumbar spondyloarthropathy and right foot pain. He has been acutely symptomatic of lumbar spondyloarthropathy and underwent a lumbarmedial branch block to target the L4/5 and L5/S1 facet joints bilaterally on 01/27/2025 citing 99% relief for 2 to 4 hours. Unfortunately his pain was returned to the exact same nature and character as before axial nature localized to his lumbar spine worse with twisting turning and bending and rated as a 6/10 severity. He has no radiating pain. He does have pain in his right foot that is been persistent for several years and he would like a referral to orthopedics in [place] for further evaluation of this. For his back he was very pleased with the results of his first test and would like to proceed with the second 1 LEONOR Score: 40% PHQ-2: 0 Patient denies any symptoms of progressively worsening upper/lower extremity weakness, progressively worsening gait abnormality, new onset bowel/bladder incontinence/ urinary retention, or saddle anesthesia. No new or worsening symptoms of fever, chills, night sweats. 14 Point Review of systems negative unless otherwise noted. General: No acute distress. Patient appears well-nourished. HEENT: Head is normocephalic and external ears are normal in appearance. Cardiovascular: No signs of poor perfusion and no peripheral edema Pulmonary: Nonlabored breathing, symmetric chest movement. GI: Abdomen nondistended Integumentary: No lesions Neurologic: Alert, oriented x3. 5/5 strength grossly in the bilateral upper extremities. Sensation intact to light touch in the bilateral upper extremities. 5/5 strength grossly in the bilateral lower extremities. Sensation intact to light touch in the bilateral lower extremities. MSK/Special Testing: Negative Pranav sign bilaterally, tenderness palpation lumbar paraspinal musculature. History, physical examination, and personal review of pertinent imaging results indicate a diagnosis of: -Lumbar spondyloarthropathy -Lumbar stenosis with neurogenic location -Right foot pain Plan: -We will schedule him for second lumbar medial branch blocks target L4/5 and L5/S1 facet joints under fluoroscopic guidance anticipation of radiofrequency ablation for effective -Will refer him to orthopedics up in [place] where he lives as he would like to see a foot and ankle specialist to better delineate what is going on with his foot and see if anything can be done as he has had persistent pain after his bunion surgery -Follow-up as soon as able post medial branch block Patient was counseled on the above diagnosis and treatment, all questions were answered and patientagrees to adhere to the plan above. Risk and benefits of appropriate procedures and medications were reviewed as well with patient, who voiced understanding and agreeance. Patient was counseled on appropriate use of opioids if prescribed or renewed today and naloxone was offered to patient if opioids were prescribed or maintained at this visit. PHQ-2 scoring reviewed with patient and discussed seeking treatment for depression or mood disorder as appropriate. Patient was counseled on smoking cessation and/or continuing to abstain from nicotine/tobacco products as appropriate based on history; as smoking/nicotine can contribute to increased pain overall and decreased wound healing. Patient counseled on maintaining a healthy BMI as part of the total treatment of their pain and to reduce stress/strain on joints. Patient invited to return or call with any questions or concerns that arise.[facility] HospitalComment on above:Result Comment: Electronically Signed By: Davis MENDOZA, John Andres.br\Date and Time Signed: 02/04/25 12:42 [id number] NoteU[facility] Clinic H&P Dr. Diony Ariza MD Patient: Trae Pineda Date of : 1950 CHIEF COMPLAINT: Low testosterone, BPH HISTORY OF PRESENT ILLNESS: 02/02/2025 ITonja (Scribe) documented on behalf of Dr. Naina Ariza. Mr. Pineda is present for a follow [...] and Cialis without any complication or concern. ED - fails to have erection at times and needs to know options. Myrbetriq helped with urgency and frequency Prostate cancer screening FH of prostate cancer: father PSA Trend 0.81 (10/26/24) 2.38 (2024) 2.2 (09/2023) 2.41 (08/2023) 2.1 (05/2023) 2.0 (02/2023) 1.4 (03/2022) Urinary urgency Better with Myrbetriq. Patient states that when he has to go, he can now hold it. He reports that sometimes he is unable to make it to the bathroom History of terminal dribbling to the point that he has to change his clothes Improved urgency with frequency AUA symptom score is 15 [id number] is 4 UDS - delayed sensation Incomplete bladder emptying After urinating, patient reports that he often feels as if he is not emptying completely. High pressure low flow void Suggestive of outlet obstruction Incomplete voiding. Hypogonadism Testosterone levels 498 on 01/19/25 263 on 10/26/24 518 on 03/04/24 444 [...] like he is incompletely emptying, -He notes (more content not included)...[facility] 02-02-2025 Note02/02/2025 Tonja Fu (Scribe) documented on behalf of Dr. Naina Ariza. Mr. Pineda is present for a follow [...] and Cialis without any complication or concern. ED - fails to have erection at times and needs to know options. Myrbetriq helped with urgency and frequency Prostate cancer screening FH of prostate cancer: father PSA Trend 0.81 (10/26/24) 2.38 (2024) 2.2 (09/2023) 2.41 (08/2023) 2.1 (05/2023) 2.0 (02/2023) 1.4 (03/2022) Urinary urgency Better with Myrbetriq. Patient states that when he has to go, he can now hold it. He reports that sometimes he is unable to make it to the bathroom History of terminal dribbling to the point that he has to change his clothes Improved urgency with frequency AUA symptom score is 15 [id number] is 4 UDS - delayed sensation Incomplete bladder emptying After urinating, patient reports that he often feels as if he is not emptying completely. High pressure low flow void Suggestive of outlet obstruction Incomplete voiding. Hypogonadism Testosterone levels 498 on 01/19/25 263 on 10/26/24 518 on 03/04/24 444 [...] 4- EMG showed Dysfunctional firing during void Trae Pineda is a 74 y.o. male present for a follow up appointment regarding his hypogonadism and low testosterone level. Since his previous visit, Mr. Pineda states he is highly satisfied with the progress he has made. Denies any urinary urgency or incontinence, dribbling or frequency. Mr. Pineda notes that he is having mild ED and is open to having his Viagra dose increased for improvement. Dr. Ariza informed Mr. Pineda that his recent ultrasound shows improvement of how his bladder is functioning and the medication seem to be taking effect as well. Dr. Ariza is agreeable with Mr. Pineda to increase his viagra dose. He is advised to take the medication at least 1 hour before sexual intercourse and 2 hours after a big meal. If he has a flare up of his cystitis cystica, he is instructed to call the office to receive more medications for treatment. Today, he will have a flow PVR test performed to ensure he is emptying completely and a follow up can be scheduled in 6 months with CARLOS. I personally saw and examined Trae Pineda [...] service and the documentation is accurate and complete.[facility]03-17-2025 NoteOperative Report Diagnosis: m47.816, lumbar spondyloarthropathy Procedure: Bilateral diagnostic lumbar medial branch blocks under fluoroscopic guidance, targeting the L4/5 and L5/S1 facet joints Anesthesia: Local Complications: none After informed consent was obtained, the patient was brought to the procedure room and placed in the prone position. The back area is prepped and draped in usual sterile fashion. Using fluoroscopic guidance skin and subcutaneous tissue overlying needle trajectories to the target sites were anesthetized with 2% lidocaine. 22-gauge needles were advanced under fluoroscopic guidance to the appropriate anatomic landmarks. Needle tip position was confirmed using fluoroscopy in at least 2 views. Injection of small amount of contrast through each needle tip revealed appropriate spread without vascular take. Subsequently, 0.5 mL of 0.5% bupivacaine was injected at each needle tip. The needles were re moved. The patient was then transferred to the recovery room in stable condition. Follow-up: Should the patient have pain relief, the patient may be a candidate for radiofrequency lesioning. The patient agrees to continue currently prescribed/recommended therapies.[facility] HospitalComment on above: Result Comment: Electronically Signed By: John Cannon DO\.br\Date and Time Signed: 02/01/25 14:25 [id number] Evaluation + Plan noteExtracted from: Title:Bilateral lumbar medial branch blocks to target the L4/5 and L5/S1 facets #1Author:John Cannon DODate:02/01/25 Diagnosis: m47.816, lumbar s pondyloarthropathy Procedure: Bilateral diagnostic lumbar medial branch blocks under fluoroscopic guidance, targeting the L4/5 and L5/S1 facet joints Anesthesia: Local Complications: none After informed consent was obtained, the patient was brought to the procedure room and placed in the prone position. The back area is prepped and draped in usual sterile fashion. Using fluoroscopic guidance skin and subcutaneous tissue overlying needle trajectories to the target sites were anesthetized with 2% lidocaine. 22-gauge needles were advanced under fluoroscopic guidance to the appropriate anatomic landmarks. Needle tip position was confirmed using fluoroscopy in at least 2 views. Injection of small amount of contrast through each needle tip revealed appropriate spread without vascular take. Subsequently, 0.5 mL of 0.5% bupivacaine was injected at each needle tip. The needles were re moved. The patient was then transferred to the recovery room in stable condition. Follow-up: Should the patient have pain relief, the patient may be a candidate for radiofrequency lesioning. The patient agrees to continue currently prescribed/recommended therapies. Future Appointments Appointment Date:02/04/2025 11:30:00 AM Scheduled Provider:John Cannon DO Location:.[facility] Appointment Type:Pain Management - Follow Up (FT) [facility] 03-05-2025 History of Present illness Narrative* Joseph Nunez MD - 01/20/2025 1:10 PM EST Subjective Patient ID: Trae Pineda is a 74 y.o. male who presents for Hearing Loss (Audio 01/19/25) Pt reports a long h/o R>L hearing loss. Audio shows severe RT downsloping mixed HL and left downsloping SNHL. There is a 5-10dB asymmetry with symmetric nerve lines. Right tym flat and left tymp negative. Pt reports tx for OME many years ago. Pt takes ASA daily. Review of Systems All other systems reviewed and are negative. No family history on file. Active Ambulatory Problems Diagnosis Date Noted Anemia 06/04/2023 Coronary arteriosclerosis of stillaguamish coronary artery of transplanted heart ([facility]) 07/21/2014 Arthritis, rheumatoid ([facility]) 01/18/2025 Benign prostatic hyperplasia with lower urinary tract symptoms 08/14/2022 Body mass index (BMI) 32.0-32.9, adult 03/12/2024 Carotid bruit 03/12/2024 Carpal tunnel syndrome 06/04/2023 Acute angina ([facility]) 01/18/2025 Chronic anxiety 07/25/2022 Chronic bronchitis, mucopurulent ([facility]) 03/12/2024 Chronic obstructive lung disease ([facility]) 01/27/2013 Chronic kidney disease 06/04/2023 CPAP (continuous positive airway pressure) dependence 06/04/2023 Cystitis cystica 03/17/2024 Depressive disorder ([facility]) 01/27/2013 Disorder of lipid metabolism ([facility]) 08/31/2014 ARAGON (dyspnea on exertion) 02/24/2013 Enlarged prostate 06/04/2023 Erectile dysfunction 08/14/2022 Gallstone 01/27/2013 Generalized anxiety disorder ([facility]) 01/27/2013 Generalized ischemic myocardial dysfunction ([facility]) 07/25/2022 GERD (gastroesophageal reflux disease) 03/12/2024 History of heart attack ([facility]) 01/18/2025 History of open heart surgery 06/04/2023 High cholesterol ([facility]) 01/18/2025 Hypogonadism in male 08/14/2022 Incomplete bladder emptying 05/14/2024 Irregular heart rhythm 06/04/2023 Kidney stone 01/27/2013 Lumbar spondylosis 03/12/2024 Lung nodule 08/14/2022 Nicotine dependence, cigarettes, in remission 03/12/2024 Orthostatic dizziness 07/30/2024 Other obesity due to excess calories 03/12/2024 Benign essential hypertension ([facility]) 07/30/2014 Medicare annual wellness visit, subsequent 01/18/2025 Seizure ([facility]) 01/27/2013 TALA (obstructive sleep apnea) 01/18/2025 Spinal stenosis, lumbar region with neurogenic claudication 01/20/2024 Suprapubic discomfort 08/14/2022 Diabetes ([facility]) 01/18/2025 Type 2 diabetes mellitus with diabetic polyneuropathy ([facility]) 03/12/2024 Urge urinary incontinence 05/14/2024 Resolved Ambulatory Problems Diagnosis Date Noted No Resolved Ambulatory Problems Past Medical History: Diagnosis Date HL (hearing loss) Past Surgical History: Procedure Laterality Date ANKLE SURGERY Left APPENDECTOMY CARDIAC SURGERY bypass CARPAL TUNNEL RELEASE Right CERVICAL SPINE SURGERY [facility] CORONARY ANGIOPLASTY WITH STENT PLACEMENT 5 stents PROSTATE SURGERY Allergies Allergen Reactions Pregabalin Swelling Statins Other and Unknown Other Reaction(s): muscle ache Hydralazine Other and Palpitations Other reaction(s): chest pain Current Outpatient Medications on File Prior to Visit Medication Sig Dispense Refill acetaminophen (Tylenol Extra Strength) 500 MG tablet 500 mg every 6 (six) hours alfuzosin ER (Uroxatral) 10 MG 24 hr tablet TAKE 1 TABLET BY MOUTH IN THE MORNING, DO NOT CRUSH, CHEW, OR SPLIT Alpha-Lipoic Acid 200 MG capsule Twice daily amLODIPine (Norvasc) 5 MG tablet Take 1 tablet by mouth Daily ascorbic acid (Vitamin C) 500 MG tablet Take 1 tablet by mouth in the morning. aspirin 81 MG EC tablet Take 1 tablet by mouth Daily Calcium Carb-Cholecalciferol (CALCIUM 500 +D PO) Take by mouth evolocumab (Repatha) 140 MG/ML injection INJECT 1 ML EVERY 2 WEEKS BY SUBCUTANEOUS ROUTE FOR 90 DAYS. ezetimibe (Zetia) 10 MG tablet Take 1 tablet by mouth Daily insulin NPH, Isophane, (HumuLIN N,NovoLIN N) 100 UNIT/ML injection Inject under the skin 2 (two) times a day before meals lisinopril 10 MG tablet Take 1 tablet by mouth Daily Loratadine 10 MG capsule Take 10 mg by mouth Multiple Vitamins-Minerals (Three Melons HEALTH PO) Take by mouth Myrbetriq 50 MG 24 hr tablet TAKE 1 TABLET (50 MG) BY MOUTH ONCE DAILY DIRECTED. ranolazine (Ranexa) 500 MG 12 hr tablet Take 1 tablet by mouth in the morning and 1 tablet before bedtime. tadalafil (Cialis) 5 MG tablet Daily as needed Testosterone 1.62 % gel PLACE 2 PUMPS ON THE SKIN ONCE EVERY MORNING [DISCONTINUED] pregabalin (Lyrica) 25 MG capsule TAKE 1 - 2 CAPSULES BY MOUTH TWICE A DAY No current facility-administered medications on file prior to visit. Objective Last Recorded Vitals Vitals: 01/20/25 1305 BP: 120/69 Pulse: 67 ENT Physical Exam Constitutional Appearance: patient appears well-developed and well-nourished, Head and Face Appearance: head appears normal and face appears atraumatic; Ear Ear comments: [place] ears normal Nose External Nose: nares patent bilaterally; external nose normal; Internal Nose: nasal mucosa normal; Oral Cavity/Oropharynx Lips: normal; Teeth: normal; Gums: gingiva normal; Tongue: normal; Oral mucosa: normal; Hard palate: normal; Neck Neck: neck normal; neck palpation normal; Thyroid: thyroid normal; Respiratory Inspection: breathing unlabored; normal breathing rate; Auscultation: breath sounds are clear; Cardiovascular Inspection: extremities are warm and well perfused; no peripheral edema present; Auscultation: regular rate and rhythm; Assessment/Plan Diagnoses and all orders for this visit: Mixed conductive and sensorineural hearing loss of right ear with restricted hearing of left ear Sensorineural hearing loss (SNHL) of right ear with unrestricted hearing of left ear ETD (Eustachian tube dysfunction), bilateral Pt will clearly benefit from ZARAGOZA, but he has active ETD. Tx with flonase and F/U one mo. Nasal endo if no improvement. documented in this encounterBarton County [facility] [id number] History of Present illness Narrative* Julieth Clark, AUD - 01/19/2025 1:00 PM EST History: Patient was referred for an audiological evaluation, reporting decreased hearing, worse in the right ear. Pt stated he was treated for fluid in the ears this past Fall/Winter 2023. Patient reported occasional tinnitus, He denies symptoms of ear pain, or vertigo. 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 Otoscopic Exam: Revealed ear canals were clear from excessive cerumen, bilaterally. Pure Tone Audiometry Audio indicated a mild to severe mixed hearing loss in the left ear and a mild to profound mixed hearing loss in the right ear. Speech Audiometry Right SRT = 45 dB and word discrimination score at 75 dBHL = 92% Left SRT = 35 dB and word discrimination score at 65 dBHL = 96% Tympanometry Type B (flat) tympanogram recorded in the right ear and Type C (negative pressure) tympanogram recorded in the left ear Impressions: Dr. Nunez 01-20-2025 documented in this encounterBarton County Memorial [id number] Evaluation + Plan note Extracted from:Title:Pain Managment Follow upAuthor:Margareth De La Cruz PA-CDate: 01/12/25 Impression and Plan Patient is a 74-year-old [...] he gets significant short-term relief he may ronal future candidate for RFA. Patient will follow-up 1 week after the injection for reevaluation. Call the clinic sooner if necessary. LEONOR score: 40%.[facility] [id number] NoteConsultation Note Patient: TRAE PINDEA Age: 74 years Sex: Male : 1950 [...] History of heart attack / SNOMED CT 4224433960 / Confirmed Acute angina / SNOMED CT 646649713 / Confirmed Irregular heart beat / SNOMED CT 871312426 / Confirmed HTN (hypertension) / SNOMED CT 1412341836 / Confirmed High cholesterol / SNOMED CT 08671622 / Confirmed H/O heart bypass surgery / SNOMED CT 211552514 / Confirmed Apnea, sleep / SNOMED CT 729835304 / Confirmed CPAP (continuous positive airway pressure) dependence / SNOMED CT 6731021618 / Confirmed Enlarged prostate / SNOMED CT 315338068 / Confirmed Chronic kidney disease (CKD) / SNOMED CT 4259711575 / Confirmed Diabetes / SNOMED CT 757162891 / Confirmed Carpal tunnel syndrome / SNOMED CT 74883004 / Confirmed Anemia / SNOMED CT 069659445 / Confirmed Arthritis, rheumatoid / SNOMED CT 404309329 / Confirmed Obesity / ICD-9-CM 278.00 / Possible Obesity / SNOMED CT [id number] / Possible Objective Vital Signs 01/12/2025 10:31 [...] with bilateral facet loading Integumentary: Warm, Dry, [place]. Small area of eschar improved from before. [...] views. 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 Normal right v (more content not included)...[facility] 12-15-2024 Evaluation + Plan noteExtracted from:Title:Pain Managment Follow up Author:Margareth De La Cruz PA-CDate:12/15/24 Impression and Plan Patient is a 74-year-old [...] AM Scheduled Provider:Margareth De La Cruz PA-C Location:[place].[facility] Appointment Type:Pain Management - Follow Up (FT) [facility] 01-28-2025 NoteConsultation Note Patient: TRAE PINEDA [...] Spasm, # 30 tab(s), Refills(s) 0, Pharmacy: [facility]/pharmacy #[id number], 183, cm, 02/14/24 13:46:00 [...] History of heart attack / SNOMED CT 3141777027 / Confirmed Acute angina / SNOMED CT 023476750 / Confirmed Irregular heart beat / SNOMED CT 085830440 / Confirmed HTN (hypertension) / SNOMED CT 9018271922 / Confirmed High cholesterol / SNOMED CT 73680831 / Confirmed H/O heart bypass surgery / SNOMED CT 179276063 / Confirmed Apnea, sleep / SNOMED CT 746201699 / Confirmed CPAP (continuous positive airway pressure) dependence / SNOMED CT 8402327334 / Confirmed Enlarged prostate / SNOMED CT 506251146 / Confirmed Chronic kidney disease (CKD) / SNOMED CT 4979810769 / Confirmed Diabetes / SNOMED CT 304340718 / Confirmed Carpal tunnel syndrome / SNOMED CT 81666855 / Confirmed Anemia / SNOMED CT 082389985 / Confirmed Arthritis, rheumatoid / SNOMED CT 712842710 / Confirmed Obesity / ICD-9-CM 278.00 / Possible Obesity / SNOMED CT [id number] / Possible Objective Vital Signs 12/15/2024 10:15 EST Peripheral Pulse Rate 67 bpm Respiratory Rate 14 br/min Systolic Blood Pressure 130 mmHg Diastolic Blood Pressure 61 mmHg Mean Arterial Pressure, Cuff 84 mmHg General: Alert and oriented, No acute distress. Eye: Normal conjunctiva. HENT: Normocephalic, Normal hearing. Cardiovascular: No edema. Musculoskeletal Normal range of motion. Normal strength. 5/5 strength Integumentary: Warm, Dry, [place]. Small area of eschar Some glue residue [...] he wonders about pos (more content not included)...[facility] Comment on above:Result Comment: Electronically Signed By: Margareth De La Cruz PA-C\.br\Date and Time Signed: 12/15/24 10:41 [id number] Evaluation + Plan noteExtracted from:Title:ANES Post-operative Note - MACAuthor:Gerber Catalan Jr., DO GDate:12/07/24 Plan Transfer/Discharge: Transfer/Discharge Discharge when meets criteria. Extracted from:Title:Minimally invasive L4/5 lumbar decompressionAuthor:John Cannon DODate:12/07/24 Diagnosis: m48.[address] enosis with neurogenic [...] patient. Bony landmarks were then identified using f luoroscopy. Local anesthetic of 2.0% lidocaine with epinephrine was injected subcutaneously to anesthetize the needle bah to the appropriate anatomic landmarks bilaterally. Next, the cannula was then advanced in AP and contralateral views to the appropriate anatomic landmarks on the left side firs t. Once the working channel was in place, [...] then advanced into the appropriate space using icov-fo-diclvkrlks and confirmed by fluoroscopy and contrast spread. [...] over the incision with a Tegaderm dressing. Thepatient was then brought to the postoperative area in stable condition without acute issue. Follow-Up: We will plan to follow-up with the patient post procedurally, all instructions were reviewed with the patient before leaving the discharge area. Patient voiced understanding of postprocedural plan and will call with any questions or issues periprocedurally. Extracted from:Title:ANES Pre-operative Note - Pain MgtAuthor:Gerber Catalan Jr., DO GDate:12/07/24 Plan [place] [employer]esthesi[employer] (ASA) physical status classification: Class III. Anesthetic Preoperative Plan: Anesthesia Monitored anethesia care. Future Appointments Appointment Date:12/15/2024 10:15:00 AM Scheduled Provider:Margareth De La Cruz PA-C Location:.[facility] Appointment Type:Pain Management - Follow Up (FT) [facility] 01-20-2025 NoteProgress Note-Physician Patient: TRAE PINEDA Age: 74 years Sex: Male : 1950 Associated Diagnoses: None Author: Gerber Catalan Jr., DO Postoperative Information Postoperative disposition: Postoperative disposition: To PACU. Optimetrix number: Optimetrix number [id number]. Anesthetic utilized: Monitored anesthesia care. Physical Examination Vital signs stable. Pain Assessment: Controlled. General: Awake, Alert, Appropriate. Respiratory: Adequate air exchange, Equal bilateral chest wall expansion, Non-labored. Cardiovascular: Stable, Normal peripheral perfusion. Neurological: Normal sensory function. Assessment Anesthetic outcome No anesthetic complications noted. Review / Management Condition: Stable. Plan Transfer/Discharge: Transfer/Discharge Discharge when meets criteria.[facility] HospitalComment on above:Result Comment: Electronically Signed By: Gerber Catalan Jr., DO\.br\Date and Time Signed: 12/07/24 12:41 [id number] NoteProgress Note-Physician Patient: TRAE PINEDA Age: 74 [...] BID, # 120 cap(s), Refills(s) 0, Pharmacy: [facility]/pharmacy #[id number], 183, cm, 10/13/24 14:06:00 EST, Height/Length Dosing, 104.3, kg, 10/13/24 14:06:00 EST, Weight Dosing baclofen 5 mg oral tablet: 5 mg = 1 tab(s), Oral, TID, PRN Spasm, # 30 tab(s), Refills(s) 0, Pharmacy: [facility]/pharmacy #[id number], 183, cm, 02/14/24 13:46:00 EDT, Height/Length Dosing, [...] All Problems Acute angina / SNOMED CT 497228089 / Confirmed Anemia / SNOMED CT 302895172 / Confirmed Apnea, sleep / SNOMED CT 377499171 / Confirmed Arthritis, rheumatoid / SNOMED CT 874673279 / Confirmed Carpal tunnel syndrome / SNOMED CT 97848140 / Confirmed Chronic kidney disease (CKD) / SNOMED CT 5258211311 / Confirmed CPAP (continuous positive airway pressure) dependence / SNOMED CT 5497995886 / Confirmed Diabetes / SNOMED CT 880843613 / Confirmed Enlarged prostate / SNOMED CT 474400918 / Confirmed H/O heart bypass surgery / SNOMED CT 844624810 / Confirmed High cholesterol / SNOMED CT 21645276 / Confirmed History of heart attack / SNOMED CT 5875754313 / Confirmed HTN (hypertension) / SNOMED CT 3443765230 / Confirmed Irregular heart beat / SNOMED CT 145787659 / Confirmed Obesity / ICD-9-CM 278.00 / Possible Obesity / SNOMED CT [id number] / Possible Histories Past Medical History: No active or resolved past medical history items have been selected or recorded. Procedure history: L5/S1 lumbar interlaminar epidural steroid injection ([id number]) on 01/15/2024 at 73 Years. Comments: 02/14/2024 13:35 EDT - Lupis Manzo 0% relief Transforaminal Epidural Steroid Injection ([id number]) on 08/06/2023 at 73 Years. Comments: 09/06/2023 11:11 JUAN CARLOS Griggs RN, Heather chun L5/S1 TFESI- 90% relief x 2 weeks Injection of nerve root of lumbar spine using fluoroscopic guidance ([id number]) on 12/12/2022 at 72Years. Comments: 01/11/2023 13:49 VIGNESH Lujan RN, Mago L5-S1-90% relief Bilateral L5 TFESI ([id number]) on 11/22/2021 at 71 Years. Comments: 12/29/2021 12:59 VIGNESH Hartley RN, Lula Ganga Bilateral L5 TFESI-90-95% relief Transforaminal Epidural steroid injection-B/L L5 ([id number]) on 07/01/2020 at 70 Years. Comm (more content not included)...[facility] HospitalComment on above: Result Comment: Electronically Signed By: Gerber Catalan Jr., DO\.br\Date and Time Signed: 12/07/24 07:16 [id number] NoteUrology Documentation Note Trae Pineda is a [...] to update patient regarding the above. Morenita Nash, ANGIE Urology/Renal Transplant [facility] 11-12-2024 Chief complaint+Reason for visit Narrative* Chief Complaint Admit Date 3 month f/u November 12, 2024 9:58am Referral Order November 20, 2024 3: 51pm 3 month f/u February 10, 2025 1:1 5pm Reason for Visit Admit Date Anemia November 12, 2024 9:58am ASHD (arteriosclerotic heart disease) De cember 2023 9:58am Chronic bronchitis, mucopurulent Decembe r 2023 9:58am Chronic kidney disease November 12 9:58am GERD (gastroesophageal reflux disease) D ecember 2023 9:58am Hypercholesterolemia November 12, 2024 9:58am Hypertension November 12, 2024 9:58am TALA (obstructive sleep apnea) October 192023 9:58am Pulmonary nodule November 12, 2024 9:58am Type 2 diabetes mellitus with diabetic p olyneuropathy November 12, 2024 9:58am Type 2 diabetes mellitus with hyperglyce radames November 12, 2024 9:58am Anemia February 10, 2025 1:1 5pm ASHD (arteriosclerotic heart disease) [facility] 2024 1:15pm Chronic bronchitis, mucopurulent January 172024 1:15pm Chronic kidney disease February 10, 2025 1:15pm GERD (gastroesophageal reflux disease) [facility] 2024 1:15pm Hypercholesterolemia February 10, 2025 1: 15pm Hypertension February 10, 2025 1:1 5pm NSVT (nonsustained ventricular tachycard ia) February 10, 2025 1:15pm TALA (obstructive sleep apnea) January 1:15pm Pulmonary nodule February 10, 2025 1:1 5pm Type 2 diabetes mellitus with diabetic p olyneuropathy February 10, 2025 1:15pm Type 2 diabetes mellitus with hyperglyce radames February 10, 2025 1:15pm [facility] Work Phone: 1(579) 719-740312-26-2024 Evaluation note* Diagnosis Onset Date Resolution Status Admit Date Anemia acuteDecemb2023 9:58amASHD (arteriosclerotic heart disease)acute November 12, 2024 9:58amChronic bronchitis, mucopurulentacuteDecember 2023 9:58amChronic kidney diseaseacuteDecember 2023 9:58amGERD (gastroesophageal reflux disease)acuteDecember 2023 9:58am HypercholesterolemiaacuteDecember 2023 9:58amHypertensionacuteDecember 2023 9:58amOSA (obstructive sleep apnea)acuteDecember 2023 9:58am Pulmonary noduleacuteDecember 2023 9:58amType 2 diabetes mellitus with diabetic polyneuropathyacuteDecember 2023 9:58amType 2 diabetes mellitus with hyperglycemiaacuteDecember 2023 9:58amAnemiaacuteMarch 2024 1:15pmASHD (arteriosclerotic heart disease)acuteMarch 2024 1:15pmChronic bronchitis, mucopurulentacuteMarch 2024 1:15pmChronic kidney diseaseacute February 10, 2025 1:15pmGERD (gastroesophageal reflux disease)[facility] 1:15pmHypercholesterolemiaacuteMar 2024 1:15pmHypertensionacute February 10, 2025 1:15pmNSVT (nonsustained ventricular tachycardia)[facility] 1:15pmOSA (obstructive sleep apnea)[facility] 1:15pm Pulmonary noduleacute[facility] 2024 1:15pmType 2 diabetes mellitus with diabetic polyneuropathyacuteMart[facility] 2024 1:15pmType 2 diabetes mellitus with hyperglycemiaacuteMart[facility] 2024 1:15pm [facility] Work Phone: 1(214) 796-644412-17-2024 NoteUrology Clinic H&P Dr. Diony Ariza MD [...] with frequency AUA symptom score is 15 jwdqjra-ff-ahcf is 4 UDS - delayed sensation Incomplete [...] well with his urination (more content not included)...[facility]11-26-2024 NoteConsultation Note Patient: TRAE PINEDA Age: 74 [...] starting to return. He rates it a 1???10. He has a history of laminectomy in the lumbar spine. He is here today to discuss options to try to get more long-term relief as he is happy with how much relief this gave him but he is unhappy that it did not last senior living. 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 Some relief but not enough. He did therapyin the past that has not helped. He has done epidural steroid injections in the past. Some helped and some did not. He has taken vrge-ipy-xptxbae medications again with some improvement not enough. Health Status Allergies: Allergic Reactions (Selected) Severity Not Documented HydrALAZINE- Palpatations. Statins- Muscle ache., Allergies (2) Active Severity Reaction statins muscle ache hydrALAZINE palpatations Current medications: (Selected) Prescriptions Prescribed baclofen 5 mg oral tablet: 5 mg = 1 tab(s), Oral, TID, PRN Spasm, # 30 tab(s), Refills(s) 0, Pharmacy: [facility]/pharmacy #[id number], 183, cm, 02/14/24 13:46:00 EDT, Height/Length Dosing, [...] History of heart attack / SNOMED CT 1824516133 / Confirmed Acute angina / SNOMED CT 545572168 / Confirmed Irregular heart beat / SNOMED CT 428730887 / Confirmed HTN (hypertension) / SNOMED CT 8399565025 / Confirmed High cholesterol / SNOMED CT 19934672 / Confirmed H/O heart bypass surgery / SNOMED CT 767904231 / Confirmed Apnea, sleep / SNOMED CT 614759051 / Confirmed CPAP (continuous positive airway pressure) dependence / SNOMED CT 0646297325 / Confirmed Enlarged prostate / SNOMED CT 813295965 / Confirmed Chronic kidney disease (CKD) / SNOMED CT 1329782275 / Confirmed Diabetes / SNOMED CT 043369693 / Confirmed Carpal tunnel syndrome / SNOMED CT 99693718 / Confirmed Anemia / SNOMED CT 863780018 / Confirmed Arthritis, rheumatoid / SNOMED CT 708965050 / Confirmed Obesity / ICD-9-CM 278.00 / Possible Obesity / SNOMED CT [id number] / Possible Objective Vital Signs 10/13/2024 13:51 [...] right straight leg raise Integumentary: Warm, Dry, [place]. Neurologic: Alert, Oriented. Psychiatric: Cooperative, Appropriate mood [...] Unfortunate, some of his (more content not included)...[facility] HospitalComment on above:Result Comment: Electronically Signed By: Margareth De La Cruz PA-C\.br\Date and Time Signed: 10/13/24 14:19 [id number] Evaluation + Plan noteExtracted from:Title:Pain Managment Follow upAuthor:Margareth De La Cruz PA-CDate:10/13/24 Impression and Plan Patient is a 74-year-old [...] give him the information about the mild procedureand we will call him next week with a formal plan of care. In the meantime, he is going to continueon the Lyrica and take 1 in the morning and 3 at night. OARRS was reviewed P does not require refill. He will call when he does. We will call him as well mention. LEONOR score: 38%.[facility] 10-22-2024 Evaluation + Plan noteExtracted from:Title: Bilateral L4/5 transforaminal epidural steroid injectionsAuthor:Jhon Cannon DODate:09/08/24 Diagnosis: m54.17, lumbosacr al radiculopathy Procedure: Bilateral [...] PM Scheduled Provider:Margareth De La Cruz PA-C Location:[facility] Appointment Type:Pain Management - Follow Up (FT) [facility] 10-22-2024 NoteOperative Report Diagnosis: m54.17, lumbosacral [...] and agrees to comply to currently prescribed/recommended therapies.[facility] Comment on above:Result Comment: Electronically Signed By: John Cannon DO.br\Date and Time Signed: 09/08/24 11:45 [id number] NoteUT Cardiology - [facility] Subjective Trae Pineda is a 74 [...] pain Primary hypertension Coronary artery disease involving stillaguamish coronary artery of stillaguamish heart Coronary arteriosclerosis of stillaguamish coronary artery of transplanted heart Suprapubic discomfort [...] LV filling pattern). Nor (more content not included)...[facility]09-16-2024 NoteConsultation Note Patient: TRAE PINEDA Age: 74 [...] he was driving back and forth to [place] for his . She ended up passing [...] states that he is now trying to [place] to do things to help take [...] and some did not. He has taken kwct-psb-ncjjftb medications again with some improvement not enough. [...] BID, # 120 tab(s), Refills(s) 0, Pharmacy: [facility]/pharmacy #[id number], 183, cm, 05/18/24 13:21:00 EDT, Height/Length Dosing, 107, kg, 05/18/24 13:21:00 EDT, Weight Dosing baclofen 5 mg oral tablet: 5 mg = 1 tab(s), Oral, TID, PRN Spasm, # 30 tab(s), Refills(s) 0, Pharmacy: [facility]/pharmacy #[id number], 183, cm, 02/14/24 13:46:00 EDT, Height/Length Dosing, 110.3, kg, 02/14/24 13:46:00 EDT, Weight Dosing gabapentin 300 mg Cap: 300 mg = 1 cap(s), Oral, Once a day (at bedtime), # 30 cap(s), Refills(s) 1,Pharmacy: [facility]/pharmacy #[id number], 183, cm, 12/16/23 10:37:00 [...] History of heart attack / SNOMED CT 2217856762 / Confirmed Acute angina / SNOMED CT 243290461 / Confirmed Irregular heart beat / SNOMED CT 251003579 / Confirmed HTN (hypertension) / SNOMED CT 0047792305 / Confirmed High cholesterol / SNOMED CT 13977276 / Confirmed H/O heart bypass surgery / SNOMED CT 915022283 / Confirmed Apnea, sleep / SNOMED CT 447192212 / Confirmed CPAP (continuous positive airway pressure) dependence / SNOMED CT 0044386845 / Confirmed Enlarged prostate / SNOMED CT 017834946 / Confirmed Chronic kidney disease (CKD) / SNOMED CT 1631220333 / Confirmed Diabetes / SNOMED CT 214286041 / Confirmed Carpal tunnel syndrome / SNOMED CT 25626994 / Confirmed Anemia / SNOMED CT 514816526 / Confirmed Arthritis, rheumatoid / SNOMED CT 005312328 / Confirmed Obesity / ICD-9-CM 278.00 / Possible Obesity / SNOMED CT [id number] / Possible Objective Vital Signs 08/03/2024 14:37 [...] right straight leg raise Integumentary: Warm, Dry, [place]. Neurologic: Alert, Oriented. (more content not included)...[facility] HospitalComment on above:Result Comment: Electronically Signed By: Margareth De La Cruz PA-C\.br\Date and Time Signed: 08/03/24 14:57 [id number] Evaluation + Plan noteExtracted from:Title: Pain Managment Follow upAuthor:Margareth De La Cruz PA-CDate:08/03/24 Impression and Plan Patient is a 74-year-old [...] heavy. He had previous injections. Some help andsome did not. At this time, we reviewed his MRI. We discussed different options. I recommended bilateral L4-5 transforaminal epidural steroid injection under fluoroscopy for [...] necessary. Follow-up as above mention. LEONOR score: 53%.[facility] [id number] Evaluation + Plan noteExtracted from:Title: Pain Managment Follow upAuthor:Margareth De La Cruz PA-CDate:05/18/24 Impression and Plan Patient is a 74-year-old [...] Follow-up in 4 to 6 weeks. He willcall us in the interim should he require anything from our services. LEONOR score: 40%. Future Appointments Appointment Date:07/01/2024 01:00:00 PM Scheduled Provider:Margareth De La Cruz PA-C Location:.[facility] Appointment Type:Pain Management - Follow Up (FT) [facility]07-01-2024 NoteConsultation Note Patient: TRAE PINEDA Age: [...] BID, # 120 tab(s), Refills(s) 0, Pharmacy: [facility]/pharmacy #[id number], 183, cm, 05/18/24 13:21:00 EDT, Height/Length Dosing, 107, kg, 05/18/24 13:21:00 EDT, Weight Dosing baclofen 5 mg oral tablet: 5 mg = 1 tab(s), Oral, TID, PRN Spasm, # 30 tab(s), Refills(s) 0, Pharmacy: [facility]/pharmacy #[id number], 183, cm, 02/14/24 13:46:00 EDT, Height/Length Dosing, 110.3, kg, 02/14/24 13:46:00 EDT, Weight Dosing gabapentin 300 mg Cap: 300 mg = 1 cap(s), Oral, Once a day (at bedtime), # 30 cap(s), Refills(s) 1,Pharmacy: [facility]/pharmacy #[id number], 183, cm, 12/16/23 10:37:00 [...] History of heart attack / SNOMED CT 7045170846 / Confirmed Acute angina / SNOMED CT 153683475 / Confirmed Irregular heart beat / SNOMED CT 196502861 / Confirmed HTN (hypertension) / SNOMED CT 5981419823 / Confirmed High cholesterol / SNOMED CT 35423661 / Confirmed H/O heart bypass surgery / SNOMED CT 209637008 / Confirmed Apnea, sleep / SNOMED CT 157572455 / Confirmed CPAP (continuous positive airway pressure) dependence / SNOMED CT 7828511160 / Confirmed Enlarged prostate / SNOMED CT 318924715 / Confirmed Chronic kidney disease (CKD) / SNOMED CT 8911056846 / Confirmed Diabetes / SNOMED CT 350336904 / Confirmed Carpal tunnel syndrome / SNOMED CT 61660766 / Confirmed Anemia / SNOMED CT 276545388 / Confirmed Arthritis, rheumatoid / SNOMED CT 889296284 / Confirmed Obesity / ICD-9-CM 278.00 / Possible Obesity / SNOMED CT [id number] / Possible Objective Vital Signs 05/18/2024 13:07 [...] right straight leg raise Integumentary: Warm, Dry, [place]. Neurologic: Alert, Oriented. Psychiatric: Cooperative, Appropriate mood [...] activities affects his ed (more content not included)...[facility] HospitalComment on above:Result Comment: Electronically Signed By: Margareth De La Cruz PA-C\.br\Date and Time Signed: 05/18/24 13:44 [id number] Evaluation + Plan noteExtracted from:Title:Pain Managment Follow upAuthor: Margareth De La Cruz PA-CDate:03/27/24 Impression and Plan Patient is 73-year-old male [...] PM Scheduled Provider:Margareth De La Cruz PA-C Location:FT.[facility] Appointment Type:Pain Management - Follow Up (FT) [facility]03-29-2024 Evaluation + Plan noteExtracted from: Title:Pain Managment Follow upAuthor:Margareth De La Cruz PA-CDate:02/14/24 Impression and Plan Patient is 73-year-old male [...] Scheduled Provider:Margareth De La Cruz PA-C Location:FT.[facility] Appointment Type:Pain Management - Follow Up (FT) [facility]02-28-2024 Evaluation + Plan noteExtracted from: Title:L5/S1 interlaminar epidural steroid injectionAuthor:John Cannon DO Date:01/15/24 Diagnosis: M54.16, lumbar ra [...] the epidural space was confirmed using the [id number] technique and 2 cc of air. Injection [...] Scheduled Provider:Margareth De La Cruz PA-C Location:.Pain [facility] Appointment Type:Pain Management - Follow Up (FT) [facility]01-29-2024 Evaluation + Plan noteExtracted from: Title:Pain Managment Follow upAuthor:Margareth De La Cruz PA-CDate:12/16/23 Impression and Plan Patient is a 73-year-old male with a past medical history significant for lumbosacral stenosis and lumbosacral neuritis. Previous transforaminal epidural steroid injection did not give him relief like the previous interlaminar epidural steroid injection did. We reviewed his MRI. Based on his MRI findings, his pain pattern, and his failure to get any long-term relief with the recent transforaminalepidural steroid injection we discussed pursuing L5-S1 epidural [...] He will follow-up as above-mentioned LEONOR score: 48%[facility]01-02-2024 Evaluation note* Encounter Date Diagnosis Assessment Notes Treatment Notes Treatment Clinical Notes Nov, Pulmonary nodule (ICD-10 - R91.1 ) CT: RML 4mm nodule - 02/2022, CT: RML 7mm nodule - 02/2023 CT: stable - 08/2023 02 Nov,4Right carotid bruit (ICD-10 - R09.89)Carotid US: 50-69% stenosis - 2019, Carotid US: < 50% ICA w/ 75% right carotid bulb - 08/2021 [facility] Other 12-28-2023 Evaluation note* Encounter Date Diagnosis Assessment Notes Treatment Notes Treatment Clinical Notes Oct, 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 They are instructed to continue exercise and AHA diet plan. Continue secondary prevention measures. Oct,rimary hypertension (ICD-10 - I10)This patient is instructed to consume a healthy, low-fat, low-salt diet. They are also encouraged to continue exercise to achieve/maintain a normal BMI. Patient is instructed on home BP measurements: - rest for 5 minutes w/o talking- positioned w/ feeton floor and arm supported- average best 2/3 readings w/ goal < 135/85 Oct,Type 2 diabetes mellitus with hyperglycemia (ICD-10 - E11.65)This patient is following a comprehensive diabetic treatment [...] Microalbumin, Dilated eye exam and Foot exam Oct,Type 2 diabetes mellitus with diabetic polyneuropathy (ICD-10 - E11.42)Inspect feet daily for cuts and calluses.Recommend diabetic shoes and inserts to prevent callus formation.Fall precautions. Oct,Hyperlipidemia, mixed (ICD-10 - E78.2)Instructed on diet and exercise with continued statin therapy.Discussed the beneficial effects of lo wering cholesterol in reducing the risk for cerebrovascular and cardiovascular disease. Oct,hronic bronchitis, mucopurulent (ICD-10 - J41.1)Continue antihistamines. He is instructed on cough and deep breathing He is not using any inhalers at this time. Oct,Obstructive sleep apnea (ICD-10 - G47.33)This patient is aware of the benefits associated with TALA: With continued use, the patient reduces the risk for AK, CVA, HTN, cardiac dysrhythmias and sudden cardiac deaths.The patient is also aware of the association between TALA and morning headaches, daytime somnolence, fatigue and obesity, whichalso has been improved with continued use.The patient is compliant with treatment, wearing the equipment every night for greater than 4 hours.The patient is instructed to continue use of the CPAP forOSA treatment. Oct,igarette nicotine dependence in remission (ICD-10 - F17.211) Continue abstinence Oct,Lumbar spondylosis (ICD-10 - M47.816)The patient is instructed to avoid bending, twisting or lifting. They are to use intermittent heat and ice as needed. They may schedule a massage or gentle manipulation. They may safely use Tylenol as needed. f/u Pain Clinic Scheduling MRI Oct,enign prostatic hyperplasia with lower urinary tract symptoms (ICD- 10 - N40.1)Symptoms increased Contemplating repeat laser treatment PSA decreased f/u Oct,Other obesity due to excess calories (ICD-10 - E66.09)This patient has been instructed on a low-fat, high-fiber diet. They are instructed to reduce calories, portion sizes and snacks. It is recommended that they exercise for 30 minutes, 3-5 times weekly. Weight increasing due to inactivity. Encouraged to resume exercising Oct,ody mass index [BMI] 32.0-32.9, adult (ICD-10 - Z68.32) [facility] Other 12-22-2023 Evaluation + Plan noteExtracted from:Title: Pain Managment Follow upAuthor:Jono AGOSTO, AmandaDate:11/08/23 Impression and Plan Patient is a 73-year-old [...] he wants to do. Based on the above- mentioned things, his pain pattern and his failure to improve as well as the significant pain he is experiencing I would recommend obtaining an updated lumbar MRI scan for possible other injection options versus surgical consultation depend on the results. Patient is agreeable. Follow-up after. LEONOR score: 36% Future Appointments Appointment Date:12/16/2023 10:15:00 AM Scheduled Provider:Margareth De La Cruz PA-C [facility]:Pain Management - Follow Up (FT) [facility]10-20-2023 Evaluation + Plan noteExtracted from: Title:Pain Managment Follow upAuthor:Margareth De La Cruz PA-CDate:09/06/23 Impression and Plan Patient is a 73-year-old [...] Provider:Margareth De La Cruz PA-C Location:[facility] [place] Appointment Type:Pain Management - Follow Up (FT) [facility]10-18-2023 Evaluation note* Encounter Date Diagnosis Assessment Notes Treatment Notes Treatment Clinical Notes Aug, Pulmonary nodule (ICD-10 - R91.1 ) CT: RML 4mm nodule - 02/2022, CT: RML 7mm nodule - 02/2023 CT: stable - 08/2023 [facility] Other 10-04-2023 Evaluation note* Encounter Date Diagnosis Assessment Notes Treatment Notes Treatment Clinical Notes Aug, Pulmonary nodule (ICD-10 - R91.1 ) [facility] Other 08-15-2023 Evaluation + Plan noteExtracted from:Title: Pain Managment Follow upAuthor:Margareth De La Cruz PA-CDate:07/02/23 Impression and Plan Patient is a 73-year-old [...] the clinic sooner if necessary. LEONOR score: 44%[facility]05-02-2023 Evaluation note* Encounter Date Diagnosis Assessment Notes Treatment Notes Treatment Clinical Notes March, COVID-19 (ICD-10 - U07.1) Instructed to use Robitussin or Mucinex for cough, saline or Flonase NS for congestion, Tylenol forpain and fever. March,hronic bronchitis, mucopurulent (ICD-10 - J41.1)Mucinex DM as needed. Push fluids [facility] Other 04-20-2023 Evaluation note* Encounter Date Diagnosis Assessment Notes Treatment Notes Treatment Clinical Notes Feb, Pulmonary nodule (ICD-10 - R91.1 ) CT: RML 4mm nodule - 02/2022 CT: RML 7mm nodule - 02/2023 [facility] Other 04-11-2023 Evaluation note* Encounter Date Diagnosis Assessment Notes Treatment Notes Treatment Clinical Notes Feb, Pulmonary nodule (ICD-10 - R91.1 ) [facility] Other 02-24-2023 Evaluation + Plan noteExtracted from:Title: Pain Managment Follow upAuthor:Jono AGOSTO, AmandaDate:01/11/23 Impression and Plan Patient is a 72-year-old [...] He will call should he require a repeatinjection. LEONOR score: 19[facility]02[facility] Evaluation note* Encounter Date Diagnosis Assessment Notes Treatment Notes Treatment Clinical Notes Dec, Primary hypertension (ICD-10 - I 10) This patient is instructed to consume a healthy, low-fat, low-salt diet. They are also encouraged to continue exercise to achieve/maintain a normal BMI. Dec,SHD (arteriosclerotic heart disease) (ICD-10 - I25.10)Echo: LVEF 60%, dilated RV, RVSP 34 - 07/2022This patient is stable without activity related CP, dyspnea or lightheadedness. They are instructedto continue exercise and AHA diet plan. Dec,Elevated cholesterol (ICD-10 - E78.00)Diet and exercise with continued statin therapy. Dec,Type 2 diabetes mellitus with hyperglycemia (ICD-10 - E11.65)This patient is following a comprehensive diabetic treatment [...] balance dosing will result in less fluctuations Dec,Long term (current) use of insulin (ICD-10 - Z79.4) Dec,Nocturia (ICD-10 - R35.1) Dec,enign prostatic hyperplasia with lower urinary tract symptoms (ICD- 10 - N40.1)f/u Urology, yearly PSA Dec,Lumbar spondylosis (ICD-10 - M47.816)The patient is instructed to avoid bending, twisting or lifting. They are to use intermittent heat and ice as needed. They may schedule a massage or gentle manipulation. They may safely use Tylenol as needed. f/u pain clinic and PT as needed. Dec,hronic venous insufficiency (ICD-10 - I87.2)Avoid salt and elevate lower extremities, support stockings, inspect legs and feet daily for blisters and ulcerations. Dec,igarette nicotine dependence in remission (ICD-10 - F17.211) Continue abstinence Dec,Right carotid bruit (ICD-10 - R09.89)Carotid US: 50-69% - 2019, Carotid US: < 50% ICA, 75% right carotid bulb - 2020 Continue ASA and Repatha. Control BP, BS Serial US Dec,ulmonary nodule (ICD-10 - R91.1)CT: RML 4mm nodule - erial LDCT for lung cancer detection [facility] Other Evaluation + Plan note No data available for this section [facility] Future Appointments Appointment Date:01/11/2023 01:45:00 PM Scheduled Provider:Margareth De La Cruz PA-C Location:[facility] [place] Appointment Type:[facility] Management - [facility] Future Appointments Appointment Date:09/06/2023 11:00:00 AM Scheduled Provider:Margareth De La Cruz PA-C Location:[facility] [place] Appointment Type:[facility] Management - [facility] Future Appointments Appointment Date:11/09/2024 08:00:00 AM Scheduled Provider: Location:[facility] Appointment Type:Surgery FT Appointment Date:11/17/2024 10:45:00 AM Scheduled Provider:Margareth De La Cruz PA-C Location:[facility] [place] Appointment Type:Pain Management - Follow Up (FT) [facility] Evaluation noteNo [employer] Other Evaluation note* Diagnosis Mixed hearing loss, bilateral- Primary Other specified disorders of Eustachian tube, unspecified ear documented in this encounter [facility]* Diagnosis Mixed conductive and sensorineural hearing loss of right ear with restricted hearing of left ear- Primary Sensorineural hearing loss (SNHL) of right ear with unrestricted hearing of left ear ETD (Eustachian tube dysfunction), bilateral documented in this encounter [facility]* Diagnosis Mixed conductive and sensorineural hearing loss of right ear with restricted hearing of left ear- Primary ETD (Eustachian tube dysfunction), bilateral OME (otitis media with effusion), right documented in this encounter [facility]* Diagnosis Onset Date Resolution Status Admit Date Anemia acuteJuly 2024 1:26pmASHD (arteriosclerotic heart disease)acuteJuly 2024 1:26pmChronic bronchitis, mucopurulentacuteJuly 2024 1:26pmChronic kidney diseaseacuteJuly 2024 1:26pmGERD (gastroesophageal reflux disease) acuteJuly 2024 1:26pmHypercholesterolemiaacuteJuly 2024 1:26pm HypertensionacuteJuly 2024 1:26pmNSVT (nonsustained ventricular tachycardia)acuteJuly 2024 1:26pmOSA (obstructive sleep apnea)acuteJuly 2024 1:26pmPulmonary noduleacuteJuly 2024 1:26pmType 2 diabetes mellitus with diabetic polyneuropathyacuteJuly 2024 1:26pmType 2 diabetes mellitus with hyperglycemiaacuteJuly 2024 1:26pm [facility] Work Phone: History general Narrative - Reported* Type Description Date Medical History prostate Medical Historyheart diseaseMedical HistoryArthritisMedical History hyperlipidemiaMedical HistoryhypertensionMedical HistoryType 2 diabetes mellitus with chronic kidney disease, without long-term current use of insulin, unsp ecified CKD stageMedical HistoryObstructive sleep apneaMedical HistoryLumbar spondylosisMedical HistoryEssential hypertensionMedical HistoryHyperlipidemia, mixedMedical HistoryChronic bronchitis, mucopurulentMedical History Arteriosclerotic heart diseaseMedical HistoryCalculus of gallbladder without cholecystitis without obstructionMedical HistoryQuadriceps strain, right, initial encounterMedical HistoryHematuria, grossMedical History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, unspecified chronicityMedical HistoryArteriosclerosis of abdominal aortaMedical HistoryRight carotid bruitMedical HistoryAcute bacterial conjunctivitis of both eyesMedical HistoryPrimary osteoarthritis of right kneeMedical HistoryDyspnea on effortMedical HistoryChronic venous insufficiencyMedical HistoryNicotine dependence, cigarettes, in remissionMedical HistoryIntermittent palpitations Medical HistoryType 2 diabetes mellitus with diabetic polyneuropathyMedical HistoryConjunctivitisMedical HistoryLumbar spondylosis with myelopathySurgical Historyankle surgerySurgical HistoryappendectomySurgical Historycarpal tunnel Surgical HistoryprostateSurgical HistoryNeck fusionSurgical HistoryTriple bypass Hospitalization Historysee sx history [facility] Other History general Narrative - Reported* Type Description Date Medical History prostate Medical Historyheart diseaseMedical HistoryArthritisMedical History hyperlipidemiaMedical HistoryhypertensionMedical HistoryType 2 diabetes mellitus with chronic kidney disease, without long-term current use of insulin, unsp ecified CKD stageMedical HistoryObstructive sleep apneaMedical HistoryLumbar spondylosisMedical HistoryEssential hypertensionMedical HistoryHyperlipidemia, mixedMedical HistoryChronic bronchitis, mucopurulentMedical History Arteriosclerotic heart diseaseMedical HistoryCalculus of gallbladder without cholecystitis without obstructionMedical HistoryQuadriceps strain, right, initial encounterMedical HistoryHematuria, grossMedical History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, unspecified chronicityMedical HistoryArteriosclerosis of abdominal aortaMedical HistoryRight carotid bruitMedical HistoryAcute bacterial conjunctivitis of both eyesMedical HistoryPrimary osteoarthritis of right kneeMedical HistoryDyspnea on effortMedical HistoryChronic venous insufficiencyMedical HistoryNicotine dependence, cigarettes, in remissionMedical HistoryIntermittent palpitations Medical HistoryType 2 diabetes mellitus with diabetic polyneuropathyMedical HistoryConjunctivitisMedical HistoryLumbar spondylosis with myelopathyMedical HistoryDiabetic nonproliferative retinopathySurgical Historyankle surgery Surgical HistoryappendectomySurgical Historycarpal tunnelSurgical History prostateSurgical HistoryNeck fusionSurgical HistoryTriple bypassHospitalization Historysee sx history [place] [employer] Other Hospital Discharge instructions No data available for this section [facility] No data available for this section [facility] HospitalReason for referral (narrative)No reason for referral information availableMain Campus [facility] Center Work Phone: Summary Purpose Family History No Family History Records Found Relationship Condition Age at Onset Recorded Date/T rip mother Glaucoma Unknown OsteoporosisUnknownDementiaUnknownDeceasedUnknownfatherCoronary artery disease UnknownMalignant neoplasm of prostateUnknownbrotherSchizophreniaUnknown Myocardial infarctionUnknown Advance Directives No Advanced Directives Records Found Advance Directive Response Recorded Date/ Time Advance Directives No November 23, 2019 10:54am Chief Complaint and Reason for Visit Chief Complaint Admit Date 4 month f/u June 07, 2025 1:26 pm Reason for Visit Admit Date Anemia June 07, 2025 1:26 pm ASHD (arteriosclerotic heart disease) Ju 2024 1:26pm Chronic bronchitis, mucopurulent June 072024 1:26pm Chronic kidney disease June 07, 2025 1 :26pm GERD (gastroesophageal reflux disease) J juno 2024 1:26pm Hypercholesterolemia June 07, 2025 1:2 6pm Hypertension June 07, 2025 1:26 pm NSVT (nonsustained ventricular tachycard ia) June 07, 2025 1:26pm TALA (obstructive sleep apnea) June 07, 2025 1:26pm Pulmonary nodule June 07, 2025 1:26 pm Type 2 diabetes mellitus with diabetic p olyneuropathy June 07, 2025 1:26pm Type 2 diabetes mellitus with hyperglyce radames June 07, 2025 1:26pm Additional Source Comments (unrecognized sect ion and content) No Status Records FoundNo Status Records FoundNo Status Records FoundNo Status Records FoundNo Status Records FoundNo Status Records Found INFORMATION SOURCE (unrecogn ized section and content) DATE CREATED AUTHOR 07/24/2022 [facility] DATE CREATED AUTHOR AUTHOR'S ORGANIZ ATION 03/11/2023 [facility] DATE CREATED AUTHOR AUTHOR'S ORGANIZ ATION 02/26/2025 [facility] DATE CREATED AUTHOR AUTHOR'S ORGANIZ ATION 04/07/2025 [facility] DATE CREATED AUTHOR AUTHOR'S ORGANIZ ATION 08/13/2025 [facility] DATE CREATED AUTHOR AUTHOR'S ORGANIZ ATION 09/01/2025 [facility] Patient Care team informatio n (unrecognized section and content) Team Status: Active Member Role Status Dates Cristobal Kearns DO Primary Care Provider Active Team Status: Active Member Role Status Dates Cristobal Kearns DO Primary Care Provider Active Start: March 19, 2025 Cristobal Kearns DOAttnakul ProviderActiveStart: March 19, 2025 Team Status: Active Member Role Status Dates Cristobal Kearns DO Primary Care Provider Active Start: May 11, 2025 Miguelina Weiner ProviderActiveStart: May 11, 2025 Team Status: Inactive Member Role Status Dates Cristobal Kearns DO Primary Care Provider Active Start: June 07, 2025 End: June 07sheri Kearns DOAttnakul ProviderActiveStart: June 07, 2025 End: June 07, 2025Team MemberRelationshipSpecialtyStart DateEnd Date Cristobal Kearns MD [address] [facility] [place] [phone] PCP - GeneralInternal Medicine11/23/24Team MemberRelationshipSpecialtyStart Date End Date Cristobal Kearns MD [address] [facility] [place] [address] PCP - GeneralInternal Medicine11/23/24Team MemberRelationshipSpecialtyStart Date End Date Cristobal Kearns MD [address] [facility] [place] [address] PCP - GeneralInternal Medicine11/23/24Team MemberRelationshipSpecialtyStart Date End Date Cristobal Kearns MD [address] [facility] [place] [phone] PCP - GeneralInternal Medicine11/23/24 Team Status: Inactive Member Role Status Dates Cristobal Kearns DO Primary Care Provide r, Attending Provider Active Start: November 12, 2024 End: November 12, 2024 Team Status: Active Member Role Status Dates Cristobal Kearns DO Primary Care Provide r, Attending Provider Active Start: November 17, 2024 Team Status: Active Member Role Status Dates Cristobal Kearns DO Primary Care Provide r, Attending Provider Active Start: November 20, 2024 Team Status: Active Member Role Status Dates Cristobal Kearns DO Primary Care Provider Active Start: December 28, 2024 Miguelina Weiner ProviderActiveStart: December 28, 2024 Team Status: Active Member Role Status Dates Cristobal Kearns DO Primary Care Provider Active Start: January 14, 2025 Miguelina Weiner ProviderActiveStart: January 14, 2025 Team Status: Active Member Role Status Dates Cristobal Kearns DO Primary Care Provide r, Attending Provider Active Start: January 19, 2025 Team Status: Inactive Member Role Status Dates Cristobal Kearns DO Primary Care Provide r, Attending Provider Active Start: February 10, 2025 End: February 10, 2025Team MemberRelationshipSpecialtyStart DateEnd Date Cristobal Kearns MD [address] [place] [address] PCP - GeneralInternal Medicine11/23/24Team MemberRelationshipSpecialtyStart Date End Date Cristobal Kearns MD [address] [place] [phone] PCP - GeneralInternal Medicine11/23/24 REASON FOR VISIT (unrecogniz ed section and content) ReasonCommentsHearing LossAudio 01/19/25ReasonCommentsEar Problem1 month check ears Goals (unrecognized section and content) Goals may be documented in a n alternate section FOR RECORDS PERTAINING TO PATIENTS WHO ARE [...] BE BASED ON THE PRIMARY CLINICAL RECORDS. [facility] [employer] [facility]. provides no warranty or guarantee of the accuracy or completeness of information in this document.
[2025-09-07 15:03] LABS: Hematocrit 37.1 % (42.0-54.0); Hemoglobin 12.4 g/dL (14.0-18.0); Immature Granulocytes Abs Auto 0.03 10^3/uL (0.00-0.03); Immature Granulocytes Pct Auto 0.4 % (0.0-0.5); Lymphocytes Absolute Auto 1.8 10^3/uL (1.2-3.8); Mean Corpuscular HGB Conc 33.4 g/dL (29.9-35.2); Mean Corpuscular Hemoglobin 31.0 pg (25.9-34.0); Mean Corpuscular Volume 92.8 fL (80.0-94.0); Platelet Count 216 10^3/uL (150-450); Red Blood Count 4.00 10^6/uL (4.70-6.10); White Blood Count 8.2 10^3/uL (4.0-11.0)
[2025-09-07 15:50] LABS: Alanine Aminotransferase 25 U/L (16-63); Albumin Globulin Ratio 1.1; Albumin Level 4.0 g/dL (3.4-5.0); Alkaline Phosphatase 73 U/L (46-116); Anion Gap 16.1; Aspartate Amino Transferase 17 U/L (15-37); Blood Urea Nitrogen 34.0 mg/dL (7.0-18.0); Calcium 8.9 mg/dL (8.5-10.1); Carbon Dioxide 25.8 mmol/L (21.0-32.0); Chloride 105 mmol/L (98-107); Cholesterol 125 mg/dL (<=200); Estimated GFR (African America 52 (>=60 mL/min/1.73m^2); Estimated GFR (Non-African Ame 43 (>=60 mL/min/1.73m^2); Globulin 3.5 g/dL; Glucose 88 mg/dL (74-106); HDL Cholesterol 41 mg/dL (40-60); Potassium 4.9 mmol/L (3.5-5.1); Sodium 142 mmol/L (136-145); Total Protein 7.5 g/dL (6.4-8.2); Triglycerides 167 mg/dL (<=150); VLDL CHOLESTEROL 33.4 mg/dL
[2025-09-07 16:33] LABS: Ferritin 214.0 ng/mL (26.0-388.0); Folate 15.30 ng/mL (8.60-58.90)
[2025-09-08 04:08] LABS: Vitamin B12 >2000 pg/mL (232-1245)
[2025-09-08 16:25] LABS: Microalbum Creatinine Ratio Ur 48.7 mg/g (0.0-29.9)
== END 2025-09-07 14:25 | disposition home or self-care (01) ==
PROVIDERS: PCP Internal Medicine; Visit Provider Internal Medicine
DX: E78.00 Pure hypercholesterolemia, unspecified (principal); R91.1 Solitary pulmonary nodule; E11.65 Type 2 diabetes mellitus with hyperglycemia; Z79.4 Long term (current) use of insulin; D64.9 Anemia, unspecified; I25.5 Ischemic cardiomyopathy; N18.4 Chronic kidney disease, stage 4 (severe)
CPT/HCPCS: 36415; 80053; 80061; 82043; 82570; 82607; 82728; 82746; 83036; 85025

== ENCOUNTER 2025-09-16 12:37 | Outpatient (OUT) | payer MEDICARE, SELFPAY ==
--- OUTSIDE RECORDS SUMMARY | 2025-06-10 10:40 | XMS_ITS ---
Author Organization [facility] Address [address] [place] [address] Care Team Providers Care Erection Shop Supervisor Name Role Phone ARIAN KEARNS DO Primary Care Provider Abhi Denise Unavailable [phone] REASON FOR VISIT RT FOOT/ANKLE OA Encounters Encounter Location Date Provider Diagnosis [facility] [facility] [address] [place] [address] 06/10/2025 Abhi Melchor Plan Of Treatment No Information Progress Notes * TRAE MONROE EDOB:1950 (75 yo M)Acc No.[id number]:06/10/2025 Patient:?TRAE MONROE :?Abhi Melchor DPMDOB:1950???Age:75 Y ???Sex:MaleDate:06/10/2025Phone:[phone]:[address] [place] [phone]:ARIAN KEARNS DO Subjective: * Chief Complaints: * 1 . RT FOOT/ANKLE OA. * Medical History: Objective: * Vitals: Assessment: Plan: * Treatment: Forms: * Images: * Electronic signature of Abhi Melchor DPM on 09/16/2025 at 12:42 PM EDTSign off status: Pending * Provider: Shiomn Melchor DPM Date: 0 06/10/2025 Generated for Printing/Faxing/eTransmitting on:?09/16/2025 12:42 PM EDT
--- OUTSIDE RECORDS SUMMARY | 2025-09-16 12:42 | XMS_ITS | Clinical Summary ---
Author Organization [facility] Address [address] [place] [address] Care Team Providers Care Engineered Wood Designer Name Role Phone Cristobal Michel DO Primary Care Provider [phone] Fredis Ariza MD Unavailable [phone] Aleida Wayne Unavailable Unavailable Moises Aguirre CNP Unavailable [phone] Allergies Active AllergyReactionsCriticalityNoted DateCommentsHydralazinePalpitationsLow 07/25/2022 Other reaction(s): chest pain YqknithngyGezgxosa58/10/6402Twdtubs-Oiq-Rtl Reductase BsopgzhchiRegrn71/19/2014 Medications MedicationSigDispense QuantityRefillsLast FilledStart DateEnd DateStatus aspirin 81 mg EC tablet Take 1 tablet every day by oral route.Active ranolazine (Ranexa) 500 mg 12 hr tablet Take 1 tablet by mouth in the morning and at bedtime.Active alfuzosin (Uroxatral) 10 mg 24 hr tablet Indications:Benign prostatic hyperplasia with incomplete bladder emptying, Incomplete bladder emptyingTAKE 1 TABLET BY MOUTH IN THE MORNING, DO NOT CRUSH, CHEW, OR SPLIT 90 tablet 5Active Additional Information Patient not taking.Reason: Side effects, Reported on 08/10/2025 metoprolol succinate XL (Toprol-XL) 25 mg 24 hr tablet Indications:Coronary artery disease involving galena coronary artery of galena heart without angina pectoris,Nonsustained ventricular tachycardia (CMS/HCC)Take 0.5 tablets (12.5 mg) by mouth in the morning. Do not crush or chew. 45 tablet ctive dutasteride (Avodart) 0.5 mg capsule Indications:Benign prostatic hyperplasia with weak urinary streamTAKE 1 CAPSULE (0.5 MG) BY MOUTH IN THE MORNING. 90 capsule 5Active fluticasone (Flonase) 50 mcg/actuation nasal spray Administer 2 sprays into each nostril in the morning. Shake gently. Before first use, prime pump. After use, clean tip and replace cap.Active sildenafil (Viagra) 100 mg tablet Indications:erectile dysfunctionTake 1 tablet (100 mg) by mouth if needed for erectile dysfunction. 10 tablet 5Active evolocumab (Repatha Syringe) 140 mg/mL syringe Indications:Mixed hyperlipidemiaInject 1 mL under the skin every 14 (fourteen) days. 6 mL ctive alpha lipoic acid 200 mg capsule 200 Units in the morning and at bedtime.02/10/2024ctive NovoLIN 70-30 FlexPen U-100 100 unit/mL (70-30) injection pen 40 units am, 30 units pm5Active cyanocobalamin (Vitamin B-12) 1,000 mcg tablet Take 5,000 mcg by mouth in the morning.Active sd-axa-QY-vit K-xjhwsq-mclrxiu (PreserVision AREDS 2 Plus MV) 200 mcg-15 mcg- 5 mg-1 mg capsule Take by mouth.Active amLODIPine (Norvasc) 2.5 mg tablet Indications:Primary hypertensionTake 1 tablet (2.5 mg) by mouth in the morning. Take in addition to the 5 mg tablet for a total of 7.5 mg daily. 90 tablet 506Active ezetimibe (Zetia) 10 mg tablet Indications:Hyperlipidemia, unspecified hyperlipidemia typeTAKE 1 TABLET EVERY MORNING 90 tablet 5Active testosterone 20.25 mg/1.25 gram (1.62 %) gel in metered-dose pump gel Indications:Hypogonadism in maleApply 2 Pump (40.5 mg) topically in the morning. Apply to skin of shoulder and/or upper chest, every morning, as directed. 75 g 5Active lisinopril 5 mg tablet Indications:Primary hypertensionTAKE 1 TABLET BY MOUTH EVERY DAY IN THE MORNING 90 tablet 3085Active Myrbetriq 50 mg tablet extended release 24 hr Indications:Urge urinary incontinenceTAKE 1 TABLET BY MOUTH EVERY DAY IN THE MORNING 90 tablet 5Active amLODIPine (Norvasc) 5 mg tablet Indications:Primary hypertensionTAKE 1 TABLET BY MOUTH EVERY DAY IN THE MORNING 90 tablet 3095Active Breztri Aerosphere 160-9-4.8 mcg/actuation HFA aerosol inhaler INHALE 2 PUFFS TWICE DAILY FOR 30 DAYS5Active sulfamethoxazole-trimethoprim (Bactrim DS) 800-160 mg tablet Indications:Chronic bacterial prostatitisTake 1 tablet by mouth two times per day for 14 days, subsequently take 1 tablet every evening for 28 days 56 tablet 5Active tadalafil (Cialis) 5 mg tablet Indications:Erectile dysfunction, unspecified erectile dysfunction typeTAKE 1 TABLET BY MOUTH EVERY DAY IN THE MORNING 30 tablet 5105Active tadalafil (Cialis) 5 mg tablet Indications:Hypogonadism in maleTAKE 1 TABLET BY MOUTH EVERY DAY IN THE MORNING 30 tablet Discontinued Active Problems ProblemNoted DateDiagnosed DateFoot pain, right04/28/2025rthritis of right ankle04/28/2025Nonsustained ventricular codokdsbnbf31/02/2025Shortness of breath 02/17/2025Encounter for screening for malignant neoplasm of fkbiempa49/18/2025 Arthritis, lvhakgkpbu73/03/2025Orthostatic rudbtpzpu00/12/2024Incomplete bladder depdmaop28/27/2024Urge urinary yqnajssqifyd38/27/7080Jolcqkl44/30/2024ystitis nbhyppm5503/17/2024ody mass index (BMI) 32.0-32.9, adult Carotid bruithronic bronchitis, /25/2024 03/12/2024GERD (gastroesophageal reflux disease)Lumbar ucolfkhdxve53Nicotine dependence, cigarettes, in remission Other obesity due to excess eekzubof62Type 2 diabetes mellitus with kzmtuffnlttkd77/25/202404/Lumbar stenosis with neurogenic nzrfcoqppjxx41Type 2 diabetes mellitus with diabetic zbtnwcmravvobw65Spinal stenosis of lumbar region with neurogenic ixegmtyvfyhd30/04/202403/02/2024Sleep apnea Irregular heart akzwcb41History of open heart surgery History of myocardial zgjeroczpx16Enlarged beojyeys03PAP (continuous positive airway pressure) amgyisijxj34arpal tunnel hozrbwzp69nemia KD (chronic kidney disease)06/04/2023Suprapubic discomfort 08/14/2022enign prostatic hyperplasia with lower urinary tract symptoms 08/14/2022Erectile mqngtietlmx10/27/2022Lung prkigm0508/14/2022Hypogonadism in male2Chronic dcsownslegv95/07/2022Generalized ischemic myocardial eizjsmuoogv15/07/2022Chronic tjcwarb29/07/2022Disorder of lipid metabolism 08/31/2014Coronary arteriosclerosis of galena coronary artery of transplanted heart07/21/2014Prostate cancer yicdhlpjc16/13/2014Chest pain04/08/2013Type 2 diabetes mellitus without yvwuagfucbzm11/09/4828Aogeiojbcstrkc09/09/2013DOE (dyspnea on exertion)02/24/2013Primary qmrpotrdbcpo14/09/2013Coronary artery disease involving galena coronary artery of galena heart02/24/2013Seizure 01/27/2013Kidney stone01/27/2013Generalized anxiety xypdwzfl13/12/2013Gallstone 01/27/2013Depressive snixfuvq17/12/2013Chronic obstructive lung disease 01/27/2013 Resolved Problems ProblemNoted DateDiagnosed DateResolved DateHypertensive xkspeweo37/14/2014 12/09/2023Type 1 diabetes kehzzpvb49 Encounters DateTypeDepartmentCare CopnCpqtlmipebv81/29/2025[facility] [address] [place] [address] Fredis Ariza MD Erectile dysfunction, unspecified erectile dysfunction type (Primary Dx); Hypogonadism in male08/10/2025 11:00 AM EDTOffice Visit [facility] [address] [place] [address] Sriram Nash, BATCH TANK CONTROLLER Chronic bacterial prostatitis (Primary Dx); Benign prostatic hyperplasia with incomplete bladder emptying; Suprapubic pressure; Bladder pain07/20/2025 2:30 PM EDTOffice Visit [facility] [address] [place] [facility] [place] [phone] Franko Cifuentes MD Nonsustained ventricular tachycardia (CMS/HCC)07/18/2025[facility] [address] [place] [facility] [place] [phone] Eddie Dao MD Primary xycjsvavjwpe46/15/2025[facility] [address] [place] [address] Fredis Ariza MD Urge urinary tzwptocqegss17/03/2025[facility] [address] [place] [facility] [place] [phone] Chi Moss MD Primary hypertensionfrom Last 3 Months Immunizations ImmunizationAdministration DatesNext DueInfluenza, High Dose Seasonal, Preservative Free10/20/2018,07/19/2017Influenza, Seasonal, Quadrivalent, Eqphsqlecm78/24/2023,09/05/2022Influenza, Mvanqjcdqvy08/19/2022,08/21/2021, 07/27/2020,08/26/2019,10/29/2018,07/19/2017,10/09/2016,10/18/2015Influenza, injectable, quadrivalent, preservative free09/30/2015Influenza, seasonal, utlplikvzt88/14/2020,09/11/2013Moderna SARS-CoV-2 Wvlgxxhlimw74/12/2022Pfizer Covid-19 Vaccine, &up, Fall 2022-3Pfizer SARS-CoV-2 Vaccination 2Pneumococcal Conjugate PCV 13111/20/2014Pneumococcal Polysaccharide PZJ652901/08/2012RSV, Adult, Zlgndgwbohx95/05/2023Zoster, Rqmqktzvbwp67/25/2020 Zoster, live08/12/2020,10/04/2011 Family History Medical HistoryRelationNameCommentsCoronary artery diseaseBrotherProstate cancer FatherVernon ClausHeart failureMotherRelationNameStatusCommentsBrotherDeceased FatherVernon ClausDeceasedMotherDeceased Social History Tobacco UseTypesPacks/DayYears UsedDateSmoking Tobacco: FormerCigarettesQuit: 11/18/1982Passive Smoke Exposure: NeverSmokeless Tobacco: Never Tobacco Cessation:Counseling Given: Not Answered Alcohol UseStandard Drinks/WeekCommentsNever0 (1 standard drink = 0.6 oz pure alcohol)Humiliation, Afraid, Rape, and Kick questionnaireAnswerDate Recorded Within the last year, have you been afraid of your partner or ex-partner?No 02/02/2025Emotionally AbusedNot on file02/02/2025Physically AbusedNot on file 02/02/2025Sexually AbusedNot on file02/02/2025PHQ-2AnswerDate RecordedPatient Health Questionnaire-2 Uljim644Sex and Gender InformationValueDate RecordedSex Assigned at UlrzxExcc12/11/2023 6:08 AM ESTLegal DcjGeug2605/16/2022 10:15 PM EDTGender YrjqpoolKiss21/11/2023 6:08 AM ESTSexual OrientationBisexual 12/27/2024 10:40 PM EST Last Filed Vital Signs Vital SignReadingTime TakenCommentsBlood Xzhqcsvy473/6609 11:24 AM EDT Uctvt3921 11:24 AM CGGAhovvcjvvry23.6 ??C (97.9 ??F)08/10/2025 11:24 AM EDTRespiratory Qfpq673903/25/2025 6:30 PM EDTOxygen Gezfrtzdzk46%07/20/2025 2:35 PM EDTInhaled Oxygen Concentration--Mhpjmd067 kg (231 lb 6.4 oz)08/10/2025 11:24 AM HCSTyspgs957.9 cm (6')08/10/2025 11:24 AM EDTBody Mass Index31.38008/10/2025 11:24 AM EDT Plan of Treatment DateTypeDepartmentCare Team (Latest Contact Info)Qhklqqmclsk40/23/2025 9:15 AM ESTFollow-Up [facility] [address] [place] [address] Fredis Ariza MD [facility] [place] [address] [place] [address] Health MaintenanceDue DateLast DoneCommentsDiabetes: Hemoglobin A1C1948 Medicare Annual Wellness (AWV)1950Diabetes: Retinopathy Screening 1958Diabetes: Urine Protein Wcoeqvhcp00/17/1967Adult Ujlkrig7803/04/1970 Pneumococcal Vaccine: 50+ Years (3 of 3 - PCV20 or PCV21), 11/07/2012Zoster Vaccines (2 of 2), 08/12/2020, 10/04/2011 COVID-19 Vaccine ( season), 10/11/2023, 09/28/2022, Additional history existsInfluenza Vaccine (#1)/05/2024, 10/11/2023, 09/05/2022, Additional history existsDepression Wydbqujfj18/18/2026 02/02/2025Fall Risk Nskzbednx66HIB VaccinesAged OutNo longer eligible based on patient's age to complete this topicHPV VaccinesAged OutNo longer eligible based on patient's age to complete this topicIPV VaccinesAged OutNo longer eligible based on patient's age to complete this topicMeningococcal B VaccineAged OutNo longer eligible based on patient's age to complete this topicMeningococcal VaccineAged OutNo longer eligible based on patient's age to complete this topicRotavirus VaccinesAged OutNo longer eligible based on patient's age to complete this topic Medical Devices ImplantedTypeAreaManufacturerDevice IdentifierShelf Expiration DateModel / Serial / LotStentStentHeart Procedures Procedure NamePriorityDate/TimeAssociated DiagnosisCommentsURINALYSIS WITH CLCQTGOZMVLYdderqf78/23/2025 12:42 PM EDT Suprapubic pressure Bladder pain URINE ISBYPFKYmdkjjk92/23/2025 12:42 PM EDT Suprapubic pressure Bladder pain from Last 3 Months Results * (ABNORMAL) Urinalysis with microscopic (08/10/2025 12:42 PM EDT)ComponentValue Ref RangeTest MethodAnalysis TimePerformed AtPathologist SignatureColor, Urine YellowColorless, Yellow, Light-Rqfock3708/10/2025 1:36 PM [facility] ([facility])Clarity, RhjmuRygasUcykn36/23/2025 1:36 PM [facility] ([facility])Specific [place], Urine1.0191.010 - 1.1943108/10/2025 1:36 PM [facility] ([facility])pH, Urine5.55.0 - 8.0 pH08/10/2025 1:36 PM [facility] ([facility])Leukocytes, StghuMiagfxjgDydhifhy45/23/2025 1:36 PM EDT [facility] ([facility])Nitrite, XrmkhThetopwcRccgsezi81/23/2025 1:36 PM EDT [facility] ([facility])Protein, UrineNegativeNegative mg/dL08/10/2025 1:36 PM [facility] ([facility])Glucose, UrineNormalNormal mg/dL08/10/2025 1:36 PM [facility] ([facility])Bilirubin, UrineNegativeNegative 08/10/2025 1:36 PM [facility] ([facility])Ketones, UrineNegativeNegative mg/dL08/10/2025 1:36 PM [facility] ([facility])Urobilinogen, UrineNormal Normal mg/dL08/10/2025 1:36 PM [facility] ([facility])Blood, Urine KjqajofqRevyluuz69/23/2025 1:36 PM [facility] ([facility])RBC, Urine0-2 None Seen, 0-2 /HPF08/10/2025 1:36 PM [facility] ([facility])WBC, Urine 0-2None Seen, 0-2 /HPF08/10/2025 1:36 PM [facility] ([facility])Squamous Epithelial, UrineNone SeenNone Seen, Occasional, Few /[facility]08/10/2025 1:36 PM [facility] ([facility])Mucus, UrineOccasionalNone Seen, Occasional, Few /LP08/10/2025 1:36 PM [facility] ([facility])Casts, UrinePresent(A)None Seen /LPF08/10/2025 1:36 PM [facility] ([facility])Hyaline Casts, UA 11-20(A)0 - 2 /LPF08/10/2025 1:36 PM [facility] ([facility])Specimen (Source)Anatomical Location / LateralityCollection Method / VolumeCollection TimeReceived TimeUrineUrine specimen obtained by clean catch procedure / UnknownNon-blood Collection / Byifmsq5308/10/2025 12:42 PM EDT08/10/2025 12:42 PM EDT Narrative Authorizing ProviderResult TypeResult StatusSriram Nash CNPLAB URINE ORDERABLESFinal ResultPerforming OrganizationAddressCity/State/ZIP CodePhone Number [facility] ([facility]) [address] [place] [address] * Urine culture, routine (08/10/2025 12:42 PM EDT)ComponentValueRef RangeTest MethodAnalysis TimePerformed AtPathologist SignatureUrine CultureNo growth at 48 hours JOSEPH 08/12/2025 7:41 AM EDT[facility] ([place])Specimen (Source)Anatomical Location / LateralityCollection Method / VolumeCollection TimeReceived TimeUrine Urine specimen obtained by clean catch procedure / UnknownNon-blood Collection / Leiogef6108/10/2025 12:42 PM EDT08/10/2025 12:42 PM EDT Narrative Authorizing ProviderResult TypeResult StatusArsen Charity ADAMSLAB MICROBIOLOGY - GENERAL ORDERABLESFinal ResultPerforming OrganizationAddressCity/State/ZIP Code Phone Number [facility] ([place]) [address] [place] [address] from Last 3 Months Insurance Care Teams Team MemberRelationshipSpecialtyStart DateEnd Date Cristobal Michel DO [address] [place] [address] PCP - General07/09/22 Fredis Ariza MD [address] [place] [address] [place] [address] Consulting PhysicianTransplant Surgery07/25/22 Aleida Wayne PA [address] [place] [address] [place] [address] Physician AssistantUrology05/28/23 Moises Aguirre CNP [address] [place] [address] [place] [phone] Nurse PractitionerUrology2
--- OUTSIDE RECORDS SUMMARY | 2025-09-16 12:42 | XMS_ITS | Patient Health Record ---
Author Organization [facility] Address [address] [place] [address] Care Team Providers Care Central Station Operator Name Role Phone ARIAN KEARNS DO Primary Care Provider Ahbi Denise Unavailable [phone] Sofia German Unavailable Allergies Allergen (clinical drug ingredient) Drug/Non Drug Allergy documented on EMR Reaction Allergy Type Onset Date Status statins (uncoded)UnknownAllergyActivehydrALAZINEUnknownDrug AllergyActive pregabalinLyricaUnknownDrug AllergyActive Reason For Referral No Information Medications Medication SIG (Take, Route, Frequency, Duration) Notes Start Date End Date Status Vitamin B-12 ActiveZetiaActiveUroxatralActivetestosteroneActiveRepatha Prefilled Syringe ActivemetoprololActiveRanexaActiveloratadineActivePreserVision AREDS 2Active lisinoprilActiveNorvascActivefluticasone nasalActiveMyrbetriq 25 mg1 tab(s) orally once a dayActivedutasterideActiveHumuLIN 70/30ActiveCalcium 500+DActive Cialis 10 mg1 tab(s) orally once a dayActiveaspirinActiveAlpha Lipoic Acid 50 mg 1 tab(s) orally once a dayActive Social History Tobacco Use: Social History Observation Description Date Details (start date - stop date) Former Smoker NA - NA Smoking History Question Answer Notes Smoking Status Former Smoker AUDIT-C (Standard) Question Answer Notes Did you have a drink containing alcohol in the p ast year? No Giwvbj3ZwjlzhbjpqckmzLxenbpzs Problems Problem Type SNOMED Code ICD Code Onset Dates Problem Status W/U Status Risk Notes Problem [id number] Foot pain, right (M79.671 ) Yasr[id number], right foot (M77.41)Active blobjakjoUigxmwp087888951Rbvevtnq polyneuropathy associated with type 2 diabetes mellitus (E11.42)BuvvnmpfcprjpyxLyvumba0863929556888024Gffnsvjlo of right ankle (M19.071)Activeconfirmed Vital Signs Height 6'0 in 03/01/2025 Kuhwgt027 lbs03/01/2025BMI31.8703/01/2025 Encounters Encounter Location Date Provider Diagnosis [facility] Office [address] [place] [address] [place] [address] 03/01/20[place] [facility] Foot pain, right M79.671 ; Arthritis of right ankle M19.071 and Metatarsalgia, right foot M77.41 [facility] Office [address] [place] [address] [place] [address] 03/11/2025 Abhi Melchor Diabetic polyneuropathy associated with type 2 diabetes mellitus E11.42 and Osteoarthritis of right ankle and foot M19.071 Assessments Encounter Date Diagnosis (ICD Code) Assessment Notes Treatment Notes Treatment Clinical Notes Section Notes 03/01/2025 Foot pain, right (ICD-10 - M79.6 71) Right ankle DJD Right foot metatarsalgia 03/01/2025rthritis of right ankle (ICD-10 - M19.071) Right ankle DJD Right foot metatarsalgia 03/11/2025Diabetic polyneuropathy associated with type 2 diabetes mellitus (ICD- 10 - E11.42) Primary osteoarthritis foot/ankle bilateral Type 2 diabetes 03/11/2025Osteoarthritis of right ankle and foot (ICD-10 - M19.071) Primary osteoarthritis foot/ankle bilateral Type 2 diabetes 03/01/2025Metatarsalgia, right foot (ICD-10 - M77.41) Right ankle DJD Right foot metatarsalgia 03/01/2025OtherToday am going to give patient a metatarsal pad. He has a heart condition and NSAIDs are not a goodoption for him. He is interested in possible corticosteroid injections in his foot/ankle. I am going to refer him to Dr. Melchor to establish with them. We can see him back on an as-needed basis. Right ankle DJD Right foot metatarsalgia 03/11/2025Other Patient examined and evaluated Outside x-rays dated 03/01/2025 were reviewed in detail discussed at length Patient was given a prescription for extra-depth diabetic shoes with Plastizote insoles Patient was fit dispensed metatarsal offloading pads Patient will follow-up with us in 3 months All further questions concerns were addressed Primary osteoarthritis foot/ankle bilateral Type 2 diabetes Plan Of Treatment Pending Test Test Name Order Date NTH - DIABETIC SHOES WITH INSERTS 2024 SCC- ANKLE 3 VIEW RIGHT 60817 03/01/2025 SCC- FOOT 3 VIEW RIGHT [id number] 03/01/2025 Insurance Providers Payer Name Payer Address Payer Phone Subscriber Number Group Number Insured Name Patient Relationship to Insured Coverage Start Date Coverage End Date Medicare Aena [address] [place] [address] [id number] Marvin MONORE - patient is the [id number] 2025 Medical (General) History Medical History History ICD Code Heart attack: Yes Abnormal Heart Rhythm: YesAnemia: YesChronic back pain:: YesCOPD: : YesCPAP: Yes CPAP Machine:: YesDiabetes: YesDiabetes, type II: YesDRUG ALLERGIES: Yes Healthcare worker: NoHeart Attack: YesHeart condition:: YesHeart problems:: Yes Heart Stents: YesHigh Blood Pressure: YesIrregular heartbeat: : YesKidney failure: YesKidney stones: YesLatex Allergy: NoRheumatoid arthritis: YesSleep apnea: YesHave you been in close contact with someone who has had MRSA within the last year?: NoHave you ever had or presently have MRSA?: NoHave you been seen by a dentist in the last year?: YesDo you have any dental problems i.e. Broken, loose, or chipped teeth, absess, gum disease?: YesSurgical History Surgery Date(Month/Year) laminectomy coronary bypass graftcervical fusion syndrmecarpal tunnel releaseAnkle fracture
--- OUTSIDE RECORDS SUMMARY | 2025-09-16 12:42 | XMS_ITS | Clinical Summary ---
Author Organization NuLabel tem Address [facility] [place] [id number] [address] [place] [address] Care Team Providers Care Medical Instructor Name Role Phone Cristobal Michel DO Primary Care Provider [phone] Allergies Active AllergyReactionsCriticalityNoted DateCommentsHydralazineOther (See Comments),ImufozswkvskVmc05/07/2022 Other reaction(s): chest pain TawpkmcdmpKmoogkva86/10/0649Kxhwfbr-Fka-Fzk Reductase Inhibitorsmuscle cramps, Other (See Comments)01/18/2025 Other Reaction(s): muscle ache Medications MedicationSigDispense QuantityRefillsLast FilledStart DateEnd DateStatus alfuzosin (UROXATRAL) 10 mg 24 hr tablet 1 tablet (10 mg total).4Active aspirin 81 mg Take 1 tablet (81 mg total) by mouth in the morning. TAKE 1 TABLET EVERY DAY BY ORAL ROUTE.Active egjkkihbpz-avtxwhtv-ghkxpullfb (BREZTRI AEROSPHERE) 160-9-4.8 mcg/actuation HFA aerosol inhaler INHALE 2 PUFFS TWICE DAILY FOR 30 DAYS5Active dutasteride (AVODART) 0.5 mg capsule Take 1 capsule (0.5 mg total) by mouth in the morning.4Active ezetimibe (ZETIA) 10 mg tablet Take 1 tablet (10 mg total) by mouth.5Active insulin NPH and regular human (NovoLIN 70-30 FlexPen U-100) 100 unit/mL (70-30) insulin pen 40 units am, 30 units pm5Active metoprolol succinate XL (TOPROL XL) 25 mg 24 hr tablet Take 0.5 tablets (12.5 mg total) by mouth before bedtime./08/2026 Active ranolazine (RANEXA) 500 mg 12 hr tablet Take 1 tablet (500 mg total) by mouth in the morning and 1 tablet (500 mg total) before bedtime.Active mirabegron (MYRBETRIQ) 50 mg tablet extended release 24 hr Take 1 tablet (50 mg total) by mouth.11/10/2024ctive antiox #8/om3/dha/epa/lut/zeax (PRESERVISION AREDS 2, OMEGA-3, ORAL) Take 1 capsule by mouth in the morning.Active alpha lipoic acid 50 mg tablet Take 1 tablet by mouth in the morning. 1 TAB(S) ORALLY ONCE A DAY.Active cyanocobalamin, vitamin B-12, (VITAMIN B-12) 1,000 mcg tablet extended release Take 1 tablet (1 mg total) by mouth in the morning.Active testosterone (ANDROGEL) 20.25 mg/1.25 gram (1.62 %) gel in metered-dose pump Apply 1 Act (20.25 mg total) topically in the morning.03/26/2025tive tadalafiL (CIALIS) 10 MG tablet Take 1 tablet (10 mg total) by mouth in the morning. 1 TAB(S) ORALLY ONCE A DAY. Active evolocumab (REPATHA SYRINGE) 140 mg/mL syringe Inject 1 mL under the skin every 14 (fourteen) days. One injection once every 2 weeks on /ctive acetaminophen (TYLENOL EXTRA STRENGTH) 500 mg tablet Take 1 tablet (500 mg total) by mouth every 6 (six) hours.Active amLODIPine (NORVASC) 2.5 mg tablet Take 1 tablet (2.5 mg total) by mouth in the morning./6Active amLODIPine (NORVASC) 5 mg tablet Take 1 tablet (5 mg total) by mouth in the morning.09/01/2025tive lisinopriL (PRINIVIL,ZESTRIL) 5 mg tablet Take 1 tablet (5 mg total) by mouth in the morning.09/01/2025tive amLODIPine (NORVASC) 2.5 mg tablet Take 1 tablet (2.5 mg total) by mouth in the morning. Discontinued amLODIPine (NORVASC) 5 mg tablet Take 1 tablet (5 mg total) by mouth.Discontinued insulin NPH (HumuLIN N,NovoLIN N) 100 unit/mL injection in the morning and in the evening. Take before meals.08/28/2025Discontinued (Duplicate order) lisinopriL (PRINIVIL,ZESTRIL) 5 mg tablet Take 1 tablet (5 mg total) by mouth.Discontinued sulfamethoxazole-trimethoprim (BACTRIM DS) 800-160 mg per tablet Take 1 tablet by mouth two times per day for 14 days, subsequently take 1 tablet every evening for 28 daysDiscontinued(Stop Taking at Discharge) Active Problems ProblemNoted DateDiagnosed DateAcute kidney injury superimposed on stage 3b chronic kidney wfeodtp6608/29/2025AD S/P percutaneous coronary angioplasty 08/29/20254969Yxcfjqawpzrs03/12/2025Normal anion gap metabolic zqmghezl52/12/2025 Orthostatic gqxpyix4608/29/2025Diarrhea of presumed infectious qtbvpc2908/29/2025 History of ventricular gzxvyzlbkid38/12/2025rthritis, azsdlrgxpi75/03/2025OSA on CPAP01/18/2025Orthostatic wwpzixdjz96/12/2024hronic bronchitis, mucopurulent 03/12/2024GERD (gastroesophageal reflux disease)03/12/2024olyneuropathy due to type 2 diabetes hzjwqbex57/25/2024Type 2 diabetes zzxndkaf37/25/2024nemia 3Benign prostatic hyperplasia with lower urinary tract symptoms 08/14/2022Generalized anxiety rszlhvyx53/07/2022Benign essential hypertension 07/30/2014COPD (chronic obstructive pulmonary disease)01/27/2013Recurrent major depressive disorder, in partial otvxtnzxy51/12/2013 Resolved Problems ProblemNoted DateDiagnosed DateResolved DateNonsustained ventricular tachycardia Encounters DateTypeDepartmentCare PvdxTgvwpaxwshk88/11/2025 6:41 PM EDT - 08/30/2025 3:45 PM EDTHospital Encounter [facility] [address] [place] [id number] Franko Colindres MD Banerjee, Sunita, MD Asif, Muhamid M, MD Syncope, unspecified syncope type (Primary Dx); Hyperkalemia Discharge Disposition: Home08/28/2025Travelfrom Last 3 Months Social History Tobacco UseTypesPacks/DayYears UsedDateSmoking Tobacco: NeverSmokeless Tobacco: Never Tobacco Cessation:Counseling Given: Not Answered Alcohol UseStandard Drinks/WeekCommentsNot Currently0 (1 standard drink = 0.6 oz pure alcohol)ChildcareAnswerDate AhwvpvfrEgrzivlhnUtrxqjv10/12/2019Employment AnswerDate TjnbfubwFpvicnzexrUuxzbsf26/12/2019Hunger ScreeningAnswerDate RecordedWithin the past 12 months we worried whether our food would run out before we got money to buy more.Never True08/30/2025Within the past 12 months the food we bought just didn't last and we didn't have money to get more.Never True08/30/2025Sex and Gender InformationValueDate RecordedSex Assigned at Not on fileLegal YztBzcj6306/23/2015 11:23 AM EDTGender IdentityNot on fileSexual OrientationNot on file Last Filed Vital Signs Vital SignReadingTime TakenCommentsBlood Cmfijvza381/5208/30/2025 11:20 AM EDT Mkbls792908/30/2025 11:20 AM TWKOpdtiiawwkn55.9 ??C (98.4 ??F)08/30/2025 11:20 AM EDTRespiratory Assw5322 11:20 AM EDTOxygen Omufpwarwi20%08/30/2025 11:20 AM EDTInhaled Oxygen Concentration--Gzwamq646.3 kg (229 lb 14.4 oz)08/28/2025 10:25 PM DEYXvrjyf796.9 cm (6' 0.01 )08/28/2025 10:25 PM EDTBody Mass Index31.17 08/28/2025 10:25 PM EDT Plan of Treatment Health MaintenanceDue DateLast DoneCommentsDepression Ntzqfviuy60/17/1960 DTaP,Tdap and Td Vaccines (1 - Tdap)1967Fall Risk Kfufbykbn26/17/2013 Zoster (Shingles) Vaccine (3 of 3), 10/04/2011COVID-19 Vaccine ( season), 10/11/2023, 09/28/2022, Additional history existsInfluenza Kjplbjx66/05/2024, 10/11/2023, 09/05/2022, Additional history existsTobacco Afcvtaqcs18 Goals GoalPatient Goal TypeAssociated ProblemsRecent ProgressPatient-Stated?Author home Magy Díaz LSW Note: Evaluation of progress towards goal: discharging today Medical Devices Not on file Procedures Procedure NamePriorityDate/TimeAssociated DiagnosisCommentsPOTASSIUMRoutine 08/30/2025 1:07 PM EDT ECHO COMPLETE W JWZGXZNQNwwucuj18/13/2025 1:00 PM EDT CBC WITH AUTO XHYLEVWQIGMDMqkzvdq40/13/2025 4:23 AM EDT QBYXFJEXJHtcqgfv01/13/2025 4:23 AM EDT COMPREHENSIVE METABOLIC PPEUPIyugpxc56/13/2025 4:[address] ABDOMEN WO OFFLNiimmtt39/12/2025 1:48 PM EDT OSMOLALITY, MBVRZNmewqjv19/12/2025 12:05 PM EDT GNKWOMBLIKZkuzgtz99/12/2025 12:05 PM EDT UREA RANDOM, BDXGWOabmuov73/12/2025 12:05 PM EDT SODIUM, URINE, GJDRZQNyebmaz44/12/2025 12:05 PM EDT URINE CREATININE,AZOQJZQxbnrgg93/12/2025 12:05 PM EDT PROTEIN, URINE, OSXEZLEydweeg24/12/2025 12:05 PM EDT EXTRA TUBES BLUE PUJHbjecmo61/12/2025 4:19 AM EDT C-REACTIVE PROTEINAdd-On08/29/2025 4:19 AM EDT EXTRA GNVYJApkgyad68/12/2025 4:19 AM EDT CBC WITH AUTO ATOHMYYNSVEOVdduxcj49/12/2025 4:19 AM EDT YCOLWBKEUMwvdzzv65/12/2025 4:19 AM EDT COMPREHENSIVE METABOLIC RBGVZPjxnzby56/12/2025 4:19 AM EDT ECG 12-YBBQZUMX79/11/2025 9:51 PM EDT TROP I, HIGH SENSITIVITY 1 ISPVILHY69/11/2025 8:21 PM EDT EXTRA TUBES BLUE VYIOjwrvln99/11/2025 7:22 PM EDT EXTRA VPMKKHgbtkwm27/11/2025 7:22 PM EDT TROPONIN I, HIGH SENSITIVITY 0 FAYWBGCK74/11/2025 7:18 PM EDT LECVYBJGNFYCY92/11/2025 7:18 PM EDT TROPONIN I, HIGH SENSITIVITY 0 VGRIINYN73/11/2025 7:18 PM EDT COMPREHENSIVE METABOLIC RITRJRQCX28/11/2025 7:18 PM EDT CBC WITH AUTO UNLHNJGKIUJYPOGK04/11/2025 7:18 PM EDT XR CHEST 1 LGLYUF0408/28/2025 7:03 PM EDT PM ED CRITICAL HIDAZhzdlvh95/11/2025 6:53 PM EDT ECG 12-TDASWDJP62/11/2025 6:47 PM EDTfrom Last 3 Months Results * Potassium (08/30/2025 1:07 PM EDT)ComponentValueRef RangeTest MethodAnalysis TimePerformed AtPathologist SignaturePOTASSIUM4.93.5 - 5.0 mmol/L1 1:37 PM EDTPROMEDICA EAST LOS ANGELES DOCTORS HOSPITALpecimen (Source)Anatomical Location / LateralityCollection Method / VolumeCollection TimeReceived Time BloodVenous blood / UnknownVenipuncture / Qavtrwo9208/30/2025 1:07 PM EDT 08/30/2025 1:13 PM EDT Narrative Authorizing ProviderResult TypeResult StatusTaeler Rnoan BULK PLANT SUPERVISOR-CNPLAB BLOOD ORDERABLESFinal ResultPerforming OrganizationAddressCity/State/ZIP CodePhone Number [facility] [address] [place] [address], * Echo complete W/ contrast (08/30/2025 1:00 PM EDT)ComponentValueRef RangeTest MethodAnalysis TimePerformed AtPathologist SignatureLVOT stroke qupznj325.49ml XCELERALV Systolic Kaaozf92.94vXEOYREOSMZ06%TCHQCNDLF9185 - 44 %XCELERALV Diastolic Mlqead000.61bZRGRLTAQHELGm1.367.03 - 9.77 cmXCELERALVIDs3.874.08 - 6.18 cmXCELERAIVS1.380.6 - 1.1 cmXCELERAPW1.220.6 - 1.1 cmXCELERALVOT diameter 2.78fuSENWVOCJYC6.28cm/sXCELERAMV TDI E' (medial)4.54cm/sXCELERAE/A ratio1.14 XCELERAE wave deceleration atrp079.00msecXCELERAMV Peak E Xlk307.00cm/sXCELERA MV Peak A Srz012.00cm/sXCELERALA size5.80cmXCELERAAortic root3.00cmXCELERALA yslboo10.99df1OKEHYMJNIRHC2.80cmXCELERAAV peak ahr924.00cm/sXCELERALVOT peak vel1.22m/sXCELERAAV VTI43.90cmXCELERALVOT peak VTI29.00cmXCELERAAV mean gradient8.00mmHgXCELERAAV peak tbsxfhib47.10mmHgXCELERAAV valve area2.74 XCELERAValve area - Index1.2XCELERAMV pressure 1/2 time66.00msXCELERAMR max vel4.40m/sXCELERAMV valve area p 1/2 method3.37we5ZUOYRTVCF Peak Vel2.6m/s XCELERATR peak ppisgngq95.46mmHgXCELERAPV peak gradient3.53mmHgXCELERALV ESV A2C90.10mLXCELERALV ESV A4C95.50mLXCELERALV RWT 2D45.52XCELERAEcho EF Jdceccwcq38%XCELERAAV Velocity Ratio0.66XCELERALeft Ventricle Mass 292.988476576829231tYZFJRGEOrcuuuwvgglpakyx Septum Diastolic Thickness by 2D 13.908362466274894ucRDZNHTJTTJY71.6cm/sXCELERARA area25.1hq2FPLUUOZHMKHQV-6.05 XCELERAZLVIDD-4.36XCELERAEnergy loss index15.97XCELERAAnatomical Region LateralityModalityChestN/AUltrasoundSpecimen (Source)Anatomical Location / LateralityCollection Method / VolumeCollection TimeReceived Time Narrative 08/30/2025 8:06 PM EDT Left Ventricle: Left ventricle appears normal in size. There is mild concentric increased wall thickness/hypertrophy. Systolic function is normal with an ejection fraction of 60-65%. No obvious regional wall motion abnormalities. Grade II diastolic dysfunction (pseudonormal) is present. Lateral E' is 9.28 cm/s. Medial E' is 4.54 cm/s. ?Right??Ventricle: Right ventricle was not well visualized. Right ventricular size is mildly dilated. Systolic function is normal. Normal tricuspid annular plane systolic excursion. ?Left??Atrium: Left atrium is mildly dilated. Left Ventricle Left ventricle appears normal in size. There is mild concentric increased wall thickness/hypertrophy. Systolic function is normal with an ejection fraction of 60-65%. No obvious regional wall motion abnormalities. Grade II diastolic dysfunction (pseudonormal) is present. Lateral E' is 9.28 cm/s. Medial E' is 4.54 cm/s. Right Ventricle Right ventricle was not well visualized. Right ventricular size is mildly dilated. Systolic function is normal. Normal tricuspid annular plane systolic excursion. Normal systolic excursion velocity by TDI (>9.5 cm/s). Left Atrium Left atrium is mildly dilated. Right Atrium Right atrium was not well visualized. Right atrium is mildly dilated. The right atrial area is 25.1cm2. IVC/SVC IVC appears normal and IVC is not well visualized. There is normal collapse with deep inspiration. Mitral Valve Mitral valve structure is normal. There is no regurgitation or stenosis. Tricuspid Valve Tricuspid valve appears to be normal. There is mild regurgitation. There is no evidence of tricuspid valve stenosis. Aortic Valve The aortic valve is trileaflet. The leaflets exhibit normal excursion. There is mild sclerosis. There is no regurgitation or stenosis. Pulmonic Valve Pulmonic valve structure is grossly normal. There is trace to mild regurgitation. There is no evidence of pulmonic valve stenosis. The peak gradient is 3.53 mmHg. Ascending Aorta The aortic root is normal in size. Pericardium There is no pericardial effusion. Study Details A complete echo was performed using complete 2D, color flow Doppler and spectral Doppler. Definity study was performed. Overall the study quality was adequate. The study had technical difficulties. The study was difficult due to patient's poor acoustic windows. Wall Scoring Baseline Score Index: 1.00 The left ventricular wall motion is normal. Authorizing ProviderResult TypeResult StatusSunikrystal Hernandez [facility] [place] ECHO ORDERABLES Final Result * (ABNORMAL) CBC auto differential (08/30/2025 4:23 AM EDT) Only the most recent of3 resultswithin the time period is included. ComponentValueRef RangeTest MethodAnalysis TimePerformed AtPathologist Signature WBC7.04 - 11 x10E9/L1 5:26 AM EDADENA [facility]AL [facility]ICAL CENTERRBC Count3.71(L)4.1 - 5.7 X10E12/L1 5:26 AM EDADENA [facility]ICAL CENTERHemoglobin11.5(L)13 - 17 g/dL08/30/2025 5:26 AM EDTPMANSFIELD HOSPITALHematocrit33.6(L)39 - 50 %08/30/2025 5:26 AM EDGRE[facility]ITALV9180 - 100 fL08/30/2025 5:26 AM EDADENA REGIONAL MEDICAL CENTERMCH31.027 - 34 pg08/30/2025 5:26 AM [facility]ENTERMCHC34.332 - 36 g/dL08/30/2025 5:26 AM EDTPMANSFIELD HOSPITALRDW14.111.5 - 15 %08/30/2025 5:26 AM EDADENA REGIONAL MEDICAL CENTERPlatelet Ztobz582059 - 450 X10E9/L1 5:26 AM EDT [facility]ITALMPV9.87 - 12 fL08/30/2025 5:26 AM EDT [facility]ITALNeutrophils %51.9%08/30/2025 5:26 AM EDT [facility]ITALLymphocytes %31.2%08/30/2025 5:26 AM EDT [facility]ITALMonocytes %9.4%08/30/2025 5:26 AM EDT [facility]ITALEosinophils %6.3%08/30/2025 5:26 AM EDT [facility]ITALBasophils %1.2%08/30/2025 5:26 AM EDT [facility]ITALNeutrophils Absolute (A)3.61.5 - 6.6 10*3/uL 08/30/2025 5:26 AM [facility] CENTERLymphocytes Absolute2.2 1.0 - 3.5 10*3/uL08/30/2025 5:26 AM [facility] Monocytes Absolute0.70.0 - 0.9 10*3/uL08/30/2025 5:26 AM EDADENA REGIONAL MEDICAL CENTEREosinophils Absolute0.40.0 - 0.4 10*3/uL08/30/2025 5:26 AM EDT [facility]Basophils Absolute0.10.0 - 0.2 10*3/uL 08/30/2025 5:26 AM [facility] CENTERDifferential Type AUTOMATED LRCLNNHILPQF45/13/2025 5:26 AM [facility] Specimen (Source)Anatomical Location / LateralityCollection Method / Volume Collection TimeReceived TimeBloodVenous blood / UnknownVenipuncture / Unknown 08/30/2025 4:23 AM EDT1 5:20 AM EDT Narrative Authorizing ProviderResult TypeResult StatusStephanie L Veselka [employer] SUPERVISOR-CNPLAB BLOOD ORDERABLESFinal ResultPerforming OrganizationAddressCity/State/ZIP Code Phone Number [facility] [address] [place] [address], * Magnesium (08/30/2025 4:23 AM EDT) Only the most recent of3 resultswithin the time period is included. ComponentValueRef RangeTest MethodAnalysis TimePerformed AtPathologist Signature MAGNESIUM2.21.8 - 2.6 mg/dL08/30/2025 5:42 AM [facility]ITALpecimen (Source)Anatomical Location / LateralityCollection Method / VolumeCollection TimeReceived TimeBloodVenous blood / UnknownVenipuncture / Ngvgdnf2608/30/2025 4:23 AM EDT1 5:20 AM EDT Narrative Authorizing ProviderResult TypeResult StatusStephanie L Veselka [employer] SUPERVISOR-CNPLAB BLOOD ORDERABLESFinal ResultPerforming OrganizationAddressCity/State/ZIP Code Phone Number [facility] [address] [place] [address], * (ABNORMAL) Comprehensive metabolic panel (08/30/2025 4:23 AM EDT) Only the most recent of3 resultswithin the time period is included. ComponentValueRef RangeTest MethodAnalysis TimePerformed AtPathologist Signature PESTSR009956 - 146 mmol/L1 5:42 AM [facility] CENTERPOTASSIUM5.2(H)3.5 - 5.0 mmol/L1 5:42 AM EDADENA REGIONAL MEDICAL CENTERCHLORIDE10598 - 109 mmol/L1 5:42 AM [facility] CENTERCARBON RQRJHVA49(L)22 - 32 mmol/L1 5:42 AM EDT [facility]ITALANION SFK794 - 15 mmol/L1 5:42 AM [facility] CENTERBLOOD UREA CIGTBFTB12(H)5 - 27 mg/dL 08/30/2025 5:42 AM [facility] CENTERCREATININE1.76(H)0.70 - 1.20 mg/dL08/30/2025 5:42 AM [facility] CENTERComment: METHOD TRACEABLE TO IDMS YLACBISXAITUXZF289(H)65 - 99 mg/dL08/30/2025 5:42 AM [facility] CENTERCALCIUM8.68.5 - 10.5 mg/dL08/30/2025 5:42 AM [facility] CENTERTOTAL PROTEIN6.06.0 - 8.0 g/dL 08/30/2025 5:42 AM [facility] CENTERALBUMIN3.73.2 - 5.3 g/dL08/30/2025 5:42 AM [facility] CENTERALKALINE WSPGLIESOLE9269 - 130 U/L1 5:42 AM [facility]ENTERAST14<=41 U/L1 5:42 AM [facility] ALT13<=40 U/L10/ 5:42 AM [facility] BILIRUBIN,TOTAL0.80.3 - 1.2 mg/dL08/30/2025 5:42 AM [facility] CENTEREGFR Non-Race Cxlkzfgvq44(L)>=60 ml/min/1.73sq.m1 5:42 AM [facility] CENTERComment: eGFR not reported due to non-numeric value for Creatinine. Reported eGFR is based on the CKD-EPI 2020 equation that does not use a race coefficient. Specimen (Source)Anatomical Location / LateralityCollection Method / Volume Collection TimeReceived TimeBloodVenous blood / UnknownVenipuncture / Unknown 08/30/2025 4:23 AM EDT1 5:20 AM EDT Narrative Authorizing ProviderResult TypeResult StatusStephanie L Sonia B[employer] SUPERVISOR-CNPLAB BLOOD ORDERABLESFinal ResultPerforming OrganizationAddressCity/State/ZIP Code Phone Number [facility] [address] [place] [address], [place] * CT abdomen without contrast (08/29/2025 1:48 PM EDT)Anatomical Region LateralityModalityBody, Abdomen, Body CoveraN/AComputed TomographySpecimen (Source)Anatomical Location / LateralityCollection Method / VolumeCollection TimeReceived Time08/29/2025 3:57 PM EDT Narrative 08/29/2025 3:[address] ABDOMEN WO CONT Clinical history:neto and diarrhea ??abdominal pain Comparison: None. TECHNIQUE: CT abdomen performed [...] by John Membreno MD on 08/29/2025 3:59 PM Procedure Note John Membreno MD - 08/29/2025 CT ABDOMEN WO CONT Clinical history:neto and diarrhea abdominal pain Comparison: None. TECHNIQUE: CT abdomen performed without contrast with axial coronalsagittal imaging. Findings: No pleural or pericardial effusion and lung bases. There is no lower lung consolidation seen. Assessment of the abdominal viscera is compromised by absence of IVcontrast. The entirety of the colon is not assessed were evaluated on thisevaluation the abdomen. Gallbladder is present with small gallstone. Noncontrast assessment of the liver, adrenal glands, pancreas and spleenappear unremarkable. No renal collecting system dilatation. Small nonobstructing right renal calculus. At least partial duplication ofthe left kidney. Atherosclerotic abdominal aorta. No enlarged mesenteric or retroperitoneal lymph nodes. No vertebral body loss. Degenerative change of the thoracolumbar lumbarspine with prior lumbar laminectomy. Impression: No definitive acute abdominal process identified within the limitations ofthe noncontrast examination. Cholelithiasis. Right nephrolithiasis. All CT scans at this facility use dose modulation, iterativereconstruction, and/or weight based dosing when appropriate to reduceradiation dose to as low as reasonably achievable. Finalized by John Membreno MD on 08/29/2025 3:59 PM Authorizing ProviderResult TypeResult StatusJogerardo Castellanos BULK PLANT SUPERVISOR-CNPIMG CT ORDERABLESFinal Result * Urine Creatinine,random (08/29/2025 12:05 PM EDT)ComponentValueRef RangeTest MethodAnalysis TimePerformed AtPathologist SignatureURINE CREATININE,RDM88.99 mg/dL08/29/2025 12:34 PM EDTPROMEDTRI-CITY MEDICAL CENTERpecimen (Source)Anatomical Location / LateralityCollection Method / VolumeCollection TimeReceived TimeUrineUrine / Jctkmwz4408/29/2025 12:05 PM EDT1 12:12 PM EDT Narrative Authorizing ProviderResult TypeResult StatusHimanshu Castellanos B[employer] PL[employer] SUPERVISOR-CNPURINE ORDERABLESFinal ResultPerforming OrganizationAddressCity/State/ZIP CodePhone Number [facility]ALLuis [facility] [address] [place] [address], [place] * Urea random, urine (08/29/2025 12:05 PM EDT)ComponentValueRef RangeTest Method Analysis TimePerformed AtPathologist SignatureURINE UREA NITROGEN,ZOGLVX654 mg/dL08/29/2025 9:43 PM [facility] LABORATORYSpecimen (Source)Anatomical Location / LateralityCollection Method / VolumeCollection TimeReceived EvcdFtxdj53/12/2025 12:05 PM EDT1 12:12 PM EDT Narrative Authorizing ProviderResult TypeResult Nicolle Castellanos B[employer]K PLANT SUPERVISOR-CNPURINE ORDERABLESFinal ResultPerforming OrganizationAddressCity/State/ZIP CodePhone Number [facility] [address] [place] [address], [place] [phone] * Sodium, urine, random (08/29/2025 12:05 PM EDT)ComponentValueRef RangeTest MethodAnalysis TimePerformed AtPathologist SignatureURINE SODIUM,TSLMLZ00 mmol/L1 9:43 PM [facility] LABORATORYSpecimen (Source)Anatomical Location / LateralityCollection Method / VolumeCollection TimeReceived MwhaHmesx70/12/2025 12:05 PM EDT1 12:12 PM EDT Narrative Authorizing ProviderResult TypeResult StatusHimanshu Castellanos B[employer] SUPERVISOR-CNPURINE ORDERABLESFinal ResultPerforming OrganizationAddressCity/State/ZIP CodePhone Number [facility] [address] [place] [address], [place] [phone] * Protein, urine, random (08/29/2025 12:05 PM EDT)ComponentValueRef RangeTest MethodAnalysis TimePerformed AtPathologist SignatureURINE PROTEIN, RANDOM (MG/L)60<120 mg/L1 12:38 PM EDAD[facility] Specimen (Source)Anatomical Location / LateralityCollection Method / Volume Collection TimeReceived OitgDqkre80/12/2025 12:05 PM EDT1 12:12 PM EDT Narrative Authorizing ProviderResult TypeResult StatusHimanshu Castellanos B[employer] SUPERVISOR-CNPURINE ORDERABLESFinal ResultPerforming OrganizationAddressCity/State/ZIP CodePhone Number [facility] [address] [place] [address], [place] * Osmolality, urine (08/29/2025 12:05 PM EDT)ComponentValueRef RangeTest Method Analysis TimePerformed AtPathologist SignatureURINE ILJQHYVOYZ938277 - 1,300 mOsm/kg H208/29/2025 9:50 PM [facility] LABORATORYSpecimen (Source)Anatomical Location / LateralityCollection Method / VolumeCollection TimeReceived CsjnIlici17/12/2025 12:05 PM EDT1 12:12 PM EDT Narrative Authorizing ProviderResult TypeResult StatusHimanshu Castellanos BULK PLANT SUPERVISOR-CNPURINE ORDERABLESFinal ResultPerforming OrganizationAddressCity/State/ZIP CodePhone Number [facility] [address] [place] [address], [place] [phone] * Urinalysis (08/29/2025 12:05 PM EDT)ComponentValueRef RangeTest MethodAnalysis TimePerformed AtPathologist FqgiphnxkOYXHPLksxgnJjpnih17/12/2025 12:29 PM EDT [facility]ITALTURBIDITYClearClear08/29/2025 12:29 PM EDT [facility]ITALPECIFIC GRAVITY1.0101.003 - 1.035 08/29/2025 12:29 PM EDTPMANSFIELD HOSPITALNITRITENegative Qtqutfkl61/12/2025 12:29 PM EDADENA REGIONAL MEDICAL CENTERPH,URINE6.0 5.0 - 8.510 12:29 PM [facility] CENTERLEUKOCYTE BRCCSEKDFzgkzgijGxjmxvyl08/12/2025 12:29 PM EDTPMANSFIELD HOSPITALPROTEINNegativeNegative08/29/2025 12:29 PM EDAD[facility] CENTERKETONES (URINE)XpzazucfHpouywms89/12/2025 12:29 PM EDT [facility]UROBILINOGEN0.2 eu/dL0.2 eu/dL, 1.0 eu/dL 08/29/2025 12:29 PM EDTPMANSFIELD HOSPITALBILIRUBIN (URINE) AhatojgmUquhvxjd63/12/2025 12:29 PM [facility] BLOOD/RSLKzjofygzWblthgxh67/12/2025 12:29 PM EDAD[facility] CENTERGLUCOSE (URINE)NegativeNegative, 250 mg/dL08/29/2025 12:29 PM EDT [facility]imen (Source)Anatomical Location / LateralityCollection Method / VolumeCollection TimeReceived TimeUrineUrine / Qttziha8908/29/2025 12:05 PM EDT1 12:12 PM EDT Narrative Authorizing ProviderResult TypeResult StatusJogerardo Castellanos BULK PLANT SUPERVISOR-CNPURINE ORDERABLESFinal ResultPerforming OrganizationAddressCity/State/ZIP CodePhone Number [address] [address], [place] * Light Blue Top (08/29/2025 4:19 AM EDT) Only the most recent of2 resultswithin the time period is included. ComponentValueRef RangeTest MethodAnalysis TimePerformed AtPathologist Signature Extra TubeAuto Mfaellhn35/12/2025 6:01 AM [facility] Specimen (Source)Anatomical Location / LateralityCollection Method / Volume Collection TimeReceived TimeBloodVenous blood / Ettwxbu6408/29/2025 4:19 AM EDT 08/29/2025 4:57 AM EDT Narrative Authorizing ProviderResult TypeResult StatusSushandra GOETZ BLOOD ORDERABLESFinal ResultPerforming OrganizationAddressCity/State/ZIP CodePhone Number [address] [place] [address], [place] * C-reactive protein (08/29/2025 4:19 AM EDT)ComponentValueRef RangeTest Method Analysis TimePerformed AtPathologist SignatureC REACTIVE PROTEIN<0.5<=0.7 mg/dL08/29/2025 1:09 PM EDOH[facility]ITALpecimen (Source)Anatomical Location / LateralityCollection Method / VolumeCollection TimeReceived TimeBloodVenous blood / UnknownVenipuncture / Lhcccjt1708/29/2025 4:19 AM EDT1 4:55 AM EDT Narrative Authorizing ProviderResult TypeResult StatusNayeli Hernandez MDLAB BLOOD ORDERABLESFinal ResultPerforming OrganizationAddressCity/State/ZIP CodePhone Number [facility] [address] [place] [address], [place] * Repeat ECG 12 lead (08/28/2025 9:51 PM EDT) Only the most recent of2 resultswithin the time period is included. Specimen (Source)Anatomical Location / LateralityCollection Method / Volume Collection TimeReceived Time08/28/2025 9:51 PM EDT Narrative [facility] - 08/29/2025 1:26 PM EDT Authorizing ProviderResult TypeResult StatusRachel Jhon Webb APRN-CNPECG ORDERABLESFinal ResultPerforming OrganizationAddressCity/State/ZIP CodePhone Number [facility] * Troponin I, High Sensitivity 1 Hour (08/28/2025 8:21 PM EDT)ComponentValueRef RangeTest MethodAnalysis TimePerformed AtPathologist SignatureTROPONIN I, HIGH SENSITIVITY8<21 ng/L1 8:50 PM [facility] Specimen (Source)Anatomical Location / LateralityCollection Method / Volume Collection TimeReceived TimeBloodVenous blood / UnknownVenipuncture / Unknown 08/28/2025 8:21 PM EDT1 8:23 PM EDT Narrative Authorizing ProviderResult TypeResult StatusRachel D Jon B[employer]K PLANT SUPERVISOR-CNPLAB BLOOD ORDERABLESFinal ResultPerforming OrganizationAddressCity/State/ZIP CodePhone Number [address] [place] [address], [place] * Troponin I, High Sensitivity 0 Hour (08/28/2025 7:18 PM EDT)ComponentValueRef RangeTest MethodAnalysis TimePerformed AtPathologist SignatureTROPONIN I, HIGH SENSITIVITY7<21 ng/L1 7:54 PM EDTPROM[facility] Specimen (Source)Anatomical Location / LateralityCollection Method / Volume Collection TimeReceived TimeBloodVenous blood / UnknownVenipuncture / Unknown 08/28/2025 7:18 PM EDT1 7:20 PM EDT Narrative Authorizing ProviderResult TypeResult StatusRacheshante Webb B[employer]K PLANT SUPERVISOR-CNPLAB BLOOD ORDERABLESFinal ResultPerforming OrganizationAddressCity/State/ZIP CodePhone Number [address] [place] [address], [place] * X-ray chest 1 view (08/28/2025 7:03 PM EDT)Anatomical RegionLateralityModality Body, ChestN/AComputed RadiographySpecimen (Source)Anatomical Location / LateralityCollection Method / VolumeCollection TimeReceived Time08/28/2025 7:05 PM EDT Narrative 08/28/2025 7:05 PM EDT Procedure: Chest x-ray performed Number of views:1 History:Syncope Comparison:None Findings: The heart and lungs show no acute findings, and the mediastinum and yodit are grossly negative . Impression: 1. ??No acute change. Finalized by Jax Prakash MD on 08/28/2025 7:05 PM Procedure Note Jax Prakash MD - 08/28/2025 Procedure: Chest x-ray performed Number of views:1 History:Syncope Comparison:None Findings: The heart and lungs show no acute findings, and the mediastinumand yodit are grossly negative . Impression: 1. No acute change. Finalized by Jax Prakash MD on 08/28/2025 7:05 PM Authorizing ProviderResult TypeResult StatusRachel John Webb B[employer]K PLANT SUPERVISOR-CNPIMG DIAGNOSTIC IMAGING ORDERABLESFinal Result * Critical Care (08/28/2025 6:53 PM EDT) Franko Aldana MD - 08/28/2025 6:53 PM EDT Franko Colindres MD 08/28/2025 11:57 PM Critical Care Performed by: Linda Webb APRN-SENIOR ELECTRICAL CONTROLS ENGINEER Authorized by: Franko Colindres MD ?? Critical care provider statement: ??Critical care time (minutes): ??35 ??Critical care was necessary to treat or prevent imminent or life-threatening deterioration of the following conditions: ??Metabolic crisis, dehydration and renal failure ??Critical care was time spent personally by me on the following activities: ??Evaluation of patient's response to treatment, examination of patient, obtaining history from patient or surrogate, ordering and performing treatments and interventions, ordering and review of laboratory studies, ordering and review of radiographic studies, re-evaluation of patient's condition and review of old charts ??I assumed direction of critical care for this patient from another provider in my specialty: yes ?Care discussed with: admitting provider ?? Authorizing ProviderResult TypeResult Terrance Colindres MDPROCEDURE/MINOR SURGICAL ORDERABLESFinal Result from Last 3 Months Insurance Advance Directives * Full Code (Latest Code Status on File) Date ActivatedDate QwxardrekhlBhjxgici53/11/2025 9:09 08/30/2025 6:19 PM Care Teams Team MemberRelationshipSpecialtyStart DateEnd Date Cristobal Michel DO [address] [place] [address] PCP - GeneralInternal Xrxwudic86/11/25
--- OUTSIDE RECORDS SUMMARY | 2025-09-16 12:42 | XMS_ITS | Clinical Summary ---
Author Organization [facility] Address [address] [place] [address] Care Team Providers Care Grease Remover Name Role Phone Cristobal Michel Primary Care Provider [phone] Allergies Active AllergyReactionsCriticalityNoted DateCommentsHydralazineOther, EulludmsygzpChl73/07/2022 Other reaction(s): chest pain DxidhzllbxNydjaiae76/10/2025StatinsOther,Cckvzhk0301/18/2025 Other Reaction(s): muscle ache Medications MedicationSigDispense QuantityRefillsLast FilledStart DateEnd DateStatus acetaminophen (Tylenol Extra Strength) 500 MG tablet 500 mg every 6 (six) hoursActive alfuzosin ER (Uroxatral) 10 MG 24 hr tablet TAKE 1 TABLET BY MOUTH IN THE MORNING, DO NOT CRUSH, CHEW, OR SPLIT11/05/2024 Active Alpha-Lipoic Acid 200 MG capsule Twice daily02/10/2024ctive amLODIPine (Norvasc) 5 MG tablet Take 1 tablet by mouth Daily07/29/2024ctive ascorbic acid (Vitamin C) 500 MG tablet Take 1 tablet by mouth in the morning.Active aspirin 81 MG EC tablet Take 1 tablet by mouth DailyActive evolocumab (Repatha) 140 MG/ML injection INJECT 1 ML EVERY 2 WEEKS BY SUBCUTANEOUS ROUTE FOR 90 DAYS.02/10/2024ctive ezetimibe (Zetia) 10 MG tablet Take 1 tablet by mouth DailyActive insulin NPH, Isophane, (HumuLIN N,NovoLIN N) 100 UNIT/ML injection Inject under the skin 2 (two) times a day before mealsActive lisinopril 10 MG tablet Take 1 tablet by mouth Daily03/09/2024ctive Loratadine 10 MG capsule Take 10 mg by mouth08/03/2024ctive ranolazine (Ranexa) 500 MG 12 hr tablet Take 1 tablet by mouth in the morning and 1 tablet before bedtime.Active tadalafil (Cialis) 5 MG tablet Daily as jkxtvi8202/10/2024ctive Testosterone 1.62 % gel PLACE 2 PUMPS ON THE SKIN ONCE EVERY OFSMIDU1702/10/2024ctive Myrbetriq 50 MG 24 hr tablet TAKE 1 TABLET (50 MG) BY MOUTH ONCE DAILY DIRECTED.11/10/2024ctive Calcium Carb-Cholecalciferol (CALCIUM 500 +D PO) Take by mouthActive Multiple Vitamins-Minerals ([facility] PO) Take by mouthActive fluticasone (Flonase) 50 MCG/ACT nasal spray Indications:ETD (Eustachian tube dysfunction), bilateralAdminister 2 sprays into each nostril Daily Shake gently. Before first use, prime pump. After use, clean tip and replace cap. 48 g ctive metoprolol tartrate (Lopressor) 25 MG tablet Take by mouth 2 (two) times a dayActive Active Problems ProblemNoted DateDiagnosed DateNonsustained ventricular kajnfpndiyz07/02/2025 Arthritis, zusstpylnj94/03/2025ute sanhzu1201/18/2025History of heart attack 01/18/2025High tpbiwhqybbe66/03/2025Medicare annual wellness visit, subsequent 01/18/2025OSA (obstructive sleep apnea)01/18/20252939Yvthrsye88/03/2025Orthostatic /12/2024Incomplete bladder vextptdj08/27/2024Urge urinary vygkakpqhxgu95/27/2024ystitis vwzlhhs7103/17/2024ody mass index (BMI) 32.0-32.9, adult03/12/2024arotid bruit03/12/2024 Overview (01/18/2025): Carotid US: < 50% B/L - 12/2023 Chronic bronchitis, rcrcwhujbdbm77/25/2024GERD (gastroesophageal reflux disease) 03/12/2024Lumbar ibwycyygbjf33/25/2024Nicotine dependence, cigarettes, in mitvbjbxj80/25/2024Other obesity due to excess doievwek88/25/2024Type 2 diabetes mellitus with diabetic rnwfnuodgudrmf35/25/2024Spinal stenosis, lumbar region with neurogenic gywcwieqgnot39/04/6576Xjrwzm17/18/2023arpal tunnel syndrome 3Chronic kidney cvmvopu9606/04/2023PAP (continuous positive airway pressure) ptzbfdeawv37/18/2023Enlarged tdtwajpe83/18/2023History of open heart dhssloy9106/04/2023Irregular heart dgnrvj6206/04/2023enign prostatic hyperplasia with lower urinary tract jtkahddf97/27/2022Erectile ostgxmhdein09/27/2022 Hypogonadism in male08/14/2022Lung zkipps7808/14/2022 Overview (01/18/2025): CT: 7mm RML - 02/2023, 7mm RML - 08/2024 Suprapubic kwbjtrgyoc69/27/2022Chronic ikmxiou9807/25/2022Generalized ischemic myocardial olhvlxhmmmz08/07/2022isorder of lipid qpepphnovm87/14/2014enign essential uydwbzjrnhdt28/12/2014Coronary arteriosclerosis of iliamna coronary artery of transplanted heart07/21/2014DOE (dyspnea on exertion)02/24/2013Chronic obstructive lung wytubde2201/27/2013Depressive /12/2013Gallstone 01/27/2013Generalized anxiety lqjntrme24/12/2013Kidney stone01/27/2013Seizure 01/27/2013 Family History Medical HistoryRelationNameCommentsCancerFatherVernon ClausHearing lossMother Judith ClausHeart failureMotherClara ClausRelationNameStatusCommentsFatherVernon ClausDeceasedMotherClara ClausDeceased Social History Tobacco UseTypesPacks/DayYears UsedDateSmoking Tobacco: HgecheZrzfvcxndk036 11/18/1963 - 10/12/1983Smokeless Tobacco: Never Tobacco Cessation:Counseling Given: Not Answered Alcohol UseStandard Drinks/WeekCommentsNever0 (1 standard drink = 0.6 oz pure alcohol)Sex and Gender InformationValueDate RecordedSex Assigned at BirthNot on fileLegal DdwYism3701/30/2023 8:12 PM EDTGender IdentityNot on fileSexual OrientationNot on file Last Filed Vital Signs Vital SignReadingTime TakenCommentsBlood Utcqphok082/62002/24/2025 1:25 PM EDT Xycuy3365/09/2025 1:25 PM EDTTemperature--Respiratory Rate--Oxygen Saturation-- Inhaled Oxygen Concentration--Ktlwcy750 kg (241 lb)02/24/2025 1:25 PM EDTHeight 182.9 cm (6')02/24/2025 1:25 PM EDTBody Mass Index32.69002/24/2025 1:25 PM EDT Plan of Treatment Health MaintenanceDue DateLast DoneCommentsPneumococcal Vaccine: 65+ Years (3 of 3 - PCV20 or PCV21), 11/07/2012Influenza Vaccine (#1) , 10/11/2023, 09/05/2022, Additional history exists Insurance Care Teams Team MemberRelationshipSpecialtyStart DateEnd Date Cristobal Michel DO PCP - GeneralInternal Medicine11/23/24
--- OUTSIDE RECORDS SUMMARY | 2025-09-16 12:44 | XMS_ITS | CCD ---
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 Role Phone LUPIS DENNIS Admitting Unavailable LUPIS DENNIS Attending Unavailable BALL, CRISTOBAL Referring Unavailable BALL, CRISTOBAL Primary Care Unavailable SOM, CRISTOBAL Primary Care Physician [phone] Som, Cristobal Unavailable SOM, DR DON Admitting [...] Cannon Attending Unavailable SOM, CRISTOBAL Referring Unavailable BALL, CRISTOBAL Referring Unavailable De La Cruz, Margareth Attending Unavailable BALL, CRISTOBAL Referring Unavailable De La Cruz, Margareth Admitting Unavailable De La Cruz, Margareth Attending Unavailable De La Cruz, Margareth Admitting Unavailable BALL, CRISTOBAL Referring Unavailable De La Cruz, Margareth Attending Unavailable Cannon, Lopez A. Attending Unavailable Cannon, Lopez A. Admitting Unavailable BALL, CRISTOBAL Referring Unavailable De La Cruz, Margareth Admitting Unavailable BALL, CRISTOBAL Referring Unavailable De La Cruz, Margareth Attending Unavailable De La Cruz, Margareth Admitting Unavailable BALL, CRISTOBAL Referring Unavailable De La Cruz, Margareth Attending Unavailable Cannon, Lopez A. Attending Unavailable Cannon, Lopez A. Admitting Unavailable BALL, CRISTOBAL Referring Unavailable De La Cruz, Margraeth Admitting Unavailable BALL, CRISTOBAL Referring Unavailable De La Cruz, Margareth Attending Unavailable Cannon, Lopez A. Attending Unavailable Cannon, Lopez A. Referring Unavailable Cannon, Lopez A. Attending Unavailable Cannon, Lopez A. Referring Unavailable Cannon, Lopez A. Attending Unavailable Cannon, Lopez A. Referring Unavailable Cannon, Lopez A. Attending Unavailable Cannon, Lopez A. Referring Unavailable Cannon, Lopez A. Attending Unavailable Cannon, Lopez A. Referring Unavailable Cannon, Lopez A. Admitting Unavailable Ball Cristobal MENDOZA Primary Care Provider [phone] Cristobal Kearns DO Attending Provider Moi Moss MD, V Attending Provider DIONY ARIZA Attending Unavailable DIONY ARIZA Attending Unavailable MOUKARBEL, MOI Attending Unavailable MOUKARBEL, MOI Admitting Unavailable MOUKARBEL, MOI Referring Unavailable MOUKARBEL, MOI Attending Unavailable JOSEPHFRANKO Leonard Attending Unavailable MOUKARBEL, MOI Referring Unavailable MOUKARBEL, MOI Attending Unavailable MOUKARBEL, MOI Attending Unavailable MOUKARBEL, MOI Attending Unavailable SAVZMORENITA CHACKO Attending Unavailable CRISTOBAL KEARNS E Primary Care Unavailable LAYNE GRANT Admitting Unavailable YOLA BARKER Attending Unavailable Cristobal Kearns DO Primary Care Provider Yuliet Guerrier CMA Attending Provider Unavaila ble Cristobal Kearns DO Attending Provider Allergies Allergy ClassificationReported Allergen(s)Allergy TypeDate of OnsetReaction(s) Facility (4 sources)black walnut pollen extract; Translations: [WHOAEHI-GNX-XTG REDUCTASE INHIBITORS]Drug Wkxtsjc24-50-5018[facility] (20 sources)HMG-CoA reductase inhibitor; Translations: [statins]Drug allergy 94-67-0691[place], [facility] (20 sources)hydrALAZINE; Translations: [hydralazine]Drug Ajkdfjz67-60-9784Zeoiy, [facility]pitations[facility] (12 sources)pregabalin; Translations: [pregabalin]Drug Katscun04-62-7891Syjljmhk [facility] (9 sources)PregabalinAllergy to zbsnvbfah38-25-9262[facility]NP[facility] (2 sources)Vbxcxxc-NXG-ZuN Reductase InhibitorAllergy to [id number] Unknown ReactionJ.W. [facility] Medications Current Medications MedicationDrug Class(es)DatesSig (Normalized)Sig (Original)acetaminophen 500 mg oral tablet (20 sources)Start: 88-52-7555vmme 3 tablets by mouth twice daily as needed for painAcetaminophen (Tylenol Extra Strength) 500 mg Tablet Active 1500 MG PO Twice daily as needed for Pain November 30, 2019 1:00am Complies with drug therapy Start: 86-49-4948Dkmunge 500 mg, PRN as needed for pain, Refills(s) 0 Start Date: 03/25/13 Status: Ordered Repeat number: 1Start: 70-49-4611Iiiebyt 500 mg, PRN as needed for pain, Refills(s) 0 Start Date: 03/25/13 Status: OrderedStart: 92-47-6791Aniircc 500 mg, PRN PRN as needed for pain, Refills(s) 0 Start Date: 03/25/13 Status: Orderedtake 1 tablet by mouth every six hoursacetaminophen (Tylenol Extra Strength) 500 MG tablet 500 mg every 6 (six) hours Wdizde24 hr alfuzosin hydrochloride 10 mg extended release oral tablet (13 sources)alpha-Adrenergic BlockerStart: 61-60-5080uvet 1 tablet by mouth once dailyUroxatral 10 mg Tab-ER 10 mg = 1 tab(s), Oral, Daily, # 30 tab(s), Refills(s) 0 Start Date: 02/22/25 Status: Ordered Quantity: 30.0 Unit: tab(s) Repeat number: 1Start: 57-31-8011rgpr 1 tablet by mouth every twenty-four hours Alfuzosin 10 mg tablet extended release 24 hr Active 10 MG PO Once November 05, 2024 1:00am Complies with drug therapyAlpha Lipoic Acid 600 mg oral capsule (20 sources)Start: 83-29-4487ftft 1 capsule by mouth once dailyAlpha Lipoic Acid 600 mg oral capsule 600 mg = 1 cap(s), Oral, Daily, Refills(s) 0 Start Date: 10/05/21 Status: Ordered Repeat number: 1Start: 84-24-6564wqyt 1 capsule by mouth once dailyAlpha Lipoic Acid 600 mg oral capsule 600 mg = 1 cap(s), Oral, Daily, Refills(s) 0 Start Date: 10/05/21 Status: OrderedamLODIPine 5 mg oral tablet (20 sources)Dihydropyridine Calcium Channel BlockerStart: 37-38-7552ipkg 1 tablet by mouth once dailyAmlodipine 5 mg tablet Active 5 MG PO Daily July 29, 2024 3:27pm Complies with drug therapyStart: 02-11-2024 End: 83-51-8356tnvq 2 tablets by mouth once dailyAmlodipine 5 mg tablet Discontinued 10 MG PO Daily February 11, 2024 10:26am July 29, 2024 3:27pm Start: 05-18-2020 End: 81-48-9890ffon 1 tablet by mouth once dailyAmlodipine 5 mg tablet Discontinued 5 MG PO Daily February 10, 2024 12:00am February 11, 2024 10:26am Start: 18-66-0027igwr 20 mg by mouth once dailyNorvasc 20 mg, Oral, Daily, Refills(s) 0 Start Date: 05/18/20 Status: OrderedStart: 11-30-2019 End: 55-75-0225boud 1 tablet by mouth once daily in the morningAmlodipine 10 mg tablet Discontinued 10 MG PO Every morning November 30, 2019 1:00am February 10, 2024 5:57pm htnAntibiotic (8 sources)Start: 31-49-9995Lhoiotuwdw Antibiotic Start Date: 09/06/23 Status: Orderedaspirin 81 mg delayed release oral tablet (20 sources)Platelet Aggregation Inhibitor, Nonsteroidal Anti-inflammatory Drug Start: 80-72-5800Uzlvdrg (Hawk Low Dose Aspirin) 81 mg Tablet,Delayed Release (Dr/Ec) Active 81 MG PO Daily at bedtime November 30, 2019 1:00am heart Complies with drug therapyStart: 28-44-4230frshkms 81 mg, Daily, Refills(s) 0 Start Date: 03/25/13 Status: Ordered Repeat number: 1Start: 63-27-4246xvnghqk 81 mg, Daily, Refills(s) 0 Start Date: 03/25/13 Status: Orderedtake 1 tablet by mouth every twenty-four hoursAspirin 81 MG 1 tablet Orally Once a day Activebaclofen 5 mg oral tablet (12 sources)gamma-Aminobutyric Acid-ergic AgonistStart: 49-23-3910sbtm 1 tablet by mouth three times daily as needed for muscle spasmsbaclofen 5 mg oral tablet 5 mg = 1 tab(s), Oral, TID, PRN Spasm, # 30 tab(s), Refills(s) 0, Pharmacy: [facility]/pharmacy #[id number], 183, cm, 02/14/24 13:46:00 EDT, Height/Length Dosing, 110.3, kg, 02/14/24 13:46:00 EDT, Weight Dosing Start Date: 02/14/24 Status: Ordered Start: 11-30-2019 End: 06-12-1578vgkf 1 tablet by mouth twice daily as needed for muscle spasms Baclofen 10 mg Tablet Discontinued 10 MG PO Twice daily as needed for Muscle Spasm November 30, 2019 1:00am December 11, 2019 9:03amBlood-Glucose Sensor (Freestyle Singh 2 Plus Sensor) device (3 sources)Start: 27-77-6812Yiowo-Glucose Sensor (Freestyle Singh 2 Plus Sensor) device Active 0 .Route 2 November 3051:00am Type 2 diabetes mellitus with hyperglycemia Type 2 diabetes mellitus with hyperglycemia [facility] (current) use of insulin to test blood sugar dailyStart: 96-71-5745Qhmjt-Glucose Sensor (Freestyle Singh 2 Plus Sensor) device Active 0 .Route 2 November 30, 2024 1:00am to test blood sugar qdrge098 actuat budesonide 0.16 mg/actuat / formoterol fumarate 0.0048 mg/actuat / glycopyrrolate 0.009 mg/actuat metered dose inhaler (1 source)Corticosteroid, beta2-Adrenergic AgonistStart: 07-14-2025 Hhpzpaszpv-Hcdwijsh-Kzwonrkxwi (Breztri Aerosphere) 160-9-4.8 mcg/actuation HFA aerosol inhaler Active 2 INH INHALATION Twice daily 10.7 30 5 July 14, 2025 12:00am Complies with drug therapyCalcium + D 315-200 MG-UNIT (15 sources)take 1 tablet by mouth twice dailyCalcium + D 315-200 MG-UNIT 1 tablet Orally Twice a day ActiveCalcium Carb-Cholecalciferol (CALCIUM 500 +D PO) (5 sources)Calcium Carb-Cholecalciferol (CALCIUM 500 +D PO) Take by mouth Active calcium carbonate 1500 mg oral tablet (20 sources)Start: 12-20-8622espy 1 tablet by mouth once dailycalcium (as carbonate) 600 mg oral tablet 600 mg = 1 tab(s), Oral, Daily, Refills(s) 0 Start Date: 05/18/20 Status: Ordered Repeat number: 1calcium carbonate 1500 mg / cholecalciferol 200 unt oral capsule (3 sources)Vitamin DStart: 49-93-9083shxs 1 tablet by mouth once dailyCalcium Carbonate-Vitamin D3 (Calcium 600 + D(3)) 600 mg calcium- 200 unit Capsule Active 1 TAB PO Daily November 30, 2019 1:00am supplement Complies with drug therapyCV[facility] - (5 sources)[facility] - as directed Orally Activediclofenac sodium 10 mg/ml topical cream (4 sources)Nonsteroidal Anti-inflammatory DrugStart: 51-25-5161fvipatzmnf sodium 1% topical cream Refill(s) 0 Start Date: 10/05/21 Status: Ordereddutasteride 0.5 mg oral capsule (11 sources)5-alpha Reductase InhibitorStart: 97-85-2174lswy 1 capsule by mouth once daily in the morningdutasteride 0.5 mg Cap 0.5 mg = 1 cap(s), Oral, Daily, TAKE 1 CAPSULE BY MOUTH IN THE MORNING StartDate: 10/13/24 Status: Ordered Repeat number: 11 ml evolocumab 140 mg/ml prefilled syringe (20 sources)PCSK9 InhibitorStart: 62-46-6694Zfwutfqfcb (Repatha Syringe) 140 mg/mL syringe Active 140 MG SUBCUT every month February 10, 2024 12:00am Complies with drug therapyStart: 53-79-0794zhdifg 140 mg by subcutaneous injection every other weekRepatha 140 mg/mL subcutaneous solution SubCutaneous, q2wk, Refills(s) 0 Start Date: 10/05/21 Status: Ordered Repeat number: 1ezetimibe 10 mg oral tablet (20 sources)Dietary Cholesterol Absorption InhibitorStart: 11-30-2019 End: 01-18-6179asbk 1 tablet by mouth once dailyEzetimibe 10 mg tablet Active 10 MG PO Daily February 10, 2024 12:00am Complies with drug therapyFreeStyle Singh 14 Day Ramsay - (15 sources)FreeStyle Singh 14 Day Ramsay - as directed ActiveFreeStyle Singh 14 Day Sensor - (15 sources)FreeStyle Singh 14 Day Sensor - USE TO TEST BLOOD SUGAR DAILY for 28 ActiveFreeStyle Singh 14 Day Sensor - as directed Activegabapentin 300 mg oral capsule (15 sources)Anti-epileptic AgentStart: 59-07-0309kerq 1 capsule by mouth twice dailygabapentin 300 mg Cap 300 mg = 1 cap(s), Oral, BID, # 60 cap(s), Refills(s) 0, Pharmacy: [facility]/pharmacy #[id number], 183, cm, 02/14/24 13:46:00 EDT, Height/Length Dosing, 110.3, kg, 02/14/24 13:46:00 EDT, Weight Dosing Start Date: 02/14/24 Status: OrderedStart: 12-16-2023 End: 10-44-8188fkfu 1 capsule by mouth once daily at bedtimeGabapentin 300 mg capsule Discontinued 300 MG PO Daily at bedtime February 11, 2024 12:00am July 29, 2024 3:38pmStart: 48-71-6026zqxh 1 capsule by mouth at bedtime gabapentin 100 mg Cap 100 mg = 1 cap(s), Oral, Bedtime, # 30 cap(s), Refills(s) 0, Pharmacy: [facility]/pharmacy #[id number], 182.9, cm, 11/08/22 15:17:00 EST, Height/Length Dosing, 113.4, kg, 12/29/21 13:07:00 EST, Weight Dosing Start Date: 11/08/22 Status: Orderedinsulin isophane, human 100 unt/ml injectable suspension (6 sources)insulin NPH, Isophane, (HumuLIN N,NovoLIN N) 100 UNIT/ML injection Inject under the skin 2 (two) times a day before meals ActiveInsulin Nph And Regular Human (20 sources)InsulinStart: 83-28-0788Wnbovph Nph And Regular Human (Novolin 70-30 Flexpen U-100) 100 unit/mL (70-30) insulin pen Active 0 SUBCUT Twice daily 120 90 3 June 07, 2025 2:03pm subcutaneously twice daily; 40 units q am and 20 units q pm Complies with drug therapyStart: 47-64-1587Bcxrakm Nph And Regular Human (Novolin 70-30 Flexpen U-100) 100 unit/mL (70-30) insulin pen Active 0 SUBCUT Twice daily 120 90 June 07, 2025 2:03pm subcutaneously twice daily; 40 units q am and 20 units q pm Complies with drug therapyStart: 04-28-2025 End: 88-97-7133Jooghey Nph And Regular Human (Novolin 70-30 Flexpen U-100) 100 unit/mL (70-30) insulin pen Discontinued 60 UNIT SUBCUT Twice daily 120 90 April 28, 2025 12:59pm June 07, 2025 2:05pmStart: 04-28-2025 End: 47-67-8254Zfmyjdq Nph And Regular Human (Novolin 70-30 Flexpen U-100) 100 unit/mL (70-30) insulin pen Discontinued 60 UNIT SUBCUT Twice daily 120 90 April 28, 2025 12:59pm June 07, 2025 2:05pmStart: 06-15-2024 End: 30-73-9833Dxvdqhs Nph And Regular Human (Humulin 70/30 U-100 Kwikpen) 100 unit/mL (70-30) insulin pen Discontinued 60 UNIT SUBCUT Twice daily 108 90 June 15, 2024 12:00am July 29, 2024 3:39pmStart: 06-15-2024 End: 04-70-4801Jgotrzz Nph And Regular Human (Humulin 70/30 U-100 Kwikpen) 100 unit/mL (70-30) insulin pen Discontinued 60 UNIT SUBCUT Twice daily 108 90 June 15, 2024 12:00am July 29, 2024 3:39pmStart: 05-25-2024 End: 08-21-6114Ivqqgof Nph And Regular Human (Novolin 70-30 Flexpen U-100) 100 unit/mL (70-30) insulin pen Discontinued 60 UNIT SUBCUT Twice daily 108 90 3 May 25, 2024 12:48pm April 28, 2025 1:01pmStart: 05-25-2024 End: 46-63-2391Mfplmap Nph And Regular Human (Novolin 70-30 Flexpen U-100) 100 unit/mL (70-30) insulin pen Discontinued 60 UNIT SUBCUT Twice daily 108 90 May 25, 2024 12:48pm April 28, 2025 1:01pmStart: 63-03-7367Mdcpejl Nph And Regular Human (Novolin 70-30 Flexpen U-100) 100 unit/mL (70-30) insulin pen Active 60 UNIT SUBCUT Twice daily 108 90 May 25, 2024 12:48pmStart: 05-25-2024 End: 29-14-6069Lmqcxpw Nph And Regular Human (Novolin 70-30 Flexpen U-100) 100 unit/mL (70-30) insulin pen Discontinued 60 UNIT SUBCUT Twice daily 36 30 May 25, 2024 12:00am May 25, 2024 12:49pmStart: 05-25-2024 End: 84-12-6087Jlvkyee Nph And Regular Human (Novolin 70-30 Flexpen U-100) 100 unit/mL (70-30) insulin pen Discontinued 60 UNIT SUBCUT Twice daily 36 30 May 25, 2024 12:00am May 25, 2024 12:49pmStart: 11-30-2019 End: 32-33-1894Htezujm Nph And Regular Human 100 unit/mL (70-30) suspension Discontinued 60 UNIT SUBCUT Twice daily February 10, 2024 5:59pm May 25, 2024 12:47pm diabetesStart: 24-65-2112Gpgpbmc 70/30 25-10 units, BIDAC, Refill(s) 0 Start Date: 03/25/13 Status: Ordered Repeat number: 1Start: 36-23-7633Efipgav 70/30 25-10 units, BIDAC, Refill(s) 0 Start Date: 03/25/13 Status: OrderedStart: 56-40-9141Gzlrxxu 70/30 55-60 units, BIDAC, Refill(s) 0 Start Date: 03/25/13 Status: OrderedHumuLIN 70/30 (70-30) 100 UNIT/ML INJECT 60 UNITS UNDER THE SKIN BEFORE BREAKFAST AND EVENING MEAL ActiveHumuLIN 70/30 (70-30) 100 UNIT/ML as directed Subcutaneous Activelisinopril 5 mg oral tablet (20 sources)Angiotensin Converting Enzyme InhibitorStart: 92-32-0470jzqc 1 tablet by mouth once dailyLisinopril 5 mg tablet Active 5 MG PO Daily 30 3 June 06, 2025 2:43pm Complies with drug therapyStart: 03-09-2024 End: 22-97-8839Hoqxqmhlxa 10 mg tablet Discontinued 0 .ROUTE .COMPLEX 90 March 19, 2025 9:17am June 06, 2025 2:43pm TAKE 1 TABLET DAILYStart: 02-10-2024 End: 51-67-8693gomp 1 tablet by mouth once dailyLisinopril 10 mg tablet Discontinued 10 MG PO Daily February 10, 2024 12:00am March 09, 2024 1:24pm Start: 11-30-2019 End: 46-26-8939husi 1 tablet by mouth once daily at bedtimeLisinopril 40 mg tablet Discontinued 40 MG PO Daily at bedtime November 30, 2019 1:00am February 10, 2024 5:59pm htnStart: 26-42-8985jxmpjsmmqu 10 mg, Daily, Refills(s) 0 Start Date: 03/25/13 Status: Ordered Repeat number: 1Start: 34-85-7014lshdmhhjbl 10 mg, Daily, Refills(s) 0 Start Date: 03/25/13 Status: Orderedloratadine 10 mg oral capsule (20 sources)Start: 54-97-0669rhxp 1 capsule by mouth once dailyloratadine 10 mg oral capsule 10 mg = 1 cap(s), Oral, Daily, # 10 cap(s), Refills(s) 0 Start Date: 08/03/24 Status: Ordered Quantity: 10.0 Unit: cap(s) Repeat number: 1Start: 10-11-7833nhmp 1 tablet by mouth once dailyLoratadine 10 mg tablet Active 10 MG PO Daily February 10, 2024 12:00am Complies with drug therapymecobalamin 1 mg chewable tablet (3 sources)Start: 67-99-1461jslr 1 tablet by mouth once dailyMecobalamin (Vitamin B12) 1,000 mcg tablet,chewable Active 1000 MCG PO Daily February 10, 2025 12:00am Complies with drug fkqgxok02 hr metoprolol succinate 25 mg extended release oral tablet (12 sources)beta-Adrenergic BlockerStart: 66-80-7649khfatccjth succinate 25 mg ER Tab 12.5 mg = 0.5 tab(s), Oral, Daily, Refills(s) 0 Start Date: 01/12/25 Status: Ordered Repeat number: 1Start: 77-66-0901shig 2 tablets by mouth once dailyMetoprolol Succinate 25 mg tablet extended release 24 hr Active 12.5 MG PO Daily December 30, 2024 1:00am Complies with drug therapymetoprolol tartrate (Lopressor) 25 MG tablet Take by mouth 2 (two) times a day Bsyrdd08 hr mirabegron 50 mg extended release oral tablet (9 sources)beta3-Adrenergic AgonistStart: 31-75-9982oyyl 1 tablet by mouth once dailyMyrbetriq 50 mg oral tablet, extended release 50 mg = 1 tab(s), Oral, Daily, Refills(s) 0 Start Date: 02/22/25 Status: Ordered Repeat number: 1Misc Medication (16 sources)Start: 48-27-7136Qclc Medication CBD 250 Topical Cream, as needed Start Date: 08/03/24 Status: Ordered Repeat number:1Start: 01-75-4730Bsiv Medication CBD 250 Topical Cream, as needed Start Date: 08/03/24 Status: Ordered Start: 62-43-7363Hege Medication CBD Gummies Start Date: 08/03/24 Status: Ordered Multiple Vitamins-Minerals ([facility] PO) (5 sources)Multiple Vitamins-Minerals ([facility] PO) Take by mouth ActivePreserVision AREDS (20 sources)Start: 91-76-8519fohn 1 capsule by mouth once dailyPreserVision AREDS 1 cap(s), Oral, Daily, Refill(s) 0 Start Date: 10/05/21 Status: Ordered Repeat number: 1Start: 96-87-6869joas 1 capsule by mouth once dailyPreserVision AREDS 1 cap(s), Oral, Daily, Refill(s) 0 Start Date: 10/05/21 Status: Hjrxaos97 hr ranolazine 500 mg extended release oral tablet (20 sources)Anti-anginalStart: 03-09-2024 End: 85-72-8028Vfrwdszwkd 500 mg tablet extended release 12 hr Active 0 .ROUTE .COMPLEX 180 3 March 03, 2025 1:28pm TAKE 1 TABLET TWICE A DAY Complies with drug therapyStart: 05-38-4402Bwlfirazpo 500 mg tablet extended release 12 hr Active 0 .ROUTE .COMPLEX 180 March 09, 2024 1:24pm TAKE 1 TABLET TWICE A DAY Start: 11-30-2019 End: 45-17-0456doof 1 tablet by mouth twice dailyRanolazine 500 mg tablet extended release 12 hr Discontinued 500 MG PO Twice daily November 30, 2019 1:00am March 09, 2024 1:24pm anginatake 1 tablet by mouth every twelve hours in the morningranolazine (Ranexa) 500 MG 12 hr tablet Take 1 tablet by mouth in the morning and 1 tablet before bedtime. Activetadalafil 5 mg oral tablet (20 sources)Phosphodiesterase 5 InhibitorStart: 90-86-4837lcbs 1 tablet by mouth once daily as neededTadalafil 5 mg tablet Active 5 MG PO Daily as needed February 10, 2024 12:00am Complies with drug jushgvi17 actuat testosterone 20.25 mg/actuat topical gel (20 sources)AndrogenStart: 92-49-3985Njlrlxrycwir 1.62 % gel PLACE 2 PUMPS ON THE SKIN ONCE EVERY MORNING 02/10/2024 ActiveStart: 67-66-5395Ijkeebfwpxbi (Androgel) 20.25 mg/1.25 gram (1.62 %) gel in metered-dose pump Active 1 PUMP TRANSDERML Daily February 10, 2024 12:00am skin in the morning to shoulder, upper arms or abdomen Complies with drug therapyStart: 32-14-4938avahitpqwbxj 2% transdermal cream See Instructions, apply topically daily, Refills(s) 0 Start Date:12/12/22 Status: Ordered Repeat number: 1Start: 24-31-7442bdhjsjdnlipa 2% transdermal cream See Instructions, apply topically daily, Refills(s) 0 Start Date:12/12/22 Status: OrderedAndroGel Pump 20.25 MG/ACT (1.62%) 1 pump to skin in the morning to shoulder, upper arms or abdomenTransdermal Once a day Active thioctic acid 200 mg oral capsule (14 sources)Start: 57-85-1912kndx 1 capsule by mouth twice dailyAlpha Lipoic Acid 200 mg capsule Active 200 MG PO Twice daily February 10, 2024 12:00am Complies with drug therapytraMADol hydrochloride 50 mg oral tablet (1 source)Opioid AgonistStart: 12-07-2024 End: 13-08-2269lpqm 1 tablet by mouth every six hours as needed for paintraMADOL 50 mg Tab 50 mg = 1 tab(s), Oral, q6hr, PRN Pain, take as needed for post procedure pain, X 5 day(s), # 20 tab(s), Refills(s) 0, Pharmacy: [facility]/pharmacy #[id number], 183, cm, 12/07/24 7:32:00 EST, Height/Length Dosing, 104.3, kg, 10/13/24 14:06:00 EST, Weight Dosing Start Date: 12/07/24 Stop Date:12/12/24 Status: OrderedTylenol Extra Strength 500 MG (10 sources)take 1 tablet by mouth every six hours as neededTylenol Extra Strength 500 MG 1 tablet as needed Orally every 6 hrs Activevitamin B12 (5 sources)Vitamin O77Hbgbf: 93-27-2792Guctcfr B12 Oral, Daily, Refills(s) 0 Start Date: 02/04/25 Status: Ordered Repeat number: 1{20 (nirmatrelvir 150 MG Oral Tablet) / 10 (ritonavir 100 MG Oral Tablet) } Pack [Paxlovid 5-Day] (1 source)Start: 04-28-9873Vdajkgou (300/100) 20 x 150 MG & 10 x 100MG 1 Nirmatrelvir + 1 Ritonavir Orally Twice a day for5 days Instructed to take 150mg + 100mg tablet twice daily for GFR March, Active Completed/Discontinued Medications MedicationDrug Class(es)DatesSig (Normalized)Sig (Original)ascorbic acid 500 mg oral tablet (20 sources)Vitamin CStart: 11-30-2019 End: 68-85-7716abmx 1 tablet by mouth once dailyAscorbic Acid [...] a day Activeazithromycin 250 mg oral tablet (3 sources)Macrolide AntimicrobialStart: 11-20-2024 End: 77-16-7501Fwksfjybaqxd 250 mg tablet Discontinued 250 MG PO .COMPLEX 6 5 0 November 20, 2024 1:00am February 10, 2025 1:29pm 2 tabs on first day followed by 1 tab on days 2-5cyclobenzaprine hydrochloride 10 mg oral tablet (7 sources)Muscle RelaxantStart: 12-11-2019 End: 55-97-6759vkox 1 tablet by mouth three times daily as needed for muscle spasmsCyclobenzaprine 10 mg tablet Discontinued 10 MG PO Three times daily as needed for back spasms 50 0January 2019 1:00am February 10, 2024 5:58pm Flash Glucose Sensor (Freestyle Singh 14 Day Sensor) kit (6 sources)Start: 03-30-2024 End: 76-53-6979Ntcgz Glucose Sensor (Freestyle Singh 14 Day Sensor) kit Discontinued 0 .ROUTE .COMPLEX 2 March 30, 2024 1:15pm November 30, 2024 6:43pm USE TO TEST BLOOD SUGAR DAILYStart: 03-30-2024 End: 11-30-4915Eyril Glucose Sensor (Freestyle Singh 14 Day Sensor) kit Discontinued 0 .ROUTE .COMPLEX 2 March 1:15pm November 30, 2024 6:43pm USE TO TEST BLOOD SUGAR DAILYStart: 03-30-2024 End: 58-88-1875Qwxjf Glucose Sensor (Freestyle Singh 14 Day Sensor) kit Discontinued 0 .Route March 30, 2024 12:00am March 30, 2024 1:15pm As directed fluticasone propionate 0.05 mg/actuat metered dose nasal spray (11 sources)CorticosteroidStart: 61-62-9017kgekeexfiss Nasal 0.05 mg/inh [place] Refill(s) 0 Start Date: 02/01/25 Status: Ordered Repeat number: 1Start: 01-20-2025 End: 41-26-9787dpmg 2 spray(s) nasal route once dailyfluticasone (Flonase) 50 MCG/ACT nasal spray Indications: ETD (Eustachian tube dysfunction), bilateral Administer 2 sprays into each nostril Daily Shake gently. Before first use, prime pump. After use, clean tip and replace cap. 48 g 3 01/20/2025 01/20/2026 ActivelevoFLOXacin 750 mg oral tablet (3 sources)Quinolone AntimicrobialStart: 11-05-2024 End: 69-23-7457pkar 1 tablet by mouth once dailyLevofloxacin 750 mg tablet Discontinued 750 MG PO Daily 7 7 0 November 05, 2024 1:00am November 20, 2024 2:23pmMultivitamin Tablet (3 sources)Start: 11-30-2019 End: 19-87-3006ysqv 1 tablet by mouth once dailyMultivitamin Tablet Discontinued 1 TAB PO Daily November 30, 2019 1:00am July 29, 2024 3:39pmoxyCODONE hydrochloride 5 mg oral capsule (3 sources)Opioid AgonistStart: 12-11-2019 End: 75-51-2041mqck 5-10 mg by mouth every six hours as needed for painOxycodone 5 mg capsule Discontinued 5 - 10 MG PO Q6H as needed for pain 60 8 0 December 11, 2019 February 10, 2024 6:00pm Spinal stenosis of lumbar region with neurogenic claudication Spinal stenosis, lumbar region with neurogenic claudicationpredniSONE 10 mg oral tablet (20 sources)Start: 12-11-2019 End: 27-80-1452Gvjkqdqhrf 10 mg tablets,dose pack Discontinued 1 dose pk PO per package directions 30 0 December 11, 2019 1:00am February 10, 2024 6:00pm take 4 tabs for 3 days then take 3 tabs for 3 days then take2 tabs for 3 days then take 1 tab for 3 dayspregabalin 25 mg oral capsule (11 sources)Start: 03-27-2024 End: 54-80-5040edhj 1-2 tablets by mouth twice daily as neededPregabalin (Lyrica) 25 mg capsule Discontinued 25 MG PO Twice daily as needed July 29, 2024 12:00am November 12, 2024 5:27pm 1-2 tabletsrosuvastatin calcium 5 mg oral tablet (3 sources)HMG-CoA Reductase InhibitorStart: 11-30-2019 End: 63-23-2162bvuo 1 tablet by mouth once daily at bedtimeRosuvastatin 5 mg tablet Discontinued 5 MG PO Daily at bedtime November 30, 2019 1:00am February 10, 2024 6:00pm hyperlipidemiasulfamethoxazole 800 mg / trimethoprim 160 mg oral tablet (3 sources)Dihydrofolate Reductase Inhibitor Antibacterial, Sulfonamide AntimicrobialStart: 12-11-2019 End: 39-98-6133igkd 1 tablet by mouth every twelve hoursSulfamethoxazole- Trimethoprim (Bactrim Ds) 800-160 mg Tablet Discontinued 1 TAB PO Q12H 20 10 0 December 11, 2019 1:00am February 10, 2024 6:00pm Problems Active Problems Problem ClassificationProblemDateDocumented DateEpisodic/ChronicAnxiety disorders (18 sources)Chronic anxiety; Translations: [Anxiety disorder, unspecified]Onset: 287783-39-8107AbxfqyfQqiovrr dysrhythmias (17 sources)Irregular heart beat; Translations: [Cardiac arrhythmia, unspecified]Onset: 220716-32-9208RnqlysgLafkwip on above:Holter: 9 beat VT - 08/2024Holter: 9 beat VT - 08/2024,Holter: 5 beat VT - ardiac dysrhythmias (15 sources)Intermittent palpitations; Translations: [Palpitations]Episodic Chronic kidney disease (20 sources)Chronic kidney disease; Translations: [Chronic kidney disease, unspecified]Onset: 103256-51-2168EafmjpxGmoiuec kidney disease (2 sources)Chronic kidney disease; Translations: [Chronic kidney disease, stage 3b]Onset: 66-09-5467Qfdfafa obstructive pulmonary disease and bronchiectasis (20 sources)Mucopurulent chronic bronchitis; Translations: [Mucopurulent chronic bronchitis]Onset: 09-30-0343QqtkqckIwwrjvt on above:PFT: mild to mod restrictive defect - FT: mild to mod restrictive defect - 07/2022,Normal right heart pressures - oronary atherosclerosis and other heart disease (20 sources)Angina pectoris; Translations: [History of myocardial infarction] Onset: 818343-75-4337DqmstwwNzgrigt on above:CABG - 2014, Echo: LVEF 65%, normal RV size/function, RVSP 08/2024,Stress test: LVEF 51%, fixed inferolateral and anterior wall, reversible defect - ABG - 2014, Echo: LVEF 65%, normal RV size/function, RVSP 08/2024,Stress test: LVEF 51%, fixed inferolateral and anterior wall, reversible defect - 08/2024,LHC: 80% mid LAD, occluded RCA w/ patent grafts - 03/2025,Deficiency and other anemia (20 sources)Anemia; Translations: [Anemia, unspecified]Onset: 06-04-2023 48-94-1939KjlzjejuPimquilpgn and other anemia (2 sources)Anemia, unspecified; Translations: [Anemia, unspecified]11-12-2024 EpisodicDiabetes mellitus with complications (20 sources)Disorder of kidney due to diabetes mellitus; Translations: [Type 2 diabetes mellitus with diabetic chronic kidney disease]Onset: 52-34-4370Laxmrji Diabetes mellitus without complication (20 sources)Diabetes mellitus; Translations: [Type 2 diabetes mellitus without complications]Onset: 778259-34-3695QhbfpmgDiuqzvnfn of lipid metabolism (20 sources)Hypercholesterolemia; Translations: [Mixed hyperlipidemia]Onset: 856684-38-4881UqdklwpAyauznqlxe disorders (15 sources)Gastroesophageal reflux disease; Translations: [Gastro-esophageal reflux disease without esophagitis]Onset: 467943-32-6319FklathhOgsrsmsxe hypertension (20 sources)Hypertensive disorder; Translations: [Essential hypertension]Onset: 888064-55-0413KirvytqEuvyp and electrolyte disorders (1 source)Hyperkalemia; Translations: [Hyperkalemia]Onset: 95-07-8726Xvptdgnd Genitourinary symptoms and ill-defined conditions (9 sources)Urge incontinence of urine; Translations: [Urge incontinence]Onset: 903299-01-0870QarzdafJzrsb valve disorders (20 sources)Irregular heart hpay00-54-3632LwgbagpuUhxulnxvbiq of prostate (20 sources)Large prostate ; Translations: [Nocturia due to benign prostatic hypertrophy]Onset: 873666-48-4441ZlpypnuXonimdtqwxqk with complications and secondary hypertension (1 source)Hypertensive chronic kidney disease with stage 1 through stage 4 chronic kidney disease, or unspecified chronic kidney disease; Translations: [HTN CKD W/STAGE 1-4 CKD/UNS CKD]Onset: 45-08-4464AzwqeexEnzhuvxvpkaf; infection of eye (except that caused by tuberculosis or sexually transmitteddisease) (20 sources)Conjunctivitis; Translations: [Unspecified conjunctivitis]Episodic Inflammatory conditions of male genital organs (2 sources)Chronic prostatitis; Translations: [Chronic prostatitis]Onset: 32-69-7852LwmilwgNzwa disorders (9 sources)Depressive disorder; Translations: [Depressive disorder]Onset: 557141-08-4326NsfvzouAobmpgsji or stenosis of precerebral arteries (2 sources)Occlusion and stenosis of bilateral carotid arteries; Translations: [Occlusion and stenosis of bilateral carotid arteries]Onset: 80-19-8063Ysmpulj Osteoarthritis (19 sources)Osteoarthritis of knee; Translations: [Unilateral primary osteoarthritis, right knee]Onset: 39-25-2039UhqsrptHcxoo aftercare (15 sources)Long-term current use of insulin; Translations: [intermodal customer service (current) use of insulin]EpisodicOther and unspecified benign neoplasm (6 sources)Tubular adenoma of colon; Translations: [Tubular adenoma of colon] EpisodicOther circulatory disease (20 sources)Carotid bruit; Translations: [Other specified symptoms and signs involving the circulatory and respiratory systems]Onset: 117335-88-6929 EpisodicComment on above:Carotid US: < 50% B/L [...] [Mixed conductive and sensorineural hearing loss, bilateral] 17-23-2218IkljgcfTigep ear and sense organ disorders (4 sources)Mixed conductive AND sensorineural hearing loss; Translations: [Mixed conductive and sensorineural hearing loss, unilateral, right ear with restricted hearing on the contralateral side]52-91-6284XzerldrIoesm ear and sense organ disorders (2 sources)Sensorineural hearing loss, unilateral, right ear, with unrestricted hearing on the contralateral side; Translations: [Sensorineural hearing loss, unilateral]83-32-5532NrshfkgEdgrr endocrine disorders (4 sources)Testicular hypofunction; Translations: [TESTICULAR HYPOFUNCTION] Onset: 30-32-1750RthhqdlPionn endocrine disorders (9 sources)Male hypogonadism; Translations: [Testicular hypofunction]Onset: 845276-05-3437JqnijimJehsj lower respiratory disease (20 sources)Nodule of lung; Translations: [Solitary pulmonary nodule]Onset: 336394-22-2349MftaugiaWhiqnga on above:CT: 7mm RML - 02/2023, 7mm RML - 08/2024Other lower respiratory disease (12 sources)Solitary pulmonary nodule; Translations: [Solitary pulmonary nodule] Onset: 32-29-9980PifolureJadjh male genital disorders (9 sources)Male erectile dysfunction, unspecified; Translations: [Impotence of organic origin]Onset: 363079-69-4540UjueakeRggfh nervous system disorders (20 sources)Carpal tunnel syndrome; Translations: [Carpal tunnel syndrome, unspecified upper limb]Onset: 824033-85-4162ZwjvayjUiflv nervous system disorders (1 source)Other chronic pain; Translations: [OTHER CHRONIC PAIN]Onset: 49-50-2952LhdkzudCcosy nervous system disorders (2 sources)Chronic pain; Translations: [Other chronic pain]Onset: 12-16-2023 ChronicOther non-traumatic joint disorders (15 sources)Arthralgia of the lower leg; Translations: [Pain in left knee] EpisodicOther nutritional; endocrine; and metabolic disorders (20 sources)Body mass index 30+ - obesity; Translations: [Body mass index (BMI) 31.0-31.9, adult]Onset: 905976-27-0869IntlyloBtrbs nutritional; endocrine; and metabolic disorders (18 sources)Obesity caused by energy imbalance; Translations: [Other obesity due to excess calories]Onset: 079952-27-5401QcifldsKzewo nutritional; endocrine; and metabolic disorders (1 source)Other obesity due to excess caloriesChronicOther nutritional; endocrine; and metabolic disorders (1 source)Body mass index (BMI) 32.0-32.9, adultChronicOther nutritional; endocrine; and metabolic disorders (9 sources)Disorder of lipid metabolism; Translations: [Disorder of lipoprotein metabolism, unspecified]Onset: 027938-74-0009WyqwocxLlmku screening for suspected conditions (not mental disorders or infectious disease) (2 sources)Decreased diffusion capacity of lung; Translations: [Abnormal results of pulmonary function studies]93-01-1159BtlqjyocIubogx media and related conditions (8 sources)Eustachian tube disorder; Translations: [Other specified disorders of Eustachian tube, unspecified ear]22-31-6616QqfvneaqKldcdidyrc and visceral atherosclerosis (15 sources)Arteriosclerosis of abdominal aorta; Translations: [Atherosclerosis of aorta]ChronicResidual codes; unclassified (20 sources)Sleep tcypg29-33-2156AmkjwvhOolvrxgm codes; unclassified (20 sources)Obstructive sleep apnea syndrome; Translations: [Obstructive sleep apnea (adult) (pediatric)]Onset: 792145-77-5005UlhenhiNrrxcnnz codes; unclassified (5 sources)Obstructive sleep apnea (adult) (pediatric); Translations: [Obstructive sleep apnea (adult)(pediatric)]ChronicResidual codes; unclassified (20 sources)H/O cardiac surgery; Translations: [Other specified postprocedural states]Onset: 542434-60-4117NphzsrgoDhkrlfjxewd failure; insufficiency; arrest (adult) (20 sources)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 airway pressure ventilation; Translations: [Dependence on other enabling machines and devices]Onset: 412545-27-6111SnyeokkPfzlnbcqnq arthritis and related disease (20 sources)Rheumatoid arthritis; Translations: [Rheumatoid arthritis, unspecified]Onset: 020827-23-0818ZyivywvPuogmreoiqj; intervertebral disc disorders; other back problems (20 sources)Lumbar spondylosis with myelopathy; Translations: [Other spondylosis with myelopathy, lumbar region]Onset: 91-59-4527WudjmrrQueirfihven; intervertebral disc disorders; other back problems (14 sources)Dorsalgia, unspecified; Translations: [Spinal stenosis, lumbar region without neurogenic claudication]Onset: 368554-43-5239Eerymqgi Sprains and strains (16 sources)Strain of right quadriceps muscle, fascia and tendon, initial encounter; Translations: [Strain of right quadriceps muscle, fascia and tendon, subsequent encounter]Onset: 06-05-5472FwsyrmmsAcmigahub-related disorders (20 sources)Tobacco user; Translations: [Nicotine dependence, cigarettes, in remission]Onset: 82-15-1466ZunvqeyWwgjfme (2 sources)Syncope and collapse; Translations: [Syncope]Onset: 08-28-2025 EpisodicUnclassified (2 sources)LOW BACK PAIN, UNSPECIFIED; Translations: [LOW BACK PAIN, UNSPECIFIED]Onset: 55-33-4598Xgluepofepem (1 source)CHRN KIDNEY DISEASE STG 3 UNSP; Translations: [CHRN KIDNEY DISEASE STG 3 UNSP]Onset: 88-67-2457Hntolcopvepc (1 source)CONTACT W/AND (SUSP) EXPOS COVID-19; Translations: [CONTACT W/AND (SUSP) EXPOS COVID-19]Onset: 36-50-1186Ieteevjtvtrp (1 source)Other ventricular tachycardia; Translations: [Other ventricular tachycardia]Onset: 32-93-2872Rtxwpxcnndur (1 source)illOnset: 08-28-2025 Past or Other Problems Problem ClassificationProblemDateDocumented DateEpisodic/ChronicAbdominal pain (9 sources)Abdominal discomfort; Translations: [Pelvic and perineal pain]Onset: 356604-73-4706PrfciuwsNfjjgbp tract disease (20 sources)Cholelithiasis without obstruction; Translations: [Calculus of gallbladder without cholecystitis without obstruction]Onset: 01-27-2013 69-25-9224LknwonlmPnritsct of urinary tract (9 sources)Kidney stone; Translations: [Calculus of kidney]Onset: 01-27-2013 10-37-2474NwyflkuyUbgdsqjtad associated with dizziness or vertigo (9 sources)Postural dizziness; Translations: [Dizziness and giddiness]Onset: 501278-15-0960UpxkuosvIthchzxg atherosclerosis and other heart disease (2 sources)Presence of aortocoronary bypass graft; Translations: [Presence of aortocoronary bypass graft]Onset: 59-73-5952EjuqhkirEneyxnvo; convulsions (9 sources)Seizure; Translations: [Unspecified convulsions]Onset: 01-27-2013 32-73-9015HifueienYsvyzuucnpybi symptoms and ill-defined conditions (20 sources)Giuseppe hematuria; Translations: [Gross hematuria]Onset: 09-03-2023 EpisodicOther aftercare (2 sources)penitentiary (current) use of insulin; Translations: [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 OF INSULIN]Onset: 03-11-1731IxfvnipgHkscx aftercare (1 source)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; Translations: [OTH JAIL CURRENT DRUG THERAPY]Onset: 81-83-5174JpqptayiWdpxa aftercare (1 source)penitentiary (current) use of aspirin; Translations: [JAIL CURRENT USE OF ASPIRIN]Onset: 33-84-9664KzmibsopXsjlc lower respiratory disease (20 sources)Dyspnea on exertion; Translations: [Other forms of dyspnea]Onset: 552531-96-0432AbzsgxuwXuitk lower respiratory disease (6 sources)Shortness of breath; Translations: [SHORTNESS OF BREATH]Onset: 80-55-0139CgfisczsFkwvixmr codes; unclassified (2 sources)History of cardiac catheterization; Translations: [Other specified postprocedural states]Onset: 515534-60-6041OuygccntWvoktpz on above:LHC: 80% mid LAD, occluded RCA w/ patent grafts - 03/2025Screening and history of mental health and substance abuse codes (1 source)Personal history of nicotine dependence; Translations: [PERSONAL HISTORY OF NICOTINE DEPEND]Onset: 56-68-5197QipopandImuhfoztbzlt (1 source)LOW BACK PAIN, UNSPECIFIED; Translations: [LOW BACK PAIN, UNSPECIFIED] Onset: 46-31-3038Ubqwpoqvgsjv (1 source)Other ventricular tachycardia; Translations: [Other ventricular tachycardia]Onset: 23-05-6300Vwlkxzw tract infections (9 sources)Cystitis cystica; Translations: [Other cystitis without hematuria] Onset: 143771-95-4493KhcvhucxIdngm infection (1 source)COVID-19 Results Test NameValueInterpretationReference RangeFacilityCBC WITH AUTO DIFFERENTIALon 52-23-4284CRTPXMXEA ABSOLUTE COUNT (10*3/UL) BY AUTOMATED COUNT0.1 10*3/uLNormal 0.0-0.2PCypress Pointe Surgical Hospitalica Good Samaritan HospitalComment on above:Performed By: #### CBCA #### [facility] ([address] [address] VIRBASOPHILS RELATIVE PERCENT BY AUTOMATED COUNT1.2 %Normal [facility] SystemComment on above:Performed By: #### CBCA #### [facility] ([address] [address] VIRCELLAVISION DIFFERENTIAL TYPEAUTOMATED DIFFERENTIALNormal [facility] SystemComment on above:Performed By: #### CBCA #### [facility] ([address] [address] VIREosinophils (Bld) [#/Vol]0.4 10*3/uLNormal0.0-0.4[facility] SystemComment on above:Performed By: #### CBCA #### [facility] ([address] [address] VIREOSINOPHILS RELATIVE PERCENT BY AUTOMATED COUNT6.3 %Normal [facility] SystemComment on above:Performed By: #### CBCA #### [facility] ([address] [address] VIRErythrocyte distribution width (RBC) [Ratio]14.1 %Normal 11.5-15[facility] SystemComment on above:Performed By: #### CBCA #### [facility] ([address] [address] VIRHematocrit (Bld) [Volume fraction]33.6 %Bnc13-16SeuJnlevvTrinity Health SystemComment on above:Performed By: #### CBCA #### [facility] ([address] [place] [address] VIRHemoglobin (Bld) [Mass/Vol]11.5 g/tZTkl41-01HljGbovibCovenant Health PlainviewComment on above:Performed By: #### CBCA #### [facility] ([address] [place] [address] VIRLYMPHOCYTES ABSOLUTE COUNT (10*3/UL) BY AUTOMATED COUNT2.2 10*3/uLNormal1.0-3.5PMagruder Memorial HospitalComment on above:Performed By: #### CBCA #### [facility] ([address] [place] [address] VIRLYMPHOCYTES RELATIVE PERCENT BY AUTOMATED COUNT31.2 %Normal [facility] SystemComment on above:Performed By: #### CBCA #### [facility] ([address] [place] [address] VIRMCH (RBC) [Entitic mass]31.0 buThglqg65-36BpxYxpjeaTrinity Health SystemComment on above:Performed By: #### CBCA #### [facility] ([address] [place] [address] VIRMCHC (RBC) [Mass/Vol]34.3 g/bZEvqjxs29-30RwfVmqolzCovenant Health PlainviewComment on above:Performed By: #### CBCA #### [facility] ([address] [place] [address] VIRMCV (RBC) [Entitic vol]91 lCHnoqab49-600HrtUqtitm [facility] HospitalComment on above:Performed By: #### CBCA #### [facility] ([address] [place] [address] VIRMONOCYTES ABSOLUTE COUNT (10*3/UL) BY AUTOMATED COUNT0.7 10*3/uLNormal0.0-0.9ProCovenant Health PlainviewComment on above:Performed By: #### CBCA #### [facility] ([facility]) [address] [place] [address] [place] [address] VIRMONOCYTES RELATIVE PERCENT BY AUTOMATED COUNT9.4 %Normal [facility] SystemComment on above:Performed By: #### CBCA #### [facility] ([facility]) [address] [place], [place] [address]E. [place] [address] VIRNEUTROPHILS ABSOLUTE COUNT BY AUTOMATED COUNT3.6 10*3/uL Normal1.5-6.6[facility] Health SystemComment on above:Performed By: #### CBCA #### [facility] ([address] [place] [address] VIRNEUTROPHILS RELATIVE PERCENT BY AUTOMATED COUNT51.9 %Normal [facility] SystemComment on above:Performed By: #### CBCA #### [facility] ([address] [place] [address] VIRPlatelet mean volume (Bld) [Entitic vol]9.8 fLNormal7-12 [facility] SystemComment on above:Performed By: #### CBCA #### [facility] ([address] [place] [address] VIRPlatelets (Bld) [#/Vol]167 10*3/pWRlbjxw508-398TvsZqpqfh [facility] HospitalComment on above:Performed By: #### CBCA #### [facility] ([address] [place] [address] VIRRBC COUNT3.71 X10E12/LLow4.1-5.7[facility] Comment on above:Performed By: #### CBCA #### [facility] ([address] [place] [address] VIRWBC (Bld) [#/Vol]7.0 10*3/uLNormal4-11ProCovenant Health PlainviewComment on above:Performed By: #### CBCA #### [facility] ([place] [address] [place] [address] VIRCOMPREHENSIVE METABOLIC PANELon 40-41-4552Azwhgan [Mass/Vol]3.7 g/dLNormal3.2-5.3PAspen Valley Hospital HospitalComment on above: Performed By: #### CBCA #### [facility] ([place] [address] [place] [address] VIRALP [Catalytic activity/Vol]63 U/TBqpquc65-309VlhTemnjfCovenant Health PlainviewComment on above:Performed By: #### CBCA #### [facility] ([place] [address] [place] [address] VIRALT [Catalytic activity/Vol]13 U/LNormal<=40ProCovenant Health PlainviewComment on above:Performed By: #### CBCA #### [facility] ([address] [place] [address] VIRAnion gap [Moles/Vol]10 mmol/LNormal5-15ProCovenant Health PlainviewComment on above:Performed By: #### CBCA #### [facility] ([place] [address] [place] [address] VIRAST [Catalytic activity/Vol]14 U/LNormal<=41ProCovenant Health PlainviewComment on above:Performed By: #### CBCA #### [facility] ([place] [address] [place] [address] VIRBilirubin [Mass/Vol]0.8 mg/dLNormal0.3-1.2PMagruder Memorial HospitalComment on above:Performed By: #### CBCA #### [facility] ([address] [place] [address] VIRCalcium [Mass/Vol]8.6 mg/dLNormal8.5-10.5PMagruder Memorial HospitalComment on above:Performed By: #### CBCA #### [facility] ([address] [place] [address] VIRChloride [Moles/Vol]105 mmol/EZowapi95-212XnkDvpxgeCovenant Health PlainviewComment on above:Performed By: #### CBCA #### [facility] ([address] [place] [address] VIRCO2 [Moles/Vol]21 mmol/HBbu69-39UzbTebddhMagruder Memorial Hospital Comment on above:Performed By: #### CBCA #### [facility] ([address] [place] [address] VIRCreatinine [Mass/Vol]1.76 mg/dLHigh0.70-1.20ProCovenant Health PlainviewComment on above:Result Comment: METHOD TRACEABLE TO IDMS STANDARDPerformed By: #### CBCA #### [facility] ([address] [place] [address] VIRGFR/1.73 sq M.predicted among non-blacks MDRD (S/P/Bld) [Vol rate/Area]39 mL/min/{1.73_m2}Low>=60ProCovenant Health PlainviewComment on above:Result Comment: eGFR not reported due to non-numeric value for Creatinine. Reported eGFR is based on the CKD-EPI 2021 equation that does not use a race coefficient.Performed By: #### CBCA #### [facility] ([address] [place] [address] VIRGlucose [Mass/Vol]136 mg/hVFbor74-54KlrIooaodCovenant Health PlainviewComment on above:Performed By: #### CBCA #### [facility] ([address] [place] [address] VIRPotassium [Moles/Vol]5.2 mmol/LHigh3.5-5.0ProCovenant Health PlainviewComment on above:Performed By: #### CBCA #### [facility] ([address] [place] [address] VIRProtein [Mass/Vol]6.0 g/dLNormal6.0-8.0ProCovenant Health PlainviewComment on above:Performed By: #### CBCA #### [facility] ([address] [place] [address] VIRSodium [Moles/Vol]136 mmol/EUbelbr208-058RijQcynki [facility] HospitalComment on above:Performed By: #### CBCA #### [facility] ([address] [place] [place] [address] VIRUrea nitrogen [Mass/Vol]32 mg/dLHigh5-27ProCovenant Health PlainviewComment on above:Performed By: #### CBCA #### [facility] ([address] [place] [address] VIRMAGNESIUMon 45-75-2633Fpowcydgx [Mass/Vol]2.2 mg/dLNormal 1.8-2.6ProCovenant Health PlainviewComment on above:Performed By: #### CBCA #### [facility] ([address] [place] [address] VIRPOTASSIUMon 61-01-5747Yljlwrdfi [Moles/Vol]4.9 mmol/LNormal 3.5-5.0ProCovenant Health PlainviewComment on above:Performed By: #### MG #### [facility] ([address] [place] [address] VIRC-REACTIVE PROTEINon 45-41-8500UXO [Mass/Vol]mg/LNormal <=0.7ProCovenant Health PlainviewComment on above:Performed By: #### CBCA #### [facility] ([address] [place] [address] VIRCBC WITH AUTO DIFFERENTIALon 57-34-4010XYDODLRNX ABSOLUTE COUNT (10*3/UL) BY AUTOMATED COUNT0.1 10*3/uLNormal0.0-0.2Pro[facility] Sam[facility]itan HospitalComment on above:Performed By: #### CBCA #### [facility] ([address] [place] [address] VIRBASOPHILS RELATIVE PERCENT BY AUTOMATED COUNT1.3 %Normal [facility] SystemComment on above:Performed By: #### CBCA #### [facility] ([address] [address] VIRCELLAVISION DIFFERENTIAL TYPEAUTOMATED DIFFERENTIALNormal [facility] SystemComment on above:Performed By: #### CBCA #### [facility] ([address] [address] VIREosinophils (Bld) [#/Vol]0.3 10*3/uLNormal0.0-0.4[facility] SystemComment on above:Performed By: #### CBCA #### [facility] ([address] [place] [address] VIREOSINOPHILS RELATIVE PERCENT BY AUTOMATED COUNT3.4 %Normal [facility] SystemComment on above:Performed By: #### CBCA #### [facility] ([address] [place] [address] VIRErythrocyte distribution width (RBC) [Ratio]14.3 %Normal 11.5-15ProCovenant Health PlainviewComment on above:Performed By: #### CBCA #### [facility] ([address] [place] [address] VIRHematocrit (Bld) [Volume fraction]34.9 %Fsb83-88BxhQqwskk [facility]ain HospitalComment on above:Performed By: #### CBCA #### [facility] ([address] [place] [address] VIRHemoglobin (Bld) [Mass/Vol]11.9 g/jXNxm76-00RcgLpafnpCovenant Health PlainviewComment on above:Performed By: #### CBCA #### [facility] ([address] [place] [address] VIRLYMPHOCYTES ABSOLUTE COUNT (10*3/UL) BY AUTOMATED COUNT1.8 10*3/uLNormal1.0-3.5PMagruder Memorial HospitalComment on above:Performed By: #### CBCA #### [facility] ([address] [address] VIRLYMPHOCYTES RELATIVE PERCENT BY AUTOMATED COUNT22.6 %Normal [facility] SystemComment on above:Performed By: #### CBCA #### [facility] ([address] [place] [address] VIRMCH (RBC) [Entitic mass]30.6 euDgwrvn20-86RarJekpbzTrinity Health SystemComment on above:Performed By: #### CBCA #### [facility] ([address] [place] [address] VIRMCHC (RBC) [Mass/Vol]34.0 g/jXJranhs35-16FryJilzyyCovenant Health PlainviewComment on above:Performed By: #### CBCA #### [facility] ([address] [place] [address] VIRMCV (RBC) [Entitic vol]90 hXZfcjfm77-618TylFcrqls [facility] HospitalComment on above:Performed By: #### CBCA #### [facility] ([address] [place] [address] VIRMONOCYTES ABSOLUTE COUNT (10*3/UL) BY AUTOMATED COUNT0.6 10*3/uLNormal0.0-0.9ProCovenant Health PlainviewComment on above:Performed By: #### CBCA #### [facility] ([facility]) [address] [place] [address] [place] [address] VIRMONOCYTES RELATIVE PERCENT BY AUTOMATED COUNT8.0 %Normal Trinity Health SystemComment on above:Performed By: #### CBCA #### [facility] ([address] [place] [address] VIRNEUTROPHILS ABSOLUTE COUNT BY AUTOMATED COUNT5.2 10*3/uL Normal1.5-6.6Trinity Health SystemComment on above:Performed By: #### CBCA #### [facility] ([address] [place] [address] VIRNEUTROPHILS RELATIVE PERCENT BY AUTOMATED COUNT64.7 %Normal [facility] Health SystemComment on above:Performed By: #### CBCA #### [facility] ([address] [place] [address] VIRPlatelet mean volume (Bld) [Entitic vol]9.5 fLNormal7-12 [facility] Health SystemComment on above:Performed By: #### CBCA #### [facility] ([address] [place] [address] VIRPlatelets (Bld) [#/Vol]161 10*3/mLAwyztj498-823DroWbvyqh [facility] HospitalComment on above:Performed By: #### CBCA #### [facility] ([address] [place] [address] VIRRBC COUNT3.88 X10E12/LLow4.1-5.7[facility] Comment on above:Performed By: #### CBCA #### [facility] ([address] [place] [address] VIRWBC (Bld) [#/Vol]8.0 10*3/uLNormal4-11ProZanesville City Hospital HospitalComment on above:Performed By: #### CBCA #### [facility] ([address] [place] [address] VIRCOMPREHENSIVE METABOLIC PANELon 89-62-0116Ajerqkr [Mass/Vol]3.6 g/dLNormal3.2-5.3PAspen Valley Hospital HospitalComment on above: Performed By: #### CMP #### [facility] ([place] [address] [address] VIRALP [Catalytic activity/Vol]59 U/RMndtpl98-480UpmSrktfvCovenant Health PlainviewComment on above:Performed By: #### CMP #### [address] [place] [address] VIRALT [Catalytic activity/Vol]13 U/LNormal<=40ProCovenant Health PlainviewComment on above:Performed By: #### CMP #### [address] [place] [address] VIRAnion gap [Moles/Vol]10 mmol/LNormal5-15ProCovenant Health PlainviewComment on above:Performed By: #### CMP #### [place] [address] [place] [address] VIRAST [Catalytic activity/Vol]15 U/LNormal<=41ProCovenant Health PlainviewComment on above:Performed By: #### CMP #### [place] [address] [place] [address] VIRBilirubin [Mass/Vol]0.6 mg/dLNormal0.3-1.2PAspen Valley Hospital HospitalComment on above:Performed By: #### CMP #### [facility] ([place] [address] [place] [address] VIRCalcium [Mass/Vol]8.5 mg/dLNormal8.5-10.5PMagruder Memorial HospitalComment on above:Performed By: #### CMP #### [facility] ([facility]) [address] [place] [address]. [place] [address] VIRChloride [Moles/Vol]105 mmol/BXutrij30-545NesIvlzpjCovenant Health PlainviewComment on above:Performed By: #### CMP #### [facility] ([facility]) [address] [place] [address]. [place] [address] VIRCO2 [Moles/Vol]19 mmol/PBwr20-97CftArpmhcMagruder Memorial Hospital Comment on above:Performed By: #### CMP #### [facility] ([address] [place] [address] VIRCreatinine [Mass/Vol]1.99 mg/dLHigh0.70-1.20ProCovenant Health PlainviewComment on above:Result Comment: METHOD TRACEABLE TO IDMS STANDARDPerformed By: #### CMP #### [facility] ([address] [address] VIRGFR/1.73 sq M.predicted among non-blacks MDRD (S/P/Bld) [Vol rate/Area]34 mL/min/{1.73_m2}Low>=60ProCovenant Health PlainviewComment on above:Result Comment: eGFR not reported due to non-numeric value for Creatinine. Reported eGFR is based on the CKD-EPI 2021 equation that does not use a race coefficient.Performed By: #### CMP #### [facility] ([address] [place] [address] VIRGlucose [Mass/Vol]109 mg/iKCnlk50-98UryVrjtxcCovenant Health PlainviewComment on above:Performed By: #### CMP #### [facility] ([address] [place] [address] VIRPotassium [Moles/Vol]4.8 mmol/LNormal3.5-5.0ProCovenant Health PlainviewComment on above:Performed By: #### CMP #### [facility] ([facility]) [address] [place] [address] [place] [address] VIRProtein [Mass/Vol]6.2 g/dLNormal6.0-8.0ProCovenant Health PlainviewComment on above:Performed By: #### CMP #### [facility] ([address] [place] [address] VIRSodium [Moles/Vol]134 mmol/INlujgv032-109TllSujdoo [facility]ont HospitalComment on above:Performed By: #### CMP #### [facility] ([address] [place] [address] VIRUrea nitrogen [Mass/Vol]32 mg/dLHigh5-27ProCovenant Health PlainviewComment on above:Performed By: #### CMP #### [facility] ([address] [address] VIRCT ABDOMEN WO CONTon 49-84-1292KW ABDOMEN WO CONTCT ABDOMEN WO CONT CT [...] by John Membreno MD on 08/29/2025 3:59 PMNormalProCovenant Health PlainviewGI PANEL STOOL PATHOGEN PANELon 49-20-8027PZ PANEL STOOL PATHOGEN PANEL GIP GI PANEL STOOL PATHOGEN PANEL CancelledNoChildren's Hospital of [facility] MAGNESIUMon 17-77-7599Rmwncsrua [Mass/Vol]2.2 mg/dLNormal1.8-2.6Trinity Health SystemComment on above:Performed By: #### MG #### [facility] ([address] [place] [address] VIROSMOLALITY, URINEon 80-49-1559SLLZJ ESMVHCZSQN990 mOsm/kg J6Kouyvd814-0866HdjQdsmjb [facility] HospitalComment on above:Performed By: #### CBCA #### [facility] ([address] [place] [address] VIRPROTEIN, URINE, RANDOMon 55-28-5723PDZTZ PROTEIN, RANDOM (MG/L)60 mg/LNormal<120Trinity Health SystemComment on above:Performed By: #### CBCA #### [facility] ([address] [place] [address] VIRSODIUM, URINE, RANDOMon 62-39-7583Jyqqtl (U) [Moles/Vol]53 mmol/LNormalProCovenant Health PlainviewComment on above:Performed By: #### CBCA #### [facility] ([address] [address] VIRUREA RANDOM, URINEon 87-55-2486ZXNQY UREA NITROGEN,RANDOM 416 mg/dLNoChildren's Hospital of ColumbusComment on above:Performed By: #### CBCA #### [facility] ([address] [place] [address] VIRURINALYSISon 92-58-2558Jkxkdyuqk Ql (U)NegativeNormal NegativeTrinity Health SystemComment on above:Performed By: #### UA #### [facility] ([address] [address] VIRBLOOD/HGBNegativeNoalNegativeTrinity Health System Comment on above:Performed By: #### UA #### [facility] ([address] [address] VIRColor (U)YellowNormalYellowTrinity Health System Comment on above:Performed By: #### UA #### [facility] ([address] [address] VIRGlucose Ql (U)NegativeNormalNegative, 250 mg/dLProCovenant Health PlainviewComment on above:Performed By: #### UA #### [facility] ([address] [place] [address] VIRKetones Ql (U)NegativeNormalNegativeTrinity Health SystemComment on above:Performed By: #### UA #### [facility] ([address] [address] VIRLeukocyte esterase Test strip Ql (U)NegativeNormalNegative Trinity Health SystemComment on above:Performed By: #### UA #### [facility] ([address] [place] [address] VIRNitrite Ql (U)NegativeNormalNegativeProCovenant Health PlainviewComment on above:Performed By: #### UA #### [facility] ([address] [address] VIRPH,URINE6.7Ohweyz5.0-8.5ProMedica Good Samaritan HospitalComment on above:Performed By: #### UA #### [facility] ([address] [place] [address] VIRProtein Ql (U)NegativeNormalNegativeProCovenant Health PlainviewComment on above:Performed By: #### UA #### [facility] ([address] [place] [address] VIRSpecific gravity (U) [Rel density]1.168Mbgqwk7.003-1.035 [facility] Health SystemComment on above:Performed By: #### UA #### [facility] ([address] [place] [address] VIRTURBIDITYClearNormalClearProCovenant Health PlainviewComment on above:Performed By: #### UA #### [facility] ([address] [place] [address] VIRUROBILINOGEN0.2 eu/dLNormal0.2 eu/dL, 1.0 eu/dLProCovenant Health PlainviewComment on above:Performed By: #### UA #### [facility] ([address] [place] [address] VIRURINE CREATININE,RANDOMon 87-27-5059STJIN CREATININE,RDM 88.99 mg/dLNormalTrinity Health SystemComment on above:Performed By: #### CBCA #### [facility] ([address] [place] [address] VIRCBC WITH AUTO DIFFERENTIALon 55-70-2121IOAHRSAFA ABSOLUTE COUNT (10*3/UL) BY AUTOMATED COUNT0.1 10*3/uLNormal0.0-0.2ProMedica Good Samaritan HospitalComkresge eye institute on above:Performed By: #### CBCA #### [facility] ([address] [place] [address] VIRBASOPHILS RELATIVE PERCENT BY AUTOMATED COUNT1.0 %Normal Trinity Health SystemComkresge eye institute on above:Performed By: #### CBCA #### [facility] ([address] [place] [address] VIRCELLAVISION DIFFERENTIAL TYPEAUTOMATED DIFFERENTIALNormal Trinity Health SystemComment on above:Performed By: #### CBCA #### [facility] ([address] [place] [address] VIREosinophils (Bld) [#/Vol]0.3 10*3/uLNormal0.0-0.4Trinity Health SystemComment on above:Performed By: #### CBCA #### [facility] ([address] [address] VIREOSINOPHILS RELATIVE PERCENT BY AUTOMATED COUNT4.3 %Normal [facility] Health SystemComment on above:Performed By: #### CBCA #### [address] [address] VIRErythrocyte distribution width (RBC) [Ratio]14.4 %Normal 11.5-15ProCovenant Health PlainviewComment on above:Performed By: #### CBCA #### [facility] ([address] [address] VIRHematocrit (Bld) [Volume fraction]37.6 %Rai27-62QokQgcfunCovenant Health PlainviewComment on above:Performed By: #### CBCA #### [address] [place] [address] VIRHemoglobin (Bld) [Mass/Vol]12.6 g/mODfa13-83NspNelubfTrinity Health SystemComment on above:Performed By: #### CBCA #### [address] [place] [address] VIRLYMPHOCYTES ABSOLUTE COUNT (10*3/UL) BY AUTOMATED COUNT1.5 10*3/uLNormal1.0-3.5PMagruder Memorial HospitalComment on above:Performed By: #### CBCA #### [facility] ([facility]) [address] [place], [place] [address] [address] VIRLYMPHOCYTES RELATIVE PERCENT BY AUTOMATED COUNT19.6 %Normal [facility] Health SystemComkresge eye institute on above:Performed By: #### CBCA #### [facility] ([address] [place] [address] VIRMCH (RBC) [Entitic mass]30.3 yjWwjyuy15-28DsfOdzykcCovenant Health PlainviewComment on above:Performed By: #### CBCA #### [facility] ([address] [place] [address] VIRMCHC (RBC) [Mass/Vol]33.5 g/tCIxrrqh94-88HgnMtqvpfCovenant Health PlainviewComment on above:Performed By: #### CBCA #### [facility] ([address] [place] [address] VIRMCV (RBC) [Entitic vol]91 rLVcafpp72-128WfpNjtasb [facility]ont HospitalComment on above:Performed By: #### CBCA #### [facility] ([address] [place] [address] VIRMONOCYTES ABSOLUTE COUNT (10*3/UL) BY AUTOMATED COUNT0.7 10*3/uLNormal0.0-0.9Trinity Health SystemComkresge eye institute on above:Performed By: #### CBCA #### [facility] ([address] [place] [address] VIRMONOCYTES RELATIVE PERCENT BY AUTOMATED COUNT8.9 %Normal [facility] Health SystemComkresge eye institute on above:Performed By: #### CBCA #### [facility] ([address] [place] [address] VIRNEUTROPHILS ABSOLUTE COUNT BY AUTOMATED COUNT5.2 10*3/uL Normal1.5-6.6Trinity Health SystemComment on above:Performed By: #### CBCA #### [facility] ([facility]) [address] [place], [place] [address] [place] [address] VIRNEUTROPHILS RELATIVE PERCENT BY AUTOMATED COUNT66.2 %Normal [facility] Health SystemComment on above:Performed By: #### CBCA #### [facility] ([address] [place] [address] VIRPlatelet mean volume (Bld) [Entitic vol]9.2 fLNormal7-12 [facility] Health SystemComment on above:Performed By: #### CBCA #### [facility] ([address] [place] [address] VIRPlatelets (Bld) [#/Vol]190 10*3/uNPhxqnc821-530DzfYsmoukTrinity Health SystemComment on above:Performed By: #### CBCA #### [facility] ([address] [place] [address] VIRRBC COUNT4.16 X10E12/LNormal4.1-5.7Trinity Health SystemComment on above:Performed By: #### CBCA #### [facility] ([address] [place] [address] VIRWBC (Bld) [#/Vol]7.8 10*3/uLNormal4-11Tr[facility] Health SystemComment on above:Performed By: #### CBCA #### [facility] ([address] [place] [address] VIRCOMPREHENSIVE METABOLIC PANELon 51-83-4360Hadqbht [Mass/Vol]4.1 g/dLNormal3.2-5.3PMagruder Memorial HospitalComment on above: Performed By: #### CMP #### [facility] ([address] [place] [address] VIRALP [Catalytic activity/Vol]65 U/MAxjlpe82-678YqyAacozmCovenant Health PlainviewComment on above:Performed By: #### CMP #### [facility] ([place] [address] [place] [address] VIRALT [Catalytic activity/Vol]14 U/LNormal<=40ProCovenant Health PlainviewComment on above:Performed By: #### CMP #### [facility] ([place] [address] [place] [address] VIRAnion gap [Moles/Vol]12 mmol/LNormal5-15ProCovenant Health PlainviewComment on above:Performed By: #### CMP #### [facility] ([address] [place] [address] VIRAST [Catalytic activity/Vol]17 U/LNormal<=41ProCovenant Health PlainviewComment on above:Performed By: #### CMP #### [facility] ([address] [place] [address] VIRBilirubin [Mass/Vol]0.5 mg/dLNormal0.3-1.2PMagruder Memorial HospitalComment on above:Performed By: #### CMP #### [facility] ([address] [place] [address] VIRCalcium [Mass/Vol]9.0 mg/dLNormal8.5-10.5PMagruder Memorial HospitalComment on above:Performed By: #### CMP #### [facility] ([address] [place] [address] VIRChloride [Moles/Vol]102 mmol/ACqjuvu29-991OzdPbcqijCovenant Health PlainviewComment on above:Performed By: #### CMP #### [facility] ([place] [address] [place] [address] VIRCO2 [Moles/Vol]21 mmol/INjr05-09NqqLgdeemMagruder Memorial Hospital Comment on above:Performed By: #### CMP #### [facility] ([address] [address] VIRCreatinine [Mass/Vol]2.22 mg/dLHigh0.70-1.20ProCovenant Health PlainviewComment on above:Result Comment: METHOD TRACEABLE TO IDMS STANDARDPerformed By: #### CMP #### [facility] ([address] [address] VIRGFR/1.73 sq M.predicted among non-blacks MDRD (S/P/Bld) [Vol rate/Area]30 mL/min/{1.73_m2}Low>=60ProCovenant Health PlainviewComment on above:Result Comment: eGFR not reported due to non-numeric value for Creatinine. Reported eGFR is based on the CKD-EPI 2020 equation that does not use a race coefficient.Performed By: #### CMP #### [facility] ([address] [address] VIRGlucose [Mass/Vol]166 mg/cGDjjf41-71OceOxufztCovenant Health PlainviewComment on above:Performed By: #### CMP #### [facility] ([address] [address] VIRPotassium [Moles/Vol]5.8 mmol/LHigh3.5-5.0ProCovenant Health PlainviewComment on above:Performed By: #### CMP #### [address] [address] VIRProtein [Mass/Vol]7.0 g/dLNormal6.0-8.0ProCovenant Health PlainviewComment on above:Performed By: #### CMP #### [address] [address] VIRSodium [Moles/Vol]135 mmol/YZiflkl106-421KjjXgaktl [facility]ont HospitalComment on above:Performed By: #### CMP #### [facility] ([address] [place] [address] VIRUrea nitrogen [Mass/Vol]33 mg/dLHigh5-27ProCovenant Health PlainviewComment on above:Performed By: #### CMP #### [facility] ([address] [place] [address] VIRMAGNESIUMon 15-67-6302Wtucqrmxh [Mass/Vol]2.3 mg/dLNormal 1.8-2.6ProCovenant Health PlainviewComment on above:Performed By: #### MG #### [facility] ([address] [place] [address] VIRTROP I, HIGH SENSITIVITY 1 HOURon 98-66-5590FWFWPUAY I, HIGH SENSITIVITY8 ng/LNormal<21ProCovenant Health PlainviewComment on above: Performed By: #### [id number] #### [facility] ([address] [place] [address] VIRTROPONIN I, HIGH SENSITIVITY 0 HOURon 44-18-7493EHVRQBVJ I, HIGH SENSITIVITY7 ng/LNormal<21ProCovenant Health PlainviewComment on above: Performed By: #### [id number] #### [facility] ([address] [place] [address] VIRURINALYSIS WITH MICROSCOPICon 25-54-5210ZTBNSMYAX, TOTAL PRESENCE IN URINENegativeNormalNegativeBarnesville Hospital Comment on above:Performed By: #### [id number] ####[facility] (BEAKER)[address] [place], [place] [address]FWOXX IN URINEPresentAbnormalNone SeenBarnesville HospitalComment on above:Performed By: #### [id number] ####[facility] (BEAKER)[address] [place], [place] [address]Osqswwl (U)ClearNormal ClearBarnesville HospitalComment on above:Performed By: #### [id number] ####[facility] (BEAKER)[address] [place], [place] [address]Maler (U)YellowNormalColorless, Yellow, Light-YellowUnCleveland Clinic Euclid HospitalComment on above:Performed By: #### [id number] ####[facility] (BEAKER)[address] [place], [place] [address]CZSNDXR (MG/DL) IN URINENormalNormal NormalUnCleveland Clinic Euclid HospitalComment on above:Performed By: #### [id number] ####[facility] (BEAKER)[address] [place] [address] HEMOGLOBIN PRESENCE IN URINENegativeNormalNegativeUnCleveland Clinic Euclid HospitalComment on above:Performed By: #### [id number] ####[facility] (AKER)[address], [place] [address]OHEMXKJ CASTS GRADED/LPF IN URINE SEDIMENT BY YNDZZTEQMM74-02Tvhmaxwl7-5Kutfdlzlfz of [facility]edo Medical CenterComment on above:Performed By: #### [id number] ####[facility] (BEAKER)[address] [place], [place] [address]Furqqyk Ql (U)NegativeNormalNegativeUnCleveland Clinic Euclid HospitalComment on above:Performed By: #### [id number] ####[facility] (BEAKER)[address], [place] [address]GIELFABZM ESTERASE PRESENCE IN URINE BY TEST STRIPNegativeNormalNegativeUnCleveland Clinic Euclid HospitalComment on above:Performed By: #### [id number] ####[facility] (BEAKER)[address], [place] [address]XNTRW (#/LPF) IN URINE SEDIMENT OccasionalNormalNone Seen, Occasional, FewUnCleveland Clinic Euclid Hospital Comment on above:Performed By: #### [id number] ####[facility] (BEAKER)[address], [place] [address]YTSHBDZ PRESENCE IN URINENegativeNormalNegative [facility]ville HospitalComment on above:Performed By: #### [id number] ####[facility] ([facility])[address] [place] [address]lY (U)5.5 [pH] Normal5.0-8.0UnCleveland Clinic Euclid HospitalComment on above:Performed By: #### [id number] ####[facility] ([facility] [place] [address] Protein (U) [Mass/Vol]NegativeNormalNegativeUnCleveland Clinic Euclid Hospital Comment on above:Performed By: #### [id number] ####[facility] ([facility] [place] [address]WER (#/HPF) IN URINE SEDIMENT0-2NormalNone Seen, 0-2UnCleveland Clinic Euclid HospitalComment on above:Performed By: #### [id number] ####[facility] ([facility] [place], [place] [address]Vzqtnilm gravity (U) [Rel density]1.364Bsnsmd5.010-1.030UnCleveland Clinic Euclid HospitalComment on above:Performed By: #### [id number] ####[facility] ([facility] [place], [place] [address]TDIPNWYM EPITHELIAL CELLS (#/LPF) IN URINE SEDIMENTNone SeenNormalNone Seen, Occasional, FewUnCleveland Clinic Euclid HospitalComment on above:Performed By: #### [id number] ####[facility] ([facility] [place], [place] [address]NMTHXVTWGAGF (MG/DL) IN URINENormal NormalNormalUniversBluffton HospitalComment on above:Performed By: #### [id number] ####[facility] ([facility] [place], [place] [address]SGA (LEUKOCYTE) (#/HPF) IN URINE SEDIMENT0-2NormalNone Seen, 0-2UnCleveland Clinic Euclid HospitalComment on above:Performed By: #### [id number] ####[facility] ([facility])[address] [place], [place] [address]UVKIF CULTURE, ROUTINEon 08-10-2025 Bacteria identified Cx Nom (U)No growth at 48 hoursNoShelby Memorial HospitalComment on above:Performed By: #### [id number] ####[facility] ([facility])[address] [place] [address]Lkxfcb Visiton [id number] Trae Pineda 1950 M Date Provider Department Center 07/20/2025 FRANKO GRAHAM BOB [facility] Family History Problem Relation Age of Onset Heart failure Mother Prostate cancer Father Coronary artery disease Brother Family Status - Relation Status Age at Mother Father Brother Level of Service:87123 ND OFFICE/OUTPATIENT NEW MODERATE MDM 45 MINUTESNoal [facility]36on [id number] request received for Ezra. Pt has upcoming appt scheduled for 08/10/25. Please advise.NormalBarnesville HospitalOrders Onlyon [id number] Trae Pineda 1950 M Date Provider Department Center 05/27/2025 [id number], KIM BOB [facility]agon Family History Problem Relation Age of Onset Heart failure Mother Prostate cancer Father Coronary artery disease Brother Family Status - Relation Status Age at Mother Father Brother DeceasedNormalUniSelect Medical [facility] [place]36on Patient is requesting a medication refill to be sent to pharmacy. Thank you This phone message was created by the Ambulatory float staff. If you need patient support partner follow up regarding this patient, please make your appropriate clinic staff member aware. Thank you. [facility] Hemoglobin [Mass/volume] in BloodOrdered By: Moi Moss on 05-11-2025 Hemoglobin (Bld) [Mass/Vol]12.6 g/dLLow14.0-18.0J.W. Ruby Memorial HospitalFollow-Upon [id number] Trae Pineda 1950 M Date Provider Department Center 04/28/2025 MOI DHILLON [facility] Family History Problem Relation Age of Onset Heart failure Mother Prostate cancer Father Coronary artery disease Brother Family Status - Relation Status Age at Mother Father Brother Level of Service:55517 ND OFFICE/OUTPATIENT ESTABLISHED MOD MDM 28 [address] [facility] HospitalHPon 15-48-4841HAVtzelnb Of Present Illness Trae Pineda is a [...] and does not use drugs. Allergies Pregabalin, Ojqfaoc-dkx-pfn reductase inhibitors, and Hydralazine Medications Medications Prior [...] daily as directed. 90 tablet 2 03/25/2025 fa-tyr-WF-vit P-kmlhwv-bkndcqg (PreserVision AREDS 2 Plus MV) 200 mcg-15 [...] Vascular: No JVD. Cardiova (more content not included)...[facility] NURSNOTEon 34-36-6847ZDFHJKXUYZ educated pt on d/c instructions. This included: [...] wheeled off of unit with all of belongings.[facility] HospitalBasophils Auto (Bld) [#/Vol]on 78-36-6377Rjekkqduf (Bld) [#/Vol] 0.1 10 3/uL0.0-0.1FAvita Health System Galion HospitalBasophils/100 WBC Auto (Bld) on 61-46-8252Ksdahcatf/100 WBC (Bld)1.3 %0.2-2.0J.[facility] HospitalEosinophils/100 WBC Auto (Bld)on 91-06-1777Gxjmmhtuluc/100 WBC (Bld)6.4 % 0.9-7.0J.[facility]. [facility] HospitalErythrocyte distribution width Auto (RBC) [Ratio]on 70-07-5309Epariwrpuse distribution width (RBC) [Ratio]13.5 % 11.0-15.0J.[facility]. [facility] HospitalEstimated glomerular filtration rate (GFR) non- Americanon 29-21-2401ACN/1.73 sq M.predicted among non-blacks MDRD (S/P/Bld) [Vol rate/Area]38 mL/min/{1.73_m2}Low>=60 mL/min/1.73m 2FAvita Health System Galion HospitalGlucose mean value [Mass/volume] in Blood Estimated from glycated hemoglobinon 77-04-1390Hrgmpzk glucose Estimated from glycated hemoglobin (Bld) [Mass/Vol]154 mg/dLJ.W. Ruby Memorial HospitalHematocrit Auto (Bld) [Volume fraction]on 79-47-7797Vhjmeeckak (Bld) [Volume fraction]40.4 %Low42.0-54.0J.[facility] HospitalHemoglobin A1c percentageon 13-46-3255PmZ4l (Bld) [Mass fraction]7.0 %High4.5-6.2FAvita Health System Galion HospitalComment on above:ADA RECOMMENDED LIMIT 4.0 - 6.0ADA THERAPEUTIC TARGET < 7.0ACTION SUGGESTED> 7.0Hemoglobin [Mass/volume] in Bloodon 33-16-6832Lgydljxzas (Bld) [Mass/Vol]13.5 g/dLLow14.0-18.0[facility] Laboratory - Chemistry and Chemistry - challengeon 59-07-3442Dvqsavo [Mass/Vol] 9.2 mg/dL8.5-10.1FAvita Health System Galion HospitalChloride [Moles/Vol]101 mmol/L 98-107J.[facility] HospitalCO2 [Moles/Vol]27.6 mmol/L21.0-32.0 [facility] HospitalCreatinine [Mass/Vol]1.73 mg/dLHigh0.70-1.30 [facility] HospitalGFR/1.73 sq M.predicted MDRD (S/P/Bld) [Vol rate/Area]47 mL/min/{1.73_m2}Low>=60 mL/min/1.73m 2FAvita Health System Galion HospitalGlucose [Mass/Vol]194 mg/hRBuyh87-613PhznmglhlJ.W. [facility] Hospital Potassium [Moles/Vol]5.1 mmol/L3.5-5.1FParma Community General Hospitalodium [Moles/Vol]138 mmol/G700-448AjaidpqzpJ.W. Ruby Memorial HospitalUrea nitrogen [Mass/Vol]34.0 mg/dLHigh7.0-18.0J.[facility] HospitalUrea nitrogen/Creatinine [Mass ratio]19.7 mg/mgJ.W. [facility] Hospital Laboratory - Hematology and Cell countson 36-40-2107Fitgjmjd granulocytes/100 WBC (Bld)0.3 %0.0-0.5FAvita Health System Galion HospitalLeukocytes [#/volume] corrected for nucleated erythrocytes in Blood by Automated counon 93-31-3366QII corrected for nucl RBC Auto (Bld) [#/Vol]6.9 10 3/uL4.0-11.0J.[facility]. [facility] HospitalLymphocytes Auto (Bld) [#/Vol]on 54-18-0630Wrixqakpomr (Bld) [#/Vol]1.5 10 3/uL1.2-3.8J.[facility]. [facility] HospitalLymphocytes/100 WBC Auto (Bld)on 23-18-7804Bxbmhgfacvb/100 WBC (Bld)21.6 %20.5-60.0[place] Auto (RBC) [Entitic mass]on 95-97-0620OSD (RBC) [Entitic mass]30.8 pg25.9-34.0[facility] Auto (RBC) [Mass/Vol]on 87-39-0615WCQR (RBC) [Mass/Vol]33.4 g/dL29.9-35.2FAvita Health System Galion HospitalMCV Auto (RBC) [Entitic vol]on 24-12-8778JMV (RBC) [Entitic vol] 92.0 fL80.0-94.0J.[facility] HospitalMonocytes Auto (Bld) [#/Vol]on 20-03-4624Henlqmzea (Bld) [#/Vol]0.6 10 3/uL0.3-0.8J.[facility] HospitalMonocytes/100 WBC Auto (Bld)on 14-05-2296Cipyzgqgc/100 WBC (Bld)8.3 % 1.7-12.0J.[facility] HospitalNeutrophils Auto (Bld) [#/Vol]on 49-70-7463Qadxfsjvrzg (Bld) [#/Vol]4.3 10 3/uL1.4-6.5FAvita Health System Galion HospitalNeutrophils/100 WBC Auto (Bld)on 92-79-6720Rybabkxlnaz/100 WBC (Bld)62.1 % 43.0-75.0[facility] HospitalNo Panel Informationon 03-19-2025 Eosinophils # (Auto)0.4 10 3/uL0.0-0.7FAvita Health System Galion HospitalImmature Granulocyte # (Auto)0.02 10 3/uL0.00-0.03[facility] Platelet mean volume Auto (Bld) [Entitic vol]on 91-91-8169Gophezkw mean volume (Bld) [Entitic vol]11.4 fL9.5-13.5FAvita Health System Galion HospitalPlatelets Auto (Bld) [#/Vol]on 45-34-5893Tnhkkjdcz (Bld) [#/Vol]177 10 3/aB808-105 [facility] HospitalRBC Auto (Bld) [#/Vol]on 91-57-2889VNC (Bld) [#/Vol]4.39 10 6/uLLow4.70-6.10[facility] Jewish Hospitalerum or plasma anion gap determinationon 79-69-4227Ewwzr gap [Moles/Vol]14.5 mmol/[facility] HospitalMain OR Intraoperative Recordon 46-07-4474Ztbt OR Intraoperative RecordMain OR Intraoperative Record IntraOp Document Type FTPM Summary Primary Physician: John Cannon DO Finalized Date/Time: 03/16/25 09:58:11 Pt. Name: TRAE PINEDA Lorenzo MinayaB./Sex: 1950 Male Med Rec #: [id number] Physician: John Cannon DO Financial #: [id number] Pt. Type: P Room/Bed: / Admit/Disch: 03/16/25 [...] Deysi Smith Role Performed Surgeon - Primary Nozzle Operator - Primary Scrub - Primary Time In 03/16/25 09:33:00 03/16/25 09:33:00 03/16/25 09:33:00 Time Out 03/16/25 09:58:00 03/16/25 09:58:00 03/16/25 09:58:00 Procedure LUMBAR RADIO FREQUENCY LUMBAR RADIO FREQUENCY LUMBAR RADIO FREQUENCY ABLATION(Bilateral) ABLATION(Bilateral) ABLATION(Bilateral) Comments Last Modified By: Naeem PEREZ, Lula Hartley RN, Lula Tavares RN 03/16/25 09:57:56 03/16/25 09:57:56 03/16/25 09:57:56 Entry 4 Case Attendee Belen Hurley Role Performed Emergency Medical Service Coordinator Time In 03/16/25 09:33:00 Time Out 03/16/25 [...] No Time Out Lula Hartley RN, Given Abhijit Castro RN, Davis Mathew DO, [...] and tissue Entry 1 Skin Integrity Intact, [place], Warm, & Skin Abnormality No Dry Outcomes [...] Pillow Large Under Knees (more content not included)...[facility] CenterMain OR Preoperative Recordon 77-92-0621Xbzw OR Preoperative RecordMain OR Preoperative Record Holding Area Document Type FTPM Summary Primary Physician: John Cannon DO Finalized Date/Time: 03/16/25 08:23:13 Pt. Name: TRAE PINEDA Lorenzo Anderson/Sex: 1950 Male Med Rec #: [id number] Physician: John Cannon DO Financial #: [id number] Pt. Type: P Room/Bed: / Admit/Disch: 03/16/25 [...] Patient NPO after Midnight: No Results Reviewed 07 cheerios Comments: Personal Items: Dentures, Glasses, Personal [...] Ester Fong RN 03/16/25 08:23:10 Finalized By: Ester Fong RN Document Signatures Signed By: Ester Fong RN 03/16/25 08:23NoHighland District HospitalOperative Reporton 87-29-7245Vjphhfvro ReportOperative Report Diagnosis: M47.816, bilateral lumbar spondyloarthropathy [...] The patient agrees to continue currently prescribed/recommended therapies.[facility] InstituteComment on above:Result Comment: Electronically Signed By: John Cannon DO\.br\Date and Time Signed: 03/16/25 09:59 EDTAbstracton [id number] Trae Pineda 1950 M Date Provider Department Center 03/01/2025 RisaMOI M[facility] Family History Problem Relation Age of Onset Heart failure Mother Prostate cancer Father Coronary artery disease Brother Family Status - Relation Status Age at Mother Father Brother DeceasedNormalUniversity of Lake Granbury Medical CenterMain OR Intraoperative Recordon 10-70-9676Qcxe OR Intraoperative RecordMain OR Intraoperative Record IntraOp Document Type FTPM Summary Primary Physician: John Cannon DO Finalized Date/Time: 02/22/25 09:44:26 Pt. Name: TRAE PINEDA D.O.B./Sex: 1950 Male Med Rec #: [id number] Physician: John Cannon DO Financial #: [id number] Pt. Type: P Room/Bed: / Admit/Disch: 02/22/25 [...] Toni Toledo Role Performed Surgeon - Primary Nozzle Operator - Primary Scrub - Primary Time In 02/22/25 09:34:00 02/22/25 09:34:00 02/22/25 09:34:00 Time Out 02/22/25 09:43:00 02/22/25 09:43:00 02/22/25 09:43:00 Procedure MEDIAL BRANCH MEDIAL BRANCH MEDIAL BRANCH BLOCK(Bilateral) BLOCK(Bilateral) BLOCK(Bilateral) Comments Last Modified By: Deysi Castro RN, RN, Madison A Pritchard RN, Madison A 02/22/25 09:43:22 02/22/25 09:43:22 02/22/25 09:43:22 Entry 4 Case Attendee Belen Hurley Role Performed Emergency Medical Service Coordinator Time In 02/22/25 09:34:00 Time Out 02/22/25 09:43:00 Procedure MEDIAL BRANCH BLOCK(Bilateral) Comments Last Modified By: Deyis Castro RN 02/22/25 09:43:22 Perioperative Protocols FTPM [...] Last Modified By: Deysi Castro RN 02/22/25 09:35:50 Post-Care Text: The patient [...] and tissue Entry 1 Skin Integrity Intact, [place], Warm, & Skin Abnormality No Dry Outcomes [...] Checked Yes By Pr (more content not included)...[facility] InstituteMain OR Preoperative Recordon 65-75-7626Ytll OR Preoperative RecordMain OR Preoperative Record Holding Area Document Type FTPM Summary Primary Physician: John Cannon DO Finalized Date/Time: 02/22/25 09:08:31 Pt. Name: TRAE PINEDA/Sex: 1950 Male Med Rec #: [id number] Physician: John Cannon DO Financial #: [id number] Pt. Type: P Room/Bed: / Admit/Disch: 02/22/25 [...] glassesa and lower partial dentures. Pain Comment: 8/10 low back pain Operative Site Yes Marking: [...] Signatures Signed By: Ester Fong RN 02/22/25 09:08[facility] InstituteOffice Visiton 45-23-9633Pbapys-up [id number] Trae Pineda 1950 M Date Provider Department Center 02/17/2025 MOI DHILLON Family History Problem Relation Age of Onset Heart failure Mother Prostate cancer Father Coronary artery disease Brother Family Status - Relation Status Age at Mother Father Brother Level of Service:21654 [place] OFFICE/OUTPATIENT ESTABLISHED HIGH MDM 40 [facility] [id number]-[id number] Trae Pineda 1950 M Date Provider Department Center 02/02/2025 [place] Family History Problem Relation Age of Onset Prostate cancer Father Family Status - Relation Status Age at Father Level of Service:49285 ND OFFICE/OUTPATIENT ESTABLISHED MOD MDM 30 MIN Reason for Visit and Comments: Follow-up [853751] - 3 month follow upNormalUniversity of Lake Gran[facility] Main OR Intraoperative Recordon 90-75-1897Wqie OR Intraoperative RecordMain OR Intraoperative Record IntraOp Document Type FTPM Summary Primary Physician: John Cannon DO Finalized Date/Time: 02/01/25 14:24:39 Pt. Name: TRAE PINEDA /Sex: 1950 Male Med Rec #: [id number] Physician: John Cannon DO Financial #: [id number] Pt. Type: P Room/Bed: / Admit/Disch: 02/01/25 13:48:51 - Institution: Case Times FTPM Entry 1 Patient Times In Room 02/01/25 14:16:00 Out Room 02/01/25 14:25:00 Procedure Times Start 02/01/25 14:19:00 Stop 02/01/25 14:24:00 Anesthesia Times Last Modified By: Lula Hartley RN 02/01/25 14:24:32 Case Attendance FTPM Entry 1 Entry 2 Entry 3 Case Attendee John Cannon DO, RN, Lula Castro RN, Dyesi Luis Role Performed Surgeon - Primary Nozzle Operator - Primary Scrub - Primary Time In 02/01/25 14:16:00 02/01/25 14:16:00 02/01/25 14:16:00 Time Out 02/01/25 14:25:00 02/01/25 14:25:00 02/01/25 14:25:00 Procedure MEDIAL BRANCH MEDIAL BRANCH MEDIAL BRANCH BLOCK(Bilateral) BLOCK(Bilateral) BLOCK(Bilateral) Comments Last Modified By: Naeem PEREZ, Lula Hartley RN, Lula Hartley RNLula 02/01/25 14:24:33 02/01/25 14:24:33 02/01/25 14:24:33 Entry 4 Case Attendee Belen Hurley Role Performed Emergency Medical Service Coordinator Time In 02/01/25 14:16:00 Time Out 02/01/25 [...] Time Out Lula Hartley RN, Given Participants Matthew PEREZ, Davis Mathew DO, Bradford A., Daniel, Alissa M Time Out Complete 02/01/25 [...] and tissue Entry 1 Skin Integrity Intact, [place], Warm, & Skin Abnormality No Dry Outcomes [...] Under Knees Press Points Checked Yes By Lula Hartley RN Outcomes Met? Yes Last Modified By (more content not included)...[facility] Main OR Preoperative Recordon 06-35-5867Emjh OR Preoperative RecordMain OR Preoperative Record Holding Area Document Type FTPM Summary Primary Physician: John Cannon DO Finalized Date/Time: 02/01/25 14:09:13 Pt. Name: TRAE PINEDA/Sex: 1950 Male Med Rec #: [id number] Physician: John Cannon DO Financial #: [id number] Pt. Type: P Room/Bed: / Admit/Disch: 02/01/25 13:48:51 - Institution: Case Times Holding FTPM Pre-Care [...] dentures and medical alert bracelet. Pain Comment: 06/27 low back pain Operative [...] Signatures Signed By: Ester Fong RN 02/01/25 14:09NormalFulton County Health CenterOrders Onlyon 14-49-1013Muoitf [id number] Trae Pineda 1950 M Date Provider Department Center 01/28/2025 [facility] Family History Problem Relation Age of Onset Prostate cancer Father Family Status - Relation Status Age at FatherNormalUniversBluffton Hospital36on 96-62-225030Ujnndj potassium 01/14/2025 is within normal range. 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 [facility] HealthcareTestosterone Zdyiv315 ng/yC263-266BzwhppmqyJ.W. Ruby Memorial HospitalComment on above:Adult male reference interval is based on a population ofhealthy nonobese males (BMI <30) between 19 and 39 yearsold. Nate et.al. JCEM 2017,102;5186-7476. PMID:[id number].Estimated glomerular filtration rate (GFR) non- Americanon 00-71-4343ONO/1.73 sq M.predicted among non-blacks MDRD (S/P/Bld) [Vol rate/Area]Estimated glomerular filtration rate (GFR) non- AmericanLow>=60 mL/min/1.73m 2FAvita Health System Galion HospitalLaboratory - Chemistry and Chemistry - challengeon 39-99-2090Gapxbaz [Mass/Vol]9.1 mg/dL8.5-10.1FAvita Health System Galion HospitalChloride [Moles/Vol] 106 mmol/I74-922MnfggzoulJ.W. Ruby Memorial HospitalCO2 [Moles/Vol]25.6 mmol/L 21.0-32.0[facility] HospitalCreatinine [Mass/Vol]1.63 mg/dLHigh 0.70-1.30J.[facility] HospitalGFR/1.73 sq M.predicted MDRD (S/P/Bld) [Vol rate/Area]50 mL/min/{1.73_m2}Low>=60 mL/min/1.73m [address] [place], [place] [address]Glucose [Mass/Vol]162 mg/vRAdpq10-122RtuhxbbhaJ.W. Ruby Memorial HospitalPotassium [Moles/Vol]4.7 mmol/L3.5-5.1FAvita Health [facility] Sodium [Moles/Vol]140 mmol/U634-874LzgojltiyJ.W. Ruby Memorial HospitalUrea nitrogen [Mass/Vol]34.0 mg/dLHigh7.0-18.0J.[facility] HospitalUrea nitrogen/Creatinine [Mass ratio]20.9 mg/mgMercy Health – The Jewish Hospitalerum or plasma anion gap determinationon 85-37-8106Qntmb gap [Moles/Vol]Serum or plasma anion gap determinationJ.W. Ruby Memorial Hospital36on Regarding lab results from 12/28/2024: MD Tatiana Estrella MA Blood test is ok except for mildly elevated potassium. I want him to get another BMP in 2 weeks. Spoke with patient and he will have repeat BMP in 2 weeks. He verbalized understanding.[facility] HospitalTelephoneon 12-31-2024 [id number] Trae Pineda Lorenzo 1950 Date Provider Department Center 12/31/2024 [facility] Family History Problem Relation Age of Onset Prostate cancer Father Family Status - Relation Status Age at FatherNormalUniversBluffton HospitalEstimated glomerular filtration rate (GFR) non- Americanon 94-55-7832WKT/1.73 sq M.predicted among non- blacks MDRD (S/P/Bld) [Vol rate/Area]Estimated glomerular filtration rate (GFR) non- AmericanLow>=60 mL/min/1.73m 2FAvita Health System [facility] Hospital Laboratory - Chemistry and Chemistry - challengeon 73-52-0176Mgvhsyj [Mass/Vol] 9.5 mg/dL8.5-10.1FAvita Health System Galion HospitalChloride [Moles/Vol]105 mmol/L 98-107J.[facility]. [facility] Memorial HospitalCO2 [Moles/Vol]29.9 mmol/L21.0-32.0 [facility] HospitalCreatinine [Mass/Vol]1.61 mg/dLHigh0.70-1.30 [facility] HospitalGFR/1.73 sq M.predicted MDRD (S/P/Bld) [Vol rate/Area]51 mL/min/{1.73_m2}Low>=60 mL/min/1.73m 2FAvita Health System Galion HospitalGlucose [Mass/Vol]131 mg/iFUfdh93-049SxxypebgpJ.W. [facility] Hospital Magnesium [Mass/Vol]2.4 mg/dL1.8-2.4FAvita Health System Galion HospitalPotassium [Moles/Vol]5.2 mmol/LHigh3.5-5.1FParma Community General Hospitalodium [Moles/Vol]142 mmol/B361-952RifwtgmijJ.W. Ruby Memorial HospitalUrea nitrogen [Mass/Vol]33.0 mg/dLHigh7.0-18.0J.[facility] HospitalUrea nitrogen/Creatinine [Mass ratio]20.5 mg/mgJ.W. Ruby Memorial Hospital Office Visiton 70-95-1997Xdfwlp-up [id number] Trae Pineda 1950 M Date Provider Department Center 12/28/2024 MO[facility] DHILLON [facility] Family History Problem Relation Age of Onset Prostate cancer Father Family Status - Relation Status Age at Father Level of Service:59225 ND OFFICE/OUTPATIENT ESTABLISHED MOD MDM 30 [facility] Hospitalerum or plasma anion gap determinationon 89-57-7346Enkjv gap [Moles/Vol]Serum or plasma anion gap determinationJ.W. Ruby Memorial HospitalMain OR Intraoperative Recordon 42-17-4228Rbuq OR Intraoperative RecordMain OR Intraoperative Record IntraOp Document Type FTPM Summary Primary Physician: John Cannon DO Finalized Date/Time: 12/07/24 08:53:30 Pt. Name: TRAE PINEDA/Sex: 1950 Male Med Rec #: [id number] Physician: John Cannon DO Financial #: [id number] Pt. Type: P Room/Bed: / Admit/Disch: 12/07/24 [...] Smith Role Performed Anesthesiologist Surgeon - Primary Nozzle Operator - Primary Field Installer Time In 12/07/24 08:17:00 12/07/24 08:17:00 12/07/24 [...] Toni Casper RN, Julia Mathews Role Performed Emergency Medical Service Coordinator Scrub - Relief Scrub - Primary Time [...] Pennie PEREZ, Davis Baires DO, Bradford A., Franko Carrasquillo CRNA, Sagar PEREZ, Lia Elkins Amy Time Out Complete 12/07/24 [...] and tissue Entry 1 Skin Integrity Intact, [place], Warm, & Skin Abnormality No Dry Outcomes Met? Yes Last Modified By: Ricky (more content not included)...[facility] CenterMain OR Preoperative Recordon 68-77-8735Zyat OR Preoperative RecordMain OR Preoperative Record Holding Area Document Type FTPM Summary Primary Physician: John Cannon DO Finalized Date/Time: 12/07/24 08:04:53 Pt. Name: TRAE PINEDA Lorenzo Anderson/Sex: 1950 Male Med Rec #: [id number] Physician: John Cannon DO Financial #: [id number] Pt. Type: P Room/Bed: / Admit/Disch: 12/07/24 [...] RN 12/07/24 07:27 Barb Schmidt RN 12/07/24 08:04[facility] InstituteOperative Report on 52-14-6919Iczzzdqix ReportOperative Report Diagnosis: m48.062 lumbar stenosis with [...] then advanced into the appropriate space using emya-qy-gnilldjdyl and confirmed by fluoroscopy and contrast spread. [...] will call with any questions or issues periprocedurally.[facility] InstituteComment on above:Result Comment: Electronically Signed By: John Cannon DO\Date and Time Signed: 12/07/24 08:54 ESTDocumentationon 35-06-5395Rqxecjkygfrak [id number] Trae Pineda 1950 M Date Provider Department Center 12/02/2024 45244-ZDIBVDVMORENITA LARSEN None Family History Problem Relation Age of Onset Prostate cancer Father Family Status - Relation Status Age at FatherNormalUniversity of Lake Granbury Medical CenterBasophils Auto (Bld) [#/Vol]on 81-96-3878Xwmjujthv (Bld) [#/Vol]Automated basophil count0.0-0.1FAvita Health System Galion HospitalBasophils/100 WBC Auto (Bld)on 37-37-4309Fgdsberxs/100 WBC (Bld)Automated basophil %0.2-2.0[facility] Eosinophils/100 WBC Auto (Bld)on 31-21-5988Gkhlqtizgrn/100 WBC (Bld)Automated eosinophil %0.9-7.0J.[facility] HospitalErythrocyte distribution width Auto (RBC) [Ratio]on 76-09-4391Uekifhtezwp distribution width (RBC) [Ratio]Erythrocyte distribution width [Ratio] by Automated count11.0-15.0 [facility] HospitalGlucose mean value [Mass/volume] in Blood Estimated from glycated hemoglobinon 84-43-3090Tnuglop glucose Estimated from glycated hemoglobin (Bld) [Mass/Vol]Glucose mean value [Mass/volume] in Blood Estimated from glycated hemoglobinJ.W. Ruby Memorial HospitalHematocrit Auto (Bld) [Volume fraction]on 61-36-2881Jsvfzeejpd (Bld) [Volume fraction] Hematocrit [Volume Fraction] of Blood by Automated gunzhJtw06.0-54.0J.[facility] HospitalHemoglobin [Mass/volume] in Bloodon 30-74-2130Zgoltgiwdl (Bld) [Mass/Vol]Hemoglobin [Mass/volume] in OslyyZiv03.0-18.0J.[facility] HospitalIron binding capacity [Mass/volume] in Serum or Plasmaon 64-10-0210Oydg binding capacity [Mass/Vol]Iron binding capacity [Mass/volume] in Serum or Uevgxc791.0-450.0J.[facility] HospitalIron saturation [Mass Fraction] in Serum or Plasmaon 08-11-7833Amij saturation [Mass fraction] Iron saturation [Mass Fraction] in Serum or PlasmaJ.W. Ruby Memorial HospitalLaboratory - Chemistry and Chemistry - challengeon 01-73-3609Ojvcbnaes (Vitamin B12) [Mass/Vol]462 pg/pD525-6222WnymibewcJ.W. Ruby [facility] Hospital Comment on above:Performed at: [facility] [address] [id number] Director: Derrick Smith PhD, Phone: [phone] [Mass/Vol]182.0 ng/mL26.0-388.0J.[facility] Memorial HospitalIron [Mass/Vol] 59.0 ug/dLLow65.0-175.0[facility] HospitalLaboratory - Hematology and Cell countson 01-60-1663HcQ2l (Bld) [Mass fraction]7.0 %High4.5-6.2FAvita Health System Galion HospitalComment on above:ADA RECOMMENDED LIMIT 4.0 - 6.0ADA THERAPEUTIC TARGET < 7.0ACTION SUGGESTED> 7.0Immature granulocytes/100 WBC (Bld) 0.3 %0.0-0.5FAvita Health System Galion HospitalLeukocytes [#/volume] corrected for nucleated erythrocytes in Blood by Automated counon 75-01-4919JLU corrected for nucl RBC Auto (Bld) [#/Vol]Leukocytes [#/volume] corrected for nucleated erythrocytes in Blood by Automated coun4.0-11.0[facility] Lymphocytes Auto (Bld) [#/Vol]on 86-53-5986Mtlqbmakfzv (Bld) [#/Vol]Lymphocytes [#/volume] in Blood by Automated count1.2-3.8[facility] Lymphocytes/100 WBC Auto (Bld)on 61-92-9479Klhxxvmgqni/100 WBC (Bld) Lymphocytes/100 leukocytes in Blood by Automated count20.5-60.0Sum[facility] HealthH Auto (RBC) [Entitic mass]on 03-24-1289ZDF (RBC) [Entitic mass]MCH [Entitic mass] by Automated count25.9-34.0J.[facility] HospitalMCHC Auto (RBC) [Mass/Vol]on 24-11-9417TLNF (RBC) [Mass/Vol]MCHC [Mass/volume] by Automated count29.9-35.2FAvita Health System Galion HospitalMCV Auto (RBC) [Entitic vol]on 03-07-7557TCG (RBC) [Entitic vol]MCV [Entitic volume] by Automated count80.0-94.0J.[facility] HospitalMonocytes Auto (Bld) [#/Vol]on 43-78-6309Wqphcwbqo (Bld) [#/Vol]Automated blood monocyte count0.3-0.8 [facility] HospitalMonocytes/100 WBC Auto (Bld)on 11-17-2024 Monocytes/100 WBC (Bld)Automated monocyte %1.7-12.0J.[facility] HospitalNeutrophils Auto (Bld) [#/Vol]on 90-32-7116Mzthcaauvym (Bld) [#/Vol] Neutrophils [#/volume] in Blood by Automated count1.4-6.5FAvita Health System Galion HospitalNeutrophils/100 WBC Auto (Bld)on 65-65-8515Yobcmdivefd/100 WBC (Bld)Automated neutrophil %43.0-75.0J[facility] HospitalNo Panel Informationon 52-21-5740Zmqzxvkjwyy # (Auto)0.4 10 3/uL0.0-0.7FAvita Health System Galion HospitalFolate12.10 ng/mL8.60-58.90[facility] Immature Granulocyte # (Auto)0.02 10 3/uL0.00-0.03J.[facility]. [facility] HospitalPlatelet mean volume Auto (Bld) [Entitic vol]on 18-26-2390Bsutpjla mean volume (Bld) [Entitic vol]Platelet mean volume [Entitic volume] in Blood by Automated count9.5-13.5FAvita Health System Galion HospitalPlatelets Auto (Bld) [#/Vol]on 51-47-7551Mrvasxovn (Bld) [#/Vol]Platelets [#/volume] in Blood by Automated uklax764-018OwtfxolyeJ.W. Ruby Memorial HospitalRBC Auto (Bld) [#/Vol]on 89-98-1423RAN (Bld) [#/Vol]Erythrocytes [#/volume] in Blood by Automated count Low4.70-6.10J.[facility] HospitalFollow-Upon 75-47-8666Djkefu-Up [id number] Trae Pineda 1950 M [facility] Provider Department Center 11/03/[address] [place] [address] [address] Family History Problem Relation Age of Onset Prostate cancer Father Family Status - Relation Status Age at Father Level of Service:[address]6101 [place] OFFICE/OUTPATIENT ESTABLISHED MOD MDM 30 MIN Reason for Visit and Comments: Benign Prostatic Hypertrophy [[id number]] Hypogonadism [185] - Follow-up TRUS and labsNormalUniversity of Lake Granbury Medical CenterOrders Onlyon 67-53-5451Gpklbf [id number] Trae Pineda 1950 M Date Provider Department Center 11/02/[address] [place] [address] [facility] Family History Problem Relation Age of Onset Prostate cancer Father Family Status - Relation Status Age at FatherNormalUniversity of Lake Granbury Medical CenterOrders Onlyon 72-69-8515Aluuob [id number] Trae Pineda 1950 [facility] Provider Department Center 10/27/[address] [place] [address] [facility] Second Fl Family History Problem Relation Age of Onset Prostate cancer Father Family Status - Relation Status [facility] at [facility]NormalUniversjoint township district [facility] Medical CenterMain OR Preoperative Recordon 28-88-1018Wonn OR Preoperative RecordMain OR Preoperative Record Holding Area Document Type [facility] Summary Primary Physician: John Cannon DO Finalized Date/Time: 09/08/24 10:57:05 Pt. Name: TRAE PINEDAO.B./Sex: 1950 Male Med Rec #: [id number] Physician: John Cannon DO Financial #: [id number] Pt. Type: P Room/Bed: / Admit/Disch: 09/08/24 [...] Signatures Signed By: Barb Schmidt RN 09/08/24 10:57[facility] InstituteOffice Visiton 95-81-5020Naoerk-up [id number] Trae Pineda 1950 M Date Provider Department Center 08/31/2024 RisaMOI MOSS [facility] Family History Problem Relation Age of Onset Prostate cancer Father Family Status - Relation Status Age at Father Level of Service:31749 ND OFFICE/OUTPATIENT ESTABLISHED MOD MDM 30 MINNormal [facility] CenterCT CHEST WO CONon 31-90-9621ED CHEST WO CON EXAMINATION: CT CHEST WO [...] Electronically authenticated by: SLOAN SOSA Date: 2023-03-07 10:24[facility] CampusTESTOSTERONE, FREE,DIRECT, TOTALon 47-21-7435Mfyy Testosterone(Direct)10.1 pg/mLNormal6.6-18.1The [facility] HospitalComment on above:Result Comment: Performed at: BNPerformed By: #### LBCLH #### [facility] [address] [place] [address] Dr. Zan EscalanteTestosterone [Mass/Vol]622 ng/jYNwnesw184-656Trm [facility]'s Hospitalment on above:Result Comment: Adult male reference interval is based on a population of healthy nonobese males (BMI <30) between 19 and 39 years old. Nate et.al. JCEM 2017,102;8262-4847. PMID: 10653327. Performed at: CBPerformed By: #### LBCLH #### [facility] [address] [place] [address] Dr. Zan DesirTRADIOLon 33-50-4938Nwonyzmsy07.4 pg/mLNormal7.6-42.6The [facility] HospitalComment on above:Result Comment: Tenzin ECLIA methodology Performed By: #### LBCLH #### [facility] [address] [place] [address] Dr. Zan EscalanteFSHon 99-03-8603HKU3.3 mIU/mLCritically low1.5-12.4The [facility] HospitalComment on above:Performed By: #### LBCFSH #### [facility] [address] [place] [address] Dr. Zan EscalanteLUTEINIZING HORMONE (LH)on 39-43-3754UL<0.3Critically low1.7-8.6 The [facility] HospitalComment on above:Performed By: #### LBCLH #### [facility] [address] [place] [address] Dr. Zan EscalantePROLACTINon 42-04-1288Tqamqdoid3.5 ng/mLNormal4.0-15.2The [facility] HospitalComment on above:Performed By: #### LBCLH #### [facility] [address] [place] [address] Dr. Zan EscalanteSEX HORMONE-BINDING GLOBULINon 65-36-3767Wxb Horm Binding Glob, Serum28.3 nmol/YZewdbl03.3-76.4The [facility] Children's Hospitalment on above:Performed By: #### SEXHBG #### [facility] [address] [place] [address] Dr. Zan EscalanteCHEMISTRYOrdered By: Rod Sky on 09-58-9359Fjajyff [Mass/Vol] 157 mg/sUQauv74 - 99 mg/dLOU MEDICAL CENTER, [facility] [place] POC SubsectionPOC Device [id number] Interpretation CodeFT POC SubsectionPOC User [id number] Interpretation CodeOU MEDICAL C[facility], [facility] [place] POC SubsectionPOC UsernameETHOMAS DARBYInvalid Interpretation Code [facility] [place] POC SubsectionTESTOSTERONE, FREE,DIRECT, TOTALon 66-44-1195Sqiy Testosterone(Direct)4.2 pg/mLCritically low6.6-18.1The [facility] HospitalComment on above:Result Comment: Performed at: BNPerformed By: #### TESTFRD #### [facility] [address] [place] [address] Dr. Zan EscalanteTestosterone [Mass/Vol]171 ng/dLCritically mge534-592Ufh [facility] HospitalComment on above:Result Comment: Adult male reference interval is based on a population of healthy nonobese males (BMI <30) between 19 and 39 years old. Travtheron, et.al. JCEM 2017,102;8270-4881. PMID: 29213566. Performed at: CBPerformed By: #### TESTFRD #### [facility] [address] [place] [address] Dr. Zan DesirTRADIOLon 03-76-9294Klkporudr58.9 pg/mLNormal7.6-42.6The [facility] HospitalComment on above:Result Comment: Tenzin ECLIA methodology Performed By: #### LBCLH #### [facility] [address] [place] [address] Dr. Zan Doyle 37-84-8994KZZ4.0 mIU/mLNormal1.5-12.4[facility] Comment on above:Performed By: #### LBCFSH #### [facility] [address] [place] [address] Dr. Zan EscalanteLUTEINIZING HORMONE (LH)on 73-76-4315BG4.7 mIU/mLNormal1.7-8.6The [facility] HospitalComment on above:Performed By: #### LBCLH #### [facility] [address] [address] [address] Zan EscalantePROLACTINon 20-94-8065Waqzztjfc5.6 ng/mLNormal4.0-15.2The [facility] HospitalComment on above:Performed By: #### LBCLH #### [facility] [address] [address] [address] Zan EscalanteSEX HORMONE-BINDING GLOBULINon 29-70-7997Iaq Horm Binding Glob, Serum22.7 nmol/APgjjob12.3-76.4The [facility] HospitalComment on above:Performed By: #### SEXHBG #### [facility] [address] [place] [address] Dr. Zuluaga ChangECHOCARDIO M/2D COMPLETEon 26-18-1266KRDRFJZTNI M/2D COMPLETE Patient: TRAE PINEDA Exam Date: 07/31/2022 : 1950 Gender:M Ordering : DR MOI MOSS M.D. Admission #: [id number] Family : Order #: [id number] CLICK HERE TO VIEW EXAM ECHOCARDIOGRAM REPORT [...] by: Moi Moss M.D. on 07/31/2022 at 18:09[facility]*URINE CATH CULTUREon 07-02-2022*URINE CATH CULTUREClinical Report: (D) Specimen/Source: URINE/INTRAOP SPEC Collected: 07/02/2022 14:53 Status: Final Last Updated: 07/04/2022 09:03 (1) 1. Urine GRAM (Final) Many Polys Few Gram Positive Cocci In Pairs And Chains ISO (Final) Staphylococcus epidermidis >10,000 Cfu/mL ISOLATE: Staphylococcus epidermidis JOSEPH (mcg/ml) NITROFURANTOIN (FT) <=16 Susceptible OXACILLIN (OX) <=0.25 Susceptible TETRACYCLINE (TE) <=0.5 Susceptible VANCOMYCIN (VA) 1 SusceptiblePeoples Hospital Comment on above:Order Comment: 1. UrinePerformed By: #### [id number] #### [facility] [address]Operative Reporton 36-43-3918Xerwbdkwx ReportMR#: [id number] [facility] Pt. Name: Trae Pineda Room #: 0C Discharge Date: Birthdate: 1950 OPERATIVE REPORT DATE OF SURGERY: 07/02/2022 SURGEON: Diony Ariza MD FURNITURE RENTAL CONSULTANT: Kolby ARMANDO PGY3 PREOPERATIVE DIAGNOSIS: Benign prostatic [...] the room agreed. A well lubricated rigid 22-Anguillan cystoscopic sheath with a 30-degree lens was [...] bleeding due to scope trauma so 18 azeri leggett was inserted. Urine was with significant [...] Jarrett MD Date Trans: 07/02/2022 03:30 P/ DN_JN:[id number] cc: Cristobal Kearns D.O. [address] [place] [address] A [facility] [address]RyxarqGfzPeoples HospitalPO GLUCOSE LABon 88-76-1626Twpptue [Mass/Vol]130 mg/bIDvje21-920Znx [facility] HospitalComment on above:Performed By: #### [id number] #### [facility] [address] [place] [address], USAMICROALBUMIN URINEon 12-08-7777Wpjrjsy, Urine42.2 ug/mL NormalNot Estab.The [facility] HospitalComment on above:Performed By: #### LBCLH #### [facility] [address] [place] [address] Dr. Zan Pearl AUTO DIFFon 44-37-3278IMAY #0.1 103/ulNormal0.0-0.1The [facility] HospitalComment on above:Performed By: #### CBC #### [facility] [address] [address] [address] Zan EscalanteBasophils/100 WBC (Bld)1.1 %Normal0.2-2.0[facility] Comment on above:Performed By: #### CBC #### [facility] [address] [place] [address] Dr. Zan Clifton #0.6 103/ulNormal0.0-0.7The [facility] HospitalComment on above: Performed By: #### CBC #### [facility] [address] [place] [address] Dr. Zan Valerioosinophils/100 WBC (Bld)7.0 %Normal0.9-7.0[facility] Comment on above:Performed By: #### CBC #### [facility] [address] [place] [address] Dr. Zan Valeriorythrocyte distribution width (RBC) [Ratio]13.8 %Tgmifl71.0-15.0 The [facility] HospitalComment on above:Performed By: #### CBC #### [facility] [address] [place] [address] Dr. Zan EscalanteHematocrit (Bld) [Volume fraction]40.9 %Critically low42.0-54.0 [facility] - CincinnatiComment on above:Performed By: #### CBC #### [facility] [address] [place] [address] Dr. Zan EscalanteHemoglobin (Bld) [Mass/Vol]13.1 g/dLCritically low14.0-18.0The [facility] HospitalComment on above:Performed By: #### CBC #### [facility] [address] [place] [address] Dr. Zan Marley #0.04 10e3/ulCritically high0.00-0.03[facility] Comment on above:Performed By: #### CBC #### [facility] [address] [place] [address] Dr. Zan Marley %0.5 %Normal0.0-0.5The [facility] HospitalComment on above: Performed By: #### CBC #### [facility] [address] [place] [address] Dr. Zan Luke #3.0 103/ulNormal1.2-3.8The [facility] HospitalComment on above:Performed By: #### CBC #### [facility] [address] [place] [address] Dr. aZn Guerreromphocytes/100 WBC (Bld)33.4 %Fdpbrq68.5-60.0The [facility] HospitalComment on above:Performed By: #### CBC #### [facility] [address] [place] [address] Dr. Zan Adrian DIFF REQNONormalThe [facility] HospitalComment on above: Performed By: #### CBC #### [facility] [address] [place] [address] Dr. Zan Ellison (RBC) [Entitic mass]29.6 apJrztct38.9-34.0The [facility] HospitalComment on above:Performed By: #### CBC #### [facility] [address] [place] [address] Dr. Zan Cardona (RBC) [Mass/Vol]32.0 g/uJYaousf95.9-35.2The [facility] HospitalComment on above:Performed By: #### CBC #### [facility] [address] [place] [address] Dr. Zan Cm (RBC) [Entitic vol]92.3 mJVttlub00.0-94.0The [facility] HospitalComment on above:Performed By: #### CBC #### [facility] [address] [place] [address] Dr. Zan Monaco #0.8 103/ulNormal0.3-0.8The [facility] HospitalComment on above:Performed By: #### CBC #### [facility] [address] [place] [address] Dr. Zan Mendezocytes/100 WBC (Bld)9.4 %Normal1.7-12.0[facility] Comment on above:Performed By: #### CBC #### [facility] [address] [address] [address] Zan SoaresUT #4.3 103/ulNormal1.4-6.5The [facility] HospitalComment on above:Performed By: #### CBC #### [facility] [address] [place] [address] Dr. Zan Soaresutrophils/100 WBC (Bld)48.6 %Rzgjpt53.0-75.0The [facility] HospitalComment on above:Performed By: #### CBC #### [facility] [address] [place] [address] Dr. Zan EscalantePlatelet mean volume (Bld) [Entitic vol]11.2 fLNormal9.5-13.5The [facility] HospitalComment on above:Performed By: #### CBC #### [facility] [address] [place] [address] Dr. Zan EscalantePLT185 103/uzMkicjc970-391Hwe [facility] HospitalComment on above: Performed By: #### CBC #### [facility] [address] [place] [address] Dr. Zan EscalanteRBC4.43 106/ulCritically low4.70-6.10The [facility] HospitalComment on above:Performed By: #### CBC #### [facility] [address] [place] [address] Dr. Zan EscalanteWBC8.9 103/ulNormal4.0-11.0The [facility] HospitalComment on above: Performed By: #### CBC #### [facility] [address] [place] [address] Dr. Zan EscalanteCovid-19 PCR (CVDTBH)on 20-98-8383CWHN-CoV-2 (COVID-19) RNA KRISTEL+probe Ql (Unsp spec)Not detectedNormalNOT DETECTEDThe [facility] Comment on above:Result Comment: This test is not yet approved or cleared by the [place] FDA. When there are no FDA-approved or cleared tests available, and other criteria are met, FDA can make tests available under an emergency access mechanism called an Emergency Use Authorization (EUA). The EUA for this test is supported by the [place] of Health and Human Service's (HHS's) declaration [...] consistent with SARS-CoV-2.Performed By: #### LBCLH #### [facility] [address] [place] [address] Dr. Zan EscalanteGLYCOHEMOGLOBIN A1Con 43-28-3293AYW RECOMMENDATIONSEE BELOWNormSelect Medical [facility] ShawComkresge eye institute on above:Result Comment: ADA RECOMMENDED LIMIT 4.0 - 6.0 ADA THERAPEUTIC TARGET < 7.0 ACTION SUGGESTED > 7.0Performed By: #### A1C #### [facility] [address] [place] [address] Dr. Zan EscalanteGlucose [Mass/Vol]143 mg/dLNoVan Wert County HospitalComkresge eye institute on above:Performed By: #### A1C #### [facility] [address] [place] [address] Dr. Zan EscalanteHbA1c (Bld) [Mass fraction]6.6 %Critically high4.5-6.2[facility] - CincinnatiComment on above:Performed By: #### A1C #### [facility] [address] [place] [address] Dr. Zan EscalanteLIPID PROFILEon 21-19-6217NSTW-HDL RATIO NORMSEE BELOWSumma Health Barberton CampusComkresge eye institute on above:Result Comment: 3.3 - 4.4 LOW RISK 4.4 - 7.1 AVERAGE RISK 7.1 - 11.0 MODERATE RISK >11.0 HIGH RISKPerformed By: #### BMP, LIPID #### [facility] [address] [place] [address] Dr. Zan EscalanteCholesterol [Mass/Vol]105 mg/dLNormal<=200[facility] Comment on above:Performed By: #### BMP, LIPID #### [facility] [address] [address] [address] Zan EscalanteCholesterol in HDL [Mass/Vol]39 mg/dLCritically smu65-20QfgSelect Medical Specialty Hospital - CincinnatiComment on above:Performed By: #### BMP, LIPID #### [facility] [address] [address] [address] Zan EscalanteCholesterol in LDL [Mass/Vol]45.0 mg/dLNoVan Wert County HospitalComment on above:Performed By: #### BMP, LIPID #### [facility] [address] [place] [address] Dr. Zan Johnston.total/Cholesterol in HDL [Mass ratio]2.7 {ratio} NormalThe [facility] HospitalComment on above:Performed By: #### BMP, LIPID #### [facility] [address] [place] [address] Dr. Zan Dave NORMAL> or = 60 mg/dl - LOW CARDIOVASCULAR RISK <40 mg/dl - HIGH CARDIOVASCULAR RISKSumma Health Barberton CampusComment on above:Performed By: #### BMP, LIPID #### [facility] [address] [place] [address] Dr. Zan Poe CALC NORMALSEE BELOWSumma Health Barberton CampusComment on above:Result Comment: <100 mg/dl OPTIMAL 100 - 129 mg/dl NEAR OR ABOVE OPTIMAL 130 - 159 mg/dl BORDERLINE HIGH 160 - 189 mg/dl HIGH >190 mg/dl VERY HIGH Performed By: #### BMP, LIPID #### [facility] [address] [place] [address] Dr. Zan EscalanteTriglyceride [Mass/Vol]105 mg/dLNormal<=150[facility] Comment on above:Performed By: #### BMP, LIPID #### [facility] [address] [place] [address] Dr. Zan WhittenLDL CALC21.0 mg/dLNormalThe [facility] HospitalComment on above: Performed By: #### BMP, LIPID #### [facility] [address] [place] [address] Dr. Zan EscalantePROF CHEM 8 (BAS METB)on 38-77-9468Ppyjw gap [Moles/Vol]12.1 mmol/LNormalThe [facility] HospitalComment on above:Performed By: #### BMP, LIPID #### [facility] [address] [place] [address] Dr. Zan EscalanteCalcium [Mass/Vol]9.0 mg/dLNormal8.5-10.1[facility] Comment on above:Performed By: #### BMP, LIPID #### [facility] [address] [place] [address] Dr. Zan EscalanteChloride [Moles/Vol]106 mmol/KCaljbu39-549Ktc [facility] Comment on above:Performed By: #### BMP, LIPID #### [facility] [address] [place] [address] Dr. Zan EscalanteCO2 [Moles/Vol]28.4 mmol/SHodoxx30.0-32.0[facility] Comment on above:Performed By: #### BMP, LIPID #### [facility] [address] [place] [address] Dr. Zan EscalanteCreatinine [Mass/Vol]1.39 mg/dLCritically high0.70-1.30The [facility] HospitalComment on above:Performed By: #### BMP, LIPID #### [facility] [address] [place] [address] Dr. Zan ValerioGFR-AF SWEDISH>60Normal>=60The [facility] HospitalComment on above:Performed By: #### BMP, LIPID #### [facility] [address] [place] [address] Dr. Zan ValerioGFR-NON AF MIFHYVFX11 mL/min/1.26w1Vhadrhwork low>=60The [facility] HospitalComment on above:Performed By: #### BMP, LIPID #### [facility] [address] [place] [address] Dr. Yilan ChangGlucose [Mass/Vol]96 mg/mJBalbyc36-203Lpu [facility] Comment on above:Performed By: #### BMP, LIPID #### [facility] [address] [address] [address] Zan EscalantePotassium [Moles/Vol]4.5 mmol/LNormal3.5-5.1[facility] Comment on above:Performed By: #### BMP, LIPID #### [facility] [address] [address] [address] Zan EscalanteSodium [Moles/Vol]142 mmol/HEbouvq399-219Txe [facility] Comment on above:Performed By: #### BMP, LIPID #### [facility] [address] [address] [address] Zan EscalanteUrea nitrogen [Mass/Vol]23.0 mg/dLCritically high7.0-18.0[facility] CincinnatiComment on above:Performed By: #### BMP, LIPID #### [facility] [address] [address] [address] Zan Vasquez nitrogen/Creatinine [Mass ratio]16.5 mg/mgNoVan Wert County HospitalComment on above:Performed By: #### BMP, LIPID #### [facility] [address] [place] [address] Dr. Zuluaga ChangESTRADIOLon 41-17-4035LASTMPGFU67.7 pg/zMPgt51-35Yyn Barnesville HospitalILNormOhioHealth Nelsonville Health CenterComment on above:Result Comment: Test Performed by [email or web address] [address] [place] [address] - Released 04/17/2022 14:29Result Comment: Test Performed by [facility] [address] [place] [address] - Released 04/17/2022 14:30TESTOSTERONE, TOTAL ILon 04-17-2022 Testosterone [Mass/Vol]108 ng/qNMrx206-4814Kxr [facility] HospitalCT UROGRAMon 50-19-6125JB UROGRAMUnCleveland Clinic Euclid Hospital Department of Radiology [address] [place] [id number] Patient Name: TRAE PINEDA : 1950 Sex: M Age: Race: White Pt. Location: [facility] Patient Status: D Ordered Date: 02/22/2022 [...] achievable Electronically signed: Aquilino Johnson. Transcribed by: [email or web address], User Resident: Electronically Signed by: AQUILINO JOHNSON @ 03/15/2022 01:05 PMNormalMercy Health [facility] Hospital Vital Signs Date TimeVital SignValuePerforming EkwwmsxboGjaxtmqh83-14-3713 13:33-0400Body .88 cmBenjamin Ball DO Work Phone: [facility]10-21-2025 13:33-0400 Body mass index (BMI) [Ratio]31.5 kg/a4Qwccmmin Ball DO Work Phone: [facility]10-21-2025 13:33-0400 Body hxoahw916.46 kgBenjamin Ball DO Work Phone: [phone]-[facility]10-21-2025 13:33-0400 Diastolic blood lkobpbhf28 mm[Hg]Cristobal Ball DO Work Phone: [facility]10-21-2025 13:33-0400 Heart rate62 /minBenjamin Ball DO Work Phone: [phone] [place], [place] [address]10-21-2025 13:33-0400 Respiratory rate12 /minBenjamin Ball DO Work Phone: [phone] [place], [place] [address]10-21-2025 13:33-0400 Systolic blood mm[Hg]Cristobal Ball DO Work Phone: [phone] [place], [place] 4430407-21-2025 13:42-0400 Body vjwadm398.88 cmBenjamin Ball DO Work Phone: [phone] [place], [place] 4246307-21-2025 13:42-0400 Body mass index (BMI) [Ratio]32.5 kg/d0Vbprzjde Ball DO Work Phone: [phone] [place], [place] 4246307-21-2025 13:42-0400 Body pwfoxh790.97 kgBenjamin Ball DO Work Phone: [phone] [place], [place] 4246307-21-2025 13:42-0400 Diastolic blood jmqvifvm40 mm[Hg]Cristobal Ball DO Work Phone: [phone]07-21-2025 13:42-0400 Heart rate57 /minBenjamin Ball DO Work Phone: [phone] [place], [place] 4246307-21-2025 13:42-0400 Respiratory rate12 /minBenjamin Ball DO Work Phone: [phone] [place], [place] 4246307-21-2025 13:42-0400 Systolic blood dypgoeeb736 mm[Hg]Cristobal Ball DO Work Phone: [phone]05-20-2025 12:55-0400 Diastolic blood mm[Hg]John Cannon [facility]05-20-2025 12:55-0400Heart rate59 /minBrabill Cannon [facility]05-20-2025 12:55-0400Mean blood igysjzqo31 mm[Hg]John Cannon [facility]05-20-2025 12:55-0400 Respiratory rate14 /minBradfbernardo Davis [facility]05-20-2025 12:55-0400 Systolic blood mcvqcxud291 mm[Hg]John Cannon [facility]04-29-2025 10:00-0400Heart rate61 /minBradfbernardo Cannon [facility]04-29-2025 10:00-4076IpT5% (BldA) [Mass fraction]99 %John Cannon [facility]04-29-2025 10:00-0400 Diastolic blood mm[Hg]John Cannon [facility]04-29-2025 10:00-0400Mean blood dwmgdecv253 mm[Hg]John Cannon [facility]04-29-2025 10:00-0400 Systolic blood udkabdac355 mm[Hg]John Cannon [facility]04-29-2025 09:42-0400 Diastolic blood mm[Hg]John Cannon [facility]04-29-2025 09:42-0400Heart rate53 /minBradford Davis [facility]04-29-2025 09:42-0132BnJ9% (BldA) [Mass fraction]94 %John Cannon [facility]04-29-2025 09:42-0400 Systolic blood mm[Hg]John Cannon [facility]04-29-2025 08:23-0400Heart rate58 /minBradfbernardo Cannon [facility]04-29-2025 08:23-3750FhR7% (BldA) [Mass fraction]97 %John Cannon [facility]04-29-2025 08:23-0400 Diastolic blood tzjldxro24 mm[Hg]Lopez Cannon [facility]04-29-2025 08:23-0400Mean blood mm[Hg]John Cannon [facility]04-29-2025 08:23-0400 Systolic blood wochdsch918 mm[Hg]John Cannon [facility]04-29-2025 08:23-0400gluc 166 mg/dLBradyvonne Cannon [facility] CenterComment on above:Result Comment: per patients' Singh Freestyle on left ubv69-54-9172 08:22-0400Body zlsuvtboqdk84.06 [degF]John Cannon [facility]04-29-2025 08:20-0400 Respiratory rate16 /minBrabill Cannon [facility]04-11-2025 13:49-0400 Diastolic blood rjshnxto20 mm[Hg]Margareth De La Cruz [facility]04-11-2025 13:49-0400Heart rate54 /minAmanda Jono [facility]04-11-2025 13:49-0400Mean blood vdbjefak86 mm[Hg]Margareth De La Cruz [facility]04-11-2025 13:49-0400 Respiratory rate16 /minAmanda De La Cruz [facility]04-11-2025 13:49-0400 Systolic blood cmkyeldn542 mm[Hg]Margareth De La Cruz [facility]04-09-2025 13:25-0400Body xphafr605.9 cmJoseph Nunez MD Work Phone: [facility] SystemUurknmsjvm93-02-4302 13:25-0400Body mass index (BMI) [Ratio]32.69 kg/a4FmqslpJoseph Nunez MD Work Phone: [facility] SystemThrburlusr93-67-0898 13:25-0400Body hxlatl054.32 kgJoseph Nunez MD Work Phone: [phone])[facility]2076[facility] SystemAebodwkzri19-41-2238 13:25-0400Diastolic blood kqrauxff03 mm[Hg]Joseph Nunez MD Work Phone: 1(735)[facility]5755[facility] SystemDeezsvndhj22-41-2019 13:25-0400Heart rate62 /min Joseph Nunez MD Work Phone: [facility] SystemXsbtczpljj34-54-0123 13:25-0400Systolic blood wfegddry615 mm[Hg]Joseph Nunez MD Work Phone: [phone] SystemDhpusojyva85-18-4085 09:45-0400Heart rate62 /min John Cannon [facility]04-07-2025 09:45-0707WaT4% (BldA) [Mass fraction]98 %John Cannon [facility]04-07-2025 09:45-0400 Diastolic blood tikpfqob02 mm[Hg]John Cannon [facility]04-07-2025 09:45-0400Mean blood mm[Hg]John Cannon [facility]04-07-2025 09:45-0400 Systolic blood mm[Hg]John Cannon [facility]04-07-2025 09:45-0400 Respiratory rate16 /minJohn Cannon [facility]04-07-2025 09:38-0400 Diastolic blood ltfkafax70 mm[Hg]John Cannon [facility]04-07-2025 09:38-0400Heart rate67 /minJohn Cannon [facility]04-07-2025 09:38-0400 Respiratory rate14 /minJohn Cannon [facility]04-07-2025 09:38-8821IjG5% (BldA) [Mass fraction]97 %John Cannon [facility]04-07-2025 09:38-0400 Systolic blood mm[Hg]John Cannon [facility]04-07-2025 09:09-0400Heart rate61 /minJohn Cannon [address] [place], [place] 0465504-07-2025 09:09-7722SmG5% (BldA) [Mass fraction]96 %John Cannon [address] [place], [place] 0465504-07-2025 09:09-0400 Diastolic blood mm[Hg]John Cannon [address] [place], [place] 0465504-07-2025 09:09-0400Mean blood pysogbys571 mm[Hg]John Cannon [facility]04-07-2025 09:09-0400 Systolic blood mm[Hg]John Cannon [facility]04-07-2025 09:09-0400Body fxhfkrwyjjg75.52 [degF]John Cannon [facility]04-07-2025 09:09-0400gluc 152 mg/dLBgm Cannon [address] [place], [place] [address]Comment on above:Result Comment: per patients monitor. Singh Suazo 09:07-0400Respiratory rate14 /minJohn Cannon [address] [place], [place] 0465503-26-2025 13:32-0400Body cqnwox553.88 [facility]Fire[facility] Bjvncm12-13-1085 13:32-0400Body mass index (BMI) [Ratio]33.3 kg/b0ZtyjhqnikJ.W. [facility]03-26-2025 13:32-0400Body gwfonx409.64 kgJ.W. [facility]03-26-2025 13:32-0400Diastolic blood twrjxiog95 mm[Hg][facility] 02-10-2025 13:32-0400Heart rate60 /[facility] 02-10-2025 13:32-0400Respiratory rate12 /[facility] 02-10-2025 13:32-0400Systolic blood qybnjjqv750 mm[Hg][facility]03-20-2025 11:32-0400Diastolic blood kztmalaw67 mm[Hg]John Cannon [facility]03-20-2025 11:32-0400Heart rate55 /minJohn Cannon [address] [place], [place] 0465503-20-2025 11:32-0400Mean blood wgbfjmob43 mm[Hg]John Cannon [facility]03-20-2025 11:32-0400 Respiratory rate14 /minBrabill Cannon [address] [place], [place] 0465503-20-2025 11:32-0400 Systolic blood mm[Hg]John Cannon [facility]03-17-2025 14:27-0400Heart rate54 /minBrabill Cannon [facility]03-17-2025 14:27-3375OtM2% (BldA) [Mass fraction]97 %John Cannon [facility]03-17-2025 14:26-0400 Diastolic blood hiwaikkz77 mm[Hg]John Cannon [facility]03-17-2025 14:26-0400Mean blood lmeemyaz669 mm[Hg]John Davis [facility]03-17-2025 14:26-0400 Systolic blood eviolcrl149 mm[Hg]John Cannon [facility]03-17-2025 14:26-0400 Respiratory rate16 /minBrabill Davis [facility]03-17-2025 14:18-0400 Diastolic blood kdsdubcj93 mm[Hg]Lopez Davis [facility]03-17-2025 14:18-0400Heart rate61 /minBrabill Davis [facility]03-17-2025 14:18-5673UuB4% (BldA) [Mass fraction]95 %John Davis [facility]03-17-2025 14:18-0400 Systolic blood yssitfmo936 mm[Hg]Lopez Davis [facility]03-17-2025 14:05-0400Heart rate61 /minBrabill Davis [facility]03-17-2025 14:05-3894XyZ2% (BldA) [Mass fraction]97 %John Davis [facility]03-17-2025 14:05-0400Body didylbqzrto61.52 [degF]John Davis [facility]03-17-2025 14:05-0400gluc 132 mg/dLBradyvonne Davis [facility] CenterComment on above:Result Comment: Freestyle Singh 2 Glucose Zndpq42-28-8199 14:01-0400Diastolic blood bfferori21 mm[Hg]John Cannon [facility]03-17-2025 14:01-0400Mean blood mlyrkqxe800 mm[Hg]John Cannon [facility]03-17-2025 14:01-0400 Systolic blood dyoxruam766 mm[Hg]John Cannon [facility]03-17-2025 13:58-0400 Respiratory rate14 /minBrabill Davis [facility]03-05-2025 13:05-0500Body iehjmh474.9 cmJoseph Nunez MD Work Phone: [facility] SystemDkyvhgizau28-86-3563 13:05-0500Body mass index (BMI) [Ratio]32.69 kg/c3WgquloJoseph Nunez MD Work Phone: [facility] SystemGwinzjgkhc24-48-6493 13:05-0500Body piapie473.32 kgJoseph Nunez MD Work Phone: [facility] SystemSsjrybyovl39-15-4740 13:05-0500Diastolic blood mm[Hg]Joseph Nunez MD Work Phone: [facility] SystemWwyoziwqjt60-50-9730 13:05-0500Heart rate67 /min Joseph Nunez MD Work Phone: [facility] SystemElxksgjucz78-06-8786 13:05-0500Systolic blood tsqrmoxj462 mm[Hg]Joseph Nunez MD Work Phone: [facility] SystemEcxaauwugd40-25-9436 10:31-0500Diastolic blood akhgkbrj64 mm[Hg]Margareth De La Cruz [facility]02-25-2025 10:31-0500Heart rate58 /minAmanda De La Cruz [facility]02-25-2025 10:31-0500Mean blood jykpzfgl27 mm[Hg]Margareth De La Cruz [facility]02-25-2025 10:31-0500 Respiratory rate14 /minAmanda De La Cruz [address] [place], [place] 0465502-25-2025 10:31-0500 Systolic blood utadedzm659 mm[Hg]Margareth De La Cruz [facility]01-28-2025 10:15-0500 Diastolic blood mm[Hg]Margareth De La Cruz [facility]01-28-2025 10:15-0500Heart rate67 /minAmanda De La Cruz [address] [place], [place] 0465501-28-2025 10:15-0500Mean blood hzbkylgf04 mm[Hg]Margareth De La Cruz [address] [place], [place] 0465501-28-2025 10:15-0500 Respiratory rate14 /minAmanda De La Cruz [address] [place], [place] 0465501-28-2025 10:15-0500 Systolic blood dctqyfkx324 mm[Hg]Margareth De La Cruz [address] [place], [place] 0465501-20-2025 09:02-0500Heart rate69 /minBradfbernardo Davis [address] [place], [place] 0465501-20-2025 09:02-7302LiN8% (BldA) [Mass fraction]99 %John Cannon [address] [place], [place] 0465501-20-2025 09:02-0500 Diastolic blood mm[Hg]John Cannon [address] [place], [place] 0465501-20-2025 09:02-0500Mean blood ylcniyzd23 mm[Hg]John Cannon [facility]01-20-2025 09:02-0500 Systolic blood nipvjgho503 mm[Hg]John Cannon [address] [place], [place] 0465501-20-2025 09:02-0500 Respiratory rate16 /minBrabill Cannon [address] [place], [place] 0465501-20-2025 08:54-0500Heart rate67 /minBrabill Cannon [facility]01-20-2025 08:54-0825XfZ7% (BldA) [Mass fraction]99 %Lopez Davis [facility]01-20-2025 08:54-0500 Respiratory rate16 /minJohn Cannon [address] [place], [place] 0465501-20-2025 08:54-0500Body ljrmejwpdmf96.88 [degF]John Cannon [address] [place], [place] 0465501-20-2025 08:54-0500 Diastolic blood fkoemmxa91 mm[Hg]John Cannon [address] [place], [place] 0465501-20-2025 08:54-0500Mean blood wqosoatq95 mm[Hg]John Davis [address]01-20-2025 08:54-0500 Systolic blood ruymqjfz161 mm[Hg]John Davis [address] [place], [place] 7008501-20-2025 08:48-0500 Diastolic blood etsxvmpn33 mm[Hg]John Cannon [address] [place], [place] 0465501-20-2025 08:48-0500 Systolic blood abirnhtg302 mm[Hg]John Davis [address]01-20-2025 08:45-0500Heart rate64 /minJohn Cannon [address] [place], [place] 0465501-20-2025 08:45-0966BbK3% (BldA) [Mass fraction]99 %John Cannon [address] [place], [place] 0465501-20-2025 08:40-0500 Respiratory rate15 /minJohn Cannon [address]01-20-2025 07:34-0500gluc 140 mg/dLBradyvonne Cannon [address] [place], [place] [address]Comment on above:Result Comment: per pt's meter on left [id number] 07:32-0500Body khgjqrutwsc50.7 [degF]John Cannon [facility]01-20-2025 07:32-0500Mean blood mm[Hg]John Cannon [facility]12-26-2024 10:23-0500Body aqgban519.88 cmJ.[facility]. [facility]12-26-2024 10:23-0500Body mass index (BMI) [Ratio]32.7 kg/e2ShbnrdmukJ.W. [facility]12-26-2024 10:23-0500Body coeboq904.54 kgJ.W. [facility]12-26-2024 10:23-0500Diastolic blood mm[Hg][facility] 11-12-2024 10:23-0500Heart rate65 /[facility] 11-12-2024 10:23-0500Respiratory rate12 /[facility] 11-12-2024 10:23-0500Systolic blood lvpuliti976 mm[Hg][facility]12-12-2024 09:08-0500Diastolic blood yhfoyzut50 mm[Hg]John Cannon [facility]12-12-2024 09:08-0500Heart rate76 /minBrabill Cannon [facility]12-12-2024 09:08-0500 Respiratory rate14 /minBrabill Cannon [facility]12-12-2024 09:08-0500 Systolic blood mm[Hg]John Cannon [facility]11-26-2024 13:51-0500 Diastolic blood xpadxagw79 mm[Hg]Margareth De La Cruz [facility]11-26-2024 13:51-0500Mean blood jovjnhsi75 mm[Hg]Margareth De La Cruz [facility]11-26-2024 13:51-0500 Systolic blood izkzxjxv982 mm[Hg]Margareth De La Cruz [address] [place], [place] 0465510-22-2024 11:49-0400Heart rate60 /minBrabill Davis [address] [place], [place] 0465510-22-2024 11:49-9182JqD1% (BldA) [Mass fraction]99 %John Cannon [address] [place], [place] 0465510-22-2024 11:48-0400 Diastolic blood rpqykwfm04 mm[Hg]John Cannon [address] [place], [place] 0465510-22-2024 11:48-0400Mean blood ubyzonaj27 mm[Hg]John Cannon [address] [place], [place] 0465510-22-2024 11:48-0400 Systolic blood ponjlllv988 mm[Hg]John Cannon [address] [place], [place] 0465510-22-2024 11:48-0400 Respiratory rate16 /minBradfbernardo Cannon [address] [place], [place] 0465510-22-2024 11:38-0400 Diastolic blood fmqjbbou87 mm[Hg]John Cannon [address] [place], [place] 0465510-22-2024 11:38-0400Heart rate58 /minBrabill Cannon [address] [place], [place] 0465510-22-2024 11:38-0400 Respiratory rate14 /minBrabill Cannon [address] [place], [place] 0465510-22-2024 11:38-5909LjB1% (BldA) [Mass fraction]96 %John Cannon [address] [place], [place] 0465510-22-2024 11:38-0400 Systolic blood xtoyfmqr641 mm[Hg]John Cannon [address] [place], [place] 0465510-22-2024 11:01-0400gluc 134 mg/dLBradyvonne Cannon [facility] CenterComment on above:Result Comment: per pt's elyyj71-60-8152 10:58-0400Heart rate61 /minBrabill Cannon [facility]10-22-2024 10:58-0446PqL1% (BldA) [Mass fraction]99 %John Cannon [address] [place], [place] 0465510-22-2024 10:57-0400 Diastolic blood nmyyphtv71 mm[Hg]John Cannon [facility]10-22-2024 10:57-0400Mean blood mm[Hg]John Cannon [facility]10-22-2024 10:57-0400 Systolic blood mm[Hg]John Cannon [address] [place], [place] 0465510-22-2024 10:57-0400 Respiratory rate18 /minBrabill Cannon [address] [place], [place] 0465510-22-2024 10:54-0400Body rczckalskom66.7 [degF]John Cannon [facility]09-16-2024 14:37-0400 Diastolic blood evphhtpj72 mm[Hg]Margareth De La Cruz [facility]09-16-2024 14:37-0400Heart rate62 /minAmanda EnzySurge [facility]09-16-2024 14:37-0400Mean blood mm[Hg]Margareth De La Cruz [facility]09-16-2024 14:37-0400 Respiratory rate16 /minAmanda EnzySurge [facility]09-16-2024 14:37-0400 Systolic blood mm[Hg]Margareth De La Cruz [facility]07-01-2024 13:07-0400 Diastolic blood axtzxfbg99 mm[Hg]Margareth De La Cruz [facility]07-01-2024 13:07-0400Heart rate59 /minAmanda EnzySurge [facility]07-01-2024 13:07-0400Mean blood vveogeam79 mm[Hg]Margareth De La Cruz [address] [place], [place] 0465507-01-2024 13:07-0400 Respiratory rate16 /minAmanda EnzySurge [facility]07-01-2024 13:07-0400 Systolic blood uvyrqswt945 mm[Hg]Margareth De La Cruz [address] [place], [place] 0465505-10-2024 14:19-0400 Diastolic blood cuacwacr94 mm[Hg]Margareth De La Cruz [address] [place], [place] 0465505-10-2024 14:19-0400Heart rate69 /minAmanda De La Rcuz [facility]05-10-2024 14:19-0400Mean blood mm[Hg]Margareth De La Cruz [facility]05-10-2024 14:19-0400 Respiratory rate15 /minAmanda De La Cruz [facility]05-10-2024 14:19-0400 Systolic blood bjumphlj213 mm[Hg]Margareth EnzySurge [address] [place], [place] 0465503-29-2024 13:32-0400 Diastolic blood mm[Hg]Margareth De La Cruz [address] [place], [place] 0465503-29-2024 13:32-0400Heart rate66 /minAmanda De La Cruz [facility]03-29-2024 13:32-0400Mean blood jamtxqcz79 mm[Hg]Margareth De La Cruz [facility]03-29-2024 13:32-0400 Respiratory rate14 /minAmanshai De La Cruz [facility]03-29-2024 13:32-0400 Systolic blood ipjtybzu004 mm[Hg]Margareth De La Cruz [facility]02-28-2024 14:27-0500Heart rate63 /minBradford Davis [facility]02-28-2024 14:27-5583DbT2% (BldA) [Mass fraction]100 %John Cannon [facility]02-28-2024 14:27-0500 Respiratory rate16 /minBradford Davis [facility]02-28-2024 14:26-0500 Diastolic blood dmjwzvga01 mm[Hg]John Cannon [facility]02-28-2024 14:26-0500Mean blood uezhohzq266 mm[Hg]John Cannon [facility]02-28-2024 14:26-0500 Systolic blood kvcgdvwi685 mm[Hg]John Cannon [facility]02-28-2024 14:17-0500 Diastolic blood qbwepxan61 mm[Hg]John Cannon [facility]02-28-2024 14:17-0500Heart rate66 /minBradfbernardo Cannon [facility]02-28-2024 14:17-0500 Respiratory rate14 /minBradford Davis [facility]02-28-2024 14:17-6915ZwN3% (BldA) [Mass fraction]96 %John Cannon [facility]02-28-2024 14:17-0500 Systolic blood ibxiiyaq840 mm[Hg]Lopez Cannon [facility]02-28-2024 13:42-0500gluc 128 mg/dLBgm Cannon [facility] CenterComment on above:Result Comment: per pt's meter on right auq17-32-1361 13:30-0500Heart rate60 /min John Cannon [address] [place], [place] 0465502-28-2024 13:30-7969HdH0% (BldA) [Mass fraction]99 %John Cannon [facility]02-28-2024 13:30-0500Body .34 [degF]John Cannon [facility]02-28-2024 13:30-0500 Diastolic blood rholbuel32 mm[Hg]John Cannon [facility]02-28-2024 13:30-0500Mean blood hvevgxmz567 mm[Hg]John Cannon [facility]02-28-2024 13:30-0500 Systolic blood frfamiim755 mm[Hg]John Cannon [facility]02-28-2024 13:29-0500 Respiratory rate14 /minBrabill Cannon [facility]01-29-2024 10:23-0500 Diastolic blood nldiwvzm22 mm[Hg]Margareth De La Cruz [facility]01-29-2024 10:23-0500Heart rate70 /minMargareth De La Cruz [facility]01-29-2024 10:23-0500Mean blood ittstlpx02 mm[Hg]Margareth De La Cruz [facility]01-29-2024 10:23-0500 Respiratory rate14 /minAmanda EnzySurge [facility]01-29-2024 10:23-0500 Systolic blood ogwiqqfk072 mm[Hg]Margareth De La Cruz [facility]12-26-2023 10:00-0500Body qagcpa156.88 cmBenjamin Ball Other [facility] [employer] Other [id number] 10:00-0500Body mass index (BMI) [Ratio] 32.46 kg/q2Mxolengp Ball Other [facility] [employer] Other 12-26-2023 10:00-0500Body dhxyue515.59 kgBenjamin Ball Other [facility] [employer] Other 12-26-2023 10:00-0500Diastolic blood pwgvxxju10 mm[Hg] Cristobal Ball Other [employer] [employer] Other 12-26-2023 10:00-0500Respiratory rate16 /minBenjamin Ball Other [facility] [employer] Other 12-26-2023 10:00-0500Systolic blood kezomalb559 mm[Hg] Cristobal Ball Other [employer] Other 12-22-2023 10:58-0500Diastolic blood yxswfnfk58 mm[Hg] Margareth De La Cruz [facility]12-22-2023 10:58-0500Heart rate63 /minAmanda EnzySurge [facility]12-22-2023 10:58-0500Mean blood hzgqyshk16 mm[Hg]Margareth De La Cruz [facility]12-22-2023 10:58-0500 Respiratory rate15 /minAmanda EnzySurge [address] [place], [place] 0465512-22-2023 10:58-0500 Systolic blood jepabala953 mm[Hg]Margareth De La Cruz [address] [place], [place] 0465510-20-2023 11:09-0400 Diastolic blood emuokejz19 mm[Hg]Margareth De La Cruz [address] [place], [place] 0465510-20-2023 11:09-0400Heart rate59 /minAmanda De La Cruz [address] [place], [place] 0465510-20-2023 11:09-0400Mean blood pyitebwm359 mm[Hg]Margareth De La Cruz [address] [place], [place] 0465510-20-2023 11:09-0400 Respiratory rate16 /minAmanda EnzySurge [address] [place], [place] 0465510-20-2023 11:09-0400 Systolic blood drktordg773 mm[Hg]Margareth De La Cruz [address] [place], [place] 0465509-19-2023 14:22-0400Heart rate59 /minHimanshu Wright [address] [place], [place] 0465509-19-2023 14:22-7227BqD5% (BldA) [Mass fraction]99 %Himanshu Wright [address] [place], [place] 0465509-19-2023 14:22-0400 Diastolic blood mm[Hg]Himanshu Wright [address] [place], [place] 0465509-19-2023 14:22-0400Mean blood bvffytdq018 mm[Hg]Himanshu Wright [facility]09-19-2023 14:22-0400 Systolic blood eaxjjquq542 mm[Hg]Himanshu Wright [address] [place], [place] 0465509-19-2023 14:15-0400 Diastolic blood fcakdyad77 mm[Hg]Himanshu Wright [facility]09-19-2023 14:15-0400Heart rate58 /Fabiola Wright [facility]09-19-2023 14:15-5135DqD0% (BldA) [Mass fraction]97 %Himanshu Wright [facility]09-19-2023 14:15-0400 Systolic blood icoxexmb696 mm[Hg]Himanshu Wright [facility]09-19-2023 13:52-0400 Respiratory rate14 /minHimanshu Wright [facility]09-19-2023 13:00-0400Body debftfbfowb30.06 [degF]Himanshu Wright [facility]09-19-2023 13:00-0400 Diastolic blood mm[Hg]Himanshu Wright [facility]09-19-2023 13:00-0400Heart rate67 /Fabiola Wright [facility]09-19-2023 13:00-0400 Systolic blood mm[Hg]Himanshu Wright [facility]08-15-2023 14:17-0400 Diastolic blood ylibppjl12 mm[Hg]Margareth De La Cruz [facility]08-15-2023 14:17-0400Heart rate61 /minHermesda EnzySurge [facility]08-15-2023 14:17-0400Mean blood ujccxiwn90 mm[Hg]Margareth De La Cruz [facility]08-15-2023 14:17-0400 Respiratory rate14 /minAmanda EnzySurge [facility]08-15-2023 14:17-0400 Systolic blood bzttzzra702 mm[Hg]Margareth De La Cruz [facility]02-24-2023 13:43-0500 Diastolic blood mm[Hg]Margareth De La Cruz [facility]02-24-2023 13:43-0500Heart rate76 /minAmanda De La Cruz [facility]02-24-2023 13:43-0500Mean blood aejtclly484 mm[Hg]Margareth De La Cruz [facility]02-24-2023 13:43-0500 Respiratory rate18 /minAmanda De La Cruz [facility]02-24-2023 13:43-0500 Systolic blood okglxgga462 mm[Hg]Margareth De La Cruz [facility]02-21-2023 13:30-0500Body sptokf422.88 cmBenjamin Ball Other [facility] Other 02-21-2023 13:30-0500Body mass index (BMI) [Ratio] 32.11 kg/l3Aqmcrfxh Ball Other [facility] Other 02-21-2023 13:30-0500Body bixjph027.41 kgBenjamin Ball Other [facility] Other 02-21-2023 13:30-0500Diastolic blood lzlohdyk71 mm[Hg] Cristobal Ball Other [facility] Other 02-21-2023 13:30-0500Respiratory rate16 /minBenjamin Ball Other [facility] Other 02-21-2023 13:30-0500Systolic blood uqnrfkvq816 mm[Hg] Cristobal Ball Other [facility] Other 01-25-2023 11:00-0500Heart rate73 /minZachary Zumbar [facility]01-25-2023 11:00-8156LrD2% (BldA) [Mass fraction]98 %Tutu Zumbar [address] [place], [place] 0465501-25-2023 11:00-0500 Diastolic blood cuqgxyxb47 mm[Hg]Tutu Zumbar [address] [place], [place] 0465501-25-2023 11:00-0500Mean blood kjhybwcb756 mm[Hg]Tutu Zumbar [address] [place], [place] 0465501-25-2023 11:00-0500 Systolic blood hfgrolrm388 mm[Hg]Tutu Zumbar [address] [place], [place] 0465501-25-2023 10:51-0500 Diastolic blood bgktocan06 mm[Hg]Tutu Zumbar [address] [place], [place] 0465501-25-2023 10:51-0500Heart rate71 /minZachary Zumbar [facility]01-25-2023 10:51-0500 Respiratory rate16 /minZachary Zumbar [address] [place], [place] 0465501-25-2023 10:51-0101LwL1% (BldA) [Mass fraction]96 %Tutu Zumbar [address] [place], [place] 0465501-25-2023 10:51-0500 Systolic blood frkhzxez020 mm[Hg]Tutu Zumbar [address] [place], [place] 0465501-25-2023 10:13-0500Heart rate75 /minZachary Zumbar [address] [place], [place] 5155601-25-2023 10:13-0291PpN2% (BldA) [Mass fraction]97 %Tutu Zumbar [address] [place], [place] 5155601-25-2023 10:13-0500Body rustwmcvusu46.88 [degF]Tutu Zumbar [address] [place], [place] 5155601-25-2023 10:12-0500 Diastolic blood kestdpgf11 mm[Hg]Tutu Zumbar [address] [place], [place] 5155601-25-2023 10:12-0500Mean blood dtlwnebw329 mm[Hg]Tutu Zumbar [address] [place], [place] 5155601-25-2023 10:12-0500 Systolic blood wixunzyz242 mm[Hg]Tutu Zumbar [address] [place], [place] 5155601-25-2023 10:10-0500 Respiratory rate16 /minZachary Zumbar [address] [place], [place] 5155612-22-2022 15:04-0500 Diastolic blood hghgmfdu77 mm[Hg]Tutu Zumbar [address] [place], [place] 5155612-22-2022 15:04-0500Heart rate62 /minZachary Zumbar [address] [place], [place] 5155612-22-2022 15:04-0500Mean blood eykopvch147 mm[Hg]Tutu Zumbar [address] [place], [place] 5155612-22-2022 15:04-0500 Respiratory rate14 /minZachary Zumbar [address] [place], [place] 5155612-22-2022 15:04-0500 Systolic blood rzjakwei054 mm[Hg]Tutu Zumbar [facility] Encounters Encounter DateEncounter TypeCare ProviderFacilityStart: 09-07-2025 End: 64-46-3635kdrrlkhieoJogpzfon Ball DO Work Phone: -[facility]art: 09-07-2025 End: 02-09-0319Jzfcwah encounter procedureBenjose carlos Kearns DO-[facility] Work Phone: Start: 97-97-3660Szp-patient / Non-visitCatherine Fareed SOFTWARE CONFIGURATION MANAGER-FPG [facility] Work Phone: Start: 08-28-2025 End: 67-94-1345npqqcjsnzaEANXIVCD E SOMBrecksville VA / Crille Hospitaltart: 08-10-2025 End: 61-66-0974wigveiyhqrXQDQA [facility] Columb[facility]art: 07-20-2025 End: 93-16-9446pmwpnfmxhlFWIT [facility]ertart: 06-07-2025 End: 84-38-2185vnkcdoehhuFumocwcd Ball DO Work Phone: [facility] Work Phone: Start: 06-07-2025 End: 81-15-3961Gfqsoeq encounter procedureBenjose carlos Kearns DO-[facility] Work Phone: Start: 85-75-5923Qzm-patient / Non-visitGeorge Ajay ARMANDONaval [facility] Work Phone: Start: 04-28-2025 End: 38-17-1124yauyaapgcaOAXZVK MOUKAPremier Health [facility] Start: 04-06-2025 End: 25-11-2052zdyqorhhahZsyskwon A. JonesFacility:[facility]ENTERtart: 04-06-2025 End: 26-37-3118Fdbnutk encounter procedureJohn Cannon [facility] Start: 03-25-2025 End: 68-73-0051gkxdpeoqysZEEBBN [facility] Start: 30-73-6005Prr-patient / Non-visitBegiancarlo Kearns DO-[facility] Work Phone: Start: 03-16-2025 End: 44-14-7989vrnfmjolpnQnzvhfci A. JonesFacility:FTMCStart: 03-16-2025 End: 69-42-9724Spoy ManagementJohn Cannon [facility] Start: 02-26-2025 End: 92-77-8504cdobmqbhrdCsvrqh SpringerFacility:FTMCStart: 02-26-2025 End: 79-25-4480Jbzobdp encounter procedureKessler Institute For Rehabilitationshai Carmichael [facility] Start: 02-24-2025 End: 61-72-6475Gsuoquernie Nunez MD Work Phone: noMS CI ENTStart: 02-24-2025 End: 35-67-4046Ubrnpxernie Nunez MD Work Phone: noMS CI ENTStart: 02-24-2025 End: 63-18-7734Rsiqoi outpatient visit 25 minutesHilalita Nunez MD Work Phone: noMS CI ENTComment on above: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 JonesFacility:FTMCStart: 02-22-2025 End: 10-29-0396Vcrq Genet Cannon [facility] Start: 02-17-2025 End: 28-20-5947knvxdmgtedGGDGWL [facility] Start: 02-10-2025 End: 17-50-7536mbzcpsmykpVzyxskvdyAultman Hospital Work Phone: Start: 02-10-2025 End: 55-01-5486Menljtm encounter procedureHighlands-Cashiers Hospital Physician [facility] Work Phone: Start: 02-04-2025 End: 57-54-4409vivlrykzngEcvjovws A. JonesFacility:FTMCStart: 02-04-2025 End: 01-26-1824Sgsydij encounter procedureJohn Cannon [facility] Start: 02-02-2025 End: 50-04-8962acnhlhltlcWKOSAK [facility] Start: 02-01-2025 End: 54-90-9463brkwhklwxiYdgchpdj A. 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); Sensorineural hearing loss (SNHL) of right ear with unrestricted hearing of left ear; ETD (Eustachian tube dysfunction), bilateralStart: 01-20-2025 End: 82-78-8834fxphptctziOQHWGN H DUSTYSNot AvailableStart: 01-19-2025 End: 43-13-0494Ickqak flowsYara Clark AUD Work Phone: noms NB AUDStart: 01-19-2025 End: 03-99-7201Vjqabl flowstheaDomingotheron Clark AUD Work Phone: noms NB AUDStart: 01-19-2025 End: 55-47-0115Bjulczy encounter procedureDomingotheron Clark AUD Work Phone: noms NB AUDComment on above:Mixed hearing loss, bilateral (Primary Dx); Other specified disorders of Eustachian tube, unspecified earStart: 01-19-2025 End: 19-71-8518ahzsfjrnvkDRIBOSS S WRIGHTNot AvailableStart: 91-43-7377Qhf- patient / Non-visitFirelands Physician GroupNaval Hospital [facility] Work Phone: Start: 72-71-9256Nszjlwv encounter procedureJulieth Eduardo AUD Work Phone: noms HealthcareStart: 34-50-6006Bnt-patient / Non-visitFirwinchester medical center Physician [facility] Work Phone: Start: 01-12-2025 End: 54-56-5520twqajcozpsVwvhar SpringerFacility:FTMCStart: 01-12-2025 End: 77-48-1922Cmwicfd encounter procedureAmanda De La Cruz [facility] Start: 98-28-0614Pqc-patient / Non-visitFiraustins Physician GroupNaval Hospital [facility] Work Phone: Start: 12-28-2024 End: 83-79-4431pfyteyqstmRXFOPN [facility] Start: 12-15-2024 End: 21-84-6273uxsblefxmtXbfsaa SpringerFacility:FTMCStart: 12-15-2024 End: 91-73-3619Qrsdzpg encounter procedureKessler Institute For Rehabilitationda De La Cruz [facility] Start: 12-07-2024 End: 79-38-7779wdrmzkfhurTzhaxpjz A. JonesFacility:FTMCStart: 12-07-2024 End: 50-51-8018Gdfk ManagementJohn Cannon [facility] Start: 65-21-3907Mwh-patient / Non-visitHighlands-Cashiers Hospital Physician [facility] Work Phone: Start: 37-17-7019Orh-patient / Non-visitHighlands-Cashiers Hospital Physician GroupNaval Hospital [facility] Work Phone: Start: 11-12-2024 End: 96-13-8515Tkschzz encounter procedureHighlands-Cashiers Hospital Physician GroupCleveland Clinic [facility] Work Phone: Start: 11-03-2024 End: 16-99-0131embiuadouuEKPHXNTriHealth Start: 10-29-2024 End: 02-82-4452ifjeyaatfnMxppeome A. JonesFacility:FTMCStart: 10-29-2024 End: 59-72-8622Eozfuyk encounter Bella Cannon [facility] Start: 10-13-2024 End: 35-20-3541qhiwyokwgsMkwmzs JonoFacility:FTMCStart: 10-13-2024 End: 95-38-5059Riwczkc encounter procedureAmanda De La Cruz [facility] Start: 09-08-2024 End: 91-34-8118woxrgjogegPkhnvmmz A. JonesFacility:FTMCStart: 09-08-2024 End: 97-62-7061Itlm ManagementJohn Cannon [facility] Start: 08-31-2024 End: 64-65-2929zpiymybzkzXXSRPR [facility] Start: 08-03-2024 End: 40-28-8355sucivchktwIRIZFOKA BALLFacility:FTMCStart: 08-03-2024 End: 06-93-0117Oopvodr encounter procedureAmanSt. Francis Hospital [facility] Start: 80-47-5276Vtzruah encounter [facility] Centertart: 05-18-2024 End: 92-08-8408lqdygfaxiuHQDQTZPU BALLFacility:FTMCStart: 05-18-2024 End: 53-89-0665Dkjm ManagementDenver Springs [facility] Start: 03-27-2024 End: 68-79-1144Oauv ManagementHungerford De La Cruz [facility] Start: 02-14-2024 End: 32-67-6646Qcys ManagementHungerford De La Cruz [facility] Start: 02-11-2024 End: 51-36-3768veeqxzcflyMgxbbjmu Som Other [facility] [employer] Other Start: 43-92-5612Wohwldgqx encounterBenjose carlos [facility]earns [facility] ClinicStart: 01-15-2024 End: 61-72-9429Mpuf ManagementJohn Cannon [facility] Start: 12-16-2023 End: 12-38-8044Dvsk [facility] De La Cruz [facility] Start: 11-27-2023 End: 31-99-2486ckzjvykghdZnapldgj Ball Other [employer] Other Start: 99-21-4463Xomfahkht encounterBenjamin BallFPG [facility] ClinicStart: 11-19-2023 End: 65-64-2085bwzbreponaAzddovrm Ball Other [facility] [employer] Other Start: 10-80-0826Qytuqczls encounterBenjamin BallFPG [facility] ClinicStart: 11-14-2023 End: 12-63-2913ntdqmllagbQdhegfdy Ball Other [facility] [employer] Other Start: 11-37-4338Pbcukhnsh encounterBenjamin BallFPG [facility] ClinicStart: 11-12-2023 End: 69-88-0377aankxaimjmDwhwgjzu Ball Other [facility] [employer] Other Start: 54-36-1160Vxozfh outpatient visit 25 minutes Cristobal BallFPG [facility] ClinicStart: 11-08-2023 End: 01-32-4744Nwxh [facility] De La Cruz [facility] Start: 09-06-2023 End: 97-73-3284Lgsr [facility] Start: 09-04-2023 End: 91-94-7637hqgpbgbbtoSpvardiq Ball Other [employer] Other Start: 67-29-7456Mpzsixjrg encounterBenjamin BallFPG [facility] ClinicStart: 08-21-2023 End: 36-71-3364syrinwhcgjEiwcskcg Ball Other [employer] Other Start: 43-03-3267Preprobws encounterBenjamin BallFPG [facility] ClinicStart: 08-06-2023 End: 16-35-8862Yhku Nayeli Wright [facility] Start: 07-23-2023 End: 74-47-7701xsfrgkavxyThlocrqt Ball Other [employer] Other Start: 83-32-4253Ddmctbnzv encounterBenjamin BallFPG [facility] ClinicStart: 07-02-2023 End: 02-62-8949Eprq Victoriano De La Cruz [facility] Start: 03-19-2023 End: 21-42-7497nuxydkdliiQuyxvdct Ball Other [employer] Other Start: 17-97-0808Uyghhs outpatient visit 15 minutes Cristobal BallFPG [facility] ClinicStart: 03-08-2023 End: 23-32-3529pcxmqhjpqjNtfmnjua Ball Other [employer] Other Start: 12-11-8683Gwpzpbfqg encounterBenjamin BallFPG [facility] ClinicStart: 21-37-5462Sealhllwo encounterBenjamin BallFPG [facility] ClinicStart: 03-07-2023 End: 55-55-7224kkmqekzxuhNZ CRISTOBAL SOMJunction [employer] Other Start: 02-26-2023 End: 13-71-2098effvsdtnyyQaawhaxs Ball Other [employer] Other Start: 43-99-2195Dyrsqiltw encounterBegiancarlo Kearns Medical ClinicStart: 87-44-0383Ofarxxzfd encounterBegiancarlo Kearns Medical ClinicStart: 01-18-2023 End: 72-35-7032kdunqhzhgtOI DOCTOR MISCNorth [facility] Yours Flor[employer] Other Start: 01-11-2023 End: 18-78-7442Thar ManagementAmanda De La Cruz [facility] Start: 01-08-2023 End: 67-57-3278xcalfpucjmXcwqpvhv Ball Other [facility] Y[facility] [place] Other Start: 35-87-5543Jphfff outpatient visit 25 minutes Cristobal Kearns [facility] Institutetart: 12-12-2022 End: 53-71-9747Gqgz ManagementZatate Barriosumbbill [facility] Start: 11-23-2022 End: 76-27-1092bxircgqsfoFQ CRISTOBAL Mcgillcility:P7Lboff: 11-18-2022 End: 38-47-9574yimmplthpgMS CRISTOBAL Mcgillcility:I3Qzsrw: 11-08-2022 End: 33-49-7027Zurqtzg encounter procedureZatate Guzman [facility] Start: 11-08-2022 End: 47-42-2643Zzik ManagementZachary Zumbar [facility] Start: 08-29-2022 End: 73-21-7822mnyyplbqamHF DOCTOR MISCFacility:U8Udhqw: 07-31-2022 End: 86-86-4525noteiiqocvXM MOI MOUKARBELFacility:W9Uersi: 07-02-2022 Encounter for preprocedural laboratory examinationDR CRISTOBAL Mohrevue HospitalStart: 06-29-2022 End: 51-73-1026Frieaubrp for preprocedural laboratory examinationDR CRISTOBAL KEARNSFacility:T8Clezv: 06-29-2022 End: 88-18-2833ilifhanwzpVH BENJAMIN BALLFacility:A8Kekyw: 06-14-2022 End: 33-93-0740igdrpjrndfYZ BENJAMIN BALLFacility:V3Pdfra: 03-13-2022 End: 86-33-0836ckgislqioyZSKFEUYO J LAJINESSFacility:RUST Procedures DateProcedureProcedure DetailPerforming ClinicianStart: 03-25-2025 Catheterization of left heartJohn Cannon start: 09-26-5977Zdcpbfxnfmeqaz ablation of medial branch of lumbar nerve using fluoroscopic guidanceJohn Cannon start: 40-45-5450Xbxiomppm of facet joint using fluoroscopic guidanceMargareth EnzySurge comment on above:B/L L4/5, L5/S1 MBB #2Start: 76-20-6099Qkyhpo-up visitFollow-upPUNEET SINDHWANIStart: 79-38-2353Mwjnjgwup into facet joint of lumbar spine using fluoroscopic guidanceJohn Cannon start: 78-00-7798DZYGUZAO FUNCTION TESTSJulieth LLANOS Work Phone: start: 88-80-1511Hdcqqxbxg invasive decompression of lumbar spineHermesda EnzySurge start: 49-20-9516Fkjeuoyf injection of lumbar spine using fluoroscopic guidanceMargareth EnzySurge comment on above:0% reliefStart: 78-49-4303Tyejcyjvd of nerve root of lumbar spine using fluoroscopic guidanceMargareth EnzySurge comment on above:bilat L5/S1 TFESI- 90% relief x 2 weeksStart: 09-59-8577Wvnkshjjh of nerve root of lumbar spine using fluoroscopic guidance.[employer] comment on above:L5-S1-90% reliefStart: 15-83-9371EAW screeningMICHELLE LACARRIEESSComment on above:Performed By: #### [id number] #### [facility] [address] [place] [address], USAStart: 68-87-4609Juhxsehhy of nerve root of lumbar spine using fluoroscopic guidanceZaAptidataumbIntraxio comment on above:Bilateral L5 TFESI-90-95% reliefStart: 17-04-8002Pjfrisxt steroid injectionZaProvus Labry LOYAL3 comawwd on above:bilat L5 TFESI- 100% relief x 2 weeks now down to 50%Start: 73-43-6116Zszpqngk injection of lumbar spine using fluoroscopic guidanceAA Party coronary bypass graft angiographyZaSnapcious comment on above:2005Decompression of median nerve Tutu LOYAL3 comment on above:right 2013Fracture of ankle (disorder) [employer] comment on above: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) Tutu ZumbIntraxio comment on above:disc herniation and fusion 2008 LaminectomyZaSnapcious comment on above:nov 2019 Plan of Treatment DateCare ActivityDetailAuthorStart: 02-24-2025 End: 88-84-7713Ekmgaez encounter okjdmjdop66/09/2025 1:30 PM EDT Office Visit [facility] [address] [facility] [address] [place] [id number] Joseph Nunez MD [address] [facility] [address] [place], [place] [id number] ArrivedNOMS CI ENTComment on above:ArrivedStart: 01-20-2025 End: 47-58-7795Pkszzza encounter procedureNOMS CI ENTComment on above:Arrived Start: 01-19-2025 End: 30-43-5375Dcvkeca encounter eeeaqlnyc36/04/2025 1:00 PM EST Office Visit [facility] NB AUD [address] [place] [address] [place] [phone] ClarkJulieth Mildred, AUD [address] [place] [address] ArrivedNOMS NB AUDComment on above:ArrivedStart: 09-20-2020 Pneumococcal Vaccine: 65+ Years (3 of 3 - PPSV23 or PCV20)Pneumococcal Vaccine: 65+ Years (3 of 3 - PPSV23 or PCV20)NOMS HealthcareComprehensive metabolic 2000 panel - Serum or PlasmaJ.W. Ruby Memorial HospitalCT Chest WO contrast [facility] Immunizations Immunization DateImmunizationNotesCare GmriybwlFflvokja24-16-3558wiqjibksb virus vaccine, unspecified formulationJ.W. Ruby Memorial Hospital10-19-2022 influenza, high dose seasonal, preservative-freeBenjamin Ball Other [employer] Other 10703847-65-5084egbgadajr virus vaccine, split virus (incl. purified surface antigen)Cristobal Kearns Other [employer] Other 10720965-99-2587dvirwbyus virus vaccine, unspecified formulationJ.W. Ruby [facility] Hospital09-24-2021COVID-19 Vaccine Pfizer - Documentation Purposes OnlyBenjamin Ball Other [facility]02-23-2021COVID-19 Vaccine Pfizer - Documentation Purposes OnlyBenjamin Ball Other [facility]02-02-2021COVID-19 Vaccine Pfizer - Documentation Purposes OnlyBenjamin Ball Other [facility]09-25-2020zoster vaccine, liveBenjamin Ball Other [facility]09-09-2020influenza virus vaccine, split virus (incl. purified surface antigen)Cristobal Som Other [employer] Other 09-878979-57-0702rbiprvgyr virus vaccine, unspecified formulationJ.W. [facility] Hospital10-09-2019influenza virus vaccine, split virus (incl. purified surface antigen)Cristobal Som Other [employer] Other 10862250-53-6619jntmflsnd virus vaccine, unspecified formulationJ.W. Ruby Memorial Hospital12-12-2018influenza virus vaccine, split virus (incl. purified surface antigen)Cristobal Kearns Other [employer] Other 12-964723-96-1773aqyfakcnr virus vaccine, unspecified formulationJ.W. Ruby [facility] Hospital09-01-2017influenza virus vaccine, split virus (incl. purified surface antigen)Cristobal Som Other [employer] Other 09-468869-92-9859pyywlivrx virus vaccine, unspecified formulationJ.W. [facility] Hospital11-22-2016influenza virus vaccine, split virus (incl. purified surface antigen)Cristobal Som Other [employer] Other 11682179-03-0994ksapyvyuf virus vaccine, unspecified formulationJ.W. Ruby [facility] Hospital12-01-2015influenza virus vaccine, split virus (incl. purified surface antigen)Cristobal Kearns Other [employer] Other 12100135-24-8106wrfzhakqf virus vaccine, unspecified formulationJ.W. Ruby Memorial Hospital11-03-2015pneumococcal conjugate vaccine, 13 valJeramy Kearns Other [facility]12-21-2012 pneumococcal polysaccharide vaccine, 23 valentCristobal Kearns Other [facility] Payers DatePayer CategoryPayerPolicy [id number] Health Insurance [id number] 2024MedicaidAETNA MEDICARE ADVANTAGE [id number] Health [id number] 2..1.639851.3.579.2.647 [id number] 2..1.871073.3.579.2.[id number] 2..1.185945.3.579.2.33560-50-4675Lkevnaq2798232 2..1.849530.3.579.2.61233-71-6329Ainaklq6466910 2.0.1.104831.3.579.2.86057-32-1258Pdcktnn0660876 2..1.554342.3.579.2.89589-22-7692Ysidjms5654187 2..1.462706.3.579.2.49090-57-0516Zhhmlcu1378209 2..1.809946.3.579.2.49789-21-2226Wnvncqo3599305 2.16.840.1.496082.3.579.2.33349-38-4228Klhgyeo9573197 2.16.840.1.330531.3.579.2.59322-29-8278Qxdlxde0327569 2.16.840.1.706160.3.579.2.911138-06-0499Spkxond0895093 2.840.1.119270.3.579.2.429099-07-4498Ogocawi3432106 2.840.1.860240.3.579.2.557310-70-3418Kggsjoi69790059 2.840.1.828564.3.579.2.84851-16-7361Bvayqmq58722989 2.840.1.300905.3.579.[id number] 2.840.1.682650.3.579.2.40813-84-0510Ryqfmsi92175854 2.840.1.414626.3.579.2.82742-27-5971Iunubca43775007 2.840.1.163033.3.579.2.46626-63-7676Jsctymj56521126 2.840.1.498900.3.579.2.27500-92-0110Bwulbxa39459735 2.840.1.331467.3.579.2.57450-38-8507Iiylchb46980285 2.840.1.693020.3.579.2.21376-28-2177Swnpjrr49958906 2.840.1.744073.3.579.[id number] 2.840.1.776347.3.579.2.16908-32-1361Plblypq79451982 2.16.840.1.264965.3.579.2.92054-60-6519Fxqduip40146196 2.16.840.1.869474.3.579.2.23919-28-6691Yqoumet05272940 2.16.840.1.069034.3.579.2.76261-86-2162Mzllpit34499914 2.16.840.1.149250.3.579.2.61500-02-6976Pzsfbeu073355428 2.16.840.1.000154.3.579.2.1286Medicare4UU7MW7AC35 zfj4os71-65kd-2nk6-zu84-a6re093194s5Brnltqx Health ChrinkobmXQXRB7SA 8k2e260x-si04-71p5-d2b8-[id number] 34ul4960-wf2z-98x1-y377-9s8o0ee18o14 Social History DateTypeDetailFacilityStart: 12-09-2019 End: 77-26-2247Lxptoom smoking statusEx-smoker (finding)[facility] CenterComment on above:Quit in 1982Start: 06-64-7905Jcw Assigned At BirthMale [facility] CenterTobacco smoking status NHISTobacco smoking consumption unknownNOMS HealthcareStart: 10-51-1269Gln assigned at birthNot on fileNOMS HealthcareStart: 11-18-1963 End: 83-23-9999Tmazlsn of tobacco useCurrent smokerNOMS HealthcareStart: 11-18-1963 End: 07-15-7882Ucqoxfc of tobacco useCigarette SmokerNOMS HealthcareStart: 01-20-2025 End: 90-17-6342Qoxwkxh use and exposureSmokeless tobacco non-userNOMS Healthcare Start: 01-20-2025 End: 47-92-0099Lopfyiijx beverage intakeLifetime non-drinker (finding)[facility] HealthcareStart: 01-20-2025 End: 07-97-2669Lpescpx of Social functionNOMS HealthcareSexual OrientationMet[facility]health [facility] Center Start: 03-01-2010 End: 29-70-7355AdcYuxm (finding)[facility] 1950 [facility] Medical Equipment Procedure CodeEquipment CodeEquipment Original TextEquipment IdentifierDates Start: 26-10-0069Yxw Needle, Diabetic (Bd Ultra-Fine Short Pen Needle) 31 gauge x 5/16 needleStart: 15-16-7416Gxn Needle, Diabetic 31 gauge x 5/16 needle Start: 29-12-2105Iwj Needle, Diabetic (Bd Ultra-Fine Short Pen Needle) 31 gauge x 5/16 needleStart: 05-27-2024 End: 25-48-3218Sjn Needle, Diabetic 31 gauge x 5/16 needleStart: 08-60-5282Lzy Needle, Diabetic (Bd Ultra-Fine Short Pen Needle) 31 gauge x 5/16 needleStart: 05-27-2024 End: 05-02-2025 Functional Status OreuPtdoebddovBiufmkBkjojsmp44-65-0169Kdqwrrslin StatusN/[facility]04-29-2025Functional StatusN/[facility]04-11-2025 Functional StatusN/[facility]04-07-2025Functional StatusN/A [facility]03-20-2025Functional StatusN/[facility]02-25-2025Functional StatusN/[facility] 72-74-7268Tjlpjdmdhg StatusN/[facility]01-20-2025Functional StatusN/[facility]12-12-2024Functional StatusN/[facility]11-26-2024Functional StatusN/[facility] 82-00-1251Tuvlklojee StatusN/[facility]09-16-2024Functional StatusN/[facility]07-01-2024Functional StatusN/[facility]05-10-2024Functional StatusN/[facility] 04-33-1742Wuxfafropg StatusN/[facility]02-28-2024Functional StatusN/[facility]01-29-2024Functional StatusN/[facility]12-22-2023Functional StatusN/[facility] 52-20-1447Aqajfrofjw StatusN/[facility]09-19-2023Functional StatusN/[facility]08-15-2023Functional StatusN/[facility]02-24-2023Functional StatusN/[facility] [id number] StatusN/[facility]12-22-2022[facility] 01-08-2023 to 08-28-2025 Note Date & [id number] NoteXR CHEST 1 VW Procedure: Chest x-ray performed Number of views:1 History:Syncope Comparison:None Findings: The heart and lungs show no acute findings, and the mediastinum and yodit are grossly negative . Impression: 1. No acute change. Finalized by Jax Prakash MD on 08/28/2025 7:05 [facility] 07-20-2025 NoteUT Electrophysiology Consult Note [facility] Reason for visit: Nonsustained ventricular [...] Value Ventricular Rate 57 Atrial Rate 57 ND Interval 256 QRS DURATION 100 QT Interval 440 QTC CALCULATION(BAZETT) 428 P [place] 53 R-[place] 5 T Wave [place] 66 Impression Sinus bradycardia with 1st degree A-V block with Premature atrial complexes Inferior infarct (cited on or before 22-JUN-2005) Abnormal ECG When compared with ECG of 06-JUN-2015 11:12, Premature atrial complexes are now Present ND interval has increased Confirmed by Roxie ELENA, [...] distal vessel via pa (more content not included)...[facility]06-11-2025 NoteUT Cardiology - [facility] Subjective Trae Pineda is a 75 [...] pain Primary hypertension Coronary artery disease involving [place] coronary artery of [place] heart 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 Mild left ve (more content not included)...[facility] 04-06-2025 NoteConsultation Note Patient is presenting with [...] going to trial this as well asSilver mistis but may consider referral to formal physical [...] to defer at this time and trial Herson oswald on his own but may consider this [...] call with any questions or concerns that arise.[facility] CenterComment on above:Result Comment: Electronically Signed By: John [...] call with any questions or concerns that arise.[facility] [id number] NotePatient: Trae Pineda Procedure Information Date/Time: 03/25/25 1130 Procedures: Coronary angiography Coronary bypass graft study Right heart cath Location: [facility] [employer] [facility] / [facility] (Cath) Providers: Moi Moss MD Clinical information reviewed: Allergies Meds Physical Exam Airway Mallampati: III TM distance: <3 FB Cardiovascular Rhythm: regular Rate: normal Dental Pulmonary Abdominal Anesthesia Plan ASA 3 other (Conscious ) Anesthetic plan and risks discussed with patient. Use of blood products discussed with patient who consented to blood products. Plan discussed with attending. [facility] Note Consultation Note Patient: TRAE PINEDA Age: [...] IN THE MORNING fluticasone Nasal 0.05 mg/inh [place]: Refill(s) 0 lisinopril: 10 mg, Daily, Refills(s) 0 loratadine 10 mg oral capsule: 10 mg = 1 cap(s), Oral, Daily, # 10 cap(s), Refills(s) 0 metoprolol succinate 25 mg ER Tab: 12.5 mg = 0.5 tab(s), Oral, Daily, Refills(s) 0 testosterone 2% transdermal cream: See Instructions, apply topically daily, Refills(s) 0 Problem list: All Problems History of heart attack / SNOMED CT 2754423937 / Confirmed Acute angina / SNOMED CT 887510769 / Confirmed Irregular heart beat / SNOMED CT 310301576 / Confirmed HTN (hypertension) / SNOMED CT 0241076066 / Confirmed High cholesterol / SNOMED CT 40132353 / Confirmed H/O heart bypass surgery / SNOMED CT 062910313 / Confirmed Apnea, sleep / SNOMED CT 657291254 / Confirmed CPAP (continuous positive airway pressure) dependence / SNOMED CT 1565845951 / Confirmed Enlarged prostate / SNOMED CT 360872451 / Confirmed Chronic kidney disease (CKD) / SNOMED CT 1765597006 / Confirmed Diabetes / SNOMED CT 302227130 / Confirmed Carpal tunnel syndrome / SNOMED CT 30437450 / Confirmed Anemia / SNOMED CT 803755126 / Confirmed Arthritis, rheumatoid / SNOMED CT 709241352 / Confirmed Obesity / ICD-9-CM 278.00 / Possible Obesity / SNOMED CT [id number] / Possible Objective Vital Signs 02/26/2025 13:49 [...] with bilateral facet loading Integumentary: Warm, Dry, [place]. Neurologic: Alert, Oriented. Psychiatric: Cooperative, Appropriate mood [...] treatments and the significa (more content not included)...[facility] CenterComment on above:Result Comment: Electronically Signed By: Margareth De La Cruz PA-C\.dawit\Date and Time Signed: 02/26/25 14:01 [id number] Evaluation + Plan noteExtracted from:Title: Pain Managment [...] reevaluation. Call next if necessary. 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 ([facility]) 07/21/2014 Arthritis, rheumatoid ([facility]) 01/18/2025 Benign prostatic hyperplasia with lower urinary tract symptoms 08/14/2022 Body mass index (BMI) 32.0-32.9, adult 03/12/2024 Carotid bruit 03/12/2024 Carpal tunnel syndrome 06/04/2023 Acute angina ([facility]) 01/18/2025 Chronic anxiety 07/25/2022 Chronic bronchitis, mucopurulent ([facility]) 03/12/2024 Chronic obstructive lung disease ([facility]) 01/27/2013 Chronic kidney disease 06/04/2023 CPAP (continuous positive airway pressure) dependence 06/04/2023 Cystitis cystica 03/17/2024 Depressive disorder ([facility]) 01/27/2013 Disorder of lipid metabolism ([facility]) 08/31/2014 ARAGON (dyspnea on exertion) 02/24/2013 Enlarged prostate 06/04/2023 Erectile dysfunction 08/14/2022 Gallstone 01/27/2013 Generalized anxiety disorder ([facility]) 01/27/2013 Generalized ischemic myocardial dysfunction ([facility]) 07/25/2022 GERD (gastroesophageal reflux disease) 03/12/2024 History of heart attack ([facility]) 01/18/2025 History of open heart surgery 06/04/2023 High cholesterol ([facility]) 01/18/2025 Hypogonadism in male 08/14/2022 Incomplete bladder emptying 05/14/2024 Irregular heart rhythm 06/04/2023 Kidney stone 01/27/2013 Lumbar spondylosis 03/12/2024 Lung nodule 08/14/2022 Nicotine dependence, cigarettes, in remission 03/12/2024 Orthostatic dizziness 07/30/2024 Other obesity due to excess calories 03/12/2024 Benign essential hypertension ([facility]) 07/30/2014 Medicare annual wellness visit, subsequent 01/18/2025 Seizure ([facility]) 01/27/2013 TALA (obstructive sleep apnea) 01/18/2025 Spinal stenosis, lumbar region with neurogenic claudication 01/20/2024 Suprapubic discomfort 08/14/2022 Diabetes ([facility]) 01/18/2025 Type 2 diabetes mellitus with diabetic polyneuropathy ([facility]) 03/12/2024 Urge urinary incontinence 05/14/2024 Nonsustained ventricular tachycardia ([facility]) 02/17/2025 Resolved Ambulatory Problems Diagnosis Date [...] 2 (two) times a day Multiple Vitamins-Minerals ([employer] [facility] PO) Take by mouth Myrbetriq 50 [...] There is no polypoisis sinus drainage. No FLIGHT DIRECTOR path Assessment/Plan Diagnoses and all orders for [...] in hearing with ZARAGOZA. No path in FLIGHT DIRECTOR evident documented in this encounterSaint John's Health [id number] NoteOperative Report Diagnosis: m47.816, lumbar spondyloarthropathy Procedure: [...] The patient agrees to continue currently prescribed/recommended therapies.[facility] CenterComment on above: Result Comment: Electronically Signed By: John Cannon DO\.br\Date and Time Signed: 02/22/25 09:43 [id number] Evaluation + Plan noteExtracted from: Title:Bilateral lumbar [...] Scheduled Provider:Margareth De La Cruz PA-C Location:.[facility] Appointment Type:Pain Management - Follow Up (FT) [facility] [id number] Evaluation + Plan noteExtracted from:Title: Bilateral lumbar [...] Date:04/06/2025 12:45:00 PM Scheduled Provider:John Cannon DO Location[facility] Appointment Type:Pain Management - Follow Up (FT) [facility] 04-02-2025 NoteUT Cardiology - [facility] Subjective Trae Pineda is [...] pain Primary hypertension Coronary artery disease involving [place] coronary artery of [place] heart 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 For his [...] -Will refer him to orthopedics up in [place] where he lives as he would like [...] call with any questions or concerns that arise.[facility] 03-20-2025 NoteConsultation Note History of lumbar stenosis [...] would like a referral to orthopedics in [place] for further evaluation of this. For his [...] -Will refer him to orthopedics up in [place] where he lives as he would like [...] call with any questions or concerns that arise.[facility] CenterComment on above:Result Comment: Electronically Signed By: John Cannon DO\.br\Date and Time Signed: 02/04/25 12:42 [id number] NoteUrology Clinic H&P Dr. Diony Ariza MD Patient: Trae Pineda Date of : 1950 CHIEF COMPLAINT: Low testosterone, BPH HISTORY OF PRESENT ILLNESS: 02/02/2025 Tonja Fu (Scribe) documented on behalf of [...] experience as getting the urge but, about prison to the bathroom when he begins to [...] with frequency AUA symptom score is 15 haudyfu-kx-pzoe is 4 UDS - delayed sensation Incomplete [...] incompletely emptying, -He notes (more content not included)...[facility] 02-02-2025 Note02/02/2025 ITonja (Scribe) documented on behalf of Dr. [...] experience as getting the urge but, about prison to the bathroom when he begins to [...] with frequency AUA symptom score is 15 ptftcwt-ap-yzfv is 4 UDS - delayed sensation Incomplete [...] service and the documentation is accurate and complete.[facility]03-17-2025 NoteOperative Report Diagnosis: m47.816, lumbar spondyloarthropathy Procedure: [...] The patient agrees to continue currently prescribed/recommended therapies.[facility] CenterComment on above: Result Comment: Electronically Signed By: John Cannon DO\.br\Date and Time Signed: 02/01/25 14:25 [id number] Evaluation + Plan noteExtracted from: Title:Bilateral lumbar [...] Date:02/04/2025 11:30:00 AM Scheduled Provider:John Cannon DO Location:.[facility] [place] Appointment Type:Pain Management - Follow Up (FT) [facility] 03-05-2025 History of Present illness Narrative* Joseph [...] Date Noted Anemia 06/04/2023 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 ([facility]) 07/21/2014 Arthritis, rheumatoid ([facility]) 01/18/2025 Benign prostatic hyperplasia with lower urinary tract symptoms 08/14/2022 Body mass index (BMI) 32.0-32.9, adult 03/12/2024 Carotid bruit 03/12/2024 Carpal tunnel syndrome 06/04/2023 Acute angina ([facility]) 01/18/2025 Chronic anxiety 07/25/2022 Chronic bronchitis, mucopurulent ([facility]) 03/12/2024 Chronic obstructive lung disease ([facility]) 01/27/2013 Chronic kidney disease 06/04/2023 CPAP (continuous positive airway pressure) dependence 06/04/2023 Cystitis cystica 03/17/2024 Depressive disorder ([facility]) 01/27/2013 Disorder of lipid metabolism ([facility]) 08/31/2014 ARAGON (dyspnea on exertion) 02/24/2013 Enlarged prostate 06/04/2023 Erectile dysfunction 08/14/2022 Gallstone 01/27/2013 Generalized anxiety disorder ([facility]) 01/27/2013 Generalized ischemic myocardial dysfunction ([facility]) 07/25/2022 GERD (gastroesophageal reflux disease) 03/12/2024 History of heart attack ([facility]) 01/18/2025 History of open heart surgery 06/04/2023 High cholesterol ([facility]) 01/18/2025 Hypogonadism in male 08/14/2022 Incomplete bladder emptying 05/14/2024 Irregular heart rhythm 06/04/2023 Kidney stone 01/27/2013 Lumbar spondylosis 03/12/2024 Lung nodule 08/14/2022 Nicotine dependence, cigarettes, in remission 03/12/2024 Orthostatic dizziness 07/30/2024 Other obesity due to excess calories 03/12/2024 Benign essential hypertension ([facility]) 07/30/2014 Medicare annual wellness visit, subsequent 01/18/2025 Seizure ([facility]) 01/27/2013 TALA (obstructive sleep apnea) 01/18/2025 Spinal stenosis, lumbar region with neurogenic claudication 01/20/2024 Suprapubic discomfort 08/14/2022 Diabetes ([facility]) 01/18/2025 Type 2 diabetes mellitus with diabetic polyneuropathy ([facility]) 03/12/2024 Urge urinary incontinence 05/14/2024 Resolved Ambulatory [...] Take 10 mg by mouth Multiple Vitamins-Minerals ([employer] [facility] PO) Take by mouth Myrbetriq 50 [...] endo if no improvement. documented in this [facility]2025 History of Present illness Narrative* VIET Pickett - 01/19/2025 1:00 PM EST History: Patient [...] Impressions: Dr. Nunez 01-20-2025 documented in this [facility]02-25-2025 Evaluation + Plan note Extracted from:Title:Pain Managment Follow upAuthor:Jono AGOSTO, AmandaDate: 01/12/25 Impression and Plan Patient is a [...] the clinic sooner if necessary. LEONOR score: 40%.[facility] 02-25-2025 NoteConsultation Note Patient: TRAE IPNEDA Age: 74 years Sex: Male : 1950 [...] History of heart attack / SNOMED CT 4774987499 / Confirmed Acute angina / SNOMED CT 046898997 / Confirmed Irregular heart beat / SNOMED CT 582227411 / Confirmed HTN (hypertension) / SNOMED CT 3387513733 / Confirmed High cholesterol / SNOMED CT 97000829 / Confirmed H/O heart bypass surgery / SNOMED CT 191272400 / Confirmed Apnea, sleep / SNOMED CT 724704209 / Confirmed CPAP (continuous positive airway pressure) dependence / SNOMED CT 4016443188 / Confirmed Enlarged prostate / SNOMED CT 371864113 / Confirmed Chronic kidney disease (CKD) / SNOMED CT 4576179686 / Confirmed Diabetes / SNOMED CT 353723902 / Confirmed Carpal tunnel syndrome / SNOMED CT 42179014 / Confirmed Anemia / SNOMED CT 507269723 / Confirmed Arthritis, rheumatoid / SNOMED CT 006479416 / Confirmed Obesity / ICD-9-CM 278.00 / Possible Obesity / SNOMED CT [id number] / Possible Objective Vital Signs 01/12/2025 10:31 [...] with bilateral facet loading Integumentary: Warm, Dry, [place]. Small area of eschar improved from before. [...] views. 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 Normal right v (more content not included)...[facility] 12-15-2024 Evaluation + Plan noteExtracted from:Title:Pain Managment Follow up Author:Jono AGOSTO, AmandaDate:12/15/24 Impression and Plan Patient is a 74-year-old [...] Scheduled Provider:Margareth De La Cruz PA-C Location:.[facility] Appointment Type:Pain Management - Follow Up (FT) [facility] 01-28-2025 NoteConsultation Note Patient: TRAE PINEDA Age: [...] Spasm, # 30 tab(s), Refills(s) 0, Pharmacy: [facility]/pharmacy #[id number], 183, cm, 02/14/24 13:46:00 EDT, [...] History of heart attack / SNOMED CT 4495879937 / Confirmed Acute angina / SNOMED CT 990065658 / Confirmed Irregular heart beat / SNOMED CT 832430109 / Confirmed HTN (hypertension) / SNOMED CT 8061860062 / Confirmed High cholesterol / SNOMED CT 72713862 / Confirmed H/O heart bypass surgery / SNOMED CT 362696958 / Confirmed Apnea, sleep / SNOMED CT 845795513 / Confirmed CPAP (continuous positive airway pressure) dependence / SNOMED CT 0254845060 / Confirmed Enlarged prostate / SNOMED CT 451240110 / Confirmed Chronic kidney disease (CKD) / SNOMED CT 5560433375 / Confirmed Diabetes / SNOMED CT 226593881 / Confirmed Carpal tunnel syndrome / SNOMED CT 82147511 / Confirmed Anemia / SNOMED CT 942685516 / Confirmed Arthritis, rheumatoid / SNOMED CT 391002880 / Confirmed Obesity / ICD-9-CM 278.00 / Possible Obesity / SNOMED CT [id number] / Possible Objective Vital Signs 12/15/2024 10:15 EST Peripheral Pulse Rate 67 bpm Respiratory Rate 14 br/min Systolic Blood Pressure 130 mmHg Diastolic Blood Pressure 61 mmHg Mean Arterial Pressure, Cuff 84 mmHg General: Alert and oriented, No acute distress. Eye: Normal conjunctiva. HENT: Normocephalic, Normal hearing. Cardiovascular: No edema. Musculoskeletal Normal range of motion. Normal strength. 5/5 strength Integumentary: Warm, Dry, [place]. Small area of eschar Some glue residue [...] he wonders about pos (more content not included)...[facility] Comment on above:Result Comment: Electronically Signed By: Jono AGOSTO, Margareth\.dawit\Date and Time Signed: 12/15/24 10:41 [id number] Evaluation + Plan noteExtracted from:Title:ANES Post-operative Note - MACAuthor:Hossein Ge Gerber MENDOZA GDate:12/07/24 Plan Transfer/Discharge: Transfer/Discharge Discharge when meets [...] then advanced into the appropriate space using [id number] and confirmed by fluoroscopy and contrast spread. [...] Pain MgtAuthor:Gerber Catalan Jr., DO GDate:12/07/24 Plan [place] [employer] Anesthesiologists (ASA) physical status classification: Class III. Anesthetic Preoperative Plan: Anesthesia Monitored anethesia care. Future Appointments Appointment Date:12/15/2024 10:15:00 AM Scheduled Provider:Margareth De La Cruz PA-C Location:[facility] Appointment Type:Pain Management - Follow Up (FT) [facility] [id number] NoteProgress Note-Physician Patient: TRAE PINEDA Age: 74 years Sex: Male : 1950 Associated Diagnoses: None Author: Gerber Catalan Jr., DO Postoperative Information Postoperative disposition: Postoperative disposition: To PACU. Optimetrix number: Optimetrix number [id number]. Anesthetic utilized: Monitored anesthesia care. Physical Examination Vital signs stable. Pain Assessment: Controlled. General: Awake, Alert, Appropriate. Respiratory: Adequate air exchange, Equal bilateral chest wall expansion, Non-labored. Cardiovascular: Stable, Normal peripheral perfusion. Neurological: Normal sensory function. Assessment Anesthetic outcome No anesthetic complications noted. Review / Management Condition: Stable. Plan Transfer/Discharge: Transfer/Discharge Discharge when meets criteria.[facility] CenterComment on above:Result Comment: Electronically Signed By: Gerber Catalan Jr., DO\.br\Date and Time Signed: 12/07/24 12:41 [id number] NoteProgress Note-Physician Patient: TRAE PINEDA Age: 74 [...] BID, # 120 cap(s), Refills(s) 0, Pharmacy: [facility]/pharmacy #[id number], 183, cm, 10/13/24 14:06:00 EST, Height/Length Dosing, 104.3, kg, 10/13/24 14:06:00 EST, Weight Dosing baclofen 5 mg oral tablet: 5 mg = 1 tab(s), Oral, TID, PRN Spasm, # 30 tab(s), Refills(s) 0, [id number], cm, 02/14/24 13:46:00 EDT, Height/Length [...] All Problems Acute angina / SNOMED CT 835090942 / Confirmed Anemia / SNOMED CT 051855966 / Confirmed Apnea, sleep / SNOMED CT 345155547 / Confirmed Arthritis, rheumatoid / SNOMED CT 803174847 / Confirmed Carpal tunnel syndrome / SNOMED CT 28495362 / Confirmed Chronic kidney disease (CKD) / SNOMED CT 6767790281 / Confirmed CPAP (continuous positive airway pressure) dependence / SNOMED CT 9457695757 / Confirmed Diabetes / SNOMED CT 009112415 / Confirmed Enlarged prostate / SNOMED CT 664350110 / Confirmed H/O heart bypass surgery / SNOMED CT 271965503 / Confirmed High cholesterol / SNOMED CT 80346745 / Confirmed History of heart attack / SNOMED CT 6295032537 / Confirmed HTN (hypertension) / SNOMED CT 8631163904 / Confirmed Irregular heart beat / SNOMED CT 806613926 / Confirmed Obesity / ICD-9-CM 278.00 / Possible Obesity / SNOMED CT [id number] / Possible Histories Past Medical History: No active or resolved past medical history items have been selected or recorded. Procedure history: L5/S1 lumbar interlaminar epidural steroid injection ([id number]) on 01/15/2024 at 73 Years. Comments: 02/14/2024 13:35 CHIOT Lupis Reddy 0% relief Transforaminal Epidural Steroid Injection ([id number]) on 08/06/2023 at 73 Years. Comments: 09/06/2023 11:11 JUAN CARLOS Griggs RN, Heatehr chun L5/S1 TFESI- 90% relief x 2 weeks Injection of nerve root of lumbar spine using fluoroscopic guidance ([id number]) on 12/12/2022 at 72Years. Comments: 01/11/2023 13:49 Mago Landa RN L5-S1-90% relief Bilateral L5 TFESI ([id number]) on 11/22/2021 at 71 Years. Comments: 12/29/2021 12:59 VIGNESH Hartley RN, Lula Schuler Bilateral L5 TFESI-90-95% relief Transforaminal Epidural steroid injection-B/L L5 ([id number]) on 07/01/2020 at 70 Years. Comm (more content not included)...[facility] CenterComment on above: Result Comment: Electronically Signed By: Gerber Catalan Jr., DO.dawit\Date and Time Signed: 12/07/24 07:16 [id number] NoteUrology Documentation Note Trae Pineda is a [...] to update patient regarding the above. Morenita Larsen, ANGIE Urology/Renal Transplant [facility] 11-12-2024 Chief complaint+Reason for visit Narrative* Chief [...] 2025 1:1 5pm ASHD (arteriosclerotic heart disease) [facility] 2024 1:15pm Chronic bronchitis, mucopurulent January 172024 1:15pm Chronic kidney disease February 10, 2025 1:15pm GERD (gastroesophageal reflux disease) [facility] 26th, 2025 1:15pm Hypercholesterolemia February 10, 2025 1: 15pm Hypertension February 10, 2025 1:1 5pm NSVT (nonsustained ventricular tachycard ia) February 10, 2025 1:15pm TALA (obstructive sleep apnea) January 1:15pm Pulmonary nodule February 10, 2025 1:1 5pm Type 2 diabetes mellitus with diabetic p olyneuropathy February 10, 2025 1:15pm Type 2 diabetes mellitus with hyperglyce radames February 10, 2025 1:15pm [facility] Work Phone: 1(880) 406-879612-26-2024 Evaluation note* Diagnosis Onset Date Resolution Status Admit Date Anemia acuteDece2023 9:58amASHD (arteriosclerotic heart disease)acute November 12, 2024 9:58amChronic bronchitis, mucopurulentacuteDeceer 2023 9:58amChronic kidney diseaseacuteDece2023 9:58amGERD (gastroesophageal reflux disease)acuteDece2023 9:58am HypercholesterolemiaacuteDece2023 9:58amHypertensionacuteDece2023 9:58amOSA (obstructive sleep apnea)acute2023 9:58am Pulmonary noduleacutece2023 9:58amType 2 diabetes mellitus with diabetic polyneuropathyacutece2023 9:58amType 2 diabetes mellitus with hyperglycemiaacutece2023 9:58amAnemiaacuteMarch 2024 1:15pmASHD (arteriosclerotic heart disease)[facility] [place] 1:15pmChronic bronchitis, mucopurulentacuteR[facility] [place] 20[place] 1:15pmChronic kidney diseaseacute February 10, 2025 1:15pmGERD (gastroesophageal reflux disease)[facility] 20[facility] 1:15pmHypercholesterolemiaacute[facility] 1:15pmHypertensionacute February 10, 2025 1:15pmNSVT (nonsustained ventricular tachycardia)[facility] 1:15pmOSA (obstructive sleep apnea)[facility] 1:15pm [facility] noduleacute[facility] 2024 1:15pmType 2 diabetes mellitus with diabetic polyneuropathyacute[facility] 2024 1:15pmType 2 diabetes mellitus with hyperglycemiaacute[facility] 2024 1:15pm [facility] Work Phone: [phone] 208-798412-17-2024 NoteUrology Clinic H&P Dr. 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 Some relief but not enough. He did therapyin the past that has not helped. He has done epidural steroid injections in the past. Some helped and some did not. He has taken czcq-zwd-hwrjfat medications again with some improvement not enough. Health Status Allergies: Allergic Reactions (Selected) Severity Not Documented HydrALAZINE- Palpatations. Statins- Muscle ache., Allergies (2) Active Severity Reaction statins muscle ache hydrALAZINE palpatations Current medications: (Selected) Prescriptions Prescribed baclofen 5 mg oral tablet: 5 mg = 1 tab(s), Oral, TID, PRN Spasm, # 30 tab(s), Refills(s) 0, Pharmacy: [facility]/pharmacy #[id number], 183, cm, 02/14/24 13:46:00 EDT, [...] History of heart attack / SNOMED CT 4886078383 / Confirmed Acute angina / SNOMED CT 865065649 / Confirmed Irregular heart beat / SNOMED CT 950275556 / Confirmed HTN (hypertension) / SNOMED CT 2334310663 / Confirmed High cholesterol / SNOMED CT 48323714 / Confirmed H/O heart bypass surgery / SNOMED CT 721373246 / Confirmed Apnea, sleep / SNOMED CT 756691043 / Confirmed CPAP (continuous positive airway pressure) dependence / SNOMED CT 2668658054 / Confirmed Enlarged prostate / SNOMED CT 364197213 / Confirmed Chronic kidney disease (CKD) / SNOMED CT 4999834915 / Confirmed Diabetes / SNOMED CT 257897528 / Confirmed Carpal tunnel syndrome / SNOMED CT 74852007 / Confirmed Anemia / SNOMED CT 717637696 / Confirmed Arthritis, rheumatoid / SNOMED CT 457510524 / Confirmed Obesity / ICD-9-CM 278.00 / Possible Obesity / SNOMED CT [id number] / Possible Objective Vital Signs 10/13/2024 13:51 [...] right straight leg raise Integumentary: Warm, Dry, [place]. Neurologic: Alert, Oriented. Psychiatric: Cooperative, Appropriate mood [...] Unfortunate, some of his (more content not included)...[facility] CenterComment on above:Result Comment: Electronically Signed By: Margareth De La Cruz PA-C\.br\Date and Time Signed: 10/13/24 14:19 [id number] Evaluation + Plan noteExtracted from:Title:Pain Managment Follow [...] call him as well mention. LEONOR score: 38%.[facility] 10-22-2024 Evaluation + Plan noteExtracted from:Title: Bilateral L4/5 transforaminal epidural steroid injectionsAuthor:John Cannon DODate:09/08/24 Diagnosis: m54.17, lumbosacr al radiculopathy [...] PM Scheduled Provider:Margareth De La Cruz PA-C [facility] - Follow Up (FT) [facility] 10-22-2024 NoteOperative Report Diagnosis: m54.17, lumbosacral radiculopathy [...] and agrees to comply to currently prescribed/recommended therapies.[facility] Comment on above:Result Comment: Electronically Signed By: John Cannon DO.dawit\Date and Time Signed: 09/08/24 11:45 [id number] NoteUT Cardiology [facility] Subjective Trae Pineda is [...] pain Primary hypertension Coronary artery disease involving [place] coronary artery of [place] heart 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 Suprapubic discomfort [...] LV filling pattern). Nor (more content not included)...[facility]09-16-2024 NoteConsultation Note Patient: TRAE PINEDA Age: [...] he was driving back and forth to [place] for his . She ended up passing [...] that he is now trying to [place] to do things to help take [...] and some did not. He has taken bgsb-oec-fmvfrxv medications again with some improvement not enough. [...] BID, # 120 tab(s), Refills(s) 0, [id number], cm, 05/18/24 13:21:00 EDT, Height/Length Dosing, 107, kg, 05/18/24 13:21:00 EDT, Weight Dosing baclofen 5 mg oral tablet: 5 mg = 1 tab(s), Oral, TID, PRN Spasm, # 30 tab(s), Refills(s) 0, [id number], cm, 02/14/24 13:46:00 EDT, Height/Length Dosing, 110.3, kg, 02/14/24 13:46:00 EDT, Weight Dosing gabapentin 300 mg Cap: 300 mg = 1 cap(s), Oral, Once a day (at bedtime), # 30 cap(s), Refills(s) 1,[id number], cm, 12/16/23 10:37:00 EST, [...] History of heart attack / SNOMED CT 5007934915 / Confirmed Acute angina / SNOMED CT 863435233 / Confirmed Irregular heart beat / SNOMED CT 823159482 / Confirmed HTN (hypertension) / SNOMED CT 8729912936 / Confirmed High cholesterol / SNOMED CT 82840214 / Confirmed H/O heart bypass surgery / SNOMED CT 487708031 / Confirmed Apnea, sleep / SNOMED CT 090019316 / Confirmed CPAP (continuous positive airway pressure) dependence / SNOMED CT 3745273878 / Confirmed Enlarged prostate / SNOMED CT 316739646 / Confirmed Chronic kidney disease (CKD) / SNOMED CT 1340435431 / Confirmed Diabetes / SNOMED CT 666421928 / Confirmed Carpal tunnel syndrome / SNOMED CT 38272125 / Confirmed Anemia / SNOMED CT 926182759 / Confirmed Arthritis, rheumatoid / SNOMED CT 022625190 / Confirmed Obesity / ICD-9-CM 278.00 / Possible Obesity / SNOMED CT [id number] / Possible Objective Vital Signs 08/03/2024 14:37 [...] right straight leg raise Integumentary: Warm, Dry, [place]. Neurologic: Alert, Oriented. (more content not included)...[facility] CenterComment on above:Result Comment: Electronically Signed By: Margareth De La Cruz PA-C\.br\Date and Time Signed: 08/03/24 14:57 [id number] Evaluation + Plan noteExtracted from:Title: Pain Managment [...] necessary. Follow-up as above mention. LEONOR score: 53%.[facility] 07-01-2024 Evaluation + Plan noteExtracted from:Title: Pain Managment [...] Provider:Margareth De La Cruz PA-C [facility] Appointment Type:Pain Management - Follow Up (FT) [facility]07-01-2024 NoteConsultation Note Patient: TRAE PINEDA Age: 74 [...] BID, # 120 tab(s), Refills(s) 0, Pharmacy: [facility]/pharmacy #[id number], 183, cm, 05/18/24 13:21:00 EDT, Height/Length Dosing, 107, kg, 05/18/24 13:21:00 EDT, Weight Dosing baclofen 5 mg oral tablet: 5 mg = 1 tab(s), Oral, TID, PRN Spasm, # 30 tab(s), Refills(s) 0, [id number], cm, 02/14/24 13:46:00 EDT, Height/Length Dosing, 110.3, kg, 02/14/24 13:46:00 EDT, Weight Dosing gabapentin 300 mg Cap: 300 mg = 1 cap(s), Oral, Once a day (at bedtime), # 30 cap(s), Refills(s) 1,[id number], cm, 12/16/23 10:37:00 EST, [...] History of heart attack / SNOMED CT 3204110824 / Confirmed Acute angina / SNOMED CT 887159535 / Confirmed Irregular heart beat / SNOMED CT 098211160 / Confirmed HTN (hypertension) / SNOMED CT 6435779423 / Confirmed High cholesterol / SNOMED CT 58312698 / Confirmed H/O heart bypass surgery / SNOMED CT 615850200 / Confirmed Apnea, sleep / SNOMED CT 197084856 / Confirmed CPAP (continuous positive airway pressure) dependence / SNOMED CT 9217904980 / Confirmed Enlarged prostate / SNOMED CT 056143916 / Confirmed Chronic kidney disease (CKD) / SNOMED CT 1125410398 / Confirmed Diabetes / SNOMED CT 162820046 / Confirmed Carpal tunnel syndrome / SNOMED CT 92961940 / Confirmed Anemia / SNOMED CT 417931862 / Confirmed Arthritis, rheumatoid / SNOMED CT 004681759 / Confirmed Obesity / ICD-9-CM 278.00 / Possible Obesity / SNOMED CT [id number] / Possible Objective Vital Signs 05/18/2024 13:07 [...] right straight leg raise Integumentary: Warm, Dry, [place]. Neurologic: Alert, Oriented. Psychiatric: Cooperative, Appropriate mood [...] activities affects his ed (more content not included)...[facility] CenterComment on above:Result Comment: Electronically Signed By: Margareth De La Cruz PA-C\.br\Date and Time Signed: 05/18/24 13:44 [id number] Evaluation + Plan noteExtracted from:Title:Pain Managment Follow [...] PM Scheduled Provider:Margareth De La Cruz PA-C Location:[facility] Appointment Type:Pain Management - Follow Up (FT) [facility]03-29-2024 Evaluation + Plan noteExtracted from: [...] PM Scheduled Provider:Margareth De La Cruz PA-C Location:FT.[facility] Appointment Type:Pain Management - Follow Up (FT) [facility]02-28-2024 Evaluation + Plan noteExtracted from: Title:L5/S1 interlaminar [...] the epidural space was confirmed using the lvbo-dl-jnxrgxsgqs technique and 2 cc of air. Injection [...] Provider:Margareth De La Cruz PA-C Location[facility] Appointment Type:Pain Management - Follow Up (FT) [facility]01-29-2024 Evaluation + Plan noteExtracted from: [...] He will follow-up as above-mentioned LEONOR score: 48%[facility]01-02-2024 Evaluation note* Encounter Date Diagnosis Assessment Notes Treatment Notes Treatment Clinical Notes Nov, Pulmonary nodule (ICD-10 - R91.1 ) CT: RML 4mm nodule - 02/2022, CT: RML 7mm nodule - 02/2023 CT: stable - 08/2023ight carotid bruit (ICD-10 - R09.89)Carotid US: 50-69% stenosis - 2019, Carotid US: < 50% ICA w/ 75% right carotid bulb - 08/2021 [facility] Other 12-28-2023 Evaluation note* Encounter Date Diagnosis Assessment Notes Treatment Notes Treatment Clinical Notes Oct, 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 (ICD-10 - E11.3291) [facility] Other 12-26-2023 Evaluation note* Encounter Date Diagnosis [...] use, the patient reduces the risk for [place], CVA, HTN, cardiac dysrhythmias and sudden cardiac [...] index [BMI] 32.0-32.9, adult (ICD-10 - Z68.32) [facility] Other 12-22-2023 Evaluation + Plan noteExtracted from:Title: Pain Managment Follow upAuthor:Margareth De La Cruz PA-CDate:11/08/23 Impression and Plan Patient is a 73-year-old [...] AM Scheduled Provider:Margareth De La Cruz PA-C Location:FT.[facility] Appointment Type:Pain Management - Follow Up (FT) [facility]10-20-2023 Evaluation + Plan noteExtracted from: Title:Pain Managment [...] AM Scheduled Provider:Margareth De La Cruz PA-C Location:.[facility] Appointment Type:Pain Management - Follow Up (FT) [facility]10-18-2023 Evaluation note* Encounter Date Diagnosis Assessment Notes Treatment Notes Treatment Clinical Notes Aug, Pulmonary nodule (ICD-10 - R91.1 ) CT: RML 4mm nodule - 02/2022, CT: RML 7mm nodule - 02/2023 CT: stable - 08/2023 [facility] Other 10-04-2023 Evaluation note* Encounter Date Diagnosis Assessment Notes Treatment Notes Treatment Clinical Notes Aug, Pulmonary nodule (ICD-10 - R91.1 ) [facility] Other 08-15-2023 Evaluation + Plan noteExtracted from:Title: [...] the clinic sooner if necessary. LEONOR score: 44%[facility]05-02-2023 Evaluation note* Encounter Date Diagnosis Assessment Notes Treatment Notes Treatment Clinical Notes March, COVID-19 (ICD-10 - U07.1) Instructed to use Robitussin or Mucinex for cough, saline or Flonase NS for congestion, Tylenol forpain and fever. March,hronic bronchitis, mucopurulent (ICD-10 - J41.1)Mucinex DM as needed. Push fluids [facility] Other 04-20-2023 Evaluation note* Encounter Date Diagnosis Assessment Notes Treatment Notes Treatment Clinical Notes Feb, Pulmonary nodule (ICD-10 - R91.1 ) CT: RML 4mm nodule - 02/2022 CT: RML 7mm nodule - 02/2023 [facility] Other 04-11-2023 Evaluation note* Encounter Date Diagnosis Assessment Notes Treatment Notes Treatment Clinical Notes Feb, Pulmonary nodule (ICD-10 - R91.1 ) [facility] Other 02-24-2023 Evaluation + Plan noteExtracted from:Title: [...] should he require a repeatinjection. LEONOR score: 19[facility]02-21-2023 Evaluation note* Encounter Date Diagnosis [...] - erial LDCT for lung cancer detection [place] [facility] Other Evaluation + Plan note No data available for this section [facility] CenterEvaluation [facility] Plan note Future Appointments Appointment Date:01/11/2023 01:45:00 PM Scheduled Provider:Margareth De La Cruz PA-C Location:[facility] [place] Appointment Type:Pain Management - Follow Up (FT) [facility] note Future Appointments Appointment Date:09/06/2023 11:00:00 AM Scheduled Provider:Margareth De La Cruz PA-C Location:[facility] [place] Appointment Type:Pain Management - Follow Up (FT) [facility] note Future Appointments Appointment Date:11/09/2024 08:00:00 AM Scheduled Provider: Location:[facility] Appointment Type:Surgery FT Appointment Date:11/17/2024 10:45:00 AM Scheduled Provider:Margareth De La Cruz PA-C Location:[facility] [place] Appointment Type:Pain Management - Follow Up (FT) [facility] Evaluation noteNo InformationNortUpper [facility]hen[facility] Other Evaluation note* Diagnosis Mixed hearing loss, bilateral- Primary Other specified disorders of Eustachian tube, unspecified ear documented in this encounter [facility]* Diagnosis Mixed conductive and sensorineural hearing loss of right ear with restricted hearing of left ear- Primary Sensorineural hearing loss (SNHL) of right ear with unrestricted hearing of left ear ETD (Eustachian tube dysfunction), bilateral documented in this encounter [facility]* Diagnosis Mixed conductive and sensorineural hearing loss of right ear with restricted hearing of left ear- Primary ETD (Eustachian tube dysfunction), bilateral OME (otitis media with effusion), right documented in this encounter [facility]* Diagnosis Onset Date Resolution Status Admit Date Anemia acuteJuly 2024 1:26pmASHD (arteriosclerotic heart disease)acuteJuly 2024 1:26pmChronic bronchitis, mucopurulentacuteJuly 2024 1:26pmChronic kidney diseaseacuteJuly 2024 1:26pmGERD (gastroesophageal reflux disease) acuteJuly 2024 1:26pmHypercholesterolemiaacuteJuly 2024 1:26pm HypertensionacuteJuly 2024 1:26pmNSVT (nonsustained ventricular tachycardia)acuteJuly 2024 1:26pmOSA (obstructive sleep apnea)acuteJuly 2024 1:26pmPulmonary noduleacuteJuly 2024 1:26pmType 2 diabetes mellitus with diabetic polyneuropathyacuteJuly 2024 1:26pmType 2 diabetes mellitus with hyperglycemiaacuteJune 07, 2025 1:26pm [facility] Work Phone: Evaluation note* Diagnosis Onset Date Resolution Status Admit Date Anemia acuteOctober 2024 1:25pmASHD (arteriosclerotic heart disease)acuteOctober 2024 1:25pmChronic bronchitis, mucopurulentacuteOctober 2024 1:25pm Chronic kidney diseaseacuteOct2024 1:25pmDecreased diffusion capacity of lungacuteAugober 2024 1:25pmHypercholesterolemiaacuteOctober 2024 1:25pmHypertensionacuteOct2024 1:25pmIschemic cardiomyopathy acuteOct2024 1:25pmMedicare annual wellness visit, subsequentacute September 07, 2025 1:25pmNicotine dependence, cigarettes, in remissionacute September 07, 2025 1:25pmNSVT (nonsustained ventricular tachycardia)acuteOct2024 1:25pmOSA (obstructive sleep apnea)acuteOct2024 1:25pm Pulmonary noduleacuteOct2024 1:25pmType 2 diabetes mellitus with diabetic polyneuropathyacuteOct2024 1:25pmType 2 diabetes mellitus with hyperglycemiaacuteOct2024 1:25pm [facility] Work Phone: History general Narrative - Reported* [...] fusionSurgical HistoryTriple bypass Hospitalization Historysee sx history [facility] Other History general Narrative - Reported* Type [...] HistoryNeck fusionSurgical HistoryTriple bypassHospitalization Historysee sx history [facility] Other Hospital Discharge instructions No data available for this section [facility] CenterProgress note No data available for this section [facility] CenterReason for referral (narrative)No reason for referral information available[facility] [place] Work Phone: Summary Purpose Family History Relationship Condition Age at Onset Recorded Date/T rip mother Glaucoma Unknown OsteoporosisUnknownDementiaUnknownDeceasedUnknownfatherCoronary artery disease UnknownMalignant neoplasm of prostateUnknownbrotherSchizophreniaUnknown Myocardial infarctionUnknown Advance Directives Advance Directive Response Recorded Date/ Time Advance Directives No November 23, 2019 10:54am Chief Complaint and Reason for Visit Chief Complaint Admit Date 4 month f/u June 07, 2025 1:26 pm Reason for Visit Admit Date Anemia June 07, 2025 1:26 pm ASHD (arteriosclerotic heart disease) Ju ly 2024 1:26pm Chronic bronchitis, mucopurulent June 072024 [...] with hyperglyce radames June 07, 2025 1:26pm Chief Complaint Admit Date Amb Documentation August [...] with hyperglyce radames September 07, 2025 1:25pm Additional Source Comments (unrecognized sect ion and content) No Status Records FoundNo Status Records FoundNo Status Records FoundNo Status Records FoundNo Status Records FoundNo Status Records Found INFORMATION SOURCE (unrecogn ized section and content) DATE CREATED AUTHOR 07/24/2022 [facility] DATE CREATED AUTHOR HOLLIS ALLIE ATOPAL 03/11/2023 [facility] DATE CREATED AUTHOR AUTHOR'S ORGANIZ ATION 02/26/2025 [facility] DATE CREATED AUTHOR AUTHOR'S ORGANIZ ATION 04/07/2025 [facility] DATE CREATED AUTHOR AUTHOR'S ORGANIZ ATION 08/13/2025 [facility] DATE CREATED AUTHOR AUTHOR'S ORGANIZ ATION 09/01/2025 [facility] Patient Care team informatio n (unrecognized section and content) Team Status: Active Member Role Status Dates Cristobal Kearns DO Primary Care Provider Active Team Status: Active Member Role Status Dates Cristobal Kearns DO Primary Care Provider Active Start: March 19, 2025 Cristobal Kearns DOAttending ProviderActiveStart: March 19, 2025 Team Status: Active Member Role Status Dates Cristobal Kearns DO Primary Care Provider Active Start: May 11, 2025 Moi Moss MDAttnakul ProviderActiveStart: May 11, 2025 Team Status: Inactive Member Role Status Dates Cristobal Kearns DO Primary Care Provider Active Start: June 07, 2025 End: June 07sheri Kearns DOAttending ProviderActiveStart: June 07, 2025 End: June 07, 2025Team MemberRelationshipSpecialtyStart DateEnd Date Cristobal Kearns MD [address] [place] [phone] PCP - GeneralInternal Medicine11/23/24Team MemberRelationshipSpecialtyStart Date End Date Cristobal Kearns MD [address] [place] [phone] PCP - GeneralInternal Medicine11/23/24Team MemberRelationshipSpecialtyStart Date End Date Cristobal Kearns MD [address] [place] [phone] PCP - GeneralInternal Medicine11/23/24Team MemberRelationshipSpecialtyStart Date End Date Cristobal Kearns MD [address] [place] [phone] [facility] - [facility]/23/24 Team Status: Inactive Member Role Status Dates Cristobal Kearns , DO Primary Care Provide r, Attending Provider Active Start: November 12, 2024 End: November 12, 2024 Team Status: Active Member Role Status Dates Cristobal Kearns , DO Primary Care Provide r, Attending Provider Active Start: November 17, 2024 Team Status: Active Member Role Status Dates Cristobal Kearns , DO Primary Care Provide r, Attending Provider [...] Inactive Member Role Status Dates Cristobal Kearns , DO Primary Care Provide r, Attending Provider Active Start: February 10, 2025 End: February 10, 2025Team MemberRelationshipSpecialtyStart DateEnd Date Cristobal Kearns MD [address] [place] [phone] [facility]11/23/24Team MemberRelationshipSpecialtyStart Date End Date Cristobal Kearns MD [address] [place] [phone] PCP - [facility] Medicine11/23/24 Team Status: Active Member Role/Relationship Status Dates Cristobal Kearns DO Primary Care Provider Active Team Status: Active Member Role/Relationship Status Dates Cristobal Kearns DO Primary Care Provider Active Start: August 31, 2025 Pollo Edwards ProviderActiveStart: August 31, 2025 Team Status: Inactive Member Role/Relationship Status Dates Cristobal Kearns Primary Care Provider Active Start: September 07, 2025 End: September 07enjose carlos Kearns DOAttnakul ProviderActiveStart: September 07, 2025 End: September 07, 2025 REASON FOR VISIT (unrecogniz ed section and [...] BE BASED ON THE PRIMARY CLINICAL RECORDS. [employer] provides no warranty or guarantee of the accuracy or completeness of information in this document.
--- NOTE | 2025-09-16 13:00 | CT_ITS ---
The [address] [address] Patient Name: TRAE MONROE MRN: [id number] date: 1950 Sex: M Assigned Patient Location: CT Current Patient Location: Accession/Order Number: [id number] Exam Date: 09/16/2025 12:53 Report Date: 09/17/2025 09:25 At the request of: ARIAN KEARNS DO Procedure: CT chest wo con CT CHEST WITHOUT CONTRAST COMPARISON: 09/10/2024 CLINICAL DATA: Follow-up right middle lobe lung nodule Spiral axial unenhanced images were obtained through the chest. Images were reviewed using both narrow and wide window settings. This CT exam was performed using one or more following dose reduction techniques: Automated exposure control, adjustment of the mA and/or kV according to patient size, or use of iterative reconstruction technique. Patient is status post median sternotomy. The heart is normal size. No pericardial effusion is seen. There is coronary artery disease. There is slight dilatation of the ascending aorta measuring just over 4 cm in diameter. There is atherosclerotic plaque at the aortic arch, descending aorta and proximal great vessels. There are a few small nonpathologic mediastinal lymph nodes. Bilateral gynecomastia is seen. Degenerative changes are present at the spine. Minor atelectasis or scarring is present. No developing consolidation, pleural effusion or pneumothorax is seen. There is similar calcified and noncalcified nodularity, including the area at the right middle lobe described previously. No new nodules are seen. Limited imaging through the upper abdomen shows cholelithiasis. CT/CT chest wo con IMPRESSION: MINOR ATELECTASIS OR SCARRING. STABLE PULMONARY NODULARITY. INCIDENTAL CHOLELITHIASIS. Impression dictated by: Amy Johnson M.D. 09/17/2025 9:25 AM Dictation Location: [place] [address] Electronically authenticated by: [id number] Y Date: 09/17/2025 09:25
== END 2025-09-16 12:38 | disposition home or self-care (01) ==
PROVIDERS: PCP Internal Medicine; Visit Provider Internal Medicine
DX: R91.1 Solitary pulmonary nodule (principal)
CPT/HCPCS: 71250

== ENCOUNTER 2025-11-05 12:32 | Outpatient (OUT) | payer MEDICARE, SELFPAY ==
--- OUTSIDE RECORDS SUMMARY | 2025-06-10 09:40 | XMS_ITS ---
Author Organization [facility] Address [address] [place] [address] Care Team Providers Care Gymnasium Teacher Name Role Phone ARIAN KEARNS DO Primary Care Provider Abhi Denise Unavailable [phone] REASON FOR VISIT RT FOOT/ANKLE OA Encounters Encounter Location Date Provider Diagnosis [place] [facility] [address] [place] [address] 06/10/2025 Abhi Melchor Plan Of Treatment No Information Progress Notes * TRAE MONROE EDOB:1950 (75 yo M)Acc No.[id number]:06/10/2025 Patient:?TRAE MONROE :?Abhi Melchor DPMDOB:1950???Age:75 Y ???Sex:MaleDate:06/10/2025Phone:[phone]:[address] [place] [id number]:ARIAN KEARNS DO Subjective: * Chief Complaints: * 1 . RT FOOT/ANKLE OA. * Medical History: Objective: * Vitals: Assessment: Plan: * Treatment: Forms: * Images: * Electronic signature of Abhi Melchor DPM on 11/05/2025 at 12:37 PM ESTSign off status: Pending * Provider: Shimon Melchor DPM Date: 06/10/2025 Generated for Printing/Faxing/eTransmitting on:?11/05/2025 12:37 PM EST
--- OUTSIDE RECORDS SUMMARY | 2025-11-05 05:32 | XMS_ITS | Continuity of Care Document ---
Author Organization [facility] Address [address] [place] [address] Phone Care Team Providers Care Senior Clinical Data Manager Name Role Phone Cristobal Michel DO Primary Care Provider Yuliet Guerrier CMA Attending Provider Unavaila Cristobal Champion DO Attending Provider Care Teams Patient Care Team Team Status: Active Member Role/Relationship Status Dates Cristobal Michel DO Primary Care Provider Active Visit Care Team Team Status: Active Member Role/Relationship Status Dates Cristobal Michel DO Primary Care Provider Active Start: August 31, 2025 Yuliet Guerrier CMAAttnakul ProviderActiveStart: August 31, 2025 Visit Care Team Team Status: Inactive Member Role/Relationship Status Dates Cristobal Michel DO Primary Care Provider Active Start: September 07, 2025 End: September 07sheri Michel DOAttnakul ProviderActiveStart: September 07, 2025 End: September 07, 2025 Patient Care Team Team Status: Inactive Member Role/Relationship Status Dates Cristobal Michel DO Primary Care Provider Active Start: November 05, 2025 End: November 05Gerardo Riojas ProviderActiveStart: November 05, 2025 End: November 05, 2025 Chief Complaint and Reason for Visit Chief Complaint Admit Date Amb Documentation August 31, 2025 8 :21am Wellness/Hosp f/u September 07, 2025 1 :25pm right knee pain November 05, 2025 9:44am Reason for Visit Admit Date Anemia September [...] with hyperglyce radames September 07, 2025 1:25pm Internal derangement of right knee Decem vilma 2024 9:44am Primary osteoarthritis of right knee Dec ember 2024 9:44am Right knee pain November 05, 2025 9:44am Allergies, Adverse Reactions, Alerts Allergen Type Severity Reaction Last Updated Verified Status Nzwmljv-DAL-OpS Reductase Inhibitor Allergy Unknown Unknown Reaction November 05, 2025 9:46am Yes Active Social History Smoking Status Status Start Date End Date Date of Observa tion Ex-smoker (finding) December 09, 2019 1:55pm Observation Status Observation Response Date of Response Legal Sex Male (finding) Sex Assigned At BirthMaleApril 1949 Family History Relationship Condition Age at Onset Recorded Date/T rip mother Glaucoma Unknown OsteoporosisUnknownDementiaUnknownDeceasedUnknownfatherCoronary artery disease UnknownMalignant neoplasm of prostateUnknownDeceasedUnknownbrotherSchizophrenia UnknownMyocardial infarctionUnknown Problems Active Problems Problem Diagnosis/Recorded Date Onset Date Status C omments Medicare annual wellness vis it, subsequent July 27, 2024 6:27am Unknown Active TALA (obstructive sleep apnea)February 09, 2024 7:05amUnknownActivePrimary osteoarthritis of right kneeMarch 2023 4:49pmUnknownActiveInternal derangement of right kneeDecember 2024 10:16amUnknownActiveType 2 diabetes mellitus with hyperglycemiaMarch 2023 7:08amUnknownActiveNicotine dependence, cigarettes, in remissionMarch 2023 4:49pmUnknownActiveType 2 diabetes mellitus with diabetic polyneuropathyMarch 2023 7:05amUnknown ActiveChronic bronchitis, mucopurulentMarch 2023 4:49pmUnknownActivePFT: mild to mod restrictive defect - 07/2022,Normal right heart pressures - 03/2025 AnemiaDecember 2023 4:33pmUnknownActiveHypercholesterolemiaDecember 2023 4:30pmUnknownActiveIschemic cardiomyopathySeptember 2024 11:41am UnknownActiveCABG - 2014, Echo: LVEF 65%, normal RV size/function, RVSP 31 - 08/2024,Stress test: LVEF 51%, fixed inferolateral and anterior wall, reversible defect - 08/2024,LHC: 80% mid LAD, occluded RCA w/ patent grafts - 03/2025, Carotid bruitFebruary 2023 10:52pmUnknownActiveCarotid US: < 50% B/L - hronic kidney diseaseSeptember 2023 3:14pmUnknownActivePulmonary noduleApril 2023 4:13pmUnknownActiveCT: 7mm RML - 02/2023, 7mm RML - 08/2024, stable enign prostatic hyperplasia with lower urinary tract symptomsMarch 2023 4:49pmUnknownActiveDecreased diffusion capacity of lung June 07, 2025 8:32pmUnknownActiveRight knee painDecember 2024 10:16am UnknownActiveGERD (gastroesophageal reflux disease)February 09, 2024 7:04am UnknownActiveHypertensionMarch 2023 7:09amUnknownActiveLumbar spondylosis February 10, 2024 4:49pmUnknownActiveASHD (arteriosclerotic heart disease)February 09, 2024 7:03amUnknownActiveCABG - 2014, Echo: LVEF 65%, normal RV size/function, RVSP 08/2024,Stress test: LVEF 51%, fixed inferolateral and anterior wall, reversible defect - 08/2024Lumbar stenosis with neurogenic claudicationJanuary 2019 7:58amUnknownActiveNSVT (nonsustained ventricular tachycardia)December 30, 2024 12:31pmUnknownActiveHolter: 9 beat VT - 08/2024,Holter: 5 beat VT - 12/2024Inactive/Resolved Problems Problem Diagnosis/Recorded Date Onset Date Status C omments S/P cardiac catheterization March 26, 2025 12:17pm 2024 Resolved LHC: 80% m id LAD, occluded RCA w/ patent grafts - 03/2025 Medications Medication Status Dose Units Route Directions Qty Days Refills S tart Date Stop Date End Date Reason(s) Instructions Adherence Lisinopril 10 mg tablet Discontinued 0 .ROUTE.IGFNYAO262Nbyuj 2023 12:24pmMay 2024 8:17amTAKE 1 TABLET DAILY Ranolazine 500 mg tablet extended release 12 hrDiscontinued0.ROUTE.PBGEBLD7359 March 09, 2024 12:24pmApril 2024 12:28pmTAKE 1 TABLET TWICE A DAYFlash Glucose Sensor (Freestyle Singh 14 Day Sensor) kitDiscontinued0.ROUTE.VLSXUBD956 March 30, 2024 12:15pmJanuary 2024 5:43pmUSE TO TEST BLOOD SUGAR DAILY Insulin Nph And Regular Human (Novolin 70-30 Flexpen U-100) 100 unit/mL (70-30) insulin ngiHzmtidslifui91GGWCVKXZBANlgcn ragql51900Xiqq 2023 11:00pmJuly 2023 11:49amInsulin Nph And Regular Human (Novolin 70-30 Flexpen U-100) 100 unit/mL (70-30) insulin jrzIbgguzvlwgsh00JGQYXUMMTGDwwaj njyti052212Khkn 2023 11:48amJune 2024 12:01pmPen Needle, Diabetic (Bd Ultra-Fine Short Pen Needle) 31 gauge x 5/16 needleDiscontinued0.Imjih4620Iddy 2023 11:00pmJune 2024 1:57pmto inject insulin dailyInsulin Nph And Regular Human (Humulin 70/30 U-100 Kwikpen) 100 unit/mL (70-30) insulin ffzZxbekxopfxqj12QPOSYNTHCR Twice mlihq007684Hfth 2023 11:00pmSeptember 2023 2:39pmAzithromycin 250 mg ajtimiRbgkkfrqagsr164CGBG.IEGFBXX880Ufxdcfc 2024 12:00amMarch 2024 12:29pm2 tabs on first day followed by 1 tab on days 7-1Tcbnb-Maecwxa Sensor (Freestyle Singh 2 Plus Sensor) deviceDiscontinued0.Dkbql171Oyolxqk 2024 12:00amOctober 2024 9:04pmType 2 diabetes mellitus with hyperglycemia Type 2 diabetes mellitus with hyperglycemia buttermaker (current) use of insulinto test blood sugar dailyMetoprolol Succinate 25 mg tablet extended release 24 jnOxupql38.2XNLTDoxgs08718Baneqocy 2024 12:00amComplies with drug therapyRanolazine 500 mg tablet extended release 12 hr Active0.ROUTE.QYQYCFK6341Fgowb 2024 12:28pmTAKE 1 TABLET TWICE A DAY Complies with drug therapyLisinopril 10 mg tabletDiscontinued0.ROUTE.DZNWUNU184 March 19, 2025 8:17amJuly 2024 1:43pmTAKE 1 TABLET DAILYInsulin Nph And Regular Human (Novolin 70-30 Flexpen U-100) 100 unit/mL (70-30) insulin pen Mlufkfacxzyf34GGOEDARHUSMzlrg albdw992704Azqg 2024 11:59amJuly 2024 1:05pmPen Needle, Diabetic 31 gauge x 5/16 needleActive0.ROUTE.GGBQJLA41956Lgup 2024 1:56pmType 2 diabetes mellitus with hyperglycemia Type 2 diabetes mellitus with hyperglycemia buttermaker (current) use of insulinUse to inject insulin bid Faefwsosjx-Kzghfyqy-Yafswjelep (Breztri Aerosphere) 160-9-4.8 mcg/actuation HFA aerosol klmudgqIujhxw0IKDMMASQDKIOJVpotw daily10.7305August 2024 11:00pm Complies with drug therapyInsulin Nph And Regular Human 100 unit/mL (70-30) ogsupnkmwjAhxcylvkvufs40 - 60UNITSUBCUTTwice dailyJanuary 2019 12:00am February 10, 2024 5:03pmdiabetesBaclofen 10 mg JqvtmlStqoehdmzijx11VPFCInbqi daily as needed for Muscle SpasmNovuary 2019 12:00amJanuary 2019 8:03amRosuvastatin 5 mg qlufroEdmmdrjojjae1XSKTSjezy at bedtimeJanuary 2019 12:00[facility]2023 5:00pmhyperlipidemiaAmlodipine 10 mg tablet Seqlcwyefybt09LGKJUaisw morningNovuary 2019 12:00[facility] 2023 4:57pm htnLisinopril 40 mg wykcspGakaexbxxaje74AZMNRitqz at bedtimeJanuary 2019 12:00[facility]2023 4:59pmhtnEzetimibe 10 mg qkatitGrvmclmtlnld45TYNQUnvag at bedtimeJanuary 2019 12:00[facility] 2023 4:59pmhyperlipidemia Ranolazine 500 mg tablet extended release 12 ojRnvanuweqqrr204OROLMjpzc daily November 30, 2019 12:00amApril 2023 12:24pmanginaMultivitamin Tablet Xxjrdebezxdc7QRYDKSgxcjTfdiidp 2019 12:00amSeptember 2023 2:39pm Aspirin (Hawk Low Dose Aspirin) 81 mg Tablet,Delayed Release (Dr/Ec)Otodvf10UL PODaily at bedtimeJanuary 2019 12:00amheartComplies with drug therapy Acetaminophen (Tylenol Extra Strength) 500 mg YbivvhEppzvr8793OUXWSzvui daily as needed for PainNovuary 2019 12:00amComplies with drug therapyAscorbic Acid (Vitamin C) (Vitamin C) 500 mg FhsqqsBfqyzhgjuibz734DVBDMmtfiKpzfkdo 2019 12:00[facility] 2024 12:31pmCalcium Carbonate-Vitamin D3 (Calcium 600 + D(3)) 600 mg calcium- 200 unit UzowbduOujkxs1JYOMWVxcmiTqpzrzr 2019 12:00am supplementComplies with drug therapyCyclobenzaprine 10 mg jcoijgNyljcwbfuple80NK POThree times daily as needed for back dxlvza807Zlhxqws 2019 12:00amMarch 2023 4:58pmSulfamethoxazole-Trimethoprim (Bactrim Ds) 800-160 mg Tablet Pylyevtlknid1FDZOKH92D30108Hjxrbaf 2019 12:00amMarch 2023 5:00pm Prednisone 10 mg tablets,dose gtqvFxzzwmtgtvxq6ghoo pkPOper package hsvrndolgt12 0Novuary 2019 12:00amMarch 2023 5:00pmtake 4 tabs for 3 days then take 3 tabs for 3 days then take 2 tabs for 3 days then take 1 tab for 3 daysOxycodone 5 mg capsuleDiscontinued5 - 99XBTVO2A as needed for xzun1476Tzyzqoq 2019March 2023 5:00pmSpinal stenosis of lumbar region with neurogenic claudication Spinal stenosis, lumbar region with neurogenic claudicationInsulin Nph And Regular Human 100 unit/mL (70-30) qclerqwzgrHqtzcylilbmd57PCUHDYYRMNZzxmp daily February 10, 2024 4:59pmJuly 2023 11:47amdiabetesPregabalin (Lyrica) 25 mg nwdrexyZygjeooniygk67UAHSJqide daily as neededSept2023 11:00pm November 12, 2024 4:15qg6-6 tabletsAlfuzosin 10 mg tablet extended release 24 tgHmxbii75QIKHQppbFblhofgl 2023 12:00amComplies with drug therapy Levofloxacin 750 mg kswbcuGbgicfvhhomb760PYSOFkniu215Hcldypvk 2023 12:00am November 20, 2024 1:23pmLisinopril 5 mg isbjonKrsrap7RHYTNkeok160Mpbw 2024 1:43pmComplies with drug therapyInsulin Nph And Regular Human (Novolin 70-30 Flexpen U-100) 100 unit/mL (70-30) insulin tfvThghif7DAJIUBXbwmc qbldl237996Kptd 2024 1:03pmsubcutaneously twice daily; 40 units q am and 20 units q pm Complies with drug therapyBlood-Glucose Sensor (Freestyle Singh 3 Plus Sensor) deviceActive0.ROUTE.AMQCQQMRS139Xuutdlt 2024 11:00pmType 2 diabetes mellitus with hyperglycemia Type 2 diabetes mellitus with hyperglycemia long-term (current) use of insulinUse to test home BS 4-6x dailyAmlodipine 5 mg slgmmrGkppgfvgmhnq4LUGHSsdkjLbvot 2023 11:00pmMarch 2023 9:26am Lisinopril 10 mg gynhjxTnhkmddtmrxg84KMSIEqnpdBibdg 2023 11:00pmApril 2023 12:24pmAlpha Lipoic Acid 200 mg tmiidmhFvpnrf637ZLLKRkmxo dailyProm[facility] 2023 11:00pmComplies with drug therapyTestosterone (Androgel) 20.25 mg/1.25 gram (1.62 %) gel in metered-dose vzwtLhxlot3KZCJNSMLWQVBDJPgaoiQuhej 2023 11:00pmskin in the morning to shoulder, upper arms or abdomenComplies with drug therapyTadalafil 5 mg oodhntEyimkh1WEXFDtgad as neededMar 2023 11:00pmComplies with drug therapyLoratadine 10 mg xzlantCtcggj54UBIVYdkinFouor 2023 11:00pmComplies with drug therapyEzetimibe 10 mg vvyagdQdvybz56OYWU DailyPromedica [facility] 2023 11:00pmComplies with drug therapyEvolocumab (Repatha Syringe) 140 mg/mL mfqvpouAuqiun928ETPSBIKHooskd monthMar 2023 11:00pm Complies with drug therapyAmlodipine 5 mg ogoihgMblsxpaygnre76MJKNLlhlnFixdp 2023 9:26amSeptember 2023 2:27pmGabapentin 300 mg capsule Wqtkytrdioik903LLHCFkjor at bedtimePromedica [facility] 2023 11:00pmSeptember 2023 2:38pmAmlodipine 5 mg tzjrzrCcnffa2DSEZBmkchJicklvdez 2023 2:27pmComplies with drug therapyFlash Glucose Sensor (Freestyle Singh 14 Day Sensor) kit Discontinued0.RouteMay 2023 11:00pmMay 2023 12:15pmAs directed Mecobalamin (Vitamin B12) 1,000 mcg tablet,rmzvghyhAmmmro2368EXHJGZljczIrnvo 2024 11:00pmComplies with drug therapy Immunizations Immunization Event Date Not Given Reason Dose Number Nursing Informatics Clinical Analyst Lot Number Reason(s) Given Vaccine Information Statement (VIS) Detail Administration Location COVID-19 mRNA, Comirnaty (Shareaholic) December 20, 2020 COVID-19 mRNA, Comirnaty (Shareaholic)January 10OVID- mRNA, Comirnaty (Shareaholic)August 11, 2021influenza, unspecified formulationDecember 2014 influenza, unspecified formulationNovember , 2015influenza, unspecified formulationSeptember , 2016influenza, unspecified formulationDecorewell [facility]er 2017influenza, unspecified formulationOctober , 2018influenza, unspecified formulationSeptember , 2019influenza, unspecified formulationOctober 2020influenza, unspecified formulationOctober , neumococcal Conjugate Vaccine, 13 valentNov2014Pneumococcal Polysacc. Vaccine, 23 valent November 07, 2012Shingles (Zoster)August 12, 2020 Procedures Procedure Date Performed Status CT chest wo con September 07, 2025 1:06pm comple priscilla Relevant Diagnostic Tests and/or Laboratory Data Laboratory Results Test Collection Date/Time Result Date/Time Result Interpretation Reference Range Result Comment Performing Site Urine Random Creatinine September 07 1:33pm September 07, 2025 1:33pm 104.56 mg/dL 20.00-300.00Vitamin B12 LevelOct2024 1:44pmOct2024 1:44pm >2000 pg/mLAbnormal (applies to non-numeric results)[id number] at: [facility] [id number] Director: Derrick Smith PhD, Phone: [phone] 21st, 2025 1:44pmOct2024 1:44pm15.30 ng/mL8.60-58.90FerritinSeptember 07, 2025 1:44pmOct2024 1:42or444.0 ng/mL26.0-388.0Cholesterol/HDL RatioOct2024 1:44pm September 07, 2025 1:44pm3.03.3 - 4.4 LOW RISK4.4 - 7.1 AVERAGE RISK7.1 - 11.0 MODERATE RISK>11.0 HIGH RISKAnion GapSeptember 07, 2025 1:44pmOct2024 1:44pm16.1Estimated Average GlucoseSeptember 07, 2025 1:44pmOct2024 1:70fk620 mg/dLBasophils # (Auto)September 07, 2025 1:44pmOct2024 1:44pm0.1 10 3/uL0.0-0.1Urine Random MicroalbuminSeptember 07, 2025 1:33pm September 07, 2025 1:33pm5.1 mg/dL<=30.0Cholesterol LevelOct2024 1:44pmOct2024 1:98jw833 mg/dL<=200Albumin/Globulin RatioSeptember 07, 2025 1:44pmOct2024 1:44pm1.1Hemoglobin C0iEvhehkgSeptember 07, 2025 1:44pm September 07, 2025 1:44pm7.0 %Above high normal4.5-6.2ADA RECOMMENDED LIMIT 4.0 - 6.0ADA THERAPEUTIC TARGET < 7.0ACTION SUGGESTED> 7.0Basophils (%) (Auto) September 07, 2025 1:44pmOct2024 1:44pm1.3 %0.2-2.0Urine Microalbumin/Creatinine RatioSeptember 07, 2025 1:33pmSeptember 07, 2025 1:33pm 48.7 mg/gAbove high normal0.0-29.9NO MICROALBUMINURIA 0-29 MG/GCLINICAL MICROALBUMINURIA 30-300 MG/GMACROALBUMINURIA >300 MG/GHDL CholesterolSeptember 07, 2025 1:44pmOct2024 1:44pm41 mg/dL40-60> or =60 mg/dl - LOW CARDIOVASCULAR RISK<40 mg/dl - HIGH CARDIOVASCULAR RISKAlbuminSeptember 07, 2025 1:44pmOct2024 1:44pm4.0 g/dL3.4-5.0Eosinophils # (Auto)September 07, 2025 1:44pmSeptember 07, 2025 1:44pm0.6 10 3/uL0.0-0.7LDL Cholesterol, CalculatedSeptember 07, 2025 1:44pmOct2024 1:44pm51.0 mg/dL<100 mg/dl XYESCYV156-408 mg/dl NEAR OR ABOVE EADPXZR959-137 mg/dl BORDERLINE QZNH010-137 mg/dl HIGH>190 mg/dl VERY HIGHAlkaline PhosphataseSeptember 07, 2025 1:44pm September 07, 2025 1:44pm73 U/V51-649Owhzkwndkch (%) (Auto)September 07, 2025 1:44pmSeptember 07, 2025 1:44pm6.8 %0.9-7.0Triglycerides LevelSeptember 07, 2025 1:44pmSeptember 07, 2025 1:15li472 mg/dLAbove high normal<=150Alanine Aminotransferase (ALT/SGPT)September 07, 2025 1:44pmSeptember 07, 2025 1:44pm25 U/A97-30HweqoylctyEjnaxra 21st, 2025 1:44pmSeptember 07, 2025 1:44pm37.1 %Below low .0-54.0VLDL CholesterolSeptember 07, 2025 1:44pmSeptember 07, 2025 1:44pm33.4 mg/dLAspartate Amino Transf (AST/SGOT)September 07, 2025 1:44pm September 07, 2025 1:44pm17 U/L63-92IckobrxqtuIgbydld 21st, 2025 1:44pmSeptember 07, 2025 1:44pm12.4 g/dLBelow low edjlvz82.0-18.0BUN/Creatinine RatioSeptember 07, 2025 1:44pmSeptember 07, 2025 1:44pm21.7Immature Granulocyte # (Auto) September 07, 2025 1:44pmSeptember 07, 2025 1:44pm0.03 10 3/uL0.00-0.03Blood Urea NitrogenOct2024 1:44pmOct2024 1:44pm34.0 mg/dLAbove high normal7.0-18.0Immature Granulocyte % (Auto)September 07, 2025 1:44pmOct2024 1:44pm0.4 %0.0-0.5Calcium LevelOct2024 1:44pmOct2024 1:44pm8.9 mg/dL8.5-10.1Lymphocytes # (Auto)September 07, 2025 1:44pmOct2024 1:44pm1.8 10 3/uL1.2-3.8Chloride LevelOct2024 1:44pm September 07, 2025 1:45ah114 mmol/D31-590Skijsabumoi (%) (Auto)September 07, 2025 1:44pmOct2024 1:44pm21.6 %20.5-60.0Carbon Dioxide LevelOct2024 1:44pmOct2024 1:44pm25.8 mmol/L21.0-32.0Mean Corpuscular HemoglobinSeptember 07, 2025 1:44pmOct2024 1:44pm31.0 pg25.9-34.0 CreatinineOct2024 1:44pmOct2024 1:44pm1.57 mg/dLAbove high normal0.70-1.30Mean Corpuscular Hemoglobin ConcentOct2024 1:44pm September 07, 2025 1:44pm33.4 g/dL29.9-35.2Estimated GFR () September 07, 2025 1:44pmSeptember 07, 2025 1:71ic57Vkcyf low normal>=60 mL/min/1.73m 2Mean Corpuscular VolumeSeptember 07, 2025 1:44pmOct2024 1:44pm92.8 fL80.0-94.0Estimated GFR (Non- AmericanOct2024 1:44pmOct2024 1:81ms84Pulsw low normal>=60 mL/min/1.73m 2Monocytes # (Auto)September 07, 2025 1:44pmOctober 2024 1:44pm0.8 10 3/uL0.3-0.8 GlobulinOctober 2024 1:44pmOctober 2024 1:44pm3.5 g/dLMonocytes (%) (Auto)September 07, 2025 1:44pmOctober 2024 1:44pm9.1 %1.7-12.0Glucose LevelOct2024 1:44pmOctober 2024 1:44pm88 mg/dU80-566Aoki Platelet VolumeOct2024 1:44pmOctober 2024 1:44pm11.2 fL9.5-13.5 Potassium LevelOctober 2024 1:44pmOctober 2024 1:44pm4.9 mmol/L 3.5-5.1Neutrophils # (Auto)September 07, 2025 1:44pmOctober 2024 1:44pm5.0 10 3/uL1.4-6.5Sodium LevelOct2024 1:44pmOctober 2024 1:99li204 mmol/E346-444Npzspxqslnw (%) (Auto)September 07, 2025 1:44pmOctober 2024 1:44pm60.8 %43.0-75.0Total BilirubinOct2024 1:44pmOctober 2024 1:44pm0.4 mg/dL0.2-1.0Platelet CountOct2024 1:44pmOctober 2024 1:62sg255 10 3/lX357-166Zjzim ProteinOct2024 1:44pmOctober 2024 1:44pm7.5 g/dL6.4-8.2Red Blood CountOct2024 1:44pmOct2024 1:44pm4.00 10 6/uLBelow low normal4.70-6.10Red Cell Distribution WidthSeptember 07, 2025 1:44pmOct2024 1:44pm13.2 %11.0-15.0Corrected White Blood CountOct2024 1:44pmOctrockcastle regional hospital 2024 1:44pm8.2 10 3/uL4.0-11.0 Vital Signs Vital Reading Result Reference Range Collection Date/Time Height 72 [in_i] September 07, 2025 12:34jfGgnuby642.46 kgOctrockcastle regional hospital 2024 12:33pmHeart Rate62 /snj92-296Fusnsyq 2024 12:33pmRespiratory rate12 /rhc96-82Mzxyjlq 2024 12:33pmBP Omsxrxma926 mm[Hg]100-140Octrockcastle regional hospital 2024 12:33pmBP Trsfxovov11 mm[Hg]60-100Octrockcastle regional hospital 2024 12:33pmBMI (Body Mass Index)31.5 kg/l2Tydttcu 2024 12:61nhAuphzo86 [in_i]November 05, 2025 9:25mqQwxigi305.59 kg November 05, 2025 9:46amHeart Rate56 /okq95-064Tsvflpvn 2024 9:46am Respiratory rate14 /odn94-63Khbhakly 2024 9:46amBP Ugqbqsez641 mm[Hg] 100-140Deceer 2024 9:46amBP Hxzaoyijx36 mm[Hg]60-100Deceer 2024 9:46amBMI (Body Mass Index)31.8 kg/w7Ggsibojs 2024 9:46am Advance Directives Advance Directive Response Recorded Date/ Time Advance Directives No November 23, 2019 9:54am Insurance Providers Guarantor Max Pineda Address [address] [address]Zppyctf Info.Home Phone: Coverage Status Update:2024 Payer Group Member ID Coverage Type Subscriber Relationship to Subscriber Effective Date Expiration Date MMO Id: [id number] E Claus Id: 1947 [address] [address] Home Phone: Email: [email or web address] [id number] E Claus Id: [id number] [address] [address] Home Phone: Email: [email or web address] [facility] [id number] E Claus Id: [id number] [address] [id number] Home Phone: Email: [email or web address] [email or web address] E Edwin Id: [id number] [address] [id number] Home Phone: Email: [email or web address] Encounters Encounter Location(s) Arrival/Admit Date Discharge/Departure Date Discharge/Departure Disposition Provider(s) Non-patient / Non-visit -[facility] Octob er 2024 8:21am Yuliet Guerrier CMADeparted Physician/Provider [facility] 2024 1:25pmOctober 2024 2:15pmDischarged to home care or self care (routine discharge)XU Lopezeparted Physician/Provider Office [facility] 20[facility] 10:32amDischarged to home care or self care (routine discharge)Cristobal Michel , DO Recent Diagnosis Onset Date Admit Date [...] 1:25pm TALA (obstructive sleep apnea) Unknown Oc tob2024 1:25pm Pulmonary nodule Unknown September 07 1:25pm Type 2 diabetes mellitus wit h diabetic polyneuropathy Unknown September 07, 2025 1:25pm Type 2 diabetes mellitus with hyperglycemia Unkn September 07, 2025 1:25pm Internal derangement of right knee Unknown November 05, 2025 9:44am Primary osteoarthritis of right knee Unknown November 05, 2025 9:44am Right knee pain Unknown November 05 025 9:44am Assessments Diagnosis Onset Date Resolution Status Admit Date Anemia acuteOctober 2024 1:25pmASHD (arteriosclerotic heart disease)acuteOctober 2024 1:25pmChronic bronchitis, mucopurulentacuteOctober 2024 1:25pm Chronic kidney diseaseacuteOctober 2024 1:25pmDecreased diffusion capacity of lungacuteSeptember 07, 2025 1:25pmHypercholesterolemiaacuteOctober 2024 1:25pmHypertensionacuteOctober 2024 1:25pmIschemic cardiomyopathy acuteOctober 2024 1:25pmMedicare annual wellness visit, subsequentacute September 07, 2025 1:25pmNicotine dependence, cigarettes, in remissionacute September 07, 2025 1:25pmNSVT (nonsustained ventricular tachycardia)acuteOctober 2024 1:25pmOSA (obstructive sleep apnea)acuteOctober 2024 1:25pm Pulmonary noduleacuteOct2024 1:25pmType 2 diabetes mellitus with diabetic polyneuropathyacuteOctober 2024 1:25pmType 2 diabetes mellitus with hyperglycemiaacuteOctober 2024 1:25pmInternal derangement of right kneeacuteDecember 2024 9:44amPrimary osteoarthritis of right kneeacute November 05, 2025 9:44amRight knee painacuteDecember 2024 9:44am Plan of Treatment Author Cristobal Michel [facility] HospitalAuthoredOctober 2024 12:33pmThis patient is stable without activity related chest [...] dose adjust to prevent night time and publication director hypoglycemia - 40u am / 20u pm [...] use, the patient reduces the risk for GA, CVA, HTN, cardiac dysrhythmias and sudden cardiac [...] vaccines for their age and risk factors. Author Cristobal Michel [facility] 2024 10:28amAcute on chronic knee pain. Instructed to continue ice, Tylenol and topical crms. Instructed to continue w/ home ROM/exercise program Instructed to finish PT sessions Recommend XR to r/o fx or bone lesion Recommend MRI to r/o fx, bone lesion, meniscal tear, ligamentous injury or tumor Refer to Orthopedic surgery for further evaluation and treatment Rest, ice and Tylenol. XR and referral discussed Instructed to avoid squatting or kneeling. Continue ice, Tylenol and crms. Instructed on quad exercises and avoidance of squatting or kneeling Contributing to pain but meniscal and/or ligamentous injury suspected Future Tests Future scheduled test information is unavailable Pending Tests Test Name Ordered Date Scheduled Date Comprehensive Metabolic Panel September 07, 2025 1:01pm XR knee RT 4V*November 05, 2025 10:14am Future Visits Future appointment information is unavailable Future Procedures Procedure Name Ordered Date Scheduled Date Vitamin B12 September 07, 2025 1:01pm Basic Metabolic PanelOct2024 12:52pmFerritinOctober 2024 1:01pm FolateOctober 2024 1:01pm Future Medications Future medication information is unavailable Patient Instructions Patient instructions are unavailable
--- OUTSIDE RECORDS SUMMARY | 2025-11-05 12:38 | XMS_ITS | Patient Health Record ---
Author Organization 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 No Aybofs4QyixhsbrcidivcGuujrvlv Problems Problem Type SNOMED Code ICD Code Onset Dates Problem Status W/U Status Risk Notes Problem Arthritis of right a nkle (3675259934920659) Arthritis of right ankle (M19.071) ActiveconfirmedProblemPolyneuropathy due to type 2 diabetes mellitus (763049126) Diabetic polyneuropathy associated with type 2 diabetes mellitus (E11.42)Active confirmedProblemMetatarsalgia of right foot (822598749778203)Metatarsalgia, right foot (M77.41)ActiveconfirmedProblemPain in limb (38223287)Foot pain, right (M79.671)Activeconfirmed Vital Signs Height 6'0 in 03/01/2025 Qzlsrj560 lbs03/01/2025BMI31.8703/01/2025 Encounters Encounter Location Date Provider Diagnosis [facility] [address] [place] [address] 03/01/20[place] pain, right M79.671 ; Arthritis of right ankle M19.071 and Metatarsalgia, right foot M77.41 [facility] Office [address] [place] [address] [address] [place] [address] 03/11/2025 Abhi Melchor Diabetic polyneuropathy associated with [...] INSERTS 2024 SCC- ANKLE 3 VIEW RIGHT [id number] 03/01/2025 SCC- FOOT 3 VIEW RIGHT [id number] 03/01/2025 Insurance Providers Payer Name Payer Address Payer Phone Subscriber Number Group Number Insured Name Patient Relationship to Insured Coverage Start Date Coverage End Date Medicare A[employer] [address] [place] [address] [id number] Marvin MONROE - patient is the [id number] 2025 Medical (General) History Medical History History [...]
--- OUTSIDE RECORDS SUMMARY | 2025-11-05 12:38 | XMS_ITS | Clinical Summary ---
Author Organization [facility] Address [address] [place] [address] Care Team Providers Care Regulator Tester Name Role Phone Cristobal Michel DO Primary Care Provider [phone] Fredis Ariza MD Unavailable [phone] Aleida Wayne Unavailable Unavailable Moises Aguirre CNP Unavailable [phone] Allergies Active AllergyReactionsCriticalityNoted DateCommentsHydralazinePalpitationsLow 07/25/2022 Other reaction(s): chest pain RyhmtipbrfUrvutgme18/10/6859Cwgawjx-Yje-Pnm Reductase WtlhplnmvnVvkzo83/19/2014 Medications MedicationSigDispense QuantityRefillsLast FilledStart DateEnd DateStatus aspirin [...] 24 hr tablet Indications:Coronary artery disease involving [place] coronary artery of [place] heart without angina pectoris,Nonsustained ventricular tachycardia (CMS/HCC)Take 0.5 tablets (12.5 mg) by mouth in the morning. Do not crush or chew. 45 tablet ctive dutasteride (Avodart) 0.5 mg capsule Indications:Benign prostatic hyperplasia with weak urinary streamTAKE 1 CAPSULE (0.5 MG) BY MOUTH IN THE MORNING. 90 capsule tive fluticasone (Flonase) 50 mcg/actuation nasal spray Administer 2 sprays into each nostril in the morning. Shake gently. Before first use, prime pump. After use, clean tip and replace cap.Active sildenafil (Viagra) 100 mg tablet Indications:erectile dysfunctionTake 1 tablet (100 mg) by mouth if needed for erectile dysfunction. 10 tablet tive evolocumab (Repatha Syringe) 140 mg/mL syringe Indications:Mixed hyperlipidemiaInject 1 mL under the skin every 14 (fourteen) days. 6 mL ctive alpha lipoic acid 200 mg capsule 200 Units in the morning and at bedtime.02/10/2024ctive NovoLIN 70-30 FlexPen U-100 100 unit/mL (70-30) injection pen 40 units am, 30 units pm02/14/2025tive cyanocobalamin (Vitamin B-12) 1,000 mcg tablet Take 5,000 mcg by mouth in the morning.Active sj-fjv-GU-vit H-nzfdyz-tvldexd (PreserVision AREDS 2 Plus MV) 200 mcg-15 mcg- 5 mg-1 mg capsule Take by mouth.Active amLODIPine (Norvasc) 2.5 mg tablet Indications:Primary hypertensionTake 1 tablet (2.5 mg) by mouth in the morning. Take in addition to the 5 mg tablet for a total of 7.5 mg daily. 90 tablet 6Active ezetimibe (Zetia) 10 mg tablet Indications:Hyperlipidemia, unspecified hyperlipidemia typeTAKE 1 TABLET EVERY MORNING 90 tablet 5Active lisinopril 5 mg tablet Indications:Primary hypertensionTAKE 1 TABLET BY MOUTH EVERY DAY IN THE MORNING 90 tablet 5Active Myrbetriq 50 mg tablet extended release 24 [...] EVERY DAY IN THE MORNING 30 tablet 5Active testosterone 20.25 mg/1.25 gram (1.62 %) gel in metered-dose pump gel Indications:Hypogonadism in maleAPPLY 2 PUMPS TO SKIN OF SHOULDER AND/OR UPPER CHEST ONCE EVERY MORNING DIRECTED 75 g 5Active testosterone 20.25 mg/1.25 gram (1.62 %) gel in metered-dose pump gel Indications:Hypogonadism in maleApply 2 Pump (40.5 mg) topically in the morning. Apply to skin of shoulder and/or upper chest, every morning, as directed. 75 g Discontinued Active Problems ProblemNoted DateDiagnosed DateFoot pain, right04/28/2025rthritis of right ankle04/28/2025Nonsustained ventricular /02/2025Shortness of breath 02/17/2025Encounter for screening for malignant neoplasm of zjfghhli96/18/2025 Arthritis, tdpuquvqzv31/03/2025Orthostatic pfulsqfgq29/12/2024Incomplete bladder uxaxequt46/27/2024Urge urinary ajcdchdvezgk83/27/9114Gnckcrf67/30/2024ystitis hravvqw1403/17/2024ody mass index (BMI) 32.0-32.9, adult Carotid bruithronic bronchitis, luoxenyhrkvt82/25/2024 03/12/2024GERD (gastroesophageal reflux disease)Lumbar lklvhlxyfll84/25/630465/25/2024Nicotine dependence, cigarettes, in remission /Other obesity due to excess jxxampte95Type 2 diabetes mellitus with nsgtcblcicyka53Lumbar stenosis with neurogenic ihrtwruofasz98Type 2 diabetes mellitus with diabetic ipdejnatugdlgo50Spinal stenosis of lumbar region with neurogenic bddofgoxbhjk34/04/202403/02/2024Sleep apnea Irregular heart nwyzwy29History of open heart surgery History of myocardial nwtdrtmbom41Enlarged sweqpncd80PAP (continuous positive airway pressure) gkkaetnnkf78arpal tunnel ihzfummb69nemia KD (chronic kidney disease)06/04/2023Suprapubic discomfort 08/14/2022enign prostatic hyperplasia with lower urinary tract symptoms 08/14/2022Erectile vuvdzqlmqqs20/27/2022Lung aonyqk2908/14/2022Hypogonadism in male2Chronic iehepucwmpv48/07/2022Generalized ischemic myocardial cviwkyzexbr36/07/2022Chronic rmzkaav16/07/2022Disorder of lipid metabolism 08/31/2014Coronary arteriosclerosis of [place] coronary artery of [place] heart07/21/2014Prostate cancer eurgsfurc06/13/2014Chest pain04/08/2013Type 2 diabetes mellitus without tpnwtsqwmweo31/09/1685Clfpypeezxencd64/09/2013DOE (dyspnea on exertion)02/24/2013Primary wmebwynxwdtj43/09/2013Coronary artery disease involving [place] coronary artery of [place] heart02/24/2013Seizure 01/27/2013Kidney stone01/27/2013Generalized anxiety idojzgvv04/12/2013Gallstone 01/27/2013Depressive lhkvyuta32/12/2013Chronic obstructive lung disease 01/27/2013 Resolved Problems ProblemNoted DateDiagnosed DateResolved DateHypertensive vdtcqcsu30/14/2014 12/09/2023Type 1 diabetes vbzazkin02 Encounters DateTypeDepartmentCare EnntAqhyeseudhv15/03/2025Orders Only [facility] Transplant [address] [place] [phone] Sriram aNsh CNP Hypogonadism in male (Primary Dx); Screening PSA (prostate specific antigen)10/10/2025Refill [facility] Urology [address] [place] [phone] Sriram Nash CNP Hypogonadism in male08/16/2025[facility] [address] [place] [phone] Fredis Ariza MD Erectile dysfunction, unspecified erectile dysfunction type (Primary Dx); Hypogonadism in male08/10/2025 11:00 AM EDTOffice Visit [facility] [address] [place] [phone] Sriram Nash CNP Chronic bacterial prostatitis (Primary Dx); Benign prostatic hyperplasia with incomplete bladder emptying; Suprapubic pressure; Bladder pain; Erectile dysfunction, unspecified erectile dysfunction type; Hypogonadism in malefrom Last 3 Months Immunizations ImmunizationAdministration DatesNext DueInfluenza, High Dose Seasonal, Preservative Free10/20/2018,07/19/2017Influenza, Seasonal, Quadrivalent, Xwofolnkla91/24/2023,09/05/2022Influenza, Kxvssbhraph28/19/2022,08/21/2021, 07/27/2020,08/26/2019,10/29/2018,07/19/2017,10/09/2016,10/18/2015Influenza, injectable, quadrivalent, preservative free09/30/2015Influenza, seasonal, cbgesalmdy55/14/2020,09/11/2013Moderna SARS-CoV-2 Yuwiqmuchre57/12/2022Pfizer Covid-19 Vaccine, 12&up3Pfizer SARS-CoV-2 Fmqwfhkukml38/12/2022 Pneumococcal Conjugate PCV 13111/20/2014Pneumococcal Polysaccharide PPV23 11/07/2012RSV, Adult, Nodefdvriea68/05/2023Zoster, Rmtsieoazoy17/25/2020Zoster, live08/12/2020,10/04/2011 Family History Medical HistoryRelationNameCommentsCoronary artery diseaseBrotherProstate [...] 02/02/2025Sexually AbusedNot on file02/02/2025PHQ-2AnswerDate RecordedPatient Health Questionnaire-2 Diijg045UT Safety & EnvironmentAnswerDate RecordedFear of Current or Ex-PartnerNot on file01/09/2024Emotionally AbusedNot on file01/09/2024hysically AbusedNot on file01/09/2024Sexually AbusedNot on file01/09/2024hysically or Sexually AbusedNot on file01/09/2024Sex and Gender InformationValueDate RecordedSex Assigned at ZttqwQmfi98/11/2023 6:08 AM EST Legal WhzYqpx3505/16/2022 10:15 PM EDTGender WuaoekchXzzg00/11/2023 6:08 AM EST Sexual RomndfovhhsPmvzxjtl26/09/2025 10:40 PM EST Last Filed Vital Signs Vital SignReadingTime TakenCommentsBlood Ttrpvsqz873/6609 11:24 AM EDT Wrnda1588 11:24 AM AESKihztpvkdsu09.6 ??C (97.9 ??F)08/10/2025 11:24 AM EDTRespiratory Rsdv541103/25/2025 6:30 PM EDTOxygen Nlisjczpqi10%07/20/2025 2:35 PM EDTInhaled Oxygen Concentration--Sgsjph758 kg (231 lb 6.4 oz)08/10/2025 11:24 AM BZSUoukka712.9 cm (6')08/10/2025 11:24 AM EDTBody Mass Index31.38008/10/2025 11:24 AM EDT Plan of Treatment DateTypeDepartmentCare Team (Latest Contact Info)Thfmdvsehxv60/15/2026 10:15 AM ESTFollow-Up [facility] [address] [place] [address] Sriram Nash, IMPORT EXPORT MANAGER [address] [place] [address] Health MaintenanceDue DateLast DoneCommentsDiabetes: Hemoglobin A1C1948 Medicare Annual Wellness (AWV)1948Diabetes: Retinopathy Screening 1958Diabetes: Urine Protein Xzjhuzjnw57/17/1967Adult Itfnoyi6503/04/1970 Pneumococcal Vaccine: 50+ Years (3 of 3 - PCV20 or PCV21), 11/07/2012Zoster Vaccines (2 of 2), 08/12/2020, 10/04/2011 COVID-19 Vaccine ( season), 10/11/2023, 09/28/2022, Additional history existsInfluenza Vaccine (#1)/05/2024, 10/11/2023, 09/05/2022, Additional history existsDepression Njymdholo18/18/2026 02/02/2025Fall Risk Bwngfgawn63HIB VaccinesAged OutNo longer eligible based on patient's [...] / LotStentStentHeart Procedures Procedure NamePriorityDate/TimeAssociated DiagnosisCommentsURINALYSIS WITH UIBMTSGPNDSEeajjyv75/23/2025 12:42 PM EDT Suprapubic pressure Bladder pain URINE BTTVCRHJqfdopg57/23/2025 12:42 PM EDT Suprapubic pressure Bladder pain from Last 3 Months Results * (ABNORMAL) Urinalysis with microscopic (08/10/2025 12:42 PM EDT)ComponentValue Ref RangeTest MethodAnalysis TimePerformed AtPathologist SignatureColor, Urine YellowColorless, Yellow, Light-Cgczff7308/10/2025 1:36 PM [facility] ([facility] [employer])Clarity, WzhsyLhppeSvkvz17/23/2025 1:36 PM [facility] ([facility])Specific [place], Urine1.0191.010 - 1.9390108/10/2025 1:36 PM [facility] ([employer] [facility])pH, Urine5.55.0 - 8.0 pH08/10/2025 1:36 PM [facility] ([facility])Leukocytes, UszelNyevolxnOyjrycqb80/23/2025 1:[address] [facility] ([facility])Nitrite, MxdhkKtxzusujUdisxbib36/23/2025 1:[address] [facility] ([facility])Protein, UrineNegativeNegative mg/dL08/10/2025 1:36 PM [facility] ([facility])Glucose, UrineNormalNormal mg/dL08/10/2025 1:36 PM [facility] ([facility])Bilirubin, UrineNegativeNegative 08/10/2025 1:36 PM [facility] ([facility])Ketones, UrineNegativeNegative mg/dL08/10/2025 1:36 PM [facility] ([facility])Urobilinogen, UrineNormal Normal mg/dL08/10/2025 1:36 PM [facility] ([facility])Blood, Urine CwoeeujcNrgkdibs75/23/2025 1:36 PM [facility] ([facility])RBC, Urine0-2 None Seen, 0-2 /HPF08/10/2025 1:36 PM [facility] ([facility])WBC, Urine 0-2None Seen, 0-2 /HPF08/10/2025 1:36 PM [facility] ([facility])Squamous Epithelial, UrineNone SeenNone Seen, Occasional, Few /[facility]08/10/2025 1:36 PM [facility] ([facility])Mucus, UrineOccasionalNone Seen, Occasional, Few /LP08/10/2025 1:36 PM [facility] ([facility])Casts, UrinePresent(A)None Seen /LPF08/10/2025 1:36 PM [facility] ([facility])Hyaline Casts, UA 11-20(A)0 - 2 /LPF08/10/2025 1:36 PM [facility] ([facility])Specimen (Source)Anatomical Location / LateralityCollection Method / VolumeCollection TimeReceived TimeUrineUrine specimen obtained by clean catch procedure / UnknownNon-blood Collection / Garontx1008/10/2025 12:42 PM EDT08/10/2025 12:42 PM EDT Narrative Authorizing ProviderResult TypeResult StatusSriram Nash CNPLAB URINE ORDERABLESFinal ResultPerforming OrganizationAddressCity/State/ZIP CodePhone Number [facility] ([facility]) [address] [place], [place] [phone] * Urine culture, routine (08/10/2025 12:42 PM EDT)ComponentValueRef RangeTest MethodAnalysis TimePerformed AtPathologist SignatureUrine CultureNo growth at 48 hours JOSEPH 08/12/2025 7:[address] [facility] ([place])Specimen (Source)Anatomical Location / LateralityCollection Method / VolumeCollection TimeReceived TimeUrine Urine specimen obtained by clean catch procedure / UnknownNon-blood Collection / Gdjzvmc7508/10/2025 12:42 PM EDT08/10/2025 12:42 PM EDT Narrative Authorizing ProviderResult TypeResult StatusArsen Charity CNPLAB MICROBIOLOGY - GENERAL ORDERABLESFinal ResultPerforming OrganizationAddressCity/State/ZIP Code Phone Number [facility] ([place]) [address] [place], [place] [phone] from Last 3 Months Insurance Care Teams Team MemberRelationshipSpecialtyStart DateEnd Cristobal Michel DO [address] [place] [address] PCP - General07/09/22 Fredis Ariza MD [address] [place] [address] [place] [address] Consulting PhysicianTransplant Surgery07/25/22 Aleida Wayne PA [address] [place] [address] [place] [address] Physician AssistantUrology05/28/23 Moises Aguirre CNP [address] [place] [address] [place] [address] Nurse PractitionerUrology2
--- OUTSIDE RECORDS SUMMARY | 2025-11-05 12:38 | XMS_ITS | Clinical Summary ---
Author Organization [employer] tem Address [id number] [address] 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 TAKE 1 TABLET EVERY DAY BY ORAL ROUTE.Active unrvxoahhl-ubsrexiw-fpequowdlt (BREZTRI AEROSPHERE) 160-9-4.8 mcg/actuation HFA aerosol inhaler [...] (5 mg total) by mouth in the morning.5Active Active Problems ProblemNoted DateDiagnosed DateAcute kidney injury superimposed on stage 3b chronic kidney edyhtxb3608/29/2025AD S/P percutaneous coronary angioplasty 08/29/20250177Jfcubfhwttqb24/12/2025Normal anion gap metabolic ztjiquen21/12/2025 Orthostatic zkgovyl2708/29/2025Diarrhea of presumed infectious cvqmqf5408/29/2025 History of ventricular guarsqhctxt89/12/2025rthritis, noaevpjjcr25/03/2025OSA on CPAP01/18/2025Orthostatic oqozupnig12/12/2024hronic bronchitis, mucopurulent 03/12/2024GERD (gastroesophageal reflux disease)03/12/2024olyneuropathy due to type 2 diabetes jzomcaal48/25/2024Type 2 diabetes qripbtmo38/25/2024nemia 06/04/2023enign prostatic hyperplasia with lower urinary tract symptoms 08/14/2022Generalized anxiety nncggxya00/07/2022enign essential hypertension 07/30/2014COPD (chronic obstructive pulmonary disease)01/27/2013Recurrent major depressive disorder, in partial vlqggyolz59/12/2013 Resolved Problems ProblemNoted DateDiagnosed DateResolved DateNonsustained ventricular tachycardia Encounters DateTypeDepartmentCare UzseOqgkwoucbvu75/11/2025 6:41 PM EDT - 08/30/2025 3:45 PM EDTHospital Encounter [facility] [address] [place] [address] Franko Colindres MD Banerjee, Sunita, MD Asif, Muhamid M, MD Syncope, unspecified syncope type (Primary Dx); Hyperkalemia Discharge Disposition: Home08/28/2025Travelfrom Last 3 Months Social History Tobacco UseTypesPacks/DayYears UsedDateSmoking Tobacco: NeverSmokeless Tobacco: Never Tobacco Cessation:Counseling Given: Not Answered Alcohol UseStandard Drinks/WeekCommentsNot Currently0 (1 standard drink = 0.6 oz pure alcohol)ChildcareAnswerDate UlgdjpofSagrrzqxlXgefeap55/12/2019Employment AnswerDate VgezofevXymqleboxeDqzvozz73/12/2019Hunger ScreeningAnswerDate RecordedWithin the past 12 months we worried whether our food would run out before we got money to buy more.Never True08/30/2025Within the past 12 months the food we bought just didn't last and we didn't have money to get more.Never True08/30/2025Sex and Gender InformationValueDate RecordedSex Assigned at Not on fileLegal VrnHoyr1506/23/2015 11:23 AM EDTGender IdentityNot on fileSexual OrientationNot on file Last Filed Vital Signs Vital SignReadingTime TakenCommentsBlood Nxyzisvk604/5208/30/2025 11:20 AM EDT Ghapo575008/30/2025 11:20 AM UDHKbsqikmsopy82.9 ??C (98.4 ??F)08/30/2025 11:20 AM EDTRespiratory Huly8922 11:20 AM EDTOxygen Boguthixhu27%08/30/2025 11:20 AM EDTInhaled Oxygen Concentration--Omvgxq948.3 kg (229 lb 14.4 oz)08/28/2025 10:25 PM RUOJitnhp675.9 cm (6' 0.01 )08/28/2025 10:25 PM EDTBody Mass Index31.17 08/28/2025 10:25 PM EDT Plan of Treatment Health MaintenanceDue DateLast DoneCommentsDepression Xsbblcucv65/17/1960 DTaP,Tdap and Td Vaccines (1 - Tdap)1967Fall Risk Ekdqejilo90/17/2013 Zoster (Shingles) Vaccine (3 of 3), 10/04/2011COVID-19 Vaccine ( season)/05/2024, 10/11/2023, 09/28/2022, Additional history existsInfluenza Bulhvfj97/05/2024, 10/11/2023, 09/05/2022, Additional history existsTobacco Iwxangcic74RSV ( or age 60+ yrs)Wggfmasdu75/05/2023 Goals GoalPatient Goal TypeAssociated ProblemsRecent ProgressPatient-Stated?Author home GeneralYesHoman, Magy, 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 Note: Evaluation of progress towards goal: discharging today Medical Devices Not on file Procedures Procedure NamePriorityDate/TimeAssociated DiagnosisCommentsPOTASSIUMRoutine 08/30/2025 1:07 PM EDT ECHO COMPLETE W IHROMKNEQlzvirh05/13/2025 1:00 PM EDT CBC WITH AUTO XMPNFGVBQSKRLbcvkmw29/13/2025 4:23 AM EDT AZFNBWYYWBarlypk90/13/2025 4:23 AM EDT COMPREHENSIVE METABOLIC MIRVFQwuoxto23/13/2025 4:[address] ABDOMEN WO RAIXTikadwd09/12/2025 1:48 PM EDT OSMOLALITY, VPXQOJkglhpz50/12/2025 12:05 PM EDT OEBPHXCBDFBbtlnsm12/12/2025 12:05 PM EDT UREA RANDOM, PUBSXTthkoyh56/12/2025 12:05 PM EDT SODIUM, URINE, GUIVKMJhlosuu79/12/2025 12:05 PM EDT URINE CREATININE,MPYJFCTveoakh06/12/2025 12:05 PM EDT PROTEIN, URINE, UDOAFNRhyhdbj81/12/2025 12:05 PM EDT EXTRA TUBES BLUE IWCNwdixro43/12/2025 4:19 AM EDT C-REACTIVE PROTEINAdd-On08/29/2025 4:19 AM EDT EXTRA CSLIKYopfdmg32/12/2025 4:19 AM EDT CBC WITH AUTO WKSIXTWKAWUIGtxhrvb25/12/2025 4:19 AM EDT GSOMPFKEGXunlkmr10/12/2025 4:19 AM EDT COMPREHENSIVE METABOLIC UBWRLJmcvcfv17/12/2025 4:19 AM EDT ECG 12-ZNRFPZIN97/11/2025 9:51 PM EDT TROP I, HIGH SENSITIVITY 1 JSSKHMGM98/11/2025 8:21 PM EDT EXTRA TUBES BLUE OONDhhpnva78/11/2025 7:22 PM EDT EXTRA QPUUBHxrrwau84/11/2025 7:22 PM EDT TROPONIN I, HIGH SENSITIVITY 0 FALAEFHZ25/11/2025 7:18 PM EDT XZYCEOXDBBHCP76/11/2025 7:18 PM EDT TROPONIN I, HIGH SENSITIVITY 0 GVZXIKCK80/11/2025 7:18 PM EDT COMPREHENSIVE METABOLIC VUQQDRKQA12/11/2025 7:18 PM EDT CBC WITH AUTO FMWFRUTZTWHAUAJV95/11/2025 7:18 PM EDT XR CHEST 1 KCLPPB5608/28/2025 7:03 PM EDT PM ED CRITICAL ZMUGAydwskh05/11/2025 6:53 PM EDT ECG 12-NXOFBYUC50/11/2025 6:47 PM EDTfrom Last 3 Months Results * Potassium (08/30/2025 1:07 PM EDT)ComponentValueRef RangeTest MethodAnalysis TimePerformed AtPathologist SignaturePOTASSIUM4.93.5 - 5.0 mmol/L1 1:[address] [facility]ARY MEDICAL CENTERpecimen (Source)Anatomical Location / LateralityCollection Method / VolumeCollection TimeReceived Time BloodVenous blood / UnknownVenipuncture / Pjiuthu3408/30/2025 1:07 PM EDT 08/30/2025 1:13 PM EDT Narrative Authorizing ProviderResult TypeResult StatusTaeler Ferraro PICKLE SOLUTION MAKER-CNPLAB BLOOD ORDERABLESFinal ResultPerforming OrganizationAddressCity/State/ZIP CodePhone Number [facility] [address] [place] [address], * Echo complete W/ contrast (08/30/2025 1:00 PM EDT)ComponentValueRef RangeTest MethodAnalysis TimePerformed AtPathologist SignatureLVOT stroke xzaplc994.49ml XCELERALV Systolic Nclbuo83.66aKEPXHVTLQA21%NNQGWPURG1091 - 44 %XCELERALV Diastolic Hxubxq198.02fDFIGECGXBZSOi2.367.03 - 9.77 cmXCELERALVIDs3.874.08 - 6.18 cmXCELERAIVS1.380.6 - 1.1 cmXCELERAPW1.220.6 - 1.1 cmXCELERALVOT diameter 2.34ibODGQGLGFQV9.28cm/sXCELERAMV TDI E' (medial)4.54cm/sXCELERAE/A ratio1.14 XCELERAE wave deceleration sjqq757.00msecXCELERAMV Peak E Cyo945.00cm/sXCELERA MV Peak A Bkb544.00cm/sXCELERALA size5.80cmXCELERAAortic root3.00cmXCELERALA rvqgqi22.37dd4GRPXJNFYHBIY4.80cmXCELERAAV peak axn497.00cm/sXCELERALVOT peak vel1.22m/sXCELERAAV VTI43.90cmXCELERALVOT peak VTI29.00cmXCELERAAV mean gradient8.00mmHgXCELERAAV peak suycrnip03.10mmHgXCELERAAV valve area2.74 XCELERAValve area - Index1.2XCELERAMV pressure 1/2 time66.00msXCELERAMR max vel4.40m/sXCELERAMV valve area p 1/2 method3.66ks1CIAZKCXTW Peak Vel2.6m/s XCELERATR peak nkgqbkto26.46mmHgXCELERAPV peak gradient3.53mmHgXCELERALV ESV A2C90.10mLXCELERALV ESV A4C95.50mLXCELERALV RWT 2D45.52XCELERAEcho EF Butursore96%XCELERAAV Velocity Ratio0.66XCELERALeft Ventricle Mass 292.788603064402528dTHAORLDPhzabukocvqzcmej Septum Diastolic Thickness by 2D 13.699145504610333drMHFPHEBRBAK74.6cm/sXCELERARA area25.3da8FHAGQDUAZSAZM-2.05 XCELERAZLVIDD-4.36XCELERAEnergy loss index15.97XCELERAAnatomical Region LateralityModalityChestN/AUltrasoundSpecimen (Source)Anatomical Location [...] is normal. Authorizing ProviderResult TypeResult StatusSunikrystal Hernandez [facility] ECHO ORDERABLES Final Result * (ABNORMAL) CBC auto differential (08/30/2025 4:23 AM EDT) Only the most recent of3 resultswithin the time period is included. ComponentValueRef RangeTest MethodAnalysis TimePerformed AtPathologist Signature WBC7.04 - 11 x10E9/L1 5:26 AM [facility]THRBC Count3.71(L)4.1 - 5.7 X10E12/L1 5:26 AM [facility]THHemoglobin11.5(L)13 - 17 g/dL08/30/2025 5:26 AM [facility]THHematocrit33.6(L)39 - 50 %08/30/2025 5:26 AM [facility]V9180 - 100 fL08/30/2025 5:26 AM [facility]ONH31.027 - 34 pg08/30/2025 5:26 AM [facility] CANTONHC34.332 - 36 g/dL08/30/2025 5:26 AM EDCOMMUNITY REGIONAL MEDICAL CENTERRDW14.111.5 - 15 %08/30/2025 5:26 AM EDCOMMUNITY REGIONAL MEDICAL CENTERPlatelet Oanjt686247 - 450 X10E9/L1 5:26 AM EDT [facility]ITALMPV9.87 - 12 fL08/30/2025 5:26 AM EDT [facility]ITALNeutrophils %51.9%08/30/2025 5:26 AM EDT [facility]ITALLymphocytes %31.2%08/30/2025 5:26 AM EDT [facility]ITALMonocytes %9.4%08/30/2025 5:26 AM EDT [facility]ITALEosinophils %6.3%08/30/2025 5:26 AM EDT [facility]ENTERBasophils %1.2%08/30/2025 5:26 AM EDT [facility]ITALNeutrophils Absolute (A)3.61.5 - 6.6 10*3/uL 08/30/2025 5:26 AM EDCOMMUNITY REGIONAL MEDICAL CENTERLymphocytes Absolute2.2 1.0 - 3.5 10*3/uL08/30/2025 5:26 AM [facility] Monocytes Absolute0.70.0 - 0.9 10*3/uL08/30/2025 5:26 AM EDTPMOUNT CARMEL HEALTH SYSTEMEosinophils Absolute0.40.0 - 0.4 10*3/uL08/30/2025 5:26 AM EDT [facility]ITALBasophils Absolute0.10.0 - 0.2 10*3/uL 08/30/2025 5:26 AM [facility] NORTHDifferential Type AUTOMATED QSFHNPNOTVIY63/13/2025 5:26 AM [facility] Specimen (Source)Anatomical Location / LateralityCollection Method / Volume Collection TimeReceived TimeBloodVenous blood / UnknownVenipuncture / Unknown 08/30/2025 4:23 AM EDT1 5:20 AM EDT Narrative Authorizing ProviderResult TypeResult StatusStephannighat Scott PICKLE SOLUTION MAKER-CNPLAB BLOOD ORDERABLESFinal ResultPerforming OrganizationAddressCity/State/ZIP Code Phone Number [address] [address], * Magnesium (08/30/2025 4:23 AM EDT) Only the most recent of3 resultswithin the time period is included. ComponentValueRef RangeTest MethodAnalysis TimePerformed AtPathologist Signature MAGNESIUM2.21.8 - 2.6 mg/dL08/30/2025 5:42 AM EDMERCY [facility]ALTH FAIRFIELD HOSPITALpecimen (Source)Anatomical Location / LateralityCollection Method / VolumeCollection TimeReceived TimeBloodVenous blood / UnknownVenipuncture / Opqhfzc4408/30/2025 4:23 AM EDT1 5:20 AM EDT Narrative Authorizing ProviderResult TypeResult StatusStephanie Fuentes Scott PICKLE SOLUTION MAKER-CNPLAB BLOOD ORDERABLESFinal ResultPerforming OrganizationAddressCity/State/ZIP Code Phone Number [address] [place] [address], [place] * (ABNORMAL) Comprehensive metabolic panel (08/30/2025 4:23 AM EDT) Only the most recent of3 resultswithin the time period is included. ComponentValueRef RangeTest MethodAnalysis TimePerformed AtPathologist Signature GVYPVY098431 - 146 mmol/L1 5:42 AM EDTPMOUNT CARMEL HEALTH SYSTEMPOTASSIUM5.2(H)3.5 - 5.0 mmol/L1 5:42 AM EDTPMOUNT CARMEL HEALTH SYSTEMCHLORIDE10598 - 109 mmol/L1 5:42 AM EDTPMOUNT CARMEL HEALTH SYSTEMCARBON XBZJFNW50(L)22 - 32 mmol/L1 5:42 AM EDT [facility]ITALANION GBZ374 - 15 mmol/L1 5:42 AM [facility] NORTHBLOOD UREA VADJYGJT99(H)5 - 27 mg/dL 08/30/2025 5:42 AM [facility] NORTHCREATININE1.76(H)0.70 - 1.20 mg/dL08/30/2025 5:42 AM [facility] NORTHComment: METHOD TRACEABLE TO IDMS UPMSVXVFFCPIOKL637(H)65 - 99 mg/dL08/30/2025 5:42 AM [facility] NORTHCALCIUM8.68.5 - 10.5 mg/dL08/30/2025 5:42 AM [facility] NORTHTOTAL PROTEIN6.06.0 - 8.0 g/dL 08/30/2025 5:42 AM [facility] NORTHALBUMIN3.73.2 - 5.3 g/dL08/30/2025 5:42 AM [facility] NORTHALKALINE RMBNJWVKVJP9200 - 130 U/L1 5:42 AM [facility] NORTHAST14<=41 U/L1 5:42 AM [facility] ALT13<=40 U/L1 5:42 AM [facility] BILIRUBIN,TOTAL0.80.3 - 1.2 mg/dL08/30/2025 5:42 AM [facility] NORTHEGFR Non-Race Khzpnprhu09(L)>=60 ml/min/1.73sq.m1 5:42 AM [facility] NORTHComment: eGFR not reported due to non-numeric value for Creatinine. Reported eGFR is based on the CKD-EPI 2020 equation that does not use a race coefficient. Specimen (Source)Anatomical Location / LateralityCollection Method / Volume Collection TimeReceived TimeBloodVenous blood / UnknownVenipuncture / Unknown 08/30/2025 4:23 AM EDT1 5:20 AM EDT Narrative Authorizing ProviderResult TypeResult StatusStephanie Fuentes Scott PICKLE SOLUTION MAKER-CNPLAB BLOOD ORDERABLESFinal ResultPerforming OrganizationAddressCity/State/ZIP Code Phone Number [facility] [address] [place] [address], [place] * CT abdomen without contrast (08/29/2025 [...] on 08/29/2025 3:59 PM Authorizing ProviderResult TypeResult Nicolle Castellanos APRN-CNPIMG CT ORDERABLESFinal Result * Urine Creatinine,random (08/29/2025 12:05 PM EDT)ComponentValueRef RangeTest MethodAnalysis TimePerformed AtPathologist SignatureURINE CREATININE,RDM88.99 mg/dL08/29/2025 12:34 PM EDMERCY HEALTH FAIRFIELD HOSPITALpecimen (Source)Anatomical Location / LateralityCollection Method / VolumeCollection TimeReceived TimeUrineUrine / Qsjavos2208/29/2025 12:05 PM EDT1 12:12 PM EDT Narrative Authorizing ProviderResult TypeResult Nicolle Castellanos PICKLE SOLUTION MAKER-CNPURINE ORDERABLESFinal ResultPerforming OrganizationAddressCity/State/ZIP CodePhone Number [facility] [address] [place] [address], * Urea random, urine (08/29/2025 12:05 PM EDT)ComponentValueRef RangeTest Method Analysis TimePerformed AtPathologist SignatureURINE UREA NITROGEN,TWYPDH034 mg/dL08/29/2025 9:43 PM [facility] LABORATORYSpecimen (Source)Anatomical Location / LateralityCollection Method / VolumeCollection TimeReceived CeuzKvzmu58/12/2025 12:05 PM EDT1 12:12 PM EDT Narrative Authorizing ProviderResult TypeResult StatusHimanshu Castellanos PICKLE SOLUTION MAKER-CNPURINE ORDERABLESFinal ResultPerforming OrganizationAddressCity/State/ZIP CodePhone Number [facility] [address] [place] [address], * Sodium, urine, random (08/29/2025 12:05 PM EDT)ComponentValueRef RangeTest MethodAnalysis TimePerformed AtPathologist SignatureURINE SODIUM,HSNBDO76 mmol/L1 9:43 PM [facility] LABORATORYSpecimen (Source)Anatomical Location / LateralityCollection Method / VolumeCollection TimeReceived QjehWlrfm94/12/2025 12:05 PM EDT1 12:12 PM EDT Narrative Authorizing ProviderResult TypeResult StatusHimanshu Castellanos PICKLE SOLUTION MAKER-CNPURINE ORDERABLESFinal ResultPerforming OrganizationAddressCity/State/ZIP CodePhone Number [facility] [address] [place] [address], * Protein, urine, random (08/29/2025 12:05 PM EDT)ComponentValueRef RangeTest MethodAnalysis TimePerformed AtPathologist SignatureURINE PROTEIN, RANDOM (MG/L)60<120 mg/L1 12:38 PM EDCOMMUNITY REGIONAL [facility]ENTER Specimen (Source)Anatomical Location / LateralityCollection Method / Volume Collection TimeReceived XnswKqjnx53/12/2025 12:05 PM EDT1 12:12 PM EDT Narrative Authorizing ProviderResult TypeResult StatusHimanshu Castellanos PICKLE SOLUTION MAKER-CNPURINE ORDERABLESFinal ResultPerforming OrganizationAddressCity/State/ZIP CodePhone Number [facility] [address] [place] [address], * Osmolality, urine (08/29/2025 12:05 PM EDT)ComponentValueRef RangeTest Method Analysis TimePerformed AtPathologist SignatureURINE BFZGIMAAMC336135 - 1,300 mOsm/kg H208/29/2025 9:50 PM [facility] LABORATORYSpecimen (Source)Anatomical Location / LateralityCollection Method / VolumeCollection TimeReceived IyxzZmgqf47/12/2025 12:05 PM EDT1 12:12 PM EDT Narrative Authorizing ProviderResult TypeResult StatusJogerardo Castellanos PICKLE SOLUTION MAKER-CNPURINE ORDERABLESFinal ResultPerforming OrganizationAddressCity/State/ZIP CodePhone Number [facility] [address] [place] [address], * Urinalysis (08/29/2025 12:05 PM EDT)ComponentValueRef RangeTest MethodAnalysis TimePerformed AtPathologist CbbnbnhxxSNLGSHzvqqpRltsqs26/12/2025 12:29 PM EDT [facility]ITALTURBIDITYClearClear08/29/2025 12:29 PM EDT [facility]USPECIFIC GRAVITY1.0101.003 - 1.035 08/29/2025 12:29 PM EDTPMOUNT CARMEL HEALTH SYSTEMNITRITENegative Uxfbdtpo63/12/2025 12:29 PM EDCOMMUNITY REGIONAL MEDICAL CENTERPH,URINE6.0 5.0 - 8.510 12:29 PM EDCOMMUNITY REGIONAL MEDICAL CENTERLEUKOCYTE ZGIIHGOUIwxpwrebJpgrtjlk58/12/2025 12:29 PM EDCOMMUNITY REGIONAL MEDICAL CENTERPROTEINNegativeNegative08/29/2025 12:29 PM EDCOMMUNITY REGIONAL MEDICAL CENTERKETONES (URINE)TkzmqypeEpkbxlsn45/12/2025 12:29 PM EDT [facility]ITALUROBILINOGEN0.2 eu/dL0.2 eu/dL, 1.0 eu/dL 08/29/2025 12:29 PM EDTPMOUNT CARMEL HEALTH SYSTEMBILIRUBIN (URINE) FhdoynbmMvxbzfuf25/12/2025 12:29 PM EDTPMOUNT CARMEL HEALTH SYSTEM BLOOD/FVVMmhzpfcdYzqpowkd48/12/2025 12:29 PM EDCOMMUNITY REGIONAL MEDICAL CENTERGLUCOSE (URINE)NegativeNegative, 250 mg/dL08/29/2025 12:29 PM EDT [facility]AMPUSpecimen (Source)Anatomical Location / LateralityCollection Method / VolumeCollection TimeReceived TimeUrineUrine / Hbnadkn3908/29/2025 12:05 PM EDT1 12:12 PM EDT Narrative Authorizing ProviderResult TypeResult StatusHimanshu Castellanos PICKLE SOLUTION MAKER-CNPURINE ORDERABLESFinal ResultPerforming OrganizationAddressCity/State/ZIP CodePhone Number [address] [place] [address], [place] * Light Blue Top (08/29/2025 4:19 AM EDT) Only the most recent of2 resultswithin the time period is included. ComponentValueRef RangeTest MethodAnalysis TimePerformed AtPathologist Signature Extra TubeAuto Lznzwrwt56/12/2025 6:01 AM [facility] Specimen (Source)Anatomical Location / LateralityCollection Method / Volume Collection TimeReceived TimeBloodVenous blood / Hjhmfcq8708/29/2025 4:19 AM EDT 08/29/2025 4:57 AM EDT Narrative Authorizing ProviderResult TypeResult StatusSushandra GOETZ BLOOD ORDERABLESFinal ResultPerforming OrganizationAddressCity/State/ZIP CodePhone Number [address] [place] [address], [place] * C-reactive protein (08/29/2025 4:19 AM EDT)ComponentValueRef RangeTest Method Analysis TimePerformed AtPathologist SignatureC REACTIVE PROTEIN<0.5<=0.7 mg/dL08/29/2025 1:09 PM [facility]ITALpecimen (Source)Anatomical Location / LateralityCollection Method / VolumeCollection TimeReceived TimeBloodVenous blood / UnknownVenipuncture / Wxzrspf0508/29/2025 4:19 AM EDT1 4:55 AM EDT Narrative Authorizing ProviderResult TypeResult StatusSunikrystal Hernandez MDLAB BLOOD ORDERABLESFinal ResultPerforming OrganizationAddressCity/State/ZIP CodePhone Number [address] [place] [address], [place] * Repeat ECG 12 lead (08/28/2025 9:51 PM EDT) Only the most recent of2 resultswithin the time period is included. Specimen (Source)Anatomical Location / LateralityCollection Method / Volume Collection TimeReceived Time08/28/2025 9:51 PM EDT Narrative [facility] - 08/29/2025 1:26 PM EDT Authorizing ProviderResult TypeResult StatusRachel D Jon PICKLE SOLUTION MAKER-CNPECG ORDERABLESFinal ResultPerforming OrganizationAddressCity/State/ZIP CodePhone Number [facility] * Troponin I, High Sensitivity 1 Hour (08/28/2025 8:21 PM EDT)ComponentValueRef RangeTest MethodAnalysis TimePerformed AtPathologist SignatureTROPONIN I, HIGH SENSITIVITY8<21 ng/L1 8:50 PM EDCOMMUNITY REGIONAL [facility]ICAL CENTER Specimen (Source)Anatomical Location / LateralityCollection Method / Volume Collection TimeReceived TimeBloodVenous blood / UnknownVenipuncture / Unknown 08/28/2025 8:21 PM EDT1 8:23 PM EDT Narrative Authorizing ProviderResult TypeResult StatusRachel D Jeredcindyner PICKLE SOLUTION MAKER-CNPLAB BLOOD ORDERABLESFinal ResultPerforming OrganizationAddressty/State/ZIP CodePhone Number [address] [address], * Troponin I, High Sensitivity 0 Hour (08/28/2025 7:18 PM EDT)ComponentValueRef RangeTest MethodAnalysis TimePerformed AtPathologist SignatureTROPONIN I, HIGH SENSITIVITY7<21 ng/L1 7:54 PM EDCOMMUNITY REGIONAL [facility]ICAL [facility]ENTER Specimen (Source)Anatomical Location / LateralityCollection Method / Volume Collection TimeReceived TimeBloodVenous blood / UnknownVenipuncture / Unknown 08/28/2025 7:18 PM EDT1 7:20 PM EDT Narrative Authorizing ProviderResult TypeResult StatusRachel D Jeredcindyner PICKLE SOLUTION MAKER-CNPLAB BLOOD ORDERABLESFinal ResultPerforming OrganizationAddressty/State/ZIP CodePhone Number [place] [address] [place] [address], [place] * X-ray chest 1 view (08/28/2025 [...] on 08/28/2025 7:05 PM Authorizing ProviderResult TypeResult StatusRamaria antonia KRAUSIMG DIAGNOSTIC IMAGING ORDERABLESFinal Result * Critical Care (08/28/2025 6:53 PM EDT) Narrative Franok Colindres MD - 08/28/2025 6:53 PM EDT Franko Colindres MD 08/28/2025 11:57 PM Critical Care Performed by: NAYANA Peck Authorized by: Franko Colindres MD ?? Critical [...] with: admitting provider ?? Authorizing ProviderResult TypeResult StatusPaul Frannie Colindres MDPROCEDURE/MINOR SURGICAL ORDERABLESFinal Result from Last 3 Months Insurance Advance Directives * Full Code (Latest Code Status on File) Date ActivatedDate CkvtggjlmfcIgwifiyt24/11/2025 9:09 08/30/2025 6:19 PM Care Teams Team MemberRelationshipSpecialtyStart DateEnd Date Cristobal Michel DO [address] [place] [address] PCP - GeneralInternal Tnwhjhsd24/11/25
--- OUTSIDE RECORDS SUMMARY | 2025-11-05 12:38 | XMS_ITS | Clinical Summary ---
Author Organization [facility] Address [address] [place] [address] Care Team Providers Care Leaflet Or Newspaper Deliverer Name Role Phone Cristobal Michel Primary Care Provider [phone] Allergies Active AllergyReactionsCriticalityNoted DateCommentsHydralazineOther, SzaaxozijmqcUbk30/07/2022 Other reaction(s): chest pain JvppodqyraWzglnaac21/10/2025StatinsOther,Xkrfgcw0201/18/2025 Other Reaction(s): muscle ache Medications MedicationSigDispense QuantityRefillsLast [...] tadalafil (Cialis) 5 MG tablet Daily as ondqyi0702/10/2024ctive Testosterone 1.62 % gel PLACE 2 PUMPS ON THE SKIN ONCE EVERY MVMTXLK3002/10/2024ctive Myrbetriq 50 MG 24 hr tablet TAKE [...] dayActive Active Problems ProblemNoted DateDiagnosed DateNonsustained ventricular clvtzqnwysu01/02/2025 Arthritis, qklqyvgczd62/03/2025ute imhmqg8901/18/2025History of heart attack 01/18/2025High mkzhwaougoi37/03/2025Medicare annual wellness visit, subsequent 01/18/2025OSA (obstructive sleep apnea)01/18/20251574Knvwpmdo30/03/2025Orthostatic mdgqarudc55/12/2024Incomplete bladder wqhnyuxz14/27/2024Urge urinary rwwtbduprhwe82/27/2024ystitis gssskei6903/17/2024ody mass index (BMI) 32.0-32.9, adult03/12/2024arotid bruit03/12/2024 Overview (01/18/2025): Carotid US: < 50% B/L - 12/2023 Chronic bronchitis, afzgzadckndz98/25/2024GERD (gastroesophageal reflux disease) 03/12/2024Lumbar rzsvdizcloq72/25/2024Nicotine dependence, cigarettes, in cqgdiaqwv76/25/2024Other obesity due to excess irqmxvdq21/25/2024Type 2 diabetes mellitus with diabetic xbjkanebnqqhjx31/25/2024Spinal stenosis, lumbar region with neurogenic wucpvlcyzybv50/04/1906Likkdr26/18/2023arpal tunnel syndrome 3Chronic kidney jurdpyt4706/04/2023PAP (continuous positive airway pressure) ktccswidrr88/18/2023Enlarged nyumgmsj56/18/2023History of open heart dqsfzho2206/04/2023Irregular heart knzmzd7406/04/2023enign prostatic hyperplasia with lower urinary tract zrzqnexn81/27/2022Erectile jfjkhugmqxw78/27/2022 Hypogonadism in male08/14/2022Lung cszmmm7208/14/2022 Overview (01/18/2025): CT: 7mm RML - 02/2023, 7mm RML - 08/2024 Suprapubic paersshthg49/27/2022Chronic nfoofwt4907/25/2022Generalized ischemic myocardial ebmfrwdfhvf17/07/2022isorder of lipid wsetopbwnz18/14/2014enign essential stgsyadgxffv25/12/2014Coronary arteriosclerosis of [place] coronary artery of transplanted heart07/21/2014DOE (dyspnea on exertion)02/24/2013Chronic obstructive lung arswrbk8301/27/2013Depressive tozvpugz71/12/2013Gallstone 01/27/2013Generalized anxiety iudrgpew38/12/2013Kidney stone01/27/2013Seizure 01/27/2013 Family History Medical HistoryRelationNameCommentsCancerFatherVernon ClausHearing lossMother Judith ClausHeart failureMotherClara ClausRelationNameStatusCommentsFatherVernon ClausDeceasedMotherClara ClausDeceased Social History Tobacco UseTypesPacks/DayYears UsedDateSmoking Tobacco: WeukhqFqoijnhqsf765 11/18/1963 - 10/12/1983Smokeless Tobacco: Never Tobacco Cessation:Counseling Given: Not Answered Alcohol UseStandard Drinks/WeekCommentsNever0 (1 standard drink = 0.6 oz pure alcohol)Sex and Gender InformationValueDate RecordedSex Assigned at BirthNot on fileLegal ViyVofh8201/30/2023 8:12 PM EDTGender IdentityNot on fileSexual OrientationNot on file Last Filed Vital Signs Vital SignReadingTime TakenCommentsBlood Znlubqxd422/62002/24/2025 1:25 PM EDT Mrxni2729/09/2025 1:25 PM EDTTemperature--Respiratory Rate--Oxygen Saturation-- Inhaled Oxygen Concentration--Hzgknf006 kg (241 lb)02/24/2025 1:25 PM EDTHeight 182.9 cm (6')02/24/2025 1:25 PM EDTBody Mass Index32.69002/24/2025 1:25 PM EDT Plan of Treatment Health MaintenanceDue DateLast DoneCommentsPneumococcal Vaccine: 65+ Years (3 of 3 - PCV20 or PCV21), 11/07/2012COVID-19 Vaccine ( season)/05/2024, 10/11/2023, 09/28/2022, Additional history exists Influenza Vaccine (#1)/05/2024, 10/11/2023, 09/05/2022, Additional history exists Insurance Care Teams Team MemberRelationshipSpecialtyStart DateEnd Date Cristobal Michel DO PCP - GeneralInternal Medicine11/23/24
--- NOTE | 2025-11-05 12:39 | XR_ITS ---
The [address] [address] Patient Name: TRAE MONROE MRN: [id number] date: 1950 Sex: M Assigned Patient Location: [facility] Current Patient Location: [facility] Accession/Order Number: [id number] Exam Date: 11/05/2025 12:50 Report Date: 11/05/2025 13:33 At the request of: ARIAN KEARNS DO Procedure: XR knee RT 4V RIGHT KNEE - 5 views CLINICAL DATA: Chronic right knee pain and instability. COMPARISON: 05/05/2020 AP, lateral, both oblique and AP standing view to include both knees were obtained. There are no acute fractures or dislocation. There is slight narrowing of the medial tibiofemoral joint compartments, greater on the left. There is mild squaring off the articular margins. A trace amount of joint fluid is visualized. No focal soft tissue swelling is noted. XR/XR knee RT 4V IMPRESSION: MINOR DEGENERATIVE CHANGE. NO ACUTE BONY FINDINGS. Impression dictated by: Amy Johnson M.D. 11/05/2025 1:33 PM Dictation Location: [place] [address] Electronically authenticated by: [id number] Y Date: 11/05/2025 13:33
== END 2025-11-05 12:33 | disposition home or self-care (01) ==
LOC: RAD 12:35
PROVIDERS: PCP Internal Medicine; Visit Provider Internal Medicine
DX: M25.561 Pain in right knee (principal); M23.91 Unspecified internal derangement of right knee
CPT/HCPCS: 73564